=== PATIENT | female | born 1955 | race Caucasian/White ===

== ENCOUNTER 2017-07-03 14:06 | Emergency (ER) | payer OTHER, MEDICARE, SELFPAY | END 2017-07-03 16:39 | disposition home or self-care (01) | PROVIDERS: Emergency Provider Emergency Medicine; Family Provider Family Medicine; Visit Provider Emergency Medicine | DX: S32.020A Wedge compression fracture of second lumbar vertebra, initial encounter for closed fracture (principal); W01.0XXA Fall on same level from slipping, tripping and stumbling without subsequent striking against object, initial encounter; Y92.010 Kitchen of single-family (private) house as the place of occurrence of the external cause; I10 Essential (primary) hypertension; J44.9 Chronic obstructive pulmonary disease, unspecified; Z72.0 Tobacco use | CPT/HCPCS: 72131; 96372; 99283; J2405 ==

== ENCOUNTER → 2017-07-16 12:49 | Outpatient (CLI) | payer OTHER, MEDICARE, SELFPAY ==
--- NOTE | 2017-07-16 13:08 | XR_ITS ---
XR DEXA axial skeleton HISTORY: ITS.REASON: OSTEODPOROSIS ORDERING PHYSICIAN: Fito Leo MD PATIENT AGE: 62 years COMPARISON: None FINDINGS: The BMD measured at the left femoral neck is 0.778 g/cm squared with a T score of -1.9. This is considered Osteopenic according to the World Health Organization criteria. Fracture risk is Moderate. Treatment is advised. IMPRESSION: Osteopenia. Recommend follow-up exam July 2019
--- NOTE | 2017-07-16 13:23 | MR_ITS ---
MR lumbar spine wo con ORDERING PHYSICIAN: Fito Leo MD PATIENT AGE: 62 years INDICATION: Low back pain following injury, lumbar fracture evaluation, abnormal CT scan COMPARISON: CT scan of 07/03/2017 TECHNIQUE: Multiplanar multiecho sequences without contrast. FINDINGS: Spinal cord ends at the L1-L2 level. Degenerative disc disease T11-T12 with mild bulging disc with canal stenosis of 9 mm with minimal contour deformity along the internal aspect of the cord. T12-L1: Degenerative disc disease. L1-L2: Acute wedge compression changes involve the L2 vertebral body with loss of height anteriorly of approximately 30% with kyphosis at L1-L2 and mild retropulsion of the posterior superior aspect of L2 x 3 mm. Facet hypertrophic changes are present at this level as well with associated bulging disc with resultant moderate right lateral recess narrowing. The bulging disc is slightly eccentric toward the right abutting the cauda equina anteriorly and on the right. L2-L3: Mild bulging disc L3-L4: Mild origin disc along with facet and ligamentum hypertrophy with bilateral lateral recess narrowing L4-5: Minimal bulging disc with facet and ligamentum hypertrophy with mild bilateral lateral recess narrowing. L5-S1: Minimal bulging disc along facet ligamentum flavum hypertrophy. IMPRESSION: 1. Multilevel lower thoracic and lumbar spondylosis with bulging disc, degenerative disc disease, and facet and ligamentum hypertrophy. Please see above for detailed description at each level 2. Acute wedge compression changes involve the L2 vertebral body with loss of height anteriorly of approximately 30% with kyphosis at L1-L2 and mild retropulsion of the posterior superior aspect of L2 x 3 mm. Facet hypertrophic changes are present at this level as well with associated bulging disc with resultant moderate right lateral recess narrowing. The bulging disc is slightly eccentric toward the right abutting the cauda equina anteriorly and on the right.
== END ==
PROVIDERS: Family Provider Family Medicine; PCP Family Medicine; Visit Provider Family Medicine
DX: M80.80XD Other osteoporosis with current pathological fracture, unspecified site, subsequent encounter for fracture with routine healing (principal)
CPT/HCPCS: 72148; 77080

== ENCOUNTER → 2017-07-16 14:48 | Outpatient (POV) | payer OTHER, MEDICARE, SELFPAY ==
[2017-07-16 15:10] VITALS: BP 188/98; PULSE 88; RESP 20; O2SAT 89
--- NOTE | 2017-07-16 15:24 | HMH.PMCON ---
Assessment and Plan (1) Low back pain Current visit: Yes Status: Acute Qualifiers: Chronicity: acute Back pain laterality: bilateral Category: Medical Code(s): M54.5 - Low back pain (2) Compression fracture of L2 lumbar vertebra Current visit: Yes Status: Acute Qualifiers: Encounter type: initial encounter Fracture type: closed Qualified Code(s): S32.020A - Wedge compression fracture of second lumbar vertebra, initial encounter for closed fracture Category: Medical Code(s): S32.020A - Wedge compression fracture of second lumbar vertebra, initial encounter for closed fracture We will follow-up on her MRI and DEXA scan. We will follow up with her on Saturday and depending on results of these 2 studies well possibly planned for kyphoplasty of the L2 vertebral body. HPI - Data of Consult Patient: new to practice Consult date: 07/16/17 Requesting Physician: Sheng Mas MD Primary Care Provider: Fito Leo MD Family Provider: Fito Leo MD - Consult Narrative Reason for consult: Low back pain with compression fracture of L2 History of present illness: Ms. Balbuena is a 62 year old female who has some acute low back pain after a fall approximately [address] scan does show a compression fracture of L2 however given the lack of edema seen on the CT scan it was age indeterminate. Result of the CT scan are as follows. L2 vertebral. Superior endplate compression concavity. 40-50% loss of height centrally.. Age-indeterminate but I suspect recent given the abrupt angle of cortex at its anterior superior margin.. Clinical correlation required.. Would tend expect to see more edema and swelling for acute fracture. Patient has increasing pain over her low back. She also has a history of severe COPD with pulse ox of 89% on room air. She had her DEXA scan done this week and MRI done today. We do not have results of both of these. Pain score is an 8 out of 10. Most of her pain is concentrated to the low back. CC: Sheng Mas MD [facility] History I have reviewed the patient's past medical history: Yes Medical History: Reports:: Chronic Obstructive Pulmonary Disease (COPD) Denies:: Cancer, Diabetes Mellitus Type 1, Diabetes Mellitus Type 2, MRSA Other Surgeries: Yes: No Previous Surgery Amputation: No Fractures: No - *Social History Smoking Status: Current every day smoker Tobacco Type: cigarettes # Packs/Day (cigarettes): 2 Alcohol Intake: never Occupational Status: unemployed - Psychiatric History Expresses thoughts of harming self/others: None Suicide Plan Description: No Plan *Family Hx:: No significant family history Review of Systems - *Respiratory Reports shortness of breath, Reports shortness of breath with activity - *Musculoskeletal Reports back pain, Reports stiffness Meds Allergies Allergy/AdvReac Type Severity Reaction Status Date / Time No Known Allergies Allergy Unverified 07/03/17 14:17 Objective Vital signs: Pulse Resp BP Pulse Ox 88 20 188/98 89 L 07/16/17 15:10 07/16/17 15:10 07/16/17 15:10 07/16/17 15:10 - Routine Back/Spine/Pelvis Exam Back/Spine: Present: vertebral tenderness, pain with flexion - *Routine Neurological Exam Present: alert, oriented X3, normal reflexes, moving all extremities, normal tone Opioid Risk Tool - Opioid Risk Tool-Female Family hx alcohol abuse: N Family hx illegal drugs: N Family hx rx drug abuse: N Personal hx alcohol abuse: N Personal hx illegal drugs: N Personal hx rx drug abuse: N Hx of sexual abuse: N Mental health issues-ADD,OCD,Bipolar, etc: N Hx of depression: N
--- NOTE | 2017-07-16 15:27 | P.CONS_ITS ---
Assessment and Plan (1) Low back pain Current visit: Yes Status: Acute Qualifiers: Chronicity: acute Back pain laterality: bilateral Category: Medical Code(s): M54.5 - Low back pain (2) Compression fracture of L2 lumbar vertebra Current visit: Yes Status: Acute Qualifiers: Encounter type: initial encounter Fracture type: closed Qualified Code(s) : S32.020A - Wedge compression fracture of second lumbar vertebra, initial encounter for closed fracture Category: Medical Code(s): S32.020A - Wedge compression fracture of second lumbar vertebra, initial encounter for closed fracture We will follow-up on her MRI and DEXA scan. We will follow up with her on Saturday and depending on results of these 2 studies well possibly planned for kyphoplasty of the L2 vertebral body. HPI - Data of Consult Patient: new to practice Consult date: 07/16/17 Requesting Physician: Sheng Mas MD Primary Care Provider: Fito Leo MD Family Provider: Fito Leo MD - Consult Narrative Reason for consult: Low back pain with compression fracture of L2 History of present illness: Ms. Balbuena is a 62 year old female who has some acute low back pain after a fall approximately [address] scan does show a compression fracture of L2 however given the lack of edema seen on the CT scan it was age indeterminate. Result of the CT scan are as follows. L2 vertebral. Superior endplate compression concavity. 40-50% loss of height centrally.. Age-indeterminate but I suspect recent given the abrupt angle of cortex at its anterior superior margin.. Clinical correlation required.. Would tend expect to see more edema and swelling for acute fracture. Patient has increasing pain over her low back. She also has a history of severe COPD with pulse ox of 89% on room air. She had her DEXA scan done this week and MRI done today. We do not have results of both of these. Pain score is an 8 out of 10. Most of her pain is concentrated to the low back. CC: Sheng Mas MD [facility] History I have reviewed the patient's past medical history: Yes Medical History: Reports:: Chronic Obstructive Pulmonary Disease (COPD) Denies:: Cancer, Diabetes Mellitus Type 1, Diabetes Mellitus Type 2, MRSA Other Surgeries: Yes: No Previous Surgery Amputation: No Fractures: No - *Social History Smoking Status: Current every day smoker Tobacco Type: cigarettes # Packs/Day (cigarettes): 2 Alcohol Intake: never Occupational Status: unemployed - Psychiatric History Expresses thoughts of harming self/others: None Suicide Plan Description: No Plan *Family Hx:: No significant family history Review of Systems - *Respiratory Reports shortness of breath, Reports shortness of breath with activity - *Musculoskeletal Reports back pain, Reports stiffness Meds Allergies Allergy/AdvReac Type Severity Reaction Status Date / Time No Known Allergies Allergy Unverified 07/03/17 14:17 Objective Vital signs: Pulse Resp BP Pulse Ox 88 20 188/98 89 L 07/16/17 15:10 07/16/17 15:10 07/16/17 15:10 07/16/17 15:10 - Routine Back/Spine/Pelvis Exam Back/Spine: Present: vertebral tenderness, pain with flexion - *Routine Neurological Exam Present: alert, oriented X3, normal reflexes, moving all extremities, normal tone Opioid Risk Tool - Opioid Risk Tool-Female Family hx alcohol abuse: N Family hx illegal drugs: N Family hx rx drug
== END ==
PROVIDERS: Family Provider Family Medicine; PCP Family Medicine; Visit Provider Anesthesiology
DX: M54.5 Low back pain (principal); M48.56XA Collapsed vertebra, not elsewhere classified, lumbar region, initial encounter for fracture
CPT/HCPCS: 99202

== ENCOUNTER → 2017-07-19 13:01 | Outpatient (POV) | payer OTHER, MEDICARE, SELFPAY ==
[2017-07-19 13:29] VITALS: BP 144/101; PULSE 84; RESP 20; TEMP 36; O2SAT 93; BMI 29.2
--- NOTE | 2017-07-19 13:49 | HMH.PAINSOAP ---
[facility] Pain Management SOAP Note Subjective:: This patient is a pleasant 62-year-old white female who is following up on her compression fracture of the L2 vertebral body. This patient has now had her MRI and DEXA scan. The MRI does show acute wedge compression changes involving the L2 vertebral body with loss of height anteriorly of approximately 30% with kyphosis at L1-L2 and mild retropulsion of the posterior superior aspect of L2 ?3 mm. The DEXA scan also does show osteopenia. We will seek approval for kyphoplasty of the L2 vertebral body. I have explained the risk and benefits and answered all questions. The patient says that she still has acute pain of her low back and can hardly sleep. She is currently on pain medication prescribed by the ER physician however, given her severe COPD I am cautious prescribing more pain medication. I believe her only option is to complete kyphoplasty to help with her pain symptoms. Objective:: Alert and oriented ?3 no acute distress. Patient does have an antalgic gait. Motor strength of the lower extremities is 5/5. There is no gross sensory deficit. The patient does have tenderness over the lower lumbar spine. Assessment:: Degenerative disc disease of lumbar spine with acute L2 compression fracture Plan:: We will seek approval and plan on kyphoplasty of the L2 vertebral body. We will plan on this procedure on July 31.
--- NOTE | 2017-07-19 13:52 | P.CONS_ITS ---
[facility] Pain Management SOAP Note Subjective:: This patient is a pleasant 62-year-old white female who is following up on her compression fracture of the L2 vertebral body. This patient has now had her MRI and DEXA scan. The MRI does show acute wedge compression changes involving the L2 vertebral body with loss of height anteriorly of approximately 30% with kyphosis at L1-L2 and mild retropulsion of the posterior superior aspect of L2 ? 3 mm. The DEXA scan also does show osteopenia. We will seek approval for kyphoplasty of the L2 vertebral body. I have explained the risk and benefits and answered all questions. The patient says that she still has acute pain of her low back and can hardly sleep. She is currently on pain medication prescribed by the ER physician however, given her severe COPD I am cautious prescribing more pain medication. I believe her only option is to complete kyphoplasty to help with her pain symptoms. Objective:: Alert and oriented ?3 no acute distress. Patient does have an antalgic gait. Motor strength of the lower extremities is 5/5. There is no gross sensory deficit. The patient does have tenderness over the lower lumbar spine. Assessment:: Degenerative disc disease of lumbar spine with acute L2 compression fracture Plan:: We will seek approval and plan on kyphoplasty of the L2 vertebral body. We will plan on this procedure on July 31.
== END ==
PROVIDERS: Family Provider Family Medicine; PCP Family Medicine; Visit Provider Anesthesiology
DX: M51.36 Other intervertebral disc degeneration, lumbar region (principal)
CPT/HCPCS: 99212

== ENCOUNTER 2017-07-31 10:33 | Day surgery (SDC) | payer OTHER, MEDICARE, SELFPAY ==
[2017-07-30 12:38] VITALS: BMI 29.2
[2017-07-31 11:03] VITALS: BP 210/104; PULSE 81; RESP 18; TEMP 36.8; O2SAT 93
--- NOTE | 2017-07-31 11:35 | HMH.ANESCL ---
[facility] Anesthesia Checklist - Patient Identification Patient Identification: Arm Band, Verbal (Name & ) - Structural Data Admitted From: Home Planned Operative Procedure/s: kyphoplasty Consent for Planned Operative Procedure(s) Verified: Yes Verified Documents: Surgical Consent, History and Physical - Chart Verification Results Verified: None - Additional verifications Patient : No Anesthesia Reactions: No Hx Blood Transfusions: No Blood Transfusion Reaction: No Cephalosporin Allergy: No Previous Colonoscopy: No - Cardiovascular Assessment Heart Sounds: S1 & S2 Pulse Strength: Strong Pulse Rhythm: Regular Peripheral Edema: No - Airway Assessment C-Spine Mobility Assessed: Yes TMJ Mobility Assessed: Yes Dentition: Partials - Neurological Assessment Level of Consciousness: Awake, Alert, Appropriate Hx Seizures: No Numbness or tingling in extremities: No - Anesthesia Plan Anesthesia Risk discussed: Yes Anesthesia Plan: Verified ASA Class: III Anesthesia Type: MAC [facility] Anesthesia HX I have reviewed the patient's past medical history: Yes Medical History: Reports:: Chronic Obstructive Pulmonary Disease (COPD), Hypertension Denies:: Cancer, Diabetes Mellitus Type 1, Diabetes Mellitus Type 2, MRSA, Seizures Other Medical History: Reports: Sinus Problems. Denies: Blood Transfusion Reaction Other Surgeries: Yes: Cancer Surgery (cervical cancer), Dilation and Curettage, Other Amputation: No Fractures: No Comment: cervical cancer *Family Hx:: Diabetes
--- NOTE | 2017-07-31 11:38 | P.PN_ITS ---
[facility] Anesthesia Checklist - Patient Identification Patient Identification: Arm Band, Verbal (Name & ) - Structural Data Admitted From: Home Planned Operative Procedure/s: kyphoplasty Consent for Planned Operative Procedure(s) Verified: Yes Verified Documents: Surgical Consent, History and Physical - Chart Verification Results Verified: None - Additional verifications Patient : No Anesthesia Reactions: No Hx Blood Transfusions: No Blood Transfusion Reaction: No Cephalosporin Allergy: No Previous Colonoscopy: No - Cardiovascular Assessment Heart Sounds: S1 & S2 Pulse Strength: Strong Pulse Rhythm: Regular Peripheral Edema: No - Airway Assessment C-Spine Mobility Assessed: Yes TMJ Mobility Assessed: Yes Dentition: Partials - Neurological Assessment Level of Consciousness: Awake, Alert, Appropriate Hx Seizures: No Numbness or tingling in extremities: No - Anesthesia Plan Anesthesia Risk discussed: Yes Anesthesia Plan: Verified ASA Class: III Anesthesia Type: MAC [facility] Anesthesia HX I have reviewed the patient's past medical history: Yes Medical History: Reports:: Chronic Obstructive Pulmonary Disease (COPD), Hypertension Denies:: Cancer, Diabetes Mellitus Type 1, Diabetes Mellitus Type 2, MRSA, Seizures Other Medical History: Reports: Sinus Problems. Denies: Blood Transfusion Reaction Other Surgeries: Yes: Cancer Surgery (cervical cancer), Dilation and Curettage, Other Amputation: No Fractures: No Comment: cervical cancer *Family Hx:: Diabetes
--- NOTE | 2017-07-31 12:02 | SUR.PREOP ---
BP RECHECK IS 185/92, ADDITION HYDRAZINE 10MG GIVEN PER ORDER
[2017-07-31 13:04] VITALS: BP 192/93
[2017-07-31 15:32] VITALS: BP 115/75; PULSE 91; RESP 18; TEMP 36.1; O2SAT 93
[2017-07-31 15:45] VITALS: BP 159/93; PULSE 92; RESP 18; TEMP 36.4; O2SAT 95
[2017-07-31 16:32] VITALS: BP 143/99; PULSE 88; RESP 18; TEMP 36.4; O2SAT 95
--- NOTE | 2017-07-31 16:57 | P.OP_ITS ---
Date of procedure: 07/31/17 Pre-op Diagnosis:: L2 compression fracture Post-op diagnosis:: same Procedure performed:: L2 kyphoplasty Surgeon:: Sheng Mas MD CELL ATTENDANT HELPER:: Canelo Power Anesthesia: MAC Estimated blood loss (mL): 5 Clinical Note:: This patient is a pleasant 62-year-old white female who has an acute L2 compression fracture following injury. She has acute wedge compression changes on MRI involving the L2 vertebral body with loss of height anteriorly of approximately 30%. The DEXA scan also does show osteopenia. She presents for L2 kyphoplasty today. Operative findings:: None Operative note:: Informed consent was obtained and risks and benefits of the procedure was explained to the patient. Patient was taken to the OR and was placed prone on the procedure table. The patient was prepped and draped in sterile fashion. I used 2 C arms for AP and lateral view of the L2 vertebral body. The skin and subcutaneous tissues were anesthetized using lidocaine. Bone access trochars were placed through the LEFT and RIGHT pedicle and advanced into the vertebral body. After accessing the vertebral body a balloon was inserted first on the LEFT side followed by the RIGHT side with approximately 3 mL of contrast placed in each balloon with good insufflation. After adequate spread of contrast through the balloon, the balloons were deflated and cement was introduced first on the LEFT side with placement of approximately 3-1/2 mL of cement with good spread throughout the vertebral body and then on the RIGHT side was approximately 3 1/2 mL cement with good spread throughout the vertebral body. There was no extrusion of cement through the lateral torrez, anterior or posterior torrez. Also no extrusion through superior or inferior torrez. The bone access trochars were removed and dressing was placed. The patient was taken back to recovery in stable condition. She had good resolution of her back pain 5 minutes after the procedure. She tolerated the procedure well with no complications and was discharged home neurologically intact. Pathology: none sent Condition: stable Disposition: PACU (Follow-up this patient in 2 weeks in the pain clinic) Complications:: None
== END 2017-07-31 16:24 | disposition home or self-care (01) ==
LOC: OR 10:37
PROVIDERS: Family Provider Family Medicine; PCP Family Medicine; Visit Provider Anesthesiology
PROC: (CPT 22514; principal; 2017-07-31 12:15)
DX: S32.020A Wedge compression fracture of second lumbar vertebra, initial encounter for closed fracture (principal); M85.80 Other specified disorders of bone density and structure, unspecified site
CPT/HCPCS: 22514; 96374

== ENCOUNTER → 2017-09-09 09:00 | Outpatient (POV) | payer OTHER, MEDICARE, SELFPAY ==
[2017-09-09 09:16] VITALS: BP 214/119; PULSE 107; RESP 24; O2SAT 91; BMI 29.2
--- NOTE | 2017-09-09 09:40 | HMH.PAINSOAP ---
[facility] Pain Management SOAP Note Subjective:: Patient is a pleasant 62-year-old white female who presents today after having kyphoplasty. Patient had an acute L2 compression fracture. Patient had kyphoplasty procedure on July 31. Patient is doing extremely well at this time she stated that her pain prior to procedure was 10 out of 10 however today at 3 out of 10. Patient states that she has not seen her primary care physician yet for the discussion on how to treat her osteoporosis. ROS General: no recent weight change, no fever, no sleep disturbances Respiratory: Cough, COPD Cardiovascular/Peripheral Vascular: No chest pain, No palpitations, no edema Gastrointestinal: no incontinence, normal bowel movements reported Genitourinary: no incontinence Musculoskeletal: Lumbar back pain Psychiatric: normal mood/ affect, Neurological: [denies weakness in extremities], [denies balance issues] Objective:: Physical Exam General: Alert and oriented x3, no acute distress, pleasant and cooperative, [on room air] Lungs: Resps E/U, Symmetrical chest expansion, Eyes: PERRL Musculoskeletal: Flexion and extension of lumbar spine somewhat guarded secondary to pain, deep tendon reflexes normal, strength in upper and lower extremities [5/5], slightly antalgic gait noted Neurological: speech clear, oracle drm consultant equal, no gross sensory deficits Assessment:: Compression fracture of L2 Plan:: The patient and I had a discussion about her returning to her primary care physician for both her blood pressure and her osteoporosis. We will see her back on an as-needed basis she has been doing very well at this time with no current pain complaints or issues. This note was dictated using voice-recognition software may contain errors or omissions
--- NOTE | 2017-09-09 09:43 | P.CONS_ITS ---
[facility] Pain Management SOAP Note Subjective:: Patient is a pleasant 62-year-old white female who presents today after having kyphoplasty. Patient had an acute L2 compression fracture. Patient had kyphoplasty procedure on July 31. Patient is doing extremely well at this time she stated that her pain prior to procedure was 10 out of 10 however today at 3 out of 10. Patient states that she has not seen her primary care physician yet for the discussion on how to treat her osteoporosis. ROS General: no recent weight change, no fever, no sleep disturbances Respiratory: Cough, COPD Cardiovascular/Peripheral Vascular: No chest pain, No palpitations, no edema Gastrointestinal: no incontinence, normal bowel movements reported Genitourinary: no incontinence Musculoskeletal: Lumbar back pain Psychiatric: normal mood/ affect, Neurological: [denies weakness in extremities], [denies balance issues] Objective:: Physical Exam General: Alert and oriented x3, no acute distress, pleasant and cooperative, [ on room air] Lungs: Resps E/U, Symmetrical chest expansion, Eyes: PERRL Musculoskeletal: Flexion and extension of lumbar spine somewhat guarded secondary to pain, deep tendon reflexes normal, strength in upper and lower extremities [5/5], slightly antalgic gait noted Neurological: speech clear, agricultural chemicals inspector equal, no gross sensory deficits Assessment:: Compression fracture of L2 Plan:: The patient and I had a discussion about her returning to her primary care physician for both her blood pressure and her osteoporosis. We will see her back on an as-needed basis she has been doing very well at this time with no current pain complaints or issues. This note was dictated using voice-recognition software may contain errors or omissions
== END ==
PROVIDERS: Family Provider Family Medicine; PCP Family Medicine; Visit Provider Clinical Nurse Specialist Family Health
DX: M48.56XD Collapsed vertebra, not elsewhere classified, lumbar region, subsequent encounter for fracture with routine healing (principal)
CPT/HCPCS: 99212

== ENCOUNTER → 2018-01-16 13:02 | Outpatient (CLI) | payer OTHER, MEDICARE, SELFPAY ==
--- NOTE | 2018-01-16 13:05 | CT_ITS ---
CT lung screening EXAM: CT LUNG LOW DOSE WO CONTRAST HISTORY: 62-year-old female with 40 pack-year history asymptomatic ITS.REASON: CURRENT TOBACCO USE ORDERING PHYSICIAN: Fito Leo MD PATIENT AGE: 62 years COMPARISON: None TECHNIQUE: The exam was performed on a GE Light Speed [address] scanner using 2.90 mGy CTDI. A low dose helical CT CHEST was performed on a multi-detector scanner. All CT scans at the facility use one or more dose reduction, viz: automated exposure control; ma/kV adjustment per patient size (including targeted exams where dose is matched to indication; i.e. head); or iterative reconstruction technique. The LDCT was performed in a facility that meets the criteria for the screening program. Data regarding this exam was submitted to ACR which is an approved registry. The order for this exam indicates that it came as a result of a lung cancer screening counseling shard decision-making visit that included all the elements required of such a visit including smoking cessation. The radiologist interpreting this exam meets the CMS criteria for the LDCT lung cancer screening program. The exam is reported using the Lung-RADS classification scale and reported to the ACR registry. NOTE: This study was performed for the specific purposes of lung cancer screening and is not an alternative to diagnostic chest CT. RADIATION DOSE: CTDI vol(CT dose Index-volume) = 2.90mG DLP (Dose Length Product) = 96.79 mGcm FINDINGS: Centrilobular emphysematous changes are present with scattered areas of fibrosis/scarring. 2 mm noncalcified nodule right upper lobe laterally and inferiorly. Calcified granuloma base inferiorly. 3 mm subsolid nodule left upper lobe anteriorly. Incidental coronary artery calcifications. IMPRESSION: 1. Lung RADS Category: 2, benign 2. Other findings: Centrilobular emphysema. Coronary artery RECOMMENDATIONS: 12 month LDCT follow-up
== END ==
PROVIDERS: Family Provider Family Medicine; PCP Family Medicine; Visit Provider Family Medicine
DX: Z12.2 Encounter for screening for malignant neoplasm of respiratory organs (principal); Z87.891 Personal history of nicotine dependence

== ENCOUNTER → 2019-02-03 14:15 | Outpatient (CLI) | payer BC, MEDICARE, SELFPAY ==
--- NOTE | 2019-02-03 14:20 | CT_ITS ---
CT lung screening EXAM: CT LUNG LOW DOSE WO CONTRAST HISTORY: ITS.REASON: H/O NICOTINE DEPENDENCE ORDERING PHYSICIAN: Fito Leo MD PATIENT AGE: 63 years COMPARISON: 01/16/2018. TECHNIQUE: The exam was performed on a GE Light Speed [address] scanner using 3.0 mGy CTDI. A low dose helical CT CHEST was performed on a multi-detector scanner. All CT scans at the facility use one or more dose reduction, viz: automated exposure control, ma/kV adjustment per patient size (including targeted exams where dose is matched to indication, i.e. head), or iterative reconstruction technique. The LDCT was performed in a facility that meets the criteria for the screening program. Data regarding this exam was submitted to ACR which is an approved registry. The order for this exam indicates that it came as a result of a lung cancer screening counseling shard decision-making visit that included all the elements required of such a visit including smoking cessation. The radiologist interpreting this exam meets the CMS criteria for the LDCT lung cancer screening program. The exam is reported using the Lung-RADS classification scale and reported to the ACR registry. NOTE: This study was performed for the specific purposes of lung cancer screening and is not an alternative to diagnostic chest CT. RADIATION DOSE: CTDI vol(CT dose Index-volume) = 2.9mG DLP (Dose Length Product) = 110.2 mGcm FINDINGS: Indeterminate or Suspicious Lung Nodules(Category3-4B): None Indeterminate/Non-actionable Nodules(Category2): None Benign nodules(Category1)1 LUNG PARENCHYMA Emphysema: There are stable moderate emphysematous changes with small stable pneumatocele in the posterior segment right upper lobe. Airways disease: Not apparent Airway structures are patent. There are some stable small noncalcified benign-appearing pretracheal lymph nodes. The small 3 mm left upper lobe anterior nodule described on the prior exam is not visualized on this exam. The small subpleural lateral right upper lobe 2 mm nodule is stable. There is no pleural effusion or pneumothorax. OTHER ANATOMIC REGIONS Lymph Nodes: No enlarged lymph nodes evident. Scattered small nodes are present in the mediastinum and gloria Pleura: Unremarkable Cardiac: Unremarkable OTHER FINDINGS: No other pertinent findings evident IMPRESSION: 1. Lung RADS Category: 1 2. Other findings: COPD. RECOMMENDATIONS: Consider history of and size of the nodules which are stable and very small suggest follow-up in 1 year. Should be noted that the 3 mm left upper lobe nodule is not even seen on today's study.
== END ==
PROVIDERS: PCP Family Medicine; Visit Provider Family Medicine
DX: Z12.2 Encounter for screening for malignant neoplasm of respiratory organs (principal); Z87.891 Personal history of nicotine dependence

== ENCOUNTER → 2020-08-10 10:21 | Outpatient (CLI) | payer BC, MEDICARE, SELFPAY ==
[2020-08-11 08:11] LABS: Covid-19 Nasal PCR Sendout P&C Negative
== END ==
PROVIDERS: PCP Family Medicine; Visit Provider Family Medicine
DX: Z20.822 Contact with and (suspected) exposure to COVID-19 (principal)
CPT/HCPCS: U0004

== ENCOUNTER → 2021-05-12 07:46 | Outpatient (CLI) | payer MEDICARE, SELFPAY ==
--- NOTE | 2021-05-12 07:54 | CT_ITS ---
PROCEDURE: CT LUNG SCREENING CLINICAL INDICATION: H/O NICOTINE DEPENDENCE 1.5 pack per day times 30 years smoker COMPARISON: CT LUNGSCREEN CT lung screening from 02/03/2019 TECHNIQUE: The exam was performed on a GE Light Speed [address] scanner using 2.90 mGy CTDI. A low dose helical CT CHEST was performed on a multi-detector scanner. All CT scans at the facility use one or more dose reduction, viz: automated exposure control, ma/kV adjustment per patient size (including targeted exams where dose is matched to indication, i.e. head), or iterative reconstruction technique. The LDCT was performed in a facility that meets the criteria for the screening program. Data regarding this exam was submitted to ACR which is an approved registry. The order for this exam indicates that it came as a result of a lung cancer screening counseling shard decision-making visit that included all the elements required of such a visit including smoking cessation. The radiologist interpreting this exam meets the CMS criteria for the LDCT lung cancer screening program. The exam is reported using the Lung-RADS classification scale and reported to the ACR registry. NOTE: This study was performed for the specific purposes of lung cancer screening and is not an alternative to diagnostic chest CT. RADIATION DOSE: CTDI vol(CT dose Index-volume) = 2.90mG DLP (Dose Length Product) = mGcm FINDINGS: There is a new 1.4 cm subsolid nodule in the posterior segment right upper lobe with an 8 millimeter solid component (best seen on coronal reconstructions). There has also been mild interval increase in ground-glass opacity surrounding the pneumatocele in the posterior segment right upper lobe. No other nodules are identified. There is no pleural fluid or pneumothorax. Airways are clear. OTHER FINDINGS: Hepatic and splenic granulomas. There is a large hiatal hernia. Severe coronary atherosclerosis. Severe aortic atherosclerosis. Thoracolumbar spondylosis. IMPRESSION: Lung-RADS Category 4B Very Suspicious Follow-up: For new large nodules that develop on an annual repeat screening CT, a 1 month low dose lung screening CT may be obtained to address potentially infectious or inflammatory conditions. Otherwise, Lung-RADS recommendations are chest CT without contrast, PET-CT and/or tissue sampling. Additionally, there is severe coronary atherosclerosis, and referral to cardiology is recommended if not already obtained. Dictated by: Lorie Maddox MD 05/12/2021 09:50 Lorie Maddox MD in [facility] 05/12/2021 09:50
--- NOTE | 2021-05-12 07:54 | XR_ITS ---
PROCEDURE: XR DEXA AXIAL SKELETON CLINICAL HISTORY: POST MENOPAUSAL COMPARISON: [facility] DEXAAX XR DEXA axial skeleton from 07/16/2017 FINDINGS: The right hip BMD is 0.646 with a T-score of -1.8. The left hip BMD is 0.600 with a T-score of -2.2. The lumbar spine BMD is 1.199 with a T-score of 1.4. Previously the lowest density was in the left femoral neck with a T-score of -1.9 IMPRESSION: This patient is considered osteopenic according to the World Health Organization criteria. Bone density is between 10 and 25 percent below young normal. Fracture risk is moderate. Treatment is advised. Based on these results a follow-up exam is recommended in 2 year. Dictated by: Mikey Khan MD 05/15/2021 07:19 Mikey Khan MD in [facility] 05/15/2021 07:19
--- NOTE | 2021-05-12 07:55 | MM_ITS ---
PROCEDURE INFORMATION: Exam: MG Bilateral Screening 3D Mammography Exam date and time: 05/12/2021 7:55 AM Age: 66 years old Clinical indication: Encounter for screening mammogram for malignant neoplasm of breast TECHNIQUE: Imaging protocol: Bilateral screening tomosynthesis and 2D mammography including computer-aided detection (CAD) when performed. COMPARISON: No relevant prior studies available. FINDINGS: MAMMOGRAPHY: Breast composition: The breast tissue is heterogeneously dense, which may obscure small masses. Mass: None. Architectural distortion: None. Calcifications: No suspicious calcifications. Asymmetric density: None. Skin thickening: None. Axillary adenopathy: None. IMPRESSION: No mammographic evidence of malignancy. Annual screening is recommended unless otherwise clinically indicated. ASSESSMENT: BI-RADS Category 1: Negative
== END ==
PROVIDERS: PCP Family Medicine; Visit Provider Family Medicine
DX: Z12.31 Encounter for screening mammogram for malignant neoplasm of breast (principal); Z78.0 Asymptomatic menopausal state; Z87.891 Personal history of nicotine dependence; Z12.2 Encounter for screening for malignant neoplasm of respiratory organs; J44.9 Chronic obstructive pulmonary disease, unspecified; R60.0 Localized edema; I10 Essential (primary) hypertension
CPT/HCPCS: 71271; 77063; 77067; 77080; 93306

== ENCOUNTER → 2021-06-06 06:16 | Outpatient (CLI) | payer MEDICARE, SELFPAY ==
--- NOTE | 2021-06-06 | CA_ITS ---
APPROVED REPORT Exam: Pharmacologic Technologist: Kristin Chavez, Ht: 5 ft 1 in Wt: 157 lbs BSA: 1.70 m2 HR: 74 bpm BP: 136/66 mmHg Rhythm: NSR, slow R wave progression, low voltage QRS Indications: CP Medical History Medical History: HTN, Hyperlipidemia, Smoking Medications: Lisinopril,,,,, Gabapentin,,,,, Calcium,,,,, VitD,,,,, Cardiac Risk Factors: HTN, Hyperlipidemia, FHX of CAD, Smoking Stress Test Details Test: LEXISCAN HR Resting HR: 77 bpm Max Heart Rate (APMHR): 154.814446 bpm Max HR Achieved: 90 bpm Target HR (85% APMHR): 130.302949 bpm % of APMHR: 58.44 Recovery HR: 83 bpm BP Resting BP: 136/66 mmHg Max BP: 153/69 mmHg Recovery BP: 142.0/67.0 mmHg ECG Resting ECG: NSR, slow R wave progression, low voltage QRS Clinical Exercise duration: 04:05 min Highest Stage Achieved: Exercise capacity: 1.0 METs Stress ECG Conclusion During lexiscan pt experinced SOA, lightheadedness. No CP noted. No arrhythmias noted. No ST significant changes. Unremarkable lexiscan stress. Myoview images reported separately. Electronically signed by : Omar Moralez MD 06/06/2021 13:31:55
--- NOTE | 2021-06-06 06:22 | NM_ITS ---
APPROVED REPORT Exam: Nuclear Stress Test Indication: chest pain..short of breath Patient Location: Outpatient Stress Tech: Kristin MCCULLOUGH Tech:Maribel Sinha NICOLEArya RT(R)(N) Ht: 5 ft 1 in Wt: 156 lbs Bra Size: 38c HR: 74 bpm BP: 136/66 mmHg BSA: 1.70 m2 BMI: 29.4 History: chest pain..short of breath Procedure: Patient received a 0.4 mg of intravenous Lexiscan, resting heart rate 74 bpm, resting blood pressure 136/66 mmHg, with Lexiscan maximum heart rate achived was 83 bpm which is Less than 85 % of the maximum predicted heart rate and blood pressure was 153/69 mmHg. With Lexiscan, patient denied any complaint of chest pain. pt was unable to lay on her belly Electrocardiogram Resting electrocardiogram shows sinus rhythm, with Lexiscan there is less than 1.[address] segment depression noted from the baseline EKG. The EKG portion of the Lexiscan is nondiagnostic. Cardiac Stress and Resting SPECT Images: Cardiac Stress and Resting SPECT images were obtained using technetium 99m Myoview 30.5 mCi stress and 10.94 mCi at rest. Gated SPECT for analysis of segmental wall motion and calculation of the ejection fraction also done. Cardiac stress and resting SPECT images show uniform myocardial activity without segmental perfusion abnormality, computer derived ejection fraction is over 65% with no regional wall motion abnormality, right ventricle is normal size and contractility. Conclusion: 1. The EKG portion of the Lexiscan is nondiagnostic. 2. No scintigraphic evidence of reversible ischemia seen, compared right ejection fraction is over 65% with no regional wall motion abnormality, right ventricle is normal size and contractility. 3. Normal Lexiscan Myoview study. Electronically signed by : Omar Moralez MD 06/06/2021 21:28:33
== END ==
PROVIDERS: PCP Family Medicine; Visit Provider Family Medicine
DX: I20.8 Other forms of angina pectoris (principal); I10 Essential (primary) hypertension; F17.210 Nicotine dependence, cigarettes, uncomplicated
CPT/HCPCS: 78452; 93017; A9502; J2785

== ENCOUNTER → 2021-07-11 09:38 | Outpatient (CLI) | payer MEDICARE, SELFPAY ==
[2021-07-11 10:35] VITALS: PULSE 103; PULSE 99
== END ==
PROVIDERS: PCP Family Medicine; Visit Provider Internal Medicine Pulmonary Disease
DX: R06.00 Dyspnea, unspecified (principal)
CPT/HCPCS: 94060; 94618; 94640; 94727; 94729

== ENCOUNTER → 2021-07-13 12:01 | Outpatient (CLI) | payer MEDICARE, SELFPAY | PROVIDERS: PCP Family Medicine; Visit Provider Internal Medicine Pulmonary Disease | DX: R06.09 Other forms of dyspnea (principal); R91.1 Solitary pulmonary nodule; F17.210 Nicotine dependence, cigarettes, uncomplicated | CPT/HCPCS: 94762 ==

== ENCOUNTER → 2021-08-29 06:41 | Outpatient (CLI) | payer MEDICARE, SELFPAY ==
--- NOTE | 2021-08-29 06:44 | CT_ITS ---
FINAL REPORT TECHNIQUE: Axial CT images were performed from the lung apices through the upper abdomen. Coronal reformats were submitted. This study was performed with techniques to keep radiation doses as low as reasonably achievable (ALARA). Individualized dose reduction techniques using automated exposure control or adjustment of mA and/or kV according to the patient's size were employed. CLINICAL HISTORY: 3-month follow-up, Sep 03, 2021 prior lung screening 05-12-21 COMPARISON: 05/12/2021 FINDINGS: Beginning there is moderate coronary artery calcification. There is no axillary adenopathy. There is no hilar or mediastinal mass or adenopathy. Heart size is normal. There is no pericardial or pleural effusion. There is moderate emphysema and mild scarring. There is a stable, 8 mm posterior right upper lobe nodule. There has been interval increase in the surrounding groundglass opacity. No new mass or nodule is identified. There is a moderate hiatal hernia. There is a questionable small mass in the lateral segment of the left hepatic lobe. IMPRESSION: Stable, solid component posterior right upper lobe nodule but with increased groundglass opacity of uncertain etiology, neoplasm is not excluded. This could be further evaluated with PET CT if not already performed or additional follow-up CT in 3 months. Questionable small left hepatic lobe mass. If indicated, consider liver mass protocol CT or liver MRI. Reviewed, Interpreted and Dictated by Jose Sher III, MD Transcribed by Em Rodríguez Authenticated by Jose Sher III, MD on 08/29/2021 08:47:30 AM [facility]
== END ==
PROVIDERS: PCP Family Medicine; Visit Provider Internal Medicine Pulmonary Disease
DX: R91.8 Other nonspecific abnormal finding of lung field (principal)
CPT/HCPCS: 71250

== ENCOUNTER → 2021-10-17 10:17 | Outpatient (CLI) | payer MEDICARE, SELFPAY ==
--- NOTE | 2021-10-17 | US_ITS ---
FINAL REPORT CLINICAL HISTORY: LEG PAIN BILATERAL, SMOKER, HTN FINDINGS: ANKLE-BRACHIAL PRESSURE INDICES Pressure indices are as follows: RIGHT LOWER EXTREMITY: Ankle-brachial pressure index: 1.04 Comments: Normal LEFT LOWER EXTREMITY: Ankle-brachial pressure index: 1.15 Comments: Normal CONCLUSION: No evidence of significant obstructive peripheral vascular disease of the lower extremities Reviewed, Interpreted and Dictated by Jose Sher III, MD Transcribed by Deanna Vila Authenticated by Jose Sher III, MD on 10/17/2021 01:21:36 PM [facility]
== END ==
PROVIDERS: PCP Nurse Practitioner Family; Visit Provider Nurse Practitioner Family
DX: M79.604 Pain in right leg (principal); M79.605 Pain in left leg; R09.89 Other specified symptoms and signs involving the circulatory and respiratory systems
CPT/HCPCS: 93923

== ENCOUNTER → 2022-04-20 08:22 | Outpatient (CLI) | payer MEDICARE, SELFPAY ==
--- NOTE | 2022-04-20 08:22 | CT_ITS ---
FINAL REPORT TECHNIQUE: Axial CT images were performed from the lung apices through the upper abdomen. Coronal reformats were submitted. This study was performed with techniques to keep radiation doses as low as reasonably achievable (ALARA). Individualized dose reduction techniques using automated exposure control or adjustment of mA and/or kV according to the patient's size were employed. CLINICAL HISTORY: Nodule follow up COMPARISON: August 29, 2021 FINDINGS: There is no axillary adenopathy. There is no hilar mass or adenopathy. There are small mediastinal lymph nodes. There is wall thickening in the distal thoracic esophagus which is nonspecific but favor inflammatory. Heart size is normal. There is no pericardial or pleural effusion. Limited images of the upper abdomen are unremarkable. There is a persistent posteromedial right upper lobe nodule measuring 8 mm with surrounding ground-glass opacity. The surrounding ground-glass opacity has increased further since the prior exam. There is a new 6 mm lateral left lung base nodule well seen on image 56. There is a calcified granuloma in the right lower lobe. There is moderate to severe vascular calcification. IMPRESSION: Persistent posteromedial right upper lobe nodule with further increasing ground-glass opacity worrisome for neoplasm, may also be inflammatory. Recommend PET-CT if not already performed or an additional 3-6 month follow-up chest CT. New 6 mm left lower lobe nodule can be followed up at the time of follow-up CT. Nonspecific distal thoracic esophagus wall thickening, favor inflammatory. If indicated, could be further evaluated with upper endoscopy. Reviewed, Interpreted and Dictated by Jose Sher III, MD Transcribed by Deanna Vila Authenticated and [facility]
== END ==
LOC: RAD 08:22
PROVIDERS: PCP Nurse Practitioner Family; Visit Provider Internal Medicine Pulmonary Disease
DX: R91.8 Other nonspecific abnormal finding of lung field (principal)
CPT/HCPCS: 71250

== ENCOUNTER → 2022-04-21 09:35 | Outpatient (CLI) | payer MEDICARE, SELFPAY | PROVIDERS: PCP Nurse Practitioner Family; Visit Provider Ophthalmology | DX: Z01.812 Encounter for preprocedural laboratory examination (principal); Z20.822 Contact with and (suspected) exposure to COVID-19 | CPT/HCPCS: C9803; U0003; U0005 ==

== ENCOUNTER 2022-04-24 10:03 | Day surgery (SDC) | payer MEDICARE, SELFPAY ==
[2022-04-19 11:11] VITALS: BMI 30.2
[2022-04-24] VITALS (7 sets, daily range): BP systolic 158–199; BP diastolic 78–98; PULSE 93–105; RESP 18; TEMP 36.2–36.4; O2SAT 94–96
--- NOTE | 2022-04-24 12:30 | SUR.OPER ---
MD aware of pt's BP during procedure. Pt does state this to be her baseline and that her BP is poorly controlled.
== END 2022-04-24 13:00 | disposition home or self-care (01) ==
PROVIDERS: PCP Nurse Practitioner Family; Visit Provider Ophthalmology
DX: H25.812 Combined forms of age-related cataract, left eye (principal)
CPT/HCPCS: 66984; V2632

== ENCOUNTER 2022-05-08 09:41 | Day surgery (SDC) | payer MEDICARE, SELFPAY ==
[2022-05-03 16:32] VITALS: BMI 29.8
[2022-05-08] VITALS (8 sets, daily range): BP systolic 144–231; BP diastolic 77–105; PULSE 83–92; RESP 16–18; TEMP 36.1–36.6; O2SAT 95–100
== END 2022-05-08 13:03 | disposition home or self-care (01) ==
LOC: OR 09:42
PROVIDERS: PCP Nurse Practitioner Family; Visit Provider Ophthalmology
DX: H25.813 Combined forms of age-related cataract, bilateral (principal); Z79.899 Other long term (current) drug therapy
CPT/HCPCS: 66984; V2632

== ENCOUNTER 2022-10-25 12:14 | Observation (INO) | payer MEDICARE, SELFPAY ==
[2022-10-25] VITALS (19 sets, daily range): BP systolic 139–189; BP diastolic 81–164; PULSE 76–97; RESP 15–21; TEMP 36.6–36.8; O2SAT 91–100; BMI 27.6; BMI 27.4; BMI 23.8
--- NOTE | 2022-10-25 12:14 | ECG_ITS ---
APPROVED REPORT Exam: Resting ECG HR:94 bpm ECG Measurements Heart Rate 94 AXES ME 154 P 79 QRSd 86 QRS -70 QT 265 T 0 QTc 316 Conclusion SINUS RHYTHM WITH SINUS ARRHYTHMIA LEFT AXIS DEVIATION [QRS AXIS < -30] PATTERN CONSISTENT WITH PULMONARY DISEASE MODERATE ST DEPRESSION [0.05+ mV ST DEPRESSION] ABNORMAL ECG UNCONFIRMED REPORT Electronically signed by : Fito Connelly MD 10/26/2022 09:33:15
--- NOTE | 2022-10-25 12:32 | CT_ITS ---
FINAL REPORT CLINICAL HISTORY: confusion FINDINGS: Axial images of the head were obtained without contrast. Coronal reformatted images were also obtained. This study was performed with techniques to keep radiation doses as low as reasonably achievable (ALARA). Individualized dose reduction techniques using automated exposure control or adjustment of mA and/or kV according to the patient''s size were employed. There is generalized age-appropriate atrophy. Periventricular low-attenuation areas are seen consistent with moderate chronic ischemic changes. There are bilateral chronic lacunar infarcts. There is no evidence of intracranial hemorrhage or mass. There is no evidence of acute infarct. There is no evidence of shift of the midline structures. No skull abnormality is seen on the bone window images. IMPRESSION: Atrophy and moderate periventricular chronic ischemic changes. No acute intracranial abnormality identified. Reviewed, Interpreted and Dictated by Jose Sher III, MD Transcribed by mE Rodríguez Authenticated and [facility]
--- NOTE | 2022-10-25 12:32 | XR_ITS ---
FINAL REPORT CLINICAL HISTORY: confused, hypoxia, wheezing FINDINGS: SINGLE-VIEW CHEST The heart size is normal. The mediastinum is normal. There are mild bibasilar opacities, may represent atelectasis or pneumonia. There is no pneumothorax. IMPRESSION: Mild bibasilar atelectasis or pneumonia. Reviewed, Interpreted and Dictated by Jose Sher III, MD Transcribed by Em Rodríguez Authenticated and [facility]
[2022-10-25 12:44] LABS: Microscopic, Urine URINE MICROSCOPIC (MICROSCOPIC)
--- NOTE | 2022-10-25 12:44 | HMH.EDGENADL ---
Discharge Plan Disposition Patient Disposition: Admitted As Inpatient Condition: Good Chief Complaint: Altered Mental Status Prescriptions Prescriptions: No Action ipratropium-albuterol 0.5 mg-3 mg(2.5 mg base)/3 mL solution for nebulization 3 ml INHALATION QID PRN (Reason: COPD) gabapentin 600 MG tablet 600 mg PO TID lisinopril-hydrochlorothiazide 1 EACH tablet 1 tab PO DAILY montelukast 10 MG tablet 10 mg PO DAILY furosemide 20 MG tablet 20 mg PO DAILY bisoprolol fumarate 10 mg tablet 10 mg PO DAILY fluticasone propion-salmeterol [Advair Diskus] 250-50 mcg/dose blister with device 1 inh INHALATION BID Spiriva Respimat 2.5 mcg/actuation mist 2 inh inhalation DAILY Referrals Follow up/Referrals: Lacie Valderrama APRN [Primary Care Provider] - See instructions Clinical Impressions Clinical Impression: COPD exacerbation, Acute exacerbation of CHF (congestive heart failure) Instructions Patient Instructions: DI for Altered Mental Status Discharge ED Provider: Joe oRdriguez General Adult HPI General Chief complaint: Altered Mental Status Stated complaint: AMS Time Seen by Provider: 10/25/22 12:17 History of Present Illness HPI narrative: This is a 67-year-old female with history of COPD (supposed be on 1.5 L nasal cannula, does not use home oxygen), CAD, CHF, current tobacco use disorder, hypertension, hyperlipidemia presenting with altered mental status. Patient's states that she usually is able to ambulate at home, using a cane. For the past 2 days, patient has been laid up in bed, not taking any of her medications, progressively weak, short of breath, confused. Patient states that she has a headache and intermittent blurry vision, as well as shortness of breath that is her baseline but denies chest pain, nausea, vomiting, fevers, chills, lower extremity swelling, neck or back pain, falls, dysuria, hematuria, abnormal vaginal discharge or bleeding, diarrhea, sick contacts, or any other concerns. Headache is currently 7 out of 10, photophobic, posterior. Does not radiate. Related Data Home Medications Medication Instructions Recorded Confirmed furosemide 20 mg tablet 20 mg PO DAILY Edema 07/16/17 10/25/22 gabapentin 600 mg tablet 600 mg PO TID Pain 07/16/17 10/25/22 lisinopril 20 1 tab PO DAILY Hypertension 07/16/17 10/25/22 mg-hydrochlorothiazide 25 mg tablet montelukast 10 mg tablet 10 mg PO DAILY Hypertension 07/16/17 10/25/22 ipratropium 0.5 mg-albuterol 3 mg 3 ml inhalation QID PRN COPD 07/03/21 10/25/22 (2.5 mg base)/3 mL nebulization soln fluticasone 250 mcg-salmeterol 50 1 inh inhalation BID COPD 04/19/22 10/25/22 mcg/dose blistr powdr for inhalation (Advair Diskus) tiotropium bromide 2.5 2 inh inhalation DAILY COPD 05/03/22 10/25/22 mcg/actuation mist for inhalation (Spiriva Respimat) bisoprolol fumarate 10 mg tablet 10 mg PO DAILY Heart rate 10/25/22 10/25/22 Allergies Allergy/AdvReac Type Severity Reaction Status Date / Time No Known Allergies Allergy Verified 05/02/22 11:14 [facility] Disclaimer: The information contained in this section may have been updated after the patient was seen, as this information can be updated by other users. Medical History (Updated 10/25/22 @ 15:34 by Joe Rodriguez MD) Cervical cancer COPD (chronic obstructive pulmonary disease) COPD (chronic obstructive pulmonary disease) Dyspnea on exertion Incidental pulmonary nodule, greater than or equal to 8mm Nocturnal hypoxemia Pulmonary emphysema Smoking greater than 30 pack years Tobacco abuse counseling Tobacco abuse disorder Surgical History History of back surgery History of dilation and curettage Family History Other Diabetes Social History Smoking S
[2022-10-25 12:53] LABS: Appearance,Urine CLEAR (Clear); Blood, Urine TRACE-L (Negative); Color,Urine YELLOW (Yellow); Glucose,Urine (UA) Negative (Negative); Ketones,Urine TRACE (Negative); Leukocyte Esterase,Urine Negative (Negative); Nitrate,Urine Negative (Negative); Protein,Urine 1+ (Negative); Urobilinogen,Urine 0.2 EU/dl (0.2)
[2022-10-25 12:55] LABS: Chloride 80 mmol/L (98-107)
[2022-10-25 12:56] LABS: Basophils # 0.1 K/mm3 (0-0.2); Basophils % 0.7 % (0.1-2.0); Eosinophils % 0.5 % (0.1-12.0); Hematocrit 44.5 % (37.0-47.0); Hemoglobin 15.5 g/dL (12.2-16.2); Lymphocytes # 1.3 K/mm3 (0.7-4.5); Lymphocytes % 13.9 % (10-50); Mean Corpuscular HGB Conc 34.8 g/dL (31.8-35.4); Mean Corpuscular Hemoglobin 34.5 pg (27.0-31.2); Mean Corpuscular Volume 99.2 fl (81-99); Mean Platelet Volume 7.8 fl (7.4-10.4); Monocytes # 0.3 K/mm3 (0.1-1.0); Monocytes % 3.5 % (1.7-9.3); Neutrophils # 7.7 K/mm3 (1.8-7.8); Neutrophils % 81.5 % (37.0-80.0); Platelet Count 229 K/mm3 (142-424); Red Blood Count 4.48 M/mm3 (4.20-5.40); Red Cell Distribution Width 13.7 % (11.5-17.5); Sodium 132 mmol/L (136-145); White Blood Count 9.5 K/mm3 (4.8-10.8)
[2022-10-25 12:58] LABS: Alanine Aminotransferase 17 U/L (12-78); Aspartate Amino Transferase 35 U/L (14-36); Blood Urea Nitrogen 19 mg/dl (7-17); Creatinine Clearance Estimated 59 mL/min (50-200); Estimated Glomerular Filt Rate 62 ml/min (>60); GFR (African American) 76 ML/MIN (>60); Potassium 2.7 mmoL/L (3.5-5.1)
[2022-10-25 12:59] LABS: Albumin Level 4.3 g/dl (3.5-5.0); Albumin/Globulin Ratio 1.3 (1.1-1.8); Alkaline Phosphatase 77 U/L (38-126); Bilirubin,Total 0.6 mg/dl (0.2-1.3); Calcium 9.5 mg/dl (8.4-10.2); Globulin 3.3 g/dL (1.3-3.2); Glucose 138 mg/dl (74-100); Magnesium 1.1 mg/dl (1.6-2.3); Total Protein,Serum 7.6 g/dl (6.3-8.2)
--- NOTE | 2022-10-25 13:02 | PC.NURSE ---
pt gone to ct
[2022-10-25 13:06] LABS: Anion Gap 17.7 mEq/L (5-15); Carbon Dioxide 37 mmol/L (22.0-30.0)
[2022-10-25 13:08] LABS: NT Pro Brain Natriuretic Pep. 6370 pg/mL (0-125)
[2022-10-25 13:11] LABS: Troponin I 0.04 ng/ml (0.00-0.034)
[2022-10-25 13:12] LABS: Coronavirus 19, PCR Not Detected (NotDetected); Influenza A, PCR Not Detected (NotDetected); Influenza B, PCR Not Detected (NotDetected)
[2022-10-25 13:13] LABS: Lipase 588 U/L (23-300)
[2022-10-25 13:15] LABS: Lactic Acid 2.2 mmol/L (0.7-2.1)
[2022-10-25 13:23] LABS: ABG Base Excess 13.6 mmol/L (-2.4-2.3); ABG HCO3 36.3 mmhg (22.0-26.0); ABG Oxygen Saturation 88 % (90-100); ABG PCO2 44.8 mmhg (35.0-45.0); ABG PH 7.53 mmol/L (7.35-7.45); ABG PO2 51.5 mmhg (80-100); ABG TCO2 37.7 mmhg (23-27)
[2022-10-25 13:24] LABS: Allen's Test ACCEPTABLE; Oxygen ROOM AIR %; Source Right Radial
[2022-10-25 13:39] LABS: Bacteria,Urine Trace /lpf; Procalcitonin 0.069 ng/mL (0.0-2.0); RBC,Urine Occasional #/hpf (0-3); Squamous Epithelial Cell,Urine Occasional #/hpf (0-5)
[2022-10-25 13:40] LABS: Bilirubin,Urine Negative (Negative)
[2022-10-25 13:45] LABS: Amphetamine/Metha Screen,Urine Negative ng/ml (<1000)
[2022-10-25 13:46] LABS: Barbiturates Screen,Urine Negative ng/ml (<200); Benzodiazepines Screen,Urine Negative ng/ml (<200)
[2022-10-25 13:47] LABS: Cannabinoid Screen,Urine Positive ng/ml (<50)
[2022-10-25 13:48] LABS: Cocaine Screen,Urine Negative ng/ml (<300); Methadone Screen,Urine Negative ng/ml (<300)
[2022-10-25 13:49] LABS: Opiate Screen,Urine Negative ng/ml (<300)
[2022-10-25 13:50] LABS: Phencyclidine Screen,Urine Negative ng/ml (<25)
--- NOTE | 2022-10-25 14:36 | PC.NURSE ---
assisted pt with bed tracey and re positioned in bed call light @ bs
--- NOTE | 2022-10-25 14:43 | PC.NURSE ---
rounded on pt, family at bs, updated on poc via MD
--- NOTE | 2022-10-25 15:48 | PC.NURSE ---
Booth cath placed, urine culture placed for this cathed specimen
[2022-10-25 16:31] LABS: Troponin I 0.04 ng/ml (0.00-0.034)
--- NOTE | 2022-10-25 16:37 | EXP.HP ---
History of Present Illness *Admission Date: 10/25/22 *Reason for visit:: sob *History of present illness: This is a 67-year-old female with history of COPD (supposed be on 1.5 L nasal cannula, does not use home oxygen), CAD, CHF, current tobacco use disorder, hypertension, hyperlipidemia presenting with altered mental status.? Patient's states that she usually is able to ambulate at home, using a cane.? For the past 2 days, patient has been laid up in bed, not taking any of her medications, progressively weak, short of breath, confused.? Patient states that she has a headache and intermittent blurry vision, as well as shortness of breath that is her baseline but denies chest pain, nausea, vomiting, fevers, chills, lower extremity swelling, neck or back pain, falls, dysuria, hematuria, abnormal vaginal discharge or bleeding, diarrhea, sick contacts, or any other concerns.? Headache is currently 7 out of 10, photophobic, posterior.? Does not radiate. Hypertension fall patient currently has no concerns or complaints at this time. Answered all questions. She is breathing much better. She feels like she is urinating a lot of water. She is thirsty and requesting food. [facility] Disclaimer: The information contained in this section may have been updated after the patient was seen, as this information can be updated by other users. Medical History (Updated 10/25/22 @ 16:40 by Jackie Pitt MD) Cervical cancer COPD (chronic obstructive pulmonary disease) COPD (chronic obstructive pulmonary disease) Dyspnea on exertion Incidental pulmonary nodule, greater than or equal to 8mm Nocturnal hypoxemia Pulmonary emphysema Smoking greater than 30 pack years Tobacco abuse counseling Tobacco abuse disorder Surgical History History of back surgery History of dilation and curettage Family History Other Diabetes Social History Smoking Status: Current every day smoker tobacco type: cigarettes packs per day: 2 second hand exposure: Yes alcohol intake: current current occupational status: unemployed Travel in the last 8 weeks: None household members: spouse housing: house current occupational exposures/hazards: No Review of Systems Review of Systems Review of systems:: pertinent systems reviewed and negative unless documented below Meds Home Medications and Allergies Home Medications Medication Instructions Recorded Confirmed Type furosemide 20 mg tablet 20 mg PO DAILY Edema 07/16/17 10/25/22 History gabapentin 600 mg tablet 600 mg PO TID Pain 07/16/17 10/25/22 History lisinopril 20 1 tab PO DAILY Hypertension 07/16/17 10/25/22 History mg-hydrochlorothiazide 25 mg tablet montelukast 10 mg tablet 10 mg PO DAILY Hypertension 07/16/17 10/25/22 History ipratropium 0.5 mg-albuterol 3 mg 3 ml inhalation QID PRN COPD 07/03/21 10/25/22 History (2.5 mg base)/3 mL nebulization soln fluticasone 250 mcg-salmeterol 50 1 inh inhalation BID COPD 04/19/22 10/25/22 History mcg/dose blistr powdr for inhalation (Advair Diskus) tiotropium bromide 2.5 2 inh inhalation DAILY COPD 05/03/22 10/25/22 History mcg/actuation mist for inhalation (Spiriva Respimat) bisoprolol fumarate 10 mg tablet 10 mg PO DAILY Heart rate 10/25/22 10/25/22 History New Prescriptions to Start Prescriptions: Allergies Allergy/AdvReac Type Severity Reaction Status Date / Time No Known Allergies Allergy Verified 05/02/22 11:14 Exam Data for Last 24 hours Vital signs and Labs for Last 24 Hours: Temp Pulse Resp BP Pulse Ox 98.3 F 84 21 174/95 H 94 L 10/25/22 12:15 10/25/22 15:30 10/25/22 12:47 10/25/22 15:30 10/25/22 15:30 Laboratory Results - last 24 hr 10/25/22 12:25: Urine Color Yellow, Urine Appearance Clear, Urine pH 8.0, Ur Speci
[2022-10-25 16:41] LABS: Reflex Lactic Add Lactic Reflex
--- NOTE | 2022-10-25 16:43 | PC.NURSE ---
called house for admission on pt awaiting bed assignment
--- NOTE | 2022-10-25 17:07 | PC.NURSE ---
Attempted to call report; nurse in another room. WIll call back'
--- NOTE | 2022-10-25 17:28 | PC.NURSE ---
updated pt that report was being called to the nurse on medsurg and it shouldn't be much longer before they are moved to her room on second floor
[2022-10-25 17:29] LABS: Lactic Acid Follow Up (RFLX 1) 0.8 mmol/L (0.7-2.1)
[2022-10-25 19:22] LABS: Troponin I 0.04 ng/ml (0.00-0.034)
--- NOTE | 2022-10-25 20:10 | PC.NURSE ---
Med rec not completed, pt confused and not able to remember what medications she takes. Patient's not able to state what medications she takes as he stated he does not handle her medications
[2022-10-25 21:18] LABS: POC Glucose,Bedside 160 (70-110)
[2022-10-26] VITALS (14 sets, daily range): BP systolic 83–187; BP diastolic 46–104; PULSE 74–100; RESP 16–24; TEMP 36.3–36.8; O2SAT 90–96; BMI 23.9
--- NOTE | 2022-10-26 03:57 | PC.NURSE ---
PATIENT REMAINS ON 02 AT 1.5 LNC. 02 SATS 92%. CONFUSED. COULD NOT TELL ME HER NAME ETC... BUT DID KNOW GARCIA HER DAUGHTER. F/C TO [facility], LARGE AMTS UOP, CLEAR YELLOW.. SR ON TELEMETRY. OCCASSIONAL DRY COUGH NOTED. SON HAS STAYED AT THE BEDSIDE ALL NIGHT.
[2022-10-26 05:15] LABS: POC Glucose,Bedside 150 (70-110)
[2022-10-26 06:42] LABS: Chloride 83 mmol/L (98-107); Sodium 130 mmol/L (136-145)
[2022-10-26 06:45] LABS: Alanine Aminotransferase 14 U/L (12-78); Albumin Level 4.1 g/dl (3.5-5.0); Albumin/Globulin Ratio 1.4 (1.1-1.8); Alkaline Phosphatase 68 U/L (38-126); Anion Gap 12.8 mEq/L (5-15); Aspartate Amino Transferase 24 U/L (14-36); Basophils % 0.3 % (0.1-2.0); Bilirubin,Total 0.6 mg/dl (0.2-1.3); Blood Urea Nitrogen 23 mg/dl (7-17); Carbon Dioxide 37 mmol/L (22.0-30.0); Cholesterol 115 mg/dl (140-200); Creatinine Clearance Estimated 55 mL/min (50-200); Eosinophils % 0.2 % (0.1-12.0); Estimated Glomerular Filt Rate 55 ml/min (>60); GFR (African American) 67 ML/MIN (>60); Glucose 135 mg/dl (74-100); Lymphocytes # 1.1 K/mm3 (0.7-4.5); Lymphocytes % 11.8 % (10-50); Mean Corpuscular HGB Conc 33.3 g/dL (31.8-35.4); Mean Corpuscular Volume 99.2 fl (81-99); Mean Platelet Volume 7.1 fl (7.4-10.4); Monocytes # 0.4 K/mm3 (0.1-1.0); Monocytes % 3.8 % (1.7-9.3); Neutrophils % 83.8 % (37.0-80.0); Phosphorous 3.6 mg/dl (2.5-4.5); Platelet Count 231 K/mm3 (142-424); Red Blood Count 4.13 M/mm3 (4.20-5.40); Red Cell Distribution Width 13.7 % (11.5-17.5); Total Protein,Serum 7.1 g/dl (6.3-8.2); Triglycerides 69 mg/dl (30-150); VLDL Cholesterol 14 mg/dL (0-40); White Blood Count 9.5 K/mm3 (4.8-10.8)
[2022-10-26 06:46] LABS: Chol/HDL Ratio 2.1 (1-3.5); HDL Cholesterol 56 mg/dl (40-60); Magnesium 1.6 mg/dl (1.6-2.3)
[2022-10-26 06:49] LABS: Hemoglobin 13.7 g/dL (12.2-16.2)
[2022-10-26 06:56] LABS: Potassium 2.8 mmoL/L (3.5-5.1)
[2022-10-26 06:57] LABS: Direct LDL Cholesterol 42.03 mg/dL (100-129)
--- NOTE | 2022-10-26 06:57 | PC.NURSE ---
0655 LAB CALLED CRITICAL POTASSIUM OF 2.8. HOSPITALIST KENYON HARLEY NOTIFIED.
--- NOTE | 2022-10-26 09:58 | EXP.CARD.CON ---
History of Present Illness History of Present Illness Consult date: 10/26/22 Requesting physician: Jackie Pitt Chief complaint: SOA History of present illness: This is a 67-year-old white female with a known history of COPD, CHF, tobacco use, hypertension and hyperlipidemia presenting to the emergency department with altered mental status. The patient's reports that for the last several days she has not been herself. The patient's reports that she is usually able to ambulate in their home using a cane but for the last 2 days prior to admission the patient would not get out of the bed and she was not taking any of her medications. reports that she has been progressively more weak over the last several days and seemed to be a little bit short of breath at times. He states that she is very confused and losing her memory. I am really not able to get any review of systems or history from the patient. Any question I asked her she just says yes. She appears to be in no distress this morning and when asked if she feels better or has any complaints she just says yes with no explanation. Her reports that she has really only been answering yes to all questions for the last several days. He reports that she has not indicated that she has had any chest pain or pressure. He states that time she seems like she is a little short of breath but this is baseline for her. He states that she has a baseline cough as well. He denies her having any fevers or chills. He denies any lower extremity edema. He states that she has been on Lasix for about a year and her edema has resolved without medication. [facility] Disclaimer: The information contained in this section may have been updated after the patient was seen, as this information can be updated by other users. Medical History (Updated 10/26/22 @ 10:05 by Juliette Lazo APRN) Cervical cancer COPD (chronic obstructive pulmonary disease) COPD (chronic obstructive pulmonary disease) Dyspnea on exertion Elevated troponin Hypokalemia Incidental pulmonary nodule, greater than or equal to 8mm Nocturnal hypoxemia Pulmonary emphysema Smoking greater than 30 pack years Tobacco abuse counseling Tobacco abuse disorder Surgical History History of back surgery History of dilation and curettage Family History Other Diabetes Social History (Updated 10/25/22 @ 20:07 by Alice Mallory RN) Smoking Status: Current every day smoker tobacco type: cigarettes packs per day: 2 second hand exposure: Yes alcohol intake: current current occupational status: unemployed Travel in the last 8 weeks: None household members: spouse housing: house current occupational exposures/hazards: No Review of Systems Review of Systems Review of systems:: unable to obtain Exam Data for Last 24 hours Vital signs and Labs for Last 24 Hours: Temp Pulse Resp BP Pulse Ox 97.8 F 87 22 187/104 H 91 L 10/26/22 08:00 10/26/22 08:00 10/26/22 08:00 10/26/22 08:00 10/26/22 08:00 Laboratory Results - last 24 hr 10/25/22 12:25: Urine Color Yellow, Urine Appearance Clear, Urine pH 8.0, Ur Specific [place] 1.010, Urine Protein 1+, Urine Glucose (UA) Negative, Urine Ketones Trace, Urine Blood Trace-l, Urine Nitrate Negative, Urine Bilirubin Negative, Urine Urobilinogen 0.2, Ur Leukocyte Esterase Negative, Urine RBC Occasional, Urine WBC None, Ur Squamous Epith Cells Occasional, Urine Bacteria Trace 10/25/22 12:25: WBC 9.5, RBC 4.48, Hgb 15.5, Hct 44.5, MCV 99.2 H, MCH 34.5 H, MCHC 34.8, RDW 13.7, Plt Count 229, MPV 7.8, Neut % (Auto) 81.5 H, Lymph % (Auto) 13.9, [place] % (Auto) 3.5, Eos % (Auto) 0.5, Baso % (Auto) 0.7, Neut # (Auto) 7.7, Lymph # (Auto) 1.3, [place] # (Auto) 0.3, Eos # (Auto) 0.0, Baso # (Auto) 0.1 10/25/22 12:25: Sodium 132 L, Potassium 2.7 L*, Chloride 80 L, Ca
--- NOTE | 2022-10-26 10:59 | HMH.PHAINT1 ---
Pharmacy Intervention Comments: MEDICATION RECONCILIATION COMPLETED ON PATIENT USING EXTERNAL FILL HISTORY FROM PHARMACY AND LIST FROM PULMONOLOGY OFFICE. -DESTINY BERUMEND
--- NOTE | 2022-10-26 11:37 | PC.NURSE ---
courtesy tech note; rounded on pt, pt denied need to use the bathroom, need for a drink, and need to reposition. call light within reach, no further requests at this time. Torie Ortiz, SRNA
--- NOTE | 2022-10-26 13:49 | EXP.ACUTE.PN ---
Subjective *Date: 10/26/22 *Time: 13:49 Interval history: Feels better. Tremulous, with discussion with patient is drinking half bottle of whiskey every day has not had any in 3 tdays. Withdrawing Medical Exam Vital signs and Labs for Last 24 Hours: Vital Signs Temp Pulse Pulse Resp BP BP Pulse Ox 10/26/22 12:00 87 10/26/22 11:32 98.2 F 84 18 161/93 H 92 L 10/26/22 11:27 77 10/26/22 11:27 85 10/26/22 08:00 97.8 F 87 22 187/104 H 91 L 10/26/22 06:10 91 L 10/26/22 06:10 85 10/26/22 06:10 86 10/26/22 04:00 97.9 F 87 16 144/88 H 90 L 10/26/22 04:18 84 10/26/22 00:00 92 L 10/26/22 00:00 97.9 F 74 16 150/72 H 92 L 10/26/22 00:00 90 10/25/22 20:25 86 10/25/22 20:00 92 L 10/25/22 23:02 83 10/25/22 23:02 83 10/25/22 20:00 97.9 F 76 16 154/81 H 92 L 10/25/22 18:46 83 10/25/22 18:46 83 10/25/22 18:46 91 L 10/25/22 17:51 98.3 F 80 18 181/93 H 94 L 10/25/22 17:28 98.3 F 84 15 179/99 H 10/25/22 16:30 85 185/102 H 95 10/25/22 16:00 83 166/97 H 94 L 10/25/22 15:30 84 174/95 H 94 L 10/25/22 15:00 82 180/95 H 93 L 10/25/22 14:30 83 164/95 H 97 10/25/22 14:00 83 161/89 H 94 L Intake and Output 10/25/22 10/26/22 10/26/22 23:59 07:59 15:59 Intake Total 1000 / 1100 100 / 340 240 / 340 Output Total 1750 / 1750 200 / 200 Balance -750 / -650 -100 / 140 240 / 140 Intake: Intake, Oral Amount 240 / 240 Intake, Total IV Amount 1000 / 1100 100 / 100 KCl 10mEq/100ml 100 ml @ 100 100 / 100 mls/hr IV ONCE ONE Rx#:[id number] Output: Output, Urine Amount 1750 / 1750 200 / 200 Other: Number of Unmeasured Voids 1 1 Weight 62.823 kg 63.594 kg Patient Weight 10/26/22 23:59 Weight 63.594 kg Laboratory Results - last 24 hr 10/25/22 12:25: Urine Opiates Screen Negative, Urine Methadone Screen Negative, Ur Barbituates Screen Negative, Ur Phencyclidine Scrn Negative, Ur Amphetamines Screen Negative, U Benzodiazepines Scrn Negative, Urine Cocaine Screen Negative, U Marijuana (THC) Screen Positive H 10/25/22 12:57: SARS-CoV-2 (PCR) Not detected, Influenza A Untype (PCR) Not detected, Influenza Type B (PCR) Not detected 10/25/22 15:44: Troponin I 0.04 H 10/25/22 17:00: Lactate 0.8 10/25/22 18:40: Troponin I 0.04 H 10/25/22 21:11: POC Glucose 160 H 10/26/22 05:07: POC Glucose 150 H 10/26/22 06:15: WBC 9.5, RBC 4.13 L, Hgb 13.7 D, Hct 41.0, MCV 99.2 H, MCH 33.0 H, MCHC 33.3, RDW 13.7, Plt Count 231, MPV 7.1 L, Neut % (Auto) 83.8 H, Lymph % (Auto) 11.8, [place] % (Auto) 3.8, Eos % (Auto) 0.2, Baso % (Auto) 0.3, Neut # (Auto) 8.0 H, Lymph # (Auto) 1.1, [place] # (Auto) 0.4, Eos # (Auto) 0.0, Baso # (Auto) 0.0 10/26/22 06:15: Sodium 130 L, Potassium 2.8 L*, Chloride 83 L, Carbon Dioxide 37 H, Anion Gap 12.8, BUN 23 H, Creatinine 1.00, Estimated Creat Clear 55, Estimated GFR 55 L, Est GFR ( Amer) 67, Glucose 135 H, Calcium 9.0, Phosphorus 3.6, Magnesium 1.6 D, Total Bilirubin 0.6, AST 24 D, ALT 14, Alkaline Phosphatase 68, Total Protein 7.1, Albumin 4.1, Globulin 3.0, Albumin/Globulin Ratio 1.4, Triglycerides 69, Cholesterol 115 L, LDL Cholesterol Direct 42.03 L, VLDL Cholesterol 14, HDL Cholesterol 56, Cholesterol/HDL Ratio 2.1 I & O for Labs for Last 24 Hours: Intake & Output 10/23/22 10/24/22 10/25/22 10/26/22 23:59 23:59 23:59 23:59 Intake Total 1000 / 1100 340 / 340 Output Total 1750 / 1750 200 / 200 Balance -750 / -650 140 / 140 Weight 62.823 kg 63.594 kg Constitutional: Present no acute distress, disheveled and agitated; Absent combative Comment:: Oriented x1 tremulous Respiratory: Present normal respiratory effort Cardiac: Present Reg Rate and Rhythm GI: Present normal bowel sounds; Absent tenderness Extremities: Present normal inspection and full ROM Skin:
--- NOTE | 2022-10-26 15:38 | PC.NURSE ---
manual b/p [id number]. notified bhavesh daniel. admin 500ml NS @ 999ml/hr
--- NOTE | 2022-10-26 15:54 | PC.NURSE ---
courtesy tech note; [id number] rounded on pt, pt denied the need to void, need for a drink and need to reposition in bed. call light within reach, no further requests at this time. SHAILESH Renteria
[2022-10-26 16:59] LABS: POC Glucose,Bedside 137 (70-110)
--- NOTE | 2022-10-26 18:27 | PC.NURSE ---
pt has became more alert t/o shift. pt now alert to name, place, year. sat up in bed, ate supper, talking on the phone and able to carry on conversation. pt had one episode of hypotension, notified md. 500ml bolus admin with improved vs. last CIWA score 12. cb within reach, seizure pads on bed rails and bed alarm in place for pt safety. home meds in omni other meds given to to take home.
[2022-10-26 20:49] LABS: POC Glucose,Bedside 144 (70-110)
[2022-10-27] VITALS (9 sets, daily range): BP systolic 112–145; BP diastolic 57–77; PULSE 77–100; RESP 19–22; TEMP 36.8–36.9; O2SAT 90–95; BMI 24.3
--- NOTE | 2022-10-27 03:56 | PC.NURSE ---
PATIENT HAS RESTED WELL. MENTAL STATUS MUCH IMPROVED. A/O X 3. SPEECH SLOW SOME WORDS SLURRED. EXPIRATORY WHEEZES NOTED BILAT LUNG BRUSH. DRY COUGH PRESENT. NO EDEMA NOTED. DENIES PAIN/DISCOMFORT. CIWA SCORES 4.
[2022-10-27 05:24] LABS: POC Glucose,Bedside 143 (70-110)
[2022-10-27 06:43] LABS: Chloride 89 mmol/L (98-107); Potassium 3.8 mmoL/L (3.5-5.1); Sodium 132 mmol/L (136-145)
[2022-10-27 06:46] LABS: Alanine Aminotransferase 16 U/L (12-78); Albumin Level 3.4 g/dl (3.5-5.0); Albumin/Globulin Ratio 1.3 (1.1-1.8); Alkaline Phosphatase 52 U/L (38-126); Anion Gap 11.8 mEq/L (5-15); Aspartate Amino Transferase 21 U/L (14-36); Bilirubin,Total 0.4 mg/dl (0.2-1.3); Blood Urea Nitrogen 31 mg/dl (7-17); Carbon Dioxide 35 mmol/L (22.0-30.0); Creatinine Clearance Estimated 35 mL/min (50-200); Eosinophils # 0.1 K/mm3 (0.0-0.4); Estimated Glomerular Filt Rate 32 ml/min (>60); GFR (African American) 39 ML/MIN (>60); Globulin 2.6 g/dL (1.3-3.2); Lymphocytes # 1.8 K/mm3 (0.7-4.5); Mean Platelet Volume 7.5 fl (7.4-10.4)
[2022-10-27 06:47] LABS: Calcium 8.4 mg/dl (8.4-10.2); Glucose 120 mg/dl (74-100)
[2022-10-27 06:58] LABS: Basophils % 0.4 % (0.1-2.0); Eosinophils % 0.4 % (0.1-12.0); Hematocrit 37.2 % (37.0-47.0); Lymphocytes % 14.5 % (10-50); Mean Corpuscular HGB Conc 32.2 g/dL (31.8-35.4); Mean Corpuscular Hemoglobin 32.7 pg (27.0-31.2); Mean Corpuscular Volume 101.8 fl (81-99); Monocytes # 0.4 K/mm3 (0.1-1.0); Monocytes % 3.4 % (1.7-9.3); Neutrophils # 9.8 K/mm3 (1.8-7.8); Neutrophils % 81.3 % (37.0-80.0); Platelet Count 232 K/mm3 (142-424); Red Blood Count 3.65 M/mm3 (4.20-5.40)
--- NOTE | 2022-10-27 08:56 | EXP.DC.SUM ---
General Admission date:: 10/25/22 HPI HPI HPI: This is a 67-year-old female with history of COPD (supposed be on 1.5 L nasal cannula, does not use home oxygen), CAD, CHF, current tobacco use disorder, hypertension, hyperlipidemia presenting with altered mental status.? Patient's states that she usually is able to ambulate at home, using a cane.? For the past 2 days, patient has been laid up in bed, not taking any of her medications, progressively weak, short of breath, confused.? Patient states that she has a headache and intermittent blurry vision, as well as shortness of breath that is her baseline but denies chest pain, nausea, vomiting, fevers, chills, lower extremity swelling, neck or back pain, falls, dysuria, hematuria, abnormal vaginal discharge or bleeding, diarrhea, sick contacts, or any other concerns.? Headache is currently 7 out of 10, photophobic, posterior.? Does not radiate. Hypertension fall patient currently has no concerns or complaints at this time. Answered all questions. She is breathing much better. She feels like she is urinating a lot of water. She is thirsty and requesting food. Hospital Course Hospital Course Hospital Course: 67-year-old female presenting to the emergency department respiratory failure likely secondary to COPD versus CHF exacerbation that resulted from medication noncompliance.? The presentation seems most consistent with CHF exacerbation.? Patient was started on IV diuretics with improvement of her symptoms. During admission she developed encephalopathy and tremor secondary to alcohol withdrawal, reportedly she drinks half a bottle of whiskey per day for the last 20 years. She was started on CIWA protocol and given Ativan with improvement of her encephalopathy. She is requesting a home and continue drinking. Following diuresis she developed a mild JOSÉ MIGUEL, however her breathing is markedly improved and she feels back to her baseline. She has no concerning infectious symptoms at this time and her leukocytosis is likely reactive due to underlying stress from current illness and delirium tremens. It was discussed that she should hold her ROHIT inhibitor and diuretics for today. I encouraged p.o. intake and for her to resume her diuretics and medications tomorrow. She is understanding and agreeable plan. I discussed findings found on her CT chest regarding a pulmonary nodule that was concerning for neoplasm. I will be referring her to oncology for further evaluation. I recommend follow-up with her primary care physician and repeat BmP after discharge follow-up with cardiology as well Pulm nodule concerning for neoplasm Persistent posteromedial right upper lobe nodule with further increasing ground-glass opacity worrisome for neoplasm, may also be inflammatory.? Recommend PET-CT if not already performed or an additional 3-6 month follow-up chest CT.? ? New 6 mm left lower lobe nodule can be followed up at the time of follow-up CT.? ?? Exam Data for Last 24 hours Vital signs and Labs for Last 24 Hours: Temp Pulse Resp BP Pulse Ox 98.3 F 99 H 19 145/77 H 93 L 10/27/22 07:25 10/27/22 07:25 10/27/22 07:25 10/27/22 07:25 10/27/22 07:25 Laboratory Results - last 24 hr 10/26/22 16:50: POC Glucose 137 H 10/26/22 20:42: POC Glucose 144 H 10/27/22 05:02: POC Glucose 143 H 10/27/22 05:55: WBC 12.0 H D, RBC 3.65 L, Hgb 12.0 L D, Hct 37.2, MCV 101.8 H, MCH 32.7 H, MCHC 32.2, RDW 14.0, Plt Count 232, MPV 7.5, Neut % (Auto) 81.3 H, Lymph % (Auto) 14.5, [place] % (Auto) 3.4, Eos % (Auto) 0.4, Baso % (Auto) 0.4, Neut # (Auto) 9.8 H, Lymph # (Auto) 1.8, [place] # (Auto) 0.4, Eos # (Auto) 0.1, Baso # (Auto) 0.0 10/27/22 05:55: Sodium 132 L, Potassium 3.8 D, Chloride 89 L, Carbon Dioxide 35 H, Anion Gap 11.8, BUN 31 H D, Creatinine 1.60 H D, Estimated Creat Clear 35, Estimated GFR 32 L, Est GFR ( Amer) 39 L D, Glucose 120 H, Calcium 8.4, Total Bilirubin 0.4, AST 21, ALT 16, Alkaline Phospha
--- NOTE | 2022-10-27 10:02 | HMH.PHAINT1 ---
Pharmacy Intervention Comments: DISCHARGE MEDICATION COUNSELING PROVIDED. DISCUSSED HOLDING GABAPENTIN, LISINOPRIL/HCTZ, AND FUROSEMIDE UNTIL TOMORROW, START FOLIC ACID (SUPPLEMENT, DAILY, TAKE WITH OR WITHOUT FOOD, MAY CAUSE FLUSHING/SKIN REDNESS) AND THIAMINE (SUPPLEMENT, DAILY, TAKE WITH OR WITHOUT FOOD, MAY CAUSE FLUSHING/SKIN REDNESS). PATIENT AND VERBALIZED NO QUESTIONS AT THIS TIME.
--- NOTE | 2022-10-29 15:30 | CARE MANAGER ---
Contacted patient related to hospital discharge. She states she feels much better. She does have the new meds prescribed. She made a follow up with Lacie Valderrama for next week. I also provided her with Dr. Miner's name and phone number to make follow up appointment. Denies questions or concerns. FIGUEROA Metcalf
== END 2022-10-27 11:05 | disposition home or self-care (01) ==
LOC: ER 15:34 → 2ND 18:28
PROVIDERS: Admitting Provider Student in an Organized Health Care Education/Training Program; Emergency Provider Emergency Medicine; PCP Nurse Practitioner Family; Visit Provider Student in an Organized Health Care Education/Training Program
DX: J44.1 Chronic obstructive pulmonary disease with (acute) exacerbation (principal); F17.210 Nicotine dependence, cigarettes, uncomplicated; R09.02 Hypoxemia; I11.0 Hypertensive heart disease with heart failure; I50.9 Heart failure, unspecified; E87.6 Hypokalemia; F10.10 Alcohol abuse, uncomplicated; Z79.899 Other long term (current) drug therapy; Z20.822 Contact with and (suspected) exposure to COVID-19
CPT/HCPCS: G0378; 36415; 51702; 70450; 71045; 80053; 80061; 80305; 81001; 82803; 82962; 83605; 83690; 83735; 83880; 84100; 84145; 84484; 85025; 87040; 87086; 93005; 93306; 94640; 94760; 99285; C9803; J3475; U0003; U0005

== ENCOUNTER → 2022-10-31 06:39 | Outpatient (CLI) | payer MEDICARE, SELFPAY ==
--- NOTE | 2022-10-31 06:40 | CT_ITS ---
FINAL REPORT TECHNIQUE: Axial images were obtained from the lung apex to the mid abdomen by computed tomography. Coronal reformatted images were obtained. This study was performed with techniques to keep radiation doses as low as reasonably achievable, (ALARA). Individualized dose reduction techniques using automated exposure control or adjustment of mA and/or kV according to the patient''s size were employed. CLINICAL HISTORY: 6 mth F/U lung nodule COMPARISON: 04/20/2022 FINDINGS: There is no axillary mass or adenopathy. There are multiple borderline mediastinal nodes. Heart size is normal. There is no pericardial or pleural effusion. There is moderate emphysema. Again noted is an 8 mm posterior medial right upper lobe nodule with surrounding gland glass opacity. The ground-glass opacity has further increased in size, now measures 29 mm and was 19 mm. There are worsening bibasilar pulmonary opacities including right base nodular opacities. Infectious/inflammatory is favored over neoplasm. Lateral left lung base nodule seen on prior exam has improved. Limited images of the upper abdomen demonstrate a small hiatal hernia. There are diffuse vascular calcifications. IMPRESSION: Worsening ground-glass surrounding posterior medial right upper lobe nodule worrisome for neoplasm but could be infectious/inflammatory. Improved lateral left lung base nodule. Worsening bibasilar opacities, favor inflammatory. Small but worsening hiatal hernia. Reviewed, Interpreted and Dictated by Jose Sher III, MD Transcribed by Josee Smith Authenticated and . [facility]
== END ==
LOC: RAD 06:40
PROVIDERS: PCP Nurse Practitioner Family; Visit Provider Internal Medicine Pulmonary Disease
DX: R91.8 Other nonspecific abnormal finding of lung field (principal)
CPT/HCPCS: 71250

== ENCOUNTER → 2023-01-01 09:59 | Outpatient (CLI) | payer MEDICARE, SELFPAY ==
--- NOTE | 2023-01-01 10:04 | XR_ITS ---
FINAL REPORT TECHNIQUE: 3 views CLINICAL HISTORY: DORSALGIA, thoracic pain x 1 wk, NKT COMPARISON: None FINDINGS: There is minimal loss of height of the T11 vertebral body at the superior endplate. There is no malalignment. There are no significant degenerative changes. No paraspinous masses are noted. IMPRESSION: No acute process. Minimal loss of height of the T11 vertebral body superiorly. Reviewed, Interpreted and Dictated by Eliel Moreno MD Transcribed by Lissa Renee Authenticated and [facility]
--- NOTE | 2023-01-01 10:04 | XR_ITS ---
FINAL REPORT TECHNIQUE: 5 views CLINICAL HISTORY: LBP x 1 wk, NKT FINDINGS: There is approximately 40% compression of the superior endplate of L2. There is high density present in the L2 vertebral body indicating a prior kyphoplasty. Anterior osteophytes are present at multiple levels. There is no malalignment. Diffuse vascular calcifications are present. IMPRESSION: 40% compression of the superior endplate of L2 with a prior kyphoplasty. Reviewed, Interpreted and Dictated by Eliel Moreno MD Transcribed by Lissa Renee Authenticated and [facility]
== END ==
PROVIDERS: PCP Nurse Practitioner Family; Visit Provider Nurse Practitioner Family
DX: M54.6 Pain in thoracic spine (principal); M54.50 Low back pain, unspecified
CPT/HCPCS: 72072; 72110

== ENCOUNTER → 2023-01-22 12:43 | Outpatient (CLI) | payer MEDICARE, SELFPAY ==
--- NOTE | 2023-01-22 12:48 | MR_ITS ---
FINAL REPORT CLINICAL HISTORY: .MID AND LOW BACK PAIN FINDINGS: Multiplanar MR imaging of the thoracic spine was performed without contrast. On the sagittal T2-weighted images, disc degeneration is seen throughout. There is a moderate, acute T11 compression fracture. There are endplate changes at multiple levels. The vertebral alignment is normal. The thoracic spinal cord has an unremarkable appearance without evidence of mass, edema or syrinx. On the axial images, mild disc bulges and small osteophytes are seen at multiple levels. There is a small central T11-12 disc protrusion with mild central canal stenosis measuring 9 mm. No paraspinous soft tissue abnormality is identified. IMPRESSION: Acute T11 compression fracture. Small central T11-12 disc protrusion with mild central canal stenosis. Reviewed, Interpreted and Dictated by Jose Sher III, MD Transcribed by Em Rodríguez Authenticated and [facility]
--- NOTE | 2023-01-22 12:48 | MR_ITS ---
FINAL REPORT CLINICAL HISTORY: .MID AND LOW BACK PAIN FINDINGS: Multiplanar MR imaging of the lumbar spine was performed without contrast. On the sagittal T2-weighted images, disc degeneration is seen at multiple levels. The vertebral alignment is normal. There is a moderate chronic L2 compression fracture with changes of kyphoplasty. The conus has an unremarkable appearance. T12-L1: An annular bulge is present. L1-2: There is an annular bulge, facet arthropathy and vertebral osteophytes. There is mild right neural foraminal narrowing. L2-3: There is an annular bulge and facet arthropathy. There is mild bilateral neural foraminal narrowing. L3-4: There is an annular bulge and facet arthropathy. There is mild bilateral neural foraminal narrowing. L4-5: There is an annular bulge and facet arthropathy. There is a small left foraminal disc protrusion. There is mild right and moderate left neural foraminal narrowing. L5-S1: There is an annular bulge with facet arthropathy. There is mild left neural foraminal narrowing. IMPRESSION: Small left foraminal disc protrusion at L4-L5 without significant central canal stenosis. Multilevel areas of neural foraminal narrowing and degenerative disc disease. Moderate chronic L2 compression fracture with changes of kyphoplasty. Reviewed, Interpreted and Dictated by Jose Sher III, MD Transcribed by Jax Ocampo Authenticated and . [facility]
== END ==
LOC: RAD 12:44
PROVIDERS: PCP Nurse Practitioner Family; Visit Provider Nurse Practitioner Family
DX: M54.50 Low back pain, unspecified (principal); M54.6 Pain in thoracic spine; M40.00 Postural kyphosis, site unspecified
CPT/HCPCS: 72146; 72148; 76376

== ENCOUNTER → 2023-02-14 10:12 | Outpatient (CLI) | payer MEDICARE, SELFPAY ==
--- NOTE | 2023-02-14 11:01 | ECG_ITS ---
APPROVED REPORT Exam: Resting ECG HR:62 bpm ECG Measurements Heart Rate 62 AXES MD 151 P 22 QRSd 91 QRS -66 QT 428 T 0 QTc 434 Conclusion SINUS RHYTHM LOW QRS VOLTAGE [QRS DEFLECTION < 0.5/1.0 mV IN LIMB/CHEST LEADS] PATTERN CONSISTENT WITH PULMONARY DISEASE INFERIOR MYOCARDIAL INFARCTION , PROBABLY OLD [40+ ms Q WAVE AND/OR ST/T ABNORMALITY IN II/aVF] ABNORMAL ECG UNCONFIRMED REPORT Electronically signed by : Fito Connelly MD 02/15/2023 17:45:24
[2023-02-14 11:02] LABS: Basophils % 0.5 % (0.1-2.0); Eosinophils # 0.1 K/mm3 (0.0-0.4); Eosinophils % 1.1 % (0.1-12.0); Hemoglobin 15.5 g/dL (12.2-16.2); Lymphocytes # 1.9 K/mm3 (0.7-4.5); Mean Corpuscular HGB Conc 31.7 g/dL (31.8-35.4); Mean Corpuscular Hemoglobin 32.8 pg (27.0-31.2); Mean Corpuscular Volume 103.5 fl (81-99); Mean Platelet Volume 7.5 fl (7.4-10.4); Monocytes # 0.4 K/mm3 (0.1-1.0); Monocytes % 4.5 % (1.7-9.3); Neutrophils # 5.9 K/mm3 (1.8-7.8); Neutrophils % 70.9 % (37.0-80.0); Platelet Count 245 K/mm3 (142-424); Red Blood Count 4.73 M/mm3 (4.20-5.40); Red Cell Distribution Width 14.1 % (11.5-17.5); White Blood Count 8.3 K/mm3 (4.8-10.8)
[2023-02-14 11:44] LABS: Blood Urea Nitrogen 14 mg/dl (7-17); Calcium 9.4 mg/dl (8.4-10.2); Carbon Dioxide 33 mmol/L (22.0-30.0); Chloride 83 mmol/L (98-107); Estimated Glomerular Filt Rate 62 ml/min (>60); GFR (African American) 76 ML/MIN (>60); Glucose 99 mg/dl (74-100); Sodium 124 mmol/L (136-145)
== END ==
LOC: LAB 10:21
PROVIDERS: PCP Nurse Practitioner Family; Visit Provider Orthopaedic Surgery
DX: Z01.818 Encounter for other preprocedural examination (principal)
CPT/HCPCS: 36415; 80048; 85025; 93005

== ENCOUNTER 2023-07-22 08:44 | Outpatient (CLI) | payer MEDICARE, SELFPAY ==
--- NOTE | 2023-07-22 09:07 | XR_ITS ---
FINAL REPORT CLINICAL HISTORY: Osteoporosis screening COMPARISON: 05/12/2021 FINDINGS: Using L1-4, the bone mineral density of the spine is 1.482 g/cm2, corresponding to T-score of 4.0, within normal limits but likely falsely elevated secondary to hypertrophic changes. Previously 1.199 g/cm? with T-score of 1.4. Using the left hip, the bone mineral density of the femoral neck is 0.657 g/cm2, corresponding to a T-score of -1.7, consistent with low bone density. Previously 0.600 g/cm? with T-score of -2.2. Using the right hip, the bone mineral density of the femoral neck is 0.697 g/cm2, corresponding to a T-score of -1.4, consistent with low bone density. Previously 0.646 g/cm? with T-score of -1.8. FRAX 10 year fracture risk is 3.8% for a hip fracture and 13% for a major osteoporotic fracture. NOTE: T-score: Standard deviation compared with peak bone mass of young adult mean. *Following the recommendations of the International Society of Bone densitometry, classification of hip BMD is based on the lower of two T-scores; total hip or femoral neck. IMPRESSION: Diminished bone mineral density consistent with low bone density. Reviewed, Interpreted and Dictated by Jose Sher III, MD Transcribed by Josee Smith Authenticated and [facility]
== END 2023-07-22 23:59 ==
LOC: RAD 08:45
PROVIDERS: PCP Nurse Practitioner Family; Visit Provider Nurse Practitioner Family
DX: M85.89 Other specified disorders of bone density and structure, multiple sites (principal)
CPT/HCPCS: 77080

== ENCOUNTER 2023-08-29 16:07 | Emergency (ER) | payer MEDICARE, SELFPAY ==
[2023-08-29] VITALS (9 sets, daily range): BP systolic 148–167; BP diastolic 74–88; PULSE 64–86; RESP 18–20; TEMP 36.5; O2SAT 89–95; BMI 21.2
--- NOTE | 2023-08-29 16:36 | ED_ITS ---
Discharge Plan Disposition Patient Disposition: Home, Self-Care Chief Complaint: Weakness Prescriptions Prescriptions: No Action ipratropium-albuterol 0.5 mg-3 mg(2.5 mg base)/3 mL solution for nebulization 3 ml INHALATION QIDP PRN (Reason: Shortness Of Breath) bisoprolol fumarate 10 mg tablet 10 mg PO DAILY 30 Days Qty: 30 2RF gabapentin 600 MG tablet 600 mg PO TID Hold Instructions: Resume on 10/28/22. montelukast 10 MG tablet 10 mg PO PM furosemide 20 MG tablet 20 mg PO DAILY Hold Instructions: Resume on 10/28/22. lisinopril-hydrochlorothiazide 20-25 mg tablet 1 tab PO BID Hold Instructions: Resume on 10/28/22. folic acid 1 mg Tablet 1 mg PO DAILY Qty: 30 3RF thiamine mononitrate (vit B1) 100 mg Tablet 100 mg PO DAILY 30 Days Qty: 30 3RF fluticasone propion-salmeterol [Advair Diskus] 250-50 mcg/dose blister with device 1 inh INHALATION BID Spiriva Respimat 2.5 mcg/actuation mist 2 inh inhalation DAILY Referrals Follow up/Referrals: Provider,Yasir, [Referring] - See instructions Ghulam Renteria MD [Staff Physician] - See instructions Srini Gan MD [Physician] - See instructions Activity Restrictions/Add. Instructions Additional Instructions/Restrictions: Follow-up with pulmonology and oncology, their information has been listed here. Call your family doctor to establish care for this visit to the emergency department and schedule follow-up within 48 hours to ensure improvement. If you have any worsening of your condition or any other concerning signs or symptoms, return to the emergency department or your primary care doctor for further evaluation. Clinical Impressions Clinical Impression: Acute exacerbation of chronic obstructive pulmonary disease, Generalized weakness, Chronic hyponatremia, Acute hypokalemia, Hypomagnesemia Discharge ED Provider: Joe Rodriguez General Adult HPI General Chief complaint: Weakness Stated complaint: soa Time Seen by Provider: 08/29/23 16:13 Mode of Arrival: Ambulatory Source of Information: Spouse Limitations: No Limitations Description of Symptoms (Recalled from ER Triage Doc. by RN): c/o legs shaky, weak and soa since this morning. History of Present Illness HPI narrative: 68-year-old female history of hypertension, hyperlipidemia, PAD, CAD, CHF, tobacco use disorder, COPD on 2 L nasal cannula at night presenting with generalized weakness. States that she has been feeling generalized weakness and bilateral leg shaking with exertion since this morning. No recent injuries. No chest pain, nausea vomiting, diaphoresis, fevers or chills. No urinary symptoms, cough, unilateral deficits, upper extremity deficits, or any other concerns. Called EMS to bring her to the emergency department for further evalu ation. Related Data Home Medications Medication Instructions Recorded Confirmed furosemide 20 mg tablet 20 mg PO DAILY Fluid 07/16/17 10/25/22 gabapentin 600 mg tablet 600 mg PO TID Pain 07/16/17 10/25/22 montelukast 10 mg tablet 10 mg PO PM Allergy symptoms 07/16/17 10/26/22 ipratropium 0.5 mg-albuterol 3 mg 3 ml inhalation QIDP PRN Shortness 07/03/21 10/26/22 (2.5 mg base)/3 mL nebulization Of Breath soln fluticasone 250 mcg-salmeterol 50 1 inh inhalation BID COPD 04/19/22 10/25/22 mcg/dose blistr powdr for inhalation (Advair Diskus) tiotropium bromide 2.5 2 inh inhalation DAILY COPD 05/03/22 10/25/22 mcg/actuation mist for inhalation (Spiriva Respimat) lisinopril 20 1 tab PO BID Hypertension 10/26/22 10/26/22 mg-hydrochlorothiazide 25 mg tablet Previous Rx's Medication Instructions Recorded folic acid 1 mg tablet 1 mg PO DAILY #30 tabs 10/27/22 thiamine mononitrate (vit B1) 100 100 mg PO DAILY 30 days #30 tabs 10/27/22 mg tablet bisoprolol fumarate 10 mg tablet 10 mg PO DAILY Heart rate 30 days 04/30/23 #30 tabs Allergies Allergy/AdvReac Type Severity Reaction Status Date / Time No Known Allergies Allergy Verified 05/02/22 11:14 [facility] Disclaimer: The information contained in this section may have been updated after the patient was seen, as this information can be updated by other users. Medical History (Updated 08/29/23 @ 20:08 by Joe Rodriguez MD) Cervical cancer COPD (chronic obstructive pulmonary disease) COPD (chronic obstructive pulmonary disease) Dyspnea on exertion Elevated troponin Hypokalemia Incidental pulmonary nodule, greater than or equal to 8mm Nocturnal hypoxemia Pulmonary emphysema Smoking greater than 30 pack years Tobacco abuse counseling Tobacco abuse disorder Surgical History History of back surgery History of dilation and curettage Family History Other Diabetes Social History (Updated 10/25/22 @ 20:07 by Alice Mallory RN) Smoking Status: Current every day smoker tobacco type: cigarettes packs per day: 2 second hand exposure: Yes alcohol intake: current current occupational status: unemployed Travel in the last 8 weeks: None household members: spouse housing: house current occupational exposures/hazards: No ROS Obtained: Yes All systems reviewed & no additional complaints except as documented Physical Exam General General appearance: alert and in no apparent distress Head Head exam: atraumatic and normocephalic Eye Eye exam: Present normal appearance, PERRL and EOMI ENT ENT exam: Present mucous membranes moist Neck Neck exam: Present normal inspection, full ROM and trachea midline Respiratory Respiratory exam: Present wheezes; Absent respiratory distress, stridor, accessory muscle use or prolonged expiratory phase Cardiovascular Cardiovascular exam: Present regular rate and normal rhythm Abdominal Exam Abdominal exam: Present soft; Absent distention, tenderness, guarding, rebound or rigidity Extremities Exam Extremities exam: Absent edema Neurological Exam Neurological exam: Present alert, oriented X3, CN II-XII intact and normal gait; Absent motor sensory deficit Skin Skin exam: Present warm and dry; Absent diaphoresis or erythema Medical Decision Making Medical Records Medical records reviewed: Yes I reviewed the patient's medical records. Azael Inquiry Pt receiving controlled substance: No Azael was queried for this patient: No Vital Signs: 08/29/23 16:07 08/29/23 16:30 08/29/23 17:13 Temperature 97.7 F Temperature Source Oral Pulse Rate 67 66 Pulse Rate [Left Radial] 76 Respiratory Rate 18 Blood Pressure 155/75 H Blood Pressure [Left Arm] 164/87 H Blood Pressure Mean 116 Blood Pressure Mean [Left Arm] 112 Blood Pressure Source [Left Arm] Automatic Cuff Blood Pressure Position [Left Arm] Sitting 02 Sat by Pulse Oximetry 95 95 Oxygen Delivery Method Room Air 08/29/23 17:13 08/29/23 17:00 08/29/23 17:30 Temperature Temperature Source Pulse Rate 70 64 77 Pulse Rate [Left Radial] Respiratory Rate 20 20 Blood Pressure 148/79 H 148/76 H Blood Pressure [Left Arm] Blood Pressure Mean 126 112 Blood Pressure Mean [Left Arm] Blood Pressure Source [Left Arm] Blood Pressure Position [Left Arm] 02 Sat by Pulse Oximetry 91 L 94 L Oxygen Delivery Method 08/29/23 18:30 08/29/23 19:15 Temperature Temperature Source Pulse Rate 86 86 Pulse Rate [Left Radial] Respiratory Rate Blood Pressure 155/74 H 160/82 H Blood Pressure [Left Arm] Blood Pressure Mean Blood Pressure Mean [Left Arm] Blood Pressure Source [Left Arm] Blood Pressure Position [Left Arm] 02 Sat by Pulse Oximetry 91 L 92 L Oxygen Delivery Method Room Air Lab Data Lab Results 08/29/23 16:37: WBC 6.6, RBC 4.33, Hgb 14.9, Hct 43.6, MCV 100.9 H, MCH 34.5 H, MCHC 34.2, RDW 14.4, Plt Count 220, MPV 7.6, Neut % (Auto) 54.4, Lymph % (Auto) 38.4, [place] % (Auto) 5.2, Eos % (Auto) 1.4, Baso % (Auto) 0.5, Neut # (Auto) 3.6, Lymph # (Auto) 2.5, [place] # (Auto) 0.4, Eos # (Auto) 0.1, Baso # (Auto) 0.0, Sodium 126 L, Potassium 3.1 L, Chloride 85 L, Carbon Dioxide 35 H, Anion Gap 9.1, BUN 20 H, Creatinine 0.80, Estimated Creat Clear 46, Estimated GFR 71, Est GFR ( Amer) 86, Glucose 70 L, Calcium 10.4 H, Phosphorus 4.2, Magnesium 1.2 L, Total Bilirubin 0.5, AST 28, ALT 14, Alkaline Phosphatase 51, Troponin I < 0.01, NT-Pro-B Natriuret Pep 483 H, Total Protein 6.2 L, Albumin 3.8, Globulin 2.4, Albumin/Globulin Ratio 1.6, TSH 2.15, Thyroxine (T4) 6.9 08/29/23 16:45: VBG pH 7.41, VBG pCO2 45.1, VBG pO2 44.9 H, VBG HCO3 28.1, VBG Total CO2 29.5 H, VBG O2 Saturation 80.7 H, VBG Base Excess 3.6 H 08/29/23 17:40: Urine Color Yellow, Urine Appearance Clear, Urine pH 6.0, Ur Specific [place] 1.010, Urine Protein Negative, Urine Glucose (UA) Negative, Urine Ketones Negative, Urine Blood Negative, Urine Nitrate Negative, Urine Bilirubin Negative, Urine Urobilinogen 0.2, Ur Leukocyte Esterase Negative, Urine RBC None, Urine WBC None, Ur Squamous Epith Cells 3-5, Urine Bacteria None 08/29/23 16:37 08/29/23 16:37 Orders (Tests/Meds): ED MEDICATIONS Discontinued Medications Generic Name Dose Route Start Last Admin Trade Name Freq PRN Reason Stop Dose Admin Albuterol/Ipratropium 6 ml 08/29/23 16:36 08/29/23 17:07 Ipratropium/Albuterol 3 Ml Neb IH 08/29/23 16:37 6 ml ONCE ONE Administration Dexamethasone Sodium Phosphate 10 mg 08/29/23 16:36 08/29/23 16:59 Dexamethasone 4mg/Ml 1ml Vial IV 08/29/23 16:37 10 mg ONCE ONE Administration Sodium Chloride 1,000 mls @ 999 mls/hr 08/29/23 16:36 08/29/23 17:00 Sod Chlor 0.9% 1000ml Bag IV 08/29/23 17:36 999 mls/hr .Q1H1M ONE Administration Magnesium Sulfate 2 gm in 50 mls @ 50 mls/hr 08/29/23 17:27 08/29/23 17:32 Magnesium Sulfate 2gm/50ml Premix IV 08/29/23 18:26 50 mls/hr ONCE ONE Administration Iopamidol 75 ml 08/29/23 18:43 08/29/23 18:44 Iopamidol-370 (76%);100ml Bottle IV 08/29/23 18:44 75 ml ONCE ONE Administration Ketorolac Tromethamine 15 mg 08/29/23 17:47 08/29/23 18:32 Ketorolac 30mg/Ml Vial IV 08/29/23 17:48 15 mg ONCE ONE Administration Potassium Chloride 60 meq 08/29/23 17:41 08/29/23 17:44 Potassium Chloride 20meq Tab PO 08/29/23 17:42 60 meq ONCE ONE Administration Sodium Chloride 10 ml 08/29/23 18:43 08/29/23 18:44 Sodium Chloride 0.9% 10ml Syr (Rad Only) IV 08/29/23 18:44 10 ml ONCE ONE Administration ORDERS Category Date Time Status CT chest w con Stat Cat Scan 08/29/23 18:19 Taken XR chest portable Stat Exams 08/29/23 16:37 Completed Brain Natriuretic Peptide Stat Lab 08/29/23 16:37 Completed Complete Blood Count Auto Diff Stat Lab 08/29/23 16:37 Completed Comprehensive Metabolic Panel Stat Lab 08/29/23 16:37 Completed Magnesium Stat Lab 08/29/23 16:37 Completed Phosphorous Stat Lab 08/29/23 16:37 Completed T4 (Thyroxine) Stat Lab 08/29/23 16:37 Completed TSH [Thyroid Stimulating Hormone] Stat Lab 08/29/23 16:37 Completed Troponin I Q3H Lab 08/29/23 19:33 Received Troponin I Q3H Lab 08/29/23 22:45 Ordered Troponin I Stat Lab 08/29/23 16:37 Completed Urinalysis and Microscopic Stat Lab 08/29/23 17:40 Completed Venous Blood Gas Stat RT 08/29/23 16:45 Completed ECG initial [place] Routine Y 08/29/23 16:44 Completed HEART Score History (anamnesis): Slightly suspicious ECG: Normal Age: 45-65 years Risk factors: 3 or more risk factors Troponin: </= normal limit HEART Score: 3 Medical Decision Narrative: 68-year-old female history of hypertension, hyperlipidemia, PAD, CAD, CHF, tobacco use disorder, COPD on 2 L nasal cannula at night presenting with generalized weakness. States that she has been feeling generalized weakness and bilateral leg shaking with exertion since this morning. No recent injuries. No chest pain, nausea vomiting, diaphoresis, fevers or chills. No urinary symptoms, cough, unilateral deficits, upper extremity deficits, or any other concerns. Called EMS to bring her to the emergency department for further evaluation. History was obtained via conversation with patient. On arrival, patient hemodynamically stable, alert, oriented x4, appropriate, GCS 15, moving all extremities spontaneously, pupils equal and reactive to light. Full physical exam performed and significant for NIHSS 0. Patient's lung exam concerning for diffuse, bilateral wheezes with no focal breath sounds. Cardiac exam without murmur, pulse deficits, or any other concerns. Abdomen is soft, nontender, nondistended. Patient saturating 94% on room air, nontachycardic, afebrile. Differential includes COPD exacerbation, hypoxemia, metabolic abnormality, ACS, PA, UTI, pneumonia, among others. Patient was given DuoNeb, fluid bolus, Decadron for symptomatic management and correction of underlying abnormalities. Workup independently interpreted and significant for nonactionable CBC. Chemistry with concern for hypokalemia, hyponatremia, hypomagnesemia. Patient given fluid bolus for this. Initial troponin negative. BNP only mildly elevated 483. TSH and T4 nonactionable. Urinalysis without concern for UTI. Chest x-ray with right lower lobe mass versus developing pneumonia. See radiology read for full review of final results. Independent interpretation of EKG shows sinus rhythm 69 beats a minute with no ST or T wave changes concerning for acute ischemia. IA, QRS, QT intervals within normal limits. [place] normal. Nondiagnostic overall. Given concern for lung mass on x-ray, chest CT with co ntrast was ordered. This demonstrated concern for right upper lobe cancer. No associated lymphadenopathy. Heart score 3. Patient was placed in observation beginning at 445 in order to rule out evolving PA with delta troponins and determine need for admission versus home-going. The patient was provided cardiac monitoring, serial exams, delta troponins, fluids, magnesium, potassium while awaiting results. Independent interpretation of results demonstrated negative delta troponin, CT scan with right upper lobe malignancy. On reevaluation, patient resting comfortably bed. At this time, I feel patient is appropriate for discharge. Total observation time 3 hours. Because patient at baseline without signs or symptoms of clinical decompensation, deemed appropriate for discharge. Results were relayed to patient who voiced understanding and were agreeable to outpatient management and follow up. At the time of discharge the patient was hemodynamically stable, tolerating PO, and mobilizing appropriately. Critical Care Critical Care Time Critical Care Time: No
--- NOTE | 2023-08-29 16:37 | XR_ITS ---
PROCEDURE INFORMATION: Exam: XR Chest Exam date and time: 08/29/2023 4:41 PM Age: 68 years old Clinical indication: Cough and shortness of breath; Additional info: Weakness, copd TECHNIQUE: Imaging protocol: Radiologic exam of the chest. Views: 1 view. COMPARISON: CT CHEST WO CON 10/31/2022 6:43 AM FINDINGS: Lungs: Focal opacity in the right lung base measuring approximately 3-3.5 cm. Pleural spaces: No pleural effusion. No pneumothorax. Heart/Mediastinum: Cardiomediastinal silhouette is normal. Vasculature: Aortic calcifications. Bones/joints: No acute abnormality. Vertebroplasty changes again noted. IMPRESSION: Focal opacity in the right lung base concerning for pneumonia versus mass. Recommend CT chest with contrast. If patient has history which is consistent with pneumonia, CT chest could be obtained following treatment to assess for complete resolution.
--- NOTE | 2023-08-29 16:44 | ECG_ITS ---
APPROVED REPORT Exam: Resting ECG HR:69 bpm ECG Measurements Heart Rate 69 AXES TN 160 P 76 QRSd 95 QRS -73 QT 411 T 57 QTc 430 Conclusion SINUS RHYTHM LEFT AXIS DEVIATION [QRS AXIS < -30] Late R Wave progression ABNORMAL ECG UNCONFIRMED REPORT Electronically signed by : Fito Connelly MD 08/29/2023 19:55:49
--- NOTE | 2023-08-29 16:45 | PC.NURSE ---
RAD at for CXR
[2023-08-29 16:50] LABS: VBG Base Excess 3.6 mmol/L (-2.4-2.3); VBG HCO3 28.1 mmol/L (23-30); VBG Oxygen Saturation 80.7 % (50-70); VBG PCO2 45.1 mmol/L (35-51); VBG PH 7.41 mmol/L (7.31-7.41); VBG PO2 44.9 mmol/L (28-40); VBG Total CO2 29.5 mmol/L (23-27)
[2023-08-29 16:58] LABS: Basophils % 0.5 % (0.1-2.0); Eosinophils # 0.1 K/mm3 (0.0-0.4); Eosinophils % 1.4 % (0.1-12.0); Hematocrit 43.6 % (37.0-47.0); Hemoglobin 14.9 g/dL (12.2-16.2); Lymphocytes # 2.5 K/mm3 (0.7-4.5); Lymphocytes % 38.4 % (10-50); Mean Corpuscular HGB Conc 34.2 g/dL (31.8-35.4); Mean Corpuscular Hemoglobin 34.5 pg (27.0-31.2); Mean Corpuscular Volume 100.9 fl (81-99); Mean Platelet Volume 7.6 fl (7.4-10.4); Monocytes # 0.4 K/mm3 (0.1-1.0); Monocytes % 5.2 % (1.7-9.3); Neutrophils # 3.6 K/mm3 (1.8-7.8); Neutrophils % 54.4 % (37.0-80.0); Platelet Count 220 K/mm3 (142-424); Red Blood Count 4.33 M/mm3 (4.20-5.40); Red Cell Distribution Width 14.4 % (11.5-17.5); White Blood Count 6.6 K/mm3 (4.8-10.8)
[2023-08-29] MEDS: DEXAMETHASONE 4MG/ML 1ML VIAL 10 MG IV (16:59)
[2023-08-29] MEDS: 0.9 % SODIUM CHLORIDE 1000ML 1,000 ML 999 ML IV (17:00)
[2023-08-29] MEDS: IPRATROPIUM/ALBUTEROL 3 ML NEB 6 ML IH (17:07)
[2023-08-29 17:11] LABS: Alanine Aminotransferase 14 U/L (12-78); Albumin Level 3.8 g/dl (3.5-5.0); Albumin/Globulin Ratio 1.6 (1.1-1.8); Alkaline Phosphatase 51 U/L (38-126); Anion Gap 9.1 mEq/L (5-15); Aspartate Amino Transferase 28 U/L (14-36); Bilirubin,Total 0.5 mg/dl (0.2-1.3); Blood Urea Nitrogen 20 mg/dl (7-17); Calcium 10.4 mg/dl (8.4-10.2); Carbon Dioxide 35 mmol/L (22.0-30.0); Chloride 85 mmol/L (98-107); Creatinine Clearance Estimated 46 mL/min (50-200); Estimated Glomerular Filt Rate 71 ml/min (>60); GFR (African American) 86 ML/MIN (>60); Globulin 2.4 g/dL (1.3-3.2); Glucose 70 mg/dl (74-100); Potassium 3.1 mmoL/L (3.5-5.1); Sodium 126 mmol/L (136-145); Total Protein,Serum 6.2 g/dl (6.3-8.2)
[2023-08-29 17:12] LABS: Magnesium 1.2 mg/dl (1.6-2.3); Phosphorous 4.2 mg/dl (2.5-4.5)
[2023-08-29 17:23] LABS: NT Pro Brain Natriuretic Pep. 483 pg/mL (0-125)
[2023-08-29 17:25] LABS: Troponin I < 0.01 ng/ml (0.00-0.034)
[2023-08-29 17:28] LABS: T4 (Thyroxine) 6.9 ug/dl (5.53-11.0)
[2023-08-29] MEDS: MAGNESIUM SULFATE IN WATER 2 GM/50 ML PIGGYBACK IV (17:32)
[2023-08-29 17:41] LABS: Thyroid Stimulating Hormone 2.15 uIU/mL (0.465-4.68)
[2023-08-29 17:43] LABS: Microscopic, Urine URINE MICROSCOPIC (MICROSCOPIC)
[2023-08-29] MEDS: POTASSIUM CHLORIDE 20MEQ TAB 60 MEQ PO (17:44)
[2023-08-29 17:51] LABS: Appearance,Urine CLEAR (Clear); Bilirubin,Urine Negative (Negative); Blood, Urine Negative (Negative); Color,Urine YELLOW (Yellow); Glucose,Urine (UA) Negative (Negative); Ketones,Urine Negative (Negative); Leukocyte Esterase,Urine Negative (Negative); Nitrate,Urine Negative (Negative); Protein,Urine Negative (Negative); Urobilinogen,Urine 0.2 EU/dl (0.2)
--- NOTE | 2023-08-29 18:19 | CT_ITS ---
PROCEDURE INFORMATION: Exam: CT Chest With Contrast; Diagnostic Exam date and time: 08/29/2023 6:39 PM Age: 68 years old Clinical indication: Dyspnea; Additional info: Rul opacity, further eval TECHNIQUE: Imaging protocol: Diagnostic computed tomography of the chest with contrast. Radiation optimization: All CT scans at this facility use at least one of these dose optimization techniques: automated exposure control; mA and/or kV adjustment per patient size (includes targeted exams where dose is matched to clinical indication); or iterative reconstruction. Contrast material: ISOVUE; Contrast volume: 75 ml; Contrast route: IV; COMPARISON: CT CHEST WO CON 10/31/2022 6:43 AM FINDINGS: Lungs: Focal eventration in the posterior right hemidiaphragm, likely accounting for opacity seen in the right lung base on prior chest radiograph. Previously demonstrated mixed solid and ground-glass pulmonary lesion with spiculated margins in the posterior segment of the right upper lobe on 10/31/2022 CT has increased in size from prior exam, particularly the solid component. The overall size including ground-glass halo in spiculated margins measures 2.5 x 2.3 x 2.1 cm compared with 2.4 x 2.2 x 1.7 cm on prior exam when measured in similar dimensions. The solid component has more than doubled in size, now measuring 1.4 x 1.2 x 1.4 cm compared with 0.7 x 0.6 x 0.5 cm on prior exam. Of note, this pulmonary lesion is extremely inconspicuous on the prior plain chest radiograph. An ill-defined satellite nodular opacity measuring 7-8 mm is also increased in size from 4-5 mm on prior exam. Moderate paraseptal and centrilobular emphysematous changes. Few calcified pulmonary granulomata consistent with chronic sequelae of prior granulomatous disease, unchanged. Pleural spaces: No pleural effusion. No pneumothorax. Heart: No significant pericardial effusion. Chronic cardiac findings are unchanged from prior exam, including biatrial enlargement, mitral valve calcifications and calcific coronary artery disease. Lymph nodes: No pathologically enlarged lymph nodes by imaging criteria. Vasculature: Dilated central pulmonary arteries suggestive of longstanding pulmonary arterial hypertension, not significantly changed from prior exam. Extensive atherosclerotic plaque throughout the thoracic aorta, not significantly changed from prior exam. Diaphragm: Small hiatal hernia, unchanged. Intraperitoneal space: No emergent findings or suspicious mass lesions in the partially visualized upper abdomen. Probable benign hemangioma in the spleen, unchanged in size from 10/31/2022 CT. Bones/joints: Compression fracture deformities status post cement kyphoplasty in the thoracolumbar spine, new since prior exam. No evidence of acute osseous abnormality or destructive bone lesions. Soft tissues: Unremarkable. IMPRESSION: 1. No evidence of acute cardiopulmonary disease. 2. Mixed solid and ground-glass pulmonary lesion with spiculated margins in the posterior segment of the right upper lobe with significant interval increase in size of solid component when compared with 10/31/[address] Findings are highly suspicious for adenocarcinoma. Recommend referral for biopsy. 3. An ill-defined satellite nodular opacity measuring 7-8 mm is also increased in size from 4-5 mm on prior exam. Attention on follow-up imaging is recommended. 4. Dilated central pulmonary arteries suggestive of longstanding pulmonary arterial hypertension, not significantly changed from prior exam. 5. Emphysema. 6. Additional chronic ancillary findings detailed above are unchanged from prior exam. COMMENTS: The presence of pulmonary emphysema on CT is an independent risk factor for lung cancer. In the absence of a history or active diagnosis of lung cancer, it is recommended that this patient with emphysema be evaluated for enrollment in a low dose CT lung cancer screening program.
[2023-08-29] MEDS: KETOROLAC 30MG/ML VIAL 15 MG IV (18:32)
--- NOTE | 2023-08-29 18:36 | PC.NURSE ---
Pt gone to RAD via stretcher
--- NOTE | 2023-08-29 18:39 | PC.NURSE ---
Dr. Rodriguez at BS to update pt visitor on results and POC
[2023-08-29] MEDS: IOPAMIDOL-370 (76%);100ML BOTTLE 75 ML IV (18:44)
[2023-08-29] MEDS: SODIUM CHLORIDE 0.9% 10ML SYR (RAD ONLY) 10 ML IV (18:44)
--- NOTE | 2023-08-29 18:45 | PC.NURSE ---
Pt returned from RAD
--- NOTE | 2023-08-29 19:00 | PC.NURSE ---
Pt ambulatory to bathroom x1 person assist
--- NOTE | 2023-08-29 19:27 | PC.NURSE ---
pt. assisted to bathroom
--- NOTE | 2023-08-29 19:34 | PC.NURSE ---
2nd trop sent to lab
[2023-08-29 20:19] LABS: Troponin I < 0.01 ng/ml (0.00-0.034)
== END 2023-08-29 20:34 | disposition home or self-care (01) ==
PROVIDERS: Emergency Provider Emergency Medicine; PCP Nurse Practitioner
DX: J44.1 Chronic obstructive pulmonary disease with (acute) exacerbation (principal); E87.1 Hypo-osmolality and hyponatremia; E87.6 Hypokalemia; E83.42 Hypomagnesemia; R53.1 Weakness; F17.210 Nicotine dependence, cigarettes, uncomplicated
CPT/HCPCS: 71045; 71260; 80053; 81001; 82803; 83735; 83880; 84100; 84436; 84443; 84484; 85025; 93005; 96361; 96365; 96375; 99285; J3475; Q9967

== ENCOUNTER 2023-10-31 07:49 | Outpatient (CLI) | payer MEDICARE, SELFPAY ==
--- NOTE | 2023-10-31 08:04 | MR_ITS ---
FINAL REPORT CLINICAL HISTORY: LOW BACK PAIN COMPARISON: 01/22/2023 FINDINGS: Multiplanar MR imaging of the lumbar spine was performed without contrast. On the sagittal T2-weighted images, there is abnormal decreased signal throughout the lumbar discs. Compression deformities of the T11, T12, and L2 vertebral bodies are once again noted, with evidence of kyphoplasties. The degree of compression of each of these vertebral bodies is similar to the previous scan of January 2023. There is mild retropulsion of the L2 superior endplate. The vertebral alignment is otherwise normal. T12-L1: There is no significant canal stenosis or neural foraminal narrowing. L1-2: A small annular bulge is present with mild bilateral neural foraminal narrowing. L2-3: A small annular bulge is present with mild bilateral neural foraminal narrowing. L3-4: A small annular bulge is present with mild to moderate facet osteoarthropathy and mild to moderate right neural foraminal narrowing. L4-5: A moderate annular bulge is noted, with mild to moderate bilateral neural foraminal narrowing. L5-S1: Mild bilateral neural foraminal narrowing is present. IMPRESSION: Multilevel lumbar degenerative change as described, most severe at the L3-4 and L4-5 levels. Multiple compression deformities of the lower thoracic and upper lumbar spine with prior kyphoplasties. The degree of compression is stable when compared to the prior films of January 2023. Reviewed, Interpreted and Dictated by Eliel Moreno MD Transcribed by Lissa Renee Authenticated and [facility]
== END 2023-10-31 23:59 | disposition home or self-care (01) ==
LOC: RAD 07:50
PROVIDERS: PCP Nurse Practitioner; Visit Provider Nurse Practitioner
DX: M51.26 Other intervertebral disc displacement, lumbar region (principal)
CPT/HCPCS: 72148; 76376

== ENCOUNTER 2023-11-03 11:48 | Emergency (ER) | payer MEDICARE, SELFPAY ==
[2023-11-03 11:49] VITALS: BP 168/105; PULSE 107; RESP 16; TEMP 36.6; O2SAT 93; BMI 21.4
--- OUTSIDE RECORDS SUMMARY | 2023-11-03 11:54 | XMS_ITS | Clinical Summary ---
Author Name Unknown Address [address] [place] [address] [place] [address] Phone Organization [facility] , [facility] Address [address] [place] [address] Phone Care Team Providers Care Apple Thinner Name Role Phone Rafi PRESCOTT, Maribel Unavailable Unavailable ESTHER MIRANDA Unavailable [phone] Federico Cabello MD Unavailable [phone] Reason for Visit and Chief Complaint [Patient Encounter] Problems Includes: Problems addressed during this encounter and other active Problems All Visits Onset Date Resolved Date Provider Condition S tatus Lower Back Pain 01/30/2023 Ghulam Lewis ctive Last Documented On 3 1:01PM ; [facility], [facility] Midback Pain 01/30/2023 Ghulam Vila PA-C Acti ve Last Documented On 3 1:01PM ; [facility], [facility] Plan of Treatment No Plan of Treatment Recorded Assessments Includes: Assessments from this encounter No Assessments Recorded Medical Equipment - Implanted Devices Includes: Current Devices No Medical Equipment Recorded Medications Includes: Medications discussed during this encounter and other current Medications New / Renewed during this visit Federico Cabello MD on 04/18/2023 HYDROcodone-Acetaminophen 5- 325 MG Oral Tablet Provider: Federico Cabello MD 13 day supply: 40 tablet, 0 refills Diagnosis: Take 1 tablet every 8 hrs prn pain Pharmacy: [facility] - [facility] .[facility] [address], [address] - Last Documented On 3 3:26PM By Federico Cabello ; [facility], [facility] Current Medications (continue as prescribed) HYDROcodone-Acetaminophen 7.5-325 MG Oral Tablet 01/25 Provider: ESTHER MIRANDA Diagnosis: Last Documented On 3 1:01PM By Yesi Marion ; [facility], [facility] amLODIPine Besylate 10 MG Oral Tablet 01/25/2023 Pro vider: ESTHER MIRANDA Diagnosis: Last Documented On 3 1:01PM By Yesi Marion ; [facility], [facility] Albuterol Sulfate HFA 108 (9 0 Base) MCG/ACT Inhalation Aerosol Solution 01/24/2023 Provider: ESTHER PEARCE ER Diagnosis: Last Documented On 3 1:01PM By Yesi Marion ; [facility], [facility] traMADol HCl 50 MG Oral Tablet 01/21/2023 Provider: ESTHER MIRANDA Diagnosis: Last Documented On 3 1:01PM By Yesi Marion ; [facility], [facility] Montelukast Sodium 10 MG Oral Tablet 01/15/2023 Prov ider: ESTHER MIRANDA Diagnosis: Last Documented On 3 1:01PM By Yesi Marion ; [facility], [facility] Bisoprolol Fumarate 10 MG Oral Tablet 01/15/2023 Pro vider: ESTHER MIRANDA Diagnosis: Last Documented On 3 1:01PM By Yesi Marion ; [facility], [facility] Gabapentin 600 MG Oral Tablet 01/13/2023 Provider: ESTHER MIRANDA Diagnosis: Last Documented On 3 1:01PM By Yesi Marion ; [facility], [facility] Folic Acid 1 MG Oral Tablet 01/02/2023 Provider: Diagnosis: Last Documented On 3 1:01PM By Yesi Marion ; [facility], [facility] Cyclobenzaprine HCl 5 MG Oral Tablet 01/01/2023 Prov ider: ESTHER MIRANDA Diagnosis: Last Documented On 3 1:01PM By Yesi Marion ; [facility], [facility] Medications Administered Includes: Administered Medications from this encounter No Administered Medications Recorded Results Includes: Results discussed during this encounter No Results Recorded For Specified Dates History of Present Illness Includes: History of Present Illness from this encounter No History of Present Illness Recorded Social History No Social History Recorded - Smoking Status Unknown Medical History Includes: Medical History addressed during this encounter No Medical History Recorded Family History Includes: Family History addressed during this encounter No Family History Recorded Review of Systems Includes: Review of Systems from this encounter No Review of Systems Recorded Mental Status Includes: Mental Status from this encounter No Mental Status Recorded Functional Status Includes: Functional Status from this encounter No Functional Status Recorded Physical Exam Includes: Physical Exam from this encounter No Physical Exam Recorded Allergies Includes: Active Allergies No Known Allergies Encounters Encounter Provider Location Date Check-In Time Check-Out Time Diagnosis [Patient Encounter] Federico Cabello MD 04/18/2023 3:13PM 11:59PM Insurance Includes: Active Insurance Policies Plan Name Member ID Group # Subscriber Relationship Effect kelsey Dates 1 - [employer] [id number] Iqra Balbuena Self Clinical Notes Includes: Clinical Notes from this encounter No Clinical Notes Recorded
--- OUTSIDE RECORDS SUMMARY | 2023-11-03 11:54 | XMS_ITS | Clinical Summary ---
Author Name Unknown Address [address] [place] [address] [place] [address] Phone Organization [facility] , [facility] Address [address] [place] [address] Phone Care Team Providers Care Engraver Jewelry Name Role Phone Rafi PRESCOTT, Maribel Unavailable Unavailable ESTHER MIRANDA Unavailable [phone] Federico Cabello MD Unavailable [phone] Reason for Visit and Chief Complaint [Patient Encounter] Problems Includes: Problems addressed during this encounter and other active Problems All Visits Onset Date Resolved Date Provider Condition S tatus Lower Back Pain 01/30/2023 Ghulam Lewis ctive Last Documented On 3 1:01PM ; [facility] Midback Pain 01/30/2023 Ghulam Vila PA-C Acti ve Last Documented On 3 1:01PM ; [facility] Plan of Treatment No Plan of Treatment Recorded Assessments Includes: Assessments from this encounter No Assessments Recorded Medical Equipment - Implanted Devices Includes: Current Devices No Medical Equipment Recorded Medications Includes: Medications discussed during this encounter and other current Medications Current Medications (continue as prescribed) HYDROcodone-Acetaminophen 7.5-325 MG Oral Tablet 01/25 Provider: ESTHER MIRANDA Diagnosis: Last Documented On 3 1:01PM By Yesi Marion ; [facility], [facility] amLODIPine Besylate 10 MG Oral Tablet 01/25/2023 Pro vider: ESTHER MIRANDA Diagnosis: Last Documented On 3 1:01PM By Yesi Marion ; [facility], [facility] Albuterol Sulfate HFA 108 (9 0 Base) MCG/ACT Inhalation Aerosol Solution 01/24/2023 Provider: ESTHER PEARCE ER Diagnosis: Last Documented On 3 1:01PM By Yesi Marion ; [facility] traMADol HCl 50 MG Oral Tablet 01/21/2023 Provider: ESTHER MIRANDA Diagnosis: Last Documented On 3 1:01PM By Yesi Marion ; [facility] Montelukast Sodium 10 MG Oral Tablet 01/15/2023 Prov ider: ESTHER MIRANDA Diagnosis: Last Documented On 3 1:01PM By Yesi Marion ; [facility] Bisoprolol Fumarate 10 MG Oral Tablet 01/15/2023 Pro vider: ESTHER MCNALLYNER Diagnosis: Last Documented On 3 1:01PM By Yesi Marion ; [facility] Gabapentin 600 MG Oral Tablet 01/13/2023 Provider: ESTHER MIRANDA Diagnosis: Last Documented On 3 1:01PM By Yesi Marion ; [facility] Folic Acid 1 MG Oral Tablet 01/02/2023 Provider: Diagnosis: Last Documented On 3 1:01PM By Yesi Marion ; [facility] Cyclobenzaprine HCl 5 MG Oral Tablet 01/01/2023 Prov ider: ESTHER MIRANDA Diagnosis: Last Documented On 3 1:01PM By Yesi Marion ; [facility] Medications Administered Includes: Administered Medications from this [...] Time Diagnosis [Patient Encounter] Federico Cabello MD 04/25/2023 12:15PM 11:59PM Insurance Includes: Active Insurance Policies Plan Name Member ID Group # Subscriber Relationship Effect kelsey Dates 1 - [employer] [id number] Iqra Balbuena Self Clinical Notes Includes: Clinical Notes from this encounter No Clinical Notes Recorded
--- OUTSIDE RECORDS SUMMARY | 2023-11-03 11:54 | XMS_ITS ---
Care Plan - [facility], [facility] Created on: November 03, 2023 Sree Iqra : 1955 Sex: Female Author Name Unknown Address [address] [place] [address] [place] [address] Phone Organization [facility] Address [address] [place] [address] Phone Care Team Providers Care Hospitality Specialist Name Role Phone Rafi PRESCOTT, Maribel Unavailable Unavailable ESTHER MIRANDA Unavailable [phone] Irineo ESPINOZA, Federico Lewis Unavailable [phone]
--- OUTSIDE RECORDS SUMMARY | 2023-11-03 11:54 | XMS_ITS | Clinical Summary ---
Author Name Unknown Address [address] [place] [address] [place] [address] Phone Organization [facility] , [facility] Address [address] [place] [address] Phone Care Team Providers Care Swabber Name Role Phone Rafi PRESCOTT, Maribel Unavailable Unavailable ESTHER MIRANDA Unavailable [phone] Federico Cabello MD Unavailable [phone] Reason for Visit and Chief Complaint The Chief Complaint is: Mid-Low back pain Problems Includes: Problems addressed during this encounter and other active Problems All Visits Onset Date Resolved Date Provider Condition S tatus Lower Back Pain 01/30/2023 Ghulam Vila PA-C A ctive Last Documented On 3 1:01PM ; [facility] Midback Pain 01/30/2023 Ghulam Vila PA-C Acti ve Last Documented On 3 1:01PM ; [facility] Plan of Treatment Fall Risk Assessment: This patient has been identified as a fall risk. Balance/gait along with postural blood pressure, vision and home fall hazards have been assessed. Medications have been reviewed, and recommendations made with regard to contributing factors for future falls. Plan of care: Consideration of vitamin D supplementation along with balance and strength training with consideration for formal physical therapy has been discussed with the patient. - Last Documented On 05/15/2023 9:01AM ; [facility] Patient was seen by myself Ghulam Vila PA-C. Patient will follow up with us as needed she has an order to get a bone density test and labs for calcium and vitamin D. Once she gets those done she is to let us know and then I have advised her to make sure she gets treatment with somebody for osteoporosis will start may be with her family physician with this. - Last Documented On 05/15/2023 9:01AM ; [facility], [facility] Instructions to patient Intervention and counseling on cessation of tobacco use Last Documented On 3 8:48AM ; [facility] Lose weight Last Documented On 3 8:48AM ; [facility] Assessments Includes: Assessments from this encounter Findings - Overweight - Last Documented On 05/15/2023 9:01AM ; [facility] T12 kyphoplasty 05/06/2023 - Last Documented On 05/15/2023 9:01AM ; [facility] Instructions Includes: Instructions from this encounter Instructions to patient Intervention and counseling on cessation of tobacco use Last Documented On 3 8:48AM ; [facility] Lose weight Last Documented On 3 8:48AM ; [facility], [facility] Medical Equipment - Implanted Devices Includes: Current Devices No Medical Equipment Recorded Medications Includes: Medications discussed during this encounter and other current Medications Current Medications (continue as prescribed) HYDROcodone-Acetaminophen 7.5-325 MG Oral Tablet 01/25 Provider: ESTHER MIRANDA Diagnosis: Last Documented On 3 1:01PM By Yesi Marion ; [facility], [facility] amLODIPine Besylate 10 MG Oral Tablet 01/25/2023 Pro vider: ESTHER MIRANDA Diagnosis: Last Documented On 3 1:01PM By Yesi Marion ; [facility], [facility] Albuterol Sulfate HFA 108 (9 0 Base) MCG/ACT Inhalation Aerosol Solution 01/24/2023 Provider: ESTHER PEARCE ER Diagnosis: Last Documented On 3 1:01PM By Yesi Marion ; [facility], [facility] traMADol HCl 50 MG Oral Tablet 01/21/2023 Provider: ESTHER MIRANDA Diagnosis: Last Documented On 3 1:01PM By Yesi Marion ; [facility], [facility] Montelukast Sodium 10 MG Oral Tablet 01/15/2023 Prov ider: ESTHER MIRANDA Diagnosis: Last Documented On 3 1:01PM By Yesi Marion ; [facility] Bisoprolol Fumarate 10 MG Oral Tablet 01/15/2023 Pro vider: ESTHER MIRANDA Diagnosis: Last Documented On 3 1:01PM By Yesi Marion ; [facility] Gabapentin 600 MG Oral Tablet 01/13/2023 Provider: ESTHER MIRANDA Diagnosis: Last Documented On 3 1:01PM By Yesi Marion ; [facility] Folic Acid 1 MG Oral Tablet 01/02/2023 Provider: Diagnosis: Last Documented On 3 1:01PM By Yesi Marion ; [facility] Cyclobenzaprine HCl 5 MG Oral Tablet 01/01/2023 Prov ider: ESTHER MCNALLYNER Diagnosis: Last Documented On 3 1:01PM By Yesi Marion ; [facility] Past Medications on file HYDROcodone-Acetaminophen 5- 325 MG Oral Tablet 05/06/2023 - 05/21/2023 Provider: Federico Cabello MD Diagnosis: 1 po q 4h prn pain Last Documented On 3 4:19PM By Federico Cabello ; [facility] HYDROcodone-Acetaminophen 5- 325 MG Oral Tablet 04/18/2023 - 05/01/2023 Provider: Federico Cabello MD Diagnosis: Take 1 tablet every 8 hrs prn pain Last Documented On 3 3:26PM By Federico Cabello ; [facility] HYDROcodone-Acetaminophen 5- 325 MG Oral Tablet 04/10/2023 - 04/23/2023 Provider: Federico Cabello MD Diagnosis: Take 1 tablet every 8 hrs prn pain Last Documented On 3 12:16PM By Federico Cabello ; [facility] HYDROcodone-Acetaminophen 5- 325 MG Oral Tablet 02/28/2023 - 03/13/2023 Provider: Federico Cabello MD Diagnosis: Take 1 tablet every 8 hrs prn pain Last Documented On 3 3:41PM By Federico Cabello ; [facility] HYDROcodone-Acetaminophen 5- 325 MG Oral Tablet 02/19/2023 - 03/04/2023 Provider: Federico Cabello MD Diagnosis: Take 1 tablet every 8 hrs prn pain Last Documented On 3 2:11PM By Federico Cabello ; [facility] HYDROcodone-Acetaminophen 5- 325 MG Oral Tablet 02/06/2023 - 02/19/2023 Provider: Federico Cabello MD Diagnosis: Take 1 tablet every 8 hrs prn pain Last Documented On 3 2:54PM By Federico Cabello ; [facility] Medications Administered Includes: Administered Medications from this encounter No Administered Medications Recorded Vital Signs Includes: Vital Signs from this encounter Vital Name 05/15/2023 08:49A Height (in) 62 Weight (lb) 136 Body Mass Index 24.9 Body Surface Area 1.6 Note: lc Last Documented: On 05/15/2023 8:49AM ; [facility] Results Includes: Results discussed during this encounter No Results Recorded For Specified Dates History of Present Illness Includes: History of Present Illness from this encounter JOSE ARMANDO Balbuena is a 68 year old female. - Allergy list reviewed - Problem list reviewed - Medication list reviewed - Pain is constant (100% of the time) - No previous treatment. Patient is here today for follow-up of her T12 kyphoplasty procedure date 05/06/2023 she says this has helped with her pain. Social History Description Last Updated Tobacco use 01/30/2023 Last Documented On 3 8:48AM ; [facility] Smoking Status Unknown Procedures and Surgical History Includes: Procedures from this encounter Procedures Code Diagnosis Performing Provider Service L ocation Service Date intervention and counseling on cessation of tobacco use 4000F Last Documented On 3 8:48AM ; [facility] patient screened for future fall risk: documentation of any fall with injury in past year 1100F Last Documented On 3 8:48AM ; [facility] review of medications documented 1160F Last Documented On 3 8:48AM ; [facility] Medical History Includes: Medical History addressed during [...] Exam Includes: Physical Exam from this encounter Allergies Includes: Active Allergies No Known Allergies Encounters Encounter Provider Location Date Check-In Time Check-Out Time Diagnosis Post Op Ghulam Vila PA-C [facility] 3 8:46AM 8:59AM Overweight Insurance Includes: Active Insurance Policies Plan Name Member ID Group # Subscriber Relationship Effect kelsey Dates 1 - [employer] [id number] Iqra Balbuena Self Clinical Notes Includes: Clinical Notes from this encounter * Progress note Date Encounter Last Documented by 05/15/2023 Post Op Last documented on 05/15/2023; 9:01 AM, Ghulam Vila PA-C; [facility] Active Problems & Conditions - Lower Back Pain - Midback Pain Chief Complaint The Chief Complaint is: Mid-Low back pain. Referred Here Referred by PCP. History of Present Illness Iqra Balbuena is a 68 year old female. - Allergy list reviewed - Problem list reviewed - Medication list reviewed - Pain is constant (100% of the time) - No previous treatment. Patient is here today for follow-up of her T12 kyphoplasty procedure date 05/06/2023 she says this has helped with her pain. Current Medication - Albuterol Sulfate HFA 108 (90 Base) MCG/ACT Inhalation Aerosol Solution 25 days, 0 refills - amLODIPine Besylate 10 MG Oral Tablet 90 days, 0 refills - Bisoprolol Fumarate 10 MG Oral Tablet 30 days, 0 refills - Cyclobenzaprine HCl 5 MG Oral Tablet 10 days, 0 refills - Folic Acid 1 MG Oral Tablet 30 days, 0 refills - Gabapentin 600 MG Oral Tablet 30 days, 0 refills - HYDROcodone-Acetaminophen 5-325 MG Oral Tablet 1 po q 4h prn pain, 15 days, 0 refills - HYDROcodone-Acetaminophen 7.5-325 MG Oral Tablet 8 days, 0 refills - Montelukast Sodium 10 MG Oral Tablet 30 days, 0 refills - traMADol HCl 50 MG Oral Tablet 10 days, 0 refills Social History Tobacco use: Tobacco use. Allergies - No Known Allergies Physical Findings - Vitals taken 05/15/2023 08:49 am lc Height 62 in Weight 136 lbs Body Mass Index 24.9 kg/m2 Body Surface Area 1.6 m2 Incision site looks clean dry intact Steri-Strip was taken off today. Assessment - Overweight T12 kyphoplasty 05/06/2023 Previous Tests Available previous imaging studies were reviewed Available previous history reviewed Therapy - Intervention and counseling on cessation of tobacco use. Counseling/Education - Lose weight Plan Fall Risk Assessment: This patient has been identified as a fall risk. Balance/gait along with postural blood pressure, vision and home fall hazards have been assessed. Medications have been reviewed, and recommendations made with regard to contributing factors for future falls. Plan of care: Consideration of vitamin D supplementation along with balance and strength training with consideration for formal physical therapy has been discussed with the patient. Patient was seen by myself Ghulam Vila PA-C. Patient will follow up with us as needed she has an order to get a bone density test and labs for calcium and vitamin D. Once she gets those done she is to let us know and then I have advised her to make sure she gets treatment with somebody for osteoporosis will start may be with her family physician with this. Notes This dictation was done with voice recognition software and may contain errors and omissions. Practice Management Patient screened for future fall risk: documentation of any fall with injury in past year Review of medications documented. Care Team - ESTHER MIRANDA - - Maribel Mckee NP
--- OUTSIDE RECORDS SUMMARY | 2023-11-03 11:54 | XMS_ITS | Clinical Summary ---
Author Name Unknown Address [address] [place] [address] [place] [address] Phone Organization [facility] Address [address] [place] [address] Phone Care Team Providers Care Irrigation Specialist Name Role Phone Rafi PRESCOTT, Maribel Unavailable Unavailable ESTHER MIRANDA Unavailable [phone] Irineo ESPINOZA, Federico Lewis Unavailable [phone] Reason for Visit and Chief Complaint Kyphoplasty Problems Includes: Problems addressed during this encounter and other active Problems All Visits Onset Date Resolved Date Provider Condition S tatus Lower Back Pain 01/30/2023 Ghulam Lewis ctive Last Documented On 3 1:01PM ; [facility] Midback Pain 01/30/2023 Ghulam Vila PA-C Acti ve Last Documented On 3 1:01PM ; [facility] Plan of Treatment No Plan of Treatment Recorded Assessments Includes: Assessments from this encounter No Assessments Recorded Medical Equipment - Implanted Devices Includes: Current Devices No Medical Equipment Recorded Medications Includes: Medications discussed during this encounter and other current Medications New / Renewed during this visit Federico Cabello MD on 05/06/2023 HYDROcodone-Acetaminophen 5- 325 MG Oral Tablet Provider: Federico Cabello MD 15 day supply: 20 tablet, 0 refills Diagnosis: 1 po q 4h prn pain Pharmacy: [facility] - [id number] [address], [address] - Last Documented On 3 4:19PM By Federico Cabello ; [facility] Current Medications (continue as prescribed) HYDROcodone-Acetaminophen 7.5-325 MG Oral Tablet 01/25 Provider: ESTHER MIRANDA Diagnosis: Last Documented On 3 1:01PM By Yesi Marion ; [facility], [facility] amLODIPine Besylate 10 MG Oral Tablet 01/25/2023 Pro vider: ESTHER MIRANDA Diagnosis: Last Documented On 3 1:01PM By Yesi Marion ; [facility], [facility] Albuterol Sulfate HFA 108 (9 0 Base) MCG/ACT Inhalation Aerosol Solution 01/24/2023 Provider: ESTHER PEARCE ER Diagnosis: Last Documented On 3 1:01PM By Yesi Marion ; [facility], [facility] traMADol HCl 50 MG Oral Tablet 01/21/2023 Provider: ESTHER MIRANDA Diagnosis: Last Documented On 3 1:01PM By Yesi Marion ; [facility], [facility] Montelukast Sodium 10 MG Oral Tablet 01/15/2023 Prov ider: ESTHER MIRANDA Diagnosis: Last Documented On 3 1:01PM By Yesi Marion ; [facility], [facility] Bisoprolol Fumarate 10 MG Oral Tablet 01/15/2023 Pro vider: ESTHER MIRANDA Diagnosis: Last Documented On 3 1:01PM By Yesi Marion ; [facility] Gabapentin 600 MG Oral Tablet 01/13/2023 Provider: ESTHER MIRANDA Diagnosis: Last Documented On 3 1:01PM By Yesi Marion ; [facility], [facility] Folic Acid 1 MG Oral Tablet 01/02/2023 Provider: Diagnosis: Last Documented On 3 1:01PM By Yesi Marion ; [facility], [facility] Cyclobenzaprine HCl 5 MG Oral Tablet 01/01/2023 Prov ider: ESTHER MIRANDA Diagnosis: Last Documented On 3 1:01PM By Yesi Marion ; [facility], [facility] Medications Administered Includes: Administered Medications from this encounter No Administered Medications Recorded Results Includes: Results discussed during this encounter No Results Recorded For Specified Dates History of Present Illness Includes: History of Present Illness from this encounter No History of Present Illness Recorded Social History No Social History Recorded - Smoking Status Unknown Procedures and Surgical History Includes: Procedures from this encounter Procedures Code Diagnosis Performing Provider Service Location Service Date percutaneous vertebral augmentation incl cavity creation 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
--- OUTSIDE RECORDS SUMMARY | 2023-11-03 11:54 | XMS_ITS ---
Author Name Unknown Address [address] [place] [address] [place] [address] Phone Organization [facility] Address [address] [place] [address] Phone Care Team Providers Care Scan Coordinator Name Role Phone Rafi PRESCOTT, Maribel Unavailable Unavailable ESTHER MIRANDA Unavailable [phone] Federico Cabello MD Unavailable [phone] Problems Includes: Active, inactive, and resolved Problems All Visits Onset Date Resolved Date Provider Condition S tatus Lower Back Pain 01/30/2023 Ghulam Vila PA-C A ctive Last Documented On 3 1:01PM ; [facility] Midback Pain 01/30/2023 Ghulam Vila PA-C Acti ve Last Documented On 3 1:01PM ; [facility] Plan of Treatment Referrals To Diagnosis Consult with Event Host Overw eight Last Documented On 3 1:53PM ; [facility] Consult with Event Host Overw eight Note: STAT to see pulmonolog y Dr. Herrmann if [place] to see if patient can have surgery. She is on O2 and has a T11 compression fracture plan would be for a T11 kypho if cleared. Have clearance sent to Isi Ramesh Last Documented On 3 4:46PM ; [facility] Instructions to patient Intervention and counseling on cessation of tobacco use Last Documented On 3 8:48AM ; [facility] Lose weight Last Documented On 3 8:48AM ; [facility] Intervention and counseling on cessation of tobacco use Last Documented On 3 9:03AM ; [facility] Lose weight Last Documented On 3 9:03AM ; [facility] Intervention and counseling on cessation of tobacco use Last Documented On 3 10:56AM ; [facility] Lose weight Last Documented On 3 10:56AM ; [facility] Intervention and counseling on cessation of tobacco use Last Documented On 3 1:11PM ; [facility] Lose weight Last Documented On 3 1:11PM ; [facility] Assessments Includes: Assessments for all patient encounters Findings Encounter Date Overweight Post Op with Ghulam Vila PA-C 05/15/2023 Last Documented On 3 9:01AM ; [facility] Overweight NEW PROBLEM/EST PT with Ghulam Vila PA-C 04/10/2023 Last Documented On 3 12:29PM ; [facility] Overweight Post Op with Ghulam Vila PA-C 03/04/2023 Last Documented On 3 11:15AM ; [facility] Overweight Physician Specified with Ghulam Vila PA-C 01/30/2023 Last Documented On 3 8:46AM ; [facility] Instructions Includes: Instructions for all patient encounters Instructions to patient Intervention and counseling on cessation of tobacco use Last Documented On 3 8:48AM ; [facility] Lose weight Last Documented On 3 8:48AM ; [facility] Intervention and counseling on cessation of tobacco use Last Documented On 3 9:03AM ; [facility] Lose weight Last Documented On 3 9:03AM ; [facility] Intervention and counseling on cessation of tobacco use Last Documented On 3 10:56AM ; [facility] Lose weight Last Documented On 3 10:56AM ; [facility] Intervention and counseling on cessation of tobacco use Last Documented On 3 1:11PM ; [facility] Lose weight Last Documented On 3 1:11PM ; [facility] Medical Equipment - Implanted Devices Includes: Current and historical Devices No Medical Equipment Recorded Medications Includes: Current and historical Medications Current Medications (continue as prescribed) HYDROcodone-Acetaminophen 7.5-325 MG Oral Tablet 01/25 Provider: ESTHER MIRANDA Diagnosis: Last Documented On 3 1:01PM By Yesi Marion ; [facility] amLODIPine Besylate 10 MG Oral Tablet 01/25/2023 Pro vider: ESTHER MIRANDA Diagnosis: Last Documented On 3 1:01PM By Yesi Marion ; [facility] Albuterol Sulfate HFA 108 (9 0 Base) MCG/ACT Inhalation Aerosol Solution 01/24/2023 Provider: ESTHER PEARCE ER Diagnosis: Last Documented On 3 1:01PM By Yesi Marino ; [facility] traMADol HCl 50 MG Oral Tablet 01/21/2023 Provider: ESTHER MIRANDA Diagnosis: Last Documented On 3 1:01PM By Yesi Marion ; [facility] Montelukast Sodium 10 MG Oral Tablet 01/15/2023 Prov ider: ESTHER MIRANDA Diagnosis: Last Documented On 3 1:01PM By Yesi Marion ; [facility] Bisoprolol Fumarate 10 MG Oral Tablet 01/15/2023 Pro vider: ESTHER MIRANDA Diagnosis: Last Documented On 3 1:01PM By Yesi Marion ; [facility] Gabapentin 600 MG Oral Tablet 01/13/2023 Provider: ESTHER MIRANDA Diagnosis: Last Documented On 3 1:01PM By Yesi Marion ; [facility] Folic Acid 1 MG Oral Tablet 01/02/2023 Provider: Diagnosis: Last Documented On 3 1:01PM By Yesi Marion ; [facility] Cyclobenzaprine HCl 5 MG Oral Tablet 01/01/2023 Prov ider: ESTHER MIRANDA Diagnosis: Last Documented On 3 1:01PM By Yesi Marion ; [facility] Past Medications on file HYDROcodone-Acetaminophen 5- 325 [...] On 3 2:11PM By Federico Cabello ; [facility] HYDROcodone-Acetaminophen 5- 325 MG Oral Tablet 02/06/2023 - 02/19/2023 Provider: Federico Cabello MD Diagnosis: Take 1 tablet every 8 hrs prn pain Last Documented On 3 2:54PM By Federico Cabello ; [facility] Medications Administered Includes: Administered Medications in patient's chart No Administered Medications Recorded Vital Signs Includes: Vital Signs from 11/02/2022 through 11/03/2023 Vital Name 05/15/2023 08:49A 04/10/2023 09:02A 03/04/2023 11:01A 01/30/2023 01:01P Height (in) 62 62 62 62 Weight (lb) 136 136 136 138 Body Mass Index 24.9 24.9 24.9 25.2 Body Surface Area 1.6 1.6 1.6 1.6 Note: lc AM mg Last Documented: On 05/15/2023 8:49AM ; [facility] On 04/10/2023 9:02AM ; [facility] On 03/04/2023 11:01AM ; [facility] On 01/30/2023 1:11PM ; [facility] Results Includes: Results from 11/02/2022 through 11/03/2023 No Results Recorded For Specified Dates History of Present Illness History of Present Illness not supported for this document type No History of Present Illness Recorded Social History Description Last Updated Tobacco use 01/30/2023 Last Documented On 3 8:46AM ; [facility] Smoking Status Unknown Procedures and Surgical History Includes: Procedures from 11/02/2022 through 11/03/2023 Procedures Code Diagnosis Performing Provider Service Location Service Date percutaneous vertebral augmentation incl cavity creation 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, vertebra(e), henry Cabello MD [facility] 05/06/2023 Last Documented On 3 9:19AM ; [facility] X-RAY EXAM OF THORACIC SPINE 2 VIEWS 59512 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, vertebra(e), henry Vila PA-C [facility] 04/10/2023 Last Documented On 3 6:31AM ; [facility] X-RAY EXAM OF LOWER SPINE 2-3 VIEWS LIMITED [address] 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, vertebra(e), henry Vila PA-C [facility] 04/10/2023 Last Documented On 3 6:31AM ; [facility] percutaneous vertebral augmentation incl cavity creation 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, vertebra(e), henry Cabello MD [facility] 02/25/2023 Last Documented On 3 9:26AM ; [facility] Medical History Includes: Medical History in patient's chart No Medical History Recorded Family History Includes: Family History in patient's chart No Family History Recorded Review of Systems Review of Systems not supported for this document type No Review of Systems Recorded Mental Status No Mental Status Recorded Functional Status No Functional Status Recorded Physical Exam Physical Exam not supported for this document type No Physical Exam Recorded Allergies Includes: Active, inactive, and resolved Allergies No Known Allergies Encounters Includes: Encounters from 11/02/2022 through 11/03/2023 Encounter Provider Location Date Check-In Time Check-Out Time Diagnosis Post Op Ghulam Vila PA-C [facility] 05/15/20 8:46AM 8:59AM Overweight Kyphoplasty Federico Cabello MD [facility] 05/06/20 7:06AM 9:05AM [Patient Encounter] Federico Cabello MD 04/25/2004/10/2023 12:15PM 04/10/2023 11:59PM [Patient Encounter] Federico Cabello MD 04/18/2004/10/2023 3:13PM 04/10/2023 11:59PM NEW PROBLEM/EST PT Ghulam Vila PA-C [facility] 04/10/20 8:11AM 9:10AM Overweight Post Op Ghulam Vila PA-C [facility] 03/04/20 10:54AM 11:13AM Overweight [Patient Encounter] Federico Cabello MD 02/29/20 23 02/25/2023 3:20PM 02/25/2023 11:59PM Kyphoplasty Federico Cabello MD [facility] 02/26/20 7:09AM 8:42AM [Patient Encounter] Federico Cabello MD 02/20/20 23 01/30/2023 1:53PM 01/30/2023 11:59PM [Patient Encounter] Federico Cabello MD 02/14/20 23 01/30/2023 12:05PM 01/30/2023 11:59PM Physician Specified Ghulam Vila PA-C [facility] 01/31/20 12:46PM 1:44PM Overweight Insurance Includes: Active Insurance Policies Plan Name Member ID Group # Subscriber Relationship Effect kelsey Dates 1 - [employer] [id number] Iqra Nuñez Clinical Notes Includes: Signed Clinical Notes starting from 06/28/2022 * Progress note Date Encounter Last Documented by 05/15/2023 Post Op Last documented on 05/15/2023; 9:01 AM, Ghulam Vila PA-C; [facility] Active Problems & Conditions - Lower [...] ESTHER MIRANDA - - Maribel Mckee NP * Progress note Date Encounter Last Documented by 04/10/2023 NEW PROBLEM/EST PT Last document ed on 05/03/2023; 12:29 PM, Ghulam Vila PA-C; [facility] Active Problems & Conditions - Lower [...] No previous treatment. Patient is here today complaints of some mid to lower back pain ongoing for about a month history in the past of having 2 previous compression fracture it is worse standing up and being active better laying down no radicular symptoms with this. No bowel or bladder issues with this. Addendum dated 04/30/2023. Patient has history of osteoporosis. Patient states pain is 10/10, pain is constant and worsening with severe impact on daily functioning. Current Medication - Albuterol Sulfate HFA 108 [...] Tablet 30 days, 0 refills - HYDROcodone-Acetaminophen 7.5-325 MG Oral Tablet 8 days, 0 refills - Montelukast Sodium 10 MG Oral Tablet 30 days, 0 refills - traMADol HCl 50 MG Oral Tablet 10 days, 0 refills Social History Tobacco use: Tobacco use. Allergies - No Known Allergies Physical Findings - Vitals taken 04/10/2023 09:02 am Height 62 in Weight 136 lbs Body Mass Index 24.9 kg/m2 Body Surface Area 1.6 m2 Patient is tender to palpation in the mid to lower thoracic lumbar spine. She has 4+ out of 5 EHL gastroc quadricep tibialis anterior strength bilaterally Tests 2 views of the thoracic and lumbar spine show previous compression fractures with kyphoplasty at L2 and T11 there is a new compression fracture at T12 04/10/23 Addendum 04/12/23 The MRI from January 2023 was reviewed in comparison to the new x- ray and this new compression fracture T12 was not present Jimbo Vila PA-C Assessment - Overweight T12 compression fracture Previous Tests Imaging: X-Ray: An X-ray was performed. Available previous imaging studies were reviewed Available previous history reviewed Therapy - Intervention and counseling on cessation of tobacco use. Counseling/Education - Lose weight Plan StartCited - Other HYDROcodone-Acetaminophen 5-325 MG tablet Take 1 tablet every 8 hrs prn pain, 13 days, 0 refills EndCited Fall Risk Assessment: This patient has been [...] Ghulam Vila PA-C. Patient will follow up right now as needed she wants to consider a kyphoplasty with Dr. Cabello again we will give her some pain medicine I will review studies with him tomorrow and if he agrees we can set her up for a T12 kyphoplasty. Addendum dated 04/11/2023. X-rays reviewed with Dr. Cabello states he has a T12 compression fracture we will set her up for a T12 kyphoplasty. Once approved she will have the procedure done and we will see her back in the office postsurgery Jimbo Vila PA-C Addendum dated 04/29/2023. We did a peer to peer for this patient last week and tried to get a kyphoplasty approved for her but her insurance required an MRI. MRI of the lumbar spine does show that she has a T12 compression fracture . We will see if we can now get this approved for T12 kyphoplasty. Jimbo Vila PA-C Notes This dictation was done with voice recognition software and may contain errors and omissions. Practice Management Patient screened for future fall risk: documentation of any fall with injury in past year Review of medications documented. Care Team - ESTHER MIRANDA - - Maribel Mckee NP * Progress note Date Encounter Last Documented by 03/04/2023 Post Op Last documented on 03/04/2023; 11:15 AM, Ghulam Vila PA-C; [facility] Active Problems & Conditions - Lower Back Pain - Midback Pain Chief Complaint The Chief Complaint is: Mid-Low back pain. Referred Here Referred by. History of Present Illness Iqra Balbuena is a 67 year old female. - Allergy list reviewed - Problem list reviewed - Medication list reviewed Follow-up on her T11 kyphoplasty from February 25, 2023 she is doing good she not having any pain with her back she is happy with the procedure. Current Medication - Albuterol Sulfate HFA 108 [...] refills - HYDROcodone-Acetaminophen 5-325 MG Oral Tablet Take 1 tablet every 8 hrs prn pain, 13 days, 0 refills - HYDROcodone-Acetaminophen 7.5-325 MG Oral Tablet 8 days, 0 refills - Montelukast Sodium 10 MG Oral Tablet 30 days, 0 refills - traMADol HCl 50 MG Oral Tablet 10 days, 0 refills Social History Tobacco use: Tobacco use. Allergies - No Known Allergies Physical Findings - Vitals taken 03/04/2023 11:01 am AM Height 62 in Weight 136 lbs Body Mass Index 24.9 kg/m2 Body Surface Area 1.6 m2 Her incision was healed. She does walk with a cane. Assessment - Overweight T11 kyphoplasty February 25, 2023 Previous Tests Available previous imaging studies were [...] Ghulam Vila PA-C. Patient will follow up as needed did recommend she get an appointment with her family physician to talk about treatment for osteoporosis she has had a bone density in the past Notes This dictation was done with voice recognition software and may contain errors and omissions. Practice Management Patient screened for future fall risk: documentation of any fall with injury in past year Review of medications documented. Care Team - ESTHRE MIRANDA * Progress note Date Encounter Last Documented by 01/30/2023 Physician Specified Last brian drake on 01/31/2023; 8:46 AM, Ghulam Vila PA-C; [facility] Active Problems & Conditions - Lower Back Pain - Midback Pain Chief Complaint The Chief Complaint is: Mid-Low back pain. Referred Here Referred by. History of Present Illness Iqra Balbuena is a 67 year old female. - Allergy list reviewed - Problem list reviewed - Medication list reviewed Patient is here today with complaints of lower back pain has been going on for few months no injury she has been taking [place] 7.5 to help with pain she takes about half of those a couple times a day. She denies any radicular symptoms. She had a previous kyphoplasty at L2 years ago. She states she smokes about a pack and a half of cigarettes a day and does have oxygen that she uses sometimes at night Current Medication - Albuterol Sulfate HFA 108 [...] Tablet 30 days, 0 refills - HYDROcodone-Acetaminophen 7.5-325 MG Oral Tablet 8 days, 0 refills - Montelukast Sodium 10 MG Oral Tablet 30 days, 0 refills - traMADol HCl 50 MG Oral Tablet 10 days, 0 refills Social History Tobacco use: Tobacco use. Allergies - No Known Allergies Physical Findings - Vitals taken 01/30/2023 01:01 pm mg Height 62 in Weight 138 lbs Body Mass Index 25.2 kg/m2 Body Surface Area 1.6 m2 Patient is tender in the thoracolumbar junction he has 5 out of 5 EHL gastroc quadricep tibialis anterior. 1+ Achilles and patellar reflexes bilaterally negative straight leg raise bilaterally Tests MRI lumbar spine showed previous kyphoplasty at L2 as well as a T11 compression fracture that is acute and the thoracic spine MRI showed T11 compression fracture that is acute Assessment - Overweight T11 compression fracture Previous Tests Available previous imaging studies were [...] Ghulam Vila PA-C. Patient will follow up right now as needed I will speak to Dr. Cabello when he is back in town next week to see if he is in agreement to do a kyphoplasty with her possibly we may need to get pulmonology clearance for her as she does use oxygen but patient would like to proceed with a kyphoplasty. Notes This dictation was done with voice recognition software and may contain errors and omissions. Practice Management Use of tobacco assessment performed and patient screened for future fall risk documentation of any fall with injury in past year. Care Team - ESTHER MIRANDA
--- OUTSIDE RECORDS SUMMARY | 2023-11-03 11:55 | XMS_ITS | Clinical Summary ---
Author Name Unknown Address [address] [place] [address] [place] [address] Phone Organization [facility] Address [address] [place] [address] Phone Care Team Providers Care Dining Room Host Name Role Phone Rafi PRESCOTT, Maribel Unavailable Unavailable ESTHER MIRANDA Unavailable [phone] Federico Cabello MD Unavailable [phone] Reason for Visit and Chief Complaint The Chief Complaint is: Mid-Low back pain Problems Includes: Problems addressed during this encounter and other active Problems All Visits Onset Date Resolved Date Provider Condition S tatus Lower Back Pain 01/30/2023 Ghulam Vila PA-C A ctive Last Documented On 3 1:01PM ; [facility] Midback Pain 01/30/2023 Ghulam Vila PA-C Acti ve Last Documented On 3 1:01PM ; [facility] Plan of Treatment Fall Risk Assessment: This [...] with the patient. - Last Documented On 05/03/2023 12:29PM ; [facility] Patient was seen by myself Ghulam iVla PA-C. Patient will follow up right now [...] approved for T12 kyphoplasty. Jimbo Vila PA-C - Last Documented On 05/03/2023 12:29PM ; [facility], [facility] Instructions to patient Intervention and counseling on cessation of tobacco use Last Documented On 3 9:03AM ; [facility], [facility] Lose weight Last Documented On 3 9:03AM ; [facility], [facility] Assessments Includes: Assessments from this encounter Findings - Overweight - Last Documented On 05/03/2023 12:29PM ; [facility], [facility] T12 compression fracture - Last Documented On 05/03/2023 12:29PM ; [facility], [facility] Instructions Includes: Instructions from this encounter Instructions to patient Intervention and counseling on cessation of tobacco use Last Documented On 3 9:03AM ; [facility], [facility] Lose weight Last Documented On 3 9:03AM ; [facility], [facility] Medical Equipment - Implanted Devices Includes: Current Devices No Medical Equipment Recorded Medications Includes: Medications discussed during this encounter and other current Medications New / Renewed during this visit Federico Cabello MD on 04/10/2023 HYDROcodone-Acetaminophen 5- 325 MG Oral Tablet Provider: Federico Cabello MD 13 day supply: 40 tablet, 0 refills Diagnosis: Take 1 tablet every 8 hrs prn pain Pharmacy: [facility] - [address] [place] [address] [address] [place], [address] - Last Documented On 3 12:16PM By Federico Cabello ; [facility], [facility] Current Medications (continue as prescribed) HYDROcodone-Acetaminophen 7.5-325 MG Oral Tablet 01/25 Provider: ESTHER MIRANDA Diagnosis: Last Documented On 3 1:01PM By Yesi Marion ; [facility], [facility] amLODIPine Besylate 10 MG Oral Tablet 01/25/2023 Pro vider: ESTHER MCNALLYNER Diagnosis: Last Documented On 3 1:01PM By Yesi Marion ; [facility], [facility] Albuterol Sulfate HFA 108 (9 0 Base) MCG/ACT Inhalation Aerosol Solution 01/24/2023 Provider: ESTHER PEARCE ER Diagnosis: Last Documented On 3 1:01PM By Yesi Marion ; [facility], [facility] traMADol HCl 50 MG Oral Tablet 01/21/2023 Provider: ESTHER MIRANDA Diagnosis: Last Documented On 3 1:01PM By Yesi Marion ; [facility], [facility] Montelukast Sodium 10 MG Oral Tablet 01/15/2023 Prov ider: ESTHER RUTH Diagnosis: Last Documented On 3 1:01PM By Yesi Marion ; [facility], [facility] Bisoprolol Fumarate 10 MG Oral Tablet 01/15/2023 Pro vider: ESTHER RUTH Diagnosis: Last Documented On 3 1:01PM By Yesi Marion ; [facility], [facility] Gabapentin 600 MG Oral Tablet 01/13/2023 Provider: ESTHER MIRANDA Diagnosis: Last Documented On 3 1:01PM By Yesi Marion ; [facility] Folic Acid 1 MG Oral Tablet 01/02/2023 Provider: Diagnosis: Last Documented On 3 1:01PM By Yesi Marion ; [facility], [facility] Cyclobenzaprine HCl 5 MG Oral Tablet 01/01/2023 Prov ider: ESTHER RUTH Diagnosis: Last Documented On 3 1:01PM By Yesi Marion ; [facility] Past Medications on file HYDROcodone-Acetaminophen 5- 325 MG Oral Tablet 05/06/2023 - 05/21/2023 Provider: Federico Cabello MD Diagnosis: 1 po q 4h prn pain Last Documented On 3 4:19PM By Federico Cabello ; [facility] HYDROcodone-Acetaminophen 5- 325 MG Oral Tablet 04/18/2023 - 05/01/2023 Provider: Federico Cabello MD Diagnosis: Take 1 tablet every 8 hrs prn pain Last Documented On 3 3:26PM By Federico Cabello ; [facility] HYDROcodone-Acetaminophen 5- 325 MG Oral Tablet 02/28/2023 - 03/13/2023 Provider: Federico Cabello MD Diagnosis: Take 1 tablet every 8 hrs prn pain Last Documented On 3 3:41PM By Federico Cabello ; [facility] HYDROcodone-Acetaminophen 5- 325 MG Oral Tablet 02/19/2023 - 03/04/2023 Provider: Federico Cabello MD Diagnosis: Take 1 tablet every 8 hrs prn pain Last Documented On 3 2:11PM By Federico Cabello ; [facility] HYDROcodone-Acetaminophen 5- 325 MG Oral Tablet 02/06/2023 - 02/19/2023 Provider: Federico Cabello MD Diagnosis: Take 1 tablet every 8 hrs prn pain Last Documented On 3 2:54PM By Federico Cabello ; [facility], [facility] Medications Administered Includes: Administered Medications from this encounter No Administered Medications Recorded Vital Signs Includes: Vital Signs from this encounter Vital Name 04/10/2023 09:02A Height (in) 62 Weight (lb) 136 Body Mass Index 24.9 Body Surface Area 1.6 Last Documented: On 04/10/2023 9:02AM ; [facility], [facility] Results Includes: Results discussed during this [...] worsening with severe impact on daily functioning. Social History Description Last Updated Tobacco use 01/30/2023 Last Documented On 3 9:03AM ; [facility] Smoking Status Unknown Procedures and Surgical History Includes: Procedures from this encounter Procedures Code Diagnosis Performing Provider Service Location Service Date X-RAY EXAM OF THORACIC SPINE 2 VIEWS 30562 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, vertebra(e), init Ghulam Vila PA-C [facility] 04/10/2023 Last Documented On 3 6:31AM ; [facility] X-RAY EXAM OF LOWER SPINE 2-3 VIEWS LIMITED 39713 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, vertebra(e), indarnell Vila PA-C [facility] 04/10/2023 Last Documented On 3 6:31AM ; [facility] 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 Last Documented On 3 9:03AM ; [facility] patient screened for future fall risk: documentation of any fall with injury in past year 1100F Last Documented On 3 9:03AM ; [facility] review of medications documented 1160F Last Documented On 3 9:03AM ; [facility] an X-ray was performed 86601 Last Documented On 3 9:38AM ; [facility] Medical History Includes: Medical History addressed [...] Location Date Check-In Time Check-Out Time Diagnosis NEW PROBLEM/EST PT Ghulam Vila PA-C [facility] 04/10/20 23 8:11AM 9:10AM Overweight Insurance Includes: Active Insurance Policies Plan Name Member ID Group # Subscriber Relationship Effect kelsey Dates [facility] [id number] Iqra Balbuena Self Clinical Notes Includes: Clinical Notes from this encounter * Progress note Date Encounter Last Documented by 04/10/2023 NEW PROBLEM/EST PT Last document ed on 05/03/2023; 12:29 PM, Ghulam Vila PA-C; [facility], [facility] Active Problems & Conditions - Lower [...]
--- OUTSIDE RECORDS SUMMARY | 2023-11-03 11:55 | XMS_ITS ---
Author Name Carlos Tatum Address [address] [place] [address] Organization Unknown Address [address] [place] [id number] ALLERGIES AND ADVERSE REACTIONS No information ASSESSMENT No information CHIEF COMPLAINT No information MEDICATIONS No information OBJECTIVE DATA No information PHYSICAL EXAMINATION No information TREATMENT PLAN Planned Care Start Date Provider Encounter for Check-up [id number] [facility] [place] PROBLEMS No information RESULTS No information REVIEW OF SYSTEMS No information SUBJECTIVE DATA No information VITAL SIGNS No information
[2023-11-03 12:39] LABS: Microscopic, Urine URINE MICROSCOPIC (MICROSCOPIC)
[2023-11-03 12:40] LABS: Appearance,Urine SL CLOUDY (Clear); Blood, Urine 1+ (Negative); Color,Urine YELLOW (Yellow); Glucose,Urine (UA) Negative (Negative); Ketones,Urine 1+ (Negative); Leukocyte Esterase,Urine 1+ (Negative); Nitrate,Urine Negative (Negative); PH,Urine 6.5 (5.0-8.5); Protein,Urine 2+ (Negative); Urobilinogen,Urine 0.2 EU/dl (0.2)
[2023-11-03 12:43] LABS: Bilirubin,Urine 2+ (Negative)
[2023-11-03 12:52] LABS: Bacteria,Urine 3+ /lpf; RBC,Urine Occasional #/hpf (0-3)
[2023-11-03 13:01] VITALS: BP 167/111; PULSE 127; RESP 17; O2SAT 94
--- NOTE | 2023-11-03 13:58 | ED_ITS ---
Discharge Plan Disposition Patient Disposition: Home, Self-Care Condition: Good Prescriptions Prescriptions: No Action ipratropium-albuterol 0.5 mg-3 mg(2.5 mg base)/3 mL solution for nebulization 3 ml INHALATION QIDP PRN (Reason: Shortness Of Breath) bisoprolol fumarate 10 mg tablet 10 mg PO DAILY 30 Days Qty: 30 2RF gabapentin 600 MG tablet 600 mg PO TID Hold Instructions: Resume on 10/28/22. montelukast 10 MG tablet 10 mg PO PM furosemide 20 MG tablet 20 mg PO DAILY Hold Instructions: Resume on 10/28/22. lisinopril-hydrochlorothiazide 20-25 mg tablet 1 tab PO BID Hold Instructions: Resume on 10/28/22. folic acid 1 mg Tablet 1 mg PO DAILY Qty: 30 3RF thiamine mononitrate (vit B1) 100 mg Tablet 100 mg PO DAILY 30 Days Qty: 30 3RF fluticasone propion-salmeterol [Advair Diskus] 250-50 mcg/dose blister with device 1 inh INHALATION BID Spiriva Respimat 2.5 mcg/actuation mist 2 inh inhalation DAILY Referrals Follow up/Referrals: Provider,Referral, MD [Primary Care Provider] - See instructions Activity Restrictions/Add. Instructions Additional Instructions/Restrictions: Please follow-up with your industry segment specialist for further management of your back issue. I strongly encourage you to resume your blood pressure medication. Please return with any new or worsening symptoms Clinical Impressions Clinical Impression: Low back pain, Hypertension Instructions Patient Instructions: DI for Low Back Pain Discharge ED Provider: Baldev Tinajero Adult HPI General Chief complaint: Back Pain/Injury Stated complaint: BACK PAIN Time Seen by Provider: 11/03/23 13:58 Mode of Arrival: EMS Source of Information: Patient Limitations: No Limitations Description of Symptoms (Recalled from ER Triage Doc. by RN): Patient complaint of ongoing lower back pain that is progressively getting worse since last . Also states she has been unable to remember to take her home medications because of the pain pill that she has been taking. States she does know that she has not taken her medications today and she has not had a pain pill today. History of Present Illness HPI narrative: This patient presents for evaluation of back pain, hypertension Onset: Gradual, back pain has been ongoing issue for several months Location: Lumbar spine Duration: Multiple weeks, no acute changes today Characteristic: Dull Alleviating/Aggrivating Factors: Positional, ambulation Radiation: Denies Timing: Constant Severity: Moderate Associated symptoms: Patient has been noncompliant with antihypertensives, does not disclose to me any particular reason why this is the case, but symptoms have been alleviated with home oxycodone ROS: Denies incontinence saddle anesthesia, recent trauma, does note recent MRI with no acute changes since that MRI which reveals no emergent cord compression, followed by orthopedic surgery for her symptoms. Denies headache, chest pain, dysuria, shortness of breath, syncope, presyncope, palpitations Please note that above description of symptoms, in this electronic medical record under categorization of recalled from ER triage doctor by RN are reflective of an initial nursing assessment, however, is not reflective of my full history and physical exam that was personally taken and clarified. Consequentially, this preceding description of symptoms, which may include the patient's categorized chief complaint in the EMR, do not reflect my personal clinical impression, and the ultimate description of history of present illness and patient stated complaints should be deferred to this section of the note. Unless stated otherwise or congruent with this section of the note, additional signs, symptoms, or incongruence should be interpreted as inaccurate with my clinical impression. Related Data Home Medications Medication Instructions Recorded Confirmed furosemide 20 mg tablet 20 mg PO DAILY Fluid 07/16/17 10/25/22 gabapentin 600 mg tablet 600 mg PO TID Pain 07/16/17 10/25/22 montelukast 10 mg tablet 10 mg PO PM Allergy symptoms 07/16/17 10/26/22 ipratropium 0.5 mg-albuterol 3 mg 3 ml inhalation QIDP PRN Shortness 07/03/21 10/26/22 (2.5 mg base)/3 mL nebulization Of Breath soln fluticasone 250 mcg-salmeterol 50 1 inh inhalation BID COPD 04/19/22 10/25/22 mcg/dose blistr powdr for inhalation (Advair Diskus) tiotropium bromide 2.5 2 inh inhalation DAILY COPD 05/03/22 10/25/22 mcg/actuation mist for inhalation (Spiriva Respimat) lisinopril 20 1 tab PO BID Hypertension 10/26/22 10/26/22 mg-hydrochlorothiazide 25 mg tablet Previous Rx's Medication Instructions Recorded folic acid 1 mg tablet 1 mg PO DAILY #30 tabs 10/27/22 thiamine mononitrate (vit B1) 100 100 mg PO DAILY 30 days #30 tabs 10/27/22 mg tablet bisoprolol fumarate 10 mg tablet 10 mg PO DAILY Heart rate 30 days 04/30/23 #30 tabs Allergies Allergy/AdvReac Type Severity Reaction Status Date / Time No Known Allergies Allergy Verified 05/02/22 11:14 [facility] Disclaimer: The information contained in this section may have been updated after the patient was seen, as this information can be updated by other users. Medical History (Updated 11/03/23 @ 15:36 by Baldev Tinajero MD) Hypokalemia Elevated troponin COPD (chronic obstructive pulmonary disease) Nocturnal hypoxemia Pulmonary emphysema Incidental pulmonary nodule, greater than or equal to 8mm Smoking greater than 30 pack years Dyspnea on exertion Tobacco abuse disorder Tobacco abuse counseling COPD (chronic obstructive pulmonary disease) Cervical cancer Surgical History History of dilation and curettage History of back surgery Family History Other Diabetes Social History (Updated 10/25/22 @ 20:07 by Alice Mallory RN) Smoking Status: Unknown if ever smoked second hand exposure: Yes alcohol intake: current current occupational status: unemployed Travel in the last 8 weeks: None household members: spouse housing: house current occupational exposures/hazards: No ROS Obtained: Yes other As per HPI Physical Exam General General appearance: alert and in no apparent distress Head Head exam: atraumatic and normocephalic Eye Eye exam: Present normal appearance Neck Neck exam: Present normal inspection Chest Chest inspection: Present normal inspection and symmetric chest wall rise Respiratory Respiratory exam: Present normal lung sounds bilaterally; Absent respiratory distress Cardiovascular Cardiovascular exam: Present regular rate and normal rhythm Abdominal Exam Abdominal exam: Present soft Back Exam Comment: Midline lumbar spinal tenderness to palpation, ambulatory, gait within normal limits Neurological Exam Neurological exam: Present alert and oriented X3 Psychiatric Psychiatric exam: Present normal affect and normal mood Skin Skin exam: Present warm and dry Medical Decision Making Medical Records Medical records reviewed: Yes I reviewed the patient's medical records. Azael Inquiry Pt receiving controlled substance: No Vital Signs: 11/03/23 11:49 11/03/23 13:01 11/03/23 14:03 Temperature 97.9 F Temperature Source Oral Pulse Rate 127 H 104 H Pulse Rate [Radial] 107 H Respiratory Rate 16 17 20 Blood Pressure 167/111 H 199/105 H Blood Pressure [Right Arm] 168/105 H Blood Pressure Mean 136 Blood Pressure Mean [Right Arm] 126 Blood Pressure Source Blood Pressure Source [Right Arm] Automatic Cuff Blood Pressure Position Blood Pressure Position [Right Arm] Sitting 02 Sat by Pulse Oximetry 93 L 94 L 95 Oxygen Delivery Method Room Air Room Air 11/03/23 15:46 Temperature 98.1 F Temperature Source Oral Pulse Rate 104 H Pulse Rate [Radial] Respiratory Rate 20 Blood Pressure 199/105 H Blood Pressure [Right Arm] Blood Pressure Mean Blood Pressure Mean [Right Arm] Blood Pressure Source Automatic Cuff Blood Pressure Source [Right Arm] Blood Pressure Position Sitting Blood Pressure Position [Right Arm] 02 Sat by Pulse Oximetry Oxygen Delivery Method Room Air Lab Data Lab Results 11/03/23 12:30: Urine Color Yellow, Urine Appearance Sl cloudy, Urine pH 6.5, Ur Specific [place] 1.020, Urine Protein 2+, Urine Glucose (UA) Negative, Urine Ke tones 1+, Urine Blood 1+, Urine Nitrate Negative, Urine Bilirubin 2+ A, Urine Urobilinogen 0.2, Ur Leukocyte Esterase 1+ A, Urine RBC Occasional, Urine WBC 10-20, Ur Squamous Epith Cells 3-5, Urine Bacteria 3+ Orders (Tests/Meds): ED MEDICATIONS Discontinued Medications Generic Name Dose Route Start Last Admin Trade Name Freq PRN Reason Stop Dose Admin Bisoprolol Fumarate 10 mg 11/03/23 14:13 11/03/23 14:25 Bisoprolol 5mg Tablet PO 11/03/23 14:14 10 mg ONCE STA Administration Lisinopril/HCTZ 1 each 11/03/23 14:15 11/03/23 14:25 Lisinopril/Hctz 10-12.5mg Tablet PO 11/03/23 14:16 1 each ONCE STA Administration Oxycodone/Acetaminophen 1 each 11/03/23 14:15 11/03/23 14:19 Oxycodone 10mg W/Apap 325mg Tablet PO 11/03/23 14:16 1 each ONCE ONE Administration ORDERS Category Date Time Status Urinalysis-Acute [Urinalysis and Microscopic] Stat Lab 11/03/23 12:30 Completed Urine Culture Stat Micro 11/03/23 12:30 Received Medical Decision Narrative: Patient with history and exam per above presenting for evaluation of hypertension, in the setting of noncompliance, and chronic back pain Diagnoses considered include hypertensive urgency, hypertensive emergency, patient clinically describes no symptoms of endorgan dysfunction nor any acute changes in her back pain to warrant head imaging, reimaging of her known lumbar spinal pathology, or goal of precipitous drop of blood pressure ED workup and treatment included: Home antihypertensive and home oxycodone My clinical impression at this time is most consistent with hypertension in the setting of noncompliance, chronic back pain without any acute worrisome features I discussed my clinical impression with patient and answered all questions. At this time, the evidence for any other entities in the differential is insufficient to warrant any further testing or ED observation. This was explained to the patient. The patient was advised that persistent or worsening symptoms require further evaluation. I confirmed the patient's understanding of this discussion. Critical Care Critical Care Time Critical Care Time: No
[2023-11-03 14:03] VITALS: BP 199/105; PULSE 104; RESP 20; O2SAT 95
[2023-11-03] MEDS: OXYCODONE 10MG W/APAP 325MG TABLET 1 EACH PO (14:19)
[2023-11-03] MEDS: LISINOPRIL/HCTZ 10-12.5MG TABLET 1 EACH PO (14:25)
[2023-11-03] MEDS: BISOPROLOL 5MG TABLET 10 MG PO (14:25)
[2023-11-03 15:46] VITALS: BP 199/105; PULSE 104; RESP 20; TEMP 36.7; O2SAT 95
== END 2023-11-03 15:47 | disposition home or self-care (01) ==
PROVIDERS: Emergency Provider Emergency Medicine
DX: M54.50 Low back pain, unspecified (principal); B96.89 Other specified bacterial agents as the cause of diseases classified elsewhere; I10 Essential (primary) hypertension; J44.9 Chronic obstructive pulmonary disease, unspecified; Z87.891 Personal history of nicotine dependence
CPT/HCPCS: 81001; 87086; 99283

== ENCOUNTER 2024-01-27 10:45 | Outpatient (CLI) | payer MEDICARE, SELFPAY ==
--- OUTSIDE RECORDS SUMMARY | 2024-01-27 10:48 | XMS_ITS | Clinical Summary ---
Author Name Unknown Address [address] [place] [address] [place] [address] Phone Organization [facility] Address [address] [place] [address] Phone Care Team Providers Care Steeple Jack Name Role Phone Rafi PRESCOTT, Maribel Unavailable Unavailable ESTHER MIRANDA Unavailable [phone] Federico Cabello MD Unavailable [phone] Reason for Visit and Chief Complaint The Chief Complaint is: Mid-Low back pain Problems Includes: Problems addressed during this encounter and other active Problems Current Visit Onset Date Resolved Date Provider Conditio n Status Lower Back Pain 01/30/2023 Ghulam Vila PA-C A ctive Last Documented On 3 1:01PM ; [facility] Past Visits Onset Date Resolved Date Provider Condition Status Midback Pain 01/30/2023 Ghulam Vila PA-C Acti ve Last Documented On 3 1:01PM ; [facility] Plan of Treatment - Patient screened for future fall risk: documentation of any fall with injury in past year - Last Documented On 12/19/2023 3:28PM ; [facility] Fall Risk Assessment: This patient has been [...] with the patient. - Last Documented On 12/19/2023 3:28PM ; [facility] Referrals To Diagnosis Consult for Pain Management Toba gl accountant abuse counseling Note: Wait for note to send // cc*Have order ready on paper Last Documented On 4 2:10PM ; [facility] Instructions to patient Intervention and counseling on cessation of tobacco use Last Documented On 4 9:11AM ; [facility] Intervention and counseling on cessation of tobacco use Last Documented On 4 9:26AM ; [facility] Lose weight Last Documented On 4 9:50AM ; [facility] Assessments Includes: Assessments from this encounter Findings - Overweight - Last Documented On 12/19/2023 3:28PM ; [facility] Instructions Includes: Instructions from this encounter Instructions to patient Intervention and counseling on cessation of tobacco use Last Documented On 4 9:11AM ; [facility] Intervention and counseling on cessation of tobacco use Last Documented On 4 9:26AM ; [facility] Lose weight Last Documented On 4 9:50AM ; [facility] Medical Equipment - Implanted Devices Includes: Current Devices No Medical Equipment Recorded Medications Includes: Medications discussed during this encounter and other current Medications Discontinued / Stopped on this date Stephanie Espinoza APRN on 11/12/2023 Magnesium Gluconate 500 MG Oral Tablet Pr ovider: Stephanie Espinoza APRN Diagnosis: Last Documented On 4 9:12AM By Isadora Cm ; [facility] Potassium Chloride Isela ER 2 0 MEQ Oral Tablet Extended Release Provider: Stephanie Espinoza APRN Diagnosis: Last Documented On 4 9:12AM By Isadora Cm ; [facility] Lisinopril-hydroCHLOROthiazi de 20-25 MG Oral Tablet Provider: ESTHER MIRANDA Diagnosis: Last Documented On 4 9:12AM By Isadora Cm ; [facility] Albuterol Sulfate HFA 108 (9 0 Base) MCG/ACT Inhalation Aerosol Solution Provider: ESTHER PEARCE ER Diagnosis: Last Documented On 4 9:12AM By Isadora Cm ; [facility] Bisoprolol Fumarate 10 MG Oral Tablet Pro vider: ESTHER MIRANDA Diagnosis: Last Documented On 4 9:12AM By Isadora Cm ; [facility] Montelukast Sodium 10 MG Oral Tablet Prov ider: ESTHER MIRANDA Diagnosis: Last Documented On 4 9:12AM By Isadora Cm ; [facility] Gabapentin 600 MG Oral Tablet Provider: ESTHER RUTH Diagnosis: Last Documented On 4 9:12AM By Isadora Cm ; [facility] Current Medications (continue as prescribed) Calcium Carb-Cholecalciferol 600-5 MG-MCG Oral Tablet 11/26/2023 Provider: Stephanie Espinoza APRN Diagnosis: Last Documented On 4 9:11AM By Isadora Cm ; [facility] Albuterol Sulfate HFA 108 (9 0 Base) MCG/ACT Inhalation Aerosol Solution 11/26/2023 Provider: Stephanie gibbons APRN Diagnosis: Last Documented On 4 9:11AM By Isadora Cm ; [facility] Furosemide 40 MG Oral Tablet 11/26/2023 Provider: Diagnosis: Last Documented On 4 9:11AM By Isadora Cm ; [facility] Lisinopril-hydroCHLOROthiazi de 20-25 MG Oral Tablet 11/26/2023 Provider: ESTHER MIRANDA Diagnosis: Last Documented On 4 9:11AM By Isadora Cm ; [facility] Magnesium Gluconate 500 MG Oral Tablet 11/26/2023 Pr ovider: Stephanie Espinoza APRN Diagnosis: Last Documented On 4 9:11AM By Isadora Cm ; [facility] Vitamin D3 1.25 MG (60053 UT) Oral Capsule 11/26/2023 Provider: Stephanie Espinoza APRN Diagnosis: Last Documented On 4 9:11AM By Isadora Cm ; [facility] Potassium Chloride Isela ER 2 0 MEQ Oral Tablet Extended Release 11/26/2023 Provider: Stephanie Espinoza APRN Diagnosis: Last Documented On 4 9:11AM By Isadora Cm ; [facility] Montelukast Sodium 10 MG Oral Tablet 11/26/2023 Prov ider: Diagnosis: Last Documented On 4 9:11AM By Isadora Cm ; [facility] Bisoprolol Fumarate 10 MG Oral Tablet 11/26/2023 Pro vider: Diagnosis: Last Documented On 4 9:11AM By Isadora Cm ; [facility] Folinic-Plus 4-50-2 MG Oral Tablet 11/12/2023 Provid er: Stephanie Espinoza APRN Diagnosis: Last Documented On 4 9:11AM By Isadora Cm ; [facility] Gabapentin 800 MG Oral Tablet 11/12/2023 Provider: Stephanie Espinoza APRN Diagnosis: Last Documented On 4 9:11AM By Isadora Cm ; [facility] HYDROcodone-Acetaminophen 7.5-325 MG Oral Tablet 01/25 Provider: ESTHER MIRANDA Diagnosis: Last Documented On 3 1:01PM By Yesi Marion ; [facility] amLODIPine Besylate 10 MG Oral Tablet 01/25/2023 Pro vider: ESTHER MIRANDA Diagnosis: Last Documented On 3 1:01PM By Yesi Marion ; [facility] traMADol HCl 50 MG Oral Tablet 01/21/2023 Provider: ESTHER MIRANDA Diagnosis: Last Documented On 3 1:01PM By Yesi Marion ; [facility] Folic Acid 1 MG Oral [...] On 3 3:41PM By Federico Cabello ; [facility] HYDROcodone-Acetaminophen 5- 325 MG Oral Tablet 02/19/2023 - 03/04/2023 Provider: Federico Cabello MD Diagnosis: Take 1 tablet every 8 hrs prn pain Last Documented On 3 2:11PM By Federico Cabello ; [facility] HYDROcodone-Acetaminophen 5- 325 MG Oral Tablet 02/06/2023 - 02/19/2023 Provider: Federico Cabello MD Diagnosis: Take 1 tablet every 8 hrs prn pain Last Documented On 3 2:54PM By Federico Cabello ; [facility] Medications Administered Includes: Administered Medications from this encounter No Administered Medications Recorded Vital Signs Includes: Vital Signs from this encounter Vital Name 12/19/2023 09:25A Height (in) 62 Weight (lb) 120 Body Mass Index 21.9 Body Surface Area 1.5 Pain Level 10 Note: lc Last Documented: On 12/19/2023 9:25AM ; [facility] Results Includes: Results discussed during this encounter No Results Recorded For Specified Dates History of Present Illness Includes: History of Present Illness from this encounter JOSE ARMANDO Balbuena is a 68 year old female. - Allergy list reviewed - Problem list reviewed - Medication list reviewed - Previous history of chronic pain - Pain is constant (100% of the time) - Patient pain level from 1-10: 10 - - Review of medications documented Social History Description Last Updated Alcohol use 12/19/2023 Last Documented On 4 9:52AM ; [facility] Caffeine use 12/19/2023 Last Documented On 4 9:52AM ; [facility] No recent change in diet 12/19/2023 Last Documented On 4 9:52AM ; [facility] Not exercising regularly 12/19/2023 Last Documented On 4 9:52AM ; [facility] Not using drugs 12/19/2023 Last Documented On 4 9:52AM ; [facility] Yes, current smoker. 12/19/2023 Last Documented On 4 9:52AM ; [facility] Tobacco use 01/30/2023 Last Documented On 4 9:11AM ; [facility] Smoking Status Unknown Procedures and Surgical History Includes: Procedures from this encounter Procedures Code Diagnosis Performing Provider Service Location Service Date X-RAY EXAM OF LOWER SPINE 4-5 VIEWS 33283 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 w crmichel path fx, verteb, 7thD Federico Cabello MD [facility] 12/19/2023 Last Documented On 4 12:53PM ; [facility] intervention and counseling on cessation of toba gl accountant use 4000F Last Documented On 4 9:11AM ; [facility] patient screened for future fall risk: documentation of any fall with injury in past year 1100F Last Documented On 4 9:11AM ; [facility] review of medications documented 1160F Last Documented On 4 9:11AM ; [facility] an X-ray was performed 37243 Last Documented On 4 9:50AM ; [facility] an MRI was performed [facility] [id number] Last Documented On 4 9:27AM ; [facility] Surgical History Last Updated History of back surgery T11 Kypho 3 ~T12 Kypho 05/06/23 12/19/2023 Last Documented On 4 9:55AM ; [facility] Medical History Includes: Medical History addressed during this encounter Description Last Updated History of Heartburn / Acid Reflux 12/18 Last Documented On 4 9:51AM ; [facility] History of History of Emphysema 12/19/19 Last Documented On 4 9:51AM ; [facility] Family History Includes: Family History addressed during this encounter Description Last Updated No significant family history 12/19/2023 Last Documented On 4 9:55AM ; [facility] Review of Systems Includes: Review of Systems from this encounter Systemic: No symptoms, not feeling tired, no recent weight loss, and no recent weight gain. Head: No headache and no sinus pain. Eyes: No vision problems. Cataracts. No Glasses/Contacts and no Glaucoma. Otolaryngeal: No hearing loss and no tinnitus. Cardiovascular: No chest pain or discomfort, no palpitations, no Hypertension, and no High Cholesterol. Pulmonary: Pulmonary symptoms Copd. No daytime asthma symptoms and no chronic cough. No wheezing. Gastrointestinal: No heartburn and no abdominal pain. No Indigestion, no Peptic Ulcer, no GI Stomach Bleed, no Ulcers, and no Acid Reflux. Endocrine: No hot flashes, no muscle weakness, no Diabetes, no Hypothyroid, and no Hyperthyroid. Hematologic: No easy bleeding, no tendency for easy bruising, and no Anemia. Musculoskeletal: No Arthritis and no lower back pain. No soft tissue swelling and no localized joint pain. Neurological: No dizziness, no convulsions, and no numbness. Psychological: No anxiety, no emotional lability, no depression, and no insomnia. Not crying for no reason. Skin: No dry skin. No Ulcers, no Scars, and no rash. Allergic and Immunologic: No complaint of seasonal allergic reaction. Mental Status Includes: Mental Status from this encounter Description No anxiety Functional Status Includes: Functional Status from this encounter No Functional Status Recorded Physical Exam Includes: Physical Exam from this encounter Allergies Includes: Active Allergies No Known Allergies Encounters Encounter Provider Location Date Check-In Time Check-Out Time Diagnosis NEW PROBLEM/EST PT [facility] 9:01AM 9:43AM Overweight Insurance Includes: Active Insurance Policies Plan Name Member ID Group # Subscriber Relationship Effect kelsey Dates 1 - [employer] [id number] Iqra Balbuena Self Clinical Notes Includes: Clinical Notes from this encounter No Clinical Notes Recorded
--- OUTSIDE RECORDS SUMMARY | 2024-01-27 10:48 | XMS_ITS | Clinical Summary ---
Author Name Unknown Address [address] [place] [address] [place] [address] Phone Organization [facility] Address [address] [place] [address] Phone Care Team Providers Care Operator Supply Name Role Phone Rafi PRESCOTT, Maribel Unavailable Unavailable ESTHER MIRANDA Unavailable [phone] Federico Cabello MD Unavailable [phone] Reason for Visit and Chief Complaint The Chief Complaint is: Mid-Low back pain Problems Includes: Problems addressed during this encounter and other active Problems All Visits Onset Date Resolved Date Provider Condition S tatus Lower Back Pain 01/30/2023 Ghulam Vila PA-C A ctive Last Documented On 3 1:01PM ; [facility] Midback Pain 01/30/2023 Ghulam Vila PA-C Acti ve Last Documented On 3 1:01PM ; [facility] Plan of Treatment Fall Risk Assessment: [...] - Last Documented On 05/15/2023 9:01AM ; [facility] Patient was seen by myself Ghulam Vila [...] - Last Documented On 05/15/2023 9:01AM ; [facility] Instructions to patient Intervention and counseling on cessation of tobacco use Last Documented On 3 8:48AM ; [facility] Lose weight Last Documented On 3 8:48AM ; [facility] Assessments Includes: Assessments from this encounter Findings - Overweight - Last Documented On 05/15/2023 9:01AM ; [facility] T12 kyphoplasty 05/06/2023 - Last Documented On 05/15/2023 9:01AM ; [facility] Instructions Includes: Instructions from this encounter Instructions to patient Intervention and counseling on cessation of tobacco use Last Documented On 3 8:48AM ; [facility] Lose weight Last Documented On 3 8:48AM ; [facility] Medical Equipment - Implanted Devices Includes: Current Devices No Medical Equipment Recorded Medications Includes: Medications discussed during this encounter and other current Medications Current Medications (continue as prescribed) Calcium Carb-Cholecalciferol 600-5 MG-MCG Oral Tablet 11/26/2023 Provider: Stephanie Espinoza APRN Diagnosis: Last Documented On 4 9:11AM By Isadora Cm ; [facility] Albuterol Sulfate HFA 108 (9 0 Base) MCG/ACT Inhalation Aerosol Solution 11/26/2023 Provider: Stephanie gibbons APRN Diagnosis: Last Documented On 4 9:11AM By Isadora Cm ; [facility] Furosemide 40 MG Oral Tablet 11/26/2023 Provider: Diagnosis: Last Documented On 4 9:11AM By Isadora Cm ; [facility] Lisinopril-hydroCHLOROthiazi de 20-25 MG Oral Tablet 11/26/2023 Provider: ESTHER MIRANDA Diagnosis: Last Documented On 4 9:11AM By Isadora Cm ; [facility] Magnesium Gluconate 500 MG Oral Tablet 11/26/2023 Pr ovider: Stephanie Espinoza APRN Diagnosis: Last Documented On 4 9:11AM By Isadora Cm ; [facility] Vitamin D3 1.25 MG (77036 UT) Oral Capsule 11/26/2023 Provider: Stephanie Espinoza APRN Diagnosis: Last Documented On 4 9:11AM By Isadora Cm ; [facility] Potassium Chloride Isela ER 2 0 MEQ Oral Tablet Extended Release 11/26/2023 Provider: Stephanie Espinoza APRN Diagnosis: Last Documented On 4 9:11AM By Isadora Cm ; [facility] Montelukast Sodium 10 MG Oral Tablet 11/26/2023 Prov ider: Diagnosis: Last Documented On 4 9:11AM By Isadora Cm ; [facility] Bisoprolol Fumarate 10 MG Oral Tablet 11/26/2023 Pro vider: Diagnosis: Last Documented On 4 9:11AM By Isadora Cm ; [facility] Folinic-Plus 4-50-2 MG Oral Tablet 11/12/2023 Provid er: Stephanie Espinoza APRN Diagnosis: Last Documented On 4 9:11AM By Isadora Cm ; [facility] Gabapentin 800 MG Oral Tablet 11/12/2023 Provider: Stephanie Espinoza APRN Diagnosis: Last Documented On 4 9:11AM By Isadora Cm ; [facility] HYDROcodone-Acetaminophen 7.5-325 MG Oral Tablet 01/25 Provider: ESTHER MIRANDA Diagnosis: Last Documented On 3 1:01PM By Yesi Marion ; [facility] amLODIPine Besylate 10 MG Oral [...] On 3 2:54PM By Federico Cabello ; [facility] Medications Administered Includes: Administered Medications from this encounter No Administered Medications Recorded Vital Signs Includes: Vital Signs from this encounter Vital Name 05/15/2023 08:49A Height (in) 62 Weight (lb) 136 Body Mass Index 24.9 Body Surface Area 1.6 Note: Last Documented: On 05/15/2023 8:49AM ; [facility] Results Includes: Results discussed during this encounter No Results Recorded For Specified Dates History of Present Illness Includes: History of Present Illness from this encounter HPI Iqra Balbuena is a 68 year old [...] 01/30/2023 Last Documented On 3 8:48AM ; [facility] Smoking Status Unknown Procedures and Surgical History Includes: Procedures from this encounter Procedures Code Diagnosis Performing Provider Service L ocation Service Date intervention and counseling on cessation of tobacco use 4000F Last Documented On 3 8:48AM ; [facility] patient screened for future fall risk: documentation of any fall with injury in past year 1100F Last Documented On 3 8:48AM ; [facility] review of medications documented 1160F Last Documented On 3 8:48AM ; [facility] Medical History Includes: Medical History [...] Time Diagnosis Post Op [facility]:59[facility] Overweight Insurance Includes: Active Insurance Policies Plan Name Member ID Group # Subscriber Relationship Effect kelsey Dates 1 - [employer] [id number] Iqra Balbuena Self Clinical Notes Includes: Clinical Notes from this encounter * Progress note Date Encounter Last Documented by 05/15/2023 Post Op Last documented on 05/15/2023; 9:01 AM, Ghulam Vila PA-C; [facility] Active Problems & Conditions - Lower [...]
--- OUTSIDE RECORDS SUMMARY | 2024-01-27 10:48 | XMS_ITS | Clinical Summary ---
Author Name Unknown Address [address] [place] [address] [place] [address] Phone Organization [facility] Address [address] [place] [address] Phone Care Team Providers Care Tool Carrier Name Role Phone Rafi PRESCOTT, Maribel Unavailable Unavailable ESTHER MIRANDA Unavailable [phone] Irineo ESPINOZA, Federico Lewis Unavailable [phone] Reason for Visit and Chief Complaint Kyphoplasty Problems Includes: Problems addressed during this encounter and other active Problems All Visits Onset Date Resolved Date Provider Condition S tatus Lower Back Pain 01/30/2023 Ghulam Lewis ctive Last Documented On 3 1:01PM ; [facility] Midback Pain 01/30/2023 Ghulam iVla PA-C Acti ve Last Documented On 3 1:01PM ; [facility] Plan of Treatment No Plan of Treatment [...] prn pain Pharmacy: [facility] .[facility] [address], [address] - Last Documented On 3 4:19PM By Federico Cabello ; [facility] Current Medications (continue as prescribed) Calcium Carb-Cholecalciferol 600-5 MG-MCG Oral Tablet 11/26/2023 Provider: Stephanie Espinoza APRN Diagnosis: Last Documented On 4 9:11AM By Isadora Cm ; [facility] Albuterol Sulfate HFA 108 (9 0 Base) MCG/ACT Inhalation Aerosol Solution 11/26/2023 Provider: Stephanie gibbons APRN Diagnosis: Last Documented On 4 9:11AM By Isadora Cm ; [facility] Furosemide 40 MG Oral Tablet 11/26/2023 Provider: Diagnosis: Last Documented On 4 9:11AM By Isadora Cm ; [facility] Lisinopril-hydroCHLOROthiazi de 20-25 MG Oral Tablet 11/26/2023 Provider: ESTHER MIRANDA Diagnosis: Last Documented On 4 9:11AM By Isadora Cm ; [facility] Magnesium Gluconate 500 MG Oral Tablet 11/26/2023 Pr ovider: Stephanie Espinoza APRN Diagnosis: Last Documented On 4 9:11AM By Isadora Cm ; [facility] Vitamin D3 1.25 MG (82288 UT) Oral Capsule 11/26/2023 Provider: Stephanie Espinoza APRN Diagnosis: Last Documented On 4 9:11AM By Isadora Cm ; [facility] Potassium Chloride Isela ER 2 0 MEQ Oral Tablet Extended Release 11/26/2023 Provider: Stephanie Espinoza APRN Diagnosis: Last Documented On 4 9:11AM By Isadora Cm ; [facility] Montelukast Sodium 10 MG Oral Tablet 11/26/2023 Prov ider: Diagnosis: Last Documented On 4 9:11AM By Isadora Cm ; [facility] Bisoprolol Fumarate 10 MG Oral Tablet 11/26/2023 Pro vider: Diagnosis: Last Documented On 4 9:11AM By Isadora Cm ; [facility] Folinic-Plus 4-50-2 MG Oral Tablet 11/12/2023 Provid er: Stephanie Espinoza APRN Diagnosis: Last Documented On 4 9:11AM By Isadora Cm ; [facility] Gabapentin 800 MG Oral Tablet 11/12/2023 Provider: Stephanie Espinoza APRN Diagnosis: Last Documented On 4 9:11AM By Isadora Cm ; [facility] HYDROcodone-Acetaminophen 7.5-325 MG Oral Tablet 01/25 Provider: ESTHER MIRANDA Diagnosis: Last Documented On 3 1:01PM By Yesi Marion ; [facility] amLODIPine Besylate 10 MG Oral Tablet 01/25/2023 Pro vider: ESTHER RUTH Diagnosis: Last Documented On 3 1:01PM By Yesi Marion ; [facility] traMADol HCl 50 MG Oral Tablet 01/21/2023 Provider: ESTHER MIRANDA Diagnosis: Last Documented On 3 1:01PM By Yesi Marion ; [facility] Folic Acid 1 MG Oral Tablet 01/02/2023 Provider: Diagnosis: Last Documented On 3 1:01PM By Yesi Marion ; [facility] Cyclobenzaprine HCl 5 MG Oral Tablet 01/01/2023 Prov ider: ESTHER RUTH Diagnosis: Last Documented On 3 1:01PM By Yesi Marion ; [facility] Medications Administered Includes: Administered Medications from this [...] Date percutaneous vertebral augmentation incl cavity creation 27745 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, vertebra(e), init Federico Cabello MD [facility] 05/06/2023 Last Documented On 3 9:19AM ; [facility] Medical History Includes: Medical History [...] Check-Out Time Diagnosis Kyphoplasty Federico Cabello MD [facility] 05/06/20 7:06AM 9:05AM Insurance Includes: Active Insurance Policies Plan Name Member ID Group # Subscriber Relationship Effect kelsey Dates 1 - [employer] [id number] Iqra Balbuena Self Clinical Notes Includes: Clinical Notes from this encounter No Clinical Notes Recorded
--- OUTSIDE RECORDS SUMMARY | 2024-01-27 10:48 | XMS_ITS ---
Care Plan - [facility], [facility] Created on: January 27, 2024 Melissa Balbuenayn : 1955 Sex: Female Author Name Unknown Address [address] [place] [address] [place] [address] Phone Organization [facility] Address [address] [place] [address] Phone Care Team Providers Care Bottom Man Name Role Phone Rafi PRESCOTT, Maribel Unavailable Unavailable ESTHER MIRANDA Unavailable [phone] Irineo ESPINOZA, Federico Lewis Unavailable [phone]
--- OUTSIDE RECORDS SUMMARY | 2024-01-27 10:48 | XMS_ITS ---
Author Name Unknown Address [address] [place] [address] [place] [address] Phone Organization [facility] Address [address] [place] [address] Phone Care Team Providers Care Precast Worker Name Role Phone Rafi PRESCOTT, Maribel Unavailable Unavailable ESTHER MIRANDA Unavailable [phone] Irineo ESPINOZA, Federico Lewis Unavailable [phone] Problems Includes: Active, inactive, and resolved Problems All Visits Onset Date Resolved Date Provider Condition S tatus Lower Back Pain 01/30/2023 Ghulam Lewis ctive Last Documented On 3 1:01PM ; [facility] Midback Pain 01/30/2023 Ghulam Vila PA-C Acti ve Last Documented On 3 1:01PM ; [facility] Plan of Treatment Findings Encounter Date Patient screened for future fall risk: documentation of any fall with injury in past year NEW PROBLEM/EST PT with Federico Cabello MD 12/19/2023 Last Documented On 4 3:28PM ; [facility] Referrals To Diagnosis Consult with Dishroom Attendant Overw eight Last Documented On 3 1:53PM ; [facility] Consult with Dishroom Attendant Overw eight Note: STAT to see pulmonolog y Dr. Herrmann if Ash to see if patient can have surgery. She is on O2 and has a T11 compression fracture plan would be for a T11 kypho if cleared. 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 Note: Wait for note to send // cc*Have order ready on paper Last Documented On 4 2:10PM ; [facility] Instructions to patient Intervention and counseling on cessation of tobacco use Last Documented On 4 9:11AM ; [facility] Intervention and counseling on cessation of tobacco use Last Documented On 4 9:26AM ; [facility] Lose weight Last Documented On 4 9:50AM ; [facility] Intervention and counseling [...] all patient encounters Findings Encounter Date Overweight NEW PROBLEM/EST PT with Federico Cabello MD 12/19/2023 Last Documented On 4 3:28PM ; [facility] Overweight Post Op [...] 01/30/2023 Last Documented On 3 8:46AM ; [facility] Instructions Includes: Instructions for all patient encounters Instructions to patient Intervention and counseling on cessation of tobacco use Last Documented On 4 9:11AM ; [facility] Intervention and counseling on cessation of tobacco use Last Documented On 4 9:26AM ; [facility] Lose weight Last Documented On 4 9:50AM ; [facility] Intervention and counseling [...] weight Last Documented On 3 1:11PM ; [facility] Medical Equipment - Implanted Devices Includes: Current and historical Devices No Medical Equipment Recorded Medications Includes: Current and historical Medications Current Medications (continue as prescribed) Calcium Carb-Cholecalciferol 600-5 MG-MCG Oral Tablet 11/26/2023 Provider: Stephanie Espinoza APRN Diagnosis: Last Documented On 4 9:11AM By Isadora mC ; [facility] Albuterol Sulfate HFA 108 (9 0 Base) MCG/ACT Inhalation Aerosol Solution 11/26/2023 Provider: Stephanie gibbons APRN Diagnosis: Last Documented On 4 9:11AM By Isadora Cm ; [facility] Furosemide 40 MG Oral Tablet 11/26/2023 Provider: Diagnosis: Last Documented On 4 9:11AM By Isadora Cm ; [facility] Lisinopril-hydroCHLOROthiazi de 20-25 MG Oral Tablet 11/26/2023 Provider: ESTHER MIRANDA Diagnosis: Last Documented On 4 9:11AM By Isadora Cm ; [facility] Magnesium Gluconate 500 MG Oral Tablet 11/26/2023 Pr ovider: Stephanie Espinoza APRN Diagnosis: Last Documented On 4 9:11AM By Isadora Cm ; [facility] Vitamin D3 1.25 MG (91335 UT) Oral Capsule 11/26/2023 Provider: Stephanie Espinoza APRN Diagnosis: Last Documented On 4 9:11AM By Isadora Cm ; [facility] Potassium Chloride Isela ER 2 0 MEQ Oral Tablet Extended Release 11/26/2023 Provider: Stephanie Espinoza APRN Diagnosis: Last Documented On 4 9:11AM By Isadora Cm ; [facility] Montelukast Sodium 10 MG Oral Tablet 11/26/2023 Prov ider: Diagnosis: Last Documented On 4 9:11AM By Isadora Cm ; [facility] Bisoprolol Fumarate 10 MG Oral Tablet 11/26/2023 Pro vider: Diagnosis: Last Documented On 4 9:11AM By Isadora Cm ; [facility] Folinic-Plus 4-50-2 MG Oral Tablet 11/12/2023 Provid er: Stephanie Espinoza APRN Diagnosis: Last Documented On 4 9:11AM By Isadora Cm ; [facility] Gabapentin 800 MG Oral Tablet 11/12/2023 Provider: Stephanie Espinoza APRN Diagnosis: Last Documented On 4 9:11AM By Isadora Cm ; [facility] HYDROcodone-Acetaminophen 7.5-325 MG Oral Tablet 01/25 Provider: ESTHER MIRANDA Diagnosis: Last Documented On 3 1:01PM By Yesi Marion ; [facility] amLODIPine Besylate 10 MG Oral Tablet 01/25/2023 Pro vider: ESTHER MIRANDA Diagnosis: Last Documented On 3 1:01PM By Yesi Marion ; [facility] traMADol HCl 50 MG Oral Tablet 01/21/2023 Provider: ESTHER RUTH Diagnosis: Last Documented On 3 1:01PM By Yesi Marion ; [facility] Folic Acid 1 MG Oral Tablet 01/02/2023 Provider: Diagnosis: Last Documented On 3 1:01PM By Yesi Marion ; [facility] Cyclobenzaprine HCl 5 MG Oral Tablet 01/01/2023 Prov ider: ESTHER MIRANDA Diagnosis: Last Documented On 3 1:01PM By Yesi Marion ; [facility] Past Medications on file Magnesium Gluconate 500 MG Oral Tablet 11/12/2023 - 12/19/2023 Provider: Stephanie Espinoza APRN Diagnosis: Last Documented On 4 9:12AM By Isadora Cm ; [facility] Potassium Chloride Isela ER 2 0 MEQ Oral Tablet Extended Release 10/28/2023 - 12/19/2023 Provider: Stephanie Espinoza APRN Diagnosis: Last Documented On 4 9:12AM By Isadora Cm ; [facility] Lisinopril-hydroCHLOROthiazi de 20-25 MG Oral Tablet 10/24/2023 - 12/19/2023 Provider: ESTHER MIRANDA Diagnosis: Last Documented On 4 9:12AM By Isadora Cm ; [facility] HYDROcodone-Acetaminophen 5- 325 MG Oral Tablet 05/06/2023 - 05/21/2023 Provider: Federico Cabello MD Diagnosis: 1 po q 4h prn pain Last Documented On 3 4:19PM By Federico Cabello ; [facility] HYDROcodone-Acetaminophen 5- 325 MG Oral Tablet 04/18/2023 - 05/01/2023 Provider: Federico Cabello MD Diagnosis: Take 1 tablet every 8 hrs prn pain Last Documented On 3 3:26PM By Federico Cabello ; [facility] HYDROcodone-Acetaminophen 5- 325 MG Oral Tablet 04/10/2023 - 04/23/2023 Provider: Federico Cabello MD Diagnosis: Take 1 tablet every 8 hrs prn pain Last Documented On 3 12:16PM By Federico Cabello ; [facility] HYDROcodone-Acetaminophen 5- 325 MG Oral Tablet 02/28/2023 - 03/13/2023 Provider: Federico Cabello MD Diagnosis: Take 1 tablet every 8 hrs prn pain Last Documented On 3 3:41PM By Federico Cabello ; [facility] HYDROcodone-Acetaminophen 5- 325 MG Oral Tablet 02/19/2023 - 03/04/2023 Provider: Federico Cabello MD Diagnosis: Take 1 tablet every 8 hrs prn pain Last Documented On 3 2:11PM By Federico Cabello ; [facility] HYDROcodone-Acetaminophen 5- 325 MG Oral Tablet 02/06/2023 - 02/19/2023 Provider: Federico Cabello MD Diagnosis: Take 1 tablet every 8 hrs prn pain Last Documented On 3 2:54PM By Federico Cabello ; [facility] Albuterol Sulfate HFA 108 (9 0 Base) MCG/ACT Inhalation Aerosol Solution 01/24/2023 - 12/19/2023 Provider: ESTHER MIRANDA Diagnosis: Last Documented On 4 9:12AM By Isadora Cm ; [facility] Bisoprolol Fumarate 10 MG Or al Tablet 01/15/2023 - 12/19/2023 Provider: ESTHER MIRANDA Diagnosis: Last Documented On 4 9:12AM By Isadora Cm ; [facility] Montelukast Sodium 10 MG Oral Tablet 01/15/2023 - 12/2023 Provider: ESTHER MIRANDA Diagnosis: Last Documented On 4 9:12AM By Isadora Cm ; [facility] Gabapentin 600 MG Oral Tablet 01/13/2023 - 12/19/2023 Provider: ESTHER MIRANDA Diagnosis: Last Documented On 4 9:12AM By Isadora Cm ; [facility] Medications Administered Includes: Administered Medications in patient's chart No Administered Medications Recorded Vital Signs Includes: Vital Signs from 01/26/2023 through 01/27/2024 Vital Name 12/19/2023 09:25A 05/15/2023 08:49A 04/10/2023 09:02A 03/04/2023 11:01A 01/30/2023 01:01P Height (in) 62 62 62 62 62 Weight (lb) 120 136 136 136 138 Body Mass Index 21.9 24.9 24.9 24.9 25.2 Body Surface Area 1.5 1.6 1.6 1.6 1.6 Pain Level 10 Note: lc lc AM mg Last Documented: On 12/19/2023 9:25AM ; [facility] On 05/15/2023 8:49AM ; [facility] On 04/10/2023 9:02AM ; [facility] On 03/04/2023 11:01AM ; [facility] On 01/30/2023 1:11PM ; [facility] Results Includes: Results from 01/26/2023 through 01/27/2024 No Results Recorded For Specified Dates History of Present Illness History of Present Illness not supported for this document type No History of Present Illness Recorded Social History Description Last Updated Tobacco use 01/30/2023 Last Documented On 3 8:46AM ; [facility] Smoking Status Unknown Procedures and Surgical History Includes: Procedures from 01/26/2023 through 01/27/2024 Procedures Code Diagnosis Performing Provider Service Location Service Date X-RAY EXAM OF LOWER SPINE 4-5 VIEWS 58430 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 w crnt path fx, verteb, 7thD Federico Cabello MD [facility] 12/19/2023 Last Documented On 4 12:53PM ; [facility] percutaneous vertebral augmentation incl cavity creation 24149 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, vertebra(e), init Federico Cabello MD [facility] 05/06/2023 Last Documented On 3 9:19AM ; [facility] X-RAY EXAM OF THORACIC SPINE 2 VIEWS 93578 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, vertebra(e), init Ghulam Vila PA-C [facility] 04/10/2023 Last Documented On 3 6:31AM ; [facility] X-RAY EXAM OF LOWER SPINE 2-3 VIEWS LIMITED 50582 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, vertebra(e), init Ghulam Vila PA-C [facility] 04/10/2023 Last Documented On 3 6:31AM ; [facility] percutaneous vertebral augmentation incl cavity creation 81449 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, vertebra(e), init Federico Cabello MD [facility] 02/25/2023 Last Documented On 3 9:26AM ; [facility] Medical History Includes: Medical History in patient's chart No Medical History Recorded Family History Includes: Family History in patient's chart No Family History Recorded Review of Systems Review of Systems not supported for this document type No Review of Systems Recorded Mental Status Description No anxiety Functional Status No Functional Status Recorded Physical Exam Physical Exam not supported for this document type No Physical Exam Recorded Allergies Includes: Active, inactive, and resolved Allergies No Known Allergies Encounters Includes: Encounters from 01/26/2023 through 01/27/2024 Encounter Provider Location Date Check-In Time Check-Out Time Diagnosis NEW PROBLEM/EST PT Federico Cabello MD [facility] 12/19/19 24 9:01AM 9:43AM Overweight Post Op Ghulam Vila PA-C [facility] 05/15/20 8:46AM 8:59AM Overweight Kyphoplasty Federico Cabello MD [facility] 05/06/20 23 7:06AM 9:05AM [Patient Encounter] Federico Cabello MD 04/25/2004/10/2023 12:15PM 04/10/2023 11:59PM [Patient Encounter] Federico Cabello MD 04/18/2004/10/2023 3:13PM 04/10/2023 11:59PM NEW PROBLEM/EST PT Ghulam Vila PA-C [facility] 04/10/20 23 8:11AM 9:10AM Overweight Post Op Ghulam Vila PA-C [facility] 03/04/20 10:54AM 11:13AM Overweight [Patient Encounter] Federico Cabello MD 02/29/2002/25/2023 3:20PM 02/25/2023 11:59PM Kyphoplasty Federico Cabello MD [facility] 02/26/20 7:09AM 8:42AM [Patient Encounter] Federico Cabello MD 02/20/2001/30/2023 1:53PM 01/30/2023 11:59PM [Patient Encounter] Federico Cabello MD 02/14/2001/30/2023 12:05PM 01/30/2023 11:59PM Physician Specified Ghulam Vila PA-C [facility] 01/31/20 12:46PM 1:44PM Overweight Insurance Includes: Active Insurance Policies Plan Name Member ID Group # Subscriber Relationship Effect kelsey Dates 1 - [employer] [id number] Iqra Balbuena Self Clinical Notes Includes: Signed Clinical Notes starting from 06/28/2022 * Progress note Date Encounter Last Documented by 05/15/2023 Post Op Last documented on 05/15/2023; 9:01 AM, Ghulam Vila PA-C; [facility] Active Problems & Conditions - Lower Back [...] on 05/03/2023; 12:29 PM, Ghulam Vila PA-C; [facility] Active Problems & Conditions - Lower Back [...] on 03/04/2023; 11:15 AM, Ghulam Vila PA-C; [facility] Active Problems & Conditions - Lower Back [...] medications documented. Care Team - ESTHER MIRANDA * Progress note Date Encounter Last Documented by 01/30/2023 Physician Specified Last arabellaumeadam vidal on 01/31/2023; 8:46 AM, Ghulam Vila PA-C; [facility] Active Problems & Conditions - Lower Back [...] months no injury she has been taking [place] 7.5 to help with pain she takes [...]
--- OUTSIDE RECORDS SUMMARY | 2024-01-27 10:49 | XMS_ITS | Clinical Summary ---
Author Name Unknown Address [address] [place] [address] [place] [address] Phone Organization [facility] Address [address] [address] Phone Care Team Providers Care Career Coach Name Role Phone Rafi PRESCOTT, Maribel Unavailable Unavailable ESTHER MIRANDA Unavailable [phone] Federico Cabello MD Unavailable [phone] Reason for Visit and Chief Complaint [Patient Encounter] Problems Includes: Problems addressed during this encounter and other active Problems All Visits Onset Date Resolved Date Provider Condition S tatus Lower Back Pain 01/30/2023 Ghulam Lewis ctive Last Documented On 3 1:01PM ; [facility] Midback Pain 01/30/2023 Ghulam Vila PA-C Acti ve Last Documented On 3 1:01PM ; [facility], [facility] Plan of Treatment No Plan of [...] On 4 9:11AM By Isadora Cm ; [facility], [facility] Albuterol Sulfate HFA 108 (9 0 Base) MCG/ACT Inhalation Aerosol Solution 11/26/2023 Provider: Stephanie gibbons APRN Diagnosis: Last Documented On 4 9:11AM By Isadora Cm ; [facility] Furosemide 40 MG Oral Tablet 11/26/2023 Provider: Diagnosis: Last Documented On 4 9:11AM By Isadora Cm ; [facility] Lisinopril-hydroCHLOROthiazi de 20-25 MG Oral Tablet 11/26/2023 Provider: ESTHER MIRANDA Diagnosis: Last Documented On 4 9:11AM By Isadora Cm ; [facility] Magnesium Gluconate 500 MG Oral Tablet 11/26/2023 Pr ovider: Stephanie Espinoza APRN Diagnosis: Last Documented On 4 9:11AM By Isadora Cm ; [facility] Vitamin D3 1.25 MG (25400 UT) Oral Capsule 11/26/2023 Provider: Stephanie Espinoza APRN Diagnosis: Last Documented On 4 9:11AM By Isadora Cm ; [facility] Potassium Chloride Isela ER 2 0 MEQ Oral Tablet Extended Release 11/26/2023 Provider: Stephanie Espinoza APRN Diagnosis: Last Documented On 4 9:11AM By Isadora Cm ; [facility] Montelukast Sodium 10 MG Oral Tablet 11/26/2023 Prov ider: Diagnosis: Last Documented On 4 9:11AM By Isadora Cm ; [facility] Bisoprolol Fumarate 10 MG Oral Tablet 11/26/2023 Pro vider: Diagnosis: Last Documented On 4 9:11AM By Isadora Cm ; [facility] Folinic-Plus 4-50-2 MG Oral Tablet 11/12/2023 Provid er: Stephanie Espinoza APRN Diagnosis: Last Documented On 4 9:11AM By Isadora Cm ; [facility] Gabapentin 800 MG Oral Tablet 11/12/2023 Provider: Stephanie Espinoza APRN Diagnosis: Last Documented On 4 9:11AM By Isadora Cm ; [facility] HYDROcodone-Acetaminophen 7.5-325 MG Oral Tablet 01/25 Provider: ESTHER MIRANDA Diagnosis: Last Documented On 3 1:01PM By Yesi Marion ; [facility] amLODIPine Besylate 10 MG Oral [...] By Yesi Marion ; [facility] Medications Administered Includes: [...] Relationship Effect kelsey Dates 1 - [employer] [id number] Iqra Nuñez Clinical Notes Includes: Clinical Notes from this encounter No Clinical Notes Recorded
--- OUTSIDE RECORDS SUMMARY | 2024-01-27 10:49 | XMS_ITS | Clinical Summary ---
Author Name Unknown Address [address] [place] [address] [place] [address] Phone Organization [facility] Address [address] [place] [address] Phone Care Team Providers Care Pharmaceutical Analyst Name Role Phone Rafi PRESCOTT, Maribel Unavailable Unavailable ESTHER MIRANDA Unavailable [phone] Federico Cabello MD Unavailable [phone] Reason for Visit and Chief Complaint [Patient Encounter] Problems Includes: Problems addressed during this encounter and other active Problems All Visits Onset Date Resolved Date Provider Condition S tatus Lower Back Pain 01/30/2023 Ghulam Lewis ctive Last Documented On 3 1:01PM ; [facility], [facility] Midback Pain 01/30/2023 Ghulam Vila PA-C Acti ve Last Documented On 3 1:01PM ; [facility], [facility] Plan of Treatment No Plan [...] tablet every 8 hrs prn pain Pharmacy: [facility] [address], [id number] - Last Documented On 3 3:26PM By Federico Cabello ; [facility], [facility] Current Medications (continue as prescribed) Calcium Carb-Cholecalciferol 600-5 MG-MCG Oral Tablet 11/26/2023 Provider: Stephanie Espinoza APRN Diagnosis: Last Documented On 4 9:11AM By Isadora Cm ; [facility] Albuterol Sulfate HFA 108 (9 0 Base) MCG/ACT Inhalation Aerosol Solution 11/26/2023 Provider: Stephanie gibbons APRN Diagnosis: Last Documented On 4 9:11AM By Isadora Cm ; [facility] Furosemide 40 MG Oral Tablet 11/26/2023 Provider: Diagnosis: Last Documented On 4 9:11AM By Isadora Cm ; [facility] Lisinopril-hydroCHLOROthiazi de 20-25 MG Oral Tablet 11/26/2023 Provider: ESTHER MIRANDA Diagnosis: Last Documented On 4 9:11AM By Isadora Cm ; [facility] Magnesium Gluconate 500 MG Oral Tablet 11/26/2023 Pr ovider: Stephanie Espinoza APRN Diagnosis: Last Documented On 4 9:11AM By Isadora Cm ; [facility], [facility] Vitamin D3 1.25 MG (84797 UT) Oral Capsule 11/26/2023 Provider: Stephanie Espinoza APRN Diagnosis: Last Documented On 4 9:11AM By Isadora Cm ; [facility] Potassium Chloride Isela ER 2 0 MEQ Oral Tablet Extended Release 11/26/2023 Provider: Stephanie Espinoza APRN Diagnosis: Last Documented On 4 9:11AM By Isadora Cm ; [facility] Montelukast Sodium 10 MG Oral Tablet 11/26/2023 Prov ider: Diagnosis: Last Documented On 4 9:11AM By Isadora Cm ; [facility] Bisoprolol Fumarate 10 MG Oral Tablet 11/26/2023 Pro vider: Diagnosis: Last Documented On 4 9:11AM By Isadora Cm ; [facility] Folinic-Plus 4-50-2 MG Oral Tablet 11/12/2023 Provid er: Stephanie Espinoza APRN Diagnosis: Last Documented On 4 9:11AM By Isadora Cm ; [facility] Gabapentin 800 MG Oral Tablet 11/12/2023 Provider: Stephanie Espinoza APRN Diagnosis: Last Documented On 4 9:11AM By Isadora Cm ; [facility] HYDROcodone-Acetaminophen 7.5-325 MG Oral Tablet [...] # Subscriber Relationship Effect kelsey Dates - [facility] [id number] Iqra Balbuena Self Clinical Notes Includes: Clinical Notes from this encounter No Clinical Notes Recorded
[2024-01-27 11:00] VITALS: BP 127/81; PULSE 76; RESP 18; TEMP 36.6; O2SAT 90
[2024-01-27] MEDS: DENOSUMAB 60 MG/ML SYRINGE SQ (11:00)
== END 2024-01-27 11:15 | disposition home or self-care (01) ==
LOC: INF 10:46
PROVIDERS: PCP Nurse Practitioner; Visit Provider Nurse Practitioner
DX: M81.0 Age-related osteoporosis without current pathological fracture (principal)
CPT/HCPCS: 96372; J0897

== ENCOUNTER 2024-02-05 08:46 | Outpatient (POV) | payer MEDICARE, SELFPAY ==
--- NOTE | 2024-02-05 08:53 | A.OFFVIS_ITS ---
HPI Data of Consult Patient: new to practice Consult date: 02/05/24 Requesting Physician: Felicia Cabello APRN Primary Care Provider: Lula Espinoza Consult Narrative Reason for consult: Low back pain History of present illness: Ms. Balbuena is a 68 year old female who presents today as a new patient. She is a referral from [facility]. Today she rates her pain a 10 out of 10. Patient states her pain is all throughout her low back and denies any radiating symptoms into her legs. Patient states this pain has been going on for at least 3 years and describes it as a constant burning sensation that limits her ability to perform activities of daily living such as cooking and cleaning. Patient states that nothing seems to give any relief and everything overall aggravates her pain. Patient has tried [id number] Tylenol and ibuprofen along with heat and ice and topicals with minimal relief. Patient does have osteoporosis and has a history of compression fractures with kyphoplasty. Patient does take Prolia injections. Patient denies any other surgeries or injection history. Patient does try and do at home stretching exercise for longer than 12 weeks with no additional relief. Patient did present today with high blood pressure however she states that this is normal when she has not yet taken her blood pressure medication. Patient states that her family doctor is aware. Patient is interested in any help we may be able to provide. Patient was a prior patient of ours back several years ago.Patient is currently managed with [place] 7.53 times a day and gabapentin 800 mg 3 times a day from her PCP. Her Azael has been reviewed and is appropriate. CC: Felicia Cabello APRN [facility] Disclaimer: The information contained in this section may have been updated after the patient was seen, as this information can be updated by other users. Medical History (Updated 02/05/24 @ 09:29 by Felicia Cabello APRN) Hypokalemia Elevated troponin COPD (chronic obstructive pulmonary disease) Nocturnal hypoxemia Pulmonary emphysema Incidental pulmonary nodule, greater than or equal to 8mm Smoking greater than 30 pack years Dyspnea on exertion Tobacco abuse disorder Tobacco abuse counseling COPD (chronic obstructive pulmonary disease) Cervical cancer Surgical History History of dilation and curettage History of back surgery Family History Other Diabetes Social History (Updated 02/05/24 @ 09:19 by Kristen Covarrubias RN) Smoking Status: Unknown if ever smoked second hand exposure: Yes alcohol intake: current alcohol intake frequency: 0-2 drinks per day current occupational status: unemployed Travel in the last 8 weeks: None household members: spouse housing: house current occupational exposures/hazards: No Review of Systems Review of Systems Review of systems:: pertinent systems reviewed and negative unless documented below Review of systems (narrative): Review of Systems: General: No recent weight changes, no fever, no sleep disturbances Respiratory: No cough, no shortness of air, no recurring pulmonary infections Cardiovascular/peripheral vascular: No chest pain, no palpitations, no edema, no shortness of breath Gastrointestinal: No new onset incontinence, normal bowel movements reported Genitourinary: No new onset incontinence Musculoskeletal: Low back pain Psychiatric: [Normal mood/affect] Neurological: [Denies weakness in extremities], [denies balance issues] Meds Home Medications and Allergies Home Medications ?Medication ?Instructions ?Recorded ?Confirmed ?Type furosemide 20 mg tablet 20 mg PO DAILY Fluid 07/16/17 01/27/24 History gabapentin 600 mg tablet 600 mg PO TID Pain 07/16/17 01/27/24 History montelukast 10 mg tablet 10 mg PO PM Allergy symptoms 07/16/17 01/27/24 History ipratropium 0.5 mg-albuterol 3 mg 3 ml inhalation QIDP PRN Shortness 07/03/21 01/27/24 History (2.5 mg base)/3 mL nebulization Of Breath soln fluticasone 250 mcg-salmeterol 50 1 inh inhalation BID COPD 04/19/22 01/27/24 History mcg/dose blistr powdr for inhalation (Advair Diskus) tiotropium bromide 2.5 2 inh inhalation DAILY COPD 05/03/22 01/27/24 History mcg/actuation mist for inhalation (Spiriva Respimat) lisinopril 20 1 tab PO BID Hypertension 10/26/22 01/27/24 History mg-hydrochlorothiazide 25 mg tablet folic acid 1 mg tablet 1 mg PO DAILY #30 tabs 10/27/22 01/27/24 Rx thiamine mononitrate (vit B1) 100 100 mg PO DAILY 30 days #30 tabs 10/27/22 01/27/24 Rx mg tablet bisoprolol fumarate 10 mg tablet 10 mg PO DAILY Heart rate 30 days 04/30/23 01/27/24 Rx #30 tabs denosumab 60 mg/mL subcutaneous 60 mg SQ DIRECTED 01/27/24 01/27/24 History syringe (Prolia) New Prescriptions to Start Prescriptions: Allergies Allergy/AdvReac Type Severity Reaction Status Date / Time No Known Allergies Allergy Verified 05/02/22 11:14 Objective Narrative: Physical Exam: General: Alert and oriented x3, no acute distress, pleasant and cooperative Lungs: Respirations even and unlabored, symmetrical chest expansion Eyes: PERRL Musculoskeletal: Flexion and extension of lumbar [spine] somewhat guarded secondary to pain, [antalgic gait noted] positive Kemps test Neurological: Speech clear, no gross sensory deficit Additional findings Additional findings: FINDINGS: Multiplanar MR imaging of the lumbar spine was performed without contrast. On the sagittal T2-weighted images, there is abnormal decreased signal throughout the lumbar discs. Compression deformities of the T11, T12, and L2 vertebral bodies are once again noted, with evidence of kyphoplasties. The degree of compression of each of these vertebral bodies is similar to the previous scan of January 2023. There is mild retropulsion of the L2 superior endplate. The vertebral alignment is otherwise normal. T12-L1: There is no significant canal stenosis or neural foraminal narrowing. L1-2: A small annular bulge is present with mild bilateral neural foraminal narrowing. L2-3: A small annular bulge is present with mild bilateral neural foraminal narrowing. L3-4: A small annular bulge is present with mild to moderate facet osteoarthropathy and mild to moderate right neural foraminal narrowing. L4-5: A moderate annular bulge is noted, with mild to moderate bilateral neural foraminal narrowing. L5-S1: Mild bilateral neural foraminal narrowing is present. IMPRESSION: Multilevel lumbar degenerative change as described, most severe at the L3-4 and L4-5 levels. Multiple compression deformities of the lower thoracic and upper lumbar spine with prior kyphoplasties. The degree of compression is stable when compared to the prior films of January 2023. Reviewed, Interpreted and Dictated by Eliel Moreno MD Transcribed by Lissa Renee Authenticated and [facility] Assessment and Plan *Assessment and plan (1) Degenerative disc disease, lumbar: Status: Acute Category: Medical Code(s): M51.36 - Other intervertebral disc degeneration, lumbar region (2) Compression fracture: Status: Acute Category: Medical (3) Chronic pain syndrome: Status: Acute Category: Medical Code(s): G89.4 - Chronic pain syndrome (4) Lumbar facet arthropathy: Status: Acute Category: Medical Code(s): M47.816 - Spondylosis without myelopathy or radiculopathy, lumbar region Plan Patient is experiencing worsening pain throughout her low back with limited range of motion and a positive Kemps test. I did discuss with patient that she may benefit from a lumbar medial branch block bilaterally. Risk and benefits were discussed with patient and she would like to proceed forward with this plan of care. Patient has tried and failed conservative therapy including continued at home stretching exercise for longer than 12 weeks. Patient is not on any blood thinners. Patient was counseled to follow-up with her PCP regarding her blood pressure. Patient will be submitted for a lumbar medial branch block bilaterally L3-L4 and L4-L5 under fluoroscopy. Patient was also discussed in future due to the curvature of her spine and chronic compression fractures that she may be a beneficial candidate of a pain pump trial. We will follow-up with this at a later date. Patient has been instructed to contact the clinic with any concerns before the next appointment. Dr. Mas has reviewed this note and agrees with this plan of care. This note was dictated using voice recognition software and make contain errors or omissions.
[2024-02-05 09:18] VITALS: BP 210/106; PULSE 82; RESP 18; O2SAT 95; BMI 21.9
== END 2024-02-05 23:59 | disposition home or self-care (01) ==
PROVIDERS: PCP Nurse Practitioner; Visit Provider Nurse Practitioner Family
DX: M51.36 Other intervertebral disc degeneration, lumbar region (principal); G89.4 Chronic pain syndrome; M47.816 Spondylosis without myelopathy or radiculopathy, lumbar region
CPT/HCPCS: 99202; G0463

== ENCOUNTER 2024-02-12 15:07 | Emergency (ER) | payer MEDICARE, SELFPAY ==
--- OUTSIDE RECORDS SUMMARY | 2024-02-12 15:33 | XMS_ITS ---
Care Plan - [facility], [facility] Created on: February 12, 2024 SreeIqra : 1955 Sex: Female Author Organization [facility] Address [address] [place] [address] Phone Care Team Providers Care Manager Management Name Role Phone Rafi PRESCOTT, Maribel Unavailable Unavailable ESTHER MIRANDA Unavailable [phone] Irineo ESPINOZA, Federico Lewis Unavailable [phone]
--- OUTSIDE RECORDS SUMMARY | 2024-02-12 15:33 | XMS_ITS ---
Author Organization [facility] No information ASSESSMENT No information CHIEF COMPLAINT No information Immunizations Date Vaccine Dateadministered Timeadministered Vaccinecode Dose Duedate Cptcode Cvxcode Administeredby 05/30 00:00 :00 FLUZONE HD QUAD 05/30/2023 09:55:00 09:55:00 [id number] .7 01/12/20 24 00:00:00 [id number] CLAIRE MILLAN OBJECTIVE DATA No information PHYSICAL EXAMINATION No information TREATMENT PLAN No information PROBLEMS No information RESULTS No information REVIEW OF SYSTEMS No information SUBJECTIVE DATA No information VITAL SIGNS No information MEDICATIONS No information
--- OUTSIDE RECORDS SUMMARY | 2024-02-12 15:33 | XMS_ITS ---
Author Organization [facility] , [facility] Address [address] [place] [address] Phone Care Team Providers Care Transport Conductor Name Role Phone Rafi PRESCOTT, Maribel Unavailable Unavailable ESTHER MIRANDA Unavailable [phone] Irineo ESPINOZA, Federico Lewis Unavailable [phone] Problems Includes: Active, inactive, and resolved Problems All Visits Onset Date Resolved Date Provider Condition S tatus Lower Back Pain 01/30/2023 Ghulam Vila PA-C A ctive Last Documented On 3 1:01PM ; [facility], [facility] Midback Pain 01/30/2023 Ghulam Vila PA-C Acti ve Last Documented On 3 1:01PM ; [facility], [facility] Plan of Treatment Findings Encounter Date Patient screened for future fall risk: documentation of any fall with injury in past year NEW PROBLEM/EST PT with Federico Cabello MD 12/19/2023 Last Documented On 4 3:28PM ; [facility] Referrals To Diagnosis Consult with Personal Counselor Overw eight Last Documented On 3 1:53PM ; [facility] Consult with Personal Counselor Overw eight Note: STAT to see pulmonolog y Dr. Herrmann if [place] to see if patient can have surgery. She is on O2 and has a T11 compression fracture plan would be for a T11 kypho if cleared. Have clearance sent to Isi Ramesh Last Documented On 3 4:46PM ; [facility] Consult for Pain Management Toba account services specialist abuse counseling Note: Wait for note to [...] 12/19/2023 Last Documented On 4 3:28PM ; [facility] Overweight Post Op with Ghulam [...] weight Last Documented On 3 1:11PM ; [facility] Medical Equipment - Implanted Devices Includes: Current and historical Devices No Medical Equipment Recorded Medications Includes: Current and historical Medications Current Medications (continue as prescribed) Calcium Carb-Cholecalciferol 600-5 MG-MCG Oral Tablet 11/26/2023 Provider: Stephanie Espinoza APRN Diagnosis: Last Documented On 4 9:11AM By Isadora Cm ; [facility], [facility] Albuterol Sulfate HFA 108 (9 0 Base) MCG/ACT Inhalation Aerosol Solution 11/26/2023 Provider: Stephanie gibbons APRN Diagnosis: Last Documented On 4 9:11AM By Isadora Cm ; [facility], [facility] Furosemide 40 MG Oral Tablet 11/26/2023 Provider: Diagnosis: Last Documented On 4 9:11AM By Isadora Cm ; [facility], [facility] Lisinopril-hydroCHLOROthiazi de 20-25 MG Oral Tablet 11/26/2023 Provider: ESTHER MIRANDA Diagnosis: Last Documented On 4 9:11AM By Isadora Cm ; [facility] Magnesium Gluconate 500 MG Oral Tablet 11/26/2023 Pr ovider: Stephanie Espinoza APRN Diagnosis: Last Documented On 4 9:11AM By Isadora Cm ; [facility] Vitamin D3 1.25 MG (82976 UT) Oral Capsule 11/26/2023 Provider: Stephanie Espinoza APRN Diagnosis: Last Documented On 4 9:11AM By Isadora Cm ; [facility] Potassium Chloride Isela ER 2 0 MEQ Oral Tablet Extended Release 11/26/2023 Provider: Stephanie Espinoza APRN Diagnosis: Last Documented On 4 9:11AM By Isadora Cm ; [facility] Montelukast Sodium 10 MG Oral Tablet 11/26/2023 Prov ider: Diagnosis: Last Documented On 4 9:11AM By Isadora Cm ; [facility] Bisoprolol Fumarate 10 MG Oral Tablet 11/26/2023 Pro vider: Diagnosis: Last Documented On 4 9:11AM By Isadora Cm ; [facility] Folinic-Plus 4-50-2 MG Oral Tablet 11/12/2023 Provid er: Stephanie Espinoza APRN Diagnosis: Last Documented On 4 9:11AM By Isadora Cm ; [facility] Gabapentin 800 MG Oral Tablet 11/12/2023 Provider: Stephanie Espinoza APRN Diagnosis: Last Documented On 4 9:11AM By Isadora Cm ; [facility] HYDROcodone-Acetaminophen 7.5-325 MG Oral Tablet 01/25 Provider: ESTHER MIRANDA Diagnosis: Last Documented On 3 1:01PM By Yesi Marion ; [facility] amLODIPine Besylate 10 MG [...] [facility] Past Medications on file Magnesium Gluconate 500 MG Oral Tablet 11/12/2023 - 12/19/2023 Provider: Stephanie Espinoza APRN Diagnosis: Last Documented On 4 9:12AM By Isadora Cm ; [facility] Potassium Chloride Isela ER 2 0 MEQ Oral Tablet Extended Release 10/28/2023 - 12/19/2023 Provider: Stephanie Espinoza APRN Diagnosis: Last Documented On 4 9:12AM By Isadora Cm ; [facility] Lisinopril-hydroCHLOROthiazi de 20-25 MG Oral Tablet 10/24/2023 - 12/19/2023 Provider: ESTHER MIRANDA Diagnosis: Last Documented On 4 9:12AM By Isadora Cm ; [facility] HYDROcodone-Acetaminophen 5- 325 MG [...] On 3 12:16PM By Federico Cabello ; [facility] HYDROcodone-Acetaminophen 5- 325 MG Oral Tablet 02/28/2023 - 03/13/2023 Provider: Federico Cabello MD Diagnosis: Take 1 tablet every 8 hrs prn pain Last Documented On 3 3:41PM By Federico Cabello ; [facility] HYDROcodone-Acetaminophen 5- 325 MG Oral Tablet 02/19/2023 - 03/04/2023 Provider: Federico Cabello MD Diagnosis: Take 1 tablet every 8 hrs prn pain Last Documented On 3 2:11PM By Federico Cabello ; [facility] HYDROcodone-Acetaminophen 5- 325 MG Oral Tablet 02/06/2023 - 02/19/2023 Provider: Federico Cabello MD Diagnosis: Take 1 tablet every 8 hrs prn pain Last Documented On 3 2:54PM By Federico Cabello ; [facility] Albuterol Sulfate HFA 108 (9 0 Base) MCG/ACT Inhalation Aerosol Solution 01/24/2023 - 12/19/2023 Provider: ESTHER MIRANDA Diagnosis: Last Documented On 4 9:12AM By Isadora Cm ; [facility] Bisoprolol Fumarate 10 MG Or al Tablet 01/15/2023 - 12/19/2023 Provider: ESTHER MIRANDA Diagnosis: Last Documented On 4 9:12AM By Isadora Cm ; [facility] Montelukast Sodium 10 MG Oral Tablet 01/15/2023 - 12/2023 Provider: ESTHER MIRANDA Diagnosis: Last Documented On 4 9:12AM By Isadora Cm ; [facility] Gabapentin 600 MG Oral Tablet 01/13/2023 - 12/19/2023 Provider: ESTHER MIRANDA Diagnosis: Last Documented On 4 9:12AM By Isadora Cm ; [facility] Medications Administered Includes: Administered Medications in patient's chart No Administered Medications Recorded Vital Signs Includes: Vital Signs from 02/11/2023 through 02/12/2024 Vital Name 12/19/2023 09:25A 05/15/2023 08:49A 04/10/2023 09:02A 03/04/2023 11:01A Height (in) 62 62 62 62 Weight (lb) 120 136 136 136 Body Mass Index 21.9 24.9 24.9 24.9 Body Surface Area 1.5 1.6 1.6 1.6 Pain Level 10 Note: [facility] AM Last Documented: On 12/19/2023 9:25AM ; [facility] On 05/15/2023 8:49AM ; [facility] On 04/10/2023 9:02AM ; [facility] On 03/04/2023 11:01AM ; [facility] Results Includes: Results from 02/11/2023 through 02/12/2024 No Results Recorded For Specified Dates History of Present Illness History of Present Illness not supported for this document type No History of Present Illness Recorded Social History Description Last Updated Tobacco use 01/30/2023 Last Documented On 3 8:46AM ; [facility] Smoking Status Unknown Procedures and Surgical History Includes: Procedures from 02/11/2023 through 02/12/2024 Procedures Code Diagnosis Performing Provider Service Location Service Date X-RAY EXAM OF LOWER SPINE 4-5 VIEWS 44606 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 w crnt path fx, verteb, 7thD Federico Cabello MD [facility] 12/19/2023 Last Documented On 4 12:53PM ; [facility] percutaneous vertebral augmentation incl cavity creation 51847 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, vertebra(e), init Federico Cabelol MD [facility] 05/06/2023 Last Documented On 3 9:19AM ; [facility] X-RAY EXAM OF THORACIC SPINE 2 VIEWS 27121 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, vertebra(e), init Ghulam Vila PA-C [facility] 04/10/2023 Last Documented On 3 6:31AM ; [facility] X-RAY EXAM OF LOWER SPINE 2-3 VIEWS LIMITED 86884 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, vertebra(e), init Ghulam Vila PA-C [facility] 04/10/2023 Last Documented On 3 6:31AM ; [facility] percutaneous vertebral augmentation incl cavity creation 69909 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, vertebra(e), init Federico Cabello MD [facility] 02/25/2023 Last Documented On 3 9:26AM ; [facility] Medical History Includes: Medical History in [...] No Known Allergies Encounters Includes: Encounters from 02/11/2023 through 02/12/2024 Encounter Provider Location Date Check-In Time Check-Out Time Diagnosis NEW PROBLEM/EST PT Federico Cabello MD [facility] 12/19/19 24 9:01AM 9:43AM Overweight Post Op Ghulam Vila PA-C [facility] 05/15/20 8:46AM 8:59AM Overweight Kyphoplasty Federico Cabello MD [facility] 05/06/20 7:06AM 9:05AM [Patient Encounter] Federico Cabello MD 04/25/20 23 04/10/2023 12:15PM 04/10/2023 11:59PM [Patient Encounter] Federico Cabello MD 04/18/20 23 04/10/2023 3:13PM 04/10/2023 11:59PM NEW PROBLEM/EST PT Ghulam Vila PA-C [facility] 04/10/20 8:11AM 9:10AM Overweight Post Op Ghulam Vila PA-C [facility] 03/04/20 10:54AM 11:13AM Overweight [Patient Encounter] Federico Cabello MD 02/29/20 23 02/25/2023 3:20PM 02/25/2023 11:59PM Kyphoplasty Federico Cabello MD [facility] 02/26/20 7:09AM 8:42AM [Patient Encounter] Federico Cabello MD 02/20/2001/30/2023 1:53PM 01/30/2023 11:59PM [Patient Encounter] Federico Cabello MD 02/14/2001/30/2023 12:05PM 01/30/2023 11:59PM Insurance Includes: Active Insurance Policies Plan Name Member ID Group # Subscriber Relationship Effect kelsey Dates 1 - [employer] [id number] Iqra Balbuena Self Clinical Notes Includes: Signed Clinical Notes starting from 06/28/2022 * Progress note Date Encounter Last Documented by 05/15/2023 Post Op Last documented on 05/15/2023; 9:01 AM, Ghulam Vila PA-C; [facility] Active Problems & Conditions - Lower [...] on 05/03/2023; 12:29 PM, Ghulam Vila PA-C; [facility] Active Problems & Conditions - Lower [...] on 03/04/2023; 11:15 AM, Ghulam Vila PA-C; [facility] Active Problems & Conditions - Lower [...]
--- OUTSIDE RECORDS SUMMARY | 2024-02-12 15:33 | XMS_ITS | Clinical Summary ---
Author Organization [facility] , [facility] Address [address] [place] [address] Phone Care Team Providers Care Culinary Instructor Name Role Phone Rafi PRESCOTT, Maribel Unavailable Unavailable ESTHER MIRANDA Unavailable [phone] Federico Cabello MD Unavailable [phone] Reason for Visit and Chief Complaint The Chief Complaint is: Mid-Low back pain Problems Includes: Problems addressed during this encounter and other active Problems Current Visit Onset Date Resolved Date Provider Conditio n Status Lower Back Pain 01/30/2023 Ghulam Vila PA-C A ctive Last Documented On 3 1:01PM ; [facility] Past Visits Onset Date Resolved Date Provider Condition Status Midback Pain 01/30/2023 Ghulam Vila PA-C Acti ve Last Documented On 3 1:01PM ; [facility], [facility] Plan of Treatment - Patient screened for future fall risk: documentation of any fall with injury in past year - Last Documented On 12/19/2023 3:28PM ; [facility], [facility] Fall Risk Assessment: This patient has been [...] - Last Documented On 12/19/2023 3:28PM ; [facility], [facility] Referrals To Diagnosis Consult for Pain Management Toba strategic account manager abuse counseling Note: Wait for note to send // cc*Have order ready on paper Last Documented On 4 2:10PM ; [facility], [facility] Instructions to patient Intervention and counseling on cessation of tobacco use Last Documented On 4 9:11AM ; [facility], [facility] Intervention and counseling on cessation of tobacco use Last Documented On 4 9:26AM ; [facility], [facility] Lose weight Last Documented On 4 9:50AM ; [facility], [facility] Assessments Includes: Assessments from this encounter Findings - Overweight - Last Documented On 12/19/2023 3:28PM ; [facility], [facility] Instructions Includes: Instructions from this encounter Instructions to patient Intervention and counseling on cessation of tobacco use Last Documented On 4 9:11AM ; [facility], [facility] Intervention and counseling on cessation of tobacco use Last Documented On 4 9:26AM ; [facility], [facility] Lose weight Last Documented On 4 9:50AM ; [facility], [facility] Medical Equipment - Implanted Devices Includes: Current Devices No Medical Equipment Recorded Medications Includes: Medications discussed during this encounter and other current Medications Discontinued / Stopped on this date Stephanie Espinoza APRN on 11/12/2023 Magnesium Gluconate 500 MG Oral Tablet Pr ovider: Stephanie Espinoza APRN Diagnosis: Last Documented On 4 9:12AM By Isadora Cm ; [facility], [facility] Potassium Chloride Isela ER 2 0 MEQ Oral Tablet Extended Release Provider: Stephanie Espinoza APRN Diagnosis: Last Documented On 4 9:12AM By Isadora Cm ; [facility], [facility] Lisinopril-hydroCHLOROthiazi de 20-25 MG Oral Tablet Provider: ESTHER MIRANDA Diagnosis: Last Documented On 4 9:12AM By Isadora Cm ; [facility], [facility] Albuterol Sulfate HFA 108 (9 0 Base) MCG/ACT Inhalation Aerosol Solution Provider: ESTHER PEARCE ER Diagnosis: Last Documented On 4 9:12AM By Isadora Cm ; [facility], [facility] Bisoprolol Fumarate 10 MG Oral Tablet Pro vider: ESTHER MIRANDA Diagnosis: Last Documented On 4 9:12AM By Isadora Cm ; [facility], [facility] Montelukast Sodium 10 MG Oral Tablet Prov ider: ESTHER MIRANDA Diagnosis: Last Documented On 4 9:12AM By Isadora Cm ; [facility], [facility] Gabapentin 600 MG Oral Tablet Provider: ESTHER MIRANDA Diagnosis: Last Documented On 4 9:12AM By Isadora Cm ; [facility], [facility] Current Medications (continue as prescribed) Calcium Carb-Cholecalciferol 600-5 MG-MCG Oral Tablet 11/26/2023 Provider: Stephanie Espinoza APRN Diagnosis: Last Documented On 4 9:11AM By Isadora Cm ; [facility], [facility] Albuterol Sulfate HFA 108 (9 0 Base) MCG/ACT Inhalation Aerosol Solution 11/26/2023 Provider: Stephanie gibbons APRN Diagnosis: Last Documented On 4 9:11AM By Isadora Cm ; [facility], [facility] Furosemide 40 MG Oral Tablet 11/26/2023 Provider: Diagnosis: Last Documented On 4 9:11AM By Isadora Cm ; [facility], [facility] Lisinopril-hydroCHLOROthiazi de 20-25 MG Oral Tablet 11/26/2023 Provider: ESTHER MIRANDA Diagnosis: Last Documented On 4 9:11AM By Isadora Cm ; [facility], [facility] Magnesium Gluconate 500 MG Oral Tablet 11/26/2023 Pr ovider: Stephanie Espinoza APRN Diagnosis: Last Documented On 4 9:11AM By Isadora Cm ; [facility], [facility] Vitamin D3 1.25 MG (35429 UT) Oral Capsule 11/26/2023 Provider: Stephanie Espinoza APRN Diagnosis: Last Documented On 4 9:11AM By Isadora Cm ; [facility], [facility] Potassium Chloride Isela ER 2 0 MEQ Oral Tablet Extended Release 11/26/2023 Provider: Stephanie Espinoza APRN Diagnosis: Last Documented On 4 9:11AM By Isadora Cm ; [facility], [facility] Montelukast Sodium 10 MG Oral Tablet 11/26/2023 Prov ider: Diagnosis: Last Documented On 4 9:11AM By Isadora Cm ; [facility] Bisoprolol Fumarate 10 MG Oral Tablet 11/26/2023 Pro vider: Diagnosis: Last Documented On 4 9:11AM By Isadora Cm ; [facility] Folinic-Plus 4-50-2 MG Oral Tablet 11/12/2023 Provid er: Stephanie Espinoza APRN Diagnosis: Last Documented On 4 9:11AM By Isadora Cm ; [facility] Gabapentin 800 MG Oral Tablet 11/12/2023 Provider: Stephanie Espinoza APRN Diagnosis: Last Documented On 4 9:11AM By Isadora Cm ; [facility] HYDROcodone-Acetaminophen 7.5-325 MG Oral Tablet 01/25 Provider: ESTHER MIRANDA Diagnosis: Last Documented On 3 1:01PM By Yesi Marion ; [facility] amLODIPine Besylate 10 MG Oral Tablet 01/25/2023 Pro vider: ESTHER MIRANDA Diagnosis: Last Documented On 3 1:01PM By Yesi Marion ; [facility] traMADol HCl 50 MG Oral Tablet 01/21/2023 Provider: ESTHER MIRANDA Diagnosis: Last Documented On 3 1:01PM By Yesi Marion ; [facility] Folic Acid 1 MG Oral Tablet 01/02/2023 Provider: Diagnosis: Last Documented On 3 1:01PM By Yesi Marion ; [facility] Cyclobenzaprine HCl 5 MG Oral [...] On 3 2:11PM By Federico Cabello ; [facility] HYDROcodone-Acetaminophen 5- 325 MG Oral Tablet 02/06/2023 - 02/19/2023 Provider: Federico Cabello MD Diagnosis: Take 1 tablet every 8 hrs prn pain Last Documented On 3 2:54PM By Federico Cabello ; [facility] Medications Administered Includes: Administered Medications from [...] 12/19/2023 Last Documented On 4 9:52AM ; [facility], [facility] Caffeine use 12/19/2023 Last Documented On 4 9:52AM ; [facility] No recent change in diet 12/19/2023 Last Documented On 4 9:52AM ; [facility] Not exercising regularly 12/19/2023 Last Documented On 4 9:52AM ; [facility] Not using drugs 12/19/2023 Last Documented On 4 9:52AM ; [facility], [facility] Yes, current smoker. 12/19/2023 Last Documented On 4 9:52AM ; [facility], [facility] Tobacco use 01/30/2023 Last Documented On 4 9:11AM ; [facility], [facility] Smoking Status Unknown Procedures and Surgical History Includes: Procedures from this encounter Procedures Code Diagnosis Performing Provider Service Location Service Date X-RAY EXAM OF LOWER SPINE 4-5 VIEWS 52113 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 w crnt path fx, verteb, 7thD Federico Cabello MD [facility] 12/19/2023 Last Documented On 4 12:53PM ; [facility], [facility] intervention and counseling on cessation of toba strategic account manager use 4000F Last Documented On 4 9:11AM ; [facility], [facility] patient screened for future fall risk: documentation of any fall with injury in past year 1100F Last Documented On 4 9:11AM ; [facility], [facility] review of medications documented 1160F Last Documented On 4 9:11AM ; [facility], [facility] an X-ray was performed 20504 Last Documented On 4 9:50AM ; [facility] an MRI was performed [facility] [address] Last Documented On 4 9:27AM ; [facility], [facility] Surgical History Last Updated History of back surgery T11 Kypho 02/25/ 3 ~T12 Kypho 10/23/23 12/19/2023 Last Documented On 4 9:55AM ; [facility] Medical History Includes: Medical History addressed during this encounter Description Last Updated History of Heartburn / Acid Reflux 12/18 Last Documented On 4 9:51AM ; [facility] History of History of Emphysema 12/19/19 24 Last Documented On 4 9:51AM ; [facility] Family History Includes: Family History addressed during this encounter Description Last Updated No significant family history 12/19/2023 Last Documented On 4 9:55AM ; [facility] Review of Systems Includes: Review of [...] Diagnosis NEW PROBLEM/EST PT Federico Cabello MD [facility] 12/19/19 24 9:01AM 9:43AM Overweight Insurance Includes: Active Insurance Policies Plan Name Member ID Group # Subscriber Relationship Effect kelsey Dates 1 - [employer] [id number] Iqra Balbuena Self Clinical Notes Includes: Clinical Notes from this encounter No Clinical Notes Recorded
--- OUTSIDE RECORDS SUMMARY | 2024-02-12 15:34 | XMS_ITS | Clinical Summary ---
Author Organization [facility] , [facility] Address [address] [place] [address] Phone Care Team Providers Care Shovel Loader Operator Name Role Phone Rafi PRESCOTT, Maribel Unavailable Unavailable ESTHER MIRANDA Unavailable [phone] Federico Cabello MD Unavailable [phone] Reason for Visit and Chief Complaint [Patient Encounter] Problems Includes: Problems addressed during this encounter and other active Problems All Visits Onset Date Resolved Date Provider Condition S tatus Lower Back Pain 01/30/2023 Ghualm eLwis ctive Last Documented On 3 1:01PM ; [facility] Midback Pain 01/30/2023 Ghulam Vila PA-C Acti ve Last Documented On 3 1:01PM ; [facility], [facility] Plan of Treatment No Plan [...] On 4 9:11AM By Isadora Cm ; [facility], [facility] Albuterol Sulfate HFA 108 (9 0 Base) MCG/ACT Inhalation Aerosol Solution 11/26/2023 Provider: Stephanie gibbons APRN Diagnosis: Last Documented On 4 9:11AM By Isadora Cm ; [facility], [facility] Furosemide 40 MG Oral Tablet 11/26/2023 Provider: Diagnosis: Last Documented On 4 9:11AM By Isadora Cm ; [facility] Lisinopril-hydroCHLOROthiazi de 20-25 MG Oral Tablet 11/26/2023 Provider: ESTHER MIRANDA Diagnosis: Last Documented On 4 9:11AM By Isadora Cm ; [facility] Magnesium Gluconate 500 MG Oral Tablet 11/26/2023 Pr ovider: Stephanie Espinoza APRN Diagnosis: Last Documented On 4 9:11AM By Isadora Cm ; [facility] Vitamin D3 1.25 MG (98329 UT) Oral Capsule 11/26/2023 Provider: Stephanie Espinoza APRN Diagnosis: Last Documented On 4 9:11AM By Isadora Cm ; [facility] Potassium Chloride Isela ER 2 0 MEQ Oral Tablet Extended Release 11/26/2023 Provider: Stephanie Espinoza APRN Diagnosis: Last Documented On 4 9:11AM By Isadora Cm ; [facility] Montelukast Sodium 10 MG Oral Tablet 11/26/2023 Prov ider: Diagnosis: Last Documented On 4 9:11AM By Isadora Cm ; [facility] Bisoprolol Fumarate 10 MG Oral Tablet 11/26/2023 Pro vider: Diagnosis: Last Documented On 4 9:11AM By Isadora Cm ; [facility] Folinic-Plus 4-50-2 MG Oral Tablet 11/12/2023 Provid er: Stephanie Espinoza APRN Diagnosis: Last Documented On 4 9:11AM By Isadora Cm ; [facility] Gabapentin 800 MG Oral Tablet 11/12/2023 Provider: Stephanie Espinoza APRN Diagnosis: Last Documented On 4 9:11AM By Isadora Cm ; [facility] HYDROcodone-Acetaminophen 7.5-325 MG Oral [...] Relationship Effect kelsey Dates 1 - [employer] [id number] Iqra Nuñez Clinical Notes Includes: Clinical Notes from this encounter No Clinical Notes Recorded
--- OUTSIDE RECORDS SUMMARY | 2024-02-12 15:34 | XMS_ITS | Clinical Summary ---
Author Organization [facility] , [facility] Address [address] [place] [address] Phone Care Team Providers Care Communication Equipment Repairer Name Role Phone Rafi PRESCOTT, Maribel Unavailable Unavailable ESTHER MIRANDA Unavailable [phone] Federico Cabello MD Unavailable [phone] Reason for Visit and Chief Complaint The Chief Complaint is: Mid-Low back pain Problems Includes: Problems addressed during this encounter and other active Problems All Visits Onset Date Resolved Date Provider Condition S tatus Lower Back Pain 01/30/2023 Ghulam Vila PA-C A ctive Last Documented On 3 1:01PM ; [facility] Midback Pain 01/30/2023 Ghulam Vila PA-C Acti ve Last Documented On 3 1:01PM ; [facility] Plan of Treatment Fall Risk Assessment: [...] - Last Documented On 05/15/2023 9:01AM ; [facility] Patient was seen by myself Ghulam [...] - Last Documented On 05/15/2023 9:01AM ; [facility], [facility] Instructions to patient Intervention and counseling on cessation of tobacco use Last Documented On 3 8:48AM ; [facility], [facility] Lose weight Last Documented On 3 8:48AM ; [facility], [facility] Assessments Includes: Assessments from this encounter Findings - Overweight - Last Documented On 05/15/2023 9:01AM ; [facility], [facility] T12 kyphoplasty 05/06/2023 - Last Documented On 05/15/2023 9:01AM ; [facility], [facility] Instructions Includes: Instructions from this encounter Instructions to patient Intervention and counseling on cessation of tobacco use Last Documented On 3 8:48AM ; [facility], [facility] Lose weight Last Documented On 3 8:48AM ; [facility], [facility] Medical Equipment - Implanted Devices Includes: Current Devices No Medical Equipment Recorded Medications Includes: Medications discussed during this encounter and other current Medications Current Medications (continue as prescribed) Calcium Carb-Cholecalciferol 600-5 MG-MCG Oral Tablet 11/26/2023 Provider: Stephanie Espinoza APRN Diagnosis: Last Documented On 4 9:11AM By Isadora Cm ; [facility], [facility] Albuterol Sulfate HFA 108 (9 0 Base) MCG/ACT Inhalation Aerosol Solution 11/26/2023 Provider: Stephanie gibbons APRN Diagnosis: Last Documented On 4 9:11AM By Isadora Cm ; [facility], [facility] Furosemide 40 MG Oral Tablet 11/26/2023 Provider: Diagnosis: Last Documented On 4 9:11AM By Isadora Cm ; [facility], [facility] Lisinopril-hydroCHLOROthiazi de 20-25 MG Oral Tablet 11/26/2023 Provider: ESTHER MIRANDA Diagnosis: Last Documented On 4 9:11AM By Isadora Cm ; [facility], [facility] Magnesium Gluconate 500 MG Oral Tablet 11/26/2023 Pr ovider: Stephanie Espinoza APRN Diagnosis: Last Documented On 4 9:11AM By Isadora Cm ; [facility], [facility] Vitamin D3 1.25 MG (05275 UT) Oral Capsule 11/26/2023 Provider: Stephanie Espinoza APRN Diagnosis: Last Documented On 4 9:11AM By Isadora Cm ; [facility] Potassium Chloride Isela ER 2 0 MEQ Oral Tablet Extended Release 11/26/2023 Provider: Stephanie Espinoza APRN Diagnosis: Last Documented On 4 9:11AM By Isadora Cm ; [facility] Montelukast Sodium 10 [...] lc Last Documented: On 05/15/2023 8:49AM ; [facility], [facility] Results Includes: Results discussed during this encounter [...] 01/30/2023 Last Documented On 3 8:48AM ; [facility], [facility] Smoking Status Unknown Procedures and Surgical History Includes: Procedures from this encounter Procedures Code Diagnosis Performing Provider Service L ocation Service Date intervention and counseling on cessation of tobacco use 4000F Last Documented On 3 8:48AM ; [facility] patient screened for future fall risk: documentation of any fall with injury in past year 1100F Last Documented On 3 8:48AM ; [facility] review of medications documented 1160F Last Documented On 3 8:48AM ; [facility], [facility] Medical History Includes: Medical History addressed during [...] Time Diagnosis Post Op Ghulam Vila PA-C [facility] 3 8:46AM 8:59AM Overweight Insurance Includes: Active Insurance Policies Plan Name Member ID Group # Subscriber Relationship Effect kelsey Dates 1 - [employer] [id number] Iqra Balbuena Self Clinical Notes Includes: Clinical Notes from this encounter * Progress note Date Encounter Last Documented by 05/15/2023 Post Op Last documented on 05/15/2023; 9:01 AM, Ghulam Vila PA-C; [facility] Active Problems & Conditions - [...]
--- OUTSIDE RECORDS SUMMARY | 2024-02-12 15:34 | XMS_ITS | Clinical Summary ---
Author Organization [facility] , [facility] Address [address] [place] [address] Phone Care Team Providers Care Sales Representative Adding Machines Name Role Phone Rafi PRESCOTT, Maribel Unavailable Unavailable ESTHER MIRANDA Unavailable [phone] Irineo ESPINOZA, Federico Lewis Unavailable [phone] Reason for Visit and Chief Complaint [Patient Encounter] Problems Includes: Problems addressed during this encounter and other active Problems All Visits Onset Date Resolved Date Provider Condition S tatus Lower Back Pain 01/30/2023 Ghulam Lewis ctive Last Documented On 3 1:01PM ; [facility], [facility] Midback Pain 01/30/2023 Ghulam Vila PA-C Acti ve Last Documented On 3 1:01PM ; [facility], [facility] Plan of Treatment No Plan [...] tablet every 8 hrs prn pain Pharmacy: [facility] - [address] [place] [address] [address], [id number] - Last Documented On 3 3:26PM By Federico Cabello ; [facility], [facility] Current Medications (continue as prescribed) Calcium Carb-Cholecalciferol 600-5 MG-MCG Oral Tablet 11/26/2023 Provider: Stephanie Espinoza APRN Diagnosis: Last Documented On 4 9:11AM By Isadora Cm ; [facility] Albuterol Sulfate HFA 108 (9 0 Base) MCG/ACT Inhalation Aerosol Solution 11/26/2023 Provider: Stephanie gibbons APRN Diagnosis: Last Documented On 4 9:11AM By Isadora Cm ; [facility] Furosemide 40 MG Oral Tablet 11/26/2023 Provider: Diagnosis: Last Documented On 4 9:11AM By Isadora Cm ; [facility] Lisinopril-hydroCHLOROthiazi de 20-25 MG Oral Tablet 11/26/2023 Provider: ESTHER MIRANDA Diagnosis: Last Documented On 4 9:11AM By Isadora Cm ; [facility] Magnesium Gluconate 500 MG Oral Tablet 11/26/2023 Pr ovider: Stephanie Espinoza APRN Diagnosis: Last Documented On 4 9:11AM By Isadora Cm ; [facility], [facility] Vitamin D3 1.25 MG (42531 UT) Oral Capsule 11/26/2023 Provider: Stephanie Espinoza APRN Diagnosis: Last Documented On 4 9:11AM By Isadora Cm ; [facility], [facility] Potassium Chloride Isela ER 2 0 MEQ Oral Tablet Extended Release 11/26/2023 Provider: Stephanie Espinoza APRN Diagnosis: Last Documented On 4 9:11AM By Isadora Cm ; [facility] Montelukast Sodium 10 MG Oral Tablet 11/26/2023 Prov ider: Diagnosis: Last Documented On 4 9:11AM By Isadora Cm ; [facility] Bisoprolol Fumarate 10 MG Oral Tablet 11/26/2023 Pro vider: Diagnosis: Last Documented On 4 9:11AM By Isadora Cm ; [facility] Folinic-Plus 4-50-2 MG Oral [...] Relationship Effect kelsey Dates 1 - [employer] [id number] Iqra Balbuena Self Clinical Notes Includes: Clinical Notes from this encounter No Clinical Notes Recorded
--- OUTSIDE RECORDS SUMMARY | 2024-02-12 15:34 | XMS_ITS | Clinical Summary ---
Author Organization [facility] , [facility] Address [address] [place] [address] Phone Care Team Providers Care Drone Operator Name Role Phone Rafi PRESCOTT, Maribel Unavailable Unavailable ESTHER MIRANDA Unavailable [phone] Irineo ESPINOZA, Federico Lewis Unavailable [phone] Reason for Visit and Chief Complaint Kyphoplasty Problems Includes: Problems addressed during this encounter and other active Problems All Visits Onset Date Resolved Date Provider Condition S tatus Lower Back Pain 01/30/2023 Ghulam Vila PA-C A ctive Last Documented On 3 1:01PM ; [facility], [facility] Midback Pain 01/30/2023 Ghulam Vila PA-C Acti ve Last Documented On 3 1:01PM ; [facility] Plan of Treatment No Plan of [...] prn pain Pharmacy: [facility] - [address] [place] [address] [address], [id number] - Last Documented On 3 4:19PM By Federico Cabello ; [facility], [facility] Current Medications (continue as prescribed) Calcium Carb-Cholecalciferol 600-5 MG-MCG Oral Tablet 11/26/2023 Provider: Stephanie Espinoza APRN Diagnosis: Last Documented On 4 9:11AM By Isadora Cm ; [facility] Albuterol Sulfate HFA 108 (9 0 Base) MCG/ACT Inhalation Aerosol Solution 11/26/2023 Provider: Stephanie gibbons APRN Diagnosis: Last Documented On 4 9:11AM By Isadora Cm ; [facility] Furosemide 40 MG Oral Tablet 11/26/2023 Provider: Diagnosis: Last Documented On 4 9:11AM By Isadora Cm ; [facility] Lisinopril-hydroCHLOROthiazi de 20-25 MG Oral Tablet 11/26/2023 Provider: ESTHER MIRANDA Diagnosis: Last Documented On 4 9:11AM By Isadora Cm ; [facility] Magnesium Gluconate 500 MG Oral Tablet 11/26/2023 Pr ovider: Stephanie Espinoza APRN Diagnosis: Last Documented On 4 9:11AM By Isadora Cm ; [facility] Vitamin D3 1.25 MG (69323 UT) Oral Capsule 11/26/2023 Provider: Stephanie Espinoza APRN Diagnosis: Last Documented On 4 9:11AM By Isadora Cm ; [facility] Potassium Chloride Isela ER 2 0 MEQ Oral Tablet Extended Release 11/26/2023 Provider: Stephanie Espinoza APRN Diagnosis: Last Documented On 4 9:11AM By Isadora Cm ; [facility] Montelukast Sodium 10 MG Oral Tablet 11/26/2023 Prov ider: Diagnosis: Last Documented On 4 9:11AM By Isadora Cm ; [facility] Bisoprolol Fumarate 10 MG Oral Tablet 11/26/2023 Pro vider: Diagnosis: Last Documented On 4 9:11AM By Isadora Cm ; [facility] Folinic-Plus 4-50-2 MG Oral Tablet 11/12/2023 Provid er: Stephanie Espinoza APRN Diagnosis: Last Documented On 4 9:11AM By Isadora Cm ; [facility], [facility] Gabapentin 800 MG Oral Tablet 11/12/2023 Provider: Stephanie Espinoza APRN Diagnosis: Last Documented On 4 9:11AM By Isadora Cm ; [facility], [facility] HYDROcodone-Acetaminophen 7.5-325 MG Oral Tablet 01/25 Provider: ESTHER MIRNADA Diagnosis: Last Documented On 3 1:01PM By Yesi Marion ; [facility], [facility] amLODIPine Besylate 10 MG Oral Tablet 01/25/2023 Pro vider: ESTHERMUNA MIRANDA Diagnosis: Last Documented On 3 1:01PM By Yesi Marion ; [facility], [facility] traMADol HCl 50 MG Oral Tablet 01/21/2023 Provider: ESTHER MIRANDA Diagnosis: Last Documented On 3 1:01PM By Yesi Marion ; [facility], [facility] Folic Acid 1 MG Oral Tablet 01/02/2023 Provider: Diagnosis: Last Documented On 3 1:01PM By Yesi Marion ; [facility], [facility] Cyclobenzaprine HCl 5 MG Oral Tablet 01/01/2023 Prov ider: ESTHER MIRANDA Diagnosis: Last Documented On 3 1:01PM By Yesi Marion ; 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, vertebra(e), init Federico Cabello MD [facility] 05/06/2023 Last Documented On 3 9:19AM ; [facility] Medical History Includes: Medical [...] Check-In Time Check-Out Time Diagnosis Kyphoplasty [facility] 05/06/20 7:06AM 9:05AM Insurance Includes: Active Insurance Policies Plan Name Member ID Group # Subscriber Relationship Effect kelsey Dates - [employer] [id number] Iqra Balbuena Self Clinical Notes Includes: Clinical Notes from this encounter No Clinical Notes Recorded
[2024-02-12 15:39] VITALS: BP 205/97; PULSE 89; RESP 16; TEMP 37.1; O2SAT 95; BMI 22.6
--- NOTE | 2024-02-12 15:44 | ED_ITS ---
Discharge Plan Disposition Patient Disposition: Home, Self-Care Condition: Good Prescriptions Prescriptions: New ondansetron 4 mg tablet,disintegrating 4 mg PO Q8H PRN (Reason: nausea and vomiting) 4 Days Qty: 12 0RF No Action ipratropium-albuterol 0.5 mg-3 mg(2.5 mg base)/3 mL solution for nebulization 3 ml INHALATION QIDP PRN (Reason: Shortness Of Breath) bisoprolol fumarate 10 mg tablet 10 mg PO DAILY 30 Days Qty: 30 2RF gabapentin 600 MG tablet 600 mg PO TID montelukast 10 MG tablet 10 mg PO PM furosemide 20 MG tablet 20 mg PO DAILY lisinopril-hydrochlorothiazide 20-25 mg tablet 1 tab PO BID folic acid 1 mg Tablet 1 mg PO DAILY Qty: 30 3RF thiamine mononitrate (vit B1) 100 mg Tablet 100 mg PO DAILY 30 Days Qty: 30 3RF fluticasone propion-salmeterol [Advair Diskus] 250-50 mcg/dose blister with device 1 inh INHALATION BID Spiriva Respimat 2.5 mcg/actuation mist 2 inh inhalation DAILY Prolia 60 mg/mL Syringe 60 mg SQ DIRECTED Rx Instructions: every 6 months Referrals Follow up/Referrals: Lula Espinoza APRN [Primary Care Provider] - See instructions Activity Restrictions/Add. Instructions Additional Instructions/Restrictions: You were evaluated in the emergency department today. Please pickle solution maker your prescription for Zofran to take as needed for nausea and vomiting. Follow-up very closely with your primary care provider over the next few days. Make sure that you take all of your medications at home, including your blood pressure medications. Return to the emergency department for new or worsening symptoms. Clinical Impressions Clinical Impression: Abdominal pain, Nausea, HTN (hypertension) Instructions Patient Instructions: DI for Chronic Pain -- Adult, DI for Nausea -- Adult Print Language Print Language: Bahamian Discharge ED Provider: Felicia Owen General Adult HPI General Chief complaint: Weakness Stated complaint: back pain, nausea, weak Time Seen by Provider: 02/12/24 15:38 History of Present Illness HPI narrative: This patient is a 68-year-old female with a history of chronic back pain, hypertension, COPD, and tobacco dependence with multiple previous ED evaluations for chronic back pain presenting with concern for nausea and general weakness. She states that she is felt sick all day and has not been able to sleep today. She is requesting something to sleep at this time. She states that her back pain is unchanged from prior back pain and she is awaiting an outpatient injection. No recent falls or traumatic injuries. No new numbness, tingling, saddle anesthesia, or other concerns. She does state that she has some abdominal pain and the periumbilical region and it feels like she needs to be sick, but she has not been able to throw up. No changes in bowel movements, urinary symptoms, or other concerns noted. Related Data Home Medications ?Medication ?Instructions ?Recorded ?Confirmed furosemide 20 mg tablet 20 mg PO DAILY Fluid 07/16/17 02/05/24 gabapentin 600 mg tablet 600 mg PO TID Pain 07/16/17 02/05/24 montelukast 10 mg tablet 10 mg PO PM Allergy symptoms 07/16/17 02/05/24 ipratropium 0.5 mg-albuterol 3 mg 3 ml inhalation QIDP PRN Shortness 07/03/21 02/05/24 (2.5 mg base)/3 mL nebulization Of Breath soln fluticasone 250 mcg-salmeterol 50 1 inh inhalation BID COPD 04/19/22 02/05/24 mcg/dose blistr powdr for inhalation (Advair Diskus) tiotropium bromide 2.5 2 inh inhalation DAILY COPD 05/03/22 02/05/24 mcg/actuation mist for inhalation (Spiriva Respimat) lisinopril 20 1 tab PO BID Hypertension 10/26/22 02/05/24 mg-hydrochlorothiazide 25 mg tablet denosumab 60 mg/mL subcutaneous 60 mg SQ DIRECTED 01/27/24 02/05/24 syringe (Prolia) Previous Rx's ?Medication ?Instructions ?Recorded folic acid 1 mg tablet 1 mg PO DAILY #30 tabs 10/27/22 thiamine mononitrate (vit B1) 100 100 mg PO DAILY 30 days #30 tabs 10/27/22 mg tablet bisoprolol fumarate 10 mg tablet 10 mg PO DAILY Heart rate 30 days 04/30/23 #30 tabs ondansetron 4 mg disintegrating 4 mg PO Q8H PRN nausea and 02/12/24 tablet vomiting 4 days #12 tabs Allergies Allergy/AdvReac Type Severity Reaction Status Date / Time No Known Allergies Allergy Verified 02/12/24 15:46 [facility] Disclaimer: The information contained in this section may have been updated after the patient was seen, as this information can be updated by other users. Medical History Hypokalemia Elevated troponin COPD (chronic obstructive pulmonary disease) Nocturnal hypoxemia Pulmonary emphysema Incidental pulmonary nodule, greater than or equal to 8mm Smoking greater than 30 pack years Dyspnea on exertion Tobacco abuse disorder Tobacco abuse counseling COPD (chronic obstructive pulmonary disease) Cervical cancer Surgical History History of dilation and curettage History of back surgery Family History Other Diabetes Social History Smoking Status: Current every day smoker tobacco type: cigarettes packs per day: 2 second hand exposure: Yes alcohol intake: current alcohol intake frequency: 0-2 drinks per day current occupational status: unemployed Travel in the last 8 weeks: None household members: spouse housing: house current occupational exposures/hazards: No ROS Obtained: Yes All systems reviewed & no additional complaints except as documented Physical Exam General General appearance: alert and in no apparent distress Head Head exam: atraumatic and normocephalic Eye Eye exam: Present normal appearance, PERRL and EOMI ENT ENT exam: Present normal exam, normal oropharynx, mucous membranes moist and normal external ear exam Neck Neck exam: Present normal inspection, full ROM and trachea midline; Absent tenderness Chest Chest inspection: Present normal inspection and symmetric chest wall rise; Absent tenderness Respiratory Respiratory exam: Present normal lung sounds bilaterally; Absent respiratory distress, wheezes, stridor or accessory muscle use Cardiovascular Cardiovascular exam: Present regular rate and normal rhythm Abdominal Exam Abdominal exam: Present soft; Absent distention, tenderness or guarding Extremities Exam Extremities exam: Present normal inspection, full ROM and normal capillary refill; Absent tenderness or edema Back Exam Back exam: Present normal inspection and full ROM; Absent tenderness Neurological Exam Neurological exam: Present alert, oriented X3, CN II-XII intact and normal gait; Absent motor sensory deficit Psychiatric Psychiatric exam: Present normal affect and normal mood Skin Skin exam: Present warm and dry Medical Decision Making Medical Records Medical records reviewed: Yes I reviewed the patient's medical records. Azael Inquiry Pt receiving controlled substance: No Vital Signs: 02/12/24 15:39 Temperature 98.7 F Temperature Source Oral Pulse Rate [Left] 89 Respiratory Rate 16 Blood Pressure [Right Arm] 205/97 H Blood Pressure Mean [Right Arm] 133 Blood Pressure Source [Right Arm] Automatic Cuff Blood Pressure Position [Right Arm] Sitting 02 Sat by Pulse Oximetry 95 Oxygen Delivery Method Room Air Lab Data Lab results reviewed: Yes I reviewed the patient's lab results. Lab Results 02/12/24 15:40: WBC 7.1, RBC 4.71, Hgb 16.1, Hct 47.3 H, MCV 100.4 H, MCH 34.3 H , MCHC 34.1, RDW 13.5, Plt Count 202, MPV 6.8 L, Neut % (Auto) 74.5, Lymph % (Auto) 18.9, [place] % (Auto) 4.2, Eos % (Auto) 1.4, Baso % (Auto) 1.0, Neut # (Auto) 5.3, Lymph # (Auto) 1.3, [place] # (Auto) 0.3, Eos # (Auto) 0.1, Baso # (Auto) 0.1, Sodium 132 L, Potassium 3.2 L, Chloride 94 L, Carbon Dioxide 33 H, Anion Gap 8.2, BUN 11, Creatinine 0.70, Estimated Creat Clear 46, Estimated GFR 83, Est GFR ( Amer) 101, Glucose 124 H, Calcium 10.2, Total Bilirubin 0.9, AST 29, ALT 17, Alkaline Phosphatase 57, Total Protein 7.4, Albumin 4.5, Globulin 2.9, Albumin/Globulin Ratio 1.6, Lipase 46 02/12/24 16:31: Urine Color Yellow, Urine Appearance Clear, Urine pH 7.0, Ur Specific Dixon 1.015, Urine Protein 1+, Urine Glucose (UA) Negative, Urine Ketones Negative, Urine Blood Negative, Urine Nitrate Negative, Urine Bilirubin Negative, Urine Urobilinogen 0.2, Ur Leukocyte Esterase Negative 02/12/24 15:40 02/12/24 15:40 Orders (Tests/Meds): ED MEDICATIONS Generic Name Dose Route Start Last Admin Trade Name Freq PRN Reason Stop Dose Admin Sodium Chloride 8 ml 02/12/24 15:43 Sodium Chloride 0.9% 10ml Vial IV 03/13/24 15:42 NEEDED PRN dilute pepcid Discontinued Medications Generic Name Dose Route Start Last Admin Trade Name Anatoly PRN Reason Stop Dose Admin Acetaminophen 1,000 mg 02/12/24 16:00 02/12/24 16:12 Acetaminophen 500mg Tab PO 02/12/24 16:01 1,000 mg ONCE ONE Administration Famotidine 20 mg 02/12/24 15:43 02/12/24 15:51 Famotidine 20mg/2ml Vial IV 02/12/24 15:44 20 mg ONCE ONE Administration Lactated Ringer's 1,000 mls @ 999 mls/hr 02/12/24 15:43 02/12/24 15:51 Lactated Ringer's 1000 Ml Bag IV 02/12/24 16:43 999 mls/hr .Q1H1M ONE Administration Ondansetron HCl 4 mg 02/12/24 15:43 02/12/24 15:52 Ondansetron 4mg/2ml Vial IM 02/12/24 15:44 Not Given ONCE ONE Ondansetron HCl 4 mg 02/12/24 15:50 02/12/24 15:51 Ondansetron 4mg/2ml Vial IV 02/12/24 15:51 4 mg ONCE ONE Administration Potassium Chloride 40 meq 02/12/24 15:59 02/12/24 16:12 Potassium Chloride 20meq Tab PO 02/12/24 16:00 40 meq ONCE ONE Administration ORDERS Category Date Time Status Complete Blood Count Auto Diff Stat Lab 02/12/24 15:40 Completed Comprehensive Metabolic Panel Stat Lab 02/12/24 15:40 Completed Lipase Stat Lab 02/12/24 15:40 Completed Rapid PCR Covid and Flu A/B Stat Lab 02/12/24 16:00 Received UA [Urinalysis and Microscopic] Stat Lab 02/12/24 16:31 Results ECG Data Tracing #1: I reviewed this ECG and interpreted as documented below: Normal sinus rhythm with a ventricular rate of [address] changes concerning for ischemia. Left axis deviation. Normal intervals. No changes from prior EKG ECG initial impression date: 02/12/24 ECG initial impression time: 16:04 Medical Decision Narrative: In summary, this patient is a 68-year-old female presenting to the Emergency Department for evaluation of nausea, general weakness, and mild periumbilical abdominal pain. She also has chronic back pain which is unchanged. Differential diagnoses considered include but are not limited to gastritis, pancreatitis, cholecystitis, colitis, gastroenteritis, cystitis, pyelonephritis. Ruling out the most morbid conditions drove assessment. It should be noted patient's history includes chronic back pain, COPD, tobacco dependence, and hypertension which are not at goal therapy - her BP is uncontrolled here today. This complicates all aspects of care by increasing patient's risk for morbidity. I reviewed patient's past medical records and noted previous evaluations for back pain in the past. On exam, the patient is resting comfortably no acute distress. She is neurologically intact and able to ambulate. No recent falls or traumatic injuries to suggest an acute injury to her back, and her symptoms of chronic back pain are unchanged. The only symptoms that are new are nausea and general weakness. She has a nonfocal abdominal exam with no localizable tenderness. Abdomen is soft. Workup included CBC, CMP, lipase, urinalysis, EKG, viral swab. Patient was given a bolus of IV fluids as well as IV Zofran and Pepcid for symptomatic improvement. Her peripheral vascular exam, including LE is reassuring, and she has no pulsatile abdominal mass or significant abdominal pain that would point me toward aortic pathology as a cause. Labs were obtained that demonstrated chronic hyponatremia and hypokalemia, but patient states that she supposed be on sodium and potassium pills at home but she has not been taking them. She also notes that she has not taken her blood pressure medications, which explains why her blood pressure is still out of control today. She does have plenty of medications at home and states that she will take them as soon as she gets home. Labs are otherwise reassuring and on reassessment after fluids, Zofran, and Tylenol, she is feeling a lot better and is tolerating oral intake without difficulty. EKG obtained is reassuring. Patient is ambulatory in the ED without issue. Given that she is feeling much better and workup and exam are reassuring, I feel that she is appropriate for discharge home. She is given prescription for Zofran as well as instructions for close follow-up with her primary care provider and instructions to continue taking her medications at home. Strict return precautions were given and she was discharged after all questions were answered. Critical Care Critical Care Time Critical Care Time: No
[2024-02-12 15:50] LABS: Basophils # 0.1 K/mm3 (0-0.2); Eosinophils # 0.1 K/mm3 (0.0-0.4); Eosinophils % 1.4 % (0.1-12.0); Hematocrit 47.3 % (37.0-47.0); Hemoglobin 16.1 g/dL (12.2-16.2); Lymphocytes # 1.3 K/mm3 (0.7-4.5); Lymphocytes % 18.9 % (10-50); Mean Corpuscular HGB Conc 34.1 g/dL (31.8-35.4); Mean Corpuscular Hemoglobin 34.3 pg (27.0-31.2); Mean Corpuscular Volume 100.4 fl (81-99); Mean Platelet Volume 6.8 fl (7.4-10.4); Monocytes # 0.3 K/mm3 (0.1-1.0); Monocytes % 4.2 % (1.7-9.3); Neutrophils # 5.3 K/mm3 (1.8-7.8); Neutrophils % 74.5 % (37.0-80.0); Platelet Count 202 K/mm3 (142-424); Red Blood Count 4.71 M/mm3 (4.20-5.40); Red Cell Distribution Width 13.5 % (11.5-17.5); White Blood Count 7.1 K/mm3 (4.8-10.8)
[2024-02-12] MEDS: FAMOTIDINE 20MG/2ML VIAL 20 MG IV (15:51)
[2024-02-12] MEDS: ONDANSETRON 4MG/2ML VIAL 4 MG IV (15:51)
[2024-02-12] MEDS: LACTATED RINGERS 1000ML 1,000 ML 999 ML IV (15:51)
[2024-02-12 15:54] LABS: Albumin Level 4.5 g/dl (3.5-5.0); Chloride 94 mmol/L (98-107); Potassium 3.2 mmoL/L (3.5-5.1); Sodium 132 mmol/L (136-145)
[2024-02-12 15:57] LABS: Alanine Aminotransferase 17 U/L (12-78); Albumin/Globulin Ratio 1.6 (1.1-1.8); Alkaline Phosphatase 57 U/L (38-126); Anion Gap 8.2 mEq/L (5-15); Aspartate Amino Transferase 29 U/L (14-36); Bilirubin,Total 0.9 mg/dl (0.2-1.3); Blood Urea Nitrogen 11 mg/dl (7-17); Calcium 10.2 mg/dl (8.4-10.2); Carbon Dioxide 33 mmol/L (22.0-30.0); Creatinine Clearance Estimated 46 mL/min (50-200); Estimated Glomerular Filt Rate 83 ml/min (>60); GFR (African American) 101 ML/MIN (>60); Globulin 2.9 g/dL (1.3-3.2); Glucose 124 mg/dl (74-100); Lipase 46 U/L (23-300); Total Protein,Serum 7.4 g/dl (6.3-8.2)
--- NOTE | 2024-02-12 15:58 | ECG_ITS ---
APPROVED REPORT Exam: Resting ECG HR:91 bpm ECG Measurements Heart Rate 91 AXES AR 162 P 69 QRSd 87 QRS -81 QT 384 T 36 QTc 433 Conclusion SINUS RHYTHM LEFT AXIS DEVIATION [QRS AXIS < -30] ABNORMAL ECG Electronically signed by : ADRIAN HENDRIX, 02/13/2024 00:49:41
[2024-02-12 16:04] LABS: Microscopic, Urine URINE MICROSCOPIC (MICROSCOPIC)
[2024-02-12 16:09] VITALS: BP 202/104
[2024-02-12] MEDS: ACETAMINOPHEN 500MG TAB 1000 MG PO (16:12)
[2024-02-12] MEDS: POTASSIUM CHLORIDE 20MEQ TAB 40 MEQ PO (16:12)
[2024-02-12 16:37] LABS: Coronavirus 19, PCR Not Detected (NotDetected); Influenza A, PCR Not Detected (NotDetected); Influenza B, PCR Not Detected (NotDetected)
[2024-02-12 16:43] LABS: Appearance,Urine CLEAR (Clear); Bilirubin,Urine Negative (Negative); Blood, Urine Negative (Negative); Color,Urine YELLOW (Yellow); Glucose,Urine (UA) Negative (Negative); Ketones,Urine Negative (Negative); Leukocyte Esterase,Urine Negative (Negative); Nitrate,Urine Negative (Negative); Protein,Urine 1+ (Negative); Specific Gravity, Urine 1.015 (1.005-1.030); Urobilinogen,Urine 0.2 EU/dl (0.2)
[2024-02-12 17:00] VITALS: BP 200/97; PULSE 100; O2SAT 92
[2024-02-12 17:15] VITALS: BP 209/98; PULSE 107; RESP 16; TEMP 36.7; O2SAT 91
[2024-02-12 17:31] LABS: Bacteria,Urine Trace /lpf; RBC,Urine Occasional #/hpf (0-3)
== END 2024-02-12 17:30 | disposition home or self-care (01) ==
PROVIDERS: Emergency Provider Emergency Medicine; PCP Nurse Practitioner
DX: R10.9 Unspecified abdominal pain (principal); E87.1 Hypo-osmolality and hyponatremia; E87.6 Hypokalemia; R11.0 Nausea; I10 Essential (primary) hypertension; F17.210 Nicotine dependence, cigarettes, uncomplicated; J44.9 Chronic obstructive pulmonary disease, unspecified
CPT/HCPCS: 80053; 81001; 83690; 85025; 87636; 93005; 96361; 96372; 96374; 96375; 99284; J2405; J7120; S0028

== ENCOUNTER 2024-02-25 10:01 | Day surgery (SDC) | payer MEDICARE, SELFPAY ==
--- OUTSIDE RECORDS SUMMARY | 2024-02-25 10:04 | XMS_ITS | Clinical Summary ---
Author Organization [facility] , [facility] Address [address] [place] [address] Phone Care Team Providers Care Hot Metal Charger Name Role Phone Rafi PRESCOTT, Maribel Unavailable Unavailable ESTHER MIRANDA Unavailable [phone] Federico Cabello MD Unavailable [phone] Reason for Visit and Chief Complaint The Chief Complaint is: Mid-Low back pain Problems Includes: Problems addressed during this encounter and other active Problems All Visits Onset Date Resolved Date Provider Condition S tatus Lower Back Pain 01/30/2023 Ghulam Vila PA-C A ctive Last Documented On 3 1:01PM ; [facility] Midback Pain 01/30/2023 Ghulam Vila PA-C Acti ve Last Documented On 3 1:01PM ; [facility] Plan of Treatment Fall Risk Assessment: [...] - Last Documented On 05/15/2023 9:01AM ; [facility] Patient was seen by myself Ghulam [...] - Last Documented On 05/15/2023 9:01AM ; [facility], [facility] Instructions to patient Intervention and counseling on cessation of tobacco use Last Documented On 3 8:48AM ; [facility], [facility] Lose weight Last Documented On 3 8:48AM ; [facility], [facility] Assessments Includes: Assessments from this encounter Findings - Overweight - Last Documented On 05/15/2023 9:01AM ; [facility], [facility] T12 kyphoplasty 05/06/2023 - Last Documented On 05/15/2023 9:01AM ; [facility], [facility] Instructions Includes: Instructions from this encounter Instructions to patient Intervention and counseling on cessation of tobacco use Last Documented On 3 8:48AM ; [facility], [facility] Lose weight Last Documented On 3 8:48AM ; [facility], [facility] Medical Equipment - Implanted Devices Includes: Current Devices No Medical Equipment Recorded Medications Includes: Medications discussed during this encounter and other current Medications Current Medications (continue as prescribed) Calcium Carb-Cholecalciferol 600-5 MG-MCG Oral Tablet 11/26/2023 Provider: Stephanie Espinoza APRN Diagnosis: Last Documented On 4 9:11AM By Isadora Cm ; [facility], [facility] Albuterol Sulfate HFA 108 (9 0 Base) MCG/ACT Inhalation Aerosol Solution 11/26/2023 Provider: Stephanie gibbons APRN Diagnosis: Last Documented On 4 9:11AM By Isadora Cm ; [facility], [facility] Furosemide 40 MG Oral Tablet 11/26/2023 Provider: Diagnosis: Last Documented On 4 9:11AM By Isadora Cm ; [facility], [facility] Lisinopril-hydroCHLOROthiazi de 20-25 MG Oral Tablet 11/26/2023 Provider: ESTHER MIRANDA Diagnosis: Last Documented On 4 9:11AM By Isadora Cm ; [facility], [facility] Magnesium Gluconate 500 MG Oral Tablet 11/26/2023 Pr ovider: Stephanie Espinoza APRN Diagnosis: Last Documented On 4 9:11AM By Isadora Cm ; [facility], [facility] Vitamin D3 1.25 MG ([id number] UT) Oral Capsule 11/26/2023 Provider: Stephanie Espinoza [...] pain Last Documented On 3 12:16PM By Feedrico Cabello ; [facility] HYDROcodone-Acetaminophen 5- [...] lc Last Documented: On 05/15/2023 8:49AM ; [facility], [facility] Results Includes: Results discussed during this [...] 01/30/2023 Last Documented On 3 8:48AM ; [facility], [facility] Smoking Status Unknown Procedures and Surgical History Includes: Procedures from this encounter Procedures Code Diagnosis Performing Provider Service L ocation Service Date intervention and counseling on cessation of tobacco use 4000F Last Documented On 3 8:48AM ; [facility] patient screened for future fall risk: documentation of any fall with injury in past year 1100F Last Documented On 3 8:48AM ; [facility] review of medications documented 1160F Last Documented On 3 8:48AM ; [facility], [facility] Medical History Includes: Medical History addressed [...] Time Diagnosis Post Op Ghulam Vila PA-C [facility] 3 8:46AM 8:59AM Overweight Insurance Includes: Active Insurance Policies Plan Name Member ID Group # Subscriber Relationship Effect kelsey Dates 1 - [employer] [id number] Iqra Balbuena Self Clinical Notes Includes: Clinical Notes from this encounter * Progress note Date Encounter Last Documented by 05/15/2023 Post Op Last documented on 05/15/2023; 9:01 AM, Ghulam Vila PA-C; [facility] Active Problems & Conditions - Lower [...]
--- OUTSIDE RECORDS SUMMARY | 2024-02-25 10:04 | XMS_ITS | Clinical Summary ---
Author Organization [facility] , [facility] Address [address] [place] [address] Phone Care Team Providers Care Mechanical Engineering [employer] Name Role Phone Rafi PRESCOTT, Maribel Unavailable Unavailable ESTHER MIRANDA Unavailable [phone] Federico Cabello MD Unavailable [phone] Reason for Visit and Chief Complaint The Chief Complaint is: Mid-Low back pain Problems Includes: Problems addressed during this encounter and other active Problems Current Visit Onset Date Resolved Date Provider Conditio n Status Lower Back Pain 01/30/2023 Ghulam Vila PA-C A ctive Last Documented On 3 1:01PM ; [facility] Past Visits Onset Date Resolved Date Provider Condition Status Midback Pain 01/30/2023 Ghulam Vila PA-C Acti ve Last Documented On 3 1:01PM ; [facility], [facility] Plan of Treatment - Patient screened for future fall risk: documentation of any fall with injury in past year - Last Documented On 12/19/2023 3:28PM ; [facility], [facility] Fall Risk Assessment: This patient has been [...] - Last Documented On 12/19/2023 3:28PM ; [facility], [facility] Referrals To Diagnosis Consult for Pain Management Toba strategic account executive abuse counseling Note: Wait for note to send // cc*Have order ready on paper Last Documented On 4 2:10PM ; [facility], [facility] Instructions to patient Intervention and counseling on cessation of tobacco use Last Documented On 4 9:11AM ; [facility], [facility] Intervention and counseling on cessation of tobacco use Last Documented On 4 9:26AM ; [facility], [facility] Lose weight Last Documented On 4 9:50AM ; [facility], [facility] Assessments Includes: Assessments from this encounter Findings - Overweight - Last Documented On 12/19/2023 3:28PM ; [facility], [facility] Instructions Includes: Instructions from this encounter Instructions to patient Intervention and counseling on cessation of tobacco use Last Documented On 4 9:11AM ; [facility], [facility] Intervention and counseling on cessation of tobacco use Last Documented On 4 9:26AM ; [facility], [facility] Lose weight Last Documented On 4 9:50AM ; [facility], [facility] Medical Equipment - Implanted Devices Includes: Current Devices No Medical Equipment Recorded Medications Includes: Medications discussed during this encounter and other current Medications Discontinued / Stopped on this date Stephanie Espinoza APRN on 11/12/2023 Magnesium Gluconate 500 MG Oral Tablet Pr ovider: Stephanie Espinoza APRN Diagnosis: Last Documented On 4 9:12AM By Isadora Cm ; [facility], [facility] Potassium Chloride Isela ER 2 0 MEQ Oral Tablet Extended Release Provider: Stephanie Espinoza APRN Diagnosis: Last Documented On 4 9:12AM By Isadora Cm ; [facility], [facility] Lisinopril-hydroCHLOROthiazi de 20-25 MG Oral Tablet Provider: ESTHER MIRANDA Diagnosis: Last Documented On 4 9:12AM By Isadora Cm ; [facility], [facility] Albuterol Sulfate HFA 108 (9 0 Base) MCG/ACT Inhalation Aerosol Solution Provider: ESTHER PEARCE ER Diagnosis: Last Documented On 4 9:12AM By Isadora Cm ; [facility], [facility] Bisoprolol Fumarate 10 MG Oral Tablet Pro vider: ESTHER MIRANDA Diagnosis: Last Documented On 4 9:12AM By Isadora Cm ; [facility], [facility] Montelukast Sodium 10 MG Oral Tablet Prov ider: ESTHER MIRANDA Diagnosis: Last Documented On 4 9:12AM By Isadora Cm ; [facility], [facility] Gabapentin 600 MG Oral Tablet Provider: ESTHER MIRANDA Diagnosis: Last Documented On 4 9:12AM By Isadora Cm ; [facility], [facility] Current Medications (continue as prescribed) Calcium Carb-Cholecalciferol 600-5 MG-MCG Oral Tablet 11/26/2023 Provider: Stephanie Espinoza APRN Diagnosis: Last Documented On 4 9:11AM By Isadora Cm ; [facility], [facility] Albuterol Sulfate HFA 108 (9 0 Base) MCG/ACT Inhalation Aerosol Solution 11/26/2023 Provider: Stephanie gibbons APRN Diagnosis: Last Documented On 4 9:11AM By Isadora Cm ; [facility], [facility] Furosemide 40 MG Oral Tablet 11/26/2023 Provider: Diagnosis: Last Documented On 4 9:11AM By Isadora Cm ; [facility], [facility] Lisinopril-hydroCHLOROthiazi de 20-25 MG Oral Tablet 11/26/2023 Provider: ESTHER MIRANDA Diagnosis: Last Documented On 4 9:11AM By Isadora Cm ; [facility], [facility] Magnesium Gluconate 500 MG Oral Tablet 11/26/2023 Pr ovider: Stephanie Espinoza APRN Diagnosis: Last Documented On 4 9:11AM By Isadora Cm ; [facility], [facility] Vitamin D3 1.25 MG (30253 UT) Oral Capsule 11/26/2023 Provider: Stephanie Espinoza APRN Diagnosis: Last Documented On 4 9:11AM By Isadora Cm ; [facility], [facility] Potassium Chloride Isela ER 2 0 MEQ Oral Tablet Extended Release 11/26/2023 Provider: Stephanie Espinoza APRN Diagnosis: Last Documented On 4 9:11AM By Isadora Cm ; [facility], [facility] Montelukast Sodium 10 MG Oral Tablet 11/26/2023 Prov ider: Diagnosis: Last Documented On 4 9:11AM By Isadora Cm ; [facility] Bisoprolol Fumarate 10 MG Oral Tablet 11/26/2023 Pro vider: Diagnosis: Last Documented On 4 9:11AM By Isadora Cm ; [facility] Folinic-Plus 4-50-2 MG Oral Tablet 11/12/2023 Provid er: Stephanie Espinoza APRN Diagnosis: Last Documented On 4 9:11AM By Isadora Cm ; [facility] Gabapentin 800 MG Oral Tablet 11/12/2023 Provider: Stephanie Espinoza APRN Diagnosis: Last Documented On 4 9:11AM By Isadora Cm ; [facility] HYDROcodone-Acetaminophen 7.5-325 MG Oral Tablet 01/25 Provider: ESTHER MIRANDA Diagnosis: Last Documented On 3 1:01PM By Yesi Marion ; [facility] amLODIPine Besylate 10 MG Oral Tablet 01/25/2023 Pro vider: ESTHER MIRANDA Diagnosis: Last Documented On 3 1:01PM By Yesi Marion ; [facility] traMADol HCl 50 MG Oral Tablet 01/21/2023 Provider: ESTHER MIRANDA Diagnosis: Last Documented On 3 1:01PM By Yesi Marion ; [facility] Folic Acid 1 MG Oral Tablet 01/02/2023 Provider: Diagnosis: Last Documented On 3 1:01PM By Yesi Marion ; [facility] Cyclobenzaprine HCl 5 MG Oral [...] On 3 2:11PM By Federico Cabello ; [facility] HYDROcodone-Acetaminophen 5- 325 MG Oral [...] 12/19/2023 Last Documented On 4 9:52AM ; [facility], [facility] Caffeine use 12/19/2023 Last Documented On 4 9:52AM ; [facility] No recent change in diet 12/19/2023 Last Documented On 4 9:52AM ; [facility] Not exercising regularly 12/19/2023 Last Documented On 4 9:52AM ; [facility] Not using drugs 12/19/2023 Last Documented On 4 9:52AM ; [facility], [facility] Yes, current smoker. 12/19/2023 Last Documented On 4 9:52AM ; [facility], [facility] Tobacco use 01/30/2023 Last Documented On 4 9:11AM ; [facility], [facility] Smoking Status Unknown Procedures and Surgical History Includes: Procedures from this encounter Procedures Code Diagnosis Performing Provider Service Location Service Date X-RAY EXAM OF LOWER SPINE 4-5 VIEWS 41137 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 w crnt path fx, verteb, 7thD Federico Cabello MD [facility] 12/19/2023 Last Documented On 4 12:53PM ; [facility], [facility] intervention and counseling on cessation of toba strategic account executive use 4000F Last Documented On 4 9:11AM ; [facility], [facility] patient screened for future fall risk: documentation of any fall with injury in past year 1100F Last Documented On 4 9:11AM ; [facility], [facility] review of medications documented 1160F Last Documented On 4 9:11AM ; [facility], [facility] an X-ray was performed 45189 Last Documented On 4 9:50AM ; [facility] an MRI was performed [facility] [id number] Last Documented On 4 9:27AM ; [facility], [facility] Surgical History Last Updated History of back surgery T11 Kypho 02/25/ 3 ~T12 Kypho 10/23/23 12/19/2023 Last Documented On 4 9:55AM ; [facility] Medical History Includes: Medical History addressed during this encounter Description Last Updated History of Heartburn / Acid Reflux 12/18 Last Documented On 4 9:51AM ; [facility] History of History of Emphysema 12/19/19 24 Last Documented On 4 9:51AM ; [facility] Family History Includes: Family History addressed during this encounter Description Last Updated No significant family history 12/19/2023 Last Documented On 4 9:55AM ; [facility] Review of Systems Includes: Review of [...] Diagnosis NEW PROBLEM/EST PT Federico Cabello MD [facility] 12/19/19 24 9:01AM 9:43AM Overweight Insurance Includes: Active Insurance Policies Plan Name Member ID Group # Subscriber Relationship Effect kelsey Dates 1 - [employer] [id number] Iqra Balbuena Self Clinical Notes Includes: Clinical Notes from this encounter No Clinical Notes Recorded
--- OUTSIDE RECORDS SUMMARY | 2024-02-25 10:04 | XMS_ITS ---
Author Organization [facility] , [facility] Address [address] [place] [address] Phone Care Team Providers Care Document Review Attorney Name Role Phone Rafi PRESCOTT, Maribel Unavailable Unavailable ESTHER MIRANDA Unavailable [phone] Irineo ESPINOZA, Federico Lewis Unavailable [phone] Problems Includes: Active, inactive, and resolved Problems All Visits Onset Date Resolved Date Provider Condition S tatus Lower Back Pain 01/30/2023 Ghulam Vila PA-C A ctive Last Documented On 3 1:01PM ; [facility], [facility] Midback Pain 01/30/2023 Ghulam Vila PA-C Acti ve Last Documented On 3 1:01PM ; [facility], [facility] Plan of Treatment Findings Encounter Date Patient screened for future fall risk: documentation of any fall with injury in past year NEW PROBLEM/EST PT with Federico Cabello MD 12/19/2023 Last Documented On 4 3:28PM ; [facility], [facility] Referrals To Diagnosis Consult with Java Enterprise Architect Overw eight Last Documented On 3 1:53PM ; [facility], [facility] Consult with Java Enterprise Architect Overw eight Note: STAT to see pulmonolog y Dr. Herrmann if Tillar to see if patient can have surgery. She is on O2 and has a T11 compression fracture plan would be for a T11 kypho if cleared. Have clearance sent to Isi Ramesh Last Documented On 3 4:46PM ; [facility], [facility] Consult for Pain Management Toba account associate abuse counseling Note: Wait for note to [...] 12/19/2023 Last Documented On 4 3:28PM ; [facility] Overweight Post Op with [...] weight Last Documented On 3 1:11PM ; [facility] Medical Equipment - Implanted Devices Includes: Current and historical Devices No Medical Equipment Recorded Medications Includes: Current and historical Medications Current Medications (continue as prescribed) Calcium Carb-Cholecalciferol 600-5 MG-MCG Oral Tablet 11/26/2023 Provider: Stephanie Espinoza APRN Diagnosis: Last Documented On 4 9:11AM By Isadora Cm ; [facility], [facility] Albuterol Sulfate HFA 108 (9 0 Base) MCG/ACT Inhalation Aerosol Solution 11/26/2023 Provider: Stephanie gibbons APRN Diagnosis: Last Documented On 4 9:11AM By Isadora Cm ; [facility], [facility] Furosemide 40 MG Oral Tablet 11/26/2023 Provider: Diagnosis: Last Documented On 4 9:11AM By Isadora Cm ; [facility], [facility] Lisinopril-hydroCHLOROthiazi de 20-25 MG Oral Tablet 11/26/2023 Provider: ESTHER MIRANDA Diagnosis: Last Documented On 4 9:11AM By Isadora Cm ; [facility] Magnesium Gluconate 500 MG Oral Tablet 11/26/2023 Pr ovider: Stephanie Espinoza APRN Diagnosis: Last Documented On 4 9:11AM By Isadora Cm ; [facility] Vitamin D3 1.25 MG (52305 UT) Oral Capsule 11/26/2023 Provider: Stephanie Espinoza APRN Diagnosis: Last Documented On 4 9:11AM By Isadora Cm ; [facility] Potassium Chloride Isela ER 2 0 MEQ Oral Tablet Extended Release 11/26/2023 Provider: Stephanie Espinoza APRN Diagnosis: Last Documented On 4 9:11AM By Isadora Cm ; [facility] Montelukast Sodium 10 MG Oral Tablet 11/26/2023 Prov ider: Diagnosis: Last Documented On 4 9:11AM By Isadora Cm ; [facility] Bisoprolol Fumarate 10 MG Oral Tablet 11/26/2023 Pro vider: Diagnosis: Last Documented On 4 9:11AM By Isadora Cm ; [facility] Folinic-Plus 4-50-2 MG Oral Tablet 11/12/2023 Provid er: Stephanie Espinoza APRN Diagnosis: Last Documented On 4 9:11AM By Isadora Cm ; [facility] Gabapentin 800 MG Oral Tablet 11/12/2023 Provider: Stephanie Espinoza APRN Diagnosis: Last Documented On 4 9:11AM By Isadora Cm ; [facility] HYDROcodone-Acetaminophen 7.5-325 MG Oral Tablet 01/25 Provider: ESTHER MIRANDA Diagnosis: Last Documented On 3 1:01PM By Yesi Marion ; [facility] amLODIPine Besylate 10 MG [...] On 4 9:12AM By Isadora Cm ; [facility] HYDROcodone-Acetaminophen 5- 325 MG [...] On 3 12:16PM By Federico Cabello ; [facility] HYDROcodone-Acetaminophen 5- 325 MG Oral Tablet 02/28/2023 - 03/13/2023 Provider: Federico Cabello MD Diagnosis: Take 1 tablet every 8 hrs prn pain Last Documented On 3 3:41PM By Federico Cabello ; [facility] HYDROcodone-Acetaminophen 5- 325 MG Oral Tablet 02/19/2023 - 03/04/2023 Provider: Federico Cabello MD Diagnosis: Take 1 tablet every 8 hrs prn pain Last Documented On 3 2:11PM By Federico Cabello ; [facility] HYDROcodone-Acetaminophen 5- 325 MG Oral Tablet 02/06/2023 - 02/19/2023 Provider: Federico Cabello MD Diagnosis: Take 1 tablet every 8 hrs prn pain Last Documented On 3 2:54PM By Federico Cabello ; [facility], [facility] Albuterol Sulfate HFA 108 (9 0 Base) MCG/ACT Inhalation Aerosol Solution 01/24/2023 - 12/19/2023 Provider: ESTHER MIRANDA Diagnosis: Last Documented On 4 9:12AM By Isadora Cm ; [facility], [facility] Bisoprolol Fumarate 10 MG Or al Tablet 01/15/2023 - 12/19/2023 Provider: ESTHER MIRANDA Diagnosis: Last Documented On 4 9:12AM By Isadora Cm ; [facility], [facility] Montelukast Sodium 10 MG Oral Tablet 01/15/2023 - 12/2023 Provider: ESTHER MIRANDA Diagnosis: Last Documented On 4 9:12AM By Isadora Cm ; [facility], [facility] Gabapentin 600 MG Oral Tablet 01/13/2023 - 12/19/2023 Provider: ESTHER MIRANDA Diagnosis: Last Documented On 4 9:12AM By Isadora Cm ; [facility], [facility] Medications Administered Includes: Administered Medications in patient's chart No Administered Medications Recorded Vital Signs Includes: Vital Signs from 02/24/2023 through 02/25/2024 Vital Name 12/19/2023 09:25A 05/15/2023 08:49A 04/10/2023 09:02A 03/04/2023 11:01A Height (in) 62 62 62 62 Weight (lb) 120 136 136 136 Body Mass Index 21.9 24.9 24.9 24.9 Body Surface Area 1.5 1.6 1.6 1.6 Pain Level 10 Note: [facility] Last Documented: On 12/19/2023 9:25AM ; [facility], [facility] On 05/15/2023 8:49AM ; [facility], [facility] On 04/10/2023 9:02AM ; [facility] On 03/04/2023 11:01AM ; [facility] Results Includes: Results from 02/24/2023 through 02/25/2024 No Results Recorded For Specified Dates History of Present Illness History of Present Illness not supported for this document type No History of Present Illness Recorded Social History Description Last Updated Tobacco use 01/30/2023 Last Documented On 3 8:46AM ; [facility] Smoking Status Unknown Procedures and Surgical History Includes: Procedures from 02/24/2023 through 02/25/2024 Procedures Code Diagnosis Performing Provider Service Location Service Date X-RAY EXAM OF LOWER SPINE 4-5 VIEWS 39854 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 w crnt path fx, verteb, 7thD Federico Cabello MD [facility] 12/19/2023 Last Documented On 4 12:53PM ; [facility] percutaneous vertebral augmentation incl cavity creation 10584 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, vertebra(e), init Federico Cabello MD [facility] 05/06/2023 Last Documented On 3 9:19AM ; [facility] X-RAY EXAM OF THORACIC SPINE 2 VIEWS 07915 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, vertebra(e), init Ghulam Vila PA-C [facility] 04/10/2023 Last Documented On 3 6:31AM ; [facility] X-RAY EXAM OF LOWER SPINE 2-3 VIEWS LIMITED 20613 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, vertebra(e), init Ghulam Vila PA-C [facility] 04/10/2023 Last Documented On 3 6:31AM ; [facility] percutaneous vertebral augmentation incl cavity creation 77889 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, vertebra(e), init Federico Cabello MD [facility] 02/25/2023 Last Documented On 3 9:26AM ; [facility] Medical History Includes: Medical History in patient's [...] No Known Allergies Encounters Includes: Encounters from 02/24/2023 through 02/25/2024 Encounter Provider Location Date Check-In Time Check-Out Time Diagnosis NEW PROBLEM/EST PT Federico Cabello MD [facility] 12/19/19 24 9:01AM 9:43AM Overweight Post Op Ghulam Vila PA-C [facility] 05/15/20 8:46AM 8:59AM Overweight Kyphoplasty Federico Cabello MD [facility] 05/06/20 7:06AM 9:05AM [Patient Encounter] Federico Cabello MD 04/25/20 23 04/10/2023 12:15PM 04/10/2023 11:59PM [Patient Encounter] Federico Cabello MD 04/18/20 23 04/10/2023 3:13PM 04/10/2023 11:59PM NEW PROBLEM/EST PT Ghulam Vila PA-C [facility] 04/10/20 8:11AM 9:10AM Overweight Post Op Ghulam Vila PA-C [facility] 03/04/20 10:54AM 11:13AM Overweight [Patient Encounter] Federico Cabello MD 02/29/20 23 02/25/2023 3:20PM 02/25/2023 11:59PM Kyphoplasty Federico Cabello MD [facility] 02/26/20 7:09AM 8:42AM Insurance Includes: Active Insurance Policies Plan Name Member ID Group # Subscriber Relationship Effect kelsey Dates 1 - [employer] [id number] Iqra Balbuena Self Clinical Notes Includes: Signed Clinical Notes starting from 06/28/2022 * Progress note Date Encounter Last Documented by 05/15/2023 Post Op Last documented on 05/15/2023; 9:01 AM, Ghulam Vila PA-C; [facility] Active Problems & Conditions - Lower [...] on 05/03/2023; 12:29 PM, Ghulam Vila PA-C; [facility] Active Problems & Conditions - Lower [...] on 03/04/2023; 11:15 AM, Ghulam Vila PA-C; [facility] Active Problems & Conditions - Lower [...]
--- OUTSIDE RECORDS SUMMARY | 2024-02-25 10:04 | XMS_ITS ---
Care Plan - [facility], [facility] Created on: February 25, 2024 SreeIqra : 1955 Sex: Female Author Organization [facility] , [facility] Address [address] [place] [address] Phone Care Team Providers Care Seam Finisher Name Role Phone Rafi PRESCOTT, Maribel Unavailable Unavailable ESTHER MIRANDA Unavailable [phone] Irineo ESPINOZA, Federico Lewis Unavailable [phone]
[2024-02-25 10:26] VITALS: BP 171/108; PULSE 122; RESP 16; TEMP 36.4; O2SAT 92; BMI 22.1
--- NOTE | 2024-02-25 10:31 | PC.NURSE ---
PROVIDER AWARE OF PT BP
--- NOTE | 2024-02-25 10:42 | PC.NURSE ---
provider Yesenia notified of pt BP 165/110, HR 118-120 pt reports started on new bp medication last week by PCP. Provider states he will go and speak with pt.
--- NOTE | 2024-02-25 11:00 | PC.NURSE ---
provider spoke with pt
--- NOTE | 2024-02-25 11:09 | EXP.PAIN.PRO ---
Procedure Date: 02/25/24 Time: 11:00 Anesthesiologist:: Delvin Woods CRNA Complications:: None Pre-procedure Diagnosis:: Degenerative disc lumbar spine multilevels. Lumbar radiculopathy. Lumbar spondylosis. Multilevel lumbar facet arthropathy Post-procedure Diagnosis:: Same. Indications for Procedure:: Patient is a very pleasant 68-year-old female comes our clinic today for bilateral lumbar medial branch block L3-4, L4-5. Patient was scheduled last week and due to hypertension we canceled her injection. Patient was sent to primary care for evaluation regarding hypertension. She returns today on a new hypertensive medication. However, she still maintains a diastolic of 110. Discussed in detail with the patient regarding treatment options regarding her low back pain. Will move forward with bilateral medial branch block L3-4, L4-5 with local injection only. Procedure Details:: Informed consent was obtained and the risk and benefits of the procedure was explained to the patient. Patient was taken to the procedure room where noninvasive monitors were placed, including noninvasive blood pressure cuff as well as pulse oximeter. The area over the lumbar spine was cleansed using chlorhexidine as a cleansing solution. I anesthetized the skin and subcutaneous tissues with 1% Lidocaine. I placed 22-gauge spinal needles into the facet joint/ medial branches of [L3-L4, L4-L5, bilaterally. Needle placement was confirmed with fluoroscopy. After confirmation of needle placement, each site was injected with 1 mL of 1% lidocaine and 0.25 % Marcaine. A total of 80 mg of depo medrol was used for bilateral medial branch blocks of [L3-L4, L4-L5, bilaterally. Patient tolerated the procedure without difficulty. There were no complications. Plan and Disposition:: Patient was encouraged to follow-up with her PCP regarding continued hypertension. She was discharged without incident.
[2024-02-25 11:10] VITALS: BP 190/116; PULSE 122; RESP 18; O2SAT 93
--- NOTE | 2024-02-25 11:10 | PC.NURSE ---
Addendum entered by Ifrah Segura RN 02/25/24 11:28: PROVIDER AWARE OF BP Original Note: 1
[2024-02-25] MEDS: LIDOCAINE 1% 5ML PF VIAL 5 ML (11:48)
[2024-02-25] MEDS: methylPREDNISolone ACETATE 80MG/ML VIAL 80 MG (12:01)
[2024-02-25] MEDS: BUPIVACAINE 0.25% 10ML INJ 25 MG IJ (12:01)
== END 2024-02-25 11:10 | disposition home or self-care (01) ==
PROVIDERS: PCP Nurse Practitioner; Visit Provider Nurse Anesthetist, Certified Registered
DX: M47.816 Spondylosis without myelopathy or radiculopathy, lumbar region (principal); M51.36 Other intervertebral disc degeneration, lumbar region
CPT/HCPCS: 64493; 64494; J1010

== ENCOUNTER 2024-04-09 11:36 | Outpatient (POV) | payer MEDICARE, SELFPAY ==
--- NOTE | 2024-04-09 12:01 | EXP.PAIN.SOA ---
[facility] Disclaimer: The information contained in this section may have been updated after the patient was seen, as this information can be updated by other users. Medical History Hypokalemia Elevated troponin COPD (chronic obstructive pulmonary disease) Nocturnal hypoxemia Pulmonary emphysema Incidental pulmonary nodule, greater than or equal to 8mm Smoking greater than 30 pack years Dyspnea on exertion Tobacco abuse disorder Tobacco abuse counseling COPD (chronic obstructive pulmonary disease) Cervical cancer Surgical History History of dilation and curettage History of back surgery Family History Other Diabetes Social History Smoking Status: Current every day smoker tobacco type: cigarettes packs per day: 2 second hand exposure: Yes alcohol intake: current alcohol intake frequency: 0-2 drinks per day current occupational status: unemployed Travel in the last 8 weeks: None household members: spouse housing: house current occupational exposures/hazards: No PM Subjective & Objective Subjective Subjective:: Patient is a pleasant 69-year-old female who presents today for follow-up of lumbar L3-L4 and L4-L5 on 02/25/2024. Today she rates her pain a 9 out of 10. Patient denies any new trauma or injury. She does state that the injection actually did no improvement and caused more pain. Patient states that she feels like he hit a nerve and states there is more pain in her mid back. She states her pain is constant and does interfere with her ability perform activities of daily living. Patient states she has difficulty walking due to the pain and even has complaints of trouble lifting her legs up. Patient does rely on assistive devices to help with ambulation. Patient does have osteoporosis and history of compression fractures with kyphoplasty. Patient patient has tried and failed conservative therapy. Her Azael has been reviewed and is appropriate. Review of Systems: General: No recent weight changes, no fever, no sleep disturbances Respiratory: No cough, no shortness of air, no recurring pulmonary infections Cardiovascular/peripheral vascular: No chest pain, no palpitations, no edema, no shortness of breath Gastrointestinal: No new onset incontinence, normal bowel movements reported Genitourinary: No new onset incontinence Musculoskeletal: Low back pain, mid back pain Psychiatric: [Normal mood/affect] Neurological: [Denies weakness in extremities], [denies balance issues] Pain at rest (0-10 scale): 9 Objective Objective:: Physical Exam: General: Alert and oriented x3, no acute distress, pleasant and cooperative Lungs: Respirations even and unlabored, symmetrical chest expansion Eyes: PERRL Musculoskeletal: Flexion and extension of lumbar [spine] somewhat guarded secondary to pain, [antalgic gait noted] Neurological: Speech clear, no gross sensory deficit Has patient had previous pain injection?: Yes Percent improvement in pain since last injection: 0 Conservative treatment options previously tried: Home exercise plan Length of treatment: Longer than 6 weeks Meds Home Medications and Allergies Home Medications ?Medication ?Instructions ?Recorded ?Confirmed ?Type furosemide 20 mg tablet 20 mg PO DAILY Fluid 07/16/17 02/25/24 History gabapentin 600 mg tablet 600 mg PO TID Pain 07/16/17 02/25/24 History montelukast 10 mg tablet 10 mg PO PM Allergy symptoms 07/16/17 02/25/24 History ipratropium 0.5 mg-albuterol 3 mg 3 ml inhalation QIDP PRN Shortness 07/03/21 02/25/24 History (2.5 mg base)/3 mL nebulization Of Breath soln fluticasone 250 mcg-salmeterol 50 1 inh inhalation BID COPD 04/19/22 02/25/24 History mcg/dose blistr powdr for inhalation (Advair Diskus) tiotropium bromide 2.5 2 inh inhalation DAILY COPD 05/03/22 02/25/24 History mcg/actuation mist for inhalation (Spiriva Respimat) lisinopril 20 1 tab PO BID Hypertension 10/26/22 02/25/24 History mg-hydrochlorothiazide 25 mg tablet folic acid 1 mg tablet 1 mg PO DAILY #30 tabs 10/27/22 02/25/24 Rx thiamine mononitrate (vit B1) 100 100 mg PO DAILY 30 days #30 tabs 10/27/22 02/25/24 Rx mg tablet bisoprolol fumarate 10 mg tablet 10 mg PO DAILY Heart rate 30 days 04/30/23 02/25/24 Rx #30 tabs denosumab 60 mg/mL subcutaneous 60 mg SQ DIRECTED 01/27/24 02/25/24 History syringe (Prolia) ondansetron 4 mg disintegrating 4 mg PO Q8H PRN nausea and 02/12/24 02/25/24 Rx tablet vomiting 4 days #12 tabs New Prescriptions to Start Prescriptions: Allergies Allergy/AdvReac Type Severity Reaction Status Date / Time No Known Allergies Allergy Verified 02/12/24 15:46 Assessment and Plan *Assessment and plan (1) Lumbar facet arthropathy: Status: Acute Category: Medical Code(s): M47.816 - Spondylosis without myelopathy or radiculopathy, lumbar region (2) Chronic pain syndrome: Status: Acute Category: Medical Code(s): G89.4 - Chronic pain syndrome (3) Compression fracture: Status: Acute Category: Medical (4) Degenerative disc disease, lumbar: Status: Acute Category: Medical Code(s): M51.36 - Other intervertebral disc degeneration, lumbar region Plan Patient has chronic pain throughout her back with limited range of motion. I did discuss with the patient that due to the worsening pain and history of compression fractures she may be a beneficial candidate of a intrathecal pain pump trial. Risk and benefits were discussed with the patient and she would like to proceed forward with this plan of care. Patient has tried and failed conservative therapy including continued at home stretching exercise for longer than 6 weeks. I did give the patient a pump booklet during today's visit to review over and write down any questions or concerns patient agrees with this plan of care. I did also discuss regarding ordering physical therapy however patient declines this option currently. Patient does have significant heart and pulmonary issues that limit her mobility and activity levels. Patient will be sent for psychological evaluation and if deemed an appropriate candidate we will proceed forward with the pump trial at a later date. Patient will return to clinic in 1 month for reevaluation of symptoms and plan of care. Patient has been instructed to contact the clinic with any concerns before the next appointment. Dr. Mas has reviewed this note and agrees with this plan of care. This note was dictated using voice recognition software and make contain errors or omissions. All injections are used with Lidocaine or Bupivacaine and Depo Medrol.
[2024-04-09 12:38] VITALS: BP 123/70; PULSE 111; RESP 18; O2SAT 93; BMI 22.6
== END 2024-04-09 23:59 | disposition home or self-care (01) ==
LOC: SC.PAIN 11:39
PROVIDERS: PCP Nurse Practitioner; Visit Provider Nurse Practitioner Family
DX: M47.816 Spondylosis without myelopathy or radiculopathy, lumbar region (principal); G89.4 Chronic pain syndrome; M51.36 Other intervertebral disc degeneration, lumbar region; F17.210 Nicotine dependence, cigarettes, uncomplicated; Z73.89 Other problems related to life management difficulty; Z79.899 Other long term (current) drug therapy; Z87.310 Personal history of (healed) osteoporosis fracture
CPT/HCPCS: 99212; G0463

== ENCOUNTER 2024-04-15 13:30 | Observation (INO) | payer MEDICARE, SELFPAY ==
[2024-04-15] VITALS (16 sets, daily range): BP systolic 165–203; BP diastolic 88–115; PULSE 87–130; RESP 16–23; TEMP 36.6–37; O2SAT 88–99; BMI 21.9
--- NOTE | 2024-04-15 | ECG_ITS ---
APPROVED REPORT Exam: Resting ECG HR:129 bpm ECG Measurements Heart Rate 129 AXES WY 142 P 84 QRSd 93 QRS -87 QT 305 T 72 QTc 381 Conclusion SINUS TACHYCARDIA LEFT AXIS DEVIATION [QRS AXIS < -30] SEPTAL MYOCARDIAL INFARCTION , OF INDETERMINATE AGE [40+ ms Q WAVE IN V1/V2] ABNORMAL ECG Electronically signed by : VIPUL ORTIZ, 04/15/2024 14:38:09
--- NOTE | 2024-04-15 13:34 | CT_ITS ---
FINAL REPORT TECHNIQUE: The patient was injected with IV contrast. Axial images were obtained through the chest in a PE protocol. 3-D reconstruction images were also performed. Individualized dose reduction techniques using automated exposure control or adjustment of the MA and/or KV according to patient's size were employed. CLINICAL HISTORY: CP tachy COMPARISON: 08/29/2023 FINDINGS: Mediastinal vasculature is adequately opacified. No pulmonary artery filling defects are identified to suggest PE. There is no aortic dissection. There is dense calcification of the aortic arch and thoracic aorta. There is bulky plaque within the proximal descending thoracic aorta best seen on image 36 of series 9. There is no axillary adenopathy. There is no hilar or mediastinal adenopathy. The heart size is normal. There is no pericardial or pleural effusion. Again identified is a spiculated mass in the posterior aspect of the right upper lobe measuring 1.7 x 1.3 cm, similar to prior. Finding is best seen on image 35 of series 9. The previously noted satellite lesion more inferiorly measures 7 mm. This is well seen on image 38 of series 9. Both are stable in size. There is a small to moderate hiatal hernia. Extensive perinephric stranding is identified. IMPRESSION: No pulmonary embolus or dissection. Two masses in the posterior right upper lobe which are stable but remain concerning for underlying neoplasia. Small to moderate hiatal hernia. Extensive perinephric stranding. Reviewed, Interpreted and Dictated by Eliel Moreno MD Transcribed by Em Rodríguez Authenticated and [facility]
[2024-04-15] MEDS: ASPIRIN 81MG CHEWABLE TABLET 324 MG PO (13:42)
[2024-04-15 13:43] LABS: Lactate Venous 1.5 mmol/L (0.4-2.0); VBG Base Excess 4.5 mmol/L (-2.4-2.3); VBG PH 7.36 mmol/L (7.31-7.41); VBG PO2 30.2 mmol/L (28-40); VBG Total CO2 31.7 mmol/L (23-27)
[2024-04-15 13:44] LABS: Basophils # 0.1 K/mm3 (0-0.2); Basophils % 0.7 % (0.1-2.0); Eosinophils # 0.2 K/mm3 (0.0-0.4); Hematocrit 46.7 % (37.0-47.0); Hemoglobin 15.2 g/dL (12.2-16.2); Lymphocytes # 1.7 K/mm3 (0.7-4.5); Lymphocytes % 15.1 % (10-50); Mean Corpuscular HGB Conc 32.6 g/dL (31.8-35.4); Mean Corpuscular Hemoglobin 33.2 pg (27.0-31.2); Mean Corpuscular Volume 101.7 fl (81-99); Mean Platelet Volume 6.8 fl (7.4-10.4); Monocytes # 0.3 K/mm3 (0.1-1.0); Monocytes % 2.4 % (1.7-9.3); Neutrophils % 79.9 % (37.0-80.0); Platelet Count 251 K/mm3 (142-424); Red Blood Count 4.59 M/mm3 (4.20-5.40); Red Cell Distribution Width 12.8 % (11.5-17.5); White Blood Count 11.3 K/mm3 (4.8-10.8)
[2024-04-15 13:47] LABS: Albumin Level 4.2 g/dl (3.5-5.0); Chloride 92 mmol/L (98-107); Sodium 131 mmol/L (136-145); VBG PCO2 54.7 mmol/L (35-51)
[2024-04-15 13:48] LABS: Potassium 3.3 mmoL/L (3.5-5.1)
[2024-04-15 13:50] LABS: Anion Gap 10.3 mEq/L (5-15); Blood Urea Nitrogen 13 mg/dl (7-17); Carbon Dioxide 32 mmol/L (22.0-30.0); Creatinine Clearance Estimated 46 mL/min (50-200); Estimated Glomerular Filt Rate 71 ml/min (>60); GFR (African American) 86 ML/MIN (>60)
[2024-04-15 13:51] LABS: Alanine Aminotransferase 18 U/L (12-78); Albumin/Globulin Ratio 1.4 (1.1-1.8); Alkaline Phosphatase 50 U/L (38-126); Aspartate Amino Transferase 27 U/L (14-36); Bilirubin,Total 1.1 mg/dl (0.2-1.3); Calcium 10.9 mg/dl (8.4-10.2); Globulin 2.9 g/dL (1.3-3.2); Glucose 95 mg/dl (74-100); Total Protein,Serum 7.1 g/dl (6.3-8.2)
--- NOTE | 2024-04-15 13:52 | [facility].EDCP ---
Discharge Plan Disposition Patient Disposition: Admitted Chief Complaint: Chest Pain Prescriptions Prescriptions: No Action ipratropium-albuterol 0.5 mg-3 mg(2.5 mg base)/3 mL solution for nebulization 3 ml INHALATION QIDP PRN (Reason: Shortness Of Breath) bisoprolol fumarate 10 mg tablet 10 mg PO DAILY 30 Days Qty: 30 2RF gabapentin 600 MG tablet 600 mg PO TID montelukast 10 MG tablet 10 mg PO PM furosemide 20 MG tablet 20 mg PO DAILY lisinopril-hydrochlorothiazide 20-25 mg tablet 1 tab PO BID folic acid 1 mg Tablet 1 mg PO DAILY Qty: 30 3RF thiamine mononitrate (vit B1) 100 mg Tablet 100 mg PO DAILY 30 Days Qty: 30 3RF fluticasone propion-salmeterol [Advair Diskus] 250-50 mcg/dose blister with device 1 inh INHALATION BID Spiriva Respimat 2.5 mcg/actuation mist 2 inh inhalation DAILY Prolia 60 mg/mL Syringe 60 mg SQ DIRECTED Rx Instructions: every 6 months ondansetron 4 mg tablet,disintegrating 4 mg PO Q8H PRN (Reason: nausea and vomiting) 4 Days Qty: 12 0RF Clinical Impressions Clinical Impression: Acute exacerbation of chronic obstructive pulmonary disease, Hypoxic respiratory failure Print Language Print Language: Mosotho Discharge ED Provider: Rey Mccabe [facility] General Chief Complaint: Chest Pain Stated Complaint: cp Time Seen by Provider: 04/15/24 13:30 Mode of Arrival: Ambulatory Source of Information: Patient and Relative Limitations: No Limitations Description of Symptoms (Recalled from ER Triage Doc. by RN): pt presents to ED with c/o weakness, dizziness, back pain, intermittent chest pain. pt reports symptoms intermittent for the past 2 weeks. History of Present Illness HPI narrative: Patient is a 69-year-old female with multiple comorbidities who presents emergency department for evaluation of multiple complaints. Patient has had shortness of breath, chest pain, global weakness, cough that has been worsening over the last 2 weeks. She becomes dizzy when rising from seated position, does not have any dizziness reported currently. Chest pain is intermittent,, substernal. She has become progressively weak limiting her ability to complete her activities of daily living at home. No trauma. No other acute complaints at this time. She has COPD for which she reports she has been compliant with her home inhalers and is not on home oxygen. Related Data Home Medications ?Medication ?Instructions ?Recorded ?Confirmed furosemide 20 mg tablet 20 mg PO DAILY Fluid 07/16/17 04/09/24 gabapentin 600 mg tablet 600 mg PO TID Pain 07/16/17 04/09/24 montelukast 10 mg tablet 10 mg PO PM Allergy symptoms 07/16/17 04/09/24 ipratropium 0.5 mg-albuterol 3 mg 3 ml inhalation QIDP PRN Shortness 07/03/21 04/09/24 (2.5 mg base)/3 mL nebulization Of Breath soln fluticasone 250 mcg-salmeterol 50 1 inh inhalation BID COPD 04/19/22 04/09/24 mcg/dose blistr powdr for inhalation (Advair Diskus) tiotropium bromide 2.5 2 inh inhalation DAILY COPD 05/03/22 04/09/24 mcg/actuation mist for inhalation (Spiriva Respimat) lisinopril 20 1 tab PO BID Hypertension 10/26/22 04/09/24 mg-hydrochlorothiazide 25 mg tablet denosumab 60 mg/mL subcutaneous 60 mg SQ DIRECTED 01/27/24 04/09/24 syringe (Prolia) Previous Rx's ?Medication ?Instructions ?Recorded folic acid 1 mg tablet 1 mg PO DAILY #30 tabs 10/27/22 thiamine mononitrate (vit B1) 100 100 mg PO DAILY 30 days #30 tabs 10/27/22 mg tablet bisoprolol fumarate 10 mg tablet 10 mg PO DAILY Heart rate 30 days 04/30/23 #30 tabs ondansetron 4 mg disintegrating 4 mg PO Q8H PRN nausea and 02/12/24 tablet vomiting 4 days #12 tabs Allergies Allergy/AdvReac Type Severity Reaction Status Date / Time No Known Allergies Allergy Verified 02/12/24 15:46 [facility] Disclaimer: The information contained in this section may have been updated after the patient was seen, as this information can be updated by other users. Medical History Hypokalemia Elevated troponin COPD (chronic obstructive pulmonary disease) Nocturnal hypoxemia Pulmonary emphysema Incidental pulmonary nodule, greater than or equal to 8mm Smoking greater than 30 pack years Dyspnea on exertion Tobacco abuse disorder Tobacco abuse counseling COPD (chronic obstructive pulmonary disease) Cervical cancer Surgical History History of dilation and curettage History of back surgery Family History Other Diabetes Social History Smoking Status: Current every day smoker tobacco type: cigarettes packs per day: 2 second hand exposure: Yes alcohol intake: current alcohol intake frequency: 0-2 drinks per day current occupational status: unemployed Travel in the last 8 weeks: None household members: spouse housing: house current occupational exposures/hazards: No Other Medical History Have you received the Flu Vaccine for this season: Yes Have you received the Pneumonia Vaccine: Yes ROS Obtained: Yes Systems reviewed as appropriate & no additional complaints except as documented Physical Exam General General appearance: alert and in no apparent distress Head Head exam: atraumatic and normocephalic Eye Eye exam: Present PERRL and EOMI ENT ENT exam: Present mucous membranes moist Neck Neck exam: Present normal inspection Chest Chest inspection: Present normal inspection and symmetric chest wall rise Respiratory Respiratory exam: Present wheezes, prolonged expiratory phase and other (Severely restricted air movement all lung newman.); Absent respiratory distress Cardiovascular Cardiovascular exam: Present regular rate and normal rhythm Abdominal Exam Abdominal exam: Present soft; Absent tenderness Extremities Exam Extremities exam: Present normal inspection and other (5 out of 5 strength bilateral lower extremities. Palpable dorsal pedal pulses bilaterally. No pitting edema.) Neurological Exam Neurological exam: Present alert and CN II-XII intact; Absent motor sensory deficit Psychiatric Psychiatric exam: Present normal affect Skin Skin exam: Present warm and dry HEART Score HEART Score HEART Score assessment performed?: Yes History (anamnesis): Moderately suspicious ECG: Non-specific disturbance Age: >65 years Risk factors: 3 or more risk factors Troponin: </= normal limit HEART Score: 6 Critical Care Critical Care Time Critical Care Time: Yes Attestation: On 04/15/24, the high probability of a clinically significant, sudden or life threatening deterioration of the following system(s) required my full and direct attention, intervention and personal management. The time I documented below is in addition to time spent performing reported procedures but includes the following listed in this critical care notation. Total Time Total Critical Care Time: 40 Medical Decision Making Azael Inquiry Pt receiving controlled substance: No Vital Signs Vital Signs: 04/15/24 13:32 04/15/24 13:36 04/15/24 14:00 Temperature 97.9 F Temperature Source Oral Pulse Rate 124 H 118 H Pulse Rate [Left Radial] 128 H Respiratory Rate 20 22 18 Blood Pressure 165/115 H 182/113 H Blood Pressure [Right Arm] 165/115 H Blood Pressure Mean [Right Arm] 131 02 Sat by Pulse Oximetry 95 96 94 L Oxygen Delivery Method Room Air Room Air Room Air 04/15/24 14:30 04/15/24 15:00 Temperature Temperature Source Pulse Rate 123 H 125 H Pulse Rate [Left Radial] Respiratory Rate 18 16 Blood Pressure 169/99 H 177/88 H Blood Pressure [Right Arm] Blood Pressure Mean [Right Arm] 02 Sat by Pulse Oximetry 99 99 Oxygen Delivery Method Room Air Room Air Lab Data Labs: Lab Results 04/15/24 13:34: WBC 11.3 H, RBC 4.59, Hgb 15.2, Hct 46.7, MCV 101.7 H, MCH 33.2 H, MCHC 32.6, RDW 12.8, Plt Count 251, MPV 6.8 L, Neut % (Auto) 79.9, Lymph % (Auto) 15.1, Valley % (Auto) 2.4, Eos % (Auto) 2.0, Baso % (Auto) 0.7, Neut # (Auto) 9.0 H, Lymph # (Auto) 1.7, Valley # (Auto) 0.3, Eos # (Auto) 0.2, Baso # (Auto) 0.1, VBG pH 7.36, VBG pCO2 54.7 H, VBG pO2 30.2, VBG HCO3 30.0, VBG Total CO2 31.7 H, VBG O2 Saturation 60.0, VBG Base Excess 4.5 H, VBG Lactic Acid 1.5, Sodium 131 L, Potassium 3.3 L, Chloride 92 L, Carbon Dioxide 32 H, Anion Gap 10.3, BUN 13, Creatinine 0.80, Estimated Creat Clear 46, Estimated GFR 71, Est GFR ( Amer) 86, Glucose 95, Calcium 10.9 H, Total Bilirubin 1.1, AST 27, ALT 18, Alkaline Phosphatase 50, Troponin I 0.02, Total Protein 7.1, Albumin 4.2, Globulin 2.9, Albumin/Globulin Ratio 1.4, HIV 1&2 Antibody Rapid Nonreactive 04/15/24 13:34 04/15/24 13:34 Response Orders (Tests/Meds): ED MEDICATIONS Generic Name Dose Route Start Last Admin Trade Name Anatoly PRN Reason Stop Dose Admin Acetaminophen 650 mg 04/15/24 15:40 Acetaminophen 325mg Tab PO 05/15/24 15:39 Q4HP PRN Fever or Mild Pain (1-3) Albuterol/Ipratropium 3 ml 04/15/24 18:00 Ipratropium/Albuterol 3 Ml [facility] 05/15/24 17:59 Q6RT VICENTE Budesonide 0.5 mg 04/15/24 18:00 Budesonide 0.5mg/2ml [facility] 05/15/24 17:59 BIDRT VICENTE Enoxaparin Sodium 40 mg 04/16/24 09:00 Enoxaparin 40mg/0.4ml Syringe SQ 05/16/24 08:59 DAILY VICENTE Lactated Ringer's 1,000 mls @ 999 mls/hr 04/15/24 15:29 Lactated Ringer's 1000 Ml Bag IV 04/15/24 16:29 .Q1H1M ONE Discontinued Medications Generic Name Dose Route Start Last Admin Trade Name Anatoly PRN Reason Stop Dose Admin Albuterol/Ipratropium 9 ml 04/15/24 13:47 04/15/24 14:02 Ipratropium/Albuterol 3 Ml [facility] 04/15/24 13:48 9 ml ONCE ONE Administration Aspirin 324 mg 04/15/24 13:34 04/15/24 13:42 Aspirin 81mg Chewable Tablet PO 04/15/24 13:35 324 mg ONCE ONE Administration Ceftriaxone Sodium 1 gm/ 50 mls @ 100 mls/hr 04/15/24 13:46 04/15/24 14:02 Sodium Chloride IV 04/15/24 14:15 100 mls/hr ONCE ONE Administration Azithromycin 500 mg/ Sodium 250 mls @ 250 mls/hr 04/15/24 13:47 04/15/24 14:37 Chloride IV 04/15/24 13:48 250 mls/hr ONCE ONE Administration Lactated Ringer's 1,000 mls @ 999 mls/hr 04/15/24 13:45 04/15/24 14:37 Lactated Ringer's 1000 Ml Bag IV 04/15/24 14:45 999 mls/hr .Q1H1M ONE Administration Iopamidol 70 ml 04/15/24 14:54 04/15/24 14:55 Iopamidol-370 (76%);100ml Bottle IV 04/15/24 14:55 70 ml ONCE ONE Administration Methylprednisolone Sodium Succinate 125 mg 04/15/24 13:47 04/15/24 14:02 Methylprednisolone Sod Succ 125mg Vial IV 04/15/24 13:48 125 mg ONCE ONE Administration Sodium Chloride 50 ml 04/15/24 14:54 04/15/24 14:55 0.9 % Sodium Chloride 50 Ml Vial IV 04/15/24 14:55 50 ml ONCE ONE Administration Sodium Chloride 10 ml 04/15/24 14:54 04/15/24 14:55 Sodium Chloride 0.9% 10ml Syr (Rad Only) IV 04/15/24 14:55 10 ml ONCE ONE Administration ORDERS Category Date Time Status CT angio chest - dissection Stat Cat Scan 04/15/24 13:34 Taken POCUS Point of Care (ER Only) Stat Exams 04/15/24 13:34 Taken Basic Metabolic Panel [facility] Lab 04/16/24 06:00 Ordered Basic Metabolic Panel [facility] Lab 04/17/24 06:00 Ordered Basic Metabolic Panel [facility] Lab 04/18/24 06:00 Ordered Basic Metabolic Panel [facility] Lab 04/19/24 06:00 Ordered Basic Metabolic Panel [facility] Lab 04/20/24 06:00 Ordered CBC w/Auto Diff [Complete Blood Count Auto Diff] Stat Lab 04/15/24 13:34 Completed CMP [Comprehensive Metabolic Panel] Stat Lab 04/15/24 13:34 Completed Complete Blood Count Auto Diff AMLAB Lab 04/16/24 06:00 Ordered Complete Blood Count Auto Diff AMLAB Lab 04/17/24 06:00 Ordered Complete Blood Count Auto Diff AMLAB Lab 04/18/24 06:00 Ordered Complete Blood Count Auto Diff AMLAB Lab 04/19/24 06:00 Ordered Complete Blood Count Auto Diff AMLAB Lab 04/20/24 06:00 Ordered Full Resp Panel w/COVID ([facility]) Routine Lab 04/15/24 14:00 Received HIV (1&2) Antibody Rapid Stat Lab 10/02/24 13:34 Completed Hep C Ab with Reflex to RNA Stat Lab 04/15/24 13:34 Received Trop I [Troponin I] Stat Lab 04/15/24 13:34 Completed Troponin I Q3H Lab 04/15/24 16:45 Ordered Troponin I Q3H Lab 04/15/24 19:45 Ordered UA [Urinalysis and Microscopic] Stat Lab 04/15/24 13:47 Ordered Blood Culture Stat Micro 04/15/24 13:58 Received VBG [Venous Blood Gas] Stat RT 04/15/24 13:34 Completed ECG Data Tracing #1: ECG Narrative: Independently inter by me rate is 129, rhythm is regular, axis is leftward deviated, no ST elevation in anatomical contiguous leads, QTc 381. Persistent Q waves in the septal leads compared to EKG from January. [facility] Narrative Medical Decision Narrative: In summary patient is a 69-year-old female past medical history described above who presents emergency department for evaluation of subacute weakness, cough, shortness of breath, paroxysmal chest pain. Patient is hemodynamically stable nontoxic-appearing upon arrival, afebrile, tachycardic with restricted air movement in all lung newman. DuoNebs will be initiated as well as methylprednisolone. Patient will be given 1 L crystalloid resuscitation and started on ceftriaxone and azithromycin given that she could be septic. Aggressive full sepsis dose fluids will be deferred given that she reportedly has a history of taking diuretics and patient will be reassessed. Differential includes COPD exacerbation, pneumonia, aortic dissection, among others. Workup will be conducted with hematologic labs, CT chest with IV contrast, troponins. Initial workup reviewed by me, leukocytosis of 11.3, no actionable anemia, compensated acid-base status, mild hypokalemia and hyponatremia which is stable, initial troponin 0.02. CT imaging informally interpreted by me, no large saddle PE, there appears to be opacities in the right lung. Upon repeat evaluation patient still had very restricted air movement will be placed on continuous albuterol be given to grams of magnesium sulfate. Upon repeat evaluation patient patient was partially volume responsive and had slight resolving tachycardia despite DuoNeb ministration therefore additional crystalloid bolus will be administered. Crystalloid resuscitation will be stopped at 1500 cc. Patient has borderline hypoxemia and is on 1 to 2 L nasal cannula for oxygen saturations greater than 90%. Formal CT read is pending as well as urinalysis and the case was discussed with hospital medicine regarding management they will admit the patient their service for continued evaluation at this time.
[2024-04-15] MEDS: CEFTRIAXONE 1 GM 1 GM in 0.9 % SODIUM CHLORIDE 50 ML IV (14:02)
[2024-04-15] MEDS: METHYLPREDNISOLONE SOD SUCC 125MG VIAL 125 MG IV (14:02)
[2024-04-15] MEDS: IPRATROPIUM/ALBUTEROL 3 ML NEB 9 ML IH (14:02)
[2024-04-15 14:03] LABS: Troponin I 0.02 ng/ml (0.00-0.034)
[2024-04-15 14:06] LABS: Adenovirus,PCR Not Detected (NotDetected); Bordetella Pertussis Not Detected (NotDetected); Chlamydophila Pneumoniae, PCR Not Detected (NotDetected); Coronavirus 19, PCR Not Detected (NotDetected); Coronavirus 229E Not Detected (NotDetected); Coronavirus NL63 Not Detected (NotDetected); Coronavirus OC43 Not Detected (NotDetected); Coronovirus HKU1,PCR Not Detected (NotDetected); Human Metapneumovirus Not Detected (NotDetected); Influenza A, PCR Not Detected (NotDetected); Influenza AH1, 2009 Not Detected (NotDetected); Influenza AH1, PCR Not Detected (NotDetected); Influenza AH3,PCR Not Detected (NotDetected); Influenza B, PCR Not Detected (NotDetected); Mycoplasma Pneumoniae, PCR Not Detected (NotDetected); Parainfluenza 1, PCR Not Detected (NotDetected); Parainfluenza 2, PCR Not Detected (NotDetected); Parainfluenza 3, PCR Not Detected (NotDetected); Parainfluenza 4, PCR Not Detected (NotDetected); Respiratory Syncytial Virus Not Detected (NotDetected); Rhinovirus/Enterovirus Not Detected (NotDetected)
--- NOTE | 2024-04-15 14:07 | PC.NURSE ---
pt resting in bed no needs at this time,call light in reach
[2024-04-15] MEDS: AZITHROMYCIN 500 MG in 0.9 % SODIUM CHLORIDE 250 ML 250 MG IV (14:37)
[2024-04-15] MEDS: LACTATED RINGERS 1000ML 1,000 ML 999 ML IV (14:37)
--- NOTE | 2024-04-15 14:38 | PC.NURSE ---
Pt out of room with Rad for CT
[2024-04-15 14:45] LABS: HIV (1&2) Antibody Rapid NONREACTIVE (NONREACTIVE)
[2024-04-15] MEDS: SODIUM CHLORIDE 0.9% 10ML SYR (RAD ONLY) 10 ML IV (14:55)
[2024-04-15] MEDS: IOPAMIDOL-370 (76%);100ML BOTTLE 70 ML IV (14:55)
[2024-04-15] MEDS: 0.9 % SODIUM CHLORIDE 50 ML VIAL IV (14:55)
--- NOTE | 2024-04-15 15:47 | PC.NURSE ---
call placed to boarding house manager for bed placement
[2024-04-15] MEDS: MAGNESIUM SULFATE IN WATER 2 GM/50 ML PIGGYBACK IV (16:02)
--- NOTE | 2024-04-15 16:10 | PC.NURSE ---
arrived by stretcher from ED
[2024-04-15] MEDS: ALBUTEROL 0.083% 2.5 MG/3 ML NEB 20 MG IH (16:15)
[2024-04-15 17:22] LABS: Troponin I 0.02 ng/ml (0.00-0.034)
--- NOTE | 2024-04-15 17:29 | PC.NURSE ---
A&OX4. TOLERATING 1.5LNC AT THIS TIME, O2 SAT IN LOW 90S. WILL TRY TO WEAN PATIENT TOLERATES. UPON ARRIVAL TO FLOOR, PATIENT HAD TO USE THE BATHROOM, HAD SOME INCONTINENCE ON THE WAY TO THE BATHROOM. NEW PAD PROVIDED, BOTTOM CLEANED. PATIENT IS A X2 ASSIST TO AND FROM THE BATHROOM WITH USE OF CANE WELL. PT IS VERY UNSTEADY AND WEAK AT THIS TIME. ATTEMPTED TO DO MED REC UPON ADMISSION. HOWEVER, PATIENT IS UNABLE TO RECALL MEDICATIONS SHE TAKES. ATTEMPTED TO CALL SON, WHO HELPS PT WITH HER MEDICATIONS. NO ANSWER, LEFT A VOICEMAIL. PATIENT HAS HAD NO NEEDS OR C/O SINCE ARRIVAL TO FLOOR. PATIENT'S BLOOD PRESSURE HAS BEEN ELEVATED SINCE ARRIVAL TO THE HOSPITAL. NOTIFIED MD BUTLER OF V/S. NNO AT THIS TIME. PATIENT IS ASYMPTOMATIC. OTHERWISE, VSS.
--- NOTE | 2024-04-15 18:59 | CT_ITS ---
PROCEDURE INFORMATION: Exam: CT Abdomen And Pelvis Without Contrast Exam date and time: 04/15/2024 7:30 PM Age: 69 years old Clinical indication: Abdominal pain; Additional info: Lower abdominal pain TECHNIQUE: Imaging protocol: Computed tomography of the abdomen and pelvis without contrast. Radiation optimization: All CT scans at this facility use at least one of these dose optimization techniques: automated exposure control; mA and/or kV adjustment per patient size (includes targeted exams where dose is matched to clinical indication); or iterative reconstruction. COMPARISON: PT PET CT Skull Base to Midthigh 06/02/2021 12:44 PM FINDINGS: Lungs: Moderate emphysema. Mild bilateral lower lobe atelectasis. Right lower lobe calcified granuloma. Heart: No cardiomegaly. Small anterior pericardial effusion. Coronary arteries: Moderate coronary artery calcification. Stent in the right coronary artery. Diaphragm: Small hiatal hernia. Liver: Punctate calcified granulomas in the liver. No hepatomegaly. Subcentimeter low-density lesions in the right and left hepatic lobes are too small to characterize. Gallbladder and biliary ducts: Punctate gallstone in the gallbladder. No biliary ductal dilatation. Pancreas: Normal. No ductal dilation. Spleen: Calcified granulomas in the spleen. No splenomegaly. Adrenal glands: Normal. No mass. Kidneys and ureters: Bilateral simple renal cysts measuring up to 2.3 cm in the lateral right kidney. No hydronephrosis. Extensive bilateral perinephric fat stranding. Stomach and bowel: Large amount of fecal material is distending the rectum and is associated with perirectal fat stranding. Mild sigmoid colon diverticulosis. Moderate fecal material throughout the remainder of the colon. No dilated small bowel loops. Appendix: No evidence of appendicitis. Intraperitoneal space: Unremarkable. No free air. No significant fluid collection. Vasculature: Extensive atherosclerotic disease without aneurysm. Lymph nodes: Calcified right hilar lymph node. No adenopathy. Urinary bladder: Unremarkable as visualized. Reproductive: Unremarkable as visualized. Bones/joints: Osteopenia. Previous T11, T12, and L2 vertebroplasties. Mild lumbar spine levoscoliosis. Mild degenerative change of the bilateral hips and sacroiliac joints. Soft tissues: Unremarkable. IMPRESSION: 1. Large amount of fecal material is distending the rectum and is associated with perirectal fat stranding. Findings are suspicious for stercoral colitis. 2. Extensive bilateral perinephric fat stranding could be secondary to medical renal disease. 3. Prior granulomatous disease. COMMENTS: Consistent with the [employer]'s Incidental Findings Committee white paper (J Am Janice Radiol 2018): Any incidental renal lesion less than 1 cm or classified as too small to characterize, or any incidental cystic renal lesion characterized as simple-appearing, is likely benign. No follow-up imaging is recommended for these lesions per consensus recommendations based on imaging criteria.
--- NOTE | 2024-04-15 19:01 | P.HP_ITS ---
History of Present Illness *Admission Date: 04/15/24 *Reason for visit:: AECOPD, acute on chornic hypoxic resp failure *History of present illness: Ms Iqra Balbuena is a 69 year old female with a medical history significant for COPD (on O2 but doesn't know how much) presented with worsening generalized weakness, SOB, and cough. She states it's been going on for 1 week, and that she's been wheezing more and has had to use her rescue inhaler more. Denies chest pain. Workup in the ED significant for WBC 11.3 and a relatively compensated VBG. She was given breathing treatments and steroids but patient continued to be dyspneic on 2L. Case was discussed with ED provider and decision was made to admit patient for acute on chronic hypoxic respiratory failure from AECOPD. [facility] Disclaimer: The information contained in this section may have been updated after the patient was seen, as this information can be updated by other users. Medical History Hypokalemia Elevated troponin COPD (chronic obstructive pulmonary disease) Nocturnal hypoxemia Pulmonary emphysema Incidental pulmonary nodule, greater than or equal to 8mm Smoking greater than 30 pack years Dyspnea on exertion Tobacco abuse disorder Tobacco abuse counseling COPD (chronic obstructive pulmonary disease) Cervical cancer Surgical History History of dilation and curettage History of back surgery Family History Other Diabetes Social History Smoking Status: Current every day smoker tobacco type: cigarettes packs per day: 2 second hand exposure: Yes alcohol intake: current alcohol intake frequency: 0-2 drinks per day current occupational status: unemployed Travel in the last 8 weeks: None household members: spouse housing: house current occupational exposures/hazards: No Other Medical History Have you received the Flu Vaccine for this season: No Have you received the Pneumonia Vaccine: Yes Meds Home Medications and Allergies Home Medications ?Medication ?Instructions ?Recorded ?Confirmed ?Type ipratropium 0.5 mg-albuterol 3 mg 3 ml inhalation QIDP PRN Shortness 07/03/21 04/15/24 History (2.5 mg base)/3 mL nebulization Of Breath soln fluticasone 250 mcg-salmeterol 50 1 inh inhalation BID COPD 04/19/22 04/09/24 History mcg/dose blistr powdr for inhalation (Advair Diskus) tiotropium bromide 2.5 2 inh inhalation DAILY COPD 05/03/22 04/09/24 History mcg/actuation mist for inhalation (Spiriva Respimat) lisinopril 20 1 tab PO DAILY Hypertension 10/26/22 04/15/24 History mg-hydrochlorothiazide 25 mg tablet alprazolam 1 mg tablet 1 mg PO BID 04/15/24 04/15/24 History New Prescriptions to Start Prescriptions: Allergies Allergy/AdvReac Type Severity Reaction Status Date / Time No Known Allergies Allergy Verified 02/12/24 15:46 Exam Data for Last 24 hours Vital signs and Labs for Last 24 Hours: Temp Pulse Resp BP Pulse Ox O2 Del Method O2 Flow Rate 98.0 F 130 H 19 197/106 H 98 Nasal Cannula 1.5 04/15/24 16:09 04/15/24 18:21 04/15/24 16:09 04/15/24 16:09 04/15/24 18:12 04/15/24 18:36 04/15/24 18:36 Laboratory Results - last 24 hr 04/15/24 13:34: WBC 11.3 H, RBC 4.59, Hgb 15.2, Hct 46.7, MCV 101.7 H, MCH 33.2 H, MCHC 32.6, RDW 12.8, Plt Count 251, MPV 6.8 L, Neut % (Auto) 79.9, Lymph % (Auto) 15.1, [place] % (Auto) 2.4, Eos % (Auto) 2.0, Baso % (Auto) 0.7, Neut # (Auto) 9.0 H, Lymph # (Auto) 1.7, [place] # (Auto) 0.3, Eos # (Auto) 0.2, Baso # (Auto) 0.1, VBG pH 7.36, VBG pCO2 54.7 H, VBG pO2 30.2, VBG HCO3 30.0, VBG Total CO2 31.7 H, VBG O2 Saturation 60.0, VBG Base Excess 4.5 H, VBG Lactic Acid 1.5, Sodium 131 L, Potassium 3.3 L, Chloride 92 L, Carbon Dioxide 32 H, Anion Gap 10.3, BUN 13, Creatinine 0.80, Estimated Creat Clear 46, Estimated GFR 71, Est GFR ( Amer) 86, Glucose 95, Calcium 10.9 H, Total Bilirubin 1.1, AST 27, ALT 18, Alkaline Phosphatase 50, Troponin I 0.02, Total Protein 7.1, Albumin 4.2, Globulin 2.9, Albumin/Globulin Ratio 1.4, HIV 1&2 Antibody Rapid Nonreactive 04/15/24 16:52: Troponin I 0.02 I & O for Last 24 hours: Intake & Output 04/12/24 04/13/24 04/14/24 04/15/24 23:59 23:59 23:59 23:59 Intake Total 0 / 0 Output Total 0 / 0 Balance 0 / 0 Weight 54.431 kg Constitutional Constitutional: no acute distress *Routine HEENT Exam Head: Present normocephalic Eye: Present EOMI and PERRL ENT: Present mucous membranes moist *Routine Neck Exam Neck: Present supple; Absent lymphadenopathy *Routine Respiratory Exam Respiratory: Absent CTA bilaterally Comments: Mild wheezing bilateral lung newman. *Routine Cardiovascular Exam Cardiovascular: Present RRR *Routine Abdominal Exam Abdominal: Present soft and normoactive bowel sounds; Absent tenderness *Routine Rectal Exam Rectal:: deferred *Routine Genitalia Exam Genitalia:: deferred *Routine Extremities Exam Extremities: Absent cyanosis, clubbing or edema *Routine Skin Exam Skin: Present warm; Absent rash *Routine Neurological Exam Neurological: Present alert and oriented X3 Assessment and Plan *Assessment and plan (1) Hypoxic respiratory failure: Status: Acute Category: Medical Code(s): J96.91 - Respiratory failure, unspecified with hypoxia (2) Acute exacerbation of chronic obstructive pulmonary disease: Status: Acute Category: Medical Code(s): J44.1 - Chronic obstructive pulmonary disease with (acute) exacerbation Plan Ms Iqra Balbuena is a 69 year old female with a medical history significant for COPD (on O2 but doesn't know how much), hypertension, lumbar radiculopathy presented with worsening generalized weakness, SOB, and cough. She states it's been going on for 1 week, and that she's been wheezing more and has had to use her rescue inhaler more. Denies chest pain. Workup in the ED significant for WBC 11.3 and a relatively compensated VBG. She was given breathing treatments and steroids but patient continued to be dyspneic on 2L. Case was discussed with ED provider and decision was made to admit patient for acute on chronic hypoxic respiratory failure from AECOPD. #Acute on chronic hypoxic respiratory failure #AECOPD #RUL pulmonary masses - Patient less dyspneic and comfortable on 2L after receiving continuous al buterol in the ED. - CT chest revealed two masses in the posterior right upper lobe which are stable but remain concerning for underlying neoplasia - Duonebs scheduled and PRN. - Pulmicort BID. - Steroids and azithromycin for 5 days. - Pulmonology consulted for help further characterize pulmonary masses. #Fecal impaction #Stecoral colitis - Miralax daily. - Enema tomorrow. #Hypertension - Resume home medications once reconciled. Lovenox Full code
--- NOTE | 2024-04-15 19:24 | PC.NURSE ---
Patient left floor with Radiology at 19:21.
--- NOTE | 2024-04-15 19:36 | PC.NURSE ---
Patient back from Radiology at 19:36.
--- NOTE | 2024-04-15 19:41 | PC.NURSE ---
Spoke with Dr Santa re elevated BPs and tachycardia. To come see patient.
[2024-04-15] MEDS: LABETALOL 5MG/ML 20ML MDV 20 MG IV ×2 (19:58→23:40)
--- NOTE | 2024-04-15 20:35 | PC.NURSE ---
BP improved . HR down to 88. Son contacted and to bring his mothers home meds in for verification.
[2024-04-15 20:46] LABS: Troponin I 0.02 ng/ml (0.00-0.034)
[2024-04-15] MEDS: ALPRAZolam 1MG TABLET 1 MG PO (22:21)
[2024-04-16] VITALS (13 sets, daily range): BP systolic 113–197; BP diastolic 53–99; PULSE 75–96; RESP 16–20; TEMP 36.2–37.1; O2SAT 91–99; BMI 21.7
[2024-04-16] MEDS: IPRATROPIUM/ALBUTEROL 3 ML NEB IH ×2 (00:04→06:16)
[2024-04-16] MEDS: LABETALOL 5MG/ML 20ML MDV 20 MG IV (03:55)
[2024-04-16] MEDS: POTASSIUM CHLORIDE 20MEQ TAB 40 MEQ PO ×4 (04:37→18:28)
--- NOTE | 2024-04-16 05:05 | PC.NURSE ---
Has received a total of 60 mg Labetalol for high BPs. BPs go down to 160s/80s but then go back up. HR was tachycardic but has come down to the 80s. resps unlabored 20/min. afebrile. Discussed with Dr Vigil, Nifedipine added for 9AM this morning. 02 sats stable on 1.5 lnc, sats 96-99%. u/a collected and sent to lab. Son resting at bedside.
[2024-04-16 05:16] LABS: Microscopic, Urine URINE MICROSCOPIC (MICROSCOPIC)
[2024-04-16 05:17] LABS: Appearance,Urine CLEAR (Clear); Bilirubin,Urine Negative (Negative); Blood, Urine Negative (Negative); Color,Urine YELLOW (Yellow); Glucose,Urine (UA) Negative (Negative); Ketones,Urine Negative (Negative); Leukocyte Esterase,Urine Negative (Negative); Nitrate,Urine Negative (Negative); Protein,Urine Negative (Negative); Specific Gravity, Urine 1.015 (1.005-1.030)
[2024-04-16] MEDS: NIFEdipine XL 30MG TABLET 30 MG PO (05:25)
[2024-04-16 05:28] LABS: WBC,Urine Occasional #/hpf (0-3)
[2024-04-16 05:29] LABS: Bacteria,Urine Trace /lpf
[2024-04-16] MEDS: BUDESONIDE 0.5MG/2ML NEB 0.5 MG IH (06:16)
[2024-04-16 06:58] LABS: Chloride 93 mmol/L (98-107); Sodium 129 mmol/L (136-145)
[2024-04-16 07:01] LABS: Blood Urea Nitrogen 14 mg/dl (7-17); Carbon Dioxide 32 mmol/L (22.0-30.0); Creatinine Clearance Estimated 45 mL/min (50-200); Estimated Glomerular Filt Rate 83 ml/min (>60); GFR (African American) 100 ML/MIN (>60)
[2024-04-16 07:02] LABS: Calcium 9.9 mg/dl (8.4-10.2); Glucose 128 mg/dl (74-100)
[2024-04-16 07:04] LABS: Anion Gap 7.1 mEq/L (5-15); Potassium 3.1 mmoL/L (3.5-5.1)
[2024-04-16 07:29] LABS: Eosinophils % 0.5 % (0.1-12.0); Hematocrit 37.5 % (37.0-47.0); Lymphocytes # 0.8 K/mm3 (0.7-4.5); Lymphocytes % 11.2 % (10-50); Mean Corpuscular HGB Conc 33.6 g/dL (31.8-35.4); Mean Corpuscular Hemoglobin 33.7 pg (27.0-31.2); Mean Corpuscular Volume 100.5 fl (81-99); Mean Platelet Volume 7.1 fl (7.4-10.4); Monocytes # 0.2 K/mm3 (0.1-1.0); Monocytes % 2.6 % (1.7-9.3); Neutrophils # 5.8 K/mm3 (1.8-7.8); Neutrophils % 85.6 % (37.0-80.0); Platelet Count 217 K/mm3 (142-424); Red Blood Count 3.73 M/mm3 (4.20-5.40); Red Cell Distribution Width 12.7 % (11.5-17.5); White Blood Count 6.8 K/mm3 (4.8-10.8)
[2024-04-16 07:32] LABS: MANUAL DIFFERENTIAL MANUAL DIFFERENTIAL (MANUAL DIFF)
[2024-04-16 07:47] LABS: Hemoglobin 12.8 g/dL (12.2-16.2)
[2024-04-16 08:17] LABS: Lymphocytes % 11 % (10-50); Macrocytosis 1+; Neutrophils % 89 % (42-76); Platelet Estimate Normal; Total Cells Counted 100
--- NOTE | 2024-04-16 08:33 | HMH.PHAINT1 ---
Pharmacy Intervention Comments: Home medication list verified using list from pharmacy and patient interview.
[2024-04-16 08:46] LABS: Magnesium 1.4 mg/dl (1.6-2.3)
[2024-04-16] MEDS: TIOTROPIUM 18MCG/PUFF INHALER 1 CAP IH (08:58)
[2024-04-16] MEDS: FLUTICASONE/SALMETEROL 250/50MCG DISKUS 1 PUFF IH ×2 (08:58→18:07)
[2024-04-16] MEDS: CALCIUM CARB + VIT D 500MG TAB 500 MG PO (09:04)
[2024-04-16] MEDS: AZITHROMYCIN 250MG TABLET 250 MG PO (09:04)
[2024-04-16] MEDS: ALPRAZolam 1MG TABLET 1 MG PO ×2 (09:04→20:10)
[2024-04-16] MEDS: DULOXETINE 30MG CAPSULE.DR 30 MG PO (09:05)
[2024-04-16] MEDS: ENOXAPARIN 40MG/0.4ML SYRINGE 40 MG SQ (09:05)
[2024-04-16] MEDS: predniSONE 20MG TAB 40 MG PO (09:06)
[2024-04-16] MEDS: POLYETHYLENE GLYCOL 3350 17 GM PACKET PO (09:06)
[2024-04-16] MEDS: GABAPENTIN 800MG TABLET 800 MG PO (09:17)
[2024-04-16] MEDS: 0.9 % SODIUM CHLORIDE 1000ML 500 ML IV (09:34)
--- NOTE | 2024-04-16 09:59 | EXP.PULM.CON ---
History of Present Illness History of present illness: Ms. Balbuena is a 69-year-old female greater than [id number] smoking history, severe COPD with FEV1 at 39% predicted, on triple inhaler therapy at baseline along with exertional hypoxia on nocturnal hypoxia last seen in pulmonary clinic April 2022 Presented to the ER with worsening respiratory distress and pulmonary was called for further evaluation and management. Patient admits weakness and fatigue. She denies any worsening respiratory distress, coughing/worsening wheezing. However patient noted to have wheezing and prolonged expiratory phase and ER examination [facility] Disclaimer: The information contained in this section may have been updated after the patient was seen, as this information can be updated by other users. Medical History (Updated 04/16/24 @ 11:00 by Srini Gan MD) COPD mixed type Lung nodule Hypokalemia Elevated troponin COPD (chronic obstructive pulmonary disease) Nocturnal hypoxemia Pulmonary emphysema Incidental pulmonary nodule, greater than or equal to 8mm Smoking greater than 30 pack years Dyspnea on exertion Tobacco abuse disorder Tobacco abuse counseling COPD (chronic obstructive pulmonary disease) Cervical cancer Surgical History History of dilation and curettage History of back surgery Family History Other Diabetes Social History Smoking Status: Current every day smoker tobacco type: cigarettes packs per day: 2 second hand exposure: Yes alcohol intake: current alcohol intake frequency: 0-2 drinks per day current occupational status: unemployed Travel in the last 8 weeks: None household members: spouse housing: house current occupational exposures/hazards: No Review of Systems Constitutional Constitutional: Reports anorexia, Reports body ache(s), Reports fatigue, Reports lethargy and Reports weakness Eyes Eyes: Denies eye discharge, Denies dry eyes, Denies irritation and Denies itchy eyes ENT Ears, Nose, Mouth, and Throat: Denies epistaxis, Denies facial pain, Denies lip swelling and Denies throat swelling *Cardiovascular Cardiovascular: Reports chest pain, Reports dyspnea and Reports dyspnea on exertion *Respiratory Respiratory: Denies change in phlegm color, Reports chest congestion, Reports cough, Reports dyspnea, Reports dyspnea on exertion, Denies excessive phlegm production and Denies wheezing *Gastrointestinal Gastrointestinal: Denies abdominal pain, Denies belching and Denies cramping *Musculoskeletal Musculoskeletal: Reports back pain, Reports myalgias and Reports other (No small joint swelling or Pain) *Neurologic Neurologic: Reports weakness Psychiatric Psychiatric: Denies homicidal ideation and Denies suicidal ideation Endocrine Endocrine: Reports fatigue and Denies heat intolerance Hematologic/Lymphatic Hematologic/Lymphatic: Denies easy bleeding and Denies lymphadenopathy Allergic/Immunologic Allergic/Immunologic: Denies itchy eyes, Denies lip swelling, Denies throat swelling and Denies wheezing Pulmonology Exam Inpatient Vital signs and Labs for Last 24 Hours: Temp Pulse Resp BP Pulse Ox O2 Del Method O2 Flow Rate 98.1 F 75 18 168/77 H 94 L Room Air 2 04/16/24 08:00 04/16/24 08:05 04/16/24 08:00 04/16/24 08:00 04/16/24 08:00 04/16/24 09:00 04/16/24 06:16 FiO2 28 04/16/24 00:10 Laboratory Results - last 24 hr 04/15/24 13:34: WBC 11.3 H, RBC 4.59, Hgb 15.2, Hct 46.7, MCV 101.7 H, MCH 33.2 H, MCHC 32.6, RDW 12.8, Plt Count 251, MPV 6.8 L, Neut % (Auto) 79.9, Lymph % (Auto) 15.1, [place] % (Auto) 2.4, Eos % (Auto) 2.0, Baso % (Auto) 0.7, Neut # (Auto) 9.0 H, Lymph # (Auto) 1.7, [place] # (Auto) 0.3, Eos # (Auto) 0.2, Baso # (Auto) 0.1, VBG pH 7.36, VBG pCO2 54.7 H, VBG pO2 30.2, VBG HCO3 30.0, VBG Total CO2 31.7 H, VBG O2 Saturation 60.0, VBG Base Excess 4.5 H, VBG Lactic Acid 1.5, Sodium 131 L, Potassium 3.3 L, Chloride 92 L, Carbon Dioxide 32 H, Anion Gap 10.3, BUN 13, Creatinine 0.80, Estimated Creat Clear 46, Estimated GFR 71, Est GFR ( Amer) 86, Glucose 95, Calcium 10.9 H, Total Bilirubin 1.1, AST 27, ALT 18, Alkaline Phosphatase 50, Troponin I 0.02, Total Protein 7.1, Albumin 4.2, Globulin 2.9, Albumin/Globulin Ratio 1.4, HIV 1&2 Antibody Rapid Nonreactive 04/15/24 14:00: Chlamy pneumoniae PCR Not detected, Adenovirus (PCR) Not detected, B. pertussis DNA (PCR) Not detected, Coronavirus OC43 (PCR) Not detected, Coronavirus HKU1 (PCR) Not detected, Coronavirus 229E (PCR) Not detected, SARS-CoV-2 (PCR) Not detected, Coronavirus NL63 (PCR) Not detected, Human Metapneumovir PCR Not detected, Influenza A (H1) PCR Not detected, Influ A (H1N1/09) PCR Not detected, Influenza A (H3) PCR Not detected, Influenza Type A (PCR) Not detected, Influenza Type B (PCR) Not detected, M. pneumoniae (PCR) Not detected, Parainfluenza 1 (PCR) Not detected, Parainfluenza 2 (PCR) Not detected, Parainfluenza 3 (PCR) Not detected, Parainfluenza 4 (PCR) Not detected, RSV (PCR) Not detected, Entero/Rhino (PCR) Not detected 04/15/24 16:52: Troponin I 0.02 04/15/24 20:00: Troponin I 0.02 04/16/24 05:08: Urine Color Yellow, Urine Appearance Clear, Urine pH 7.0, Ur Specific [place] 1.015, Urine Protein Negative, Urine Glucose (UA) Negative, Urine Ketones Negative, Urine Blood Negative, Urine Nitrate Negative, Urine Bilirubin Negative, Urine Urobilinogen 1.0, Ur Leukocyte Esterase Negative, Urine RBC None, Urine WBC Occasional, Ur Squamous Epith Cells 5-10, Urine Bacteria Trace 04/16/24 05:52: WBC 6.8 D, RBC 3.73 L, Hgb 12.8 D, Hct 37.5, MCV 100.5 H, MCH 33.7 H, MCHC 33.6, RDW 12.7, Plt Count 217, MPV 7.1 L, Neut % (Auto) 85.6 H, Lymph % (Auto) 11.2, [place] % (Auto) 2.6, Eos % (Auto) 0.5, Baso % (Auto) 0.0 L, Neut # (Auto) 5.8, Lymph # (Auto) 0.8, [place] # (Auto) 0.2, Eos # (Auto) 0.0, Baso # (Auto) 0.0, Total Counted 100, Neutrophils % (Manual) 89 H, Lymphocytes % (Manual) 11, Platelet Estimate Normal, RBC Morphology Not Reportable, Macrocytosis 1+, Sodium 129 L, Potassium 3.1 L, Chloride 93 L, Carbon Dioxide 32 H, Anion Gap 7.1, BUN 14, Creatinine 0.70, Estimated Creat Clear 45, Estimated GFR 83, Est GFR ( Amer) 100, Glucose 128 H D, Calcium 9.9, Magnesium 1.4 L I & O for Labs for Last 24 Hours: Intake & Output 04/13/24 04/14/24 04/15/24 04/16/24 23:59 23:59 23:59 23:59 Intake Total 0 120 320 / 320 Output Total Balance - 119 319 / 319 Weight 120 lb 118 lb 3.2 oz Constitutional: Present moderate distress Head: Present normocephalic and atraumatic ENT: Present normal exam, normal oropharynx and mucous membranes moist Neck: Present normal inspection and full ROM Respiratory: Present normal respiratory effort and able to speak in complete sentences; Absent prolonged expiratory phase, respiratory distress, wheezes or crackles Cardiac: Present S1/S2, Tachycardia and radial pulses present GI: Present soft and distention; Absent tenderness or guarding Rectal (female): Present deferred (female): Present deferred Skin: Present intact; Absent cyanosis or jaundice Neuro: Present alert, awake and oriented x 3 Extremities: Present normal inspection; Absent clubbing or cyanosis Psychiatric: Present normal affect and cooperative Meds Home Medications and Allergies Home Medications ?Medication ?Instructions ?Recorded ?Confirmed ?Type ipratropium 0.5 mg-albuterol 3 mg 3 ml inhalation QIDP PRN Shortness 07/03/21 04/15/24 History (2.5 mg base)/3 mL nebulization Of Breath soln fluticasone 250 mcg-salmeterol 50 1 inh inhalation BID COPD 04/19/22 04/15/24 History mcg/dose blistr powdr for inhalation (Advair Diskus) lisinopril 20 1 tab PO DAILY Hypertension 10/26/22 04/15/24 History mg-hydrochlorothiazide 25 mg tablet albuterol sulfate 90 mcg/actuation 2 inh inhalation NEEDED PRN SOA 04/15/24 04/15/24 History aerosol inhaler alprazolam 1 mg tablet 1 mg PO BID 04/15/24 04/15/24 History calcium carbonate 600 mg-vitamin 1 tab PO BID 04/15/24 04/15/24 History D3 5 mcg (200 unit) tablet celecoxib 50 mg capsule 50 mg PO DAILY 04/15/24 04/15/24 History cholecalciferol (vitamin D3) 1,250 1,250 mcg PO WEEKLY 04/15/24 04/15/24 History mcg (50,000 unit) capsule duloxetine 30 mg capsule,delayed 30 mg PO DAILY 04/15/24 04/15/24 History release gabapentin 800 mg tablet 800 mg PO DAILY 04/15/24 04/16/24 History hydrocodone 10 mg-acetaminophen 1 tab PO DAILY 04/15/24 04/16/24 History 325 mg tablet losartan 100 mg tablet 100 mg PO DAILY 04/15/24 04/16/24 History magnesium gluconate 27 mg 500 mg PO DAILY 04/15/24 04/15/24 History magnesium (500 mg) tablet montelukast 10 mg tablet 10 mg PO DAILY 04/15/24 04/15/24 History potassium chloride 20 mEq 40 meq PO BID 04/15/24 04/15/24 History tablet,extended release(part/cryst) prednisone 20 mg tablet 40 mg PO DAILY 04/15/24 04/15/24 History New Prescriptions to Start Prescriptions: Allergies Allergy/AdvReac Type Severity Reaction Status Date / Time No Known Allergies Allergy Verified 02/12/24 15:46 Results Laboratory Findings 04/16/24 05:52 04/16/24 05:52 Abnormal lab findings: Abnormal Labs 04/15/24 04/16/24 13:34 05:52 WBC 11.3 H RBC 3.73 L MCV 101.7 H 100.5 H MCH 33.2 H 33.7 H MPV 6.8 L 7.1 L Neut % (Auto) 85.6 H Baso % (Auto) 0.0 L Neut # (Auto) 9.0 H Neutrophils % (Manual) 89 H VBG pCO2 54.7 H VBG Total CO2 31.7 H VBG Base Excess 4.5 H Sodium 131 L 129 L Potassium 3.3 L 3.1 L Chloride 92 L 93 L Carbon Dioxide 32 H 32 H Glucose 128 H D Calcium 10.9 H Magnesium 1.4 L Assessment and Plan *Assessment and plan (1) Lung nodule: Status: Acute Category: Medical Code(s): R91.1 - Solitary pulmonary nodule (2) COPD mixed type: Status: Acute Category: Medical Code(s): J44.9 - Chronic obstructive pulmonary disease, unspecified (3) Tobacco abuse disorder: Status: Chronic Category: Medical Code(s): Z72.0 - Tobacco use (4) Acute exacerbation of chronic obstructive pulmonary disease: Status: Acute Category: Medical Code(s): J44.1 - Chronic obstructive pulmonary disease with (acute) exacerbation Plan Ms. Balbuena is a 69-year-old female greater than [id number] smoking history, severe COPD with FEV1 at 39% predicted, on triple inhaler therapy at baseline along with exertional hypoxia on nocturnal hypoxia last seen in pulmonary clinic April 2022 Presented to the ER with worsening respiratory distress and pulmonary was called for further evaluation and management. Patient admits weakness and fatigue. She denies any worsening respiratory distress, coughing/worsening wheezing. However patient noted to have wheezing and prolonged expiratory phase and ER examination CTA upon admission, no evidence of pulmonary embolism. Right upper lobe spiculated nodule stable from her CT from August 2021 however appeared stable in size at 17 mm but worsening from a groundglass to much more solid nodule from 2020. This nodule was previously known FGD avid on her PET scan from May 2021. No other dense consolidative/airspace changes noted. Neutrophilic predominant leukocytosis improving. No significant gas upon admission, mild hypercarbia with a pH of 7.36 and pCO2 54.7. Comprehensive respiratory viral PCR panel negative. Patient on admission was initiated on treatment for community-acquired pneumonia with ceftriaxone azithromycin DuoNebs steroids and inhaler therapies for presumed COPD exacerbation No significant wheezing noted on auscultation. On room air saturating 95%. Plan: Continue home inhalers including Advair and Spiriva No need for steroids at this point of time Doxycycline to complete a total of 3-day course Prednisone 40 mg daily to complete a total of 5-day course Continue oxygen supplementation at 2L NC with exertion and at night. No need for oxygen supplementation at rest. # Thank you for involving pulmonary in this patient care. Will continue to follow.
[2024-04-16] MEDS: GLYCERIN ADULT 3GM SUPP 3 GM RC (10:05)
[2024-04-16] MEDS: BELLADONNA ALKALOIDS 60 ML ML PO (11:32)
[2024-04-16] MEDS: AMLODIPINE 10MG TABLET 10 MG PO (12:02)
[2024-04-16] MEDS: GABAPENTIN 800 MG PO ×2 (13:58→20:10)
[2024-04-16] MEDS: MINERAL OIL ENEMA 133ML 133 ML RC (14:00)
--- NOTE | 2024-04-16 15:28 | PC.NURSE ---
1510: Pt. was given an enema. Pt. up to bathroom 45 min after enema with some stool results.
--- NOTE | 2024-04-16 15:31 | P.DS_ITS ---
General Admission date:: 04/15/24 HPI HPI HPI: Ms Iqra Balbuena is a 69 year old female with a medical history significant for COPD (on O2 but doesn't know how much) presented with worsening generalized weakness, SOB, and cough. She states it's been going on for 1 week, and that she's been wheezing more and has had to use her rescue inhaler more. Denies chest pain. Workup in the ED significant for WBC 11.3 and a relatively compensat ed VBG. She was given breathing treatments and steroids but patient continued to be dyspneic on 2L. Case was discussed with ED provider and decision was made to admit patient for acute on chronic hypoxic respiratory failure from AECOPD. Exam Data for Last 24 hours Vital signs and Labs for Last 24 Hours: Temp Pulse Resp BP Pulse Ox O2 Del Method O2 Flow Rate 98.7 F 96 H 19 149/81 H 91 L Nasal Cannula 1.5 04/16/24 12:00 04/16/24 12:00 04/16/24 12:00 04/16/24 12:00 04/16/24 12:00 04/16/24 15:00 04/16/24 15:00 FiO2 28 04/16/24 00:10 Laboratory Results - last 24 hr 04/15/24 14:00: Chlamy pneumoniae PCR Not detected, Adenovirus (PCR) Not detected, B. pertussis DNA (PCR) Not detected, Coronavirus OC43 (PCR) Not detected, Coronavirus HKU1 (PCR) Not detected, Coronavirus 229E (PCR) Not detected, SARS-CoV-2 (PCR) Not detected, Coronavirus NL63 (PCR) Not detected, Human Metapneumovir PCR Not detected, Influenza A (H1) PCR Not detected, Influ A (H1N1/09) PCR Not detected, Influenza A (H3) PCR Not detected, Influenza Type A (PCR) Not detected, Influenza Type B (PCR) Not detected, M. pneumoniae (PCR) Not detected, Parainfluenza 1 (PCR) Not detected, Parainfluenza 2 (PCR) Not detected, Parainfluenza 3 (PCR) Not detected, Parainfluenza 4 (PCR) Not detected, RSV (PCR) Not detected, Entero/Rhino (PCR) Not detected 04/15/24 16:52: Troponin I 0.02 04/15/24 20:00: Troponin I 0.02 04/16/24 05:08: Urine Color Yellow, Urine Appearance Clear, Urine pH 7.0, Ur Specific [place] 1.015, Urine Protein Negative, Urine Glucose (UA) Negative, Urine Ketones Negative, Urine Blood Negative, Urine Nitrate Negative, Urine Bilirubin Negative, Urine Urobilinogen 1.0, Ur Leukocyte Esterase Negative, Urine RBC None, Urine WBC Occasional, Ur Squamous Epith Cells 5-10, Urine Bacteria Trace 04/16/24 05:52: WBC 6.8 D, RBC 3.73 L, Hgb 12.8 D, Hct 37.5, MCV 100.5 H, MCH 33.7 H, MCHC 33.6, RDW 12.7, Plt Count 217, MPV 7.1 L, Neut % (Auto) 85.6 H, Lymph % (Auto) 11.2, [place] % (Auto) 2.6, Eos % (Auto) 0.5, Baso % (Auto) 0.0 L, Neut # (Auto) 5.8, Lymph # (Auto) 0.8, [place] # (Auto) 0.2, Eos # (Auto) 0.0, Baso # (Auto) 0.0, Total Counted 100, Neutrophils % (Manual) 89 H, Lymphocytes % (Manual) 11, Platelet Estimate Normal, RBC Morphology Not Reportable, Macrocytosis 1+, Sodium 129 L, Potassium 3.1 L, Chloride 93 L, Carbon Dioxide 32 H, Anion Gap 7.1, BUN 14, Creatinine 0.70, Estimated Creat Clear 45, Estimated GFR 83, Est GFR ( Amer) 100, Glucose 128 H D, Calcium 9.9, Magnesium 1.4 L I & O for Last 24 hours: Intake & Output 04/13/24 04/14/24 04/15/24 04/16/24 23:59 23:59 23:59 23:59 Intake Total 860 / 860 Output Total Balance - 859 / 859 Weight 54.431 kg 53.615 kg Microbiology Reports for the Last 24 Hours: Microbiology 04/15/24 13:58 Blood Blood Culture - Preliminary NO GROWTH AFTER 24 HOURS 04/15/24 13:58 Blood Blood Culture - Preliminary NO GROWTH AFTER 24 HOURS Results Data Completed and Pending Labs on day of discharge: Labs from last 24 hours 04/16/24 04/16/24 04/15/24 05:52 05:08 20:00 WBC 6.8 D RBC 3.73 L Hgb 12.8 D Hct 37.5 MCV 100.5 H MCH 33.7 H MCHC 33.6 RDW 12.7 Plt Count 217 MPV 7.1 L Neut % (Auto) 85.6 H Lymph % (Auto) 11.2 [place] % (Auto) 2.6 Eos % (Auto) 0.5 Baso % (Auto) 0.0 L Neut # (Auto) 5.8 Lymph # (Auto) 0.8 [place] # (Auto) 0.2 Eos # (Auto) 0.0 Baso # (Auto) 0.0 Total Counted 100 Neutrophils % (Manual) 89 H Lymphocytes % (Manual) 11 Platelet Estimate Normal RBC Morphology Not Reportable Macrocytosis 1+ Sodium 129 L Potassium 3.1 L Chloride 93 L Carbon Dioxide 32 H Anion Gap 7.1 BUN 14 Creatinine 0.70 Estimated Creat Clear 45 Estimated GFR 83 Est GFR ( Amer) 100 Glucose 128 H D Calcium 9.9 Magnesium 1.4 L Troponin I 0.02 Urine Color Yellow Urine Appearance Clear Urine pH 7.0 Ur Specific [place] 1.015 Urine Protein Negative Urine Glucose (UA) Negative Urine Ketones Negative Urine Blood Negative Urine Nitrate Negative Urine Bilirubin Negative Urine Urobilinogen 1.0 Ur Leukocyte Esterase Negative Urine RBC None Urine WBC Occasional Ur Squamous Epith Cells 5-10 Urine Bacteria Trace Chlamy pneumoniae PCR Adenovirus (PCR) B. pertussis DNA (PCR) Coronavirus OC43 (PCR) Coronavirus HKU1 (PCR) Coronavirus 229E (PCR) SARS-CoV-2 (PCR) Coronavirus NL63 (PCR) Human Metapneumovir PCR Influenza A (H1) PCR Influ A (H1N1/09) PCR Influenza A (H3) PCR Influenza Type A (PCR) Influenza Type B (PCR) M. pneumoniae (PCR) Parainfluenza 1 (PCR) Parainfluenza 2 (PCR) Parainfluenza 3 (PCR) Parainfluenza 4 (PCR) RSV (PCR) Entero/Rhino (PCR) 04/15/24 04/15/24 16:52 14:00 WBC RBC Hgb Hct MCV MCH MCHC RDW Plt Count MPV Neut % (Auto) Lymph % (Auto) [place] % (Auto) Eos % (Auto) Baso % (Auto) Neut # (Auto) Lymph # (Auto) [place] # (Auto) Eos # (Auto) Baso # (Auto) Total Counted Neutrophils % (Manual) Lymphocytes % (Manual) Platelet Estimate RBC Morphology Macrocytosis Sodium Potassium Chloride Carbon Dioxide Anion Gap BUN Creatinine Estimated Creat Clear Estimated GFR Est GFR ( Amer) Glucose Calcium Magnesium Troponin I 0.02 Urine Color Urine Appearance Urine pH Ur Specific [place] Urine Protein Urine Glucose (UA) Urine Ketones Urine Blood Urine Nitrate Urine Bilirubin Urine Urobilinogen Ur Leukocyte Esterase Urine RBC Urine WBC Ur Squamous Epith Cells Urine Bacteria Chlamy pneumoniae PCR Not detected Adenovirus (PCR) Not detected B. pertussis DNA (PCR) Not detected Coronavirus OC43 (PCR) Not detected Coronavirus HKU1 (PCR) Not detected Coronavirus 229E (PCR) Not detected SARS-CoV-2 (PCR) Not detected Coronavirus NL63 (PCR) Not detected Human Metapneumovir PCR Not detected Influenza A (H1) PCR Not detected Influ A (H1N1/09) PCR Not detected Influenza A (H3) PCR Not detected Influenza Type A (PCR) Not detected Influenza Type B (PCR) Not detected M. pneumoniae (PCR) Not detected Parainfluenza 1 (PCR) Not detected Parainfluenza 2 (PCR) Not detected Parainfluenza 3 (PCR) Not detected Parainfluenza 4 (PCR) Not detected RSV (PCR) Not detected Entero/Rhino (PCR) Not detected Preliminary micro results at discharge 04/15/24 13:58 Blood Culture - Preliminary Blood NO GROWTH AFTER 24 HOURS 04/15/24 13:58 Blood Culture - Preliminary Blood NO GROWTH AFTER 24 HOURS DS: Diagnosis Discharge Diagnosis (1) Lung nodule: Status: Acute Code(s): R91.1 - Solitary pulmonary nodule (2) COPD mixed type: Status: Acute Code(s): J44.9 - Chronic obstructive pulmonary disease, unspecified (3) Tobacco abuse disorder: Status: Chronic Code(s): Z72.0 - Tobacco use (4) Acute exacerbation of chronic obstructive pulmonary disease: Status: Acute Code(s): J44.1 - Chronic obstructive pulmonary disease with (acute) exacerbation Meds Home Medications and Allergies Home Medications ?Medication ?Instructions ?Recorded ?Confirmed ?Type ipratropium 0.5 mg-albuterol 3 mg 3 ml inhalation QIDP PRN Shortness 07/03/21 04/15/24 History (2.5 mg base)/3 mL nebulization Of Breath soln fluticasone 250 mcg-salmeterol 50 1 inh inhalation BID COPD 04/19/22 04/15/24 History mcg/dose blistr powdr for inhalation (Advair Diskus) lisinopril 20 1 tab PO DAILY Hypertension 10/26/22 04/15/24 History mg-hydrochlorothiazide 25 mg tablet albuterol sulfate 90 mcg/actuation 2 inh inhalation NEEDED PRN SOA 04/15/24 04/15/24 History aerosol inhaler alprazolam 1 mg tablet 1 mg PO BID 04/15/24 04/15/24 History calcium carbonate 600 mg-vitamin 1 tab PO BID 04/15/24 04/15/24 History D3 5 mcg (200 unit) tablet celecoxib 50 mg capsule 50 mg PO DAILY 04/15/24 04/15/24 History cholecalciferol (vitamin D3) 1,250 1,250 mcg PO WEEKLY 04/15/24 04/15/24 History mcg (50,000 unit) capsule duloxetine 30 mg capsule,delayed 30 mg PO DAILY 04/15/24 04/15/24 History release gabapentin 800 mg tablet 800 mg PO DAILY 04/15/24 04/16/24 History hydrocodone 10 mg-acetaminophen 1 tab PO DAILY 04/15/24 04/16/24 History 325 mg tablet losartan 100 mg tablet 100 mg PO DAILY 04/15/24 04/16/24 History magnesium gluconate 27 mg 500 mg PO DAILY 04/15/24 04/15/24 History magnesium (500 mg) tablet montelukast 10 mg tablet 10 mg PO DAILY 04/15/24 04/15/24 History potassium chloride 20 mEq 40 meq PO BID 04/15/24 04/15/24 History tablet,extended release(part/cryst) prednisone 20 mg tablet 40 mg PO DAILY 04/15/24 04/15/24 History New Prescriptions to Start Prescriptions: Allergies Allergy/AdvReac Type Severity Reaction Status Date / Time No Known Allergies Allergy Verified 02/12/24 15:46 Discharge Plan Disposition Condition: Fair Follow up Plan Prescriptions/Medication Reconciliation: No Action ipratropium-albuterol 0.5 mg-3 mg(2.5 mg base)/3 mL solution for nebulization 3 ml INHALATION QIDP PRN (Reason: Shortness Of Breath) lisinopril-hydrochlorothiazide 20-25 mg tablet 1 tab PO DAILY fluticasone propion-salmeterol [Advair Diskus] 250-50 mcg/dose blister with device 1 inh INHALATION BID alprazolam 1 mg tablet 1 mg PO BID prednisone 20 mg tablet 40 mg PO DAILY montelukast 10 mg tablet 10 mg PO DAILY losartan 100 mg tablet 100 mg PO DAILY celecoxib 50 mg capsule 50 mg PO DAILY duloxetine 30 mg capsule,delayed release(DR/EC) 30 mg PO DAILY calcium carbonate-vitamin D3 600 mg-5 mcg (200 unit) tablet 1 tab PO BID Rx Instructions: with meals hydrocodone-acetaminophen 10-325 mg tablet 1 tab PO DAILY gabapentin 800 mg tablet 800 mg PO DAILY magnesium gluconate 27 mg magnesium (500 mg) tablet 500 mg PO DAILY cholecalciferol (vitamin D3) 1,250 mcg (50,000 unit) capsule 1,250 mcg PO WEEKLY Rx Instructions: 1 capsule po weekly albuterol sulfate 90 mcg/actuation HFA aerosol inhaler 2 inh INHALATION NEEDED PRN (Reason: SOA) potassium chloride 20 mEq tablet,ER particles/crystals 40 meq PO BID Rx Instructions: with food Patient Discharge Instructions Patient Instructions: DI for Chronic Obstructive Pulmonary Disease Print Language: Wolof Providers Primary Care Provider: Stephanie Espinoza Provider: Tim Santa Attending Provider: Tim Santa
[2024-04-16] MEDS: PAT OWN MED ***MONTELUKAST SODIUM 10MG 10 MG PO (18:28)
--- NOTE | 2024-04-16 18:38 | PC.NURSE ---
183: Pt. alert and orientated x3. Pt.had a low potassium level today. Pt. given 3 doses PO potassium to replace potassium. Pt. also had Miralax, glycerine suppistiry, fleet enema to help with BM. Pt. had moderate results. Pt. was going to discharge homeafter BM but family hesitant about taking her home. Dr. Butt spoke at length with family. offered possible rehab but patient refuses. Family is open to home health /PT/OT if it could be arranged. Pt. staying one more night in hospital. vital signs stable. Pt. on home oxygen using off and on today. O2 1.5 liters. Family and patient are satisified with this arrangements.
[2024-04-16] MEDS: DOXYCYCLINE HYCL 100 MG TABLET PO (20:10)
[2024-04-16] MEDS: LOSARTAN 100 MG 100 EACH PO (20:10)
[2024-04-16] MEDS: CALCIUM PO (20:10)
[2024-04-16] MEDS: CHOLECALCIFEROL PO (20:10)
--- NOTE | 2024-04-16 21:31 | EXP.PN ---
Subjective *Date: 04/17/24 *Time: 07:23 Interval history: Patient states she feels well today, breathing has improved. However, family (sister, son) are concerned that patient continues to be very weak ongoing for more than a month now. We had a very lengthy and productive conversation about patient's overall health, progressive chronic conditions especially near end-stage COPD, and how these are contributing to patient's progressive decline over the past few months. They were understanding of this, but wanted the patient to stay 1 more night in the hospital. Patient declines any placement ideas. Exam Data for Last 24 hours Vital signs and Labs for Last 24 Hours: Temp Pulse Resp BP Pulse Ox O2 Del Method O2 Flow Rate 97.7 F 92 H 16 113/53 L 95 Nasal Cannula 1.5 04/16/24 20:00 04/16/24 20:00 04/16/24 20:00 04/16/24 20:00 04/16/24 20:00 04/16/24 20:00 04/16/24 15:00 FiO2 28 04/16/24 00:10 Laboratory Results - last 24 hr 04/16/24 05:08: Urine Color Yellow, Urine Appearance Clear, Urine pH 7.0, Ur Specific [place] 1.015, Urine Protein Negative, Urine Glucose (UA) Negative, Urine Ketones Negative, Urine Blood Negative, Urine Nitrate Negative, Urine Bilirubin Negative, Urine Urobilinogen 1.0, Ur Leukocyte Esterase Negative, Urine RBC None, Urine WBC Occasional, Ur Squamous Epith Cells 5-10, Urine Bacteria Trace 04/16/24 05:52: WBC 6.8 D, RBC 3.73 L, Hgb 12.8 D, Hct 37.5, MCV 100.5 H, MCH 33.7 H, MCHC 33.6, RDW 12.7, Plt Count 217, MPV 7.1 L, Neut % (Auto) 85.6 H, Lymph % (Auto) 11.2, [place] % (Auto) 2.6, Eos % (Auto) 0.5, Baso % (Auto) 0.0 L, Neut # (Auto) 5.8, Lymph # (Auto) 0.8, [place] # (Auto) 0.2, Eos # (Auto) 0.0, Baso # (Auto) 0.0, Total Counted 100, Neutrophils % (Manual) 89 H, Lymphocytes % (Manual) 11, Platelet Estimate Normal, RBC Morphology Not Reportable, Macrocytosis 1+, Sodium 129 L, Potassium 3.1 L, Chloride 93 L, Carbon Dioxide 32 H, Anion Gap 7.1, BUN 14, Creatinine 0.70, Estimated Creat Clear 45, Estimated GFR 83, Est GFR ( Amer) 100, Glucose 128 H D, Calcium 9.9, Magnesium 1.4 L I & O for Last 24 hours: Intake & Output 04/13/24 04/14/24 04/15/24 04/16/24 23:59 23:59 23:59 23:59 Intake Total 0 120 1085 / 1085 Output Total Balance - 1084 / 1084 Weight 54.431 kg 53.615 kg Microbiology Reports for the Last 24 Hours: Microbiology 04/15/24 13:58 Blood Blood Culture - Preliminary NO GROWTH AFTER 24 HOURS 04/15/24 13:58 Blood Blood Culture - Preliminary NO GROWTH AFTER 24 HOURS Constitutional Constitutional: no acute distress *Routine HEENT Exam Head: Present normocephalic Eye: Present EOMI and PERRL ENT: Present mucous membranes moist *Routine Neck Exam Neck: Present supple; Absent lymphadenopathy *Routine Respiratory Exam Respiratory: Present CTA bilaterally *Routine Cardiovascular Exam Cardiovascular: Present RRR *Routine Abdominal Exam Abdominal: Present soft and normoactive bowel sounds; Absent tenderness *Routine Extremities Exam Extremities: Absent cyanosis, clubbing or edema *Routine Skin Exam Skin: Present warm; Absent rash *Routine Neurological Exam Neurological: Present alert and oriented X3 Assessment and Plan *Assessment and plan (1) Hypoxic respiratory failure: Status: Acute Category: Medical Code(s): J96.91 - Respiratory failure, unspecified with hypoxia (2) Acute exacerbation of chronic obstructive pulmonary disease: Status: Acute Category: Medical Code(s): J44.1 - Chronic obstructive pulmonary disease with (acute) exacerbation Plan Ms Iqra Balbuena is a 69 year old female with a medical history significant for COPD (on O2 but doesn't know how much), hypertension, lumbar radiculopathy presented with worsening generalized weakness, SOB, and cough. She states it's been going on for 1 week, and that she's been wheezing more and has had to use her rescue inhaler more. Denies chest pain. Workup in the ED significant for WBC 11.3 and a relatively compensated VBG. She was given breathing treatments and steroids but patient continued to be dyspneic on 2L. Case was discussed with ED provider and decision was made to admit patient for acute on chronic hypoxic respiratory failure from AECOPD. #Physical deconditioning - Patient states she feels well today, breathing has improved. However, family (sister, son) are concerned that patient continues to be very weak ongoing for more than a month now and concerned about going home today. We had a very lengthy and productive conversation about patient's overall health, progressive chronic conditions especially near end-stage COPD, and how these are contributing to patient's progressive decline over the past few months. They were understanding of this, but wanted the patient to stay 1 more night in the hospital to be evaluated by physical therapy. Patient declines any placement ideas, but open to home health. ? PT OT consulted, pending recommendations. #Acute on chronic hypoxic respiratory failure #AECOPD #RUL pulmonary masses - Patient feels well today, no desaturations. - CT chest revealed two masses in the posterior right upper lobe which are stable but remain concerning for underlying neoplasia - Duonebs scheduled and PRN. - Pulmicort BID. - Steroids and azithromycin for 5 days. - Pulmonology reassured that these pulmonary masses are stable, and have been previously evaluated in the outpatient pulmonology clinic. #Fecal impaction #Stecoral colitis - Miralax daily. -Suppository and enema given yesterday. #Hypertension -Patient takes both losartan and lisinopril at home. Discontinue lisinopril. ? Continue losartan. - Started amlodipine 10 mg. Lovenox Full code
[2024-04-16] MEDS: MAGNESIUM SULFATE IN WATER 2 GM/50 ML PIGGYBACK IV (23:04)
--- NOTE | 2024-04-16 23:21 | PC.NURSE ---
2304 noted magnesium level this AM was 1.4 and in need of replacement per protocol. To receive Magnesium 2 gm/50 ml IV x 3 doses. First run initiated.
[2024-04-17] VITALS: BP 123/54; PULSE 93; RESP 16; TEMP 36.7; O2SAT 95
[2024-04-17] MEDS: MAGNESIUM SULFATE IN WATER 2 GM/50 ML PIGGYBACK IV ×2 (00:17→01:16)
[2024-04-17 00:45] VITALS: BMI 22.2
--- NOTE | 2024-04-17 03:52 | PC.NURSE ---
Patient assisted out of bed to BSC 2 assist. Very weak. Very unsteady. Unable to stand alone independently. Sister at bedside. Passed mod amt of soft formed brown stool in BSC but incontinent of urine per brief. Received 3 runs of magnesium per electrolyte protocol. Patient is A/O x 4. Pleasant and cooperative. 02 at 1lnc. Vital signs stable. Denies SOA, pain, or discomfort. Breath sounds diminished. No wheezes, Rhonchi, or crackles noted. HR regular. No Edema.
[2024-04-17 04:00] VITALS: BP 123/54; PULSE 86; PULSE 88; RESP 16; TEMP 36.7; O2SAT 95
[2024-04-17 06:25] LABS: HCV Ab Non Reactive (Non Reactive)
[2024-04-17] MEDS: FLUTICASONE/SALMETEROL 250/50MCG DISKUS 1 PUFF IH (06:29)
[2024-04-17] MEDS: TIOTROPIUM 18MCG/PUFF INHALER 1 CAP IH (06:29)
[2024-04-17 07:02] LABS: Basophils % 0.1 % (0.1-2.0); Eosinophils # 0.1 K/mm3 (0.0-0.4); Eosinophils % 0.5 % (0.1-12.0); Hematocrit 37.9 % (37.0-47.0); Hemoglobin 12.6 g/dL (12.2-16.2); Lymphocytes # 1.3 K/mm3 (0.7-4.5); Lymphocytes % 11.6 % (10-50); Mean Corpuscular HGB Conc 33.3 g/dL (31.8-35.4); Mean Corpuscular Hemoglobin 34.1 pg (27.0-31.2); Mean Corpuscular Volume 102.3 fl (81-99); Mean Platelet Volume 7.2 fl (7.4-10.4); Monocytes # 0.4 K/mm3 (0.1-1.0); Monocytes % 3.3 % (1.7-9.3); Neutrophils # 9.3 K/mm3 (1.8-7.8); Neutrophils % 84.5 % (37.0-80.0); Platelet Count 208 K/mm3 (142-424); Red Cell Distribution Width 12.8 % (11.5-17.5)
[2024-04-17 08:00] VITALS: BP 144/79; PULSE 90; PULSE 94; RESP 17; TEMP 36.4; O2SAT 94
[2024-04-17 08:12] LABS: Alanine Aminotransferase 25 U/L (12-78); Albumin Level 3.7 g/dl (3.5-5.0); Albumin/Globulin Ratio 1.5 (1.1-1.8); Alkaline Phosphatase 57 U/L (38-126); Aspartate Amino Transferase 34 U/L (14-36); Bilirubin,Total 0.4 mg/dl (0.2-1.3); Blood Urea Nitrogen 13 mg/dl (7-17); Calcium 10.1 mg/dl (8.4-10.2); Carbon Dioxide 30 mmol/L (22.0-30.0); Chloride 97 mmol/L (98-107); Creatinine Clearance Estimated 46 mL/min (50-200); Estimated Glomerular Filt Rate 83 ml/min (>60); GFR (African American) 100 ML/MIN (>60); Globulin 2.4 g/dL (1.3-3.2); Glucose 146 mg/dl (74-100); Sodium 129 mmol/L (136-145); Total Protein,Serum 6.1 g/dl (6.3-8.2)
[2024-04-17] MEDS: ENOXAPARIN 40MG/0.4ML SYRINGE 40 MG SQ (08:19)
[2024-04-17] MEDS: POLYETHYLENE GLYCOL 3350 17 GM PACKET PO (08:19)
[2024-04-17] MEDS: AMLODIPINE 10MG TABLET 10 MG PO (08:20)
[2024-04-17] MEDS: DOXYCYCLINE HYCL 100 MG TABLET PO (08:20)
[2024-04-17] MEDS: NIFEdipine XL 30MG TABLET 30 MG PO (08:20)
[2024-04-17] MEDS: DULOXETINE 30 MG PO (08:21)
[2024-04-17] MEDS: PREDNISONE 20 MG 40 MG PO (08:21)
[2024-04-17] MEDS: GABAPENTIN 800 MG PO ×2 (08:22→12:43)
[2024-04-17] MEDS: CALCIUM PO (08:22)
[2024-04-17] MEDS: CHOLECALCIFEROL PO (08:22)
[2024-04-17 08:28] LABS: Magnesium 2.9 mg/dl (1.6-2.3)
[2024-04-17] MEDS: ALPRAZolam 1MG TABLET 1 MG PO (08:30)
--- NOTE | 2024-04-17 08:57 | HMH.PTEV ---
Physical Therapy Evaluation Rehab PT IP Evaluation Start: 04/17/24 07:20 Freq: ONCE Status: Active Protocol: Document 04/17/24 08:46 CROW (Rec: 04/17/24 08:56 CROW [id number]) Subjective/History History History Per H&P: Ms Iqra Balbuena is a 69 year old female with a medical history significant for COPD (on O2 but doesn't know how much) presented with worsening generalized weakness , SOB, and cough. She states it's been going on for 1 week, and that she's been wheezing more and has had to use her rescue inhaler more. Denies chest pain. Workup in the ED significant for WBC 11.3 and a relatively compensated VBG. She was given breathing treatments and steroids but patient continued to be dyspneic on 2L. Case was discussed with ED provider and decision was made to admit patient for acute on chronic hypoxic respiratory failure from AECOPD. Subjective Subjective Pt reports she lives in a single-story/mobile home with 4-5 ELIGIO with HRs. Pt usually lives by herself but her son frequently stays with her ( unable to provide /). Pt was IND with mobility using a SPC. Pt was using supplemental O2 at night. Pt denies any falls in the past month. Pt has a sister who lived nearby. New diagnosis of cancer in past 12 No months? Rehab PT IP Eval Objective Appearance Patient Behavior Appropriate,Cooperative Patient Orientation Person,Situation Difficulty following instructions none Speech Pattern Clear Ambulation Patient Able to Ambulate Yes Ambulation Observation IP General Gait Pattern Observation Narrow Based Gait Ambulation Distance (feet) 20 Ambulation Assistive Device Rolling Walker Ambulation Ability Minimal x 1 (25% assist) Balance Ability to Arise Able, uses arms to help Sitting Balance Steady, safe Standing Balance Unsteady Transfers Bed Transfer Ability Supervision/Stand by Sit to Stand Bed Transfer Ability Minimal x 1 (25% assist) Rehab PT IP prob,goals,plan Problems Date of Evaluation: 04/17/24 PT IP Problems Transfers,Gait,Balance,Safety Rehab Potential Rehab Potential Good Equipment Needs Assistive Devices Rolling / Wheeled Walker Plan PT Intervention Plan Transfers,Gait,Balance,Safety, Therapeutic Exercise Other Intervention Plan 1-2 times PT Plan Frequency Daily Duration LOS Discharge Goals Bed Transfer Ability Independent Sit to Stand Chair Transfer Ability Supervision/Stand by Ambulation Assistive Device Rolling Walker Ambulation Distance (feet) 40 Discharge Plan PT Discharge Plan Initial physical therapy evaluation performed. Patient presents below baseline at this time in functional mobility, transfers, and strength. Pt not safe to return home at this time d/t current level of functional mobility and lack of 24/7 assistance. Pt was unsteady upon standing all 3 trials. Pt 's dynamic standing balance without UE support is poor and she would be a high fall risk . Pt required Min A when ambulating with RW to correct mild balance sway. PT recommending short-term rehabilitation stay upon d/c from [facility]. If pt unable to get rehab placement, pt may return home with RW for all mobility , 24/7 assistance when ambulating, and PT services . Pt would benefit from skilled PT while at [facility] to prevent further functional decline and maximize safety with mobility. Eval Complexity Eval Charge Codes 16311 - Moderate Complexity PHYSICIAN CERTIFICATION: I certify the specified therapy services for Iqra Balbuena are required, authorized, and reviewed every 30 days.
--- NOTE | 2024-04-17 09:26 | SW/DCPLANNER ---
Addendum entered by Tiana Sandhu 04/20/24 09:21: Patient is not interested in returning to [facility] for outpatient services. Patient stated that she is feeling much better at this time. Addendum entered by Tiana Sandhu 04/20/24 09:18: [facility] not able to accept this patient. I will call and update patient that I am not able to find accepting home health agency at this time. Addendum entered by Tiana Sandhu 04/17/24 14:43: [facility] is not able to accept patient. Addendum entered by [facility] 04/17/24 14:42: Due to insurance [facility] and [facility] are not able to accept referral. Patient information/order has been faxed to [facility]. Addendum entered by Tiana [place] 04/17/24 13:33: Patient information/order has been faxed to [facility]. Original Note: I spoke w/ this patient regarding plans once medically stable for discharge. PT/OT evaluated patient and recommended SNF level of care. Patient voiced that she is not interested in placement and will be returning home w/ her son. Patient's sister was present in the room at the time of our conversation. Patient is agreeable to home health services (no preference) at time of discharge. Patient stated that she will have transportation home once ready. I will set up home health services at time of discharge. Per MD patient will discharge home this afternoon.
--- NOTE | 2024-04-17 09:53 | EXP.PULM.PN ---
Subjective *Date: 04/17/24 *Time: 11:32 Interval history: Patient denies any new respiratory complaints. Pulmonology Exam Inpatient Vital signs and Labs for Last 24 Hours: Temp Pulse Resp BP Pulse Ox O2 Del Method O2 Flow Rate 97.6 F 94 H 17 144/79 H 94 L Nasal Cannula 1 04/17/24 08:00 04/17/24 08:00 04/17/24 08:00 04/17/24 08:00 04/17/24 08:00 04/17/24 09:00 04/17/24 09:00 FiO2 28 04/16/24 00:10 Laboratory Results - last 24 hr 04/15/24 13:34: Hepatitis C Antibody Non reactive 04/17/24 06:08: WBC 11.0 H D, RBC 3.70 L, Hgb 12.6, Hct 37.9, MCV 102.3 H, MCH 34.1 H, MCHC 33.3, RDW 12.8, Plt Count 208, MPV 7.2 L, Neut % (Auto) 84.5 H, Lymph % (Auto) 11.6, [place] % (Auto) 3.3, Eos % (Auto) 0.5, Baso % (Auto) 0.1, Neut # (Auto) 9.3 H, Lymph # (Auto) 1.3, [place] # (Auto) 0.4, Eos # (Auto) 0.1, Baso # (Auto) 0.0 04/17/24 07:40: Sodium 129 L, Potassium 4.0 D, Chloride 97 L, Carbon Dioxide 30, Anion Gap 6.0, BUN 13, Creatinine 0.70, Estimated Creat Clear 46, Estimated GFR 83, Est GFR ( Amer) 100, Glucose 146 H, Calcium 10.1, Magnesium 2.9 H D, Total Bilirubin 0.4, AST 34 D, ALT 25 D, Alkaline Phosphatase 57, Total Protein 6.1 L, Albumin 3.7, Globulin 2.4, Albumin/Globulin Ratio 1.5 Temp Pulse Resp BP Pulse Ox O2 Del Method O2 Flow Rate 98.1 F 75 18 168/77 H 94 L Room Air 2 04/16/24 08:00 04/16/24 08:05 04/16/24 08:00 04/16/24 08:00 04/16/24 08:00 04/16/24 09:00 04/16/24 06:16 FiO2 28 04/16/24 00:10 Laboratory Results - last 24 hr 04/15/24 13:34: WBC 11.3 H, RBC 4.59, Hgb 15.2, Hct 46.7, MCV 101.7 H, MCH 33.2 H, MCHC 32.6, RDW 12.8, Plt Count 251, MPV 6.8 L, Neut % (Auto) 79.9, Lymph % (Auto) 15.1, [place] % (Auto) 2.4, Eos % (Auto) 2.0, Baso % (Auto) 0.7, Neut # (Auto) 9.0 H, Lymph # (Auto) 1.7, [place] # (Auto) 0.3, Eos # (Auto) 0.2, Baso # (Auto) 0.1, VBG pH 7.36, VBG pCO2 54.7 H, VBG pO2 30.2, VBG HCO3 30.0, VBG Total CO2 31.7 H, VBG O2 Saturation 60.0, VBG Base Excess 4.5 H, VBG Lactic Acid 1.5, Sodium 131 L, Potassium 3.3 L, Chloride 92 L, Carbon Dioxide 32 H, Anion Gap 10.3, BUN 13, Creatinine 0.80, Estimated Creat Clear 46, Estimated GFR 71, Est GFR ( Amer) 86, Glucose 95, Calcium 10.9 H, Total Bilirubin 1.1, AST 27, ALT 18, Alkaline Phosphatase 50, Troponin I 0.02, Total Protein 7.1, Albumin 4.2, Globulin 2.9, Albumin/Globulin Ratio 1.4, HIV 1&2 Antibody Rapid Nonreactive 04/15/24 14:00: Chlamy pneumoniae PCR Not detected, Adenovirus (PCR) Not detected, B. pertussis DNA (PCR) Not detected, Coronavirus OC43 (PCR) Not detected, Coronavirus HKU1 (PCR) Not detected, Coronavirus 229E (PCR) Not detected, SARS-CoV-2 (PCR) Not detected, Coronavirus NL63 (PCR) Not detected, Human Metapneumovir PCR Not detected, Influenza A (H1) PCR Not detected, Influ A (H1N1/09) PCR Not detected, Influenza A (H3) PCR Not detected, Influenza Type A (PCR) Not detected, Influenza Type B (PCR) Not detected, M. pneumoniae (PCR) Not detected, Parainfluenza 1 (PCR) Not detected, Parainfluenza 2 (PCR) Not detected, Parainfluenza 3 (PCR) Not detected, Parainfluenza 4 (PCR) Not detected, RSV (PCR) Not detected, Entero/Rhino (PCR) Not detected 04/15/24 16:52: Troponin I 0.02 04/15/24 20:00: Troponin I 0.02 04/16/24 05:08: Urine Color Yellow, Urine Appearance Clear, Urine pH 7.0, Ur Specific [place] 1.015, Urine Protein Negative, Urine Glucose (UA) Negative, Urine Ketones Negative, Urine Blood Negative, Urine Nitrate Negative, Urine Bilirubin Negative, Urine Urobilinogen 1.0, Ur Leukocyte Esterase Negative, Urine RBC None, Urine WBC Occasional, Ur Squamous Epith Cells 5-10, Urine Bacteria Trace 04/16/24 05:52: WBC 6.8 D, RBC 3.73 L, Hgb 12.8 D, Hct 37.5, MCV 100.5 H, MCH 33.7 H, MCHC 33.6, RDW 12.7, Plt Count 217, MPV 7.1 L, Neut % (Auto) 85.6 H, Lymph % (Auto) 11.2, [place] % (Auto) 2.6, Eos % (Auto) 0.5, Baso % (Auto) 0.0 L, Neut # (Auto) 5.8, Lymph # (Auto) 0.8, [place] # (Auto) 0.2, Eos # (Auto) 0.0, Baso # (Auto) 0.0, Total Counted 100, Neutrophils % (Manual) 89 H, Lymphocytes % (Manual) 11, Platelet Estimate Normal, RBC Morphology Not Reportable, Macrocytosis 1+, Sodium 129 L, Potassium 3.1 L, Chloride 93 L, Carbon Dioxide 32 H, Anion Gap 7.1, BUN 14, Creatinine 0.70, Estimated Creat Clear 45, Estimated GFR 83, Est GFR ( Amer) 100, Glucose 128 H D, Calcium 9.9, Magnesium 1.4 L I & O for Labs for Last 24 Hours: Intake & Output 04/14/24 04/15/24 04/16/24 04/17/24 23:59 23:59 23:59 23:59 Intake Total 0 / 120 1085 / 1565 1270 / 1270 Output Total Balance - 1084 / 1564 1269 / 1269 Weight 120 lb 118 lb 3.2 oz 120 lb 12.8 oz Intake & Output 04/13/24 04/14/24 04/15/24 04/16/24 23:59 23:59 23:59 23:59 Intake Total 0 / 120 320 / 320 Output Total Balance - 319 / 319 Weight 120 lb 118 lb 3.2 oz Microbiology Reports for the Last 24 Hours: Microbiology 04/15/24 13:58 Blood Blood Culture - Preliminary NO GROWTH AFTER 24 HOURS 04/15/24 13:58 Blood Blood Culture - Preliminary NO GROWTH AFTER 24 HOURS Constitutional: Present moderate distress Head: Present normocephalic and atraumatic ENT: Present normal exam, normal oropharynx and mucous membranes moist Neck: Present normal inspection and full ROM Respiratory: Present normal respiratory effort and able to speak in complete sentences; Absent prolonged expiratory phase, respiratory distress, wheezes or crackles Cardiac: Present S1/S2, Tachycardia and radial pulses present GI: Present soft and distention; Absent tenderness or guarding Rectal (female): Present deferred (female): Present deferred Skin: Present intact; Absent cyanosis or jaundice Neuro: Present alert, awake and oriented x 3 Extremities: Present normal inspection; Absent clubbing or cyanosis Psychiatric: Present normal affect and cooperative Assessment and Plan *Assessment and plan (1) Lung nodule: Status: Acute Category: Medical Code(s): R91.1 - Solitary pulmonary nodule (2) COPD mixed type: Status: Acute Category: Medical Code(s): J44.9 - Chronic obstructive pulmonary disease, unspecified (3) Tobacco abuse disorder: Status: Chronic Category: Medical Code(s): Z72.0 - Tobacco use (4) Acute exacerbation of chronic obstructive pulmonary disease: Status: Acute Category: Medical Code(s): J44.1 - Chronic obstructive pulmonary disease with (acute) exacerbation Plan Ms. Balbuena is a 69-year-old female greater than [id number] smoking history, severe COPD with FEV1 at 39% predicted, on triple inhaler therapy at baseline along with exertional hypoxia on nocturnal hypoxia last seen in pulmonary clinic April 2022 Presented to the ER with worsening respiratory distress and pulmonary was called for further evaluation and management. Patient admits weakness and fatigue. She denies any worsening respiratory distress, coughing/worsening wheezing. However patient noted to have wheezing and prolonged expiratory phase and ER examination CTA upon admission, no evidence of pulmonary embolism. Right upper lobe spiculated nodule stable from her CT from August 2021 however appeared stable in size at 17 mm but worsening from a groundglass to much more solid nodule from 2020. This nodule was previously known FGD avid on her PET scan from May 2021. No other dense consolidative/airspace changes noted. Neutrophilic predominant leukocytosis improving. No significant gas upon admission, mild hypercarbia with a pH of 7.36 and pCO2 54.7. Comprehensive respiratory viral PCR panel negative. Patient on admission was initiated on treatment for community-acquired pneumonia with ceftriaxone azithromycin DuoNebs steroids and inhaler therapies for presumed COPD exacerbation On initial examination no significant wheezing noted on auscultation. On room air saturating 95%. Interval update: No acute respiratory vents overnight. Stable oxygen requirements. Weaned to room air again this morning with saturations maintained at 90% and above Venous blood gas did not show any evidence of hypoxic hypercarbic respiratory failure, performed on room air. Plan: Continue home inhalers including Advair and Spiriva No need for steroids at this point of time Doxycycline to complete a total of 3-day course Prednisone 40 mg daily to complete a total of 5-day course Continue oxygen supplementation at 2L NC with exertion and at night. No need for oxygen supplementation at rest. # Thank you for involving pulmonary in this patient care. Patient can be discharged from pulmonary standpoint. Will follow the patient in pulmonary clinic 2 to 4 weeks post discharge.
[2024-04-17 11:19] LABS: VBG Base Excess 1.7 mmol/L (-2.4-2.3); VBG HCO3 25.9 mmol/L (23-30); VBG Oxygen Saturation 97.3 % (50-70); VBG PCO2 39.4 mmol/L (35-51); VBG PH 7.44 mmol/L (7.31-7.41); VBG PO2 90.7 mmol/L (28-40); VBG Total CO2 27.1 mmol/L (23-27)
[2024-04-17 11:22] LABS: Lactate Venous 2.4 mmol/L (0.4-2.0)
[2024-04-17 12:00] VITALS: BP 137/71; PULSE 90; PULSE 92; RESP 18; TEMP 36.8; O2SAT 92
--- NOTE | 2024-04-17 12:30 | EXP.DC.SUM ---
General Admission date:: 04/15/24 Hospital Course Hospital Course Hospital Course: Ms Iqra Balbuena is a 69 year old female with a medical history significant for COPD (on O2 but doesn't know how much), hypertension, lumbar radiculopathy presented with worsening generalized weakness, SOB, and cough. She states it's been going on for 1 week, and that she's been wheezing more and has had to use her rescue inhaler more. Denies chest pain. Workup in the ED significant for WBC 11.3 and a relatively compensated VBG. She was given breathing treatments and steroids but patient continued to be dyspneic on 2L. Case was discussed with ED provider and decision was made to admit patient for acute on chronic hypoxic respiratory failure from AECOPD. #Physical deconditioning - Patient states she feels well today, breathing has improved. However, family (sister, son) are concerned that patient continues to be very weak ongoing for more than a month now and were initially concerned about going home today. We had a very lengthy and productive conversation about patient's overall health, progressive chronic conditions especially near end-stage COPD, and how these are contributing to patient's progressive decline over the past few months. They were understanding of this, and patient was set up with home health after PT/OT recommendations. #Acute on chronic hypoxic respiratory failure #AECOPD #RUL pulmonary masses - Patient feels well today, no desaturations. - CT chest revealed two masses in the posterior right upper lobe which are stable but remain concerning for underlying neoplasia . Stable, following pulmonology. - AECOPD improved with Duoneb, Pulmicort breathing treatments. Also given prednisone and azithromycin for 2 days. - Pulmonology consulted, did not recommend continuing prednisone as patient is at baseline. Recommended doxycyline for 3 more days. - Medically stable for discharge. Discharged with 3 more days of doxycycline. 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 -Enema given with several bowel movements. - Discharged with Miralax and glycerin suppositories as needed. #Hypertension -Patient takes both losartan and lisinopril at home. Discontinue lisinopril. ? Continue losartan. - Started amlodipine 10 mg given uncontrolled BP after discontinuine lisinopril. Exam Data for Last 24 hours Vital signs and Labs for Last 24 Hours: Temp Pulse Resp BP Pulse Ox O2 Del Method O2 Flow Rate 97.6 F 94 H 17 144/79 H 94 L Room Air 1 04/17/24 08:00 04/17/24 08:00 04/17/24 08:00 04/17/24 08:00 04/17/24 08:00 04/17/24 10:51 04/17/24 09:00 FiO2 28 04/16/24 00:10 Laboratory Results - last 24 hr 04/15/24 13:34: Hepatitis C Antibody Non reactive 04/17/24 06:08: WBC 11.0 H D, RBC 3.70 L, Hgb 12.6, Hct 37.9, MCV 102.3 H, MCH 34.1 H, MCHC 33.3, RDW 12.8, Plt Count 208, MPV 7.2 L, Neut % (Auto) 84.5 H, Lymph % (Auto) 11.6, [place] % (Auto) 3.3, Eos % (Auto) 0.5, Baso % (Auto) 0.1, Neut # (Auto) 9.3 H, Lymph # (Auto) 1.3, [place] # (Auto) 0.4, Eos # (Auto) 0.1, Baso # (Auto) 0.0 04/17/24 07:40: Sodium 129 L, Potassium 4.0 D, Chloride 97 L, Carbon Dioxide 30, Anion Gap 6.0, BUN 13, Creatinine 0.70, Estimated Creat Clear 46, Estimated GFR 83, Est GFR ( Amer) 100, Glucose 146 H, Calcium 10.1, Magnesium 2.9 H D, Total Bilirubin 0.4, AST 34 D, ALT 25 D, Alkaline Phosphatase 57, Total Protein 6.1 L, Albumin 3.7, Globulin 2.4, Albumin/Globulin Ratio 1.5 04/17/24 11:00: VBG pH 7.44 H, VBG pCO2 39.4, VBG pO2 90.7 H, VBG HCO3 25.9, VBG Total CO2 27.1 H, VBG O2 Saturation 97.3 H, VBG Base Excess 1.7, VBG Lactic Acid 2.4 H I & O for Last 24 hours: Intake & Output 04/14/24 04/15/24 04/16/24 04/17/24 23:59 23:59 23:59 23:59 Intake Total 0 / 120 1085 / 1565 1270 / 1270 Output Total Balance -1 1084 / 1564 1269 / 1269 Weight 54.431 kg 53.615 kg 54.794 kg Microbiology Reports for the Last 24 Hours: Microbiology 04/15/24 13:58 Blood Blood Culture - Preliminary NO GROWTH AFTER 24 HOURS 04/15/24 13:58 Blood Blood Culture - Preliminary NO GROWTH AFTER 24 HOURS Constitutional Constitutional: no acute distress *Routine HEENT Exam Head: Present normocephalic Eye: Present EOMI and PERRL ENT: Present mucous membranes moist *Routine Neck Exam Neck: Present supple; Absent lymphadenopathy *Routine Respiratory Exam Respiratory: Present CTA bilaterally *Routine Cardiovascular Exam Cardiovascular: Present RRR *Routine Abdominal Exam Abdominal: Present soft and normoactive bowel sounds; Absent tenderness *Routine Extremities Exam Extremities: Absent cyanosis, clubbing or edema *Routine Skin Exam Skin: Present warm; Absent rash *Routine Neurological Exam Neurological: Present alert and oriented X3 Results Data Completed and Pending Labs on day of discharge: Labs from last 24 hours 04/17/24 04/17/24 04/17/24 11:00 07:40 06:08 WBC 11.0 H D RBC 3.70 L Hgb 12.6 Hct 37.9 MCV 102.3 H MCH 34.1 H MCHC 33.3 RDW 12.8 Plt Count 208 MPV 7.2 L Neut % (Auto) 84.5 H Lymph % (Auto) 11.6 [place] % (Auto) 3.3 Eos % (Auto) 0.5 Baso % (Auto) 0.1 Neut # (Auto) 9.3 H Lymph # (Auto) 1.3 [place] # (Auto) 0.4 Eos # (Auto) 0.1 Baso # (Auto) 0.0 VBG pH 7.44 H VBG pCO2 39.4 VBG pO2 90.7 H VBG HCO3 25.9 VBG Total CO2 27.1 H VBG O2 Saturation 97.3 H VBG Base Excess 1.7 VBG Lactic Acid 2.4 H Sodium 129 L Potassium 4.0 D Chloride 97 L Carbon Dioxide 30 Anion Gap 6.0 BUN 13 Creatinine 0.70 Estimated Creat Clear 46 Estimated GFR 83 Est GFR ( Amer) 100 Glucose 146 H Calcium 10.1 Magnesium 2.9 H D Total Bilirubin 0.4 AST 34 D ALT 25 D Alkaline Phosphatase 57 Total Protein 6.1 L Albumin 3.7 Globulin 2.4 Albumin/Globulin Ratio 1.5 Hepatitis C Antibody 04/15/24 13:34 WBC RBC Hgb Hct MCV MCH MCHC RDW Plt Count MPV Neut % (Auto) Lymph % (Auto) [place] % (Auto) Eos % (Auto) Baso % (Auto) Neut # (Auto) Lymph # (Auto) [place] # (Auto) Eos # (Auto) Baso # (Auto) VBG pH VBG pCO2 VBG pO2 VBG HCO3 VBG Total CO2 VBG O2 Saturation VBG Base Excess VBG Lactic Acid Sodium Potassium Chloride Carbon Dioxide Anion Gap BUN Creatinine Estimated Creat Clear Estimated GFR Est GFR ( Amer) Glucose Calcium Magnesium Total Bilirubin AST ALT Alkaline Phosphatase Total Protein Albumin Globulin Albumin/Globulin Ratio Hepatitis C Antibody Non reactive Preliminary micro results at discharge 04/15/24 13:58 Blood Culture - Preliminary Blood NO GROWTH AFTER 24 HOURS 04/15/24 13:58 Blood Culture - Preliminary Blood NO GROWTH AFTER 24 HOURS DS: Diagnosis Discharge Diagnosis (1) Lung nodule: Status: Acute Code(s): R91.1 - Solitary pulmonary nodule (2) COPD mixed type: Status: Acute Code(s): J44.9 - Chronic obstructive pulmonary disease, unspecified (3) Tobacco abuse disorder: Status: Chronic Code(s): Z72.0 - Tobacco use (4) Acute exacerbation of chronic obstructive pulmonary disease: Status: Resolved Code(s): J44.1 - Chronic obstructive pulmonary disease with (acute) exacerbation Meds Home Medications and Allergies Home Medications ?Medication ?Instructions ?Recorded ?Confirmed ?Type ipratropium 0.5 mg-albuterol 3 mg 3 ml inhalation QIDP PRN Shortness 07/03/21 04/15/24 History (2.5 mg base)/3 mL nebulization Of Breath soln fluticasone 250 mcg-salmeterol 50 1 inh inhalation BID COPD 04/19/22 04/15/24 History mcg/dose blistr powdr for inhalation (Advair Diskus) albuterol sulfate 90 mcg/actuation 2 inh inhalation NEEDED PRN SOA 04/15/24 04/15/24 History aerosol inhaler alprazolam 1 mg tablet 1 mg PO BID 04/15/24 04/15/24 History calcium 600 mg (as 1 tab PO BID 04/15/24 04/15/24 History carbonate)-vitamin D3 5 mcg (200 unit) tablet celecoxib 50 mg capsule 50 mg PO DAILY 04/15/24 04/15/24 History cholecalciferol (vitamin D3) 1,250 1,250 mcg PO WEEKLY 04/15/24 04/15/24 History mcg (50,000 unit) capsule duloxetine 30 mg capsule,delayed 30 mg PO DAILY 04/15/24 04/15/24 History release gabapentin 800 mg tablet 800 mg PO DAILY 04/15/24 04/16/24 History hydrocodone 10 mg-acetaminophen 1 tab PO DAILY 04/15/24 04/16/24 History 325 mg tablet losartan 100 mg tablet 100 mg PO DAILY 04/15/24 04/16/24 History magnesium gluconate 27 mg 500 mg PO DAILY 04/15/24 04/15/24 History magnesium (500 mg) tablet montelukast 10 mg tablet 10 mg PO DAILY 04/15/24 04/15/24 History potassium chloride 20 mEq 40 meq PO BID 04/15/24 04/15/24 History tablet,extended release(part/cryst) amlodipine 10 mg tablet 10 mg PO DAILY #30 tabs 04/16/24 Rx doxycycline hyclate 100 mg tablet 100 mg PO BID 3 days #6 tabs 04/16/24 Rx glycerin (adult) (Fleet Glycerin 1 supp ME DAILY PRN constipation 04/16/24 Rx (Adult) rectal suppository) #12 ea polyethylene glycol 3350 17 gram 17 g PO DAILY #30 ea 04/16/24 Rx oral powder packet (HealthyLax) New Prescriptions to Start Prescriptions: amlodipine Sulaiman Butt doxycycline hyclate Sulaiman Butt glycerin (adult) [Fleet Glycerin (Adult)] Sulaiman Butt polyethylene glycol 3350 [HealthyLax] Sulaiman Butt Allergies Allergy/AdvReac Type Severity Reaction Status Date / Time No Known Allergies Allergy Verified 02/12/24 15:46 Discharge Plan Disposition Patient Disposition: Home, Self-Care Condition: Fair Follow up Plan Follow up with: Stephanie Espinoza APRN [Primary Care Provider] - 04/23/24 10:00 am Prescriptions/Medication Reconciliation: New amlodipine 10 mg Tablet 10 mg PO DAILY Qty: 30 0RF doxycycline hyclate 100 mg Tablet 100 mg PO BID 3 Days Qty: 6 0RF glycerin (adult) [Fleet Glycerin (Adult)] Suppository 1 supp ME DAILY PRN (Reason: constipation) Qty: 12 0RF polyethylene glycol 3350 [HealthyLax] 17 gram Powder In Packet 17 g PO DAILY Qty: 30 0RF Continued ipratropium-albuterol 0.5 mg-3 mg(2.5 mg base)/3 mL solution for nebulization 3 ml INHALATION QIDP PRN (Reason: Shortness Of Breath) fluticasone propion-salmeterol [Advair Diskus] 250-50 mcg/dose blister with device 1 inh INHALATION BID alprazolam 1 mg tablet 1 mg PO BID montelukast 10 mg tablet 10 mg PO DAILY losartan 100 mg tablet 100 mg PO DAILY celecoxib 50 mg capsule 50 mg PO DAILY duloxetine 30 mg capsule,delayed release(DR/EC) 30 mg PO DAILY calcium carbonate-vitamin D3 600 mg-5 mcg (200 unit) tablet 1 tab PO BID Rx Instructions: with meals hydrocodone-acetaminophen 10-325 mg tablet 1 tab PO DAILY gabapentin 800 mg tablet 800 mg PO DAILY magnesium gluconate 27 mg magnesium (500 mg) tablet 500 mg PO DAILY cholecalciferol (vitamin D3) 1,250 mcg (50,000 unit) capsule 1,250 mcg PO WEEKLY Rx Instructions: 1 capsule po weekly albuterol sulfate 90 mcg/actuation HFA aerosol inhaler 2 inh INHALATION NEEDED PRN (Reason: SOA) potassium chloride 20 mEq tablet,ER particles/crystals 40 meq PO BID Rx Instructions: with food Discontinued lisinopril-hydrochlorothiazide 20-25 mg tablet 1 tab PO DAILY prednisone 20 mg tablet 40 mg PO DAILY Other Ambulatory Orders: Home Medical Equipment (Routine) Location: None Selected Ordered By: Sulaiman Butt Problem Reconciliation Problems Reviewed?: Yes Patient Discharge Instructions ACTIVITY: Continue current activity DIET: continue same diet Additional Instructions: CAT scan of your abdomen showed severe constipation. Please take MiraLAX twice daily and glycerin suppository daily until you have a significant bowel movement. Patient Instructions: DI for Chronic Obstructive Pulmonary Disease Print Language: Palestinian Providers Primary Care Provider: Stephanie Espinoza Provider: Tim Santa Attending Provider: Tim Santa
[2024-04-17 15:23] LABS: Reflex Lactic Add Lactic Reflex
== END 2024-04-17 14:13 | disposition home or self-care (01) ==
LOC: ER 15:05 → 2ND 15:51
PROVIDERS: Internal Medicine Pulmonary Disease; Student in an Organized Health Care Education/Training Program; Admitting Provider Internal Medicine; Emergency Provider Emergency Medicine; PCP Nurse Practitioner; Visit Provider Internal Medicine
DX: J96.21 Acute and chronic respiratory failure with hypoxia (principal); J44.1 Chronic obstructive pulmonary disease with (acute) exacerbation; R91.1 Solitary pulmonary nodule; F17.210 Nicotine dependence, cigarettes, uncomplicated; M47.816 Spondylosis without myelopathy or radiculopathy, lumbar region; S32.020A Wedge compression fracture of second lumbar vertebra, initial encounter for closed fracture; Z99.81 Dependence on supplemental oxygen; I10 Essential (primary) hypertension; Z79.899 Other long term (current) drug therapy; K56.41 Fecal impaction; K52.89 Other specified noninfective gastroenteritis and colitis
CPT/HCPCS: 36415; 71275; 74176; 80048; 80053; 81001; 82803; 83735; 84484; 85007; 85025; 85027; 86803; 87040; 87265; 87389; 87486; 87581; 87632; 87635; 93005; 94640; 94760; 94761; 97162; 99291; G0378; J0456; J0696; J1650; J2919; J3475; J7030; J7050; J7120; J7613; J7620; Q9967

== ENCOUNTER 2024-05-01 11:36 | Emergency (ER) | payer MEDICARE, SELFPAY ==
[2024-05-01] VITALS (27 sets, daily range): BP systolic 116–143; BP diastolic 60–83; PULSE 67–114; RESP 18; TEMP 36.5–37.1; O2SAT 90–100; BMI 22.4
--- NOTE | 2024-05-01 12:02 | ECG_ITS ---
APPROVED REPORT Exam: Resting ECG HR:109 bpm ECG Measurements Heart Rate 109 AXES QRSd 93 QRS 257 QT 325 T 78 QTc 389 Conclusion ATRIAL FIBRILLATION WITH RAPID VENTRICULAR RESPONSE RIGHT AXIS DEVIATION [QRS AXIS > 100] SEPTAL MYOCARDIAL INFARCTION , PROBABLY OLD [40+ ms Q WAVE IN V1/V2] ABNORMAL ECG UNCONFIRMED REPORT Electronically signed by : JANICE BURROUGHS, 05/03/2024 06:09:49
--- NOTE | 2024-05-01 12:02 | [facility].EDGENADL ---
Discharge Plan Disposition Patient Disposition: Home, Self-Care Condition: Good Prescriptions Prescriptions: No Action ipratropium-albuterol 0.5 mg-3 mg(2.5 mg base)/3 mL solution for nebulization 3 ml INHALATION QIDP PRN (Reason: Shortness Of Breath) fluticasone propion-salmeterol [Advair Diskus] 250-50 mcg/dose blister with device 1 inh INHALATION BID alprazolam 1 mg tablet 1 mg PO BID montelukast 10 mg tablet 10 mg PO DAILY losartan 100 mg tablet 100 mg PO DAILY celecoxib 50 mg capsule 50 mg PO DAILY duloxetine 30 mg capsule,delayed release(DR/EC) 30 mg PO DAILY calcium carbonate-vitamin D3 600 mg-5 mcg (200 unit) tablet 1 tab PO BID Rx Instructions: with meals hydrocodone-acetaminophen 10-325 mg tablet 1 tab PO DAILY gabapentin 800 mg tablet 800 mg PO DAILY magnesium gluconate 27 mg magnesium (500 mg) tablet 500 mg PO DAILY cholecalciferol (vitamin D3) 1,250 mcg (50,000 unit) capsule 1,250 mcg PO WEEKLY Rx Instructions: 1 capsule po weekly albuterol sulfate 90 mcg/actuation HFA aerosol inhaler 2 inh INHALATION NEEDED PRN (Reason: SOA) potassium chloride 20 mEq tablet,ER particles/crystals 40 meq PO BID Rx Instructions: with food amlodipine 10 mg Tablet 10 mg PO DAILY Qty: 30 0RF doxycycline hyclate 100 mg Tablet 100 mg PO BID 3 Days Qty: 6 0RF glycerin (adult) [Fleet Glycerin (Adult)] Suppository 1 supp IN DAILY PRN (Reason: constipation) Qty: 12 0RF polyethylene glycol 3350 [HealthyLax] 17 gram Powder In Packet 17 g PO DAILY Qty: 30 0RF Referrals Follow up/Referrals: Stephanie Espinoza APRN [Primary Care Provider] - See instructions Activity Restrictions/Add. Instructions Additional Instructions/Restrictions: You were evaluated in the emergency department today. Please follow-up outpatient with pulmonology for assessment of your lung mass. Please also follow-up with oncology. The hospitalist is helping to set up home health PT/OT for you. Please proceed with physical therapy. Return to the emergency department for new or worsening symptoms. Clinical Impressions Clinical Impression: Lung mass, General weakness Instructions Patient Instructions: DI for Muscle Weakness Print Language Print Language: Burkinan Discharge ED Provider: Felicia Owen General Adult HPI <Baldev Tinajero MD - Last Filed: 05/01/24 18:39> General Chief complaint: Weakness Stated complaint: sent by Cecile Espinoza weakness, dizzy Time Seen by Provider: 05/01/24 12:01 Mode of Arrival: Wheelchair Source of Information: Patient Limitations: No Limitations Description of Symptoms (Recalled from ER Triage Doc. by RN): PT SENT BY PCP FOR GENERALIZED WEAKNESS. PT HAD RECENT HOSPITAL ADMISSION, DISCHARGED AND DOING WELL. REPORTS DECLINE IN STRENGTH X 3 DAYS. DENIES PAIN History of Present Illness HPI narrative: The patient presents with a chief complaint of generalized weakness and fatigue, particularly affecting her ability to walk. This has been ongoing for approximately 2 days. She reports a recent hospitalization about a month ago, during which she was found to have low potassium, calcium, and magnesium levels. She denies experiencing any pain, shortness of breath, or coughing up any secretions. She reports using oxygen at home but did not specify the amount. She also denies any recent falls, although she has a history of falls in the past. She describes the weakness as affecting both legs and denies feeling like she might pass out while walking. She attributes her difficulty walking to a lack of strength in her legs. She mentions living in a hotel room and states she can only walk so far before needing to rest. She reports being able to walk at home but with limitations. Please note that above description of symptoms, in this electronic medical record under categorization of recalled from ER triage doctor by RN are reflective of an initial nursing assessment, however, is not reflective of my full history and physical exam that was personally taken and clarified. Consequentially, this preceding description of symptoms, which may include the patient's categorized chief complaint in the EMR, do not reflect my personal clinical impression, and the ultimate description of history of present illness and patient stated complaints should be deferred to this section of the note. Unless stated otherwise or congruent with this section of the note, additional signs, symptoms, or incongruence should be interpreted as inaccurate with my clinical impression. Related Data Home Medications ?Medication ?Instructions ?Recorded ?Confirmed ipratropium 0.5 mg-albuterol 3 mg 3 ml inhalation QIDP PRN Shortness 07/03/21 04/15/24 (2.5 mg base)/3 mL nebulization Of Breath soln fluticasone 250 mcg-salmeterol 50 1 inh inhalation BID COPD 04/19/22 04/15/24 mcg/dose blistr powdr for inhalation (Advair Diskus) albuterol sulfate 90 mcg/actuation 2 inh inhalation NEEDED PRN SOA 04/15/24 04/15/24 aerosol inhaler alprazolam 1 mg tablet 1 mg PO BID 04/15/24 04/15/24 calcium 600 mg (as 1 tab PO BID 04/15/24 04/15/24 carbonate)-vitamin D3 5 mcg (200 unit) tablet celecoxib 50 mg capsule 50 mg PO DAILY 04/15/24 04/15/24 cholecalciferol (vitamin D3) 1,250 1,250 mcg PO WEEKLY 04/15/24 04/15/24 mcg (50,000 unit) capsule duloxetine 30 mg capsule,delayed 30 mg PO DAILY 04/15/24 04/15/24 release gabapentin 800 mg tablet 800 mg PO DAILY 04/15/24 04/16/24 hydrocodone 10 mg-acetaminophen 1 tab PO DAILY 04/15/24 04/16/24 325 mg tablet losartan 100 mg tablet 100 mg PO DAILY 04/15/24 04/16/24 magnesium gluconate 27 mg 500 mg PO DAILY 04/15/24 04/15/24 magnesium (500 mg) tablet montelukast 10 mg tablet 10 mg PO DAILY 04/15/24 04/15/24 potassium chloride 20 mEq 40 meq PO BID 04/15/24 04/15/24 tablet,extended release(part/cryst) Previous Rx's ?Medication ?Instructions ?Recorded amlodipine 10 mg tablet 10 mg PO DAILY #30 tabs 04/16/24 doxycycline hyclate 100 mg tablet 100 mg PO BID 3 days #6 tabs 04/16/24 glycerin (adult) (Fleet Glycerin 1 supp IN DAILY PRN constipation 04/16/24 (Adult) rectal suppository) #12 ea polyethylene glycol 3350 17 gram 17 g PO DAILY #30 ea 04/16/24 oral powder packet (HealthyLax) Allergies Allergy/AdvReac Type Severity Reaction Status Date / Time No Known Allergies Allergy Verified 02/12/24 15:46 [facility] <Baldev Tinajero MD - Last Filed: 05/01/24 18:39> [facility] Disclaimer: The information contained in this section may have been updated after the patient was seen, as this information can be updated by other users. Medical History (Updated 05/01/24 @ 18:29 by Felicia Owen DO) COPD mixed type Lung nodule Hypokalemia Elevated troponin COPD (chronic obstructive pulmonary disease) Nocturnal hypoxemia Pulmonary emphysema Incidental pulmonary nodule, greater than or equal to 8mm Smoking greater than 30 pack years Dyspnea on exertion Tobacco abuse disorder Tobacco abuse counseling COPD (chronic obstructive pulmonary disease) Cervical cancer Surgical History History of dilation and curettage History of back surgery Family History Other Diabetes Social History Smoking Status: Current every day smoker tobacco type: cigarettes packs per day: 2 second hand exposure: Yes alcohol intake: current alcohol intake frequency: 0-2 drinks per day current occupational status: unemployed Travel in the last 8 weeks: None household members: spouse housing: house current occupational exposures/hazards: No Other Medical History Have you received the Flu Vaccine for this season: No Have you received the Pneumonia Vaccine: No <Baldev Tinajero MD - Last Filed: 05/01/24 18:39> ROS Obtained: Yes other As per HPI Physical Exam <Baldev Tinajero MD - Last Filed: 05/01/24 18:39> General General appearance: alert Comment: Chronically ill-appearing Head Head exam: atraumatic and normocephalic Eye Eye exam: Present normal appearance Neck Neck exam: Present normal inspection Chest Chest inspection: Present normal inspection and symmetric chest wall rise Respiratory Respiratory exam: Present wheezes; Absent respiratory distress Cardiovascular Cardiovascular exam: Present regular rate and normal rhythm Abdominal Exam Abdominal exam: Present soft Neurological Exam Neurological exam: Present alert and oriented X3 Psychiatric Psychiatric exam: Present normal affect and normal mood Skin Skin exam: Present warm and dry Other Other exam information: Trace bilateral lower extremity edema Medical Decision Making <Baldev Tinajero MD - Last Filed: 05/01/24 18:39> Medical Records Medical records reviewed: Yes I reviewed the patient's medical records. Screening: Per USPSTF and CDC recommendations, given the prevalence of disease in our region, it is our hospital?s policy to screen for HIV and viral Hepatitis for all patients aged 18 and over and those with ongoing risk factors. Azael Inquiry Pt receiving controlled substance: No Vital Signs: 05/01/24 11:39 05/01/24 11:51 05/01/24 12:04 Temperature 97.7 F Temperature Source Oral Pulse Rate 114 H 80 Pulse Rate [Radial] 114 H Respiratory Rate 18 Blood Pressure 126/71 127/79 Blood Pressure [Right Arm] 126/71 Blood Pressure Mean [Right Arm] 89 Blood Pressure Source [Right Arm] Automatic Cuff Blood Pressure Position [Right Arm] Sitting 02 Sat by Pulse Oximetry 95 94 L 94 L Oxygen Delivery Method Room Air Oxygen Flow Rate (LPM) 05/01/24 12:15 05/01/24 12:30 05/01/24 12:45 Temperature Temperature Source Pulse Rate 104 H 106 H 102 H Pulse Rate [Radial] Respiratory Rate Blood Pressure 120/69 124/66 135/77 Blood Pressure [Right Arm] Blood Pressure Mean [Right Arm] Blood Pressure Source [Right Arm] Blood Pressure Position [Right Arm] 02 Sat by Pulse Oximetry 93 L 93 L 92 L Oxygen Delivery Method Room Air Oxygen Flow Rate (LPM) 05/01/24 13:00 05/01/24 13:15 05/01/24 13:30 Temperature Temperature Source Pulse Rate 100 H 105 H 107 H Pulse Rate [Radial] Respiratory Rate Blood Pressure 128/72 132/69 131/70 Blood Pressure [Right Arm] Blood Pressure Mean [Right Arm] Blood Pressure Source [Right Arm] Blood Pressure Position [Right Arm] 02 Sat by Pulse Oximetry 93 L 93 L 92 L Oxygen Delivery Method Room Air Room Air Oxygen Flow Rate (LPM) 05/01/24 14:00 05/01/24 14:15 05/01/24 14:30 Temperature Temperature Source Pulse Rate 67 97 H 101 H Pulse Rate [Radial] Respiratory Rate Blood Pressure 142/68 H 134/69 143/83 H Blood Pressure [Right Arm] Blood Pressure Mean [Right Arm] Blood Pressure Source [Right Arm] Blood Pressure Position [Right Arm] 02 Sat by Pulse Oximetry 92 L 91 L 90 L Oxygen Delivery Method Oxygen Flow Rate (LPM) 05/01/24 15:00 05/01/24 15:30 05/01/24 15:45 Temperature Temperature Source Pulse Rate 102 H 103 H 103 H Pulse Rate [Radial] Respiratory Rate Blood Pressure 133/69 128/74 128/71 Blood Pressure [Right Arm] Blood Pressure Mean [Right Arm] Blood Pressure Source [Right Arm] Blood Pressure Position [Right Arm] 02 Sat by Pulse Oximetry 92 L 93 L 92 L Oxygen Delivery Method Nasal Cannula Nasal Cannula Nasal Cannula Oxygen Flow Rate (LPM) 1 1 1 05/01/24 16:00 05/01/24 16:15 05/01/24 16:30 Temperature Temperature Source Pulse Rate 102 H 100 H 101 H Pulse Rate [Radial] Respiratory Rate Blood Pressure 129/75 128/72 126/71 Blood Pressure [Right Arm] Blood Pressure Mean [Right Arm] Blood Pressure Source [Right Arm] Blood Pressure Position [Right Arm] 02 Sat by Pulse Oximetry 93 L 95 94 L Oxygen Delivery Method Nasal Cannula Nasal Cannula Oxygen Flow Rate (LPM) 1 1 05/01/24 16:44 05/01/24 17:00 05/01/24 17:15 Temperature Temperature Source Pulse Rate 103 H 104 H 103 H Pulse Rate [Radial] Respiratory Rate Blood Pressure 140/78 127/60 121/63 Blood Pressure [Right Arm] Blood Pressure Mean [Right Arm] Blood Pressure Source [Right Arm] Blood Pressure Position [Right Arm] 02 Sat by Pulse Oximetry 93 L 94 L 96 Oxygen Delivery Method Nasal Cannula Room Air Room Air Oxygen Flow Rate (LPM) 1 05/01/24 17:30 05/01/24 17:55 05/01/24 18:00 Temperature Temperature Source Pulse Rate 103 H 109 H 104 H Pulse Rate [Radial] Respiratory Rate Blood Pressure 116/65 139/79 134/71 Blood Pressure [Right Arm] Blood Pressure Mean [Right Arm] Blood Pressure Source [Right Arm] Blood Pressure Position [Right Arm] 02 Sat by Pulse Oximetry 95 100 100 Oxygen Delivery Method Room Air Room Air Room Air Oxygen Flow Rate (LPM) 05/01/24 18:15 Temperature Temperature Source Pulse Rate 112 H Pulse Rate [Radial] Respiratory Rate Blood Pressure 133/78 Blood Pressure [Right Arm] Blood Pressure Mean [Right Arm] Blood Pressure Source [Right Arm] Blood Pressure Position [Right Arm] 02 Sat by Pulse Oximetry 96 Oxygen Delivery Method Room Air Oxygen Flow Rate (LPM) Lab Data Lab Results 05/01/24 11:58: WBC 9.8, RBC 3.65 L, Hgb 11.9 L, Hct 35.5 L, MCV 97.4, MCH 32.6 H, MCHC 33.5, RDW 12.7, Plt Count 254, MPV 8.0, Neut % (Auto) 71.1, Lymph % (Auto) 23.7, Archer % (Auto) 3.2, Eos % (Auto) 1.3, Baso % (Auto) 0.6, Neut # (Auto) 6.9, Lymph # (Auto) 2.3, Archer # (Auto) 0.3, Eos # (Auto) 0.1, Baso # (Auto) 0.1, Sodium 136, Potassium 3.7, Chloride 103, Carbon Dioxide 32 H, Anion Gap 4.7 L, BUN 11, Creatinine 0.80, Estimated Creat Clear 47, Estimated GFR 71, Est GFR ( Amer) 86, Glucose 98, Calcium 10.5 H, Magnesium 1.4 L, Total Bilirubin 0.5, AST 21, ALT 15, Alkaline Phosphatase 50, Troponin I < 0.01, Total Protein 6.0 L, Albumin 3.6, Globulin 2.4, Albumin/Globulin Ratio 1.5 05/01/24 14:10: VBG pH 7.33, VBG pCO2 58.0 H, VBG pO2 42.7 H, VBG HCO3 30.1 H, VBG Total CO2 31.9 H, VBG O2 Saturation 79.3 H, VBG Base Excess 4.2 H, VBG Lactic Acid 1.2 05/01/24 14:44: Lactate 1.0 05/01/24 15:58: Troponin I < 0.01 05/01/24 11:58 05/01/24 11:58 Orders (Tests/Meds): ED MEDICATIONS Generic Name Dose Route Start Last Admin Trade Name Freq PRN Reason Stop Dose Admin Sodium Chloride 3 ml 05/01/24 17:23 Sodium Chloride 3% 15ml Neb 05/31/24 17:22 ONCE PRN INDUCE SPUTUM COLLECTION Discontinued Medications Generic Name Dose Route Start Last Admin Trade Name Freq PRN Reason Stop Dose Admin Albuterol/Ipratropium 3 ml 05/01/24 14:11 05/01/24 14:26 Ipratropium/Albuterol 3 Ml Neb 05/01/24 14:12 3 ml ONCE ONE Administration Albuterol/Ipratropium 3 ml 05/01/24 17:26 05/01/24 17:47 Ipratropium/Albuterol 3 Ml Neb IH 05/01/24 17:27 3 ml ONCE ONE Administration Magnesium Sulfate 2 gm in 50 mls @ 50 mls/hr 05/01/24 14:09 05/01/24 14:26 Magnesium Sulfate 2gm/50ml Premix IV 05/01/24 15:08 50 mls/hr ONCE ONE Administration Levofloxacin/Dextrose 500 mg in 100 mls @ 100 mls/hr 05/01/24 17:25 05/01/24 17:47 Levaquin 500mg/100ml Premix IV 05/01/24 18:24 100 mls/hr ONCE ONE Administration Iopamidol 70 ml 05/01/24 14:48 05/01/24 14:49 Iopamidol-370 (76%);100ml Bottle IV 05/01/24 14:49 70 ml ONCE ONE Administration Methylprednisolone Sodium Succinate 60 mg 05/01/24 14:11 05/01/24 14:26 Methylprednisolone Sod Succ 125mg Vial IV 05/01/24 14:12 60 mg ONCE ONE Administration Sodium Chloride 10 ml 05/01/24 14:48 05/01/24 14:49 Sodium Chloride 0.9% 10ml Syr (Rad Only) IV 05/01/24 14:49 10 ml ONCE ONE Administration Sodium Chloride 50 ml 05/01/24 14:48 05/01/24 14:49 0.9 % Sodium Chloride 50 Ml Vial IV 05/01/24 14:49 50 ml ONCE ONE Administration ORDERS Category Date Time Status CTA Chest [CT angio chest PE protocol] Stat Cat Scan 05/01/24 14:11 Completed XR chest 2V Stat Exams 05/01/24 13:22 Completed Complete Blood Count Auto Diff Stat Lab 05/01/24 11:58 Completed Comprehensive Metabolic Panel Stat Lab 05/01/24 11:58 Completed Lactate Venous Stat Lab 05/01/24 15:03 Ordered Lactic Acid Stat Lab 05/01/24 14:44 Completed MAG [Magnesium] Stat Lab 05/01/24 11:58 Completed Trop I [Troponin I] Stat Lab 05/01/24 11:58 Completed Troponin I Q3H Lab 05/01/24 15:58 Completed Troponin I Q3H Lab 05/01/24 18:45 Ordered Sputum Culture & Gram Stain Stat Micro 05/01/24 17:23 Ordered VBG [Venous Blood Gas] Stat RT 05/01/24 14:10 Completed Medical Decision Narrative: Patient with history and exam per above presenting for evaluation of shortness of breath, generalized weakness Diagnoses considered include electrolyte abnormality, COPD exacerbation, deconditioning, CHF, among others ED workup and treatment included: ED MEDICATIONS Generic Name Dose Route Start Last Admin Trade Name Freq PRN Reason Stop Dose Admin Levofloxacin/Dextrose 500 mg in 100 mls @ 100 mls/hr 05/01/24 17:25 05/01/24 17:47 Levaquin 500mg/100ml Premix IV 05/01/24 18:24 100 mls/hr ONCE ONE Administration Sodium Chloride 3 ml 05/01/24 17:23 Sodium Chloride 3% 15ml [facility] 05/31/24 17:22 ONCE PRN INDUCE SPUTUM COLLECTION Discontinued Medications Generic Name Dose Route Start Last Admin Trade Name Freq PRN Reason Stop Dose Admin Albuterol/Ipratropium 3 ml 05/01/24 14:11 05/01/24 14:26 Ipratropium/Albuterol 3 Ml [facility] 05/01/24 14:12 3 ml ONCE ONE Administration Albuterol/Ipratropium 3 ml 05/01/24 17:26 05/01/24 17:47 Ipratropium/Albuterol 3 Ml [facility] 05/01/24 17:27 3 ml ONCE ONE Administration Magnesium Sulfate 2 gm in 50 mls @ 50 mls/hr 05/01/24 14:09 05/01/24 14:26 Magnesium Sulfate 2gm/50ml Premix IV 05/01/24 15:08 50 mls/hr ONCE ONE Administration Iopamidol 70 ml 05/01/24 14:48 05/01/24 14:49 Iopamidol-370 (76%);100ml Bottle IV 05/01/24 14:49 70 ml ONCE ONE Administration Methylprednisolone Sodium Succinate 60 mg 05/01/24 14:11 05/01/24 14:26 Methylprednisolone Sod Succ 125mg Vial IV 05/01/24 14:12 60 mg ONCE ONE Administration Sodium Chloride 10 ml 05/01/24 14:48 05/01/24 14:49 Sodium Chloride 0.9% 10ml Syr (Rad Only) IV 05/01/24 14:49 10 ml ONCE ONE Administration Sodium Chloride 50 ml 05/01/24 14:48 05/01/24 14:49 0.9 % Sodium Chloride 50 Ml Vial IV 05/01/24 14:49 50 ml ONCE ONE Administration ORDERS Category Date Time Status CTA Chest [CT angio chest PE protocol] Stat Cat Scan 05/01/24 14:11 Completed XR chest 2V Stat Exams 05/01/24 13:22 Completed Complete Blood Count Auto Diff Stat Lab 05/01/24 11:58 Completed Comprehensive Metabolic Panel Stat Lab 05/01/24 11:58 Completed Lactate Venous Stat Lab 05/01/24 15:03 Ordered Lactic Acid Stat Lab 05/01/24 14:44 Completed MAG [Magnesium] Stat Lab 05/01/24 11:58 Completed Trop I [Troponin I] Stat Lab 05/01/24 11:58 Completed Troponin I Q3H Lab 05/01/24 15:58 Completed Troponin I Q3H Lab 05/01/24 18:45 Ordered Sputum Culture & Gram Stain Stat Micro 05/01/24 17:23 Ordered VBG [Venous Blood Gas] Stat RT 05/01/24 14:10 Completed Labs were independently interpreted by me, significant for no leukocytosis, chronic compensated respiratory acidosis, magnesium 1.4 Imaging was independently visualized and interpreted by me, significant for no acute consolidative process. Please refer to radiology report for full details. My clinical impression at this time is most consistent with deconditioning in the setting of multiple comorbidities including COPD. I discussed the case with hospitalist for evaluation for admission. Patient will be evaluated for admission. Care was transferred to incoming physician <Felicia Owen, DO - Last Filed: 05/01/24 18:46> Vital Signs: 05/01/24 11:39 05/01/24 11:51 05/01/24 12:04 Temperature 97.7 F Temperature Source Oral Pulse Rate 114 H 80 Pulse Rate [Radial] 114 H Respiratory Rate 18 Blood Pressure 126/71 127/79 Blood Pressure [Right Arm] 126/71 Blood Pressure Mean [Right Arm] 89 Blood Pressure Source [Right Arm] Automatic Cuff Blood Pressure Position [Right Arm] Sitting 02 Sat by Pulse Oximetry 95 94 L 94 L Oxygen Delivery Method Room Air Oxygen Flow Rate (LPM) 05/01/24 12:15 05/01/24 12:30 05/01/24 12:45 Temperature Temperature Source Pulse Rate 104 H 106 H 102 H Pulse Rate [Radial] Respiratory Rate Blood Pressure 120/69 124/66 135/77 Blood Pressure [Right Arm] Blood Pressure Mean [Right Arm] Blood Pressure Source [Right Arm] Blood Pressure Position [Right Arm] 02 Sat by Pulse Oximetry 93 L 93 L 92 L Oxygen Delivery Method Room Air Oxygen Flow Rate (LPM) 05/01/24 13:00 05/01/24 13:15 05/01/24 13:30 Temperature Temperature Source Pulse Rate 100 H 105 H 107 H Pulse Rate [Radial] Respiratory Rate Blood Pressure 128/72 132/69 131/70 Blood Pressure [Right Arm] Blood Pressure Mean [Right Arm] Blood Pressure Source [Right Arm] Blood Pressure Position [Right Arm] 02 Sat by Pulse Oximetry 93 L 93 L 92 L Oxygen Delivery Method Room Air Room Air Oxygen Flow Rate (LPM) 05/01/24 14:00 05/01/24 14:15 05/01/24 14:30 Temperature Temperature Source Pulse Rate 67 97 H 101 H Pulse Rate [Radial] Respiratory Rate Blood Pressure 142/68 H 134/69 143/83 H Blood Pressure [Right Arm] Blood Pressure Mean [Right Arm] Blood Pressure Source [Right Arm] Blood Pressure Position [Right Arm] 02 Sat by Pulse Oximetry 92 L 91 L 90 L Oxygen Delivery Method Oxygen Flow Rate (LPM) 05/01/24 15:00 05/01/24 15:30 05/01/24 15:45 Temperature Temperature Source Pulse Rate 102 H 103 H 103 H Pulse Rate [Radial] Respiratory Rate Blood Pressure 133/69 128/74 128/71 Blood Pressure [Right Arm] Blood Pressure Mean [Right Arm] Blood Pressure Source [Right Arm] Blood Pressure Position [Right Arm] 02 Sat by Pulse Oximetry 92 L 93 L 92 L Oxygen Delivery Method Nasal Cannula Nasal Cannula Nasal Cannula Oxygen Flow Rate (LPM) 1 1 1 05/01/24 16:00 05/01/24 16:15 05/01/24 16:30 Temperature Temperature Source Pulse Rate 102 H 100 H 101 H Pulse Rate [Radial] Respiratory Rate Blood Pressure 129/75 128/72 126/71 Blood Pressure [Right Arm] Blood Pressure Mean [Right Arm] Blood Pressure Source [Right Arm] Blood Pressure Position [Right Arm] 02 Sat by Pulse Oximetry 93 L 95 94 L Oxygen Delivery Method Nasal Cannula Nasal Cannula Oxygen Flow Rate (LPM) 1 1 05/01/24 16:44 05/01/24 17:00 05/01/24 17:15 Temperature Temperature Source Pulse Rate 103 H 104 H 103 H Pulse Rate [Radial] Respiratory Rate Blood Pressure 140/78 127/60 121/63 Blood Pressure [Right Arm] Blood Pressure Mean [Right Arm] Blood Pressure Source [Right Arm] Blood Pressure Position [Right Arm] 02 Sat by Pulse Oximetry 93 L 94 L 96 Oxygen Delivery Method Nasal Cannula Room Air Room Air Oxygen Flow Rate (LPM) 1 05/01/24 17:30 05/01/24 17:55 05/01/24 18:00 Temperature Temperature Source Pulse Rate 103 H 109 H 104 H Pulse Rate [Radial] Respiratory Rate Blood Pressure 116/65 139/79 134/71 Blood Pressure [Right Arm] Blood Pressure Mean [Right Arm] Blood Pressure Source [Right Arm] Blood Pressure Position [Right Arm] 02 Sat by Pulse Oximetry 95 100 100 Oxygen Delivery Method Room Air Room Air Room Air Oxygen Flow Rate (LPM) 05/01/24 18:15 Temperature Temperature Source Pulse Rate 112 H Pulse Rate [Radial] Respiratory Rate Blood Pressure 133/78 Blood Pressure [Right Arm] Blood Pressure Mean [Right Arm] Blood Pressure Source [Right Arm] Blood Pressure Position [Right Arm] 02 Sat by Pulse Oximetry 96 Oxygen Delivery Method Room Air Oxygen Flow Rate (LPM) Lab Data Lab Results 05/01/24 11:58: WBC 9.8, RBC 3.65 L, Hgb 11.9 L, Hct 35.5 L, MCV 97.4, MCH 32.6 H, MCHC 33.5, RDW 12.7, Plt Count 254, MPV 8.0, Neut % (Auto) 71.1, Lymph % (Auto) 23.7, Archer % (Auto) 3.2, Eos % (Auto) 1.3, Baso % (Auto) 0.6, Neut # (Auto) 6.9, Lymph # (Auto) 2.3, Archer # (Auto) 0.3, Eos # (Auto) 0.1, Baso # (Auto) 0.1, Sodium 136, Potassium 3.7, Chloride 103, Carbon Dioxide 32 H, Anion Gap 4.7 L, BUN 11, Creatinine 0.80, Estimated Creat Clear 47, Estimated GFR 71, Est GFR ( Amer) 86, Glucose 98, Calcium 10.5 H, Magnesium 1.4 L, Total Bilirubin 0.5, AST 21, ALT 15, Alkaline Phosphatase 50, Troponin I < 0.01, Total Protein 6.0 L, Albumin 3.6, Globulin 2.4, Albumin/Globulin Ratio 1.5 05/01/24 14:10: VBG pH 7.33, VBG pCO2 58.0 H, VBG pO2 42.7 H, VBG HCO3 30.1 H, VBG Total CO2 31.9 H, VBG O2 Saturation 79.3 H, VBG Base Excess 4.2 H, VBG Lactic Acid 1.2 05/01/24 14:44: Lactate 1.0 05/01/24 15:58: Troponin I < 0.01 Orders (Tests/Meds): ED MEDICATIONS Generic Name Dose Route Start Last Admin Trade Name Freq PRN Reason Stop Dose Admin Sodium Chloride 3 ml 05/01/24 17:23 Sodium Chloride 3% 15ml Neb IH 05/31/24 17:22 ONCE PRN INDUCE SPUTUM COLLECTION Discontinued Medications Generic Name Dose Route Start Last Admin Trade Name Freq PRN Reason Stop Dose Admin Albuterol/Ipratropium 3 ml 05/01/24 14:11 05/01/24 14:26 Ipratropium/Albuterol 3 Ml Neb IH 05/01/24 14:12 3 ml ONCE ONE Administration Albuterol/Ipratropium 3 ml 05/01/24 17:26 05/01/24 17:47 Ipratropium/Albuterol 3 Ml Neb IH 05/01/24 17:27 3 ml ONCE ONE Administration Magnesium Sulfate 2 gm in 50 mls @ 50 mls/hr 05/01/24 14:09 05/01/24 14:26 Magnesium Sulfate 2gm/50ml Premix IV 05/01/24 15:08 50 mls/hr ONCE ONE Administration Levofloxacin/Dextrose 500 mg in 100 mls @ 100 mls/hr 05/01/24 17:25 05/01/24 17:47 Levaquin 500mg/100ml Premix IV 05/01/24 18:24 100 mls/hr ONCE ONE Administration Iopamidol 70 ml 05/01/24 14:48 05/01/24 14:49 Iopamidol-370 (76%);100ml Bottle IV 05/01/24 14:49 70 ml ONCE ONE Administration Methylprednisolone Sodium Succinate 60 mg 10/18/24 14:11 05/01/24 14:26 Methylprednisolone Sod Succ 125mg Vial IV 05/01/24 14:12 60 mg ONCE ONE Administration Sodium Chloride 10 ml 05/01/24 14:48 05/01/24 14:49 Sodium Chloride 0.9% 10ml Syr (Rad Only) IV 05/01/24 14:49 10 ml ONCE ONE Administration Sodium Chloride 50 ml 05/01/24 14:48 05/01/24 14:49 0.9 % Sodium Chloride 50 Ml Vial IV 05/01/24 14:49 50 ml ONCE ONE Administration ORDERS Category Date Time Status CTA Chest [CT angio chest PE protocol] Stat Cat Scan 05/01/24 14:11 Completed XR chest 2V Stat Exams 05/01/24 13:22 Completed Complete Blood Count Auto Diff Stat Lab 05/01/24 11:58 Completed Comprehensive Metabolic Panel Stat Lab 05/01/24 11:58 Completed Lactate Venous Stat Lab 05/01/24 15:03 Ordered Lactic Acid Stat Lab 05/01/24 14:44 Completed MAG [Magnesium] Stat Lab 05/01/24 11:58 Completed Trop I [Troponin I] Stat Lab 05/01/24 11:58 Completed Troponin I Q3H Lab 05/01/24 15:58 Completed Troponin I Q3H Lab 05/01/24 18:45 Ordered Sputum Culture & Gram Stain Stat Micro 05/01/24 17:23 Ordered VBG [Venous Blood Gas] Stat RT 05/01/24 14:10 Completed Medical Decision Narrative: Patient with history and exam per above presenting for evaluation of shortness of breath, generalized weakness Diagnoses considered include electrolyte abnormality, COPD exacerbation, deconditioning, CHF, among others ED workup and treatment included: ED MEDICATIONS Generic Name Dose Route Start Last Admin Trade Name Freq PRN Reason Stop Dose Admin Levofloxacin/Dextrose 500 mg in 100 mls @ 100 mls/hr 05/01/24 17:25 05/01/24 17:47 Levaquin 500mg/100ml Premix IV 05/01/24 18:24 100 mls/hr ONCE ONE Administration Sodium Chloride 3 ml 05/01/24 17:23 Sodium Chloride 3% 15ml Neb IH 05/31/24 17:22 ONCE PRN INDUCE SPUTUM COLLECTION Discontinued Medications Generic Name Dose Route Start Last Admin Trade Name Freq PRN Reason Stop Dose Admin Albuterol/Ipratropium 3 ml 05/01/24 14:11 05/01/24 14:26 Ipratropium/Albuterol 3 Ml Neb IH 05/01/24 14:12 3 ml ONCE ONE Administration Albuterol/Ipratropium 3 ml 05/01/24 17:26 05/01/24 17:47 Ipratropium/Albuterol 3 Ml Neb IH 05/01/24 17:27 3 ml ONCE ONE Administration Magnesium Sulfate 2 gm in 50 mls @ 50 mls/hr 05/01/24 14:09 05/01/24 14:26 Magnesium Sulfate 2gm/50ml Premix IV 05/01/24 15:08 50 mls/hr ONCE ONE Administration Iopamidol 70 ml 05/01/24 14:48 05/01/24 14:49 Iopamidol-370 (76%);100ml Bottle IV 05/01/24 14:49 70 ml ONCE ONE Administration Methylprednisolone Sodium Succinate 60 mg 05/01/24 14:11 05/01/24 14:26 Methylprednisolone Sod Succ 125mg Vial IV 05/01/24 14:12 60 mg ONCE ONE Administration Sodium Chloride 10 ml 05/01/24 14:48 05/01/24 14:49 Sodium Chloride 0.9% 10ml Syr (Rad Only) IV 05/01/24 14:49 10 ml ONCE ONE Administration Sodium Chloride 50 ml 05/01/24 14:48 05/01/24 14:49 0.9 % Sodium Chloride 50 Ml Vial IV 05/01/24 14:49 50 ml ONCE ONE Administration ORDERS Category Date Time Status CTA Chest [CT angio chest PE protocol] Stat Cat Scan 05/01/24 14:11 Completed XR chest 2V Stat Exams 05/01/24 13:22 Completed Complete Blood Count Auto Diff Stat Lab 05/01/24 11:58 Completed Comprehensive Metabolic Panel Stat Lab 05/01/24 11:58 Completed Lactate Venous Stat Lab 05/01/24 15:03 Ordered Lactic Acid Stat Lab 05/01/24 14:44 Completed MAG [Magnesium] Stat Lab 05/01/24 11:58 Completed Trop I [Troponin I] Stat Lab 05/01/24 11:58 Completed Troponin I Q3H Lab 05/01/24 15:58 Completed Troponin I Q3H Lab 05/01/24 18:45 Ordered Sputum Culture & Gram Stain Stat Micro 05/01/24 17:23 Ordered VBG [Venous Blood Gas] Stat RT 05/01/24 14:10 Completed Labs were independently interpreted by me, significant for no leukocytosis, chronic compensated respiratory acidosis, magnesium 1.4 Imaging was independently visualized and interpreted by me, significant for no acute consolidative process. Please refer to radiology report for full details. My clinical impression at this time is most consistent with deconditioning in the setting of multiple comorbidities including COPD. I discussed the case with hospitalist for evaluation for admission. Patient will be evaluated for admission. Care was transferred to incoming physician DO Brayden: I had an interactive discussion with the hospitalist who evaluated the patient for possible admission. He advised that the last time she was admitted, he offered placement, but the patient declines correction placement. She is not significantly changed from her baseline and they are helping to arrange outpatient PT/OT for her. They do not feel that she requires admission given that she declines placement and is at her new baseline. She has outpatient follow-up arranged with oncology/pulmonology for workup of lung mass. Hospitalist advised that he would help facilitate these things. Patient was given strict return precautions and was discharged in stable condition with plan for outpatient follow-up and management Critical Care <Baldev Tinajero MD - Last Filed: 05/01/24 18:39> Critical Care Time Critical Care Time: No
--- OUTSIDE RECORDS SUMMARY | 2024-05-01 12:25 | XMS_ITS | Clinical Summary ---
Author Organization [facility] , [facility] Address [address] [place] [address] Phone Care Team Providers Care Correctional Case Records Supervisor Name Role Phone Rafi PRESCOTT, Maribel Unavailable Unavailable ESTHER MIRANDA Unavailable [phone] Irineo ESPINOZA, Federico Lewis Unavailable [phone] Reason for Visit and Chief Complaint Kyphoplasty Problems Includes: Problems addressed during this encounter and other active Problems All Visits Onset Date Resolved Date Provider Condition S tatus Lower Back Pain 01/30/2023 Ghulam Vila PA-C A ctive Last Documented On 3 1:01PM ; [facility], [facility] Midback Pain 01/30/2023 Ghulam Vila PA-C Acti ve Last Documented On 3 1:01PM ; [facility] Plan of Treatment No [...] prn pain Pharmacy: [facility] - [address] [place] [address] [address], [id number] - Last Documented On 3 4:19PM By Federico Cabello ; [facility], [facility] Current Medications (continue as prescribed) Calcium Carb-Cholecalciferol 600-5 MG-MCG Oral Tablet 11/26/2023 Provider: Stephanie Espinoza APRN Diagnosis: Last Documented On 4 9:11AM By Isadora Cm ; [facility] Albuterol Sulfate HFA 108 (9 0 Base) MCG/ACT Inhalation Aerosol Solution 11/26/2023 Provider: Stephanie gibbons APRN Diagnosis: Last Documented On 4 9:11AM By Isadora Cm ; [facility] Furosemide 40 MG Oral Tablet 11/26/2023 Provider: Diagnosis: Last Documented On 4 9:11AM By Isadora Cm ; [facility] Lisinopril-hydroCHLOROthiazi de 20-25 MG Oral Tablet 11/26/2023 Provider: ESTHER MIRANDA Diagnosis: Last Documented On 4 9:11AM By Isadora Cm ; [facility] Magnesium Gluconate 500 MG Oral Tablet 11/26/2023 Pr ovider: Stephanie Espinoza APRN Diagnosis: Last Documented On 4 9:11AM By Isadora Cm ; [facility] Vitamin D3 1.25 MG (62658 UT) Oral Capsule 11/26/2023 Provider: Stephanie Espinoza APRN Diagnosis: Last Documented On 4 9:11AM By Isadora Cm ; [facility] Potassium Chloride Isela ER 2 0 MEQ Oral Tablet Extended Release 11/26/2023 Provider: Stephanie Espinoza APRN Diagnosis: Last Documented On 4 9:11AM By Isadora Cm ; [facility] Montelukast Sodium 10 MG Oral Tablet 11/26/2023 Prov ider: Diagnosis: Last Documented On 4 9:11AM By Isadora Cm ; [facility] Bisoprolol Fumarate 10 MG Oral Tablet 11/26/2023 Pro vider: Diagnosis: Last Documented On 4 9:11AM By Isadora Cm ; [facility] Folinic-Plus 4-50-2 MG Oral Tablet 11/12/2023 Provid er: Stephanie Espinoza APRN Diagnosis: Last Documented On 4 9:11AM By Isadora Cm ; [facility] Gabapentin 800 MG Oral Tablet 11/12/2023 Provider: Stephanie Espinoza APRN Diagnosis: Last Documented On 4 9:11AM By Isadora Cm ; [facility] HYDROcodone-Acetaminophen 7.5-325 MG Oral Tablet 01/25 Provider: ESTHER MIRANDA Diagnosis: Last Documented On 3 1:01PM By Yesi Marion ; [facility] amLODIPine Besylate 10 MG Oral Tablet 01/25/2023 Pro vider: ESTHERMUNA MIRANDA Diagnosis: Last Documented On 3 1:01PM By Yesi Marion ; [facility] traMADol HCl 50 MG Oral Tablet 01/21/2023 Provider: ESTHER MIRANDA Diagnosis: Last Documented On 3 1:01PM By Yesi Marion ; [facility] Folic Acid 1 MG Oral Tablet 01/02/2023 Provider: Diagnosis: Last Documented On 3 1:01PM By Yesi Marion ; [facility], [facility] Cyclobenzaprine HCl 5 MG Oral Tablet 01/01/2023 Prov ider: ESTHER MIRANDA Diagnosis: Last Documented On 3 1:01PM By Yesi Marion ; [facility], [facility] Medications Administered Includes: Administered Medications from this [...] Date percutaneous vertebral augmentation incl cavity creation 55[address] 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, vertebra(e), init Federico Cabello MD [facility] 05/06/2023 Last Documented On 3 9:19AM ; [facility] Medical History Includes: Medical History [...] Check-In Time Check-Out Time Diagnosis Kyphoplasty [facility] 05/06/20 7:06AM 9:05AM Insurance Includes: Active Insurance Policies Plan Name Member ID Group # Subscriber Relationship Effect kelsey Dates - [employer] [id number] Iqra Balbuena Self Clinical Notes Includes: Clinical Notes from this encounter No Clinical Notes Recorded
--- OUTSIDE RECORDS SUMMARY | 2024-05-01 12:25 | XMS_ITS | Clinical Summary ---
Author Organization [facility] , [facility] Address [address] [place] [address] Phone Care Team Providers Care Surveyor Helper Name Role Phone Rafi PRESCOTT, Maribel Unavailable Unavailable ESTHER MIRANDA Unavailable [phone] Federico Cabello MD Unavailable [phone] Reason for Visit and Chief Complaint [Patient Encounter] Problems Includes: Problems addressed during this encounter and other active Problems All Visits Onset Date Resolved Date Provider Condition S tatus Lower Back Pain 01/30/2023 Ghulam Lewis ctive Last Documented On 3 1:01PM ; [facility] Midback Pain 01/30/2023 Ghulam Vila PA-C Acti ve Last Documented On 3 1:01PM ; [facility], [facility] Plan of Treatment No Plan of Treatment [...] On 4 9:11AM By Isadora Cm ; [facility], [facility] Albuterol Sulfate HFA 108 (9 0 Base) MCG/ACT Inhalation Aerosol Solution 11/26/2023 Provider: Stephanie gibbons APRN Diagnosis: Last Documented On 4 9:11AM By Isadora Cm ; [facility], [facility] Furosemide 40 MG Oral Tablet 11/26/2023 Provider: Diagnosis: Last Documented On 4 9:11AM By Isadora Cm ; [facility] Lisinopril-hydroCHLOROthiazi de 20-25 MG Oral Tablet 11/26/2023 Provider: ESTHER MIRANDA Diagnosis: Last Documented On 4 9:11AM By Isadora Cm ; [facility] Magnesium Gluconate 500 MG Oral Tablet 11/26/2023 Pr ovider: Stephanie Espinoza APRN Diagnosis: Last Documented On 4 9:11AM By Isadora Cm ; [facility] Vitamin D3 1.25 MG (60376 UT) Oral Capsule 11/26/2023 Provider: Stephanie Espinoza APRN Diagnosis: Last Documented On 4 9:11AM By Isadora Cm ; [facility] Potassium Chloride Isela ER 2 0 MEQ Oral Tablet Extended Release 11/26/2023 Provider: Stephanie Espinoza APRN Diagnosis: Last Documented On 4 9:11AM By Isadora Cm ; [facility] Montelukast Sodium 10 MG Oral Tablet 11/26/2023 Prov ider: Diagnosis: Last Documented On 4 9:11AM By Isadora Cm ; [facility] Bisoprolol Fumarate 10 MG Oral Tablet 11/26/2023 Pro vider: Diagnosis: Last Documented On 4 9:11AM By Isadora Cm ; [facility] Folinic-Plus 4-50-2 MG [...] Relationship Effect kelsey Dates 1 - [employer] [id number] Iqra Nuñez Clinical Notes Includes: Clinical Notes from this encounter No Clinical Notes Recorded
--- OUTSIDE RECORDS SUMMARY | 2024-05-01 12:25 | XMS_ITS | Clinical Summary ---
Author Organization [facility] , [facility] Address [address] [place] [address] Phone Care Team Providers Care Microwave Radio Technician Name Role Phone Rafi PRESCOTT, Maribel Unavailable Unavailable ESTHER MIRANDA Unavailable [phone] Federico Cabello MD Unavailable [phone] Reason for Visit and Chief Complaint The Chief Complaint is: Mid-Low back pain Problems Includes: Problems addressed during this encounter and other active Problems All Visits Onset Date Resolved Date Provider Condition S tatus Lower Back Pain 01/30/2023 Ghulam Vila PA-C A ctive Last Documented On 3 1:01PM ; [facility] Midback Pain 01/30/2023 Ghulam Vila PA-C Acti ve Last Documented On 3 1:01PM ; [facility] Plan of Treatment Fall Risk [...] Documented On 05/15/2023 9:01AM ; [facility] Patient was seen by myself [...] 05/15/2023 9:01AM ; [facility] Instructions to patient Intervention and counseling on cessation of tobacco use Last Documented On 3 8:48AM ; [facility] Lose weight Last Documented On 3 8:48AM ; [facility] Assessments Includes: Assessments from this encounter Findings - Overweight - Last Documented On 05/15/2023 9:01AM ; [facility] T12 kyphoplasty 05/06/2023 - Last Documented On 05/15/2023 9:01AM ; [facility] Instructions Includes: Instructions from this encounter Instructions to patient Intervention and counseling on cessation of tobacco use Last Documented On 3 8:48AM ; [facility] Lose weight Last Documented On 3 8:48AM ; [facility] Medical Equipment - Implanted Devices Includes: Current Devices No Medical Equipment Recorded Medications Includes: Medications discussed during this encounter and other current Medications Current Medications (continue as prescribed) Calcium Carb-Cholecalciferol 600-5 MG-MCG Oral Tablet 11/26/2023 Provider: Stephanie Espinoza APRN Diagnosis: Last Documented On 4 9:11AM By Isadora Cm ; [facility] Albuterol Sulfate HFA 108 (9 0 Base) MCG/ACT Inhalation Aerosol Solution 11/26/2023 Provider: Stephanie gibbons APRN Diagnosis: Last Documented On 4 9:11AM By Isadora Cm ; [facility] Furosemide 40 MG Oral Tablet 11/26/2023 Provider: Diagnosis: Last Documented On 4 9:11AM By Isadora Cm ; [facility] Lisinopril-hydroCHLOROthiazi de 20-25 MG Oral Tablet 11/26/2023 Provider: ESTHER MIRANDA Diagnosis: Last Documented On 4 9:11AM By Isadora Cm ; [facility] Magnesium Gluconate 500 MG Oral Tablet 11/26/2023 Pr ovider: Stephanie Espinoza APRN Diagnosis: Last Documented On 4 9:11AM By Isadora Cm ; [facility] Vitamin D3 1.25 MG (29051 UT) Oral Capsule 11/26/2023 Provider: Stephanie Espinoza [...] lc Last Documented: On 05/15/2023 8:49AM ; [facility] Results Includes: Results discussed during this encounter [...] 01/30/2023 Last Documented On 3 8:48AM ; [facility] Smoking Status Unknown Procedures and Surgical History Includes: Procedures from this encounter Procedures Code Diagnosis Performing Provider Service L ocation Service Date intervention and counseling on cessation of tobacco use 4000F Last Documented On 3 8:48AM ; [facility] patient screened for future fall risk: documentation of any fall with injury in past year 1100F Last Documented On 3 8:48AM ; [facility] review of medications documented 1160F Last Documented On 3 8:48AM ; [facility] Medical History Includes: Medical History addressed during [...] Time Diagnosis Post Op Ghulam Vila PA-C [facility] 3 8:46AM 8:59AM Overweight Insurance Includes: Active Insurance Policies Plan Name Member ID Group # Subscriber Relationship Effect kelsey Dates 1 - [employer] [id number] Iqra Balbuena Self Clinical Notes Includes: Clinical Notes from this encounter * Progress note Date Encounter Last Documented by 05/15/2023 Post Op Last documented on 05/15/2023; 9:01 AM, Ghulam Vila PA-C; [facility] Active Problems & Conditions - Lower Back [...]
--- OUTSIDE RECORDS SUMMARY | 2024-05-01 12:25 | XMS_ITS ---
Author Organization [facility] Address [address] [address] Phone Care Team Providers Care Board Mixer Tender Name Role Phone Rafi PRESCOTT, Maribel Unavailable Unavailable ESTHER MIRANDA Unavailable [phone] Irineo ESIPNOZA, Federico Lewis Unavailable [phone] Problems Includes: Active, inactive, and resolved Problems All Visits Onset Date Resolved Date Provider Condition S tatus Lower Back Pain 01/30/2023 Ghulam Vila PA-C A ctive Last Documented On 3 1:01PM ; [facility], [facility] Midback Pain 01/30/2023 Ghulam Vila PA-C Acti ve Last Documented On 3 1:01PM ; [facility], [facility] Plan of Treatment Findings Encounter Date Patient screened for future fall risk: documentation of any fall with injury in past year NEW PROBLEM/EST PT with Federico Cabello MD 12/19/2023 Last Documented On 4 3:28PM ; [facility], [facility] Referrals To Diagnosis Consult with Digital Communications Manager Overw eight Last Documented On 3 1:53PM ; [facility] Consult with Digital Communications Manager Overw eight Note: STAT to see pulmonolog y Dr. Herrmann if [place] to see if patient can have surgery. She is on O2 and has a T11 compression fracture plan would be for a T11 kypho if cleared. Have clearance sent to Isi Ramesh Last Documented On 3 4:46PM ; [facility], [facility] Consult for Pain Management Toba account [...] 12/19/2023 Last Documented On 4 3:28PM ; [facility] Overweight Post Op with [...] weight Last Documented On 3 1:11PM ; [facility] Medical Equipment - Implanted Devices Includes: Current and historical Devices No Medical Equipment Recorded Medications Includes: Current and historical Medications Current Medications (continue as prescribed) Calcium Carb-Cholecalciferol 600-5 MG-MCG Oral Tablet 11/26/2023 Provider: Stephanie Espinoza APRN Diagnosis: Last Documented On 4 9:11AM By Isadora Cm ; [facility], [facility] Albuterol Sulfate HFA 108 (9 0 Base) MCG/ACT Inhalation Aerosol Solution 11/26/2023 Provider: Stephanie gibbons APRN Diagnosis: Last Documented On 4 9:11AM By Isadora Cm ; [facility], [facility] Furosemide 40 MG Oral Tablet 11/26/2023 Provider: Diagnosis: Last Documented On 4 9:11AM By Isadora Cm ; [facility], [facility] Lisinopril-hydroCHLOROthiazi de 20-25 MG Oral Tablet 11/26/2023 Provider: ESTHER MIRANDA Diagnosis: Last Documented On 4 9:11AM By Isadora Cm ; [facility] Magnesium Gluconate 500 MG Oral Tablet 11/26/2023 Pr ovider: Stephanie Espinoza APRN Diagnosis: Last Documented On 4 9:11AM By Isadora Cm ; [facility] Vitamin D3 1.25 MG (12193 UT) Oral Capsule 11/26/2023 Provider: Stephanie Espinoza APRN Diagnosis: Last Documented On 4 9:11AM By Isadora Cm ; [facility] Potassium Chloride Isela ER 2 0 MEQ Oral Tablet Extended Release 11/26/2023 Provider: Stephanie Espinoza APRN Diagnosis: Last Documented On 4 9:11AM By Isadora Cm ; [facility] Montelukast Sodium 10 MG Oral Tablet 11/26/2023 Prov ider: Diagnosis: Last Documented On 4 9:11AM By Isadora Cm ; [facility] Bisoprolol Fumarate 10 MG Oral Tablet 11/26/2023 Pro vider: Diagnosis: Last Documented On 4 9:11AM By Isadora Cm ; [facility] Folinic-Plus 4-50-2 MG Oral Tablet 11/12/2023 Provid er: Stephanie Espinoza APRN Diagnosis: Last Documented On 4 9:11AM By Isadora Cm ; [facility] Gabapentin 800 MG Oral Tablet 11/12/2023 Provider: Stephanie Espinoza APRN Diagnosis: Last Documented On 4 9:11AM By Isadora Cm ; [facility] HYDROcodone-Acetaminophen 7.5-325 MG Oral Tablet 01/25 Provider: ESTHER MIRANDA Diagnosis: Last Documented On 3 1:01PM By Yesi Marion ; [facility] amLODIPine Besylate 10 MG Oral Tablet 01/25/2023 Pro vider: ESTHER MIRANDA Diagnosis: Last Documented On 3 1:01PM By Yesi Marion ; [facility] traMADol HCl 50 MG Oral Tablet 01/21/2023 Provider: ESTHER MIRANDA Diagnosis: Last Documented On 3 1:01PM By eYsi Marion ; [facility] Folic Acid [...] On 4 9:12AM By Isadora Cm ; [facility] HYDROcodone-Acetaminophen 5- 325 MG [...] 3 12:16PM By Federico Cabello ; [facility] HYDROcodone-Acetaminophen 5- 325 MG Oral Tablet 02/28/2023 - 03/13/2023 Provider: Federico Cabello MD Diagnosis: Take 1 tablet every 8 hrs prn pain Last Documented On 3 3:41PM By Federico Cabello ; [facility] HYDROcodone-Acetaminophen 5- 325 MG Oral Tablet 02/19/2023 - 03/04/2023 Provider: Federico Cabello MD Diagnosis: Take 1 tablet every 8 hrs prn pain Last Documented On 3 2:11PM By Federico Cabello ; [facility] HYDROcodone-Acetaminophen 5- 325 MG Oral Tablet 02/06/2023 - 02/19/2023 Provider: Federico Cabello MD Diagnosis: Take 1 tablet every 8 hrs prn pain Last Documented On 3 2:54PM By Federico Cabello ; [facility], [facility] Albuterol Sulfate HFA 108 (9 0 Base) MCG/ACT Inhalation Aerosol Solution 01/24/2023 - 12/19/2023 Provider: ESTHER MIRANDA Diagnosis: Last Documented On 4 9:12AM By Isadora Cm ; [facility], [facility] Bisoprolol Fumarate 10 MG Or al Tablet 01/15/2023 - 12/19/2023 Provider: ESTHER MIRANDA Diagnosis: Last Documented On 4 9:12AM By Isadora Cm ; [facility], [facility] Montelukast Sodium 10 MG Oral Tablet 01/15/2023 - 12/2023 Provider: ESTHER MIRANDA Diagnosis: Last Documented On 4 9:12AM By Isadora Cm ; [facility] Gabapentin 600 MG Oral Tablet 01/13/2023 - 12/19/2023 Provider: ESTHER MIRANDA Diagnosis: Last Documented On 4 9:12AM By Isadora Cm ; [facility], [facility] Medications Administered Includes: Administered Medications in patient's chart No Administered Medications Recorded Vital Signs Includes: Vital Signs from 05/01/2023 through 05/01/2024 Vital Name 12/19/2023 09:25A 05/15/2023 08: 49A Height (in) 62 62 Weight (lb) 120 136 Body Mass Index 21.9 24.9 Body Surface Area 1.5 1.6 Pain Level 10 Note: lc lc Last Documented: On 12/19/2023 9:25AM ; [facility] On 05/15/2023 8:49AM ; [facility] Results Includes: Results from 05/01/2023 through 05/01/2024 No Results Recorded For Specified Dates History of Present Illness History of Present Illness not supported for this document type No History of Present Illness Recorded Social History Description Last Updated Tobacco use 01/30/2023 Last Documented On 3 8:46AM ; [facility] Smoking Status Unknown Procedures and Surgical History Includes: Procedures from 05/01/2023 through 05/01/2024 Procedures Code Diagnosis Performing Provider Service Location Service Date X-RAY EXAM OF LOWER SPINE 4-5 VIEWS 83856 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 w crnt path fx, verteb, 7thD Federico Cabello MD [facility] 12/19/2023 Last Documented On 4 12:53PM ; [facility] percutaneous vertebral augmentation incl cavity creation 65368 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, vertebra(e), init Federico Cabello MD [facility] 05/06/2023 Last Documented On 3 9:19AM ; [facility] Medical History Includes: Medical History in [...] No Known Allergies Encounters Includes: Encounters from 05/01/2023 through 05/01/2024 Encounter Provider Location Date Check-In Time Check-Out Time Diagnosis NEW PROBLEM/EST PT Federico Cabello MD [facility] 12/19/19 24 9:01AM 9:43AM Overweight Post Op Ghulam Vila PA-C [facility] 05/15/20 8:46AM 8:59AM Overweight Kyphoplasty Federico Cabello MD [facility] 05/06/20 7:06AM 9:05AM Insurance Includes: Active Insurance Policies Plan Name Member ID Group # Subscriber Relationship Effect kelsey Dates 1 - [employer] [id number] Iqra Balbuena Self Clinical Notes Includes: Signed Clinical Notes starting from 06/28/2022 * Progress note Date Encounter Last Documented by 05/15/2023 Post Op Last documented on 05/15/2023; 9:01 AM, Ghulam Vila PA-C; [facility], [facility] Active Problems & Conditions - [...]
--- OUTSIDE RECORDS SUMMARY | 2024-05-01 12:25 | XMS_ITS ---
Care Plan - [facility], [facility] Created on: May 01, 2024 Iqra Balbuena : 1955 Sex: Female Author Organization [facility] Address [address] [place] [address] Phone Care Team Providers Care Farm Tractor Mechanic Name Role Phone Rafi PRESCOTT, Maribel Unavailable Unavailable ESTHER MIRANDA Unavailable [phone] Irineo ESPINOZA, Federico Lewis Unavailable [phone]
--- OUTSIDE RECORDS SUMMARY | 2024-05-01 12:25 | XMS_ITS | Clinical Summary ---
Author Organization [facility] Address [address] [place] [address] Phone Care Team Providers Care Family Health Nurse Practitioner Name Role Phone Rafi PRESCOTT, Maribel Unavailable Unavailable ESTHER MIRANDA Unavailable [phone] Federico Cabello MD Unavailable [phone] Reason for Visit and Chief Complaint The Chief Complaint is: Mid-Low back pain Problems Includes: Problems addressed during this encounter and other active Problems Current Visit Onset Date Resolved Date Provider Conditio n Status Lower Back Pain 01/30/2023 Ghulam Vila PA-C A ctive Last Documented On 3 1:01PM ; [facility], [facility] Past Visits Onset Date Resolved Date Provider Condition Status Midback Pain 01/30/2023 Ghulam Vila PA-C Acti ve Last Documented On 3 1:01PM ; [facility], [facility] Plan of Treatment - Patient screened for future fall risk: documentation of any fall with injury in past year - Last Documented On 12/19/2023 3:28PM ; [facility], [facility] Fall Risk Assessment: This patient has [...] - Last Documented On 12/19/2023 3:28PM ; [facility], [facility] Referrals To Diagnosis Consult for Pain Management Toba clinical account executive abuse counseling Note: Wait for note to send // cc*Have order ready on paper Last Documented On 4 2:10PM ; [facility], [facility] Instructions to patient Intervention and counseling on cessation of tobacco use Last Documented On 4 9:11AM ; [facility], [facility] Intervention and counseling on cessation of tobacco use Last Documented On 4 9:26AM ; [facility], [facility] Lose weight Last Documented On 4 9:50AM ; [facility], [facility] Assessments Includes: Assessments from this encounter Findings - Overweight - Last Documented On 12/19/2023 3:28PM ; [facility], [facility] Instructions Includes: Instructions from this encounter Instructions to patient Intervention and counseling on cessation of tobacco use Last Documented On 4 9:11AM ; [facility], [facility] Intervention and counseling on cessation of tobacco use Last Documented On 4 9:26AM ; [facility], [facility] Lose weight Last Documented On 4 9:50AM ; [facility], [facility] Medical Equipment - Implanted Devices Includes: Current Devices No Medical Equipment Recorded Medications Includes: Medications discussed during this encounter and other current Medications Discontinued / Stopped on this date Stephanie Espinoza APRN on 11/12/2023 Magnesium Gluconate 500 MG Oral Tablet Pr ovider: Stephanie Espinoza APRN Diagnosis: Last Documented On 4 9:12AM By Isadora Cm ; [facility], [facility] Potassium Chloride Isela ER 2 0 MEQ Oral Tablet Extended Release Provider: Stephanie Espinoza APRN Diagnosis: Last Documented On 4 9:12AM By Isadora Cm ; [facility], [facility] Lisinopril-hydroCHLOROthiazi de 20-25 MG Oral Tablet Provider: ESTHER MIRANDA Diagnosis: Last Documented On 4 9:12AM By Isadora Cm ; [facility], [facility] Albuterol Sulfate HFA 108 (9 0 Base) MCG/ACT Inhalation Aerosol Solution Provider: ESTHER PEARCE ER Diagnosis: Last Documented On 4 9:12AM By Isadora Cm ; [facility], [facility] Bisoprolol Fumarate 10 MG Oral Tablet Pro vider: ESTHER MIRANDA Diagnosis: Last Documented On 4 9:12AM By Isadora Cm ; [facility], [facility] Montelukast Sodium 10 MG Oral Tablet Prov ider: ESTHER MIRANDA Diagnosis: Last Documented On 4 9:12AM By Isadora Cm ; [facility], [facility] Gabapentin 600 MG Oral Tablet Provider: ESTHER MIRANDA Diagnosis: Last Documented On 4 9:12AM By Isadora Cm ; [facility], [facility] Current Medications (continue as prescribed) Calcium Carb-Cholecalciferol 600-5 MG-MCG Oral Tablet 11/26/2023 Provider: Stephanie Espinoza APRN Diagnosis: Last Documented On 4 9:11AM By Isadora Cm ; [facility], [facility] Albuterol Sulfate HFA 108 (9 0 Base) MCG/ACT Inhalation Aerosol Solution 11/26/2023 Provider: Stephanie gibbons APRN Diagnosis: Last Documented On 4 9:11AM By Isadora Cm ; [facility], [facility] Furosemide 40 MG Oral Tablet 11/26/2023 Provider: Diagnosis: Last Documented On 4 9:11AM By Isadora Cm ; [facility], [facility] Lisinopril-hydroCHLOROthiazi de 20-25 MG Oral Tablet 11/26/2023 Provider: ESTHER MIRANDA Diagnosis: Last Documented On 4 9:11AM By Isadora Cm ; [facility] Magnesium Gluconate 500 MG Oral Tablet 11/26/2023 Pr ovider: Stephanie Espinoza APRN Diagnosis: Last Documented On 4 9:11AM By Isadora Cm ; [facility], [facility] Vitamin D3 1.25 MG (40335 UT) Oral Capsule 11/26/2023 Provider: Stephanie Espinoza APRN Diagnosis: Last Documented On 4 9:11AM By Isadora Cm ; [facility], [facility] Potassium Chloride Isela ER 2 0 MEQ Oral Tablet Extended Release 11/26/2023 Provider: Stephanie Espinoza APRN Diagnosis: Last Documented On 4 9:11AM By Isadora Cm ; [facility], [facility] Montelukast Sodium 10 MG Oral Tablet 11/26/2023 Prov ider: Diagnosis: Last Documented On 4 9:11AM By Isadora Cm ; [facility] Bisoprolol Fumarate 10 MG Oral Tablet 11/26/2023 Pro vider: Diagnosis: Last Documented On 4 9:11AM By Isadora Cm ; [facility] Folinic-Plus 4-50-2 MG Oral Tablet 11/12/2023 Provid er: Stephanie Espinoza APRN Diagnosis: Last Documented On 4 9:11AM By Isadora Cm ; [facility] Gabapentin 800 MG Oral Tablet 11/12/2023 Provider: Stephanie Espinoza APRN Diagnosis: Last Documented On 4 9:11AM By Isadora Cm ; [facility] HYDROcodone-Acetaminophen 7.5-325 MG Oral Tablet 01/25 Provider: ESTHER MIRANDA Diagnosis: Last Documented On 3 1:01PM By Yesi Marion ; [facility] amLODIPine Besylate 10 MG Oral Tablet 01/25/2023 Pro vider: ESTHER MIRANDA Diagnosis: Last Documented On 3 1:01PM By Yesi Marion ; [facility] traMADol HCl 50 MG Oral Tablet 01/21/2023 Provider: ESTHER MIRANDA Diagnosis: Last Documented On 3 1:01PM By Yesi Marion ; [facility] Folic Acid 1 MG Oral Tablet 01/02/2023 Provider: Diagnosis: Last Documented On 3 1:01PM By Yesi Marion ; [facility] Cyclobenzaprine HCl 5 MG [...] On 3 2:11PM By Federico Cabello ; [facility] HYDROcodone-Acetaminophen 5- 325 MG [...] 12/19/2023 Last Documented On 4 9:52AM ; [facility] Caffeine use 12/19/2023 Last Documented On 4 9:52AM ; [facility] No recent change in diet 12/19/2023 Last Documented On 4 9:52AM ; [facility] Not exercising regularly 12/19/2023 Last Documented On 4 9:52AM ; [facility] Not using drugs 12/19/2023 Last Documented On 4 9:52AM ; [facility], [facility] Yes, current smoker. 12/19/2023 Last Documented On 4 9:52AM ; [facility] Tobacco use 01/30/2023 Last Documented On 4 9:11AM ; [facility], [facility] Smoking Status Unknown Procedures and Surgical History Includes: Procedures from this encounter Procedures Code Diagnosis Performing Provider Service Location Service Date X-RAY EXAM OF LOWER SPINE 4-5 VIEWS 66062 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 w crnt path fx, verteb, 7thD Federico Cabello MD [facility] 12/19/2023 Last Documented On 4 12:53PM ; [facility], [facility] intervention and counseling on cessation of toba clinical account executive use 4000F Last Documented On 4 9:11AM ; [facility], [facility] patient screened for future fall risk: documentation of any fall with injury in past year 1100F Last Documented On 4 9:11AM ; [facility], [facility] review of medications documented 1160F Last Documented On 4 9:11AM ; [facility], [facility] an X-ray was performed 29815 Last Documented On 4 9:50AM ; [facility] an MRI was performed [facility] [id number] Last Documented On 4 9:27AM ; [facility], [facility] Surgical History Last Updated History of back surgery T11 Kypho 02/25/ 3 ~T12 Kypho 10/23/23 12/19/2023 Last Documented On 4 9:55AM ; [facility] Medical History Includes: Medical History addressed during this encounter Description Last Updated History of Heartburn / Acid Reflux 12/18 Last Documented On 4 9:51AM ; [facility] History of History of Emphysema 12/19/19 24 Last Documented On 4 9:51AM ; [facility] Family History Includes: Family History addressed during this encounter Description Last Updated No significant family history 12/19/2023 Last Documented On 4 9:55AM ; [facility] Review of Systems Includes: Review [...] Diagnosis NEW PROBLEM/EST PT Federico Cabello MD [facility] 12/19/19 24 9:01AM 9:43AM Overweight Insurance Includes: Active Insurance Policies Plan Name Member ID Group # Subscriber Relationship Effect kelsey Dates 1 - [employer] [id number] Iqra Balbuena Self Clinical Notes Includes: Clinical Notes from this encounter No Clinical Notes Recorded
--- OUTSIDE RECORDS SUMMARY | 2024-05-01 12:26 | XMS_ITS | Clinical Summary ---
Author Organization [facility] , [facility] Address [address] [place] [address] Phone Care Team Providers Care Associate Agent Insurance Sales Name Role Phone Rafi PRESCOTT, Maribel Unavailable Unavailable ESTHER MIRANDA Unavailable [phone] Irineo ESPINOZA, Federico Lewis Unavailable [phone] Reason for Visit and Chief Complaint [Patient Encounter] Problems Includes: Problems addressed during this encounter and other active Problems All Visits Onset Date Resolved Date Provider Condition S tatus Lower Back Pain 01/30/2023 Ghulam Lewis ctive Last Documented On 3 1:01PM ; [facility], [facility] Midback Pain 01/30/2023 Ghulam Vila PA-C Acti ve Last Documented On 3 1:01PM ; [facility], [facility] Plan of Treatment No Plan of Treatment [...] tablet every 8 hrs prn pain Pharmacy: [facility] - [address] [place] [address] [address], [id number] - Last Documented On 3 3:26PM By Federico Cabello ; [facility], [facility] Current Medications (continue as prescribed) Calcium Carb-Cholecalciferol 600-5 MG-MCG Oral Tablet 11/26/2023 Provider: Stephanie Espinoza APRN Diagnosis: Last Documented On 4 9:11AM By Isadora Cm ; [facility] Albuterol Sulfate HFA 108 (9 0 Base) MCG/ACT Inhalation Aerosol Solution 11/26/2023 Provider: Stephanie gibbons APRN Diagnosis: Last Documented On 4 9:11AM By Isadora Cm ; [facility] Furosemide 40 MG Oral Tablet 11/26/2023 Provider: Diagnosis: Last Documented On 4 9:11AM By Isadora Cm ; [facility] Lisinopril-hydroCHLOROthiazi de 20-25 MG Oral Tablet 11/26/2023 Provider: ESTHER MIRANDA Diagnosis: Last Documented On 4 9:11AM By Isadora Cm ; [facility] Magnesium Gluconate 500 MG Oral Tablet 11/26/2023 Pr ovider: Stephanie Espinoza APRN Diagnosis: Last Documented On 4 9:11AM By Isadora Cm ; [facility], [facility] Vitamin D3 1.25 MG (61796 UT) Oral Capsule 11/26/2023 Provider: Stephanie Espinoza APRN Diagnosis: Last Documented On 4 9:11AM By Isadora Cm ; [facility], [facility] Potassium Chloride Isela ER 2 0 MEQ Oral Tablet Extended Release 11/26/2023 Provider: Stephanie Espinoza APRN Diagnosis: Last Documented On 4 9:11AM By Isadora Cm ; [facility] Montelukast Sodium 10 MG Oral Tablet 11/26/2023 Prov ider: Diagnosis: Last Documented On 4 9:11AM By Isadora Cm ; [facility] Bisoprolol Fumarate 10 MG Oral Tablet 11/26/2023 Pro vider: Diagnosis: Last Documented On 4 9:11AM By Isadora Cm ; [facility] Folinic-Plus 4-50-2 MG Oral [...] Relationship Effect kelsey Dates 1 - [employer] [id number] Iqra Balbuena Self Clinical Notes Includes: Clinical Notes from this encounter No Clinical Notes Recorded
[2024-05-01 12:51] LABS: Alanine Aminotransferase 15 U/L (12-78); Albumin Level 3.6 g/dl (3.5-5.0); Albumin/Globulin Ratio 1.5 (1.1-1.8); Alkaline Phosphatase 50 U/L (38-126); Anion Gap 4.7 mEq/L (5-15); Aspartate Amino Transferase 21 U/L (14-36); Bilirubin,Total 0.5 mg/dl (0.2-1.3); Blood Urea Nitrogen 11 mg/dl (7-17); Calcium 10.5 mg/dl (8.4-10.2); Carbon Dioxide 32 mmol/L (22.0-30.0); Chloride 103 mmol/L (98-107); Creatinine Clearance Estimated 47 mL/min (50-200); Estimated Glomerular Filt Rate 71 ml/min (>60); GFR (African American) 86 ML/MIN (>60); Globulin 2.4 g/dL (1.3-3.2); Glucose 98 mg/dl (74-100); Magnesium 1.4 mg/dl (1.6-2.3); Potassium 3.7 mmoL/L (3.5-5.1); Sodium 136 mmol/L (136-145)
[2024-05-01 13:02] LABS: Basophils # 0.1 K/mm3 (0-0.2); Basophils % 0.6 % (0.1-2.0); Eosinophils # 0.1 K/mm3 (0.0-0.4); Eosinophils % 1.3 % (0.1-12.0); Hematocrit 35.5 % (37.0-47.0); Hemoglobin 11.9 g/dL (12.2-16.2); Lymphocytes # 2.3 K/mm3 (0.7-4.5); Lymphocytes % 23.7 % (10-50); Mean Corpuscular HGB Conc 33.5 g/dL (31.8-35.4); Mean Corpuscular Hemoglobin 32.6 pg (27.0-31.2); Mean Corpuscular Volume 97.4 fl (81-99); Monocytes # 0.3 K/mm3 (0.1-1.0); Monocytes % 3.2 % (1.7-9.3); Neutrophils # 6.9 K/mm3 (1.8-7.8); Neutrophils % 71.1 % (37.0-80.0); Platelet Count 254 K/mm3 (142-424); Red Blood Count 3.65 M/mm3 (4.20-5.40); Red Cell Distribution Width 12.7 % (11.5-17.5); White Blood Count 9.8 K/mm3 (4.8-10.8)
[2024-05-01 13:06] LABS: Troponin I < 0.01 ng/ml (0.00-0.034)
--- NOTE | 2024-05-01 13:22 | XR_ITS ---
PROCEDURE INFORMATION: Exam: XR Chest Exam date and time: 05/01/2024 1:31 PM Age: 69 years old Clinical indication: Shortness of breath; Additional info: SOA, weakness TECHNIQUE: Imaging protocol: Radiologic exam of the chest. Views: 2 views. COMPARISON: CT ANGIO CHEST 04/15/2024 2:44 PM FINDINGS: Lungs: The lungs are hyperinflated with COPD changes. No definite acute infiltrates. Pleural spaces: No visible pleural effusions. Heart/Mediastinum: Unremarkable. No cardiomegaly. Bones/joints: Old multilevel compression fracture deformities treated with kyphoplasty/vertebroplasty. No new osseous lesions identified. IMPRESSION: COPD, otherwise clear chest.
--- NOTE | 2024-05-01 14:11 | CT_ITS ---
PROCEDURE INFORMATION: Exam: CTA Chest With Contrast Exam date and time: 05/01/2024 2:50 PM Age: 69 years old Clinical indication: Dyspnea; Additional info: HX copd, tachycardia, worsening dyspnea TECHNIQUE: Imaging protocol: Computed tomographic angiography of the chest with contrast. Exam focused on the arteries. 3D rendering (Not supervised by radiologist): MIP and/or 3D reconstructed images were created by the technologist. Radiation optimization: All CT scans at this facility use at least one of these dose optimization techniques: automated exposure control; mA and/or kV adjustment per patient size (includes targeted exams where dose is matched to clinical indication); or iterative reconstruction. Contrast material: ISOVUE 370; Contrast volume: 70 ml; Contrast route: INTRAVENOUS (IV); COMPARISON: CT ANGIO CHEST 04/15/2024 2:44 PM FINDINGS: Pulmonary arteries: Normal. No pulmonary emboli. Aorta: Unremarkable. No aortic aneurysm. No aortic dissection. Lungs: Extensive emphysematous changes throughout both lungs. The patient's previously noted spiculated nodule in the inferior aspect of the right upper lobe abutting the right major fissure is again noted and slightly larger on the current exam. Previously this spiculated nodule had measured about 1.7 x 1.3 cm and currently measures about 1.9 x 1.9 cm. There is an adjacent satellite spiculated nodule which is also subtly increased in size previously measuring about 7 mm and currently measuring about 10 mm. No new nodules or infiltrates identified. Pleural spaces: No pleural effusions. Heart: There is calcified coronary artery disease. No cardiomegaly. No pericardial effusion. Lymph nodes: Unremarkable. No enlarged lymph nodes. Liver: Stable small calcified granulomas in the liver. Spleen: Stable calcified splenic granulomas and stable hyperdense splenic lesions. Kidneys: Stable small bilateral renal cortical cysts. Bones/joints: No acute osseous lesions. There are stable compression fracture deformities status post kyphoplasty/vertebroplasty at T11, T12 and L2. Soft tissues: Unremarkable. IMPRESSION: 1. Severe/extensive emphysematous changes throughout both lungs. 2. Enlarging spiculated nodules in the inferior right upper lobe concerning for neoplasm. Consider biopsy to establish histology. 3. Calcified coronary artery disease. COMMENTS: The presence of pulmonary emphysema on CT is an independent risk factor for lung cancer. In the absence of a history or active diagnosis of lung cancer, it is recommended that this patient with emphysema be evaluated for enrollment in a low dose CT lung cancer screening program.
[2024-05-01] MEDS: IPRATROPIUM/ALBUTEROL 3 ML NEB IH ×2 (14:26→17:47)
[2024-05-01] MEDS: METHYLPREDNISOLONE SOD SUCC 125MG VIAL 60 MG IV (14:26)
[2024-05-01] MEDS: MAGNESIUM SULFATE IN WATER 2 GM/50 ML PIGGYBACK IV (14:26)
[2024-05-01] MEDS: SODIUM CHLORIDE 0.9% 10ML SYR (RAD ONLY) 10 ML IV (14:49)
[2024-05-01] MEDS: IOPAMIDOL-370 (76%);100ML BOTTLE 70 ML IV (14:49)
[2024-05-01] MEDS: 0.9 % SODIUM CHLORIDE 50 ML VIAL IV (14:49)
[2024-05-01 14:52] LABS: Lactate Venous 1.2 mmol/L (0.4-2.0); VBG Base Excess 4.2 mmol/L (-2.4-2.3); VBG HCO3 30.1 mmol/L (23-30); VBG Oxygen Saturation 79.3 % (50-70); VBG PH 7.33 mmol/L (7.31-7.41); VBG PO2 42.7 mmol/L (28-40); VBG Total CO2 31.9 mmol/L (23-27)
--- NOTE | 2024-05-01 15:26 | PC.NURSE ---
AllieRN rounded on patient, voiced no needs at this time. call light within reach, family at bedside.
--- NOTE | 2024-05-01 15:52 | PC.NURSE ---
ATTEMPTED TO AMBULATE PT, USES CANE AT HOME. REQUIRES ASSIST X 2. PT WEARS HOME O2 AT 1L/NC AT NIGHT. APPLIED AT THIS TIME WHILE PT SLEEPING. O2 SAT 83% ON ROOM AIR
[2024-05-01 16:34] LABS: Troponin I < 0.01 ng/ml (0.00-0.034)
[2024-05-01] MEDS: LEVOFLOXACIN/D5W 500 MG/100 ML PIGGYBACK 100 MG IV (17:47)
--- NOTE | 2024-05-01 18:18 | PC.NURSE ---
HOSPITALIST AT BEDSIDE
--- NOTE | 2024-05-01 18:29 | PC.NURSE ---
PUREWICK PLACED ON PT AT THIS TIME
--- NOTE | 2024-05-01 18:30 | PC.NURSE ---
HOSPITALIST AT BS UPDATING PT FAMILY
--- NOTE | 2024-05-01 19:16 | EXP.MED.CON ---
[facility] Disclaimer: The information contained in this section may have been updated after the patient was seen, as this information can be updated by other users. Medical History (Updated 05/01/24 @ 18:29 by Felicia Owen DO) COPD mixed type Lung nodule Hypokalemia Elevated troponin COPD (chronic obstructive pulmonary disease) Nocturnal hypoxemia Pulmonary emphysema Incidental pulmonary nodule, greater than or equal to 8mm Smoking greater than 30 pack years Dyspnea on exertion Tobacco abuse disorder Tobacco abuse counseling COPD (chronic obstructive pulmonary disease) Cervical cancer Surgical History History of dilation and curettage History of back surgery Family History Other Diabetes Social History Smoking Status: Current every day smoker tobacco type: cigarettes packs per day: 2 second hand exposure: Yes alcohol intake: current alcohol intake frequency: 0-2 drinks per day current occupational status: unemployed Travel in the last 8 weeks: None household members: spouse housing: house current occupational exposures/hazards: No Exam Data for Last 24 hours Vital signs and Labs for Last 24 Hours: Temp Pulse Resp BP Pulse Ox O2 Del Method O2 Flow Rate 98.7 F 114 H 18 123/69 99 Room Air 1 05/01/24 19:00 05/01/24 19:03 05/01/24 19:00 05/01/24 19:03 05/01/24 19:03 05/01/24 19:03 05/01/24 16:44 Laboratory Results - last 24 hr 05/01/24 11:58: WBC 9.8, RBC 3.65 L, Hgb 11.9 L, Hct 35.5 L, MCV 97.4, MCH 32.6 H, MCHC 33.5, RDW 12.7, Plt Count 254, MPV 8.0, Neut % (Auto) 71.1, Lymph % (Auto) 23.7, Ulster % (Auto) 3.2, Eos % (Auto) 1.3, Baso % (Auto) 0.6, Neut # (Auto) 6.9, Lymph # (Auto) 2.3, Ulster # (Auto) 0.3, Eos # (Auto) 0.1, Baso # (Auto) 0.1, Sodium 136, Potassium 3.7, Chloride 103, Carbon Dioxide 32 H, Anion Gap 4.7 L, BUN 11, Creatinine 0.80, Estimated Creat Clear 47, Estimated GFR 71, Est GFR ( Amer) 86, Glucose 98, Calcium 10.5 H, Magnesium 1.4 L, Total Bilirubin 0.5, AST 21, ALT 15, Alkaline Phosphatase 50, Troponin I < 0.01, Total Protein 6.0 L, Albumin 3.6, Globulin 2.4, Albumin/Globulin Ratio 1.5 05/01/24 14:10: VBG pH 7.33, VBG pCO2 58.0 H, VBG pO2 42.7 H, VBG HCO3 30.1 H, VBG Total CO2 31.9 H, VBG O2 Saturation 79.3 H, VBG Base Excess 4.2 H, VBG Lactic Acid 1.2 05/01/24 14:44: Lactate 1.0 05/01/24 15:58: Troponin I < 0.01 I & O for Last 24 hours: Intake & Output 04/28/24 04/29/24 04/30/24 05/01/24 23:59 23:59 23:59 23:59 Weight 55.792 kg Meds Home Medications and Allergies Home Medications ?Medication ?Instructions ?Recorded ?Confirmed ?Type ipratropium 0.5 mg-albuterol 3 mg 3 ml inhalation QIDP PRN Shortness 07/03/21 04/15/24 History (2.5 mg base)/3 mL nebulization Of Breath soln fluticasone 250 mcg-salmeterol 50 1 inh inhalation BID COPD 04/19/22 04/15/24 History mcg/dose blistr powdr for inhalation (Advair Diskus) albuterol sulfate 90 mcg/actuation 2 inh inhalation NEEDED PRN SOA 04/15/24 04/15/24 History aerosol inhaler alprazolam 1 mg tablet 1 mg PO BID 04/15/24 04/15/24 History calcium 600 mg (as 1 tab PO BID 04/15/24 04/15/24 History carbonate)-vitamin D3 5 mcg (200 unit) tablet celecoxib 50 mg capsule 50 mg PO DAILY 04/15/24 04/15/24 History cholecalciferol (vitamin D3) 1,250 1,250 mcg PO WEEKLY 04/15/24 04/15/24 History mcg (50,000 unit) capsule duloxetine 30 mg capsule,delayed 30 mg PO DAILY 04/15/24 04/15/24 History release gabapentin 800 mg tablet 800 mg PO DAILY 04/15/24 04/16/24 History hydrocodone 10 mg-acetaminophen 1 tab PO DAILY 04/15/24 04/16/24 History 325 mg tablet losartan 100 mg tablet 100 mg PO DAILY 04/15/24 04/16/24 History magnesium gluconate 27 mg 500 mg PO DAILY 04/15/24 04/15/24 History magnesium (500 mg) tablet montelukast 10 mg tablet 10 mg PO DAILY 04/15/24 04/15/24 History potassium chloride 20 mEq 40 meq PO BID 04/15/24 04/15/24 History tablet,extended release(part/cryst) amlodipine 10 mg tablet 10 mg PO DAILY #30 tabs 04/16/24 Rx doxycycline hyclate 100 mg tablet 100 mg PO BID 3 days #6 tabs 04/16/24 Rx glycerin (adult) (Fleet Glycerin 1 supp [place] DAILY PRN constipation 04/16/24 Rx (Adult) rectal suppository) #12 ea polyethylene glycol 3350 17 gram 17 g PO DAILY #30 ea 04/16/24 Rx oral powder packet (HealthyLax) prednisone 20 mg tablet 40 mg (2 x 20 mg) PO DAILY 2 days 05/01/24 Rx #4 tabs New Prescriptions to Start Prescriptions: prednisone Felicia Owen Allergies Allergy/AdvReac Type Severity Reaction Status Date / Time No Known Allergies Allergy Verified 02/12/24 15:46 Results Labs 05/01/24 11:58 05/01/24 11:58 Labs: Abnormal lab results 05/01/24 05/01/24 Range/Units 11:58 14:10 RBC 3.65 L (4.20-5.40) M/mm3 Hgb 11.9 L (12.2-16.2) g/dL Hct 35.5 L (37.0-47.0) % MCH 32.6 H (27.0-31.2) pg VBG pCO2 58.0 H (35-51) mmol/L VBG pO2 42.7 H (28-40) mmol/L VBG HCO3 30.1 H (23-30) mmol/L VBG Total CO2 31.9 H (23-27) mmol/L VBG O2 Saturation 79.3 H (50-70) % VBG Base Excess 4.2 H (-2.4-2.3) mmol/L Carbon Dioxide 32 H (22.0-30.0) mmol/L Anion Gap 4.7 L (5-15) mEq/L Calcium 10.5 H (8.4-10.2) mg/dl Magnesium 1.4 L (1.6-2.3) mg/dl Total Protein 6.0 L (6.3-8.2) g/dl H & H 05/01/24 Range/Units 11:58 Hgb 11.9 L (12.2-16.2) g/dL Hct 35.5 L (37.0-47.0) % All other labs normal.
== END 2024-05-01 19:20 | disposition home or self-care (01) ==
PROVIDERS: Emergency Medicine; Emergency Provider Emergency Medicine; PCP Nurse Practitioner
DX: R91.8 Other nonspecific abnormal finding of lung field (principal); R53.1 Weakness; R42 Dizziness and giddiness; R53.83 Other fatigue; R26.2 Difficulty in walking, not elsewhere classified
CPT/HCPCS: 71046; 71275; 80053; 82803; 83605; 83735; 84484; 85025; 93005; 96365; 96366; 96374; 99285; J1956; J2919; J3475; J7620; Q9967

== ENCOUNTER 2024-05-15 13:52 | Emergency (ER) | payer MEDICARE, SELFPAY ==
[2024-05-15 13:54] VITALS: BP 130/77; PULSE 104; RESP 13; TEMP 36.4; O2SAT 94; BMI 21.9
--- OUTSIDE RECORDS SUMMARY | 2024-05-15 14:15 | XMS_ITS ---
Care Plan - [facility], [facility] Created on: May 15, 2024 Iqra Balbuena : 1955 Sex: Female Author Organization [facility] Address [address] [place] [address] Phone Care Team Providers Care Tar Boiler Name Role Phone Rafi PRESCOTT, Maribel Unavailable Unavailable ESTHER MIRANDA Unavailable [phone] Irineo ESPINOZA, Federico Lewis Unavailable [phone]
--- OUTSIDE RECORDS SUMMARY | 2024-05-15 14:15 | XMS_ITS | Clinical Summary ---
Author Organization [facility] Address [address] [place] [address] Phone Care Team Providers Care Medical Supervisor Name Role Phone Rafi PRESCOTT, Maribel Unavailable Unavailable ESTHER MIRANDA Unavailable [phone] Federico Cabello MD Unavailable [phone] Reason for Visit and Chief Complaint The Chief Complaint is: Mid-Low back pain Problems Includes: Problems addressed during this encounter and other active Problems Current Visit Onset Date Resolved Date Provider Conditio n Status Lower Back Pain 01/30/2023 Ghulam Vila PA-C A ctive Last Documented [facility] 3 1:01PM ; [facility] Past Visits Onset Date Resolved Date Provider Condition Status Midback Pain 01/30/2023 Ghulam Vila PA-C Acti ve Last Documented On 3 1:01PM ; [facility], [facility] Plan of Treatment - Patient screened for future fall risk: documentation of any fall with injury in past year - Last Documented On 12/19/2023 3:28PM ; [facility], [facility] Fall Risk Assessment: This patient [...] On 12/19/2023 3:28PM ; [facility], [facility] Referrals To Diagnosis Consult for Pain Management Toba senior revenue 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 abuse counseling Note: Wait for note to send // cc*Have order ready on paper Last Documented On 4 2:10PM ; [facility], [facility] Instructions to patient Intervention and counseling on cessation of tobacco use Last Documented On 4 9:11AM ; [facility], [facility] Intervention and counseling on cessation of tobacco use Last Documented On 4 9:26AM ; [facility], [facility] Lose weight Last Documented On 4 9:50AM ; [facility], [facility] Assessments Includes: Assessments from this encounter Findings - Overweight - Last Documented On 12/19/2023 3:28PM ; [facility], [facility] Instructions Includes: Instructions from this encounter Instructions to patient Intervention and counseling on cessation of tobacco use Last Documented On 4 9:11AM ; [facility], [facility] Intervention and counseling on cessation of tobacco use Last Documented On 4 9:26AM ; [facility], [facility] Lose weight Last Documented On 4 9:50AM ; [facility], [facility] Medical Equipment - Implanted Devices Includes: Current Devices No Medical Equipment Recorded Medications Includes: Medications discussed during this encounter and other current Medications Discontinued / Stopped on this date Stephanie Espinoza APRN on 11/12/2023 Magnesium Gluconate 500 MG Oral Tablet Pr ovider: Stephanie Espinoza APRN Diagnosis: Last Documented On 4 9:12AM By Isadora Cm ; [facility], [facility] Potassium Chloride Isela ER 2 0 MEQ Oral Tablet Extended Release Provider: Stephanie Espinoza APRN Diagnosis: Last Documented On 4 9:12AM By Isadora Cm ; [facility], [facility] Lisinopril-hydroCHLOROthiazi de 20-25 MG Oral Tablet Provider: ESTHER MIRANDA Diagnosis: Last Documented On 4 9:12AM By Isadora Cm ; [facility], [facility] Albuterol Sulfate HFA 108 (9 0 Base) MCG/ACT Inhalation Aerosol Solution Provider: ESTHER PEARCE ER Diagnosis: Last Documented On 4 9:12AM By Isadora Cm ; [facility], [facility] Bisoprolol Fumarate 10 MG Oral Tablet Pro vider: ESTHER MIRANDA Diagnosis: Last Documented On 4 9:12AM By Isadora Cm ; [facility], [facility] Montelukast Sodium 10 MG Oral Tablet Prov ider: ESTHER MIRANDA Diagnosis: Last Documented On 4 9:12AM By Isadora Cm ; [facility], [facility] Gabapentin 600 MG Oral Tablet Provider: ESTHER MIRANDA Diagnosis: Last Documented On 4 9:12AM By Isadora Cm ; [facility], [facility] Current Medications (continue as prescribed) Calcium Carb-Cholecalciferol 600-5 MG-MCG Oral Tablet 11/26/2023 Provider: Stephanie Espinoza APRN Diagnosis: Last Documented On 4 9:11AM By Isadora Cm ; [facility], [facility] Albuterol Sulfate HFA 108 (9 0 Base) MCG/ACT Inhalation Aerosol Solution 11/26/2023 Provider: Stephanie gibbons APRN Diagnosis: Last Documented On 4 9:11AM By Isadora Cm ; [facility], [facility] Furosemide 40 MG Oral Tablet 11/26/2023 Provider: Diagnosis: Last Documented On 4 9:11AM By Isadora Cm ; [facility], [facility] Lisinopril-hydroCHLOROthiazi de 20-25 MG Oral Tablet 11/26/2023 Provider: ESTHER MIRANDA Diagnosis: Last Documented On 4 9:11AM By Isadora Cm ; [facility], [facility] Magnesium Gluconate 500 MG Oral Tablet 11/26/2023 Pr ovider: Stephanie Espinoza APRN Diagnosis: Last Documented On 4 9:11AM By Isadora Cm ; [facility], [facility] Vitamin D3 1.25 MG (70771 UT) Oral Capsule 11/26/2023 Provider: Stephanie Espinoza APRN Diagnosis: Last Documented On 4 9:11AM By Isadora Cm ; [facility], [facility] Potassium Chloride Isela ER 2 0 MEQ Oral Tablet Extended Release 11/26/2023 Provider: Stephanie Espinoza APRN Diagnosis: Last Documented On 4 9:11AM By Isadora Cm ; [facility], [facility] Montelukast Sodium 10 MG Oral Tablet 11/26/2023 Prov ider: Diagnosis: Last Documented On 4 9:11AM By Isadora Cm ; [facility] Bisoprolol Fumarate 10 MG Oral Tablet 11/26/2023 Pro vider: Diagnosis: Last Documented On 4 9:11AM By Isadora Cm ; [facility] Folinic-Plus 4-50-2 MG Oral Tablet 11/12/2023 Provid er: Stephanie Espinoza APRN Diagnosis: Last Documented On 4 9:11AM By Isadora Cm ; [facility] Gabapentin 800 MG Oral Tablet 11/12/2023 Provider: Stephanie Espinoza APRN Diagnosis: Last Documented On 4 9:11AM By Isadora Cm ; [facility] HYDROcodone-Acetaminophen 7.5-325 MG Oral Tablet 01/25 Provider: ESTHER MIRANDA Diagnosis: Last Documented On 3 1:01PM By Yesi Marion ; [facility] amLODIPine Besylate 10 MG Oral Tablet 01/25/2023 Pro vider: ESTHER MIRANDA Diagnosis: Last Documented On 3 1:01PM By Yesi Marion ; [facility] traMADol HCl 50 MG Oral Tablet 01/21/2023 Provider: ESTHER MIRANDA Diagnosis: Last Documented On 3 1:01PM By Yesi Marion ; [facility] Folic Acid 1 MG Oral Tablet 01/02/2023 Provider: Diagnosis: Last Documented On 3 1:01PM By Yesi Marion ; [facility] Cyclobenzaprine HCl 5 MG [...] On 3 2:11PM By Federico Cabello ; [facility] HYDROcodone-Acetaminophen 5- 325 MG [...] On 4 9:52AM ; [facility], [facility] Caffeine use 12/19/2023 Last Documented On 4 9:52AM ; [facility] No recent change in diet 12/19/2023 Last Documented On 4 9:52AM ; [facility] Not exercising regularly 12/19/2023 Last Documented On 4 9:52AM ; [facility] Not using drugs 12/19/2023 Last Documented On 4 9:52AM ; [facility], [facility] Yes, current smoker. 12/19/2023 Last Documented On 4 9:52AM ; [facility], [facility] Tobacco use 01/30/2023 Last Documented On 4 9:11AM ; [facility], [facility] Smoking Status Unknown Procedures and Surgical History Includes: Procedures from this encounter Procedures Code Diagnosis Performing Provider Service Location Service Date X-RAY EXAM OF LOWER SPINE 4-5 VIEWS 77662 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 w crnt path fx, verteb, 7thD Federico Cabello MD [facility] 12/19/2023 Last Documented On 4 12:53PM ; [facility], [facility] intervention and counseling on cessation of toba senior revenue accountant use 4000F Last Documented On 4 9:11AM ; [facility], [facility] patient screened for future fall risk: documentation of any fall with injury in past year 1100F Last Documented On 4 9:11AM ; [facility], [facility] review of medications documented 1160F Last Documented On 4 9:11AM ; [facility], [facility] an X-ray was performed 91120 Last Documented On 4 9:50AM ; [facility] an MRI was performed [facility] [id number] Last Documented On 4 9:27AM ; [facility], [facility] Surgical History Last Updated History [...] 24 Last Documented On 4 9:51AM ; [facility] [...] Diagnosis NEW PROBLEM/EST PT Federico Cabello MD [facility] 12/19/19 24 9:01AM 9:43AM Overweight Insurance Includes: Active Insurance Policies Plan Name Member ID Group # Subscriber Relationship Effect kelsey Dates 1 - [employer] [id number] Iqra Balbuena Self Clinical Notes Includes: Clinical Notes from this encounter No Clinical Notes Recorded
--- OUTSIDE RECORDS SUMMARY | 2024-05-15 14:15 | XMS_ITS ---
Author Organization [facility] , [facility] Address [address] [place] [address] Phone Care Team Providers Care Double End Tenoner Operator Name Role Phone Rafi PRESCOTT, Maribel Unavailable Unavailable ESTHER MIRANDA Unavailable [phone] Irineo ESPINOZA, Federico Lewis Unavailable [phone] Problems Includes: Active, inactive, and resolved Problems All Visits Onset Date Resolved Date Provider Condition S tatus Lower Back Pain 01/30/2023 Ghulam Vila PA-C A ctive Last Documented On 3 1:01PM ; [facility], [facility] Midback Pain 01/30/2023 Ghulam Vila PA-C Acti ve Last Documented On 3 1:01PM ; [facility], [facility] Plan of Treatment Findings Encounter Date Patient screened for future fall risk: documentation of any fall with injury in past year NEW PROBLEM/EST PT with Federico Cabello MD 12/19/2023 Last Documented On 4 3:28PM ; [facility], [facility] Referrals To Diagnosis Consult with Import Specialist Overw eight Last Documented On 3 1:53PM ; [facility], [facility] Consult with Import Specialist Overw eight Note: STAT to see pulmonolog y Dr. Herrmann if [place] to see if patient can have surgery. She is on O2 and has a T11 compression fracture plan would be for a T11 kypho if cleared. Have clearance sent to Isi Ramesh Last Documented On 3 4:46PM ; [facility], [facility] Consult for Pain Management Toba accounting assistant abuse counseling Note: Wait for note to [...] 12/19/2023 Last Documented On 4 3:28PM ; [facility] Overweight Post Op with Ghulam [...] weight Last Documented On 3 1:11PM ; [facility] Medical Equipment - Implanted Devices Includes: Current and historical Devices No Medical Equipment Recorded Medications Includes: Current and historical Medications Current Medications (continue as prescribed) Calcium Carb-Cholecalciferol 600-5 MG-MCG Oral Tablet 11/26/2023 Provider: Stephanie Espinoza APRN Diagnosis: Last Documented On 4 9:11AM By Isadora Cm ; [facility], [facility] Albuterol Sulfate HFA 108 (9 0 Base) MCG/ACT Inhalation Aerosol Solution 11/26/2023 Provider: Stephanie gibbons APRN Diagnosis: Last Documented On 4 9:11AM By Isadora Cm ; [facility], [facility] Furosemide 40 MG Oral Tablet 11/26/2023 Provider: Diagnosis: Last Documented On 4 9:11AM By Isadora Cm ; [facility], [facility] Lisinopril-hydroCHLOROthiazi de 20-25 MG Oral Tablet 11/26/2023 Provider: ESTHER MIRANDA Diagnosis: Last Documented On 4 9:11AM By Isadora Cm ; [facility] Magnesium Gluconate 500 MG Oral Tablet 11/26/2023 Pr ovider: Stephanie Espinoza APRN Diagnosis: Last Documented On 4 9:11AM By Isadora Cm ; [facility] Vitamin D3 1.25 MG (60518 UT) Oral Capsule 11/26/2023 Provider: Stephanie Espinoza APRN Diagnosis: Last Documented On 4 9:11AM By Isadora Cm ; [facility] Potassium Chloride Isela ER 2 0 MEQ Oral Tablet Extended Release 11/26/2023 Provider: Stephanie Espinoza APRN Diagnosis: Last Documented On 4 9:11AM By Isadora Cm ; [facility] Montelukast Sodium 10 MG Oral Tablet 11/26/2023 Prov ider: Diagnosis: Last Documented On 4 9:11AM By Isadora Cm ; [facility] Bisoprolol Fumarate 10 MG Oral Tablet 11/26/2023 Pro vider: Diagnosis: Last Documented On 4 9:11AM By Isadora Cm ; [facility] Folinic-Plus 4-50-2 MG Oral Tablet 11/12/2023 Provid er: Stephanie Espinoza APRN Diagnosis: Last Documented On 4 9:11AM By Isadora Cm ; [facility] Gabapentin 800 MG Oral Tablet 11/12/2023 Provider: Stephanie Espinoza APRN Diagnosis: Last Documented On 4 9:11AM By Isadora Cm ; [facility] HYDROcodone-Acetaminophen 7.5-325 MG Oral Tablet 01/25 Provider: ESTHER MIRANDA Diagnosis: Last Documented On 3 1:01PM By Yesi Marion ; [facility] amLODIPine Besylate 10 MG [...] On 4 9:12AM By Isadora Cm ; [facility] HYDROcodone-Acetaminophen 5- 325 [...] On 3 12:16PM By Federico Cabello ; [facility] HYDROcodone-Acetaminophen 5- 325 MG Oral Tablet 02/28/2023 - 03/13/2023 Provider: Federico Cabello MD Diagnosis: Take 1 tablet every 8 hrs prn pain Last Documented On 3 3:41PM By Federico Cabello ; [facility] HYDROcodone-Acetaminophen 5- 325 MG Oral Tablet 02/19/2023 - 03/04/2023 Provider: Federico Cabello MD Diagnosis: Take 1 tablet every 8 hrs prn pain Last Documented On 3 2:11PM By Federico Cabello ; [facility] HYDROcodone-Acetaminophen 5- 325 MG Oral Tablet 02/06/2023 - 02/19/2023 Provider: Federico Cabello MD Diagnosis: Take 1 tablet every 8 hrs prn pain Last Documented On 3 2:54PM By Federico Cabello ; [facility], [facility] Albuterol Sulfate HFA 108 (9 0 Base) MCG/ACT Inhalation Aerosol Solution 01/24/2023 - 12/19/2023 Provider: ESTHER MIRANDA Diagnosis: Last Documented On 4 9:12AM By Isadora Cm ; [facility], [facility] Bisoprolol Fumarate 10 MG Or al Tablet 01/15/2023 - 12/19/2023 Provider: ESTHER MIRANDA Diagnosis: Last Documented On 4 9:12AM By Isadora Cm ; [facility], [facility] Montelukast Sodium 10 MG Oral Tablet 01/15/2023 - 12/2023 Provider: ESTHER MIRANDA Diagnosis: Last Documented On 4 9:12AM By Isadora Cm ; [facility], [facility] Gabapentin 600 MG Oral Tablet 01/13/2023 - 12/19/2023 Provider: ESTHER MIRANDA Diagnosis: Last Documented On 4 9:12AM By Isadora Cm ; [facility], [facility] Medications Administered Includes: Administered Medications in patient's chart No Administered Medications Recorded Vital Signs Includes: Vital Signs from 05/15/2023 through 05/15/2024 Vital Name 12/19/2023 09:25A 05/15/2023 08: 49A Height (in) 62 62 Weight (lb) 120 136 Body Mass Index 21.9 24.9 Body Surface Area 1.5 1.6 Pain Level 10 Note: lc Last Documented: On 12/19/2023 9:25AM ; [facility] On 05/15/2023 8:49AM ; [facility] Results Includes: Results from 05/15/2023 through 05/15/2024 No Results Recorded For Specified Dates History of Present Illness History of Present Illness not supported for this document type No History of Present Illness Recorded Social History Description Last Updated Tobacco use 01/30/2023 Last Documented On 3 8:46AM ; [facility] Smoking Status Unknown Procedures and Surgical History Includes: Procedures from 05/15/2023 through 05/15/2024 Procedures Code Diagnosis Performing Provider Service Location Service Date X-RAY EXAM OF LOWER SPINE 4-5 VIEWS 76246 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 w crnt path fx, verteb, 7thD Federico Cabello MD [facility] 12/19/2023 Last Documented On 12:53PM ; [facility] Medical History Includes: Medical History in [...] No Known Allergies Encounters Includes: Encounters from 05/15/2023 through 05/15/2024 Encounter Provider Location Date Check-In Time Check-Out Time Diagnosis NEW PROBLEM/EST PT Federico Cabello MD [facility] 12/19/19 24 9:01AM 9:43AM Overweight Post Op Ghulam Vila PA-C [facility] 05/15/20 23 8:46AM 8:59AM Overweight Insurance Includes: Active Insurance Policies Plan Name Member ID Group # Subscriber Relationship Effect kelsey Dates 1 - [employer] [id number] Iqra Balbuena Self Clinical Notes Includes: Signed Clinical Notes starting from 06/28/2022 * Progress note Date Encounter Last Documented by 05/15/2023 Post Op Last documented on 05/15/2023; 9:01 AM, Ghulam Vila PA-C; [facility], [facility] Active Problems & Conditions - Lower [...]
--- OUTSIDE RECORDS SUMMARY | 2024-05-15 14:16 | XMS_ITS | Clinical Summary ---
Author Organization [facility] , [facility] Address [address] [place] [address] Phone Care Team Providers Care Invasive Physician Name Role Phone Rafi PRESCOTT, Maribel Unavailable Unavailable ESTHER MIRANDA Unavailable [phone] Irineo ESPINOZA, Federico Lewis Unavailable [phone] Reason for Visit and Chief Complaint [Patient Encounter] Problems Includes: Problems addressed during this encounter and other active Problems All Visits Onset Date Resolved Date Provider Condition S tatus Lower Back Pain 01/30/2023 Ghulam Lewis ctive Last Documented On 3 1:01PM ; [facility], [facility] Midback Pain 01/30/2023 Ghulam Vila PA-C Acti ve Last Documented On 3 1:01PM ; [facility], [facility] Plan of Treatment No Plan of [...] tablet every 8 hrs prn pain Pharmacy: [facility] - [address] [place] [address] [address], [id number] - Last Documented On 3 3:26PM By Federico Cabello ; [facility], [facility] Current Medications (continue as prescribed) Calcium Carb-Cholecalciferol 600-5 MG-MCG Oral Tablet 11/26/2023 Provider: Stephanie Espinoza APRN Diagnosis: Last Documented On 4 9:11AM By Isadora Cm ; [facility] Albuterol Sulfate HFA 108 (9 0 Base) MCG/ACT Inhalation Aerosol Solution 11/26/2023 Provider: Stephanie gibbons APRN Diagnosis: Last Documented On 4 9:11AM By Isadora Cm ; [facility] Furosemide 40 MG Oral Tablet 11/26/2023 Provider: Diagnosis: Last Documented On 4 9:11AM By Isadora Cm ; [facility] Lisinopril-hydroCHLOROthiazi de 20-25 MG Oral Tablet 11/26/2023 Provider: ESTEHR MIRANDA Diagnosis: Last Documented On 4 9:11AM By Isadora Cm ; [facility] Magnesium Gluconate 500 MG Oral Tablet 11/26/2023 Pr ovider: Stephanie Espinoza APRN Diagnosis: Last Documented On 4 9:11AM By Isadora Cm ; [facility], [facility] Vitamin D3 1.25 MG (31994 UT) Oral Capsule 11/26/2023 Provider: Stephanie Espinoza APRN Diagnosis: Last Documented On 4 9:11AM By Isadora Cm ; [facility], [facility] Potassium Chloride Isela ER 2 0 MEQ Oral Tablet Extended Release 11/26/2023 Provider: Stephanie Espinoza APRN Diagnosis: Last Documented On 4 9:11AM By Isadora Cm ; [facility] Montelukast Sodium 10 MG Oral Tablet 11/26/2023 Prov ider: Diagnosis: Last Documented On 4 9:11AM By Isadora Cm ; [facility] Bisoprolol Fumarate 10 MG Oral Tablet 11/26/2023 Pro vider: Diagnosis: Last Documented On 4 9:11AM By Isadora Cm ; [facility] Folinic-Plus 4-50-2 MG Oral [...] Relationship Effect kelsey Dates 1 - [employer] [id number] Iqra Balbuena Self Clinical Notes Includes: Clinical Notes from this encounter No Clinical Notes Recorded
--- OUTSIDE RECORDS SUMMARY | 2024-05-15 14:16 | XMS_ITS | Clinical Summary ---
Author Organization [facility] , [facility] Address [address] [place] [address] Phone Care Team Providers Care Marketing Project Coordinator Name Role Phone Rafi PRESCOTT, Maribel Unavailable Unavailable ESTHER MIRANDA Unavailable [phone] Irineo ESPINOZA, Federico Lewis Unavailable [phone] Reason for Visit and Chief Complaint Kyphoplasty Problems Includes: Problems addressed during this encounter and other active Problems All Visits Onset Date Resolved Date Provider Condition S tatus Lower Back Pain 01/30/2023 Ghulam Vila PA-C A ctive Last Documented On 3 1:01PM ; [facility], [facility] Midback Pain 01/30/2023 Ghulam Vila PA-C Acti ve Last Documented On 3 1:01PM ; [facility] Plan of Treatment No Plan [...] prn pain Pharmacy: [facility] - [address] [place] [address] [address], [id number] - Last Documented On 3 4:19PM By Federico Cabello ; [facility], [facility] Current Medications (continue as prescribed) Calcium Carb-Cholecalciferol 600-5 MG-MCG Oral Tablet 11/26/2023 Provider: Stephanie Espinoza APRN Diagnosis: Last Documented On 4 9:11AM By Isadora Cm ; [facility] Albuterol Sulfate HFA 108 (9 0 Base) MCG/ACT Inhalation Aerosol Solution 11/26/2023 Provider: Stephanie gibbons APRN Diagnosis: Last Documented On 4 9:11AM By Isadora Cm ; [facility] Furosemide 40 MG Oral Tablet 11/26/2023 Provider: Diagnosis: Last Documented On 4 9:11AM By Isadora Cm ; [facility] Lisinopril-hydroCHLOROthiazi de 20-25 MG Oral Tablet 11/26/2023 Provider: ESTHER MIRANDA Diagnosis: Last Documented On 4 9:11AM By Isadora Cm ; [facility] Magnesium Gluconate 500 MG Oral Tablet 11/26/2023 Pr ovider: Stephanie Espinoza APRN Diagnosis: Last Documented On 4 9:11AM By Isadora Cm ; [facility] Vitamin D3 1.25 MG (40884 UT) Oral Capsule 11/26/2023 Provider: Stephanie Espinoza APRN Diagnosis: Last Documented On 4 9:11AM By Isadora Cm ; [facility] Potassium Chloride Isela ER 2 0 MEQ Oral Tablet Extended Release 11/26/2023 Provider: Stephanie Espinoza APRN Diagnosis: Last Documented On 4 9:11AM By Isadora Cm ; [facility] Montelukast Sodium 10 MG Oral Tablet 11/26/2023 Prov ider: Diagnosis: Last Documented On 4 9:11AM By Isadora Cm ; [facility] Bisoprolol Fumarate 10 MG Oral Tablet 11/26/2023 Pro vider: Diagnosis: Last Documented On 4 9:11AM By Isadora Cm ; [facility] Folinic-Plus 4-50-2 MG Oral Tablet 11/12/2023 Provid er: Stephanie Espinoza APRN Diagnosis: Last Documented On 4 9:11AM By Isadora Cm ; [facility], [facility] Gabapentin 800 MG Oral Tablet 11/12/2023 Provider: Stephanie Espinoza APRN Diagnosis: Last Documented On 4 9:11AM By Isadora Cm ; [facility] HYDROcodone-Acetaminophen 7.5-325 MG Oral Tablet 01/25 Provider: ESTHER MIRANDA Diagnosis: Last Documented On 3 1:01PM By Yesi Marion ; [facility], [facility] amLODIPine Besylate 10 MG Oral Tablet 01/25/2023 Pro vider: ESTHER RUTH Diagnosis: Last Documented On 3 1:01PM By Yesi Marion ; [facility], [facility] traMADol HCl 50 MG Oral Tablet 01/21/2023 Provider: ESTHER MIRANDA Diagnosis: Last Documented On 3 1:01PM By Yesi Marion ; [facility], [facility] Folic Acid 1 MG Oral Tablet 01/02/2023 Provider: Diagnosis: Last Documented On 3 1:01PM By Yesi Marion ; [facility], [facility] Cyclobenzaprine HCl 5 MG Oral Tablet 01/01/2023 Prov ider: ESTHERNestor MIRANDA Diagnosis: Last Documented On 3 1:01PM By Yesi Marion ; [facility], [facility] Medications Administered Includes: Administered Medications [...] Check-Out Time Diagnosis Kyphoplasty Federico Cabello MD [facility] 05/06/20 7:06AM 9:05AM Insurance Includes: Active Insurance Policies Plan Name Member ID Group # Subscriber Relationship Effect kelsey Dates 1 - [employer] [id number] Iqra Balbuena Self Clinical Notes Includes: Clinical Notes from this encounter No Clinical Notes Recorded
--- OUTSIDE RECORDS SUMMARY | 2024-05-15 14:16 | XMS_ITS | Clinical Summary ---
Author Organization [facility] , [facility] Address [address] [place] [address] Phone Care Team Providers Care Performing Arts Technicians Name Role Phone Rafi PRESCOTT, Maribel Unavailable Unavailable ESTHER MIRANDA Unavailable [phone] Federico Cabello MD Unavailable [phone] Reason for Visit and Chief Complaint The Chief Complaint is: Mid-Low back pain Problems Includes: Problems addressed during this encounter and other active Problems All Visits Onset Date Resolved Date Provider Condition S tatus Lower Back Pain 01/30/2023 Ghulam Vila PA-C A ctive Last Documented On 3 1:01PM ; [facility] Midback Pain 01/30/2023 Ghulam Vila PA-C Acti ve Last Documented On 3 1:01PM ; [facility] Plan of Treatment Fall Risk [...] - Last Documented On 05/15/2023 9:01AM ; [facility] Patient was seen by myself [...] - Last Documented On 05/15/2023 9:01AM ; [facility], [facility] Instructions to patient Intervention and counseling on cessation of tobacco use Last Documented On 3 8:48AM ; [facility], [facility] Lose weight Last Documented On 3 8:48AM ; [facility], [facility] Assessments Includes: Assessments from this encounter Findings - Overweight - Last Documented On 05/15/2023 9:01AM ; [facility], [facility] T12 kyphoplasty 05/06/2023 - Last Documented On 05/15/2023 9:01AM ; [facility], [facility] Instructions Includes: Instructions from this encounter Instructions to patient Intervention and counseling on cessation of tobacco use Last Documented On 3 8:48AM ; [facility], [facility] Lose weight Last Documented On 3 8:48AM ; [facility], [facility] Medical Equipment - Implanted Devices Includes: Current Devices No Medical Equipment Recorded Medications Includes: Medications discussed during this encounter and other current Medications Current Medications (continue as prescribed) Calcium Carb-Cholecalciferol 600-5 MG-MCG Oral Tablet 11/26/2023 Provider: Stephanie Espinoza APRN Diagnosis: Last Documented On 4 9:11AM By Isadora Cm ; [facility], [facility] Albuterol Sulfate HFA 108 (9 0 Base) MCG/ACT Inhalation Aerosol Solution 11/26/2023 Provider: Stephanie gibbons APRN Diagnosis: Last Documented On 4 9:11AM By Isadora Cm ; [facility], [facility] Furosemide 40 MG Oral Tablet 11/26/2023 Provider: Diagnosis: Last Documented On 4 9:11AM By Isadora Cm ; [facility], [facility] Lisinopril-hydroCHLOROthiazi de 20-25 MG Oral Tablet 11/26/2023 Provider: ESTHER MIRANDA Diagnosis: Last Documented On 4 9:11AM By Isadora Cm ; [facility], [facility] Magnesium Gluconate 500 MG Oral Tablet 11/26/2023 Pr ovider: Stephanie Espinoza APRN Diagnosis: Last Documented On 4 9:11AM By Isadora Cm ; [facility] Vitamin D3 1.25 MG (50330 UT) Oral Capsule 11/26/2023 Provider: Stephanie Espinoza [...] lc Last Documented: On 05/15/2023 8:49AM ; [facility] Results Includes: Results discussed during this [...] 01/30/2023 Last Documented On 3 8:48AM ; [facility] Smoking Status Unknown Procedures and Surgical History Includes: Procedures from this encounter Procedures Code Diagnosis Performing Provider Service L ocation Service Date intervention and counseling on cessation of tobacco use 4000F Last Documented On 3 8:48AM ; [facility] patient screened for future fall risk: documentation of any fall with injury in past year 1100F Last Documented On 3 8:48AM ; [facility] review of medications documented 1160F Last Documented On 3 8:48AM ; [facility], [facility] Medical History Includes: Medical History addressed [...] Time Diagnosis Post Op Ghulam Vila PA-C [facility] 3 8:46AM 8:59AM Overweight Insurance Includes: Active Insurance Policies Plan Name Member ID Group # Subscriber Relationship Effect kelsey Dates 1 - [employer] [id number] Iqra Balbuena Self Clinical Notes Includes: Clinical Notes from this encounter * Progress note Date Encounter Last Documented by 05/15/2023 Post Op Last documented on 05/15/2023; 9:01 AM, Ghulam Vila PA-C; [facility] Active Problems & Conditions - [...]
--- OUTSIDE RECORDS SUMMARY | 2024-05-15 14:16 | XMS_ITS | Clinical Summary ---
Author Organization [facility] , [facility] Address [address] [place] [address] Phone Care Team Providers Care Lithographers Printer Name Role Phone Rafi PRESCOTT, Maribel Unavailable Unavailable ESTHER MIRANDA Unavailable [phone] Federico Cabello MD Unavailable [phone] Reason for Visit and Chief Complaint [Patient Encounter] Problems Includes: Problems addressed during this encounter and other active Problems All Visits Onset Date Resolved Date Provider Condition S tatus Lower Back Pain 01/30/2023 Ghulam Lewis ctive Last Documented On 3 1:01PM ; [facility] Midback Pain 01/30/2023 Ghulam Vila PA-C Acti ve Last Documented On 3 1:01PM ; [facility], [facility] Plan of Treatment No Plan of [...] On 4 9:11AM By Isadora Cm ; [facility], [facility] Albuterol Sulfate HFA 108 (9 0 Base) MCG/ACT Inhalation Aerosol Solution 11/26/2023 Provider: Stephanie gibbons APRN Diagnosis: Last Documented On 4 9:11AM By Isadora Cm ; [facility], [facility] Furosemide 40 MG Oral Tablet 11/26/2023 Provider: Diagnosis: Last Documented On 4 9:11AM By Isadora Cm ; [facility] Lisinopril-hydroCHLOROthiazi de 20-25 MG Oral Tablet 11/26/2023 Provider: ESTHER MIRANDA Diagnosis: Last Documented On 4 9:11AM By Isadora Cm ; [facility] Magnesium Gluconate 500 MG Oral Tablet 11/26/2023 Pr ovider: Stephanie Espinoza APRN Diagnosis: Last Documented On 4 9:11AM By Isadora Cm ; [facility] Vitamin D3 1.25 MG (15225 UT) Oral Capsule 11/26/2023 Provider: Stephanie Espinoza APRN Diagnosis: Last Documented On 4 9:11AM By Isadora Cm ; [facility] Potassium Chloride Isela ER 2 0 MEQ Oral Tablet Extended Release 11/26/2023 Provider: Stephanie Espinoza APRN Diagnosis: Last Documented On 4 9:11AM By Isadora Cm ; [facility] Montelukast Sodium 10 MG Oral Tablet 11/26/2023 Prov ider: Diagnosis: Last Documented On 4 9:11AM By Isadora Cm ; [facility] Bisoprolol Fumarate 10 MG Oral Tablet 11/26/2023 Pro vider: Diagnosis: Last Documented On 4 9:11AM By Isadora Cm ; [facility] Folinic-Plus 4-50-2 MG Oral Tablet 11/12/2023 Provid er: Stephanie Espinoza APRN Diagnosis: Last Documented On 4 9:11AM By Isadora Cm ; [facility] Gabapentin 800 MG Oral Tablet 11/12/2023 Provider: Stephanie Espinoza APRN Diagnosis: Last Documented On 4 9:11AM By Isadora Cm ; [facility] HYDROcodone-Acetaminophen 7.5-325 MG [...] Relationship Effect kelsey Dates 1 - [employer] [id number] Iqra Nuñez Clinical Notes Includes: Clinical Notes from this encounter No Clinical Notes Recorded
--- NOTE | 2024-05-15 14:22 | ED_ITS ---
<Statement entered by Rita Cárdenas MD - 05/15/24 16:22> I was consulted by the ASHOK, and we discussed the complexity of problems being addressed. I approved the treatment and management plan for this patient's care in the emergency department, thus performing a substantial portion of the medical decision making. ECG personally turbid to demonstrate sinus rhythm, right axis deviation, rate 99, normal OR and QTc, no STEMI, stable from previous ECG which I reviewed On my evaluation of the patient, she is significant pitting edema of the bilateral lower extremities which she state has been worse in the last few days. She is nontender to palpation. She does have venous stasis changes. BNP elevated but improved from prior. She is also hypomagnesemic so I ordered magnesium. Patient admits to being poorly compliant with her diuretic. She received IV furosemide in the ER. No findings of cellulitis on exam clinically, no WBC count, no fever. Patient given instructions for continued use of her furosemide, encouraged to take this daily as prescribed and not skip doses, she was also encouraged to wear compression stockings and other home conservative management. She was discharged in stable condition. Rita Cárdenas MD Discharge Plan Disposition Patient Disposition: Home, Self-Care Condition: Good Prescriptions Prescriptions: No Action ipratropium-albuterol 0.5 mg-3 mg(2.5 mg base)/3 mL solution for nebulization 3 ml INHALATION QIDP PRN (Reason: Shortness Of Breath) prednisone 20 mg tablet 40 mg PO DAILY 2 Days Qty: 4 0RF fluticasone propion-salmeterol [Advair Diskus] 250-50 mcg/dose blister with device 1 inh INHALATION BID alprazolam 1 mg tablet 1 mg PO BID montelukast 10 mg tablet 10 mg PO DAILY losartan 100 mg tablet 100 mg PO DAILY celecoxib 50 mg capsule 50 mg PO DAILY duloxetine 30 mg capsule,delayed release(DR/EC) 30 mg PO DAILY calcium carbonate-vitamin D3 600 mg-5 mcg (200 unit) tablet 1 tab PO BID Rx Instructions: with meals hydrocodone-acetaminophen 10-325 mg tablet 1 tab PO DAILY gabapentin 800 mg tablet 800 mg PO DAILY magnesium gluconate 27 mg magnesium (500 mg) tablet 500 mg PO DAILY cholecalciferol (vitamin D3) 1,250 mcg (50,000 unit) capsule 1,250 mcg PO WEEKLY Rx Instructions: 1 capsule po weekly albuterol sulfate 90 mcg/actuation HFA aerosol inhaler 2 inh INHALATION NEEDED PRN (Reason: SOA) potassium chloride 20 mEq tablet,ER particles/crystals 40 meq PO BID Rx Instructions: with food amlodipine 10 mg Tablet 10 mg PO DAILY Qty: 30 0RF doxycycline hyclate 100 mg Tablet 100 mg PO BID 3 Days Qty: 6 0RF glycerin (adult) [Fleet Glycerin (Adult)] Suppository 1 supp OR DAILY PRN (Reason: constipation) Qty: 12 0RF polyethylene glycol 3350 [HealthyLax] 17 gram Powder In Packet 17 g PO DAILY Qty: 30 0RF Referrals Follow up/Referrals: Stephanie Espinoza APRN [Primary Care Provider] - See instructions Activity Restrictions/Add. Instructions Additional Instructions/Restrictions: Scription for LasixPlease get and wear compression stockings and keep your legs elevated above the level of your heart to help reduce the edema. And take it as directed. Follow-up with your PCP for no improvement or worsening signs or symptoms as needed or return to the ER Clinical Impressions Clinical Impression: Lymphedema Instructions Patient Instructions: DI for Lymphedema Print Language Print Language: Thai Discharge ED Provider: Rita Cárdenas General Adult HPI <AKHIL Wright - Last Filed: 05/15/24 16:24> General Chief complaint: PAIN Stated complaint: feet swollen Time Seen by Provider: 05/15/24 14:04 Mode of Arrival: Wheelchair Source of Information: Patient Limitations: No Limitations Description of Symptoms (Recalled from ER Triage Doc. by RN): pt presents to ED with c/o bilateral feet swelling. pt reports symptoms ongoing for the past 3-4 days. pt does take a fluid pill daily, pt states that she did not take it today. History of Present Illness HPI narrative: Patient presents for bilateral foot pain. Patient called her PCP to tell her that her feet were hurting and her PCP sent her to the ER for evaluation. Patient states that she never has feet swelling this bad . She denies any fever chills hemoptysis hematochezia melena nausea vomit diarrhea. Patient is supposed to be taking Lasix every day but she did not take it today. She has a history of a lung mass COPD chronic hypoxemic respiratory failure on chronic oxygen, hypertension 30-year pack history of smoking peripheral neuropathy but denies a history of heart failure. Related Data Home Medications ?Medication ?Instructions ?Recorded ?Confirmed ipratropium 0.5 mg-albuterol 3 mg 3 ml inhalation QIDP PRN Shortness 07/03/21 04/15/24 (2.5 mg base)/3 mL nebulization Of Breath soln fluticasone 250 mcg-salmeterol 50 1 inh inhalation BID COPD 04/19/22 04/15/24 mcg/dose blistr powdr for inhalation (Advair Diskus) albuterol sulfate 90 mcg/actuation 2 inh inhalation NEEDED PRN SOA 04/15/24 04/15/24 aerosol inhaler alprazolam 1 mg tablet 1 mg PO BID 04/15/24 04/15/24 calcium 600 mg (as 1 tab PO BID 04/15/24 04/15/24 carbonate)-vitamin D3 5 mcg (200 unit) tablet celecoxib 50 mg capsule 50 mg PO DAILY 04/15/24 04/15/24 cholecalciferol (vitamin D3) 1,250 1,250 mcg PO WEEKLY 04/15/24 04/15/24 mcg (50,000 unit) capsule duloxetine 30 mg capsule,delayed 30 mg PO DAILY 04/15/24 04/15/24 release gabapentin 800 mg tablet 800 mg PO DAILY 04/15/24 04/16/24 hydrocodone 10 mg-acetaminophen 1 tab PO DAILY 04/15/24 04/16/24 325 mg tablet losartan 100 mg tablet 100 mg PO DAILY 04/15/24 04/16/24 magnesium gluconate 27 mg 500 mg PO DAILY 04/15/24 04/15/24 magnesium (500 mg) tablet montelukast 10 mg tablet 10 mg PO DAILY 04/15/24 04/15/24 potassium chloride 20 mEq 40 meq PO BID 04/15/24 04/15/24 tablet,extended release(part/cryst) Previous Rx's ?Medication ?Instructions ?Recorded amlodipine 10 mg tablet 10 mg PO DAILY #30 tabs 04/16/24 doxycycline hyclate 100 mg tablet 100 mg PO BID 3 days #6 tabs 04/16/24 glycerin (adult) (Fleet Glycerin 1 supp OR DAILY PRN constipation 04/16/24 (Adult) rectal suppository) #12 ea polyethylene glycol 3350 17 gram 17 g PO DAILY #30 ea 04/16/24 oral powder packet (HealthyLax) prednisone 20 mg tablet 40 mg (2 x 20 mg) PO DAILY 2 days 05/01/24 #4 tabs Allergies Allergy/AdvReac Type Severity Reaction Status Date / Time No Known Allergies Allergy Verified 02/12/24 15:46 PFSH <AKHIL Wright - Last Filed: 05/15/24 16:24> [facility] Disclaimer: The information contained in this section may have been updated after the patient was seen, as this information can be updated by other users. Medical History (Updated 05/15/24 @ 16:13 by AKHIL Wright) COPD mixed type Lung nodule Hypokalemia Elevated troponin COPD (chronic obstructive pulmonary disease) Nocturnal hypoxemia Pulmonary emphysema Incidental pulmonary nodule, greater than or equal to 8mm Smoking greater than 30 pack years Dyspnea on exertion Tobacco abuse disorder Tobacco abuse counseling COPD (chronic obstructive pulmonary disease) Cervical cancer Surgical History History of dilation and curettage History of back surgery Family History Other Diabetes Social History Smoking Status: Current every day smoker tobacco type: cigarettes packs per day: 2 second hand exposure: Yes alcohol intake: current alcohol intake frequency: 0-2 drinks per day current occupational status: unemployed Travel in the last 8 weeks: None household members: spouse housing: house current occupational exposures/hazards: No Other Medical History Have you received the Flu Vaccine for this season: No Have you received the Pneumonia Vaccine: No <AKHIL Wright - Last Filed: 05/15/24 16:24> ROS Obtained: Yes Systems reviewed as appropriate & no additional complaints except as documented Physical Exam <AKHIL Wright - Last Filed: 05/15/24 16:24> General General appearance: alert and in no apparent distress Respiratory Respiratory exam: Present normal lung sounds bilaterally Cardiovascular Cardiovascular exam: Present regular rate Neurological Exam Neurological exam: Present alert and oriented X3 Medical Decision Making <AKHIL Wright - Last Filed: 05/15/24 16:24> Medical Records Medical records reviewed: Yes I reviewed the patient's medical records. Screening: Per USPSTF and CDC recommendations, given the prevalence of disease in our region, it is our hospital?s policy to screen for HIV and viral Hepatitis for all patients aged 18 and over and those with ongoing risk factors. Azael Inquiry Pt receiving controlled substance: No Vital Signs: 05/15/24 13:54 Temperature 97.5 F L Temperature Source Oral Pulse Rate [Left Radial] 104 H Respiratory Rate 13 Blood Pressure [Right Arm] 130/77 Blood Pressure Mean [Right Arm] 94 02 Sat by Pulse Oximetry 94 L Oxygen Delivery Method Room Air Lab Data Lab results reviewed: Yes I reviewed the patient's lab results. Lab Results 05/15/24 14:20: WBC 9.4, RBC 4.09 L, Hgb 13.3, Hct 40.6, MCV 99.4 H, MCH 32.5 H, MCHC 32.7, RDW 12.8, Plt Count 280, MPV 6.9 L, Neut % (Auto) 60.6, Lymph % (Auto) 29.5, [place] % (Auto) 4.6, Eos % (Auto) 2.2, Baso % (Auto) 3.1 H, Neut # (Auto) 5.7, Lymph # (Auto) 2.8, [place] # (Auto) 0.4, Eos # (Auto) 0.2, Baso # (Auto) 0.3 H, PT 9.8 L, INR 0.86 L, Sodium 136, Potassium 4.1, Chloride 98, C arbon Dioxide 35 H, Anion Gap 7.1, BUN 10, Creatinine 0.80, Estimated Creat Clear 46, Estimated GFR 71, Est GFR ( Amer) 86, Glucose 105 H, Calcium 10.7 H, Magnesium 1.4 L, Total Bilirubin 0.4, AST 26, ALT 12, Alkaline Phosphatase 57, NT-Pro-B Natriuret Pep 189 H, Total Protein 6.7, Albumin 3.9, Globulin 2.8, Albumin/Globulin Ratio 1.4, TSH 2.01, Free T4 Index 2.5 L, Thyroxine (T4) 7.4, T3 Uptake 34 05/15/24 14:20 05/15/24 14:20 Orders (Tests/Meds): ED MEDICATIONS Discontinued Medications Generic Name Dose Route Start Last Admin Trade Name Freq PRN Reason Stop Dose Admin Acetaminophen 1,000 mg 05/15/24 14:26 05/15/24 14:30 Acetaminophen 500mg Tab PO 05/15/24 14:27 1,000 mg ONCE ONE Administration Furosemide 40 mg 05/15/24 16:10 Furosemide 40mg/4ml Vial IV 05/15/24 16:11 ONCE ONE Magnesium Sulfate 2 gm in 50 mls @ 50 mls/hr 05/15/24 15:01 05/15/24 15:12 Magnesium Sulfate 2gm/50ml Premix IV 05/15/24 16:00 50 mls/hr ONCE ONE Administration ORDERS Category Date Time Status BNP [NT Pro Brain Natriuretic Pep.] Stat Lab 05/15/24 14:20 Completed CBC w/Auto Diff [Complete Blood Count Auto Diff] Stat Lab 05/15/24 14:20 Completed CMP [Comprehensive Metabolic Panel] Stat Lab 05/15/24 14:20 Completed INR [Prothrombin Time INR] Stat Lab 05/15/24 14:20 Completed Magnesium Stat Lab 05/15/24 14:20 Completed Thyroid Panel Stat Lab 05/15/24 14:20 Completed UA [Urinalysis and Microscopic] Stat Lab 05/15/24 14:27 Ordered ECG Request Stat Y 05/15/24 16:15 Ordered Medical Decision Narrative: In summary patient is a 69-year-old female who presents to the emergency department for evaluation of bilateral feet pain. Patient is normotensive with a blood pressure 130/77 pulse 104 respiratory rate is 13 O2 sats 94% on room air upon arrival, afebrile. Physical exam is remarkable for 3++ dependent pitting edema to the level of the knee with significant dorsal pedal bulla right greater than left and they appeared dusky red and there is no lymphangitis and they are exquisitely tender to palpation. Patient has normal breath sounds normal heart sounds no posterior calf tenderness or palpable cords. Differential diagnosis includes lymphedema versus heart failure versus cellulitis etc. Initial workup will be conducted with hematologic labs EKG plain, chest x-ray. Initial interventions include Tylenol for now as patient is on chronic opiates. Initial workup reviewed by me are reassuring patient has low magnesium which has been repleted and the remainder of her hematologic labs are nonactionable including only minimally elevated NT proBNP of 189. Upon repeat evaluation patient was sleeping in the chair and when I woke her she said that her pain had been better. She also admitted that she had not been taking her Lasix as she is prescribed as she does not like to pee so much . Had an interactive discussion with the patient regarding the benefits and risk of not doing so and she verbalized that she understood.. Given this patient is appropriate for discharge with recommendations for compression stockings, elevation of her legs above the level of the heart and compliance with her Lasix regimen with follow- up with her PCP in 48 hours. <Rita Cárdenas MD - Last Filed: 05/15/24 15:16> Vital Signs: 05/15/24 13:54 Temperature 97.5 F L Temperature Source Oral Pulse Rate [Left Radial] 104 H Respiratory Rate 13 Blood Pressure [Right Arm] 130/77 Blood Pressure Mean [Right Arm] 94 02 Sat by Pulse Oximetry 94 L Oxygen Delivery Method Room Air Lab Data Lab Results 05/15/24 14:20: WBC 9.4, RBC 4.09 L, Hgb 13.3, Hct 40.6, MCV 99.4 H, MCH 32.5 H, MCHC 32.7, RDW 12.8, Plt Count 280, MPV 6.9 L, Neut % (Auto) 60.6, Lymph % (Auto) 29.5, [place] % (Auto) 4.6, Eos % (Auto) 2.2, Baso % (Auto) 3.1 H, Neut # (Auto) 5.7, Lymph # (Auto) 2.8, [place] # (Auto) 0.4, Eos # (Auto) 0.2, Baso # (Auto) 0.3 H, PT 9.8 L, INR 0.86 L, Sodium 136, Potassium 4.1, Chloride 98, C arbon Dioxide 35 H, Anion Gap 7.1, BUN 10, Creatinine 0.80, Estimated Creat Clear 46, Estimated GFR 71, Est GFR ( Amer) 86, Glucose 105 H, Calcium 10.7 H, Magnesium 1.4 L, Total Bilirubin 0.4, AST 26, ALT 12, Alkaline Phosphatase 57, NT-Pro-B Natriuret Pep 189 H, Total Protein 6.7, Albumin 3.9, Globulin 2.8, Albumin/Globulin Ratio 1.4, TSH 2.01, Free T4 Index 2.5 L, Thyroxine (T4) 7.4, T3 Uptake 34 Orders (Tests/Meds): ED MEDICATIONS Discontinued Medications Generic Name Dose Route Start Last Admin Trade Name Anatoly PRN Reason Stop Dose Admin Acetaminophen 1,000 mg 05/15/24 14:26 05/15/24 14:30 Acetaminophen 500mg Tab PO 05/15/24 14:27 1,000 mg ONCE ONE Administration Furosemide 40 mg 05/15/24 16:10 Furosemide 40mg/4ml Vial IV 05/15/24 16:11 ONCE ONE Magnesium Sulfate 2 gm in 50 mls @ 50 mls/hr 05/15/24 15:01 05/15/24 15:12 Magnesium Sulfate 2gm/50ml Premix IV 05/15/24 16:00 50 mls/hr ONCE ONE Administration ORDERS Category Date Time Status BNP [NT Pro Brain Natriuretic Pep.] Stat Lab 05/15/24 14:20 Completed CBC w/Auto Diff [Complete Blood Count Auto Diff] Stat Lab 05/15/24 14:20 Completed CMP [Comprehensive Metabolic Panel] Stat Lab 05/15/24 14:20 Completed INR [Prothrombin Time INR] Stat Lab 05/15/24 14:20 Completed Magnesium Stat Lab 05/15/24 14:20 Completed Thyroid Panel Stat Lab 05/15/24 14:20 Completed UA [Urinalysis and Microscopic] Stat Lab 05/15/24 14:27 Ordered ECG Request Stat Y 05/15/24 16:15 Ordered Medical Decision Narrative: In summary patient is a 69-year-old female who presents to the emergency department for evaluation of bilateral feet pain. Patient is normotensive with a blood pressure 130/77 pulse 104 respiratory rate is 13 O2 sats 94% on nasal cannula upon arrival, [febrile/afebrile]. [Unremarkable physical exam, nonfocal exam versus focal remarkable exam]. Differential diagnosis includes [DDx]. Initial workup will be conducted with [hematologic labs, imaging, respiratory swab, describe workup]. Initial interventions include [crystalloid bolus, medications, p.o. challenge, etc.] initial workup reviewed by me [hematologic labs are remarkable for... Imaging remarkable for... Urinalysis remarkable for]. Upon repeat evaluation [patient had acceptable resolution of symptoms, had persistent pain for which additional interventions were conducted (describe interventions), tolerated p.o., was ambulatory, etc.]. Given this [patient is appropriate for discharge at this time and will be discharged with a prescription for... The case was discussed with hospital medicine regarding management and they will admit the patient their service for continued evaluation at this time... Etc.] Places where you can increase complexity: I informally interpreted the patient's chest x-ray or CT read and is remarkable for... Documenting what the substation designer shows with rate and rhythm Consideration of test but deferring. Ex: I considered chest x-ray on this patient however given that they have no oxygen requirement and are clear to auscultation all lung newman will be deferred. Social determinants of health: Given that patient is undomiciled increases complexity. Given that patient has polysubstance abuse compounds all aspects of care Critical Care <AKHIL Wright - Last Filed: 05/15/24 16:24> Critical Care Time Critical Care Time: No
[2024-05-15] MEDS: ACETAMINOPHEN 500MG TAB 1000 MG PO (14:30)
[2024-05-15 14:34] LABS: Basophils # 0.3 K/mm3 (0-0.2); Basophils % 3.1 % (0.1-2.0); Eosinophils # 0.2 K/mm3 (0.0-0.4); Eosinophils % 2.2 % (0.1-12.0); Hematocrit 40.6 % (37.0-47.0); Hemoglobin 13.3 g/dL (12.2-16.2); Lymphocytes # 2.8 K/mm3 (0.7-4.5); Lymphocytes % 29.5 % (10-50); Mean Corpuscular HGB Conc 32.7 g/dL (31.8-35.4); Mean Corpuscular Hemoglobin 32.5 pg (27.0-31.2); Mean Corpuscular Volume 99.4 fl (81-99); Mean Platelet Volume 6.9 fl (7.4-10.4); Monocytes # 0.4 K/mm3 (0.1-1.0); Monocytes % 4.6 % (1.7-9.3); Neutrophils # 5.7 K/mm3 (1.8-7.8); Neutrophils % 60.6 % (37.0-80.0); Platelet Count 280 K/mm3 (142-424); Red Blood Count 4.09 M/mm3 (4.20-5.40); Red Cell Distribution Width 12.8 % (11.5-17.5); White Blood Count 9.4 K/mm3 (4.8-10.8)
[2024-05-15 14:36] LABS: Albumin Level 3.9 g/dl (3.5-5.0); Chloride 98 mmol/L (98-107); Potassium 4.1 mmoL/L (3.5-5.1); Sodium 136 mmol/L (136-145)
[2024-05-15 14:39] LABS: Alanine Aminotransferase 12 U/L (12-78); Albumin/Globulin Ratio 1.4 (1.1-1.8); Alkaline Phosphatase 57 U/L (38-126); Anion Gap 7.1 mEq/L (5-15); Aspartate Amino Transferase 26 U/L (14-36); Bilirubin,Total 0.4 mg/dl (0.2-1.3); Blood Urea Nitrogen 10 mg/dl (7-17); Calcium 10.7 mg/dl (8.4-10.2); Carbon Dioxide 35 mmol/L (22.0-30.0); Creatinine Clearance Estimated 46 mL/min (50-200); Estimated Glomerular Filt Rate 71 ml/min (>60); GFR (African American) 86 ML/MIN (>60); Globulin 2.8 g/dL (1.3-3.2); Glucose 105 mg/dl (74-100); Magnesium 1.4 mg/dl (1.6-2.3); Total Protein,Serum 6.7 g/dl (6.3-8.2)
[2024-05-15 14:40] LABS: INR 0.86 (0.9-1.1); Prothrombin Time 9.8 seconds (10.1-12.5)
[2024-05-15 14:48] LABS: NT Pro Brain Natriuretic Pep. 189 pg/mL (0-125)
[2024-05-15 15:04] LABS: Triiodothryronine (T3) Uptake 34 % (23.5-40.5)
[2024-05-15 15:05] LABS: Free Thyroxine Index 2.5 ug/dL (5.93-13.13); T4 (Thyroxine) 7.4 ug/dl (5.53-11.0)
[2024-05-15] MEDS: MAGNESIUM SULFATE IN WATER 2 GM/50 ML PIGGYBACK IV (15:12)
[2024-05-15 15:18] LABS: Thyroid Stimulating Hormone 2.01 uIU/mL (0.465-4.68)
--- NOTE | 2024-05-15 16:19 | ECG_ITS ---
APPROVED REPORT Exam: Resting ECG HR:99 bpm ECG Measurements Heart Rate 99 AXES HI 150 P 74 QRSd 89 QRS 269 QT 342 T 56 QTc 399 Conclusion SINUS RHYTHM RIGHT AXIS DEVIATION [QRS AXIS > 100] LOW QRS VOLTAGE IN PRECORDIAL LEADS [QRS DEFLECTION < 1.0 mV IN CHEST LEADS] POSSIBLE ANTERIOR MYOCARDIAL INFARCTION , OF INDETERMINATE AGE [30 ms Q WAVE IN V3/V4, OR R < 0.2 mV IN V4] ABNORMAL ECG UNCONFIRMED REPORT Electronically signed by : JANICE BURROUGHS, 05/16/2024 00:45:53
[2024-05-15] MEDS: FUROSEMIDE 40MG/4ML VIAL 40 MG IV (16:22)
[2024-05-15 16:27] VITALS: BP 129/71; PULSE 91; RESP 18; TEMP 36.8; O2SAT 98
== END 2024-05-15 16:34 | disposition home or self-care (01) ==
PROVIDERS: Physician Assistant; Emergency Provider Emergency Medicine; PCP Nurse Practitioner
DX: M79.671 Pain in right foot (principal); M79.672 Pain in left foot; I89.0 Lymphedema, not elsewhere classified
CPT/HCPCS: 80053; 83735; 83880; 84436; 84443; 84479; 85025; 85610; 93005; 96365; 96374; 99283; J1940; J3475

== ENCOUNTER 2024-07-28 15:59 | Inpatient (IN) | payer MEDICARE, SELFPAY ==
[2024-07-28] VITALS (10 sets, daily range): BP systolic 112–157; BP diastolic 50–99; PULSE 68–124; RESP 16–27; TEMP 36.4–36.8; O2SAT 86–99; BMI 21.0
--- NOTE | 2024-07-28 16:03 | ED_ITS ---
<Statement entered by Felicia Owen DO - 07/29/24 00:00> I was consulted by the ASHOK, and we discussed the complexity of the problems being addressed. I approved the treatment and management plan for this patient's care in the emergency department, thus performing a substantive portion of the medical decision making. Felicia Owen DO Discharge Plan Disposition Patient Disposition: Admitted Condition: Serious Clinical Impressions Clinical Impression: Stercoral colitis, Sepsis without septic shock, Fecal occult blood test positive Discharge ED Provider: Felicia Owen General Adult HPI <AKHIL Wright - Last Filed: 07/28/24 20:37> General Chief complaint: Weakness Stated complaint: sore throat, abd pain, diarrhea Time Seen by Provider: 07/28/24 16:02 History of Present Illness HPI narrative: Patient presents for evaluation of abdominal pain and liquid stool. Patient reports that she has had increasing abdominal pain and liquid stool for approximately a week. She denies fever chills hemoptysis hematochezia hematemesis hematuria but reports that her stool is turning dark . Patient cannot tell me the last time she had a solid bowel movement. She does have chronic pain and is on chronic opiates but is on no OIC medication. Related Data Home Medications ?Medication ?Instructions ?Recorded ?Confirmed ipratropium 0.5 mg-albuterol 3 mg 3 ml inhalation QIDP PRN Shortness 07/03/21 04/15/24 (2.5 mg base)/3 mL nebulization Of Breath soln fluticasone 250 mcg-salmeterol 50 1 inh inhalation BID COPD 04/19/22 04/15/24 mcg/dose blistr powdr for inhalation (Advair Diskus) albuterol sulfate 90 mcg/actuation 2 inh inhalation NEEDED PRN SOA 04/15/24 04/15/24 aerosol inhaler alprazolam 1 mg tablet 1 mg PO BID 04/15/24 04/15/24 calcium 600 mg (as 1 tab PO BID 04/15/24 04/15/24 carbonate)-vitamin D3 5 mcg (200 unit) tablet celecoxib 50 mg capsule 50 mg PO DAILY 04/15/24 04/15/24 cholecalciferol (vitamin D3) 1,250 1,250 mcg PO WEEKLY 04/15/24 04/15/24 mcg (50,000 unit) capsule duloxetine 30 mg capsule,delayed 30 mg PO DAILY 04/15/24 04/15/24 release gabapentin 800 mg tablet 800 mg PO DAILY 04/15/24 04/16/24 hydrocodone 10 mg-acetaminophen 1 tab PO DAILY 04/15/24 04/16/24 325 mg tablet losartan 100 mg tablet 100 mg PO DAILY 04/15/24 04/16/24 magnesium gluconate 27 mg 500 mg PO DAILY 04/15/24 04/15/24 magnesium (500 mg) tablet montelukast 10 mg tablet 10 mg PO DAILY 04/15/24 04/15/24 potassium chloride 20 mEq 40 meq PO BID 04/15/24 04/15/24 tablet,extended release(part/cryst) Previous Rx's ?Medication ?Instructions ?Recorded amlodipine 10 mg tablet 10 mg PO DAILY #30 tabs 04/16/24 doxycycline hyclate 100 mg tablet 100 mg PO BID 3 days #6 tabs 04/16/24 glycerin (adult) (Fleet Glycerin 1 supp [place] DAILY PRN constipation 04/16/24 (Adult) rectal suppository) #12 ea polyethylene glycol 3350 17 gram 17 g PO DAILY #30 ea 04/16/24 oral powder packet (HealthyLax) prednisone 20 mg tablet 40 mg (2 x 20 mg) PO DAILY 2 days 05/01/24 #4 tabs Allergies Allergy/AdvReac Type Severity Reaction Status Date / Time No Known Allergies Allergy Verified 02/12/24 15:46 [facility] <AKHIL Wright - Last Filed: 07/28/24 20:37> [facility] Disclaimer: The information contained in this section may have been updated after the patient was seen, as this information can be updated by other users. Medical History (Updated 07/28/24 @ 19:39 by AKHIL Wright) COPD mixed type Lung nodule Hypokalemia Elevated troponin COPD (chronic obstructive pulmonary disease) Nocturnal hypoxemia Pulmonary emphysema Incidental pulmonary nodule, greater than or equal to 8mm Smoking greater than 30 pack years Dyspnea on exertion Tobacco abuse disorder Tobacco abuse counseling COPD (chronic obstructive pulmonary disease) Cervical cancer Surgical History History of dilation and curettage History of back surgery Family History Other Diabetes Social History Smoking Status: Current every day smoker tobacco type: cigarettes packs per day: 2 second hand exposure: Yes alcohol intake: current alcohol intake frequency: 0-2 drinks per day current occupational status: unemployed Travel in the last 8 weeks: None household members: spouse housing: house current occupational exposures/hazards: No Have you lived/traveled outside [place] in past 30 days?: No Contact w/someone who lives/traveled outside US past 30 days?: No Exposure to someone with infectious disease in past 14 days?: No Do you have a fever (greater than 100.4 F or 38 C)?: Yes Have you tested positive for COVID-19: No Exposed to someone with COVID-19 in past 14 days?: No Do you have a sore throat?: Yes Do you have a cough?: Yes Do you have any weakness?: Yes Do you have any diarrhea?: Yes Are you experiencing any unusual bleeding?: No Do you have any muscle aches/pain?: Yes Do you have any abdominal pain?: Yes Are you experiencing loss of taste or smell?: No Other Medical History Have you received the Flu Vaccine for this season: No Have you received the Pneumonia Vaccine: No <AKHIL Wright - Last Filed: 07/28/24 20:37> ROS Obtained: Yes Systems reviewed as appropriate & no additional complaints except as documented Physical Exam <AKHIL Wright - Last Filed: 07/28/24 20:37> General General appearance: alert and in no apparent distress Respiratory Respiratory exam: Present normal lung sounds bilaterally Cardiovascular Cardiovascular exam: Present regular rate Neurological Exam Neurological exam: Present alert and oriented X3 Medical Decision Making <AKHIL Wright - Last Filed: 07/28/24 20:37> Medical Records Medical records reviewed: Yes I reviewed the patient's medical records. Screening: Per USPSTF and CDC recommendations, given the prevalence of disease in our region, it is our hospital?s policy to screen for HIV and viral Hepatitis for all patients aged 18 and over and those with ongoing risk factors. Azael Inquiry Pt receiving controlled substance: No Vital Signs: 07/28/24 16:00 07/28/24 16:18 07/28/24 16:30 Temperature 98.3 F Temperature Source Oral Pulse Rate 124 H 78 Pulse Rate [Left Radial] 68 Respiratory Rate 26 H 26 H 23 Blood Pressure 118/76 117/63 Blood Pressure [Right Arm] 112/50 L Blood Pressure Mean [Right Arm] 70 02 Sat by Pulse Oximetry 93 L 88 L 89 L Oxygen Delivery Method Room Air Room Air 07/28/24 17:00 07/28/24 17:31 07/28/24 18:00 Temperature Temperature Source Pulse Rate 117 H 123 H 117 H Pulse Rate [Left Radial] Respiratory Rate 24 24 17 Blood Pressure 124/62 138/99 H 157/84 H Blood Pressure [Right Arm] Blood Pressure Mean [Right Arm] 02 Sat by Pulse Oximetry 90 L 90 L 92 L Oxygen Delivery Method Room Air Room Air Room Air 07/28/24 18:30 Temperature Temperature Source Pulse Rate 94 H Pulse Rate [Left Radial] Respiratory Rate 27 H Blood Pressure 157/81 H Blood Pressure [Right Arm] Blood Pressure Mean [Right Arm] 02 Sat by Pulse Oximetry 86 L Oxygen Delivery Method Room Air Lab Data Lab results reviewed: Yes I reviewed the patient's lab results. Lab Results 07/28/24 16:24: WBC 17.0 H, RBC 3.48 L, Hgb 10.8 L, Hct 33.7 L, MCV 96.8, MCH 31.0, MCHC 32.0, RDW 13.2, Plt Count 435 H, MPV 8.7, Neut % (Auto) 78.2, Lymph % (Auto) 18.0, [place] % (Auto) 2.3, Eos % (Auto) 0.2, Baso % (Auto) 0.4, Neut # (Auto) 13.3 H, Lymph # (Auto) 3.1, [place] # (Auto) 0.4, Eos # (Auto) 0.0, Baso # (Auto) 0.1, Total Counted 100, Neutrophils % (Manual) 80 H, Lymphocytes % (Manual) 17, Atypical Lymphs % 2.0, Monocytes % (Manual) 1 L, Platelet Estimate Normal, Anisocytosis 1+, Microcytosis 1+, Macrocytosis 2+, PT 10.0 L, INR 0.88 L , Sodium 130 L, Potassium 3.9, Chloride 92 L, Carbon Dioxide 34 H, Anion Gap 7.9, BUN 26 H, Creatinine 0.80, Estimated Creat Clear 44, Estimated GFR 71, Est GFR ( Amer) 86, Glucose 98, Calcium 10.9 H, Magnesium 1.6, Total Bilirubin 0.2, AST 29, ALT 18, Alkaline Phosphatase 68, Total Protein 7.0, Albumin 3.9, Globulin 3.1, Albumin/Globulin Ratio 1.3, Lipase 61, Procalcitonin 0.076, HCV Ab JAIRON w/Rflx PCR Qn Negative, HIV Ag/Ab Combo Qual Negative 07/28/24 16:30: VBG pH 7.33, VBG pCO2 65.4 H, VBG pO2 26.6 L, VBG HCO3 33.6 H, V BG Total CO2 35.6 H, VBG O2 Saturation 49.5 L, VBG Base Excess 7.6 H, VBG Lactic Acid 2.9 H 07/28/24 18:45: Stool Occult Blood Positive A 07/28/24 16:24 07/28/24 16:24 Orders (Tests/Meds): ED MEDICATIONS Generic Name Dose Route Start Last Admin Trade Name Freq PRN Reason Stop Dose Admin Piperacillin Sod/Tazobactam 50 mls @ 100 mls/hr 07/28/24 19:45 Sod 3.375 gm/ Sodium Chloride IV 08/07/24 19:44 Q6H VICENTE Discontinued Medications Generic Name Dose Route Start Last Admin Trade Name Freq PRN Reason Stop Dose Admin Acetaminophen 1,000 mg 07/28/24 16:23 07/28/24 16:33 Acetaminophen 1,000mg/100ml Vial IV 07/28/24 16:24 1,000 mg ONCE ONE Administration Hydromorphone HCl 0.5 mg 07/28/24 18:20 07/28/24 18:50 Hydromorphone 2mg/Ml Syringe IV 07/28/24 18:21 0.5 mg ONCE ONE Administration Iopamidol 75 ml 07/28/24 17:25 07/28/24 17:27 Iopamidol-370 (76%);100ml Bottle IV 07/28/24 17:26 75 ml ONCE ONE Administration Mineral Oil 133 ml 07/28/24 17:51 07/28/24 18:56 Mineral Oil Enema 133ml RC 07/28/24 17:52 Not Given ONCE ONE Ondansetron HCl 4 mg 07/28/24 16:23 07/28/24 16:34 Ondansetron 4mg/2ml Vial IV 07/28/24 16:24 4 mg ONCE ONE Administration Sodium Chloride 10 ml 07/28/24 17:25 07/28/24 17:27 Sodium Chloride 0.9% 10ml Syr (Rad Only) IV 07/28/24 17:26 10 ml ONCE ONE Administration ORDERS Category Date Time Status CT abdomen pelvis w con Stat Cat Scan 07/28/24 16:23 Completed CBC w/Auto Diff [Complete Blood Count Auto Diff] Stat Lab 07/28/24 16:24 Completed CMP [Comprehensive Metabolic Panel] Stat Lab 07/28/24 16:24 Completed Diarrhea 23 Panel, PCR Stat Lab 07/28/24 16:24 Ordered HIV Combo Stat Lab 07/28/24 16:24 Completed Hepatitis C Ab Qual. W/ RFX Stat Lab 07/28/24 16:24 Completed INR [Prothrombin Time INR] Stat Lab 07/28/24 16:24 Completed Lipase Stat Lab 07/28/24 16:24 Completed Magnesium Stat Lab 07/28/24 16:24 Completed Occult Blood,Stool Stat Lab 07/28/24 18:45 Completed Procalcitonin Stat Lab 07/28/24 16:24 Completed UA [Urinalysis and Microscopic] Stat Lab 07/28/24 16:24 Ordered Blood Culture Stat Micro 07/28/24 16:32 Received VBG [Venous Blood Gas] Stat RT 07/28/24 16:30 Completed Medical Decision Narrative: In summary patient is a 69-year-old female who presents to the emergency department for evaluation of abdominal pain and loose stool. Patient is hemodynamically stable upon arrival, afebrile. Physical exam shows a slightly distended abdomen however it is soft and is diffusely mildly tender to palpation with normal bowel sounds there is no rebound or guarding or rigidity.. Differential diagnosis includes constipation versus gastroenteritis versus infection etc. Initial workup will be conducted with blood cultures hematologic labs urinalysis CT scan abdomen pelvis. Initial interventions include crystalloid bolus supplemental O2 as patient doctor sat down to 86% on room air and she is supposed to be on oxygen continuously due to her COPD. She also continues to be a 2 pack-a-day smoker. Initial workup reviewed by me shows patient has a white count of 17,000 with a hemoglobin hematocrit 10.8 and 33.7 respectively platelets 435 absolute neutrophil count is 13.3 INR 0.88 VBG shows a pH of 7.33 pCO2 of 65.4 VBG lactic acid 2.9, CMP shows a sodium of 130 chloride of 92 CO2 of 34 gap of 7.9 BUN of 26 creatinine 0.8 with a GFR of 71 calcium 10.9 magnesium 1.6 lipase is 61 procalcitonin 0.076 and my informal interpretation of her CT scan abdomen pelvis shows a rectal stool ball with colonic wall thickening suggestive of sterile coral colitis. Patient has a large dense stool burden throughout the colon.. Upon repeat evaluation I attempted to manually disimpact the stool ball however patient could not tolerate my attempts even after pain medicine. We then attempted a soapsuds enema without success. I did collect a stool sample for occult blood which was positive.. Given this I had an interactive discussion with hospital medicine regarding results and patient management and she will be admitted for further evaluation and care and surgery and GI consultations in the a.m. I have started the patient on Zosyn after blood cultures were collected. <Felicia Owen, DO - Last Filed: 07/28/24 19:02> Vital Signs: 07/28/24 16:00 07/28/24 16:18 07/28/24 16:30 Temperature 98.3 F Temperature Source Oral Pulse Rate 124 H 78 Pulse Rate [Left Radial] 68 Respiratory Rate 26 H 26 H 23 Blood Pressure 118/76 117/63 Blood Pressure [Right Arm] 112/50 L Blood Pressure Mean [Right Arm] 70 02 Sat by Pulse Oximetry 93 L 88 L 89 L Oxygen Delivery Method Room Air Room Air 07/28/24 17:00 07/28/24 17:31 07/28/24 18:00 Temperature Temperature Source Pulse Rate 117 H 123 H 117 H Pulse Rate [Left Radial] Respiratory Rate 24 24 17 Blood Pressure 124/62 138/99 H 157/84 H Blood Pressure [Right Arm] Blood Pressure Mean [Right Arm] 02 Sat by Pulse Oximetry 90 L 90 L 92 L Oxygen Delivery Method Room Air Room Air Room Air 07/28/24 18:30 Temperature Temperature Source Pulse Rate 94 H Pulse Rate [Left Radial] Respiratory Rate 27 H Blood Pressure 157/81 H Blood Pressure [Right Arm] Blood Pressure Mean [Right Arm] 02 Sat by Pulse Oximetry 86 L Oxygen Delivery Method Room Air Lab Data Lab Results 07/28/24 16:24: WBC 17.0 H, RBC 3.48 L, Hgb 10.8 L, Hct 33.7 L, MCV 96.8, MCH 31.0, MCHC 32.0, RDW 13.2, Plt Count 435 H, MPV 8.7, Neut % (Auto) 78.2, Lymph % (Auto) 18.0, [place] % (Auto) 2.3, Eos % (Auto) 0.2, Baso % (Auto) 0.4, Neut # (Auto) 13.3 H, Lymph # (Auto) 3.1, [place] # (Auto) 0.4, Eos # (Auto) 0.0, Baso # (Auto) 0.1, Total Counted 100, Neutrophils % (Manual) 80 H, Lymphocytes % (Manual) 17, Atypical Lymphs % 2.0, Monocytes % (Manual) 1 L, Platelet Estimate Normal, Anisocytosis 1+, Microcytosis 1+, Macrocytosis 2+, PT 10.0 L, INR 0.88 L , Sodium 130 L, Potassium 3.9, Chloride 92 L, Carbon Dioxide 34 H, Anion Gap 7.9, BUN 26 H, Creatinine 0.80, Estimated Creat Clear 44, Estimated GFR 71, Est GFR ( Amer) 86, Glucose 98, Calcium 10.9 H, Magnesium 1.6, Total Bilirubin 0.2, AST 29, ALT 18, Alkaline Phosphatase 68, Total Protein 7.0, Albumin 3.9, Globulin 3.1, Albumin/Globulin Ratio 1.3, Lipase 61, Procalcitonin 0.076, HCV Ab JAIRON w/Rflx PCR Qn Negative, HIV Ag/Ab Combo Qual Negative 07/28/24 16:30: VBG pH 7.33, VBG pCO2 65.4 H, VBG pO2 26.6 L, VBG HCO3 33.6 H, V BG Total CO2 35.6 H, VBG O2 Saturation 49.5 L, VBG Base Excess 7.6 H, VBG Lactic Acid 2.9 H 07/28/24 18:45: Stool Occult Blood Positive A Orders (Tests/Meds): ED MEDICATIONS Generic Name Dose Route Start Last Admin Trade Name Freq PRN Reason Stop Dose Admin Piperacillin Sod/Tazobactam 50 mls @ 100 mls/hr 07/28/24 19:45 Sod 3.375 gm/ Sodium Chloride IV 08/07/24 19:44 Q6H VICENTE Discontinued Medications Generic Name Dose Route Start Last Admin Trade Name Anatoly PRN Reason Stop Dose Admin Acetaminophen 1,000 mg 07/28/24 16:23 07/28/24 16:33 Acetaminophen 1,000mg/100ml Vial IV 07/28/24 16:24 1,000 mg ONCE ONE Administration Hydromorphone HCl 0.5 mg 07/28/24 18:20 07/28/24 18:50 Hydromorphone 2mg/Ml Syringe IV 07/28/24 18:21 0.5 mg ONCE ONE Administration Iopamidol 75 ml 07/28/24 17:25 07/28/24 17:27 Iopamidol-370 (76%);100ml Bottle IV 07/28/24 17:26 75 ml ONCE ONE Administration Mineral Oil 133 ml 07/28/24 17:51 07/28/24 18:56 Mineral Oil Enema 133ml RC 07/28/24 17:52 Not Given ONCE ONE Ondansetron HCl 4 mg 07/28/24 16:23 07/28/24 16:34 Ondansetron 4mg/2ml Vial IV 07/28/24 16:24 4 mg ONCE ONE Administration Sodium Chloride 10 ml 07/28/24 17:25 07/28/24 17:27 Sodium Chloride 0.9% 10ml Syr (Rad Only) IV 07/28/24 17:26 10 ml ONCE ONE Administration ORDERS Category Date Time Status CT abdomen pelvis w con Stat Cat Scan 07/28/24 16:23 Completed CBC w/Auto Diff [Complete Blood Count Auto Diff] Stat Lab 07/28/24 16:24 Completed CMP [Comprehensive Metabolic Panel] Stat Lab 07/28/24 16:24 Completed Diarrhea 23 Panel, PCR Stat Lab 07/28/24 16:24 Ordered HIV Combo Stat Lab 07/28/24 16:24 Completed Hepatitis C Ab Qual. W/ RFX Stat Lab 07/28/24 16:24 Completed INR [Prothrombin Time INR] Stat Lab 07/28/24 16:24 Completed Lipase Stat Lab 07/28/24 16:24 Completed Magnesium Stat Lab 07/28/24 16:24 Completed Occult Blood,Stool Stat Lab 07/28/24 18:45 Completed Procalcitonin Stat Lab 07/28/24 16:24 Completed UA [Urinalysis and Microscopic] Stat Lab 07/28/24 16:24 Ordered Blood Culture Stat Micro 07/28/24 16:32 Received VBG [Venous Blood Gas] Stat RT 07/28/24 16:30 Completed ECG Data Tracing #1: I reviewed this ECG and interpreted as documented below: Sinus tachycardia with PACs versus multifocal atrial tachycardia with a ventricular to 123 bpm. Similar notified to grade study. No acute ST changes concerning for ischemia. Left axis deviation. ECG initial impression date: 07/28/24 ECG initial impression time: 18:05 Critical Care <AKHIL Wright - Last Filed: 07/28/24 20:37> Critical Care Time Critical Care Time: Yes Attestation: On 07/28/24, the high probability of a clinically significant, sudden or life threatening deterioration of the following system: Cardiovascular, pulmonary, gastrointestinal; required my full and direct attention, intervention and personal management. The time I documented below is in addition to time spent performing reported procedures but includes the following listed in this critical care notation. Total Time Total Critical Care Time: 30
--- NOTE | 2024-07-28 16:23 | CT_ITS ---
PROCEDURE INFORMATION: Exam: CT Abdomen And Pelvis With Contrast Exam date and time: 07/28/2024 5:26 PM Age: 69 years old Clinical indication: Abdominal pain TECHNIQUE: Imaging protocol: Computed tomography of the abdomen and pelvis with contrast. Radiation optimization: All CT scans at this facility use at least one of these dose optimization techniques: automated exposure control; mA and/or kV adjustment per patient size (includes targeted exams where dose is matched to clinical indication); or iterative reconstruction. Contrast material: ISOVUE; Contrast volume: 75 ml; Contrast route: IV; COMPARISON: 1. CT ABDOMEN PELVIS WO CON 04/15/2024 7:30 PM 2[address] PT PET CT Skull Base to Midthigh 06/02/2021 12:44 PM FINDINGS: Lungs: Subsegmental atelectasis in the left lung base. Pleural spaces: Trace left pleural effusion. Heart: Trace pericardial fluid noted, similar to prior exam. Diaphragm: Moderate-sized hiatal hernia with circumferential wall thickening in the distal esophagus compatible with gastroesophageal reflux esophagitis. Liver: No suspicious liver lesions. Gallbladder and biliary ducts: Unremarkable. Pancreas: No evidence of acute pancreatitis. No pancreatic ductal dilation. Spleen: Punctate calcifications in the spleen compatible with chronic sequelae of prior granulomatous disease, unchanged. Round 1.7 cm homogeneous soft tissue lesion at the tip of the pancreatic tail, unchanged since at least 06/02/2021 and most likely a benign splenoma or intrapancreatic accessory spleen. Adrenal glands: Unremarkable. Kidneys and ureters: Stable simple renal cysts. Non-specific bilateral symmetric perinephric fat stranding, not significantly changed from prior exam. No hydronephrosis. Stomach and bowel: Large stool ball in the rectum with diffuse rectal wall thickening and mucosal hyperenhancement concerning for acute stercoral proctitis. Moderate amount of hyperdense stool throughout the colon. No evidence of small bowel obstruction. Prominent mucosal hyperenhancement in the stomach. Appendix: No evidence of appendicitis. Intraperitoneal space: No free fluid. No pneumoperitoneum. Vasculature: Extensive atherosclerotic plaque throughout the abdominal aorta, unchanged from prior exams. No abdominal aortic aneurysm. Lymph nodes: Unremarkable. Urinary bladder: Unremarkable. Reproductive: Unremarkable. Bones/joints: Stable appearance of multiple chronic compression fracture deformities status post cement kyphoplasty. No evidence of acute osseous abnormality. Soft tissues: Unremarkable. IMPRESSION: 1. Large stool ball in the rectum with diffuse rectal wall thickening and mucosal hyperenhancement concerning for acute stercoral proctitis. 2. Moderate amount of hyperdense stool throughout the colon. Findings pose increased risk for developing stercoral colitis. 3. Prominent mucosal hyperenhancement in the stomach. Suspect stress gastritis. 4. Trace left pleural effusion. 5. Moderate-sized hiatal hernia with circumferential wall thickening in the distal esophagus compatible with gastroesophageal reflux esophagitis. 6. Additional non-acute ancillary findings are detailed above.
[2024-07-28] MEDS: ACETAMINOPHEN 1,000MG/100ML VIAL 1000 MG IV (16:33)
[2024-07-28] MEDS: ONDANSETRON 4MG/2ML VIAL 4 MG IV (16:34)
[2024-07-28 16:39] LABS: Basophils # 0.1 K/mm3 (0-0.2); Basophils % 0.4 % (0.1-2.0); Eosinophils % 0.2 % (0.1-12.0); Hematocrit 33.7 % (37.0-47.0); Hemoglobin 10.8 g/dL (12.2-16.2); Lymphocytes # 3.1 K/mm3 (0.7-4.5); Mean Corpuscular Volume 96.8 fl (81-99); Mean Platelet Volume 8.7 fl (7.4-10.4); Monocytes # 0.4 K/mm3 (0.1-1.0); Monocytes % 2.3 % (1.7-9.3); Neutrophils # 13.3 K/mm3 (1.8-7.8); Neutrophils % 78.2 % (37.0-80.0); Platelet Count 435 K/mm3 (142-424); Red Blood Count 3.48 M/mm3 (4.20-5.40); Red Cell Distribution Width 13.2 % (11.5-17.5)
[2024-07-28 16:42] LABS: VBG Base Excess 7.6 mmol/L (-2.4-2.3); VBG HCO3 33.6 mmol/L (23-30); VBG Oxygen Saturation 49.5 % (50-70); VBG PH 7.33 mmol/L (7.31-7.41); VBG PO2 26.6 mmol/L (28-40); VBG Total CO2 35.6 mmol/L (23-27)
[2024-07-28 16:45] LABS: Lactate Venous 2.9 mmol/L (0.4-2.0); VBG PCO2 65.4 mmol/L (35-51)
[2024-07-28 16:45] LABS: Albumin Level 3.9 g/dl (3.5-5.0); Chloride 92 mmol/L (98-107); Potassium 3.9 mmoL/L (3.5-5.1); Sodium 130 mmol/L (136-145)
[2024-07-28 16:47] LABS: Blood Urea Nitrogen 26 mg/dl (7-17); Creatinine Clearance Estimated 44 mL/min (50-200); Estimated Glomerular Filt Rate 71 ml/min (>60); GFR (African American) 86 ML/MIN (>60)
[2024-07-28 16:48] LABS: Alanine Aminotransferase 18 U/L (12-78); Albumin/Globulin Ratio 1.3 (1.1-1.8); Alkaline Phosphatase 68 U/L (38-126); Anion Gap 7.9 mEq/L (5-15); Aspartate Amino Transferase 29 U/L (14-36); Bilirubin,Total 0.2 mg/dl (0.2-1.3); Calcium 10.9 mg/dl (8.4-10.2); Carbon Dioxide 34 mmol/L (22.0-30.0); Globulin 3.1 g/dL (1.3-3.2); Glucose 98 mg/dl (74-100); Lipase 61 U/L (23-300); Magnesium 1.6 mg/dl (1.6-2.3)
[2024-07-28 16:52] LABS: INR 0.88 (0.9-1.1); MANUAL DIFFERENTIAL MANUAL DIFFERENTIAL (MANUAL DIFF)
[2024-07-28] MEDS: SODIUM CHLORIDE 0.9% 10ML SYR (RAD ONLY) 10 ML IV (17:27)
[2024-07-28] MEDS: IOPAMIDOL-370 (76%);100ML BOTTLE 75 ML IV (17:27)
--- NOTE | 2024-07-28 18:03 | ECG_ITS ---
APPROVED REPORT Exam: Resting ECG HR:123 bpm ECG Measurements Heart Rate 123 AXES NE 135 P 80 QRSd 84 QRS -73 QT 324 T 61 QTc 397 Conclusion SINUS TACHYCARDIA WITH OCCASIONAL VENTRICULAR PREMATURE COMPLEXES WITH OCCASIONAL SUPRAVENTRICULAR PREMATURE COMPLEXES LEFT AXIS DEVIATION [QRS AXIS < -30] SEPTAL MYOCARDIAL INFARCTION , PROBABLY OLD [40+ ms Q WAVE IN V1/V2] No STEMI Electronically signed by : YUVAL VARGAS, 07/29/2024 03:13:22
[2024-07-28 18:06] LABS: Procalcitonin 0.076 ng/mL (0.0-2.0)
[2024-07-28 18:17] LABS: Anisocytosis 1+; Lymphocytes % 17 % (10-50); Macrocytosis 2+; Microcytosis 1+; Monocytes % 1 % (2-9); Neutrophils % 80 % (42-76); Platelet Estimate Normal; Total Cells Counted 100
--- NOTE | 2024-07-28 18:25 | PC.NURSE ---
NURSE STREET AND NELLIE AT BS FOR [facility]EMA
[2024-07-28 18:36] LABS: HIV Combo NEGATIVE (Negative)
[2024-07-28 18:44] LABS: Hepatitis C Ab Qual. W/ RFX NEGATIVE (Negative)
[2024-07-28] MEDS: HYDROMORPHONE 2MG/ML SYRINGE 0.5 MG IV (18:50)
--- NOTE | 2024-07-28 18:52 | PC.NURSE ---
Soap Suds enema administered at bedside with FIGUEROA [place]. pt tolerated well. pt placed on bedside commode and was able to expel a minimal about of stool but not her full stool burden.
[2024-07-28 18:57] LABS: Occult Blood,Stool Positive (Negative)
--- NOTE | 2024-07-28 19:44 | PC.NURSE ---
electrician supervisor substation notified of plans for admission to hospitalist
--- NOTE | 2024-07-28 20:14 | PC.NURSE ---
report called to Belinda Sagastume RN
--- NOTE | 2024-07-28 20:35 | PC.NURSE ---
Patient arrived to floor via stretcher from ED at 20:30.
[2024-07-28 20:44] LABS: Reflex Lactic Add Lactic Reflex
[2024-07-28 21:18] LABS: Lactic Acid Follow Up (RFLX 1) 1.3 mmol/L (0.7-2.1)
--- NOTE | 2024-07-28 21:23 | PC.NURSE ---
Pt does not know her home medications. She states her son could bring them tomorrow but she thinks she will likely go home.
[2024-07-28] MEDS: PIPERCILLIN/TAZO 3.375 GM in 0.9 % SODIUM CHLORIDE 50 ML IV (21:28)
[2024-07-28] MEDS: LACTATED RINGERS 1000ML 1,000 ML 75 ML IV (21:29)
[2024-07-28] MEDS: IPRATROPIUM/ALBUTEROL 3 ML NEB IH (22:10)
[2024-07-28] MEDS: ALPRAZolam 0.5MG TABLET 0.5 MG PO (22:44)
--- NOTE | 2024-07-28 23:36 | P.HP_ITS ---
<Statement entered by Sulaiman Butt MD - 08/05/24 10:29> Personally examined patient and agree with the plan of care as outlined by the FILM CRITIC. History of Present Illness *Admission Date: 07/28/24 *Reason for visit:: Abdominal pain *History of present illness: This is a 69-year-old female with a past medical history of COPD, known pulmonary mass, hypertension, lumbar radiculopathy on chronic pain medicine presents emergency department today with complaints of abdominal pain and vomiting. States that she has had increasing abdominal pain. Does have history of stercoral colitis on prior hospitalization in April. Presents in similar fashion. Also reports acute on chronic wheezing. Is on her home 2 L nasal cannula. Does endorse a history of COPD. Denies fever. Also endorses bowel movements but states they have been loose. Emergency department workup notable for continued sterile coral colitis on CT imaging. Chest CT notable for severe/extensive emphysematous changes throughout the lungs with large spiculated nodules in the inferior right upper lobe concerning for neoplasm. White blood cell count of 17. Diffuse wheezing noted on exam. Mildly elevated CO2 of 65 but compensated with a pH of 7.33 occult positive stool. Multiple attempts for manual disimpaction attempted in the emergency department without success. Patient had significant pain. Significantly hard stool noted in the rectal vault. Given this she will be admitted to hospital service. [facility] Disclaimer: The information contained in this section may have been updated after the patient was seen, as this information can be updated by other users. Medical History (Updated 07/28/24 @ 23:41 by SHANTA Cuenca) COPD mixed type Lung nodule Hypokalemia Elevated troponin COPD (chronic obstructive pulmonary disease) Nocturnal hypoxemia Pulmonary emphysema Incidental pulmonary nodule, greater than or equal to 8mm Smoking greater than 30 pack years Dyspnea on exertion Tobacco abuse disorder Tobacco abuse counseling COPD (chronic obstructive pulmonary disease) Cervical cancer Surgical History History of dilation and curettage History of back surgery Family History Other Diabetes Social History Smoking Status: Current every day smoker tobacco type: cigarettes packs per day: 2 second hand exposure: Yes alcohol intake: current alcohol intake frequency: 0-2 drinks per day current occupational status: unemployed Travel in the last 8 weeks: None household members: spouse housing: house current occupational exposures/hazards: No Have you lived/traveled outside [place] in past 30 days?: No Contact w/someone who lives/traveled outside US past 30 days?: No Exposure to someone with infectious disease in past 14 days?: No Do you have a fever (greater than 100.4 F or 38 C)?: Yes Have you tested positive for COVID-19: No Exposed to someone with COVID-19 in past 14 days?: No Do you have a sore throat?: Yes Do you have a cough?: Yes Do you have any weakness?: Yes Do you have any diarrhea?: Yes Are you experiencing any unusual bleeding?: No Do you have any muscle aches/pain?: Yes Do you have any abdominal pain?: Yes Are you experiencing loss of taste or smell?: No Other Medical History Have you received the Flu Vaccine for this season: Yes Have you received the Pneumonia Vaccine: Yes Review of Systems Review of Systems Review of systems:: pertinent systems reviewed and negative unless documented below Review of systems (narrative): Negative except for HPI Meds Home Medications and Allergies Home Medications ?Medication ?Instructions ?Recorded ?Confirmed ?Type ipratropium 0.5 mg-albuterol 3 mg 3 ml inhalation QIDP PRN Shortness 07/03/21 04/15/24 History (2.5 mg base)/3 mL nebulization Of Breath soln fluticasone 250 mcg-salmeterol 50 1 inh inhalation BID COPD 04/19/22 04/15/24 History mcg/dose blistr powdr for inhalation (Advair Diskus) albuterol sulfate 90 mcg/actuation 2 inh inhalation NEEDED PRN SOA 04/15/24 04/15/24 History aerosol inhaler alprazolam 1 mg tablet 1 mg PO BID 04/15/24 04/15/24 History calcium 600 mg (as 1 tab PO BID 04/15/24 04/15/24 History carbonate)-vitamin D3 5 mcg (200 unit) tablet celecoxib 50 mg capsule 50 mg PO DAILY 04/15/24 04/15/24 History cholecalciferol (vitamin D3) 1,250 1,250 mcg PO WEEKLY 04/15/24 04/15/24 History mcg (50,000 unit) capsule duloxetine 30 mg capsule,delayed 30 mg PO DAILY 04/15/24 04/15/24 History release gabapentin 800 mg tablet 800 mg PO DAILY 04/15/24 04/16/24 History hydrocodone 10 mg-acetaminophen 1 tab PO DAILY 04/15/24 04/16/24 History 325 mg tablet losartan 100 mg tablet 100 mg PO DAILY 04/15/24 04/16/24 History magnesium gluconate 27 mg 500 mg PO DAILY 04/15/24 04/15/24 History magnesium (500 mg) tablet montelukast 10 mg tablet 10 mg PO DAILY 04/15/24 04/15/24 History potassium chloride 20 mEq 40 meq PO BID 04/15/24 04/15/24 History tablet,extended release(part/cryst) amlodipine 10 mg tablet 10 mg PO DAILY #30 tabs 04/16/24 Rx doxycycline hyclate 100 mg tablet 100 mg PO BID 3 days #6 tabs 04/16/24 Rx glycerin (adult) (Fleet Glycerin 1 supp [place] DAILY PRN constipation 04/16/24 Rx (Adult) rectal suppository) #12 ea polyethylene glycol 3350 17 gram 17 g PO DAILY #30 ea 04/16/24 Rx oral powder packet (HealthyLax) prednisone 20 mg tablet 40 mg (2 x 20 mg) PO DAILY 2 days 05/01/24 Rx #4 tabs New Prescriptions to Start Prescriptions: Allergies Allergy/AdvReac Type Severity Reaction Status Date / Time No Known Allergies Allergy Verified 07/28/24 21:23 Exam Data for Last 24 hours Vital signs and Labs for Last 24 Hours: Temp Pulse Resp BP Pulse Ox O2 Del Method O2 Flow Rate 98.3 F 102 H 18 153/72 H 97 Nasal Cannula 1 07/28/24 21:16 07/28/24 22:11 07/28/24 21:16 07/28/24 21:16 07/28/24 22:11 07/28/24 22:11 07/28/24 22:11 Laboratory Results - last 24 hr 07/28/24 16:24: WBC 17.0 H, RBC 3.48 L, Hgb 10.8 L, Hct 33.7 L, MCV 96.8, MCH 31.0, MCHC 32.0, RDW 13.2, Plt Count 435 H, MPV 8.7, Neut % (Auto) 78.2, Lymph % (Auto) 18.0, [place] % (Auto) 2.3, Eos % (Auto) 0.2, Baso % (Auto) 0.4, Neut # (Auto) 13.3 H, Lymph # (Auto) 3.1, [place] # (Auto) 0.4, Eos # (Auto) 0.0, Baso # (Auto) 0.1, Total Counted 100, Neutrophils % (Manual) 80 H, Lymphocytes % (Manual) 17, Atypical Lymphs % 2.0, Monocytes % (Manual) 1 L, Platelet Estimate Normal, Anisocytosis 1+, Microcytosis 1+, Macrocytosis 2+, PT 10.0 L, INR 0.88 L , Sodium 130 L, Potassium 3.9, Chloride 92 L, Carbon Dioxide 34 H, Anion Gap 7.9, BUN 26 H, Creatinine 0.80, Estimated Creat Clear 44, Estimated GFR 71, Est GFR ( Amer) 86, Glucose 98, Calcium 10.9 H, Magnesium 1.6, Total Bilirubin 0.2, AST 29, ALT 18, Alkaline Phosphatase 68, Total Protein 7.0, Albumin 3.9, Globulin 3.1, Albumin/Globulin Ratio 1.3, Lipase 61, Procalcitonin 0.076, HCV Ab JAIRON w/Rflx PCR Qn Negative, HIV Ag/Ab Combo Qual Negative 07/28/24 16:30: VBG pH 7.33, VBG pCO2 65.4 H, VBG pO2 26.6 L, VBG HCO3 33.6 H, VBG Total CO2 35.6 H, VBG O2 Saturation 49.5 L, VBG Base Excess 7.6 H, VBG Lactic Acid 2.9 H 07/28/24 18:45: Stool Occult Blood Positive A 07/28/24 21:03: Lactate 1.3 I & O for Last 24 hours: Intake & Output 07/25/24 07/26/24 07/27/24 07/28/24 23:59 23:59 23:59 23:59 Output Total 0 / 0 Balance 0 / 0 Weight 52.163 kg Constitutional Constitutional: no acute distress *Routine HEENT Exam Head: Present normocephalic Eye: Present EOMI and PERRL ENT: Present mucous membranes moist *Routine Neck Exam Neck: Present supple; Absent lymphadenopathy *Routine Respiratory Exam Respiratory: Present accessory muscle use and wheezes *Routine Cardiovascular Exam Cardiovascular: Present RRR *Routine Abdominal Exam Abdominal: Present soft and tenderness *Routine Rectal Exam Rectal:: deferred *Routine Genitalia Exam Genitalia:: deferred *Routine Extremities Exam Extremities: Absent cyanosis, clubbing or edema *Routine Skin Exam Skin: Present warm; Absent rash *Routine Neurological Exam Neurological: Present alert and oriented X3 Assessment and Plan *Assessment and plan (1) Acute on chronic respiratory failure with hypoxia and hypercapnia: Status: Acute Category: Medical Code(s): J96.21 - Acute and chronic respiratory failure with hypoxia; J96.22 - Acute and chronic respiratory failure with hypercapnia (2) Stercoral colitis: Status: Acute Category: Medical Code(s): K52.89 - Other specified noninfective gastroenteritis and colitis (3) Lung mass: Status: Acute Category: Medical Code(s): R91.8 - Other nonspecific abnormal finding of lung field (4) Chronic pain syndrome: Status: Acute Category: Medical Code(s): G89.4 - Chronic pain syndrome Plan #Acute on chronic hypoxic respiratory failure #AECOPD #RUL pulmonary masses - CT chest revealed two masses in the posterior right upper lobe which are stable but remain concerning for underlying neoplasia -known from previous admission - Duonegraciela scheduled and PRN. - Pulmicort BID. - Steroids and azithromycin -Pulmonology has seen patient in the past and noted masses, follows in the outpatient clinic #Fecal impaction #Stecoral colitis - Miralax daily. -Daily enemas #Hypertension Continue home medications once reconciled
[2024-07-29] VITALS (14 sets, daily range): BP systolic 112–148; BP diastolic 61–75; PULSE 70–114; RESP 17–20; TEMP 35.9–37; O2SAT 88–97; BMI 20.8
[2024-07-29] MEDS: PANTOPRAZOLE 40MG VIAL 40 MG IV ×3 (00:10→20:20)
[2024-07-29] MEDS: METHYLPREDNISOLONE SOD SUCC 40MG VIAL 40 MG IV ×3 (00:11→23:37)
[2024-07-29] MEDS: IPRATROPIUM/ALBUTEROL 3 ML NEB IH ×6 (01:47→22:45)
[2024-07-29] MEDS: BUDESONIDE 0.5MG/2ML NEB 0.5 MG IH ×2 (05:56→18:37)
[2024-07-29 06:17] LABS: Microscopic, Urine URINE MICROSCOPIC (MICROSCOPIC)
[2024-07-29 06:19] LABS: Appearance,Urine CLEAR (Clear); Bilirubin,Urine Negative (Negative); Blood, Urine Negative (Negative); Color,Urine YELLOW (Yellow); Glucose,Urine (UA) Negative (Negative); Ketones,Urine Negative (Negative); Leukocyte Esterase,Urine Negative (Negative); Nitrate,Urine Negative (Negative); Protein,Urine Negative (Negative); Urobilinogen,Urine 0.2 EU/dl (0.2)
[2024-07-29 06:27] LABS: Bacteria,Urine Trace /lpf
[2024-07-29 07:07] LABS: Basophils % 0.3 % (0.1-2.0); Eosinophils % 0.1 % (0.1-12.0); Hematocrit 28.4 % (37.0-47.0); Lymphocytes # 0.8 K/mm3 (0.7-4.5); Mean Corpuscular HGB Conc 32.4 g/dL (31.8-35.4); Mean Corpuscular Hemoglobin 31.2 pg (27.0-31.2); Mean Corpuscular Volume 96.3 fl (81-99); Mean Platelet Volume 8.7 fl (7.4-10.4); Monocytes # 0.1 K/mm3 (0.1-1.0); Monocytes % 0.9 % (1.7-9.3); Neutrophils # 9.4 K/mm3 (1.8-7.8); Neutrophils % 89.6 % (37.0-80.0); Platelet Count 360 K/mm3 (142-424); Red Blood Count 2.95 M/mm3 (4.20-5.40); Red Cell Distribution Width 13.2 % (11.5-17.5); White Blood Count 10.4 K/mm3 (4.8-10.8)
--- NOTE | 2024-07-29 07:09 | PC.NURSE ---
Pt does not know her home medications. She states her son could bring them tomorrow but she thinks she will likely go home.
[2024-07-29 07:17] LABS: Anion Gap 7.2 mEq/L (5-15); Blood Urea Nitrogen 21 mg/dl (7-17); Calcium 9.8 mg/dl (8.4-10.2); Carbon Dioxide 35 mmol/L (22.0-30.0); Chloride 94 mmol/L (98-107); Creatinine Clearance Estimated 43 mL/min (50-200); Estimated Glomerular Filt Rate 71 ml/min (>60); GFR (African American) 86 ML/MIN (>60); Glucose 112 mg/dl (74-100); Potassium 4.2 mmoL/L (3.5-5.1); Sodium 132 mmol/L (136-145)
[2024-07-29 07:28] LABS: Hemoglobin 9.2 g/dL (12.2-16.2)
--- NOTE | 2024-07-29 08:50 | HMH.PHAINT1 ---
Pharmacy Intervention Comments: VERIFIED MEDICATIONS WITH OUTPATIENT PHARMACY. CONFIRMED WITH PATIENT.
[2024-07-29] MEDS: MINERAL OIL ENEMA 133ML 133 ML RC (09:03)
[2024-07-29] MEDS: POLYETHYLENE GLYCOL 3350 17 GM PACKET PO (09:04)
[2024-07-29] MEDS: SODIUM CHLORIDE 0.9% 10ML VIAL 10 ML IV ×2 (09:04→20:21)
[2024-07-29] MEDS: AZITHROMYCIN 250MG TABLET 250 MG PO (09:05)
[2024-07-29] MEDS: LACTATED RINGERS 1000ML 1,000 ML 75 ML IV ×2 (11:42→23:37)
--- NOTE | 2024-07-29 13:59 | HMH.PTEV ---
Physical Therapy Evaluation Rehab PT IP Evaluation Start: 07/29/24 11:01 Freq: ONCE Status: Active Protocol: Document 07/29/24 13:51 CROW (Rec: 07/29/24 13:58 CROW [id number]) Subjective/History History History Per H&P: This is a 69-year- old female with a past medical history of COPD, known pulmonary mass, hypertension, lumbar radiculopathy on chronic pain medicine presents emergency department today with complaints of abdominal pain and vomiting. States that she has had increasing abdominal pain. Does have history of stercoral colitis on prior hospitalization in April. Presents in similar fashion. Also reports acute on chronic wheezing. Is on her home 2 L nasal cannula. Does endorse a history of COPD . Denies fever. Also endorses bowel movements but states they have been loose. Subjective Subjective Pt reports she lives with her son who is able to stay with her 04/02 if needed. Pt usually IND with mobility using a SPC for ambulation. Pt lives in a single-story home with [address] Pt [address] Son does the driving. I can't walk right now New diagnosis of cancer in past 12 No months? Rehab PT IP Eval Objective Appearance Patient Behavior Appropriate,Cooperative Patient Orientation Person,Place,Birthday, Situation Difficulty following instructions none Speech Pattern Clear Ambulation Patient Able to Ambulate No Balance Ability to Arise Able, uses arms to help Sitting Balance Steady, safe Standing Balance Unsteady Dynamic Sitting Balance Ability Good Transfers Bed Transfer Ability Minimal x 1 (25% assist) Sit to Stand Bed Transfer Ability Minimal x 1 (25% assist) Rehab PT IP prob,goals,plan Problems Date of Evaluation: 07/29/24 PT IP Problems Bed Mobility,Transfers,Gait, Balance,Self care,Safety Rehab Potential Rehab Potential Good Equipment Needs Assistive Devices Rolling / Wheeled Walker Plan PT Intervention Plan Bed Mobility,Transfers,Gait, Balance,Self care,Safety, Therapeutic Exercise Other Intervention Plan 1-2 times PT Plan Frequency Daily Duration LOS Discharge Goals Bed Transfer Ability Supervision/Stand by Sit to Stand Chair Transfer Ability Contact Guard/Hand Hold Ambulation Assistive Device Rolling Walker Ambulation Distance (feet) 10 Discharge Plan PT Discharge Plan Initial physical therapy evaluation performed. Patient presents below baseline at this time in functional mobility, transfers, and strength. Pt not safe to return home at this time d/t current level of functional mobility. PT recommending short-term rehabilitation stay upon d/c from [facility]. Pt would benefit from skilled PT while at [facility] to prevent further functional decline and maximize safety with mobility. PHYSICIAN CERTIFICATION: I certify the specified therapy services for Iqra Balbuena are required, authorized, and reviewed every 30 days.
--- NOTE | 2024-07-29 14:06 | SW/DCPLANNER ---
I spoke w/ this patient regarding plans once medically stable for discharge. PT/OT evaluated patient and recommended SNF level of care. Patient stated that she currently lives w/ her son and plans to return back home. I discussed home health vs outpatient PT and patient has refused both services. I will continue to follow up w/ this patient until medically stable for discharge. Per MD patient may discharge home tomorrow pending no setbacks.
--- NOTE | 2024-07-29 14:59 | HMH.OTEV ---
OT Inpatient Evaluation Rehab OT IP Evaluation Start: 07/29/24 11:01 Freq: ONCE Status: Active Protocol: [facility]24 [facility]53 [facility] (Rec: 07/29/24 14:58 [facility] [id number]) Rehab OT IP Assessment Subjective History Pt oriented x 3 on arrival. Pt agreeable to engage in therapy evaluation. Pt admitted on 07/28/24 due to abdominal pain and constipation. Per H&P: This is a 69-year- old female with a past medical history of COPD, known pulmonary mass, hypertension, lumbar radiculopathy on chronic pain medicine presents emergency department today with complaints of abdominal pain and vomiting. States that she has had increasing abdominal pain. Does have history of stercoral colitis on prior hospitalization in April. Presents in similar fashion. Also reports acute on chronic wheezing. Is on her home 2 L nasal cannula. Does endorse a history of COPD . Denies fever. Also endorses bowel movements but states they have been loose. Subjective Pt reports she lives with her son who is able to stay with her 04/02 if needed. Pt usually IND with functional transfers using a SPC for ambulation. Pt lives in a single-story home with [address] Pt [address] not drive. Son does the driving. Pt claims normally she is independent with all ADLs. Pt is able to complete simple IADLs, but son does most of heavier IADLs. I can't walk right now Objective Patient Orientation Person,Place,Birthday Right Upper Extremity Gross ROM Min Limitation <25% Left Upper Extremity Gross ROM Min Limitation <25% Shoulder ROM Limitations Muscle Weakness Elbow ROM Limitations Muscle Weakness Wrist Limitations of Range of Motion Muscle Weakness Bed Mobility bed mobility-scooting Assist Level Minimal x 1 (25% assist) Transfer Training Sit/Stand Transfer Assist Level Minimal x 1 (25% assist) Rehab OT IP prob,goals,plan Problems Date of Evaluation: 07/29/24 OT IP Problems Bed Mobility,Transfers,Balance ,Self care,Safety Rehab Potential Rehab Potential Good Equipment Needs Assistive Devices Rolling / Wheeled Walker Plan OT intervention Plan Bed Mobility,Transfers,Balance ,Self care,Safety,Therapeutic Exercise OT Plan Frequency Daily Duration LOS Discharge Goals Bed Mobility Ability Standby Assistance Sit to Stand Chair Transfer Ability Contact Guard/Hand Hold Chair Transfer Ability Contact Guard/Hand Hold Chair Transfer Technique Sit to/from Ambulatory Chair Transfer Assistive Devices Rolling Walker Feeding Ability Assist with Tray Set Up Lower Body Dressing Ability Moderate Assistance Upper Body Dressing Ability Minimal Assistance Bathing Ability Moderate Assistance Performing Toilet Hygiene Ability Minimal Assistance Overall Commode/Toilet Transfer Ability Contact Guard,Minimal Assistance Commode/Toilet Transfer Technique Sit to/from Ambulatory Commode/Toilet Transfer Assistive Grab Bars Devices Oral Care Assist Standby Assistance Decrease in Endurance Yes Discharge Plan OT Discharge Plan Pt will continue to be seen for OT services while at [facility]. At this time, pt would benefit most from short term rehab at [facility]. However, if patient is reluctant, pt could return home with 24/7 assist from son. If she does return home, therapist recommends OT evaluation for continued skilled therapy. Continued skilled therapy is important in order for patient to improve strength, safety, endurance, ADL independence, and functional transfers to reach PLOF. Eval Complexity Eval Charge Codes 71914 - Moderate Complexity PHYSICIAN CERTIFICATION: I certify the specified therapy services for Iqra Balbuena are required, authorized, and reviewed every 30 days.
--- NOTE | 2024-07-29 19:00 | EXP.PN ---
Subjective *Date: 07/29/24 *Time: 19:00 Interval history: Patient doing well today, has had a few small to moderate bowel movements. Anticipate discharge in the morning as patient continues to have bowel movements for bowel cleanout. Exam Data for Last 24 hours Vital signs and Labs for Last 24 Hours: Temp Pulse Resp BP Pulse Ox O2 Del Method O2 Flow Rate 98.3 F 104 H 17 140/68 92 L Room Air 2 07/29/24 16:00 07/29/24 18:39 07/29/24 16:00 07/29/24 16:00 07/29/24 18:39 07/29/24 18:39 07/29/24 16:00 Laboratory Results - last 24 hr 07/28/24 21:03: Lactate 1.3 07/29/24 06:13: Urine Color Yellow, Urine Appearance Clear, Urine pH 6.0, Ur Specific [place] 1.010, Urine Protein Negative, Urine Glucose (UA) Negative, Urine Ketones Negative, Urine Blood Negative, Urine Nitrate Negative, Urine Bilirubin Negative, Urine Urobilinogen 0.2, Ur Leukocyte Esterase Negative, Urine RBC None, Urine WBC None, Ur Squamous Epith Cells 5-10, Urine Bacteria Trace 07/29/24 06:24: WBC 10.4 D, RBC 2.95 L, Hgb 9.2 L D, Hct 28.4 L, MCV 96.3, MCH 31.2, MCHC 32.4, RDW 13.2, Plt Count 360, MPV 8.7, Neut % (Auto) 89.6 H, Lymph % (Auto) 8.0 L, [place] % (Auto) 0.9 L, Eos % (Auto) 0.1, Baso % (Auto) 0.3, Neut # (Auto) 9.4 H, Lymph # (Auto) 0.8, [place] # (Auto) 0.1, Eos # (Auto) 0.0, Baso # (Auto) 0.0, Sodium 132 L, Potassium 4.2, Chloride 94 L, Carbon Dioxide 35 H, Anion Gap 7.2, BUN 21 H, Creatinine 0.80, Estimated Creat Clear 43, Estimated GFR 71, Est GFR ( Amer) 86, Glucose 112 H, Calcium 9.8 I & O for Last 24 hours: Intake & Output 07/26/24 07/27/24 07/28/2415/25 23:59 23:59 23:59 23:59 Intake Total 980 / 980 Output Total 0 / 0 250 / 250 Balance 0 / 150 730 / 730 Weight 52.163 kg 51.313 kg Microbiology Reports for the Last 24 Hours: Microbiology 07/28/24 16:30 Blood Blood Culture - Preliminary NO GROWTH AFTER 24 HOURS 07/28/24 16:32 Blood Blood Culture - Preliminary NO GROWTH AFTER 24 HOURS Constitutional Constitutional: no acute distress *Routine HEENT Exam Head: Present normocephalic Eye: Present EOMI and PERRL ENT: Present mucous membranes moist *Routine Neck Exam Neck: Present supple; Absent lymphadenopathy *Routine Respiratory Exam Respiratory: Present CTA bilaterally *Routine Cardiovascular Exam Cardiovascular: Present RRR *Routine Abdominal Exam Abdominal: Present soft and normoactive bowel sounds; Absent tenderness *Routine Extremities Exam Extremities: Absent cyanosis, clubbing or edema *Routine Skin Exam Skin: Present warm; Absent rash *Routine Neurological Exam Neurological: Present alert and oriented X3 Assessment and Plan *Assessment and plan (1) Acute on chronic respiratory failure with hypoxia and hypercapnia: Status: Acute Category: Medical Code(s): J96.21 - Acute and chronic respiratory failure with hypoxia; J96.22 - Acute and chronic respiratory failure with hypercapnia (2) Stercoral colitis: Status: Acute Category: Medical Code(s): K52.89 - Other specified noninfective gastroenteritis and colitis (3) Lung mass: Status: Acute Category: Medical Code(s): R91.8 - Other nonspecific abnormal finding of lung field (4) Chronic pain syndrome: Status: Acute Category: Medical Code(s): G89.4 - Chronic pain syndrome Plan #Acute on chronic hypoxic respiratory failure #AECOPD #RUL pulmonary masses - CT chest revealed two masses in the posterior right upper lobe which are stable but remain concerning for underlying neoplasia -known from previous admission - Duonebs scheduled and PRN. - Pulmicort BID. - Steroids and azithromycin - Pulmonology has seen patient in the past and noted masses, follows in the outpatient clinic #Fecal impaction #Stecoral colitis - Given mineral oil, soapsuds enema today with small to moderate bowel movements. ? Anticipate discharge in the morning if patient continues to have bowel movements. ? Will consider GoLytely in the morning #Hypertension Continue home medications once reconciled
[2024-07-29] MEDS: ALPRAZolam 0.5MG TABLET 0.5 MG PO (20:21)
[2024-07-30] VITALS (12 sets, daily range): BP systolic 130–145; BP diastolic 66–84; PULSE 98–124; RESP 16–18; TEMP 36.4–36.6; O2SAT 83–99; BMI 20.7
[2024-07-30] MEDS: IPRATROPIUM/ALBUTEROL 3 ML NEB IH ×6 (02:53→22:37)
--- NOTE | 2024-07-30 03:54 | PC.NURSE ---
Pt is A/O X 4. Early in the shift she complained of small amount of abdominal discomfort and SOB. Pt did not have 02 on . Since then she has rested seemingly comfortably throughout shift. 02 on at 2 liters/nc. She has not had BM this shift. She is tolerating clear liquid diet.
[2024-07-30] MEDS: BUDESONIDE 0.5MG/2ML NEB 0.5 MG IH ×2 (06:20→18:10)
[2024-07-30 07:10] LABS: Basophils % 0.1 % (0.1-2.0); Hematocrit 24.6 % (37.0-47.0); Lymphocytes # 0.9 K/mm3 (0.7-4.5); Lymphocytes % 10.2 % (10-50); Mean Corpuscular HGB Conc 32.5 g/dL (31.8-35.4); Mean Corpuscular Hemoglobin 30.8 pg (27.0-31.2); Mean Corpuscular Volume 94.6 fl (81-99); Monocytes # 0.2 K/mm3 (0.1-1.0); Monocytes % 1.7 % (1.7-9.3); Neutrophils # 7.4 K/mm3 (1.8-7.8); Neutrophils % 86.6 % (37.0-80.0); Platelet Count 350 K/mm3 (142-424); Red Cell Distribution Width 12.8 % (11.5-17.5); White Blood Count 8.6 K/mm3 (4.8-10.8)
[2024-07-30 07:24] LABS: Alanine Aminotransferase 10 U/L (12-78); Albumin Level 2.9 g/dl (3.5-5.0); Albumin/Globulin Ratio 1.2 (1.1-1.8); Alkaline Phosphatase 47 U/L (38-126); Aspartate Amino Transferase 20 U/L (14-36); Blood Urea Nitrogen 18 mg/dl (7-17); Calcium 9.3 mg/dl (8.4-10.2); Carbon Dioxide 33 mmol/L (22.0-30.0); Chloride 96 mmol/L (98-107); Creatinine Clearance Estimated 43 mL/min (50-200); Estimated Glomerular Filt Rate 83 ml/min (>60); GFR (African American) 100 ML/MIN (>60); Globulin 2.4 g/dL (1.3-3.2); Glucose 121 mg/dl (74-100); Magnesium 1.7 mg/dl (1.6-2.3); Sodium 131 mmol/L (136-145); Total Protein,Serum 5.3 g/dl (6.3-8.2)
[2024-07-30 07:26] LABS: Bilirubin,Total < 0.1 mg/dl (0.2-1.3)
[2024-07-30 07:28] LABS: Anion Gap 6.3 mEq/L (5-15); Potassium 4.3 mmoL/L (3.5-5.1)
[2024-07-30] MEDS: POLYETHYLENE GLYCOL 3350 17 GM PACKET PO (08:37)
[2024-07-30] MEDS: AZITHROMYCIN 250MG TABLET 250 MG PO (08:37)
[2024-07-30] MEDS: SODIUM CHLORIDE 0.9% 10ML VIAL 10 ML IV ×2 (08:37→20:35)
[2024-07-30] MEDS: PANTOPRAZOLE 40MG VIAL 40 MG IV ×2 (08:37→20:35)
[2024-07-30] MEDS: MINERAL OIL ENEMA 133ML 133 ML RC (08:37)
[2024-07-30] MEDS: METHYLPREDNISOLONE SOD SUCC 40MG VIAL 40 MG IV (11:57)
[2024-07-30 12:28] LABS: Hematocrit 24.3 % (37.0-47.0); Hemoglobin 7.9 g/dL (12.2-16.2)
[2024-07-30] MEDS: LACTATED RINGERS 1000ML 1,000 ML 75 ML IV (16:01)
--- NOTE | 2024-07-30 18:18 | P.PN_ITS ---
Subjective *Date: 07/30/24 *Time: 18:18 Interval history: Continues to have bowel movements today. However, hemoglobin down trended. Will monitor overnight for anticipated discharge tomorrow. Exam Data for Last 24 hours Vital signs and Labs for Last 24 Hours: Temp Pulse Resp BP Pulse Ox O2 Del Method O2 Flow Rate 97.9 F 101 H 18 130/84 94 L Nasal Cannula 3 07/30/24 15:37 07/30/24 18:10 07/30/24 15:37 07/30/24 15:37 07/30/24 16:00 07/30/24 17:00 07/30/24 15:00 Laboratory Results - last 24 hr 07/30/24 06:15: WBC 8.6, RBC 2.60 L, Hgb 8.0 L D, Hct 24.6 L, MCV 94.6, MCH 30.8, MCHC 32.5, RDW 12.8, Plt Count 350, MPV 9.0, Neut % (Auto) 86.6 H, Lymph % (Auto) 10.2, [place] % (Auto) 1.7, Eos % (Auto) 0.0 L, Baso % (Auto) 0.1, Neut # (Auto) 7.4, Lymph # (Auto) 0.9, [place] # (Auto) 0.2, Eos # (Auto) 0.0, Baso # (Auto) 0.0, Sodium 131 L, Potassium 4.3, Chloride 96 L, Carbon Dioxide 33 H, Anion Gap 6.3, BUN 18 H, Creatinine 0.70, Estimated Creat Clear 43, Estimated GFR 83, Est GFR ( Amer) 100, Glucose 121 H, Calcium 9.3, Magnesium 1.7, Total Bilirubin < 0.1 L, AST 20 D, ALT 10 L D, Alkaline Phosphatase 47, Total Protein 5.3 L, Albumin 2.9 L, Globulin 2.4, Albumin/Globulin Ratio 1.2 07/30/24 12:20: Hgb 7.9 L, Hct 24.3 L I & O for Last 24 hours: Intake & Output 07/27/24 07/28/24 07/29/24 07/30/24 23:59 23:59 23:59 23:59 Intake Total 1355 / 1355 620 / 620 Output Total 0 / 0 250 / 250 0 / 0 Balance 0 / 150 1105 / 1105 620 / 620 Weight 52.163 kg 51.313 kg 51 kg Microbiology Reports for the Last 24 Hours: Microbiology 07/28/24 16:32 Blood Blood Culture - Preliminary NO GROWTH AFTER 48 HOURS 07/28/24 16:30 Blood Blood Culture - Preliminary NO GROWTH AFTER 48 HOURS Constitutional Constitutional: no acute distress *Routine HEENT Exam Head: Present normocephalic Eye: Present EOMI and PERRL ENT: Present mucous membranes moist *Routine Neck Exam Neck: Present supple; Absent lymphadenopathy *Routine Respiratory Exam Respiratory: Present CTA bilaterally *Routine Cardiovascular Exam Cardiovascular: Present RRR *Routine Abdominal Exam Abdominal: Present soft and normoactive bowel sounds; Absent tenderness *Routine Extremities Exam Extremities: Absent cyanosis, clubbing or edema *Routine Skin Exam Skin: Present warm; Absent rash *Routine Neurological Exam Neurological: Present alert and oriented X3 Assessment and Plan *Assessment and plan (1) Acute on chronic respiratory failure with hypoxia and hypercapnia: Status: Acute Category: Medical Code(s): J96.21 - Acute and chronic respiratory failure with hypoxia; J96.22 - Acute and chronic respiratory failure with hypercapnia (2) Stercoral colitis: Status: Acute Category: Medical Code(s): K52.89 - Other specified noninfective gastroenteritis and colitis (3) Lung mass: Status: Acute Category: Medical Code(s): R91.8 - Other nonspecific abnormal finding of lung field (4) Chronic pain syndrome: Status: Acute Category: Medical Code(s): G89.4 - Chronic pain syndrome Plan Iqra Balbuena is a 69-year-old female who was admitted for severe fecal impaction. #Fecal impaction #Stecoral colitis -Continue mineral oil, soapsuds enema with small to moderate bowel movements. ? Will consider GoLytely in the morning. #Acute anemia ? Initial hemoglobin 10.8, hemoglobin today 7.9. ? FOBT positive, however on the setting of severe fecal impaction and stercoral colitis. ? Will continue to monitor. If hemoglobin continues to trend down, will consult GI. ? Follow-up iron studies in the morning #Acute on chronic hypoxic respiratory failure #AECOPD #RUL pulmonary masses - CT chest revealed two masses in the posterior right upper lobe which are stable but remain concerning for underlying neoplasia -known from previous ad mission - Duonebs scheduled and PRN. - Pulmicort BID. - Steroids and azithromycin - Pulmonology has seen patient in the past and noted masses, follows in the outpatient clinic #Hypertension - Continue home medications once reconciled.
[2024-07-30] MEDS: ALPRAZolam 0.5MG TABLET 0.5 MG PO (20:35)
[2024-07-31] VITALS: BP 139/76; PULSE 54; RESP 16; TEMP 36.6; O2SAT 96
[2024-07-31] MEDS: METHYLPREDNISOLONE SOD SUCC 40MG VIAL 40 MG IV (00:43)
[2024-07-31] MEDS: IPRATROPIUM/ALBUTEROL 3 ML NEB IH ×3 (02:04→09:56)
[2024-07-31 04:00] VITALS: BP 153/78; PULSE 102; RESP 18; TEMP 36.6; O2SAT 99; BMI 20.9
--- NOTE | 2024-07-31 04:57 | PC.NURSE ---
Pt is A/O X 4. She is able to transfer to [facility] with assist of 1. She remains weak, shaky and unsteady. She has denied pain or increased SOA this shift. 02 on at 2 liters/nc. She is tolerating regular diet and denies BM this shift.
[2024-07-31] MEDS: BUDESONIDE 0.5MG/2ML NEB 0.5 MG IH (06:35)
[2024-07-31 06:56] LABS: Hematocrit 25.1 % (37.0-47.0); Lymphocytes # 0.7 K/mm3 (0.7-4.5); Lymphocytes % 8.3 % (10-50); Mean Corpuscular HGB Conc 31.9 g/dL (31.8-35.4); Mean Corpuscular Hemoglobin 30.5 pg (27.0-31.2); Mean Corpuscular Volume 95.8 fl (81-99); Mean Platelet Volume 9.2 fl (7.4-10.4); Monocytes # 0.2 K/mm3 (0.1-1.0); Monocytes % 1.9 % (1.7-9.3); Neutrophils # 7.9 K/mm3 (1.8-7.8); Neutrophils % 88.7 % (37.0-80.0); Platelet Count 359 K/mm3 (142-424); Red Blood Count 2.62 M/mm3 (4.20-5.40); Red Cell Distribution Width 13.7 % (11.5-17.5); White Blood Count 8.9 K/mm3 (4.8-10.8)
[2024-07-31 07:38] LABS: Alanine Aminotransferase 14 U/L (12-78); Albumin/Globulin Ratio 1.3 (1.1-1.8); Alkaline Phosphatase 47 U/L (38-126); Aspartate Amino Transferase 27 U/L (14-36); Blood Urea Nitrogen 16 mg/dl (7-17); Calcium 8.8 mg/dl (8.4-10.2); Carbon Dioxide 30 mmol/L (22.0-30.0); Chloride 96 mmol/L (98-107); Creatinine Clearance Estimated 43 mL/min (50-200); Estimated Glomerular Filt Rate 71 ml/min (>60); GFR (African American) 86 ML/MIN (>60); Globulin 2.4 g/dL (1.3-3.2); Glucose 110 mg/dl (74-100); Magnesium 1.9 mg/dl (1.6-2.3); Sodium 131 mmol/L (136-145); Total Protein,Serum 5.4 g/dl (6.3-8.2)
--- NOTE | 2024-07-31 07:40 | P.DS_ITS ---
General Admission date:: 07/28/24 HPI HPI HPI: This is a 69-year-old female with a past medical history of COPD, known pulmonary mass, hypertension, lumbar radiculopathy on chronic pain medicine presents emergency department today with complaints of abdominal pain and vomiting. States that she has had increasing abdominal pain. Does have history of stercoral colitis on prior hospitalization in April. Presents in similar fashion. Also reports acute on chronic wheezing. Is on her home 2 L nasal cannula. Does endorse a history of COPD. Denies fever. Also endorses bowel movements but states they have been loose. Emergency department workup notable for continued sterile coral colitis on CT imaging. Chest CT notable for severe/extensive emphysematous changes throughout the lungs with large spiculated nodules in the inferior right upper lobe concerning for neoplasm. White blood cell count of 17. Diffuse wheezing noted on exam. Mildly elevated CO2 of 65 but compensated with a pH of 7.33 occult positive stool. Multiple attempts for manual disimpaction attempted in the emergency department without success. Patient had significant pain. Significantly hard stool noted in the rectal vault. Given this she will be admitted to hospital service. Hospital Course Hospital Course Hospital Course: Iqra Balbuena is a 69-year-old female who was admitted for severe fecal impaction. #Fecal impaction #Stecoral colitis - Continue mineral oil, soapsuds enema. Has had multiple small to moderate bowel movements. - Discharged with Miralax daily. Advised to stay hydrated with water, eat fiber. #Acute anemia ? Initial hemoglobin 10.8, dipped to 7.9 during admission. Monitored for 24 hours, remained stable at 8.0. ? FOBT positive, however on the setting of severe fecal impaction and stercoral colitis. ? Patient adamantly declined referral to GI for colonscopy. #Acute on chronic hypoxic respiratory failure #RUL pulmonary masses #Chronic tobacco smoker - CT chest revealed two masses in the posterior right upper lobe which are stable but remain concerning for underlying neoplasia -known from previous admission. - Pulmonology has seen patient in the past and noted masses, follows in the outpatient clinic. Patient refuses further workup. Continues to smoke, no plans for cessation. #Hypertension - Continue home medications. Total time spent on discharge: 32 minutes on chart review, counseling, documentation, and direct care with patient. Exam Data for Last 24 hours Vital signs and Labs for Last 24 Hours: Temp Pulse Resp BP Pulse Ox O2 Del Method O2 Flow Rate 97.8 F 102 H 18 153/78 H 99 Nasal Cannula 2 07/31/24 04:00 07/31/24 04:00 07/31/24 04:00 07/31/24 04:00 07/31/24 04:00 07/31/24 06:59 07/31/24 06:59 Laboratory Results - last 24 hr 07/30/24 06:15: Hgb 8.0 L D 07/30/24 12:20: Hgb 7.9 L, Hct 24.3 L 07/31/24 06:06: WBC 8.9, RBC 2.62 L, Hgb 8.0 L, Hct 25.1 L, MCV 95.8, MCH 30.5, MCHC 31.9, RDW 13.7, Plt Count 359, MPV 9.2, Neut % (Auto) 88.7 H, Lymph % (Auto) 8.3 L, [place] % (Auto) 1.9, Eos % (Auto) 0.0 L, Baso % (Auto) 0.0 L, Neut # (Auto) 7.9 H, Lymph # (Auto) 0.7, [place] # (Auto) 0.2, Eos # (Auto) 0.0, Baso # (Auto) 0.0 I & O for Last 24 hours: Intake & Output 07/28/24 07/29/24 07/30/24 07/31/24 23:59 23:59 23:59 23:59 Intake Total 1355 / 1355 1000 / 1500 500 / 500 Output Total 0 / 0 250 / 250 0 / 0 0 / 0 Balance 0 / 150 1105 / 1105 1000 / 1500 500 / 500 Weight 52.163 kg 51.313 kg 51 kg 51.755 kg Microbiology Reports for the Last 24 Hours: Microbiology 07/28/24 16:32 Blood Blood Culture - Preliminary NO GROWTH AFTER 48 HOURS 07/28/24 16:30 Blood Blood Culture - Preliminary NO GROWTH AFTER 48 HOURS Constitutional Constitutional: no acute distress *Routine HEENT Exam Head: Present normocephalic Eye: Present EOMI and PERRL ENT: Present mucous membranes moist *Routine Neck Exam Neck: Present supple; Absent lymphadenopathy *Routine Respiratory Exam Respiratory: Present CTA bilaterally *Routine Cardiovascular Exam Cardiovascular: Present RRR *Routine Abdominal Exam Abdominal: Present soft and normoactive bowel sounds; Absent tenderness *Routine Extremities Exam Extremities: Absent cyanosis, clubbing or edema *Routine Skin Exam Skin: Present warm; Absent rash *Routine Neurological Exam Neurological: Present alert and oriented X3 Results Data Completed and Pending Labs on day of discharge: Labs from last 24 hours 07/31/24 07/30/24 07/30/24 06:06 12:20 06:15 WBC 8.9 RBC 2.62 L Hgb 8.0 L 7.9 L 8.0 L D Hct 25.1 L 24.3 L MCV 95.8 MCH 30.5 MCHC 31.9 RDW 13.7 Plt Count 359 MPV 9.2 Neut % (Auto) 88.7 H Lymph % (Auto) 8.3 L [place] % (Auto) 1.9 Eos % (Auto) 0.0 L Baso % (Auto) 0.0 L Neut # (Auto) 7.9 H Lymph # (Auto) 0.7 [place] # (Auto) 0.2 Eos # (Auto) 0.0 Baso # (Auto) 0.0 Preliminary micro results at discharge 07/28/24 16:32 Blood Culture - Preliminary Blood NO GROWTH AFTER 48 HOURS 07/28/24 16:30 Blood Culture - Preliminary Blood NO GROWTH AFTER 48 HOURS DS: Diagnosis Discharge Diagnosis (1) Acute on chronic respiratory failure with hypoxia and hypercapnia: Status: Acute Code(s): J96.21 - Acute and chronic respiratory failure with hypoxia; J96.22 - Acute and chronic respiratory failure with hypercapnia (2) Stercoral colitis: Status: Acute Code(s): K52.89 - Other specified noninfective gastroenteritis and colitis (3) Lung mass: Status: Acute Code(s): R91.8 - Other nonspecific abnormal finding of lung field (4) Chronic pain syndrome: Status: Acute Code(s): G89.4 - Chronic pain syndrome Meds Home Medications and Allergies Home Medications ?Medication ?Instructions ?Recorded ?Confirmed ?Type ipratropium 0.5 mg-albuterol 3 mg 3 ml inhalation QIDP PRN Shortness 07/03/21 07/29/24 History (2.5 mg base)/3 mL nebulization Of Breath soln fluticasone 250 mcg-salmeterol 50 1 inh inhalation BID 04/19/22 07/29/24 History mcg/dose blistr powdr for inhalation (Advair Diskus) albuterol sulfate 90 mcg/actuation 2 inh inhalation NEEDED PRN 04/15/24 07/29/24 History aerosol inhaler shortness of air alprazolam 1 mg tablet 1 mg PO BID 04/15/24 07/29/24 History calcium 600 mg (as 1 tab PO BID 04/15/24 07/29/24 History carbonate)-vitamin D3 5 mcg (200 unit) tablet celecoxib 50 mg capsule 50 mg PO DAILY 04/15/24 07/29/24 History cholecalciferol (vitamin D3) 1,250 1,250 mcg PO WEEKLY 04/15/24 07/29/24 History mcg (50,000 unit) capsule duloxetine 30 mg capsule,delayed 30 mg PO DAILY 04/15/24 07/29/24 History release gabapentin 800 mg tablet 800 mg PO DAILY 04/15/24 07/29/24 History hydrocodone 10 mg-acetaminophen 1 tab PO DAILY 04/15/24 07/29/24 History 325 mg tablet losartan 100 mg tablet 100 mg PO DAILY 04/15/24 07/29/24 History montelukast 10 mg tablet 10 mg PO DAILY 04/15/24 07/29/24 History potassium chloride 20 mEq 40 meq PO BID 04/15/24 07/29/24 History tablet,extended release(part/cryst) amlodipine 10 mg tablet 10 mg PO DAILY #30 tabs 04/16/24 07/29/24 Rx magnesium oxide 250 mg PO BID 07/29/24 07/29/24 History polyethylene glycol 3350 17 17 g PO DAILY #510 grams 07/31/24 Rx gram/dose oral powder (Miralax) New Prescriptions to Start Prescriptions: polyethylene glycol 3350 [Miralax] Sulaiman Butt Allergies Allergy/AdvReac Type Severity Reaction Status Date / Time No Known Allergies Allergy Verified 07/28/24 21:23 Discharge Plan Disposition Patient Disposition: Home, Self-Care Condition: Fair Discharge Order Discharge Orders: Discharge Order (Routine); Ordered 07/31/24 Ordered By: Sulaiman Butt Follow up Plan Follow up with: Stephanie Espinoza APRN [Primary Care Provider] - 08/03/24 10:00 am Srini Gan MD [Physician] - 08/14/24 10:00 am Prescriptions/Medication Reconciliation: New polyethylene glycol 3350 [Miralax] 17 gram/dose powder 17 g PO DAILY Qty: 510 0RF Continued ipratropium-albuterol 0.5 mg-3 mg(2.5 mg base)/3 mL solution for nebulization 3 ml INHALATION QIDP PRN (Reason: Shortness Of Breath) magnesium oxide 250 mg magnesium tablet 250 mg PO BID fluticasone propion-salmeterol [Advair Diskus] 250-50 mcg/dose blister with device 1 inh INHALATION BID alprazolam 1 mg tablet 1 mg PO BID montelukast 10 mg tablet 10 mg PO DAILY losartan 100 mg tablet 100 mg PO DAILY celecoxib 50 mg capsule 50 mg PO DAILY duloxetine 30 mg capsule,delayed release(DR/EC) 30 mg PO DAILY calcium carbonate-vitamin D3 600 mg-5 mcg (200 unit) tablet 1 tab PO BID Rx Instructions: with meals hydrocodone-acetaminophen 10-325 mg tablet 1 tab PO DAILY gabapentin 800 mg tablet 800 mg PO DAILY cholecalciferol (vitamin D3) 1,250 mcg (50,000 unit) capsule 1,250 mcg PO WEEKLY albuterol sulfate 90 mcg/actuation HFA aerosol inhaler 2 inh INHALATION NEEDED PRN (Reason: shortness of air) potassium chloride 20 mEq tablet,ER particles/crystals 40 meq PO BID Rx Instructions: with food amlodipine 10 mg Tablet 10 mg PO DAILY Qty: 30 0RF Problem Reconciliation Problems Reviewed?: Yes Patient Discharge Instructions Patient Instructions: DI for Constipation Print Language: British Providers Primary Care Provider: Stephanie Espinoza Admit Provider: Teja Blair Attending Provider: Teja Blair
[2024-07-31 07:41] LABS: Bilirubin,Total < 0.1 mg/dl (0.2-1.3)
--- NOTE | 2024-07-31 07:59 | HMH.PHAINT1 ---
Pharmacy Intervention Comments: COUNSELED PATIENT ON NEW MEDICATION PRIOR TO DISCHARGE. PATIENT VERBALIZED UNDERSTANDING.
[2024-07-31 08:00] VITALS: BP 117/52; PULSE 104; RESP 22; TEMP 36.8; O2SAT 96
[2024-07-31 08:14] LABS: Iron 59 ug/dL (37-170)
[2024-07-31 08:23] LABS: Total Iron Binding Capacity 224 ug/dL (265-497)
[2024-07-31] MEDS: PANTOPRAZOLE 40MG VIAL 40 MG IV (08:31)
[2024-07-31] MEDS: POLYETHYLENE GLYCOL 3350 17 GM PACKET PO (08:31)
[2024-07-31] MEDS: SODIUM CHLORIDE 0.9% 10ML VIAL 10 ML IV (08:31)
[2024-07-31] MEDS: AZITHROMYCIN 250MG TABLET 250 MG PO (08:32)
[2024-07-31 09:33] LABS: Ferritin 125 ng/ml (11.1-264)
[2024-07-31 09:57] VITALS: PULSE 78; PULSE 80
--- NOTE | 2024-08-03 11:51 | SW/DCPLANNER ---
Spoke with patient on the phone. Patient stated that she is doing alot better. Patient stated that she is aware of her upcoming appointments. Patient stated that her medicine was brought [facility]. Patient stated that she has no concern or questions at this time. Leonel Thomas
== END 2024-07-31 10:40 | disposition home or self-care (01) | DRG 388 ==
LOC: ER 19:39 → 2ND 21:15
PROVIDERS: Nurse Practitioner Acute Care; Physician Assistant; Student in an Organized Health Care Education/Training Program; Admitting Provider Internal Medicine Adolescent Medicine; Emergency Provider Emergency Medicine; PCP Nurse Practitioner; Visit Provider Internal Medicine Adolescent Medicine
DX: K56.41 Fecal impaction (principal); J96.21 Acute and chronic respiratory failure with hypoxia; J44.1 Chronic obstructive pulmonary disease with (acute) exacerbation; K52.89 Other specified noninfective gastroenteritis and colitis; R91.8 Other nonspecific abnormal finding of lung field; D64.9 Anemia, unspecified; F17.210 Nicotine dependence, cigarettes, uncomplicated; J43.9 Emphysema, unspecified; M54.16 Radiculopathy, lumbar region; E87.6 Hypokalemia; I10 Essential (primary) hypertension; Z79.899 Other long term (current) drug therapy; Z85.41 Personal history of malignant neoplasm of cervix uteri; Z99.81 Dependence on supplemental oxygen; Z79.51 Long term (current) use of inhaled steroids
CPT/HCPCS: 36415; 74177; 80048; 80053; 81001; 82272; 82728; 82803; 83540; 83550; 83605; 83690; 83735; 84145; 85007; 85014; 85018; 85025; 85610; 86803; 87040; 87389; 93005; 94640; 94761; 97166; 97535; 99291; G0328; J0131; J1171; J2405; J2543; J2919; J7120; J7620; Q9967

== ENCOUNTER 2024-08-15 16:53 | Observation (INO) | payer MEDICARE, SELFPAY ==
[2024-08-15] VITALS (18 sets, daily range): BP systolic 151–196; BP diastolic 78–143; PULSE 58–121; RESP 16–26; TEMP 36.5–36.6; O2SAT 93–100; BMI 21.9; BMI 19.3
--- NOTE | 2024-08-15 17:02 | XR_ITS ---
PROCEDURE INFORMATION: Exam: XR Chest Exam date and time: 08/15/2024 5:14 PM Age: 69 years old Clinical indication: Shortness of breath; Additional info: SOA TECHNIQUE: Imaging protocol: Radiologic exam of the chest. Views: 1 view. COMPARISON: 1. CT ANGIO CHEST PE PROTOCOL 05/01/2024 2:50 PM 2. CR XR CHEST 2V 05/01/2024 1:31 PM FINDINGS: Lungs: Interval development of a bandlike increased density overlying the left lung base and 10th posterior rib. Lungs are otherwise clear. Pleural spaces: Unremarkable. No pleural effusion. No pneumothorax. Heart/Mediastinum: Unremarkable. No cardiomegaly. Bones/joints: Unremarkable. IMPRESSION: Interval development of bandlike increased density over the left lung base and retrocardiac region. This may be technical related to portable technique with rotation to the left. Developing atelectasis or airspace opacity can not be entirely excluded. Advise short-term follow-up PA and lateral view of the chest in 3-4 weeks to see if this finding persists or worsens.
--- NOTE | 2024-08-15 17:04 | XR_ITS ---
PROCEDURE INFORMATION: Exam: XR Left Foot Exam date and time: 08/15/2024 5:14 PM Age: 69 years old Clinical indication: Other: Stepped on L foot TECHNIQUE: Imaging protocol: Radiologic exam of the left foot. Views: 3 or more views. COMPARISON: US ARTERIAL LOWER EXT REST 10/17/2021 10:34 AM FINDINGS: Bones/joints: No acute fracture identified. Soft tissues: Severe soft tissue swelling over the dorsal mid to distal foot noted. IMPRESSION: Soft tissue swelling.
--- NOTE | 2024-08-15 17:08 | ED_ITS ---
Discharge Plan Disposition Patient Disposition: Admitted Condition: Fair Clinical Impressions Clinical Impression: COPD (chronic obstructive pulmonary disease) Qualifiers: COPD type: emphysema Emphysema type: panlobular Qualified Code(s): J43.1 - Panlobular emphysema Discharge ED Provider: Rey Mccabe General Adult HPI <Nicole Marin APRN - Last Filed: 08/15/24 20:34> General Chief complaint: Shortness of Breath/Dyspnea Stated complaint: Feet, legs swelling Time Seen by Provider: 08/15/24 16:55 Mode of Arrival: Wheelchair Source of Information: Patient Limitations: No Limitations Description of Symptoms (Recalled from ER Triage Doc. by RN): swelling to ble. increased shortness of breath. History of Present Illness HPI narrative: 69-year-old female presents to the ED with complaints of bilateral lower extremity edema over the past 2 days, also notes that she had a left foot injury several days ago when her son accidentally stepped on the lateral aspect of her left foot. Related Data Home Medications ?Medication ?Instructions ?Recorded ?Confirmed ipratropium 0.5 mg-albuterol 3 mg 3 ml inhalation QIDP PRN Shortness 07/03/21 08/15/24 (2.5 mg base)/3 mL nebulization Of Breath soln fluticasone 250 mcg-salmeterol 50 1 inh inhalation BID 04/19/22 08/15/24 mcg/dose blistr powdr for inhalation (Advair Diskus) albuterol sulfate 90 mcg/actuation 2 inh inhalation NEEDED PRN 04/15/24 08/15/24 aerosol inhaler shortness of air alprazolam 1 mg tablet 1 mg PO BID 04/15/24 08/15/24 calcium 600 mg (as 1 tab PO BID 04/15/24 08/15/24 carbonate)-vitamin D3 5 mcg (200 unit) tablet celecoxib 50 mg capsule 50 mg PO DAILY 04/15/24 08/15/24 cholecalciferol (vitamin D3) 1,250 1,250 mcg PO WEEKLY 04/15/24 08/15/24 mcg (50,000 unit) capsule duloxetine 30 mg capsule,delayed 30 mg PO DAILY 04/15/24 08/15/24 release gabapentin 800 mg tablet 800 mg PO DAILY 04/15/24 08/15/24 hydrocodone 10 mg-acetaminophen 1 tab PO DAILY 04/15/24 08/15/24 325 mg tablet losartan 100 mg tablet 100 mg PO DAILY 04/15/24 08/15/24 montelukast 10 mg tablet 10 mg PO DAILY 04/15/24 08/15/24 potassium chloride 20 mEq 40 meq PO BID 04/15/24 08/15/24 tablet,extended release(part/cryst) magnesium oxide 250 mg PO BID 07/29/24 08/15/24 Previous Rx's ?Medication ?Instructions ?Recorded amlodipine 10 mg tablet 10 mg PO DAILY #30 tabs 04/16/24 polyethylene glycol 3350 17 17 g PO DAILY #510 grams 07/31/24 gram/dose oral powder (Miralax) Allergies Allergy/AdvReac Type Severity Reaction Status Date / Time No Known Allergies Allergy Verified 07/28/24 21:23 [facility] <Nicole Marin APRN - Last Filed: 08/15/24 20:34> [facility] Disclaimer: The information contained in this section may have been updated after the patient was seen, as this information can be updated by other users. Medical History COPD mixed type Lung nodule Hypokalemia Elevated troponin COPD (chronic obstructive pulmonary disease) Nocturnal hypoxemia Pulmonary emphysema Incidental pulmonary nodule, greater than or equal to 8mm Smoking greater than 30 pack years Dyspnea on exertion Tobacco abuse disorder Tobacco abuse counseling COPD (chronic obstructive pulmonary disease) Cervical cancer Surgical History History of dilation and curettage History of back surgery Family History Other Diabetes Social History Smoking Status: Current every day smoker tobacco type: cigarettes packs per day: 2 second hand exposure: Yes alcohol intake: current alcohol intake frequency: 0-2 drinks per day current occupational status: unemployed Travel in the last 8 weeks: None household members: spouse housing: house current occupational exposures/hazards: No Have you lived/traveled outside [place] in past 30 days?: No Contact w/someone who lives/traveled outside [place] past 30 days?: No Exposure to someone with infectious disease in past 14 days?: No Do you have a fever (greater than 100.4 F or 38 C)?: No Have you tested positive for COVID-19: No Exposed to someone with COVID-19 in past 14 days?: No Do you have a sore throat?: No Do you have a cough?: No Do you have any weakness?: No Do you have any diarrhea?: No Are you experiencing any unusual bleeding?: No Do you have any muscle aches/pain?: No Do you have any abdominal pain?: No Are you experiencing loss of taste or smell?: No Other Medical History Have you received the Flu Vaccine for this season: No Have you received the Pneumonia Vaccine: No <Nicole Marin APRN - Last Filed: 08/15/24 20:34> ROS Obtained: Yes Systems reviewed as appropriate & no additional complaints except as documented Physical Exam <Nicole Marin APRN - Last Filed: 08/15/24 20:34> General General appearance: alert Head Head exam: atraumatic and normocephalic Eye Eye exam: Present normal appearance and PERRL; Absent nystagmus ENT ENT exam: Present normal exam Neck Neck exam: Present normal inspection Chest Chest inspection: Present normal inspection and symmetric chest wall rise; Absent tenderness Respiratory Respiratory exam: Present respiratory distress, wheezes and other (bilateral decreased) Cardiovascular Cardiovascular exam: Present regular rate Abdominal Exam Abdominal exam: Present soft and normal bowel sounds; Absent tenderness Extremities Exam Extremities exam: Present normal inspection and full ROM Back Exam Back exam: Present normal inspection and full ROM; Absent tenderness Neurological Exam Neurological exam: Present alert and oriented X3 Psychiatric Psychiatric exam: Present normal affect and normal mood Skin Skin exam: Present warm and dry Medical Decision Making <Nicole Marin APRN - Last Filed: 08/15/24 20:34> Medical Records Screening: Per USPSTF and CDC recommendations, given the prevalence of disease in our region, it is our hospital?s policy to screen for HIV and viral Hepatitis for all patients aged 18 and over and those with ongoing risk factors. Azael Inquiry Pt receiving controlled substance: No Vital Signs: 08/15/24 16:54 08/15/24 17:00 08/15/24 17:15 Temperature 97.8 F Temperature Source Oral Pulse Rate 58 L 96 H Pulse Rate [Right] 82 Respiratory Rate 26 H Blood Pressure 196/122 H 166/94 H Blood Pressure [Right Arm] 192/122 H Blood Pressure Mean Blood Pressure Mean [Right Arm] 145 Blood Pressure Source Blood Pressure Position 02 Sat by Pulse Oximetry 93 L 93 L 99 Oxygen Delivery Method Nasal Cannula Nasal Cannula Nasal Cannula Oxygen Flow Rate (LPM) 2 2 2 08/15/24 17:30 08/15/24 17:44 08/15/24 18:00 Temperature Temperature Source Pulse Rate 79 100 H Pulse Rate [Right] Respiratory Rate Blood Pressure 176/91 H 158/97 H 194/95 H Blood Pressure [Right Arm] Blood Pressure Mean 105 Blood Pressure Mean [Right Arm] Blood Pressure Source Blood Pressure Position 02 Sat by Pulse Oximetry 100 99 Oxygen Delivery Method Nasal Cannula Nasal Cannula Oxygen Flow Rate (LPM) 2 2 08/15/24 18:15 08/15/24 18:30 08/15/24 18:45 Temperature Temperature Source Pulse Rate Pulse Rate [Right] Respiratory Rate Blood Pressure 154/92 H 158/97 H 166/92 H Blood Pressure [Right Arm] Blood Pressure Mean 112 117 116 Blood Pressure Mean [Right Arm] Blood Pressure Source Blood Pressure Position 02 Sat by Pulse Oximetry 98 Oxygen Delivery Method Oxygen Flow Rate (LPM) 08/15/24 19:00 08/15/24 19:30 08/15/24 19:45 Temperature Temperature Source Pulse Rate 69 121 H 112 H Pulse Rate [Right] Respiratory Rate Blood Pressure 153/87 H 151/92 H 165/99 H Blood Pressure [Right Arm] Blood Pressure Mean 109 Blood Pressure Mean [Right Arm] Blood Pressure Source Blood Pressure Position 02 Sat by Pulse Oximetry 99 100 100 Oxygen Delivery Method Oxygen Flow Rate (LPM) 08/15/24 20:00 08/15/24 20:00 08/15/24 20:15 Temperature Temperature Source Pulse Rate 110 H Pulse Rate [Right] Respiratory Rate Blood Pressure 170/87 H 156/88 H 177/95 H Blood Pressure [Right Arm] Blood Pressure Mean 124 127 Blood Pressure Mean [Right Arm] Blood Pressure Source Blood Pressure Position 02 Sat by Pulse Oximetry 100 98 98 Oxygen Delivery Method Oxygen Flow Rate (LPM) 08/15/24 20:19 08/15/24 20:29 08/15/24 20:31 Temperature 97.9 F Temperature Source Oral Pulse Rate 105 H 107 H Pulse Rate [Right] Respiratory Rate 16 Blood Pressure 177/95 H 175/143 H Blood Pressure [Right Arm] Blood Pressure Mean Blood Pressure Mean [Right Arm] Blood Pressure Source Automatic Cuff Blood Pressure Position Supine 02 Sat by Pulse Oximetry 98 Oxygen Delivery Method Nasal Cannula Nasal Cannula Oxygen Flow Rate (LPM) 1 1.5 Lab Data Lab Results 08/15/24 17:02: VBG pH 7.41, VBG pCO2 55.6 H, VBG pO2 44.4 H, VBG HCO3 34.5 H, V BG Total CO2 36.2 H, VBG O2 Saturation 79.8 H, VBG Base Excess 9.8 H, VBG Lactic Acid 1.9 08/15/24 17:10: WBC 8.9, RBC 3.48 L, Hgb 10.9 L, Hct 33.4 L, MCV 96.0, MCH 31.3 H, MCHC 32.6, RDW 13.7, Plt Count 232, MPV 8.7, Neut % (Auto) 69.4, Lymph % (Auto) 23.1, Branch % (Auto) 5.8, Eos % (Auto) 1.0, Baso % (Auto) 0.4, Neut # (Auto) 6.2, Lymph # (Auto) 2.1, Branch # (Auto) 0.5, Eos # (Auto) 0.1, Baso # (Auto) 0.0, Sodium 134 L, Potassium 2.5 L*, Chloride 89 L, Carbon Dioxide 39 H, Anion Gap 8.5, BUN 9, Creatinine 0.80, Estimated Creat Clear 46, Estimated GFR 71, Est GFR ( Amer) 86, Glucose 110 H, Calcium 9.3, Total Bilirubin 0.7, AST 21, ALT 14, Alkaline Phosphatase 68, Troponin I < 0.01, NT-Pro-B Natriuret Pep 488 H, Total Protein 6.6, Albumin 4.3, Globulin 2.3, Albumin/Globulin Ratio 1.9 H 08/15/24 18:40: SARS-CoV-2 (PCR) Not detected, Influenza A Untype (PCR) Not detected, Influenza Type B (PCR) Not detected 08/15/24 20:40: Chlamy pneumoniae PCR Not detected, Adenovirus (PCR) Not detected, B. pertussis DNA (PCR) Not detected, Coronavirus OC43 (PCR) Not detected, Coronavirus HKU1 (PCR) Not detected, Coronavirus 229E (PCR) Not detected, SARS-CoV-2 (PCR) Not detected, Coronavirus NL63 (PCR) Not detected, Human Metapneumovir PCR Not detected, Influenza A (H1) PCR Not detected, Influ A (H1N1/09) PCR Not detected, Influenza A (H3) PCR Not detected, Influenza Type A (PCR) Not detected, Influenza Type B (PCR) Not detected, M. pneumoniae (PCR) Not detected, Parainfluenza 1 (PCR) Not detected, Parainfluenza 2 (PCR) Not detected, Parainfluenza 3 (PCR) Not detected, Parainfluenza 4 (PCR) Not detected, RSV (PCR) Not detected, Entero/Rhino (PCR) Not detected 08/15/24 17:10 08/15/24 17:10 Orders (Tests/Meds): ED MEDICATIONS Generic Name Dose Route Start Last Admin Trade Name Freq PRN Reason Stop Dose Admin Acetaminophen 650 mg 08/15/24 20:29 Acetaminophen 325mg Tab PO 09/14/24 20:28 Q4HP PRN Fever or Mild Pain (1-3) Hydrocodone Bitart/Acetaminophen 1 tab 08/15/24 20:29 Hydrocodone/Apap 5/325 Mg Tablet PO 09/14/24 20:28 Q4HP PRN Mild to Moderate Pain (1-6) Albuterol/Ipratropium 3 ml 08/16/24 00:00 Ipratropium/Albuterol 3 Ml Neb IH 09/15/24 00:00 Q6RT VICENTE Doxycycline Hyclate 100 mg 08/16/24 09:00 Doxycycline Hycl 100 Mg Tablet PO 08/26/24 08:59 BID VICENTE Enoxaparin Sodium 40 mg 08/16/24 09:00 Enoxaparin 40mg/0.4ml Syringe SUBCUT 09/15/24 08:59 DAILY VICENTE Furosemide 40 mg 08/16/24 09:00 Furosemide 40mg/4ml Vial IV 09/15/24 08:59 DAILY VICENTE Azithromycin 500 mg/ Sodium 250 mls @ 250 mls/hr 08/15/24 17:15 08/15/24 18:00 Chloride IV 08/25/24 17:14 250 mls/hr Q24H VICENTE Administration Montelukast Sodium 10 mg 08/16/24 18:00 Montelukast Sodium 10mg Tab PO 09/15/24 17:59 PM [facility] Ondansetron HCl 4 mg 08/15/24 20:29 Ondansetron 4mg/2ml Vial IV 09/14/24 20:28 Q8HP PRN Nausea Prednisone 40 mg 08/16/24 09:00 Prednisone 20mg Tab PO 09/15/24 08:59 DAILY VICENTE Discontinued Medications Generic Name Dose Route Start Last Admin Trade Name Freq PRN Reason Stop Dose Admin Albuterol/Ipratropium 3 ml 08/15/24 17:15 08/15/24 22:06 Ipratropium/Albuterol 3 Ml [facility] 09/14/24 17:14 Not Given Q1H VICENTE Albuterol/Ipratropium 3 ml 08/15/24 18:49 08/15/24 21:44 Ipratropium/Albuterol 3 Ml [facility] 08/15/24 18:50 Not Given ONCE ONE Albuterol/Ipratropium 3 ml 08/15/24 18:50 08/15/24 21:45 Ipratropium/Albuterol 3 Ml [facility] 08/15/24 18:51 Not Given ONCE ONE Potassium Chloride/Water 100 mls @ 100 mls/hr 08/15/24 18:12 08/15/24 20:03 Potassium Chloride 10meq/100ml Ivpb IV 08/15/24 19:11 100 mls/hr ONCE ONE Administration Magnesium Sulfate 2 gm in 50 mls @ 50 mls/hr 08/15/24 18:49 08/15/24 20:08 Magnesium Sulfate 2gm/50ml Premix IV 08/15/24 19:48 50 mls/hr ONCE ONE Administration Potassium Chloride/Water 100 mls @ 50 mls/hr 08/15/24 18:55 08/15/24 21:45 Potassium Chloride 20meq/100ml Ivpb IV 08/15/24 20:54 Not Given ONCE ONE Methylprednisolone Sodium Succinate 125 mg 08/15/24 18:49 08/15/24 20:11 Methylprednisolone Sod Succ 125mg Vial IV 08/15/24 18:50 125 mg ONCE ONE Administration Potassium Chloride 40 meq 08/15/24 18:55 08/15/24 20:09 Potassium Chloride 20meq Tab PO 08/15/24 18:56 40 meq ONCE ONE Administration Potassium Chloride 40 meq 08/15/24 20:29 08/15/24 21:51 Potassium Chloride 20meq Tab PO 08/15/24 20:30 40 meq ONCE ONE Administration ORDERS Category Date Time Status CXR --portable [XR chest portable] Stat Exams 08/15/24 17:02 Completed Foot XR left minimum 3 views [XR foot LT min 3V] Stat Exams 08/15/24 17:04 Completed BNP [NT Pro Brain Natriuretic Pep.] Stat Lab 08/15/24 17:10 Completed Basic Metabolic Panel AMLAB Lab 08/16/24 06:00 Ordered CBC w/Auto Diff [Complete Blood Count Auto Diff] Stat Lab 08/15/24 17:10 Completed CMP [Comprehensive Metabolic Panel] Stat Lab 08/15/24 17:10 Completed Complete Blood Count Auto Diff AMLAB Lab 08/16/24 06:00 Ordered Full Resp Panel w/COVID ([facility]) Routine Lab 08/15/24 20:40 Completed Rapid PCR Covid and Flu A/B Stat Lab 08/15/24 18:40 Completed Trop I [Troponin I] Stat Lab 08/15/24 17:10 Completed Blood Culture Stat Micro 08/15/24 17:55 Received VBG [Venous Blood Gas] Stat RT 08/15/24 17:02 Completed HEART Score History (anamnesis): Moderately suspicious ECG: Non-specific disturbance Age: >65 years Risk factors: 1-2 risk factors Troponin: </= normal limit HEART Score: 5 Medical Decision Narrative: In summary, patient is a 69-year-old female PHMx acute on chronic respiratory failure, history of sepsis, stercoral colitis, lung mass, COPD, history of hypokalemia, history of hyponatremia, hypertension, pulmonary emphysema, tobacco use disorder who presents to the emergency department for evaluation of bilateral lower extremity edema and dyspnea. Patient states her bilateral lower extremity has been present for approximately 2 days, reports that her son stepped on the left lateral aspect of her foot 2 days ago. She normally wears 1L NC at home however has increased to 2 L due to shortness of breath. Patient states she has smoked approximately 2 packs of cigarettes per day x 40 years. Upon arrival, patient is hypertensive and tachypneic, visibly short of breath. Physical exam remarkable for tachypnea, bilateral decreased lung sounds, bilateral wheezing. Abdomen is soft and nontender. Bilateral lower extremity 1+ pitting edema, left foot lateral aspect edema, tenderness. Sensation and neurovascular status intact. Denies fever, chills, body aches, headache, posterior neck pain, chest pain, abdominal pain, nausea, vomiting. Differential diagnosis includes ACS, dissection, COPD exacerbation, acute on chronic respiratory failure, pulmonary embolism, pneumonia, pneumothorax, among others. Initial workup will be conducted with CXR, left foot x-ray, labs including blood cultures, VBG, EKG. Initial inventions include DuoNeb and IV azithromycin. Will consider IV Solu-Medrol pending serum lab results. Initial workup reviewed by me. CBC unremarkable for any leukocytosis, stable H&H (improved from prior). CMP remarkable for sodium 134, potassium 2.5 (patient admits she is not compliant with potassium PO at home therefore administered IV and PO), BNP 488, albumin 1.9. VBG pCO2 55.6, pO2 44.4, HCO3 34.5, total CO2 36.2, O2 saturation 79.8, lactic acid 1.9. Troponin < 0.01. Left foot x-ray remarkable for soft tissue swelling, no fracture. Chest x-ray formal read remarkable for interval development of a bandlike increased density overlying the left lung base at the 10th posterior rib, lungs clear otherwise. Upon repeat evaluation after DuoNeb, patient's lung sounds remain the same. Will proceed with IV Solu-Medrol and additional DuoNebs. Upon reassessment after additional interventions, patient states she feels like she has mild improvement however still feels short of breath. Shared decision making used, discussed admission with patient she is agreeable to be admitted to hospital medicine at this time for COPD exacerbation, chronic hypercapnea, hypokalemia and hyponatremia. <Rey Mccabe MD - Last Filed: 08/15/24 23:26> Vital Signs: 08/15/24 16:54 08/15/24 17:00 08/15/24 17:15 Temperature 97.8 F Temperature Source Oral Pulse Rate 58 L 96 H Pulse Rate [Right] 82 Respiratory Rate 26 H Blood Pressure 196/122 H 166/94 H Blood Pressure [Right Arm] 192/122 H Blood Pressure Mean Blood Pressure Mean [Right Arm] 145 Blood Pressure Source Blood Pressure Position 02 Sat by Pulse Oximetry 93 L 93 L 99 Oxygen Delivery Method Nasal Cannula Nasal Cannula Nasal Cannula Oxygen Flow Rate (LPM) 2 2 2 08/15/24 17:30 08/15/24 17:44 08/15/24 18:00 Temperature Temperature Source Pulse Rate 79 100 H Pulse Rate [Right] Respiratory Rate Blood Pressure 176/91 H 158/97 H 194/95 H Blood Pressure [Right Arm] Blood Pressure Mean 105 Blood Pressure Mean [Right Arm] Blood Pressure Source Blood Pressure Position 02 Sat by Pulse Oximetry 100 99 Oxygen Delivery Method Nasal Cannula Nasal Cannula Oxygen Flow Rate (LPM) 2 2 08/15/24 18:15 08/15/24 18:30 08/15/24 18:45 Temperature Temperature Source Pulse Rate Pulse Rate [Right] Respiratory Rate Blood Pressure 154/92 H 158/97 H 166/92 H Blood Pressure [Right Arm] Blood Pressure Mean 112 117 116 Blood Pressure Mean [Right Arm] Blood Pressure Source Blood Pressure Position 02 Sat by Pulse Oximetry 98 Oxygen Delivery Method Oxygen Flow Rate (LPM) 08/15/24 19:00 08/15/24 19:30 08/15/24 19:45 Temperature Temperature Source Pulse Rate 69 121 H 112 H Pulse Rate [Right] Respiratory Rate Blood Pressure 153/87 H 151/92 H 165/99 H Blood Pressure [Right Arm] Blood Pressure Mean 109 Blood Pressure Mean [Right Arm] Blood Pressure Source Blood Pressure Position 02 Sat by Pulse Oximetry 99 100 100 Oxygen Delivery Method Oxygen Flow Rate (LPM) 08/15/24 20:00 08/15/24 20:00 08/15/24 20:15 Temperature Temperature Source Pulse Rate 110 H Pulse Rate [Right] Respiratory Rate Blood Pressure 170/87 H 156/88 H 177/95 H Blood Pressure [Right Arm] Blood Pressure Mean 124 127 Blood Pressure Mean [Right Arm] Blood Pressure Source Blood Pressure Position 02 Sat by Pulse Oximetry 100 98 98 Oxygen Delivery Method Oxygen Flow Rate (LPM) 08/15/24 20:19 08/15/24 20:29 08/15/24 20:31 Temperature 97.9 F Temperature Source Oral Pulse Rate 105 H 107 H Pulse Rate [Right] Respiratory Rate 16 Blood Pressure 177/95 H 175/143 H Blood Pressure [Right Arm] Blood Pressure Mean Blood Pressure Mean [Right Arm] Blood Pressure Source Automatic Cuff Blood Pressure Position Supine 02 Sat by Pulse Oximetry 98 Oxygen Delivery Method Nasal Cannula Nasal Cannula Oxygen Flow Rate (LPM) 1 1.5 Lab Data Lab Results 08/15/24 17:02: VBG pH 7.41, VBG pCO2 55.6 H, VBG pO2 44.4 H, VBG HCO3 34.5 H, V BG Total CO2 36.2 H, VBG O2 Saturation 79.8 H, VBG Base Excess 9.8 H, VBG Lactic Acid 1.9 08/15/24 17:10: WBC 8.9, RBC 3.48 L, Hgb 10.9 L, Hct 33.4 L, MCV 96.0, MCH 31.3 H, MCHC 32.6, RDW 13.7, Plt Count 232, MPV 8.7, Neut % (Auto) 69.4, Lymph % (Auto) 23.1, Branch % (Auto) 5.8, Eos % (Auto) 1.0, Baso % (Auto) 0.4, Neut # (Auto) 6.2, Lymph # (Auto) 2.1, Branch # (Auto) 0.5, Eos # (Auto) 0.1, Baso # (Auto) 0.0, Sodium 134 L, Potassium 2.5 L*, Chloride 89 L, Carbon Dioxide 39 H, Anion Gap 8.5, BUN 9, Creatinine 0.80, Estimated Creat Clear 46, Estimated GFR 71, Est GFR ( Amer) 86, Glucose 110 H, Calcium 9.3, Total Bilirubin 0.7, AST 21, ALT 14, Alkaline Phosphatase 68, Troponin I < 0.01, NT-Pro-B Natriuret Pep 488 H, Total Protein 6.6, Albumin 4.3, Globulin 2.3, Albumin/Globulin Ratio 1.9 H 08/15/24 18:40: SARS-CoV-2 (PCR) Not detected, Influenza A Untype (PCR) Not detected, Influenza Type B (PCR) Not detected 08/15/24 20:40: Chlamy pneumoniae PCR Not detected, Adenovirus (PCR) Not detected, B. pertussis DNA (PCR) Not detected, Coronavirus OC43 (PCR) Not detected, Coronavirus HKU1 (PCR) Not detected, Coronavirus 229E (PCR) Not detected, SARS-CoV-2 (PCR) Not detected, Coronavirus NL63 (PCR) Not detected, Human Metapneumovir PCR Not detected, Influenza A (H1) PCR Not detected, Influ A (H1N1/09) PCR Not detected, Influenza A (H3) PCR Not detected, Influenza Type A (PCR) Not detected, Influenza Type B (PCR) Not detected, M. pneumoniae (PCR) Not detected, Parainfluenza 1 (PCR) Not detected, Parainfluenza 2 (PCR) Not detected, Parainfluenza 3 (PCR) Not detected, Parainfluenza 4 (PCR) Not detected, RSV (PCR) Not detected, Entero/Rhino (PCR) Not detected Orders (Tests/Meds): ED MEDICATIONS Generic Name Dose Route Start Last Admin Trade Name Freq PRN Reason Stop Dose Admin Acetaminophen 650 mg 08/15/24 20:29 Acetaminophen 325mg Tab PO 09/14/24 20:28 Q4HP PRN Fever or Mild Pain (1-3) Hydrocodone Bitart/Acetaminophen 1 tab 08/15/24 20:29 Hydrocodone/Apap 5/325 Mg Tablet PO 09/14/24 20:28 Q4HP PRN Mild to Moderate Pain (1-6) Albuterol/Ipratropium 3 ml 08/16/24 00:00 Ipratropium/Albuterol 3 Ml Neb IH 09/15/24 00:00 Q6RT VICENTE Doxycycline Hyclate 100 mg 08/16/24 09:00 Doxycycline Hycl 100 Mg Tablet PO 08/26/24 08:59 BID VICENTE Enoxaparin Sodium 40 mg 08/16/24 09:00 Enoxaparin 40mg/0.4ml Syringe SUBCUT 09/15/24 08:59 DAILY VICENTE Furosemide 40 mg 08/16/24 09:00 Furosemide 40mg/4ml Vial IV 09/15/24 08:59 DAILY VICENTE Azithromycin 500 mg/ Sodium 250 mls @ 250 mls/hr 08/15/24 17:15 08/15/24 18:00 Chloride IV 08/25/24 17:14 250 mls/hr Q24H VICENTE Administration Montelukast Sodium 10 mg 08/16/24 18:00 Montelukast Sodium 10mg Tab PO 09/15/24 17:59 PM VIC[facility]E Ondansetron HCl 4 mg 08/15/24 20:29 Ondansetron 4mg/2ml Vial IV 09/14/24 20:28 Q8HP PRN Nausea Prednisone 40 mg 08/16/24 09:00 Prednisone 20mg Tab PO 09/15/24 08:59 DAILY VICENTE Discontinued Medications Generic Name Dose Route Start Last Admin Trade Name Anatoly PRN Reason Stop Dose Admin Albuterol/Ipratropium 3 ml 08/15/24 17:15 08/15/24 22:06 Ipratropium/Albuterol 3 Ml [facility] 09/14/24 17:14 Not Given Q1H VICENTE Albuterol/Ipratropium 3 ml 08/15/24 18:49 08/15/24 21:44 Ipratropium/Albuterol 3 Ml [facility] 08/15/24 18:50 Not Given ONCE ONE Albuterol/Ipratropium 3 ml 08/15/24 18:50 08/15/24 21:45 Ipratropium/Albuterol 3 Ml [facility] 08/15/24 18:51 Not Given ONCE ONE Potassium Chloride/Water 100 mls @ 100 mls/hr 08/15/24 18:12 08/15/24 20:03 Potassium Chloride 10meq/100ml Ivpb IV 08/15/24 19:11 100 mls/hr ONCE ONE Administration Magnesium Sulfate 2 gm in 50 mls @ 50 mls/hr 08/15/24 18:49 08/15/24 20:08 Magnesium Sulfate 2gm/50ml Premix IV 08/15/24 19:48 50 mls/hr ONCE ONE Administration Potassium Chloride/Water 100 mls @ 50 mls/hr 08/15/24 18:55 08/15/24 21:45 Potassium Chloride 20meq/100ml Ivpb IV 08/15/24 20:54 Not Given ONCE ONE Methylprednisolone Sodium Succinate 125 mg 08/15/24 18:49 08/15/24 20:11 Methylprednisolone Sod Succ 125mg Vial IV 08/15/24 18:50 125 mg ONCE ONE Administration Potassium Chloride 40 meq 08/15/24 18:55 08/15/24 20:09 Potassium Chloride 20meq Tab PO 08/15/24 18:56 40 meq ONCE ONE Administration Potassium Chloride 40 meq 08/15/24 20:29 08/15/24 21:51 Potassium Chloride 20meq Tab PO 08/15/24 20:30 40 meq ONCE ONE Administration ORDERS Category Date Time Status CXR --portable [XR chest portable] Stat Exams 08/15/24 17:02 Completed Foot XR left minimum 3 views [XR foot LT min 3V] Stat Exams 08/15/24 17:04 Completed BNP [NT Pro Brain Natriuretic Pep.] Stat Lab 08/15/24 17:10 Completed Basic Metabolic Panel AMLAB Lab 08/16/24 06:00 Ordered CBC w/Auto Diff [Complete Blood Count Auto Diff] Stat Lab 08/15/24 17:10 Completed CMP [Comprehensive Metabolic Panel] Stat Lab 08/15/24 17:10 Completed Complete Blood Count Auto Diff AMLAB Lab 08/16/24 06:00 Ordered Full Resp Panel w/COVID ([facility] [facility] Routine Lab 08/15/24 20:40 Completed Rapid PCR Covid and Flu A/B Stat Lab 08/15/24 18:40 Completed Trop I [Troponin I] Stat Lab 08/15/24 17:10 Completed Blood Culture Stat Micro 08/15/24 17:55 Received VBG [Venous Blood Gas] Stat RT 08/15/24 17:02 Completed ECG Data Tracing #1: Independently inter by me rate is under 32, rhythm is regular, axis is leftward deviated, no ST elevation in anatomical contiguous leads, sinus tachycardia, QTc 424 HEART Score HEART Score: 5 Medical Decision Narrative: In summary, patient is a 69-year-old female PHMx acute on chronic respiratory failure, history of sepsis, stercoral colitis, lung mass, COPD, history of hypokalemia, history of hyponatremia, hypertension, pulmonary emphysema, tobacco use disorder who presents to the emergency department for evaluation of bilateral lower extremity edema and dyspnea. Patient states her bilateral lower extremity has been present for approximately 2 days, reports that her son stepped on the left lateral aspect of her foot 2 days ago. She normally wears 1L NC at home however has increased to 2 L due to shortness of breath. Patient states she has smoked approximately 2 packs of cigarettes per day x 40 years. Upon arrival, patient is hypertensive and tachypneic, visibly short of breath. Physical exam remarkable for tachypnea, bilateral decreased lung sounds, bilateral wheezing. Abdomen is soft and nontender. Bilateral lower extremity 1+ pitting edema, left foot lateral aspect edema, tenderness. Sensation and neurovascular status intact. Denies fever, chills, body aches, headache, posterior neck pain, chest pain, abdominal pain, nausea, vomiting. Differential diagnosis includes ACS, dissection, COPD exacerbation, acute on chronic respiratory failure, pulmonary embolism, pneumonia, pneumothorax, among others. Initial workup will be conducted with CXR, left foot x-ray, labs including blood cultures, VBG, EKG. Initial inventions include DuoNeb and IV azithromycin. Will consider IV Solu-Medrol pending serum lab results. Initial workup reviewed by me. CBC unremarkable for any leukocytosis, stable H&H (improved from prior). CMP remarkable for sodium 134, potassium 2.5 (patient admits she is not compliant with potassium PO at home therefore administered IV and PO), BNP 488, albumin 1.9. VBG pCO2 55.6, pO2 44.4, HCO3 34.5, total CO2 36.2, O2 saturation 79.8, lactic acid 1.9. Troponin < 0.01. Left foot x-ray remarkable for soft tissue swelling, no fracture. Chest x-ray formal read remarkable for interval development of a bandlike increased density overlying the left lung base at the 10th posterior rib, lungs clear otherwise. Upon repeat evaluation after DuoNeb, patient's lung sounds remain the same. Will proceed with IV Solu-Medrol and additional DuoNebs. Upon reassessment after additional interventions, patient states she feels like she has mild improvement however still feels short of breath. Shared decision making used, discussed admission with patient she is agreeable to be admitted to hospital medicine at this time for COPD exacerbation, chronic hypercapnea, hypokalemia and hyponatremia. I was consulted by the [facility], and we discussed the complexity of the problems being addressed. I approved the treatment and management plan for this patient's care in the emergency department, thus performing a substantive portion of the medical decision making. Rey Mccabe MD Critical Care <Nicole Marin APRN - Last Filed: 08/15/24 20:34> Critical Care Time Critical Care Time: No
[2024-08-15 17:22] LABS: Basophils % 0.4 % (0.1-2.0); Eosinophils # 0.1 K/mm3 (0.0-0.4); Hematocrit 33.4 % (37.0-47.0); Hemoglobin 10.9 g/dL (12.2-16.2); Lymphocytes # 2.1 K/mm3 (0.7-4.5); Lymphocytes % 23.1 % (10-50); Mean Corpuscular HGB Conc 32.6 g/dL (31.8-35.4); Mean Corpuscular Hemoglobin 31.3 pg (27.0-31.2); Mean Platelet Volume 8.7 fl (7.4-10.4); Monocytes # 0.5 K/mm3 (0.1-1.0); Monocytes % 5.8 % (1.7-9.3); Neutrophils # 6.2 K/mm3 (1.8-7.8); Neutrophils % 69.4 % (37.0-80.0); Platelet Count 232 K/mm3 (142-424); Red Blood Count 3.48 M/mm3 (4.20-5.40); Red Cell Distribution Width 13.7 % (11.5-17.5); White Blood Count 8.9 K/mm3 (4.8-10.8)
[2024-08-15] MEDS: IPRATROPIUM/ALBUTEROL 3 ML NEB IH ×2 (17:49→23:36)
[2024-08-15 17:59] LABS: Albumin Level 4.3 g/dl (3.5-5.0); Chloride 89 mmol/L (98-107); Sodium 134 mmol/L (136-145)
[2024-08-15] MEDS: AZITHROMYCIN 500 MG in 0.9 % SODIUM CHLORIDE 250 ML 250 MG IV (18:00)
[2024-08-15 18:02] LABS: Alanine Aminotransferase 14 U/L (12-78); Albumin/Globulin Ratio 1.9 (1.1-1.8); Alkaline Phosphatase 68 U/L (38-126); Anion Gap 8.5 mEq/L (5-15); Aspartate Amino Transferase 21 U/L (14-36); Bilirubin,Total 0.7 mg/dl (0.2-1.3); Blood Urea Nitrogen 9 mg/dl (7-17); Carbon Dioxide 39 mmol/L (22.0-30.0); Creatinine Clearance Estimated 46 mL/min (50-200); Estimated Glomerular Filt Rate 71 ml/min (>60); GFR (African American) 86 ML/MIN (>60); Globulin 2.3 g/dL (1.3-3.2); Glucose 110 mg/dl (74-100); Total Protein,Serum 6.6 g/dl (6.3-8.2)
[2024-08-15 18:03] LABS: Calcium 9.3 mg/dl (8.4-10.2)
[2024-08-15 18:06] LABS: Potassium 2.5 mmoL/L (3.5-5.1)
[2024-08-15 18:12] LABS: NT Pro Brain Natriuretic Pep. 488 pg/mL (0-125)
[2024-08-15 18:16] LABS: Troponin I < 0.01 ng/ml (0.00-0.034)
--- NOTE | 2024-08-15 18:26 | ECG_ITS ---
APPROVED REPORT Exam: Resting ECG HR:132 bpm ECG Measurements Heart Rate 132 AXES IN 154 P 72 QRSd 85 QRS -73 QT 346 T 67 QTc 424 Conclusion SINUS TACHYCARDIA WITH OCCASIONAL SUPRAVENTRICULAR PREMATURE COMPLEXES LEFT AXIS DEVIATION [QRS AXIS < -30] POSSIBLE ANTERIOR MYOCARDIAL INFARCTION , PROBABLY OLD [30 ms Q WAVE IN V3/V4, OR R < 0.2 mV IN V4] ABNORMAL ECG Electronically signed by : VIPUL ORTIZ, 08/15/2024 23:37:07
[2024-08-15 18:44] LABS: Coronavirus 19, PCR Not Detected (NotDetected); Influenza A, PCR Not Detected (NotDetected); Influenza B, PCR Not Detected (NotDetected)
[2024-08-15 18:46] LABS: Lactate Venous 1.9 mmol/L (0.4-2.0); VBG Base Excess 9.8 mmol/L (-2.4-2.3); VBG HCO3 34.5 mmol/L (23-30); VBG Oxygen Saturation 79.8 % (50-70); VBG PH 7.41 mmol/L (7.31-7.41); VBG PO2 44.4 mmol/L (28-40); VBG Total CO2 36.2 mmol/L (23-27)
[2024-08-15 18:48] LABS: VBG PCO2 55.6 mmol/L (35-51)
--- NOTE | 2024-08-15 18:49 | PC.NURSE ---
SUJATA RN NOTIFIED PROVIDED OF CO2 55.6
[2024-08-15] MEDS: KCl 10mEq/100ml 100 ML 100 MEQ IV (20:03)
[2024-08-15] MEDS: MAGNESIUM SULFATE IN WATER 2 GM/50 ML PIGGYBACK IV (20:08)
[2024-08-15] MEDS: POTASSIUM CHLORIDE 20MEQ TAB 40 MEQ PO ×2 (20:09→21:51)
[2024-08-15] MEDS: METHYLPREDNISOLONE SOD SUCC 125MG VIAL 125 MG IV (20:11)
--- NOTE | 2024-08-15 20:35 | P.HP_ITS ---
<Statement entered by Sulaiman Gavin MD - 08/18/24 12:46> I personally evaluated patient and agree with plan of care outlined by the SENIOR [employer]IV[employer] SALES COUNSELOR. History of Present Illness *Admission Date: 08/15/24 *Reason for visit:: Difficulty breathing *History of present illness: This is a 69-year-old female who has a past medical history significant COPD, lung nodule, hypokalemia, COPD, pulmonary emphysema, and cervical cancer who presents with a 2-day history of shortness of breath and lower extremity swelling. Due to patient's symptoms, she presented to the emergency room for evaluation. While in the emergency room, patient was requiring additional oxygen from her baseline home O2 regiment of 1 L by nasal cannula. Her chest x-ray revealed interval development of bandlike increased density over the left lung base and retrocardiac region. Patient was still somewhat tachypneic, so she has been admitted for further management. During my evaluation of the patient, patient states she has been having expiratory wheezing and swelling in her lower extremities. She is currently prescribed Lasix. She did have a low potassium level and is prescribed potassium as outpatient. Patient states she has been compliant with her potassium. She did mention her son accidentally stepped on her left foot. Plain films of the left foot were without any acute fractures or dislocation. She is currently denying any chest pain,, lightheadedness, dizziness, PND, ort hopnea, nausea, vomiting, fever, chills, rigors, or diarrhea. [facility] Disclaimer: The information contained in this section may have been updated after the patient was seen, as this information can be updated by other users. Medical History (Updated 08/15/24 @ 20:41 by Eddi Negron APRN) COPD mixed type Lung nodule Hypokalemia Elevated troponin COPD (chronic obstructive pulmonary disease) Nocturnal hypoxemia Pulmonary emphysema Incidental pulmonary nodule, greater than or equal to 8mm Smoking greater than 30 pack years Dyspnea on exertion Tobacco abuse disorder Tobacco abuse counseling COPD (chronic obstructive pulmonary disease) Cervical cancer Surgical History History of dilation and curettage History of back surgery Family History Other Diabetes Social History Smoking Status: Current every day smoker tobacco type: cigarettes packs per day: 2 second hand exposure: Yes alcohol intake: current alcohol intake frequency: 0-2 drinks per day current occupational status: unemployed Travel in the last 8 weeks: None household members: spouse housing: house current occupational exposures/hazards: No Have you lived/traveled outside [place] in past 30 days?: No Contact w/someone who lives/traveled outside [place] past 30 days?: No Exposure to someone with infectious disease in past 14 days?: No Do you have a fever (greater than 100.4 F or 38 C)?: No Have you tested positive for COVID-19: No Exposed to someone with COVID-19 in past 14 days?: No Do you have a sore throat?: No Do you have a cough?: No Do you have any weakness?: No Do you have any diarrhea?: No Are you experiencing any unusual bleeding?: No Do you have any muscle aches/pain?: No Do you have any abdominal pain?: No Are you experiencing loss of taste or smell?: No Other Medical History Have you received the Flu Vaccine for this season: No Have you received the Pneumonia Vaccine: No Review of Systems Review of Systems Review of systems:: pertinent systems reviewed and negative unless documented below Constitutional Constitutional: Reports system reviewed and no additional complaints, except as documented Eyes Eyes: Reports system reviewed and no additional complaints, except as documented ENT Ears, Nose, Mouth, and Throat: Reports system reviewed and no additional comp laints, except as documented *Cardiovascular Cardiovascular: Reports dyspnea and Reports leg edema *Respiratory Respiratory: Reports dyspnea *Gastrointestinal Gastrointestinal: Reports system reviewed and no additional complaints, except as documented *Genitourinary Genitourinary: Reports system reviewed and no additional complaints, except as documented *Musculoskeletal Musculoskeletal: Reports system reviewed and no additional complaints, except as documented Integumentary/Breasts Skin/Breast: Reports skin swelling *Neurologic Neurologic: Reports system reviewed and no additional complaints, except as documented Psychiatric Psychiatric: Reports system reviewed and no additional complaints, except as documented Endocrine Endocrine: Reports system reviewed and no additional complaints, except as documented Hematologic/Lymphatic Hematologic/Lymphatic: Reports system reviewed and no additional complaints, except as documented Allergic/Immunologic Allergic/Immunologic: Reports system reviewed and no additional complaints, except as documented Meds Home Medications and Allergies Home Medications ?Medication ?Instructions ?Recorded ?Confirmed ?Type ipratropium 0.5 mg-albuterol 3 mg 3 ml inhalation QIDP PRN Shortness 07/03/21 08/15/24 History (2.5 mg base)/3 mL nebulization Of Breath soln fluticasone 250 mcg-salmeterol 50 1 inh inhalation BID 04/19/22 08/15/24 History mcg/dose blistr powdr for inhalation (Advair Diskus) albuterol sulfate 90 mcg/actuation 2 inh inhalation NEEDED PRN 04/15/24 08/15/24 History aerosol inhaler shortness of air alprazolam 1 mg tablet 1 mg PO BID 04/15/24 08/15/24 History calcium 600 mg (as 1 tab PO BID 04/15/24 08/15/24 History carbonate)-vitamin D3 5 mcg (200 unit) tablet celecoxib 50 mg capsule 50 mg PO DAILY 04/15/24 08/15/24 History cholecalciferol (vitamin D3) 1,250 1,250 mcg PO WEEKLY 04/15/24 08/15/24 History mcg (50,000 unit) capsule duloxetine 30 mg capsule,delayed 30 mg PO DAILY 04/15/24 08/15/24 History release gabapentin 800 mg tablet 800 mg PO DAILY 04/15/24 08/15/24 History hydrocodone 10 mg-acetaminophen 1 tab PO DAILY 04/15/24 08/15/24 History 325 mg tablet losartan 100 mg tablet 100 mg PO DAILY 04/15/24 08/15/24 History montelukast 10 mg tablet 10 mg PO DAILY 04/15/24 08/15/24 History potassium chloride 20 mEq 40 meq PO BID 04/15/24 08/15/24 History tablet,extended release(part/cryst) amlodipine 10 mg tablet 10 mg PO DAILY #30 tabs 04/16/24 08/15/24 Rx magnesium oxide 250 mg PO BID 07/29/24 08/15/24 History polyethylene glycol 3350 17 17 g PO DAILY #510 grams 07/31/24 08/15/24 Rx gram/dose oral powder (Miralax) New Prescriptions to Start Prescriptions: Allergies Allergy/AdvReac Type Severity Reaction Status Date / Time No Known Allergies Allergy Verified 07/28/24 21:23 Exam Data for Last 24 hours Vital signs and Labs for Last 24 Hours: Temp Pulse Resp BP Pulse Ox O2 Del Method O2 Flow Rate 97.9 F 105 H 16 177/95 H 99 Nasal Cannula 1 08/15/24 20:19 08/15/24 20:19 08/15/24 20:19 08/15/24 20:19 08/15/24 17:44 08/15/24 20:19 08/15/24 20:19 Laboratory Results - last 24 hr 08/15/24 17:02: VBG pH 7.41, VBG pCO2 55.6 H, VBG pO2 44.4 H, VBG HCO3 34.5 H, VBG Total CO2 36.2 H, VBG O2 Saturation 79.8 H, VBG Base Excess 9.8 H, VBG Lactic Acid 1.9 08/15/24 17:10: WBC 8.9, RBC 3.48 L, Hgb 10.9 L, Hct 33.4 L, MCV 96.0, MCH 31.3 H, MCHC 32.6, RDW 13.7, Plt Count 232, MPV 8.7, Neut % (Auto) 69.4, Lymph % (Auto) 23.1, [place] % (Auto) 5.8, Eos % (Auto) 1.0, Baso % (Auto) 0.4, Neut # (Auto) 6.2, Lymph # (Auto) 2.1, [place] # (Auto) 0.5, Eos # (Auto) 0.1, Baso # (Auto) 0.0, Sodium 134 L, Potassium 2.5 L*, Chloride 89 L, Carbon Dioxide 39 H, Anion Gap 8.5, BUN 9, Creatinine 0.80, Estimated Creat Clear 46, Estimated GFR 71, Est GFR ( Amer) 86, Glucose 110 H, Calcium 9.3, Total Bilirubin 0.7, AST 21, ALT 14, Alkaline Phosphatase 68, Troponin I < 0.01, NT-Pro-B Natriuret Pep 488 H, Total Protein 6.6, Albumin 4.3, Globulin 2.3, Albumin/Globulin Ratio 1.9 H 08/15/24 18:40: SARS-CoV-2 (PCR) Not detected, Influenza A Untype (PCR) Not detected, Influenza Type B (PCR) Not detected I & O for Last 24 hours: Intake & Output 01/2908/13/24 08/14/24 08/15/24 23:59 23:59 23:59 23:59 Weight 54.431 kg Constitutional Constitutional: no acute distress and cooperative *Routine HEENT Exam Head: Present normocephalic Eye: Present EOMI ENT: Present mucous membranes moist *Routine Neck Exam Neck: Present supple and full ROM *Routine Respiratory Exam Respiratory: Present decreased breath sounds and wheezes *Routine Cardiovascular Exam Cardiovascular: Present RRR, Normal S1 and Normal S2 *Routine Abdominal Exam Abdominal: Present soft and normoactive bowel sounds *Routine Rectal Exam Rectal:: deferred *Routine Genitalia Exam Genitalia:: deferred *Routine Extremities Exam Extremities: Present edema, pulses intact and normal capillary refill Routine Back/Spine/Pelvis Exam Back/Spine: Present full ROM *Routine Skin Exam Skin: Present erythema and warm *Routine Neurological Exam Neurological: Present alert, oriented X3, CN II-XII intact and moving all extremities Routine Psychiatric Exam Psychiatric: Present normal affect, normal thought process, cooperative, good insight and good judgment H&P: Result Impressions This is a 69-year-old female who has known COPD with CO2 retention who presents with a 2-day history of swelling to the lower extremities and difficulty breathing. Patient is without any significant respiratory distress. She does have some 3+ pitting edema to the bilateral lower extremities. Assessment and Plan *Assessment and plan (1) Acute on chronic respiratory failure with hypoxia and hypercapnia: Status: Acute Category: Medical Code(s): J96.21 - Acute and chronic respiratory failure with hypoxia; J96.22 - Acute and chronic respiratory failure with hypercapnia (2) COPD exacerbation: Status: Acute Category: Medical Code(s): J44.1 - Chronic obstructive pulmonary disease with (acute) exacerbation (3) Bilateral lower extremity edema: Status: Acute Category: Medical Code(s): R60.0 - Localized edema Plan Assessment Acute on chronic respiratory failure with hypoxemia and hypercapnia -Will continue home O2 regiment -Will consider nocturnal BiPAP -Maintain oxygen saturation between 90 and 92% COPD exacerbation -DuoNebs every 6 hours -40 mg of prednisone p.o. daily -100 mg of doxycycline p.o. twice daily -10 mg of Singulair p.o. daily Hypokalemia -Patient received some potassium while in emergency room -Will give additional 40 mg of potassium p.o. now -Monitor potassium daily Bilateral lower extremity edema -Will change patient's Lasix from p.o. to IV 40 mg daily -SCDs to bilateral lower extremities -Will consider MAY abraham Plan: Admit patient to the MedSurg unit Activity as tolerated Supplemental oxygen to maintain oxygen saturation greater 90-92% Regular diet CBC/BMP daily 4 mg Zofran IV push to 8 hours. Nausea vomit Blood cultures x 2 Full code I will discuss this case with attending physician Dr. gavin and I look forward to more input
--- NOTE | 2024-08-15 20:37 | PC.NURSE ---
Report called to [facility]
[2024-08-15 20:44] LABS: Adenovirus,PCR Not Detected (NotDetected); Bordetella Pertussis Not Detected (NotDetected); Chlamydophila Pneumoniae, PCR Not Detected (NotDetected); Coronavirus 19, PCR Not Detected (NotDetected); Coronavirus 229E Not Detected (NotDetected); Coronavirus NL63 Not Detected (NotDetected); Coronavirus OC43 Not Detected (NotDetected); Coronovirus HKU1,PCR Not Detected (NotDetected); Human Metapneumovirus Not Detected (NotDetected); Influenza A, PCR Not Detected (NotDetected); Influenza AH1, 2009 Not Detected (NotDetected); Influenza AH1, PCR Not Detected (NotDetected); Influenza AH3,PCR Not Detected (NotDetected); Influenza B, PCR Not Detected (NotDetected); Mycoplasma Pneumoniae, PCR Not Detected (NotDetected); Parainfluenza 1, PCR Not Detected (NotDetected); Parainfluenza 2, PCR Not Detected (NotDetected); Parainfluenza 3, PCR Not Detected (NotDetected); Parainfluenza 4, PCR Not Detected (NotDetected); Respiratory Syncytial Virus Not Detected (NotDetected); Rhinovirus/Enterovirus Not Detected (NotDetected)
--- NOTE | 2024-08-15 21:02 | PC.NURSE ---
pt arrived to floor from ed via stretcher at 2100.
[2024-08-16] VITALS (8 sets, daily range): BP systolic 154–165; BP diastolic 71–95; PULSE 80–108; RESP 18–20; TEMP 36.4–37.1; O2SAT 92–99; BMI 19.3
--- NOTE | 2024-08-16 05:34 | PC.NURSE ---
Pt A&OX4 and has tolerated 1.5L nasal cannula. Lung sounds diminished and bowel sounds active. She has received duonebs q6 hr. Purewick has remained in place and draining well. Edema noted to bilateral lower extremities. No complaints at this time, call light within reach
[2024-08-16 06:52] LABS: Basophils % 0.2 % (0.1-2.0); Hematocrit 32.2 % (37.0-47.0); Hemoglobin 10.5 g/dL (12.2-16.2); Lymphocytes # 0.5 K/mm3 (0.7-4.5); Mean Corpuscular HGB Conc 32.6 g/dL (31.8-35.4); Mean Corpuscular Hemoglobin 30.7 pg (27.0-31.2); Mean Corpuscular Volume 94.2 fl (81-99); Mean Platelet Volume 9.1 fl (7.4-10.4); Monocytes # 0.1 K/mm3 (0.1-1.0); Monocytes % 1.4 % (1.7-9.3); Neutrophils # 4.5 K/mm3 (1.8-7.8); Neutrophils % 89.2 % (37.0-80.0); Platelet Count 217 K/mm3 (142-424); Red Blood Count 3.42 M/mm3 (4.20-5.40); Red Cell Distribution Width 13.4 % (11.5-17.5)
[2024-08-16 07:13] LABS: Anion Gap 9.1 mEq/L (5-15); Blood Urea Nitrogen 11 mg/dl (7-17); Calcium 9.2 mg/dl (8.4-10.2); Carbon Dioxide 36 mmol/L (22.0-30.0); Chloride 95 mmol/L (98-107); Creatinine Clearance Estimated 40 mL/min (50-200); Estimated Glomerular Filt Rate 83 ml/min (>60); GFR (African American) 100 ML/MIN (>60); Glucose 149 mg/dl (74-100); Potassium 4.1 mmoL/L (3.5-5.1); Sodium 136 mmol/L (136-145)
[2024-08-16] MEDS: IPRATROPIUM/ALBUTEROL 3 ML NEB IH ×2 (07:15→11:20)
--- NOTE | 2024-08-16 08:09 | PC.NURSE ---
Pt weaned to 1L NC (which is baseline for her) from 1.5L NC.
[2024-08-16] MEDS: DOXYCYCLINE HYCL 100 MG TABLET PO (08:39)
[2024-08-16] MEDS: predniSONE 20MG TAB 40 MG PO (08:39)
[2024-08-16] MEDS: ENOXAPARIN 40MG/0.4ML SYRINGE 40 MG SUBCUT (08:39)
[2024-08-16] MEDS: FUROSEMIDE 40MG/4ML VIAL 40 MG IV (08:39)
--- NOTE | 2024-08-16 10:35 | EXP.DC.SUM ---
General Admission date:: 08/15/24 HPI HPI HPI: This is a 69-year-old female who has a past medical history significant COPD, lung nodule, hypokalemia, COPD, pulmonary emphysema, and cervical cancer who presents with a 2-day history of shortness of breath and lower extremity swelling. Due to patient's symptoms, she presented to the emergency room for evaluation. While in the emergency room, patient was requiring additional oxygen from her baseline home O2 regiment of 1 L by nasal cannula. Her chest x-ray revealed interval development of bandlike increased density over the left lung base and retrocardiac region. Patient was still somewhat tachypneic, so she has been admitted for further management. During my evaluation of the patient, patient states she has been having expiratory wheezing and swelling in her lower extremities. She is currently prescribed Lasix. She did have a low potassium level and is prescribed potassium as outpatient. Patient states she has been compliant with her potassium. She did mention her son accidentally stepped on her left foot. Plain films of the left foot were without any acute fractures or dislocation. She is currently denying any chest pain,, lightheadedness, dizziness, PND, orthopnea, nausea, vomiting, fever, chills, rigors, or diarrhea. Hospital Course Hospital Course Hospital Course: Iqra Balbuena is a 69-year-old female who was admitted for severe hypokalemia, COPD exacerbation, lower extremity edema. #Chronic hypoxic respiratory failure #COPD exacerbation #RUL pulmonary masses #Chronic tobacco smoker ? Patient has not been Trelegy inhaler at home. Respiratory panel negative. - CT chest previously revealed two masses in the posterior right upper lobe which are stable but remain concerning for underlying neoplasia -known from previous admission. - Pulmonology has seen patient in the past and noted masses, follows in the outpatient clinic. Patient refuses further workup. Continues to smoke, but interested in nicotine patches. ? Clinically improved with breathing treatments, steroids, doxycycline. ? Remained stable on 2 L nasal cannula. ? Discharged with Trelegy 100, prednisone, doxycycline, nicotine patches. ? Patient continues to refuse both home health, SNF. #Hypokalemia ? Initial potassium 2.5, improved to 4.1 with IV and oral repletion. #Bilateral lower extremity pitting edema ? BNP only marginally elevated, 488. Improved with IV Lasix diuresis. ? Encourage patient to resume her Lasix 40 mg daily regimen. #Hypertension - Continue home medications. Total time spent on discharge: 31 minutes on chart review, counseling, documentation, and direct care with patient. Exam Data for Last 24 hours Vital signs and Labs for Last 24 Hours: Temp Pulse Resp BP Pulse Ox O2 Del Method O2 Flow Rate 97.5 F L 92 H 18 164/71 H 99 Nasal Cannula 1 08/16/24 07:30 08/16/24 07:30 08/16/24 07:30 08/16/24 07:30 08/16/24 07:30 08/16/24 08:00 08/16/24 08:00 Laboratory Results - last 24 hr 08/15/24 17:02: VBG pH 7.41, VBG pCO2 55.6 H, VBG pO2 44.4 H, VBG HCO3 34.5 H, VBG Total CO2 36.2 H, VBG O2 Saturation 79.8 H, VBG Base Excess 9.8 H, VBG Lactic Acid 1.9 08/15/24 17:10: WBC 8.9, RBC 3.48 L, Hgb 10.9 L, Hct 33.4 L, MCV 96.0, MCH 31.3 H, MCHC 32.6, RDW 13.7, Plt Count 232, MPV 8.7, Neut % (Auto) 69.4, Lymph % (Auto) 23.1, [place] % (Auto) 5.8, Eos % (Auto) 1.0, Baso % (Auto) 0.4, Neut # (Auto) 6.2, Lymph # (Auto) 2.1, [place] # (Auto) 0.5, Eos # (Auto) 0.1, Baso # (Auto) 0.0, Sodium 134 L, Potassium 2.5 L*, Chloride 89 L, Carbon Dioxide 39 H, Anion Gap 8.5, BUN 9, Creatinine 0.80, Estimated Creat Clear 46, Estimated GFR 71, Est GFR ( Amer) 86, Glucose 110 H, Calcium 9.3, Total Bilirubin 0.7, AST 21, ALT 14, Alkaline Phosphatase 68, Troponin I < 0.01, NT-Pro-B Natriuret Pep 488 H, Total Protein 6.6, Albumin 4.3, Globulin 2.3, Albumin/Globulin Ratio 1.9 H 08/15/24 18:40: SARS-CoV-2 (PCR) Not detected, Influenza A Untype (PCR) Not detected, Influenza Type B (PCR) Not detected 08/15/24 20:40: Chlamy pneumoniae PCR Not detected, Adenovirus (PCR) Not detected, B. pertussis DNA (PCR) Not detected, Coronavirus OC43 (PCR) Not detected, Coronavirus HKU1 (PCR) Not detected, Coronavirus 229E (PCR) Not detected, SARS-CoV-2 (PCR) Not detected, Coronavirus NL63 (PCR) Not detected, Human Metapneumovir PCR Not detected, Influenza A (H1) PCR Not detected, Influ A (H1N1/09) PCR Not detected, Influenza A (H3) PCR Not detected, Influenza Type A (PCR) Not detected, Influenza Type B (PCR) Not detected, M. pneumoniae (PCR) Not detected, Parainfluenza 1 (PCR) Not detected, Parainfluenza 2 (PCR) Not detected, Parainfluenza 3 (PCR) Not detected, Parainfluenza 4 (PCR) Not detected, RSV (PCR) Not detected, Entero/Rhino (PCR) Not detected 08/16/24 06:23: WBC 5.0 D, RBC 3.42 L, Hgb 10.5 L, Hct 32.2 L, MCV 94.2, MCH 30.7, MCHC 32.6, RDW 13.4, Plt Count 217, MPV 9.1, Neut % (Auto) 89.2 H, Lymph % (Auto) 9.0 L, [place] % (Auto) 1.4 L, Eos % (Auto) 0.0 L, Baso % (Auto) 0.2, Neut # (Auto) 4.5, Lymph # (Auto) 0.5 L, [place] # (Auto) 0.1, Eos # (Auto) 0.0, Baso # (Auto) 0.0, Sodium 136, Potassium 4.1 D, Chloride 95 L, Carbon Dioxide 36 H, Anion Gap 9.1, BUN 11, Creatinine 0.70, Estimated Creat Clear 40, Estimated GFR 83, Est GFR ( Amer) 100, Glucose 149 H D, Calcium 9.2 I & O for Last 24 hours: Intake & Output 08/13/24 08/14/24 08/15/24 08/16/24 23:59 23:59 23:59 23:59 Intake Total 480 / 480 Output Total 400 / 400 Balance 80 / 80 Weight 47.536 kg 47.536 kg Constitutional Constitutional: no acute distress *Routine HEENT Exam Head: Present normocephalic Eye: Present EOMI and PERRL ENT: Present mucous membranes moist *Routine Neck Exam Neck: Present supple; Absent lymphadenopathy *Routine Respiratory Exam Respiratory: Present CTA bilaterally *Routine Cardiovascular Exam Cardiovascular: Present RRR *Routine Abdominal Exam Abdominal: Present soft and normoactive bowel sounds; Absent tenderness *Routine Extremities Exam Extremities: Absent cyanosis, clubbing or edema *Routine Skin Exam Skin: Present warm; Absent rash *Routine Neurological Exam Neurological: Present alert and oriented X3 Results Data Completed and Pending Labs on day of discharge: Labs from last 24 hours 08/16/24 08/15/24 08/15/24 06:23 20:40 18:40 WBC 5.0 D RBC 3.42 L Hgb 10.5 L Hct 32.2 L MCV 94.2 MCH 30.7 MCHC 32.6 RDW 13.4 Plt Count 217 MPV 9.1 Neut % (Auto) 89.2 H Lymph % (Auto) 9.0 L [place] % (Auto) 1.4 L Eos % (Auto) 0.0 L Baso % (Auto) 0.2 Neut # (Auto) 4.5 Lymph # (Auto) 0.5 L [place] # (Auto) 0.1 Eos # (Auto) 0.0 Baso # (Auto) 0.0 VBG pH VBG pCO2 VBG pO2 VBG HCO3 VBG Total CO2 VBG O2 Saturation VBG Base Excess VBG Lactic Acid Sodium 136 Potassium 4.1 D Chloride 95 L Carbon Dioxide 36 H Anion Gap 9.1 BUN 11 Creatinine 0.70 Estimated Creat Clear 40 Estimated GFR 83 Est GFR ( Amer) 100 Glucose 149 H D Calcium 9.2 Total Bilirubin AST ALT Alkaline Phosphatase Troponin I NT-Pro-B Natriuret Pep Total Protein Albumin Globulin Albumin/Globulin Ratio Chlamy pneumoniae PCR Not detected Adenovirus (PCR) Not detected B. pertussis DNA (PCR) Not detected Coronavirus OC43 (PCR) Not detected Coronavirus HKU1 (PCR) Not detected Coronavirus 229E (PCR) Not detected SARS-CoV-2 (PCR) Not detected Not detected Coronavirus NL63 (PCR) Not detected Human Metapneumovir PCR Not detected Influenza A (H1) PCR Not detected Influ A (H1N1/09) PCR Not detected Influenza A (H3) PCR Not detected Influenza Type A (PCR) Not detected Influenza A Untype (PCR) Not detected Influenza Type B (PCR) Not detected Not detected M. pneumoniae (PCR) Not detected Parainfluenza 1 (PCR) Not detected Parainfluenza 2 (PCR) Not detected Parainfluenza 3 (PCR) Not detected Parainfluenza 4 (PCR) Not detected RSV (PCR) Not detected Entero/Rhino (PCR) Not detected 08/15/24 08/15/24 17:10 17:02 WBC 8.9 RBC 3.48 L Hgb 10.9 L Hct 33.4 L MCV 96.0 MCH 31.3 H MCHC 32.6 RDW 13.7 Plt Count 232 MPV 8.7 Neut % (Auto) 69.4 Lymph % (Auto) 23.1 [place] % (Auto) 5.8 Eos % (Auto) 1.0 Baso % (Auto) 0.4 Neut # (Auto) 6.2 Lymph # (Auto) 2.1 [place] # (Auto) 0.5 Eos # (Auto) 0.1 Baso # (Auto) 0.0 VBG pH 7.41 VBG pCO2 55.6 H VBG pO2 44.4 H VBG HCO3 34.5 H VBG Total CO2 36.2 H VBG O2 Saturation 79.8 H VBG Base Excess 9.8 H VBG Lactic Acid 1.9 Sodium 134 L Potassium 2.5 L* Chloride 89 L Carbon Dioxide 39 H Anion Gap 8.5 BUN 9 Creatinine 0.80 Estimated Creat Clear 46 Estimated GFR 71 Est GFR ( Amer) 86 Glucose 110 H Calcium 9.3 Total Bilirubin 0.7 AST 21 ALT 14 Alkaline Phosphatase 68 Troponin I < 0.01 NT-Pro-B Natriuret Pep 488 H Total Protein 6.6 Albumin 4.3 Globulin 2.3 Albumin/Globulin Ratio 1.9 H Chlamy pneumoniae PCR Adenovirus (PCR) B. pertussis DNA (PCR) Coronavirus OC43 (PCR) Coronavirus HKU1 (PCR) Coronavirus 229E (PCR) SARS-CoV-2 (PCR) Coronavirus NL63 (PCR) Human Metapneumovir PCR Influenza A (H1) PCR Influ A (H1N1/09) PCR Influenza A (H3) PCR Influenza Type A (PCR) Influenza A Untype (PCR) Influenza Type B (PCR) M. pneumoniae (PCR) Parainfluenza 1 (PCR) Parainfluenza 2 (PCR) Parainfluenza 3 (PCR) Parainfluenza 4 (PCR) RSV (PCR) Entero/Rhino (PCR) DS: Diagnosis Discharge Diagnosis (1) Acute on chronic respiratory failure with hypoxia and hypercapnia: Status: Resolved Code(s): J96.21 - Acute and chronic respiratory failure with hypoxia; J96.22 - Acute and chronic respiratory failure with hypercapnia (2) COPD exacerbation: Status: Acute Code(s): J44.1 - Chronic obstructive pulmonary disease with (acute) exacerbation (3) Bilateral lower extremity edema: Status: Acute Code(s): R60.0 - Localized edema Meds Home Medications and Allergies Home Medications ?Medication ?Instructions ?Recorded ?Confirmed ?Type ipratropium 0.5 mg-albuterol 3 mg 3 ml inhalation QIDP PRN Shortness 07/03/21 08/16/24 History (2.5 mg base)/3 mL nebulization Of Breath soln albuterol sulfate 90 mcg/actuation 2 inh inhalation NEEDED PRN 04/15/24 08/16/24 History aerosol inhaler shortness of air alprazolam 1 mg tablet 1 mg PO BID 04/15/24 08/16/24 History calcium 600 mg (as 1 tab PO BIDWMEAL 04/15/24 08/16/24 History carbonate)-vitamin D3 5 mcg (200 unit) tablet celecoxib 50 mg capsule 50 mg PO DAILY 04/15/24 08/16/24 History cholecalciferol (vitamin D3) 1,250 1,250 mcg PO WEEKLY 04/15/24 08/16/24 History mcg (50,000 unit) capsule duloxetine 30 mg capsule,delayed 30 mg PO DAILY 04/15/24 08/16/24 History release gabapentin 800 mg tablet 800 mg PO TID 04/15/24 08/16/24 History hydrocodone 10 mg-acetaminophen 1 tab PO DAILY 04/15/24 08/16/24 History 325 mg tablet losartan 100 mg tablet 100 mg PO DAILY 04/15/24 08/16/24 History montelukast 10 mg tablet 10 mg PO PM 04/15/24 08/16/24 History potassium chloride 20 mEq 40 meq PO BID 04/15/24 08/16/24 History tablet,extended release(part/cryst) amlodipine 10 mg tablet 10 mg PO DAILY #30 tabs 04/16/24 08/16/24 Rx magnesium oxide 250 mg PO BID 07/29/24 08/16/24 History polyethylene glycol 3350 17 17 g PO DAILY #510 grams 07/31/24 08/16/24 Rx gram/dose oral powder (Miralax) doxycycline hyclate 100 mg tablet 100 mg PO BID 4 days #8 tabs 08/16/24 Rx fluticasone fur. 100 mcg-umeclid 1 inh inhalation DAILY #60 ea 08/16/24 Rx 62.5 mcg-vilant 25 mcg inhalat.powder (Trelegy Ellipta) furosemide 40 mg tablet 40 mg PO DAILY 30 days #30 tabs 08/16/24 Rx linaclotide 145 mcg capsule 145 mcg PO DAILY 08/16/24 08/16/24 History (Linzess) nicotine 21 mg/24 hr daily 1 patch transdermal DAILY #28 ea 08/16/24 Rx transdermal patch prednisone 20 mg tablet 40 mg (2 x 20 mg) PO DAILY 3 days 08/16/24 Rx #6 tabs New Prescriptions to Start Prescriptions: doxycycline hyclate Filomena,Sulaiman [id number] [Trelegy Ellipta] Filomena,Sulaiman furosemide Filomena,Sulaiman nicotine Filomena,Sulaiman prednisone Filomena,Sulaiman Allergies Allergy/AdvReac Type Severity Reaction Status Date / Time No Known Allergies Allergy Verified 07/28/24 21:23 Discharge Plan Disposition Patient Disposition: Home Health Service Condition: Fair Discharge Order Discharge Orders: Discharge Order (Routine); Ordered 08/16/24 Ordered By: Sulaiman Butt Follow up Plan Follow up with: Srini Gan MD [Physician] - 08/19/24 (please call for appointment) Prescriptions/Medication Reconciliation: New prednisone 20 mg Tablet 40 mg PO DAILY 3 Days Qty: 6 0RF doxycycline hyclate 100 mg Tablet 100 mg PO BID 4 Days Qty: 8 0RF nicotine 21 mg/24 hr patch 24 hour 1 patch transdermal DAILY Qty: 28 0RF Trelegy Ellipta 100-62.5-25 mcg blister with device 1 inh inhalation DAILY Qty: 60 0RF Continued ipratropium-albuterol 0.5 mg-3 mg(2.5 mg base)/3 mL solution for nebulization 3 ml INHALATION QIDP PRN (Reason: Shortness Of Breath) magnesium oxide 250 mg magnesium tablet 250 mg PO BID polyethylene glycol 3350 [Miralax] 17 gram/dose powder 17 g PO DAILY Qty: 510 0RF Linzess 145 mcg capsule 145 mcg PO DAILY furosemide 40 mg tablet 40 mg PO DAILY 30 Days Qty: 30 0RF alprazolam 1 mg tablet 1 mg PO BID montelukast 10 mg tablet 10 mg PO PM losartan 100 mg tablet 100 mg PO DAILY celecoxib 50 mg capsule 50 mg PO DAILY duloxetine 30 mg capsule,delayed release(DR/EC) 30 mg PO DAILY calcium carbonate-vitamin D3 600 mg-5 mcg (200 unit) tablet 1 tab PO BIDWMEAL hydrocodone-acetaminophen 10-325 mg tablet 1 tab PO DAILY gabapentin 800 mg tablet 800 mg PO TID cholecalciferol (vitamin D3) 1,250 mcg (50,000 unit) capsule 1,250 mcg PO WEEKLY albuterol sulfate 90 mcg/actuation HFA aerosol inhaler 2 inh INHALATION NEEDED PRN (Reason: shortness of air) potassium chloride 20 mEq tablet,ER particles/crystals 40 meq PO BID Rx Instructions: with food amlodipine 10 mg Tablet 10 mg PO DAILY Qty: 30 0RF Discontinued fluticasone propion-salmeterol [Advair Diskus] 250-50 mcg/dose blister with device 1 inh INHALATION BIDRT Problem Reconciliation Problems Reviewed?: Yes Patient Discharge Instructions Patient Instructions: DI for Chronic Obstructive Pulmonary Disease Print Language: Vietnamese Providers Primary Care Provider: Stephanie Espinoza Admit Provider: Sulaiman Butt Attending Provider: Sulaiman Butt
--- NOTE | 2024-08-16 10:49 | HMH.PHAINT1 ---
Pharmacy Intervention Comments: MEDICATION RECONCILIATION COMPLETE USING EXTERNAL PHARMACY FILL HISTORY AND RECENT HOSPITAL DISCHARGE NOTE.
[2024-08-16] MEDS: BUDESONIDE 0.5MG/2ML NEB 0.5 MG IH (11:20)
--- NOTE | 2024-08-18 10:40 | SW/DCPLANNER ---
Spoke with patient on the phone. Patient stated that she is doing better. Patient stated that she is aware of her upcoming appointment and that she was not going. Patient stated that she has not picked up her new medicine and that she was going today to her primary care provider and taking the list of new medicine for he can see them. Patient stated that she does not want home health services at this time. Patient stated that she has no concerns or questions at this time. Leonel Thomas
== END 2024-08-16 12:42 | disposition home health service (06) ==
LOC: ER 20:12 → 2ND 21:51
PROVIDERS: Nurse Practitioner; Nurse Practitioner Family; Admitting Provider Student in an Organized Health Care Education/Training Program; Emergency Provider Emergency Medicine; PCP Nurse Practitioner; Visit Provider Student in an Organized Health Care Education/Training Program
DX: J44.1 Chronic obstructive pulmonary disease with (acute) exacerbation (principal); J96.11 Chronic respiratory failure with hypoxia; I10 Essential (primary) hypertension; F17.210 Nicotine dependence, cigarettes, uncomplicated; R91.8 Other nonspecific abnormal finding of lung field; R60.0 Localized edema; E87.6 Hypokalemia; Z79.51 Long term (current) use of inhaled steroids; Z79.899 Other long term (current) drug therapy; Z99.81 Dependence on supplemental oxygen; Z85.41 Personal history of malignant neoplasm of cervix uteri
CPT/HCPCS: 36415; 71045; 73630; 80048; 80053; 82803; 83880; 84484; 85025; 87040; 87633; 87636; 93005; 94640; 94760; 99285; G0378; J0456; J1650; J1940; J2919; J3475; J3480; J7050; J7620

== ENCOUNTER 2024-09-24 14:13 | Outpatient (CLI) | payer MEDICARE, SELFPAY ==
--- NOTE | 2024-09-24 14:17 | XR_ITS ---
FINAL REPORT CLINICAL HISTORY: foot pain COMPARISON: None FINDINGS: LEFT FOOT Three views of the left foot demonstrate no acute fracture or dislocation. The visualized joint spaces are normally aligned. There is soft tissue edema involving the dorsum of the foot measuring 1.7 cm in thickness. IMPRESSION: Dorsal soft tissue swelling, with no acute bony abnormality. Reviewed, Interpreted and Dictated by Eliel Moreno MD Transcribed by Lissa Renee Authenticated and [facility]
[2024-09-24 17:20] LABS: Basophils # 0.1 K/mm3 (0-0.2); Basophils % 0.6 % (0.1-2.0); Eosinophils # 0.2 K/mm3 (0.0-0.4); Eosinophils % 1.8 % (0.1-12.0); Hematocrit 37.4 % (37.0-47.0); Hemoglobin 12.2 g/dL (12.2-16.2); Lymphocytes # 2.4 K/mm3 (0.7-4.5); Lymphocytes % 27.7 % (10-50); Mean Corpuscular HGB Conc 32.6 g/dL (31.8-35.4); Mean Corpuscular Hemoglobin 30.2 pg (27.0-31.2); Mean Corpuscular Volume 92.6 fl (81-99); Mean Platelet Volume 9.2 fl (7.4-10.4); Monocytes # 0.4 K/mm3 (0.1-1.0); Monocytes % 4.7 % (1.7-9.3); Neutrophils # 5.5 K/mm3 (1.8-7.8); Platelet Count 280 K/mm3 (142-424); Red Blood Count 4.04 M/mm3 (4.20-5.40); Red Cell Distribution Width 12.8 % (11.5-17.5); White Blood Count 8.5 K/mm3 (4.8-10.8)
[2024-09-24 17:36] LABS: Albumin Level 4.1 g/dl (3.5-5.0); Chloride 97 mmol/L (98-107); Sodium 133 mmol/L (136-145)
[2024-09-24 17:37] LABS: Potassium 4.1 mmoL/L (3.5-5.1)
[2024-09-24 17:39] LABS: Alanine Aminotransferase 12 U/L (12-78); Anion Gap 7.1 mEq/L (5-15); Aspartate Amino Transferase 27 U/L (14-36); Blood Urea Nitrogen 15 mg/dl (7-17); Carbon Dioxide 33 mmol/L (22.0-30.0); Estimated Glomerular Filt Rate 71 ml/min (>60); GFR (African American) 86 ML/MIN (>60)
[2024-09-24 17:40] LABS: Albumin/Globulin Ratio 1.8 (1.1-1.8); Alkaline Phosphatase 73 U/L (38-126); Calcium 10.4 mg/dl (8.4-10.2); Globulin 2.3 g/dL (1.3-3.2); Glucose 95 mg/dl (74-100); Total Protein,Serum 6.4 g/dl (6.3-8.2)
[2024-09-24 17:42] LABS: Bilirubin,Total < 0.1 mg/dl (0.2-1.3)
[2024-09-24 17:45] LABS: C-Reactive Protein 2.9 mg/L (0-4)
[2024-09-24 18:10] LABS: Erythrocyte Sedimentation Rate 18 mm/hr (0-30)
== END 2024-09-24 23:59 | disposition home or self-care (01) ==
LOC: RAD 14:14
PROVIDERS: PCP Nurse Practitioner; Visit Provider Nurse Practitioner
DX: M79.672 Pain in left foot (principal); Z51.89 Encounter for other specified aftercare
CPT/HCPCS: 73630; 80053; 83036; 85025; 85651; 86140

== ENCOUNTER 2024-11-09 14:11 | Emergency (ER) | payer MEDICARE, SELFPAY ==
[2024-11-09] VITALS (12 sets, daily range): BP systolic 145–197; BP diastolic 83–104; PULSE 100–112; RESP 14–29; TEMP 36.6–37.1; O2SAT 83–100; BMI 22.3
--- NOTE | 2024-11-09 14:19 | ECG_ITS ---
APPROVED REPORT Exam: Resting ECG HR:125 bpm ECG Measurements Heart Rate 125 AXES OH 132 P 76 QRSd 81 QRS -84 QT 333 T 87 QTc 407 Conclusion SINUS TACHYCARDIA WITH FREQUENT SUPRAVENTRICULAR PREMATURE COMPLEXES LEFT AXIS DEVIATION [QRS AXIS < -30] PATTERN CONSISTENT WITH PULMONARY DISEASE Nonspecific ST changes Electronically signed by : ADRIAN HENDRIX, 11/10/2024 14:41:19
--- NOTE | 2024-11-09 14:36 | CT_ITS ---
FINAL REPORT TECHNIQUE: The patient was injected with IV contrast. Axial images were obtained through the chest in a PE protocol. 3-D reconstruction images were also performed. Individualized dose reduction techniques using automated exposure control or adjustment of the MA and/or KV according to patient's size were employed. CLINICAL HISTORY: soa cp COMPARISON: 04/15/2024 FINDINGS: Mediastinal vasculature is adequately opacified. No pulmonary artery filling defects are identified to suggest PE. There is no aortic dissection. There is no axillary adenopathy. There is no hilar or mediastinal adenopathy. A small to moderate hiatal hernia is noted. The heart size is normal. There is no pericardial or pleural effusion. There is a dominant focus in the posterior right upper lobe which is somewhat ill-defined. This focus measures 19 mm in diameter and is well-seen on image 44 of series 5. This has increased in size compared to the prior exam. There is a separate, smaller, more inferior focus measuring 10 mm in greatest dimension. This is has also increased in size and is well-seen on image 50 of series 5. There are moderate changes of centrilobular emphysema. Limited images of the upper abdomen demonstrate multiple bilateral renal cysts. IMPRESSION: No pulmonary embolus or dissection. Interval increase in size of right upper lobe masses concerning for neoplasm. PET/CT and/or tissue sampling is recommended. Reviewed, Interpreted and Dictated by Eliel Moreno MD Transcribed by Saira Moreno Authenticated and [facility]
--- NOTE | 2024-11-09 14:36 | XR_ITS ---
FINAL REPORT CLINICAL HISTORY: Cough, shortness of breath, chest pain COMPARISON: 08/15/2024 FINDINGS: The heart size is normal. The mediastinum is normal. Coarse linear densities in the lung bases are consistent with scarring or fibrosis. Findings are not significantly changed from the previous study. There are no pleural effusions. There is no pneumothorax. There is no osseous abnormality. IMPRESSION: No significant change. Reviewed, Interpreted and Dictated by Eliel Moreno MD Transcribed by Josee Smith Authenticated and [facility]
--- NOTE | 2024-11-09 14:39 | ED_ITS ---
Discharge Plan Disposition Patient Disposition: Home, Self-Care Condition: Good Prescriptions Prescriptions: No Action ipratropium-albuterol 0.5 mg-3 mg(2.5 mg base)/3 mL solution for nebulization 3 ml INHALATION QIDP PRN (Reason: Shortness Of Breath) doxycycline hyclate 100 mg capsule 100 mg PO BID 14 Days Qty: 28 0RF mupirocin 2 % ointment 1 applic topical BID 14 Days Qty: 22 2RF magnesium oxide 250 mg magnesium tablet 250 mg PO BID Linzess 145 mcg capsule 145 mcg PO DAILY furosemide 40 mg tablet 40 mg PO DAILY 30 Days Qty: 30 0RF Trelegy Ellipta 100-62.5-25 mcg blister with device 1 inh inhalation DAILY Qty: 60 0RF alprazolam 1 mg tablet 1 mg PO BID montelukast 10 mg tablet 10 mg PO PM losartan 100 mg tablet 100 mg PO DAILY celecoxib 50 mg capsule 50 mg PO DAILY duloxetine 30 mg capsule,delayed release(DR/EC) 30 mg PO DAILY calcium carbonate-vitamin D3 600 mg-5 mcg (200 unit) tablet 1 tab PO BIDWMEAL hydrocodone-acetaminophen 10-325 mg tablet 1 tab PO DAILY gabapentin 800 mg tablet 800 mg PO TID cholecalciferol (vitamin D3) 1,250 mcg (50,000 unit) capsule 1,250 mcg PO WEEKLY albuterol sulfate 90 mcg/actuation HFA aerosol inhaler 2 inh INHALATION NEEDED PRN (Reason: shortness of air) potassium chloride 20 mEq tablet,ER particles/crystals 40 meq PO BID Rx Instructions: with food amlodipine 10 mg Tablet 10 mg PO DAILY Qty: 30 0RF Referrals Follow up/Referrals: Stephanie Espinoza APRN [Primary Care Provider] - See instructions Activity Restrictions/Add. Instructions Additional Instructions/Restrictions: Today you were evaluated in the emergency department and diagnosed with a COPD exacerbation. Please wear your oxygen at home. Use your inhaler as directed. Please follow-up with your PCP within 24 to 72 hours. You were offered admission today, if you change your mind please return to the ED immediately. Please return to the ED immediately if your condition worsens at all. It is imperative that you follow-up with cardiology and pulmonology. Clinical Impressions Clinical Impression: COPD exacerbation, Lung nodule Instructions Patient Instructions: Chronic Obstructive Pulmonary Disease Print Language Print Language: Kazakh Discharge ED Provider: Augustus Lovelace General Adult HPI <Nicole Marin APRN - Last Filed: 11/09/24 18:35> General Chief complaint: Weakness Stated complaint: weakness soa Time Seen by Provider: 11/09/24 14:15 Mode of Arrival: Wheelchair Source of Information: Patient and Relative Description of Symptoms (Recalled from ER Triage Doc. by RN): pt is here for weakness and shortness of breath, recently d/c from [facility] with pneumonia, pt still smokes daily and does not have a long doctor History of Present Illness HPI narrative: Patient is a 69-year-old female PMHx COPD (2L prn), Hx of lung nodule, HTN, current tobacco use (2 pks x 50 years), history of alcoholism who presents to the ED for complaints of chest pain, shortness of breath, generalized weakness x 3 to 4 days. Related Data Home Medications ?Medication ?Instructions ?Recorded ?Confirmed ipratropium 0.5 mg-albuterol 3 mg 3 ml inhalation QIDP PRN Shortness 07/03/21 09/24/24 (2.5 mg base)/3 mL nebulization Of Breath soln albuterol sulfate 90 mcg/actuation 2 inh inhalation NEEDED PRN 04/15/24 09/24/24 aerosol inhaler shortness of air alprazolam 1 mg tablet 1 mg PO BID 04/15/24 09/24/24 calcium 600 mg (as 1 tab PO BIDWMEAL 04/15/24 09/24/24 carbonate)-vitamin D3 5 mcg (200 unit) tablet celecoxib 50 mg capsule 50 mg PO DAILY 04/15/24 09/24/24 cholecalciferol (vitamin D3) 1,250 1,250 mcg PO WEEKLY 04/15/24 09/24/24 mcg (50,000 unit) capsule duloxetine 30 mg capsule,delayed 30 mg PO DAILY 04/15/24 09/24/24 release gabapentin 800 mg tablet 800 mg PO TID 04/15/24 09/24/24 hydrocodone 10 mg-acetaminophen 1 tab PO DAILY 04/15/24 09/24/24 325 mg tablet losartan 100 mg tablet 100 mg PO DAILY 04/15/24 09/24/24 montelukast 10 mg tablet 10 mg PO PM 04/15/24 09/24/24 potassium chloride 20 mEq 40 meq PO BID 04/15/24 09/24/24 tablet,extended release(part/cryst) magnesium oxide 250 mg PO BID 07/29/24 09/24/24 linaclotide 145 mcg capsule 145 mcg PO DAILY 08/16/24 09/24/24 (Linzess) Previous Rx's ?Medication ?Instructions ?Recorded amlodipine 10 mg tablet 10 mg PO DAILY #30 tabs 04/16/24 fluticasone fur. 100 mcg-umeclid 1 inh inhalation DAILY #60 ea 08/16/24 62.5 mcg-vilant 25 mcg inhalat.powder (Trelegy Ellipta) furosemide 40 mg tablet 40 mg PO DAILY 30 days #30 tabs 08/16/24 doxycycline hyclate 100 mg capsule 100 mg PO BID infection 14 days 09/24/24 #28 caps mupirocin 2 % topical ointment 1 applic topical BID infection 14 09/24/24 days #22 grams Allergies Allergy/AdvReac Type Severity Reaction Status Date / Time No Known Allergies Allergy Verified 09/24/24 15:16 COUNT INCLUDES THE [facility] <Nicole Marin APRN - Last Filed: 11/09/24 18:35> COUNT INCLUDES THE [facility] Disclaimer: The information contained in this section may have been updated after the patient was seen, as this information can be updated by other users. Medical History Sepsis without septic shock Lymphedema Physical deconditioning General weakness Lung mass Hypomagnesemia Acute hypokalemia Chronic hyponatremia Generalized weakness COPD mixed type Lung nodule Hypokalemia Elevated troponin COPD (chronic obstructive pulmonary disease) Nocturnal hypoxemia Pulmonary emphysema Incidental pulmonary nodule, greater than or equal to 8mm Smoking greater than 30 pack years Dyspnea on exertion Tobacco abuse disorder Tobacco abuse counseling COPD (chronic obstructive pulmonary disease) Cervical cancer Surgical History History of dilation and curettage History of back surgery Family History Other Diabetes Social History Smoking Status: Never smoker second hand exposure: Yes alcohol intake: current alcohol intake frequency: 0-2 drinks per day current occupational status: unemployed Travel in the last 8 weeks?: None household members: spouse housing: house current occupational exposures/hazards: No Have you lived/traveled outside [place] in past 30 days?: No Contact w/someone who lives/traveled outside [place] past 30 days?: No Exposure to someone with infectious disease in past 14 days?: No Do you have a fever (greater than 100.4 F or 38 C)?: No Have you tested positive for COVID-19?: No Exposed to someone with COVID-19 in past 14 days?: No Do you have a sore throat?: No Do you have a cough?: No Do you have any weakness?: No Do you have any diarrhea?: No Are you experiencing any unusual bleeding?: No Do you have any muscle aches/pain?: No Do you have any abdominal pain?: No Are you experiencing loss of taste or smell?: No Other Medical History Have you received the Flu Vaccine for this season: No Have you received the Pneumonia Vaccine: Yes <Nicole Marin APRN - Last Filed: 11/09/24 18:35> ROS Obtained: Yes Systems reviewed as appropriate & no additional complaints except as documented Physical Exam <Nicole Marin APRN - Last Filed: 11/09/24 18:35> General General appearance: alert Head Head exam: atraumatic and normocephalic Eye Eye exam: Present normal appearance and PERRL; Absent nystagmus ENT ENT exam: Present normal exam Neck Neck exam: Present normal inspection Chest Chest inspection: Present normal inspection and symmetric chest wall rise; Absent tenderness Respiratory Respiratory exam: Present respiratory distress, wheezes and accessory muscle use Cardiovascular Cardiovascular exam: Present tachycardia Abdominal Exam Abdominal exam: Present soft and normal bowel sounds; Absent tenderness Extremities Exam Extremities exam: Present full ROM and edema (2+ bilateral ) Back Exam Back exam: Present normal inspection and full ROM; Absent tenderness Neurological Exam Neurological exam: Present alert and oriented X3 Psychiatric Psychiatric exam: Present normal affect and normal mood Skin Skin exam: Present warm and dry Medical Decision Making <Nicole Marin APRN - Last Filed: 11/09/24 18:35> Medical Records Screening: Per USPSTF and CDC recommendations, given the prevalence of disease in our region, it is our hospital?s policy to screen for HIV and viral Hepatitis for all patients aged 18 and over and those with ongoing risk factors. Azael Inquiry Pt receiving controlled substance: No Vital Signs: 11/09/24 14:26 11/09/24 14:31 11/09/24 14:45 Temperature 97.9 F Temperature Source Oral Pulse Rate 106 H 110 H Pulse Rate [Left Radial] 110 H Respiratory Rate 20 17 21 Blood Pressure 145/87 H Blood Pressure [Right Arm] 178/83 H Blood Pressure Mean Blood Pressure Mean [Right Arm] 114 02 Sat by Pulse Oximetry 83 L 97 99 Oxygen Delivery Method Room Air Oxygen Flow Rate (LPM) 11/09/24 15:00 11/09/24 15:30 11/09/24 16:00 Temperature Temperature Source Pulse Rate 109 H Pulse Rate [Left Radial] Respiratory Rate 20 14 24 Blood Pressure 168/91 H 166/94 H 165/94 H Blood Pressure [Right Arm] Blood Pressure Mean Blood Pressure Mean [Right Arm] 02 Sat by Pulse Oximetry 100 Oxygen Delivery Method Oxygen Flow Rate (LPM) 11/09/24 16:15 11/09/24 16:30 11/09/24 17:00 Temperature Temperature Source Pulse Rate 112 H 106 H 111 H Pulse Rate [Left Radial] Respiratory Rate 22 23 29 H Blood Pressure 175/93 H 173/104 H Blood Pressure [Right Arm] Blood Pressure Mean 127 Blood Pressure Mean [Right Arm] 02 Sat by Pulse Oximetry 98 98 97 Oxygen Delivery Method Oxygen Flow Rate (LPM) 11/09/24 17:31 11/09/24 18:00 11/09/24 18:20 Temperature 98.7 F Temperature Source Oral Pulse Rate 112 H 100 H Pulse Rate [Left Radial] Respiratory Rate 26 H 20 Blood Pressure 197/104 H 167/98 H 160/98 H Blood Pressure [Right Arm] Blood Pressure Mean 135 121 Blood Pressure Mean [Right Arm] 02 Sat by Pulse Oximetry 94 L Oxygen Delivery Method Nasal Cannula Oxygen Flow Rate (LPM) 2 Lab Data Lab Results 11/09/24 14:20: WBC 11.0 H, RBC 4.17 L, Hgb 12.4, Hct 40.1, MCV 96.2, MCH 29.7, MCHC 30.9 L, RDW 14.6, Plt Count 285, MPV 8.8, Neut % (Auto) 66.3, Lymph % (Auto) 25.2, [place] % (Auto) 6.7, Eos % (Auto) 0.8, Baso % (Auto) 0.5, Neut # (Auto) 7.3, Lymph # (Auto) 2.8, [place] # (Auto) 0.7, Eos # (Auto) 0.1, Baso # (Auto) 0.1, PT 9.9 L, INR 0.87 L, APTT 26.4, D-Dimer 0.92 H, Sodium 138, Potassium 3.6, Chloride 98, Carbon Dioxide 38 H, Anion Gap 5.6, BUN 12, Creatinine 0.90, Estimated Creat Clear 45, Estimated GFR 62, Est GFR ( Amer) 75, Glucose 111 H, Calcium 9.8, Magnesium 1.5 L, Total Bilirubin 0.2, AST 22, ALT 13, Alkaline Phosphatase 59, Troponin I 0.04 H, NT-Pro-B Natriuret Pep 2290 H, Total Protein 6.6, Albumin 3.9, Globulin 2.7, Albumin/Globulin Ratio 1.4, Triglycerides 118, Cholesterol 156, LDL Cholesterol Direct 41.55 L, VLDL Cholesterol 24, HDL Cholesterol 84 H, Cholesterol/HDL Ratio 1.9 11/09/24 14:33: VBG pH 7.33, VBG pCO2 66.7 H, VBG pO2 38.5, VBG HCO3 34.2 H, VBG Total CO2 36.3 H, VBG O2 Saturation 74.9 H, VBG Base Excess 8.3 H, VBG Lactic Acid 1.5 11/09/24 16:11: Urine Color Yellow, Urine Appearance Clear, Urine pH 7.0, Ur Specific [place] 1.010, Urine Protein Negative, Urine Glucose (UA) Negative, Urine Ketones Negative, Urine Blood Negative, Urine Nitrate Negative, Urine Bilirubin Negative, Urine Urobilinogen 0.2, Ur Leukocyte Esterase Negative, Urine RBC Occasional, Urine WBC None, Ur Squamous Epith Cells None, Urine Bacteria None, Urine Opiates Screen Positive H, Urine Methadone Screen Negative, Ur Barbituates Screen Negative, Ur Phencyclidine Scrn Negative, Ur Amphetamines Screen Negative, U Benzodiazepines Scrn Positive H, Urine Cocaine Screen Negative, U Marijuana (THC) Screen Negative 11/09/24 16:17: Troponin I 0.04 H 11/09/24 14:20 11/09/24 14:20 Orders (Tests/Meds): ED MEDICATIONS Discontinued Medications Generic Name Dose Route Start Last Admin Trade Name Freq PRN Reason Stop Dose Admin Albuterol/Ipratropium 3 ml 11/09/24 14:38 11/09/24 14:42 Ipratropium/Albuterol 3 Ml Neb IH 11/09/24 14:39 3 ml ONCE ONE Administration Aspirin 324 mg 11/09/24 14:36 11/09/24 14:42 Aspirin 81mg Chewable Tablet PO 11/09/24 14:37 324 mg ONCE ONE Administration Fluticasone/Umeclidinium/Vilanterol 1 puff 11/09/24 18:15 11/09/24 18:15 Fluticasone/Umeclidin/Vilanter 100/62.5/25mcg Inhaler IH 12/09/24 18:14 1 puff DAILY VICENTE Administration Furosemide 40 mg 11/09/24 16:51 11/09/24 16:57 Furosemide 40mg/4ml Vial IV 11/09/24 16:52 40 mg ONCE ONE Administration Iopamidol 70 ml 11/09/24 15:07 11/09/24 15:09 Iopamidol-370 (76%);100ml Bottle IV 11/09/24 15:08 70 ml ONCE ONE Administration Methylprednisolone Sodium Succinate 125 mg 11/09/24 14:38 11/09/24 14:42 Methylprednisolone Sod Succ 125mg Vial IV 11/09/24 14:39 125 mg ONCE ONE Administration Nitroglycerin 0.4 mg 11/09/24 14:36 Nitroglycerin 0.4mg Sl Tablet SL 11/10/24 14:36 Q5MINP PRN Chest Pain Sodium Chloride 10 ml 11/09/24 15:07 11/09/24 15:09 Sodium Chloride 0.9% 10ml Syr (Rad Only) IV 11/09/24 15:08 10 ml ONCE ONE Administration Sodium Chloride 50 ml 11/09/24 15:07 11/09/24 15:09 0.9 % Sodium Chloride 50 Ml Vial IV 11/09/24 15:08 50 ml ONCE ONE Administration ORDERS Category Date Time Status CT angio chest PE protocol Stat Cat Scan 11/09/24 14:36 Completed POCUS Point of Care (ER Only) Stat Exams 11/09/24 15:05 Completed XR chest portable Stat Exams 11/09/24 14:36 Completed Activated Partial Thrombo Time Stat Lab 11/09/24 14:20 Completed Complete Blood Count Auto Diff Stat Lab 11/09/24 14:20 Completed Comprehensive Metabolic Panel Stat Lab 11/09/24 14:20 Completed D-Dimer Stat Lab 11/09/24 14:20 Completed Lipid Panel Stat Lab 11/09/24 14:20 Completed Magnesium Stat Lab 11/09/24 14:20 Completed NT Pro Brain Natriuretic Pep. Stat Lab 11/09/24 14:20 Completed Prothrombin Time INR Stat Lab 11/09/24 14:20 Completed Troponin I Q3H Lab 11/09/24 16:17 Completed Troponin I Q3H Lab 11/09/24 20:45 Ordered Troponin I Stat Lab 11/09/24 14:20 Completed UDS [Drug Screen,Urine] Stat Lab 11/09/24 16:11 Completed Urinalysis and Microscopic Stat Lab 11/09/24 16:11 Completed VBG [Venous Blood Gas] Stat RT 11/09/24 14:33 Completed Medical Decision Narrative: In summary, patient is a 69-year-old female PMHx COPD (2L prn), Hx of lung nodule, HTN, current tobacco use (2 pks x 50 years), history of alcoholism who presents to the ED for complaints of chest pain, shortness of breath, generalized weakness x 3 to 4 days. Patient states she has had constant left- sided chest pain that feels like a stabbing pain that does not radiate x 3 days. Patient states she has had chest pain in the past (without history of HI) that typically resolves on its own. Patient states she does not follow with pulmonology or cardiology as recommended. She states at home she is ambulatory with a cane. Denies fever, chills, headache, visual disturbances, posterior neck pain, abdominal pain, nausea, vomiting, dysuria. Upon initial evaluation patient is alert, oriented and cooperative. Respiratory distress noted, O2 sat RA 83% (placed on 2L & O2 sat 94%), lung sounds decreased, expiratory wheezing noted. Tachycardia. Patient has bilateral 2+ edema of the lower extremities. Differential diagnosis include pulmonary embolism, ACS, pneumonia, pneumothorax, COPD exacerbation, electrolyte abnormality, among others. Discussed with patient that we will proceed with CT scan, chest x-ray, EKG, lab work. Patient symptomatically managed with DuoNeb and Solu-Medrol for shortness of breath most likely due to COPD exacerbation. Hematologic labs reviewed, CBC remarkable for leukocytosis, WBC 11, stable H&H. PT 9.9, INR 0.87, APTT 26.4. CMP remarkable for CO2 38. First troponin 0.04. D-dimer 0.92. BNP 2290. Chest CTA remarkable for no pulmonary emboli or dissection. Interval increase in the size of the right upper lobe mass concerning for neoplasm, PET and CT or tissue sampling recommended. Patient is already aware of this nodule and states she does not want to have it evaluated further. Upon reassessment, patient is no longer in respiratory distress, she is no longer hypoxic or tachycardic. She states her condition has improved. I discussed with her possible admission for COPD exacerbation, elevated troponins, low magnesium and elevated BNP she was agreeable to speak to hospitalist. After patient spoke to the hospitalist, she is agreeable to be discharged home at this time with follow-up. Patient was discharged with a Trelegy inhaler and DuoNebs. We discussed very strict return precautions to the ED and patient verbalized understanding. Her son was present at discharge. She was hemodynamically stable. DO Brayden: I was consulted by the ASHOK, and we discussed the complexity of the problems being addressed. I approved the treatment and management plan for this patient's care in the emergency department, thus performing a substantive portion of the medical decision making. Workup pending at time of signout to oncoming provider, Dr. Lovelace. Felicia Owen DO <Felicia Owen DO - Last Filed: 11/09/24 14:59> Vital Signs: 11/09/24 14:26 11/09/24 14:31 11/09/24 14:45 Temperature 97.9 F Temperature Source Oral Pulse Rate 106 H 110 H Pulse Rate [Left Radial] 110 H Respiratory Rate 20 17 21 Blood Pressure 145/87 H Blood Pressure [Right Arm] 178/83 H Blood Pressure Mean Blood Pressure Mean [Right Arm] 114 02 Sat by Pulse Oximetry 83 L 97 99 Oxygen Delivery Method Room Air Oxygen Flow Rate (LPM) 11/09/24 15:00 11/09/24 15:30 11/09/24 16:00 Temperature Temperature Source Pulse Rate 109 H Pulse Rate [Left Radial] Respiratory Rate 20 14 24 Blood Pressure 168/91 H 166/94 H 165/94 H Blood Pressure [Right Arm] Blood Pressure Mean Blood Pressure Mean [Right Arm] 02 Sat by Pulse Oximetry 100 Oxygen Delivery Method Oxygen Flow Rate (LPM) 11/09/24 16:15 11/09/24 16:30 11/09/24 17:00 Temperature Temperature Source Pulse Rate 112 H 106 H 111 H Pulse Rate [Left Radial] Respiratory Rate 22 23 29 H Blood Pressure 175/93 H 173/104 H Blood Pressure [Right Arm] Blood Pressure Mean 127 Blood Pressure Mean [Right Arm] 02 Sat by Pulse Oximetry 98 98 97 Oxygen Delivery Method Oxygen Flow Rate (LPM) 11/09/24 17:31 11/09/24 18:00 11/09/24 18:20 Temperature 98.7 F Temperature Source Oral Pulse Rate 112 H 100 H Pulse Rate [Left Radial] Respiratory Rate 26 H 20 Blood Pressure 197/104 H 167/98 H 160/98 H Blood Pressure [Right Arm] Blood Pressure Mean 135 121 Blood Pressure Mean [Right Arm] 02 Sat by Pulse Oximetry 94 L Oxygen Delivery Method Nasal Cannula Oxygen Flow Rate (LPM) 2 Lab Data Lab Results 11/09/24 14:20: WBC 11.0 H, RBC 4.17 L, Hgb 12.4, Hct 40.1, MCV 96.2, MCH 29.7, MCHC 30.9 L, RDW 14.6, Plt Count 285, MPV 8.8, Neut % (Auto) 66.3, Lymph % (Auto) 25.2, [place] % (Auto) 6.7, Eos % (Auto) 0.8, Baso % (Auto) 0.5, Neut # (Auto) 7.3, Lymph # (Auto) 2.8, [place] # (Auto) 0.7, Eos # (Auto) 0.1, Baso # (Auto) 0.1, PT 9.9 L, INR 0.87 L, APTT 26.4, D-Dimer 0.92 H, Sodium 138, Potassium 3.6, Chloride 98, Carbon Dioxide 38 H, Anion Gap 5.6, BUN 12, Creatinine 0.90, Estimated Creat Clear 45, Estimated GFR 62, Est GFR ( Amer) 75, Glucose 111 H, Calcium 9.8, Magnesium 1.5 L, Total Bilirubin 0.2, AST 22, ALT 13, Alkaline Phosphatase 59, Troponin I 0.04 H, NT-Pro-B Natriuret Pep 2290 H, Total Protein 6.6, Albumin 3.9, Globulin 2.7, Albumin/Globulin Ratio 1.4, Triglycerides 118, Cholesterol 156, LDL Cholesterol Direct 41.55 L, VLDL Cholesterol 24, HDL Cholesterol 84 H, Cholesterol/HDL Ratio 1.9 11/09/24 14:33: VBG pH 7.33, VBG pCO2 66.7 H, VBG pO2 38.5, VBG HCO3 34.2 H, VBG Total CO2 36.3 H, VBG O2 Saturation 74.9 H, VBG Base Excess 8.3 H, VBG Lactic Acid 1.5 11/09/24 16:11: Urine Color Yellow, Urine Appearance Clear, Urine pH 7.0, Ur Specific [place] 1.010, Urine Protein Negative, Urine Glucose (UA) Negative, Urine Ketones Negative, Urine Blood Negative, Urine Nitrate Negative, Urine Bilirubin Negative, Urine Urobilinogen 0.2, Ur Leukocyte Esterase Negative, Urine RBC Occasional, Urine WBC None, Ur Squamous Epith Cells None, Urine Bacteria None, Urine Opiates Screen Positive H, Urine Methadone Screen Negative, Ur Barbituates Screen Negative, Ur Phencyclidine Scrn Negative, Ur Amphetamines Screen Negative, U Benzodiazepines Scrn Positive H, Urine Cocaine Screen Negative, U Marijuana (THC) Screen Negative 11/09/24 16:17: Troponin I 0.04 H Orders (Tests/Meds): ED MEDICATIONS Discontinued Medications Generic Name Dose Route Start Last Admin Trade Name Freq PRN Reason Stop Dose Admin Albuterol/Ipratropium 3 ml 11/09/24 14:38 11/09/24 14:42 Ipratropium/Albuterol 3 Ml Neb 11/09/24 14:39 3 ml ONCE ONE Administration Aspirin 324 mg 11/09/24 14:36 11/09/24 14:42 Aspirin 81mg Chewable Tablet PO 11/09/24 14:37 324 mg ONCE ONE Administration Fluticasone/Umeclidinium/Vilanterol 1 puff 11/09/24 18:15 11/09/24 18:15 Fluticasone/Umeclidin/Vilanter 100/62.5/25mcg Inhaler 12/09/24 18:14 1 puff DAILY VICENTE Administration Furosemide 40 mg 11/09/24 16:51 11/09/24 16:57 Furosemide 40mg/4ml Vial IV 11/09/24 16:52 40 mg ONCE ONE Administration Iopamidol 70 ml 11/09/24 15:07 11/09/24 15:09 Iopamidol-370 (76%);100ml Bottle IV 11/09/24 15:08 70 ml ONCE ONE Administration Methylprednisolone Sodium Succinate 125 mg 11/09/24 14:38 11/09/24 14:42 Methylprednisolone Sod Succ 125mg Vial IV 11/09/24 14:39 125 mg ONCE ONE Administration Nitroglycerin 0.4 mg 11/09/24 14:36 Nitroglycerin 0.4mg Sl Tablet SL 11/10/24 14:36 Q5MINP PRN Chest Pain Sodium Chloride 10 ml 11/09/24 15:07 11/09/24 15:09 Sodium Chloride 0.9% 10ml Syr (Rad Only) IV 11/09/24 15:08 10 ml ONCE ONE Administration Sodium Chloride 50 ml 11/09/24 15:07 11/09/24 15:09 0.9 % Sodium Chloride 50 Ml Vial IV 11/09/24 15:08 50 ml ONCE ONE Administration ORDERS Category Date Time Status CT angio chest PE protocol Stat Cat Scan 11/09/24 14:36 Completed POCUS Point of Care (ER Only) Stat Exams 11/09/24 15:05 Completed XR chest portable Stat Exams 11/09/24 14:36 Completed Activated Partial Thrombo Time Stat Lab 11/09/24 14:20 Completed Complete Blood Count Auto Diff Stat Lab 11/09/24 14:20 Completed Comprehensive Metabolic Panel Stat Lab 11/09/24 14:20 Completed D-Dimer Stat Lab 11/09/24 14:20 Completed Lipid Panel Stat Lab 11/09/24 14:20 Completed Magnesium Stat Lab 11/09/24 14:20 Completed NT Pro Brain Natriuretic Pep. Stat Lab 11/09/24 14:20 Completed Prothrombin Time INR Stat Lab 11/09/24 14:20 Completed Troponin I Q3H Lab 11/09/24 16:17 Completed Troponin I Q3H Lab 11/09/24 20:45 Ordered Troponin I Stat Lab 11/09/24 14:20 Completed UDS [Drug Screen,Urine] Stat Lab 11/09/24 16:11 Completed Urinalysis and Microscopic Stat Lab 11/09/24 16:11 Completed VBG [Venous Blood Gas] Stat RT 11/09/24 14:33 Completed ECG Data Tracing #1: I reviewed this ECG and interpreted as documented below: Sinus tachycardia with a ventricular to 125 bpm with frequent PACs. No STEMI ECG initial impression date: 11/09/24 ECG initial impression time: 14:21 Medical Decision Narrative: In summary, patient is a 69-year-old female PMHx COPD (2L prn), Hx of lung nodule, HTN, current tobacco use (2 pks x 50 years), history of alcoholism who presents to the ED for complaints of chest pain, shortness of breath, generalized weakness x 3 to 4 days. Patient states she has had constant left- sided chest pain that feels like a stabbing pain that does not radiate x 3 days. Patient states she has had chest pain in the past (without history of HI) that typically resolves on its own. Patient states she does not follow with pulmonology or cardiology as recommended. She states at home she is ambulatory with a cane. Denies fever, chills, headache, visual disturbances, posterior neck pain, abdominal pain, nausea, vomiting, dysuria. Upon initial evaluation patient is alert, oriented and cooperative. Respiratory distress noted, O2 sat RA 83% (placed on 2L & O2 sat 94%), lung sounds decreased, expiratory wheezing noted. Tachycardia. Patient has bilateral 2+ edema of the lower extremities. Differential diagnosis include pulmonary embolism, ACS, pneumonia, pneumothorax, COPD exacerbation, electrolyte abnormality, among others. Discussed with patient that we will proceed with CT scan, chest x-ray, EKG, lab work. Patient symptomatically managed with DuoNeb and Solu-Medrol for shortness of breath most likely due to COPD exacerbation. DO Brayden: I was consulted by the ASH[facility], and we discussed the complexity of the problems being addressed. I approved the treatment and management plan for this patient's care in the emergency department, thus performing a substantive portion of the medical decision making. Workup pending at time of signout to oncoming provider, Dr. Lovelace. Felicia Owen DO <Augustus Lovelace MD - Last Filed: 11/09/24 19:43> Vital Signs: 11/09/24 14:26 11/09/24 14:31 11/09/24 14:45 Temperature 97.9 F Temperature Source Oral Pulse Rate 106 H 110 H Pulse Rate [Left Radial] 110 H Respiratory Rate 20 17 21 Blood Pressure 145/87 H Blood Pressure [Right Arm] 178/83 H Blood Pressure Mean Blood Pressure Mean [Right Arm] 114 02 Sat by Pulse Oximetry 83 L 97 99 Oxygen Delivery Method Room Air Oxygen Flow Rate (LPM) 11/09/24 15:00 11/09/24 15:30 11/09/24 16:00 Temperature Temperature Source Pulse Rate 109 H Pulse Rate [Left Radial] Respiratory Rate 20 14 24 Blood Pressure 168/91 H 166/94 H 165/94 H Blood Pressure [Right Arm] Blood Pressure Mean Blood Pressure Mean [Right Arm] 02 Sat by Pulse Oximetry 100 Oxygen Delivery Method Oxygen Flow Rate (LPM) 11/09/24 16:15 11/09/24 16:30 11/09/24 17:00 Temperature Temperature Source Pulse Rate 112 H 106 H 111 H Pulse Rate [Left Radial] Respiratory Rate 22 23 29 H Blood Pressure 175/93 H 173/104 H Blood Pressure [Right Arm] Blood Pressure Mean 127 Blood Pressure Mean [Right Arm] 02 Sat by Pulse Oximetry 98 98 97 Oxygen Delivery Method Oxygen Flow Rate (LPM) 11/09/24 17:31 11/09/24 18:00 11/09/24 18:20 Temperature 98.7 F Temperature Source Oral Pulse Rate 112 H 100 H Pulse Rate [Left Radial] Respiratory Rate 26 H 20 Blood Pressure 197/104 H 167/98 H 160/98 H Blood Pressure [Right Arm] Blood Pressure Mean 135 121 Blood Pressure Mean [Right Arm] 02 Sat by Pulse Oximetry 94 L Oxygen Delivery Method Nasal Cannula Oxygen Flow Rate (LPM) 2 Lab Data Lab Results 11/09/24 14:20: WBC 11.0 H, RBC 4.17 L, Hgb 12.4, Hct 40.1, MCV 96.2, MCH 29.7, MCHC 30.9 L, RDW 14.6, Plt Count 285, MPV 8.8, Neut % (Auto) 66.3, Lymph % (Auto) 25.2, [place] % (Auto) 6.7, Eos % (Auto) 0.8, Baso % (Auto) 0.5, Neut # (Auto) 7.3, Lymph # (Auto) 2.8, [place] # (Auto) 0.7, Eos # (Auto) 0.1, Baso # (Auto) 0.1, PT 9.9 L, INR 0.87 L, APTT 26.4, D-Dimer 0.92 H, Sodium 138, Potassium 3.6, Chloride 98, Carbon Dioxide 38 H, Anion Gap 5.6, BUN 12, Creatinine 0.90, Estimated Creat Clear 45, Estimated GFR 62, Est GFR ( Amer) 75, Glucose 111 H, Calcium 9.8, Magnesium 1.5 L, Total Bilirubin 0.2, AST 22, ALT 13, Alkaline Phosphatase 59, Troponin I 0.04 H, NT-Pro-B Natriuret Pep 2290 H, Total Protein 6.6, Albumin 3.9, Globulin 2.7, Albumin/Globulin Ratio 1.4, Triglycerides 118, Cholesterol 156, LDL Cholesterol Direct 41.55 L, VLDL Cholesterol 24, HDL Cholesterol 84 H, Cholesterol/HDL Ratio 1.9 11/09/24 14:33: VBG pH 7.33, VBG pCO2 66.7 H, VBG pO2 38.5, VBG HCO3 34.2 H, VBG Total CO2 36.3 H, VBG O2 Saturation 74.9 H, VBG Base Excess 8.3 H, VBG Lactic Acid 1.5 11/09/24 16:11: Urine Color Yellow, Urine Appearance Clear, Urine pH 7.0, Ur Specific [place] 1.010, Urine Protein Negative, Urine Glucose (UA) Negative, Urine Ketones Negative, Urine Blood Negative, Urine Nitrate Negative, Urine Bilirubin Negative, Urine Urobilinogen 0.2, Ur Leukocyte Esterase Negative, Urine RBC Occasional, Urine WBC None, Ur Squamous Epith Cells None, Urine Bacteria None, Urine Opiates Screen Positive H, Urine Methadone Screen Negative, Ur Barbituates Screen Negative, Ur Phencyclidine Scrn Negative, Ur Amphetamines Screen Negative, U Benzodiazepines Scrn Positive H, Urine Cocaine Screen Negative, U Marijuana (THC) Screen Negative 11/09/24 16:17: Troponin I 0.04 H Orders (Tests/Meds): ED MEDICATIONS Discontinued Medications Generic Name Dose Route Start Last Admin Trade Name Freq PRN Reason Stop Dose Admin Albuterol/Ipratropium 3 ml 11/09/24 14:38 11/09/24 14:42 Ipratropium/Albuterol 3 Ml Neb IH 11/09/24 14:39 3 ml ONCE ONE Administration Aspirin 324 mg 11/09/24 14:36 11/09/24 14:42 Aspirin 81mg Chewable Tablet PO 11/09/24 14:37 324 mg ONCE ONE Administration Fluticasone/Umeclidinium/Vilanterol 1 puff 11/09/24 18:15 11/09/24 18:15 Fluticasone/Umeclidin/Vilanter 100/62.5/25mcg Inhaler IH 12/09/24 18:14 1 puff DAILY VICENTE Administration Furosemide 40 mg 11/09/24 16:51 11/09/24 16:57 Furosemide 40mg/4ml Vial IV 11/09/24 16:52 40 mg ONCE ONE Administration Iopamidol 70 ml 11/09/24 15:07 11/09/24 15:09 Iopamidol-370 (76%);100ml Bottle IV 11/09/24 15:08 70 ml ONCE ONE Administration Methylprednisolone Sodium Succinate 125 mg 11/09/24 14:38 11/09/24 14:42 Methylprednisolone Sod Succ 125mg Vial IV 11/09/24 14:39 125 mg ONCE ONE Administration Nitroglycerin 0.4 mg 11/09/24 14:36 Nitroglycerin 0.4mg Sl Tablet SL 11/10/24 14:36 Q5MINP PRN Chest Pain Sodium Chloride 10 ml 11/09/24 15:07 11/09/24 15:09 Sodium Chloride 0.9% 10ml Syr (Rad Only) IV 11/09/24 15:08 10 ml ONCE ONE Administration Sodium Chloride 50 ml 11/09/24 15:07 11/09/24 15:09 0.9 % Sodium Chloride 50 Ml Vial IV 11/09/24 15:08 50 ml ONCE ONE Administration ORDERS Category Date Time Status CT angio chest PE protocol Stat Cat Scan 11/09/24 14:36 Completed POCUS Point of Care (ER Only) Stat Exams 11/09/24 15:05 Completed XR chest portable Stat Exams 11/09/24 14:36 Completed Activated Partial Thrombo Time Stat Lab 11/09/24 14:20 Completed Complete Blood Count Auto Diff Stat Lab 11/09/24 14:20 Completed Comprehensive Metabolic Panel Stat Lab 11/09/24 14:20 Completed D-Dimer Stat Lab 11/09/24 14:20 Completed Lipid Panel Stat Lab 11/09/24 14:20 Completed Magnesium Stat Lab 11/09/24 14:20 Completed NT Pro Brain Natriuretic Pep. Stat Lab 11/09/24 14:20 Completed Prothrombin Time INR Stat Lab 11/09/24 14:20 Completed Troponin I Q3H Lab 11/09/24 16:17 Completed Troponin I Q3H Lab 11/09/24 20:45 Ordered Troponin I Stat Lab 11/09/24 14:20 Completed UDS [Drug Screen,Urine] Stat Lab 11/09/24 16:11 Completed Urinalysis and Microscopic Stat Lab 11/09/24 16:11 Completed VBG [Venous Blood Gas] Stat RT 11/09/24 14:33 Completed Medical Decision Narrative: In summary, patient is a 69-year-old female PMHx COPD (2L prn), Hx of lung nodule, HTN, current tobacco use (2 pks x 50 years), history of alcoholism who presents to the ED for complaints of chest pain, shortness of breath, generalized weakness x 3 to 4 days. Patient states she has had constant left- sided chest pain that feels like a stabbing pain that does not radiate x 3 days. Patient states she has had chest pain in the past (without history of HI) that typically resolves on its own. Patient states she does not follow with pulmonology or cardiology as recommended. She states at home she is ambulatory with a cane. Denies fever, chills, headache, visual disturbances, posterior neck pain, abdominal pain, nausea, vomiting, dysuria. Upon initial evaluation patient is alert, oriented and cooperative. Respiratory distress noted, O2 sat RA 83% (placed on 2L & O2 sat 94%), lung sounds decreased, expiratory wheezing noted. Tachycardia. Patient has bilateral 2+ edema of the lower extremities. Differential diagnosis include pulmonary embolism, ACS, pneumonia, pneumothorax, COPD exacerbation, electrolyte abnormality, among others. Discussed with patient that we will proceed with CT scan, chest x-ray, EKG, lab work. Patient symptomatically managed with DuoNeb and Solu-Medrol for shortness of breath most likely due to COPD exacerbation. Hematologic labs reviewed, CBC remarkable for leukocytosis, WBC 11, stable H&H. PT 9.9, INR 0.87, APTT 26.4. CMP remarkable for CO2 38. First troponin 0.04. D-dimer 0.92. BNP 2290. Chest CTA remarkable for no pulmonary emboli or dissection. Interval increase in the size of the right upper lobe mass concerning for neoplasm, PET and CT or tissue sampling recommended. Patient is already aware of this nodule and states she does not want to have it evaluated further. Upon reassessment, patient is no longer in respiratory distress, she is no longer hypoxic or tachycardic. She states her condition has improved. I discussed with her possible admission for COPD exacerbation, elevated troponins, low magnesium and elevated BNP she was agreeable to speak to hospitalist. After patient spoke to the hospitalist, she is agreeable to be discharged home at this time with follow-up. Patient was discharged with a Trelegy inhaler and DuoNebs. We discussed very strict return precautions to the ED and patient verbalized understanding. Her son was present at discharge. She was hemodynamically stable. DO Brayden: I was consulted by the ASHOK, and we discussed the complexity of the problems being addressed. I approved the treatment and management plan for this patient's care in the emergency department, thus performing a substantive portion of the medical decision making. Workup pending at time of signout to oncoming provider, Dr. Lovelace. DO Radu Frausto: ASHOK attestation I was consulted by the ASHOK, and we discussed the complexity of problems being addressed. I approved the treatment and management plan for this patient's care in the emergency department, thus performing a substantial portion of the medical decision making. I assumed care as described above by Dr. Owen. I also evaluated this patient at bedside. Patient was also evaluated by hospitalist who was consulted on the patient's case at bedside. Ultimately discharged as described above. Augustus Lovelace MD Procedures <Augustus Lovelace MD - Last Filed: 11/09/24 19:43> Miscellaneous Procedure Procedure Performed: Cardiac US Limited Cardiac Ultrasound Indication: Chest pain/shortness of breath Identified cardiac views: -Cardiac parasternal long axis -Cardiac parasternal short axis -Cardiac apical four-chamber -Cardiac subxiphoid Findings: Diminished left ventricular and right ventricular function, grossly. No precordial effusion. Impression: - From above Images were saved to permanent archive The study was technically adequate CPT: 22559 This study was performed by me, and I personally interpreted all images/videos. Based on my clinical judgement, these images were adequate and did not necessitate further imaging. Critical Care <Felicia Owen DO - Last Filed: 11/09/24 14:59> Critical Care Time Critical Care Time: No
[2024-11-09] MEDS: IPRATROPIUM/ALBUTEROL 3 ML NEB IH (14:42)
[2024-11-09] MEDS: METHYLPREDNISOLONE SOD SUCC 125MG VIAL 125 MG IV (14:42)
[2024-11-09] MEDS: ASPIRIN 81MG CHEWABLE TABLET 324 MG PO (14:42)
[2024-11-09 14:44] LABS: Basophils # 0.1 K/mm3 (0-0.2); Basophils % 0.5 % (0.1-2.0); Eosinophils # 0.1 Kmm3 (0.0-0.4); Eosinophils % 0.8 % (0.1-12.0); Hematocrit 40.1 % (37.0-47.0); Hemoglobin 12.4 g/dL (12.2-16.2); Lymphocytes # 2.8 K/mm3 (0.7-4.5); Lymphocytes % 25.2 % (10-50); Mean Corpuscular HGB Conc 30.9 g/dL (31.8-35.4); Mean Corpuscular Hemoglobin 29.7 pg (27.0-31.2); Mean Corpuscular Volume 96.2 fl (81-99); Mean Platelet Volume 8.8 fl (7.4-10.4); Monocytes # 0.7 K/mm3 (0.1-1.0); Monocytes % 6.7 % (1.7-9.3); Neutrophils # 7.3 K/mm3 (1.8-7.8); Neutrophils % 66.3 % (37.0-80.0); Nucleated Red Blood Cells # 0 10^3/uL; Nucleated Red Blood Cells % 0 %; Platelet Count 285 K/mm3 (142-424); Red Blood Count 4.17 M/mm3 (4.20-5.40); Red Cell Distribution Width 14.6 % (11.5-17.5)
[2024-11-09 14:45] LABS: Lactate Venous 1.5 mmol/L (0.4-2.0); VBG Base Excess 8.3 mmol/L (-2.4-2.3); VBG HCO3 34.2 mmol/L (23-30); VBG Oxygen Saturation 74.9 % (50-70); VBG PH 7.33 mmol/L (7.31-7.41); VBG PO2 38.5 mmol/L (28-40); VBG Total CO2 36.3 mmol/L (23-27)
[2024-11-09 14:46] LABS: Albumin Level 3.9 g/dl (3.5-5.0); Chloride 98 mmol/L (98-107); Sodium 138 mmol/L (136-145)
[2024-11-09 14:47] LABS: Potassium 3.6 mmoL/L (3.5-5.1)
[2024-11-09 14:48] LABS: VBG PCO2 66.7 mmol/L (35-51)
[2024-11-09 14:49] LABS: Alanine Aminotransferase 13 U/L (12-78); Albumin/Globulin Ratio 1.4 (1.1-1.8); Alkaline Phosphatase 59 U/L (38-126); Anion Gap 5.6 mEq/L (5-15); Aspartate Amino Transferase 22 U/L (14-36); Bilirubin,Total 0.2 mg/dl (0.2-1.3); Blood Urea Nitrogen 12 mg/dl (7-17); Calcium 9.8 mg/dl (8.4-10.2); Carbon Dioxide 38 mmol/L (22.0-30.0); Cholesterol 156 mg/dl (140-200); Creatinine Clearance Estimated 45 mL/min (50-200); Estimated Glomerular Filt Rate 62 ml/min (>60); GFR (African American) 75 ML/MIN (>60); Globulin 2.7 g/dL (1.3-3.2); Glucose 111 mg/dl (74-100); Total Protein,Serum 6.6 g/dl (6.3-8.2); Triglycerides 118 mg/dl (30-150); VLDL Cholesterol 24 mg/dL (0-40)
[2024-11-09 14:50] LABS: Chol/HDL Ratio 1.9 (1-3.5); HDL Cholesterol 84 mg/dl (40-60)
[2024-11-09 14:51] LABS: Activated Partial Thrombo Time 26.4 seconds (22.8-30.6); INR 0.87 (0.9-1.1); Prothrombin Time 9.9 seconds (10.1-12.5)
[2024-11-09 14:59] LABS: Magnesium 1.5 mg/dl (1.6-2.3)
[2024-11-09 15:00] LABS: Direct LDL Cholesterol 41.55 mg/dL (100-129)
[2024-11-09 15:01] LABS: NT Pro Brain Natriuretic Pep. 2290 pg/mL (0-125)
[2024-11-09 15:03] LABS: Troponin I 0.04 ng/ml (0.00-0.034)
[2024-11-09] MEDS: IOPAMIDOL-370 (76%);100ML BOTTLE 70 ML IV (15:09)
[2024-11-09] MEDS: 0.9 % SODIUM CHLORIDE 50 ML VIAL IV (15:09)
[2024-11-09] MEDS: SODIUM CHLORIDE 0.9% 10ML SYR (RAD ONLY) 10 ML IV (15:09)
[2024-11-09 15:14] LABS: D-Dimer 0.92 ug/mL (0.0-0.5)
[2024-11-09 16:16] LABS: Microscopic, Urine URINE MICROSCOPIC (MICROSCOPIC)
[2024-11-09 16:23] LABS: Appearance,Urine CLEAR (Clear); Bilirubin,Urine Negative (Negative); Blood, Urine Negative (Negative); Color,Urine YELLOW (Yellow); Glucose,Urine (UA) Negative (Negative); Ketones,Urine Negative (Negative); Leukocyte Esterase,Urine Negative (Negative); Nitrate,Urine Negative (Negative); Protein,Urine Negative (Negative); Urobilinogen,Urine 0.2 EU/dl (0.2)
[2024-11-09 16:33] LABS: Barbiturates Screen,Urine Negative ng/ml (<200)
[2024-11-09 16:34] LABS: Benzodiazepines Screen,Urine Positive ng/ml (<200)
[2024-11-09 16:35] LABS: Amphetamine/Metha Screen,Urine Negative ng/ml (<1000); Cocaine Screen,Urine Negative ng/ml (<300)
[2024-11-09 16:36] LABS: Methadone Screen,Urine Negative ng/ml (<300)
[2024-11-09 16:37] LABS: Cannabinoid Screen,Urine Negative ng/ml (<50); Opiate Screen,Urine Positive ng/ml (<300)
[2024-11-09 16:38] LABS: Phencyclidine Screen,Urine Negative ng/ml (<25)
[2024-11-09 16:41] LABS: RBC,Urine Occasional #/hpf (0-3)
[2024-11-09 16:46] LABS: Troponin I 0.04 ng/ml (0.00-0.034)
[2024-11-09] MEDS: FUROSEMIDE 40MG/4ML VIAL 40 MG IV (16:57)
[2024-11-09] MEDS: FLUTICASONE/UMECLIDIN/VILANTER 100/62.5/25MCG INHALER 1 PUFF IH (18:15)
--- NOTE | 2024-11-09 18:34 | P.CONS_ITS ---
[facility] Disclaimer: The information contained in this section may have been updated after the patient was seen, as this information can be updated by other users. Medical History Sepsis without septic shock Lymphedema Physical deconditioning General weakness Lung mass Hypomagnesemia Acute hypokalemia Chronic hyponatremia Generalized weakness COPD mixed type Lung nodule Hypokalemia Elevated troponin COPD (chronic obstructive pulmonary disease) Nocturnal hypoxemia Pulmonary emphysema Incidental pulmonary nodule, greater than or equal to 8mm Smoking greater than 30 pack years Dyspnea on exertion Tobacco abuse disorder Tobacco abuse counseling COPD (chronic obstructive pulmonary disease) Cervical cancer Surgical History History of dilation and curettage History of back surgery Family History Other Diabetes Social History Smoking Status: Never smoker second hand exposure: Yes alcohol intake: current alcohol intake frequency: 0-2 drinks per day current occupational status: unemployed Travel in the last 8 weeks?: None household members: spouse housing: house current occupational exposures/hazards: No Have you lived/traveled outside [place] in past 30 days?: No Contact w/someone who lives/traveled outside [place] past 30 days?: No Exposure to someone with infectious disease in past 14 days?: No Do you have a fever (greater than 100.4 F or 38 C)?: No Have you tested positive for COVID-19?: No Exposed to someone with COVID-19 in past 14 days?: No Do you have a sore throat?: No Do you have a cough?: No Do you have any weakness?: No Do you have any diarrhea?: No Are you experiencing any unusual bleeding?: No Do you have any muscle aches/pain?: No Do you have any abdominal pain?: No Are you experiencing loss of taste or smell?: No Exam Data for Last 24 hours Vital signs and Labs for Last 24 Hours: Temp Pulse Resp BP Pulse Ox O2 Del Method O2 Flow Rate 98.7 F 100 H 20 160/98 H 94 L Nasal Cannula 2 11/09/24 18:20 11/09/24 18:20 11/09/24 18:20 11/09/24 18:20 11/09/24 17:31 11/09/24 18:20 11/09/24 18:20 Laboratory Results - last 24 hr 11/09/24 14:20: WBC 11.0 H, RBC 4.17 L, Hgb 12.4, Hct 40.1, MCV 96.2, MCH 29.7, MCHC 30.9 L, RDW 14.6, Plt Count 285, MPV 8.8, Neut % (Auto) 66.3, Lymph % (Auto) 25.2, [place] % (Auto) 6.7, Eos % (Auto) 0.8, Baso % (Auto) 0.5, Neut # (Auto) 7.3, Lymph # (Auto) 2.8, [place] # (Auto) 0.7, Eos # (Auto) 0.1, Baso # (Auto) 0.1, PT 9.9 L, INR 0.87 L, APTT 26.4, D-Dimer 0.92 H, Sodium 138, Potassium 3.6, Chloride 98, Carbon Dioxide 38 H, Anion Gap 5.6, BUN 12, Creatinine 0.90, Estimated Creat Clear 45, Estimated GFR 62, Est GFR ( Amer) 75, Glucose 111 H, Calcium 9.8, Magnesium 1.5 L, Total Bilirubin 0.2, AST 22, ALT 13, Alkaline Phosphatase 59, Troponin I 0.04 H, NT-Pro-B Natriuret Pep 2290 H, Total Protein 6.6, Albumin 3.9, Globulin 2.7, Albumin/Globulin Ratio 1.4, Triglycerides 118, Cholesterol 156, LDL Cholesterol Direct 41.55 L, VLDL Cholesterol 24, HDL Cholesterol 84 H, Cholesterol/HDL Ratio 1.9 11/09/24 14:33: VBG pH 7.33, VBG pCO2 66.7 H, VBG pO2 38.5, VBG HCO3 34.2 H, VBG Total CO2 36.3 H, VBG O2 Saturation 74.9 H, VBG Base Excess 8.3 H, VBG Lactic Acid 1.5 11/09/24 16:11: Urine Color Yellow, Urine Appearance Clear, Urine pH 7.0, Ur Specific [place] 1.010, Urine Protein Negative, Urine Glucose (UA) Negative, Urine Ketones Negative, Urine Blood Negative, Urine Nitrate Negative, Urine Bilirubin Negative, Urine Urobilinogen 0.2, Ur Leukocyte Esterase Negative, Urine RBC Occasional, Urine WBC None, Ur Squamous Epith Cells None, Urine Bacteria None, Urine Opiates Screen Positive H, Urine Methadone Screen Negative, Ur Barbituates Screen Negative, Ur Phencyclidine Scrn Negative, Ur Amphetamines Screen Negative, U Benzodiazepines Scrn Positive H, Urine Cocaine Screen Negative, U Marijuana (THC) Screen Negative 11/09/24 16:17: Troponin I 0.04 H I & O for Last 24 hours: Intake & Output 11/06/24 11/07/24 11/08/24 11/09/24 23:59 23:59 23:59 23:59 Weight 53.524 kg Meds Home Medications and Allergies Home Medications ?Medication ?Instructions ?Recorded ?Confirmed ?Type ipratropium 0.5 mg-albuterol 3 mg 3 ml inhalation QIDP PRN Shortness 07/03/21 09/24/24 History (2.5 mg base)/3 mL nebulization Of Breath soln albuterol sulfate 90 mcg/actuation 2 inh inhalation NEEDED PRN 04/15/24 09/24/24 History aerosol inhaler shortness of air alprazolam 1 mg tablet 1 mg PO BID 04/15/24 09/24/24 History calcium 600 mg (as 1 tab PO BIDWMEAL 04/15/24 09/24/24 History carbonate)-vitamin D3 5 mcg (200 unit) tablet celecoxib 50 mg capsule 50 mg PO DAILY 04/15/24 09/24/24 History cholecalciferol (vitamin D3) 1,250 1,250 mcg PO WEEKLY 04/15/24 09/24/24 History mcg (50,000 unit) capsule duloxetine 30 mg capsule,delayed 30 mg PO DAILY 04/15/24 09/24/24 History release gabapentin 800 mg tablet 800 mg PO TID 04/15/24 09/24/24 History hydrocodone 10 mg-acetaminophen 1 tab PO DAILY 04/15/24 09/24/24 History 325 mg tablet losartan 100 mg tablet 100 mg PO DAILY 04/15/24 09/24/24 History montelukast 10 mg tablet 10 mg PO PM 04/15/24 09/24/24 History potassium chloride 20 mEq 40 meq PO BID 04/15/24 09/24/24 History tablet,extended release(part/cryst) amlodipine 10 mg tablet 10 mg PO DAILY #30 tabs 04/16/24 09/24/24 Rx magnesium oxide 250 mg PO BID 07/29/24 09/24/24 History fluticasone fur. 100 mcg-umeclid 1 inh inhalation DAILY #60 ea 08/16/24 09/24/24 Rx 62.5 mcg-vilant 25 mcg inhalat.powder (Trelegy Ellipta) furosemide 40 mg tablet 40 mg PO DAILY 30 days #30 tabs 08/16/24 09/24/24 Rx linaclotide 145 mcg capsule 145 mcg PO DAILY 08/16/24 09/24/24 History (Linzess) doxycycline hyclate 100 mg capsule 100 mg PO BID infection 14 days 09/24/24 09/24/24 Rx #28 caps mupirocin 2 % topical ointment 1 applic topical BID infection 14 09/24/24 09/24/24 Rx days #22 grams New Prescriptions to Start Prescriptions: Allergies Allergy/AdvReac Type Severity Reaction Status Date / Time No Known Allergies Allergy Verified 09/24/24 15:16 Results Labs 11/09/24 14:20 11/09/24 14:20 Labs: Abnormal lab results 11/09/24 11/09/24 11/09/24 Range/Units 14:20 14:33 16:11 WBC 11.0 H (4.8-10.8) K/mm3 RBC 4.17 L (4.20-5.40) M/mm3 MCHC 30.9 L (31.8-35.4) g/dL PT 9.9 L (10.1-12.5) seconds INR 0.87 L (0.9-1.1) D-Dimer 0.92 H (0.0-0.5) ug/mL VBG pCO2 66.7 H (35-51) mmol/L VBG HCO3 34.2 H (23-30) mmol/L VBG Total CO2 36.3 H (23-27) mmol/L VBG O2 Saturation 74.9 H (50-70) % VBG Base Excess 8.3 H (-2.4-2.3) mmol/L Carbon Dioxide 38 H (22.0-30.0) mmol/L Glucose 111 H (74-100) mg/dl Magnesium 1.5 L (1.6-2.3) mg/dl Troponin I 0.04 H (0.00-0.034) ng/ml NT-Pro-B Natriuret Pep 2290 H (0-125) pg/mL LDL Cholesterol Direct 41.55 L (100-129) mg/dL HDL Cholesterol 84 H (40-60) mg/dl Urine Opiates Screen Positive H (<300) ng/ml U Benzodiazepines Scrn Positive H (<200) ng/ml 11/09/24 Range/Units 16:17 WBC (4.8-10.8) K/mm3 RBC (4.20-5.40) M/mm3 MCHC (31.8-35.4) g/dL PT (10.1-12.5) seconds INR (0.9-1.1) D-Dimer (0.0-0.5) ug/mL VBG pCO2 (35-51) mmol/L VBG HCO3 (23-30) mmol/L VBG Total CO2 (23-27) mmol/L VBG O2 Saturation (50-70) % VBG Base Excess (-2.4-2.3) mmol/L Carbon Dioxide (22.0-30.0) mmol/L Glucose (74-100) mg/dl Magnesium (1.6-2.3) mg/dl Troponin I 0.04 H (0.00-0.034) ng/ml NT-Pro-B Natriuret Pep (0-125) pg/mL LDL Cholesterol Direct (100-129) mg/dL HDL Cholesterol (40-60) mg/dl Urine Opiates Screen (<300) ng/ml U Benzodiazepines Scrn (<200) ng/ml H & H 11/09/24 Range/Units 14:20 Hgb 12.4 (12.2-16.2) g/dL Hct 40.1 (37.0-47.0) % Coagulation 11/09/24 Range/Units 14:20 INR 0.87 L (0.9-1.1) All other labs normal.
== END 2024-11-09 18:32 | disposition home or self-care (01) ==
PROVIDERS: Nurse Practitioner; Emergency Provider Student in an Organized Health Care Education/Training Program; PCP Nurse Practitioner
DX: R07.89 Other chest pain (principal); J44.1 Chronic obstructive pulmonary disease with (acute) exacerbation; R00.0 Tachycardia, unspecified; R53.1 Weakness; R91.8 Other nonspecific abnormal finding of lung field; F17.210 Nicotine dependence, cigarettes, uncomplicated
CPT/HCPCS: 71045; 71275; 80053; 80061; 80307; 81001; 82803; 83735; 83880; 84484; 85025; 85378; 85610; 85730; 93005; 96374; 96375; 99285; J1938; J2919; Q9967

== ENCOUNTER 2024-11-28 17:43 | Inpatient (IN) | payer MEDICARE, SELFPAY ==
[2024-11-28] VITALS (15 sets, daily range): BP systolic 106–152; BP diastolic 68–94; PULSE 56–112; RESP 15–26; TEMP 35.9–37; O2SAT 91–100; BMI 23.1; BMI 20.7
--- NOTE | 2024-11-28 17:48 | ECG_ITS ---
APPROVED REPORT Exam: Resting ECG HR:118 bpm ECG Measurements Heart Rate 118 AXES TX 128 P 78 QRSd 83 QRS -73 QT 307 T 74 QTc 377 Conclusion SINUS TACHYCARDIA WITH FREQUENT SUPRAVENTRICULAR PREMATURE COMPLEXES LEFT AXIS DEVIATION [QRS AXIS < -30] ANTEROSEPTAL MYOCARDIAL INFARCTION , OF INDETERMINATE AGE [40+ ms Q WAVE IN V1-V4] No STEMI Electronically signed by : YUVAL VARGAS, 11/29/2024 06:17:13
--- NOTE | 2024-11-28 17:54 | ED_ITS ---
Discharge Plan Disposition Chief Complaint: Weakness Discharge ED Provider: Rey Mccabe HPI General Chief Complaint: Weakness Stated Complaint: SOB Time Seen by Provider: 11/28/24 17:45 History of Present Illness HPI narrative: Patient is 69-year-old female past medical history of COPD on 1.5 L nasal cannula at night and intermittently through the day presents emergency department for evaluation of shortness of breath and weakness in the lower extremities. She gets around with a cane at baseline and is intermittently weak in her lower extremities but since she has had shortness of breath and cough it has become worse than normal over the last 48 hours. No chest pain. No trauma. No other acute complaints at this time. En route EMS gave methylprednisolone 125 and DuoNeb. Related Data Home Medications ?Medication ?Instructions ?Recorded ?Confirmed ipratropium 0.5 mg-albuterol 3 mg 3 ml inhalation QIDP PRN Shortness 07/03/21 11/17/24 (2.5 mg base)/3 mL nebulization Of Breath soln albuterol sulfate 90 mcg/actuation 2 inh inhalation NEEDED PRN 04/15/24 11/17/24 aerosol inhaler shortness of air alprazolam 1 mg tablet 1 mg PO BID 04/15/24 11/17/24 calcium 600 mg (as 1 tab PO BIDWMEAL 04/15/24 11/17/24 carbonate)-vitamin D3 5 mcg (200 unit) tablet celecoxib 50 mg capsule 50 mg PO DAILY 04/15/24 11/17/24 cholecalciferol (vitamin D3) 1,250 1,250 mcg PO WEEKLY 04/15/24 11/17/24 mcg (50,000 unit) capsule duloxetine 30 mg capsule,delayed 30 mg PO DAILY 04/15/24 11/17/24 release gabapentin 800 mg tablet 800 mg PO TID 04/15/24 11/17/24 hydrocodone 10 mg-acetaminophen 1 tab PO DAILY 04/15/24 11/17/24 325 mg tablet losartan 100 mg tablet 100 mg PO DAILY 04/15/24 11/17/24 montelukast 10 mg tablet 10 mg PO PM 04/15/24 11/17/24 potassium chloride 20 mEq 40 meq PO BID 04/15/24 11/17/24 tablet,extended release(part/cryst) magnesium oxide 250 mg PO BID 07/29/24 11/17/24 linaclotide 145 mcg capsule 145 mcg PO DAILY 08/16/24 11/17/24 (Linzess) Previous Rx's ?Medication ?Instructions ?Recorded amlodipine 10 mg tablet 10 mg PO DAILY #30 tabs 04/16/24 fluticasone fur. 100 mcg-umeclid 1 inh inhalation DAILY #60 ea 08/16/24 62.5 mcg-vilant 25 mcg inhalat.powder (Trelegy Ellipta) furosemide 40 mg tablet 40 mg PO DAILY 30 days #30 tabs 08/16/24 doxycycline hyclate 100 mg capsule 100 mg PO BID infection 14 days 09/24/24 #28 caps mupirocin 2 % topical ointment 1 applic topical BID infection 14 09/24/24 days #22 grams Allergies Allergy/AdvReac Type Severity Reaction Status Date / Time No Known Allergies Allergy Verified 11/17/24 15:18 [facility] Disclaimer: The information contained in this section may have been updated after the patient was seen, as this information can be updated by other users. Medical History Fecal occult blood test positive Sepsis without septic shock Lymphedema Physical deconditioning General weakness Lung mass Hypomagnesemia Acute hypokalemia Chronic hyponatremia Generalized weakness COPD mixed type Lung nodule Hypokalemia Elevated troponin COPD (chronic obstructive pulmonary disease) Nocturnal hypoxemia Pulmonary emphysema Incidental pulmonary nodule, greater than or equal to 8mm Smoking greater than 30 pack years Dyspnea on exertion Tobacco abuse disorder Tobacco abuse counseling COPD (chronic obstructive pulmonary disease) Cervical cancer Surgical History History of dilation and curettage History of back surgery Family History Other Diabetes Social History Smoking Status: Current every day smoker tobacco type: cigarettes packs per day: 2 second hand exposure: Yes alcohol intake: current alcohol intake frequency: 0-2 drinks per day current occupational status: unemployed Travel in the last 8 weeks?: None household members: spouse housing: house current occupational exposures/hazards: No Have you lived/traveled outside US in past 30 days?: No Contact w/someone who lives/traveled outside US past 30 days?: No Exposure to someone with infectious disease in past 14 days?: No Do you have a fever (greater than 100.4 F or 38 C)?: No Have you tested positive for COVID-19?: No Exposed to someone with COVID-19 in past 14 days?: No Do you have a sore throat?: No Do you have a cough?: No Do you have any weakness?: No Do you have any diarrhea?: No Are you experiencing any unusual bleeding?: No Do you have any muscle aches/pain?: No Do you have any abdominal pain?: No Are you experiencing loss of taste or smell?: No Other Medical History Have you received the Flu Vaccine for this season: No Have you received the Pneumonia Vaccine: Yes ROS Obtained: Yes Systems reviewed as appropriate & no additional complaints except as documented Physical Exam General General appearance: alert and in no apparent distress Head Head exam: atraumatic and normocephalic Eye Eye exam: Present PERRL and EOMI ENT ENT exam: Present mucous membranes moist Neck Neck exam: Present normal inspection Chest Chest inspection: Present normal inspection and symmetric chest wall rise Respiratory Respiratory exam: Present respiratory distress, wheezes, prolonged expiratory phase and other (Severely diminished breath sounds all lung newman); Absent normal lung sounds bilaterally Cardiovascular Cardiovascular exam: Present normal rhythm and tachycardia Abdominal Exam Abdominal exam: Present soft; Absent tenderness Extremities Exam Extremities exam: Present normal inspection Neurological Exam Neurological exam: Present alert and oriented X3 Psychiatric Psychiatric exam: Present normal affect Skin Skin exam: Present warm and dry HEART Score HEART Score HEART Score assessment performed?: Yes History (anamnesis): Slightly suspicious ECG: Non-specific disturbance Age: >65 years Risk factors: 3 or more risk factors Troponin: </= normal limit HEART Score: 5 Critical Care Critical Care Time Critical Care Time: Yes Attestation: On 11/28/24, the high probability of a clinically significant, sudden or life threatening deterioration of the following system(s) required my full and direct attention, intervention and personal management. The time I documented below is in addition to time spent performing reported procedures but includes the following listed in this critical care notation. Total Time Total Critical Care Time: 45 Medical Decision Making Azael Inquiry Pt receiving controlled substance: No Vital Signs Vital Signs: 11/28/24 17:56 11/28/24 18:45 11/28/24 18:50 Temperature 98.6 F Temperature Source Oral Pulse Rate 98 H 109 H Pulse Rate [Right] 112 H Respiratory Rate 18 Blood Pressure Blood Pressure [Right Arm] 141/84 H Blood Pressure Mean [Right Arm] 103 Blood Pressure Source [Right Arm] Automatic Cuff Blood Pressure Position [Right Arm] Sitting 02 Sat by Pulse Oximetry 100 Oxygen Delivery Method Room Air 11/28/24 19:01 11/28/24 19:30 11/28/24 20:01 Temperature Temperature Source Pulse Rate 103 H 105 H 103 H Pulse Rate [Right] Respiratory Rate 20 20 16 Blood Pressure 144/94 H 135/76 119/68 Blood Pressure [Right Arm] Blood Pressure Mean [Right Arm] Blood Pressure Source [Right Arm] Blood Pressure Position [Right Arm] 02 Sat by Pulse Oximetry 99 100 96 Oxygen Delivery Method 11/28/24 20:30 11/28/24 21:00 11/28/24 21:30 Temperature Temperature Source Pulse Rate 99 H 95 H 56 L Pulse Rate [Right] Respiratory Rate 19 20 15 Blood Pressure 112/71 117/71 141/73 H Blood Pressure [Right Arm] Blood Pressure Mean [Right Arm] Blood Pressure Source [Right Arm] Blood Pressure Position [Right Arm] 02 Sat by Pulse Oximetry 96 98 97 Oxygen Delivery Method Lab Data Labs: Lab Results 11/28/24 17:30: SARS-CoV-2 (PCR) Not detected, Influenza A Untype (PCR) Not detected, Influenza Type B (PCR) Not detected 11/28/24 17:50: WBC 11.4 H, RBC 4.61, Hgb 13.8, Hct 44.9, MCV 97.4, MCH 29.9, M CHC 30.7 L, RDW 14.3, Plt Count 288, MPV 9.4, Neut % (Auto) 67.0, Lymph % (Auto) 25.1, [place] % (Auto) 5.2, Eos % (Auto) 1.8, Baso % (Auto) 0.6, Neut # (Auto) 7.6, Lymph # (Auto) 2.9, [place] # (Auto) 0.6, Eos # (Auto) 0.2, Baso # (Auto) 0.1, Sodium 137, Potassium 4.8, Chloride 100, Carbon Dioxide 34 H, Anion Gap 7.8, BUN 19 H, Creatinine 1.20 H, Estimated Creat Clear 43, Estimated GFR 45 L, Est GFR ( Amer) 54 L, Glucose 163 H, Calcium 11.7 H, Total Bilirubin 0.2, AST 29, ALT 15, Alkaline Phosphatase 63, Troponin I 0.03, Total Protein 6.7, Albumin 3.9, Globulin 2.8, Albumin/Globulin Ratio 1.4 11/28/24 17:55: VBG pH 7.28 L, VBG pCO2 66.2 H, VBG pO2 43.4 H, VBG HCO3 30.3 H, VBG Total CO2 32.3 H, VBG O2 Saturation 75.3 H, VBG Base Excess 3.5 H, VBG Lactic Acid 2.4 H 11/28/24 17:50 11/28/24 17:50 Response Orders (Tests/Meds): ED MEDICATIONS Generic Name Dose Route Start Last Admin Trade Name Freq PRN Reason Stop Dose Admin Acetaminophen 650 mg 11/28/24 20:32 Acetaminophen 325mg Tab PO 12/28/24 20:31 Q4HP PRN Fever or Mild Pain (1-3) Albuterol/Ipratropium 3 ml 11/28/24 22:00 Ipratropium/Albuterol 3 Ml Neb IH 12/28/24 21:59 Q4RT VICENTE Azithromycin 500 mg/ Sodium 250 mls @ 250 mls/hr 11/29/24 22:00 Chloride IV 12/09/24 21:59 Q24H VICENTE Methylprednisolone Sodium Succinate 60 mg 11/28/24 19:00 11/28/24 19:27 Methylprednisolone Sod Succ 125mg Vial IV 12/28/24 18:59 60 mg Q12H VICENTE Administration Discontinued Medications Generic Name Dose Route Start Last Admin Trade Name Freq PRN Reason Stop Dose Admin Albuterol/Ipratropium 9 ml 11/28/24 18:03 11/28/24 18:15 Ipratropium/Albuterol 3 Ml Neb IH 11/28/24 18:04 9 ml ONCE ONE Administration Magnesium Sulfate 2 gm in 50 mls @ 50 mls/hr 11/28/24 18:03 11/28/24 18:15 Magnesium Sulfate 2gm/50ml Premix IV 11/28/24 19:02 50 mls/hr ONCE ONE Administration Azithromycin 500 mg/ Sodium 250 mls @ 250 mls/hr 11/28/24 18:47 11/28/24 19:01 Chloride IV 11/28/24 18:48 250 mls/hr ONCE ONE Administration ORDERS Category Date Time Status Pulmonology Consult [Consult to Pulmonology] [CONS] Cons 11/28/24 18:50 Active Routine CXR --portable [XR chest portable] Stat Exams 11/28/24 18:02 Completed CBC w/Auto Diff [Complete Blood Count Auto Diff] Stat Lab 11/28/24 17:50 Completed CMP [Comprehensive Metabolic Panel] Stat Lab 11/28/24 17:50 Completed Complete Blood Count Auto Diff AMLAB Lab 11/29/24 06:00 Ordered Comprehensive Metabolic Panel AMLAB Lab 11/29/24 06:00 Ordered Magnesium AMLAB Lab 11/29/24 06:00 Ordered Procalcitonin Routine Lab 11/28/24 22:00 Ordered Rapid PCR Covid and Flu A/B Stat Lab 11/28/24 17:30 Completed Trop I [Troponin I] Stat Lab 11/28/24 17:50 Completed Troponin I Q3H Lab 11/28/24 21:15 Ordered Troponin I Q3H Lab 11/29/24 00:15 Ordered VBG [Venous Blood Gas] Stat RT 11/28/24 22:00 Ordered Venous Blood Gas Routine RT 11/28/24 17:55 Completed ECG Data Tracing #1: ECG Narrative: Independently interpreted by me rate is 118, rhythm is irregular, sinus arrhythmia, no ST elevation in anatomical contiguous leads, QTc 377. MDM Narrative Medical Decision Narrative: In summary patient is 69-year-old female with past medical history described above presents emergency department for evaluation of shortness of breath bilateral lower extremity weakness. Patient is hemodynamically stable nontoxic- appearing upon arrival severe bronchoconstriction and difficulty moving air upon arrival but protecting her airway. Patient has been given methylprednisolone and 1 DuoNeb prior to arrival. 3 DuoNebs will be given as well as IV magnesium sulfate. Workup will be conducted with hematologic labs chest x-ray VBG is differential includes pneumonia versus viral COPD exacerbation. She has symmetric 5 out of 5 strength in her lower extremities and appears perfused no concern for dissection or acute limb ischemia at this time I suspect patient just has weakness in the setting of her upper respiratory infection and possible CO2 narcosis. Initial workup reviewed by me leukocytosis 11.4 no anemia hypercarbic acidosis for which patient will be placed on BiPAP. No JOSÉ MIGUEL per rifle criteria although her creatinine is elevated at 1.2 no critical electrolyte abnormality. Calcium is mildly elevated at 11.7 initial troponin 0.03 within normal limits. Patient appears well-perfused therefore sepsis bolus fluids was considered will be deferred at this time. Upon repeat evaluation patient had persistent wheezing for which patient will be given continuous albuterol through her BiPAP circuit. The case was discussed with hospital medicine regarding care and they will meet the patient to their service for continued evaluation at this time.
[2024-11-28 17:57] LABS: VBG Base Excess 3.5 mmol/L (-2.4-2.3); VBG HCO3 30.3 mmol/L (23-30); VBG Oxygen Saturation 75.3 % (50-70); VBG PH 7.28 mmol/L (7.31-7.41); VBG PO2 43.4 mmol/L (28-40); VBG Total CO2 32.3 mmol/L (23-27)
[2024-11-28 17:58] LABS: Lactate Venous 2.4 mmol/L (0.4-2.0); VBG PCO2 66.2 mmol/L (35-51)
--- NOTE | 2024-11-28 18:02 | XR_ITS ---
PROCEDURE INFORMATION: Exam: XR Chest Exam date and time: 11/28/2024 6:12 PM Age: 69 years old Clinical indication: Shortness of breath; Additional info: SOB cough TECHNIQUE: Imaging protocol: Radiologic exam of the chest. Views: 1 view. COMPARISON: CR XR CHEST PORTABLE 11/09/2024 3:13 PM FINDINGS: Lungs: Unremarkable. No consolidation. Pleural spaces: Unremarkable. No pleural effusion. No pneumothorax. Heart/Mediastinum: Unremarkable. No cardiomegaly. Bones/joints: Unremarkable. IMPRESSION: No acute findings. No infiltration identified.
[2024-11-28 18:07] LABS: Basophils # 0.1 K/mm3 (0-0.2); Basophils % 0.6 % (0.1-2.0); Eosinophils # 0.2 Kmm3 (0.0-0.4); Eosinophils % 1.8 % (0.1-12.0); Hematocrit 44.9 % (37.0-47.0); Hemoglobin 13.8 g/dL (12.2-16.2); Immature Granulocytes # 0.03 10^3uL; Immature Granulocytes % 0.3 %; Lymphocytes # 2.9 K/mm3 (0.7-4.5); Lymphocytes % 25.1 % (10-50); Mean Corpuscular HGB Conc 30.7 g/dL (31.8-35.4); Mean Corpuscular Hemoglobin 29.9 pg (27.0-31.2); Mean Corpuscular Volume 97.4 fl (81-99); Mean Platelet Volume 9.4 fl (7.4-10.4); Monocytes # 0.6 K/mm3 (0.1-1.0); Monocytes % 5.2 % (1.7-9.3); Neutrophils # 7.6 K/mm3 (1.8-7.8); Nucleated Red Blood Cells # 0 10^3/uL; Nucleated Red Blood Cells % 0 %; Platelet Count 288 K/mm3 (142-424); Red Blood Count 4.61 M/mm3 (4.20-5.40); Red Cell Distribution Width 14.3 % (11.5-17.5); Red Cell Distribution Width-SD 51.7 fL; White Blood Count 11.4 K/mm3 (4.8-10.8)
[2024-11-28 18:09] LABS: Coronavirus 19, PCR Not Detected (NotDetected); Influenza A, PCR Not Detected (NotDetected); Influenza B, PCR Not Detected (NotDetected)
[2024-11-28 18:14] LABS: Albumin Level 3.9 g/dl (3.5-5.0); Chloride 100 mmol/L (98-107)
[2024-11-28 18:15] LABS: Potassium 4.8 mmoL/L (3.5-5.1); Sodium 137 mmol/L (136-145)
[2024-11-28] MEDS: IPRATROPIUM/ALBUTEROL 3 ML NEB 9 ML IH (18:15)
[2024-11-28] MEDS: MAGNESIUM SULFATE IN WATER 2 GM/50 ML PIGGYBACK IV (18:15)
[2024-11-28 18:17] LABS: Blood Urea Nitrogen 19 mg/dl (7-17); Creatinine Clearance Estimated 43 mL/min (50-200); Estimated Glomerular Filt Rate 45 ml/min (>60); GFR (African American) 54 ML/MIN (>60)
[2024-11-28 18:18] LABS: Alanine Aminotransferase 15 U/L (12-78); Albumin/Globulin Ratio 1.4 (1.1-1.8); Alkaline Phosphatase 63 U/L (38-126); Anion Gap 7.8 mEq/L (5-15); Aspartate Amino Transferase 29 U/L (14-36); Bilirubin,Total 0.2 mg/dl (0.2-1.3); Calcium 11.7 mg/dl (8.4-10.2); Carbon Dioxide 34 mmol/L (22.0-30.0); Globulin 2.8 g/dL (1.3-3.2); Glucose 163 mg/dl (74-100); Total Protein,Serum 6.7 g/dl (6.3-8.2)
[2024-11-28 18:29] LABS: Troponin I 0.03 ng/ml (0.00-0.034)
[2024-11-28] MEDS: AZITHROMYCIN 500 MG in 0.9 % SODIUM CHLORIDE 250 ML 250 MG IV (19:01)
[2024-11-28] MEDS: METHYLPREDNISOLONE SOD SUCC 125MG VIAL 60 MG IV (19:27)
--- NOTE | 2024-11-28 20:39 | PC.NURSE ---
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
--- NOTE | 2024-11-28 20:51 | PC.NURSE ---
This RN attempts report, RN unavailable at this time. Pending return call [phone] Estelle ESPINOZA to bedside to talk with family
--- NOTE | 2024-11-28 21:18 | PC.NURSE ---
report called to elan MARTI, pending transport
--- NOTE | 2024-11-28 21:28 | PC.NURSE ---
Rea RN receives phone call and is notified that room assignment will change
[2024-11-28 21:55] LABS: Reflex Lactic Add Lactic Reflex
[2024-11-28 22:00] LABS: VBG Base Excess 1.2 mmol/L (-2.4-2.3); VBG HCO3 27.9 mmol/L (23-30); VBG Oxygen Saturation 64.2 % (50-70); VBG PH 7.28 mmol/L (7.31-7.41); VBG PO2 35.8 mmol/L (28-40); VBG Total CO2 29.8 mmol/L (23-27)
[2024-11-28 22:03] LABS: Lactate Venous 2.2 mmol/L (0.4-2.0); VBG PCO2 60.4 mmol/L (35-51)
[2024-11-28] MEDS: IPRATROPIUM/ALBUTEROL 3 ML NEB IH (22:10)
[2024-11-28 22:26] LABS: Troponin I 0.02 ng/ml (0.00-0.034)
[2024-11-28 22:32] LABS: Lactic Acid Follow Up (RFLX 1) 1.8 mmol/L (0.7-2.1)
--- NOTE | 2024-11-28 22:34 | P.HP_ITS ---
<Statement entered by Teja Blair MD - 11/29/24 10:59> Rounded on patient after nurse practitioner. Personally examined and interviewed patient. Agree with exam findings and care plan as documented. History of Present Illness *Admission Date: 11/28/24 *Reason for visit:: Shortness of breath *History of present illness: This is a 69-year-old female with past medical history of COPD, chronic respiratory failure on 2 L nasal cannula at night and as needed who presents emergency department today with complaints of shortness of breath and lower extremity weakness. She reports symptoms have been progressing over the last 48 hours. She denies any chest pain. Denies any fever. Denies any cough or congestion. Of note, she did see podiatry 2 weeks ago for foot pain. Was found to have small fracture of her left foot with poor peripheral blood flow. On arrival to the emergency department she was noted to have significant respiratory distress with bronchoconstriction and significant wheezing. She received multiple DuoNebs magnesium and Solu-Medrol with mild improvement in symptoms. Labs obtained and notable for hypercapnic respiratory failure requiring BiPAP placement. Given the above-mentioned symptoms she is admitted to hospital service [facility] Disclaimer: The information contained in this section may have been updated after the patient was seen, as this information can be updated by other users. Medical History Fecal occult blood test positive Sepsis without septic shock Lymphedema Physical deconditioning General weakness Lung mass Hypomagnesemia Acute hypokalemia Chronic hyponatremia Generalized weakness COPD mixed type Lung nodule Hypokalemia Elevated troponin COPD (chronic obstructive pulmonary disease) Nocturnal hypoxemia Pulmonary emphysema Incidental pulmonary nodule, greater than or equal to 8mm Smoking greater than 30 pack years Dyspnea on exertion Tobacco abuse disorder Tobacco abuse counseling COPD (chronic obstructive pulmonary disease) Cervical cancer Surgical History History of dilation and curettage History of back surgery Family History Other Diabetes Social History (Updated 11/28/24 @ 22:31 by Denise Sagastume RN) Smoking Status: Current every day smoker tobacco type: cigarettes packs per day: 2 second hand exposure: Yes alcohol intake: current alcohol intake frequency: 0-2 drinks per day current occupational status: unemployed Travel in the last 8 weeks?: None household members: spouse housing: house current occupational exposures/hazards: No Have you lived/traveled outside US in past 30 days?: No Contact w/someone who lives/traveled outside US past 30 days?: No Exposure to someone with infectious disease in past 14 days?: No Do you have a fever (greater than 100.4 F or 38 C)?: No Have you tested positive for COVID-19?: No Exposed to someone with COVID-19 in past 14 days?: No Do you have a sore throat?: No Do you have a cough?: No Do you have any weakness?: No Are you experiencing any nausea/vomitting?: No Do you have any diarrhea?: No Are you experiencing any unusual bleeding?: No Do you have any muscle aches/pain?: No Do you have any abdominal pain?: No Are you experiencing loss of taste or smell?: No Other Medical History Have you received the Flu Vaccine for this season: No Have you received the Pneumonia Vaccine: Yes Review of Systems Review of Systems Review of systems:: pertinent systems reviewed and negative unless documented below Review of systems (narrative): Negative except for HPI Meds Home Medications and Allergies Home Medications ?Medication ?Instructions ?Recorded ?Confirmed ?Type ipratropium 0.5 mg-albuterol 3 mg 3 ml inhalation QIDP PRN Shortness 07/03/21 11/17/24 History (2.5 mg base)/3 mL nebulization Of Breath soln albuterol sulfate 90 mcg/actuation 2 inh inhalation NEEDED PRN 04/15/24 11/17/24 History aerosol inhaler shortness of air alprazolam 1 mg tablet 1 mg PO BID 04/15/24 11/17/24 History calcium 600 mg (as 1 tab PO BIDWMEAL 04/15/24 11/17/24 History carbonate)-vitamin D3 5 mcg (200 unit) tablet celecoxib 50 mg capsule 50 mg PO DAILY 04/15/24 11/17/24 History cholecalciferol (vitamin D3) 1,250 1,250 mcg PO WEEKLY 04/15/24 11/17/24 History mcg (50,000 unit) capsule duloxetine 30 mg capsule,delayed 30 mg PO DAILY 04/15/24 11/17/24 History release gabapentin 800 mg tablet 800 mg PO TID 04/15/24 11/17/24 History hydrocodone 10 mg-acetaminophen 1 tab PO DAILY 04/15/24 11/17/24 History 325 mg tablet losartan 100 mg tablet 100 mg PO DAILY 04/15/24 11/17/24 History montelukast 10 mg tablet 10 mg PO PM 04/15/24 11/17/24 History potassium chloride 20 mEq 40 meq PO BID 04/15/24 11/17/24 History tablet,extended release(part/cryst) amlodipine 10 mg tablet 10 mg PO DAILY #30 tabs 04/16/24 11/17/24 Rx magnesium oxide 250 mg PO BID 07/29/24 11/17/24 History fluticasone fur. 100 mcg-umeclid 1 inh inhalation DAILY #60 ea 08/16/24 11/17/24 Rx 62.5 mcg-vilant 25 mcg inhalat.powder (Trelegy Ellipta) furosemide 40 mg tablet 40 mg PO DAILY 30 days #30 tabs 08/16/24 11/17/24 Rx linaclotide 145 mcg capsule 145 mcg PO DAILY 08/16/24 11/17/24 History (Linzess) doxycycline hyclate 100 mg capsule 100 mg PO BID infection 14 days 09/24/24 11/17/24 Rx #28 caps mupirocin 2 % topical ointment 1 applic topical BID infection 14 09/24/24 11/17/24 Rx days #22 grams New Prescriptions to Start Prescriptions: Allergies Allergy/AdvReac Type Severity Reaction Status Date / Time No Known Allergies Allergy Verified 11/17/24 15:18 Exam Data for Last 24 hours Vital signs and Labs for Last 24 Hours: Temp Pulse Resp BP Pulse Ox O2 Del Method FiO2 98.5 F 102 H 20 152/74 H 97 BiPAP 35 11/28/24 21:57 11/28/24 22:11 11/28/24 21:57 11/28/24 21:57 11/28/24 21:30 11/28/24 22:11 11/28/24 22:11 Laboratory Results - last 24 hr 11/28/24 17:30: SARS-CoV-2 (PCR) Not detected, Influenza A Untype (PCR) Not detected, Influenza Type B (PCR) Not detected 11/28/24 17:50: WBC 11.4 H, RBC 4.61, Hgb 13.8, Hct 44.9, MCV 97.4, MCH 29.9, MCHC 30.7 L, RDW 14.3, Plt Count 288, MPV 9.4, Neut % (Auto) 67.0, Lymph % (Auto) 25.1, [place] % (Auto) 5.2, Eos % (Auto) 1.8, Baso % (Auto) 0.6, Neut # (Auto) 7.6, Lymph # (Auto) 2.9, [place] # (Auto) 0.6, Eos # (Auto) 0.2, Baso # (Auto) 0.1, Sodium 137, Potassium 4.8, Chloride 100, Carbon Dioxide 34 H, Anion Gap 7.8, BUN 19 H, Creatinine 1.20 H, Estimated Creat Clear 43, Estimated GFR 45 L, Est GFR ( Amer) 54 L, Glucose 163 H, Calcium 11.7 H, Total Bilirubin 0.2, AST 29, ALT 15, Alkaline Phosphatase 63, Troponin I 0.03, Total Protein 6.7, Albumin 3.9, Globulin 2.8, Albumin/Globulin Ratio 1.4 11/28/24 17:55: VBG pH 7.28 L, VBG pCO2 66.2 H, VBG pO2 43.4 H, VBG HCO3 30.3 H, VBG Total CO2 32.3 H, VBG O2 Saturation 75.3 H, VBG Base Excess 3.5 H, VBG Lactic Acid 2.4 H 11/28/24 21:54: Troponin I 0.02 11/28/24 22:00: VBG pH 7.28 L, VBG pCO2 60.4 H, VBG pO2 35.8, VBG HCO3 27.9, VBG Total CO2 29.8 H, VBG O2 Saturation 64.2, VBG Base Excess 1.2, VBG Lactic Acid 2.2 H 11/28/24 22:15: Lactate 1.8 I & O for Last 24 hours: Intake & Output 11/25/24 11/26/24 11/27/24 11/28/24 23:59 23:59 23:59 23:59 Weight 61.235 kg Constitutional Constitutional: no acute distress *Routine HEENT Exam Head: Present normocephalic Eye: Present EOMI and PERRL ENT: Present mucous membranes moist *Routine Neck Exam Neck: Present supple; Absent lymphadenopathy *Routine Respiratory Exam Respiratory: Present wheezes, diminished air movement and able to speak in complete sentences *Routine Cardiovascular Exam Cardiovascular: Present RRR *Routine Abdominal Exam Abdominal: Present soft and normoactive bowel sounds; Absent tenderness *Routine Rectal Exam Rectal:: deferred *Routine Genitalia Exam Genitalia:: deferred *Routine Extremities Exam Extremities: Absent cyanosis, clubbing or edema *Routine Skin Exam Skin: Present warm; Absent rash *Routine Neurological Exam Neurological: Present alert and oriented X3 Assessment and Plan *Assessment and plan (1) Acute exacerbation of chronic obstructive pulmonary disease: Status: Acute Category: Medical Code(s): J44.1 - Chronic obstructive pulmonary disease with (acute) exacerbation (2) Acute respiratory failure with hypoxia and hypercarbia: Status: Acute Category: Medical Code(s): J96.01 - Acute respiratory failure with hypoxia; J96.02 - Acute respiratory failure with hypercapnia (3) Peripheral vascular disease: Status: Acute Category: Medical Code(s): I73.9 - Peripheral vascular disease, unspecified Plan Admit to medicine #Acute exacerbation of chronic obstructive pulmonary disease #Acute on chronic respiratory failure with hypoxia and hypercarbia VBG with pH of 7.28 with a CO2 of 66. Repeat VBG with little improvement. Will have RT adjust settings Pulmonology consult in a.m. Bronchodilators and corticosteroids Wean oxygen as tolerated Continue azithromycin for COPD coverage #Peripheral vascular disease Sees podiatry. Had recent fracture of her left foot. Podiatry is following. Small wound to dorsum of left foot. Nickel sized with granulation tissue. Does not appear infected.
[2024-11-28 22:36] LABS: Procalcitonin 0.071 ng/mL (0.0-2.0)
[2024-11-29] VITALS (21 sets, daily range): BP systolic 118–170; BP diastolic 77–105; PULSE 97–126; RESP 16–25; TEMP 36.6–37; O2SAT 94–100; BMI 20.7
[2024-11-29 00:59] LABS: Troponin I 0.01 ng/ml (0.00-0.034)
[2024-11-29] MEDS: IPRATROPIUM/ALBUTEROL 3 ML NEB IH ×6 (01:54→21:49)
[2024-11-29] MEDS: AMLODIPINE 5MG TABLET 5 MG PO (04:55)
--- NOTE | 2024-11-29 05:32 | PC.NURSE ---
med rec partially completed using external medication record, patient and family member unsure of home medications
[2024-11-29 06:00] LABS: VBG Base Excess 0.6 mmol/L (-2.4-2.3); VBG HCO3 24.6 mmol/L (23-30); VBG Oxygen Saturation 89.9 % (50-70); VBG PCO2 36.1 mmol/L (35-51); VBG PH 7.45 mmol/L (7.31-7.41); VBG PO2 54.2 mmol/L (28-40); VBG Total CO2 25.7 mmol/L (23-27)
[2024-11-29 06:01] LABS: Lactate Venous 3.4 mmol/L (0.4-2.0)
[2024-11-29] MEDS: METHYLPREDNISOLONE SOD SUCC 125MG VIAL 60 MG IV ×2 (06:46→20:44)
[2024-11-29 07:35] LABS: Basophils % 0.3 % (0.1-2.0); Hematocrit 40.7 % (37.0-47.0); Hemoglobin 12.9 g/dL (12.2-16.2); Immature Granulocytes # 0.02 10^3uL; Immature Granulocytes % 0.3 %; Lymphocytes # 0.6 K/mm3 (0.7-4.5); Lymphocytes % 8.6 % (10-50); Mean Corpuscular HGB Conc 31.7 g/dL (31.8-35.4); Mean Corpuscular Hemoglobin 29.7 pg (27.0-31.2); Mean Corpuscular Volume 93.6 fl (81-99); Mean Platelet Volume 9.6 fl (7.4-10.4); Monocytes # 0.1 K/mm3 (0.1-1.0); Monocytes % 0.8 % (1.7-9.3); Neutrophils # 6.6 K/mm3 (1.8-7.8); Nucleated Red Blood Cells # 0 10^3/uL; Nucleated Red Blood Cells % 0 %; Platelet Count 236 K/mm3 (142-424); Red Blood Count 4.35 M/mm3 (4.20-5.40); Red Cell Distribution Width 13.9 % (11.5-17.5); Red Cell Distribution Width-SD 47.8 fL; White Blood Count 7.4 K/mm3 (4.8-10.8)
[2024-11-29 07:58] LABS: Chloride 103 mmol/L (98-107)
[2024-11-29 07:59] LABS: Albumin Level 3.9 g/dl (3.5-5.0); Potassium 5.2 mmoL/L (3.5-5.1); Sodium 133 mmol/L (136-145)
[2024-11-29 08:01] LABS: Alanine Aminotransferase 20 U/L (12-78); Albumin/Globulin Ratio 1.6 (1.1-1.8); Anion Gap 12.2 mEq/L (5-15); Aspartate Amino Transferase 76 U/L (14-36); Blood Urea Nitrogen 22 mg/dl (7-17); Carbon Dioxide 23 mmol/L (22.0-30.0); Creatinine Clearance Estimated 46 mL/min (50-200); Estimated Glomerular Filt Rate 71 ml/min (>60); GFR (African American) 86 ML/MIN (>60); Globulin 2.5 g/dL (1.3-3.2); Total Protein,Serum 6.4 g/dl (6.3-8.2)
[2024-11-29 08:02] LABS: Alkaline Phosphatase 102 U/L (38-126); Bilirubin,Total 1.2 mg/dl (0.2-1.3); Calcium 10.8 mg/dl (8.4-10.2); Glucose 148 mg/dl (74-100); Magnesium 1.8 mg/dl (1.6-2.3)
--- NOTE | 2024-11-29 09:38 | PC.NURSE ---
Pt. adjusted in bed and given some sip of ice water. Pt. has no complaints at this time. She is tolerating bi-pap well and resting comfortably.
[2024-11-29 10:02] LABS: Reflex Lactic Add Lactic Reflex
[2024-11-29 10:28] LABS: Lactic Acid Follow Up (RFLX 1) 2.1 mmol/L (0.7-2.1)
--- NOTE | 2024-11-29 10:52 | HMH.PHAINT1 ---
Pharmacy Intervention Comments: MEDICATION RECONCILIATION COMPLETE USING EXTERNAL PHARMACY FILL HISTORY, RECENT MD OFFICE VISIT NOTE AND MOST RECENT HOSPITAL DISCHARGE NOTE.
--- NOTE | 2024-11-29 11:47 | PC.NURSE ---
Called pts son to bring in home medication for pt.
--- NOTE | 2024-11-29 11:47 | PC.NURSE ---
Pt. transferred from [place] to [place] per MD.
[2024-11-29 12:18] LABS: Reflex Lactic (2 hrs) Add Lactic Reflex
[2024-11-29 12:43] LABS: Lactic Acid Follow up (RFLX 2) 1.2 mmol/L (0.7-2.1)
[2024-11-29] MEDS: GABAPENTIN 800MG TABLET 800 MG PO ×2 (13:53→20:44)
--- NOTE | 2024-11-29 15:55 | P.PN_ITS ---
Subjective *Date: 11/29/24 *Time: 17:15 Interval history: Responded well to BiPAP. Blood gas this morning improved to pH of 7.45. Transitioned to nasal cannula, current on 2 L. Doing well. Alert and oriented this morning. Denies chest pain. Continues to be somewhat wheezy. No nausea or vomiting. Medical Exam Vital signs and Labs for Last 24 Hours: Vital Signs Temp Pulse Pulse Resp BP BP Pulse Ox 11/29/24 13:22 94 L 11/29/24 13:22 109 H 11/29/24 13:22 110 H 11/29/24 12:00 98 F 107 H 16 168/89 H 95 11/29/24 11:00 11/29/24 10:27 108 H 11/29/24 10:27 112 H 11/29/24 10:00 99 H 22 159/89 H 96 11/29/24 09:00 11/29/24 08:00 100 H 11/29/24 08:00 97 H 24 170/105 H 95 11/29/24 08:00 11/29/24 07:00 11/29/24 06:00 97 H 16 162/95 H 100 11/29/24 05:52 101 H 11/29/24 05:52 104 H 11/29/24 05:52 96 11/29/24 05:50 11/29/24 05:00 11/29/24 04:00 100 H 11/29/24 04:00 100 H 16 161/91 H 95 11/29/24 03:00 11/29/24 02:10 11/29/24 02:09 99 H 11/29/24 02:09 98 H 11/29/24 02:00 11/29/24 02:00 106 H 18 121/86 94 L 11/29/24 01:00 11/29/24 00:00 100 H 11/29/24 00:00 110 H 18 154/78 H 95 11/29/24 00:00 98.5 F 110 H 153/93 H 95 11/28/24 23:00 11/28/24 22:30 107 H 18 106/71 L 91 L 11/28/24 22:20 100 H 11/28/24 22:18 107 H 91 L 11/28/24 22:11 102 H 11/28/24 22:11 106 H 11/28/24 22:11 11/28/24 22:11 11/28/24 22:00 96.6 F L 106 H 17 106/71 L 91 L 11/28/24 21:57 98.5 F 99 H 20 152/74 H 11/28/24 21:30 56 L 15 141/73 H 97 11/28/24 21:00 95 H 20 117/71 98 11/28/24 20:30 99 H 19 112/71 96 11/28/24 20:01 103 H 16 119/68 96 11/28/24 19:30 105 H 20 135/76 100 11/28/24 19:01 103 H 20 144/94 H 99 11/28/24 18:50 109 H 11/28/24 18:45 98 H 11/28/24 17:56 98.6 F 112 H 18 141/84 H 100 O2 Del Method O2 Flow Rate FiO2 11/29/24 13:22 Nasal Cannula 2 11/29/24 13:22 11/29/24 13:22 11/29/24 12:00 Nasal Cannula 11/29/24 11:00 Nasal Cannula 2 11/29/24 10:27 11/29/24 10:27 11/29/24 10:00 BiPAP 11/29/24 09:00 BiPAP 11/29/24 08:00 11/29/24 08:00 BiPAP 11/29/24 08:00 BiPAP 11/29/24 07:00 BiPAP 11/29/24 06:00 BiPAP 11/29/24 05:52 11/29/24 05:52 11/29/24 05:52 BiPAP 25 11/29/24 05:50 25 11/29/24 05:00 BiPAP 11/29/24 04:00 11/29/24 04:00 BiPAP 11/29/24 03:00 BiPAP 11/29/24 02:10 35 11/29/24 02:09 11/29/24 02:09 11/29/24 02:00 BiPAP 11/29/24 02:00 BiPAP 11/29/24 01:00 BiPAP 11/29/24 00:00 11/29/24 00:00 BiPAP 11/29/24 00:00 CPAP 11/28/24 23:00 BiPAP 11/28/24 22:30 BiPAP 11/28/24 22:20 11/28/24 22:18 BiPAP 11/28/24 22:11 11/28/24 22:11 11/28/24 22:11 35 11/28/24 22:11 BiPAP 35 11/28/24 22:00 CPAP 11/28/24 21:57 11/28/24 21:30 11/28/24 21:00 11/28/24 20:30 11/28/24 20:01 11/28/24 19:30 11/28/24 19:01 11/28/24 18:50 11/28/24 18:45 11/28/24 17:56 Room Air Intake and Output 11/28/24 11/29/24 11/29/24 23:59 07:59 15:59 Intake Total 120 / 170 50 / 170 Output Total 0 / 0 Balance 120 / 170 50 / 170 Intake: Intake, Oral Amount 120 / 170 50 / 170 Output: Output, Urine Amount 0 / 0 Other: Number of Unmeasured Voids 0 Weight 55.157 kg Laboratory Results - last 24 hr 11/28/24 17:30: SARS-CoV-2 (PCR) Not detected, Influenza A Untype (PCR) Not detected, Influenza Type B (PCR) Not detected 11/28/24 17:50: WBC 11.4 H, RBC 4.61, Hgb 13.8, Hct 44.9, MCV 97.4, MCH 29.9, MCHC 30.7 L, RDW 14.3, Plt Count 288, MPV 9.4, Neut % (Auto) 67.0, Lymph % (Auto) 25.1, Donley % (Auto) 5.2, Eos % (Auto) 1.8, Baso % (Auto) 0.6, Neut # (Auto) 7.6, Lymph # (Auto) 2.9, Donley # (Auto) 0.6, Eos # (Auto) 0.2, Baso # (Auto) 0.1, Sodium 137, Potassium 4.8, Chloride 100, Carbon Dioxide 34 H, Anion Gap 7.8, BUN 19 H, Creatinine 1.20 H, Estimated Creat Clear 43, Estimated GFR 45 L, Est GFR ( Amer) 54 L, Glucose 163 H, Calcium 11.7 H, Total Bilirubin 0.2, AST 29, ALT 15, Alkaline Phosphatase 63, Troponin I 0.03, Total Protein 6.7, Albumin 3.9, Globulin 2.8, Albumin/Globulin Ratio 1.4 11/28/24 17:55: VBG pH 7.28 L, VBG pCO2 66.2 H, VBG pO2 43.4 H, VBG HCO3 30.3 H, VBG Total CO2 32.3 H, VBG O2 Saturation 75.3 H, VBG Base Excess 3.5 H, VBG Lactic Acid 2.4 H 11/28/24 21:54: Troponin I 0.02, Procalcitonin 0.071 11/28/24 22:00: VBG pH 7.28 L, VBG pCO2 60.4 H, VBG pO2 35.8, VBG HCO3 27.9, VBG Total CO2 29.8 H, VBG O2 Saturation 64.2, VBG Base Excess 1.2, VBG Lactic Acid 2.2 H 11/28/24 22:15: Lactate 1.8 11/29/24 00:29: Troponin I 0.01 11/29/24 05:58: VBG pH 7.45 H, VBG pCO2 36.1, VBG pO2 54.2 H, VBG HCO3 24.6, VBG Total CO2 25.7, VBG O2 Saturation 89.9 H, VBG Base Excess 0.6, VBG Lactic Acid 3.4 H 11/29/24 06:40: WBC 7.4 D, RBC 4.35, Hgb 12.9, Hct 40.7, MCV 93.6, MCH 29.7, MCHC 31.7 L, RDW 13.9, Plt Count 236, MPV 9.6, Neut % (Auto) 90.0 H, Lymph % (Auto) 8.6 L, Donley % (Auto) 0.8 L, Eos % (Auto) 0.0 L, Baso % (Auto) 0.3, Neut # (Auto) 6.6, Lymph # (Auto) 0.6 L, Donley # (Auto) 0.1, Eos # (Auto) 0.0, Baso # (Auto) 0.0, Sodium 133 L, Potassium 5.2 H, Chloride 103, Carbon Dioxide 23, Anion Gap 12.2, BUN 22 H, Creatinine 0.80 D, Estimated Creat Clear 46, Estimated GFR 71, Est GFR ( Amer) 86 D, Glucose 148 H, Calcium 10.8 H, Magnesium 1.8, Total Bilirubin 1.2, AST 76 H D, ALT 20 D, Alkaline Phosphatase 102, Total Protein 6.4, Albumin 3.9, Globulin 2.5, Albumin/Globulin Ratio 1.6 11/29/24 10:15: Lactate 2.1 11/29/24 12:25: Lactate 1.2 Vital Signs Temp Pulse Pulse Resp BP BP Pulse Ox 10/26/22 12:00 87 10/26/22 11:32 98.2 F 84 18 161/93 H 92 L 10/26/22 11:27 77 10/26/22 11:27 85 10/26/22 08:00 97.8 F 87 22 187/104 H 91 L 10/26/22 06:10 91 L 10/26/22 06:10 85 10/26/22 06:10 86 10/26/22 04:00 97.9 F 87 16 144/88 H 90 L 10/26/22 04:18 84 10/26/22 00:00 92 L 10/26/22 00:00 97.9 F 74 16 150/72 H 92 L 10/26/22 00:00 90 10/25/22 20:25 86 10/25/22 20:00 92 L 10/25/22 23:02 83 10/25/22 23:02 83 10/25/22 20:00 97.9 F 76 16 154/81 H 92 L 10/25/22 18:46 83 10/25/22 18:46 83 10/25/22 18:46 91 L 10/25/22 17:51 98.3 F 80 18 181/93 H 94 L 10/25/22 17:28 98.3 F 84 15 179/99 H 10/25/22 16:30 85 185/102 H 95 10/25/22 16:00 83 166/97 H 94 L 10/25/22 15:30 84 174/95 H 94 L 10/25/22 15:00 82 180/95 H 93 L 10/25/22 14:30 83 164/95 H 97 10/25/22 14:00 83 161/89 H 94 L Intake and Output 0410/26/22 10/26/22 23:59 07:59 15:59 Intake Total 1000 / 1100 100 / 340 240 / 340 Output Total 1750 / 1750 200 / 200 Balance -750 / -650 -100 / 140 240 / 140 Intake: Intake, Oral Amount 240 / 240 Intake, Total IV Amount 1000 / 1100 100 / 100 KCl 10mEq/100ml 100 ml @ 100 100 / 100 mls/hr IV ONCE ONE Rx#:[id number] Output: Output, Urine Amount 1750 / 1750 200 / 200 Other: Number of Unmeasured Voids 1 1 Weight 62.823 kg 63.594 kg Patient Weight 10/26/22 23:59 Weight 63.594 kg Laboratory Results - last 24 hr 10/25/22 12:25: Urine Opiates Screen Negative, Urine Methadone Screen Negative, Ur Barbituates Screen Negative, Ur Phencyclidine Scrn Negative, Ur Amphetamines Screen Negative, U Benzodiazepines Scrn Negative, Urine Cocaine Screen Negative, U Marijuana (THC) Screen Positive H 10/25/22 12:57: SARS-CoV-2 (PCR) Not detected, Influenza A Untype (PCR) Not detected, Influenza Type B (PCR) Not detected 10/25/22 15:44: Troponin I 0.04 H 10/25/22 17:00: Lactate 0.8 10/25/22 18:40: Troponin I 0.04 H 10/25/22 21:11: POC Glucose 160 H 10/26/22 05:07: POC Glucose 150 H 10/26/22 06:15: WBC 9.5, RBC 4.13 L, Hgb 13.7 D, Hct 41.0, MCV 99.2 H, MCH 33.0 H, MCHC 33.3, RDW 13.7, Plt Count 231, MPV 7.1 L, Neut % (Auto) 83.8 H, Lymph % (Auto) 11.8, Donley % (Auto) 3.8, Eos % (Auto) 0.2, Baso % (Auto) 0.3, Neut # (Auto) 8.0 H, Lymph # (Auto) 1.1, Donley # (Auto) 0.4, Eos # (Auto) 0.0, Baso # (Auto) 0.0 10/26/22 06:15: Sodium 130 L, Potassium 2.8 L*, Chloride 83 L, Carbon Dioxide 37 H, Anion Gap 12.8, BUN 23 H, Creatinine 1.00, Estimated Creat Clear 55, Estimated GFR 55 L, Est GFR ( Amer) 67, Glucose 135 H, Calcium 9.0, Phosphorus 3.6, Magnesium 1.6 D, Total Bilirubin 0.6, AST 24 D, ALT 14, Alkaline Phosphatase 68, Total Protein 7.1, Albumin 4.1, Globulin 3.0, Albumin/Globulin Ratio 1.4, Triglycerides 69, Cholesterol 115 L, LDL Cholesterol Direct 42.03 L, VLDL Cholesterol 14, HDL Cholesterol 56, Cholesterol/HDL Ratio 2.1 I & O for Labs for Last 24 Hours: Intake & Output 11/26/24 11/27/24 11/28/24 11/29/24 23:59 23:59 23:59 23:59 Intake Total 170 / 170 Output Total 0 / 0 Balance 170 / 170 Weight 55.157 kg Constitutional: Present mild distress, average body habitus, chronically ill appearing, disheveled and cooperative Comment:: Oriented x1 tremulous Head: Present atraumatic and normocephalic ENT: Present normal exam Respiratory: Present prolonged expiratory phase, rhonchi and wheezes; Absent crackles Cardiac: Present Reg Rate and Rhythm GI: Present soft and normal bowel sounds; Absent distention or tenderness Extremities: Present normal inspection and full ROM Skin: Present intact; Absent erythema Neuro: Present Cranial Nerve 2-12 Intact, Grossly Intact, alert, awake, oriented x 3 and moves all extremities Assessment and Plan *Assessment and plan (1) Acute exacerbation of chronic obstructive pulmonary disease: Status: Acute Category: Medical Code(s): J44.1 - Chronic obstructive pulmonary disease with (acute) exacerbation (2) Acute respiratory failure with hypoxia and hypercarbia: Status: Acute Category: Medical Code(s): J96.01 - Acute respiratory failure with hypoxia; J96.02 - Acute respiratory failure with hypercapnia (3) Peripheral vascular disease: Status: Acute Category: Medical Code(s): I73.9 - Peripheral vascular disease, unspecified (4) Hypertension: Status: Acute Category: Medical Code(s): I10 - Essential (primary) hypertension (5) Smoking greater than 30 pack years: Status: Chronic Category: Social Hx Code(s): F17.210 - Nicotine dependence, cigarettes, uncomplicated Plan 69-year-old female with COPD on chronic oxygen therapy, presented with COPD exacerbation and hypercapnic respiratory failure. Responded well to BiPAP overnight. Weaning this morning. Continues to require inpatient management. Pulmonology to evaluate in the morning. Problems addressed as follows: #Acute exacerbation of chronic obstructive pulmonary disease #Acute on chronic respiratory failure with hypoxia and hypercarbia VBG with pH of 7.28 with a CO2 of 66. Repeat VBG this morning with pH of 7.45, pCO2 of 36. Discontinue BiPAP. RT assisting with setting adjustments - Pulmonology consulted to evaluate the morning - Continue DuoNebs every 6 hours, Pulmicort twice - Continue azithromycin 500 mg daily - Continue Singulair 10 mg nightly - Continue methylprednisolone 60 mg twice - Wean oxygen as tolerated, goal sats greater 90%, currently on 2 L -Resume Trelegy inhaler - White count 7.4, hemoglobin 12.9. Kidney function normal BUN 22, creatinine 0.8. Magnesium 1.8. Repeat CBC, CMP, magnesium ordered for the more #Peripheral vascular disease Sees podiatry. Had recent fracture of her left foot. Podiatry is following. Small wound to dorsum of left foot. Nickel sized with granulation tissue. Does not appear infected. Depression: Continue Cymbalta 30 mg daily, alprazolam 1 mg daily did Hypertension: Continue amlodipine 10 mg daily, Lasix 40 mg daily, losartan 100 mg daily Neuropathy: Continue gabapentin 800 mg 3 times a day Full code Regular diet PT and OT to evaluate the morning Heparin subcu 3 times daily
--- NOTE | 2024-11-29 18:00 | PC.NURSE ---
NO ACUTE CHANGES SINCE I ASSUMED CARE EARLIER TODAY. HAS RESTED IN BED PREDOMINANTLY. TOLERATING 2LNC WELL.
[2024-11-29] MEDS: BUDESONIDE 0.5MG/2ML NEB 0.5 MG IH (18:28)
[2024-11-29] MEDS: ALPRAZolam 1MG TABLET 1 MG PO (20:44)
[2024-11-29] MEDS: MONTELUKAST SODIUM 10MG TAB 10 MG PO (20:44)
[2024-11-29] MEDS: HEPARIN SODIUM 5,000 UNIT/ML VIAL 5000 UNIT SUBCUT (20:44)
[2024-11-29] MEDS: ACETAMINOPHEN 325MG TAB 650 MG PO (20:48)
[2024-11-29] MEDS: AZITHROMYCIN 500 MG in 0.9 % SODIUM CHLORIDE 250 ML 250 MG IV (21:00)
--- NOTE | 2024-11-29 22:24 | PC.NURSE ---
Addendum entered by Shirley Soler RN 11/29/24 22:35: neb changed to xopenex and sputum sample sent to lab for culturing. Original Note: patient has been tachycardic, afebrile since coming onto shift at 1900.
[2024-11-30] VITALS (10 sets, daily range): BP systolic 111–133; BP diastolic 62–86; PULSE 67–136; RESP 14–22; TEMP 36.4–36.9; O2SAT 92–98; BMI 20.7
--- NOTE | 2024-11-30 00:45 | CT_ITS ---
PROCEDURE INFORMATION: Exam: CTA Chest With Contrast Exam date and time: 11/30/2024 1:24 AM Age: 69 years old Clinical indication: Shortness of breath; Additional info: R/O pe TECHNIQUE: Imaging protocol: Computed tomographic angiography of the chest with contrast. Exam focused on the arteries. 3D rendering (Not supervised by radiologist): MIP and/or 3D reconstructed images were created by the technologist. Radiation optimization: All CT scans at this facility use at least one of these dose optimization techniques: automated exposure control; mA and/or kV adjustment per patient size (includes targeted exams where dose is matched to clinical indication); or iterative reconstruction. Contrast material: ISOUVE 370; Contrast volume: 70 ml; Contrast route: INTRAVENOUS (IV); COMPARISON: CT ANGIO CHEST PE PROTOCOL 11/09/2024 3:08 PM, CT of the chest dated 05/01/2024, 08/29/2023 and 11/01/2019. FINDINGS: Pulmonary arteries: There is a small filling defect within a right upper lobe subsegmental pulmonary arterial branch best seen on series 103, images 72-78 and series 5, images 52-47 consistent with minor thrombus. Otherwise, no evidence of pulmonary emboli. Aorta: There is no evidence of aortic dissection, leak, rupture, or other acute vascular pathology. There is no evidence of an aortic aneurysm. There is no evidence of aortic dissection, leak, rupture, or other acute vascular pathology. Celiac trunk and mesenteric arteries: Findings suggest moderate stenosis involving the origin of both celiac and SMA arteries due to prominent vascular calcifications. Thyroid: The thyroid gland is normal. Lungs: Flattening of the hemidiaphragms and increase in the AP diameter of the chest suggest COPD. Two somewhat spiculated adjacent nodular opacities in the medial right upper lobe; the larger is located medially measuring approximately 21 x 14 mm, previously measuring approximately 22 x 15 mm. The smaller adjacent opacity which is located inferolaterally measures approximately 8.7 x 9.2 mm, previously measuring proximally 8.9 x 8.9 mm, not dramatically changed. There is an additional small nodular density slightly more laterally measuring approximately 5.5 mm, unchanged, previously measuring approximately 5.4 mm. When compared with more remote examination of 10/31/2022, these have significantly increased. Malignancy should be excluded. Nonspecific mild bibasilar opacities, [id number], are consistent with atelectasis, edema, or pneumonia. These are new since prior exam. Mild centrilobular emphysematous changes are present. There is a granuloma in the left upper lobe. There is mild peribronchial thickening and partial opacification involving a few posteroinferior left lower lobe bronchi seen on series 5, image 64. Pleural spaces: There is no evidence of pneumothorax. There are trace bilateral pleural effusions. Heart: The heart is borderline enlarged. There is a trace amount of pericardial fluid. The RV/LV ratio measures 1.39 suggesting right heart strain.There is calcification of the mitral valve annulus. Coronary arteries: There is mild atherosclerotic calcification of the coronary arteries. Lymph nodes: There is no evidence of pathologic adenopathy. Calcified right hilar lymph nodes indicate prior granulomatous disease. Diaphragm: A moderate hiatal hernia is present. Liver: The visualized liver demonstrates punctate calcifications consistent with remote granulomatous organism exposure. Spleen: The spleen demonstrates punctate calcifications, consistent with remote granulomatous organism exposure. Kidneys: There is moderate nonspecific bilateral inflammatory perinephric stranding. There is a 2.5 cm right renal cyst. There is a 10 mm anterior left renal cyst.The thoracic spine demonstrates moderate degenerative changes at multiple levels. Bones/joints: The thoracic spine demonstrates moderate degenerative changes at multiple levels. Cerebral compression fractures with vertebroplasties are stable involving T11, T12 and L2 vertebral bodies.There is mild to moderate diffuse osteopenia. There is no evidence of acute fracture. Soft tissues: Unremarkable. Other findings: Motion artifact does moderately limit the sensitivity of this examination. Motion artifact does moderately limit the sensitivity of this examination. IMPRESSION: 1. Small filling defect within a right upper lobe subsegmental pulmonary arterial branch consistent with minor thrombus. Otherwise, no additional pulmonary emboli. RV/LV ratio measures 1.39 suggesting right heart strain. 2. Two somewhat spiculated adjacent nodular opacities in the medial right upper lobe; the larger located medially measuring approximately 21 x 14 mm, previously measuring approximately 22 x 15 mm workup when compared with 11/09/2024. The smaller adjacent opacity located inferolaterally measures approximately 8.7 x 9.2 mm, previously measuring approximately 8.9 x 8.9 mm when compared with 11/09/2024. Additional small nodular density slightly more laterally measuring approximately 5.5 mm, is unchanged, previously measuring approximately 5.4 mm. When compared with chest CT dated 10/31/2022, these appear significantly more prominent. Malignancy should be excluded. 3. Moderate stable hiatal hernia. 4. Moderate hiatal hernia. 5. Nonspecific mild bibasilar opacities, left greater than right, are most consistent with atelectasis, edema, or pneumonia. 6. Mild emphysematous changes 7. Stable compression fractures/vertebroplasties involving T11, T12 and L2. COMMENTS: Consistent with the [employer]'s Incidental Findings Committee white paper (J Am Janice Radiol 2018): Any incidental renal lesion less than 1 cm or classified as too small to characterize, or any incidental cystic renal lesion characterized as simple-appearing, is likely benign. No follow-up imaging is recommended for these lesions per consensus recommendations based on imaging criteria. THIS REPORT CONTAINS FINDINGS THAT MAY BE CRITICAL TO PATIENT CARE. The findings were verbally communicated via telephone conference with Veena Caballero at 2:46 AM EDT on 11/30/2024. The findings were acknowledged and understood.
[2024-11-30] MEDS: 0.9 % SODIUM CHLORIDE 50 ML VIAL 40 ML IV (01:54)
[2024-11-30] MEDS: IOPAMIDOL-370 (76%);100ML BOTTLE 70 ML IV (01:55)
[2024-11-30] MEDS: SODIUM CHLORIDE 0.9% 10ML SYR (RAD ONLY) 10 ML IV (01:55)
[2024-11-30] MEDS: METOPROLOL TARTRATE 25MG TABLET 12.5 MG PO (02:51)
--- NOTE | 2024-11-30 03:00 | ECG_ITS ---
APPROVED REPORT Exam: Resting ECG HR:134 bpm ECG Measurements Heart Rate 134 AXES QRSd 94 QRS -52 QT 260 T 0 QTc 339 Conclusion ATRIAL FIBRILLATION WITH RAPID VENTRICULAR RESPONSE LEFT AXIS DEVIATION [QRS AXIS < -30] SEPTAL MYOCARDIAL INFARCTION , OF INDETERMINATE AGE [40+ ms Q WAVE IN V1/V2] ABNORMAL ECG UNCONFIRMED REPORT Electronically signed by : Fito Connelly MD 11/30/2024 07:33:48
[2024-11-30] MEDS: METOPROLOL TARTRATE 5MG/5ML VIAL 5 MG IV ×2 (03:49→11:18)
[2024-11-30] MEDS: METHYLPREDNISOLONE SOD SUCC 125MG VIAL 60 MG IV ×2 (06:00→18:00)
[2024-11-30 06:37] LABS: Basophils % 0.1 % (0.1-2.0); Hematocrit 35.5 % (37.0-47.0); Immature Granulocytes % 0.6 %; Lymphocytes # 0.8 K/mm3 (0.7-4.5); Lymphocytes % 4.7 % (10-50); Mean Corpuscular HGB Conc 32.1 g/dL (31.8-35.4); Mean Corpuscular Hemoglobin 29.5 pg (27.0-31.2); Mean Platelet Volume 9.9 fl (7.4-10.4); Monocytes # 0.2 K/mm3 (0.1-1.0); Monocytes % 1.1 % (1.7-9.3); Neutrophils # 16.1 K/mm3 (1.8-7.8); Neutrophils % 93.5 % (37.0-80.0); Nucleated Red Blood Cells # 0 10^3/uL; Nucleated Red Blood Cells % 0 %; Platelet Count 267 K/mm3 (142-424); Red Blood Count 3.86 M/mm3 (4.20-5.40); Red Cell Distribution Width 14.5 % (11.5-17.5); Red Cell Distribution Width-SD 48.8 fL; White Blood Count 17.2 K/mm3 (4.8-10.8)
[2024-11-30] MEDS: LEVALBUTEROL 1.25MG/3ML NEB 1.25 MG IH (06:52)
[2024-11-30] MEDS: BUDESONIDE 0.5MG/2ML NEB 0.5 MG IH (06:52)
[2024-11-30] MEDS: FLUTICASONE/UMECLIDIN/VILANTER 100/62.5/25MCG INHALER 1 PUFF IH (06:53)
[2024-11-30 06:57] LABS: Albumin Level 3.5 g/dl (3.5-5.0); Chloride 100 mmol/L (98-107); Potassium 4.1 mmoL/L (3.5-5.1); Sodium 133 mmol/L (136-145)
[2024-11-30 07:00] LABS: Alanine Aminotransferase 14 U/L (12-78); Albumin/Globulin Ratio 1.4 (1.1-1.8); Alkaline Phosphatase 54 U/L (38-126); Anion Gap 10.1 mEq/L (5-15); Aspartate Amino Transferase 22 U/L (14-36); Blood Urea Nitrogen 28 mg/dl (7-17); Calcium 9.8 mg/dl (8.4-10.2); Carbon Dioxide 27 mmol/L (22.0-30.0); Creatinine Clearance Estimated 42 mL/min (50-200); Estimated Glomerular Filt Rate 49 ml/min (>60); GFR (African American) 60 ML/MIN (>60); Globulin 2.5 g/dL (1.3-3.2); Glucose 133 mg/dl (74-100); Magnesium 1.9 mg/dl (1.6-2.3)
[2024-11-30 07:06] LABS: Bilirubin,Total 0.1 mg/dl (0.2-1.3)
[2024-11-30 07:07] LABS: Hemoglobin 11.5 g/dL (12.2-16.2)
[2024-11-30] MEDS: GABAPENTIN 800MG TABLET 800 MG PO ×3 (08:05→20:09)
[2024-11-30] MEDS: ALPRAZolam 1MG TABLET 1 MG PO ×2 (08:05→20:09)
[2024-11-30] MEDS: AMLODIPINE 10MG TABLET 10 MG PO (08:05)
[2024-11-30] MEDS: IRBESARTAN 150MG TAB 150 MG PO (08:05)
[2024-11-30] MEDS: DULOXETINE 30 MG 1 EACH PO (08:06)
[2024-11-30] MEDS: FUROSEMIDE 40 MG 1 EACH PO (08:06)
[2024-11-30] MEDS: ENOXAPARIN 100MG/ML SYRINGE 55 MG SUBCUT (08:06)
[2024-11-30] MEDS: CELECOXIB 50 MG 1 EACH PO (08:06)
--- NOTE | 2024-11-30 09:34 | P.CONS_ITS ---
History of Present Illness History of present illness: Ms. Balbuena is a 69-year-old female greater than [id number] smoking history severe COPD presented today with worsening respiratory distress and weakness and pulmonary was called for further evaluation and management. [facility] Disclaimer: The information contained in this section may have been updated after the patient was seen, as this information can be updated by other users. Medical History (Updated 11/30/24 @ 12:24 by Srini Gan MD) Pneumonia Fecal occult blood test positive Sepsis without septic shock Lymphedema Physical deconditioning General weakness Lung mass Hypomagnesemia Acute hypokalemia Chronic hyponatremia Generalized weakness COPD mixed type Lung nodule Hypokalemia Elevated troponin COPD (chronic obstructive pulmonary disease) Nocturnal hypoxemia Pulmonary emphysema Incidental pulmonary nodule, greater than or equal to 8mm Smoking greater than 30 pack years Dyspnea on exertion Tobacco abuse disorder Tobacco abuse counseling COPD (chronic obstructive pulmonary disease) Cervical cancer Surgical History History of dilation and curettage History of back surgery Family History Other Diabetes Social History (Updated 11/28/24 @ 22:31 by Denise Sagastume RN) Smoking Status: Current every day smoker tobacco type: cigarettes packs per day: 2 second hand exposure: Yes alcohol intake: current alcohol intake frequency: 0-2 drinks per day current occupational status: unemployed Travel in the last 8 weeks?: None household members: spouse housing: house current occupational exposures/hazards: No Have you lived/traveled outside [place] in past 30 days?: No Contact w/someone who lives/traveled outside US past 30 days?: No Exposure to someone with infectious disease in past 14 days?: No Do you have a fever (greater than 100.4 F or 38 C)?: No Have you tested positive for COVID-19?: No Exposed to someone with COVID-19 in past 14 days?: No Do you have a sore throat?: No Do you have a cough?: No Do you have any weakness?: No Are you experiencing any nausea/vomitting?: No Do you have any diarrhea?: No Are you experiencing any unusual bleeding?: No Do you have any muscle aches/pain?: No Do you have any abdominal pain?: No Are you experiencing loss of taste or smell?: No Review of Systems Constitutional Constitutional: Reports anorexia, Reports body ache(s) and Reports fatigue Eyes Eyes: Denies eye discharge, Denies dry eyes, Denies irritation and Denies itchy eyes ENT Ears, Nose, Mouth, and Throat: Denies epistaxis, Denies facial pain, Denies lip swelling and Denies throat swelling *Cardiovascular Cardiovascular: Reports dyspnea and Reports dyspnea on exertion *Respiratory Respiratory: Reports chest congestion, Reports cough, Reports dyspnea, Reports dyspnea on exertion, Reports excessive phlegm production, Denies hemoptysis, Denies pain on inspiration, Denies pain with cough and Reports wheezing *Gastrointestinal Gastrointestinal: Denies abdominal pain, Denies belching and Denies cramping *Musculoskeletal Musculoskeletal: Reports back pain, Reports myalgias and Reports other (No small joint swelling or Pain) Psychiatric Psychiatric: Denies homicidal ideation and Denies suicidal ideation Endocrine Endocrine: Reports fatigue and Denies heat intolerance Hematologic/Lymphatic Hematologic/Lymphatic: Denies easy bleeding and Denies lymphadenopathy Allergic/Immunologic Allergic/Immunologic: Denies itchy eyes, Denies lip swelling, Denies throat swelling and Reports wheezing Pulmonology Exam Inpatient Vital signs and Labs for Last 24 Hours: Temp Pulse Resp BP Pulse Ox O2 Del Method O2 Flow Rate 97.6 F 110 H 18 124/78 94 L Nasal Cannula 1 11/30/24 08:00 11/30/24 08:00 11/30/24 08:00 11/30/24 08:00 11/30/24 08:00 11/30/24 09:00 11/30/24 09:00 FiO2 28 11/29/24 18:46 Laboratory Results - last 24 hr 11/29/24 10:15: Lactate 2.1 11/29/24 12:25: Lactate 1.2 11/29/24 23:57: D-Dimer 0.80 H 11/30/24 05:48: WBC 17.2 H D, RBC 3.86 L, Hgb 11.5 L D, Hct 35.5 L, MCV 92.0, MCH 29.5, MCHC 32.1, RDW 14.5, Plt Count 267, MPV 9.9, Neut % (Auto) 93.5 H, L ymph % (Auto) 4.7 L, Coll[place] % (Auto) 1.1 L, Eos % (Auto) 0.0 L, Baso % (Auto) 0.1, Neut # (Auto) 16.1 H, Lymph # (Auto) 0.8, Coll[place]worth # (Auto) 0.2, Eos # (Auto) 0.0, Baso # (Auto) 0.0, Sodium 133 L, Potassium 4.1 D, Chloride 100, Carbon Dioxide 27, Anion Gap 10.1, BUN 28 H D, Creatinine 1.10 H D, Estimated Creat Clear 42, E stimated GFR 49 L, Est GFR ( Amer) 60 D, Glucose 133 H, Calcium 9.8, Magnesium 1.9, Total Bilirubin 0.1 L, AST 22 D, ALT 14 D, Alkaline Phosphatase 54, Total Protein 6.0 L, Albumin 3.5 D, Globulin 2.5, Albumin/Globulin Ratio 1.4 I & O for Labs for Last 24 Hours: Intake & Output 11/27/24 11/28/24 11/29/24 11/30/24 23:59 23:59 23:59 23:59 Intake Total 780 / 900 480 / 480 Output Total 2 / 2 0 / 0 Balance 778 / 898 480 / 480 Weight 121 lb 9.6 oz 121 lb 9.606 oz 121 lb 6.4 oz Microbiology Reports for the Last 24 Hours: Microbiology 11/29/24 22:15 Sputum - Expectorated Sputum Gram Stain - Final Constitutional: Present moderate distress Head: Present normocephalic and atraumatic ENT: Present normal exam, normal oropharynx and mucous membranes moist Neck: Present normal inspection and full ROM Respiratory: Present respiratory distress, rhonchi, wheezes and able to speak in complete sentences Cardiac: Present S1/S2, Tachycardia and radial pulses present GI: Present soft and distention; Absent tenderness or guarding Rectal (female): Present deferred (female): Present deferred Skin: Present intact; Absent cyanosis or jaundice Neuro: Present alert, awake and oriented x 3 Extremities: Present normal inspection; Absent clubbing or cyanosis Psychiatric: Present normal affect and cooperative Meds Home Medications and Allergies Home Medications ?Medication ?Instructions ?Recorded ?Confirmed ?Type ipratropium 0.5 mg-albuterol 3 mg 3 ml inhalation QIDP PRN Shortness 07/03/21 11/29/24 History (2.5 mg base)/3 mL nebulization Of Breath soln albuterol sulfate 90 mcg/actuation 2 inh inhalation Q6H 04/15/24 11/29/24 History aerosol inhaler alprazolam 1 mg tablet 1 mg PO BID 04/15/24 11/29/24 History calcium 600 mg (as 1 tab PO BIDWMEAL 04/15/24 11/29/24 History carbonate)-vitamin D3 5 mcg (200 unit) tablet celecoxib 50 mg capsule 50 mg PO DAILY 04/15/24 11/29/24 History cholecalciferol (vitamin D3) 1,250 1,250 mcg PO WEEKLY 04/15/24 11/29/24 History mcg (50,000 unit) capsule duloxetine 30 mg capsule,delayed 30 mg PO DAILY 04/15/24 11/29/24 History release gabapentin 800 mg tablet 800 mg PO TID 04/15/24 11/29/24 History losartan 100 mg tablet 100 mg PO DAILY 04/15/24 11/29/24 History montelukast 10 mg tablet 10 mg PO PM 04/15/24 11/29/24 History potassium chloride 20 mEq 20 meq PO BID 04/15/24 11/29/24 History tablet,extended release(part/cryst) amlodipine 10 mg tablet 10 mg PO DAILY #30 tabs 04/16/24 11/29/24 Rx fluticasone fur. 100 mcg-umeclid 1 inh inhalation DAILY #60 ea 08/16/24 11/29/24 Rx 62.5 mcg-vilant 25 mcg inhalat.powder (Trelegy Ellipta) furosemide 40 mg tablet 40 mg PO DAILY 30 days #30 tabs 08/16/24 11/29/24 Rx magnesium gluconate 27 mg 27 mg PO DAILY 11/29/24 11/29/24 History magnesium (500 mg) tablet plecanatide 3 mg tablet (Trulance) 3 mg PO DAILY 11/29/24 11/29/24 History New Prescriptions to Start Prescriptions: Allergies Allergy/AdvReac Type Severity Reaction Status Date / Time No Known Allergies Allergy Verified 11/17/24 15:18 Results Laboratory Findings 11/30/24 05:48 11/30/24 05:48 PT/INR, D-dimer D-Dimer 0.80 ug/mL (0.0-0.5) H 11/29/24 23:57 Abnormal lab findings: Abnormal Labs 11/28/24 11/28/24 11/28/24 17:50 17:55 22:00 WBC 11.4 H RBC Hgb Hct MCHC 30.7 L Neut % (Auto) Lymph % (Auto) Collingsworth % (Auto) Eos % (Auto) Neut # (Auto) Lymph # (Auto) D-Dimer VBG pH 7.28 L 7.28 L VBG pCO2 66.2 H 60.4 H VBG pO2 43.4 H VBG HCO3 30.3 H VBG Total CO2 32.3 H 29.8 H VBG O2 Saturation 75.3 H VBG Base Excess 3.5 H VBG Lactic Acid 2.4 H 2.2 H Sodium Potassium Carbon Dioxide 34 H BUN 19 H Creatinine 1.20 H Estimated GFR 45 L Est GFR ( Amer) 54 L Glucose 163 H Calcium 11.7 H Total Bilirubin AST Total Protein 11/29/24 11/29/24 11/29/24 05:58 06:40 23:57 WBC RBC Hgb Hct MCHC 31.7 L Neut % (Auto) 90.0 H Lymph % (Auto) 8.6 L [place] % (Auto) 0.8 L Eos % (Auto) 0.0 L Neut # (Auto) Lymph # (Auto) 0.6 L D-Dimer 0.80 H VBG pH 7.45 H VBG pCO2 VBG pO2 54.2 H VBG HCO3 VBG Total CO2 VBG O2 Saturation 89.9 H VBG Base Excess VBG Lactic Acid 3.4 H Sodium 133 L Potassium 5.2 H Carbon Dioxide BUN 22 H Creatinine Estimated GFR Est GFR ( Amer) Glucose 148 H Calcium 10.8 H Total Bilirubin AST 76 H D Total Protein 11/30/24 05:48 WBC 17.2 H D RBC 3.86 L Hgb 11.5 L D Hct 35.5 L MCHC Neut % (Auto) 93.5 H Lymph % (Auto) 4.7 L [place] % (Auto) 1.1 L Eos % (Auto) 0.0 L Neut # (Auto) 16.1 H Lymph # (Auto) D-Dimer VBG pH VBG pCO2 VBG pO2 VBG HCO3 VBG Total CO2 VBG O2 Saturation VBG Base Excess VBG Lactic Acid Sodium 133 L Potassium Carbon Dioxide BUN 28 H D Creatinine 1.10 H D Estimated GFR 49 L Est GFR ( Amer) Glucose 133 H Calcium Total Bilirubin 0.1 L AST Total Protein 6.0 L Assessment and Plan *Assessment and plan (1) Acute exacerbation of chronic obstructive pulmonary disease: Status: Acute Category: Medical Code(s): J44.1 - Chronic obstructive pulmonary disease with (acute) exacerbation (2) Acute respiratory failure with hypoxia and hypercarbia: Status: Acute Category: Medical Code(s): J96.01 - Acute respiratory failure with hypoxia; J96.02 - Acute respiratory failure with hypercapnia (3) Pneumonia: Status: Acute Category: Medical Code(s): J18.9 - Pneumonia, unspecified organism (4) Lung nodule: Status: Acute Category: Medical Code(s): R91.1 - Solitary pulmonary nodule Plan Ms. Balbuena is a 69-year-old female greater than [id number] smoking history severe COPD presented today with worsening respiratory distress and weakness and pulmonary was called for further evaluation and management. CTA upon admission, spiculated nodular opacities in the right upper lobe along the minor fissure can well be airspace disease/malignant etiology. These nodules are present from her CT from April 2022 (GGO), October 2022 and Aug 2023, increasing in size and more solid. PET from May 2021 SUV 2.2. Left lower lobe consolidative changes noted. Right upper lobe subsegmental PE noted. The noted subsegmental PE was not appreciated on her CT from October 2023 Afebrile. Hemodynamically stable. COVID-19 and flu PCR negative. Worsening leukocytosis. Currently in A-fib RVR, hemodynamically stable. Initial ABG showed hypercarbic respiratory failure with a pH of 7.28 and a PCO2 of 66.2 needing noninvasive ventilatory therapy, subsequent blood gases showed improvement Plan: Advair 500 inhaler along with Spiriva along with DuoNebs every 4 as needed Continue ceftriaxone and Azithromycin pending sputum culture results, can be weaned to cefdinir to complete a total of 5-day course upon discharge Continue steroids with prednisone 40 mg daily x 5 days Continue full dose anticoagulation for the noted pulmonary embolism.. Likely need indefinite anticoagulation. # For the concerning worsening right upper lobe lung nodule I extensively discussed with the patient and will likely pursue lung biopsy at this point of time given worsening size on density despite previously being PET negative
--- NOTE | 2024-11-30 09:45 | SW/DCPLANNER ---
I spoke w/ patient regarding plans once medically stable for discharge. PT evaluated patient and recommended SNF level of care at time of discharge. Patient is not interested in placement at this time and stated that she lives at home w/ her son whom is home w/ her 04/02. I called and spoke w/ son whom is agreeable for patient to return home. Patient is agreeable w/ home health services at time of discharge. CM will continue to follow up. Discharge date is unknown at this time.
--- NOTE | 2024-11-30 11:06 | ECG_ITS ---
APPROVED REPORT Exam: Resting ECG HR:124 bpm ECG Measurements Heart Rate 124 AXES QRSd 101 QRS -36 QT 294 T 0 QTc 367 Conclusion ATRIAL FIBRILLATION WITH RAPID VENTRICULAR RESPONSE LEFT AXIS DEVIATION [QRS AXIS < -30] NONSPECIFIC ST & T-WAVE ABNORMALITY ABNORMAL ECG UNCONFIRMED REPORT Electronically signed by : Fito Connelly MD 12/01/2024 08:08:33
[2024-11-30] MEDS: METOPROLOL TARTRATE 50MG TABLET 50 MG PO ×3 (11:11→16:53)
[2024-11-30] MEDS: CEFTRIAXONE SODIUM 2 GM in 0.9 % SODIUM CHLORIDE 100 ML IV (11:11)
--- NOTE | 2024-11-30 11:21 | HMH.PTEV ---
Physical Therapy Evaluation Rehab PT IP Evaluation Start: 11/28/24 22:36 Freq: ONCE Status: Active Protocol: Document 11/30/24 11:18 CROW (Rec: 11/30/24 11:21 CROW [id number]) Subjective/History History History Per H&P This is a 69-year-old female with past medical history of COPD, chronic respiratory failure on 2 L nasal cannula at night and as needed who presents emergency department today with complaints of shortness of breath and lower extremity weakness. She reports symptoms have been progressing over the last 48 hours. She denies any chest pain. Denies any fever. Subjective Subjective Pt reports she lives in a trailer with her son and daughter who are available to assist if needed. Pt reports she is usually IND with mobility using a RW. Pt has 4 [place]IG[address] home with HRs. Pt still intermittently driving. New diagnosis of cancer in past 12 No months? [facility] How much help from another person do you currently need... Turning from your back to your side None while in a flat bed without using bedrails? Moving from lying on back to sitting on A little the side of a flat bed without using bedrails? Moving to and from a bed to a chair ( A little including a wheelchair)? Standing up from a chair using your arms A little ? (e.g., wheelchair, bedside chair) Walking in hospital room? A little Climbing 3-5 steps with a railing? A little Mobility Score 19 Mobility Level [facility] Mobility Calculator Mobility 6 Walk 10 steps or more Rehab PT IP Eval Objective Appearance Patient Behavior Appropriate,Cooperative Patient Orientation Person Difficulty following instructions none Speech Pattern Clear Ambulation Patient Able to Ambulate Yes Ambulation Observation IP General Gait Pattern Observation Wide Based Gait Ambulation Distance (feet) 15 Ambulation Assistive Device Rolling Walker Ambulation Ability Minimal x 1 (25% assist) Balance Ability to Arise Able, uses arms to help Sitting Balance Steady, safe Standing Balance Unsteady Dynamic Sitting Balance Ability Good Transfers Bed Transfer Ability Minimal x 1 (25% assist) Sit to Stand Bed Transfer Ability Minimal x 1 (25% assist) Rehab PT IP prob,goals,plan Problems Date of Evaluation: 11/30/24 PT IP Problems Bed Mobility,Transfers,Gait, Balance,Self care,Safety Rehab Potential Rehab Potential Good Equipment Needs Assistive Devices Rolling / Wheeled Walker Plan PT Intervention Plan Bed Mobility,Transfers,Gait, Balance,Self care,Safety, Therapeutic Exercise Other Intervention Plan 1-2 times PT Plan Frequency Daily Duration LOS Discharge Goals Bed Transfer Ability Supervision/Stand by Sit to Stand Chair Transfer Ability Supervision/Stand by Ambulation Assistive Device Rolling Walker Ambulation Distance (feet) 30 Discharge Plan PT Discharge Plan Initial physical therapy evaluation performed. Patient presents below baseline at this time in functional mobility, transfers, gait, and strength. PT most appropriate for short-term rehabilitation stay upon d/c from [facility] to maximize safety, return to [facility], and decrease caregiver burden. If pt refuses rehab, pt may be appropriate to return home with home health if he has 24/ assistance and supervision. Pt would benefit from skilled PT while at [facility] to prevent further functional decline and maximize safety with mobility. Eval Complexity Eval Charge Codes 20020 - Moderate Complexity PHYSICIAN CERTIFICATION: I certify the specified therapy services for Iqra Balbuena are required, authorized, and reviewed every 30 days.
--- NOTE | 2024-11-30 12:48 | HMH.OTEV ---
OT Inpatient Evaluation Rehab OT IP Evaluation Start: 11/28/24 22:36 Freq: ONCE Status: Active Protocol: Document 11/30/24 12:40 BRANDON (Rec: 11/30/24 12:47 BRANDON [id number]) Rehab OT IP Assessment Subjective History Per H&P This is a 69-year-old female with past medical history of COPD, chronic respiratory failure on 2 L nasal cannula at night and as needed who presents emergency department today with complaints of shortness of breath and lower extremity weakness. She reports symptoms have been progressing over the last 48 hours. She denies any chest pain. Denies any fever. Subjective Pt was supine in bed when therapy arrived. Pt was orient x3. Pt reports she lives in a trailer with 4 steps w/ hand rails, and lives with her son and daughter who are available to assist if needed. Pt reports she is usually IND with mobility using a RW. Pt still intermittently driving. Pt reports they have a shower chair at home, and is Ind in ADLs and needs assist with IADLs. Pt agreed to sit on EOB . Pt was SBA for supine to sit on EOB and demo good static sitting balance for approx one minute while at EOB. Pt then agreed to doff/don sock with SBA. Pt demo good dynamic sitting balance for task. Pt then went from EOB to supine with SBA. pt left with call light and all other needs within reach. Objective Patient Orientation Person,Place,Birthday Right Upper Extremity Gross ROM WFL Left Upper Extremity Gross ROM WFL Bed Mobility bed mobility-scooting,bed mobility - supine/sit Assist Level Supervision/Stand by Decrease in Endurance Yes Rehab OT IP prob,goals,plan Problems Date of Evaluation: 11/30/24 OT IP Problems Bed Mobility,Transfers,Balance ,Self care,Safety Rehab Potential Rehab Potential Good Equipment Needs Assistive Devices Standard Walker Plan OT intervention Plan Bed Mobility,Transfers,Balance ,Self care,Safety,Therapeutic Exercise OT Plan Frequency Daily Duration LOS Discharge Goals Bed Mobility Ability Independent Sit to Stand Chair Transfer Ability Contact Guard/Hand Hold Chair Transfer Ability Contact Guard/Hand Hold Chair Transfer Technique Stand Step Pivot Chair Transfer Assistive Devices Standard Walker Self care skills dressing/undressing independently Feeding Ability Assist with Tray Set Up Lower Body Dressing Ability Independent Upper Body Dressing Ability Independent Bathing Ability Standby Assistance Performing Toilet Hygiene Ability Standby Assistance Overall Commode/Toilet Transfer Ability Standby Assistance Commode/Toilet Transfer Technique Sit to/from Ambulatory Commode/Toilet Transfer Assistive Raised Toilet Seat,Grab Bars Devices Oral Care Assist Independent Decrease in Endurance No Discharge Plan OT Discharge Plan At this time, pt will be seen for skilled OT services and interventions while at [facility] to improve occupational performance. It is also recommended pt receive skilled OT services and interventions once DC from [facility] to improve occupational performance. Eval Complexity Eval Charge Codes 91255 - Moderate Complexity PHYSICIAN CERTIFICATION: I certify the specified therapy services for Iqra Balbuena are required, authorized, and reviewed every 30 days.
[2024-11-30] MEDS: AZITHROMYCIN 250MG TABLET 500 MG PO (12:52)
--- NOTE | 2024-11-30 13:05 | SW/DCPLANNER ---
Addendum entered by Sultana Garvin 11/30/24 15:20: [facility] is able to accept patient. Leonel Thomas Original Note: Spoke with patient once medically stable for discharge if she would be interested in home health services. Patient stated that she is interested and that she had no preference of what agency to send her information to. I faxed patient's info to [facility]. Will update once i hear back if [facility] can accept patient or not. Leonel Thomas
--- NOTE | 2024-11-30 15:57 | PC.NURSE ---
a&ox4. pt resting supine in bed with daughter at bedside. requiring 1L NC to maintain o2 >90%. ambulates with rolling walker and standby assistance to the BR. HR remains tachycardic. pt started on metoprolol tartrate 50mg q8. one time dose of IV metoprolol tartrate 5mg given, with HR remaining tachy. lovenox given for VTE. pulmonology consulted. PT reccomended SNF, however pt refused. Son provides 04/02 care at home. pt agreeable to home health. no complaints of pain or shortness of breath. no needs at this time. call light within reach.
--- NOTE | 2024-11-30 16:43 | EXP.ACUTE.PN ---
Subjective *Date: 11/30/24 *Time: 16:43 Interval history: Tolerating wean of oxygen, on 2 L. Heart rate has been elevated however. Appears to be in A-fib on EKG this morning. Patient's white count is jumped, suspect secondary to pneumonia versus steroids. Pulmonology evaluating today. Appears more comfortable on exam. Medical Exam Vital signs and Labs for Last 24 Hours: Vital Signs Temp Pulse Pulse Resp BP Pulse Ox O2 Del Method 11/30/24 15:00 Nasal Cannula 11/30/24 13:00 Nasal Cannula 11/30/24 12:00 120 H 11/30/24 12:00 98.0 F 122 H 16 126/79 95 Nasal Cannula 11/30/24 11:00 Nasal Cannula 11/30/24 09:00 Nasal Cannula 11/30/24 08:00 120 H 11/30/24 08:00 Nasal Cannula 11/30/24 08:00 97.6 F 110 H 18 124/78 94 L Nasal Cannula 11/30/24 07:10 98 Nasal Cannula 11/30/24 06:55 106 H 11/30/24 06:55 128 H 11/30/24 06:55 98 Nasal Cannula 11/30/24 06:06 Nasal Cannula 11/30/24 04:50 Nasal Cannula 11/30/24 04:00 120 H 11/30/24 04:00 98.0 F 136 H 14 119/86 95 Room Air 11/30/24 03:00 Nasal Cannula 11/30/24 01:00 Nasal Cannula 11/30/24 00:00 93 L Nasal Cannula 11/30/24 00:00 100 H 11/30/24 00:00 98.0 F 104 H 21 120/82 92 L Room Air 11/29/24 23:00 Nasal Cannula 11/29/24 22:34 98.2 F 121 H 16 11/29/24 22:25 120 H 20 11/29/24 22:23 122 H 11/29/24 22:22 120 H 11/29/24 21:15 98.6 F 126 H 11/29/24 21:00 Nasal Cannula 11/29/24 20:00 110 H 11/29/24 20:00 Nasal Cannula 11/29/24 20:00 98.2 F 115 H 20 126/82 99 Room Air 11/29/24 19:00 Nasal Cannula 11/29/24 18:46 Nasal Cannula 11/29/24 18:45 103 H 11/29/24 18:45 101 H 11/29/24 17:00 Nasal Cannula O2 Flow Rate FiO2 11/30/24 15:00 1 11/30/24 13:00 1 11/30/24 12:00 11/30/24 12:00 1 11/30/24 11:00 1 11/30/24 09:00 1 11/30/24 08:00 11/30/24 08:00 1 11/30/24 08:00 1 11/30/24 07:10 1 11/30/24 06:55 11/30/24 06:55 11/30/24 06:55 2 11/30/24 06:06 2 11/30/24 04:50 2 11/30/24 04:00 11/30/24 04:00 11/30/24 03:00 2 11/30/24 01:00 2 11/30/24 00:00 2 11/30/24 00:00 11/30/24 00:00 11/29/24 23:00 2 11/29/24 22:34 11/29/24 22:25 11/29/24 22:23 11/29/24 22:22 11/29/24 21:15 11/29/24 21:00 2 11/29/24 20:00 11/29/24 20:00 2 11/29/24 20:00 11/29/24 19:00 2 11/29/24 18:46 2 28 11/29/24 18:45 11/29/24 18:45 11/29/24 17:00 2 Intake and Output 11/30/24 11/30/24 11/30/24 07:59 15:59 23:59 Intake Total 240 / 840 600 / 840 Output Total 0 / 0 Balance 240 / 840 600 / 840 Intake: Intake, Oral Amount 240 / 840 600 / 840 Output: Output, Urine Amount 0 / 0 Other: Number of Unmeasured Voids 1 Weight 55.066 kg Patient Weight 11/30/24 23:59 Weight 55.066 kg Laboratory Results - last 24 hr 11/29/24 23:57: D-Dimer 0.80 H 11/30/24 05:48: WBC 17.2 H D, RBC 3.86 L, Hgb 11.5 L D, Hct 35.5 L, MCV 92.0, MCH 29.5, MCHC 32.1, RDW 14.5, Plt Count 267, MPV 9.9, Neut % (Auto) 93.5 H, Lymph % (Auto) 4.7 L, [place] % (Auto) 1.1 L, Eos % (Auto) 0.0 L, Baso % (Auto) 0.1, Neut # (Auto) 16.1 H, Lymph # (Auto) 0.8, [place] # (Auto) 0.2, Eos # (Auto) 0.0, Baso # (Auto) 0.0, Sodium 133 L, Potassium 4.1 D, Chloride 100, Carbon Dioxide 27, Anion Gap 10.1, BUN 28 H D, Creatinine 1.10 H D, Estimated Creat Clear 42, Estimated GFR 49 L, Est GFR ( Amer) 60 D, Glucose 133 H, Calcium 9.8, Magnesium 1.9, Total Bilirubin 0.1 L, AST 22 D, ALT 14 D, Alkaline Phosphatase 54, Total Protein 6.0 L, Albumin 3.5 D, Globulin 2.5, Albumin/Globulin Ratio 1.4 I & O for Labs for Last 24 Hours: Intake & Output 11/27/24 11/28/24 11/29/24 11/30/24 23:59 23:59 23:59 23:59 Intake Total 780 / 900 840 / 840 Output Total 2 / 2 0 / 0 Balance 778 / 898 840 / 840 Weight 55.157 kg 55.157 kg 55.066 kg Microbiology Reports for the Last 24 Hours: Microbiology 11/29/24 22:15 Sputum - Expectorated Sputum Gram Stain - Final 11/29/24 22:15 Sputum - Expectorated Sputum Sputum Culture - Preliminary Gram Negative Rods Constitutional: Present mild distress, average body habitus, chronically ill appearing, disheveled and cooperative Comment:: Oriented x1 tremulous Head: Present atraumatic and normocephalic ENT: Present normal exam Respiratory: Present prolonged expiratory phase, rhonchi, wheezes, diminished air movement and normal respiratory effort; Absent crackles Cardiac: Present Tachycardia Comment:: Irregularly irregular GI: Present soft and normal bowel sounds; Absent distention or tenderness Extremities: Present normal inspection and full ROM Skin: Present intact; Absent erythema Neuro: Present Cranial Nerve 2-12 Intact, Grossly Intact, alert, awake, oriented x 3 and moves all extremities Assessment and Plan *Assessment and plan (1) Acute exacerbation of chronic obstructive pulmonary disease: Status: Acute Category: Medical Code(s): J44.1 - Chronic obstructive pulmonary disease with (acute) exacerbation (2) Acute respiratory failure with hypoxia and hypercarbia: Status: Acute Category: Medical Code(s): J96.01 - Acute respiratory failure with hypoxia; J96.02 - Acute respiratory failure with hypercapnia (3) Pneumonia: Status: Acute Category: Medical Code(s): J18.9 - Pneumonia, unspecified organism (4) Atrial fibrillation: Status: Acute Category: Medical Code(s): I48.91 - Unspecified atrial fibrillation (5) Lung nodule: Status: Acute Category: Medical Code(s): R91.1 - Solitary pulmonary nodule (6) Peripheral vascular disease: Status: Acute Category: Medical Code(s): I73.9 - Peripheral vascular disease, unspecified (7) Hypertension: Status: Acute Category: Medical Code(s): I10 - Essential (primary) hypertension (8) Smoking greater than 30 pack years: Status: Chronic Category: Social Hx Code(s): F17.210 - Nicotine dependence, cigarettes, uncomplicated Plan 69-year-old female with COPD on chronic oxygen therapy, presented with COPD exacerbation and hypercapnic respiratory failure. Responded well to BiPAP overnight. Weaning this morning. Continues to require inpatient management. Pulmonology evaluated today. Patient appears to be in A-fib. Continues to require inpatient management to adjust rate controlling regimen. COPD exacerbation improving. Sputum growing gram-negative rods. Problems addressed as follows: #Acute exacerbation of chronic obstructive pulmonary disease #Acute on chronic respiratory failure with hypoxia and hypercarbia Pulmonary emboli - VBG with pH of 7.28 with a CO2 of 66. Repeat VBG this morning with pH of 7.45, pCO2 of 36. Discontinue BiPAP. RT assisting with setting adjustments - Pulmonology consulted, discussed case this morning, continue anticoagulation for PE. Broaden antibiotics with azithromycin and ceftriaxone for gram-negative coverage. Wean oxygen as tolerated for goal sats greater 90%. Currently on 2 L. -Consider weaning to cefdinir to complete 5-day course at discharge pending sputum culture. - Continue Pulmicort twice - Continue Singulair 10 mg nightly - Discontinue methylprednisolone, transition to prednisone 40 mg daily -Trend Advair 500 inhaler along with Spiriva along with DuoNebs every 4 as needed. - White count elevated to 17.2, hemoglobin 11.5, kidney function normal with BUN 28, creatinine 1.1. Magnesium 1.9. Repeat CBC, CMP, magnesium ordered for the more - Consider lung biopsy as an outpatient due to her pulmonary nodules. - Eliquis 10 mg twice daily for 7 days, transition to 5 mg twice daily thereafter A-fib with RVR: New onset, per my review of EKG, is in A-fib with RVR with rate of about 112. Initiate anticoagulation with Eliquis as above for PEs, initiate metoprolol. Received multiple doses of metoprolol tartrate today, will increase to metoprolol succinate 100 mg this evening. Monitor for improvement with rate less than 90 #Peripheral vascular disease Sees podiatry. Had recent fracture of her left foot. Podiatry is following. Small wound to dorsum of left foot. Nickel sized with granulation tissue. Does not appear infected. Depression: Continue Cymbalta 30 mg daily, alprazolam 1 mg daily did Hypertension: Continue amlodipine 10 mg daily, Lasix 40 mg daily, losartan 100 mg daily Neuropathy: Continue gabapentin 800 mg 3 times a day Full code Regular diet PT and OT to evaluate the morning Eliquis therapeutic dose
[2024-11-30] MEDS: dilTIAZem 25MG/5ML VIAL 15 MG IV (16:53)
--- NOTE | 2024-11-30 17:12 | PC.NURSE ---
pt given 50 mg metoprolol tartrate PO and cardizem 15mg IV @ 1653 with HR 110s-120s. pt HR now 63-70 @ 1714
[2024-11-30] MEDS: MONTELUKAST SODIUM 10MG TAB 10 MG PO (17:52)
[2024-11-30] MEDS: FLUTICASONE/SALMETEROL 500/50MCG DISKUS 1 PUFF IH (17:53)
[2024-11-30] MEDS: APIXABAN 5MG TABLET 10 MG PO (20:09)
[2024-11-30] MEDS: METOPROLOL SUCCINATE XL 100MG TABLET 100 MG PO (20:09)
[2024-12-01] VITALS: BP 114/63; PULSE 90; PULSE 92; RESP 25; TEMP 36.4; O2SAT 97
[2024-12-01 04:00] VITALS: BP 144/50; PULSE 104; PULSE 110; RESP 18; TEMP 36.5; O2SAT 96; BMI 20.4
[2024-12-01] MEDS: FLUTICASONE/SALMETEROL 500/50MCG DISKUS 1 PUFF IH (06:08)
[2024-12-01] MEDS: TIOTROPIUM 18MCG/PUFF INHALER 1 CAP IH (06:09)
[2024-12-01 06:10] VITALS: O2SAT 98
[2024-12-01] MEDS: METHYLPREDNISOLONE SOD SUCC 125MG VIAL 60 MG IV (06:46)
[2024-12-01 06:59] LABS: Basophils % 0.1 % (0.1-2.0); Hemoglobin 11.8 g/dL (12.2-16.2); Immature Granulocytes # 0.08 10^3uL; Immature Granulocytes % 0.6 %; Lymphocytes # 1.2 K/mm3 (0.7-4.5); Lymphocytes % 8.8 % (10-50); Mean Corpuscular HGB Conc 31.1 g/dL (31.8-35.4); Mean Corpuscular Hemoglobin 30.1 pg (27.0-31.2); Mean Corpuscular Volume 96.9 fl (81-99); Mean Platelet Volume 10.1 fl (7.4-10.4); Monocytes # 0.2 K/mm3 (0.1-1.0); Monocytes % 1.4 % (1.7-9.3); Neutrophils # 11.9 K/mm3 (1.8-7.8); Neutrophils % 89.1 % (37.0-80.0); Nucleated Red Blood Cells # 0 10^3/uL; Nucleated Red Blood Cells % 0 %; Platelet Count 223 K/mm3 (142-424); Red Blood Count 3.92 M/mm3 (4.20-5.40); Red Cell Distribution Width 14.8 % (11.5-17.5); Red Cell Distribution Width-SD 51.8 fL; White Blood Count 13.4 K/mm3 (4.8-10.8)
[2024-12-01 07:01] LABS: Alanine Aminotransferase 17 U/L (12-78); Albumin Level 3.8 g/dl (3.5-5.0); Albumin/Globulin Ratio 1.5 (1.1-1.8); Alkaline Phosphatase 81 U/L (38-126); Aspartate Amino Transferase 68 U/L (14-36); Bilirubin,Total 0.4 mg/dl (0.2-1.3); Blood Urea Nitrogen 32 mg/dl (7-17); Calcium 8.8 mg/dl (8.4-10.2); Carbon Dioxide 27 mmol/L (22.0-30.0); Chloride 97 mmol/L (98-107); Creatinine Clearance Estimated 45 mL/min (50-200); Estimated Glomerular Filt Rate 62 ml/min (>60); GFR (African American) 75 ML/MIN (>60); Globulin 2.5 g/dL (1.3-3.2); Glucose 148 mg/dl (74-100); Sodium 131 mmol/L (136-145); Total Protein,Serum 6.3 g/dl (6.3-8.2)
[2024-12-01 07:54] LABS: Magnesium 1.8 mg/dl (1.6-2.3)
[2024-12-01 08:00] VITALS: BP 114/87; PULSE 105; PULSE 120; RESP 20; O2SAT 93
--- NOTE | 2024-12-01 08:38 | PC.NURSE ---
TECH NOTE; NURSE NOTIFIED OF HEART RATE FOR 0800 VITAL SIGNS. WAS NOT ABLE TO OBTAIN PATIENT TEMPERATURE ORALLY OR AXILLARY, NURSE NOTIFIED Torie SOLIS, SRNA
[2024-12-01] MEDS: CEFTRIAXONE SODIUM 2 GM in 0.9 % SODIUM CHLORIDE 100 ML IV (09:24)
[2024-12-01] MEDS: ALPRAZolam 1MG TABLET 1 MG PO (09:24)
[2024-12-01] MEDS: IRBESARTAN 150MG TAB 150 MG PO (09:24)
[2024-12-01] MEDS: GABAPENTIN 800MG TABLET 800 MG PO ×2 (09:24→13:11)
[2024-12-01] MEDS: AMLODIPINE 10MG TABLET 10 MG PO (09:25)
[2024-12-01] MEDS: APIXABAN 5MG TABLET 10 MG PO (09:25)
[2024-12-01] MEDS: CELECOXIB 50 MG 1 EACH PO (09:26)
[2024-12-01] MEDS: FUROSEMIDE 40 MG 1 EACH PO (09:26)
[2024-12-01] MEDS: DULOXETINE 30 MG 1 EACH PO (09:26)
--- NOTE | 2024-12-01 09:47 | P.PN_ITS ---
Subjective *Date: 12/01/24 *Time: 12:57 Interval history: No acute respiratory events overnight. Patient admits improving respiratory symptoms. Pulmonology Exam Inpatient Vital signs and Labs for Last 24 Hours: Temp Pulse Resp BP Pulse Ox O2 Del Method O2 Flow Rate 97.7 F 105 H 20 114/87 93 L Nasal Cannula 2 12/01/24 04:00 12/01/24 08:00 12/01/24 08:00 12/01/24 08:00 12/01/24 08:00 12/01/24 08:00 12/01/24 08:00 FiO2 28 11/29/24 18:46 Laboratory Results - last 24 hr 12/01/24 05:29: WBC 13.4 H, RBC 3.92 L, Hgb 11.8 L, Hct 38.0, MCV 96.9, MCH 30.1, MCHC 31.1 L, RDW 14.8, Plt Count 223, MPV 10.1, Neut % (Auto) 89.1 H, Lymph % (Auto) 8.8 L, [place] % (Auto) 1.4 L, Eos % (Auto) 0.0 L, Baso % (Auto) 0.1, Neut # (Auto) 11.9 H, Lymph # (Auto) 1.2, [place] # (Auto) 0.2, Eos # (Auto) 0.0, Baso # (Auto) 0.0, Sodium 131 L, Potassium 4.0, Chloride 97 L, Carbon Dioxide 27, Anion Gap 11.0, BUN 32 H, Creatinine 0.90, Estimated Creat Clear 45, Estimated GFR 62, Est GFR ( Amer) 75 D, Glucose 148 H, Calcium 8.8, Magnesium 1.8, Total Bilirubin 0.4, AST 68 H D, ALT 17, Alkaline Phosphatase 81, Total Protein 6.3, Albumin 3.8, Globulin 2.5, Albumin/Globulin Ratio 1.5 Temp Pulse Resp BP Pulse Ox O2 Del Method O2 Flow Rate 97.6 F 110 H 18 124/78 94 L Nasal Cannula 1 11/30/24 08:00 11/30/24 08:00 11/30/24 08:00 11/30/24 08:00 11/30/24 08:00 11/30/24 09:00 11/30/24 09:00 FiO2 28 11/29/24 18:46 Laboratory Results - last 24 hr 11/29/24 10:15: Lactate 2.1 11/29/24 12:25: Lactate 1.2 11/29/24 23:57: D-Dimer 0.80 H 11/30/24 05:48: WBC 17.2 H D, RBC 3.86 L, Hgb 11.5 L D, Hct 35.5 L, MCV 92.0, MCH 29.5, MCHC 32.1, RDW 14.5, Plt Count 267, MPV 9.9, Neut % (Auto) 93.5 H, Lymph % (Auto) 4.7 L, [place] % (Auto) 1.1 L, Eos % (Auto) 0.0 L, Baso % (Auto) 0.1, Neut # (Auto) 16.1 H, Lymph # (Auto) 0.8, [place] # (Auto) 0.2, Eos # (Auto) 0.0, Baso # (Auto) 0.0, Sodium 133 L, Potassium 4.1 D, Chloride 100, Carbon Dioxide 27, Anion Gap 10.1, BUN 28 H D, Creatinine 1.10 H D, Estimated Creat Clear 42, Estimated GFR 49 L, Est GFR ( Amer) 60 D, Glucose 133 H, Calcium 9.8, Magnesium 1.9, Total Bilirubin 0.1 L, AST 22 D, ALT 14 D, Alkaline Phosphatase 54, Total Protein 6.0 L, Albumin 3.5 D, Globulin 2.5, Albumin/Globulin Ratio 1.4 I & O for Labs for Last 24 Hours: Intake & Output 11/28/24 11/29/24 11/30/24 12/01/24 23:59 23:59 23:59 23:59 Intake Total 780 / 900 960 / 1182 582 / 582 Output Total 2 / 2 0 / 0 0 / 0 Balance 778 / 898 960 / 1182 582 / 582 Weight 121 lb 9.6 oz 121 lb 9.606 oz 121 lb 6.4 oz 119 lb 8 oz Intake & Output 11/27/24 11/28/24 11/29/24 11/30/24 23:59 23:59 23:59 23:59 Intake Total 780 / 900 480 / 480 Output Total 2 / 2 0 / 0 Balance 778 / 898 480 / 480 Weight 121 lb 9.6 oz 121 lb 9.606 oz 121 lb 6.4 oz Microbiology Reports for the Last 24 Hours: Microbiology 11/29/24 22:15 Sputum - Expectorated Sputum Gram Stain - Final 11/29/24 22:15 Sputum - Expectorated Sputum Sputum Culture - Preliminary Gram Negative Rods Microbiology 11/29/24 22:15 Sputum - Expectorated Sputum Gram Stain - Final Constitutional: Present moderate distress Head: Present normocephalic and atraumatic ENT: Present normal exam, normal oropharynx and mucous membranes moist Neck: Present normal inspection and full ROM Respiratory: Present respiratory distress, rhonchi, wheezes and able to speak in complete sentences Cardiac: Present S1/S2, Tachycardia and radial pulses present GI: Present soft and distention; Absent tenderness or guarding Rectal (female): Present deferred (female): Present deferred Skin: Present intact; Absent cyanosis or jaundice Neuro: Present alert, awake and oriented x 3 Extremities: Present normal inspection; Absent clubbing or cyanosis Psychiatric: Present normal affect and cooperative Assessment and Plan *Assessment and plan (1) Acute exacerbation of chronic obstructive pulmonary disease: Status: Acute Category: Medical Code(s): J44.1 - Chronic obstructive pulmonary disease with (acute) exacerbation (2) Acute respiratory failure with hypoxia and hypercarbia: Status: Acute Category: Medical Code(s): J96.01 - Acute respiratory failure with hypoxia; J96.02 - Acute respiratory failure with hypercapnia (3) Pneumonia: Status: Acute Category: Medical Code(s): J18.9 - Pneumonia, unspecified organism (4) Lung nodule: Status: Acute Category: Medical Code(s): R91.1 - Solitary pulmonary nodule Plan Ms. Balbuena is a 69-year-old female greater than [id number] smoking history severe COPD presented today with worsening respiratory distress and weakness and pulmonary was called for further evaluation and management. CTA upon admission, spiculated nodular opacities in the right upper lobe along the minor fissure can well be airspace disease/malignant etiology. These nodules are present from her CT from April 2022 ([facility]), October 2022 and Aug 2023, increasing in size and more solid. PET from May 2021 SUV 2.2. Left lower lobe consolidative changes noted. Right upper lobe subsegmental PE noted. The noted subsegmental PE was not appreciated on her CT from October 2023 Afebrile. Hemodynamically stable. COVID-19 and flu PCR negative. Worsening leukocytosis. Currently in A-fib RVR, hemodynamically stable. Initial ABG showed hypercarbic respiratory failure with a pH of 7.28 and a PCO2 of 66.2 needing noninvasive ventilatory therapy, subsequent blood gases showed improvement Interval update: No acute respiratory events overnight. Tolerating nasal cannula and inhalers well. Sputum showing gram-negative rods. Improving leukocytosis. Plan: Advair 500 inhaler along with Spiriva along with DuoNebs every 4 as needed Continue ceftriaxone and Azithromycin pending sputum culture results, can be weaned to cefdinir to complete a total of 5-day course upon discharge Continue steroids with prednisone 40 mg daily x 5 days Continue full dose anticoagulation for the noted pulmonary embolism. Likely need indefinite anticoagulation. # For the concerning worsening right upper lobe lung nodule I extensively discussed with the patient and will likely pursue lung biopsy at this point of time given worsening size on density despite previously being PET negative. Will follow the patient in pulmonary clinic 2 to 3 weeks postdischarge
--- NOTE | 2024-12-01 10:12 | [facility].PTWOUND ---
Rehab Inpt Wound Evaluation Rehab IP Wound Evaluation Start: 11/28/24 22:36 Freq: ONCE Status: Active Protocol: Document 12/01/24 10:09 HIRO (Rec: 12/01/24 10:12 HIRO [id number]) Rehab PT Wound Assessment Subjective Subjective Per H&P This is a 69-year-old female with past medical history of COPD, chronic respiratory failure on 2 L nasal cannula at night and as needed who presents emergency department today with complaints of shortness of breath and lower extremity weakness. She reports symptoms have been progressing over the last 48 hours. She denies any chest pain. Denies any fever. Pt presented upon admission with a chronic L anterior foot wound that is being treated by podiatry on an outpatient basis. Wound Right Anterior Foot Wound Type unknown etiology. Is This a Chronic Wound Yes Wound Length (cm) 1.0 Wound Width (cm) 0.8 Wound Depth (cm) 0.2 Wound Bed Appearance Beefy Red Wound Margins Description Well Defined Surrounding Tissue Appearance [place] Rolled Wound Drainage Description Serous Drainage Amount Scant Primary Dressing Non-Adherent Gauze Pad Dressing Change Patient Tolerance Tolerated Well Plan/Recommendation Comment No current need for inpatient acute wound debridement. Recommend continue covering wound as previous per nsg and pt to follow up with podiatry after d/c from hospital. Eval Complexity Eval Charge Codes 36083 - Moderate Complexity PHYSICIAN CERTIFICATION: I certify the specified therapy services for Iqra Balbuena are required, authorized, and reviewed every 30 days.
[2024-12-01 11:09] LABS: VBG Base Excess 4.2 mmol/L (-2.4-2.3); VBG HCO3 28.7 mmol/L (23-30); VBG Oxygen Saturation 97.5 % (50-70); VBG PCO2 45.3 mmol/L (35-51); VBG PH 7.42 mmol/L (7.31-7.41); VBG PO2 96.2 mmol/L (28-40)
[2024-12-01 11:14] LABS: Lactate Venous 2.3 mmol/L (0.4-2.0)
[2024-12-01 12:00] VITALS: BP 131/70; PULSE 106; PULSE 110; RESP 18; TEMP 37.1; O2SAT 97
[2024-12-01 13:09] VITALS: PULSE 124
[2024-12-01] MEDS: 0.9 % SODIUM CHLORIDE 1000ML 500 ML IV (13:09)
[2024-12-01] MEDS: DIGOXIN 0.25MG/ML 2ML AMPUL 500 MCG IV (13:09)
[2024-12-01] MEDS: AZITHROMYCIN 250MG TABLET 500 MG PO (13:11)
--- NOTE | 2024-12-01 14:47 | EXP.DC.SUM ---
General Admission date:: 11/28/24 HPI HPI HPI: This is a 69-year-old female with past medical history of COPD, chronic respiratory failure on 2 L nasal cannula at night and as needed who presents emergency department today with complaints of shortness of breath and lower extremity weakness. She reports symptoms have been progressing over the last 48 hours. She denies any chest pain. Denies any fever. Denies any cough or congestion. Of note, she did see podiatry 2 weeks ago for foot pain. Was found to have small fracture of her left foot with poor peripheral blood flow. On arrival to the emergency department she was noted to have significant respiratory distress with bronchoconstriction and significant wheezing. She received multiple DuoNebs magnesium and Solu-Medrol with mild improvement in symptoms. Labs obtained and notable for hypercapnic respiratory failure requiring BiPAP placement. Given the above-mentioned symptoms she is admitted to hospital service Hospital Course Hospital Course Hospital Course: Iqra Balbuena is a 69-year-old female with COPD on chronic oxygen therapy, presented with COPD exacerbation and hypercapnic respiratory failure. #Acute exacerbation of chronic obstructive pulmonary disease #Acute on chronic respiratory failure with hypoxia and hypercarbia #Pulmonary emboli #Pulmonary nodules, suspected malignancy ? VBG initially showing acute hypercapnia, required BiPAP but eventually transition back to baseline 1 L nasal cannula. ? Clinically improved with ceftriaxone, azithromycin, DuoNebs, Pulmicort, Singulair, steroids. Pulmonology consulted and assisted with care. ? CTA chest showing pulmonary emboli, does have underlying suspected growing pulmonary nodule which patient has previously refused further evaluation. She is now amenable to further evaluation. Will refer to pulmonology on discharge. ? Discharged with levofloxacin, Advair, Spiriva. Will follow-up pulmonology within 2 weeks for further evaluation management of pulmonary nodules. #A-fib with RVR: ? Initially refractory to metoprolol tartrate, so started on digoxin 125 mcg with significant improvement in rate control. Currently heart rate in the 80s to 90s. ? Discharged with digoxin 125 mcg daily, Eliquis 5 mg twice daily. #Peripheral vascular disease - Sees podiatry. Had recent fracture of her left foot. Podiatry is following. Small wound to dorsum of left foot. Nickel sized with granulation tissue. Does not appear infected. Depression: Continue Cymbalta 30 mg daily, alprazolam 1 mg daily did Hypertension: Continue amlodipine 10 mg daily, Lasix 40 mg daily, losartan 100 mg daily Neuropathy: Continue gabapentin 800 mg 3 times a day Total time spent on discharge: 40 minutes on chart review, counseling, documentation, and direct care with patient. Exam Data for Last 24 hours Vital signs and Labs for Last 24 Hours: Temp Pulse Resp BP Pulse Ox O2 Del Method O2 Flow Rate 98.7 F 124 H 18 131/70 97 Nasal Cannula 2 12/01/24 12:00 12/01/24 13:09 12/01/24 12:00 12/01/24 12:00 12/01/24 12:00 12/01/24 12:00 12/01/24 12:00 FiO2 28 11/29/24 18:46 Laboratory Results - last 24 hr 12/01/24 05:29: WBC 13.4 H, RBC 3.92 L, Hgb 11.8 L, Hct 38.0, MCV 96.9, MCH 30.1, MCHC 31.1 L, RDW 14.8, Plt Count 223, MPV 10.1, Neut % (Auto) 89.1 H, Lymph % (Auto) 8.8 L, Garrett % (Auto) 1.4 L, Eos % (Auto) 0.0 L, Baso % (Auto) 0.1, Neut # (Auto) 11.9 H, Lymph # (Auto) 1.2, Garrett # (Auto) 0.2, Eos # (Auto) 0.0, Baso # (Auto) 0.0, Sodium 131 L, Potassium 4.0, Chloride 97 L, Carbon Dioxide 27, Anion Gap 11.0, BUN 32 H, Creatinine 0.90, Estimated Creat Clear 45, Estimated GFR 62, Est GFR ( Amer) 75 D, Glucose 148 H, Calcium 8.8, Magnesium 1.8, Total Bilirubin 0.4, AST 68 H D, ALT 17, Alkaline Phosphatase 81, Total Protein 6.3, Albumin 3.8, Globulin 2.5, Albumin/Globulin Ratio 1.5 12/01/24 11:01: VBG pH 7.42 H, VBG pCO2 45.3, VBG pO2 96.2 H, VBG HCO3 28.7, VBG Total CO2 30.0 H, VBG O2 Saturation 97.5 H, VBG Base Excess 4.2 H, VBG Lactic Acid 2.3 H I & O for Last 24 hours: Intake & Output 11/28/24 11/29/24 11/30/24 12/01/24 23:59 23:59 23:59 23:59 Intake Total 780 / 900 960 / 1182 942 / 942 Output Total 2 / 2 0 / 0 0 / 0 Balance 778 / 898 960 / 1182 942 / 942 Weight 55.157 kg 55.157 kg 55.066 kg 54.204 kg Microbiology Reports for the Last 24 Hours: Microbiology 11/29/24 22:15 Sputum - Expectorated Sputum Gram Stain - Final 11/29/24 22:15 Sputum - Expectorated Sputum Sputum Culture - Preliminary Gram Negative Rods Constitutional Constitutional: no acute distress and chronically ill appearing *Routine HEENT Exam Head: Present normocephalic Eye: Present EOMI and PERRL ENT: Present mucous membranes moist *Routine Neck Exam Neck: Present supple; Absent lymphadenopathy *Routine Respiratory Exam Respiratory: Present CTA bilaterally *Routine Cardiovascular Exam Cardiovascular: Present RRR *Routine Abdominal Exam Abdominal: Present soft and normoactive bowel sounds; Absent tenderness *Routine Extremities Exam Extremities: Absent cyanosis, clubbing or edema *Routine Skin Exam Skin: Present warm; Absent rash *Routine Neurological Exam Neurological: Present alert and oriented X3 Results Data Completed and Pending Labs on day of discharge: Labs from last 24 hours 12/01/24 12/01/24 11:01 05:29 WBC 13.4 H RBC 3.92 L Hgb 11.8 L Hct 38.0 MCV 96.9 MCH 30.1 MCHC 31.1 L RDW 14.8 Plt Count 223 MPV 10.1 Neut % (Auto) 89.1 H Lymph % (Auto) 8.8 L Garrett % (Auto) 1.4 L Eos % (Auto) 0.0 L Baso % (Auto) 0.1 Neut # (Auto) 11.9 H Lymph # (Auto) 1.2 Garrett # (Auto) 0.2 Eos # (Auto) 0.0 Baso # (Auto) 0.0 VBG pH 7.42 H VBG pCO2 45.3 VBG pO2 96.2 H VBG HCO3 28.7 VBG Total CO2 30.0 H VBG O2 Saturation 97.5 H VBG Base Excess 4.2 H VBG Lactic Acid 2.3 H Sodium 131 L Potassium 4.0 Chloride 97 L Carbon Dioxide 27 Anion Gap 11.0 BUN 32 H Creatinine 0.90 Estimated Creat Clear 45 Estimated GFR 62 Est GFR ( Amer) 75 D Glucose 148 H Calcium 8.8 Magnesium 1.8 Total Bilirubin 0.4 AST 68 H D ALT 17 Alkaline Phosphatase 81 Total Protein 6.3 Albumin 3.8 Globulin 2.5 Albumin/Globulin Ratio 1.5 Preliminary micro results at discharge 11/29/24 22:15 Sputum Culture - Preliminary Sputum - Expectorated Sputum Gram Negative Rods DS: Diagnosis Discharge Diagnosis (1) Acute exacerbation of chronic obstructive pulmonary disease: Status: Acute Code(s): J44.1 - Chronic obstructive pulmonary disease with (acute) exacerbation (2) Acute respiratory failure with hypoxia and hypercarbia: Status: Acute Code(s): J96.01 - Acute respiratory failure with hypoxia; J96.02 - Acute respiratory failure with hypercapnia (3) Pneumonia: Status: Acute Code(s): J18.9 - Pneumonia, unspecified organism (4) Lung nodule: Status: Acute Code(s): R91.1 - Solitary pulmonary nodule Meds Home Medications and Allergies Home Medications ?Medication ?Instructions ?Recorded ?Confirmed ?Type albuterol sulfate 90 mcg/actuation 2 inh inhalation Q6H 04/15/24 12/12/24 History aerosol inhaler alprazolam 1 mg tablet 1 mg PO BID 04/15/24 12/12/24 History calcium 600 mg (as 1 tab PO BIDWMEAL 04/15/24 12/12/24 History carbonate)-vitamin D3 5 mcg (200 unit) tablet celecoxib 50 mg capsule 50 mg PO DAILY 04/15/24 12/12/24 History cholecalciferol (vitamin D3) 1,250 1,250 mcg PO WEEKLY 04/15/24 12/12/24 History mcg (50,000 unit) capsule duloxetine 30 mg capsule,delayed 30 mg PO DAILY 04/15/24 12/12/24 History release gabapentin 800 mg tablet 800 mg PO TID 04/15/24 12/12/24 History losartan 100 mg tablet 100 mg PO DAILY 04/15/24 12/12/24 History montelukast 10 mg tablet 10 mg PO PM 04/15/24 12/12/24 History potassium chloride 20 mEq 20 meq PO BID 04/15/24 12/12/24 History tablet,extended release(part/cryst) amlodipine 10 mg tablet 10 mg PO DAILY #30 tabs 04/16/24 12/12/24 Rx furosemide 40 mg tablet 40 mg PO DAILY 30 days #30 tabs 08/16/24 12/12/24 Rx magnesium gluconate 27 mg 27 mg PO DAILY 11/29/24 12/12/24 History magnesium (500 mg) tablet plecanatide 3 mg tablet (Trulance) 3 mg PO DAILY 11/29/24 12/12/24 History apixaban 5 mg (74 tabs) tablets in 5 mg PO BID #74 tabs 12/01/24 12/12/24 Rx a dose pack (Eliquis DVT-PE Treat 30D Start) digoxin 125 mcg (0.125 mg) tablet 125 mcg PO DAILY #30 tabs 12/01/24 12/12/24 Rx fluticasone 500 mcg-salmeterol 50 1 inh inhalation BIDRT 30 days #60 12/01/24 12/12/24 Rx mcg/dose blistr powdr for ea inhalation (Advair Diskus) ipratropium 0.5 mg-albuterol 3 mg 3 ml inhalation Q4HP PRN Shortness 12/01/24 12/12/24 Rx (2.5 mg base)/3 mL nebulization Of Breath Or Wheezing 30 days #90 soln mL metoprolol succinate 100 mg 100 mg PO HS 30 days #30 tabs 12/01/24 12/12/24 Rx tablet,extended release 24 hr levofloxacin 750 mg tablet 750 mg PO DAILY 3 days #2 tabs 12/14/24 Rx New Prescriptions to Start Prescriptions: Earlis DVT-PE Treat 30D Start Sulaiman Butt digoxin Sulaiman Butt fluticasone propion-salmeterol [Advair Diskus] Sulaiman Butt ipratropium-albuterol Sulaiman Butt metoprolol succinate Sulaiman Butt Allergies Allergy/AdvReac Type Severity Reaction Status Date / Time No Known Allergies Allergy Verified 11/17/24 15:18 Discharge Plan Disposition Patient Disposition: Home Health Service Condition: Fair Discharge Order Discharge Orders: Discharge Order (Routine); Ordered 12/01/24 Ordered By: Sulaiman Butt Follow up Plan Follow up with: Juliette Lazo APRN [Nurse Practitioner, Cardiology] - 12/15/24 9:45 am Olga (ED)Stephanie APRN [Nurse Practitioner, Emergency Medicine] - 12/08/24 10:00 am Ghulam Renteria MD [Staff Physician, Oncology] - Enter time for follow up Referral Note: PLEASE CALL OFFICE FOR FOLLOW UP Srini Gan MD [Physician, Pulmonology] - 12/22/24 1:00 pm Prescriptions/Medication Reconciliation: New metoprolol succinate 100 mg Tablet Extended Release 24 Hr 100 mg PO HS 30 Days Qty: 30 0RF fluticasone propion-salmeterol [Advair Diskus] 500-50 mcg/dose Blister With Device 1 inh inhalation BIDRT 30 Days Qty: 60 0RF ipratropium-albuterol 0.5 mg-3 mg(2.5 mg base)/3 mL Solution For Nebulization 3 ml inhalation Q4HP PRN (Reason: Shortness Of Breath Or Wheezing) 30 Days Qty: 90 0RF Eliquis DVT-PE Treat 30D Start 5 mg (74 tabs) tablets,dose pack 5 mg PO BID Qty: 74 0RF digoxin 125 mcg (0.125 mg) tablet 125 mcg PO DAILY Qty: 30 0RF Continued furosemide 40 mg tablet 40 mg PO DAILY 30 Days Qty: 30 0RF alprazolam 1 mg tablet 1 mg PO BID montelukast 10 mg tablet 10 mg PO PM losartan 100 mg tablet 100 mg PO DAILY celecoxib 50 mg capsule 50 mg PO DAILY duloxetine 30 mg capsule,delayed release(DR/EC) 30 mg PO DAILY calcium carbonate-vitamin D3 600 mg-5 mcg (200 unit) tablet 1 tab PO BIDWMEAL gabapentin 800 mg tablet 800 mg PO TID cholecalciferol (vitamin D3) 1,250 mcg (50,000 unit) capsule 1,250 mcg PO WEEKLY albuterol sulfate 90 mcg/actuation HFA aerosol inhaler 2 inh INHALATION Q6H potassium chloride 20 mEq tablet,ER particles/crystals 20 meq PO BID Rx Instructions: with food amlodipine 10 mg Tablet 10 mg PO DAILY Qty: 30 0RF magnesium gluconate 27 mg magnesium (500 mg) tablet 27 mg PO DAILY Patient Comments: TAKE ONE TABLET BY MOUTH ONCE A DAY Trulance 3 mg tablet 3 mg PO DAILY Discontinued Trelegy Ellipta 100-62.5-25 mcg blister with device 1 inh inhalation DAILY Qty: 60 0RF No Action levofloxacin 750 mg tablet 750 mg PO DAILY 3 Days Qty: 2 0RF Rx Instructions: first dose 12/15/24 Problem Reconciliation Problems Reviewed?: Yes Patient Discharge Instructions Patient Instructions: DI for Chronic Obstructive Pulmonary Disease, DI for Respiratory Failure, Stop Light COPD Print Language: Armenian Providers Primary Care Provider: Provider,Referral Admit Provider: Teja Blair Attending Provider: Teja Blair
[2024-12-01 15:14] LABS: Reflex Lactic Add Lactic Reflex
--- NOTE | 2024-12-02 10:23 | SW/DCPLANNER ---
Spoke with patient on the phone. Patient stated that she is doing good. 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 Patient stated that she is aware of her upcoming appointments and that she wrote them down when we were going over them. Patient stated she has no concerns or questions at this time. Leonel Thomas
== END 2024-12-01 16:02 | disposition home or self-care (01) | DRG 190 ==
LOC: ER 18:00 → ICU 20:55 → 2ND 22:09 → ICU 11-29 14:26
PROVIDERS: Internal Medicine Pulmonary Disease; Nurse Practitioner Acute Care; Admitting Provider Internal Medicine Adolescent Medicine; Emergency Provider Emergency Medicine; Visit Provider Internal Medicine Adolescent Medicine
DX: J44.1 Chronic obstructive pulmonary disease with (acute) exacerbation (principal); I26.99 Other pulmonary embolism without acute cor pulmonale; J96.22 Acute and chronic respiratory failure with hypercapnia; J96.21 Acute and chronic respiratory failure with hypoxia; J18.9 Pneumonia, unspecified organism; R91.1 Solitary pulmonary nodule; I48.91 Unspecified atrial fibrillation; I73.9 Peripheral vascular disease, unspecified; F32.A Depression, unspecified; I10 Essential (primary) hypertension; G62.9 Polyneuropathy, unspecified; F17.210 Nicotine dependence, cigarettes, uncomplicated; J44.0 Chronic obstructive pulmonary disease with (acute) lower respiratory infection; S91.302A Unspecified open wound, left foot, initial encounter; Y92.239 Unspecified place in hospital as the place of occurrence of the external cause; T38.0X5A Adverse effect of glucocorticoids and synthetic analogues, initial encounter; Z99.81 Dependence on supplemental oxygen; Z79.899 Other long term (current) drug therapy; X58.XXXA Exposure to other specified factors, initial encounter
CPT/HCPCS: 36415; 71045; 71275; 80053; 82803; 83605; 83735; 84145; 84484; 85025; 85378; 87070; 87077; 87186; 87205; 87636; 93005; 94640; 94761; 97110; 97116; 97162; 97166; 99291; J0456; J0696; J1160; J1644; J1650; J2919; J3475; J7030; J7050; J7614; Q9967

== ENCOUNTER 2024-12-11 15:37 | Inpatient (IN) | payer MEDICARE, SELFPAY ==
[2024-12-11] VITALS (19 sets, daily range): BP systolic 94–139; BP diastolic 49–71; PULSE 82–113; RESP 15–40; TEMP 36.6–37.6; O2SAT 85–98; BMI 22.8; BMI 24.2
--- NOTE | 2024-12-11 15:45 | ECG_ITS ---
APPROVED REPORT Exam: Resting ECG HR:111 bpm ECG Measurements Heart Rate 111 AXES IA 128 P 74 QRSd 88 QRS -71 QT 271 T 104 QTc 337 Conclusion SINUS TACHYCARDIA LEFT AXIS DEVIATION [QRS AXIS < -30] No STEMI Electronically signed by : ADRIAN HENDRIX, 12/12/2024 00:26:45
--- NOTE | 2024-12-11 15:47 | XR_ITS ---
FINAL REPORT CLINICAL HISTORY: soa COMPARISON: 11/28/2024 FINDINGS: SINGLE VIEW CHEST The heart is normal in size. The mediastinum is unremarkable. The patient is rotated to the left. There is abnormal airspace opacity throughout the left perihilar region and left base, probably due to acute pneumonia. Finding is new since previous. There is no pneumothorax. IMPRESSION: Acute pneumonia. Reviewed, Interpreted and Dictated by Eliel Moreno MD Transcribed by Em Rodríguez Authenticated and . [facility]
--- NOTE | 2024-12-11 15:49 | HMH.EDGENADL ---
Discharge Plan Disposition Patient Disposition: Admitted Condition: Fair Prescriptions Prescriptions: No Action ipratropium-albuterol 0.5 mg-3 mg(2.5 mg base)/3 mL solution for nebulization 3 ml INHALATION QIDP PRN (Reason: Shortness Of Breath) furosemide 40 mg tablet 40 mg PO DAILY 30 Days Qty: 30 0RF alprazolam 1 mg tablet 1 mg PO BID montelukast 10 mg tablet 10 mg PO PM losartan 100 mg tablet 100 mg PO DAILY celecoxib 50 mg capsule 50 mg PO DAILY duloxetine 30 mg capsule,delayed release(DR/EC) 30 mg PO DAILY calcium carbonate-vitamin D3 600 mg-5 mcg (200 unit) tablet 1 tab PO BIDWMEAL gabapentin 800 mg tablet 800 mg PO TID cholecalciferol (vitamin D3) 1,250 mcg (50,000 unit) capsule 1,250 mcg PO WEEKLY albuterol sulfate 90 mcg/actuation HFA aerosol inhaler 2 inh INHALATION Q6H potassium chloride 20 mEq tablet,ER particles/crystals 20 meq PO BID Rx Instructions: with food amlodipine 10 mg Tablet 10 mg PO DAILY Qty: 30 0RF magnesium gluconate 27 mg magnesium (500 mg) tablet 27 mg PO DAILY Patient Comments: TAKE ONE TABLET BY MOUTH ONCE A DAY Trulance 3 mg tablet 3 mg PO DAILY metoprolol succinate 100 mg Tablet Extended Release 24 Hr 100 mg PO HS 30 Days Qty: 30 0RF fluticasone propion-salmeterol [Advair Diskus] 500-50 mcg/dose Blister With Device 1 inh inhalation BIDRT 30 Days Qty: 60 0RF tiotropium bromide [Spiriva with HandiHaler] 18 mcg Capsule, W/Inhalation Device 1 cap inhalation DAILY Qty: 1 0RF ipratropium-albuterol 0.5 mg-3 mg(2.5 mg base)/3 mL Solution For Nebulization 3 ml inhalation Q4HP PRN (Reason: Shortness Of Breath Or Wheezing) 30 Days Qty: 90 0RF prednisone 20 mg tablet 20 mg PO DAILY 1 Days Qty: 1 0RF Eliquis DVT-PE Treat 30D Start 5 mg (74 tabs) tablets,dose pack 5 mg PO BID Qty: 74 0RF digoxin 125 mcg (0.125 mg) tablet 125 mcg PO DAILY Qty: 30 0RF levofloxacin 750 mg tablet 750 mg PO DAILY 5 Days Qty: 5 0RF Referrals Follow up/Referrals: Stephanie Espinoza APRN [Primary Care Provider, Medical] - See instructions Clinical Impressions Clinical Impression: Sepsis due to pneumonia, Acute and chronic respiratory failure with hypoxia, Acute exacerbation of chronic obstructive pulmonary disease Print Language Print Language: Arabic Discharge ED Provider: Felicia Owen General Adult HPI General Chief complaint: Shortness of Breath/Dyspnea Stated complaint: Can't catch breath, shaky, weak Time Seen by Provider: 12/11/24 15:42 History of Present Illness HPI narrative: This patient is a 69-year-old female with a history of COPD on supplemental oxygen at night and PRN during the daytime, recent diagnosis of PE now on Eliquis, tobacco abuse, lung lesions, chronic spine fractures, spiculated pulmonary nodules noted on CT scan 11/30/2024 presenting to the emergency department for evaluation concern for shortness of breath. According to family, she was doing fine yesterday and had even gone to her primary care provider's office and was able to walk in without any issue. Today, however, she slept until around 11am and woke up short of breath. She states she is having some back pain that is chronic but no other complaints of pain. She arrives in respiratory distress on 4 L nasal cannula satting in the low 80s. Family states that they noted she was satting in the 70s on 3 L that they had placed her on when they noted she was short of breath. No other concerns or complaints noted at this time, but history is limited given acuity of condition. Related Data Home Medications ?Medication ?Instructions ?Recorded ?Confirmed ipratropium 0.5 mg-albuterol 3 mg 3 ml inhalation QIDP PRN Shortness 07/03/21 11/29/24 (2.5 mg base)/3 mL nebulization Of Breath soln albuterol sulfate 90 mcg/actuation 2 inh inhalation Q6H 04/15/24 11/29/24 aerosol inhaler alprazolam 1 mg tablet 1 mg PO BID 04/15/24 11/29/24 calcium 600 mg (as 1 tab PO BIDWMEAL 04/15/24 11/29/24 carbonate)-vitamin D3 5 mcg (200 unit) tablet celecoxib 50 mg capsule 50 mg PO DAILY 04/15/24 11/29/24 cholecalciferol (vitamin D3) 1,250 1,250 mcg PO WEEKLY 04/15/24 11/29/24 mcg (50,000 unit) capsule duloxetine 30 mg capsule,delayed 30 mg PO DAILY 04/15/24 11/29/24 release gabapentin 800 mg tablet 800 mg PO TID 04/15/24 11/29/24 losartan 100 mg tablet 100 mg PO DAILY 04/15/24 11/29/24 montelukast 10 mg tablet 10 mg PO PM 04/15/24 11/29/24 potassium chloride 20 mEq 20 meq PO BID 04/15/24 11/29/24 tablet,extended release(part/cryst) magnesium gluconate 27 mg 27 mg PO DAILY 11/29/24 11/29/24 magnesium (500 mg) tablet plecanatide 3 mg tablet (Trulance) 3 mg PO DAILY 11/29/24 11/29/24 Previous Rx's ?Medication ?Instructions ?Recorded amlodipine 10 mg tablet 10 mg PO DAILY #30 tabs 04/16/24 furosemide 40 mg tablet 40 mg PO DAILY 30 days #30 tabs 08/16/24 apixaban 5 mg (74 tabs) tablets in 5 mg PO BID #74 tabs 12/01/24 a dose pack (Genoom DVT-PE Treat 30D Start) digoxin 125 mcg (0.125 mg) tablet 125 mcg PO DAILY #30 tabs 12/01/24 fluticasone 500 mcg-salmeterol 50 1 inh inhalation BIDRT 30 days #60 12/01/24 mcg/dose blistr powdr for ea inhalation (Advair Diskus) ipratropium 0.5 mg-albuterol 3 mg 3 ml inhalation Q4HP PRN Shortness 12/01/24 (2.5 mg base)/3 mL nebulization Of Breath Or Wheezing 30 days #90 soln mL metoprolol succinate 100 mg 100 mg PO HS 30 days #30 tabs 12/01/24 tablet,extended release 24 hr prednisone 20 mg tablet 20 mg PO DAILY 1 day #1 tab 12/01/24 tiotropium bromide 18 mcg capsule 1 cap inhalation DAILY #1 puff 12/01/24 with inhalation device (Spiriva with HandiHaler) levofloxacin 750 mg tablet 750 mg PO DAILY 5 days #5 tabs 12/03/24 Allergies Allergy/AdvReac Type Severity Reaction Status Date / Time No Known Allergies Allergy Verified 11/17/24 15:18 [facility] Disclaimer: The information contained in this section may have been updated after the patient was seen, as this information can be updated by other users. Medical History Pneumonia Fecal occult blood test positive Sepsis without septic shock Lymphedema Physical deconditioning General weakness Lung mass Hypomagnesemia Acute hypokalemia Chronic hyponatremia Generalized weakness COPD mixed type Lung nodule Hypokalemia Elevated troponin COPD (chronic obstructive pulmonary disease) Nocturnal hypoxemia Pulmonary emphysema Incidental pulmonary nodule, greater than or equal to 8mm Smoking greater than 30 pack years Dyspnea on exertion Tobacco abuse disorder Tobacco abuse counseling COPD (chronic obstructive pulmonary disease) Cervical cancer Surgical History History of dilation and curettage History of back surgery Family History Diabetes Social History Smoking Status: Current every day smoker tobacco type: cigarettes packs per day: 2 second hand exposure: Yes alcohol intake: current alcohol intake frequency: 0-2 drinks per day current occupational status: unemployed Travel in the last 8 weeks?: None household members: spouse housing: house current occupational exposures/hazards: No Have you lived/traveled outside [place] in past 30 days?: No Contact w/someone who lives/traveled outside [place] past 30 days?: No Exposure to someone with infectious disease in past 14 days?: No Do you have a fever (greater than 100.4 F or 38 C)?: No Have you tested positive for COVID-19?: No Exposed to someone with COVID-19 in past 14 days?: No Do you have a sore throat?: No Do you have a cough?: No Do you have any weakness?: Yes Do you have any diarrhea?: No Are you experiencing any unusual bleeding?: No Do you have any muscle aches/pain?: No Do you have any abdominal pain?: No Are you experiencing loss of taste or smell?: No Other Medical History Have you received the Flu Vaccine for this season: No Have you received the Pneumonia Vaccine: No ROS Obtained: Yes All systems reviewed & no additional complaints except as documented Physical Exam General General appearance: alert and in distress Comment: In respiratory distress Head Head exam: atraumatic and normocephalic Eye Eye exam: Present normal appearance, PERRL and EOMI ENT ENT exam: Present mucous membranes dry and normal external ear exam Neck Neck exam: Present normal inspection, full ROM and trachea midline; Absent tenderness Chest Chest inspection: Present normal inspection and symmetric chest wall rise; Absent tenderness Respiratory Respiratory exam: Present respiratory distress, wheezes, accessory muscle use, prolonged expiratory phase and other (Significantly diminished breath sounds bilaterally with faint wheezing noted); Absent stridor Cardiovascular Cardiovascular exam: Present normal rhythm and tachycardia Abdominal Exam Abdominal exam: Present soft; Absent distention, tenderness or guarding Extremities Exam Extremities exam: Present normal inspection, full ROM and normal capillary refill; Absent tenderness or edema Back Exam Back exam: Present normal inspection and full ROM; Absent tenderness Neurological Exam Neurological exam: Present alert, oriented X3, CN II-XII intact and other (Generally weak without any focal deficit); Absent motor sensory deficit Psychiatric Psychiatric exam: Present anxious Skin Skin exam: Present warm and dry Medical Decision Making Medical Records Medical records reviewed: Yes I reviewed the patient's medical records. Screening: Per USPSTF and CDC recommendations, given the prevalence of disease in our region, it is our hospital?s policy to screen for HIV and viral Hepatitis for all patients aged 18 and over and those with ongoing risk factors. Azael Inquiry Pt receiving controlled substance: No Vital Signs: 12/11/24 15:48 12/11/24 15:51 12/11/24 15:55 Temperature 99.7 F H Temperature Source Oral Pulse Rate 108 H Pulse Rate [Right] 113 H Respiratory Rate 24 40 H Blood Pressure 121/66 Blood Pressure [Right Arm] 121/66 Blood Pressure Mean [Right Arm] 84 Blood Pressure Source [Right Arm] Automatic Cuff Blood Pressure Position [Right Arm] Supine 02 Sat by Pulse Oximetry 96 85 L Oxygen Delivery Method BiPAP Nasal Cannula Oxygen Flow Rate (LPM) 3 Fraction of Inspired Oxygen 40 12/11/24 15:55 12/11/24 15:55 12/11/24 15:55 Temperature Temperature Source Pulse Rate 106 H 102 H Pulse Rate [Right] Respiratory Rate Blood Pressure Blood Pressure [Right Arm] Blood Pressure Mean [Right Arm] Blood Pressure Source [Right Arm] Blood Pressure Position [Right Arm] 02 Sat by Pulse Oximetry 94 L Oxygen Delivery Method BiPAP Oxygen Flow Rate (LPM) Fraction of Inspired Oxygen 40 12/11/24 16:00 Temperature Temperature Source Pulse Rate 106 H Pulse Rate [Right] Respiratory Rate 27 H Blood Pressure 97/58 L Blood Pressure [Right Arm] Blood Pressure Mean [Right Arm] Blood Pressure Source [Right Arm] Blood Pressure Position [Right Arm] 02 Sat by Pulse Oximetry 98 Oxygen Delivery Method BiPAP Oxygen Flow Rate (LPM) Fraction of Inspired Oxygen Lab Data Lab results reviewed: Yes I reviewed the patient's lab results. Lab Results 12/11/24 15:47: WBC 29.8 H*, RBC 4.63, Hgb 13.5, Hct 43.7, MCV 94.4, MCH 29.2, MCHC 30.9 L, RDW 14.9, Plt Count 240, MPV 9.1, Neut % (Auto) 91.6 H, Lymph % (Auto) 4.6 L, [place] % (Auto) 2.7, Eos % (Auto) 0.0 L, Baso % (Auto) 0.4, Neut # (Auto) 27.3 H, Lymph # (Auto) 1.4, [place] # (Auto) 0.8, Eos # (Auto) 0.0, Baso # (Auto) 0.1, PT 11.4, INR 1.03, APTT 28.8, Sodium 133 L, Potassium 4.3, Chloride 93 L, Carbon Dioxide 35 H, Anion Gap 9.3, BUN 16, Creatinine 1.10 H, Estimated Creat Clear 43, Estimated GFR 49 L, Est GFR ( Amer) 60, Glucose 101 H, Calcium 9.2, Total Bilirubin 0.6, AST 28, ALT 18, Alkaline Phosphatase 58, Troponin I 0.05 H, C-Reactive Protein 50.1 H, NT-Pro-B Natriuret Pep 1620 H, Total Protein 6.5, Albumin 4.0, Globulin 2.5, Albumin/Globulin Ratio 1.6, TSH 1.90, Thyroxine (T4) 7.8 12/11/24 15:53: SARS-CoV-2 (PCR) Not detected, Influenza A Untype (PCR) Not detected, Influenza Type B (PCR) Not detected 12/11/24 15:54: VBG pH 7.36, VBG pCO2 50.8, VBG pO2 49.0 H, VBG HCO3 27.7, VBG Total CO2 29.3 H, VBG O2 Saturation 84.5 H, VBG Base Excess 2.2, VBG Lactic Acid 2.6 H 12/11/24 15:47 12/11/24 15:47 Orders (Tests/Meds): ED MEDICATIONS Generic Name Dose Route Start Last Admin Trade Name Anatoly PRN Reason Stop Dose Admin Acetaminophen 650 mg 12/11/24 16:42 Acetaminophen 325mg Tab PO 01/10/25 16:41 Q4HP PRN Fever or Mild Pain (1-3) Vancomycin HCl 1,000 mg/ 250 mls @ 125 mls/hr 12/11/24 16:15 Sodium Chloride IV 12/11/24 18:14 ONCE ONE Lactated Ringer's 1,000 mls @ 999 mls/hr 12/11/24 16:27 Lactated Ringer's 1000 Ml Bag IV 12/11/24 17:27 .Q1H1M ONE Azithromycin 500 mg/ Sodium 250 mls @ 250 mls/hr 12/12/24 09:00 Chloride IV 12/22/24 08:59 DAILY VICENTE Cefepime HCl 2 gm/ Sodium 100 mls @ 200 mls/hr 12/11/24 23:45 Chloride IV 12/21/24 23:44 Q8H VICENTE Miscellaneous 1 each 12/11/24 16:15 12/11/24 16:45 Vancomycin Consult Request NOTAPPLIC 01/10/25 16:14 1 each CONSULT PHARMACY VICENTE Administration Sodium Chloride 3 ml 12/11/24 16:03 Sodium Chloride 3% 15ml Neb 01/10/25 16:02 ONCE PRN INDUCE SPUTUM COLLECTION Discontinued Medications Generic Name Dose Route Start Last Admin Trade Name Anatoly PRN Reason Stop Dose Admin Albuterol/Ipratropium 9 ml 12/11/24 15:45 12/11/24 15:51 Ipratropium/Albuterol 3 Ml Neb IH 12/11/24 15:46 9 ml ONCE ONE Administration Magnesium Sulfate 2 gm in 50 mls @ 50 mls/hr 12/11/24 15:45 12/11/24 16:03 Magnesium Sulfate 2gm/50ml Premix IV 12/11/24 16:44 50 mls/hr ONCE ONE Administration Lactated Ringer's 500 mls @ 999 mls/hr 12/11/24 16:02 Lactated Ringer's 500ml IV 12/11/24 16:32 .Q31M ONE Cefepime HCl 2 gm/ Sodium 100 mls @ 200 mls/hr 12/11/24 16:02 Chloride IV 12/11/24 16:31 ONCE ONE Azithromycin 500 mg/ Sodium 250 mls @ 250 mls/hr 12/11/24 16:02 Chloride IV 12/11/24 16:03 ONCE ONE Iopamidol 70 ml 12/11/24 16:25 12/11/24 16:26 Iopamidol-370 (76%);100ml Bottle IV 12/11/24 16:26 70 ml ONCE ONE Administration Methylprednisolone Sodium Succinate 125 mg 12/11/24 15:45 12/11/24 16:03 Methylprednisolone Sod Succ 125mg Vial IV 12/11/24 15:46 125 mg ONCE ONE Administration Sodium Chloride 10 ml 12/11/24 16:25 12/11/24 16:26 Sodium Chloride 0.9% 10ml Syr (Rad Only) IV 12/11/24 16:26 10 ml ONCE ONE Administration Sodium Chloride 50 ml 12/11/24 16:25 12/11/24 16:26 0.9 % Sodium Chloride 50 Ml Vial IV 12/11/24 16:26 50 ml ONCE ONE Administration ORDERS Category Date Time Status CTA Chest [CT angio chest PE protocol] Stat Cat Scan 12/11/24 16:03 Taken CXR --portable [XR chest portable] Stat Exams 12/11/24 15:47 Completed BNP [NT Pro Brain Natriuretic Pep.] Stat Lab 12/11/24 15:47 Completed CRP [C-Reactive Protein] Stat Lab 12/11/24 15:47 Completed Complete Blood Count Auto Diff AMLAB Lab 12/12/24 06:00 Ordered Complete Blood Count Auto Diff Stat Lab 12/11/24 15:47 Results Comprehensive Metabolic Panel AMLAB Lab 12/12/24 06:00 Ordered Comprehensive Metabolic Panel Stat Lab 12/11/24 15:47 Completed Magnesium AMLAB Lab 12/12/24 06:00 Ordered PT INR [Prothrombin Time INR] Stat Lab 12/11/24 15:47 Completed PTT [Activated Partial Thrombo Time] Stat Lab 12/11/24 15:47 Completed Rapid PCR Covid and Flu A/B Stat Lab 12/11/24 15:53 Completed T4 (Thyroxine) Stat Lab 12/11/24 15:47 Completed TSH [Thyroid Stimulating Hormone] Stat Lab 12/11/24 15:47 Completed Trop I [Troponin I] Stat Lab 12/11/24 15:47 Completed Troponin I Q3H Lab 12/11/24 18:45 Ordered Troponin I Q3H Lab 12/11/24 21:45 Ordered Blood Culture Stat Micro 12/11/24 15:47 Received Sputum Culture & Gram Stain Stat Micro 12/11/24 16:03 Ordered VBG [Venous Blood Gas] Stat RT 12/11/24 15:54 Completed ECG Data Tracing #1: I reviewed this ECG and interpreted as documented below: Sinus tachycardia with a ventricular to 111 bpm. Left axis deviation. Nonspecific ST/T wave change without acute STEMI ECG initial impression date: 12/11/24 ECG initial impression time: 15:47 Medical Decision Narrative: In summary, this patient is a 69-year-old female presenting to the Emergency Department for evaluation of shortness of breath. Differential diagnoses considered include but are not limited to COPD exacerbation, respiratory failure, hypercarbia, pneumonia, PE, CHF. Ruling out the most morbid conditions drove assessment. It should be noted patient's history includes COPD, tobacco dependence, PE, lung lesions which are not at goal therapy. This complicates all aspects of care by increasing patient's risk for morbidity. I reviewed patient's past medical records and noted recent admission as detailed in HPI. She was admitted for acute on chronic respiratory failure in the setting of COPD, was found to have small PE for which she was treated with Eliquis, and also was found to have spiculated lung lesions. She did have positive sputum cultures and was treated with Rocephin and azithromycin. She was discharged on antibiotics and a short course of prednisone. On exam, the patient is in acute distress with significant increased work of breathing and significantly diminished breath sounds bilaterally. She is hypoxic, even on 4 L nasal cannula with an O2 saturation of 80% with a good pleth. For stabilization, patient was given DuoNebs x 3 as well as IV methylprednisolone, IV magnesium, and she was placed on BiPAP given her severe respiratory failure and known history of CO2 retention. Workup included lab evaluation to evaluate for infectious, metabolic, cardiac derangements that could have precipitated her current presentation as well as stat portable chest x-ray. EKG obtained is reassuring without acute STEMI.. I independently interpreted chest x-ray prior to the radiologist read and noted significant left consolidation concerning for acute pneumonia, worse from prior x-ray. Please see their read for final interpretation. To further assess given recent PE, I ordered a CTA PE protocol. I independently interpreted CTA PE protocol and noted no PE, but she does have significant left-sided consolidation concerning for pneumonia. Labs were obtained that demonstrated significant leukocytosis and elevation in inflammatory markers consistent with infection. BNP is mildly elevated but not as high as previous. Troponin is mildly elevated without STEMI on EKG. I suspect this is likely related to her respiratory failure. Kidney function is slightly worse than her baseline but not significantly. She has chronic hyponatremia. Patient was given 1.5 L for sepsis bolus as opposed to a full sepsis bolus per body weight, as I feel that volume overload would be detrimental to her in the setting of respiratory failure. She did well on BiPAP with normal O2 saturation and improvement in her work of breathing. Given recent antibiotic/inpatient evaluation, I started the patient on IV vancomycin, cefepime, and azithromycin. Cultures were sent and are pending. Given sepsis in the setting of pneumonia and respiratory failure, I feel the patient would benefit from admission. I had an interactive discussion with the hospitalist who admitted the patient in improved condition Critical Care Critical Care Time Critical Care Time: Yes Attestation: On 12/11/24, the high probability of a clinically significant, sudden or life threatening deterioration of the following system(s) required my full and direct attention, intervention and personal management. The time I documented below is in addition to time spent performing reported procedures but includes the following listed in this critical care notation. Total Time Total Critical Care Time: 45
[2024-12-11] MEDS: IPRATROPIUM/ALBUTEROL 3 ML NEB 9 ML IH (15:51)
--- NOTE | 2024-12-11 15:53 | PC.NURSE ---
RESPIRATORY AT [facility] PLACING PT ON BIPAP
--- NOTE | 2024-12-11 15:54 | PC.NURSE ---
BLUE BAND PLACED ON PT AFTER OBTAINED BOTH SETS OF CULTURES
--- NOTE | 2024-12-11 15:55 | PC.NURSE ---
XRAY AT [facility]
[2024-12-11 15:58] LABS: VBG Base Excess 2.2 mmol/L (-2.4-2.3); VBG HCO3 27.7 mmol/L (23-30); VBG Oxygen Saturation 84.5 % (50-70); VBG PH 7.36 mmol/L (7.31-7.41); VBG Total CO2 29.3 mmol/L (23-27)
[2024-12-11 16:00] LABS: Lactate Venous 2.6 mmol/L (0.4-2.0); VBG PCO2 50.8 mmol/L (35-51)
[2024-12-11 16:01] LABS: Coronavirus 19, PCR Not Detected (NotDetected); Influenza A, PCR Not Detected (NotDetected); Influenza B, PCR Not Detected (NotDetected)
[2024-12-11] MEDS: MAGNESIUM SULFATE IN WATER 2 GM/50 ML PIGGYBACK IV (16:03)
[2024-12-11] MEDS: METHYLPREDNISOLONE SOD SUCC 125MG VIAL 125 MG IV (16:03)
--- NOTE | 2024-12-11 16:03 | CT_ITS ---
PROCEDURE INFORMATION: Exam: CTA Chest With Contrast Exam date and time: 12/11/2024 4:26 PM Age: 69 years old Clinical indication: Other: Resp failure, recent pe TECHNIQUE: Imaging protocol: Computed tomographic angiography of the chest with contrast. Exam focused on the arteries. 3D rendering (Not supervised by radiologist): MIP and/or 3D reconstructed images were created by the technologist. Radiation optimization: All CT scans at this facility use at least one of these dose optimization techniques: automated exposure control; mA and/or kV adjustment per patient size (includes targeted exams where dose is matched to clinical indication); or iterative reconstruction. Contrast material: ISO 370; Contrast volume: 70 ml; Contrast route: INTRAVENOUS (IV); COMPARISON: CT ANGIO CHEST PE PROTOCOL 11/30/2024 1:24 AM FINDINGS: Limitations: Study is technically limited due to motion artifact. Pulmonary arteries: Pulmonary vasculature is adequately opacified without filling defects or other evidence of acute pulmonary embolism. Aorta: Unremarkable. No aortic aneurysm. No aortic dissection. Lungs: COPD with upper lobe emphysematous changes. There is 2 cm spiculated nodule right upper lobe with 2 adjacent smaller satellite nodules redemonstrated unchanged possibly malignant in nature. Interval development of diffuse scattered peribronchial infiltrates within the left perihilar and lower lobe region consistent with pneumonia. Pleural spaces: Unremarkable. No pneumothorax. No pleural effusion. Heart: Heart is mildly enlarged. Mild calcification of coronary arteries. Small pericardial effusion. Lymph nodes: Unremarkable. No enlarged lymph nodes. Bones/joints: Multiple chronic compression fractures lower thoracic and upper lumbar spine treated with vertebroplasty redemonstrated. No acute bony abnormalities. Soft tissues: Unremarkable. IMPRESSION: 1. Negative CT angiogram of the chest. No evidence of acute pulmonary embolism. 2. Interval development of diffuse scattered peribronchial infiltrates left lung consistent with pneumonia. 3. COPD with stable stellate shaped 2 cm lung lesion right upper lobe with adjacent smaller circumscribed nodules concerning for malignancy.
[2024-12-11 16:05] LABS: Basophils # 0.1 K/mm3 (0-0.2); Basophils % 0.4 % (0.1-2.0); Hematocrit 43.7 % (37.0-47.0); Hemoglobin 13.5 g/dL (12.2-16.2); Immature Granulocytes # 0.22 10^3uL; Immature Granulocytes % 0.7 %; Lymphocytes # 1.4 K/mm3 (0.7-4.5); Lymphocytes % 4.6 % (10-50); Mean Corpuscular HGB Conc 30.9 g/dL (31.8-35.4); Mean Corpuscular Hemoglobin 29.2 pg (27.0-31.2); Mean Corpuscular Volume 94.4 fl (81-99); Mean Platelet Volume 9.1 fl (7.4-10.4); Monocytes # 0.8 K/mm3 (0.1-1.0); Monocytes % 2.7 % (1.7-9.3); Neutrophils # 27.3 K/mm3 (1.8-7.8); Neutrophils % 91.6 % (37.0-80.0); Nucleated Red Blood Cells # 0 10^3/uL; Nucleated Red Blood Cells % 0 %; Platelet Count 240 K/mm3 (142-424); Red Blood Count 4.63 M/mm3 (4.20-5.40); Red Cell Distribution Width 14.9 % (11.5-17.5); Red Cell Distribution Width-SD 51.1 fL; White Blood Count 29.8 K/mm3 (4.8-10.8)
[2024-12-11 16:08] LABS: Chloride 93 mmol/L (98-107); Potassium 4.3 mmoL/L (3.5-5.1); Sodium 133 mmol/L (136-145)
[2024-12-11 16:09] LABS: MANUAL DIFFERENTIAL MANUAL DIFFERENTIAL (MANUAL DIFF)
[2024-12-11 16:10] LABS: Blood Urea Nitrogen 16 mg/dl (7-17); Creatinine Clearance Estimated 43 mL/min (50-200); Estimated Glomerular Filt Rate 49 ml/min (>60); GFR (African American) 60 ML/MIN (>60)
[2024-12-11 16:11] LABS: Alanine Aminotransferase 18 U/L (12-78); Albumin/Globulin Ratio 1.6 (1.1-1.8); Alkaline Phosphatase 58 U/L (38-126); Anion Gap 9.3 mEq/L (5-15); Aspartate Amino Transferase 28 U/L (14-36); Bilirubin,Total 0.6 mg/dl (0.2-1.3); Calcium 9.2 mg/dl (8.4-10.2); Carbon Dioxide 35 mmol/L (22.0-30.0); Globulin 2.5 g/dL (1.3-3.2); Glucose 101 mg/dl (74-100); Total Protein,Serum 6.5 g/dl (6.3-8.2)
[2024-12-11 16:13] LABS: Activated Partial Thrombo Time 28.8 seconds (22.8-30.6); INR 1.03 (0.9-1.1); Prothrombin Time 11.4 seconds (10.1-12.5)
[2024-12-11 16:17] LABS: C-Reactive Protein 50.1 mg/L (0-4)
[2024-12-11 16:24] LABS: NT Pro Brain Natriuretic Pep. 1620 pg/mL (0-125)
[2024-12-11 16:26] LABS: Troponin I 0.05 ng/ml (0.00-0.034)
[2024-12-11] MEDS: 0.9 % SODIUM CHLORIDE 50 ML VIAL IV (16:26)
[2024-12-11] MEDS: IOPAMIDOL-370 (76%);100ML BOTTLE 70 ML IV (16:26)
[2024-12-11] MEDS: SODIUM CHLORIDE 0.9% 10ML SYR (RAD ONLY) 10 ML IV (16:26)
[2024-12-11 16:31] LABS: T4 (Thyroxine) 7.8 ug/dl (5.53-11.0)
--- NOTE | 2024-12-11 16:43 | EXP.HP ---
History of Present Illness *Admission Date: 12/11/24 *Reason for visit:: dyspnea, weakness *History of present illness: This is a 69-year-old female with past medical history of COPD, chronic respiratory failure on 2 L nasal cannula at night and as needed who presents emergency department for worsening shortness of breath. Was just admitted 2 weeks ago for similar presentation. Diagnosed with pneumonia and PE. Completed antibiotics as an outpatient. On workup in the ER, white count elevated 29, CT of chest shows worsening pneumonia on left side. Increased oxygen requirement to 4 L. Placed on BiPAP. Medicine consulted for admission and further management. Received cefepime in the ED. Blood cultures obtained. Continues to smoke at least a pack a day. Oriented to self and place on arrival to the floor. [facility] Disclaimer: The information contained in this section may have been updated after the patient was seen, as this information can be updated by other users. Medical History Pneumonia Fecal occult blood test positive Sepsis without septic shock Lymphedema Physical deconditioning General weakness Lung mass Hypomagnesemia Acute hypokalemia Chronic hyponatremia Generalized weakness COPD mixed type Lung nodule Hypokalemia Elevated troponin COPD (chronic obstructive pulmonary disease) Nocturnal hypoxemia Pulmonary emphysema Incidental pulmonary nodule, greater than or equal to 8mm Smoking greater than 30 pack years Dyspnea on exertion Tobacco abuse disorder Tobacco abuse counseling COPD (chronic obstructive pulmonary disease) Cervical cancer Surgical History History of dilation and curettage History of back surgery Family History Diabetes Social History (Updated 12/11/24 @ 18:08 by Jessika Dawson RN) Smoking Status: Current every day smoker tobacco type: cigarettes packs per day: 2 second hand exposure: Yes alcohol intake: current alcohol intake frequency: 0-2 drinks per day current occupational status: unemployed Travel in the last 8 weeks?: None household members: spouse housing: house current occupational exposures/hazards: No Have you lived/traveled outside [place] in past 30 days?: No Contact w/someone who lives/traveled outside [place] past 30 days?: No Exposure to someone with infectious disease in past 14 days?: No Do you have a fever (greater than 100.4 F or 38 C)?: No Have you tested positive for COVID-19?: No Exposed to someone with COVID-19 in past 14 days?: No Do you have a sore throat?: No Do you have a cough?: No Do you have any weakness?: Yes Do you have any diarrhea?: No Are you experiencing any unusual bleeding?: No Do you have any muscle aches/pain?: No Do you have any abdominal pain?: No Are you experiencing loss of taste or smell?: No Other Medical History Have you received the Flu Vaccine for this season: No Have you received the Pneumonia Vaccine: No Review of Systems Review of Systems Review of systems (narrative): 14 point review of systems performed, pertinent positives and negatives as per HPI Meds Home Medications and Allergies Home Medications ?Medication ?Instructions ?Recorded ?Confirmed ?Type ipratropium 0.5 mg-albuterol 3 mg 3 ml inhalation QIDP PRN Shortness 07/03/21 11/29/24 History (2.5 mg base)/3 mL nebulization Of Breath soln albuterol sulfate 90 mcg/actuation 2 inh inhalation Q6H 04/15/24 11/29/24 History aerosol inhaler alprazolam 1 mg tablet 1 mg PO BID 04/15/24 11/29/24 History calcium 600 mg (as 1 tab PO BIDWMEAL 04/15/24 11/29/24 History carbonate)-vitamin D3 5 mcg (200 unit) tablet celecoxib 50 mg capsule 50 mg PO DAILY 04/15/24 11/29/24 History cholecalciferol (vitamin D3) 1,250 1,250 mcg PO WEEKLY 04/15/24 11/29/24 History mcg (50,000 unit) capsule duloxetine 30 mg capsule,delayed 30 mg PO DAILY 04/15/24 11/29/24 History release gabapentin 800 mg tablet 800 mg PO TID 04/15/24 11/29/24 History losartan 100 mg tablet 100 mg PO DAILY 04/15/24 11/29/24 History montelukast 10 mg tablet 10 mg PO PM 04/15/24 11/29/24 History potassium chloride 20 mEq 20 meq PO BID 04/15/24 11/29/24 History tablet,extended release(part/cryst) amlodipine 10 mg tablet 10 mg PO DAILY #30 tabs 04/16/24 11/29/24 Rx furosemide 40 mg tablet 40 mg PO DAILY 30 days #30 tabs 08/16/24 11/29/24 Rx magnesium gluconate 27 mg 27 mg PO DAILY 11/29/24 11/29/24 History magnesium (500 mg) tablet plecanatide 3 mg tablet (Trulance) 3 mg PO DAILY 11/29/24 11/29/24 History apixaban 5 mg (74 tabs) tablets in 5 mg PO BID #74 tabs 12/01/24 Rx a dose pack (Eliquis DVT-PE Treat 30D Start) digoxin 125 mcg (0.125 mg) tablet 125 mcg PO DAILY #30 tabs 12/01/24 Rx fluticasone 500 mcg-salmeterol 50 1 inh inhalation BIDRT 30 days #60 12/01/24 Rx mcg/dose blistr powdr for ea inhalation (Advair Diskus) ipratropium 0.5 mg-albuterol 3 mg 3 ml inhalation Q4HP PRN Shortness 12/01/24 Rx (2.5 mg base)/3 mL nebulization Of Breath Or Wheezing 30 days #90 soln mL metoprolol succinate 100 mg 100 mg PO HS 30 days #30 tabs 12/01/24 Rx tablet,extended release 24 hr prednisone 20 mg tablet 20 mg PO DAILY 1 day #1 tab 12/01/24 Rx tiotropium bromide 18 mcg capsule 1 cap inhalation DAILY #1 puff 12/01/24 Rx with inhalation device (Spiriva with HandiHaler) New Prescriptions to Start Prescriptions: Allergies Allergy/AdvReac Type Severity Reaction Status Date / Time No Known Allergies Allergy Verified 11/17/24 15:18 Exam Data for Last 24 hours Vital signs and Labs for Last 24 Hours: Temp Pulse Resp BP Pulse Ox O2 Del Method O2 Flow Rate 99.7 F H 106 H 27 H 97/58 L 98 BiPAP 3 12/11/24 15:51 12/11/24 16:00 12/11/24 16:00 12/11/24 16:00 12/11/24 16:00 12/11/24 16:00 12/11/24 15:51 FiO2 40 12/11/24 15:55 Laboratory Results - last 24 hr 12/11/24 15:47: WBC 29.8 H*, RBC 4.63, Hgb 13.5, Hct 43.7, MCV 94.4, MCH 29.2, MCHC 30.9 L, RDW 14.9, Plt Count 240, MPV 9.1, Neut % (Auto) 91.6 H, Lymph % (Auto) 4.6 L, Da[place]hin % (Auto) 2.7, Eos % (Auto) 0.0 L, Baso % (Auto) 0.4, Neut # (Auto) 27.3 H, Lymph # (Auto) 1.4, Da[place]hin # (Auto) 0.8, Eos # (Auto) 0.0, Baso # (Auto) 0.1, PT 11.4, INR 1.03, APTT 28.8, Sodium 133 L, Potassium 4.3, Chloride 93 L, Carbon Dioxide 35 H, Anion Gap 9.3, BUN 16, Creatinine 1.10 H, Estimated Creat Clear 43, Estimated GFR 49 L, Est GFR ( Amer) 60, Glucose 101 H, Calcium 9.2, Total Bilirubin 0.6, AST 28, ALT 18, Alkaline Phosphatase 58, Troponin I 0.05 H, C-Reactive Protein 50.1 H, NT-Pro-B Natriuret Pep 1620 H, Total Protein 6.5, Albumin 4.0, Globulin 2.5, Albumin/Globulin Ratio 1.6, Thyroxine (T4) 7.8 12/11/24 15:53: SARS-CoV-2 (PCR) Not detected, Influenza A Untype (PCR) Not detected, Influenza Type B (PCR) Not detected 12/11/24 15:54: VBG pH 7.36, VBG pCO2 50.8, VBG pO2 49.0 H, VBG HCO3 27.7, VBG Total CO2 29.3 H, VBG O2 Saturation 84.5 H, VBG Base Excess 2.2, VBG Lactic Acid 2.6 H I & O for Last 24 hours: Intake & Output 12/08/24 12/09/24 12/10/24 12/11/24 23:59 23:59 23:59 23:59 Weight 56.699 kg Constitutional Constitutional: moderate distress, thin, chronically ill appearing and cooperative *Routine HEENT Exam Head: Present normocephalic Eye: Present EOMI and PERRL ENT: Present mucous membranes moist *Routine Neck Exam Neck: Present supple; Absent lymphadenopathy *Routine Respiratory Exam Respiratory: Present wheezes, crackles (left lung field), diminished air movement and able to speak in complete sentences *Routine Cardiovascular Exam Cardiovascular: Present tachycardia *Routine Abdominal Exam Abdominal: Present soft and normoactive bowel sounds; Absent tenderness *Routine Rectal Exam Rectal:: deferred *Routine Genitalia Exam Genitalia:: deferred *Routine Extremities Exam Extremities: Absent cyanosis, clubbing or edema *Routine Skin Exam Skin: Present warm; Absent rash *Routine Neurological Exam Neurological: Present alert, oriented X3 and moving all extremities; Absent altered mental status Assessment and Plan *Assessment and plan (1) Acute respiratory failure with hypoxia and hypercarbia: Status: Acute Category: Medical Code(s): J96.01 - Acute respiratory failure with hypoxia; J96.02 - Acute respiratory failure with hypercapnia (2) Pneumonia: Status: Acute Qualifiers: Laterality: left Lung location: lower lobe of lung Pneumonia type: due to Pseudomonas Qualified Code(s): J15.1 - Pneumonia due to Pseudomonas Category: Medical Code(s): J18.9 - Pneumonia, unspecified organism (3) Acute exacerbation of chronic obstructive pulmonary disease: Status: Acute Category: Medical Code(s): J44.1 - Chronic obstructive pulmonary disease with (acute) exacerbation (4) Atrial fibrillation: Status: Acute Category: Medical Code(s): I48.91 - Unspecified atrial fibrillation (5) Lung nodule: Status: Acute Category: Medical Code(s): R91.1 - Solitary pulmonary nodule (6) Peripheral vascular disease: Status: Acute Category: Medical Code(s): I73.9 - Peripheral vascular disease, unspecified (7) Hypertension: Status: Acute Category: Medical Code(s): I10 - Essential (primary) hypertension (8) Smoking greater than 30 pack years: Status: Chronic Category: Social Hx Code(s): F17.210 - Nicotine dependence, cigarettes, uncomplicated Plan 69-year-old female with COPD on chronic oxygen therapy, presented Meeting sepsis criteria with tachycardia, tachypnea, white count of 29,000 and worsening left lower lobe pneumonia. Discussed case with ER physician, request admission for further management of acute on chronic hypoxemic respiratory failure. Placed on BiPAP in the ED. I agreed to admit for further care. Showing some improvement, weaned to nasal cannula oxygen by the time she arrived to the stepdown unit. Appears to be a recurrent pneumonia, consistent with healthcare acquired. Previous cultures positive for Pseudomonas. Problems addressed as follows: Left lower lobe pneumonia due to Pseudomonas Acute on chronic respiratory failure with hypoxia and hypercarbia Pulmonary emboli, previously diagnosed - VBG with pH of 7.36, pCO2 of 50. pO2 of 49. Placed on BiPAP due to respiratory distress. Received [id number] nebs in the ED. - Previous sputum cultures positive for Pseudomonas. Continue broad-spectrum antibiotics with azithromycin 500 mg daily and cefepime 2 g every 8 hours. - Blood and sputum cultures pending. Continue vancomycin for at least 48 hours for empiric staph coverage - CRP elevated at 50, white count 29.8 - Repeat CBC, CMP, magnesium ordered for the morning - Patient confused, tachypneic to 40 on arrival, temperature 99.7. Heart rate in the 110s - PSI port score of 99, class IV risk. Necessitating inpatient care - Plan to reach out to pulmonology Saturday if patient still admitted. -Continue DuoNebs every 4 hours scheduled, Pulmicort twice daily -Received steroids in the ED, will hold on further steroids given worsening pneumonia, hold on Advair pending improvement in respiratory status and de-escalation of DuoNebs - Consider lung biopsy as an outpatient due to her pulmonary nodules. -Due to previous PE, continue Eliquis 5 mg twice daily A-fib with RVR: - Continue digoxin 125 mcg daily, continue metoprolol succinate 100 mg nightly. Continue Eliquis 5 mg twice daily. - Monitor on telemetry #Peripheral vascular disease Sees podiatry. Had recent fracture of her left foot. Podiatry is following. Small wound to dorsum of left foot. Nickel sized with granulation tissue. Does not appear infected. Depression: Continue Cymbalta 30 mg daily, alprazolam 0.5 mg twice daily as needed given concern for polypharmacy Hypertension: Normotensive at this time. Hold amlodipine and losartan. Resume Lasix 40 mg daily starting tomorrow due to elevated BNP of approximately 1500 Neuropathy: Continue gabapentin at reduced dose of 400 mg 3 times a day due to polypharmacy and confusion on presentation Full code Regular diet PT and OT to evaluate Eliquis 5 mg twice daily
[2024-12-11] MEDS: VANCOMYCIN CONSULT REQUEST 1 EACH NOTAPPLIC (16:45)
[2024-12-11 16:57] LABS: Lymphocytes % 7 % (10-50); Monocytes % 2 % (2-9); Neutrophils % 91 % (42-76); Platelet Estimate Normal; RBC Morphology Normal; Total Cells Counted 100
[2024-12-11] MEDS: CEFEPIME HCL 2 GM in 0.9 % SODIUM CHLORIDE 100 ML IV (17:11)
[2024-12-11] MEDS: LACTATED RINGERS 1000ML 1,000 ML 999 ML IV (17:12)
--- NOTE | 2024-12-11 17:22 | PC.NURSE ---
Called report to FIGUEROA Rosen.
[2024-12-11] MEDS: RINGERS SOLUTION,LACTATED 500 ML 999 ML IV (17:40)
[2024-12-11] MEDS: AZITHROMYCIN 500 MG in 0.9 % SODIUM CHLORIDE 250 ML 250 MG IV (17:41)
--- NOTE | 2024-12-11 17:53 | PC.NURSE ---
pt arrived to unit at this time.
--- NOTE | 2024-12-11 18:00 | PC.NURSE ---
pt arrived to ICU via stretcher with ER staff @1800
--- NOTE | 2024-12-11 18:21 | PC.NURSE ---
pt unable to state which medicines she currently takes on a daily basis. no family present at this time.
--- NOTE | 2024-12-11 18:32 | PC.WOUNDNOTE ---
LEFT FOOT ULCERATION
--- NOTE | 2024-12-11 18:43 | PC.NURSE ---
called and spoke with pt's son, Kevin, regarding patients home medications. Kevin states he will be to see patient this evening and will bring the list of medications with him.
[2024-12-11] MEDS: VANCOMYCIN HCL 1,000 MG in 0.9 % SODIUM CHLORIDE 250 ML 125 MG IV (19:43)
--- NOTE | 2024-12-11 19:55 | PC.NURSE ---
pt able to give sputum sample. collected and sent to lab. pt sitting up in bed, eating snack. IVF completed. Vanc infusing per MAR
[2024-12-11 20:00] LABS: Reflex Lactic Add Lactic Reflex
--- NOTE | 2024-12-11 20:01 | PC.NURSE ---
O2 weaned to 3L at this time
[2024-12-11 20:09] LABS: Troponin I 0.04 ng/ml (0.00-0.034)
[2024-12-11] MEDS: APIXABAN 5 EACH PO (20:55)
[2024-12-11] MEDS: NICOTINE 21MG/24HR PATCH 21 MG TD (20:56)
--- NOTE | 2024-12-11 21:22 | PC.NURSE ---
pt O2 sat 99%. weaned to 2L NC
--- NOTE | 2024-12-11 21:46 | PC.NURSE ---
wound to left foot cleaned and dressed. pt remains very drowsy but is able to wake up and have a conversation. pt is oriented X4.
[2024-12-11 21:55] LABS: Lactic Acid Follow Up (RFLX 1) 3.1 mmol/L (0.7-2.1)
[2024-12-11] MEDS: IPRATROPIUM/ALBUTEROL 3 ML NEB IH (22:04)
[2024-12-11] MEDS: METOPROLOL SUCCINATE XL 100MG TABLET 100 MG PO (22:06)
[2024-12-11 22:07] LABS: Troponin I 0.04 ng/ml (0.00-0.034)
--- NOTE | 2024-12-11 22:07 | PC.NURSE ---
Pts BP 90s-low 100's. Per Torie Syed APRN, ok to give scheduled Metoprolol 100mg PO
--- NOTE | 2024-12-11 22:10 | EXP.EVENT.NO ---
Problem: Nurse called that the patient's blood pressure was below 100 systolic while she was deeply asleep, and wanted to know about whether or not the metoprolol 100 mg sustained-release should be given., I came up to see the patient in the ICU several minutes later. Blood pressure and heart rate had increased to an acceptable level. Her son and grandson also were coming into the unit also standing by bedside. Son confirmed that she still smokes 2 packs a day. That she was doing pretty good until approximately 24 hours ago and began to have more trouble. That the patient has been told several times she needs long-term care but the patient does not want to be in a long-term care facility. But per the patient and the family member she takes her medicines on a regular basis EXAM: The patient is lying in the bed she did not attempt to sit up but she is alert now eyes are open. This appears her to semisedated at times like she drifts off but then wakes up answers questions well. She is able to move all extremities. Respiratory rate is increased. Vital signs show that the heart rate is 88 blood pressure 119 systolic. Patient is able to converse with her son and answer his questions also. Plan: Having talked with the patient to let her know that I was going to go ahead and continue her medications not causing them. That the medication she needed to get rid of was her cigarettes but it is known that she does not want to quit smoking, and she does not want to go to long-term care. The son also backed this up while talking to his mom and mom talking directly to him letting her wishes be known. At this time the patient is kind of fragile., Still having increased difficulty breathing then from last discharge., The patient does understand that she is a full code and if she was not able to breathe that all life support hazards would be taken to keep her from passing away. The son knows that if she ever gets to a point in time that she is not able to make decisions for herself and with her knowledge of this also that he would be the person that would make decisions for her. Her grandson is in the room to also acknowledging that he has heard her talk to her son about this. Presently we will continue all medications and patient will be a full code.
[2024-12-11 23:31] LABS: Reflex Lactic (2 hrs) Add Lactic Reflex
[2024-12-12] VITALS (37 sets, daily range): BP systolic 107–157; BP diastolic 55–79; PULSE 72–97; RESP 14–29; TEMP 36.6–37; O2SAT 87–100; BMI 24.5
[2024-12-12 00:34] LABS: Lactic Acid Follow up (RFLX 2) 1.9 mmol/L (0.7-2.1)
[2024-12-12] MEDS: CEFEPIME HCL 2 GM in 0.9 % SODIUM CHLORIDE 100 ML IV ×4 (01:09→23:05)
[2024-12-12] MEDS: IPRATROPIUM/ALBUTEROL 3 ML NEB IH ×5 (01:28→23:03)
[2024-12-12 01:42] LABS: POC Glucose,Bedside 146 (70-110)
--- NOTE | 2024-12-12 05:40 | PC.NURSE ---
pt given bath at this time. hair washed and sheets changed. new purewick applied. pt became SOA during bath. pursed lip breathing noted. 0600 scheduled duoneb given now per SEP
[2024-12-12] MEDS: BUDESONIDE 0.5MG/2ML NEB 0.5 MG IH ×2 (05:57→18:21)
[2024-12-12 06:23] LABS: Basophils # 0.1 K/mm3 (0-0.2); Basophils % 0.2 % (0.1-2.0); Hematocrit 37.1 % (37.0-47.0); Immature Granulocytes # 0.31 10^3uL; Immature Granulocytes % 1.1 %; Lymphocytes # 0.9 K/mm3 (0.7-4.5); Lymphocytes % 3.3 % (10-50); Mean Corpuscular HGB Conc 31.8 g/dL (31.8-35.4); Mean Corpuscular Volume 94.4 fl (81-99); Mean Platelet Volume 9.4 fl (7.4-10.4); Monocytes # 0.6 K/mm3 (0.1-1.0); Monocytes % 2.1 % (1.7-9.3); Neutrophils # 26.8 K/mm3 (1.8-7.8); Neutrophils % 93.3 % (37.0-80.0); Nucleated Red Blood Cells # 0 10^3/uL; Nucleated Red Blood Cells % 0 %; Platelet Count 175 K/mm3 (142-424); Red Blood Count 3.93 M/mm3 (4.20-5.40); Red Cell Distribution Width 14.7 % (11.5-17.5); Red Cell Distribution Width-SD 51.1 fL; White Blood Count 28.7 K/mm3 (4.8-10.8)
[2024-12-12 06:34] LABS: Alanine Aminotransferase 20 U/L (12-78); Albumin Level 3.4 g/dl (3.5-5.0); Albumin/Globulin Ratio 1.5 (1.1-1.8); Alkaline Phosphatase 50 U/L (38-126); Anion Gap 8.4 mEq/L (5-15); Aspartate Amino Transferase 31 U/L (14-36); Bilirubin,Total 0.6 mg/dl (0.2-1.3); Blood Urea Nitrogen 19 mg/dl (7-17); Calcium 8.8 mg/dl (8.4-10.2); Carbon Dioxide 31 mmol/L (22.0-30.0); Chloride 97 mmol/L (98-107); Creatinine Clearance Estimated 48 mL/min (50-200); Estimated Glomerular Filt Rate 71 ml/min (>60); GFR (African American) 86 ML/MIN (>60); Globulin 2.3 g/dL (1.3-3.2); Glucose 145 mg/dl (74-100); MANUAL DIFFERENTIAL MANUAL DIFFERENTIAL (MANUAL DIFF); Magnesium 1.9 mg/dl (1.6-2.3); Potassium 4.4 mmoL/L (3.5-5.1); Sodium 132 mmol/L (136-145); Total Protein,Serum 5.7 g/dl (6.3-8.2)
[2024-12-12 07:38] LABS: Hemoglobin 11.8 g/dL (12.2-16.2)
--- NOTE | 2024-12-12 08:22 | P.PN_ITS ---
Subjective *Date: 12/12/24 *Time: 12:04 Interval history: Denies any chest pain. Improved respiratory distress. On 2 L oxygen this morning. No nausea or vomiting. Kidney function seeing improvement. Medical Exam Vital signs and Labs for Last 24 Hours: Vital Signs Temp Pulse Pulse Resp BP BP Pulse Ox 12/12/24 08:00 80 12/12/24 08:00 98.0 F 81 22 123/58 L 91 L 12/12/24 08:00 123/58 L 12/12/24 07:49 83 20 157/79 H 92 L 12/12/24 07:45 85 28 H 94 L 12/12/24 07:39 95 12/12/24 07:30 86 29 H 87 L 12/12/24 07:30 157/79 H 12/12/24 07:15 81 15 93 L 12/12/24 07:00 123/61 12/12/24 07:00 78 18 91 L 12/12/24 06:59 12/12/24 06:45 72 25 H 91 L 12/12/24 06:30 119/55 L 12/12/24 06:30 76 23 91 L 12/12/24 06:15 75 26 H 92 L 12/12/24 06:00 82 24 135/64 92 L 12/12/24 05:00 12/12/24 04:00 78 12/12/24 04:00 98.6 F 75 22 117/60 94 L 12/12/24 03:00 12/12/24 02:00 12/12/24 02:00 73 22 119/63 92 L 12/12/24 01:28 75 12/12/24 01:28 79 12/12/24 01:00 12/12/24 00:00 98.6 F 73 22 107/60 L 94 L 12/12/24 00:00 72 12/11/24 23:00 12/11/24 22:05 82 12/11/24 22:05 86 12/11/24 22:00 82 24 111/56 L 92 L 12/11/24 21:17 99/49 L 12/11/24 21:00 94/50 L 12/11/24 21:00 12/11/24 20:01 89 15 139/71 96 12/11/24 20:00 90 12/11/24 20:00 97.9 F 12/11/24 20:00 95 12/11/24 19:54 89 20 12/11/24 19:01 93 H 24 106/65 L 93 L 12/11/24 18:37 12/11/24 18:30 93 H 17 95 12/11/24 18:00 97.8 F 94 H 21 122/61 91 L 12/11/24 18:00 94 H 12/11/24 17:45 98.2 F 87 20 129/63 12/11/24 17:30 84 20 129/63 97 12/11/24 17:11 92 L 12/11/24 17:00 88 24 104/51 L 94 L 12/11/24 16:31 100 H 17 115/60 92 L 12/11/24 16:00 106 H 27 H 97/58 L 98 12/11/24 15:55 102 H 12/11/24 15:55 106 H 12/11/24 15:55 94 L 12/11/24 15:55 12/11/24 15:51 99.7 F H 113 H 40 H 121/66 85 L 12/11/24 15:48 108 H 24 121/66 96 O2 Del Method O2 Flow Rate FiO2 12/12/24 08:00 12/12/24 08:00 Nasal Cannula 2 12/12/24 08:00 12/12/24 07:49 Nasal Cannula 2 12/12/24 07:45 12/12/24 07:39 Nasal Cannula 2 12/12/24 07:30 12/12/24 07:30 12/12/24 07:15 12/12/24 07:00 12/12/24 07:00 12/12/24 06:59 Nasal Cannula 2 12/12/24 06:45 12/12/24 06:30 12/12/24 06:30 12/12/24 06:15 12/12/24 06:00 Nasal Cannula 2 12/12/24 05:00 Nasal Cannula 2 12/12/24 04:00 12/12/24 04:00 Nasal Cannula 2 12/12/24 03:00 Nasal Cannula 2 12/12/24 02:00 Nasal Cannula 2 12/12/24 02:00 Nasal Cannula 2 12/12/24 01:28 12/12/24 01:28 12/12/24 01:00 Nasal Cannula 2 12/12/24 00:00 Nasal Cannula 2 12/12/24 00:00 12/11/24 23:00 Nasal Cannula 2 12/11/24 22:05 12/11/24 22:05 12/11/24 22:00 Nasal Cannula 2 12/11/24 21:17 12/11/24 21:00 12/11/24 21:00 Nasal Cannula 3 12/11/24 20:01 Nasal Cannula 3 12/11/24 20:00 12/11/24 20:00 12/11/24 20:00 Nasal Cannula 3 12/11/24 19:54 12/11/24 19:01 Nasal Cannula 4 12/11/24 18:37 Nasal Cannula 4 12/11/24 18:30 Nasal Cannula 4 12/11/24 18:00 Nasal Cannula 4 12/11/24 18:00 12/11/24 17:45 BiPAP 12/11/24 17:30 BiPAP 12/11/24 17:11 Nasal Cannula 4 12/11/24 17:00 BiPAP 12/11/24 16:31 BiPAP 12/11/24 16:00 BiPAP 12/11/24 15:55 12/11/24 15:55 12/11/24 15:55 BiPAP 40 12/11/24 15:55 40 12/11/24 15:51 Nasal Cannula 3 12/11/24 15:48 BiPAP Intake and Output 12/11/24 12/12/24 12/12/24 23:59 07:59 15:59 Intake Total 2360 / 2360 460 / 700 240 / 700 Output Total 575 / 575 350 / 350 Balance 1785 / 1785 110 / 350 240 / 350 Intake: Intake, Oral Amount 210 / 210 360 / 600 240 / 600 Intake, Total IV Amount 2150 / 2150 100 / 100 Azithromycin 500 mg In 0.9 % 250 / 250 Sodium Chloride 250 ml @ 250 mls/hr IV DAILY [facility] Rx#: [id number] Cefepime HCl 2 gm In 0.9 % 100 / 100 100 / 100 Sodium Chloride 100 ml @ 200 mls/hr IV ONCE ONE Rx#:[id number] Lactated Ringers 1000ML 1,000 1000 / 1000 ml @ 999 mls/hr IV .Q1H1M ONE Rx#:[id number] Magnesium Sulfate in Water 2 gm 50 / 50 In 50 ml @ 50 mls/hr IV ONCE ONE Rx#:[id number] Ringers Solution,Lactated 500 500 / 500 ml @ 999 mls/hr IV .Q31M ONE Rx #:[id number] Vancomycin HCl 1,000 mg In 0.9 250 / 250 % Sodium Chloride 250 ml @ 125 mls/hr IV ONCE ONE Rx#:[id number] Output: Output, Urine Amount 575 / 575 350 / 350 Other: Number of Unmeasured Voids 0 1 Weight 56.331 kg 56.79 kg Patient Weight 12/12/24 23:59 Weight 56.79 kg Laboratory Results - last 24 hr 12/11/24 15:47: WBC 29.8 H*, RBC 4.63, Hgb 13.5, Hct 43.7, MCV 94.4, MCH 29.2, MCHC 30.9 L, RDW 14.9, Plt Count 240, MPV 9.1, Neut % (Auto) 91.6 H, Lymph % (Auto) 4.6 L, [place] % (Auto) 2.7, Eos % (Auto) 0.0 L, Baso % (Auto) 0.4, Neut # (Auto) 27.3 H, Lymph # (Auto) 1.4, [place] # (Auto) 0.8, Eos # (Auto) 0.0, Baso # (Auto) 0.1, Total Counted 100, Neutrophils % (Manual) 91 H, Lymphocytes % (Manual) 7 L, Monocytes % (Manual) 2, Platelet Estimate Normal, RBC Morphology Normal, PT 11.4, INR 1.03, APTT 28.8, Sodium 133 L, Potassium 4.3, Chloride 93 L , Carbon Dioxide 35 H, Anion Gap 9.3, BUN 16, Creatinine 1.10 H, Estimated Creat Clear 43, Estimated GFR 49 L, Est GFR ( Amer) 60, Glucose 101 H, Calcium 9.2, Total Bilirubin 0.6, AST 28, ALT 18, Alkaline Phosphatase 58, Troponin I 0.05 H, C-Reactive Protein 50.1 H, NT-Pro-B Natriuret Pep 1620 H, Total Protein 6.5, Albumin 4.0, Globulin 2.5, Albumin/Globulin Ratio 1.6, TSH 1.90, Thyroxine (T4) 7.8 12/11/24 15:53: SARS-CoV-2 (PCR) Not detected, Influenza A Untype (PCR) Not detected, Influenza Type B (PCR) Not detected 12/11/24 15:54: VBG pH 7.36, VBG pCO2 50.8, VBG pO2 49.0 H, VBG HCO3 27.7, VBG Total CO2 29.3 H, VBG O2 Saturation 84.5 H, VBG Base Excess 2.2, VBG Lactic Acid 2.6 H 12/11/24 19:00: Troponin I 0.04 H 12/11/24 21:25: Lactate 3.1 H, Troponin I 0.04 H 12/11/24 23:48: Lactate 1.9 12/12/24 01:35: POC Glucose 146 H 12/12/24 05:39: WBC 28.7 H*, RBC 3.93 L, Hgb 11.8 L D, Hct 37.1, MCV 94.4, MCH 30.0, MCHC 31.8, RDW 14.7, Plt Count 175 D, MPV 9.4, Neut % (Auto) 93.3 H, Lymph % (Auto) 3.3 L, [place] % (Auto) 2.1, Eos % (Auto) 0.0 L, Baso % (Auto) 0.2, Neut # (Auto) 26.8 H, Lymph # (Auto) 0.9, [place] # (Auto) 0.6, Eos # (Auto) 0.0, Baso # (Auto) 0.1, Sodium 132 L, Potassium 4.4, Chloride 97 L, Carbon Dioxide 31 H, Anion Gap 8.4, BUN 19 H, Creatinine 0.80 D, Estimated Creat Clear 48, Est imated GFR 71, Est GFR ( Amer) 86 D, Glucose 145 H D, Calcium 8.8, Magnesium 1.9, Total Bilirubin 0.6, AST 31, ALT 20, Alkaline Phosphatase 50, Total Protein 5.7 L, Albumin 3.4 L D, Globulin 2.3, Albumin/Globulin Ratio 1.5 I & O for Labs for Last 24 Hours: Intake & Output 12/09/24 12/10/24 12/11/24 12/12/24 23:59 23:59 23:59 23:59 Intake Total 2360 / 2360 700 / 700 Output Total 575 / 575 350 / 350 Balance 1785 / 1785 350 / 350 Weight 56.331 kg 56.79 kg Microbiology Reports for the Last 24 Hours: Microbiology 12/11/24 19:48 Sputum - Expectorated Sputum Gram Stain - Final Constitutional: Present mild distress, average body habitus, chronically ill appearing, disheveled and cooperative Head: Present atraumatic and normocephalic ENT: Present normal exam Respiratory: Present prolonged expiratory phase, rhonchi, wheezes, diminished air movement and normal respiratory effort; Absent crackles Cardiac: Present Tachycardia Comment:: Irregularly irregular GI: Present soft and normal bowel sounds; Absent distention or tenderness Extremities: Present normal inspection and full ROM Skin: Present intact; Absent erythema Neuro: Present Cranial Nerve 2-12 Intact, Grossly Intact, alert, awake, oriented x 3 and moves all extremities Assessment and Plan *Assessment and plan (1) Acute respiratory failure with hypoxia and hypercarbia: Status: Acute Category: Medical Code(s): J96.01 - Acute respiratory failure with hypoxia; J96.02 - Acute respiratory failure with hypercapnia (2) Pneumonia: Status: Acute Qualifiers: Laterality: left Lung location: lower lobe of lung Pneumonia type: due to Pseudomonas Qualified Code(s): J15.1 - Pneumonia due to Pseudomonas Category: Medical Code(s): J18.9 - Pneumonia, unspecified organism (3) Acute exacerbation of chronic obstructive pulmonary disease: Status: Acute Category: Medical Code(s): J44.1 - Chronic obstructive pulmonary disease with (acute) exacerbation (4) Atrial fibrillation: Status: Acute Category: Medical Code(s): I48.91 - Unspecified atrial fibrillation (5) Lung nodule: Status: Acute Category: Medical Code(s): R91.1 - Solitary pulmonary nodule (6) Peripheral vascular disease: Status: Acute Category: Medical Code(s): I73.9 - Peripheral vascular disease, unspecified (7) Hypertension: Status: Acute Category: Medical Code(s): I10 - Essential (primary) hypertension (8) Smoking greater than 30 pack years: Status: Chronic Category: Social Hx Code(s): F17.210 - Nicotine dependence, cigarettes, uncomplicated Plan 69-year-old female with COPD on chronic oxygen therapy, presented Meeting sepsis criteria with tachycardia, tachypnea, white count of 29,000 and worsening left lower lobe pneumonia. Discussed case with ER physician, request admission for further management of acute on chronic hypoxemic respiratory failure. Placed on BiPAP in the ED. I agreed to admit for further care. Showing some improvement, weaned to nasal cannula oxygen by the time she arrived to the stepdown unit. Appears to be a recurrent pneumonia, consistent with healthcare acquired. Previous cultures positive for Pseudomonas. Continues to require inpatient management. Responding to therapy. Problems addressed as follows: Left lower lobe pneumonia due to Pseudomonas Acute on chronic respiratory failure with hypoxia and hypercarbia Pulmonary emboli, previously diagnosed - Previous sputum cultures positive for Pseudomonas. Continue broad-spectrum antibiotics with azithromycin 500 mg daily and cefepime 2 g every 8 hours. - Blood and sputum cultures pending. Continue vancomycin for at least 48 hours for empiric staph coverage -White count remains elevated at 28.7. Repeat CBC, CMP, magnesium ordered for the morning -Patient more oriented and alert this morning. Doing better. Weaning oxygen. - PSI port score of 99, class IV risk. Necessitating inpatient care - Plan to consult pulmonology Saturday if patient still admitted. -Continue DuoNebs de-escalate every 6 hours scheduled. Continue Pulmicort twice daily. - hold on Advair pending improvement in respiratory status and de-escalation of DuoNebs - Consider lung biopsy as an outpatient due to her pulmonary nodules. -Due to previous PE, continue Eliquis 5 mg twice daily - Goal sats greater 90%, currently on 2 L. This is her baseline. Kidney function normal with BUN 19, creatinine 0.8. Magnesium 1.9, potassium 4.4. A-fib with RVR: - Continue digoxin 125 mcg daily, continue metoprolol succinate 100 mg nightly. Continue Eliquis 5 mg twice daily. - Monitor on telemetry #Peripheral vascular disease Sees podiatry. Had recent fracture of her left foot. Podiatry is following. Small wound to dorsum of left foot. Nickel sized with granulation tissue. Does not appear infected. Depression: Continue Cymbalta 30 mg daily, alprazolam 0.5 mg twice daily as needed given concern for polypharmacy Hypertension: Normotensive at this time. Hold amlodipine and losartan. Resume Lasix 40 mg daily starting tomorrow due to elevated BNP of approximately 1500 Neuropathy: Continue gabapentin at reduced dose of 400 mg 3 times a day due to polypharmacy and confusion on presentation Full code Regular diet PT and OT to evaluate Eliquis 5 mg twice daily
[2024-12-12 08:49] LABS: Lymphocytes % 5 % (10-50); Monocytes % 1 % (2-9); Neutrophils % 94 % (42-76); Platelet Estimate Normal; RBC Morphology Normal; Total Cells Counted 100
[2024-12-12] MEDS: APIXABAN 5MG TABLET 5 MG PO ×2 (09:03→20:08)
[2024-12-12] MEDS: DIGOXIN 0.125MG TABLET 125 MCG PO (09:03)
[2024-12-12] MEDS: FUROSEMIDE 40 MG TABLET PO (09:03)
[2024-12-12] MEDS: DULOXETINE 30MG CAPSULE.DR 30 MG PO (09:03)
[2024-12-12] MEDS: GABAPENTIN 800MG TABLET 400 MG PO ×3 (09:05→20:08)
[2024-12-12] MEDS: AZITHROMYCIN 500 MG in 0.9 % SODIUM CHLORIDE 250 ML 250 MG IV (09:30)
--- NOTE | 2024-12-12 11:40 | PC.NURSE ---
pt up to chair. standby assistance. call light w/i reach.
--- NOTE | 2024-12-12 11:47 | HMH.PTEV ---
Physical Therapy Evaluation Rehab PT IP Evaluation Start: 12/11/24 18:13 Freq: .once Status: Active Protocol: Document 12/12/24 11:41 CROW (Rec: 12/12/24 11:47 CROW [id number]) Subjective/History History History Per H&P: This is a 69-year-old female with past medical history of COPD, chronic respiratory failure on 2 L nasal cannula at night and as needed who presents emergency department for worsening shortness of breath. Was just admitted 2 weeks ago for similar presentation. Diagnosed with pneumonia and PE. Completed antibiotics as an outpatient. On workup in the ER, white count elevated 29, CT of chest shows worsening pneumonia on left side. Increased oxygen requirement to 4 L. Placed on BiPAP. Medicine consulted for admission and further management. Received cefepime in the ED. Blood cultures obtained. Subjective Subjective Pt lives with her son in a single-story house with 4 [address]. Pt reports her son is home and takes care of her as needed. Pt usually IND with mobility with use of cane or RW. [facility] How much help from another person do you currently need... Turning from your None back to your side while in a flat bed without using bedrails? Moving from lying on None back to sitting on the side of a flat bed without using bedrails? Moving to and from a None bed to a chair ( including a wheelchair)? Standing up from a A little chair using your arms? (e.g., wheelchair, bedside chair) Walking in hospital A little room? Climbing 3-5 steps A little with a railing? Mobility Score 21 Mobility Level [facility] 6 Walk 10 steps or more Mobility Calculator Rehab PT IP Eval Objective Appearance Patient Behavior Appropriate,Cooperative Patient Orientation Person Difficulty following none instructions Speech Pattern Clear Ambulation Patient Able to Yes Ambulate Ambulation Observation IP General Gait Shuffling Step Pattern Observation Ambulation Distance 5 (feet) Ambulation Assistive None Device Ambulation Ability Contact Guard/Hand Hold Balance Ability to Arise Able, uses arms to help Sitting Balance Steady, safe Standing Balance Steady, wide stance Dynamic Sitting Good Balance Ability Dynamic Standing Fair Balance Ability Transfers Bed Transfer Ability Supervision/Stand by Sit to Stand Bed Contact Guard/Hand Hold Transfer Ability Rehab PT IP prob,goals,plan Problems Date of Evaluation: 12/12/24 PT IP Problems Bed Mobility,Transfers,Gait,Balance,Self care,Safety Rehab Potential Rehab Potential Good Plan PT Intervention Plan Bed Mobility,Transfers,Gait,Balance,Self care,Safety, Therapeutic Exercise Other Intervention 1-2 times Plan PT Plan Frequency Daily Duration LOS Discharge Goals Bed Transfer Ability Independent Sit to Stand Chair Independent Transfer Ability Ambulation Assistive Rolling Walker Device Ambulation Distance 20 (feet) Discharge Plan PT Discharge Plan Initial PT evaluation performed. Pt presents below baseline in ambulation and strength. Pt would benefit from skilled acute care PT while at [facility] to prevent further functional decline. Pt most appropriate to d/c home with 24/7 assistance and home health. *If pt unable to secure 24/7 assistance/supervision, pt would benefit from rehabilitation placement. Eval Complexity Eval Charge Codes 71169 - Moderate Complexity PHYSICIAN CERTIFICATION: I certify the specified therapy services for Iqra Balbuena are required, authorized, and reviewed every 30 days.
--- NOTE | 2024-12-12 12:02 | PC.NURSE ---
report given to FIGUEROA Montiel.
--- NOTE | 2024-12-12 18:56 | PC.NURSE ---
Assumed care of patient at 1240. Pt is alert and oriented x4. She remains on 2L NC and tolerating well. She has slept intermittently. NSR on telemetry. She has denied any complaints since arriving to the floor.
[2024-12-12] MEDS: MONTELUKAST SODIUM 10MG TAB 10 MG PO (18:58)
[2024-12-12] MEDS: METOPROLOL SUCCINATE XL 100MG TABLET 100 MG PO (20:07)
[2024-12-12] MEDS: ALPRAZolam 0.5MG TABLET 0.5 MG PO (20:08)
[2024-12-12] MEDS: PHENOL THROAT SPRAY 177 ML BOTTLE PO (20:08)
[2024-12-13] VITALS (15 sets, daily range): BP systolic 96–139; BP diastolic 46–82; PULSE 53–120; RESP 14–22; TEMP 36.7–37.9; O2SAT 87–98; BMI 23.6
[2024-12-13] MEDS: ACETAMINOPHEN 325MG TAB 650 MG PO ×2 (05:16→16:52)
--- NOTE | 2024-12-13 05:25 | PC.NURSE ---
Pt A&OX4. Pt has remained on 2L nasal cannula most of the night. She did get short of breath after getting up to bedside commode, but currently states she is breathing much better. She has complained of a headache and was medicated per MAR. No other complaints at this time, call light within reach.
[2024-12-13] MEDS: IPRATROPIUM/ALBUTEROL 3 ML NEB IH ×4 (06:30→23:07)
[2024-12-13] MEDS: BUDESONIDE 0.5MG/2ML NEB 0.5 MG IH ×2 (06:30→18:21)
[2024-12-13 07:09] LABS: Basophils % 0.2 % (0.1-2.0); Eosinophils % 0.1 % (0.1-12.0); Hematocrit 31.3 % (37.0-47.0); Hemoglobin 9.8 g/dL (12.2-16.2); Lymphocytes # 0.9 K/mm3 (0.7-4.5); Lymphocytes % 4.5 % (10-50); Mean Corpuscular HGB Conc 31.3 g/dL (31.8-35.4); Mean Corpuscular Volume 92.6 fl (81-99); Mean Platelet Volume 9.9 fl (7.4-10.4); Monocytes # 0.7 K/mm3 (0.1-1.0); Monocytes % 3.3 % (1.7-9.3); Neutrophils # 17.9 K/mm3 (1.8-7.8); Neutrophils % 89.9 % (37.0-80.0); Nucleated Red Blood Cells # 0 10^3/uL; Nucleated Red Blood Cells % 0 %; Platelet Count 165 K/mm3 (142-424); Red Blood Count 3.38 M/mm3 (4.20-5.40); Red Cell Distribution Width 14.4 % (11.5-17.5); Red Cell Distribution Width-SD 49.1 fL; White Blood Count 19.9 K/mm3 (4.8-10.8)
[2024-12-13 07:12] LABS: Albumin Level 2.8 g/dl (3.5-5.0); Chloride 92 mmol/L (98-107); Sodium 129 mmol/L (136-145)
[2024-12-13 07:15] LABS: Alanine Aminotransferase 17 U/L (12-78); Albumin/Globulin Ratio 1.2 (1.1-1.8); Alkaline Phosphatase 61 U/L (38-126); Aspartate Amino Transferase 21 U/L (14-36); Bilirubin,Total 0.2 mg/dl (0.2-1.3); Blood Urea Nitrogen 17 mg/dl (7-17); Carbon Dioxide 36 mmol/L (22.0-30.0); Creatinine Clearance Estimated 46 mL/min (50-200); Estimated Glomerular Filt Rate 99 ml/min (>60); GFR (African American) 120 ML/MIN (>60); Globulin 2.4 g/dL (1.3-3.2); Total Protein,Serum 5.2 g/dl (6.3-8.2)
[2024-12-13 07:16] LABS: Calcium 8.6 mg/dl (8.4-10.2); Glucose 118 mg/dl (74-100); Magnesium 1.1 mg/dl (1.6-2.3)
[2024-12-13] MEDS: CEFEPIME HCL 2 GM in 0.9 % SODIUM CHLORIDE 100 ML IV ×2 (08:12→20:21)
[2024-12-13] MEDS: DIGOXIN 0.125MG TABLET 125 MCG PO (08:13)
[2024-12-13] MEDS: DULOXETINE 30MG CAPSULE.DR 30 MG PO (08:13)
[2024-12-13] MEDS: FUROSEMIDE 40 MG TABLET PO (08:13)
[2024-12-13] MEDS: APIXABAN 5MG TABLET 5 MG PO ×2 (08:13→20:21)
[2024-12-13] MEDS: ALPRAZolam 0.5MG TABLET 0.5 MG PO ×2 (08:19→18:13)
[2024-12-13] MEDS: GABAPENTIN 800MG TABLET 400 MG PO ×2 (08:19→13:04)
[2024-12-13] MEDS: AZITHROMYCIN 500 MG in 0.9 % SODIUM CHLORIDE 250 ML 250 MG IV (09:43)
[2024-12-13] MEDS: POTASSIUM CHLORIDE 20MEQ TAB 40 MEQ PO ×3 (10:44→18:05)
[2024-12-13] MEDS: MAGNESIUM SULFATE IN WATER 2 GM/50 ML PIGGYBACK IV ×3 (10:55→18:03)
--- NOTE | 2024-12-13 13:22 | EXP.ACUTE.PN ---
Subjective *Date: 12/13/24 *Time: 13:22 Interval history: Patient remained stable on baseline 2 L oxygen at does not vomiting. Electrolyte disturbances noted today. Afebrile overnight. Tolerating p.o. intake. Still quite weak. Medical Exam Vital signs and Labs for Last 24 Hours: Vital Signs Temp Pulse Pulse Resp BP Pulse Ox O2 Del Method 12/13/24 13:00 Nasal Cannula 12/13/24 12:29 105 H 12/13/24 12:29 105 H 12/13/24 11:00 Nasal Cannula 12/13/24 09:00 Nasal Cannula 12/13/24 08:13 83 12/13/24 08:00 Nasal Cannula 12/13/24 08:00 90 12/13/24 08:00 98.0 F 85 18 136/61 90 L Nasal Cannula 12/13/24 06:34 Nasal Cannula 12/13/24 06:31 87 12/13/24 06:31 84 12/13/24 05:00 Nasal Cannula 12/13/24 04:00 100 H 12/13/24 04:00 98.8 F 53 L 14 125/82 91 L Nasal Cannula 12/13/24 03:00 Nasal Cannula 12/13/24 01:00 Nasal Cannula 12/13/24 00:00 98.0 F 94 H 15 137/65 98 12/13/24 00:00 90 12/12/24 23:28 81 12/12/24 23:27 80 12/12/24 23:00 Nasal Cannula 12/12/24 21:00 Nasal Cannula 12/12/24 20:00 90 12/12/24 20:00 97.9 F 97 H 14 139/65 97 Nasal Cannula 12/12/24 20:00 Nasal Cannula 12/12/24 18:57 Nasal Cannula 12/12/24 18:56 85 12/12/24 18:56 81 12/12/24 18:43 Nasal Cannula 12/12/24 17:00 Nasal Cannula 12/12/24 16:00 Nasal Cannula 12/12/24 16:00 90 12/12/24 16:00 98.0 F 86 18 144/62 H 94 L Nasal Cannula 12/12/24 14:51 Nasal Cannula O2 Flow Rate FiO2 12/13/24 13:00 2 12/13/24 12:29 12/13/24 12:29 12/13/24 11:00 2 12/13/24 09:00 2 12/13/24 08:13 12/13/24 08:00 2 12/13/24 08:00 12/13/24 08:00 2 12/13/24 06:34 2 12/13/24 06:31 12/13/24 06:31 12/13/24 05:00 2 12/13/24 04:00 12/13/24 04:00 2 12/13/24 03:00 2 12/13/24 01:00 2 12/13/24 00:00 12/13/24 00:00 12/12/24 23:28 12/12/24 23:27 12/12/24 23:00 2 12/12/24 21:00 2 12/12/24 20:00 12/12/24 20:00 2 12/12/24 20:00 2 12/12/24 18:57 2 28 12/12/24 18:56 12/12/24 18:56 12/12/24 18:43 2 12/12/24 17:00 2 12/12/24 16:00 2 12/12/24 16:00 12/12/24 16:00 2 12/12/24 14:51 Intake and Output 12/12/24 12/13/24 12/13/24 23:59 07:59 15:59 Intake Total 440 / 1480 100 / 460 360 / 460 Output Total 550 / 1150 Balance -110 / 330 100 / 460 360 / 460 Intake: Intake, Oral Amount 240 / 1080 360 / 360 Intake, Total IV Amount 200 / 400 100 / 100 Cefepime HCl 2 gm In 0.9 % 200 / 300 100 / 100 Sodium Chloride 100 ml @ 200 mls/hr IV Q8H [facility] Rx#:[id number] Output: Output, Urine Amount 550 / 1150 Other: Number of Unmeasured Voids 0 2 Weight 54.431 kg Patient Weight 12/13/24 23:59 Weight 54.431 kg Laboratory Results - last 24 hr 12/13/24 06:36: WBC 19.9 H D, RBC 3.38 L, Hgb 9.8 L, Hct 31.3 L, MCV 92.6, MCH 29.0, MCHC 31.3 L, RDW 14.4, Plt Count 165, MPV 9.9, Neut % (Auto) 89.9 H, Lymph % (Auto) 4.5 L, [place] % (Auto) 3.3, Eos % (Auto) 0.1, Baso % (Auto) 0.2, Neut # (Auto) 17.9 H, Lymph # (Auto) 0.9, [place] # (Auto) 0.7, Eos # (Auto) 0.0, Baso # (Auto) 0.0, Sodium 129 L, Potassium 3.0 L D, Chloride 92 L, Carbon Dioxide 36 H, Anion Gap 4.0 L, BUN 17, Creatinine 0.60 D, Estimated Creat Clear 46, Estimated GFR 99, Est GFR ( Amer) 120 D, Glucose 118 H, Calcium 8.6, Magnesium 1.1 L D, Total Bilirubin 0.2, AST 21 D, ALT 17, Alkaline Phosphatase 61, Total Protein 5.2 L, Albumin 2.8 L D, Globulin 2.4, Albumin/Globulin Ratio 1.2 I & O for Labs for Last 24 Hours: Intake & Output 12/10/24 12/11/24 12/12/24 12/13/24 23:59 23:59 23:59 23:59 Intake Total 2360 / 2360 1380 / 1480 460 / 460 Output Total 575 / 575 1150 / 1150 Balance 1785 / 1785 230 / 330 460 / 460 Weight 56.331 kg 56.79 kg 54.431 kg Microbiology Reports for the Last 24 Hours: Microbiology 12/11/24 19:48 Sputum - Expectorated Sputum Gram Stain - Final 12/11/24 19:48 Sputum - Expectorated Sputum Sputum Culture - Preliminary 12/11/24 15:53 Blood Blood Culture - Preliminary NO GROWTH AFTER 24 HOURS 12/11/24 15:47 Blood Blood Culture - Preliminary NO GROWTH AFTER 24 HOURS Constitutional: Present no acute distress, average body habitus, chronically ill appearing, disheveled and cooperative Head: Present atraumatic and normocephalic ENT: Present normal exam Respiratory: Present prolonged expiratory phase, rhonchi, wheezes, diminished air movement and normal respiratory effort; Absent crackles Cardiac: Present Tachycardia Comment:: Irregularly irregular GI: Present soft and normal bowel sounds; Absent distention or tenderness Extremities: Present normal inspection and full ROM Skin: Present intact; Absent erythema Neuro: Present Cranial Nerve 2-12 Intact, Grossly Intact, alert, awake, oriented x 3 and moves all extremities Assessment and Plan *Assessment and plan (1) Acute respiratory failure with hypoxia and hypercarbia: Status: Acute Category: Medical Code(s): J96.01 - Acute respiratory failure with hypoxia; J96.02 - Acute respiratory failure with hypercapnia (2) Pneumonia: Status: Acute Qualifiers: Pneumonia type: due to Pseudomonas Laterality: left Lung location: lower lobe of lung Qualified Code(s): J15.1 - Pneumonia due to Pseudomonas Category: Medical Code(s): J18.9 - Pneumonia, unspecified organism (3) Acute exacerbation of chronic obstructive pulmonary disease: Status: Acute Category: Medical Code(s): J44.1 - Chronic obstructive pulmonary disease with (acute) exacerbation (4) Atrial fibrillation: Status: Acute Category: Medical Code(s): I48.91 - Unspecified atrial fibrillation (5) Lung nodule: Status: Acute Category: Medical Code(s): R91.1 - Solitary pulmonary nodule (6) Peripheral vascular disease: Status: Acute Category: Medical Code(s): I73.9 - Peripheral vascular disease, unspecified (7) Hypertension: Status: Acute Category: Medical Code(s): I10 - Essential (primary) hypertension (8) Smoking greater than 30 pack years: Status: Chronic Category: Social Hx Code(s): F17.210 - Nicotine dependence, cigarettes, uncomplicated Plan 69-year-old female with COPD on chronic oxygen therapy, presented Meeting sepsis criteria with tachycardia, tachypnea, white count of 29,000 and worsening left lower lobe pneumonia. Discussed case with ER physician, request admission for further management of acute on chronic hypoxemic respiratory failure. Placed on BiPAP in the ED. I agreed to admit for further care. Showing some improvement, weaned to nasal cannula oxygen by the time she arrived to the stepdown unit. Appears to be a recurrent pneumonia, consistent with healthcare acquired. Previous cultures positive for Pseudomonas. Continues to require inpatient management. Responding to therapy. Problems addressed as follows: Left lower lobe pneumonia due to Pseudomonas Acute on chronic respiratory failure with hypoxia and hypercarbia Pulmonary emboli, previously diagnosed - Previous sputum cultures positive for Pseudomonas. Continue broad-spectrum antibiotics with azithromycin 500 mg daily and cefepime 2 g every 8 hours. - Blood and sputum cultures pending. - Continue Vanco his sputum has gram-positive cocci. Awaiting cultures and sensitivity -White count improved to 19.9, down from 28. Repeat CBC, CMP, magnesium ordered for the morning - PSI port score of 99, class IV risk. Necessitating inpatient care - Pulmonology consulted to evaluate in the morning. - Continue DuoNebs every 6 hours scheduled. Continue Pulmicort twice daily. - hold on Advair pending improvement in respiratory status and de-escalation of DuoNebs - Consider lung biopsy as an outpatient due to her pulmonary nodules. - Due to previous PE, continue Eliquis 5 mg twice daily - Goal sats greater 90%, currently on 2 L. This is her baseline. Kidney function normal with BUN 17, creatinine 0.6, magnesium 1.1 and potassium 3.0. Aggressive replacement with electrolyte protocol today. Personally ordered 3 doses of 2 g each magnesium IV. A-fib with RVR: - Continue digoxin 125 mcg daily, continue metoprolol succinate 100 mg nightly. Continue Eliquis 5 mg twice daily - Rate control stable, discontinue telemetry #Peripheral vascular disease Sees podiatry. Had recent fracture of her left foot. Podiatry is following. Small wound to dorsum of left foot. Nickel sized with granulation tissue. Does not appear infected. Depression: Continue Cymbalta 30 mg daily, alprazolam 0.5 mg twice daily as needed given concern for polypharmacy Hypertension: Normotensive at this time. Hold amlodipine and losartan. Resume Lasix 40 mg daily starting tomorrow due to elevated BNP of approximately 1500 Neuropathy: Continue gabapentin at reduced dose of 400 mg 3 times a day due to polypharmacy and confusion on presentation Full code Regular diet PT and OT evaluating Eliquis 5 mg twice daily
--- NOTE | 2024-12-13 17:01 | PC.NURSE ---
Addendum entered by Fran Rivera RN 12/13/24 18:53: Update: Pt was sleeping and oxygen dropped to 88%. Pt was titrated to 3 L nc and O2 is currently 91%. Original Note: Pt A&O x4. Pt has remained on 2L nasal cannula, which is her baseline. Pt has not reported any shortness of air or difficulty breathing. Pt has had a large amount of urinary output this shift. Pt is on the electrolyte replacement protocol, and her magnesium and potassium are being replaced per MAR. Pt did have a temperature of 100.3, and medicated per MAR. Pt reported having a better day today. POC ongoing.
[2024-12-13] MEDS: MONTELUKAST SODIUM 10MG TAB 10 MG PO (18:03)
[2024-12-13] MEDS: METOPROLOL SUCCINATE XL 100MG TABLET 100 MG PO (20:20)
[2024-12-13] MEDS: GABAPENTIN 400MG CAPSULE 400 MG PO (20:21)
[2024-12-14] VITALS (11 sets, daily range): BP systolic 131–148; BP diastolic 57–78; PULSE 70–110; RESP 16–22; TEMP 36.6–37.9; O2SAT 74–94; BMI 23.6
[2024-12-14] MEDS: BUDESONIDE 0.5MG/2ML NEB 0.5 MG IH (05:58)
[2024-12-14] MEDS: IPRATROPIUM/ALBUTEROL 3 ML NEB IH ×2 (05:58→11:12)
--- NOTE | 2024-12-14 06:46 | PC.NURSE ---
Pt A&OX4. She is still requiring 3L nasal cannula. She has received duonebs and abx throughout the shift. She still remains lethargic. Purewick in place. No complaints at this time, call light within reach.
[2024-12-14 06:48] LABS: Eosinophils # 0.1 Kmm3 (0.0-0.4); Eosinophils % 0.5 % (0.1-12.0); Lymphocytes # 0.9 K/mm3 (0.7-4.5); Neutrophils % 88.1 % (37.0-80.0); Nucleated Red Blood Cells # 0 10^3/uL; Nucleated Red Blood Cells % 0 %; Red Cell Distribution Width 14.6 % (11.5-17.5)
[2024-12-14 07:09] LABS: Albumin Level 3.1 g/dl (3.5-5.0); Chloride 88 mmol/L (98-107); Sodium 130 mmol/L (136-145)
[2024-12-14 07:12] LABS: Alanine Aminotransferase 16 U/L (12-78); Albumin/Globulin Ratio 1.1 (1.1-1.8); Alkaline Phosphatase 81 U/L (38-126); Aspartate Amino Transferase 27 U/L (14-36); Bilirubin,Total 0.4 mg/dl (0.2-1.3); Blood Urea Nitrogen 18 mg/dl (7-17); Creatinine Clearance Estimated 46 mL/min (50-200); Estimated Glomerular Filt Rate 122 ml/min (>60); GFR (African American) 148 ML/MIN (>60); Globulin 2.7 g/dL (1.3-3.2); Total Protein,Serum 5.8 g/dl (6.3-8.2)
[2024-12-14 07:13] LABS: Calcium 9.2 mg/dl (8.4-10.2); Glucose 101 mg/dl (74-100)
[2024-12-14 07:21] LABS: Carbon Dioxide 38 mmol/L (22.0-30.0)
[2024-12-14 07:42] LABS: Magnesium 1.6 mg/dl (1.6-2.3); Phosphorous 2.2 mg/dl (2.5-4.5)
[2024-12-14 07:44] LABS: Basophils # 0.1 K/mm3 (0-0.2); Basophils % 0.3 % (0.1-2.0); Hematocrit 34.5 % (37.0-47.0); Immature Granulocytes % 1.2 %; Lymphocytes % 5.3 % (10-50); Mean Corpuscular HGB Conc 31.3 g/dL (31.8-35.4); Mean Corpuscular Hemoglobin 29.2 pg (27.0-31.2); Mean Corpuscular Volume 93.2 fl (81-99); Mean Platelet Volume 10.2 fl (7.4-10.4); Monocytes # 0.8 K/mm3 (0.1-1.0); Monocytes % 4.6 % (1.7-9.3); Neutrophils # 14.9 K/mm3 (1.8-7.8); Platelet Count 207 K/mm3 (142-424); Red Cell Distribution Width-SD 50.4 fL; White Blood Count 16.9 K/mm3 (4.8-10.8)
--- NOTE | 2024-12-14 07:49 | EXP.DC.SUM ---
General Admission date:: 12/11/24 Discharge date: 12/14/24 HPI HPI HPI: This is a 69-year-old female with past medical history of COPD, chronic respiratory failure on 2 L nasal cannula at night and as needed who presents emergency department for worsening shortness of breath. Was just admitted 2 weeks ago for similar presentation. Diagnosed with pneumonia and PE. Completed antibiotics as an outpatient. On workup in the ER, white count elevated 29, CT of chest shows worsening pneumonia on left side. Increased oxygen requirement to 4 L. Placed on BiPAP. Medicine consulted for admission and further management. Received cefepime in the ED. Blood cultures obtained. Continues to smoke at least a pack a day. Oriented to self and place on arrival to the floor. Hospital Course Hospital Course Hospital Course: 69-year-old female with COPD on chronic oxygen therapy, presented Meeting sepsis criteria with tachycardia, tachypnea, white count of 29,000 and worsening left lower lobe pneumonia. Discussed case with ER physician, request admission for further management of acute on chronic hypoxemic respiratory failure. Placed on BiPAP in the ED. I agreed to admit for further care. Showing some improvement, weaned to nasal cannula oxygen by the time she arrived to the stepdown unit. Appears to be a recurrent pneumonia, consistent with healthcare acquired. Previous cultures positive for Pseudomonas. Responded to inpatient management. Doing better. Improved to baseline oxygen. Pulmonology consulted during admission. Stable to discharge home. Problems addressed as follows Left lower lobe pneumonia due to Pseudomonas Acute on chronic respiratory failure with hypoxia and hypercarbia Pulmonary emboli, previously diagnosed - Previous sputum cultures positive for Pseudomonas. Initiated on broad-spectrum antibiotics with azithromycin and cefepime during admission. Given tracey sensitivity of Pseudomonas, will transition to Levaquin to complete 7 days of therapy. Renally dosed 750 mg every other day. Pulmonology evaluated prior to discharge. Patient improved to baseline oxygen. Follow-up in 1 to 2 weeks with pulmonology as an outpatient. - White count elevated at 28 on admission. Improved to 17 by day of discharge. Afebrile for over 24 hours. PSI port score of 99, class IV risk. Necessitated inpatient care - Continue nebs per home regimen. Resume Advair 500 inhaler. Will have follow-up with pulmonology to discuss evaluation of pulmonary nodules and possible biopsy. Continue Eliquis 5 mg twice daily for her PE. Stable on home oxygen of 2 to 3 L with sats greater 90%. A-fib with RVR: - Continue digoxin 125 mcg daily, continue metoprolol succinate 100 mg nightly. Continue Eliquis 5 mg twice daily. Rate control stable. #Peripheral vascular disease: Sees podiatry. Had recent fracture of her left foot. Podiatry is following. Small wound to dorsum of left foot. Nickel sized with granulation tissue. Does not appear infected. Depression: Continue Cymbalta 30 mg daily, alprazolam 0.5 mg twice daily as needed given concern for polypharmacy during admission. Recommend reevaluation as an outpatient with PCP/prescriber of her Xanax Hypertension: Normotensive at this time. Held blood pressure med during admission. Resume at discharge due to improvement in blood pressure. Neuropathy: Continue gabapentin at reduced dose of 400 mg 3 times a day due to polypharmacy and confusion on presentation. Recommend continuing to consider dose reduction after discharge Total time spent on discharge 32 minutes in counseling, documentation, chart review, and direct care with patient. Exam Data for Last 24 hours Vital signs and Labs for Last 24 Hours: Temp Pulse Resp BP Pulse Ox O2 Del Method O2 Flow Rate 98.3 F 87 19 146/61 H 89 L Nasal Cannula 3 12/14/24 04:00 12/14/24 05:58 12/14/24 04:00 12/14/24 04:00 12/14/24 05:58 12/14/24 06:40 12/14/24 06:40 FiO2 28 12/13/24 19:08 I & O for Last 24 hours: Intake & Output 12/11/24 12/12/24 12/13/24 12/14/24 23:59 23:59 23:59 23:59 Intake Total 2360 / 2360 1380 / 1480 700 / 800 100 / 100 Output Total 575 / 575 1150 / 1150 2049 / 2049 325 / 325 Balance 1785 / 1785 230 / 330 -1350 / -1250 -225 / -225 Weight 56.331 kg 56.79 kg 54.431 kg 54.431 kg Microbiology Reports for the Last 24 Hours: Microbiology 12/11/24 15:53 Blood Blood Culture - Preliminary NO GROWTH AFTER 48 HOURS 12/11/24 15:47 Blood Blood Culture - Preliminary NO GROWTH AFTER 48 HOURS 12/11/24 19:48 Sputum - Expectorated Sputum Gram Stain - Final 12/11/24 19:48 Sputum - Expectorated Sputum Sputum Culture - Preliminary Results Data Completed and Pending Labs on day of discharge: Preliminary micro results at discharge 12/11/24 15:53 Blood Culture - Preliminary Blood NO GROWTH AFTER 48 HOURS 12/11/24 15:47 Blood Culture - Preliminary Blood NO GROWTH AFTER 48 HOURS 12/11/24 19:48 Sputum Culture - Preliminary Sputum - Expectorated Sputum DS: Diagnosis Discharge Diagnosis (1) Acute respiratory failure with hypoxia and hypercarbia: Status: Acute Code(s): J96.01 - Acute respiratory failure with hypoxia; J96.02 - Acute respiratory failure with hypercapnia (2) Pneumonia: Status: Acute Code(s): J18.9 - Pneumonia, unspecified organism Qualifiers: Laterality: left Lung location: lower lobe of lung Pneumonia type: due to Pseudomonas Qualified Code(s): J15.1 - Pneumonia due to Pseudomonas (3) Acute exacerbation of chronic obstructive pulmonary disease: Status: Acute Code(s): J44.1 - Chronic obstructive pulmonary disease with (acute) exacerbation (4) Atrial fibrillation: Status: Acute Code(s): I48.91 - Unspecified atrial fibrillation (5) Lung nodule: Status: Acute Code(s): R91.1 - Solitary pulmonary nodule (6) Peripheral vascular disease: Status: Acute Code(s): I73.9 - Peripheral vascular disease, unspecified (7) Hypertension: Status: Acute Code(s): I10 - Essential (primary) hypertension (8) Smoking greater than 30 pack years: Status: Chronic Code(s): F17.210 - Nicotine dependence, cigarettes, uncomplicated Meds Home Medications and Allergies Home Medications ?Medication ?Instructions ?Recorded ?Confirmed ?Type albuterol sulfate 90 mcg/actuation 2 inh inhalation Q6H 04/15/24 12/12/24 History aerosol inhaler alprazolam 1 mg tablet 1 mg PO BID 04/15/24 12/12/24 History calcium 600 mg (as 1 tab PO BIDWMEAL 04/15/24 12/12/24 History carbonate)-vitamin D3 5 mcg (200 unit) tablet celecoxib 50 mg capsule 50 mg PO DAILY 04/15/24 12/12/24 History cholecalciferol (vitamin D3) 1,250 1,250 mcg PO WEEKLY 04/15/24 12/12/24 History mcg (50,000 unit) capsule duloxetine 30 mg capsule,delayed 30 mg PO DAILY 04/15/24 12/12/24 History release gabapentin 800 mg tablet 800 mg PO TID 04/15/24 12/12/24 History losartan 100 mg tablet 100 mg PO DAILY 04/15/24 12/12/24 History montelukast 10 mg tablet 10 mg PO PM 04/15/24 12/12/24 History potassium chloride 20 mEq 20 meq PO BID 04/15/24 12/12/24 History tablet,extended release(part/cryst) amlodipine 10 mg tablet 10 mg PO DAILY #30 tabs 04/16/24 12/12/24 Rx furosemide 40 mg tablet 40 mg PO DAILY 30 days #30 tabs 08/16/24 12/12/24 Rx magnesium gluconate 27 mg 27 mg PO DAILY 11/29/24 12/12/24 History magnesium (500 mg) tablet plecanatide 3 mg tablet (Trulance) 3 mg PO DAILY 11/29/24 12/12/24 History apixaban 5 mg (74 tabs) tablets in 5 mg PO BID #74 tabs 12/01/24 12/12/24 Rx a dose pack ([employer] DVT-PE Treat 30D Start) digoxin 125 mcg (0.125 mg) tablet 125 mcg PO DAILY #30 tabs 12/01/24 12/12/24 Rx fluticasone 500 mcg-salmeterol 50 1 inh inhalation BIDRT 30 days #60 12/01/24 12/12/24 Rx mcg/dose blistr powdr for ea inhalation (Advair Diskus) ipratropium 0.5 mg-albuterol 3 mg 3 ml inhalation Q4HP PRN Shortness 12/01/24 12/12/24 Rx (2.5 mg base)/3 mL nebulization Of Breath Or Wheezing 30 days #90 soln mL metoprolol succinate 100 mg 100 mg PO HS 30 days #30 tabs 12/01/24 12/12/24 Rx tablet,extended release 24 hr levofloxacin 750 mg tablet 750 mg PO DAILY 3 days #2 tabs 12/14/24 Rx New Prescriptions to Start Prescriptions: levofloxacin Teja Blair Allergies Allergy/AdvReac Type Severity Reaction Status Date / Time No Known Allergies Allergy Verified 11/17/24 15:18 Discharge Plan Disposition Patient Disposition: Home, Self-Care Condition: Fair Discharge Order Discharge Orders: Discharge Order (Routine); Ordered 12/14/24 Ordered By: Teja Blair Follow up Plan Follow up with: Stephanie Espinoza APRN [Primary Care Provider, Medical] - Enter time for follow up Srini Gan MD [Physician, Pulmonology] - Enter time for follow up Prescriptions/Medication Reconciliation: New levofloxacin 750 mg tablet 750 mg PO DAILY 3 Days Qty: 2 0RF Rx Instructions: first dose 12/15/24 Continued furosemide 40 mg tablet 40 mg PO DAILY 30 Days Qty: 30 0RF alprazolam 1 mg tablet 1 mg PO BID montelukast 10 mg tablet 10 mg PO PM losartan 100 mg tablet 100 mg PO DAILY celecoxib 50 mg capsule 50 mg PO DAILY duloxetine 30 mg capsule,delayed release(DR/EC) 30 mg PO DAILY calcium carbonate-vitamin D3 600 mg-5 mcg (200 unit) tablet 1 tab PO BIDWMEAL gabapentin 800 mg tablet 800 mg PO TID cholecalciferol (vitamin D3) 1,250 mcg (50,000 unit) capsule 1,250 mcg PO WEEKLY albuterol sulfate 90 mcg/actuation HFA aerosol inhaler 2 inh INHALATION Q6H potassium chloride 20 mEq tablet,ER particles/crystals 20 meq PO BID Rx Instructions: with food amlodipine 10 mg Tablet 10 mg PO DAILY Qty: 30 0RF magnesium gluconate 27 mg magnesium (500 mg) tablet 27 mg PO DAILY Patient Comments: TAKE ONE TABLET BY MOUTH ONCE A DAY Trulance 3 mg tablet 3 mg PO DAILY metoprolol succinate 100 mg Tablet Extended Release 24 Hr 100 mg PO HS 30 Days Qty: 30 0RF fluticasone propion-salmeterol [Advair Diskus] 500-50 mcg/dose Blister With Device 1 inh inhalation BIDRT 30 Days Qty: 60 0RF ipratropium-albuterol 0.5 mg-3 mg(2.5 mg base)/3 mL Solution For Nebulization 3 ml inhalation Q4HP PRN (Reason: Shortness Of Breath Or Wheezing) 30 Days Qty: 90 0RF Eliquis DVT-PE Treat 30D Start 5 mg (74 tabs) tablets,dose pack 5 mg PO BID Qty: 74 0RF digoxin 125 mcg (0.125 mg) tablet 125 mcg PO DAILY Qty: 30 0RF Problem Reconciliation Problems Reviewed?: Yes Patient Discharge Instructions ACTIVITY: Continue current activity DIET: continue same diet Patient Instructions: DI for Chronic Obstructive Pulmonary Disease, DI for Pneumonia -- Adult, DI for Respiratory Failure Print Language: Macedonian Providers Primary Care Provider: Stephanie Espinoza Admit Provider: Teja Blair Attending Provider: Teja Blair
--- NOTE | 2024-12-14 08:35 | SW/DCPLANNER ---
Addendum entered by Kim Mcdonald RN 12/18/24 15:37: Patient discharging to [facility] today. Son is scheduled to transport. Addendum entered by [facility] 12/17/24 08:09: I have called and updated patient's daughter. I am unable to get in contact w/ patient's son. Daughter stated that she will update son. Addendum entered by [facility] 12/17/24 08:06: Per Olman patient has been approved SNF level of care. Patient will discharge to [facility] SNF level of care today. Addendum entered by [facility] 12/16/24 12:00: Per Olman w/ [facility] a peer to peer has been requested. I will relay the information to [facility]. Addendum entered by [facility] 12/16/24 09:14: Per Olman / [facility] auth is still pending at this time. Addendum entered by [facility] 12/15/24 11:12: Per Olman precert will be started today. Addendum entered by [facility] 12/15/24 10:46: Patient agrees w/ [facility] in [facility] to start precert. I will continue to follow up w/ michael, and attempt to get ahold of son. Addendum entered by [facility] 12/15/24 09:38: [facility], [facility], [facility]. I am waiting on return phone call from son. I have contacted patient's daughter to also reach out to son. Addendum entered by [facility] 12/15/24 07:55: [facility] willing to accept patient and start a precert. I discuss this w/ patient this AM and she asked that I contact her son prior to agreeing. I attempted to contact son: no answer/VM left. Addendum entered by [facility] 12/14/24 15:07: Per patient after speaking w/ and son she is now agreeable to placement. Patient prefers [place] facility but is agreeable to explore further if needed. Currently [facility], [facility], [facility] and [facility] do not accept patient's insurance. I am waiting to hear back from [place]. I have faxed patient information to [facility], [facility] and [facility]. I will continue to follow up w/ patient and facilities. Per MD patient is medically stable for discharge. Addendum entered by Tiana Sandhu 12/14/24 10:00: Patient is also not interested in placement at this time. Original Note: I spoke w/ patient regarding plans once medically stable for discharge. PT evaluated patient and recommended home health services plus 24/ care. Patient stated that she resides at home w/ her son. Patient also expressed that she is not interested in home health services at this time. I explained the importance of home health and insurance coverage patient continues to deny services. I did offer outpatient PT services: patient also denies services. I will continue to follow up w/ patient during hospital admission. Discharge date is unknown at this time.
[2024-12-14 08:47] LABS: Hemoglobin 10.8 g/dL (12.2-16.2)
--- NOTE | 2024-12-14 09:15 | PC.NURSE ---
TECH NOTE; ROOM AIR SATURATION OF 74, HOSPITALIST NOTIFIED Torie SOLIS, SRNA
[2024-12-14] MEDS: DIGOXIN 0.125MG TABLET 125 MCG PO (09:42)
[2024-12-14] MEDS: DULOXETINE 30MG CAPSULE.DR 30 MG PO (09:42)
[2024-12-14] MEDS: APIXABAN 5MG TABLET 5 MG PO (09:42)
[2024-12-14] MEDS: FUROSEMIDE 40 MG TABLET PO (09:42)
[2024-12-14] MEDS: CEFEPIME HCL 2 GM in 0.9 % SODIUM CHLORIDE 100 ML IV (09:43)
[2024-12-14] MEDS: K-PHOS NEUTRAL 250MG TABLET 250 MG PO (09:43)
[2024-12-14] MEDS: GABAPENTIN 400MG CAPSULE 400 MG PO ×2 (09:45→12:32)
[2024-12-14] MEDS: ALPRAZolam 0.5MG TABLET 0.5 MG PO (09:49)
--- NOTE | 2024-12-14 09:53 | HMH.OTEV ---
OT Inpatient Evaluation Rehab OT IP Evaluation Start: 12/11/24 18:13 Freq: ONCE Status: Active Protocol: Document 12/14/24 09:47 BRANDON (Rec: 12/14/24 09:53 BRANDON [id number]) Rehab OT IP Assessment Subjective History Per H&P: This is a 69-year-old female with past medical history of COPD, chronic respiratory failure on 2 L nasal cannula at night and as needed who presents emergency department for worsening shortness of breath. Was just admitted 2 weeks ago for similar presentation. Diagnosed with pneumonia and PE. Completed antibiotics as an outpatient. On workup in the ER, white count elevated 29, CT of chest shows worsening pneumonia on left side. Increased oxygen requirement to 4 L. Placed on BiPAP. Medicine consulted for admission and further management. Received cefepime in the ED. Blood cultures obtained. Subjective I feel fine. Pt was supine in bed when therapy arrived. Pt was orient x3. Pt reported they live with son in single story home with 4 steps w/ hand rails. pt reported they drive occasionally w/ son driving most time. pt reported they have grab bars in the shower and have a shower chair. pt reported they are ind in dressing and bathing. pt reported they can cook, but son does assist with cooking and cleaning. pt reported they are on O2 at home on 1 1/2 L, presently on 3 L . Pt reported they use a cane for functional mobility. Pt agreed to sit on side of bed. Pt went from supine to EOB with SBA. pt able to tolerate sitting upright and hold static sitting balance well. pt then went from EOB to supine with SBA. pt left with call light and all other needs within reach. Objective Patient Orientation Person,Place,Birthday Right Upper WFL Extremity Gross ROM Left Upper Extremity WFL Gross ROM Bed Mobility bed mobility-scooting,bed mobility - supine/sit Assist Level Supervision/Stand by Decrease in Yes Endurance Rehab OT IP prob,goals,plan Problems Date of Evaluation: 12/14/24 OT IP Problems Bed Mobility,Transfers,Balance,Self care,Safety Rehab Potential Rehab Potential Good Equipment Needs Assistive Devices Straight Cane,Standard Walker Plan OT intervention Plan Bed Mobility,Transfers,Balance,Self care,Safety, Therapeutic Exercise OT Plan Frequency Daily Duration LOS Discharge Goals Bed Mobility Ability Independent Sit to Stand Chair Supervision/Stand by Transfer Ability Chair Transfer Supervision/Stand by Ability Chair Transfer Sit to/from Ambulatory Technique Chair Transfer Standard Walker Assistive Devices Feeding Ability Assist with Tray Set Up Commode/Toilet Raised Toilet Seat,Grab Bars Transfer Assistive Devices Decrease in No Endurance Discharge Plan OT Discharge Plan At this time, pt is below baseline and would benefit from skilled OT services and interventions while admitted at [facility]. if pt has 24/7 care, pt could go home with Home health services to address functional limitations in occupational performance. Pt pt has no 24/7 care, pt would benefit from rehab placement to address functional limitations in occupational performance. Eval Complexity Eval Charge Codes 26016 - Moderate Complexity PHYSICIAN CERTIFICATION: I certify the specified therapy services for Iqra Balbuena are required, authorized, and reviewed every 30 days.
--- NOTE | 2024-12-14 09:54 | EXP.PULM.CON ---
History of Present Illness History of present illness: Ms. Balbuena is a 69-year-old female greater than 32-lwkm-qmqa smoking history severe COPD recently admitted to the hospital discharge, managed for COPD exacerbation and pulmonary embolism presented today with worsening respiratory distress and pulmonary was called for further evaluation management. [facility] Disclaimer: The information contained in this section may have been updated after the patient was seen, as this information can be updated by other users. Medical History Pneumonia Fecal occult blood test positive Sepsis without septic shock Lymphedema Physical deconditioning General weakness Lung mass Hypomagnesemia Acute hypokalemia Chronic hyponatremia Generalized weakness COPD mixed type Lung nodule Hypokalemia Elevated troponin COPD (chronic obstructive pulmonary disease) Nocturnal hypoxemia Pulmonary emphysema Incidental pulmonary nodule, greater than or equal to 8mm Smoking greater than 30 pack years Dyspnea on exertion Tobacco abuse disorder Tobacco abuse counseling COPD (chronic obstructive pulmonary disease) Cervical cancer Surgical History History of dilation and curettage History of back surgery Family History Diabetes Social History (Updated 12/11/24 @ 18:08 by Jessika Dawson RN) Smoking Status: Current every day smoker tobacco type: cigarettes packs per day: 2 second hand exposure: Yes alcohol intake: current alcohol intake frequency: 0-2 drinks per day current occupational status: unemployed Travel in the last 8 weeks?: None household members: spouse housing: house current occupational exposures/hazards: No Have you lived/traveled outside [place] in past 30 days?: No Contact w/someone who lives/traveled outside [place] past 30 days?: No Exposure to someone with infectious disease in past 14 days?: No Do you have a fever (greater than 100.4 F or 38 C)?: No Have you tested positive for COVID-19?: No Exposed to someone with COVID-19 in past 14 days?: No Do you have a sore throat?: No Do you have a cough?: No Do you have any weakness?: Yes Do you have any diarrhea?: No Are you experiencing any unusual bleeding?: No Do you have any muscle aches/pain?: No Do you have any abdominal pain?: No Are you experiencing loss of taste or smell?: No Review of Systems Constitutional Constitutional: Reports anorexia, Reports body ache(s) and Reports fatigue Eyes Eyes: Denies eye discharge, Denies dry eyes, Denies irritation and Denies itchy eyes ENT Ears, Nose, Mouth, and Throat: Denies epistaxis, Denies facial pain, Denies lip swelling and Denies throat swelling *Cardiovascular Cardiovascular: Reports dyspnea and Reports dyspnea on exertion *Respiratory Respiratory: Reports change in phlegm color, Reports chest congestion, Reports cough, Reports dyspnea, Reports dyspnea on exertion, Reports excessive phlegm production, Denies hemoptysis, Denies pain on inspiration, Denies pain with cough and Reports wheezing *Gastrointestinal Gastrointestinal: Denies abdominal pain, Denies belching and Denies cramping *Musculoskeletal Musculoskeletal: Reports back pain, Reports myalgias and Reports other (No small joint swelling or Pain) Psychiatric Psychiatric: Denies homicidal ideation and Denies suicidal ideation Endocrine Endocrine: Reports fatigue and Denies heat intolerance Hematologic/Lymphatic Hematologic/Lymphatic: Denies easy bleeding and Denies lymphadenopathy Allergic/Immunologic Allergic/Immunologic: Denies itchy eyes, Denies lip swelling, Denies throat swelling and Reports wheezing Pulmonology Exam Inpatient Vital signs and Labs for Last 24 Hours: Temp Pulse Resp BP Pulse Ox O2 Del Method O2 Flow Rate 97.9 F 95 H 22 131/78 74 L Room Air 3 12/14/24 08:00 12/14/24 08:00 12/14/24 08:00 12/14/24 08:00 12/14/24 09:15 12/14/24 09:15 12/14/24 09:00 FiO2 28 12/13/24 19:08 Laboratory Results - last 24 hr 12/14/24 05:49: WBC 16.9 H, RBC 3.70 L, Hgb 10.8 L D, Hct 34.5 L, MCV 93.2, MCH 29.2, MCHC 31.3 L, RDW 14.6, Plt Count 207 D, MPV 10.2, Neut % (Auto) 88.1 H, Lymph % (Auto) 5.3 L, [place] % (Auto) 4.6, Eos % (Auto) 0.5, Baso % (Auto) 0.3, Neut # (Auto) 14.9 H, Lymph # (Auto) 0.9, [place] # (Auto) 0.8, Eos # (Auto) 0.1, Baso # (Auto) 0.1, Sodium 130 L, Potassium 4.0 D, Chloride 88 L, Carbon Dioxide 38 H, Anion Gap 8.0, BUN 18 H, Creatinine 0.50 L, Estimated Creat Clear 46, Estimated GFR 122, Est GFR ( Amer) 148 D, Glucose 101 H, Calcium 9.2, Phosphorus 2.2 L, Magnesium 1.6 D, Total Bilirubin 0.4, AST 27 D, ALT 16, Alkaline Phosphatase 81, Total Protein 5.8 L, Albumin 3.1 L D, Globulin 2.7, Albumin/Globulin Ratio 1.1 I & O for Labs for Last 24 Hours: Intake & Output 12/11/24 12/12/24 12/13/24 12/14/24 23:59 23:59 23:59 23:59 Intake Total 2360 / 2360 1380 / 1480 700 / 800 580 / 580 Output Total 575 / 575 1150 / 1150 0 / 205 325 / 325 Balance 1785 / 1785 230 / 330 -1350 / -1250 255 / 255 Weight 124 lb 3 oz 125 lb 3.208 oz 120 lb 120 lb Microbiology Reports for the Last 24 Hours: Microbiology 12/11/24 15:53 Blood Blood Culture - Preliminary NO GROWTH AFTER 48 HOURS 12/11/24 15:47 Blood Blood Culture - Preliminary NO GROWTH AFTER 48 HOURS 12/11/24 19:48 Sputum - Expectorated Sputum Gram Stain - Final 12/11/24 19:48 Sputum - Expectorated Sputum Sputum Culture - Preliminary Constitutional: Present moderate distress Head: Present normocephalic and atraumatic ENT: Present normal exam, normal oropharynx and mucous membranes moist Neck: Present normal inspection and full ROM Respiratory: Present respiratory distress, rhonchi, diminished air movement and able to speak in complete sentences; Absent wheezes or crackles Cardiac: Present S1/S2, Tachycardia and radial pulses present GI: Present soft and distention; Absent tenderness or guarding Rectal (female): Present deferred (female): Present deferred Skin: Present intact; Absent cyanosis or jaundice Neuro: Present alert, awake and oriented x 3 Extremities: Present normal inspection; Absent clubbing or cyanosis Psychiatric: Present normal affect and cooperative Meds Home Medications and Allergies Home Medications ?Medication ?Instructions ?Recorded ?Confirmed ?Type albuterol sulfate 90 mcg/actuation 2 inh inhalation Q6H 04/15/24 12/12/24 History aerosol inhaler alprazolam 1 mg tablet 1 mg PO BID 04/15/24 12/12/24 History calcium 600 mg (as 1 tab PO BIDWMEAL 04/15/24 12/12/24 History carbonate)-vitamin D3 5 mcg (200 unit) tablet celecoxib 50 mg capsule 50 mg PO DAILY 04/15/24 12/12/24 History cholecalciferol (vitamin D3) 1,250 1,250 mcg PO WEEKLY 04/15/24 12/12/24 History mcg (50,000 unit) capsule duloxetine 30 mg capsule,delayed 30 mg PO DAILY 04/15/24 12/12/24 History release gabapentin 800 mg tablet 800 mg PO TID 04/15/24 12/12/24 History losartan 100 mg tablet 100 mg PO DAILY 04/15/24 12/12/24 History montelukast 10 mg tablet 10 mg PO PM 04/15/24 12/12/24 History potassium chloride 20 mEq 20 meq PO BID 04/15/24 12/12/24 History tablet,extended release(part/cryst) amlodipine 10 mg tablet 10 mg PO DAILY #30 tabs 04/16/24 12/12/24 Rx furosemide 40 mg tablet 40 mg PO DAILY 30 days #30 tabs 08/16/24 12/12/24 Rx magnesium gluconate 27 mg 27 mg PO DAILY 11/29/24 12/12/24 History magnesium (500 mg) tablet plecanatide 3 mg tablet (Trulance) 3 mg PO DAILY 11/29/24 12/12/24 History apixaban 5 mg (74 tabs) tablets in 5 mg PO BID #74 tabs 12/01/24 12/12/24 Rx a dose pack (Eliquis DVT-PE Treat 30D Start) digoxin 125 mcg (0.125 mg) tablet 125 mcg PO DAILY #30 tabs 12/01/24 12/12/24 Rx fluticasone 500 mcg-salmeterol 50 1 inh inhalation BIDRT 30 days #60 12/01/24 12/12/24 Rx mcg/dose blistr powdr for ea inhalation (Advair Diskus) ipratropium 0.5 mg-albuterol 3 mg 3 ml inhalation Q4HP PRN Shortness 12/01/24 12/12/24 Rx (2.5 mg base)/3 mL nebulization Of Breath Or Wheezing 30 days #90 soln mL metoprolol succinate 100 mg 100 mg PO HS 30 days #30 tabs 12/01/24 12/12/24 Rx tablet,extended release 24 hr New Prescriptions to Start Prescriptions: Allergies Allergy/AdvReac Type Severity Reaction Status Date / Time No Known Allergies Allergy Verified 11/17/24 15:18 Results Laboratory Findings 12/14/24 05:49 12/14/24 05:49 PT/INR, D-dimer PT 11.4 seconds (10.1-12.5) 12/11/24 15:47 INR 1.03 (0.9-1.1) 12/11/24 15:47 Abnormal lab findings: Abnormal Labs 12/11/24 12/11/24 12/11/24 15:47 15:54 19:00 WBC 29.8 H* RBC Hgb Hct MCHC 30.9 L Neut % (Auto) 91.6 H Lymph % (Auto) 4.6 L Eos % (Auto) 0.0 L Neut # (Auto) 27.3 H Neutrophils % (Manual) 91 H Lymphocytes % (Manual) 7 L Monocytes % (Manual) VBG pO2 49.0 H VBG Total CO2 29.3 H VBG O2 Saturation 84.5 H VBG Lactic Acid 2.6 H Sodium 133 L Potassium Chloride 93 L Carbon Dioxide 35 H Anion Gap BUN Creatinine 1.10 H Estimated GFR 49 L Glucose 101 H POC Glucose Lactate Phosphorus Magnesium Troponin I 0.05 H 0.04 H C-Reactive Protein 50.1 H NT-Pro-B Natriuret Pep 1620 H Total Protein Albumin 12/11/24 12/12/24 12/12/24 21:25 01:35 05:39 WBC 28.7 H* RBC 3.93 L Hgb 11.8 L D Hct MCHC Neut % (Auto) 93.3 H Lymph % (Auto) 3.3 L Eos % (Auto) 0.0 L Neut # (Auto) 26.8 H Neutrophils % (Manual) 94 H Lymphocytes % (Manual) 5 L Monocytes % (Manual) 1 L VBG pO2 VBG Total CO2 VBG O2 Saturation VBG Lactic Acid Sodium 132 L Potassium Chloride 97 L Carbon Dioxide 31 H Anion Gap BUN 19 H Creatinine Estimated GFR Glucose 145 H D POC Glucose 146 H Lactate 3.1 H Phosphorus Magnesium Troponin I 0.04 H C-Reactive Protein NT-Pro-B Natriuret Pep Total Protein 5.7 L Albumin 3.4 L D 12/13/24 12/14/24 06:36 05:49 WBC 19.9 H D 16.9 H RBC 3.38 L 3.70 L Hgb 9.8 L 10.8 L D Hct 31.3 L 34.5 L MCHC 31.3 L 31.3 L Neut % (Auto) 89.9 H 88.1 H Lymph % (Auto) 4.5 L 5.3 L Eos % (Auto) Neut # (Auto) 17.9 H 14.9 H Neutrophils % (Manual) Lymphocytes % (Manual) Monocytes % (Manual) VBG pO2 VBG Total CO2 VBG O2 Saturation VBG Lactic Acid Sodium 129 L 130 L Potassium 3.0 L D Chloride 92 L 88 L Carbon Dioxide 36 H 38 H Anion Gap 4.0 L BUN 18 H Creatinine 0.50 L Estimated GFR Glucose 118 H 101 H POC Glucose Lactate Phosphorus 2.2 L Magnesium 1.1 L D Troponin I C-Reactive Protein NT-Pro-B Natriuret Pep Total Protein 5.2 L 5.8 L Albumin 2.8 L D 3.1 L D Assessment and Plan *Assessment and plan (1) Sepsis due to pneumonia: Status: Acute Category: Medical Code(s): J18.9 - Pneumonia, unspecified organism; A41.9 - Sepsis, unspecified organism (2) Acute and chronic respiratory failure with hypoxia: Status: Acute Category: Medical Code(s): J96.21 - Acute and chronic respiratory failure with hypoxia (3) Lung nodule: Status: Acute Category: Medical Code(s): R91.1 - Solitary pulmonary nodule Plan Ms. Balbuena is a 69-year-old female greater than 87-ospg-tsgi smoking history severe COPD recently admitted to the hospital discharge, managed for COPD exacerbation and pulmonary embolism presented today with worsening respiratory distress and pulmonary was called for further evaluation management. Labs upon admission severe neutrophilic prominent leukocytosis with a white count of 29.8, improving. Blood gas upon admission did not show any evidence of hypercarbic respiratory failure, pH is 7.36 and pCO2 50.8. COVID-19 and flu PCR panel negative. CTA upon admission, multilobar consolidative changes predominantly left-sided, left upper lingula and lower lobes. Continue to show right upper lobe nodular opacity. The left-sided pneumonia is new from her most recent hospital admission CT from 11/30/2024. CTA on this admission did not show any obvious evidence of pulmonary embolism. Sputum cultures from most recent admission grew Pseudomonas. Currently receiving cefepime. On examination moderate respiratory distress. No significant wheezing. Blood cultures no growth 48 hours. Plan: Antibiotics can be weaned to levofloxacin to complete a total of 7-day course. Follow-up with repeat sputum culture results. Advair 500 along with Spiriva HandiHaler. DuoNebs every 6 as needed No need for steroids at this point of time Continue oxygen supplementation to maintain O2 saturation goal of 90% and above. # For the concerning worsening right upper lobe lung nodule I previously had extensively discussed with the patient and will likely pursue lung biopsy at this point of time given worsening size on density despite previously being PET negative. Will follow the patient in pulmonary clinic 2 to 3 weeks postdischarge
[2024-12-14] MEDS: AZITHROMYCIN 500 MG in 0.9 % SODIUM CHLORIDE 250 ML 250 MG IV (10:32)
[2024-12-14] MEDS: LEVOFLOXACIN/D5W 750 MG/150 ML 750 MG/150 ML PIGGYBACK 100 MG IV (12:30)
[2024-12-14] MEDS: MAGNESIUM SULFATE IN WATER 2 GM/50 ML PIGGYBACK IV ×2 (12:30→16:27)
--- NOTE | 2024-12-14 14:45 | P.PN_ITS ---
Subjective *Date: 12/14/24 *Time: 21:29 Interval history: Patient remained stable on baseline 2-3 L oxygen at does not vomiting. Electrolyte disturbances noted today. Afebrile overnight. Tolerating p.o. intake. Still quite weak. Extensive discussion with patient about discharging home versus rehab. Patient initially was resistant to rehab. After we tried to discharge her home with son and she realized she could not do it on her own and he was very clear to her that she needed more help, she was amenable to considering rehab. Case management assisting with placement recommendations Medical Exam Vital signs and Labs for Last 24 Hours: Vital Signs Temp Pulse Pulse Resp BP Pulse Ox O2 Del Method 12/14/24 12:55 Nasal Cannula 12/14/24 12:00 98.6 F 94 H 20 142/64 H 92 L Nasal Cannula 12/14/24 11:13 99 H 12/14/24 11:13 95 H 12/14/24 11:13 88 L Nasal Cannula 12/14/24 11:00 Nasal Cannula 12/14/24 09:15 74 L Room Air 12/14/24 09:00 Nasal Cannula 12/14/24 08:00 Nasal Cannula 12/14/24 08:00 97.9 F 95 H 22 131/78 93 L Nasal Cannula 12/14/24 08:00 80 12/14/24 06:40 Nasal Cannula 12/14/24 05:58 87 12/14/24 05:58 86 12/14/24 05:58 89 L Nasal Cannula 12/14/24 05:00 Nasal Cannula 12/14/24 04:00 98.3 F 90 19 146/61 H 87 L Nasal Cannula 12/14/24 04:00 90 12/14/24 03:00 Nasal Cannula 12/14/24 01:00 Nasal Cannula 12/14/24 00:00 80 12/14/24 00:00 98.2 F 81 17 134/59 L 93 L Nasal Cannula 12/13/24 23:30 101 H 12/13/24 23:29 101 H 12/13/24 23:00 Nasal Cannula 12/13/24 21:00 Nasal Cannula 12/13/24 20:00 Nasal Cannula 12/13/24 20:00 120 H 12/13/24 19:56 98.1 F 106 H 19 139/74 91 L Nasal Cannula 12/13/24 19:08 Nasal Cannula 12/13/24 19:08 100 H 12/13/24 19:07 101 H 12/13/24 18:42 Nasal Cannula 12/13/24 17:33 98.6 F 12/13/24 17:00 Nasal Cannula 12/13/24 16:00 100 H 12/13/24 16:00 100.3 F H 99 H 22 136/62 87 L Nasal Cannula 12/13/24 15:00 Nasal Cannula O2 Flow Rate FiO2 12/14/24 12:55 3 12/14/24 12:00 3 12/14/24 11:13 12/14/24 11:13 12/14/24 11:13 3 12/14/24 11:00 3 12/14/24 09:15 12/14/24 09:00 3 12/14/24 08:00 2 12/14/24 08:00 2 12/14/24 08:00 12/14/24 06:40 3 12/14/24 05:58 12/14/24 05:58 12/14/24 05:58 2 12/14/24 05:00 3 12/14/24 04:00 2 12/14/24 04:00 12/14/24 03:00 3 12/14/24 01:00 3 12/14/24 00:00 12/14/24 00:00 3 12/13/24 23:30 12/13/24 23:29 12/13/24 23:00 3 12/13/24 21:00 3 12/13/24 20:00 3 12/13/24 20:00 12/13/24 19:56 3 12/13/24 19:08 2 28 12/13/24 19:08 12/13/24 19:07 12/13/24 18:42 2 12/13/24 17:33 12/13/24 17:00 2 12/13/24 16:00 12/13/24 16:00 2 12/13/24 15:00 2 Intake and Output 12/13/24 12/14/24 12/14/24 23:59 07:59 15:59 Intake Total 100 / 580 480 / 580 Output Total / 2049 325 / 1925 1600 / 1925 Balance -800 / -1250 -225 / -1345 -1120 / -1345 Intake: Intake, Oral Amount 480 / 480 Intake, Total IV Amount 100 / 100 Cefepime HCl 2 gm In 0.9 % 100 / 100 Sodium Chloride 100 ml @ 200 mls/hr IV Q12H [facility] Rx#:[id number] Output: Output, Urine Amount / 2049 325 / 1925 1600 / 1925 Other: Number of Unmeasured Voids 0 0 Weight 54.431 kg Patient Weight 12/14/24 23:59 Weight 54.431 kg Laboratory Results - last 24 hr 12/14/24 05:49: WBC 16.9 H, RBC 3.70 L, Hgb 10.8 L D, Hct 34.5 L, MCV 93.2, MCH 29.2, MCHC 31.3 L, RDW 14.6, Plt Count 207 D, MPV 10.2, Neut % (Auto) 88.1 H, Lymph % (Auto) 5.3 L, [place] % (Auto) 4.6, Eos % (Auto) 0.5, Baso % (Auto) 0.3, Neut # (Auto) 14.9 H, Lymph # (Auto) 0.9, [place] # (Auto) 0.8, Eos # (Auto) 0.1, Baso # (Auto) 0.1, Sodium 130 L, Potassium 4.0 D, Chloride 88 L, Carbon Dioxide 38 H, Anion Gap 8.0, BUN 18 H, Creatinine 0.50 L, Estimated Creat Clear 46, Estimated GFR 122, Est GFR ( Amer) 148 D, Glucose 101 H, Calcium 9.2, Phosphorus 2.2 L, Magnesium 1.6 D, Total Bilirubin 0.4, AST 27 D, ALT 16, Alkaline Phosphatase 81, Total Protein 5.8 L, Albumin 3.1 L D, Globulin 2.7, Albumin/Globulin Ratio 1.1 I & O for Labs for Last 24 Hours: Intake & Output 12/11/24 12/12/24 12/13/24 12/14/24 23:59 23:59 23:59 23:59 Intake Total 2360 / 2360 1380 / 1480 700 / 800 580 / 580 Output Total 575 / 575 1150 / 1150 2049 / 2049 192 / 1924 Balance 1785 / 1785 230 / 330 -1350 / -1250 -1345 / -1345 Weight 56.331 kg 56.79 kg 54.431 kg 54.431 kg Microbiology Reports for the Last 24 Hours: Microbiology 12/11/24 19:48 Sputum - Expectorated Sputum Gram Stain - Final 12/11/24 19:48 Sputum - Expectorated Sputum Sputum Culture - Final 12/11/24 15:53 Blood Blood Culture - Preliminary NO GROWTH AFTER 48 HOURS 12/11/24 15:47 Blood Blood Culture - Preliminary NO GROWTH AFTER 48 HOURS Constitutional: Present no acute distress, average body habitus, chronically ill appearing, disheveled and cooperative Head: Present atraumatic and normocephalic ENT: Present normal exam Respiratory: Present prolonged expiratory phase, rhonchi, wheezes, diminished air movement and normal respiratory effort; Absent crackles Cardiac: Present Tachycardia Comment:: Irregularly irregular GI: Present soft and normal bowel sounds; Absent distention or tenderness Extremities: Present normal inspection and full ROM Skin: Present intact; Absent erythema Neuro: Present Cranial Nerve 2-12 Intact, Grossly Intact, alert, awake, oriented x 3 and moves all extremities Assessment and Plan *Assessment and plan (1) Acute respiratory failure with hypoxia and hypercarbia: Status: Acute Category: Medical Code(s): J96.01 - Acute respiratory failure with hypoxia; J96.02 - Acute respiratory failure with hypercapnia (2) Pneumonia: Status: Acute Qualifiers: Laterality: left Lung location: lower lobe of lung Pneumonia type: due to Pseudomonas Qualified Code(s): J15.1 - Pneumonia due to Pseudomonas Category: Medical Code(s): J18.9 - Pneumonia, unspecified organism (3) Acute exacerbation of chronic obstructive pulmonary disease: Status: Acute Category: Medical Code(s): J44.1 - Chronic obstructive pulmonary disease with (acute) exacerbation (4) Atrial fibrillation: Status: Acute Category: Medical Code(s): I48.91 - Unspecified atrial fibrillation (5) Lung nodule: Status: Acute Category: Medical Code(s): R91.1 - Solitary pulmonary nodule (6) Peripheral vascular disease: Status: Acute Category: Medical Code(s): I73.9 - Peripheral vascular disease, unspecified (7) Hypertension: Status: Acute Category: Medical Code(s): I10 - Essential (primary) hypertension (8) Smoking greater than 30 pack years: Status: Chronic Category: Social Hx Code(s): F17.210 - Nicotine dependence, cigarettes, uncomplicated Plan 69-year-old female with COPD on chronic oxygen therapy, presented Meeting sepsis criteria with tachycardia, tachypnea, white count of 29,000 and worsening left lower lobe pneumonia. Discussed case with ER physician, request admission for further management of acute on chronic hypoxemic respiratory failure. Placed on BiPAP in the ED. I agreed to admit for further care. Showing some improvement, weaned to nasal cannula oxygen by the time she arrived to the stepdown unit. Appears to be a recurrent pneumonia, consistent with healthcare acquired. Previous cultures positive for Pseudomonas. Continues to require inpatient management. Awaiting placement for rehab. Therapy working with patient daily. Problems addressed as follows: Left lower lobe pneumonia due to Pseudomonas Acute on chronic respiratory failure with hypoxia and hypercarbia Pulmonary emboli, previously diagnosed - Previous sputum cultures positive for Pseudomonas. Discontinue azithromycin and cefepime, transition to Levaquin 750 mg renally dosed every 48 hours - Pulmonology evaluated today, recommend 7 days of Levaquin. - Initiate Advair 500 inhaler along with Spiriva HandiHaler, continue DuoNebs every 6 hours as needed - White count improved to 16.9. Hemoglobin 10.8.; Repeat CBC, CMP, magnesium ordered for the morning. - Consider lung biopsy as an outpatient due to her pulmonary nodules. - Due to previous PE, continue Eliquis 5 mg twice daily - Goal sats greater 90%, currently on 2-3 L. This is her baseline. A-fib with RVR: - Continue digoxin 125 mcg daily, continue metoprolol succinate 100 mg nightly. Continue Eliquis 5 mg twice daily - Rate control stable, discontinue telemetry #Peripheral vascular disease Sees podiatry. Had recent fracture of her left foot. Podiatry is following. Small wound to dorsum of left foot. Nickel sized with granulation tissue. Does not appear infected. Depression: Continue Cymbalta 30 mg daily, alprazolam 0.5 mg twice daily as needed given concern for polypharmacy Hypertension: Normotensive at this time. Hold amlodipine and losartan. Resume Lasix 40 mg daily starting tomorrow due to elevated BNP of approximately 1500 Neuropathy: Continue gabapentin at reduced dose of 400 mg 3 times a day due to polypharmacy and confusion on presentation Full code Regular diet PT and OT evaluating Eliquis 5 mg twice daily
[2024-12-14] MEDS: ACETAMINOPHEN 325MG TAB 650 MG PO (16:26)
[2024-12-14] MEDS: MONTELUKAST SODIUM 10MG TAB 10 MG PO (18:09)
--- NOTE | 2024-12-14 18:15 | PC.NURSE ---
CONFUSED AT TIMES THIS SHIFT. INCREASED O2 SUPPORT TO 4LNC FOR O2 SATS DROPPING INTO 80'S WHILE AT REST. PT AGREEABLE TO D/C TO SNF.
[2024-12-14] MEDS: FLUTICASONE/SALMETEROL 500/50MCG DISKUS 1 PUFF IH (18:16)
--- NOTE | 2024-12-14 19:29 | PC.NURSE ---
TECH NOTE; NOTIFIED NURSE OF TEMPERATURE FOR 1600 VITAL SIGNS Torie SOLIS, SRNA
--- NOTE | 2024-12-14 20:38 | ECG_ITS ---
APPROVED REPORT Exam: Resting ECG HR:90 bpm ECG Measurements Heart Rate 90 AXES NC 132 P 64 QRSd 95 QRS -62 QT 337 T 55 QTc 384 Conclusion SINUS RHYTHM WITH FREQUENT SUPRAVENTRICULAR PREMATURE COMPLEXES LEFT ANTERIOR FASCICULAR BLOCK [QRS AXIS <= -45, QR IN I, RS IN II] MODERATE T-WAVE ABNORMALITY, CONSIDER ANTEROLATERAL ISCHEMIA [-0.1+ mV T-WAVE IN V3-V6] ABNORMAL ECG UNCONFIRMED REPORT Electronically signed by : Fito Connelly MD 12/15/2024 09:20:15
[2024-12-14 20:47] LABS: Lactate Venous 1.4 mmol/L (0.4-2.0); VBG Base Excess 20.8 mmol/L (-2.4-2.3); VBG Oxygen Saturation 56.4 % (50-70); VBG PH 7.43 mmol/L (7.31-7.41); VBG PO2 30.6 mmol/L (28-40); VBG Total CO2 47.2 mmol/L (23-27)
[2024-12-14 20:52] LABS: VBG PCO2 69.1 mmol/L (35-51)
--- NOTE | 2024-12-14 21:10 | PC.NURSE ---
Went into room and noticed pt was more confused and harder to arouse. Blood sugar checked and which revealed 171. Provider notified and was ordered VBG and 12 lead. VGB and 12 lead results given to provider. pt placed on pulse ox and tele. Provider states to let her rest for a little bit and see if she becomes for alert. Ordered to hold any sedative meds at this time.
[2024-12-15] VITALS (9 sets, daily range): BP systolic 125–150; BP diastolic 57–81; PULSE 64–100; RESP 16–21; TEMP 36.4–36.8; O2SAT 93–96
[2024-12-15 00:34] LABS: POC Glucose,Bedside 172 (70-110)
--- NOTE | 2024-12-15 05:56 | PC.NURSE ---
weight not obtained bed will not weigh and gets short of breath when stands
[2024-12-15] MEDS: TIOTROPIUM 18MCG/PUFF INHALER 1 CAP IH (06:07)
[2024-12-15] MEDS: FLUTICASONE/SALMETEROL 500/50MCG DISKUS 1 PUFF IH ×2 (06:07→18:02)
--- NOTE | 2024-12-15 06:08 | PC.NURSE ---
Pt has remained fatigued throughout the shift. She has been more alert and easier to arouse then earlier in the shift. She has still required 4L nasal cannula. Purewick has remained in place. No complaints at this time, call light within reach.
[2024-12-15 06:37] LABS: Basophils # 0.1 K/mm3 (0-0.2); Basophils % 0.4 % (0.1-2.0); Eosinophils # 0.1 Kmm3 (0.0-0.4); Eosinophils % 0.9 % (0.1-12.0); Hematocrit 34.9 % (37.0-47.0); Hemoglobin 11.4 g/dL (12.2-16.2); Immature Granulocytes # 0.06 10^3uL; Immature Granulocytes % 0.5 %; Lymphocytes # 1.1 K/mm3 (0.7-4.5); Mean Corpuscular HGB Conc 32.7 g/dL (31.8-35.4); Mean Corpuscular Hemoglobin 29.7 pg (27.0-31.2); Mean Corpuscular Volume 90.9 fl (81-99); Mean Platelet Volume 9.5 fl (7.4-10.4); Monocytes # 0.8 K/mm3 (0.1-1.0); Monocytes % 6.7 % (1.7-9.3); Neutrophils # 9.7 K/mm3 (1.8-7.8); Neutrophils % 82.5 % (37.0-80.0); Nucleated Red Blood Cells # 0 10^3/uL; Nucleated Red Blood Cells % 0 %; Platelet Count 229 K/mm3 (142-424); Red Blood Count 3.84 M/mm3 (4.20-5.40); Red Cell Distribution Width 14.3 % (11.5-17.5); Red Cell Distribution Width-SD 47.9 fL; White Blood Count 11.8 K/mm3 (4.8-10.8)
[2024-12-15 07:16] LABS: Chloride 82 mmol/L (98-107); Potassium 3.5 mmoL/L (3.5-5.1); Sodium 127 mmol/L (136-145)
[2024-12-15 07:18] LABS: Blood Urea Nitrogen 20 mg/dl (7-17); Creatinine Clearance Estimated 46 mL/min (50-200); Estimated Glomerular Filt Rate 99 ml/min (>60); GFR (African American) 120 ML/MIN (>60); Magnesium 1.7 mg/dl (1.6-2.3)
[2024-12-15 07:19] LABS: Alanine Aminotransferase 17 U/L (12-78); Albumin/Globulin Ratio 1.1 (1.1-1.8); Alkaline Phosphatase 87 U/L (38-126); Aspartate Amino Transferase 23 U/L (14-36); Bilirubin,Total 0.4 mg/dl (0.2-1.3); Calcium 9.3 mg/dl (8.4-10.2); Globulin 2.8 g/dL (1.3-3.2); Glucose 101 mg/dl (74-100); Total Protein,Serum 5.8 g/dl (6.3-8.2)
[2024-12-15 07:36] LABS: Anion Gap 5.5 mEq/L (5-15); Carbon Dioxide 43 mmol/L (22.0-30.0)
[2024-12-15] MEDS: APIXABAN 5MG TABLET 5 MG PO ×2 (09:00→20:41)
[2024-12-15] MEDS: DULOXETINE 30MG CAPSULE.DR 30 MG PO (09:02)
[2024-12-15] MEDS: DIGOXIN 0.125MG TABLET 125 MCG PO (09:02)
[2024-12-15] MEDS: FUROSEMIDE 40 MG TABLET PO (09:03)
[2024-12-15] MEDS: GABAPENTIN 400MG CAPSULE 400 MG PO ×3 (09:03→20:41)
[2024-12-15] MEDS: ACETAMINOPHEN 325MG TAB 650 MG PO (09:03)
[2024-12-15] MEDS: ALPRAZolam 0.5MG TABLET 0.5 MG PO ×2 (09:06→20:42)
--- NOTE | 2024-12-15 09:23 | EXP.PULM.PN ---
Subjective *Date: 12/15/24 *Time: 10:45 Interval history: No acute respiratory vents overnight. Patient denies any new respiratory complaint. Admits she feels weak. Pulmonology Exam Inpatient Vital signs and Labs for Last 24 Hours: Temp Pulse Resp BP Pulse Ox O2 Del Method O2 Flow Rate 98.1 F 89 16 150/69 H 93 L Nasal Cannula 4 12/15/24 08:00 12/15/24 09:02 12/15/24 08:00 12/15/24 08:00 12/15/24 08:00 12/15/24 08:00 12/15/24 08:00 FiO2 28 12/13/24 19:08 Laboratory Results - last 24 hr 12/14/24 20:28: POC Glucose 172 H 12/14/24 20:33: VBG pH 7.43 H, VBG pCO2 69.1 H, VBG pO2 30.6, VBG HCO3 45.0 H, VBG Total CO2 47.2 H, VBG O2 Saturation 56.4, VBG Base Excess 20.8 H, VBG Lactic Acid 1.4 12/15/24 05:45: WBC 11.8 H D, RBC 3.84 L, Hgb 11.4 L, Hct 34.9 L, MCV 90.9, MCH 29.7, MCHC 32.7, RDW 14.3, Plt Count 229, MPV 9.5, Neut % (Auto) 82.5 H, Lymph % (Auto) 9.0 L, [place] % (Auto) 6.7, Eos % (Auto) 0.9, Baso % (Auto) 0.4, Neut # (Auto) 9.7 H, Lymph # (Auto) 1.1, [place] # (Auto) 0.8, Eos # (Auto) 0.1, Baso # (Auto) 0.1, Sodium 127 L, Potassium 3.5, Chloride 82 L, Carbon Dioxide 43 H*, Anion Gap 5.5, BUN 20 H, Creatinine 0.60, Estimated Creat Clear 46, Estimated GFR 99, Est GFR ( Amer) 120, Glucose 101 H, Calcium 9.3, Magnesium 1.7, Total Bilirubin 0.4, AST 23, ALT 17, Alkaline Phosphatase 87, Total Protein 5.8 L, Albumin 3.0 L, Globulin 2.8, Albumin/Globulin Ratio 1.1 Temp Pulse Resp BP Pulse Ox O2 Del Method O2 Flow Rate 97.9 F 95 H 22 131/78 74 L Room Air 3 12/14/24 08:00 12/14/24 08:00 12/14/24 08:00 12/14/24 08:00 12/14/24 09:15 12/14/24 09:15 12/14/24 09:00 FiO2 28 12/13/24 19:08 Laboratory Results - last 24 hr 12/14/24 05:49: WBC 16.9 H, RBC 3.70 L, Hgb 10.8 L D, Hct 34.5 L, MCV 93.2, MCH 29.2, MCHC 31.3 L, RDW 14.6, Plt Count 207 D, MPV 10.2, Neut % (Auto) 88.1 H, Lymph % (Auto) 5.3 L, [place] % (Auto) 4.6, Eos % (Auto) 0.5, Baso % (Auto) 0.3, Neut # (Auto) 14.9 H, Lymph # (Auto) 0.9, [place] # (Auto) 0.8, Eos # (Auto) 0.1, Baso # (Auto) 0.1, Sodium 130 L, Potassium 4.0 D, Chloride 88 L, Carbon Dioxide 38 H, Anion Gap 8.0, BUN 18 H, Creatinine 0.50 L, Estimated Creat Clear 46, Estimated GFR 122, Est GFR ( Amer) 148 D, Glucose 101 H, Calcium 9.2, Phosphorus 2.2 L, Magnesium 1.6 D, Total Bilirubin 0.4, AST 27 D, ALT 16, Alkaline Phosphatase 81, Total Protein 5.8 L, Albumin 3.1 L D, Globulin 2.7, Albumin/Globulin Ratio 1.1 I & O for Labs for Last 24 Hours: Intake & Output 12/12/24 12/13/24 12/14/24 12/15/24 23:59 23:59 23:59 23:59 Intake Total 1380 / 1480 700 / 800 820 / 820 Output Total 1150 / 1150 2049 / 2049 1925 / 192 100 / 100 Balance 230 / 330 -1350 / -1250 -1105 / -1105 -100 / -100 Weight 125 lb 3.208 oz 120 lb 120 lb Intake & Output 12/11/24 12/12/24 12/13/24 12/14/24 23:59 23:59 23:59 23:59 Intake Total 2360 / 2360 1380 / 1480 700 / 800 580 / 580 Output Total 575 / 575 1150 / 1150 2049 325 / 325 Balance 1785 / 1785 230 / 330 -1350 / -1250 255 / 255 Weight 124 lb 3 oz 125 lb 3.208 oz 120 lb 120 lb Microbiology Reports for the Last 24 Hours: Microbiology 12/11/24 19:48 Sputum - Expectorated Sputum Gram Stain - Final 12/11/24 19:48 Sputum - Expectorated Sputum Sputum Culture - Final Microbiology 12/11/24 15:53 Blood Blood Culture - Preliminary NO GROWTH AFTER 48 HOURS 12/11/24 15:47 Blood Blood Culture - Preliminary NO GROWTH AFTER 48 HOURS 12/11/24 19:48 Sputum - Expectorated Sputum Gram Stain - Final 12/11/24 19:48 Sputum - Expectorated Sputum Sputum Culture - Preliminary Constitutional: Present moderate distress Head: Present normocephalic and atraumatic ENT: Present normal exam, normal oropharynx and mucous membranes moist Neck: Present normal inspection and full ROM Respiratory: Present respiratory distress, rhonchi, diminished air movement and able to speak in complete sentences; Absent wheezes or crackles Cardiac: Present S1/S2, Tachycardia and radial pulses present GI: Present soft and distention; Absent tenderness or guarding Rectal (female): Present deferred (female): Present deferred Skin: Present intact; Absent cyanosis or jaundice Neuro: Present alert, awake and oriented x 3 Extremities: Present normal inspection; Absent clubbing or cyanosis Psychiatric: Present normal affect and cooperative Assessment and Plan *Assessment and plan (1) Sepsis due to pneumonia: Status: Acute Category: Medical Code(s): J18.9 - Pneumonia, unspecified organism; A41.9 - Sepsis, unspecified organism (2) Acute and chronic respiratory failure with hypoxia: Status: Acute Category: Medical Code(s): J96.21 - Acute and chronic respiratory failure with hypoxia (3) Lung nodule: Status: Acute Category: Medical Code(s): R91.1 - Solitary pulmonary nodule Plan Ms. Balbuena is a 69-year-old female greater than 95-wenz-lwel smoking history severe COPD recently admitted to the hospital discharge, managed for COPD exacerbation and pulmonary embolism presented today with worsening respiratory distress and pulmonary was called for further evaluation management. Labs upon admission severe neutrophilic prominent leukocytosis with a white count of 29.8, improving. Blood gas upon admission did not show any evidence of hypercarbic respiratory failure, pH is 7.36 and pCO2 50.8. COVID-19 and flu PCR panel negative. CTA upon admission, multilobar consolidative changes predominantly left-sided, left upper lingula and lower lobes. Continue to show right upper lobe nodular opacity. The left-sided pneumonia is new from her most recent hospital admission CT from 11/30/2024. CTA on this admission did not show any obvious evidence of pulmonary embolism. Sputum cultures from most recent admission grew Pseudomonas. Currently receiving cefepime. On examination moderate respiratory distress. No significant wheezing. Blood cultures no growth 48 hours. Interval update: No acute respiratory vents overnight. Stable oxygen chemistry antibiotics with levofloxacin from [facility]. Tolerating well. Improving leukocytosis. Afebrile. Hemodynamically stable. Repeat blood cultures from this admission no growth 48 hours. Sputum cultures normal respiratory radha. Currently [facility]. Plan: Incentive spirometry and flutter valve Continue levofloxacin to complete a total of 7-day course. Advair 500 along with Spiriva HandiHaler. DuoNebs every 6 as needed No need for steroids at this point of time Continue oxygen supplementation to maintain O2 saturation goal of 90% and above. Currently on 4 L with saturations maintained at 90-93 # For the concerning worsening right upper lobe lung nodule I previously had extensively discussed with the patient and will likely pursue lung biopsy at this point of time given worsening size on density despite previously being PET negative. Will follow the patient in pulmonary clinic 2 to 3 weeks postdischarge
--- NOTE | 2024-12-15 09:24 | XR_ITS ---
FINAL REPORT CLINICAL HISTORY: PNM COMPARISON: 12/11/2024 FINDINGS: A portable view of the chest was obtained. Cardiac and mediastinal silhouettes are within normal limits. Since the prior exam, there has been interval worsening of the left lung opacity, and an enlarging pleural effusion. No pneumothorax is identified. IMPRESSION: Interval worsening of the left lung opacity and enlarging left pleural effusion when compared to the prior exam of 12/11/2024. Reviewed, Interpreted and Dictated by Elle Mackay MD Transcribed by Lissa Renee Authenticated and [facility]
[2024-12-15] MEDS: MAGNESIUM SULFATE IN WATER 2 GM/50 ML PIGGYBACK IV ×2 (11:36→12:22)
[2024-12-15] MEDS: POTASSIUM CHLORIDE 20MEQ TAB 40 MEQ PO ×2 (13:10→15:12)
[2024-12-15] MEDS: MONTELUKAST SODIUM 10MG TAB 10 MG PO (17:30)
--- NOTE | 2024-12-15 17:49 | PC.NURSE ---
more alert today. up to chair for meals. 4lnc for o2 support. attempted to wean o2 but was unsuccessful. flutter valve and IS at bedside and educated on use.
[2024-12-15] MEDS: METOPROLOL SUCCINATE XL 100MG TABLET 100 MG PO (20:41)
--- NOTE | 2024-12-15 22:00 | P.PN_ITS ---
Subjective *Date: 12/15/24 *Time: 22:00 Interval history: Patient doing well, resting comfortably in bed this morning. No acute concerns. Pending placement. Exam Data for Last 24 hours Vital signs and Labs for Last 24 Hours: Temp Pulse Resp BP Pulse Ox O2 Del Method O2 Flow Rate 97.6 F 64 21 138/67 95 Nasal Cannula 4 12/15/24 20:00 12/15/24 20:00 12/15/24 20:00 12/15/24 20:00 12/15/24 20:00 12/15/24 21:00 12/15/24 21:00 FiO2 28 12/13/24 19:08 Laboratory Results - last 24 hr 12/14/24 20:28: POC Glucose 172 H 12/15/24 05:45: WBC 11.8 H D, RBC 3.84 L, Hgb 11.4 L, Hct 34.9 L, MCV 90.9, MCH 29.7, MCHC 32.7, RDW 14.3, Plt Count 229, MPV 9.5, Neut % (Auto) 82.5 H, Lymph % (Auto) 9.0 L, [place] % (Auto) 6.7, Eos % (Auto) 0.9, Baso % (Auto) 0.4, Neut # (Auto) 9.7 H, Lymph # (Auto) 1.1, [place] # (Auto) 0.8, Eos # (Auto) 0.1, Baso # (Auto) 0.1, Sodium 127 L, Potassium 3.5, Chloride 82 L, Carbon Dioxide 43 H*, Anion Gap 5.5, BUN 20 H, Creatinine 0.60, Estimated Creat Clear 46, Estimated GFR 99, Est GFR ( Amer) 120, Glucose 101 H, Calcium 9.3, Magnesium 1.7, Total Bilirubin 0.4, AST 23, ALT 17, Alkaline Phosphatase 87, Total Protein 5.8 L, Albumin 3.0 L, Globulin 2.8, Albumin/Globulin Ratio 1.1 I & O for Last 24 hours: Intake & Output 12/12/24 12/13/24 12/14/24 12/15/24 23:59 23:59 23:59 23:59 Intake Total 1380 / 1480 700 / 800 820 / 820 840 / 840 Output Total 1150 / 1150 2049 1925 / 1924 500 / 500 Balance 230 / 330 -1350 / -1250 -1105 / -1105 340 / 340 Weight 56.79 kg 54.431 kg 54.431 kg Microbiology Reports for the Last 24 Hours: Microbiology 12/11/24 15:47 Blood Blood Culture - Preliminary NO GROWTH AFTER 4 DAYS 12/11/24 15:53 Blood Blood Culture - Preliminary NO GROWTH AFTER 4 DAYS Constitutional Constitutional: no acute distress and chronically ill appearing *Routine HEENT Exam Head: Present normocephalic Eye: Present EOMI and PERRL ENT: Present mucous membranes moist *Routine Neck Exam Neck: Present supple; Absent lymphadenopathy *Routine Respiratory Exam Respiratory: Present CTA bilaterally *Routine Cardiovascular Exam Cardiovascular: Present RRR *Routine Abdominal Exam Abdominal: Present soft and normoactive bowel sounds; Absent tenderness *Routine Extremities Exam Extremities: Absent cyanosis, clubbing or edema *Routine Skin Exam Skin: Present warm; Absent rash *Routine Neurological Exam Neurological: Present alert and oriented X3 Assessment and Plan *Assessment and plan (1) Acute respiratory failure with hypoxia and hypercarbia: Status: Acute Category: Medical Code(s): J96.01 - Acute respiratory failure with hypoxia; J96.02 - Acute respiratory failure with hypercapnia (2) Pneumonia: Status: Acute Qualifiers: Pneumonia type: due to Pseudomonas Laterality: left Lung location: lower lobe of lung Qualified Code(s): J15.1 - Pneumonia due to Pseudomonas Category: Medical Code(s): J18.9 - Pneumonia, unspecified organism (3) Acute exacerbation of chronic obstructive pulmonary disease: Status: Acute Category: Medical Code(s): J44.1 - Chronic obstructive pulmonary disease with (acute) exacerbation (4) Atrial fibrillation: Status: Acute Category: Medical Code(s): I48.91 - Unspecified atrial fibrillation (5) Lung nodule: Status: Acute Category: Medical Code(s): R91.1 - Solitary pulmonary nodule (6) Peripheral vascular disease: Status: Acute Category: Medical Code(s): I73.9 - Peripheral vascular disease, unspecified (7) Hypertension: Status: Acute Category: Medical Code(s): I10 - Essential (primary) hypertension (8) Smoking greater than 30 pack years: Status: Chronic Category: Social Hx Code(s): F17.210 - Nicotine dependence, cigarettes, uncomplicated Plan 69-year-old female with COPD on chronic oxygen therapy, presented Meeting sepsis criteria with tachycardia, tachypnea, white count of 29,000 and worsening left lower lobe pneumonia. Discussed case with ER physician, request admission for further management of acute on chronic hypoxemic respiratory failure. Placed on BiPAP in the ED. I agreed to admit for further care. Showing some improvement, weaned to nasal cannula oxygen by the time she arrived to the stepdown unit. Appears to be a recurrent pneumonia, consistent with healthcare acquired. Previous cultures positive for Pseudomonas. Left lower lobe pneumonia due to Pseudomonas Acute on chronic respiratory failure with hypoxia and hypercarbia Pulmonary emboli, previously diagnosed - Previous sputum cultures positive for Pseudomonas. Discontinue azithromycin and cefepime, transition to Levaquin 750 mg renally dosed every 48 hours - Pulmonology following, recommend 7 days of Levaquin. - Initiate Advair 500 inhaler along with Spiriva HandiHaler, continue DuoNebs every 6 hours as needed - White count improved to 16.9. Hemoglobin 10.8.; Repeat CBC, CMP, magnesium ordered for the morning. - Consider lung biopsy as an outpatient due to her pulmonary nodules. - Due to previous PE, continue Eliquis 5 mg twice daily - Goal sats greater 90%, currently on 2-3 L. This is her baseline. A-fib with RVR: - Continue digoxin 125 mcg daily, continue metoprolol succinate 100 mg nightly. Continue Eliquis 5 mg twice daily - Rate control stable, discontinue telemetry #Peripheral vascular disease Sees podiatry. Had recent fracture of her left foot. Podiatry is following. Small wound to dorsum of left foot. Nickel sized with granulation tissue. Does not appear infected. Depression: Continue Cymbalta 30 mg daily, alprazolam 0.5 mg twice daily as needed given concern for polypharmacy Hypertension: Normotensive at this time. Hold amlodipine and losartan. Resume Lasix 40 mg daily starting tomorrow due to elevated BNP of approximately 1500 Neuropathy: Continue gabapentin at reduced dose of 400 mg 3 times a day due to polypharmacy and confusion on presentation Full code Regular diet PT and OT evaluating Eliquis 5 mg twice daily
[2024-12-16] VITALS (10 sets, daily range): BP systolic 120–155; BP diastolic 55–69; PULSE 61–110; RESP 12–20; TEMP 36.5–36.9; O2SAT 89–96; BMI 23.6
--- NOTE | 2024-12-16 04:11 | PC.NURSE ---
Pt is alert and oriented with intermittent confusion. She is still requiring 4L nasal cannula. She has gotten up to bedside commode with x1 assist. Purewick in place. No complaints at this time, evelyn light within reach.
[2024-12-16] MEDS: FLUTICASONE/SALMETEROL 500/50MCG DISKUS 1 PUFF IH ×2 (06:12→18:06)
[2024-12-16] MEDS: TIOTROPIUM 18MCG/PUFF INHALER 1 CAP IH (06:12)
[2024-12-16 06:33] LABS: Basophils % 0.4 % (0.1-2.0); Eosinophils # 0.1 Kmm3 (0.0-0.4); Eosinophils % 0.9 % (0.1-12.0); Hematocrit 32.6 % (37.0-47.0); Hemoglobin 10.3 g/dL (12.2-16.2); Immature Granulocytes # 0.07 10^3uL; Immature Granulocytes % 0.7 %; Lymphocytes # 1.1 K/mm3 (0.7-4.5); Lymphocytes % 9.9 % (10-50); Mean Corpuscular HGB Conc 31.6 g/dL (31.8-35.4); Mean Corpuscular Hemoglobin 29.3 pg (27.0-31.2); Mean Corpuscular Volume 92.9 fl (81-99); Mean Platelet Volume 9.3 fl (7.4-10.4); Monocytes # 0.9 K/mm3 (0.1-1.0); Monocytes % 8.4 % (1.7-9.3); Neutrophils # 8.4 K/mm3 (1.8-7.8); Neutrophils % 79.7 % (37.0-80.0); Nucleated Red Blood Cells # 0 10^3/uL; Nucleated Red Blood Cells % 0 %; Platelet Count 238 K/mm3 (142-424); Red Blood Count 3.51 M/mm3 (4.20-5.40); Red Cell Distribution Width 14.6 % (11.5-17.5); Red Cell Distribution Width-SD 49.6 fL; White Blood Count 10.6 K/mm3 (4.8-10.8)
[2024-12-16 06:51] LABS: Chloride 83 mmol/L (98-107)
[2024-12-16 06:52] LABS: Potassium 4.3 mmoL/L (3.5-5.1); Sodium 126 mmol/L (136-145)
[2024-12-16 06:54] LABS: Alanine Aminotransferase 19 U/L (12-78); Blood Urea Nitrogen 19 mg/dl (7-17); Creatinine Clearance Estimated 46 mL/min (50-200); Estimated Glomerular Filt Rate 122 ml/min (>60); GFR (African American) 148 ML/MIN (>60)
[2024-12-16 06:55] LABS: Albumin/Globulin Ratio 1.2 (1.1-1.8); Alkaline Phosphatase 73 U/L (38-126); Aspartate Amino Transferase 25 U/L (14-36); Calcium 9.2 mg/dl (8.4-10.2); Globulin 2.6 g/dL (1.3-3.2); Glucose 112 mg/dl (74-100); Total Protein,Serum 5.6 g/dl (6.3-8.2)
[2024-12-16 07:02] LABS: Anion Gap 9.3 mEq/L (5-15); Carbon Dioxide 38 mmol/L (22.0-30.0)
[2024-12-16 07:08] LABS: Bilirubin,Total 0.1 mg/dl (0.2-1.3)
[2024-12-16] MEDS: FUROSEMIDE 40 MG TABLET PO (08:38)
[2024-12-16] MEDS: DIGOXIN 0.125MG TABLET 125 MCG PO (08:39)
[2024-12-16] MEDS: DULOXETINE 30MG CAPSULE.DR 30 MG PO (08:39)
[2024-12-16] MEDS: GABAPENTIN 400MG CAPSULE 400 MG PO ×2 (08:39→21:21)
[2024-12-16] MEDS: APIXABAN 5MG TABLET 5 MG PO ×2 (08:39→21:20)
--- NOTE | 2024-12-16 09:11 | EXP.PULM.PN ---
Subjective *Date: 12/16/24 *Time: 11:13 Interval history: No acute respiratory events overnight. Denies any new respiratory complaints Pulmonology Exam Inpatient Vital signs and Labs for Last 24 Hours: Temp Pulse Resp BP Pulse Ox O2 Del Method O2 Flow Rate 98.2 F 86 17 120/55 L 92 L Nasal Cannula 4 12/16/24 08:00 12/16/24 08:39 12/16/24 08:00 12/16/24 08:00 12/16/24 08:00 12/16/24 08:54 12/16/24 08:54 FiO2 28 12/13/24 19:08 Laboratory Results - last 24 hr 12/16/24 05:50: WBC 10.6, RBC 3.51 L, Hgb 10.3 L, Hct 32.6 L, MCV 92.9, MCH 29.3, MCHC 31.6 L, RDW 14.6, Plt Count 238, MPV 9.3, Neut % (Auto) 79.7, Lymph % (Auto) 9.9 L, [place] % (Auto) 8.4, Eos % (Auto) 0.9, Baso % (Auto) 0.4, Neut # (Auto) 8.4 H, Lymph # (Auto) 1.1, [place] # (Auto) 0.9, Eos # (Auto) 0.1, Baso # (Auto) 0.0, Sodium 126 L, Potassium 4.3 D, Chloride 83 L, Carbon Dioxide 38 H, Anion Gap 9.3, BUN 19 H, Creatinine 0.50 L, Estimated Creat Clear 46, Estimated GFR 122, Est GFR ( Amer) 148 D, Glucose 112 H, Calcium 9.2, Total Bilirubin 0.1 L, AST 25, ALT 19, Alkaline Phosphatase 73, Total Protein 5.6 L, Albumin 3.0 L, Globulin 2.6, Albumin/Globulin Ratio 1.2 Temp Pulse Resp BP Pulse Ox O2 Del Method O2 Flow Rate 97.9 F 95 H 22 131/78 74 L Room Air 3 12/14/24 08:00 12/14/24 08:00 12/14/24 08:00 12/14/24 08:00 12/14/24 09:15 12/14/24 09:15 12/14/24 09:00 FiO2 28 12/13/24 19:08 Laboratory Results - last 24 hr 12/14/24 05:49: WBC 16.9 H, RBC 3.70 L, Hgb 10.8 L D, Hct 34.5 L, MCV 93.2, MCH 29.2, MCHC 31.3 L, RDW 14.6, Plt Count 207 D, MPV 10.2, Neut % (Auto) 88.1 H, Lymph % (Auto) 5.3 L, [place] % (Auto) 4.6, Eos % (Auto) 0.5, Baso % (Auto) 0.3, Neut # (Auto) 14.9 H, Lymph # (Auto) 0.9, [place] # (Auto) 0.8, Eos # (Auto) 0.1, Baso # (Auto) 0.1, Sodium 130 L, Potassium 4.0 D, Chloride 88 L, Carbon Dioxide 38 H, Anion Gap 8.0, BUN 18 H, Creatinine 0.50 L, Estimated Creat Clear 46, Estimated GFR 122, Est GFR ( Amer) 148 D, Glucose 101 H, Calcium 9.2, Phosphorus 2.2 L, Magnesium 1.6 D, Total Bilirubin 0.4, AST 27 D, ALT 16, Alkaline Phosphatase 81, Total Protein 5.8 L, Albumin 3.1 L D, Globulin 2.7, Albumin/Globulin Ratio 1.1 I & O for Labs for Last 24 Hours: Intake & Output 12/13/24 12/14/24 12/15/24 12/16/24 23:59 23:59 23:59 23:59 Intake Total 700 / 800 820 / 820 840 / 1090 370 / 370 Output Total 2049 1925 / 1925 800 / 800 500 / 500 Balance -1350 / -1250 -1105 / -1105 40 / 290 -130 / -130 Weight 120 lb 120 lb 119 lb 15.997 oz Intake & Output 12/11/24 12/12/24 12/13/24 12/14/24 23:59 23:59 23:59 23:59 Intake Total 2360 / 2360 1380 / 1480 700 / 800 580 / 580 Output Total 575 / 575 1150 / 1150 2049 325 / 325 Balance 1785 / 1785 230 / 330 -1350 / -1250 255 / 255 Weight 124 lb 3 oz 125 lb 3.208 oz 120 lb 120 lb Microbiology Reports for the Last 24 Hours: Microbiology 12/11/24 15:47 Blood Blood Culture - Preliminary NO GROWTH AFTER 4 DAYS 12/11/24 15:53 Blood Blood Culture - Preliminary NO GROWTH AFTER 4 DAYS Microbiology 12/11/24 15:53 Blood Blood Culture - Preliminary NO GROWTH AFTER 48 HOURS 12/11/24 15:47 Blood Blood Culture - Preliminary NO GROWTH AFTER 48 HOURS 12/11/24 19:48 Sputum - Expectorated Sputum Gram Stain - Final 12/11/24 19:48 Sputum - Expectorated Sputum Sputum Culture - Preliminary Constitutional: Present moderate distress Head: Present normocephalic and atraumatic ENT: Present normal exam, normal oropharynx and mucous membranes moist Neck: Present normal inspection and full ROM Respiratory: Present respiratory distress, rhonchi, diminished air movement and able to speak in complete sentences; Absent wheezes or crackles Cardiac: Present S1/S2, Tachycardia and radial pulses present GI: Present soft and distention; Absent tenderness or guarding Rectal (female): Present deferred (female): Present deferred Skin: Present intact; Absent cyanosis or jaundice Neuro: Present alert, awake and oriented x 3 Extremities: Present normal inspection; Absent clubbing or cyanosis Psychiatric: Present normal affect and cooperative Assessment and Plan *Assessment and plan (1) Sepsis due to pneumonia: Status: Acute Category: Medical Code(s): J18.9 - Pneumonia, unspecified organism; A41.9 - Sepsis, unspecified organism (2) Acute and chronic respiratory failure with hypoxia: Status: Acute Category: Medical Code(s): J96.21 - Acute and chronic respiratory failure with hypoxia (3) Lung nodule: Status: Acute Category: Medical Code(s): R91.1 - Solitary pulmonary nodule Plan Ms. Balbuena is a 69-year-old female greater than 07-kyzy-lfal smoking history severe COPD recently admitted to the hospital discharge, managed for COPD exacerbation and pulmonary embolism presented today with worsening respiratory distress and pulmonary was called for further evaluation management. Labs upon admission severe neutrophilic prominent leukocytosis with a white count of 29.8, improving. Blood gas upon admission did not show any evidence of hypercarbic respiratory failure, pH is 7.36 and pCO2 50.8. COVID-19 and flu PCR panel negative. CTA upon admission, multilobar consolidative changes predominantly left-sided, left upper lingula and lower lobes. Continue to show right upper lobe nodular opacity. The left-sided pneumonia is new from her most recent hospital admission CT from 11/30/2024. CTA on this admission did not show any obvious evidence of pulmonary embolism. Sputum cultures from most recent admission grew Pseudomonas. Currently receiving cefepime. On examination moderate respiratory distress. No significant wheezing. Blood cultures no growth 48 hours. Interval update: No acute respiratory vents overnight. On 4 L saturating 95% this morning, weaned to 3 L. No significant wheezing noted on auscultation. Plan: Incentive spirometry and flutter valve. Patient advised to be more compliant Continue levofloxacin to complete a total of 7-day course. Advair 500 along with Spiriva HandiHaler. DuoNebs every 6 as needed No need for steroids at this point of time Continue oxygen supplementation to maintain O2 saturation goal of 90% and above. Currently on 4 L with saturations maintained at 90-93 # For the concerning worsening right upper lobe lung nodule I previously had extensively discussed with the patient and will likely pursue lung biopsy at this point of time given worsening size on density despite previously being PET negative. Will follow the patient in pulmonary clinic 2 to 3 weeks postdischarge
--- NOTE | 2024-12-16 10:25 | XR_ITS ---
FINAL REPORT TECHNIQUE: Single view chest CLINICAL HISTORY: SOB COMPARISON: 12/15/2024 FINDINGS: A single view of the chest was obtained. Heart is stable. There has been interval worsening of left base opacity with new right base opacity. Medial left upper lobe airspace disease is stable. Findings are favored represent pneumonia. There are small pleural effusions. IMPRESSION: Worsening lung opacities, favor pneumonia. Reviewed, Interpreted and Dictated by Elle Mackay MD Transcribed by Elizabeth Cifuentes Authenticated and [facility]
[2024-12-16] MEDS: IPRATROPIUM/ALBUTEROL 3 ML NEB IH ×2 (10:31→18:06)
[2024-12-16 12:01] LABS: Troponin I < 0.01 ng/ml (0.00-0.034)
--- NOTE | 2024-12-16 12:09 | ECG_ITS ---
APPROVED REPORT Exam: Resting ECG HR:94 bpm ECG Measurements Heart Rate 94 AXES MO 139 P 68 QRSd 88 QRS -57 QT 249 T 37 QTc 301 Conclusion SINUS RHYTHM WITH OCCASIONAL SUPRAVENTRICULAR PREMATURE COMPLEXES PATTERN CONSISTENT WITH PULMONARY DISEASE LEFT ANTERIOR FASCICULAR BLOCK [QRS AXIS <= -45, QR IN I, RS IN II] ABNORMAL ECG UNCONFIRMED REPORT Electronically signed by : Fito Connelly MD 12/17/2024 08:35:47
[2024-12-16] MEDS: LEVOFLOXACIN/D5W 750 MG/150 ML 750 MG/150 ML PIGGYBACK 100 MG IV (13:06)
--- NOTE | 2024-12-16 14:00 | [facility].PTWOUND ---
Rehab Inpt Wound Evaluation Rehab IP Wound Evaluation Start: 12/11/24 18:13 Freq: ONCE Status: Active Protocol: Document 12/16/24 13:52 HIRO (Rec: 12/16/24 14:00 HIRO [id number]) Rehab PT Wound Assessment Subjective Subjective Per H&P: This is a 69-year-old female with past medical history of COPD, chronic respiratory failure on 2 L nasal cannula at night and as needed who presents emergency department for worsening shortness of breath. Was just admitted 2 weeks ago for similar presentation. Diagnosed with pneumonia and PE. Completed antibiotics as an outpatient. On workup in the ER, white count elevated 29, CT of chest shows worsening pneumonia on left side. Increased oxygen requirement to 4 L. Placed on BiPAP. Medicine consulted for admission and further management. Received cefepime in the ED. Blood cultures obtained. Pt presented upon admission with anterior L foot wound . Wound Left Anterior Foot Wound Type unknown etiology Is This a Chronic Yes Wound Wound Length (cm) 1.2 Wound Width (cm) 0.7 Wound Depth (cm) 0.2 Wound Bed Appearance Yellow Wound Margins Well Defined Description Surrounding Tissue [place] Appearance Drainage Amount None Dressing Status Open to Air Wound Topical Saline Irrigant Solution/Irrigant Primary Dressing Gauze Pad Comment betadine, 2x2 gauze Wound Secondary Gauze Roll/Wrap,Adhering Gauze Roll Dressing Type Wound Debridement Gauze,Mechanical Method Wound Debridement None Amount of Tissue Removed Dressing Change Tolerated Well Patient Tolerance Plan/Recommendation Comment Wound presented dry this date without drainage and no dressing in place prior to treatment. Appears to be somewhat scabbed over at this time. Re-dressed with betadine and 2x2 gauze. Nsg to continue treatment as necessary. No current need for sharp, excisional debridement. Eval Complexity Eval Charge Codes 28823 - High Complexity PHYSICIAN CERTIFICATION: I certify the specified therapy services for Iqra Balbuena are required, authorized, and reviewed every 30 days.
[2024-12-16 15:43] LABS: Procalcitonin 1.73 ng/mL (0.0-2.0)
--- NOTE | 2024-12-16 15:58 | PC.NURSE ---
ALERT WITH EPISODES OF CONFUSION. ATTEMPTED TO WEAN O2 SUPPORT BUT PT WAS UNABLE TO TOLERATE R/T DROP IN O2 SATS. SAT UP TO CHAIR FOR A FEW MINUTES BUT DEMANDED TO GO BACK TO BED. NO COMPLAINTS THIS SHIFT.
[2024-12-16] MEDS: MONTELUKAST SODIUM 10MG TAB 10 MG PO (17:58)
--- NOTE | 2024-12-16 19:49 | ECG_ITS ---
APPROVED REPORT Exam: Resting ECG HR:96 bpm ECG Measurements Heart Rate 96 AXES UT 129 P 57 QRSd 93 QRS -49 QT 324 T 31 QTc 378 Conclusion SINUS RHYTHM WITH OCCASIONAL ECTOPIC PREMATURE COMPLEXES LEFT ANTERIOR FASCICULAR BLOCK [QRS AXIS <= -45, QR IN I, RS IN II] ABNORMAL ECG UNCONFIRMED REPORT Electronically signed by : Fito Connelly MD 12/17/2024 08:35:28
--- NOTE | 2024-12-16 20:53 | P.PN_ITS ---
Subjective *Date: 12/16/24 *Time: 20:53 Interval history: Increased work of breathing with wheezing this morning, but otherwise no complaints. Scheduled Duonebs every 6 hours. Pending placement. Exam Data for Last 24 hours Vital signs and Labs for Last 24 Hours: Temp Pulse Resp BP Pulse Ox O2 Del Method O2 Flow Rate 97.7 F 102 H 12 149/67 H 91 L Nasal Cannula 3 12/16/24 20:00 12/16/24 20:00 12/16/24 20:00 12/16/24 20:00 12/16/24 20:00 12/16/24 20:00 12/16/24 20:00 FiO2 28 12/13/24 19:08 Laboratory Results - last 24 hr 12/16/24 05:50: WBC 10.6, RBC 3.51 L, Hgb 10.3 L, Hct 32.6 L, MCV 92.9, MCH 29.3, MCHC 31.6 L, RDW 14.6, Plt Count 238, MPV 9.3, Neut % (Auto) 79.7, Lymph % (Auto) 9.9 L, [place] % (Auto) 8.4, Eos % (Auto) 0.9, Baso % (Auto) 0.4, Neut # (A uto) 8.4 H, Lymph # (Auto) 1.1, [place] # (Auto) 0.9, Eos # (Auto) 0.1, Baso # (Auto) 0.0, Sodium 126 L, Potassium 4.3 D, Chloride 83 L, Carbon Dioxide 38 H, Anion Gap 9.3, BUN 19 H, Creatinine 0.50 L, Estimated Creat Clear 46, Estimated GFR 122, Est GFR ( Amer) 148 D, Glucose 112 H, Calcium 9.2, Total Bilirubin 0.1 L, AST 25, ALT 19, Alkaline Phosphatase 73, Total Protein 5.6 L, Albumin 3.0 L, Globulin 2.6, Albumin/Globulin Ratio 1.2 12/16/24 11:12: Troponin I < 0.01, C-Reactive Protein 177.0 H, Procalcitonin 1.73 I & O for Last 24 hours: Intake & Output 12/13/24 12/14/24 12/15/24 12/16/24 23:59 23:59 23:59 23:59 Intake Total 700 / 800 820 / 820 840 / 1090 880 / 880 Output Total 2049 1925 / 1925 800 / 800 775 / 775 Balance -1350 / -1250 -1105 / -1105 40 / 290 105 / 105 Weight 54.431 kg 54.431 kg 54.431 kg Microbiology Reports for the Last 24 Hours: Microbiology 12/11/24 15:47 Blood Blood Culture - Final NO GROWTH AFTER 5 DAYS 12/11/24 15:53 Blood Blood Culture - Final NO GROWTH AFTER 5 DAYS Assessment and Plan *Assessment and plan (1) Acute exacerbation of chronic obstructive pulmonary disease: Status: Acute Category: Medical Code(s): J44.1 - Chronic obstructive pulmonary disease with (acute) exacerbation (2) Sepsis due to pneumonia: Status: Acute Category: Medical Code(s): J18.9 - Pneumonia, unspecified organism; A41.9 - Sepsis, unspecified organism Plan Iqra Balbuena is a 69-year-old female with COPD on chronic oxygen therapy, presented Meeting sepsis criteria with tachycardia, tachypnea, white count of 29,000 and worsening left lower lobe pneumonia. Discussed case with ER physician, request admission for further management of acute on chronic hypoxemic respiratory failure. Placed on BiPAP in the ED. I agreed to admit for further care. Left lower lobe pneumonia due to Pseudomonas Acute on chronic respiratory failure with hypoxia and hypercarbia Pulmonary emboli, previously diagnosed - Previous sputum cultures positive for Pseudomonas. Discontinue azithromycin and cefepime, transition to Levaquin 750 mg renally dosed every 48 hours - Pulmonology following, recommend 7 days of Levaquin. - Continue Advair 500 inhaler along with Spiriva HandiHaler, continue DuoNebs every 6 hours scheduled as patient had increased wheezing this morning. - White count improved to 10.6. - Consider lung biopsy as an outpatient due to her pulmonary nodules. - Due to previous PE, continue Eliquis 5 mg twice daily - Goal sats greater 90%, currently on 2-3 L. This is her baseline. - Pending SNF placement. A-fib with RVR: - Continue digoxin 125 mcg daily, continue metoprolol succinate 100 mg nightly. Continue Eliquis 5 mg twice daily - Rate control stable, discontinue telemetry #Peripheral vascular disease Sees podiatry. Had recent fracture of her left foot. Podiatry is following. Small wound to dorsum of left foot. Nickel sized with granulation tissue. Does not appear infected. Depression: Continue Cymbalta 30 mg daily, alprazolam 0.5 mg twice daily as needed given concern for polypharmacy Hypertension: Normotensive at this time. Hold amlodipine and losartan. Resume Lasix 40 mg daily starting tomorrow due to elevated BNP of approximately 1500 Neuropathy: Continue gabapentin at reduced dose of 400 mg 3 times a day due to polypharmacy and confusion on presentation Full code Regular diet PT and OT evaluating Eliquis 5 mg twice daily
[2024-12-16] MEDS: METOPROLOL SUCCINATE XL 100MG TABLET 100 MG PO (21:20)
[2024-12-16] MEDS: ACETAMINOPHEN 500MG TAB 1000 MG PO (21:20)
[2024-12-16 21:47] LABS: Troponin I < 0.01 ng/ml (0.00-0.034)
[2024-12-17] VITALS (10 sets, daily range): BP systolic 117–149; BP diastolic 64–76; PULSE 70–100; RESP 14–23; TEMP 36.6–37.1; O2SAT 87–98; BMI 24.7
--- NOTE | 2024-12-17 03:52 | PC.NURSE ---
Pt AOx4. 20g R wrist. Pt on 3L nasal cannula. Wheezing scattered throughout lungs upon auscultation. Dressing on L foot c/d/i. Currently resting in bed with eyes closed. Bed is low, locked, and call light is in reach.
[2024-12-17] MEDS: FLUTICASONE/SALMETEROL 500/50MCG DISKUS 1 PUFF IH ×2 (06:08→18:23)
[2024-12-17] MEDS: TIOTROPIUM 18MCG/PUFF INHALER 1 CAP IH (06:11)
[2024-12-17 06:19] LABS: Basophils % 0.5 % (0.1-2.0); Eosinophils # 0.1 Kmm3 (0.0-0.4); Eosinophils % 1.7 % (0.1-12.0); Hematocrit 32.9 % (37.0-47.0); Hemoglobin 10.2 g/dL (12.2-16.2); Immature Granulocytes # 0.16 10^3uL; Immature Granulocytes % 2.1 %; Lymphocytes # 1.4 K/mm3 (0.7-4.5); Lymphocytes % 18.1 % (10-50); Mean Corpuscular Hemoglobin 28.7 pg (27.0-31.2); Mean Corpuscular Volume 92.4 fl (81-99); Mean Platelet Volume 9.4 fl (7.4-10.4); Monocytes # 0.9 K/mm3 (0.1-1.0); Monocytes % 11.9 % (1.7-9.3); Neutrophils % 65.7 % (37.0-80.0); Nucleated Red Blood Cells # 0 10^3/uL; Nucleated Red Blood Cells % 0 %; Platelet Count 247 K/mm3 (142-424); Red Blood Count 3.56 M/mm3 (4.20-5.40); Red Cell Distribution Width 14.4 % (11.5-17.5); Red Cell Distribution Width-SD 48.5 fL; White Blood Count 7.6 K/mm3 (4.8-10.8)
[2024-12-17 06:37] LABS: Albumin Level 2.8 g/dl (3.5-5.0); Chloride 83 mmol/L (98-107); Sodium 128 mmol/L (136-145)
[2024-12-17 06:40] LABS: Alanine Aminotransferase 14 U/L (12-78); Alkaline Phosphatase 61 U/L (38-126); Aspartate Amino Transferase 20 U/L (14-36); Bilirubin,Total 0.3 mg/dl (0.2-1.3); Blood Urea Nitrogen 17 mg/dl (7-17); Calcium 9.2 mg/dl (8.4-10.2); Creatinine Clearance Estimated 48 mL/min (50-200); Estimated Glomerular Filt Rate 83 ml/min (>60); GFR (African American) 100 ML/MIN (>60); Globulin 2.7 g/dL (1.3-3.2); Glucose 98 mg/dl (74-100); Total Protein,Serum 5.5 g/dl (6.3-8.2)
[2024-12-17 07:06] LABS: Carbon Dioxide 42 mmol/L (22.0-30.0)
--- NOTE | 2024-12-17 07:47 | P.PN_ITS ---
Subjective *Date: 12/17/24 *Time: 07:47 Medical Exam Vital signs and Labs for Last 24 Hours: Vital Signs Temp Pulse Pulse Resp BP Pulse Ox O2 Del Method 12/17/24 07:38 Nasal Cannula 12/17/24 07:38 Nasal Cannula 12/17/24 06:29 Nasal Cannula 12/17/24 06:11 90 L Nasal Cannula 12/17/24 05:00 Nasal Cannula 12/17/24 04:00 70 12/17/24 04:00 98.0 F 100 H 15 140/68 95 Nasal Cannula 12/17/24 03:00 Nasal Cannula 12/17/24 01:00 Nasal Cannula 12/17/24 00:00 98.8 F 98 H 14 149/64 H 98 12/17/24 00:00 70 12/16/24 23:00 Nasal Cannula 12/16/24 21:00 Nasal Cannula 12/16/24 20:00 Nasal Cannula 12/16/24 20:00 90 12/16/24 20:00 97.7 F 102 H 12 149/67 H 91 L Nasal Cannula 12/16/24 18:10 Nasal Cannula 12/16/24 18:09 104 H 12/16/24 18:09 107 H 12/16/24 18:09 90 L Nasal Cannula 12/16/24 16:13 Nasal Cannula 12/16/24 16:00 110 H 12/16/24 16:00 97.9 F 109 H 17 132/57 L 89 L Nasal Cannula 12/16/24 15:00 Nasal Cannula 12/16/24 13:00 Nasal Cannula 12/16/24 12:00 100 H 12/16/24 12:00 98.4 F 61 16 155/69 H 93 L Nasal Cannula 12/16/24 11:00 Nasal Cannula 12/16/24 10:30 94 H 12/16/24 10:30 91 H 12/16/24 08:54 Nasal Cannula 12/16/24 08:39 86 12/16/24 08:00 80 12/16/24 08:00 Nasal Cannula 12/16/24 08:00 98.2 F 86 17 120/55 L 92 L Nasal Cannula O2 Flow Rate 12/17/24 07:38 4 12/17/24 07:38 4 12/17/24 06:29 2 12/17/24 06:11 2 12/17/24 05:00 2 12/17/24 04:00 12/17/24 04:00 2 12/17/24 03:00 2 12/17/24 01:00 2 12/17/24 00:00 12/17/24 00:00 12/16/24 23:00 3 12/16/24 21:00 3 12/16/24 20:00 3 12/16/24 20:00 12/16/24 20:00 3 12/16/24 18:10 4 12/16/24 18:09 12/16/24 18:09 12/16/24 18:09 3 12/16/24 16:13 4 12/16/24 16:00 12/16/24 16:00 12/16/24 15:00 4 12/16/24 13:00 4 12/16/24 12:00 12/16/24 12:00 12/16/24 11:00 4 12/16/24 10:30 12/16/24 10:30 12/16/24 08:54 4 12/16/24 08:39 12/16/24 08:00 12/16/24 08:00 4 12/16/24 08:00 4 Intake and Output 12/16/24 12/16/24 12/17/24 15:59 23:59 07:59 Intake Total 360 / 880 270 / 880 Output Total 0 / 775 275 / 775 300 / 300 Balance 360 / 105 -5 / 105 -300 / -300 Intake: Intake, Oral Amount 360 / 880 270 / 880 Output: Output, Urine Amount 0 / 775 275 / 775 300 / 300 Other: Number of Unmeasured Voids 1 0 0 Number of Bowel Movements 1 1 Weight 57.294 kg Patient Weight 12/17/24 23:59 Weight 57.294 kg Laboratory Results - last 24 hr 12/16/24 11:12: Troponin I < 0.01, C-Reactive Protein 177.0 H, Procalcitonin 1.73 12/16/24 21:11: Troponin I < 0.01 12/17/24 05:43: WBC 7.6 D, RBC 3.56 L, Hgb 10.2 L, Hct 32.9 L, MCV 92.4, MCH 28.7, MCHC 31.0 L, RDW 14.4, Plt Count 247, MPV 9.4, Neut % (Auto) 65.7, Lymph % (Auto) 18.1, [place] % (Auto) 11.9 H, Eos % (Auto) 1.7, Baso % (Auto) 0.5, Neut # (Auto) 5.0, Lymph # (Auto) 1.4, [place] # (Auto) 0.9, Eos # (Auto) 0.1, Baso # (Auto) 0.0, Sodium 128 L, Potassium 4.0, Chloride 83 L, Carbon Dioxide 42 H*, Anion Gap 7.0, BUN 17, Creatinine 0.70 D, Estimated Creat Clear 48, Estimated GFR 83, Est GFR ( Amer) 100 D, Glucose 98, Calcium 9.2, Total Bilirubin 0.3, AST 20, ALT 14 D, Alkaline Phosphatase 61, Total Protein 5.5 L, Albumin 2.8 L, Globulin 2.7, Albumin/Globulin Ratio 1.0 L I & O for Labs for Last 24 Hours: Intake & Output 12/14/24 12/15/24 12/16/24 12/17/24 23:59 23:59 23:59 23:59 Intake Total 820 / 820 840 / 1090 880 / 880 Output Total 1925 / 1925 800 / 800 775 / 775 300 / 300 Balance -1105 / -1105 40 / 290 105 / 105 -300 / -300 Weight 54.431 kg 54.431 kg 57.294 kg Microbiology Reports for the Last 24 Hours: Microbiology 12/11/24 15:47 Blood Blood Culture - Final NO GROWTH AFTER 5 DAYS 12/11/24 15:53 Blood Blood Culture - Final NO GROWTH AFTER 5 DAYS The patient's infection will respond to the chosen ABx?: Yes (WHITE COUNT 7.6, AFEBRILE OVER 24 HR, SPUTUM GROWING NORMAL NARESH.) Is the patient receiving the right drug, dose, and route?: Yes Could a more targeted ABx be ordered?: No How long ABx needed (days)?: 7 (PREVIOUS SPUTUM CX GREW PSEUDOMONAS)
[2024-12-17] MEDS: DIGOXIN 0.125MG TABLET 125 MCG PO (08:25)
[2024-12-17] MEDS: FUROSEMIDE 40 MG TABLET PO (08:25)
[2024-12-17] MEDS: GABAPENTIN 400MG CAPSULE 400 MG PO ×3 (08:25→20:31)
[2024-12-17] MEDS: APIXABAN 5MG TABLET 5 MG PO ×2 (08:25→20:30)
[2024-12-17] MEDS: DULOXETINE 30MG CAPSULE.DR 30 MG PO (08:26)
--- NOTE | 2024-12-17 10:56 | P.PN_ITS ---
Subjective *Date: 12/17/24 *Time: 13:43 Interval history: No acute respiratory events overnight. Patient denies any new respiratory complaints. Pulmonology Exam Inpatient Vital signs and Labs for Last 24 Hours: Temp Pulse Resp BP Pulse Ox O2 Del Method O2 Flow Rate 98.4 F 79 23 135/67 90 L Nasal Cannula 2 12/17/24 08:00 12/17/24 08:25 12/17/24 08:00 12/17/24 08:00 12/17/24 08:00 12/17/24 08:00 12/17/24 08:00 FiO2 28 12/13/24 19:08 Laboratory Results - last 24 hr 12/16/24 11:12: Troponin I < 0.01, C-Reactive Protein 177.0 H, Procalcitonin 1.73 12/16/24 21:11: Troponin I < 0.01 12/17/24 05:43: WBC 7.6 D, RBC 3.56 L, Hgb 10.2 L, Hct 32.9 L, MCV 92.4, MCH 28.7, MCHC 31.0 L, RDW 14.4, Plt Count 247, MPV 9.4, Neut % (Auto) 65.7, Lymph % (Auto) 18.1, [place] % (Auto) 11.9 H, Eos % (Auto) 1.7, Baso % (Auto) 0.5, Neut # (Auto) 5.0, Lymph # (Auto) 1.4, [place] # (Auto) 0.9, Eos # (Auto) 0.1, Baso # (Auto) 0.0, Sodium 128 L, Potassium 4.0, Chloride 83 L, Carbon Dioxide 42 H*, Anion Gap 7.0, BUN 17, Creatinine 0.70 D, Estimated Creat Clear 48, Estimated GFR 83, Est GFR ( Amer) 100 D, Glucose 98, Calcium 9.2, Total Bilirubin 0.3, AST 20, ALT 14 D, Alkaline Phosphatase 61, Total Protein 5.5 L, Albumin 2.8 L, Globulin 2.7, Albumin/Globulin Ratio 1.0 L Temp Pulse Resp BP Pulse Ox O2 Del Method O2 Flow Rate 97.9 F 95 H 22 131/78 74 L Room Air 3 12/14/24 08:00 12/14/24 08:00 12/14/24 08:00 12/14/24 08:00 12/14/24 09:15 12/14/24 09:15 12/14/24 09:00 FiO2 28 12/13/24 19:08 Laboratory Results - last 24 hr 12/14/24 05:49: WBC 16.9 H, RBC 3.70 L, Hgb 10.8 L D, Hct 34.5 L, MCV 93.2, MCH 29.2, MCHC 31.3 L, RDW 14.6, Plt Count 207 D, MPV 10.2, Neut % (Auto) 88.1 H, Lymph % (Auto) 5.3 L, [place] % (Auto) 4.6, Eos % (Auto) 0.5, Baso % (Auto) 0.3, Neut # (Auto) 14.9 H, Lymph # (Auto) 0.9, [place] # (Auto) 0.8, Eos # (Auto) 0.1, Baso # (Auto) 0.1, Sodium 130 L, Potassium 4.0 D, Chloride 88 L, Carbon Dioxide 38 H, Anion Gap 8.0, BUN 18 H, Creatinine 0.50 L, Estimated Creat Clear 46, Estimated GFR 122, Est GFR ( Amer) 148 D, Glucose 101 H, Calcium 9.2, Phosphorus 2.2 L, Magnesium 1.6 D, Total Bilirubin 0.4, AST 27 D, ALT 16, Alkaline Phosphatase 81, Total Protein 5.8 L, Albumin 3.1 L D, Globulin 2.7, Albumin/Globulin Ratio 1.1 I & O for Labs for Last 24 Hours: Intake & Output 12/14/24 12/15/24 12/16/24 12/17/24 23:59 23:59 23:59 23:59 Intake Total 820 / 820 840 / 1090 880 / 880 Output Total 1925 / 1925 800 / 800 775 / 775 300 / 300 Balance -1105 / -1105 40 / 290 105 / 105 -300 / -300 Weight 120 lb 119 lb 15.997 oz 126 lb 5 oz Intake & Output 12/11/24 12/12/24 12/13/24 12/14/24 23:59 23:59 23:59 23:59 Intake Total 2360 / 2360 1380 / 1480 700 / 800 580 / 580 Output Total 575 / 575 1150 / 1150 2049 / 2049 325 / 325 Balance 1785 / 1785 230 / 330 -1350 / -1250 255 / 255 Weight 124 lb 3 oz 125 lb 3.208 oz 120 lb 120 lb Microbiology Reports for the Last 24 Hours: Microbiology 12/11/24 15:47 Blood Blood Culture - Final NO GROWTH AFTER 5 DAYS 12/11/24 15:53 Blood Blood Culture - Final NO GROWTH AFTER 5 DAYS Microbiology 12/11/24 15:53 Blood Blood Culture - Preliminary NO GROWTH AFTER 48 HOURS 12/11/24 15:47 Blood Blood Culture - Preliminary NO GROWTH AFTER 48 HOURS 12/11/24 19:48 Sputum - Expectorated Sputum Gram Stain - Final 12/11/24 19:48 Sputum - Expectorated Sputum Sputum Culture - Preliminary Constitutional: Present moderate distress Head: Present normocephalic and atraumatic ENT: Present normal exam, normal oropharynx and mucous membranes moist Neck: Present normal inspection and full ROM Respiratory: Present respiratory distress, rhonchi, diminished air movement and able to speak in complete sentences; Absent wheezes or crackles Cardiac: Present S1/S2, Tachycardia and radial pulses present GI: Present soft and distention; Absent tenderness or guarding Rectal (female): Present deferred (female): Present deferred Skin: Present intact; Absent cyanosis or jaundice Neuro: Present alert, awake and oriented x 3 Extremities: Present normal inspection; Absent clubbing or cyanosis Psychiatric: Present normal affect and cooperative Assessment and Plan *Assessment and plan (1) Sepsis due to pneumonia: Status: Acute Category: Medical Code(s): J18.9 - Pneumonia, unspecified organism; A41.9 - Sepsis, unspecified organism (2) Acute and chronic respiratory failure with hypoxia: Status: Acute Category: Medical Code(s): J96.21 - Acute and chronic respiratory failure with hypoxia (3) Lung nodule: Status: Acute Category: Medical Code(s): R91.1 - Solitary pulmonary nodule Plan Ms. Balbuena is a 69-year-old female greater than [id number] smoking history severe COPD recently admitted to the hospital discharge, managed for COPD exacerbation and pulmonary embolism presented today with worsening respiratory distress and pulmonary was called for further evaluation management. Labs upon admission severe neutrophilic prominent leukocytosis with a white count of 29.8, improving. Blood gas upon admission did not show any evidence of hypercarbic respiratory failure, pH is 7.36 and pCO2 50.8. COVID-19 and flu PCR panel negative. CTA upon admission, multilobar consolidative changes predominantly left-sided, left upper lingula and lower lobes. Continue to show right upper lobe nodular opacity. The left-sided pneumonia is new from her most recent hospital admission CT from 11/30/2024. CTA on this admission did not show any obvious evidence of pulmonary embolism. Sputum cultures from most recent admission grew Pseudomonas. Currently receiving cefepime. On examination moderate respiratory distress. No significant wheezing. Blood cultures no growth 48 hours. Interval update: No acute respiratory vents overnight. Chest x-ray concerning for worsening respiratory infiltrates. Stable oxygen requirements. Afebrile. Hemodynamically stable. No evidence of worsening leukocytosis. Pro-[place] high at 1.73. CRP 177.0. CT chest worsening left lower lobe consolidative changes. Will proceed with bronchoscopy airway examination transbronchial biopsy. Plan: N.p.o. midnight. Schedule bronchoscopy transbronchial Incentive spirometry and flutter valve. Patient advised to be more compliant Continue levofloxacin to complete a total of 7-day course. Advair 500 along with Spiriva HandiHaler. DuoNebs every 6 as needed No need for steroids at this point of time Continue oxygen supplementation to maintain O2 saturation goal of 90% and above. Currently on 4 L with saturations maintained at 90-93 # For the concerning worsening right upper lobe lung nodule I previously had extensively discussed with the patient and will likely pursue lung biopsy at this point of time given worsening size on density despite previously being PET negative. Will follow the patient in pulmonary clinic 2 to 3 weeks postdischarge
--- NOTE | 2024-12-17 11:00 | XR_ITS ---
FINAL REPORT CLINICAL HISTORY: PNM COMPARISON: 12/16/2024 FINDINGS: A portable view of the chest was obtained. The heart is stable in size.. No significant interval change of the left lung opacity or left pleural effusion. Right basilar airspace disease is also stable. There is no pneumothorax. IMPRESSION: No significant interval change. Reviewed, Interpreted and Dictated by Elle Mackay MD Transcribed by Josee Smith Authenticated and [facility]
--- NOTE | 2024-12-17 12:22 | CT_ITS ---
FINAL REPORT TECHNIQUE: Thin section axial images were obtained from the lung apices through the upper abdomen without contrast. This study was performed with techniques to keep radiation doses as low as reasonably achievable (ALARA). Individualized dose reduction techniques using automated exposure control or adjustment of mA and/or kV according to the patient's size were employed. CLINICAL HISTORY: PNM COMPARISON: 12/11/2024 FINDINGS: No axillary adenopathy is identified. Left prevascular adenopathy has increased in size. Lymph node on image 79 measures 20 mm, previously measured 12 mm. AP window lymph nodes are stable to slightly increased in size. There is likely left hilar lymphadenopathy although difficult to measure due to lack of contrast. There are new small, left greater than right pleural effusions. There has been interval worsening in the somewhat masslike airspace disease in the right upper lobe with new irregular nodular opacities. There has been interval worsening in left lower lobe consolidation. There is new right lower lobe atelectasis or pneumonia. Nodular opacities in the inferior right upper lobe are unchanged. Limited images of the upper abdomen show bilateral renal lesions, similar to prior. Bilateral perinephric stranding is also similar to prior. Moderate to large hiatal hernia is identified. There is no acute osseous abnormality. There is a lower thoracic compression fracture has been treated with kyphoplasty. IMPRESSION: Worsening left lung pneumonia. New bilateral effusions. Stable nodular opacities in the inferior right upper lobe. Reviewed, Interpreted and Dictated by Elle Mackay MD Transcribed by Em Rodríguez Authenticated and . [facility]
--- NOTE | 2024-12-17 14:52 | PC.NURSE ---
pt is resting in bed. alert and oriented x4. eating an drinking fair. o2 saturation maintaining 90-95% on 3 l nc. lung sounds diminished with scattered wheezes. abdomen soft/non tender with active bowel sounds. will continue to monitor.
[2024-12-17] MEDS: MONTELUKAST SODIUM 10MG TAB 10 MG PO (17:06)
[2024-12-17] MEDS: ALPRAZolam 0.5MG TABLET 0.5 MG PO (18:29)
--- NOTE | 2024-12-17 18:48 | EXP.PN ---
Subjective *Date: 12/17/24 *Time: 18:48 Interval history: Patient states she feels better than yesterday, however CT chest today reveals worsening left lower lobe opacities suspected for worsening pneumonia versus mucous plugging. Pulmonology planning for EBUS tomorrow. N.p.o. midnight. Hold anticoagulation the morning. Exam Data for Last 24 hours Vital signs and Labs for Last 24 Hours: Temp Pulse Resp BP Pulse Ox O2 Del Method O2 Flow Rate 98.1 F 90 18 117/76 91 L Nasal Cannula 3 12/17/24 16:00 12/17/24 16:00 12/17/24 16:00 12/17/24 16:00 12/17/24 18:24 12/17/24 18:24 12/17/24 18:24 FiO2 28 12/13/24 19:08 Laboratory Results - last 24 hr 12/16/24 21:11: Troponin I < 0.01 12/17/24 05:43: WBC 7.6 D, RBC 3.56 L, Hgb 10.2 L, Hct 32.9 L, MCV 92.4, MCH 28.7, MCHC 31.0 L, RDW 14.4, Plt Count 247, MPV 9.4, Neut % (Auto) 65.7, Lymph % (Auto) 18.1, [place] % (Auto) 11.9 H, Eos % (Auto) 1.7, Baso % (Auto) 0.5, Neut # (Auto) 5.0, Lymph # (Auto) 1.4, [place] # (Auto) 0.9, Eos # (Auto) 0.1, Baso # (Auto) 0.0, Sodium 128 L, Potassium 4.0, Chloride 83 L, Carbon Dioxide 42 H*, Anion Gap 7.0, BUN 17, Creatinine 0.70 D, Estimated Creat Clear 48, Estimated GFR 83, Est GFR ( Amer) 100 D, Glucose 98, Calcium 9.2, Total Bilirubin 0.3, AST 20, ALT 14 D, Alkaline Phosphatase 61, Total Protein 5.5 L, Albumin 2.8 L, Globulin 2.7, Albumin/Globulin Ratio 1.0 L I & O for Last 24 hours: Intake & Output 12/14/24 12/15/24 12/16/24 12/17/24 23:59 23:59 23:59 23:59 Intake Total 820 / 820 840 / 1090 880 / 880 870 / 870 Output Total 1925 / 1925 800 / 800 775 / 775 550 / 550 Balance -1105 / -1105 40 / 290 105 / 105 320 / 320 Weight 54.431 kg 54.431 kg 57.294 kg Microbiology Reports for the Last 24 Hours: Microbiology 12/11/24 15:47 Blood Blood Culture - Final NO GROWTH AFTER 5 DAYS 12/11/24 15:53 Blood Blood Culture - Final NO GROWTH AFTER 5 DAYS Constitutional Constitutional: no acute distress and chronically ill appearing *Routine HEENT Exam Head: Present normocephalic Eye: Present EOMI and PERRL ENT: Present mucous membranes moist *Routine Neck Exam Neck: Present supple; Absent lymphadenopathy *Routine Respiratory Exam Respiratory: Present CTA bilaterally *Routine Cardiovascular Exam Cardiovascular: Present RRR *Routine Abdominal Exam Abdominal: Present soft and normoactive bowel sounds; Absent tenderness *Routine Extremities Exam Extremities: Absent cyanosis, clubbing or edema *Routine Skin Exam Skin: Present warm; Absent rash *Routine Neurological Exam Neurological: Present alert and oriented X3 Assessment and Plan *Assessment and plan (1) Acute exacerbation of chronic obstructive pulmonary disease: Status: Acute Category: Medical Code(s): J44.1 - Chronic obstructive pulmonary disease with (acute) exacerbation (2) Sepsis due to pneumonia: Status: Acute Category: Medical Code(s): J18.9 - Pneumonia, unspecified organism; A41.9 - Sepsis, unspecified organism Plan Iqra Balbuena is a 69-year-old female with COPD on chronic oxygen therapy, presented Meeting sepsis criteria with tachycardia, tachypnea, white count of 29,000 and worsening left lower lobe pneumonia. Discussed case with ER physician, request admission for further management of acute on chronic hypoxemic respiratory failure. Placed on BiPAP in the ED. I agreed to admit for further care. Left lower lobe pneumonia due to Pseudomonas Acute on chronic respiratory failure with hypoxia and hypercarbia Pulmonary emboli, previously diagnosed - Previous sputum cultures positive for Pseudomonas. - Pulmonology following, recommend 7 days of Levaquin. ?Patient had increased work of breathing yesterday, CXR was obtained which showed worsening left lower lobe opacities with interval pleural effusion. CT chest today corroborates this finding. ? Discussed findings with peace officer, plan for EBUS tomorrow. N.p.o. at midnight. Hold anticoagulation. - Continue Advair 500 inhaler along with Spiriva HandiHaler, continue DuoNebs every 6 hours scheduled as patient had increased wheezing this morning. - White count improved to 7.6. - Due to previous PE, continue Eliquis 5 mg twice daily -Currently requiring 4 L nasal cannula, wean as tolerated. -Discussed with case management, graciously accepted to [facility]. Will be discharged when medically stable. A-fib with RVR: - Continue digoxin 125 mcg daily, continue metoprolol succinate 100 mg nightly. Continue Eliquis 5 mg twice daily - Rate control stable, discontinue telemetry #Peripheral vascular disease Sees podiatry. Had recent fracture of her left foot. Podiatry is following. Small wound to dorsum of left foot. Nickel sized with granulation tissue. Does not appear infected. Depression: Continue Cymbalta 30 mg daily, alprazolam 0.5 mg twice daily as needed given concern for polypharmacy Hypertension: Normotensive at this time. Hold amlodipine and losartan. Resume Lasix 40 mg daily starting tomorrow due to elevated BNP of approximately 1500 Neuropathy: Continue gabapentin at reduced dose of 400 mg 3 times a day due to polypharmacy and confusion on presentation Full code Regular diet PT and OT evaluating Eliquis 5 mg twice daily
[2024-12-17] MEDS: METOPROLOL SUCCINATE XL 100MG TABLET 100 MG PO (20:31)
[2024-12-17] MEDS: ACETAMINOPHEN 325MG TAB 650 MG PO (20:32)
[2024-12-18] VITALS (17 sets, daily range): BP systolic 102–140; BP diastolic 49–80; PULSE 70–100; RESP 12–25; TEMP 36.2–36.9; O2SAT 91–95; BMI 25.2
--- NOTE | 2024-12-18 06:07 | PC.NURSE ---
Pt. is a/o x4. Pt. previously on 3 L NC , 02 saturation dropped to 84, placed on 4 L NC overnight. Lt foot dressing c/d/i. Pt. slept most of the night. Bed is low, locked and call light is in reach.
[2024-12-18] MEDS: FLUTICASONE/SALMETEROL 500/50MCG DISKUS 1 PUFF IH (06:13)
[2024-12-18] MEDS: TIOTROPIUM 18MCG/PUFF INHALER 1 CAP IH (06:13)
[2024-12-18] MEDS: IPRATROPIUM/ALBUTEROL 3 ML NEB IH (06:17)
[2024-12-18 06:28] LABS: Basophils % 0.5 % (0.1-2.0); Eosinophils # 0.1 Kmm3 (0.0-0.4); Eosinophils % 1.7 % (0.1-12.0); Hematocrit 30.6 % (37.0-47.0); Immature Granulocytes % 2.6 %; Lymphocytes # 1.4 K/mm3 (0.7-4.5); Lymphocytes % 18.8 % (10-50); Mean Corpuscular HGB Conc 32.7 g/dL (31.8-35.4); Mean Corpuscular Hemoglobin 29.8 pg (27.0-31.2); Mean Corpuscular Volume 91.1 fl (81-99); Mean Platelet Volume 9.3 fl (7.4-10.4); Monocytes # 0.8 K/mm3 (0.1-1.0); Neutrophils % 65.4 % (37.0-80.0); Nucleated Red Blood Cells # 0 10^3/uL; Nucleated Red Blood Cells % 0 %; Platelet Count 314 K/mm3 (142-424); Red Blood Count 3.36 M/mm3 (4.20-5.40); Red Cell Distribution Width 14.2 % (11.5-17.5); Red Cell Distribution Width-SD 47.4 fL; White Blood Count 7.6 K/mm3 (4.8-10.8)
[2024-12-18 06:41] LABS: Albumin Level 2.8 g/dl (3.5-5.0); Chloride 85 mmol/L (98-107); Potassium 3.9 mmoL/L (3.5-5.1); Sodium 125 mmol/L (136-145)
[2024-12-18 06:44] LABS: Alanine Aminotransferase 13 U/L (12-78); Alkaline Phosphatase 60 U/L (38-126); Aspartate Amino Transferase 20 U/L (14-36); Blood Urea Nitrogen 17 mg/dl (7-17); Calcium 9.3 mg/dl (8.4-10.2); Creatinine Clearance Estimated 49 mL/min (50-200); Estimated Glomerular Filt Rate 83 ml/min (>60); GFR (African American) 100 ML/MIN (>60); Globulin 2.8 g/dL (1.3-3.2); Glucose 106 mg/dl (74-100); Total Protein,Serum 5.6 g/dl (6.3-8.2)
[2024-12-18 06:53] LABS: Anion Gap 0.9 mEq/L (5-15); Bilirubin,Total 0.1 mg/dl (0.2-1.3); Carbon Dioxide 43 mmol/L (22.0-30.0)
--- NOTE | 2024-12-18 09:10 | EXP.PULM.PN ---
Subjective *Date: 12/18/24 *Time: 12:30 Interval history: No acute respiratory events overnight. Patient denies any new respiratory complaints. Pulmonology Exam Inpatient Vital signs and Labs for Last 24 Hours: Temp Pulse Resp BP Pulse Ox O2 Del Method O2 Flow Rate 97.4 F L 74 16 123/53 L 92 L Nasal Cannula 4 12/18/24 07:59 12/18/24 07:59 12/18/24 07:59 12/18/24 07:59 12/18/24 07:50 12/18/24 07:59 12/18/24 07:59 FiO2 28 12/13/24 19:08 Laboratory Results - last 24 hr 12/18/24 05:55: WBC 7.6, RBC 3.36 L, Hgb 10.0 L, Hct 30.6 L, MCV 91.1, MCH 29.8, MCHC 32.7, RDW 14.2, Plt Count 314 D, MPV 9.3, Neut % (Auto) 65.4, Lymph % (Auto) 18.8, [place] % (Auto) 11.0 H, Eos % (Auto) 1.7, Baso % (Auto) 0.5, Neut # (Auto) 5.0, Lymph # (Auto) 1.4, [place] # (Auto) 0.8, Eos # (Auto) 0.1, Baso # (Auto) 0.0, Sodium 125 L, Potassium 3.9, Chloride 85 L, Carbon Dioxide 43 H*, Anion Gap 0.9 L, BUN 17, Creatinine 0.70, Estimated Creat Clear 49, Estimated GFR 83, Est GFR ( Amer) 100, Glucose 106 H, Calcium 9.3, Total Bilirubin 0.1 L, AST 20, ALT 13, Alkaline Phosphatase 60, Total Protein 5.6 L, Albumin 2.8 L, Globulin 2.8, Albumin/Globulin Ratio 1.0 L Temp Pulse Resp BP Pulse Ox O2 Del Method O2 Flow Rate 97.9 F 95 H 22 131/78 74 L Room Air 3 12/14/24 08:00 12/14/24 08:00 12/14/24 08:00 12/14/24 08:00 12/14/24 09:15 12/14/24 09:15 12/14/24 09:00 FiO2 28 12/13/24 19:08 Laboratory Results - last 24 hr 12/14/24 05:49: WBC 16.9 H, RBC 3.70 L, Hgb 10.8 L D, Hct 34.5 L, MCV 93.2, MCH 29.2, MCHC 31.3 L, RDW 14.6, Plt Count 207 D, MPV 10.2, Neut % (Auto) 88.1 H, Lymph % (Auto) 5.3 L, [place] % (Auto) 4.6, Eos % (Auto) 0.5, Baso % (Auto) 0.3, Neut # (Auto) 14.9 H, Lymph # (Auto) 0.9, [place] # (Auto) 0.8, Eos # (Auto) 0.1, Baso # (Auto) 0.1, Sodium 130 L, Potassium 4.0 D, Chloride 88 L, Carbon Dioxide 38 H, Anion Gap 8.0, BUN 18 H, Creatinine 0.50 L, Estimated Creat Clear 46, Estimated GFR 122, Est GFR ( Amer) 148 D, Glucose 101 H, Calcium 9.2, Phosphorus 2.2 L, Magnesium 1.6 D, Total Bilirubin 0.4, AST 27 D, ALT 16, Alkaline Phosphatase 81, Total Protein 5.8 L, Albumin 3.1 L D, Globulin 2.7, Albumin/Globulin Ratio 1.1 I & O for Labs for Last 24 Hours: Intake & Output 12/15/24 12/16/24 12/17/24 12/18/24 23:59 23:59 23:59 23:59 Intake Total 840 / 1090 880 / 880 870 / 1110 240 / 240 Output Total 800 / 800 775 / 775 850 / 850 200 / 200 Balance 40 / 290 105 / 105 20 / 260 40 / 40 Weight 119 lb 15.997 oz 126 lb 5 oz 128 lb 4.8 oz Intake & Output 12/11/24 12/12/24 12/13/24 12/14/24 23:59 23:59 23:59 23:59 Intake Total 2360 / 2360 1380 / 1480 700 / 800 580 / 580 Output Total 575 / 575 1150 / 1150 2049 / 2049 325 / 325 Balance 1785 / 1785 230 / 330 -1350 / -1250 255 / 255 Weight 124 lb 3 oz 125 lb 3.208 oz 120 lb 120 lb Microbiology Reports for the Last 24 Hours: Microbiology 12/11/24 15:53 Blood Blood Culture - Preliminary NO GROWTH AFTER 48 HOURS 12/11/24 15:47 Blood Blood Culture - Preliminary NO GROWTH AFTER 48 HOURS 12/11/24 19:48 Sputum - Expectorated Sputum Gram Stain - Final 12/11/24 19:48 Sputum - Expectorated Sputum Sputum Culture - Preliminary Constitutional: Present moderate distress Head: Present normocephalic and atraumatic ENT: Present normal exam, normal oropharynx and mucous membranes moist Neck: Present normal inspection and full ROM Respiratory: Present respiratory distress, rhonchi, diminished air movement and able to speak in complete sentences; Absent wheezes or crackles Cardiac: Present S1/S2, Tachycardia and radial pulses present GI: Present soft and distention; Absent tenderness or guarding Rectal (female): Present deferred (female): Present deferred Skin: Present intact; Absent cyanosis or jaundice Neuro: Present alert, awake and oriented x 3 Extremities: Present normal inspection; Absent clubbing or cyanosis Psychiatric: Present normal affect and cooperative Assessment and Plan *Assessment and plan (1) Sepsis due to pneumonia: Status: Acute Category: Medical Code(s): J18.9 - Pneumonia, unspecified organism; A41.9 - Sepsis, unspecified organism (2) Acute and chronic respiratory failure with hypoxia: Status: Acute Category: Medical Code(s): J96.21 - Acute and chronic respiratory failure with hypoxia (3) Lung nodule: Status: Acute Category: Medical Code(s): R91.1 - Solitary pulmonary nodule Plan Ms. Balbuena is a 69-year-old female greater than [id number] smoking history severe COPD recently admitted to the hospital discharge, managed for COPD exacerbation and pulmonary embolism presented today with worsening respiratory distress and pulmonary was called for further evaluation management. Labs upon admission severe neutrophilic prominent leukocytosis with a white count of 29.8, improving. Blood gas upon admission did not show any evidence of hypercarbic respiratory failure, pH is 7.36 and pCO2 50.8. COVID-19 and flu PCR panel negative. CTA upon admission, multilobar consolidative changes predominantly left-sided, left upper lingula and lower lobes. Continue to show right upper lobe nodular opacity. The left-sided pneumonia is new from her most recent hospital admission CT from 11/30/2024. CTA on this admission did not show any obvious evidence of pulmonary embolism. Sputum cultures from most recent admission grew Pseudomonas. Currently receiving cefepime. On examination moderate respiratory distress. No significant wheezing. Blood cultures no growth 48 hours. Interval update: No acute respiratory vents overnight. Chest x-ray concerning for worsening respiratory infiltrates. Stable oxygen requirements. Afebrile. Hemodynamically stable. No evidence of worsening leukocytosis. Pro-Karson high at 1.73. CRP 177.0. CT chest worsening left lower lobe consolidative changes. Will proceed bronchoscopy airway examination bronchoalveolar lavage. On anticoagulation for her recent pulmonary embolism Plan: Proceed with bronchoscopy airway airway examination and BAL no biopsies. Incentive spirometry and flutter valve. Patient advised to be more compliant Continue levofloxacin to complete a total of 7-day course. Advair 500 along with Spiriva HandiHaler. DuoNebs every 6 as needed No need for steroids at this point of time Continue oxygen supplementation to maintain O2 saturation goal of 90% and above. Currently on 4 L with saturations maintained at 90-93 # For the concerning worsening right upper lobe lung nodule I previously had extensively discussed with the patient and will likely pursue lung biopsy at this point of time given worsening size on density despite previously being PET negative. Will follow the patient in pulmonary clinic 2 to 3 weeks postdischarge
[2024-12-18] MEDS: DIGOXIN 0.125MG TABLET 125 MCG PO (09:27)
[2024-12-18] MEDS: GABAPENTIN 400MG CAPSULE 400 MG PO (09:27)
[2024-12-18] MEDS: DULOXETINE 30MG CAPSULE.DR 30 MG PO (09:27)
[2024-12-18] MEDS: FUROSEMIDE 40 MG TABLET PO (09:27)
--- NOTE | 2024-12-18 11:31 | P.PNANES_ITS ---
[facility] Disclaimer: The information contained in this section may have been updated after the patient was seen, as this information can be updated by other users. Medical History Pneumonia Fecal occult blood test positive Sepsis without septic shock Lymphedema Physical deconditioning General weakness Lung mass Hypomagnesemia Acute hypokalemia Chronic hyponatremia Generalized weakness COPD mixed type Lung nodule Hypokalemia Elevated troponin COPD (chronic obstructive pulmonary disease) Nocturnal hypoxemia Pulmonary emphysema Incidental pulmonary nodule, greater than or equal to 8mm Smoking greater than 30 pack years Dyspnea on exertion Tobacco abuse disorder Tobacco abuse counseling COPD (chronic obstructive pulmonary disease) Cervical cancer Surgical History History of dilation and curettage History of back surgery Family History Diabetes Social History (Updated 12/11/24 @ 18:08 by Jessika Dawson RN) Smoking Status: Current every day smoker tobacco type: cigarettes packs per day: 2 second hand exposure: Yes alcohol intake: current alcohol intake frequency: 0-2 drinks per day substance use type: denies use current occupational status: unemployed Travel in the last 8 weeks?: None household members: spouse housing: house current occupational exposures/hazards: No [facility] Anesthesia Checklist Patient Identification Patient Identification: Arm Band Structural Data Admitted From: Inpatient Planned Operative Procedure/s: Bronchoscopy with Biopsy and EBUS Consent for Planned Operative Procedure(s) Verified: Yes Verified Documents: Surgical Consent and History and Physical NPO Status Verified Time NPO: 00:00 Additional verifications Anesthesia Reactions: No Hx Blood Transfusions: No Blood Transfusion Reaction: No Airway Assessment Mallampati Score:: Class II C-Spine Mobility Assessed: Yes TMJ Mobility Assessed: Yes Dentition: Poor Dentition Neurological Assessment Level of Consciousness: Awake, Alert and Appropriate Anesthesia Plan Anesthesia Risk discussed: Yes Anesthesia Plan: Verified ASA Class: IV Anesthesia Type: General
[2024-12-18 12:41] LABS: Procalcitonin 0.717 ng/mL (0.0-2.0)
--- NOTE | 2024-12-18 13:02 | XR_ITS ---
FINAL REPORT CLINICAL HISTORY: post-bronch COMPARISON: 12/17/2024 FINDINGS: A portable view of the chest was obtained. The heart is stable in size. The mediastinum is unremarkable. There is no change in the patchy left lung opacity or left pleural effusion. Right basilar opacity has slightly improved as compared to prior. There is no pneumothorax after bronchoscopy. IMPRESSION: No pneumothorax after bronchoscopy. Right basilar opacity slightly improved. Reviewed, Interpreted and Dictated by Elle Mackay MD Transcribed by Em Rodríguez Authenticated and [facility]
--- NOTE | 2024-12-18 13:10 | P.PNANES_ITS ---
[facility] Anesthesia Record Part I Anesthesia Record I Intake, IV Amount: 400 Hydration: Adequate Estimated blood loss (mL): 0 Urine output (mL): 0 Blood Products used (#): none Blood Pressure: 131/60 SaO2: 91 Pulse Rate: 93 Airway Patency: Patent Respiratory Rate: 25 Temperature: 97.1 F Patient is:: Drowsy and Stable Stable to PACU at:: 12:58
[2024-12-18] MEDS: levoFLOXacin 750 MG TABLET PO (13:47)
--- NOTE | 2024-12-18 14:11 | EXP.DC.SUM ---
General Admission date:: 12/11/24 Hospital Course Hospital Course Hospital Course: Iqra Balbuena is a 69-year-old female with COPD on chronic oxygen therapy, presented Meeting sepsis criteria with tachycardia, tachypnea, white count of 29,000 and worsening left lower lobe pneumonia. Discussed case with ER physician, request admission for further management of acute on chronic hypoxemic respiratory failure. Placed on BiPAP in the ED. I agreed to admit for further care. #Left lower lobe pneumonia due to Pseudomonas #Acute COPD exacerbation #Pulmonary emboli, previously diagnosed #Worsening pulmonary nodules - Previous sputum cultures positive for Pseudomonas. Pulmonology following, recommended total of 10 days of levofloxacin. Discharged with 2 more days. ? Underwent bronchoscopy due to increased work of breathing, found to have significant mucous plugging and a left lower lobe which were dissolved. Pulmonology recommends flutter valve. - Continue Advair 500 inhaler along with Spiriva HandiHaler, continue DuoNebs every 6 hours as needed. - Due to previous PE, continue Eliquis 5 mg twice daily. ? Will follow-up with pulmonology within 2 weeks to further evaluate and manage worsening pulmonary nodules. #A-fib with RVR: - Continue digoxin 125 mcg daily, continue metoprolol succinate 100 mg nightly. Continue Eliquis 5 mg twice daily #Peripheral vascular disease ? Sees podiatry. Had recent fracture of her left foot. Podiatry is following. Small wound to dorsum of left foot. Nickel sized with granulation tissue. Does not appear infected. Depression: Continue Cymbalta 30 mg daily, alprazolam 0.5 mg twice daily as needed given concern for polypharmacy Hypertension: Normotensive at this time. Hold amlodipine and losartan. Continue Lasix 40 mg daily. Neuropathy: Continue gabapentin at reduced dose of 400 mg 3 times a day due to polypharmacy and confusion on presentation Total time spent on discharge: 35 minutes on chart review, counseling, documentation, and direct care with patient. Exam Data for Last 24 hours Vital signs and Labs for Last 24 Hours: Temp Pulse Resp BP Pulse Ox O2 Del Method O2 Flow Rate 97.6 F 99 H 16 140/73 91 L Room Air 5 12/18/24 13:40 12/18/24 13:40 12/18/24 13:40 12/18/24 13:40 12/18/24 13:40 12/18/24 13:40 12/18/24 13:28 FiO2 28 12/13/24 19:08 Laboratory Results - last 24 hr 12/18/24 05:55: WBC 7.6, RBC 3.36 L, Hgb 10.0 L, Hct 30.6 L, MCV 91.1, MCH 29.8, MCHC 32.7, RDW 14.2, Plt Count 314 D, MPV 9.3, Neut % (Auto) 65.4, Lymph % (Auto) 18.8, [place] % (Auto) 11.0 H, Eos % (Auto) 1.7, Baso % (Auto) 0.5, Neut # (Auto) 5.0, Lymph # (Auto) 1.4, [place] # (Auto) 0.8, Eos # (Auto) 0.1, Baso # (Auto) 0.0, Sodium 125 L, Potassium 3.9, Chloride 85 L, Carbon Dioxide 43 H*, Anion Gap 0.9 L, BUN 17, Creatinine 0.70, Estimated Creat Clear 49, Estimated GFR 83, Est GFR ( Amer) 100, Glucose 106 H, Calcium 9.3, Total Bilirubin 0.1 L, AST 20, ALT 13, Alkaline Phosphatase 60, Total Protein 5.6 L, Albumin 2.8 L, Globulin 2.8, Albumin/Globulin Ratio 1.0 L, Procalcitonin 0.717 I & O for Last 24 hours: Intake & Output 12/15/24 12/16/24 12/17/24 12/18/24 23:59 23:59 23:59 23:59 Intake Total 840 / 1090 880 / 880 870 / 1110 640 / 640 Output Total 800 / 800 775 / 775 850 / 850 200 / 200 Balance 40 / 290 105 / 105 20 / 260 440 / 440 Weight 54.431 kg 57.294 kg 58.196 kg Constitutional Constitutional: no acute distress and chronically ill appearing *Routine HEENT Exam Head: Present normocephalic Eye: Present EOMI and PERRL ENT: Present mucous membranes moist *Routine Neck Exam Neck: Present supple; Absent lymphadenopathy *Routine Respiratory Exam Respiratory: Present CTA bilaterally *Routine Cardiovascular Exam Cardiovascular: Present RRR *Routine Abdominal Exam Abdominal: Present soft and normoactive bowel sounds; Absent tenderness *Routine Extremities Exam Extremities: Absent cyanosis, clubbing or edema *Routine Skin Exam Skin: Present warm; Absent rash *Routine Neurological Exam Neurological: Present alert and oriented X3 Results Data Completed and Pending Labs on day of discharge: Labs from last 24 hours 12/18/24 05:55 WBC 7.6 RBC 3.36 L Hgb 10.0 L Hct 30.6 L MCV 91.1 MCH 29.8 MCHC 32.7 RDW 14.2 Plt Count 314 D MPV 9.3 Neut % (Auto) 65.4 Lymph % (Auto) 18.8 [place] % (Auto) 11.0 H Eos % (Auto) 1.7 Baso % (Auto) 0.5 Neut # (Auto) 5.0 Lymph # (Auto) 1.4 [place] # (Auto) 0.8 Eos # (Auto) 0.1 Baso # (Auto) 0.0 Sodium 125 L Potassium 3.9 Chloride 85 L Carbon Dioxide 43 H* Anion Gap 0.9 L BUN 17 Creatinine 0.70 Estimated Creat Clear 49 Estimated GFR 83 Est GFR ( Amer) 100 Glucose 106 H Calcium 9.3 Total Bilirubin 0.1 L AST 20 ALT 13 Alkaline Phosphatase 60 Total Protein 5.6 L Albumin 2.8 L Globulin 2.8 Albumin/Globulin Ratio 1.0 L Procalcitonin 0.717 DS: Diagnosis Discharge Diagnosis (1) Sepsis due to pneumonia: Status: Acute Code(s): J18.9 - Pneumonia, unspecified organism; A41.9 - Sepsis, unspecified organism (2) Acute and chronic respiratory failure with hypoxia: Status: Acute Code(s): J96.21 - Acute and chronic respiratory failure with hypoxia (3) Lung nodule: Status: Acute Code(s): R91.1 - Solitary pulmonary nodule Meds Home Medications and Allergies Home Medications ?Medication ?Instructions ?Recorded ?Confirmed ?Type albuterol sulfate 90 mcg/actuation 2 inh inhalation Q6H 04/15/24 12/12/24 History aerosol inhaler alprazolam 1 mg tablet 1 mg PO BID 04/15/24 12/12/24 History calcium 600 mg (as 1 tab PO BIDWMEAL 04/15/24 12/12/24 History carbonate)-vitamin D3 5 mcg (200 unit) tablet celecoxib 50 mg capsule 50 mg PO DAILY 04/15/24 12/12/24 History cholecalciferol (vitamin D3) 1,250 1,250 mcg PO WEEKLY 04/15/24 12/12/24 History mcg (50,000 unit) capsule duloxetine 30 mg capsule,delayed 30 mg PO DAILY 04/15/24 12/12/24 History release gabapentin 800 mg tablet 800 mg PO TID 04/15/24 12/12/24 History montelukast 10 mg tablet 10 mg PO PM 04/15/24 12/12/24 History potassium chloride 20 mEq 20 meq PO BID 04/15/24 12/12/24 History tablet,extended release(part/cryst) furosemide 40 mg tablet 40 mg PO DAILY 30 days #30 tabs 08/16/24 12/12/24 Rx magnesium gluconate 27 mg 27 mg PO DAILY 11/29/24 12/12/24 History magnesium (500 mg) tablet plecanatide 3 mg tablet (Trulance) 3 mg PO DAILY 11/29/24 12/12/24 History apixaban 5 mg (74 tabs) tablets in 5 mg PO BID #74 tabs 12/01/24 12/12/24 Rx a dose pack (Evotec DVT-PE Treat 30D Start) digoxin 125 mcg (0.125 mg) tablet 125 mcg PO DAILY #30 tabs 12/01/24 12/12/24 Rx fluticasone 500 mcg-salmeterol 50 1 inh inhalation BIDRT 30 days #60 12/01/24 12/12/24 Rx mcg/dose blistr powdr for ea inhalation (Advair Diskus) ipratropium 0.5 mg-albuterol 3 mg 3 ml inhalation Q4HP PRN Shortness 12/01/24 12/12/24 Rx (2.5 mg base)/3 mL nebulization Of Breath Or Wheezing 30 days #90 soln mL metoprolol succinate 100 mg 100 mg PO HS 30 days #30 tabs 12/01/24 12/12/24 Rx tablet,extended release 24 hr levofloxacin 750 mg tablet 750 mg PO DAILY 3 days #2 tabs 12/14/24 Rx fluticasone 500 mcg-salmeterol 50 1 inh inhalation BIDRT 30 days #60 12/18/24 Rx mcg/dose blistr powdr for ea inhalation (Advair Diskus) tiotropium bromide 18 mcg capsule 1 cap inhalation DAILY #30 blisters 12/18/24 Rx with inhalation device (Spiriva with HandiHaler) New Prescriptions to Start Prescriptions: fluticasone propion-salmeterol [Advair Diskus] Sulaiman Butt levofloxacin Rossy,Teja tiotropium bromide [Spiriva with HandiHaler] Sulaiman Butt Allergies Allergy/AdvReac Type Severity Reaction Status Date / Time No Known Allergies Allergy Verified 11/17/24 15:18 Discharge Plan Disposition Patient Disposition: [facility] Condition: Fair Discharge Order Discharge Orders: Discharge Order (Routine); Ordered 12/18/24 Ordered By: Sulaiman Butt Follow up Plan Follow up with: Stephanie Espinoza APRN [Primary Care Provider, Medical] - Enter time for follow up Srini Gan MD [Physician, Pulmonology] - 01/05/25 10:40 am Prescriptions/Medication Reconciliation: New levofloxacin 750 mg tablet 750 mg PO DAILY 3 Days Qty: 2 0RF Rx Instructions: first dose 12/15/24 tiotropium bromide [Spiriva with HandiHaler] 18 mcg Capsule, W/Inhalation Device 1 cap inhalation DAILY Qty: 30 0RF fluticasone propion-salmeterol [Advair Diskus] 500-50 mcg/dose Blister With Device 1 inh inhalation BIDRT 30 Days Qty: 60 0RF Continued furosemide 40 mg tablet 40 mg PO DAILY 30 Days Qty: 30 0RF alprazolam 1 mg tablet 1 mg PO BID montelukast 10 mg tablet 10 mg PO PM celecoxib 50 mg capsule 50 mg PO DAILY duloxetine 30 mg capsule,delayed release(DR/EC) 30 mg PO DAILY calcium carbonate-vitamin D3 600 mg-5 mcg (200 unit) tablet 1 tab PO BIDWMEAL gabapentin 800 mg tablet 800 mg PO TID cholecalciferol (vitamin D3) 1,250 mcg (50,000 unit) capsule 1,250 mcg PO WEEKLY albuterol sulfate 90 mcg/actuation HFA aerosol inhaler 2 inh INHALATION Q6H potassium chloride 20 mEq tablet,ER particles/crystals 20 meq PO BID Rx Instructions: with food magnesium gluconate 27 mg magnesium (500 mg) tablet 27 mg PO DAILY Patient Comments: TAKE ONE TABLET BY MOUTH ONCE A DAY Trulance 3 mg tablet 3 mg PO DAILY metoprolol succinate 100 mg Tablet Extended Release 24 Hr 100 mg PO HS 30 Days Qty: 30 0RF fluticasone propion-salmeterol [Advair Diskus] 500-50 mcg/dose Blister With Device 1 inh inhalation BIDRT 30 Days Qty: 60 0RF ipratropium-albuterol 0.5 mg-3 mg(2.5 mg base)/3 mL Solution For Nebulization 3 ml inhalation Q4HP PRN (Reason: Shortness Of Breath Or Wheezing) 30 Days Qty: 90 0RF Eliquis DVT-PE Treat 30D Start 5 mg (74 tabs) tablets,dose pack 5 mg PO BID Qty: 74 0RF digoxin 125 mcg (0.125 mg) tablet 125 mcg PO DAILY Qty: 30 0RF Discontinued losartan 100 mg tablet 100 mg PO DAILY amlodipine 10 mg Tablet 10 mg PO DAILY Qty: 30 0RF Problem Reconciliation Problems Reviewed?: Yes Patient Discharge Instructions ACTIVITY: Continue current activity DIET: continue same diet Patient Instructions: DI for Chronic Obstructive Pulmonary Disease, DI for Pneumonia -- Adult, DI for Respiratory Failure, Stop Light Pneumonia, Stop Light COPD, Stop Light Heart Failure Print Language: Icelandic Providers Primary Care Provider: Stephanie Espinoza Admit Provider: Teja Blair Attending Provider: Teja Blair
--- NOTE | 2024-12-18 14:32 | PC.NURSE ---
Pt. refused the rest of her vitals stating she was leaving today.
--- NOTE | 2024-12-18 15:35 | PC.NURSE ---
Spoke with Magdy patient's son and he will come get her to take her to [facility] in about an hour.
--- NOTE | 2024-12-18 16:21 | PC.NURSE ---
Sherry MARTI at [facility].
--- NOTE | 2024-12-22 07:54 | P.PNANES_ITS ---
[facility] Anesthesia Record Part II Anesthesia Record Part II Discharge Time: 13:28 Destination: Surgical Day Care (OP Surgery) PACU nurse assessment reviewed?: Yes Patient Condition:: Good Anesthesia Complications:: None Swallowing reflex intact?: Yes Airway Patency: Patent Cyanosis?: No Blood Pressure: 123/66 SaO2: 94 Respiratory Rate: 16 Pulse Rate: 93 Temperature: 97.1 F Mental Status: Alert & Oriented Pain level:: 0 Nausea and/or vomitting:: None Intake, IV Amount: 0 Hydration: Adequate
[2024-12-22 07:55] VITALS: BP 123/66; PULSE 93; RESP 16; TEMP 36.2; O2SAT 94
--- NOTE | 2025-01-21 09:34 | EXP.BRONCH.N ---
Procedure: Date: 12/18/24 Patient Date of :: 1955 Procedure Performed:: Bronchoscopy airway examination bronchoalveolar lavage Indications:: Pneumonia Acute hypoxic respiratory failure Performing Provider:: Srini Gan MD Referring Provider:: Dr. Blair Sedation:: General anesthesia Procedure:: Bronchoscopy airway examination and bronchoalveolar lavage: A clean [place]peautic bronchoscopy was advanced through the ET tube and airways were examined up to subsegmental bronchi. Significant amounts of thick mucoid secretions occluding the left lower lobe bronchus noted. Easy to suction. Airway clear and open post suction. Rest of the Airways appeared grossly normal, no evidence of mucoid secretions, mucous plugging active bleeding/old blood clots noted. Bronchoalveolar lavage was performed in the LEFT LOWER LOBE with instillation of 60 cc normal saline with return of 25 cc back. BAL fluid was sent for cell count and differential along with bacterial fungal and AFB stain and cultures. No biopsies was performed. Patient tolerated the procedure with no immediate acute complications. We will follow the patient in pulmonary clinic in 7 to 10 days. Findings:: Please see the procedure note Recommendations:: Postoperative bronchoscopy and Complications:: No acute immediate complications Estimated blood obtained (mL): 0
== END 2024-12-18 17:32 | DRG 871 ==
LOC: ER 16:41 → ICU 17:10 → 2ND 12-12 11:56
PROVIDERS: Internal Medicine Pulmonary Disease; Nurse Practitioner Family; Student in an Organized Health Care Education/Training Program; Admitting Provider Internal Medicine Adolescent Medicine; Emergency Provider Emergency Medicine; PCP Nurse Practitioner; Visit Provider Internal Medicine Adolescent Medicine
PROC: 0B9J8ZX Drainage of Left Lower Lung Lobe, Via Natural or Artificial Opening Endoscopic, Diagnostic (ICD-10-PCS; principal; 2024-12-18 11:30)
DX: A41.52 Sepsis due to Pseudomonas (principal); J15.1 Pneumonia due to Pseudomonas; J96.21 Acute and chronic respiratory failure with hypoxia; J44.1 Chronic obstructive pulmonary disease with (acute) exacerbation; J44.0 Chronic obstructive pulmonary disease with (acute) lower respiratory infection; E87.1 Hypo-osmolality and hyponatremia; I48.91 Unspecified atrial fibrillation; I73.9 Peripheral vascular disease, unspecified; F32.A Depression, unspecified; I10 Essential (primary) hypertension; G62.9 Polyneuropathy, unspecified; R91.1 Solitary pulmonary nodule; F17.210 Nicotine dependence, cigarettes, uncomplicated; Z86.711 Personal history of pulmonary embolism; Z79.899 Other long term (current) drug therapy
CPT/HCPCS: 36415; 71045; 71250; 71275; 80053; 82803; 82962; 83605; 83735; 83880; 84100; 84145; 84436; 84443; 84484; 85007; 85025; 85610; 85730; 86140; 87040; 87070; 87102; 87116; 87186; 87205; 87206; 87636; 88112; 88305; 89051; 93005; 94640; 94660; 94667; 94761; 97110; 97162; 97166; 97530; 97535; J0456; J0692; J1100; J1956; J2003; J2250; J2405; J2704; J2919; J3010; J3370; J3475; J7050; J7120; Q9967

== ENCOUNTER 2024-12-22 21:41 | Emergency (ER) | payer MEDICARE, SELFPAY ==
[2024-12-22 21:39] VITALS: BP 144/65; PULSE 95; RESP 16; TEMP 36.9; O2SAT 96; BMI 23.3
--- OUTSIDE RECORDS SUMMARY | 2024-12-22 21:49 | XMS_ITS | Clinical Summary ---
Author Organization [facility] Address [address] [place] [address] Phone Care Team Providers Care Mathematics Professor Name Role Phone Unavailable Unavailable Conditions or Problems No information available. Medications No information available. Medications Administered No information available. Allergies, Adverse Reactions, Alerts No information available. Results No information available. Plan of Care No information available. Procedures No information available. Vital Signs No information available. Immunizations No information available. Advance Directives No information available.
--- OUTSIDE RECORDS SUMMARY | 2024-12-22 21:49 | XMS_ITS | Referral Summary ---
Author Organization [employer] Address [address] [place] [place] [address] Care Team Providers Care Research Group Director Name Role Phone Rajat Navarro MD Primary Care Provider [phone] Encounters Date Type Department Care Team Description 10/06/2024 7:30 PM EDT - 10/09/2024 5:03 PM EDT Hospital Encounter [facility] [address] [facility] [address] [place] [address] Madelaine Lawson MD Zohary, MD Loly Cunningham, MD Sania Altered mental status (Primary Dx); Pneumonia; CO2 retention; Foot ulcer (HCC); Altered mental status, unspecified altered mental status type; Pneumonia due to infectious organism, unspecified laterality, unspecified part of lung; Ulcer of foot, unspecified laterality, unspecified ulcer stage (HCC) Discharge Disposition: Home or Self Care 10/06/2024 Travel from Last 3 Months Allergies No known active allergies Medications albuterol 90 mcg/actuation inhaler Inhale 2 puffs by mouth every 6 (six) hours as needed for wheezing. Active calcium carbonate-vitam in D3 600 mg-5 mcg (200 unit) per tablet Take 1 tablet by mouth 2 (two) times daily. Active cholecalciferol , vitamin D3, 1,250 mcg (50,000 unit) tab Take 1 tablet (50,000 Units total) by mouth once a week. Active ALPRAZolam (XANAX) 1 MG tablet Take 1 tablet (1 mg total) by mouth 2 (two) times daily. Max Daily Amount: 2 mg Active gabapentin (NEURONTIN) 800 MG tablet Take 1 tablet (800 mg total) by mouth 3 (three) times daily. Max Daily Amount: 2,400 mg Active celecoxib (CeleBREX) 50 MG capsule Take 1 capsule (50 mg total) by mouth daily. Active DULoxetine (CYMBALTA) 30 MG capsule Take 1 capsule (30 mg total) by mouth daily. Active furosemide (LASIX) 40 MG tablet Take 1 tablet (40 mg total) by mouth daily. Active HYDROcodone-audrey taminophen (NORCO) 10-325 mg per tablet Take 1 tablet by mouth every 6 (six) hours as needed for pain. Max Daily Amount: 4 tablets Active losartan (COZAAR) 100 MG tablet Take 1 tablet (100 mg total) by mouth daily. Active magnesium oxide (MAG-OX) 250 mg magnesium tab tablet Take 1 tablet (250 mg total) by mouth 2 (two) times daily with breakfast and dinner. Active montelukast (SINGULAIR) 10 mg tablet Take 1 tablet (10 mg total) by mouth nightly. Active potassium chloride (KLOR-CON) 20 MEQ tablet Take 1 tablet (20 mEq total) by mouth 2 (two) times daily. Active linaCLOtide (Linzess) 145 mcg cap 1 capsule (145 mcg total) daily as needed (for Constipation). Active polyethylene glycol (GLYCOLAX) 17 gram packet Take 17 g by mouth daily. Active tiotropium (Spiriva with HandiHaler) 18 mcg inhalation capsule Inhale 1 capsule (18 mcg total) by mouth daily. 30 capsule 5 10/10/19 26 Active Active Problems Problem Noted Date Diagnosed Date Acute on chronic hypoxic respiratory failure Social History Tobacco Use Types Packs/Day Years Used Date Smoking Tobacco: Every Day Cigarettes Tobacco Cessation:Ready to Q uit: Not Asked; Counseling Given: Not Answered Alcohol Use Standard Drinks/Week Comments Never 0 (1 standard drink = 0.6 oz pur e alcohol) Utilities Answer Date Recorded In the past 12 months, has t he [employer], gas, oil, or water company threatened to shut off services in your home? No 10/07/2024 Interpersonal Safety Answer Date Record ed How often does anyone, inclu ding family and friends, physically hurt you? Never 10/07/2024 How often does anyone, inclu ding family and friends, insult or talk down to you? Never 10/07/2024 How often does anyone, conrad bravo family and friends, threaten you with harm? Never 10/07/2024 How often does anyone, conrad bravo family and friends, scream or curse at you? Never 10/07/2024 Housing Stability Answer Date Recorded What is your living situation today? I have a [facility] place to live 10/07/[address] you li ve. Do you have problems with any of the following? None of the above 10/07/2024 Food Insecurity Answer Date Recorded Within the past 12 months, y ou worried that your food would run out before you got money to buy more. Never true 10/07/2024 Within the past 12 months, t he food you bought just didn't last and you didn't have money to get more. Never true 10/07/2024 Transportation Needs Answer Date Record ed In the past 12 months, has l ack of reliable transportation kept you from medical appointments, meetings, work or from getting things needed for daily living? No 10/07/2024 Financial Resource Strain Answer Date R ecorded How hard is it for you to pa y for the very basics like food, housing, medical care, and heating? Would you say it is: Not hard at all 10/07/2024 Employment Answer Date Recorded Do you want help finding or keeping work or a job? I do not need or want help 10/07/2024 Family and Community Support Answer Joni e Recorded If for any reason you need h elp with day-to-day activities such as bathing, preparing meals, shopping, managing finances, etc., do you get the help you need? I get all the help I need 10/07/2024 Feeling Lonely or Isolated 0 10/07 Educational Attainment Answer Date Loc rded Do you speak a language other than [facility] at [facility]? No 10/07/2024 Do you want help with school or training? For example, starting or completing job training or getting a high school diploma, GED or equivalent. No 10/07/2024 Physical Activity Answer Date Recorded Number of minutes of exercise per week 60 10/07/2024 Alcohol Use Answer Date Recorded 5 or More Drinks Per Day Past 12 Months 0 10/07/2024 Depression Answer Date Recorded Calculation of above two rows 0 Stress Answer Date Recorded Stress means a situation in which a person feels tense, restless, nervous, or anxious, or is unable to sleep at night because his or her mind is troubled all the time. Do you feel this kind of stress these days? Not at all 10/07/2024 Disabilities Answer Date Recorded Because of a physical, menta l, or emotional condition, do you have serious difficulty concentrating, remembering, or making decisions? (5 years or older) No 10/07/2024 Because of a physical, menta l, or emotional condition, do you have difficulty doing errands alone such as visiting a doctor's office or shopping? (15 years or older) No 10/07/2024 Substance Use Answer Date Recorded How many times in the past y ear have you used prescription drugs for non-medical reasons? Never 10/07/2024 How many times in the past year have you used [place] legal drugs? Never 10/07/2024 Comments No Sex and Gender Information Value Date Recorded Sex Assigned at Female 01/09/2022 1:15 PM CDT Legal Sex Female 1:15 PM CDT Gender Identity Female 01/09/2022 1:15 PM CDT Sexual Orientation Not on file Last Filed Vital Signs Vital Sign Reading Time Taken Comments Blood Pressure 162/95 10/09/2024 11:34 AM EDT Pulse 89 10/09/2024 11:34 AM EDT Temperature 36.2 C (97.1 F) 10/09/2024 11:34 AM EDT Respiratory Rate 20 10/09/2024 11:34 AM EDT Oxygen Saturation 95% 10/09/2024 11:34 AM EDT Inhaled Oxygen Concentration 40% 10/07/2024 1 0:56 PM EDT Weight 49.9 kg (110 lb) 10/06/2024 7:28 PM EDT Height 170.2 cm (5' 7 ) 10/06/2024 7:28 PM EDT Body Mass Index 17.23 10/06/2024 7:28 PM EDT Plan of Treatment Not on file Procedures Procedure Name Priority Date/Time Associated Diagnosis Comments C-REACTIVE PROTEIN Routine 10/09/2024 10 :02 AM EDT COMPREHENSIVE METABOLIC PANEL STAT 10/09/2024 10:02 AM EDT XR CHEST AP PORTABLE Routine 10/08/2024 3:04 PM EDT US LOWER EXTREMITY ARTERIES COMPLETE Routine 10/08/2024 11:00 AM EDT US BRACHIAL INDICES EXTREMITY WITH DIGITS Routine 10/08/2024 11:00 AM EDT RESPIRATORY PANEL Routine 10/08/2024 9:0 3 AM EDT C-REACTIVE PROTEIN Add-On 10/07/2024 12 :44 PM EDT BASIC METABOLIC PANEL STAT 10/07/2024 12:44 PM EDT LACTIC ACID WITH REFLEX STAT 10/07/2024 12:44 PM EDT VITAMIN D, 25-HYDROXY STAT 10/07/2024 12:44 PM EDT BLOOD GAS, ARTERIAL STAT 10/07/2024 1 2:06 PM EDT PROTEIN, RANDOM URINE Add-On 10/07/2024 4:39 AM EDT URINALYSIS, REFLEX MICROSCOPIC AND CULTURE IF INDICATED STAT 10/07/2024 4:39 AM EDT PROCALCITONIN STAT 10/07/2024 3:30 AM EDT PROBNP STAT 10/07/2024 3:30 AM EDT PREALBUMIN STAT 10/07/2024 3:30 AM EDT CBC W/ AUTO DIFF STAT 10/07/2024 3:30 AM EDT COMPREHENSIVE METABOLIC PANEL STAT 10/07/2024 3:30 AM EDT RESPIRATORY PANEL STAT 10/07/2024 1:0 5 AM EDT PTH, INTACT STAT 10/07/2024 1:03 AM EDT CALCIUM, IONIZED STAT 10/07/2024 1:03 AM EDT AMMONIA STAT 10/07/2024 1:03 AM EDT XR FOOT 3 VIEWS LEFT STAT 10/07/2024 12:49 AM EDT BLOOD GAS, ARTERIAL STAT 10/06/2024 8 :[address] BRAIN WITHOUT IV CONTRAST STAT 10/06/2024 8:09 PM EDT COVID19 SARS-COV/COV-2 INFLUENZA A/B AG STAT 10/06/2024 8:00 PM EDT BASIC METABOLIC PANEL Add-On 10/06/2024 7:59 PM EDT PROBNP STAT 10/06/2024 7:59 PM EDT HIGH SENSITIVITY TROPONIN I STAT 10/06/2024 7:59 PM EDT LACTIC ACID WITH REFLEX STAT 10/06/2024 7:59 PM EDT HEPATIC FUNCTION PANEL STAT 7:59 PM EDT CBC W/ AUTO DIFF STAT 10/06/2024 7:59 PM EDT BLOOD CULTURE STAT 10/06/2024 7:59 PM EDT BLOOD CULTURE STAT 10/06/2024 7:59 PM EDT XR CHEST 1 VIEW PORTABLE / BEDSIDE STAT 10/06/2024 7:50 PM EDT FS_MODEL_IP_ECG 12-LEAD STAT 10/06/2024 7:45 PM EDT EKG-SCANNED 10/06/2024 from Last 3 Months Results * C-Reactive Protein (10/09/2024 10:02 AM EDT) Only the most recent of2 resultswithin the time period is included. Pathologist [facility] CRP 2.4 0.0 - 5.0 mg/L 10/09/2024 11:28 AM EDT [facility] Blood Venipuncture / Unknown 10/09/2024 10:02 AM EDT 10/09/2024 10:56 AM EDT Radha Gunn MD LAB BLOOD ORDERABLES Final R esult Performing Organization Address City/State/[facility] Co de Phone Number [facility] [address] [place] [address] * (ABNORMAL) Comprehensive metabolic panel (10/09/2024 10:02 AM EDT) Only the most recent of2 resultswithin the time period is included. [facility] Glucose 144(H) 82 - 115 mg/dL 10/09/2024 11:33 AM EDT [facility] BUN 30.3(H) 9.8 - 20.1 mg/dL 10/09/2024 11:33 AM EDT [facility] Creatinine 0.85 0.57 - 1.11 mg/dL 10/09/2024 11:33 AM EDT [facility] eGFR (mL/min/1.73m2) 74 >=60 mL/min/1. 73m2 10/09/2024 11:33 AM EDT [facility] BUN/Creatinine 36(H) 8 - 20 10/09/2024 11:33 AM EDT [facility] Sodium 133(L) 136 - 145 meq/L 10/09/2024 11:33 AM EDT [facility] Potassium 3.0(L) 3.4 - 5.1 meq/L 10/09/2024 11:33 AM [facility] Chloride 96(L) 98 - 112 meq/L 10/09/2024 11:33 AM [facility] CO2 26 22 - 29 meq/L 10/09/2024 11:33 AM [facility] Anion Gap 14(H) 4 - 12 10/09/2024 11:33 AM [facility] Calcium 9.7 8.4 - 10.2 mg/dL 10/09/2024 11:33 AM [facility] AST 23 11 - 34 U/L 10/09/2024 11:33 AM [facility] Comment: AST2 reagent used for testing does not contain P5P supplementation and therefore may miss AST elevations in patients with B6 deficiency. This population may be as high as 10% in the [place], with risk factors including malabsorption, drug interactions, and alcoholic hepatitis. Alkaline Phosphatase 52 40 - 150 U/L 10/09/2024 11:33 AM [facility] ALT 12 <=34 U/L 10/09/2024 11:33 AM [facility] Comment: ALT2 reagent used for testing does not contain P5P supplementation and therefore may miss ALT elevations in patients with B6 deficiency. This population may be as high as 10% in the [place], with risk factors including malabsorption, drug interactions, and alcoholic hepatitis. Albumin 3.3(L) 3.5 - 5.0 g/dL 10/09/2024 11:33 AM [facility] Globulin 3.2 2.5 - 4.1 g/dL 10/09/2024 11:33 AM [facility] A/G Ratio 1.0 0.7 - 1.9 10/09/2024 11:33 AM [facility] Protein, Total 6.5 6.4 - 8.3 g/dL 10/09/2024 11:33 AM [facility] Total Bilirubin 0.2 0.2 - 1.2 mg/dL 10/09/2024 11:33 AM [facility] Osmolality Calc 275.2 mOsm/kg 11:33 AM [facility] Blood Venipuncture / Unknown 10/09/2024 10:02 AM EDT 10/09/2024 10:56 AM EDT Gregory Gallo MD LAB BLOOD ORDERABLES Final Re sult [facility] [address] [phone] * XR chest AP portable (10/08/2024 3:04 PM EDT) Anatomical Region Laterality Modality Chest X-Ray 10/08/2024 3:26 PM EDT Impressions 10/08/2024 3:40 PM EDT New bilateral pleural effusions with bibasilar atelectasis. Images reviewed, interpreted, and dictated by Dr. Eliel Moreno. Transcribed by Juliette Kaufman PA-C. Narrative 10/08/2024 3:40 PM EDT PORTABLE CHEST HISTORY: Dyspnea. COMPARISON: October 06, 2024. FINDINGS: The patient is rotated to the left. The heart is mildly enlarged in size. The mediastinum is unremarkable. There are small bilateral pleural effusions with bibasilar atelectasis, new from previous. There is no pneumothorax. Procedure Note Eliel Moreno MD - 10/08/2024 PORTABLE CHEST HISTORY: Dyspnea. COMPARISON: October 06, 2024. FINDINGS: The patient is rotated to the left. The heart is mildly enlarged in size. The mediastinum is unremarkable. There are small bilateral pleural effusions with bibasilar atelectasis, new from previous. There is no pneumothorax. IMPRESSION: New bilateral pleural effusions with bibasilar atelectasis. Images reviewed, interpreted, and dictated by Dr. Eliel Moreno. Transcribed by Juliette Kaufman PA-C. Radha Gunn MD IMG DIAGNOSTIC IMAGING ORDER NEERAJ Final Result * Ultrasound lower extremity arteries complete (10/08/2024 11:00 AM EDT) Anatomical Region Laterality Modality Vascular Vascular Ultraso und 10/08/2024 9:41 AM EDT Narrative 10/08/2024 6:31 PM EDT Vascular Lower Extremities Arterial Duplex and Lower Arterial Plethysmography Procedure Demographics Patient Name JACLYN PICHARDO Age 69 Patient Number [id number] Gender Female Race Unknown Ethnicity Corporate ID [id number] Height Date of 1955 Weight Accession Number [id number] BSA Room Number 413 BMI Referring Physician JEAN CARLOS RANGEL Interpreting Physician EVERETTE STEWART MD Food Analyst Edda Pelaez Procedure Type of Study: Extremities Arteries: Lower Extremities Arterial Duplex, US LOWER EXTREMITY ARTERIES COMPLETE, Lower Arterial Plethysmography. Impressions Summary INDICATION: Peripheral vascular disease I73.9 ############################# RIGHT: Mild atherosclerotic plaque noted with multiphasic waveforms throughout. OPHTHALMOLOGIST & DPA non compressible for MERCEDES. Toe brachial index 0.67 ; within the normal range. LEFT: ##There is a severe (>75%) stenosis of the external illiac artery.## Non significant, non-flow restricting plaque noted at deep femoral artery (profunda). Non significant, non-flow restricting plaque noted at mid superficial femoral artery Multiphasic waveforms of the OPHTHALMOLOGIST & DPA . OPHTHALMOLOGIST & DPA non compressible for MERCEDES. Toe brachial index 0.48 ; within the abnormal range. ############################# Blood Pressure:Right arm 189/83 mmHg.Left arm 179/101 mmHg. Patient Status:Inpatient . Study Location:Portable. Technical Quality:Technically difficult study due to patient's positioning. Stenosis - A stenosis was found in the Left Dist EIA. Measurements:Pre Stenosis PSV: 79.66 cm/s.Stenosis PSV:419.11 cm/s.Post Stenosis PSV: 237 cm/s. Velocities are measured in cm/s ; Diameters are measured in mm LE Duplex Measurements Right Left + + + + + + + + !Location ! !PSV !Wave Desc. ! !PSV !Wave Desc. ! + + + + + + + + !Dist EIA ! !71.04 !Multiphasic ! !419.11 !Multiphasic ! + + + + + + + + !Common Femoral ! !121.72 !Multiphasic ! !237 !Multiphasic ! + + + + + + + + !Deep Femoral ! !101.97 !Multiphasic ! !244.39 !Monophasic ! + + + + + + + + !Prox SFA ! !97.31 !Multiphasic ! !104.82 !Multiphasic ! + + + + + + + + !Mid SFA ! !94.2 !Multiphasic ! !63.77 !Multiphasic ! + + + + + + + + !Dist SFA ! !78.17 !Multiphasic ! !87.13 !Multiphasic ! + + + + + + + + !Prox Popliteal ! !64.78 !Multiphasic ! !89.06 !Multiphasic ! + + + + + + + + !TP Trunk ! !89.42 !Multiphasic ! !71.28 !Multiphasic ! + + + + + + + + !Dist OPHTHALMOLOGIST ! !93.56 !Multiphasic ! !82.79 !Multiphasic ! + + + + + + + + !Dist WAGNER ! !93.56 !Multiphasic ! !69.27 !Multiphasic ! + + + + + + + + !Dist DP ! !65.07 !Multiphasic ! + + + + + Velocities are measured in cm/s ; Diameters are measured in mm Pressures - Brachial Pressure:Right: 189.Left:179. Right Plethysmographic Results - Right Brachial Pressure:189. Left Plethysmographic Results - Left Brachial Pressure:179. Plethysmographic Digit Evaluation Right Left + + +--------+-----+ + +--------+-----+ + !Location ! !Pressure!Ratio!PPG Wave Form ! !Pressure!Ratio!PPG Wave Form ! + + +--------+-----+ + +--------+-----+ + !Great Toe ! !126 !0.67 ! ! !90 !0.48 ! ! + + +--------+-----+ + +--------+-----+ + Findings Right Findings Diffuse heterogenous hyperechoic smooth plaque in all visualized arteries . Multiphasic waveforms noted in the OPHTHALMOLOGIST and DPA. Left Findings Severe heterogenous hyperechoic irregular plaque in the external iliac artery . Diffuse heterogenous hyperechoic smooth plaque throughout the common femoral and superficial femoral artery . Mild heterogenous hyperechoic smooth plaque in the popliteal artery . Multiphasic waveforms in the OPHTHALMOLOGIST and DPA. Signature Procedure Note Everette Stewart MD - 10/08/2024 Vascular Lower Extremities Arterial Duplex and Lower Arterial Plethysmography Procedure Demographics Patient Name JACLYN PICHARDO Age 69 Patient Number [id number] Gender Female Race Unknown Ethnicity Corporate ID [id number] Height Date of 1955 Weight Accession Number [id number] BSA Room Number 413 BMI Referring Physician JEAN CARLOS RANGEL Interpreting Physician EVERETTE STEWART MD Food Analyst Edda Pelaez Procedure Type of Study: Extremities Arteries: Lower Extremities Arterial Duplex, US LOWER EXTREMITY ARTERIES COMPLETE, Lower Arterial Plethysmography. Impressions Summary INDICATION: Peripheral vascular disease I73.9 ############################# RIGHT: Mild atherosclerotic plaque noted with multiphasic waveformsthroughout. OPHTHALMOLOGIST & DPA non compressible for MERCEDES. Toe brachial index 0.67 ; within the normal range. LEFT: ##There is a severe (>75%) stenosis of the external illiac artery.## Non significant, non-flow restricting plaque noted at deep femoralartery (profunda). Non significant, non-flow restricting plaque noted at mid superficial femoral artery Multiphasic waveforms of the OPHTHALMOLOGIST & DPA . OPHTHALMOLOGIST & DPA non compressible for MERCEDES. Toe brachial index 0.48 ; within the abnormal range. ############################# Blood Pressure:Right arm 189/83 mmHg.Left arm 179/101 mmHg. Patient Status:Inpatient . Study Location:Portable. Technical Quality:Technically difficult study due to patient'spositioning. Stenosis - A stenosis was found in the Left Dist EIA. Measurements:Pre Stenosis PSV: 79.66 cm/s.Stenosis PSV:419.11 cm/s.Post Stenosis PSV: 237 cm/s. Velocities are measured in cm/s ; Diameters are measured in mm LE Duplex Measurements RightLeft + ++ ----- --------+ ++ +------- ----- + !Location ! !PSV!Wave Desc. ! !PSV!Wave Desc. ! + ++ ----- --------+ ++ +------- ----- + !Dist EIA ! !71.04!Multiphasic ! !419.11!Multiphasic ! + ++ ----- --------+ ++ +------- ----- + !Common Femoral ! !121.72!Multiphasic ! !237!Multiphasic ! + ++ ----- --------+ ++ +------- ----- + !Deep Femoral ! !101.97!Multiphasic ! !244.39!Monophasic ! + ++ ----- --------+ ++ +------- ----- + !Prox SFA ! !97.31!Multiphasic ! !104.82!Multiphasic ! + ++ ----- --------+ ++ +------- ----- + !Mid SFA ! !94.2!Multiphasic ! !63.77!Multiphasic ! + ++ ----- --------+ ++ +------- ----- + !Dist SFA ! !78.17!Multiphasic ! !87.13!Multiphasic ! + ++ ----- --------+ ++ +------- ----- + !Prox Popliteal ! !64.78!Multiphasic ! !89.06!Multiphasic ! + ++ ----- --------+ ++ +------- ----- + !TP Trunk ! !89.42!Multiphasic ! !71.28!Multiphasic ! + ++ ----- --------+ ++ +------- ----- + !Dist OPHTHALMOLOGIST ! !93.56!Multiphasic ! !82.79!Multiphasic ! + ++ ----- --------+ ++ +------- ----- + !Dist WAGNER ! !93.56!Multiphasic ! !69.27!Multiphasic ! + ++ ----- --------+ ++ +------- ----- + !Dist DP !!65.07!Multiphasic ! + ++ ----- --------+ + Velocities are measured in cm/s ; Diameters are measured in mm Pressures - Brachial Pressure:Right: 189.Left:179. Right Plethysmographic Results - Right Brachial Pressure:189. Left Plethysmographic Results - Left Brachial Pressure:179. Plethysmographic Digit Evaluation RightLeft + ++--------+-----+ ----- ++--------+-----+ ----- + !Location !!Pressure!Ratio!PPG Wave Form !!Pressure!Ratio!PPG Wave Form ! + ++--------+-----+ ----- ++--------+-----+ ----- + !Great Toe ! !126!0.67 ! ! !90 !0.48 !! + ++--------+-----+ ----- ++--------+-----+ ----- + Findings Right Findings Diffuse heterogenous hyperechoic smooth plaque in all visualized arteries. Multiphasic waveforms noted in the OPHTHALMOLOGIST and DPA. Left Findings Severe heterogenous hyperechoic irregular plaque in the external iliac artery . Diffuse heterogenous hyperechoic smooth plaque throughout the commonfemoral and superficial femoral artery . Mild heterogenous hyperechoic smooth plaque in the popliteal artery . Multiphasic waveforms in the OPHTHALMOLOGIST and DPA. Signature us Sara Medina PA-C IMG US ORDERABLES Final Resu lt * US BRACHIAL INDICES EXTREMITY WITH DIGITS (10/08/2024 11:00 AM EDT) Anatomical Region Laterality Modality Lower Extremity, Vascular Vascul ar Ultrasound 10/08/2024 10:4 9 AM EDT Narrative 10/08/2024 6:29 PM EDT Vascular Lower Arterial Plethysmography Procedure Demographics Patient Name JACLYN PICHARDO Age 69 Patient Number [id number] Gender Female Race Unknown Ethnicity Corporate ID [id number] Height Date of 1955 Weight Accession Number [id number] BSA Room Number 413 BMI Referring Physician JEAN CARLOS RANGEL Interpreting Physician EVERETTE STEWART MD Food Analyst Edda Pelaez Procedure Type of Study: Extremities Arteries: Lower Arterial Plethysmography, US ANKLE / BRACHIAL INDICES EXTREMITY COMPLETE. Impressions Summary INDICATION: [I73.9] Peripheral vascular disease, unspecified ############################# RIGHT: Multiphasic waveforms of the OPHTHALMOLOGIST & DPA . Unable to compress OPHTHALMOLOGIST and DPA (>220 mmHg). Toe Brachial index: 0.67 , within normal range. LEFT: Multiphasic waveforms of the OPHTHALMOLOGIST & DPA . Unable to compress OPHTHALMOLOGIST and DPA(>220 mmHg). Toe Brachial index: 0.48 , within abnormal range. ############################# Blood Pressure:Right arm 189/83 mmHg.Left arm 179/101 mmHg. Patient Status:Inpatient . Study Location:Portable. Technical Quality:Good visualization. Velocities are measured in cm/s ; Diameters are measured in mm Pressures - Brachial Pressure:Right: 189.Left:179. Right Plethysmographic Results - Right Brachial Pressure:189. Left Plethysmographic Results - Left Brachial Pressure:179. Plethysmographic Digit Evaluation Right Left + + +--------+-----+ + +--------+-----+ + !Location ! !Pressure!Ratio!PPG Wave Form ! !Pressure!Ratio!PPG Wave Form ! + + +--------+-----+ + +--------+-----+ + !Great Toe ! !126 !0.67 ! ! !90 !0.48 ! ! + + +--------+-----+ + +--------+-----+ + Findings Right Findings Multiphasic waveforms noted in the OPHTHALMOLOGIST and DPA. Left Findings Multiphasic waveforms in the OPHTHALMOLOGIST and DPA. Signature Procedure Note Everette Stewart MD - 10/08/2024 Vascular Lower Arterial Plethysmography Procedure Demographics Patient Name JACLYN PICHARDO Age 69 Patient Number [id number] Gender Female Race Unknown Ethnicity Corporate ID [id number] Height Date of 1955 Weight Accession Number [id number] BSA Room Number 413 BMI Referring Physician JEAN CARLOS RANGEL Interpreting Physician EVERETTE STEWART MD Food Analyst Edda Pelaez Procedure Type of Study: Extremities Arteries: Lower Arterial Plethysmography, US ANKLE /BRACHIAL INDICES EXTREMITY COMPLETE. Impressions Summary INDICATION: [I73.9] Peripheral vascular disease, unspecified ############################# RIGHT: Multiphasic waveforms of the OPHTHALMOLOGIST & DPA . Unable to compress OPHTHALMOLOGIST and DPA (>220 mmHg). Toe Brachial index: 0.67 , within normal range. LEFT: Multiphasic waveforms of the OPHTHALMOLOGIST & DPA . Unable to compress OPHTHALMOLOGIST and DPA(>220 mmHg). Toe Brachial index: 0.48 , within abnormal range. ############################# Blood Pressure:Right arm 189/83 mmHg.Left arm 179/101 mmHg. Patient Status:Inpatient . Study Location:Portable. Technical Quality:Good visualization. Velocities are measured in cm/s ; Diameters are measured in mm Pressures - Brachial Pressure:Right: 189.Left:179. Right Plethysmographic Results - Right Brachial Pressure:189. Left Plethysmographic Results - Left Brachial Pressure:179. Plethysmographic Digit Evaluation RightLeft + ++--------+-----+ ----- ++--------+-----+ ----- + !Location !!Pressure!Ratio!PPG Wave Form !!Pressure!Ratio!PPG Wave Form ! + ++--------+-----+ ----- ++--------+-----+ ----- + !Great Toe ! !126!0.67 ! ! !90 !0.48 !! + ++--------+-----+ ----- ++--------+-----+ ----- + Findings Right Findings Multiphasic waveforms noted in the OPHTHALMOLOGIST and DPA. Left Findings Multiphasic waveforms in the OPHTHALMOLOGIST and DPA. Signature us Sara Medina PA-C CV VASCULAR ORDERABLES Final Result * Respiratory Panel (10/08/2024 9:03 AM EDT) Only the most recent of2 resultswithin the time period is included. ADENOVIRUS Not detected Not detected 10/08/2024 10:12 AM EDT [facility] CORONAVIRUS 229E Not detected Not detected 10/08/2024 10:12 AM EDT [facility] CORONAVIRUS HKU1 Not detected Not detected 10/08/2024 10:12 AM EDT [facility] CORONAVIRUS NL63 Not detected Not detected 10/08/2024 10:12 AM EDT [facility] CORONAVIRUS OC43 Not detected Not detected 10/08/2024 10:12 AM EDT [facility] SARS-COV2/RT-PCR Not Detected Not Detected 10/08/2024 10:12 AM EDT [facility] HUMAN METAPNEUMOVIRUS Not detected Not detected 10/08/2024 10:12 AM EDT [facility] HUMAN RHINOVIRUS/ENTEROV IRUS Not detected Not detected 10/08/2024 10:12 AM EDT [facility] INFLUENZA A Not detected Not detected 10/08/2024 10:12 AM EDT [facility] INFLUENZA B Not detected Not detected 10/08/2024 10:12 AM EDT [facility] PARAINFLUENZA VIRUS 1 Not detected Not detected 10/08/2024 10:12 AM EDT [facility] PARAINFLUENZA VIRUS 2 Not detected Not detected 10/08/2024 10:12 AM EDT [facility] PARAINFLUENZA VIRUS 3 Not detected Not detected 10/08/2024 10:12 AM EDT [facility] PARAINFLUENZA VIRUS 4 Not detected Not detected 10/08/2024 10:12 AM EDT [facility] RESPIRATORY SYNCYTIAL VIRUS Not detected Not detected 10/08/2024 10:12 AM EDT [facility] BORDETELLA PARAPERTUSSIS Not detected Not detected 10/08/2024 10:12 AM EDT [facility] BORDETELLA PERTUSSIS Not detected Not detected 10/08/2024 10:12 AM EDT [facility] CHLAMYDIA PNEUMONIAE Not detected Not detected 10/08/2024 10:12 AM EDT [facility] MYCOPLASMA PNEUMONIAE Not detected Not detected 10/08/2024 10:12 AM EDT [facility] Nasopharyngeal NASOPHARYNGEAL SWAB / Unknown 10/08/2024 9:03 AM EDT 10/08/2024 9:03 AM EDT Narrative [facility] - 10/08/2024 10:12 AM EDT Testing was performed with RT-PCR methodology using the PulseOn Respiratory Panel 2.1 which has FDA [place] approval for SARS-CoV-2 testing. Negative results do not preclude infection with the SARS-CoV-2 virus and should not be used as the sole basis of patient treatment or public health decisions. Negative results must be considered in the context of an individual's recent exposures, history, and presence of clinical signs/symptoms. Follow-up testing should be performed according to the current CDC recommendations. Other viruses and bacteria not targeted by this PCR panel cannot be excluded; therefore clinical correlation and follow up of serology, culture results, and other molecular studies is required. The results are not intended to be used as the sole means for clinical diagnosis or patient management decisions. This sample was tested at the [facility] using the PiniOnArray Respiratory Panel. It is FDA cleared and has been verified and approved by the [facility] for clinical use on nasopharyngeal swab specimens. The performance of the FilmArray RP has not been established in individuals who received influenza vaccine. Recent administration of a nasal influenza vaccine may cause false positive results for Influenza A and/or Influenza B. Radha Gunn MD MICROBIOLOGY - GENERAL ORDER NEERAJ Final Result [facility] [address] [phone] * Lactic Acid with reflex (SJ) (10/07/2024 12:44 PM EDT) Only the most recent of2 resultswithin the time period is included. Lactic Acid Level (mmol/L) 1.3 0.5 - 2.2 mmol/L 10/07/2024 1:38 PM EDT [facility] Blood Venipuncture / Unknown 10/07/2024 12:44 PM EDT 10/07/2024 1:13 PM EDT Tish Leiva APRN LAB BLOOD ORDERABLES Final Re sult Performing Organization Address City/[facility]/ZIP Co de Phone Number [facility] [address] [phone] * (ABNORMAL) Vitamin D, 25-Hydroxy (10/07/2024 12:44 PM EDT) Vitamin D 25-Hydroxy 139.2(H) 30 - 80 ng/mL 10/07/2024 1:58 PM EDT [facility] Blood Venipuncture / Unknown 10/07/2024 12:44 PM EDT 10/07/2024 1:11 PM EDT Gregory Gallo MD LAB BLOOD ORDERABLES Final Re sult Performing Organization Address [facility] Co de Phone Number [facility] [address] [phone] * (ABNORMAL) Basic Metabolic Panel (10/07/2024 12:44 PM EDT) Only the most recent of2 resultswithin the time period is included. Glucose 116(H) 82 - 115 mg/dL 10/07/2024 1:58 PM EDT [facility] BUN 51.3(H) 9.8 - 20.1 mg/dL 10/07/2024 1:58 PM EDT [facility] Creatinine 1.68(H) 0.57 - 1.11 mg/dL 10/07/2024 1:58 PM EDT [facility] BUN/Creatinine 31(H) 8 - 20 10/07/2024 1:58 PM EDT [facility] eGFR (mL/min/1.73m2) 33(L) >=60 mL/min/1.7 3m2 10/07/2024 1:58 PM EDT [facility] Sodium 133(L) 136 - 145 meq/L 10/07/2024 1:58 PM EDT [facility] Potassium 4.2 3.4 - 5.1 meq/L 10/07/2024 1:58 PM EDT [facility] Chloride 97(L) 98 - 112 meq/L 10/07/2024 1:58 PM EDT [facility] CO2 25 22 - 29 meq/L 10/07/2024 1:58 PM EDT [facility] Anion Gap 15(H) 4 - 12 10/07/2024 1:58 PM EDT [facility] Calcium 12.6(H) 8.4 - 10.2 mg/dL 10/07/2024 1:58 PM EDT [facility] Osmolality Calc 281.1 mOsm/kg 1:58 PM EDT [facility] Blood Venipuncture / Unknown 10/07/2024 12:44 PM EDT 10/07/2024 1:11 PM EDT us Tish Leiva WARD ATTENDANT LAB BLOOD ORDERABLES Final Re sult [facility] [address] [phone] * (ABNORMAL) Blood gas, arterial (10/07/2024 12:06 PM EDT) Only the most recent of2 resultswithin the time period is included. pH, Arterial 7.41 7.35 - 7.45 10/07/2024 12:12 PM EDT [facility] pCO2, Arterial 49(H) 35 - 45 mm Hg 10/07/2024 12:12 PM EDT [facility] pO2, Arterial 79(L) 80 - 100 mm Hg 10/07/2024 12:12 PM EDT [facility] HCO3, Arterial 31(H) 20 - 26 mmol/L 10/07/2024 12:12 PM EDT [facility] Base Excess, Arterial 5.4(H) -2.0 - 2.0 mmol/L 10/07/2024 12:12 PM EDT [facility] O2 Sat, Arterial 96.5 95.0 - 100.0 % 10/07/2024 12:12 PM EDT [facility] CTO2 ARTERIAL 15.3 mmol/L 10/07/2024 12:12 PM EDT [facility] THB ARTERIAL 11.5(L) 12.0 - 18.0 g/dL 10/07/2024 12:12 PM EDT [facility] COLLECTION SITE Left Radial 10/07/2024 12:12 PM EDT [facility] Arterial Puncture Yes 10/07/2024 12:12 PM EDT [facility] Blood Gas O2 Delivery Device Cannula 10/07/2024 12:12 PM EDT [facility] Oxygen Flow Rate 3 10/07/2024 12:12 PM EDT [facility] Blood Gas PT Temperature C 37.0 10/07/2024 12:12 PM EDT [facility] Mikey's Test Acceptable 10/07/2024 12:12 PM EDT [facility] ABG Number of Draw Attempts 2 10/07/2024 12:12 PM EDT [facility] FIO2 10/07/2024 12:12 PM EDT [facility] Blood Gas Temperature Corrected Results No No 10/07/2024 12:12 PM EDT [facility] Blood, Arterial 10/07/2024 1 2:06 PM EDT 10/07/2024 12:12 PM EDT us Tish Leiva APRN LAB BLOOD ORDERABLES Final Re sult [facility] [address] [place] [address], [facility] [phone] * (ABNORMAL) Urinalysis, Reflex Microscopic and Culture If Indicated (10/07/2024 4:39 AM EDT) Color, UA Colorless 10/07/2024 4:59 AM EDT [facility] Clarity, UA Clear Clear 10/07/2024 4:59 AM EDT [facility] Specific [place], UA 1.008 1.005 - 1.030 10/07/2024 4:59 AM EDT [facility] pH, UA 5.5(L) 6.0 - 8.0 10/07/2024 4:59 AM EDT [facility] Leukocytes, UA Negative Negative 10/07/2024 4:59 AM EDT [facility] Nitrite, UA Negative Negative 10/07/2024 4:59 AM EDT [facility] Protein, UA Negative Negative 10/07/2024 4:59 AM EDT [facility] Glucose, UA Normal Normal 10/07/2024 4:59 AM EDT [facility] Ketones, UA Negative Negative 10/07/2024 4:59 AM EDT [facility] Bilirubin, UA Negative Negative 10/07/2024 4:59 AM EDT [facility] Blood, UA Negative Negative 10/07/2024 4:59 AM EDT [facility] Urobilinogen, UA Normal Normal 10/07/2024 4:59 AM EDT [facility] Specimen Source Urine, Clean Catch 10/07/2024 4:59 AM EDT [facility] Urine URINE SPECIMEN COLLECTION, CLEAN CATCH / Unknown 10/07/2024 4:39 AM EDT 10/07/2024 4:46 AM EDT us Malini Lux PA-C URINE ORDERABLES Final Resu lt [facility] [address] [place] [address], [facility] [phone] * (ABNORMAL) Protein, random urine (10/07/2024 4:39 AM EDT) Protein, Urine 27(H) 1 - 14 mg/dL 10/07/2024 12:50 PM EDT [facility] Comment:No normal reference range established Urine 10/07/2024 4:39 AM EDT 10/07/2024 12:25 PM EDT Gregory Gallo MD URINE ORDERABLES Final Result [facility] [address] [phone] * (ABNORMAL) CBC with automated diff (10/07/2024 3:30 AM EDT) Only the most recent of2 resultswithin the time period is included. WBC 10.7(H) 4.0 - 10.0 K/ L 10/07/2024 4:34 AM EDT [facility] RBC 3.99 3.93 - 5.22 M/ L 10/07/2024 4:34 AM EDT [facility] Hemoglobin 11.8 11.2 - 15.7 GM/DL 10/07/2024 4:34 AM EDT [facility] Hematocrit 36.7 34.1 - 44.9 % 10/07/2024 4:34 AM EDT [facility] MCV 92 79 - 95 fL 10/07/2024 4:34 AM EDT [facility] MCH 29.6 25.6 - 32.2 pg 10/07/2024 4:34 AM EDT [facility] MCHC 32.2 32.2 - 35.5 GM/DL 10/07/2024 4:34 AM EDT [facility] RDW 13.1 11.7 - 14.4 % 10/07/2024 4:34 AM EDT [facility] Platelets 248 140 - 375 K/CU MM 10/07/2024 4:34 AM EDT [facility] MPV 9.8 9.4 - 12.3 fL 10/07/2024 4:34 AM EDT [facility] % Neutros 91(H) 34 - 71 % 10/07/2024 4:34 AM EDT [facility] % Lymphs 7(L) 19 - 52 % 10/07/2024 4:34 AM EDT [facility] % Monos 1(L) 5 - 13 % 10/07/2024 4:34 AM EDT [facility] % Eos 0(L) 1 - 6 % 10/07/2024 4:34 AM EDT [facility] % Baso 0 0 - 1 % 10/07/2024 4:34 AM EDT [facility] NRBC Absolute <0.01 0 - 0.012 K/ul 10/07/2024 4:34 AM EDT [facility] # Neutros 9.75(H) 1.56 - 6.13 K/ L 10/07/2024 4:34 AM EDT [facility] # Lymphs 0.78(L) 1.18 - 3.74 K/ L 10/07/2024 4:34 AM EDT [facility] # Monos 0.06(L) 0.24 - 0.86 K/ L 10/07/2024 4:34 AM EDT [facility] # Eos <0.03(L) 0.04 - 0.36 K/ L 10/07/2024 4:34 AM EDT [facility] # Baso <0.03 0.01 - 0.08 K/ L 10/07/2024 4:34 AM EDT [facility] Immature Granulocytes-Re lative 0.70(H) 0.01 - 0.43 % 10/07/2024 4:34 AM EDT [facility] # IG 0.07(H) 0.00 - 0.03 K/uL 10/07/2024 4:34 AM EDT [facility] Blood Venipuncture / Unknown 10/07/2024 3:30 AM EDT 10/07/2024 3:42 AM EDT Narrative [facility] - 10/07/2024 4:34 AM EDT When CBC w/ Auto Diff is ordered the lab will add a Manual Differential as a quality check at no additional charge if: Lymphocytes greater than seventy five percent with normal or increased WBC Monocytes greater than Fifteen percent Basophil greater than four percent Bands >10% or several immature myeloids are seen on scan Blast? Flag noted Atypical Lymph flag noted Marisa Salcido MD LAB BLOOD ORDERABLES Final Resu lt Performing Organization Address City/[facility] Co de Phone Number [facility] [address] [phone] * Procalcitonin (10/07/2024 3:30 AM EDT) Procalcitonin 0.09 See Comment ng/mL 10/07/2024 4:27 AM EDT [facility] Comment: Sepsis comment <0.5 Antibiotics Discouraged >0.5 Antibiotics Encouraged *Assessing Sepsis Risk and Severity* >2.0 ng/mL High Risk for Progression to severe sepsis and/or septic shock 0.5-2.0 ng/mL Sepsis should be considered <0.5 ng/mL Low Risk for Progression to Severe and/or septic shock Lower Respiratory Tract Infection (LRT) <0.25 Antibiotics Discouraged >0.25 Antibiotics Encouraged *Procalcitonin results should be interpreted carefully in settings that are known to falsely elevate results such as renal failure, trauma, localized infections and johnson. Blood Venipuncture / Unknown 10/07/2024 3:30 AM EDT 10/07/2024 3:42 AM EDT Maria Luisa Tabares APRN LAB BLOOD ORDERABLES Final R esult Performing Organization Address [facility] Co de Phone Number [facility] [address] [phone] * (ABNORMAL) PROBNP (10/07/2024 3:30 AM EDT) Only the most recent of2 resultswithin the time period is included. ProBNP (pg/mL) 2,073(H) 0 - 125 pg/mL 10/07/2024 4:46 AM EDT [facility] Blood Venipuncture / Unknown 10/07/2024 3:30 AM EDT 10/07/2024 3:42 AM EDT Marisa Salcido MD LAB BLOOD ORDERABLES Final Resu lt Performing Organization Address City/[facility]/ZIP Co de Phone Number [facility] [address] [phone] * Prealbumin (10/07/2024 3:30 AM EDT) Prealbumin 24 14 - 37 mg/dL 10/07/2024 4:27 AM EDT [facility] Blood Venipuncture / Unknown 10/07/2024 3:30 AM EDT 10/07/2024 3:42 AM EDT us Marisa Salcido MD LAB BLOOD ORDERABLES Final Resu lt Performing Organization Address [facility] Co de Phone Number [facility] [address] [phone] * (ABNORMAL) CALCIUM Ionized (10/07/2024 1:03 AM EDT) Calcium Ionized 1.78(H) 1.12 - 1.32 mmol/L 10/07/2024 1:36 AM EDT [facility] Blood Venipuncture / Unknown 10/07/2024 1:03 AM EDT 10/07/2024 1:28 AM EDT us Maria Luisa Tabares APRN LAB BLOOD ORDERABLES Final R esult Performing Organization Address [facility] Co de Phone Number [facility] [address] [phone] * PTH, intact (10/07/2024 1:03 AM EDT) PTH 27.6 8.7 - 77.1 pg/mL 10/07/2024 2:32 AM EDT [facility] Comment:This is an appended report. These results have been appended to a previously final verified report. PTH Type (pg/mL) Non-IntraO p pg/mL 10/07/2024 2:32 AM EDT [facility] Blood Venipuncture / Unknown 10/07/2024 1:03 AM EDT 10/07/2024 1:28 AM EDT Maria Luisa Tabares APRN LAB BLOOD ORDERABLES Edited Result - Final Performing Organization Address [facility] de Phone Number [facility] [address] [phone] * Ammonia (10/07/2024 1:03 AM EDT) Ammonia 33 18 - 72 mol/L 10/07/2024 1:49 AM EDT [facility] Comment:Specimen slightly he molyzed Blood Venipuncture / Unknown 10/07/2024 1:03 AM EDT 10/07/2024 1:27 AM EDT Maria Luisa Tabares WARD ATTENDANT LAB BLOOD ORDERABLES Final R esult Performing Organization Address [facility] Phone Number [facility] [address] [phone] * XR foot 3 views left (10/07/2024 12:49 AM EDT) Anatomical Region Laterality Modality Foot, Ankle X-Ray 10/07/2024 9:20 AM EDT Impressions 10/07/2024 9:37 AM EDT No definite fracture. Mild soft tissue swelling. Images reviewed, interpreted, and dictated by Dr. Eliel Moreno. Transcribed by Trice Madrigal PA-C. Narrative 10/07/2024 9:37 AM EDT LEFT FOOT SERIES. HISTORY: Acute left foot pain, recent fracture. FINDINGS: Three views of the left foot were performed. Images are somewhat degraded by patient motion. There is no definite fracture. By history, a fracture is present, but this is not identified on this examination. The joint spaces appear normal. There is mild soft tissue swelling over the dorsum of the foot. Procedure Note Eleil Moreno MD - 10/07/2024 LEFT FOOT SERIES. HISTORY: Acute left foot pain, recent fracture. FINDINGS: Three views of the left foot were performed. Images are somewhat degraded by patient motion. There is no definite fracture. By history, a fracture is present, but this is not identified on this examination. The joint spaces appear normal. There is mild soft tissue swelling over the dorsum of the foot. IMPRESSION: No definite fracture. Mild soft tissue swelling. Images reviewed, interpreted, and dictated by Dr. Eliel Moreno. Transcribed by Trice Madrigal PA-C. Malini Lux PA-C [facility] Final Result * CT brain without IV contrast (10/06/2024 8:09 PM EDT) Anatomical Region Laterality Modality Brain, Head Computed Tomogra phy (CT) 10/06/2024 8:17 PM EDT Impressions 10/06/2024 8:25 PM EDT Atrophy and chronic microvascular ischemia, without acute intracranial process. Images reviewed, interpreted, and dictated by Vicky Salamanca M.D. Narrative 10/06/2024 8:[address] 10/06/2024 7:53 PM HISTORY: Focal neurologic deficit. COMPARISON: None. TECHNIQUE: Multiple axial CT images were performed from the foramen magnum to the vertex. Individualized dose reduction techniques using automated exposure control or adjustment of mA and/or kV according to the patient size were employed. FINDINGS: Bilateral basal ganglia infarcts. There is mild to moderate generalized cerebral atrophy and proportionate enlargement of the ventricles. There is a moderate degree of hypoattenuation seen in the periventricular and subcortical white matter, which is most consistent with chronic microvascular ischemia. There is no evidence of acute edema or hemorrhage. No masses are identified. No extra-axial fluid is seen. The paranasal sinuses are unremarkable. Procedure Note Reymundo Salamanca MD - 10/06/[address] 10/06/2024 7:53 PM HISTORY: Focal neurologic deficit. COMPARISON: None. TECHNIQUE: Multiple axial CT images were performed from the foramen magnum to the vertex. Individualized dose reduction techniques using automated exposure control or adjustment of mA and/or kV according to the patient size were employed. FINDINGS: Bilateral basal ganglia infarcts. There is mild to moderate generalized cerebral atrophy and proportionate enlargement of the ventricles. There is a moderate degree of hypoattenuation seen in the periventricular and subcortical white matter, which is most consistent with chronic microvascular ischemia. There is no evidence of acute edema or hemorrhage. No masses are identified. No extra-axial fluid is seen. The paranasal sinuses are unremarkable. IMPRESSION: Atrophy and chronic microvascular ischemia, without acute intracranial process. Images reviewed, interpreted, and dictated by Vicky Salamanca M.D. Malini Lux PA-C IMG CT ORDERABLES Final Res ult * COVID19 SARS-COV/COV-2 INFLUENZA A/B AG (10/06/2024 8:00 PM EDT) SARS-COV/COV 2 ANTIGEN Negative Negative, Invalid 10/06/2024 9:10 PM EDT [facility] INFLUENZA AAG Negative Negative, Invalid 10/06/2024 9:10 PM EDT [facility] INFLUENZA BAG Negative Negative, Invalid 10/06/2024 9:10 PM EDT [facility] Nasal Swab (Nasal) 10/06/2024 8:00 PM EDT 10/06/2024 8:14 PM EDT Narrative [facility] - 10/06/2024 9:10 PM EDT The [employer] Veritor System for Rapid Detection of SARS-CoV-2 & Flu A+B is only for in vitro diagnostic use under the Food and Drug Administration's Emergency Use Authorization (EUA). This product has not been FDA cleared or approved. Results should be correlated with the clinical history, epidemiological data, and other data available to the clinician evaluating the patient. SARS-CoV-2, influenza A, and influenza B viral antigens are generally detectable in anterior nasal swab specimens during the acute phase of infection. Positive results indicate the presence of viral antigens, but clinical correlation with patient history and other diagnostic information is necessary to determine infection status. Negative results are presumptive, do not rule out SARS-CoV-2 infection, and should not be used as the sole basis for treatment or patient management decisions, including infection control measures such as isolating from others and wearing masks. Serial testing should be performed in individuals with negative results at least twice over three days (with 48 hours between tests) for symptomatic individuals. Confirmation with a molecular assay may be necessary if there is a high likelihood of SARS-CoV-2 infection. All negative influenza A and B test results are presumptive and it is recommended that these results be confirmed by an FDA-cleared influenza A and B molecular assay. Negative results do not preclude influenza virus infection and should not be used as the sole basis for treatment or other management decisions. Malini Lux PA-C MICROBIOLOGY - GENERAL ORDE RABLES Final Result Performing Organization Address [facility] Co de Phone Number [facility] [address] [phone] * (ABNORMAL) High Sensitivity Troponin I (10/06/2024 7:59 PM EDT) [facility] Troponin I High Sensitivity (pg/mL) 18.4(H) <=14 pg/mL 10/06/2024 8:51 PM EDT [facility] Blood Venipuncture / Unknown 10/06/2024 7:59 PM EDT 10/06/2024 8:14 PM EDT [facility] - 10/06/2024 8:51 PM EDT Applicable to [facility] only. Effective October 06 the lab will begin using a new chemistry analyzer. HsTroponin methodology, reference ranges and critical values have changed. Malini Lux PA-C LAB BLOOD ORDERABLES Final Result Performing Organization Address [facility] de Phone Number [facility] [address] [phone] * Blood Culture (10/06/2024 7:59 PM EDT) Only the most recent of2 resultswithin the time period is included. [facility] Result No growth in 5 days 10/11/2024 10:01 PM EDT [facility] Blood Venipuncture / Unknown 10/06/2024 7:59 PM EDT 10/06/2024 8:14 PM EDT [facility] - 10/11/2024 10:01 PM EDT Blood volume is not within specification. May compromise patient blood culture results. us Malini Lux PA-C MICROBIOLOGY - GENERAL RAFAT [place] Final Result [facility] [address] [place] [id number], [facility] [phone] * Hepatic function panel (10/06/2024 7:59 PM EDT) Protein, Total 7.5 6.4 - 8.3 g/dL 10/06/2024 8:51 PM EDT [facility] Albumin 3.8 3.5 - 5.0 g/dL 10/06/2024 8:51 PM EDT [facility] Total Bilirubin 0.6 0.2 - 1.2 mg/dL 10/06/2024 8:51 PM EDT [facility] Bilirubin, Direct 0.2 0.0 - 0.5 mg/dL 10/06/2024 8:51 PM EDT [facility] Alkaline Phosphatase 59 40 - 150 U/L 10/06/2024 8:51 PM EDT [facility] Globulin 3.7 2.5 - 4.1 g/dL 10/06/2024 8:51 PM EDT [facility] A/G Ratio 1.0 0.7 - 1.9 10/06/2024 8:51 PM EDT [facility] AST 26 11 - 34 U/L 10/06/2024 8:51 PM EDT [facility] Comment: AST2 reagent used for testing does not contain P5P supplementation and therefore may miss AST elevations in patients with B6 deficiency. This population may be as high as 10% in the [place], with risk factors including malabsorption, drug interactions, and alcoholic hepatitis. ALT <7 <=34 U/L 10/06/2024 8:51 PM EDT [facility] Comment: ALT2 reagent used for testing does not contain P5P supplementation and therefore may miss ALT elevations in patients with B6 deficiency. This population may be as high as 10% in the [place], with risk factors including malabsorption, drug interactions, and alcoholic hepatitis. Blood Venipuncture / Unknown 10/06/2024 7:59 PM EDT 10/06/2024 8:14 PM EDT Malini Lux PA-C LAB BLOOD ORDERABLES Final Result [facility] [address] [place] [address], [facility] [phone] * XR chest 1 view portable / bedside (10/06/2024 7:50 PM EDT) Anatomical Region Laterality Modality X-Ray 10/07/2024 8:07 AM EDT Impressions 10/07/2024 8:16 AM EDT No acute cardiopulmonary process. Images reviewed, interpreted, and dictated by Dr. Eliel Moreno. Transcribed by Sarah Naik Narrative 10/07/2024 8:16 AM EDT PORTABLE CHEST 10/06/2024 7:50 PM HISTORY: Hypoxia. COMPARISON: None. FINDINGS: The heart is proper size. The mediastinum is unremarkable. There are mild chronic changes in both lungs. There is no pneumothorax. Procedure Note Eliel Moreno MD - 10/07/2024 PORTABLE CHEST 10/06/2024 7:50 PM HISTORY: Hypoxia. COMPARISON: None. FINDINGS: The heart is proper size. The mediastinum is unremarkable. There are mild chronic changes in both lungs. There is no pneumothorax. IMPRESSION: No acute cardiopulmonary process. Images reviewed, interpreted, and dictated by Dr. Eliel Moreno. Transcribed by Sarah Naik us Malini Lux PA-C IMG DIAGNOSTIC IMAGING ORDE RABLES Final Result * ECG 12 lead (10/06/2024 7:45 PM EDT) VENTRICULAR RATE EKG/MIN 111 BPM GE MUSE ATRIAL RATE (MCT) 111 BPM GE MUSE MN Interval 129 ms GE MUSE QRS-INTERVAL (MSEC) 92 ms GE MUSE QT Interval 321 ms GE MUSE QTC Interval 436 ms GE MUSE P [place]orton 74 degrees GE MUSE R AXIS (MCT) -78 degrees GE MUSE T Wave [place] 82 degrees GE MUSE [place] Diagnosis Sinus tachycardia with occasional premature atrial complexes Left axis deviation Septal infarct , age undetermined ST elevation, consider anterior injury or acute infarct Abnormal ECG When compared with ECG of 09-JUL-2024 15:33, Criteria for Septal infarct is now present ST elevation now present in Anterior leads Nonspecific T wave abnormality, improved in Lateral leads Confirmed by Walter Mckee ([id number]) on 10/06/2024 8:44:41 PM GE MUSE 10/06/2024 7:45 PM EDT 10/06/2024 8:44 PM EDT us Malini Lux PA-C ECG ORDERABLES Final Resul t GE MUSE * EKG-SCANNED (10/06/2024) Narrative 10/06/2024 Ordered by an unspecified provider. us Default Scanning Provider SCAN ORDERS Final Result from Last 3 Months Insurance [employer] MCR ADV Advance Directives For more information, please contact: [phone] * Full Code (Latest Code Status on File) Date Activated Date Inactivated Comments 10/06/2024 8:39 PM 10/09/2024 6:04 PM Care Teams Research Group Director Relationship Specialty Start Date End Date Rajat Navarro MD [address] [place] [id number] PCP - General Family Medicine 07/09/24
--- OUTSIDE RECORDS SUMMARY | 2024-12-22 21:50 | XMS_ITS | Clinical Summary ---
Author Organization Healthcare Address [address] [place] [address] Care Team Providers Care [employer] Maker Name Role Phone Rajat Navarro MD Primary Care Provider [phone] Social History Tobacco Use Types Packs/Day Years Used Date Smoking Tobacco: Never Assessed Comments Unknown Sex and Gender Information Value Date Recorded Sex Assigned at Not on file Legal Sex Female 8:07 PM EDT Gender Identity Not on file Sexual Orientation Not on file Plan of Treatment Health Maintenance Due Date Last Done Comments [facility]-Bone Density Scan 1955 [facility]-Depression Screening 1955 [facility]-Hepatitis C Screening 1955 [facility]-Medicare Annual Wellness (AWV) 1955 [facility]-/Child/Adol SDOH Screenings 1955 [facility]- SDOH Screenings 1973 [facility]-Adult SDOH Screenings 1973 [facility]-DTaP,Tdap,and Td Vaccine s (1 - Tdap) 1974 CT Colonography 2000 Colonoscopy 2000 FIT-DNA 2000 FIT 2000 FOBT 2000 Sigmoidoscopy 2000 [facility]-Colorectal Cancer Screening 2000 [facility]-Breast Cancer Screening 2005 [facility]-Pneumococcal Vaccine: 50 + Years (1 of 1 - PCV) 2005 [facility]-Zoster Vaccines (1 of 2) 2005 [id number] Vaccine ( - 2023- season) 2024 05/24/2021, 04/26/2021 [facility]-Influenza Vaccine (Seas[place] n Ended) 2025 05/10/2010 [facility]-RSV Vaccine: 60+ Years o r (1 - 1-dose 75+ series) 2030 HPV Vaccines Aged Out No longer eligi ble based on patient's age to complete this topic [facility]-HIB Vaccines Aged Out No longer e ligible based on patient's age to complete this topic [facility]-Hepatitis A Vaccines Aged Out No longer eligible based on patient's age to complete this topic [facility]-IPV Vaccines Aged Out No longer e ligible based on patient's age to complete this topic [facility]-Rotavirus Vaccines Aged Out No lo nger eligible based on patient's age to complete this topic Insurance [employer] MEDIC[employer] Care Teams [employer] Maker Relationship Specialty Start Date End Date Rajat Navarro MD [address] [place] [address] [address] [place] [address] PCP - General 07/15/20
--- OUTSIDE RECORDS SUMMARY | 2024-12-22 21:50 | XMS_ITS | Clinical Summary ---
Author Organization [employer] Address [address] [place] [address] Care Team Providers Care Pluck Trimmer Name Role Phone Rajat Navarro MD Primary Care Provider [phone] Allergies No known active allergies Medications albuterol [...] mcg total) by mouth daily. 30 capsule 10/10/19 Active Active Problems Problem Noted Date Diagnosed Date Acute on chronic hypoxic respiratory failure Encounters Date Type Department Care Team Description 10/06/2024 7:30 PM EDT - 10/09/2024 5:03 PM EDT Hospital Encounter [place] [address] Inter[facility] [address] [place] [id number] Madelaine Lawson MD Zohary, Hossam, MD Zohary, MD Sania Altered mental status (Primary Dx); Pneumonia; CO2 retention; Foot ulcer (HCC); Altered mental status, unspecified altered mental status type; Pneumonia due to infectious organism, unspecified laterality, unspecified part of lung; Ulcer of foot, unspecified laterality, unspecified ulcer stage (HCC) Discharge Disposition: Home or Self Care 10/06/2024 Travel from Last 3 Months Social History Tobacco Use Types Packs/Day Years Used Date Smoking Tobacco: Every Day Cigarettes Tobacco Cessation:Ready to Q uit: Not Asked; Counseling Given: Not Answered Alcohol Use Standard Drinks/Week Comments Never 0 (1 standard drink = 0.6 oz pur e alcohol) Utilities Answer Date Recorded In the past 12 months, has t he [employer], gas, oil, or water company threatened to [...] Do you speak a language other than [place] at [facility]? No 10/07/2024 Do you want help with [...] 10/06/2024 7:28 PM EDT Plan of Treatment Health Maintenance Due Date Last Done Comments CT Colonography 1955 Colonoscopy 1955 Colorectal Cancer Screening 1955 DXA SCAN 1955 FOBT/FIT 1955 Fit-DNA (Cologuard) 1955 Sigmoidoscopy 1955 Depression Screening (12+) 1967 Tobacco Cessation Counseling and Screening (12+) 1967 Hepatitis C Screening 1973 DTAP/TDAP/TD VACCINES (1 - Tdap) 1974 Pneumococcal 50+ years (1 of 2 - PCV) 1974 Breast Cancer Screening 1995 Shingles Vaccine (Zoster) (1 of 2) 2005 Respiratory Syncytial Virus (RSV) Adult or (1 - Risk 60-74 years 1-dose series) 2015 COVID-19 VACCINE ( - season) 03/15/202404/2021, 04/26/2021 Falls Risk Screening 07/15/2024 Medicare IPPE (Welcome to Medicare) [id number] 08/15/2024 Influenza Vaccine (Season Ended) 2025 05/30/20 23 Procedures Procedure Name Priority Date/Time Associated Diagnosis [...] of2 resultswithin the time period is included. CRP 2.4 0.0 - 5.0 mg/L 10/09/2024 11:28 AM EDT [facility] Blood Venipuncture / Unknown 10/09/2024 10:02 AM EDT 10/09/2024 10:56 AM EDT Radha Gunn MD LAB BLOOD ORDERABLES Final R esult [facility] [address] [place] [address], [facility] [phone] * (ABNORMAL) Comprehensive metabolic panel (10/09/2024 10:02 AM EDT) Only the most recent of2 resultswithin the time period is included. Glucose 144(H) 82 - 115 mg/dL 10/09/2024 11:33 AM EDT [facility] BUN 30.3(H) 9.8 - 20.1 mg/dL 10/09/2024 11:33 AM EDT [facility] Creatinine 0.85 0.57 - 1.11 mg/dL 10/09/2024 11:33 AM EDT [facility] eGFR (mL/min/1.73m2) 74 >=60 mL/min/1. 73m2 10/09/2024 11:33 AM EDT [facility] BUN/Creatinine 36(H) 8 - 20 10/09/2024 11:33 AM EDT [facility] Sodium 133(L) 136 - 145 meq/L 10/09/2024 11:33 AM EDT [facility] Potassium 3.0(L) 3.4 - 5.1 meq/L 10/09/2024 11:33 AM EDT [facility] Chloride 96(L) 98 - 112 meq/L 10/09/2024 11:33 AM EDT [facility] CO2 26 22 - 29 meq/L 10/09/2024 11:[facility] Anion Gap 14(H) 4 - 12 10/09/2024 11:33 AM EDT [facility] Calcium 9.7 8.4 - 10.2 mg/dL 10/09/2024 11:33 AM EDT [facility] AST 23 11 - 34 U/L 10/09/2024 11:33 AM EDT [facility] Comment: AST2 reagent used for testing does not contain P5P supplementation and therefore may miss AST elevations in patients with B6 deficiency. This population may be as high as 10% in the [place], with risk factors including malabsorption, drug interactions, and alcoholic hepatitis. Alkaline Phosphatase 52 40 - 150 U/L 10/09/2024 11:33 AM EDT [facility] ALT 12 <=34 U/L 10/09/2024 11:33 AM EDT [facility] Comment: ALT2 reagent used for testing does not contain P5P supplementation and therefore may miss ALT elevations in patients with B6 deficiency. This population may be as high as 10% in the [place], with risk factors including malabsorption, drug interactions, and alcoholic hepatitis. Albumin 3.3(L) 3.5 - 5.0 g/dL 10/09/2024 11:33 AM EDT [facility] Globulin 3.2 2.5 - 4.1 g/dL 10/09/2024 11:33 AM EDT [facility] A/G Ratio 1.0 0.7 - 1.9 10/09/2024 11:33 AM EDT [facility] Protein, Total 6.5 6.4 - 8.3 g/dL 10/09/2024 11:33 AM EDT [facility] Total Bilirubin 0.2 0.2 - 1.2 mg/dL 10/09/2024 11:33 AM EDT [facility] Osmolality Calc 275.2 mOsm/kg 11:33 AM EDT [facility] Blood Venipuncture / Unknown 10/09/2024 10:02 AM EDT 10/09/2024 10:56 AM EDT us Gregory Gallo MD LAB BLOOD ORDERABLES Final Re sult [facility] [address] [phone] * XR chest AP portable (10/08/2024 3:04 [...] Lower Arterial Plethysmography Procedure Demographics Patient Name SREE PICHARDO Age 69 Patient Number [id number] Gender Female Race Unknown Ethnicity Corporate ID [id number] Height Date of 1955 Weight Accession Number [id number] BSA Room Number 413 BMI Referring Physician JEAN CARLOS RANGEL Interpreting Physician EVERETTE STEWART MD [employer] Edda Pelaez Procedure Type of Study: Extremities Arteries: Lower Extremities Arterial Duplex, US LOWER EXTREMITY ARTERIES COMPLETE, Lower Arterial Plethysmography. Impressions Summary INDICATION: Peripheral vascular disease I73.9 ############################# RIGHT: Mild atherosclerotic plaque noted with multiphasic waveforms throughout. SURFACE PLATE FINISHER & DPA non compressible for MERCEDES. Toe brachial index 0.67 ; within the normal range. LEFT: ##There is a severe (>75%) stenosis of the external illiac artery.## Non significant, non-flow restricting plaque noted at deep femoral artery (profunda). Non significant, non-flow restricting plaque noted at mid superficial femoral artery Multiphasic waveforms of the SURFACE PLATE FINISHER & DPA . SURFACE PLATE FINISHER & DPA non compressible for MERCEDES. Toe [...] + + + + + + !Dist SURFACE PLATE FINISHER ! !93.56 !Multiphasic ! !82.79 !Multiphasic ! [...] arteries . Multiphasic waveforms noted in the SURFACE PLATE FINISHER and DPA. Left Findings Severe heterogenous hyperechoic irregular plaque in the external iliac artery . Diffuse heterogenous hyperechoic smooth plaque throughout the common femoral and superficial femoral artery . Mild heterogenous hyperechoic smooth plaque in the popliteal artery . Multiphasic waveforms in the SURFACE PLATE FINISHER and DPA. Signature Procedure Note Everette Stewart MD - 10/08/2024 Vascular Lower Extremities Arterial Duplex and Lower Arterial Plethysmography Procedure Demographics Patient Name SREE PICHARDO Age 69 Patient Number [id number] Gender Female Race Unknown Ethnicity Corporate ID [id number] Height Date of 1955 Weight Accession Number [id number] BSA Room Number 413 [facility] Referring Physician JEAN CARLOS RANGEL Interpreting Physician EVERETTE STEWART MD [employer] Pelaez Procedure Type of Study: Extremities Arteries: Lower Extremities Arterial Duplex, US LOWER EXTREMITY ARTERIES COMPLETE, Lower Arterial Plethysmography. Impressions Summary INDICATION: Peripheral vascular disease I73.9 ############################# RIGHT: Mild atherosclerotic plaque noted with multiphasic waveformsthroughout. SURFACE PLATE FINISHER & DPA non compressible for MERCEDES. Toe brachial index 0.67 ; within the normal range. LEFT: ##There is a severe (>75%) stenosis of the external illiac artery.## Non significant, non-flow restricting plaque noted at deep femoralartery (profunda). Non significant, non-flow restricting plaque noted at mid superficial femoral artery Multiphasic waveforms of the SURFACE PLATE FINISHER & DPA . SURFACE PLATE FINISHER & DPA non compressible for MERCEDES. Toe [...] ----- --------+ ++ +------- ----- + !Dist SURFACE PLATE FINISHER ! !93.56!Multiphasic ! !82.79!Multiphasic ! + ++ [...] visualized arteries. Multiphasic waveforms noted in the SURFACE PLATE FINISHER and DPA. Left Findings Severe heterogenous hyperechoic irregular plaque in the external iliac artery . Diffuse heterogenous hyperechoic smooth plaque throughout the commonfemoral and superficial femoral artery . Mild heterogenous hyperechoic smooth plaque in the popliteal artery . Multiphasic waveforms in the SURFACE PLATE FINISHER and DPA. Signature us Sara Medina PA-C IMG US ORDERABLES Final Resu lt * US BRACHIAL INDICES EXTREMITY WITH DIGITS (10/08/2024 11:00 AM EDT) Anatomical Region Laterality Modality Lower Extremity, Vascular Vascul ar Ultrasound 10/08/2024 10:4 9 AM EDT Narrative 10/08/2024 6:29 PM EDT Vascular Lower Arterial Plethysmography Procedure Demographics Patient Name SREE PICHARDO Age 69 Patient Number [id number] Gender Female Race Unknown Ethnicity Corporate ID [id number] Height Date of 1955 Weight Accession Number [id number] BSA Room Number 413 BMI Referring Physician JEAN CARLOS RANGEL Interpreting Physician EVERETTE STEWART MD [employer] Pelae[employer] Procedure Type of Study: Extremities Arteries: Lower Arterial Plethysmography, US ANKLE / BRACHIAL INDICES EXTREMITY COMPLETE. Impressions Summary INDICATION: [I73.9] Peripheral vascular disease, unspecified ############################# RIGHT: Multiphasic waveforms of the SURFACE PLATE FINISHER & DPA . Unable to compress SURFACE PLATE FINISHER and DPA (>220 mmHg). Toe Brachial index: 0.67 , within normal range. LEFT: Multiphasic waveforms of the SURFACE PLATE FINISHER & DPA . Unable to compress SURFACE PLATE FINISHER and DPA(>220 mmHg). Toe Brachial index: 0.48 [...] Right Findings Multiphasic waveforms noted in the SURFACE PLATE FINISHER and DPA. Left Findings Multiphasic waveforms in the SURFACE PLATE FINISHER and DPA. Signature Procedure Note Everette Stewart MD - 10/08/2024 Vascular Lower Arterial Plethysmography Procedure Demographics Patient Name SREE PICHARDO Age 69 Patient Number [id number] Gender Female Race Unknown Ethnicity Corporate ID [id number] Height Date of 1955 Weight Accession Number [id number] BSA Room Number 413 BMI Referring Physician JEAN CARLOS RANGEL Interpreting Physician EVERETTE STEWART MD [employer] Pelaez Procedure Type of Study: Extremities Arteries: Lower Arterial Plethysmography, US ANKLE /BRACHIAL INDICES EXTREMITY COMPLETE. Impressions Summary INDICATION: [I73.9] Peripheral vascular disease, unspecified ############################# RIGHT: Multiphasic waveforms of the SURFACE PLATE FINISHER & DPA . Unable to compress SURFACE PLATE FINISHER and DPA (>220 mmHg). Toe Brachial index: 0.67 , within normal range. LEFT: Multiphasic waveforms of the SURFACE PLATE FINISHER & DPA . Unable to compress SURFACE PLATE FINISHER and DPA(>220 mmHg). Toe Brachial index: 0.48 [...] Right Findings Multiphasic waveforms noted in the SURFACE PLATE FINISHER and DPA. Left Findings Multiphasic waveforms in the SURFACE PLATE FINISHER and DPA. Signature us Sara Medina PA-C CV VASCULAR ORDERABLES Final Result * Respiratory Panel (10/08/2024 9:03 AM EDT) Only the most recent of2 resultswithin the time period is included. ADENOVIRUS Not detected Not detected 10/08/2024 10:12 AM EDT [facility] CORONAVIRUS 229E Not detected Not detected 10/08/2024 10:12 AM EDT [facility] CORONAVIRUS HKU1 Not detected Not detected 10/08/2024 10:12 AM EDT [facility] CORONAVIRUS NL63 Not detected Not detected 10/08/2024 10:12 AM EDT [facility] CORONAVIRUS OC43 Not detected Not detected 10/08/2024 10:12 AM EDT [facility] SARS-COV2/RT-PCR Not Detected Not Detected 10/08/2024 10:12 AM EDT [facility] HUMAN METAPNEUMOVIRUS Not detected Not detected 10/08/2024 10:12 AM EDT [facility] HUMAN RHINOVIRUS/ENTEROV IRUS Not detected Not detected 10/08/2024 10:12 AM EDT [facility] INFLUENZA A Not detected Not detected 10/08/2024 10:12 AM EDT [facility] INFLUENZA B Not detected Not detected 10/08/2024 10:12 AM EDT [facility] PARAINFLUENZA VIRUS 1 Not detected Not detected 10/08/2024 10:12 AM EDT [facility] PARAINFLUENZA VIRUS 2 Not detected Not detected 10/08/2024 10:12 AM EDT [facility] PARAINFLUENZA VIRUS 3 Not detected Not detected 10/08/2024 10:12 AM EDT [facility] PARAINFLUENZA VIRUS 4 Not detected Not detected 10/08/2024 10:12 AM EDT [facility] RESPIRATORY SYNCYTIAL VIRUS Not detected Not detected 10/08/2024 10:12 AM EDT [facility] BORDETELLA PARAPERTUSSIS Not detected Not detected 10/08/2024 10:12 AM EDT [facility] BORDETELLA PERTUSSIS Not detected Not detected 10/08/2024 10:12 AM EDT [facility] CHLAMYDIA PNEUMONIAE Not detected Not detected 10/08/2024 10:12 AM EDT [facility] MYCOPLASMA PNEUMONIAE Not detected Not detected 10/08/2024 10:12 AM EDT [facility] Nasopharyngeal NASOPHARYNGEAL SWAB / Unknown 10/08/2024 9:03 AM EDT 10/08/2024 9:03 AM EDT [facility] - 10/08/2024 10:12 AM EDT Testing was performed with RT-PCR methodology using the [employer] Respiratory Panel 2.1 which has FDA De [...] decisions. This sample was tested at the [facility] using the [employer] FilmArray Respiratory Panel. It is FDA cleared and has been verified and approved by the [facility] for clinical use on nasopharyngeal swab specimens. The performance of the FilmArray RP has not been established in individuals who received influenza vaccine. Recent administration of a nasal influenza vaccine may cause false positive results for Influenza A and/or Influenza B. Radha Gunn MD MICROBIOLOGY - GENERAL ORDER NEERAJ Final Result Performing Organization Address [facility]/ZIP Co de Phone Number [facility] [address] [phone] * Lactic Acid with reflex (SJ) (10/07/2024 12:44 PM EDT) Only the most recent of2 resultswithin the time period is included. Pathologist [facility] Lactic Acid Level (mmol/L) 1.3 0.5 - 2.2 mmol/L 10/07/2024 1:38 PM EDT [facility] Blood Venipuncture / Unknown 10/07/2024 12:44 PM EDT 10/07/2024 1:13 PM EDT Tish Leiva APRN LAB BLOOD ORDERABLES Final Re sult Performing Organization Address [facility]/ZIP Co de Phone Number [facility] [address] [phone] * (ABNORMAL) Vitamin D, 25-Hydroxy (10/07/2024 12:44 PM EDT) Vitamin D 25-Hydroxy 139.2(H) 30 - 80 ng/mL 10/07/2024 1:58 PM EDT [facility] Blood Venipuncture / Unknown 10/07/2024 12:44 PM EDT 10/07/2024 1:11 PM EDT us Gregory Gallo MD LAB BLOOD ORDERABLES Final Re sult [facility] [address] [phone] * (ABNORMAL) Basic Metabolic Panel (10/07/2024 12:44 PM EDT) Only the most recent of2 resultswithin the time period is included. Glucose 116(H) 82 - 115 mg/dL 10/07/2024 1:58 PM EDT [facility] BUN 51.3(H) 9.8 - 20.1 mg/dL 10/07/2024 1:58 PM EDT [facility] Creatinine 1.68(H) 0.57 - 1.11 mg/dL 10/07/2024 1:58 PM EDT [facility] BUN/Creatinine 31(H) 8 - 20 10/07/2024 1:58 PM EDT [facility] eGFR (mL/min/1.73m2) 33(L) >=60 mL/min/1.7 3m2 10/07/2024 1:58 PM EDT [facility] Sodium 133(L) 136 - 145 meq/L 10/07/2024 1:58 PM EDT [facility] Potassium 4.2 3.4 - 5.1 meq/L 10/07/2024 1:58 PM EDT [facility] Chloride 97(L) 98 - 112 meq/L 10/07/2024 1:58 PM EDT [facility] CO2 25 22 - 29 meq/L 10/07/2024 1:58 PM EDT [facility] Anion Gap 15(H) 4 - 12 10/07/2024 1:58 PM EDT [facility] Calcium 12.6(H) 8.4 - 10.2 mg/dL 10/07/2024 1:58 PM EDT [facility] Osmolality Calc 281.1 mOsm/kg 1:58 PM EDT [facility] Blood Venipuncture / Unknown 10/07/2024 12:44 PM EDT 10/07/2024 1:11 PM EDT us Henrietta Cali FILE CLERK LAB BLOOD ORDERABLES Final Re sult [facility] [address] [phone] * (ABNORMAL) Blood gas, arterial (10/07/2024 12:06 PM EDT) Only the most recent of2 resultswithin the time period is included. pH, Arterial 7.41 7.35 - 7.45 10/07/2024 12:12 PM EDT [facility] pCO2, Arterial 49(H) 35 - 45 mm Hg 10/07/2024 12:12 PM EDT [facility] pO2, Arterial 79(L) 80 - 100 mm Hg 10/07/2024 12:12 PM EDT [facility] HCO3, Arterial 31(H) 20 - 26 mmol/L 10/07/2024 12:12 PM EDT [facility] Base Excess, Arterial 5.4(H) -2.0 - 2.0 mmol/L 10/07/2024 12:12 PM EDT [facility] O2 Sat, Arterial 96.5 95.0 - 100.0 % 10/07/2024 12:12 PM EDT [facility] CTO2 ARTERIAL 15.3 mmol/L 10/07/2024 12:12 PM EDT [facility] THB ARTERIAL 11.5(L) 12.0 - 18.0 g/dL 10/07/2024 12:12 PM EDT [facility] COLLECTION SITE Left Radial 10/07/2024 12:12 PM EDT [facility] Arterial Puncture Yes 10/07/2024 12:12 PM EDT [facility] Blood Gas O2 Delivery Device Cannula 10/07/2024 12:12 PM EDT [facility] Oxygen Flow Rate 3 10/07/2024 12:12 PM EDT [facility] Blood Gas PT Temperature C 37.0 10/07/2024 12:12 PM EDT [facility] Mikey's Test Acceptable 10/07/2024 12:12 PM EDT [facility] ABG Number of Draw Attempts 2 10/07/2024 12:12 PM EDT [facility] FIO2 10/07/2024 12:12 PM EDT [facility] Blood Gas Temperature Corrected Results No No 10/07/2024 12:12 PM EDT [facility] Blood, Arterial 10/07/2024 1 2:06 PM EDT 10/07/2024 12:12 PM EDT us Tish Leiva FILE CLERK LAB BLOOD ORDERABLES Final Re sult [facility] [address] [phone] * (ABNORMAL) Urinalysis, Reflex Microscopic and Culture If Indicated (10/07/2024 4:39 AM EDT) Color, UA Colorless 10/07/2024 4:59 AM EDT [facility] Clarity, UA Clear Clear 10/07/2024 4:59 AM EDT [facility] Specific [place], UA 1.008 1.005 - 1.030 10/07/2024 4:59 AM EDT [facility] pH, UA 5.5(L) 6.0 - 8.0 10/07/2024 4:59 AM EDT [facility] Leukocytes, UA Negative Negative 10/07/2024 4:59 AM EDT [facility] Nitrite, UA Negative Negative 10/07/2024 4:59 AM EDT [facility] Protein, UA Negative Negative 10/07/2024 4:59 AM EDT [facility] Glucose, UA Normal Normal 10/07/2024 4:59 AM EDT [facility] Ketones, UA Negative Negative 10/07/2024 4:59 AM EDT [facility] Bilirubin, UA Negative Negative 10/07/2024 4:59 AM EDT [facility] Blood, UA Negative Negative 10/07/2024 4:59 AM EDT [facility] Urobilinogen, UA Normal Normal 10/07/2024 4:59 AM EDT [facility] Specimen Source Urine, Clean Catch 10/07/2024 4:59 AM EDT [facility] Urine URINE SPECIMEN COLLECTION, CLEAN CATCH / Unknown 10/07/2024 4:39 AM EDT 10/07/2024 4:46 AM EDT us Malini Lux PA-C URINE ORDERABLES Final Resu lt [facility] [address] [phone] * (ABNORMAL) Protein, random urine (10/07/2024 4:39 AM EDT) Protein, Urine 27(H) 1 - 14 mg/dL 10/07/2024 12:50 PM EDT [facility] Comment:No normal reference range established Urine 10/07/2024 4:39 AM EDT 10/07/2024 12:25 PM EDT us Gregory Gallo MD URINE ORDERABLES Final Result Performing Organization Address City/[facility]/ZIP Co de Phone Number [facility] [address] [phone] * (ABNORMAL) CBC with automated diff (10/07/2024 3:30 AM EDT) Only the most recent of2 resultswithin the time period is included. WBC 10.7(H) 4.0 - 10.0 K/ L 10/07/2024 4:34 AM EDT [facility] RBC 3.99 3.93 - 5.22 M/ L 10/07/2024 4:34 AM EDT [facility] Hemoglobin 11.8 11.2 - 15.7 GM/DL 10/07/2024 4:34 AM EDT [facility] Hematocrit 36.7 34.1 - 44.9 % 10/07/2024 4:34 AM EDT [facility] MCV 92 79 - 95 fL 10/07/2024 4:34 AM EDT [facility] MCH 29.6 25.6 - 32.2 pg 10/07/2024 4:34 AM EDT [facility] MCHC 32.2 32.2 - 35.5 GM/DL 10/07/2024 4:34 AM EDT [facility] RDW 13.1 11.7 - 14.4 % 10/07/2024 4:34 AM EDT [facility] Platelets 248 140 - 375 K/CU MM 10/07/2024 4:34 AM EDT [facility] MPV 9.8 9.4 - 12.3 fL 10/07/2024 4:34 AM EDT [facility] % Neutros 91(H) 34 - 71 % 10/07/2024 4:34 AM EDT [facility] % Lymphs 7(L) 19 - 52 % 10/07/2024 4:34 AM EDT [facility] % Monos 1(L) 5 - 13 % 10/07/2024 4:34 AM EDT [facility] % Eos 0(L) 1 - 6 % 10/07/2024 4:34 AM EDT [facility] % Baso 0 0 - 1 % 10/07/2024 4:34 AM EDT [facility] NRBC Absolute <0.01 0 - 0.012 K/ul 10/07/2024 4:34 AM EDT [facility] # Neutros 9.75(H) 1.56 - 6.13 K/ L 10/07/2024 4:34 AM EDT [facility] # Lymphs 0.78(L) 1.18 - 3.74 K/ L 10/07/2024 4:34 AM EDT [facility] # Monos 0.06(L) 0.24 - 0.86 K/ L 10/07/2024 4:34 AM EDT [facility] # Eos <0.03(L) 0.04 - 0.36 K/ L 10/07/2024 4:34 AM EDT [facility] # Baso <0.03 0.01 - 0.08 K/ L 10/07/2024 4:34 AM EDT [facility] Immature Granulocytes-Re lative 0.70(H) 0.01 - 0.43 % 10/07/2024 4:34 AM EDT [facility] # IG 0.07(H) 0.00 - 0.03 K/uL 10/07/2024 4:34 AM EDT [facility] Blood Venipuncture / Unknown 10/07/2024 3:30 AM EDT 10/07/2024 3:42 AM EDT Narrative [facility] - 10/07/2024 4:34 AM EDT When [...] Blast? Flag noted Atypical Lymph flag noted us Marisa Salcido MD LAB BLOOD ORDERABLES Final Resu lt [facility] [address] [phone] * Procalcitonin (10/07/2024 3:30 AM EDT) Procalcitonin 0.09 See Comment ng/mL 10/07/2024 4:27 AM EDT [facility] Comment: Sepsis comment <0.5 Antibiotics Discouraged [...] ORDERABLES Final R esult Performing Organization Address City/[facility] Co de Phone Number [facility] [address] [phone] * (ABNORMAL) PROBNP (10/07/2024 3:30 AM EDT) Only the most recent of2 resultswithin the time period is included. ProBNP (pg/mL) 2,073(H) 0 - 125 pg/mL 10/07/2024 4:46 AM EDT [facility] Blood Venipuncture / Unknown 10/07/2024 3:30 AM EDT 10/07/2024 3:42 AM EDT Marisa Salcido MD LAB BLOOD ORDERABLES Final Resu lt Performing Organization Address [facility] Co de Phone Number [facility] [address] [phone] * Prealbumin (10/07/2024 3:30 AM EDT) Prealbumin 24 14 - 37 mg/dL 10/07/2024 4:27 AM EDT [facility] Blood Venipuncture / Unknown 10/07/2024 3:30 AM EDT 10/07/2024 3:42 AM EDT us Marisa Salcido MD LAB BLOOD ORDERABLES Final Resu lt Performing Organization Address [facility] Co de Phone Number [facility] [address] [phone] * (ABNORMAL) CALCIUM Ionized (10/07/2024 1:03 AM EDT) Calcium Ionized 1.78(H) 1.12 - 1.32 mmol/L 10/07/2024 1:36 AM EDT [facility] Blood Venipuncture / Unknown 10/07/2024 1:03 AM EDT 10/07/2024 1:28 AM EDT Maria Luisa Tabares APRN LAB BLOOD ORDERABLES Final R esult Performing Organization Address [facility] Co ut Phone Number [facility] [address] [phone] * PTH, intact (10/07/2024 1:03 AM EDT) PTH 27.6 8.7 - 77.1 pg/mL 10/07/2024 2:32 AM EDT [facility] Comment:This is an appended report. These results have been appended to a previously final verified report. PTH Type (pg/mL) Non-IntraO p pg/mL 10/07/2024 2:32 AM EDT [facility] Blood Venipuncture / Unknown 10/07/2024 1:03 AM EDT 10/07/2024 1:28 AM EDT us Maria Luisa Tabares APRN LAB BLOOD ORDERABLES Edited Result - Final Performing Organization Address [facility] Phone Number [facility] [address] [phone] * Ammonia (10/07/2024 1:03 AM EDT) Ammonia 33 18 - 72 mol/L 10/07/2024 1:49 AM EDT [facility] Comment:Specimen slightly he molyzed Blood Venipuncture / Unknown 10/07/2024 1:03 AM EDT 10/07/2024 1:27 AM EDT us Maria Luisa Tabares APRN LAB BLOOD ORDERABLES Final R esult Performing Organization Address [facility] Co ut Phone Number [facility] 1 [place] [address], [facility] [phone] * XR foot 3 views left (10/07/2024 [...] the dorsum of the foot. Procedure Note Eliel Moreno MD - 10/07/2024 LEFT FOOT SERIES. [...] PA-C. Malini Lux PA-C IMG DIAGNOSTIC IMAGING ORDNestor [place] Final Result * CT brain without [...] by Vicky Salamanca M.D. Malini Lux PA-C [facility] CT ORDERABLES Final Res ult * COVID19 SARS-COV/COV-2 INFLUENZA A/B AG (10/06/2024 8:00 PM EDT) SARS-COV/COV 2 ANTIGEN Negative Negative, Invalid 10/06/2024 9:10 PM EDT [facility] INFLUENZA AAG Negative Negative, Invalid 10/06/2024 9:10 PM EDT [facility] INFLUENZA BAG Negative Negative, Invalid 10/06/2024 9:10 PM EDT [facility] Nasal Swab (Nasal) 10/06/2024 8:00 PM EDT 10/06/2024 8:14 PM EDT Narrative [facility] - 10/06/2024 9:10 PM EDT The [employer] System for Rapid Detection of SARS-CoV-2 & [...] decisions. Malini Lux PA-C MICROBIOLOGY - GENERAL RAFAT [place] Final Result [facility] [address] [phone] * (ABNORMAL) High Sensitivity Troponin I (10/06/2024 7:59 PM EDT) Troponin I High Sensitivity (pg/mL) 18.4(H) <=14 pg/mL 10/06/2024 8:51 PM EDT [facility] Blood Venipuncture / Unknown 10/06/2024 7:59 PM EDT 10/06/2024 8:14 PM EDT Narrative [facility] - 10/06/2024 8:51 PM EDT Applicable to [facility] only. Effective October 06 the lab will begin using a new chemistry analyzer. HsTroponin methodology, reference ranges and critical values have changed. us Malini Lux PA-C LAB BLOOD ORDERABLES Final Result Performing Organization Address [facility] Co de Phone Number [facility] [address] [phone] * Blood Culture (10/06/2024 7:59 PM EDT) Only the most recent of2 resultswithin the time period is included. Result No growth in 5 days 10/11/2024 10:01 PM EDT [facility] Blood Venipuncture / Unknown 10/06/2024 7:59 PM EDT 10/06/2024 8:14 PM EDT Narrative [facility] - 10/11/2024 10:01 PM EDT Blood volume is not within specification. May compromise patient blood culture results. us Malini Lux PA-C MICROBIOLOGY - GENERAL ORDE RABLES Final Result Performing Organization Address [facility] Co de Phone Number [facility] [address] [phone] * Hepatic function panel (10/06/2024 7:59 PM EDT) Protein, Total 7.5 6.4 - 8.3 g/dL 10/06/2024 8:51 PM EDT [facility] Albumin 3.8 3.5 - 5.0 g/dL 10/06/2024 8:51 PM EDT [facility] Total Bilirubin 0.6 0.2 - 1.2 mg/dL 10/06/2024 8:51 PM EDT [facility] Bilirubin, Direct 0.2 0.0 - 0.5 mg/dL 10/06/2024 8:51 PM EDT [facility] Alkaline Phosphatase 59 40 - 150 U/L 10/06/2024 8:51 PM EDT [facility] Globulin 3.7 2.5 - 4.1 g/dL 10/06/2024 8:51 PM EDT [facility] A/G Ratio 1.0 0.7 - 1.9 10/06/2024 8:51 PM EDT [facility] AST 26 11 - 34 U/L 10/06/2024 8:51 PM EDT [facility] Comment: AST2 reagent used for testing does not contain P5P supplementation and therefore may miss AST elevations in patients with B6 deficiency. This population may be as high as 10% in the [place], with risk factors including malabsorption, drug interactions, and alcoholic hepatitis. ALT <7 <=34 U/L 10/06/2024 8:51 PM EDT [facility] Comment: ALT2 reagent used for [...] Lux PA-C LAB BLOOD ORDERABLES Final Result [facility] [address] [place] [address] * XR chest 1 view portable / [...] Malini Lux PA-C IM[facility] DIAGNOSTIC IMAGING [facility] Final Result * ECG 12 lead (10/06/2024 7:45 PM EDT) VENTRICULAR RATE EKG/MIN 111 BPM GE MUSE ATRIAL RATE (MCT) 111 BPM GE MUSE [place] Interval 129 ms GE MUSE QRS-INTERVAL (MSEC) 92 ms GE MUSE QT Interval 321 ms GE MUSE QTC Interval 436 ms GE MUSE P [place] 74 degrees GE MUSE R AXIS (MCT) -78 degrees GE MUSE T Wave [place] 82 degrees GE MUSE [place] Diagnosis Sinus tachycardia with occasional premature atrial complexes Left axis deviation Septal infarct , age undetermined ST elevation, consider anterior injury or acute infarct Abnormal ECG When compared with ECG of 09-JUL-2024 15:33, Criteria for Septal infarct is now present ST elevation now present in Anterior leads Nonspecific T wave abnormality, improved in Lateral leads Confirmed by Walter Mckee ([id number]) on 10/06/2024 8:44:41 PM GE MUSE 10/06/2024 7:45 PM EDT 10/06/2024 8:44 PM EDT Malini Lux PA-C ECG ORDERABLES Final Resul t GE MUSE * EKG-SCANNED (10/06/2024) Narrative 10/06/2024 Ordered by an unspecified provider. us Default Scanning Provider SCAN ORDERS Final Result from Last 3 Months Insurance [employer] MCR ADV Advance Directives For more information, please contact: [phone] * Full Code (Latest Code Status on File) Date Activated Date Inactivated Comments 10/06/2024 8:39 PM 10/09/2024 6:04 PM Care Teams Pluck Trimmer Relationship Specialty Start Date End Date Rajat Navarro MD [address] [place] [id number] PCP - General Family Medicine 07/09/24
[2024-12-22 22:18] LABS: Basophils # 0.1 K/mm3 (0-0.2); Basophils % 0.4 % (0.1-2.0); Eosinophils # 0.2 Kmm3 (0.0-0.4); Eosinophils % 1.5 % (0.1-12.0); Hematocrit 31.3 % (37.0-47.0); Hemoglobin 9.8 g/dL (12.2-16.2); Immature Granulocytes # 0.35 10^3uL; Immature Granulocytes % 2.3 %; Lymphocytes # 2.5 K/mm3 (0.7-4.5); Lymphocytes % 16.2 % (10-50); Mean Corpuscular HGB Conc 31.3 g/dL (31.8-35.4); Mean Corpuscular Hemoglobin 29.4 pg (27.0-31.2); Monocytes # 0.9 K/mm3 (0.1-1.0); Monocytes % 5.7 % (1.7-9.3); Neutrophils # 11.2 K/mm3 (1.8-7.8); Neutrophils % 73.9 % (37.0-80.0); Nucleated Red Blood Cells # 0 10^3/uL; Nucleated Red Blood Cells % 0 %; Platelet Count 525 K/mm3 (142-424); Red Blood Count 3.33 M/mm3 (4.20-5.40); Red Cell Distribution Width 14.3 % (11.5-17.5); Red Cell Distribution Width-SD 48.6 fL; White Blood Count 15.1 K/mm3 (4.8-10.8)
[2024-12-22 22:19] LABS: Alanine Aminotransferase 11 U/L (12-78); Albumin Level 3.1 g/dl (3.5-5.0); Albumin/Globulin Ratio 1.1 (1.1-1.8); Alkaline Phosphatase 72 U/L (38-126); Anion Gap 5.7 mEq/L (5-15); Aspartate Amino Transferase 25 U/L (14-36); Bilirubin,Total 0.3 mg/dl (0.2-1.3); Blood Urea Nitrogen 27 mg/dl (7-17); Calcium 10.7 mg/dl (8.4-10.2); Carbon Dioxide 38 mmol/L (22.0-30.0); Chloride 90 mmol/L (98-107); Creatinine Clearance Estimated 49 mL/min (50-200); Estimated Glomerular Filt Rate 62 ml/min (>60); GFR (African American) 75 ML/MIN (>60); Globulin 2.8 g/dL (1.3-3.2); Glucose 100 mg/dl (74-100); Potassium 4.7 mmoL/L (3.5-5.1); Sodium 129 mmol/L (136-145); Total Protein,Serum 5.9 g/dl (6.3-8.2)
[2024-12-22 22:30] VITALS: BP 105/71; PULSE 98; RESP 16; O2SAT 95
[2024-12-22 22:43] LABS: Adenovirus,PCR Not Detected (NotDetected); Bordetella Pertussis Not Detected (NotDetected); Chlamydophila Pneumoniae, PCR Not Detected (NotDetected); Coronavirus 19, PCR Not Detected (NotDetected); Coronavirus 229E Not Detected (NotDetected); Coronavirus NL63 Not Detected (NotDetected); Coronavirus OC43 Not Detected (NotDetected); Coronovirus HKU1,PCR Not Detected (NotDetected); Human Metapneumovirus Not Detected (NotDetected); Influenza A, PCR Not Detected (NotDetected); Influenza AH1, 2009 Not Detected (NotDetected); Influenza AH1, PCR Not Detected (NotDetected); Influenza AH3,PCR Not Detected (NotDetected); Influenza B, PCR Not Detected (NotDetected); Mycoplasma Pneumoniae, PCR Not Detected (NotDetected); Parainfluenza 1, PCR Not Detected (NotDetected); Parainfluenza 2, PCR Not Detected (NotDetected); Parainfluenza 3, PCR Not Detected (NotDetected); Parainfluenza 4, PCR Not Detected (NotDetected); Respiratory Syncytial Virus Not Detected (NotDetected); Rhinovirus/Enterovirus Not Detected (NotDetected)
[2024-12-22 23:00] VITALS: BP 138/67; PULSE 94; RESP 26; O2SAT 95
[2024-12-22 23:30] VITALS: BP 143/73; PULSE 91; RESP 25; O2SAT 95
--- NOTE | 2024-12-22 23:41 | ED_ITS ---
Discharge Plan Disposition Patient Disposition: Home, Self-Care Prescriptions Prescriptions: New prednisone 50 mg tablet 50 mg PO DAILY 5 Days Qty: 5 0RF levofloxacin 750 mg tablet 750 mg PO DAILY 5 Days Qty: 5 0RF No Action furosemide 40 mg tablet 40 mg PO DAILY 30 Days Qty: 30 0RF alprazolam 1 mg tablet 1 mg PO BID montelukast 10 mg tablet 10 mg PO PM celecoxib 50 mg capsule 50 mg PO DAILY duloxetine 30 mg capsule,delayed release(DR/EC) 30 mg PO DAILY calcium carbonate-vitamin D3 600 mg-5 mcg (200 unit) tablet 1 tab PO BIDWMEAL gabapentin 800 mg tablet 800 mg PO TID cholecalciferol (vitamin D3) 1,250 mcg (50,000 unit) capsule 1,250 mcg PO WEEKLY albuterol sulfate 90 mcg/actuation HFA aerosol inhaler 2 inh INHALATION Q6H potassium chloride 20 mEq tablet,ER particles/crystals 20 meq PO BID Rx Instructions: with food magnesium gluconate 27 mg magnesium (500 mg) tablet 27 mg PO DAILY Patient Comments: TAKE ONE TABLET BY MOUTH ONCE A DAY Trulance 3 mg tablet 3 mg PO DAILY metoprolol succinate 100 mg Tablet Extended Release 24 Hr 100 mg PO HS 30 Days Qty: 30 0RF fluticasone propion-salmeterol [Advair Diskus] 500-50 mcg/dose Blister With Device 1 inh inhalation BIDRT 30 Days Qty: 60 0RF ipratropium-albuterol 0.5 mg-3 mg(2.5 mg base)/3 mL Solution For Nebulization 3 ml inhalation Q4HP PRN (Reason: Shortness Of Breath Or Wheezing) 30 Days Qty: 90 0RF Eliquis DVT-PE Treat 30D Start 5 mg (74 tabs) tablets,dose pack 5 mg PO BID Qty: 74 0RF digoxin 125 mcg (0.125 mg) tablet 125 mcg PO DAILY Qty: 30 0RF levofloxacin 750 mg tablet 750 mg PO DAILY 3 Days Qty: 2 0RF Rx Instructions: first dose 12/15/24 tiotropium bromide [Spiriva with HandiHaler] 18 mcg Capsule, W/Inhalation Device 1 cap inhalation DAILY Qty: 30 0RF fluticasone propion-salmeterol [Advair Diskus] 500-50 mcg/dose Blister With Device 1 inh inhalation BIDRT 30 Days Qty: 60 0RF Referrals Follow up/Referrals: Olga (ED),SEAN Brown [Primary Care Provider, Emergency Medicine] - See instructions Activity Restrictions/Add. Instructions Additional Instructions/Restrictions: Chest x-ray was read as improving from prior. Labs were unremarkable, urine was negative. Patient sleeping comfortably, no respiratory distress. Sent steroids and antibiotics for possible COPD exacerbation/pneumonia. Clinical Impressions Clinical Impression: Acute exacerbation of chronic obstructive pulmonary disease Print Language Print Language: [place] Citizen Discharge ED Provider: Rl Kendall General Adult HPI General Chief complaint: Weakness Stated complaint: shortness of air Time Seen by Provider: 12/22/24 23:30 Mode of Arrival: EMS Source of Information: Patient Description of Symptoms (Recalled from ER Triage Doc. by RN): pt presents to the ED from [facility]. pt states recent discharge from here due to left lower lobe pneumonia. pt is alert and is not compalinign of pain other then general malaise and feeling crummy . pt had recent labs at facility and found elevated WBC's. pt got duoneb, albuterol and 125 solumedrol in route. History of Present Illness HPI narrative: 69-year-old female with extensive past medical history, currently in rehab facility after recent admission for pneumonia, presents for shortness of breath. I was not personally able to speak with EMS but they reportedly gave a DuoNeb, albuterol and Solu-Medrol en route. Patient is a poor historian. She does report that she has been more short of breath and has had some dysuria recently. She says that people where she came from thought she could have pneumonia again. Related Data Home Medications ?Medication ?Instructions ?Recorded ?Confirmed albuterol sulfate 90 mcg/actuation 2 inh inhalation Q6 H 04/15/24 12/12/24 aerosol inhaler alprazolam 1 mg tablet 1 mg PO BID 04/15/24 5 calcium 600 mg (as 1 tab PO BIDWMEAL 04/15/24 0 12/12/24 carbonate)-vitamin D3 5 mcg (200 unit) tablet celecoxib 50 mg capsule 50 mg PO DAILY 04/15/2411/14 cholecalciferol (vitamin D3) 1,250 1,250 mcg PO WEEKLY 04/15/24 12/12/24 mcg (50,000 unit) capsule duloxetine 30 mg capsule,delayed 30 mg PO DAILY 12/12/24 release gabapentin 800 mg tablet 800 mg PO TID 04/15/2412/12 montelukast 10 mg tablet 10 mg PO PM 04/15/24 5 potassium chloride 20 mEq 20 meq PO BID 04/15/2412/12 tablet,extended release(part/cryst) magnesium gluconate 27 mg 27 mg PO DAILY 11/29/2411/14 magnesium (500 mg) tablet plecanatide 3 mg tablet (Trulance) 3 mg PO DAILY 11/2912/12/24 Previous Rx's ?Medication ?Instructions ?Recorded furosemide 40 mg tablet 40 mg PO DAILY 30 days #30 t abs 08/16/24 apixaban 5 mg (74 tabs) tablets in 5 mg PO BID #74 tab s 12/01/24 a dose pack (ClearTax DVT-PE Treat 30D Start) digoxin 125 mcg (0.125 mg) tablet 125 mcg PO DAILY #30 tabs 12/01/24 fluticasone 500 mcg-salmeterol 50 1 inh inhalation BID RT 30 days #60 12/01/24 mcg/dose blistr powdr for ea inhalation (Advair Diskus) ipratropium 0.5 mg-albuterol 3 mg 3 ml inhalation Q4HP PRN Shortness 12/01/24 (2.5 mg base)/3 mL nebulization Of Breath Or Wheezing 30 days #90 soln mL metoprolol succinate 100 mg 100 mg PO HS 30 days #30 t abs 12/01/24 tablet,extended release 24 hr levofloxacin 750 mg tablet 750 mg PO DAILY 3 days #2 t abs 12/14/24 fluticasone 500 mcg-salmeterol 50 1 inh inhalation BID RT 30 days #60 12/18/24 mcg/dose blistr powdr for ea inhalation (Advair Diskus) tiotropium bromide 18 mcg capsule 1 cap inhalation AURELIA LY #30 blisters 12/18/24 with inhalation device (Spiriva with HandiHaler) levofloxacin 750 mg tablet 750 mg PO DAILY 5 days #5 t abs 12/23/24 prednisone 50 mg tablet 50 mg PO DAILY 5 days #5 tab s 06/11/25 Allergies Allergy/AdvReac Type Severity Reaction Status Date / Time No Known Allergies Allergy Verified 11/17/24 15:[address] [facility] Disclaimer: The information contained in this section may have been updated after the patient was seen, as this information can be updated by other users. Medical History Pneumonia Fecal occult blood test positive Sepsis without septic shock Lymphedema Physical deconditioning General weakness Lung mass Hypomagnesemia Acute hypokalemia Chronic hyponatremia Generalized weakness COPD mixed type Lung nodule Hypokalemia Elevated troponin COPD (chronic obstructive pulmonary disease) Nocturnal hypoxemia Pulmonary emphysema Incidental pulmonary nodule, greater than or equal to 8mm Smoking greater than 30 pack years Dyspnea on exertion Tobacco abuse disorder Tobacco abuse counseling COPD (chronic obstructive pulmonary disease) Cervical cancer Surgical History History of dilation and curettage History of back surgery Family History Diabetes Social History (Updated 12/18/24 @ 11:32 by Canelo Power CRNA) Smoking Status: Unknown if ever smoked second hand exposure: Yes alcohol intake: current alcohol intake frequency: 0-2 drinks per day substance use type: denies use current occupational status: unemployed Travel in the last 8 weeks?: None household members: spouse housing: house current occupational exposures/hazards: No Have you lived/traveled outside [place] in past 30 days?: No Contact w/someone who lives/traveled outside US past 30 days?: No Exposure to someone with infectious disease in past 14 days?: No Do you have a fever (greater than 100.4 F or 38 C)?: No Have you tested positive for COVID-19?: No Exposed to someone with COVID-19 in past 14 days?: No Do you have a sore throat?: No Do you have a cough?: No Do you have any weakness?: No Do you have any diarrhea?: No Are you experiencing any unusual bleeding?: No Do you have any muscle aches/pain?: No Do you have any abdominal pain?: No Are you experiencing loss of taste or smell?: No Other Medical History Have you received the Flu Vaccine for this season: No Have you received the Pneumonia Vaccine: No ROS Obtained: Yes All systems reviewed & no additional complaints except as documented Physical Exam General General appearance: alert and in no apparent distress Comment: Sleeping on my initial evaluation Head Head exam: atraumatic and normocephalic Eye Eye exam: Present normal appearance, PERRL and EOMI ENT ENT exam: Present normal oropharynx and normal external ear exam Neck Neck exam: Present normal inspection and full ROM Chest Chest inspection: Present normal inspection and symmetric chest wall rise; Absent tenderness Respiratory Respiratory exam: Present normal lung sounds bilaterally and wheezes (Faint); Absent respiratory distress, accessory muscle use or prolonged expiratory phase Cardiovascular Cardiovascular exam: Present regular rate and normal rhythm Abdominal Exam Abdominal exam: Present soft; Absent distention, tenderness or guarding Extremities Exam Extremities exam: Present normal inspection; Absent edema or joint swelling Back Exam Back exam: Present normal inspection; Absent tenderness Neurological Exam Neurological exam: Present alert and oriented X3; Absent motor sensory deficit Psychiatric Psychiatric exam: Present normal affect and normal mood Skin Skin exam: Present warm, dry and normal color Lymphatic Lymphatic Findings: no adenopathy Medical Decision Making Medical Records Medical records reviewed: Yes I reviewed the patient's medical records. Screening: Per USPSTF and CDC recommendations, given the prevalence of disease in our region, it is our hospital?s policy to screen for HIV and viral Hepatitis for all patients aged 18 and over and those with ongoing risk factors. Azael Inquiry Pt receiving controlled substance: No Azael was queried for this patient: No Vital Signs: 12/22/24 21:39 12/22/24 22:30 12/22/24 23:00 Temperature 98.5 F Temperature Source Oral Pulse Rate 98 H 94 H Pulse Rate [Right Radial] 95 H Respiratory Rate 16 16 26 H Blood Pressure 105/71 L 138/67 Blood Pressure [Right Arm] 144/65 H Blood Pressure Mean [Right Arm] 91 Blood Pressure Position [Right Arm] Supine 02 Sat by Pulse Oximetry 96 95 95 Oxygen Delivery Method Nasal Cannula Oxygen Flow Rate (LPM) 4 12/22/24 23:30 12/23/24 00:00 12/23/24 00:30 Temperature Temperature Source Pulse Rate 91 H 91 H 84 Pulse Rate [Right Radial] Respiratory Rate 25 H 20 22 Blood Pressure 143/73 H 139/66 142/66 H Blood Pressure [Right Arm] Blood Pressure Mean [Right Arm] Blood Pressure Position [Right Arm] 02 Sat by Pulse Oximetry 95 96 94 L Oxygen Delivery Method Oxygen Flow Rate (LPM) 12/23/24 01:00 Temperature Temperature Source Pulse Rate Pulse Rate [Right Radial] Respiratory Rate 23 Blood Pressure 132/63 Blood Pressure [Right Arm] Blood Pressure Mean [Right Arm] Blood Pressure Position [Right Arm] 02 Sat by Pulse Oximetry Oxygen Delivery Method Oxygen Flow Rate (LPM) Lab Data Lab results reviewed: Yes I reviewed the patient's lab results. Lab Results 12/22/24 21:58: WBC 15.1 H, RBC 3.33 L, Hgb 9.8 L, Hct 31.3 L, MCV 94.0, MCH 29.4, MCHC 31.3 L, RDW 14.3, Plt Count 525 H, MPV 9.0, Neut % (Auto) 73.9, Lymph % (Auto) 16.2, Cache % (Auto) 5.7, Eos % (Auto) 1.5, Baso % (Auto) 0.4, Neut # (Auto) 11.2 H, Lymph # (Auto) 2.5, Cache # (Auto) 0.9, Eos # (Auto) 0.2, Baso # (Auto) 0.1, Sodium 129 L, Potassium 4.7, Chloride 90 L, Carbon Dioxide 38 H, Anion Gap 5.7, BUN 27 H, Creatinine 0.90, Estimated Creat Clear 49, Estimated GFR 62, Est GFR ( Amer) 75, Glucose 100, Calcium 10.7 H, Total Bilirubin 0.3, AST 25, ALT 11 L, Alkaline Phosphatase 72, Total Protein 5.9 L, Albumin 3.1 L, Globulin 2.8, Albumin/Globulin Ratio 1.1 12/23/24 00:44: Urine Color Yellow, Urine Appearance Clear, Urine pH 6.0, Ur Specific [place] 1.010, Urine Protein Negative, Urine Glucose (UA) Negative, Urine Ketones Negative, Urine Blood Negative, Urine Nitrate Negative, Urine Bilirubin Negative, Urine Urobilinogen 0.2, Ur Leukocyte Esterase Negative, Urine RBC Occasional, Ur Squamous Epith Cells 5-10, Urine Bacteria Trace 12/22/24 21:58 12/22/24 21:58 Orders (Tests/Meds): ED MEDICATIONS Generic Name Dose Route Start Last Admin Trade Name Freq PRN Reason Stop Dose Admin Levofloxacin 750 mg 12/23/24 01:54 Levofloxacin 750 Mg Tablet PO 12/23/24 01:55 ONCE ONE ORDERS Category Date Time Status CXR --portable [XR chest portable] Stat Exams 12/22/24 23:42 Completed CBC w/Auto Diff [Complete Blood Count Auto Diff] Stat Lab 12/22/24 21:58 Completed CMP [Comprehensive Metabolic Panel] Stat Lab 12/22/24 21:58 Completed Full Resp Panel w/COVID ([facility]) Routine Lab 12/22/24 22:34 Received Urinalysis and Microscopic Stat Lab 12/23/24 00:44 Completed Medical Decision Narrative: 69-year-old female with history of COPD on chronic nasal cannula, unknown how much exactly, lung nodule, tobacco use, recent admission for pneumonia presents for malaise, dysuria, shortness of breath. History was obtained via interactive discussion with patient, chart review. On arrival, patient is afebrile, hemodynamically stable, COPD, generally, satting appropriately on 3 L nasal cannula, GCS 15 upon awakening, moving all extremities spontaneously. Full physical exam performed and significant for faint wheezing anteriorly without respiratory distress, no abdominal tenderness Differential includes but is not limited to recurrent/worsening pneumonia, COPD exacerbation, UTI, electrolyte derangement. Patient was given DuoNeb and Solu-Medrol en route with EMS for symptomatic management and correction of underlying abnormalities. Workup initiated including CBC CMP chest x-ray UA. On re-evaluation, patient [remains afebrile, HD stable.] Laboratory workup independently interpreted by me and significant for white count of 15, mild thrombocytosis. Imaging independently interpreted by me and significant for stable chest x-ray from recent discharge. See radiology read for full review of final results. Given patient history, exam and workup, patient's presentation most likely represents COPD exacerbation. Could be recurrent pneumonia, though chest x-ray is unchanged. Given elevated white count and shortness of breath prior to arrival, we will treat as COPD exacerbation. Patient discharged with prescription for prednisone and Levaquin for empiric coverage.. Procedures Risk/Benefits of Procedure(s) Were Explained: Yes Critical Care Critical Care Time Critical Care Time: No
--- NOTE | 2024-12-22 23:42 | XR_ITS ---
PROCEDURE INFORMATION: Exam: XR Chest Exam date and time: 12/22/2024 11:45 PM Age: 69 years old Clinical indication: Shortness of breath; Additional info: SOA, recent pneumonia TECHNIQUE: Imaging protocol: Radiologic exam of the chest. Views: 1 view. COMPARISON: CR XR CHEST PORTABLE 12/18/2024 12:57 PM FINDINGS: Lungs: Left upper lobe airspace pattern infiltrate is improving. Persistent left lower lobe airspace infiltrate Pleural spaces: Small left pleural effusion Heart/Mediastinum: Cardiomegaly Bones/joints: Unremarkable. IMPRESSION: Improving left lung pneumonia.
[2024-12-23] VITALS: BP 139/66; PULSE 91; RESP 20; O2SAT 96
[2024-12-23 00:30] VITALS: BP 142/66; PULSE 84; RESP 22; O2SAT 94
[2024-12-23 00:47] LABS: Microscopic, Urine URINE MICROSCOPIC (MICROSCOPIC)
[2024-12-23 00:52] LABS: Appearance,Urine CLEAR (Clear); Bilirubin,Urine Negative (Negative); Blood, Urine Negative (Negative); Color,Urine YELLOW (Yellow); Glucose,Urine (UA) Negative (Negative); Ketones,Urine Negative (Negative); Leukocyte Esterase,Urine Negative (Negative); Nitrate,Urine Negative (Negative); Protein,Urine Negative (Negative); Urobilinogen,Urine 0.2 EU/dl (0.2)
[2024-12-23 01:00] VITALS: BP 132/63; RESP 23
[2024-12-23 01:08] LABS: Bacteria,Urine Trace /lpf; RBC,Urine Occasional #/hpf (0-3)
[2024-12-23] MEDS: levoFLOXacin 750 MG TABLET PO (01:56)
[2024-12-23 02:13] VITALS: BP 132/63; PULSE 23; RESP 18; TEMP 36.7; O2SAT 98
== END 2024-12-23 02:17 | disposition home or self-care (01) ==
PROVIDERS: Emergency Medicine; Emergency Provider Emergency Medicine; PCP Nurse Practitioner
DX: J44.1 Chronic obstructive pulmonary disease with (acute) exacerbation (principal); E87.1 Hypo-osmolality and hyponatremia; R30.0 Dysuria
CPT/HCPCS: 0223U; 71045; 80053; 81001; 85025; 87633; 99284

== ENCOUNTER 2025-01-04 17:20 | Emergency (ER) | payer MEDICARE, SELFPAY ==
[2025-01-04] VITALS (9 sets, daily range): BP systolic 103–121; BP diastolic 41–81; PULSE 86–109; RESP 13–22; TEMP 36.7; O2SAT 74–93; BMI 20.3
--- OUTSIDE RECORDS SUMMARY | 2025-01-04 17:42 | XMS_ITS | Clinical Summary ---
Author Organization Healthcare Address [address] [place] [address] Care Team Providers Care Marshmallow Maker Name Role Phone Rajat Navarro MD Primary Care Provider [phone] Social History Tobacco Use Types Packs/Day Years [...] 2005 UKY-Zoster Vaccines (1 of 2) 2005 [id number] Vaccine ( - 2023- season) 2024 05/24/2021, [...] this topic Insurance [employer] Care Teams Marshmallow Maker Relationship Specialty Start Date End Date Rajat Navarro MD [address] [place] [address] [address] [place] [address] PCP - General 07/15/20
--- OUTSIDE RECORDS SUMMARY | 2025-01-04 17:42 | XMS_ITS | Clinical Summary ---
Author Organization [facility] Address [address] [place] [address] Phone Care Team Providers Care Orthodontist Name Role Phone Unavailable Unavailable Conditions or Problems No information available. Medications No information available. Medications Administered No information available. Allergies, Adverse Reactions, Alerts No information available. Results No information available. Plan of Care No information available. Procedures No information available. Vital Signs No information available. Immunizations No information available. Advance Directives No information available.
--- OUTSIDE RECORDS SUMMARY | 2025-01-04 17:43 | XMS_ITS | Clinical Summary ---
Author Organization [employer] Address [address] [place] [address] Care Team Providers Care [employer] Worker Name Role Phone Rajat Navarro MD Primary Care Provider [phone] Allergies No known active allergies Medications albuterol [...] - 10/09/2024 5:03 PM EDT Hospital Encounter [place] [address] Interventional [facility] [address] [place] [id number] Madelaine Lawson MD Zohary, Hossam, MD [...] the past 12 months, has t he [employer], gas, oil, or water company threatened to [...] Do you speak a language other than [facility] [place] [facility]? No 10/07/2024 Do you want help with [...] 03/15/202404/2021, 04/26/2021 Falls Risk Screening 07/15/2024 Medicare Initial AWV [id number] 08/15/2024 Influenza Vaccine (Season Ended) 2025 05/30/20 [...] - 5.0 mg/L 10/09/2024 11:28 AM EDT [facility] Blood Venipuncture / Unknown 10/09/2024 10:02 AM EDT 10/09/2024 10:56 AM EDT us Radha Gunn MD LAB BLOOD ORDERABLES Final R esult [facility] [address] [place] [address] * (ABNORMAL) Comprehensive metabolic panel (10/09/2024 10:02 AM EDT) Only the most recent of2 resultswithin the time period is included. Glucose 144(H) 82 - 115 mg/dL 10/09/2024 11:33 AM [facility] BUN 30.3(H) 9.8 - 20.1 mg/dL 10/09/2024 11:33 AM [facility] Creatinine 0.85 0.57 - 1.11 mg/dL 10/09/2024 11:33 AM [facility] eGFR (mL/min/1.73m2) 74 >=60 mL/min/1. 73m2 10/09/2024 11:33 AM [facility] BUN/Creatinine 36(H) 8 - 20 10/09/2024 11:33 AM [facility] Sodium 133(L) 136 - 145 meq/L 10/09/2024 11:33 AM [facility] Potassium 3.0(L) 3.4 - 5.1 meq/L 10/09/2024 11:33 AM [facility] Chloride 96(L) 98 - 112 meq/L 10/09/2024 11:33 AM [facility] CO2 26 22 - 29 meq/L 10/09/2024 11:33 AM [facility] Anion Gap 14(H) 4 - 12 10/09/2024 11:33 AM [facility] Calcium 9.7 8.4 - 10.2 mg/dL 10/09/2024 11:33 AM [facility] AST 23 11 - 34 U/L 10/09/2024 11:33 AM [facility] Comment: AST2 reagent used for testing does not contain P5P supplementation and therefore may miss AST elevations in patients with B6 deficiency. This population may be as high as 10% in the [place], with risk factors including malabsorption, drug interactions, and alcoholic hepatitis. Alkaline Phosphatase 52 40 - 150 U/L 10/09/2024 11:33 AM [facility] ALT 12 <=34 U/L 10/09/2024 11:33 AM EDT [facility] Comment: ALT2 reagent used for testing does not contain P5P supplementation and therefore may miss ALT elevations in patients with B6 deficiency. This population may be as high as 10% in the [place], with risk factors including malabsorption, drug interactions, and alcoholic hepatitis. Albumin 3.3(L) 3.5 - 5.0 g/dL 10/09/2024 11:33 AM EDT [facility] Globulin 3.2 2.5 - 4.1 g/dL 10/09/2024 11:33 AM EDT [facility] A/G Ratio 1.0 0.7 - 1.9 10/09/2024 11:33 AM EDT [facility] Protein, Total 6.5 6.4 - 8.3 g/dL 10/09/2024 11:33 AM EDT [facility] Total Bilirubin 0.2 0.2 - 1.2 mg/dL 10/09/2024 11:33 AM EDT [facility] Osmolality Calc 275.2 mOsm/kg 11:33 AM EDT [facility] Blood Venipuncture / Unknown 10/09/2024 10:02 AM EDT 10/09/2024 10:56 AM EDT us Gregory Gallo MD LAB BLOOD ORDERABLES Final Re sult [facility] [address] [phone] * XR chest AP portable (10/08/2024 3:04 [...] Name JACLYN PICHARDO Age 69 Patient Number [id number] Gender Female Race Unknown Ethnicity Corporate ID [id number] Height Date of 1955 Weight Accession Number [id number] BSA Room Number 413 BMI Referring Physician JEAN CARLOS RANGEL Interpreting Physician EVERETTE STEWART MD Pizza [employer] Edda Pelaez Procedure Type of Study: Extremities Arteries: Lower Extremities Arterial Duplex, US LOWER EXTREMITY ARTERIES COMPLETE, Lower Arterial Plethysmography. Impressions Summary INDICATION: Peripheral vascular disease I73.9 ############################# RIGHT: Mild atherosclerotic plaque noted with multiphasic waveforms throughout. DECORATIVE CUTTING MACHINE TENDER & DPA non compressible for MERCEDES. Toe brachial index 0.67 ; within the normal range. LEFT: ##There is a severe (>75%) stenosis of the external illiac artery.## Non significant, non-flow restricting plaque noted at deep femoral artery (profunda). Non significant, non-flow restricting plaque noted at mid superficial femoral artery Multiphasic waveforms of the DECORATIVE CUTTING MACHINE TENDER & DPA . DECORATIVE CUTTING MACHINE TENDER & DPA non compressible for MERCEDES. Toe [...] + + + + + + !Dist DECORATIVE CUTTING MACHINE TENDER ! !93.56 !Multiphasic ! !82.79 !Multiphasic ! [...] arteries . Multiphasic waveforms noted in the DECORATIVE CUTTING MACHINE TENDER and DPA. Left Findings Severe heterogenous hyperechoic irregular plaque in the external iliac artery . Diffuse heterogenous hyperechoic smooth plaque throughout the common femoral and superficial femoral artery . Mild heterogenous hyperechoic smooth plaque in the popliteal artery . Multiphasic waveforms in the DECORATIVE CUTTING MACHINE TENDER and DPA. Signature Procedure Note Everette Stewart MD - 10/08/2024 Vascular Lower Extremities Arterial Duplex and Lower Arterial Plethysmography Procedure Demographics Patient Name JACLYN PICHARDO Age 69 Patient Number [id number] Gender Female Race Unknown Ethnicity Corporate ID [id number] Height Date of 1955 Weight Accession Number [id number] BSA Room Number 413 BMI Referring Physician JEAN CARLOS RANGEL Interpreting Physician EVERETTE STEWART MD Pizza [employer] Edda Pelaez Procedure Type of Study: Extremities Arteries: Lower Extremities Arterial Duplex, US LOWER EXTREMITY ARTERIES COMPLETE, Lower Arterial Plethysmography. Impressions Summary INDICATION: Peripheral vascular disease I73.9 ############################# RIGHT: Mild atherosclerotic plaque noted with multiphasic waveformsthroughout. DECORATIVE CUTTING MACHINE TENDER & DPA non compressible for MERCEDES. Toe brachial index 0.67 ; within the normal range. LEFT: ##There is a severe (>75%) stenosis of the external illiac artery.## Non significant, non-flow restricting plaque noted at deep femoralartery (profunda). Non significant, non-flow restricting plaque noted at mid superficial femoral artery Multiphasic waveforms of the DECORATIVE CUTTING MACHINE TENDER & DPA . DECORATIVE CUTTING MACHINE TENDER & DPA non compressible for MERCEDES. Toe [...] ----- --------+ ++ +------- ----- + !Dist DECORATIVE CUTTING MACHINE TENDER ! !93.56!Multiphasic ! !82.79!Multiphasic ! + ++ [...] visualized arteries. Multiphasic waveforms noted in the DECORATIVE CUTTING MACHINE TENDER and DPA. Left Findings Severe heterogenous hyperechoic irregular plaque in the external iliac artery . Diffuse heterogenous hyperechoic smooth plaque throughout the commonfemoral and superficial femoral artery . Mild heterogenous hyperechoic smooth plaque in the popliteal artery . Multiphasic waveforms in the DECORATIVE CUTTING MACHINE TENDER and DPA. Signature us Sara Medina PA-C IMG US ORDERABLES Final Resu lt * US BRACHIAL INDICES EXTREMITY WITH DIGITS (10/08/2024 11:00 AM EDT) Anatomical Region Laterality Modality Lower Extremity, Vascular Vascul ar Ultrasound 10/08/2024 10:4 9 AM EDT Narrative 10/08/2024 6:29 PM EDT [facility] Lower Arterial Plethysmography Procedure Demographics Patient Name JACLYN PICHARDO Age 69 Patient Number [id number] Gender Female Race Unknown Ethnicity Corporate ID [id number] Height Date of 1955 Weight Accession Number [id number] BSA Room Number 413 BMI Referring Physician JEAN CARLOS RANGEL Interpreting Physician EVERETTE STEWART MD Pizza [employer] Edda Pelaez Procedure Type of Study: Extremities Arteries: Lower Arterial Plethysmography, US ANKLE / BRACHIAL INDICES EXTREMITY COMPLETE. Impressions Summary INDICATION: [I73.9] Peripheral vascular disease, unspecified ############################# RIGHT: Multiphasic waveforms of the DECORATIVE CUTTING MACHINE TENDER & DPA . Unable to compress DECORATIVE CUTTING MACHINE TENDER and DPA (>220 mmHg). Toe Brachial index: 0.67 , within normal range. LEFT: Multiphasic waveforms of the DECORATIVE CUTTING MACHINE TENDER & DPA . Unable to compress DECORATIVE CUTTING MACHINE TENDER and DPA(>220 mmHg). Toe Brachial index: 0.48 [...] Right Findings Multiphasic waveforms noted in the DECORATIVE CUTTING MACHINE TENDER and DPA. Left Findings Multiphasic waveforms in the DECORATIVE CUTTING MACHINE TENDER and DPA. Signature Procedure Note Everette Stewart MD - 10/08/2024 Vascular Lower Arterial Plethysmography Procedure Demographics Patient Name JACLYN PICHARDO Age 69 Patient Number [id number] Gender Female Race Unknown Ethnicity Corporate ID [id number] Height Date of 1955 Weight Accession Number [id number] BSA Room Number 413 BMI Referring Physician JEAN CARLOS RANGEL Interpreting Physician EVERETTE STEWART MD Pizza [employer] Edda Pelaez Procedure Type of Study: Extremities Arteries: Lower Arterial Plethysmography, US ANKLE /BRACHIAL INDICES EXTREMITY COMPLETE. Impressions Summary INDICATION: [I73.9] Peripheral vascular disease, unspecified ############################# RIGHT: Multiphasic waveforms of the DECORATIVE CUTTING MACHINE TENDER & DPA . Unable to compress DECORATIVE CUTTING MACHINE TENDER and DPA (>220 mmHg). Toe Brachial index: 0.67 , within normal range. LEFT: Multiphasic waveforms of the DECORATIVE CUTTING MACHINE TENDER & DPA . Unable to compress DECORATIVE CUTTING MACHINE TENDER and DPA(>220 mmHg). Toe Brachial index: 0.48 [...] Right Findings Multiphasic waveforms noted in the DECORATIVE CUTTING MACHINE TENDER and DPA. Left Findings Multiphasic waveforms in the DECORATIVE CUTTING MACHINE TENDER and DPA. Signature us Sara Medina PA-C CV VASCULAR ORDERABLES Final Result * Respiratory Panel (10/08/2024 9:03 AM EDT) Only the most recent of2 resultswithin the time period is included. ADENOVIRUS Not detected Not detected 10/08/2024 10:12 AM EDT [facility] CORONAVIRUS 229E Not detected Not detected 10/08/2024 10:12 AM EDT [facility] CORONAVIRUS HKU1 Not detected Not detected 10/08/2024 10:12 AM EDT [facility] CORONAVIRUS NL63 Not detected Not detected 10/08/2024 10:12 AM EDT [facility] CORONAVIRUS OC43 Not detected Not detected 10/08/2024 10:12 AM EDT [facility] SARS-COV2/RT-PCR Not Detected Not Detected 10/08/2024 10:12 AM EDT [facility] HUMAN METAPNEUMOVIRUS Not detected Not detected 10/08/2024 10:12 AM EDT [facility] HUMAN RHINOVIRUS/ENTEROV IRUS Not detected Not detected 10/08/2024 10:12 AM EDT [facility] INFLUENZA A Not detected Not detected 10/08/2024 10:12 AM EDT [facility] INFLUENZA B Not detected Not detected 10/08/2024 10:12 AM EDT [facility] PARAINFLUENZA VIRUS 1 Not detected Not detected 10/08/2024 10:12 AM EDT [facility] PARAINFLUENZA VIRUS 2 Not detected Not detected 10/08/2024 10:12 AM EDT [facility] PARAINFLUENZA VIRUS 3 Not detected Not detected 10/08/2024 10:12 AM EDT [facility] PARAINFLUENZA VIRUS 4 Not detected Not detected 10/08/2024 10:12 AM EDT [facility] RESPIRATORY SYNCYTIAL VIRUS Not detected Not detected 10/08/2024 10:12 AM EDT [facility] BORDETELLA PARAPERTUSSIS Not detected Not detected 10/08/2024 10:12 AM EDT [facility] BORDETELLA PERTUSSIS Not detected Not detected 10/08/2024 10:12 AM EDT [facility] CHLAMYDIA PNEUMONIAE Not detected Not detected 10/08/2024 10:12 AM EDT [facility] MYCOPLASMA PNEUMONIAE Not detected Not detected 10/08/2024 10:12 AM EDT [facility] Nasopharyngeal NASOPHARYNGEAL SWAB / Unknown 10/08/2024 9:03 AM EDT 10/08/2024 9:03 AM EDT [facility] - 10/08/2024 10:12 AM EDT Testing was performed with RT-PCR methodology using the [employer] Respiratory Panel 2.1 which has FDA De [...] decisions. This sample was tested at the [facility] using the [employer] FilmArray Respiratory Panel. It is FDA cleared and has been verified and approved by the [facility] for clinical use on nasopharyngeal swab specimens. The performance of the FilmArray RP has not been established in individuals who received influenza vaccine. Recent administration of a nasal influenza vaccine may cause false positive results for Influenza A and/or Influenza B. Radha Gunn MD MICROBIOLOGY - GENERAL ORDER NEERAJ Final Result Performing Organization Address City/[facility]/ZIP Co de Phone Number [facility] [address] [phone] * Lactic Acid with reflex (SJ) (10/07/2024 12:44 PM EDT) Only the most recent of2 resultswithin the time period is included. Lactic Acid Level (mmol/L) 1.3 0.5 - 2.2 mmol/L 10/07/2024 1:38 PM EDT [facility] Blood Venipuncture / Unknown 10/07/2024 12:44 PM EDT 10/07/2024 1:13 PM EDT Tish Leiva APRN LAB BLOOD ORDERABLES Final Re sult Performing Organization Address [facility]/ZIP Co de Phone Number [facility] [address] [phone] * (ABNORMAL) Vitamin D, 25-Hydroxy (10/07/2024 12:44 PM EDT) Vitamin D 25-Hydroxy 139.2(H) 30 - 80 ng/mL 10/07/2024 1:58 PM EDT [facility] Blood Venipuncture / Unknown 10/07/2024 12:44 PM EDT 10/07/2024 1:11 PM EDT us Gregory Gallo MD LAB BLOOD ORDERABLES Final Re sult [facility] [address] [phone] * (ABNORMAL) Basic Metabolic Panel (10/07/2024 12:44 PM EDT) Only the most recent of2 resultswithin the time period is included. Glucose 116(H) 82 - 115 mg/dL 10/07/2024 1:58 PM EDT [facility] BUN 51.3(H) 9.8 - 20.1 mg/dL 10/07/2024 1:58 PM EDT [facility] Creatinine 1.68(H) 0.57 - 1.11 mg/dL 10/07/2024 1:58 PM EDT [facility] BUN/Creatinine 31(H) 8 - 20 10/07/2024 1:58 PM EDT [facility] eGFR (mL/min/1.73m2) 33(L) >=60 mL/min/1.7 3m2 10/07/2024 1:58 PM EDT [facility] Sodium 133(L) 136 - 145 meq/L 10/07/2024 1:58 PM EDT [facility] Potassium 4.2 3.4 - 5.1 meq/L 10/07/2024 1:58 PM EDT [facility] Chloride 97(L) 98 - 112 meq/L 10/07/2024 1:58 PM EDT [facility] CO2 25 22 - 29 meq/L 10/07/2024 1:58 PM EDT [facility] Anion Gap 15(H) 4 - 12 10/07/2024 1:58 PM EDT [facility] Calcium 12.6(H) 8.4 - 10.2 mg/dL 10/07/2024 1:58 PM EDT [facility] Osmolality Calc 281.1 mOsm/kg 1:58 PM EDT [facility] Blood Venipuncture / Unknown 10/07/2024 12:44 PM EDT 10/07/2024 1:11 PM EDT us Tish Leiva [employer] LAB BLOOD ORDERABLES Final Re sult [facility] [address] [phone] * (ABNORMAL) Blood gas, arterial (10/07/2024 12:06 PM EDT) Only the most recent of2 resultswithin the time period is included. pH, Arterial 7.41 7.35 - 7.45 10/07/2024 12:12 PM EDT [facility] pCO2, Arterial 49(H) 35 - 45 mm Hg 10/07/2024 12:12 PM EDT [facility] pO2, Arterial 79(L) 80 - 100 mm Hg 10/07/2024 12:12 PM EDT [facility] HCO3, Arterial 31(H) 20 - 26 mmol/L 10/07/2024 12:12 PM EDT [facility] Base Excess, Arterial 5.4(H) -2.0 - 2.0 mmol/L 10/07/2024 12:12 PM EDT [facility] O2 Sat, Arterial 96.5 95.0 - 100.0 % 10/07/2024 12:12 PM EDT [facility] CTO2 ARTERIAL 15.3 mmol/L 10/07/2024 12:12 PM EDT [facility] THB ARTERIAL 11.5(L) 12.0 - 18.0 g/dL 10/07/2024 12:12 PM EDT [facility] COLLECTION SITE Left Radial 10/07/2024 12:12 PM EDT [facility] Arterial Puncture Yes 10/07/2024 12:12 PM EDT [facility] Blood Gas O2 Delivery Device Cannula 10/07/2024 12:12 PM EDT [facility] Oxygen Flow Rate 3 10/07/2024 12:12 PM EDT [facility] Blood Gas PT Temperature C 37.0 10/07/2024 12:12 PM EDT [facility] Mikey's Test Acceptable 10/07/2024 12:12 PM EDT [facility] ABG Number of Draw Attempts 2 10/07/2024 12:12 PM EDT [facility] FIO2 10/07/2024 12:12 PM EDT [facility] Blood Gas Temperature Corrected Results No No 10/07/2024 12:12 PM EDT [facility] Blood, Arterial 10/07/2024 1 2:06 PM EDT 10/07/2024 12:12 PM EDT us Tish Leiva APRN LAB BLOOD ORDERABLES Final Re sult [facility] [address] [phone] * (ABNORMAL) Urinalysis, Reflex Microscopic and Culture If Indicated (10/07/2024 4:39 AM EDT) Color, UA Colorless 10/07/2024 4:59 AM EDT [facility] Clarity, UA Clear Clear 10/07/2024 4:59 AM EDT [facility] Specific [place], UA 1.008 1.005 - 1.030 10/07/2024 4:59 AM EDT [facility] pH, UA 5.5(L) 6.0 - 8.0 10/07/2024 4:59 AM EDT [facility] Leukocytes, UA Negative Negative 10/07/2024 4:59 AM EDT [facility] Nitrite, UA Negative Negative 10/07/2024 4:59 AM EDT [facility] Protein, UA Negative Negative 10/07/2024 4:59 AM EDT [facility] Glucose, UA Normal Normal 10/07/2024 4:59 AM EDT [facility] Ketones, UA Negative Negative 10/07/2024 4:59 AM EDT [facility] Bilirubin, UA Negative Negative 10/07/2024 4:59 AM EDT [facility] Blood, UA Negative Negative 10/07/2024 4:59 AM EDT [facility] Urobilinogen, UA Normal Normal 10/07/2024 4:59 AM EDT [facility] Specimen Source Urine, Clean Catch 10/07/2024 4:59 AM EDT [facility] Urine URINE SPECIMEN COLLECTION, CLEAN CATCH / Unknown 10/07/2024 4:39 AM EDT 10/07/2024 4:46 AM EDT us Malini Lux PA-C URINE ORDERABLES Final Resu lt Performing Organization Address City/[facility]/ZIP Co de Phone Number [facility] [address] [phone] * (ABNORMAL) Protein, random urine (10/07/2024 4:39 AM EDT) Protein, Urine 27(H) 1 - 14 mg/dL 10/07/2024 12:50 PM EDT [facility] Comment:No normal reference range established Urine 10/07/2024 4:39 AM EDT 10/07/2024 12:25 PM EDT us Gregory Gallo MD URINE ORDERABLES Final Result Performing Organization Address [facility]/ZIP Co de Phone Number [facility] [address] [phone] * (ABNORMAL) CBC with automated diff (10/07/2024 3:30 AM EDT) Only the most recent of2 resultswithin the time period is included. WBC 10.7(H) 4.0 - 10.0 K/ L 10/07/2024 4:34 AM EDT [facility] RBC 3.99 3.93 - 5.22 M/ L 10/07/2024 4:34 AM EDT [facility] Hemoglobin 11.8 11.2 - 15.7 GM/DL 10/07/2024 4:34 AM EDT [facility] Hematocrit 36.7 34.1 - 44.9 % 10/07/2024 4:34 AM EDT [facility] MCV 92 79 - 95 fL 10/07/2024 4:34 AM EDT [facility] MCH 29.6 25.6 - 32.2 pg 10/07/2024 4:34 AM EDT [facility] MCHC 32.2 32.2 - 35.5 GM/DL 10/07/2024 4:34 AM EDT [facility] RDW 13.1 11.7 - 14.4 % 10/07/2024 4:34 AM EDT [facility] Platelets 248 140 - 375 K/CU MM 10/07/2024 4:34 AM EDT [facility] MPV 9.8 9.4 - 12.3 fL 10/07/2024 4:34 AM EDT [facility] % Neutros 91(H) 34 - 71 % 10/07/2024 4:34 AM EDT [facility] % Lymphs 7(L) 19 - 52 % 10/07/2024 4:34 AM EDT [facility] % Monos 1(L) 5 - 13 % 10/07/2024 4:34 AM EDT [facility] % Eos 0(L) 1 - 6 % 10/07/2024 4:34 AM EDT [facility] % Baso 0 0 - 1 % 10/07/2024 4:34 AM EDT [facility] NRBC Absolute <0.01 0 - 0.012 K/ul 10/07/2024 4:34 AM EDT [facility] # Neutros 9.75(H) 1.56 - 6.13 K/ L 10/07/2024 4:34 AM EDT [facility] # Lymphs 0.78(L) 1.18 - 3.74 K/ L 10/07/2024 4:34 AM EDT [facility] # Monos 0.06(L) 0.24 - 0.86 K/ L 10/07/2024 4:34 AM EDT [facility] # Eos <0.03(L) 0.04 - 0.36 K/ L 10/07/2024 4:34 AM EDT [facility] # Baso <0.03 0.01 - 0.08 K/ L 10/07/2024 4:34 AM EDT [facility] Immature Granulocytes-Re lative 0.70(H) 0.01 - 0.43 % 10/07/2024 4:34 AM EDT [facility] # IG 0.07(H) 0.00 - 0.03 K/uL 10/07/2024 4:34 AM EDT [facility] Blood Venipuncture / Unknown 10/07/2024 3:30 AM EDT 10/07/2024 3:42 AM EDT Narrative [facility] - 10/07/2024 4:34 AM EDT When [...] MD LAB BLOOD ORDERABLES Final Resu lt [facility] [address] [phone] * Procalcitonin (10/07/2024 3:30 AM EDT) Procalcitonin 0.09 See Comment ng/mL 10/07/2024 4:27 AM EDT [facility] Comment: Sepsis comment <0.5 Antibiotics Discouraged [...] ORDERABLES Final R esult Performing Organization Address [facility] Co de Phone Number [facility] [address] [phone] * (ABNORMAL) PROBNP (10/07/2024 3:30 AM EDT) Only the most recent of2 resultswithin the time period is included. ProBNP (pg/mL) 2,073(H) 0 - 125 pg/mL 10/07/2024 4:46 AM EDT [facility] Blood Venipuncture / Unknown 10/07/2024 3:30 AM EDT 10/07/2024 3:42 AM EDT Marisa Salcido MD LAB BLOOD ORDERABLES Final Resu lt Performing Organization Address [facility] Co de Phone Number [facility] [address] [phone] * Prealbumin (10/07/2024 3:30 AM EDT) Prealbumin 24 14 - 37 mg/dL 10/07/2024 4:27 AM EDT [facility] Blood Venipuncture / Unknown 10/07/2024 3:30 AM EDT 10/07/2024 3:42 AM EDT Marisa Salcido MD LAB BLOOD ORDERABLES Final Resu lt Performing Organization Address [facility] Co de Phone Number [facility] [address] [phone] * (ABNORMAL) CALCIUM Ionized (10/07/2024 1:03 AM EDT) Calcium Ionized 1.78(H) 1.12 - 1.32 mmol/L 10/07/2024 1:36 AM EDT [facility] Blood Venipuncture / Unknown 10/07/2024 1:03 AM EDT 10/07/2024 1:28 AM EDT us Maria Luisa Tabares APRN LAB BLOOD ORDERABLES Final R esult Performing Organization Address [facility] Co ri Phone Number [facility] [address] [phone] * PTH, intact (10/07/2024 1:03 AM EDT) PTH 27.6 8.7 - 77.1 pg/mL 10/07/2024 2:32 AM EDT [facility] Comment:This is an appended report. These results have been appended to a previously final verified report. PTH Type (pg/mL) Non-IntraO p pg/mL 10/07/2024 2:32 AM EDT [facility] Blood Venipuncture / Unknown 10/07/2024 1:03 AM EDT 10/07/2024 1:28 AM EDT us Maria Luisa Tabares APRN LAB BLOOD ORDERABLES Edited Result - Final Performing Organization Address [facility] Phone Number [facility] [address] [phone] * Ammonia (10/07/2024 1:03 AM EDT) Ammonia 33 18 - 72 mol/L 10/07/2024 1:49 AM EDT [facility] Comment:Specimen slightly he molyzed Blood Venipuncture / Unknown 10/07/2024 1:03 AM EDT 10/07/2024 1:27 AM EDT us Maria Luisa Tabares APRN LAB BLOOD ORDERABLES Final R esult Performing Organization Address [facility] Co ri Phone Number [facility] [address] [phone] * XR foot 3 views left (10/07/2024 [...] PA-C. Malini Lux PA-C IMG DIAGNOSTIC IMAGING ORDE [facility] Final Result * CT brain without IV [...] by Vicky Salamanca M.D. Malini Lux PA-C IM CT ORDERABLES Final Res ult * COVID19 SARS-COV/COV-2 INFLUENZA A/B AG (10/06/2024 8:00 PM EDT) SARS-COV/COV 2 ANTIGEN Negative Negative, Invalid 10/06/2024 9:10 PM EDT [facility] INFLUENZA AAG Negative Negative, Invalid 10/06/2024 9:10 PM EDT [facility] INFLUENZA BAG Negative Negative, Invalid 10/06/2024 9:10 PM EDT [facility] Nasal Swab (Nasal) 10/06/2024 8:00 PM EDT 10/06/2024 8:14 PM EDT Narrative [facility] - 10/06/2024 9:10 PM EDT The [employer] Video System for Rapid Detection of SARS-CoV-2 & [...] MICROBIOLOGY - GENERAL RAFAT [place] Final Result [facility] [address] [phone] * (ABNORMAL) High Sensitivity Troponin I (10/06/2024 7:59 PM EDT) Troponin I High Sensitivity (pg/mL) 18.4(H) <=14 pg/mL 10/06/2024 8:51 PM EDT [facility] Blood Venipuncture / Unknown 10/06/2024 7:59 PM EDT 10/06/2024 8:14 PM EDT Narrative [facility] - 10/06/2024 8:51 PM EDT Applicable to [facility] only. Effective October 06 the lab will begin using a new chemistry analyzer. HsTroponin methodology, reference ranges and critical values have changed. us Malini Lux PA-C LAB BLOOD ORDERABLES Final Result Performing Organization Address City/[facility]/ZIP Co de Phone Number [facility] [address] [phone] * Blood Culture (10/06/2024 7:59 PM EDT) Only the most recent of2 resultswithin the time period is included. [facility] Result No growth in 5 days 10/11/2024 10:01 PM EDT [facility] Blood Venipuncture / Unknown 10/06/2024 7:59 PM EDT 10/06/2024 8:14 PM EDT Narrative [facility] - 10/11/2024 10:01 PM EDT Blood volume is not within specification. May compromise patient blood culture results. us Malini Lux PA-C MICROBIOLOGY - GENERAL ORDE RABLES Final Result Performing Organization Address [facility] Co de Phone Number [facility] [address] [phone] * Hepatic function panel (10/06/2024 7:59 PM EDT) Protein, Total 7.5 6.4 - 8.3 g/dL 10/06/2024 8:51 PM EDT [facility] Albumin 3.8 3.5 - 5.0 g/dL 10/06/2024 8:51 PM EDT [facility] Total Bilirubin 0.6 0.2 - 1.2 mg/dL 10/06/2024 8:51 PM EDT [facility] Bilirubin, Direct 0.2 0.0 - 0.5 mg/dL 10/06/2024 8:51 PM EDT [facility] Alkaline Phosphatase 59 40 - 150 U/L 10/06/2024 8:51 PM EDT [facility] Globulin 3.7 2.5 - 4.1 g/dL 10/06/2024 8:51 PM EDT [facility] A/G Ratio 1.0 0.7 - 1.9 10/06/2024 8:51 PM EDT [facility] AST 26 11 - 34 U/L 10/06/2024 8:51 PM EDT [facility] Comment: AST2 reagent used for testing does not contain P5P supplementation and therefore may miss AST elevations in patients with B6 deficiency. This population may be as high as 10% in the [place], with risk factors including malabsorption, drug interactions, and alcoholic hepatitis. ALT <7 <=34 U/L 10/06/2024 8:51 PM EDT [facility] Comment: ALT2 reagent used for testing [...] BLOOD ORDERABLES Final Result Performing Organization Address [facility]/State/[facility] Co de Phone Number [facility] [address] [phone] * XR chest 1 view portable / [...] Malini Lux PA-C IMG DIAGNOSTIC IMAGING [facility] Final Result * ECG 12 lead (10/06/2024 7:45 PM EDT) VENTRICULAR RATE EKG/MIN 111 BPM GE MUSE ATRIAL RATE (MCT) 111 BPM GE MUSE LA Interval 129 ms GE MUSE QRS-INTERVAL (MSEC) 92 ms GE MUSE QT Interval 321 ms GE MUSE QTC Interval 436 ms GE MUSE P [place] 74 degrees GE MUSE R AXIS (MCT) -78 degrees GE MUSE T [place] 82 degrees GE MUSE [place] Diagnosis Sinus tachycardia with occasional premature atrial [...] Advance Directives For more information, please contact: [phone] * Full Code (Latest Code Status on File) Date Activated Date Inactivated Comments 10/06/2024 8:39 PM 10/09/2024 6:04 PM Care Teams [employer] Work[employer] Relationship Specialty Start Date End Date Rajat Navarro MD [address] [place] [id number] PCP - General Family Medicine 07/09/24
--- OUTSIDE RECORDS SUMMARY | 2025-01-04 17:43 | XMS_ITS | Referral Summary ---
Author Organization [facility] Address [address] [place] [address] Care Team Providers Care Multi Operation Machine Operator Name Role Phone Rajat Navarro MD Primary Care Provider [phone] Encounters Date Type Department Care Team Description 10/06/2024 7:30 PM EDT - 10/09/2024 5:03 PM EDT Hospital Encounter [place] [address] [address] [place] [address] Madelaine Lawson MD Zohary, MD [...] the past 12 months, has t he [employer], gas, oil, or water company threatened to [...] Do you speak a language other than [place] at [facility]? No 10/07/2024 Do you want help with [...] time period is included. Pathologist [facility] CRP 2.4 0.0 - 5.0 mg/L 10/09/2024 11:28 AM EDT [facility] Blood Venipuncture / Unknown 10/09/2024 10:02 AM EDT 10/09/2024 10:56 AM EDT Radha Gunn MD LAB BLOOD ORDERABLES Final R esult Performing Organization Address City/State/[facility] Co de Phone Number [facility] [address] [place] [address] * (ABNORMAL) Comprehensive metabolic panel (10/09/2024 10:02 AM EDT) Only the most recent of2 resultswithin the time period is included. [facility] Glucose 144(H) 82 - 115 mg/dL 10/09/2024 11:33 AM EDT [facility] BUN 30.3(H) 9.8 - 20.1 mg/dL 10/09/2024 11:33 AM EDT [facility] Creatinine 0.85 0.57 - 1.11 mg/dL 10/09/2024 11:33 AM EDT [facility] eGFR (mL/min/1.73m2) 74 >=60 mL/min/1. 73m2 10/09/2024 11:33 AM EDT [facility] BUN/Creatinine 36(H) 8 - 20 10/09/2024 11:33 AM EDT [facility] Sodium 133(L) 136 - 145 meq/L 10/09/2024 11:33 AM EDT [facility] Potassium 3.0(L) 3.4 - 5.1 meq/L 10/09/2024 11:33 AM [facility] Chloride 96(L) 98 - 112 meq/L 10/09/2024 11:33 AM [facility] CO2 26 22 - 29 meq/L 10/09/2024 11:33 AM [facility] Anion Gap 14(H) 4 - 12 10/09/2024 11:33 AM [facility] Calcium 9.7 8.4 - 10.2 mg/dL 10/09/2024 11:33 AM [facility] AST 23 11 - 34 U/L 10/09/2024 11:33 AM [facility] Comment: AST2 reagent used for testing does not contain P5P supplementation and therefore may miss AST elevations in patients with B6 deficiency. This population may be as high as 10% in the [place], with risk factors including malabsorption, drug interactions, and alcoholic hepatitis. Alkaline Phosphatase 52 40 - 150 U/L 10/09/2024 11:33 AM [facility] ALT 12 <=34 U/L 10/09/2024 11:33 AM [facility] Comment: ALT2 reagent used for testing does not contain P5P supplementation and therefore may miss ALT elevations in patients with B6 deficiency. This population may be as high as 10% in the [place], with risk factors including malabsorption, drug interactions, and alcoholic hepatitis. Albumin 3.3(L) 3.5 - 5.0 g/dL 10/09/2024 11:33 AM [facility] Globulin 3.2 2.5 - 4.1 g/dL 10/09/2024 11:33 AM [facility] A/G Ratio 1.0 0.7 - 1.9 10/09/2024 11:33 AM [facility] Protein, Total 6.5 6.4 - 8.3 g/dL 10/09/2024 11:33 AM [facility] Total Bilirubin 0.2 0.2 - 1.2 mg/dL 10/09/2024 11:33 AM [facility] Osmolality Calc 275.2 mOsm/kg 11:33 AM [facility] Blood Venipuncture / Unknown 10/09/2024 10:02 AM EDT 10/09/2024 10:56 AM EDT Gregory Gallo MD LAB BLOOD ORDERABLES Final Re sult [facility] [address] [phone] * XR chest AP portable (10/08/2024 3:04 [...] Name JACLYN PICHARDO Age 69 Patient Number [id number] Gender Female Race Unknown Ethnicity Corporate ID [id number] Height Date of 1955 Weight Accession Number [id number] BSA Room Number 413 BMI Referring Physician JEAN CARLOS RANGEL Interpreting Physician EVERETTE STEWART MD Scrap Preparer Edda Pelaez Procedure Type of Study: Extremities Arteries: Lower Extremities Arterial Duplex, US LOWER EXTREMITY ARTERIES COMPLETE, Lower Arterial Plethysmography. Impressions Summary INDICATION: Peripheral vascular disease I73.9 ############################# RIGHT: Mild atherosclerotic plaque noted with multiphasic waveforms throughout. ASSURANCE OFFICER & DPA non compressible for MERCEDES. Toe brachial index 0.67 ; within the normal range. LEFT: ##There is a severe (>75%) stenosis of the external illiac artery.## Non significant, non-flow restricting plaque noted at deep femoral artery (profunda). Non significant, non-flow restricting plaque noted at mid superficial femoral artery Multiphasic waveforms of the ASSURANCE OFFICER & DPA . ASSURANCE OFFICER & DPA non compressible for MERCEDES. Toe [...] + + + + + + !Dist ASSURANCE OFFICER ! !93.56 !Multiphasic ! !82.79 !Multiphasic ! [...] arteries . Multiphasic waveforms noted in the ASSURANCE OFFICER and DPA. Left Findings Severe heterogenous hyperechoic irregular plaque in the external iliac artery . Diffuse heterogenous hyperechoic smooth plaque throughout the common femoral and superficial femoral artery . Mild heterogenous hyperechoic smooth plaque in the popliteal artery . Multiphasic waveforms in the ASSURANCE OFFICER and DPA. Signature Procedure Note Everette Stewart MD - 10/08/2024 Vascular Lower Extremities Arterial Duplex and Lower Arterial Plethysmography Procedure Demographics Patient Name JACLYN PICHARDO Age 69 Patient Number [id number] Gender Female Race Unknown Ethnicity Corporate ID [id number] Height Date of 1955 Weight Accession Number [id number] BSA Room Number 413 BMI Referring Physician JEAN CARLOS RANGEL Interpreting Physician EVERETTE STEWART MD Scrap Preparer Edda Pelaez Procedure Type of Study: Extremities Arteries: Lower Extremities Arterial Duplex, US LOWER EXTREMITY ARTERIES COMPLETE, Lower Arterial Plethysmography. Impressions Summary INDICATION: Peripheral vascular disease I73.9 ############################# RIGHT: Mild atherosclerotic plaque noted with multiphasic waveformsthroughout. ASSURANCE OFFICER & DPA non compressible for MERCEDES. Toe brachial index 0.67 ; within the normal range. LEFT: ##There is a severe (>75%) stenosis of the external illiac artery.## Non significant, non-flow restricting plaque noted at deep femoralartery (profunda). Non significant, non-flow restricting plaque noted at mid superficial femoral artery Multiphasic waveforms of the ASSURANCE OFFICER & DPA . ASSURANCE OFFICER & DPA non compressible for MERCEDES. Toe [...] ----- --------+ ++ +------- ----- + !Dist ASSURANCE OFFICER ! !93.56!Multiphasic ! !82.79!Multiphasic ! + ++ [...] visualized arteries. Multiphasic waveforms noted in the ASSURANCE OFFICER and DPA. Left Findings Severe heterogenous hyperechoic irregular plaque in the external iliac artery . Diffuse heterogenous hyperechoic smooth plaque throughout the commonfemoral and superficial femoral artery . Mild heterogenous hyperechoic smooth plaque in the popliteal artery . Multiphasic waveforms in the ASSURANCE OFFICER and DPA. Signature us Sara Medina PA-C IMG US ORDERABLES Final Resu lt * US BRACHIAL INDICES EXTREMITY WITH DIGITS (10/08/2024 11:00 AM EDT) Anatomical Region Laterality Modality Lower Extremity, Vascular Vascul ar Ultrasound 10/08/2024 10:4 9 AM EDT Narrative 10/08/2024 6:29 PM EDT Vascular Lower Arterial Plethysmography Procedure Demographics Patient Name JACLYN PICHARDO Age 69 Patient Number [id number] Gender Female Race Unknown Ethnicity Corporate ID [id number] Height Date of 1955 Weight Accession Number [id number] BSA Room Number 413 BMI Referring Physician JEAN CARLOS RANGEL Interpreting Physician EVERETTE STEWART MD Scrap Preparer Edda Pelaez Procedure Type of Study: Extremities Arteries: Lower Arterial Plethysmography, US ANKLE / BRACHIAL INDICES EXTREMITY COMPLETE. Impressions Summary INDICATION: [I73.9] Peripheral vascular disease, unspecified ############################# RIGHT: Multiphasic waveforms of the ASSURANCE OFFICER & DPA . Unable to compress ASSURANCE OFFICER and DPA (>220 mmHg). Toe Brachial index: 0.67 , within normal range. LEFT: Multiphasic waveforms of the ASSURANCE OFFICER & DPA . Unable to compress ASSURANCE OFFICER and DPA(>220 mmHg). Toe Brachial index: 0.48 [...] Right Findings Multiphasic waveforms noted in the ASSURANCE OFFICER and DPA. Left Findings Multiphasic waveforms in the ASSURANCE OFFICER and DPA. Signature Procedure Note Everette Stewart MD - 10/08/2024 Vascular Lower Arterial Plethysmography Procedure Demographics Patient Name JACLYN PICHARDO Age 69 Patient Number [id number] Gender Female Race Unknown Ethnicity Corporate ID [id number] Height Date of 1955 Weight Accession Number [id number] BSA Room Number 413 BMI Referring Physician JEAN CARLOS RANGEL Interpreting Physician EVERETTE STEWART MD Scrap Preparer Edda Pelaez Procedure Type of Study: Extremities Arteries: Lower Arterial Plethysmography, US ANKLE /BRACHIAL INDICES EXTREMITY COMPLETE. Impressions Summary INDICATION: [I73.9] Peripheral vascular disease, unspecified ############################# RIGHT: Multiphasic waveforms of the ASSURANCE OFFICER & DPA . Unable to compress ASSURANCE OFFICER and DPA (>220 mmHg). Toe Brachial index: 0.67 , within normal range. LEFT: Multiphasic waveforms of the ASSURANCE OFFICER & DPA . Unable to compress ASSURANCE OFFICER and DPA(>220 mmHg). Toe Brachial index: 0.48 [...] Right Findings Multiphasic waveforms noted in the ASSURANCE OFFICER and DPA. Left Findings Multiphasic waveforms in the ASSURANCE OFFICER and DPA. Signature us Sara Medina PA-C CV VASCULAR ORDERABLES Final Result * Respiratory Panel (10/08/2024 9:03 AM EDT) Only the most recent of2 resultswithin the time period is included. ADENOVIRUS Not detected Not detected 10/08/2024 10:12 AM EDT [facility] CORONAVIRUS 229E Not detected Not detected 10/08/2024 10:12 AM EDT [facility] CORONAVIRUS HKU1 Not detected Not detected 10/08/2024 10:12 AM EDT [facility] CORONAVIRUS NL63 Not detected Not detected 10/08/2024 10:12 AM EDT [facility] CORONAVIRUS OC43 Not detected Not detected 10/08/2024 10:12 AM EDT [facility] SARS-COV2/RT-PCR Not Detected Not Detected 10/08/2024 10:12 AM EDT [facility] HUMAN METAPNEUMOVIRUS Not detected Not detected 10/08/2024 10:12 AM EDT [facility] HUMAN RHINOVIRUS/ENTEROV IRUS Not detected Not detected 10/08/2024 10:12 AM EDT [facility] INFLUENZA A Not detected Not detected 10/08/2024 10:12 AM EDT [facility] INFLUENZA B Not detected Not detected 10/08/2024 10:12 AM EDT [facility] PARAINFLUENZA VIRUS 1 Not detected Not detected 10/08/2024 10:12 AM EDT [facility] PARAINFLUENZA VIRUS 2 Not detected Not detected 10/08/2024 10:12 AM EDT [facility] PARAINFLUENZA VIRUS 3 Not detected Not detected 10/08/2024 10:12 AM EDT [facility] PARAINFLUENZA VIRUS 4 Not detected Not detected 10/08/2024 10:12 AM EDT [facility] RESPIRATORY SYNCYTIAL VIRUS Not detected Not detected 10/08/2024 10:12 AM EDT [facility] BORDETELLA PARAPERTUSSIS Not detected Not detected 10/08/2024 10:12 AM EDT [facility] BORDETELLA PERTUSSIS Not detected Not detected 10/08/2024 10:12 AM EDT [facility] CHLAMYDIA PNEUMONIAE Not detected Not detected 10/08/2024 10:12 AM EDT [facility] MYCOPLASMA PNEUMONIAE Not detected Not detected 10/08/2024 10:12 AM EDT [facility] Nasopharyngeal NASOPHARYNGEAL SWAB / Unknown 10/08/2024 9:03 AM EDT 10/08/2024 9:03 AM EDT Narrative [facility] - 10/08/2024 10:12 AM EDT Testing was performed with RT-PCR methodology using the [employer] Respiratory Panel 2.1 which has FDA De [...] [facility] Molecular Diagnostics Laboratory using the [employer] Respiratory Panel. It is FDA cleared and [...] MICROBIOLOGY - GENERAL ORDER NEERAJ Final Result [facility] [address] [phone] * Lactic Acid with reflex (SJ) (10/07/2024 12:44 PM EDT) Only the most recent of2 resultswithin the time period is included. Lactic Acid Level (mmol/L) 1.3 0.5 - 2.2 mmol/L 10/07/2024 1:38 PM EDT [facility] Blood Venipuncture / Unknown 10/07/2024 12:44 PM EDT 10/07/2024 1:13 PM EDT Tish Leiva APRN LAB BLOOD ORDERABLES Final Re sult Performing Organization Address City/[facility]/ZIP Co de Phone Number [facility] [address] [phone] * (ABNORMAL) Vitamin D, 25-Hydroxy (10/07/2024 12:44 PM EDT) Vitamin D 25-Hydroxy 139.2(H) 30 - 80 ng/mL 10/07/2024 1:58 PM EDT [facility] Blood Venipuncture / Unknown 10/07/2024 12:44 PM EDT 10/07/2024 1:11 PM EDT Gregory Gallo MD LAB BLOOD ORDERABLES Final Re sult Performing Organization Address [facility] Co de Phone Number [facility] [address] [phone] * (ABNORMAL) Basic Metabolic Panel (10/07/2024 12:44 PM EDT) Only the most recent of2 resultswithin the time period is included. Glucose 116(H) 82 - 115 mg/dL 10/07/2024 1:58 PM EDT [facility] BUN 51.3(H) 9.8 - 20.1 mg/dL 10/07/2024 1:58 PM EDT [facility] Creatinine 1.68(H) 0.57 - 1.11 mg/dL 10/07/2024 1:58 PM EDT [facility] BUN/Creatinine 31(H) 8 - 20 10/07/2024 1:58 PM EDT [facility] eGFR (mL/min/1.73m2) 33(L) >=60 mL/min/1.7 3m2 10/07/2024 1:58 PM EDT [facility] Sodium 133(L) 136 - 145 meq/L 10/07/2024 1:58 PM EDT [facility] Potassium 4.2 3.4 - 5.1 meq/L 10/07/2024 1:58 PM EDT [facility] Chloride 97(L) 98 - 112 meq/L 10/07/2024 1:58 PM EDT [facility] CO2 25 22 - 29 meq/L 10/07/2024 1:58 PM EDT [facility] Anion Gap 15(H) 4 - 12 10/07/2024 1:58 PM EDT [facility] Calcium 12.6(H) 8.4 - 10.2 mg/dL 10/07/2024 1:58 PM EDT [facility] Osmolality Calc 281.1 mOsm/kg 1:58 PM EDT [facility] Blood Venipuncture / Unknown 10/07/2024 12:44 PM EDT 10/07/2024 1:11 PM EDT us Tish Leiva DIRECT SUPPORT PROFESSIONAL CAREGIVER LAB BLOOD ORDERABLES Final Re sult [facility] [address] [phone] * (ABNORMAL) Blood gas, arterial (10/07/2024 12:06 PM EDT) Only the most recent of2 resultswithin the time period is included. pH, Arterial 7.41 7.35 - 7.45 10/07/2024 12:12 PM EDT [facility] pCO2, Arterial 49(H) 35 - 45 mm Hg 10/07/2024 12:12 PM EDT [facility] pO2, Arterial 79(L) 80 - 100 mm Hg 10/07/2024 12:12 PM EDT [facility] HCO3, Arterial 31(H) 20 - 26 mmol/L 10/07/2024 12:12 PM EDT [facility] Base Excess, Arterial 5.4(H) -2.0 - 2.0 mmol/L 10/07/2024 12:12 PM EDT [facility] O2 Sat, Arterial 96.5 95.0 - 100.0 % 10/07/2024 12:12 PM EDT [facility] CTO2 ARTERIAL 15.3 mmol/L 10/07/2024 12:12 PM EDT [facility] THB ARTERIAL 11.5(L) 12.0 - 18.0 g/dL 10/07/2024 12:12 PM EDT [facility] COLLECTION SITE Left Radial 10/07/2024 12:12 PM EDT [facility] Arterial Puncture Yes 10/07/2024 12:12 PM EDT [facility] Blood Gas O2 Delivery Device Cannula 10/07/2024 12:12 PM EDT [facility] Oxygen Flow Rate 3 10/07/2024 12:12 PM EDT [facility] Blood Gas PT Temperature C 37.0 10/07/2024 12:12 PM EDT [facility] Mikey's Test Acceptable 10/07/2024 12:12 PM EDT [facility] ABG Number of Draw Attempts 2 10/07/2024 12:12 PM EDT [facility] FIO2 10/07/2024 12:12 PM EDT [facility] Blood Gas Temperature Corrected Results No No 10/07/2024 12:12 PM EDT [facility] Blood, Arterial 10/07/2024 1 2:06 PM EDT 10/07/2024 12:12 PM EDT us Tish Leiva APRN LAB BLOOD ORDERABLES Final Re sult [facility] 1 [place] [address], [facility] [phone] * (ABNORMAL) Urinalysis, Reflex Microscopic and Culture If Indicated (10/07/2024 4:39 AM EDT) Color, UA Colorless 10/07/2024 4:59 AM EDT [facility] Clarity, UA Clear Clear 10/07/2024 4:59 AM EDT [facility] Specific [place], UA 1.008 1.005 - 1.030 10/07/2024 4:59 AM EDT [facility] pH, UA 5.5(L) 6.0 - 8.0 10/07/2024 4:59 AM EDT [facility] Leukocytes, UA Negative Negative 10/07/2024 4:59 AM EDT [facility] Nitrite, UA Negative Negative 10/07/2024 4:59 AM EDT [facility] Protein, UA Negative Negative 10/07/2024 4:59 AM EDT [facility] Glucose, UA Normal Normal 10/07/2024 4:59 AM EDT [facility] Ketones, UA Negative Negative 10/07/2024 4:59 AM EDT [facility] Bilirubin, UA Negative Negative 10/07/2024 4:59 AM EDT [facility] Blood, UA Negative Negative 10/07/2024 4:59 AM EDT [facility] Urobilinogen, UA Normal Normal 10/07/2024 4:59 AM EDT [facility] Specimen Source Urine, Clean Catch 10/07/2024 4:59 AM EDT [facility] Urine URINE SPECIMEN COLLECTION, CLEAN CATCH / Unknown 10/07/2024 4:39 AM EDT 10/07/2024 4:46 AM EDT us Malini Lux PA-C URINE ORDERABLES Final Resu lt [facility] [address] [place] [address], [facility] [phone] * (ABNORMAL) Protein, random urine (10/07/2024 4:39 AM EDT) Protein, Urine 27(H) 1 - 14 mg/dL 10/07/2024 12:50 PM EDT [facility] Comment:No normal reference range established Urine 10/07/2024 4:39 AM EDT 10/07/2024 12:25 PM EDT Gregory Gallo MD URINE ORDERABLES Final Result [facility] [address] [phone] * (ABNORMAL) CBC with automated diff (10/07/2024 3:30 AM EDT) Only the most recent of2 resultswithin the time period is included. WBC 10.7(H) 4.0 - 10.0 K/ L 10/07/2024 4:34 AM EDT [facility] RBC 3.99 3.93 - 5.22 M/ L 10/07/2024 4:34 AM EDT [facility] Hemoglobin 11.8 11.2 - 15.7 GM/DL 10/07/2024 4:34 AM EDT [facility] Hematocrit 36.7 34.1 - 44.9 % 10/07/2024 4:34 AM EDT [facility] MCV 92 79 - 95 fL 10/07/2024 4:34 AM EDT [facility] MCH 29.6 25.6 - 32.2 pg 10/07/2024 4:34 AM EDT [facility] MCHC 32.2 32.2 - 35.5 GM/DL 10/07/2024 4:34 AM EDT [facility] RDW 13.1 11.7 - 14.4 % 10/07/2024 4:34 AM EDT [facility] Platelets 248 140 - 375 K/CU MM 10/07/2024 4:34 AM EDT [facility] MPV 9.8 9.4 - 12.3 fL 10/07/2024 4:34 AM EDT [facility] % Neutros 91(H) 34 - 71 % 10/07/2024 4:34 AM EDT [facility] % Lymphs 7(L) 19 - 52 % 10/07/2024 4:34 AM EDT [facility] % Monos 1(L) 5 - 13 % 10/07/2024 4:34 AM EDT [facility] % Eos 0(L) 1 - 6 % 10/07/2024 4:34 AM EDT [facility] % Baso 0 0 - 1 % 10/07/2024 4:34 AM EDT [facility] NRBC Absolute <0.01 0 - 0.012 K/ul 10/07/2024 4:34 AM EDT [facility] # Neutros 9.75(H) 1.56 - 6.13 K/ L 10/07/2024 4:34 AM EDT [facility] # Lymphs 0.78(L) 1.18 - 3.74 K/ L 10/07/2024 4:34 AM EDT [facility] # Monos 0.06(L) 0.24 - 0.86 K/ L 10/07/2024 4:34 AM EDT [facility] # Eos <0.03(L) 0.04 - 0.36 K/ L 10/07/2024 4:34 AM EDT [facility] # Baso <0.03 0.01 - 0.08 K/ L 10/07/2024 4:34 AM EDT [facility] Immature Granulocytes-Re lative 0.70(H) 0.01 - 0.43 % 10/07/2024 4:34 AM EDT [facility] # IG 0.07(H) 0.00 - 0.03 K/uL 10/07/2024 4:34 AM EDT [facility] Blood Venipuncture / Unknown 10/07/2024 3:30 AM EDT 10/07/2024 3:42 AM EDT Narrative [facility] - 10/07/2024 4:34 AM EDT [...] ORDERABLES Final Resu lt Performing Organization Address City/[facility] Co de Phone Number [facility] [address] [phone] * Procalcitonin (10/07/2024 3:30 AM EDT) Procalcitonin 0.09 See Comment ng/mL 10/07/2024 4:27 AM EDT [facility] Comment: Sepsis comment <0.5 Antibiotics [...] ORDERABLES Final R esult Performing Organization Address [facility] Co de Phone Number [facility] [address] [phone] * (ABNORMAL) PROBNP (10/07/2024 3:30 AM EDT) Only the most recent of2 resultswithin the time period is included. ProBNP (pg/mL) 2,073(H) 0 - 125 pg/mL 10/07/2024 4:46 AM EDT [facility] Blood Venipuncture / Unknown 10/07/2024 3:30 AM EDT 10/07/2024 3:42 AM EDT Marisa Salcido MD LAB BLOOD ORDERABLES Final Resu lt Performing Organization Address City/[facility]/ZIP Co de Phone Number [facility] [address] [phone] * Prealbumin (10/07/2024 3:30 AM EDT) Prealbumin 24 14 - 37 mg/dL 10/07/2024 4:27 AM EDT [facility] Blood Venipuncture / Unknown 10/07/2024 3:30 AM EDT 10/07/2024 3:42 AM EDT us Marisa Salcido MD LAB BLOOD ORDERABLES Final Resu lt Performing Organization Address [facility] Co de Phone Number [facility] [address] [phone] * (ABNORMAL) CALCIUM Ionized (10/07/2024 1:03 AM EDT) Calcium Ionized 1.78(H) 1.12 - 1.32 mmol/L 10/07/2024 1:36 AM EDT [facility] Blood Venipuncture / Unknown 10/07/2024 1:03 AM EDT 10/07/2024 1:28 AM EDT us Maria Luisa Tabares APRN LAB BLOOD ORDERABLES Final R esult Performing Organization Address [facility] Co de Phone Number [facility] [address] [phone] * PTH, intact (10/07/2024 1:03 AM EDT) PTH 27.6 8.7 - 77.1 pg/mL 10/07/2024 2:32 AM EDT [facility] Comment:This is an appended report. These results have been appended to a previously final verified report. PTH Type (pg/mL) Non-IntraO p pg/mL 10/07/2024 2:32 AM EDT [facility] Blood Venipuncture / Unknown 10/07/2024 1:03 AM EDT 10/07/2024 1:28 AM EDT Maria Luisa Tabares APRN LAB BLOOD ORDERABLES Edited Result - Final Performing Organization Address [facility] de Phone Number [facility] [address] [phone] * Ammonia (10/07/2024 1:03 AM EDT) Ammonia 33 18 - 72 mol/L 10/07/2024 1:49 AM EDT [facility] Comment:Specimen slightly he molyzed Blood Venipuncture / Unknown 10/07/2024 1:03 AM EDT 10/07/2024 1:27 AM EDT Maria Luisa Tabares DIRECT SUPPORT PROFESSIONAL CAREGIVER LAB BLOOD ORDERABLES Final R esult Performing Organization Address [facility] Phone Number [facility] [address] [phone] * XR foot 3 views left (10/07/2024 [...] Negative Negative, Invalid 10/06/2024 9:10 PM EDT [facility] INFLUENZA AAG Negative Negative, Invalid 10/06/2024 9:10 PM EDT [facility] INFLUENZA BAG Negative Negative, Invalid 10/06/2024 9:10 PM EDT [facility] Nasal Swab (Nasal) 10/06/2024 8:00 PM EDT 10/06/2024 8:14 PM EDT Narrative [facility] - 10/06/2024 9:10 PM EDT The XZERES Veritor System for Rapid Detection of SARS-CoV-2 [...] ORDE RABLES Final Result Performing Organization Address [facility] Co de Phone Number [facility] [address] [phone] * (ABNORMAL) High Sensitivity Troponin I (10/06/2024 7:59 PM EDT) [facility] Troponin I High Sensitivity (pg/mL) 18.4(H) <=14 pg/mL 10/06/2024 8:51 PM EDT [facility] Blood Venipuncture / Unknown 10/06/2024 7:59 PM EDT 10/06/2024 8:14 PM EDT [facility] - 10/06/2024 8:51 PM EDT Applicable to [facility] only. Effective October 06 the lab will begin using a new chemistry analyzer. HsTroponin methodology, reference ranges and critical values have changed. Malini Lux PA-C LAB BLOOD ORDERABLES Final Result Performing Organization Address [facility] de Phone Number [facility] [address] [phone] * Blood Culture (10/06/2024 7:59 PM EDT) Only the most recent of2 resultswithin the time period is included. [facility] Result No growth in 5 days 10/11/2024 10:01 PM EDT [facility] Blood Venipuncture / Unknown 10/06/2024 7:59 PM EDT 10/06/2024 8:14 PM EDT [facility] - 10/11/2024 10:01 PM EDT Blood volume is not within specification. May compromise patient blood culture results. us Malini Lux PA-C MICROBIOLOGY - GENERAL RAFAT [place] Final Result [facility] [address] [place] [id number], [facility] [phone] * Hepatic function panel (10/06/2024 7:59 PM EDT) Protein, Total 7.5 6.4 - 8.3 g/dL 10/06/2024 8:51 PM EDT [facility] Albumin 3.8 3.5 - 5.0 g/dL 10/06/2024 8:51 PM EDT [facility] Total Bilirubin 0.6 0.2 - 1.2 mg/dL 10/06/2024 8:51 PM EDT [facility] Bilirubin, Direct 0.2 0.0 - 0.5 mg/dL 10/06/2024 8:51 PM EDT [facility] Alkaline Phosphatase 59 40 - 150 U/L 10/06/2024 8:51 PM EDT [facility] Globulin 3.7 2.5 - 4.1 g/dL 10/06/2024 8:51 PM EDT [facility] A/G Ratio 1.0 0.7 - 1.9 10/06/2024 8:51 PM EDT [facility] AST 26 11 - 34 U/L 10/06/2024 8:51 PM EDT [facility] Comment: AST2 reagent used for testing does not contain P5P supplementation and therefore may miss AST elevations in patients with B6 deficiency. This population may be as high as 10% in the [place], with risk factors including malabsorption, drug interactions, and alcoholic hepatitis. ALT <7 <=34 U/L 10/06/2024 8:51 PM EDT [facility] Comment: ALT2 reagent used for [...] Lux PA-C LAB BLOOD ORDERABLES Final Result [facility] [address] [place] [address], [facility] [phone] * XR chest 1 view portable / [...] ATRIAL RATE (MCT) 111 BPM GE MUSE NE Interval 129 ms GE MUSE QRS-INTERVAL (MSEC) 92 ms GE MUSE QT Interval 321 ms GE MUSE QTC Interval 436 ms GE MUSE P [place] 74 degrees GE MUSE R AXIS (MCT) -78 degrees GE MUSE T Wave [place] 82 degrees GE MUSE [place] Diagnosis Sinus tachycardia with occasional premature atrial complexes Left axis deviation Septal infarct , age undetermined ST elevation, consider anterior injury or acute infarct Abnormal ECG When compared with ECG of 09-JUL-2024 15:33, Criteria for Septal infarct is now present ST elevation now present in Anterior leads Nonspecific T wave abnormality, improved in Lateral leads Confirmed by Walter Mckee ([id number]) on 10/06/2024 8:44:41 PM GE MUSE 10/06/2024 7:45 PM EDT 10/06/2024 8:44 PM EDT us Malini Lux PA-C ECG ORDERABLES Final Resul t GE MUSE * EKG-SCANNED (10/06/2024) Narrative 10/06/2024 Ordered by an unspecified provider. 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 [id number] PCP - General Family Medicine 07/09/24
--- NOTE | 2025-01-04 17:51 | CT_ITS ---
PROCEDURE INFORMATION: Exam: CTA Chest With Contrast Exam date and time: 01/04/2025 6:55 PM Age: 69 years old Clinical indication: Shortness of breath TECHNIQUE: Imaging protocol: Computed tomographic angiography of the chest with contrast. Exam focused on the arteries. 3D rendering (Not supervised by radiologist): MIP and/or 3D reconstructed images were created by the technologist. Radiation optimization: All CT scans at this facility use at least one of these dose optimization techniques: automated exposure control; mA and/or kV adjustment per patient size (includes targeted exams where dose is matched to clinical indication); or iterative reconstruction. Contrast material: ISOVUE; Contrast volume: 70 ml; Contrast route: INTRAVENOUS (IV); COMPARISON: CT ANGIO CHEST PE PROTOCOL 12/11/2024 4:26 PM FINDINGS: Pulmonary arteries: No CT angiography evidence of pulmonary embolism. Aorta: There is severe calcific atherosclerotic disease of the thoracic aorta without aneurysmal dilatation. Celiac trunk and mesenteric arteries: Moderate calcific atherosclerotic disease of the results in moderate stenosis of the SMA and renal arteries. Lungs: There are moderate centrilobular emphysematous changes of the lungs with an apical gradient. Enhancing left apical mass measuring 3.9 cm in diameter more suspicious appearance from prior exam. Right upper lobe enhancing mass measures 2.3 cm in diameter. Additional left lower lobe enhancing mass measures 4.2 cm in diameter. Multiple lung masses suspicious for malignancy. Pleural spaces: Unremarkable. No pneumothorax. No pleural effusion. Heart: Unremarkable. No cardiomegaly. No pericardial effusion. Coronary arteries: Severe three-vessel calcific atherosclerotic disease of the coronary arteries. Lymph nodes: Unremarkable. No enlarged lymph nodes. Kidneys: Multiple Bosniak 1 renal cystic lesions defined as homogeneous and fluid density (-9 to 20 HU), no septations or calcifications, having torrez smooth and thin. Largest cyst measures 3.0 cm. No follow-up recommended. Bones/joints: Postsurgical changes compatible with vertebroplasty of T11, T12, and L2. Soft tissues: Unremarkable. IMPRESSION: 1. Enhancing left apical mass measuring 3.9 cm in diameter more suspicious appearance from prior exam. Right upper lobe enhancing mass measures 2.3 cm in diameter. Additional left lower lobe enhancing mass measures 4.2 cm in diameter. Multiple lung masses suspicious for malignancy worse from prior exam. 2. No CT angiography evidence of pulmonary embolism. COMMENTS: Consistent with the [place]'s Incidental Findings Committee white paper (J Am Janice Radiol 2018): Any incidental renal lesion less than 1 cm or classified as too small to characterize, or any incidental cystic renal lesion characterized as simple-appearing, is likely benign. No follow-up imaging is recommended for these lesions per consensus recommendations based on imaging criteria.
--- NOTE | 2025-01-04 17:57 | HMH.EDGENADL ---
Discharge Plan Disposition Patient Disposition: Home, Self-Care Condition: Good Prescriptions Prescriptions: New furosemide [Lasix] 20 mg tablet 20 mg PO DAILY Qty: 7 0RF No Action furosemide 40 mg tablet 40 mg PO DAILY 30 Days Qty: 30 0RF alprazolam 1 mg tablet 1 mg PO BID montelukast 10 mg tablet 10 mg PO PM celecoxib 50 mg capsule 50 mg PO DAILY duloxetine 30 mg capsule,delayed release(DR/EC) 30 mg PO DAILY calcium carbonate-vitamin D3 600 mg-5 mcg (200 unit) tablet 1 tab PO BIDWMEAL gabapentin 800 mg tablet 800 mg PO TID cholecalciferol (vitamin D3) 1,250 mcg (50,000 unit) capsule 1,250 mcg PO WEEKLY albuterol sulfate 90 mcg/actuation HFA aerosol inhaler 2 inh INHALATION Q6H potassium chloride 20 mEq tablet,ER particles/crystals 20 meq PO BID Rx Instructions: with food magnesium gluconate 27 mg magnesium (500 mg) tablet 27 mg PO DAILY Patient Comments: TAKE ONE TABLET BY MOUTH ONCE A DAY Trulance 3 mg tablet 3 mg PO DAILY metoprolol succinate 100 mg Tablet Extended Release 24 Hr 100 mg PO HS 30 Days Qty: 30 0RF fluticasone propion-salmeterol [Advair Diskus] 500-50 mcg/dose Blister With Device 1 inh inhalation BIDRT 30 Days Qty: 60 0RF ipratropium-albuterol 0.5 mg-3 mg(2.5 mg base)/3 mL Solution For Nebulization 3 ml inhalation Q4HP PRN (Reason: Shortness Of Breath Or Wheezing) 30 Days Qty: 90 0RF Eliquis DVT-PE Treat 30D Start 5 mg (74 tabs) tablets,dose pack 5 mg PO BID Qty: 74 0RF digoxin 125 mcg (0.125 mg) tablet 125 mcg PO DAILY Qty: 30 0RF levofloxacin 750 mg tablet 750 mg PO DAILY 3 Days Qty: 2 0RF Rx Instructions: first dose 12/15/24 tiotropium bromide [Spiriva with HandiHaler] 18 mcg Capsule, W/Inhalation Device 1 cap inhalation DAILY Qty: 30 0RF fluticasone propion-salmeterol [Advair Diskus] 500-50 mcg/dose Blister With Device 1 inh inhalation BIDRT 30 Days Qty: 60 0RF prednisone 50 mg tablet 50 mg PO DAILY 5 Days Qty: 5 0RF levofloxacin 750 mg tablet 750 mg PO DAILY 5 Days Qty: 5 0RF Referrals Follow up/Referrals: Stephanie Espinoza APRN [Primary Care Provider, Medical] - See instructions Sathya Nayak MD [Staff Physician, Cardiology] - See instructions Activity Restrictions/Add. Instructions Additional Instructions/Restrictions: You were evaluated in the emergency department today. At this time, your workup appears stable except you have enlarging lung nodules that are concerning for developing cancer. You have an appointment tomorrow with Dr. Gan with pulmonology at 1040 in the morning. It is very important that you go to this appointment. For your leg swelling, I am going to increase your diuretic for 1 week. Please take this increased dose and make sure that you keep your feet up. Prop them up and keep them elevated to help reduce pain and swelling. I am also going to recommend wound care follow-up to help with your wounds from chronic swelling on your lower legs as well as with cardiology. We did fax an order for PT/OT wound care. Return to the emergency department for new or worsening symptoms. Clinical Impressions Clinical Impression: Bilateral lower extremity edema, Lung nodule Instructions Patient Instructions: DI for Dependent Edema, DI for Peripheral Edema -- Bilateral Print Language Print Language: Montenegrin Discharge ED Provider: Felicia Owen General Adult HPI <Stephanie Espinoza (ED)SEAN - Last Filed: 01/04/25 19:07> General Chief complaint: Extremity Problem,Nontraumatic Stated complaint: swelled feet, tingling fingers Time Seen by Provider: 01/04/25 17:41 Mode of Arrival: Wheelchair Source of Information: Patient Description of Symptoms (Recalled from ER Triage Doc. by RN): Patient states that she has been having lower extremity swelling for the last couple of days. Patient states that she was just discharged [place] [facility] [place] for rehab the last couple of weeks. Patient Spo2 on RA 74%. Patient states she has oxygen at home to wear as needed but she only wears it at night. Patient placed on oxygen at 2LNC. Spo2 92%. History of Present Illness HPI narrative: 69-year-old female presents to the ED today for complaint of bilateral lower extremity swelling since Saturday. This has gotten worse. She states that she was discharged from [facility] on Saturday. She has had shortness of breath as well. Her O2 on room air was 74% upon arrival here. She states that she wears oxygen at home and only wears it as needed. Patient complains of pain in bilateral lower extremities and weeping of her extremities. She denies fevers or chills. Patient is chronically ill. She has CHF and COPD. She typically does not wear her oxygen when needed. She has been on steroids while in [facility] and has some swelling in her face as well. She is weak today. Related Data Home Medications ?Medication ?Instructions ?Recorded ?Confirmed albuterol sulfate 90 mcg/actuation 2 inh inhalation Q6H 04/15/24 12/12/24 aerosol inhaler alprazolam 1 mg tablet 1 mg PO BID 04/15/24 12/12/24 calcium 600 mg (as 1 tab PO BIDWMEAL 04/15/24 12/12/24 carbonate)-vitamin D3 5 mcg (200 unit) tablet celecoxib 50 mg capsule 50 mg PO DAILY 04/15/24 12/12/24 cholecalciferol (vitamin D3) 1,250 1,250 mcg PO WEEKLY 04/15/24 12/12/24 mcg (50,000 unit) capsule duloxetine 30 mg capsule,delayed 30 mg PO DAILY 04/15/24 12/12/24 release gabapentin 800 mg tablet 800 mg PO TID 04/15/24 12/12/24 montelukast 10 mg tablet 10 mg PO PM 04/15/24 12/12/24 potassium chloride 20 mEq 20 meq PO BID 04/15/24 12/12/24 tablet,extended release(part/cryst) magnesium gluconate 27 mg 27 mg PO DAILY 11/29/24 12/12/24 magnesium (500 mg) tablet plecanatide 3 mg tablet (Trulance) 3 mg PO DAILY 11/29/24 12/12/24 Previous Rx's ?Medication ?Instructions ?Recorded furosemide 40 mg tablet 40 mg PO DAILY 30 days #30 tabs 08/16/24 apixaban 5 mg (74 tabs) tablets in 5 mg PO BID #74 tabs 12/01/24 a dose pack ([employer] DVT-PE Treat 30D Start) digoxin 125 mcg (0.125 mg) tablet 125 mcg PO DAILY #30 tabs 05/20/25 fluticasone 500 mcg-salmeterol 50 1 inh inhalation BIDRT 30 days #60 12/01/24 mcg/dose blistr powdr for ea inhalation (Advair Diskus) ipratropium 0.5 mg-albuterol 3 mg 3 ml inhalation Q4HP PRN Shortness 12/01/24 (2.5 mg base)/3 mL nebulization Of Breath Or Wheezing 30 days #90 soln mL metoprolol succinate 100 mg 100 mg PO HS 30 days #30 tabs 12/01/24 tablet,extended release 24 hr levofloxacin 750 mg tablet 750 mg PO DAILY 3 days #2 tabs 12/14/24 fluticasone 500 mcg-salmeterol 50 1 inh inhalation BIDRT 30 days #60 12/18/24 mcg/dose blistr powdr for ea inhalation (Advair Diskus) tiotropium bromide 18 mcg capsule 1 cap inhalation DAILY #30 blisters 12/18/24 with inhalation device (Spiriva with HandiHaler) levofloxacin 750 mg tablet 750 mg PO DAILY 5 days #5 tabs 12/23/24 prednisone 50 mg tablet 50 mg PO DAILY 5 days #5 tabs 12/23/24 furosemide 20 mg tablet (Lasix) 20 mg PO DAILY #7 tabs 01/04/25 Allergies Allergy/AdvReac Type Severity Reaction Status Date / Time No Known Allergies Allergy Verified 11/17/24 15:18 [facility] <Stephanie Espinoza (ED), HOME HEALTH CARE COORDINATOR - Last Filed: 01/04/25 19:07> [facility] Disclaimer: The information contained in this section may have been updated after the patient was seen, as this information can be updated by other users. Medical History Pneumonia Fecal occult blood test positive Sepsis without septic shock Lymphedema Physical deconditioning General weakness Lung mass Hypomagnesemia Acute hypokalemia Chronic hyponatremia Generalized weakness COPD mixed type Lung nodule Hypokalemia Elevated troponin COPD (chronic obstructive pulmonary disease) Nocturnal hypoxemia Pulmonary emphysema Incidental pulmonary nodule, greater than or equal to 8mm Smoking greater than 30 pack years Dyspnea on exertion Tobacco abuse disorder Tobacco abuse counseling COPD (chronic obstructive pulmonary disease) Cervical cancer Surgical History History of dilation and curettage History of back surgery Family History Diabetes Social History (Updated 12/18/24 @ 11:32 by Canelo Power CRNA) Smoking Status: Current every day smoker tobacco type: cigarettes packs per day: 2 second hand exposure: Yes alcohol intake: current alcohol intake frequency: 0-2 drinks per day substance use type: denies use current occupational status: unemployed Travel in the last 8 weeks?: None household members: spouse housing: house current occupational exposures/hazards: No Have you lived/traveled outside [place] in past 30 days?: No Contact w/someone who lives/traveled outside US past 30 days?: No Exposure to someone with infectious disease in past 14 days?: No Do you have a fever (greater than 100.4 F or 38 C)?: No Have you tested positive for COVID-19?: No Exposed to someone with COVID-19 in past 14 days?: No Do you have a sore throat?: No Do you have a cough?: No Do you have any weakness?: No Do you have any diarrhea?: No Are you experiencing any unusual bleeding?: No Do you have any muscle aches/pain?: No Do you have any abdominal pain?: No Are you experiencing loss of taste or smell?: No Other Medical History Have you received the Flu Vaccine for this season: No Have you received the Pneumonia Vaccine: No <Stephanie Espinoza (ED), HOME HEALTH CARE COORDINATOR - Last Filed: 01/04/25 19:07> ROS Obtained: Yes Systems reviewed as appropriate & no additional complaints except as documented Constitutional Constitutional: Reports as per HPI Physical Exam <Stephanie Espinoza (ED), HOME HEALTH CARE COORDINATOR - Last Filed: 01/04/25 19:07> General General appearance: alert and in distress (Short of breath) Head Head exam: atraumatic and normocephalic Eye Eye exam: Present PERRL and EOMI ENT ENT exam: Present normal oropharynx and mucous membranes moist Neck Neck exam: Present full ROM and trachea midline Chest Chest inspection: Present normal inspection Respiratory Respiratory exam: Present respiratory distress and wheezes Cardiovascular Cardiovascular exam: Present regular rate, normal rhythm, normal heart sounds, +S1 and +S2 Abdominal Exam Abdominal exam: Present soft and normal bowel sounds Extremities Exam Extremities exam: Present tenderness, normal capillary refill and edema (+3 to 4+ edema in bilateral lower extremities with weeping) Neurological Exam Neurological exam: Present alert and oriented X3 Psychiatric Psychiatric exam: Present normal mood Skin Skin exam: Present warm, intact and erythema Medical Decision Making <Stephanie Espinoza (ED), HOME HEALTH CARE COORDINATOR - Last Filed: 01/04/25 19:07> Medical Records Screening: Per USPSTF and CDC recommendations, given the prevalence of disease in our region, it is our hospital?s policy to screen for HIV and viral Hepatitis for all patients aged 18 and over and those with ongoing risk factors. Azael Inquiry Pt receiving controlled substance: No Azael was queried for this patient: No Vital Signs: 01/04/25 17:45 01/04/25 18:12 01/04/25 18:14 Temperature 98.1 F Temperature Source Oral Pulse Rate 91 H 91 H Pulse Rate [Right Radial] 109 H Respiratory Rate 17 22 19 Blood Pressure 103/55 L 103/55 L Blood Pressure [Right Arm] 115/55 L Blood Pressure Mean [Right Arm] 75 Blood Pressure Source Blood Pressure Source [Right Arm] Automatic Cuff Blood Pressure Position Blood Pressure Position [Right Arm] Supine 02 Sat by Pulse Oximetry 74 L 93 L 92 L Oxygen Delivery Method Room Air Room Air Oxygen Flow Rate (LPM) 01/04/25 18:30 01/04/25 19:01 01/04/25 19:30 Temperature Temperature Source Pulse Rate 93 H 103 H 86 Pulse Rate [Right Radial] Respiratory Rate 13 21 14 Blood Pressure 115/59 L 104/41 L 103/47 L Blood Pressure [Right Arm] Blood Pressure Mean [Right Arm] Blood Pressure Source Blood Pressure Source [Right Arm] Blood Pressure Position Blood Pressure Position [Right Arm] 02 Sat by Pulse Oximetry 93 L 84 L 93 L Oxygen Delivery Method Room Air Oxygen Flow Rate (LPM) 01/04/25 20:00 01/04/25 20:15 01/04/25 21:58 Temperature 98.1 F Temperature Source Oral Pulse Rate 90 86 88 Pulse Rate [Right Radial] Respiratory Rate 16 18 16 Blood Pressure 117/58 L 121/81 Blood Pressure [Right Arm] Blood Pressure Mean [Right Arm] Blood Pressure Source Automatic Cuff Blood Pressure Source [Right Arm] Blood Pressure Position Supine Blood Pressure Position [Right Arm] 02 Sat by Pulse Oximetry 90 L 90 L Oxygen Delivery Method Nasal Cannula Oxygen Flow Rate (LPM) 2 Lab Data Lab Results 01/04/25 17:52: VBG pH 7.39, VBG pCO2 64.1 H, VBG pO2 33.6, VBG HCO3 37.7 H, VBG Total CO2 39.6 H, VBG O2 Saturation 65.3, VBG Base Excess 12.7 H, VBG Lactic Acid 2.5 H 01/04/25 18:07: WBC 16.2 H, RBC 3.63 L, Hgb 10.6 L, Hct 34.3 L, MCV 94.5, MCH 29.2, MCHC 30.9 L, RDW 15.9, Plt Count 239, MPV 9.1, Neut % (Auto) 76.9, Lymph % (Auto) 15.5, Bond % (Auto) 5.1, Eos % (Auto) 0.8, Baso % (Auto) 0.2, Neut # (Auto) 12.4 H, Lymph # (Auto) 2.5, Bond # (Auto) 0.8, Eos # (Auto) 0.1, Baso # (Auto) 0.0, Sodium 132 L, Potassium 3.9, Chloride 83 L, Carbon Dioxide 44 H*, Anion Gap 8.9, BUN 30 H, Creatinine 0.90, Estimated Creat Clear 49, Estimated GFR 62, Est GFR ( Amer) 75, Glucose 111 H, Lactate 2.6 H, Calcium 8.9, Magnesium 2.0, Total Bilirubin 0.3, AST 24, ALT 14, Alkaline Phosphatase 55, Troponin I 0.04 H, NT-Pro-B Natriuret Pep 1440 H, Total Protein 5.9 L, Albumin 3.3 L, Globulin 2.6, Albumin/Globulin Ratio 1.3, Lipase 51 01/04/25 20:53: Troponin I 0.04 H 01/04/25 18:07 01/04/25 18:07 Orders (Tests/Meds): ED MEDICATIONS Generic Name Dose Route Start Last Admin Trade Name Freq PRN Reason Stop Dose Admin Ceftriaxone Sodium 2 gm/ 100 mls @ 200 mls/hr 01/04/25 18:00 01/04/25 19:36 Sodium Chloride IV 01/14/25 17:59 200 mls/hr Q24H VICENTE Administration Discontinued Medications Generic Name Dose Route Start Last Admin Trade Name Freq PRN Reason Stop Dose Admin Albuterol/Ipratropium 3 ml 01/04/25 18:00 01/04/25 18:22 Ipratropium/Albuterol 3 Ml Neb IH 01/04/25 18:01 3 ml ONCE ONE Administration Dexamethasone Sodium Phosphate 10 mg 01/04/25 17:50 01/04/25 18:21 Dexamethasone 4mg/Ml 1ml Vial IV 01/04/25 17:51 10 mg ONCE ONE Administration Furosemide 80 mg 01/04/25 18:04 01/04/25 18:21 Furosemide 100mg/10ml Vial IV 01/04/25 18:05 80 mg ONCE ONE Administration Magnesium Sulfate 2 gm in 50 mls @ 50 mls/hr 01/04/25 17:50 01/04/25 18:22 Magnesium Sulfate 2gm/50ml Premix IV 01/04/25 18:49 50 mls/hr ONCE ONE Administration Iopamidol 70 ml 01/04/25 18:55 01/04/25 18:56 Iopamidol-370 (76%);100ml Bottle IV 01/04/25 18:56 70 ml ONCE ONE Administration Sodium Chloride 10 ml 01/04/25 18:55 01/04/25 18:56 Sodium Chloride 0.9% 10ml Syr (Rad Only) IV 01/04/25 18:56 10 ml ONCE ONE Administration Sodium Chloride 50 ml 01/04/25 18:55 01/04/25 18:56 0.9 % Sodium Chloride 50 Ml Vial IV 01/04/25 18:56 50 ml ONCE ONE Administration ORDERS Category Date Time Status CTA Chest [CT angio chest PE protocol] Stat Cat Scan 01/04/25 17:51 Completed BNP [NT Pro Brain Natriuretic Pep.] Stat Lab 01/04/25 18:07 Completed CBC [Complete Blood Count Auto Diff] Stat Lab 01/04/25 18:07 Completed Comprehensive Metabolic Panel Stat Lab 01/04/25 18:07 Completed Lactic Acid Stat Lab 01/04/25 18:07 Completed Lipase Stat Lab 01/04/25 18:07 Completed Magnesium Stat Lab 01/04/25 18:07 Completed Trop I [Troponin I] Stat Lab 01/04/25 18:07 Completed Troponin I Q3H Lab 01/04/25 20:53 Completed Troponin I Q3H Lab 01/05/25 00:00 Ordered UA [Urinalysis and Microscopic] Stat Lab 01/04/25 19:09 Ordered Blood Culture Stat Micro 01/04/25 19:06 Ordered Venous Blood Gas Stat RT 01/04/25 17:52 Completed HEART Score History (anamnesis): Highly suspicious ECG: Non-specific disturbance Age: >65 years Risk factors: 3 or more risk factors Troponin: </= normal limit HEART Score: 7 Medical Decision Narrative: patient is a 69-year-old female presenting to the emergency department for evaluation of bilateral lower extremity edema and weeping, shortness of breath. Patient has long history of CHF and COPD. She recently got out of [facility] where she was there for 2 weeks for rehab. She was discharged on Saturday. Patient is afebrile however she has 74% on room air but increases to 84% on 3 L. Differential diagnosis includes CHF exacerbation, COPD exacerbation, sepsis, respiratory acidosis, among others. Workup will be conducted with hematologic labs, specific imaging. Initial inventions include no crystalloid bolus as this is a CHF patient and she is already in fluid overload. Her lactic is 2.5 however I will not give her fluids as I am afraid to give her too much. Patient's O2 has increased to 93% on 3 L. Patient's initial pH was 7.3 and CO2 was 64 which were both critical and given to me. White count was 16.2. I have already given 2 g of Rocephin, 10 mg of IV Dex, 80 mg of IV Lasix. I did discuss case with Dr. Owen. <Felicia Owen, DO - Last Filed: 01/04/25 22:11> Vital Signs: 01/04/25 17:45 01/04/25 18:12 01/04/25 18:14 Temperature 98.1 F Temperature Source Oral Pulse Rate 91 H 91 H Pulse Rate [Right Radial] 109 H Respiratory Rate 17 22 19 Blood Pressure 103/55 L 103/55 L Blood Pressure [Right Arm] 115/55 L Blood Pressure Mean [Right Arm] 75 Blood Pressure Source Blood Pressure Source [Right Arm] Automatic Cuff Blood Pressure Position Blood Pressure Position [Right Arm] Supine 02 Sat by Pulse Oximetry 74 L 93 L 92 L Oxygen Delivery Method Room Air Room Air Oxygen Flow Rate (LPM) 01/04/25 18:30 01/04/25 19:01 01/04/25 19:30 Temperature Temperature Source Pulse Rate 93 H 103 H 86 Pulse Rate [Right Radial] Respiratory Rate 13 21 14 Blood Pressure 115/59 L 104/41 L 103/47 L Blood Pressure [Right Arm] Blood Pressure Mean [Right Arm] Blood Pressure Source Blood Pressure Source [Right Arm] Blood Pressure Position Blood Pressure Position [Right Arm] 02 Sat by Pulse Oximetry 93 L 84 L 93 L Oxygen Delivery Method Room Air Oxygen Flow Rate (LPM) 01/04/25 20:00 01/04/25 20:15 01/04/25 21:58 Temperature 98.1 F Temperature Source Oral Pulse Rate 90 86 88 Pulse Rate [Right Radial] Respiratory Rate 16 18 16 Blood Pressure 117/58 L 121/81 Blood Pressure [Right Arm] Blood Pressure Mean [Right Arm] Blood Pressure Source Automatic Cuff Blood Pressure Source [Right Arm] Blood Pressure Position Supine Blood Pressure Position [Right Arm] 02 Sat by Pulse Oximetry 90 L 90 L Oxygen Delivery Method Nasal Cannula Oxygen Flow Rate (LPM) 2 Lab Data Lab Results 01/04/25 17:52: VBG pH 7.39, VBG pCO2 64.1 H, VBG pO2 33.6, VBG HCO3 37.7 H, VBG Total CO2 39.6 H, VBG O2 Saturation 65.3, VBG Base Excess 12.7 H, VBG Lactic Acid 2.5 H 01/04/25 18:07: WBC 16.2 H, RBC 3.63 L, Hgb 10.6 L, Hct 34.3 L, MCV 94.5, MCH 29.2, MCHC 30.9 L, RDW 15.9, Plt Count 239, MPV 9.1, Neut % (Auto) 76.9, Lymph % (Auto) 15.5, Bond % (Auto) 5.1, Eos % (Auto) 0.8, Baso % (Auto) 0.2, Neut # (Auto) 12.4 H, Lymph # (Auto) 2.5, Bond # (Auto) 0.8, Eos # (Auto) 0.1, Baso # (Auto) 0.0, Sodium 132 L, Potassium 3.9, Chloride 83 L, Carbon Dioxide 44 H*, Anion Gap 8.9, BUN 30 H, Creatinine 0.90, Estimated Creat Clear 49, Estimated GFR 62, Est GFR ( Amer) 75, Glucose 111 H, Lactate 2.6 H, Calcium 8.9, Magnesium 2.0, Total Bilirubin 0.3, AST 24, ALT 14, Alkaline Phosphatase 55, Troponin I 0.04 H, NT-Pro-B Natriuret Pep 1440 H, Total Protein 5.9 L, Albumin 3.3 L, Globulin 2.6, Albumin/Globulin Ratio 1.3, Lipase 51 01/04/25 20:53: Troponin I 0.04 H Orders (Tests/Meds): ED MEDICATIONS Generic Name Dose Route Start Last Admin Trade Name Freq PRN Reason Stop Dose Admin Ceftriaxone Sodium 2 gm/ 100 mls @ 200 mls/hr 01/04/25 18:00 01/04/25 19:36 Sodium Chloride IV 01/14/25 17:59 200 mls/hr Q24H VICENTE Administration Discontinued Medications Generic Name Dose Route Start Last Admin Trade Name Freq PRN Reason Stop Dose Admin Albuterol/Ipratropium 3 ml 01/04/25 18:00 01/04/25 18:22 Ipratropium/Albuterol 3 Ml Neb IH 01/04/25 18:01 3 ml ONCE ONE Administration Dexamethasone Sodium Phosphate 10 mg 01/04/25 17:50 01/04/25 18:21 Dexamethasone 4mg/Ml 1ml Vial IV 01/04/25 17:51 10 mg ONCE ONE Administration Furosemide 80 mg 01/04/25 18:04 01/04/25 18:21 Furosemide 100mg/10ml Vial IV 01/04/25 18:05 80 mg ONCE ONE Administration Magnesium Sulfate 2 gm in 50 mls @ 50 mls/hr 01/04/25 17:50 01/04/25 18:22 Magnesium Sulfate 2gm/50ml Premix IV 01/04/25 18:49 50 mls/hr ONCE ONE Administration Iopamidol 70 ml 01/04/25 18:55 01/04/25 18:56 Iopamidol-370 (76%);100ml Bottle IV 01/04/25 18:56 70 ml ONCE ONE Administration Sodium Chloride 10 ml 01/04/25 18:55 01/04/25 18:56 Sodium Chloride 0.9% 10ml Syr (Rad Only) IV 01/04/25 18:56 10 ml ONCE ONE Administration Sodium Chloride 50 ml 01/04/25 18:55 01/04/25 18:56 0.9 % Sodium Chloride 50 Ml Vial IV 01/04/25 18:56 50 ml ONCE ONE Administration ORDERS Category Date Time Status CTA Chest [CT angio chest PE protocol] Stat Cat Scan 01/04/25 17:51 Completed BNP [NT Pro Brain Natriuretic Pep.] Stat Lab 01/04/25 18:07 Completed CBC [Complete Blood Count Auto Diff] Stat Lab 01/04/25 18:07 Completed Comprehensive Metabolic Panel Stat Lab 01/04/25 18:07 Completed Lactic Acid Stat Lab 01/04/25 18:07 Completed Lipase Stat Lab 01/04/25 18:07 Completed Magnesium Stat Lab 01/04/25 18:07 Completed Trop I [Troponin I] Stat Lab 01/04/25 18:07 Completed Troponin I Q3H Lab 01/04/25 20:53 Completed Troponin I Q3H Lab 01/05/25 00:00 Ordered UA [Urinalysis and Microscopic] Stat Lab 01/04/25 19:09 Ordered Blood Culture Stat Micro 01/04/25 19:06 Ordered Venous Blood Gas Stat RT 01/04/25 17:52 Completed ECG Data Tracing #1: I reviewed this ECG and interpreted as documented below: Normal sinus rhythm with a ventricular rate of [address] changes concerning for STEMI. Normal intervals ECG initial impression date: 01/04/25 ECG initial impression time: 18:17 HEART Score HEART Score: 7 Medical Decision Narrative: patient is a 69-year-old female presenting to the emergency department for evaluation of bilateral lower extremity edema and weeping, shortness of breath. Patient has long history of CHF and COPD. She recently got out of [facility] where she was there for 2 weeks for rehab. She was discharged on Saturday. Patient is afebrile however she has 74% on room air but increases to 84% on 3 L. Differential diagnosis includes CHF exacerbation, COPD exacerbation, sepsis, respiratory acidosis, among others. Workup will be conducted with hematologic labs, specific imaging. Initial inventions include no crystalloid bolus as this is a CHF patient and she is already in fluid overload. Her lactic is 2.5 however I will not give her fluids as I am afraid to give her too much. Patient's O2 has increased to 93% on 3 L. Patient's initial pH was 7.3 and CO2 was 64 which were both critical and given to me. White count was 16.2. I have already given 2 g of Rocephin, 10 mg of IV Dex, 80 mg of IV Lasix. I did discuss case with Dr. Owen. DO Brayden: I was consulted by the ASHOK, and we discussed the complexity of the problems being addressed. I approved the treatment and management plan for this patient's care in the emergency department, thus performing a substantive portion of the medical decision making. On my assessment of the patient, she is resting comfortably in bed in no acute distress. She is stable on her home oxygen with normal vitals, no increased work of breathing. Cardiopulmonary exam is reassuring. Labs obtained demonstrate mild leukocytosis, which appears to be chronic on prior lab evaluation. She also has mild anemia, which also appears to be stable. Chemistry is stable with no significant changes from baseline. Troponins x 2 are 0.04 with no significant delta troponin. BNP is actually improved from prior. I did discuss with the patient the fact that her legs are swollen but she does not have evidence of gross volume overload or pulmonary edema, and I advised her that she keep her legs up. She states that she does not do that at home because is not very comfortable. She is developing venous stasis wounds. On her CT PE protocol, she does not have pulmonary edema or pneumonia, but she does have worsening lung nodules. She already has follow-up arranged with Dr. Gan tomorrow for this. I discussed the case with him and he advised she could keep follow-up tomorrow, as there is nothing that would be emergently done about these inpatient. Ultimately, she does have lower extremity swelling, which was her primary reason for presenting today, but she does not have pulmonary edema, respiratory failure, or significant changes in her labs from her baseline. I feel that she is stable and appropriate for discharge home, though I do feel that she is chronically ill and requires very close follow-up. I advise that she follow-up closely with pulmonology tomorrow as well as with cardiology and her primary care provider. I also submitted a PT/OT wound care referral for her venous stasis wounds on her lower extremities they do not appear infected at this time. I will increase her dose of Lasix for 1 week to see if this helps with the volume overload by adding 20 mg additionally to her 40 mg that she already takes at home. Patient expressed understanding and agreement and understands the importance of very close follow-up. She was given very strict return precautions and was discharged after all questions were answered Felicia Owen DO Critical Care <Stephanie Espinoza (ED), HOME HEALTH CARE COORDINATOR - Last Filed: 01/04/25 19:07> Critical Care Time Critical Care Time: No <Felicia Owen DO - Last Filed: 01/04/25 22:11> Critical Care Time Critical Care Time: Yes Attestation: On 01/04/25, the high probability of a clinically significant, sudden or life threatening deterioration of the following system(s) required my full and direct attention, intervention and personal management. The time I documented below is in addition to time spent performing reported procedures but includes the following listed in this critical care notation. Total Time Total Critical Care Time: 35
[2025-01-04 18:15] LABS: Basophils % 0.2 % (0.1-2.0); Eosinophils # 0.1 Kmm3 (0.0-0.4); Eosinophils % 0.8 % (0.1-12.0); Hematocrit 34.3 % (37.0-47.0); Hemoglobin 10.6 g/dL (12.2-16.2); Immature Granulocytes # 0.25 10^3uL; Immature Granulocytes % 1.5 %; Lymphocytes # 2.5 K/mm3 (0.7-4.5); Lymphocytes % 15.5 % (10-50); Mean Corpuscular HGB Conc 30.9 g/dL (31.8-35.4); Mean Corpuscular Hemoglobin 29.2 pg (27.0-31.2); Mean Corpuscular Volume 94.5 fl (81-99); Mean Platelet Volume 9.1 fl (7.4-10.4); Monocytes # 0.8 K/mm3 (0.1-1.0); Monocytes % 5.1 % (1.7-9.3); Neutrophils # 12.4 K/mm3 (1.8-7.8); Neutrophils % 76.9 % (37.0-80.0); Nucleated Red Blood Cells # 0 10^3/uL; Nucleated Red Blood Cells % 0 %; Platelet Count 239 K/mm3 (142-424); Red Blood Count 3.63 M/mm3 (4.20-5.40); Red Cell Distribution Width 15.9 % (11.5-17.5); Red Cell Distribution Width-SD 54.6 fL; White Blood Count 16.2 K/mm3 (4.8-10.8)
--- NOTE | 2025-01-04 18:15 | ECG_ITS ---
APPROVED REPORT Exam: Resting ECG HR:89 bpm ECG Measurements Heart Rate 89 AXES WA 129 P -12 QRSd 92 QRS 122 QT 366 T -18 QTc 413 Conclusion SINUS RHYTHM PATTERN CONSISTENT WITH PULMONARY DISEASE POSSIBLE RIGHT VENTRICULAR HYPERTROPHY [SOME/ALL OF: PROMINENT R IN V1, LATE TRANSITION, RAD, [place], SSS] ABNORMAL QRS-T ANGLE [QRS-T AXIS DIFFERENCE > 60] No STEMI Electronically signed by : ADRIAN HENDRIX, 01/04/2025 21:18:37
[2025-01-04 18:18] LABS: VBG Base Excess 12.7 mmol/L (-2.4-2.3); VBG HCO3 37.7 mmol/L (23-30); VBG Oxygen Saturation 65.3 % (50-70); VBG PH 7.39 mmol/L (7.31-7.41); VBG PO2 33.6 mmol/L (28-40); VBG Total CO2 39.6 mmol/L (23-27)
[2025-01-04 18:21] LABS: Lactate Venous 2.5 mmol/L (0.4-2.0); VBG PCO2 64.1 mmol/L (35-51)
[2025-01-04] MEDS: FUROSEMIDE 100MG/10ML VIAL 80 MG IV (18:21)
[2025-01-04] MEDS: DEXAMETHASONE 4MG/ML 1ML VIAL 10 MG IV (18:21)
[2025-01-04] MEDS: MAGNESIUM SULFATE IN WATER 2 GM/50 ML PIGGYBACK IV (18:22)
[2025-01-04] MEDS: IPRATROPIUM/ALBUTEROL 3 ML NEB IH (18:22)
[2025-01-04 18:27] LABS: Albumin Level 3.3 g/dl (3.5-5.0); Chloride 83 mmol/L (98-107); Potassium 3.9 mmoL/L (3.5-5.1); Sodium 132 mmol/L (136-145)
[2025-01-04 18:28] LABS: Lactic Acid 2.6 mmol/L (0.7-2.1)
[2025-01-04 18:30] LABS: Alanine Aminotransferase 14 U/L (12-78); Albumin/Globulin Ratio 1.3 (1.1-1.8); Alkaline Phosphatase 55 U/L (38-126); Aspartate Amino Transferase 24 U/L (14-36); Bilirubin,Total 0.3 mg/dl (0.2-1.3); Blood Urea Nitrogen 30 mg/dl (7-17); Calcium 8.9 mg/dl (8.4-10.2); Creatinine Clearance Estimated 49 mL/min (50-200); Estimated Glomerular Filt Rate 62 ml/min (>60); GFR (African American) 75 ML/MIN (>60); Globulin 2.6 g/dL (1.3-3.2); Glucose 111 mg/dl (74-100); Lipase 51 U/L (23-300); Total Protein,Serum 5.9 g/dl (6.3-8.2)
[2025-01-04 18:40] LABS: Anion Gap 8.9 mEq/L (5-15); Carbon Dioxide 44 mmol/L (22.0-30.0)
--- NOTE | 2025-01-04 18:43 | PC.NURSE ---
placed purewick on pt
[2025-01-04] MEDS: SODIUM CHLORIDE 0.9% 10ML SYR (RAD ONLY) 10 ML IV (18:56)
[2025-01-04] MEDS: 0.9 % SODIUM CHLORIDE 50 ML VIAL IV (18:56)
[2025-01-04] MEDS: IOPAMIDOL-370 (76%);100ML BOTTLE 70 ML IV (18:56)
[2025-01-04] MEDS: CEFTRIAXONE SODIUM 2 GM in 0.9 % SODIUM CHLORIDE 100 ML IV (19:36)
[2025-01-04 20:20] LABS: NT Pro Brain Natriuretic Pep. 1440 pg/mL (0-125)
[2025-01-04 20:23] LABS: Troponin I 0.04 ng/ml (0.00-0.034)
[2025-01-04 21:19] LABS: Troponin I 0.04 ng/ml (0.00-0.034)
--- NOTE | 2025-01-04 22:07 | PC.NURSE ---
Patient is waiting on ride home
[2025-01-04 22:19] LABS: Reflex Lactic Add Lactic Reflex
== END 2025-01-04 22:30 | disposition home or self-care (01) ==
PROVIDERS: Emergency Provider Emergency Medicine; PCP Nurse Practitioner
DX: R09.02 Hypoxemia (principal); R60.0 Localized edema; I87.2 Venous insufficiency (chronic) (peripheral); R91.1 Solitary pulmonary nodule; E87.1 Hypo-osmolality and hyponatremia; F17.210 Nicotine dependence, cigarettes, uncomplicated; J44.9 Chronic obstructive pulmonary disease, unspecified; Z99.81 Dependence on supplemental oxygen
CPT/HCPCS: 71275; 80053; 82803; 83605; 83690; 83735; 83880; 84484; 85025; 87040; 93005; 96365; 96375; 99291; J0696; J1100; J1938; J3475; Q9967

== ENCOUNTER 2025-01-12 16:54 | Emergency (ER) | payer MEDICARE, SELFPAY ==
--- NOTE | 2025-01-12 16:57 | ECG_ITS ---
APPROVED REPORT Exam: Resting ECG HR:91 bpm ECG Measurements Heart Rate 91 AXES WI 146 P 92 QRSd 94 QRS -75 QT 306 T 69 QTc 354 Conclusion SINUS RHYTHM LEFT ANTERIOR FASCICULAR BLOCK [QRS AXIS <= -45, QR IN I, RS IN II] no STEMI Electronically signed by : ADRIAN HENDRIX, 01/14/2025 20:50:22
[2025-01-12 17:04] VITALS: BP 180/92; PULSE 92; RESP 20; TEMP 36.6; O2SAT 99; BMI 23.8
--- NOTE | 2025-01-12 17:07 | CT_ITS ---
PROCEDURE INFORMATION: Exam: CTA Chest With Contrast Exam date and time: 01/12/2025 5:47 PM Age: 69 years old Clinical indication: Shortness of breath; Additional info: Short of breath TECHNIQUE: Imaging protocol: Computed tomographic angiography of the chest with contrast. Exam focused on the arteries. 3D rendering (Not supervised by radiologist): MIP and/or 3D reconstructed images were created by the technologist. Radiation optimization: All CT scans at this facility use at least one of these dose optimization techniques: automated exposure control; mA and/or kV adjustment per patient size (includes targeted exams where dose is matched to clinical indication); or iterative reconstruction. Contrast material: ISO 370; Contrast volume: 70 ml; Contrast route: INTRAVENOUS (IV); COMPARISON: CT ANGIO CHEST PE PROTOCOL 01/04/2025 6:55 PM FINDINGS: Pulmonary arteries: Normal. No pulmonary emboli. Aorta: Unremarkable. No aortic aneurysm. No aortic dissection. Lungs: Spiculated mass in the left lung apex unchanged from previous exam. Spiculated mass left lower lobe unchanged from prior exam. Previously noted pneumonia in the left lung base has resolved. Spiculated mass right upper lobe unchanged. 5 mm pulmonary nodule left upper lobe unchanged. . Left apical mass measuring 3.9 cm in diameter . Right upper lobe enhancing mass measures 2.3 cm in diameter. Additional left lower lobe enhancing mass measures 4.2 cm in diameter. Central lobular emphysema. Pleural spaces: Unremarkable. No pneumothorax. No pleural effusion. Heart: Unremarkable. No cardiomegaly. No pericardial effusion. Lymph nodes: Unremarkable. No enlarged lymph nodes. Diaphragm: The moderate-sized hiatal hernia Kidneys: Multiple Bosniak 1 renal cystic lesions defined as homogeneous and fluid density (-9 to 20 HU), no septations or calcifications, having torrez smooth and thin. Largest cyst measures 3.0 cm. No follow-up recommended. Bones/joints: Unremarkable. No acute fracture. Soft tissues: Unremarkable. IMPRESSION: 1. No pneumonia. Interval resolution of previously seen left lower lobe pneumonia. 2. No pulmonary embolism 3. No change in multifocal spiculated masses reflecting malignancy COMMENTS: 1. Consistent with the [employer]'s Incidental Findings Committee white paper (J Am Janice Radiol 2018): Any incidental renal lesion less than 1 cm or classified as too small to characterize, or any incidental cystic renal lesion characterized as simple-appearing, is likely benign. No follow-up imaging is recommended for these lesions per consensus recommendations based on imaging criteria. 2. The presence of pulmonary emphysema on CT is an independent risk factor for lung cancer. In the absence of a history or active diagnosis of lung cancer, it is recommended that this patient with emphysema be evaluated for enrollment in a low dose CT lung cancer screening program.
--- OUTSIDE RECORDS SUMMARY | 2025-01-12 17:08 | XMS_ITS | Clinical Summary ---
Author Organization [employer] ([place], [place], [place], [place]) Address [address] [place] [address] Care Team Providers Care Cement Mixer Driver Name Role Phone Rajat Navarro MD Primary Care Provider [phone] Allergies No known active allergies Medications albuterol [...] the past 12 months, has t he [employer], gas, oil, or water company threatened to shut off services in your home? No 10/07/2024 Interpersonal Safety Answer Date Record ed How often does anyone, conrad bravo family and friends, physically hurt you? Never 10/07/2024 How often does anyone, swapnatheresa bravo family and friends, insult or talk down to you? Never 10/07/2024 How often does anyone, swapnatheresa bravo family and friends, threaten you with harm? Never 10/07/2024 How often does anyone, swapnatheresa bravo family and friends, scream or curse [...] Do you speak a language other than [place] at [facility]? No 10/07/2024 Do you want help with school or training? For example, starting or completing job training or getting a high school diploma, GED or equivalent. No 10/07/2024 Physical Activity Answer Date Recorded Number of minutes of exercise per week 60 10/07/2024 Self Management Answer Date Recorded Because of a physical, [...] you used [place] legal drugs? Never 10/07/2024 Mental Health Answer Date Recorded Calculation of above two rows 0 Comments No Sex and Gender Information Value [...] 60-74 years 1-dose series) 2015 COVID-19 VACCINE (3 - season) 03/15/202404/2021, 04/26/2021 Falls Risk Screening 07/15/2024 Medicare Initial AWV [id number] 08/15/2024 Influenza Vaccine (Season Ended) 2025 05/30/20 23 Insurance [employer] MCR ADV Advance Directives For more information, please contact: [phone] * Full Code (Latest Code Status on File) Date Activated Date Inactivated Comments 10/06/2024 8:39 PM 10/09/2024 6:04 PM Care Teams Cement Mixer Driver Relationship Specialty Start Date End Date Rajat Navarro MD [address] [place] [id number] PCP - General Family Medicine 07/09/24
--- OUTSIDE RECORDS SUMMARY | 2025-01-12 17:08 | XMS_ITS | Clinical Summary ---
Author Organization Healthcare Address [address] [place] [address] Care Team Providers Care Hospital Personnel Director Name Role Phone Rajat Navarro MD Primary Care Provider [phone] Social History Tobacco Use Types Packs/Day Years [...] Screening 1955 [facility]-Medicare Annual Wellness (AWV) 1955 [facility]-Infant/Child/Adol SDOH Screenings 1955 [facility]- SDOH Screenings 1973 [facility]-Adult SDOH Screenings 1973 [facility]-DTaP,Tdap,and Td Vaccine s (1 - Tdap) 1974 CT Colonography 2000 Colonoscopy 2000 FIT-DNA 2000 FIT 2000 FOBT 2000 Sigmoidoscopy 2000 [facility]-Colorectal Cancer Screening 2000 [facility]-Breast Cancer Screening 2005 [facility]-Pneumococcal Vaccine: 50 + Years (1 of 1 - PCV) 2005 [facility]-Zoster Vaccines (1 of 2) 2005 [id number] Vaccine ( - 2023- season) 2024 05/24/2021, [...] this topic Insurance [employer] MEDICARE Care Teams Hospital Personnel Director Relationship Specialty Start Date End Date Rajat Navarro MD [address] [place] [address] [address] [place] [id number] PCP - General 07/15/20
--- OUTSIDE RECORDS SUMMARY | 2025-01-12 17:08 | XMS_ITS | Referral Summary ---
Author Organization [employer] ([place], [place], [place], [place]) Address [address] [place] [address] Care Team Providers Care Registrar Museum Name Role Phone Rajat Navarro MD Primary Care Provider [phone] Allergies No known active allergies Medications albuterol [...] the past 12 months, has t he [employer], gas, oil, or water company threatened [...] Do you speak a language other than Scottish at [facility]? No 10/07/2024 Do you want help [...] EDT Plan of Treatment Not on file Insurance [employer] [facility] ADV Advance Directives For more information, please contact: [phone] * Full Code (Latest Code Status on File) Date Activated Date Inactivated Comments 10/06/2024 8:39 PM 10/09/2024 6:04 PM Care Teams Registrar Museum Relationship Specialty Start Date End Date Rajat Navarro MD [address] [place] [id number] PCP - General Family Medicine 07/09/24
--- OUTSIDE RECORDS SUMMARY | 2025-01-12 17:08 | XMS_ITS | Clinical Summary ---
Author Organization [facility] Address [address] [place] [address] Phone Care Team Providers Care Paraffin Plant Operator Name Role Phone Unavailable Unavailable Conditions or Problems No information available. Medications No information available. Medications Administered No information available. Allergies, Adverse Reactions, Alerts No information available. Results No information available. Plan of Care No information available. Procedures No information available. Vital Signs No information available. Immunizations No information available. Advance Directives No information available.
--- NOTE | 2025-01-12 17:09 | ED_ITS ---
Discharge Plan Disposition Patient Disposition: Home, Self-Care Condition: Good Prescriptions Prescriptions: No Action furosemide 40 mg tablet 40 mg PO DAILY 30 Days Qty: 30 0RF furosemide [Lasix] 20 mg tablet 20 mg PO DAILY Qty: 7 0RF alprazolam 1 mg tablet 1 mg PO BID montelukast 10 mg tablet 10 mg PO PM celecoxib 50 mg capsule 50 mg PO DAILY duloxetine 30 mg capsule,delayed release(DR/EC) 30 mg PO DAILY calcium carbonate-vitamin D3 600 mg-5 mcg (200 unit) tablet 1 tab PO BIDWMEAL gabapentin 800 mg tablet 800 mg PO TID cholecalciferol (vitamin D3) 1,250 mcg (50,000 unit) capsule 1,250 mcg PO WEEKLY albuterol sulfate 90 mcg/actuation HFA aerosol inhaler 2 inh INHALATION Q6H potassium chloride 20 mEq tablet,ER particles/crystals 20 meq PO BID Rx Instructions: with food magnesium gluconate 27 mg magnesium (500 mg) tablet 27 mg PO DAILY Patient Comments: TAKE ONE TABLET BY MOUTH ONCE A DAY Trulance 3 mg tablet 3 mg PO DAILY metoprolol succinate 100 mg Tablet Extended Release 24 Hr 100 mg PO HS 30 Days Qty: 30 0RF fluticasone propion-salmeterol [Advair Diskus] 500-50 mcg/dose Blister With Device 1 inh inhalation BIDRT 30 Days Qty: 60 0RF ipratropium-albuterol 0.5 mg-3 mg(2.5 mg base)/3 mL Solution For Nebulization 3 ml inhalation Q4HP PRN (Reason: Shortness Of Breath Or Wheezing) 30 Days Qty: 90 0RF Eliquis DVT-PE Treat 30D Start 5 mg (74 tabs) tablets,dose pack 5 mg PO BID Qty: 74 0RF digoxin 125 mcg (0.125 mg) tablet 125 mcg PO DAILY Qty: 30 0RF levofloxacin 750 mg tablet 750 mg PO DAILY 3 Days Qty: 2 0RF Rx Instructions: first dose 12/15/24 tiotropium bromide [Spiriva with HandiHaler] 18 mcg Capsule, W/Inhalation Device 1 cap inhalation DAILY Qty: 30 0RF fluticasone propion-salmeterol [Advair Diskus] 500-50 mcg/dose Blister With Device 1 inh inhalation BIDRT 30 Days Qty: 60 0RF prednisone 50 mg tablet 50 mg PO DAILY 5 Days Qty: 5 0RF levofloxacin 750 mg tablet 750 mg PO DAILY 5 Days Qty: 5 0RF Referrals Follow up/Referrals: Stephanie Espinoza APRN [Primary Care Provider, Medical] - See instructions Provider,MD Yasir [Referring, Medical] - See instructions Srini Gan MD [Physician, Pulmonology] - See instructions Sathya Nayak MD [Staff Physician, Cardiology] - See instructions Activity Restrictions/Add. Instructions Additional Instructions/Restrictions: You were evaluated in the emergency department today. At this time, your workup appears stable and there does not appear to be anything acutely life-threatening that we need to admit you to the hospital for, however it is very important that you follow-up outpatient with pulmonology, cardiology, and your primary care provider as previously discussed. They can help get down to the bottom of these chronic and recurring issues. The ER is not a substitute for primary care. Return right away for new or worsening symptoms. Clinical Impressions Clinical Impression: Chronic shortness of breath, Chronic chest pain, Hypokalemia Instructions Patient Instructions: DI for Atypical Chest Pain, DI for Shortness of Breath, DI for Chest Pain, How to Manage Shortness of Breath Print Language Print Language: Fijian Discharge ED Provider: Felicia Owen HPI <Stephanie Espinoza (ED), SEAN - Last Filed: 01/12/25 19:00> General Chief Complaint: Chest Pain Stated Complaint: chest pain Time Seen by Provider: 01/12/25 16:56 Mode of Arrival: Wheelchair Source of Information: Patient and Relative Description of Symptoms (Recalled from ER Triage Doc. by RN): c/o cough and weakness x2 days. chest pain and SOA starting ealier today in which her relative made her come to the ED for eval. pt did do a breathing treatment prior to arrival. has O2 at home as needed and was wearing 3 L upon arrival. History of Present Illness HPI narrative: This is a 69-year-old female who presents to the ED today for complaint of cough, weakness for the past 2 days, chest pain and shortness of breath. She always has shortness of breath but it has gotten worse over the past 2 days. Son states that she has not gotten out of bed in the past 2 days. She has been feeling really bad. Care tenders has been coming and helping her but accusing her of not taking her medications. She has been taking her medications she just has extra meds because they have been picking up from the hospital describing and PCP prescribing. She wears 3 L nasal cannula at home. She arrives today and her blood pressure is elevated. She says she is having chest pain saying her heart hurts. Patient has COPD, CHF, history of A-fib, pneumonia, PVD, history of lung nodules, hypertension, hypoxemia. Related Data Home Medications ?Medication ?Instructions ?Recorded ?Confirmed albuterol sulfate 90 mcg/actuation 2 inh inhalation Q6 H 04/15/24 12/12/24 aerosol inhaler alprazolam 1 mg tablet 1 mg PO BID 04/15/24 5 calcium 600 mg (as 1 tab PO BIDWMEAL 04/15/24 0 12/12/24 carbonate)-vitamin D3 5 mcg (200 unit) tablet celecoxib 50 mg capsule 50 mg PO DAILY 04/15/2411/14 cholecalciferol (vitamin D3) 1,250 1,250 mcg PO WEEKLY 04/15/24 12/12/24 mcg (50,000 unit) capsule duloxetine 30 mg capsule,delayed 30 mg PO DAILY 12/12/24 release gabapentin 800 mg tablet 800 mg PO TID 04/15/2412/12 montelukast 10 mg tablet 10 mg PO PM 04/15/24 5 potassium chloride 20 mEq 20 meq PO BID 04/15/2412/12 tablet,extended release(part/cryst) magnesium gluconate 27 mg 27 mg PO DAILY 11/29/2411/14 magnesium (500 mg) tablet plecanatide 3 mg tablet (Trulance) 3 mg PO DAILY 11/2912/12/24 Previous Rx's ?Medication ?Instructions ?Recorded furosemide 40 mg tablet 40 mg PO DAILY 30 days #30 t abs 08/16/24 apixaban 5 mg (74 tabs) tablets in 5 mg PO BID #74 tab s 12/01/24 a dose pack ([employer] DVT-PE Treat 30D Start) digoxin 125 mcg (0.125 mg) tablet 125 mcg PO DAILY #30 tabs 12/01/24 fluticasone 500 mcg-salmeterol 50 1 inh inhalation BID RT 30 days #60 12/01/24 mcg/dose blistr powdr for ea inhalation (Advair Diskus) ipratropium 0.5 mg-albuterol 3 mg 3 ml inhalation Q4HP PRN Shortness 12/01/24 (2.5 mg base)/3 mL nebulization Of Breath Or Wheezing 30 days #90 soln mL metoprolol succinate 100 mg 100 mg PO HS 30 days #30 t abs 12/01/24 tablet,extended release 24 hr levofloxacin 750 mg tablet 750 mg PO DAILY 3 days #2 t abs 12/14/24 fluticasone 500 mcg-salmeterol 50 1 inh inhalation BID RT 30 days #60 12/18/24 mcg/dose blistr powdr for ea inhalation (Advair Diskus) tiotropium bromide 18 mcg capsule 1 cap inhalation AURELIA LY #30 blisters 12/18/24 with inhalation device (Spiriva with HandiHaler) levofloxacin 750 mg tablet 750 mg PO DAILY 5 days #5 t abs 12/23/24 prednisone 50 mg tablet 50 mg PO DAILY 5 days #5 tab s 12/23/24 furosemide 20 mg tablet (Lasix) 20 mg PO DAILY #7 tabs 01/04/25 Allergies Allergy/AdvReac Type Severity Reaction Status Date / Time No Known Allergies Allergy Verified 11/17/24 15:18 [facility] <Stephanie Espinoza (ED), [employer]TEGRATION ENGINEER - Last Filed: 01/12/25 19:00> [facility] Disclaimer: The information contained in this section may have been updated after the patient was seen, as this information can be updated by other users. Medical History Pneumonia Fecal occult blood test positive Sepsis without septic shock Lymphedema Physical deconditioning General weakness Lung mass Hypomagnesemia Acute hypokalemia Chronic hyponatremia Generalized weakness COPD mixed type Lung nodule Hypokalemia Elevated troponin COPD (chronic obstructive pulmonary disease) Nocturnal hypoxemia Pulmonary emphysema Incidental pulmonary nodule, greater than or equal to 8mm Smoking greater than 30 pack years Dyspnea on exertion Tobacco abuse disorder Tobacco abuse counseling COPD (chronic obstructive pulmonary disease) Cervical cancer Surgical History History of dilation and curettage History of back surgery Family History Diabetes Social History (Updated 12/18/24 @ 11:32 by Canelo Power CRNA) Smoking Status: Current every day smoker tobacco type: cigarettes packs per day: 2 second hand exposure: Yes alcohol intake: current alcohol intake frequency: 0-2 drinks per day substance use type: denies use current occupational status: unemployed Travel in the last 8 weeks?: None household members: spouse housing: house current occupational exposures/hazards: No Have you lived/traveled outside [place] in past 30 days?: No Contact w/someone who lives/traveled outside [place] past 30 days?: No Exposure to someone with infectious disease in past 14 days?: No Do you have a fever (greater than 100.4 F or 38 C)?: No Have you tested positive for COVID-19?: No Exposed to someone with COVID-19 in past 14 days?: No Do you have a sore throat?: No Do you have a cough?: No Do you have any weakness?: No Do you have any diarrhea?: No Are you experiencing any unusual bleeding?: No Do you have any muscle aches/pain?: No Do you have any abdominal pain?: No Are you experiencing loss of taste or smell?: No Other Medical History Have you received the Flu Vaccine for this season: No Have you received the Pneumonia Vaccine: No <Stephanie Espinoza (ED), D[employer]ENS[employer] INTEGRATION ENGINEER - Last Filed: 01/12/25 19:00> ROS Obtained: Yes Systems reviewed as appropriate & no additional complaints except as documented Physical Exam <Stephanie Espinoza (ED), D[employer] INTEGRATION ENGINEER - Last Filed: 01/12/25 19:00> General General appearance: alert Respiratory Respiratory exam: Present wheezes Cardiovascular Cardiovascular exam: Present regular rate Neurological Exam Neurological exam: Present alert and oriented X3 HEART Score <Stephanie Espinoza (ED), D[employer] INTEGRATION ENGINEER - Last Filed: 01/12/25 19:00> HEART Score HEART Score assessment performed?: Yes HEART Score: 4 <Felicia Owen DO - Last Filed: 01/12/25 23:38> HEART Score History (anamnesis): Slightly suspicious ECG: Normal Age: >65 years Risk factors: Atherosclerosis history Troponin: </= normal limit HEART Score: 4 Critical Care <Stephanie Espinoza (ED), D[employer]ENSION[employer] INTEGRATION ENGINEER - Last Filed: 01/12/25 19:00> Critical Care Time Critical Care Time: No Medical Decision Making <Stephanie Espinoza (ED), DIMENSION[employer] INTEGRATION ENGINEER - Last Filed: 01/12/25 19:00> Medical Records Medical records reviewed: Yes I reviewed the patient's medical records. Azael Inquiry Pt receiving controlled substance: No Azael was queried for this patient: No Vital Signs Vital Signs: 01/12/25 17:04 01/12/25 17:15 01/12/25 19:00 Temperature 98 F Temperature Source Oral Pulse Rate 90 94 H Pulse Rate [Apical] 92 H Respiratory Rate 20 18 17 Blood Pressure 144/69 H Blood Pressure [Right Arm] 180/92 H Blood Pressure Mean [Right Arm] 121 Blood Pressure Source [Right Arm] Automatic Cuff 02 Sat by Pulse Oximetry 99 99 95 Oxygen Delivery Method Nasal Cannula Nasal Cannula Oxygen Flow Rate (LPM) 3 2 01/12/25 19:30 01/12/25 20:00 01/12/25 20:02 Temperature 97.9 F Temperature Source Pulse Rate 95 H 98 H 93 H Pulse Rate [Apical] Respiratory Rate 21 19 16 Blood Pressure 155/77 H 165/88 H 165/88 H Blood Pressure [Right Arm] Blood Pressure Mean [Right Arm] Blood Pressure Source [Right Arm] 02 Sat by Pulse Oximetry 95 95 Oxygen Delivery Method Room Air Oxygen Flow Rate (LPM) 01/12/25 20:02 Temperature Temperature Source Pulse Rate 93 H Pulse Rate [Apical] Respiratory Rate Blood Pressure Blood Pressure [Right Arm] Blood Pressure Mean [Right Arm] Blood Pressure Source [Right Arm] 02 Sat by Pulse Oximetry Oxygen Delivery Method Oxygen Flow Rate (LPM) Lab Data Labs: Lab Results 01/12/25 17:00: WBC 8.7, RBC 3.85 L, Hgb 11.2 L, Hct 35.9 L, MCV 93.2, MCH 29.1, MCHC 31.2 L, RDW 15.6, Plt Count 258, MPV 8.6, Neut % (Auto) 68.8, Lymph % (Auto) 22.5, Robertson % (Auto) 6.5, Eos % (Auto) 1.3, Baso % (Auto) 0.2, Neut # (Auto) 6.0, Lymph # (Auto) 2.0, Robertson # (Auto) 0.6, Eos # (Auto) 0.1, Baso # (Auto) 0.0, PT 10.8, INR 0.97, APTT 28.5, D-Dimer 0.64 H, Sodium 132 L, P otassium 3.1 L, Chloride 85 L, Carbon Dioxide 40 H, Anion Gap 10.1, BUN 13, Creatinine 0.80, Estimated Creat Clear 49, Estimated GFR 71, Est GFR ( Amer) 86, Glucose 110 H, Calcium 10.1, Magnesium 1.7, Total Bilirubin 0.5, AST 24, ALT 13, Alkaline Phosphatase 60, Troponin I 0.01, NT-Pro-B Natriuret Pep 4310 H, Total Protein 6.8, Albumin 4.0, Globulin 2.8, Albumin/Globulin Ratio 1.4, Lipase 39 01/12/25 17:08: VBG pH 7.34, VBG pCO2 71.5 H, VBG pO2 37.2, VBG HCO3 38.0 H, VBG Total CO2 40.2 H, VBG O2 Saturation 69.9, VBG Base Excess 12.2 H, VBG Lactic Acid 2.6 H 01/12/25 17:00 01/12/25 17:00 Response Orders (Tests/Meds): ED MEDICATIONS Discontinued Medications Generic Name Dose Route Start Last Admin Trade Name Freq PRN Reason Stop Dose Admin Albuterol/Ipratropium 9 ml 01/12/25 17:07 01/12/25 17:18 Ipratropium/Albuterol 3 Ml Neb IH 01/12/25 17:08 9 ml ONCE ONE Administration Famotidine 20 mg 01/12/25 18:19 01/12/25 18:24 Famotidine 20mg/2ml Vial IV 01/12/25 18:20 20 mg ONCE ONE Administration Magnesium Sulfate 2 gm in 50 mls @ 50 mls/hr 01/12/25 17:07 01/12/25 17:18 Magnesium Sulfate 2gm/50ml Premix IV 01/12/25 18:06 50 mls/hr ONCE ONE Administration Iopamidol 70 ml 01/12/25 17:46 01/12/25 17:47 Iopamidol-370 (76%);100ml Bottle IV 01/12/25 17:47 70 ml ONCE ONE Administration Methylprednisolone Sodium Succinate 125 mg 01/12/25 17:07 01/12/25 17:18 Methylprednisolone Sod Succ 125mg Vial IV 01/12/25 17:08 125 mg ONCE ONE Administration Ondansetron HCl 4 mg 01/12/25 17:26 01/12/25 17:32 Ondansetron 4mg/2ml Vial IV 01/12/25 17:27 4 mg ONCE ONE Administration Potassium Chloride 60 meq 01/12/25 17:29 01/12/25 17:32 Potassium Chloride 20meq Tab PO 01/12/25 17:30 60 meq ONCE ONE Administration Sodium Chloride 50 ml 01/12/25 17:46 01/12/25 17:47 0.9 % Sodium Chloride 50 Ml Vial IV 01/12/25 17:47 50 ml ONCE ONE Administration Sodium Chloride 10 ml 01/12/25 17:46 01/12/25 17:47 Sodium Chloride 0.9% 10ml Syr (Rad Only) IV 01/12/25 17:47 10 ml ONCE ONE Administration Sodium Chloride 8 ml 01/12/25 18:19 Sodium Chloride 0.9% 10ml Vial IV 02/11/25 18:18 NEEDED PRN dilute pepcid ORDERS Category Date Time Status CTA Chest [CT angio chest PE protocol] Stat Cat Scan 01/12/25 17:07 Completed BNP [NT Pro Brain Natriuretic Pep.] Stat Lab 01/12/25 17:00 Completed CBC [Complete Blood Count Auto Diff] Stat Lab 01/12/25 17:00 Completed Comprehensive Metabolic Panel Stat Lab 01/12/25 17:00 Completed D-Dimer Stat Lab 01/12/25 17:00 Completed Lactate Venous Stat Lab 01/12/25 17:08 Ordered Lipase Stat Lab 01/12/25 17:00 Completed Magnesium Stat Lab 01/12/25 17:00 Completed PT INR [Prothrombin Time INR] Stat Lab 01/12/25 17:00 Completed PTT [Activated Partial Thrombo Time] Stat Lab 01/12/25 17:00 Completed Trop I [Troponin I] Stat Lab 01/12/25 17:00 Completed Venous Blood Gas Stat RT 01/12/25 17:08 Completed MDM Narrative Medical Decision Narrative: patient is a 69-year-old female presenting to the emergency department for evaluation of shortness of breath, chest pain. Patient is hemodynamically stable, elevated bp initially but now is 156/69 and nontoxic-appearing upon arrival, afebrile. Differential diagnosis includes COPD exacerbation, ACS, CHF, sepsis, among others. Workup will be conducted with hematologic labs, specific imaging. Initial inventions include crystalloid bolus, analgesics. Initial workup reviewed by me hematologic labs are remarkable for elevated D-dimer so we did CTA of chest, elevated BNP at 4310 however patient's bilateral lower extremities are less edematous than usual. Patient does have hypokalemia at 3.1. I did give her 60 mill equivalents of potassium p.o., Awaiting other labs. Still awaiting CTA of chest results. Will give report to Dr. Owen. <Felicia Owen, DO - Last Filed: 01/12/25 23:38> Vital Signs Vital Signs: 01/12/25 17:04 01/12/25 17:15 01/12/25 19:00 Temperature 98 F Temperature Source Oral Pulse Rate 90 94 H Pulse Rate [Apical] 92 H Respiratory Rate 20 18 17 Blood Pressure 144/69 H Blood Pressure [Right Arm] 180/92 H Blood Pressure Mean [Right Arm] 121 Blood Pressure Source [Right Arm] Automatic Cuff 02 Sat by Pulse Oximetry 99 99 95 Oxygen Delivery Method Nasal Cannula Nasal Cannula Oxygen Flow Rate (LPM) 3 2 01/12/25 19:30 01/12/25 20:00 01/12/25 20:02 Temperature 97.9 F Temperature Source Pulse Rate 95 H 98 H 93 H Pulse Rate [Apical] Respiratory Rate 21 19 16 Blood Pressure 155/77 H 165/88 H 165/88 H Blood Pressure [Right Arm] Blood Pressure Mean [Right Arm] Blood Pressure Source [Right Arm] 02 Sat by Pulse Oximetry 95 95 Oxygen Delivery Method Room Air Oxygen Flow Rate (LPM) 01/12/25 20:02 Temperature Temperature Source Pulse Rate 93 H Pulse Rate [Apical] Respiratory Rate Blood Pressure Blood Pressure [Right Arm] Blood Pressure Mean [Right Arm] Blood Pressure Source [Right Arm] 02 Sat by Pulse Oximetry Oxygen Delivery Method Oxygen Flow Rate (LPM) Lab Data Labs: Lab Results 01/12/25 17:00: WBC 8.7, RBC 3.85 L, Hgb 11.2 L, Hct 35.9 L, MCV 93.2, MCH 29.1, MCHC 31.2 L, RDW 15.6, Plt Count 258, MPV 8.6, Neut % (Auto) 68.8, Lymph % (Auto) 22.5, Robertson % (Auto) 6.5, Eos % (Auto) 1.3, Baso % (Auto) 0.2, Neut # (Auto) 6.0, Lymph # (Auto) 2.0, Robertson # (Auto) 0.6, Eos # (Auto) 0.1, Baso # (Auto) 0.0, PT 10.8, INR 0.97, APTT 28.5, D-Dimer 0.64 H, Sodium 132 L, P otassium 3.1 L, Chloride 85 L, Carbon Dioxide 40 H, Anion Gap 10.1, BUN 13, Creatinine 0.80, Estimated Creat Clear 49, Estimated GFR 71, Est GFR ( Amer) 86, Glucose 110 H, Calcium 10.1, Magnesium 1.7, Total Bilirubin 0.5, AST 24, ALT 13, Alkaline Phosphatase 60, Troponin I 0.01, NT-Pro-B Natriuret Pep 4310 H, Total Protein 6.8, Albumin 4.0, Globulin 2.8, Albumin/Globulin Ratio 1.4, Lipase 39 01/12/25 17:08: VBG pH 7.34, VBG pCO2 71.5 H, VBG pO2 37.2, VBG HCO3 38.0 H, VBG Total CO2 40.2 H, VBG O2 Saturation 69.9, VBG Base Excess 12.2 H, VBG Lactic Acid 2.6 H Response Orders (Tests/Meds): ED MEDICATIONS Discontinued Medications Generic Name Dose Route Start Last Admin Trade Name Anatoly PRN Reason Stop Dose Admin Albuterol/Ipratropium 9 ml 01/12/25 17:07 01/12/25 17:18 Ipratropium/Albuterol 3 Ml Neb IH 01/12/25 17:08 9 ml ONCE ONE Administration Famotidine 20 mg 01/12/25 18:19 01/12/25 18:24 Famotidine 20mg/2ml Vial IV 01/12/25 18:20 20 mg ONCE ONE Administration Magnesium Sulfate 2 gm in 50 mls @ 50 mls/hr 01/12/25 17:07 01/12/25 17:18 Magnesium Sulfate 2gm/50ml Premix IV 01/12/25 18:06 50 mls/hr ONCE ONE Administration Iopamidol 70 ml 01/12/25 17:46 01/12/25 17:47 Iopamidol-370 (76%);100ml Bottle IV 01/12/25 17:47 70 ml ONCE ONE Administration Methylprednisolone Sodium Succinate 125 mg 01/12/25 17:07 01/12/25 17:18 Methylprednisolone Sod Succ 125mg Vial IV 01/12/25 17:08 125 mg ONCE ONE Administration Ondansetron HCl 4 mg 01/12/25 17:26 01/12/25 17:32 Ondansetron 4mg/2ml Vial IV 01/12/25 17:27 4 mg ONCE ONE Administration Potassium Chloride 60 meq 01/12/25 17:29 01/12/25 17:32 Potassium Chloride 20meq Tab PO 01/12/25 17:30 60 meq ONCE ONE Administration Sodium Chloride 50 ml 01/12/25 17:46 01/12/25 17:47 0.9 % Sodium Chloride 50 Ml Vial IV 01/12/25 17:47 50 ml ONCE ONE Administration Sodium Chloride 10 ml 01/12/25 17:46 01/12/25 17:47 Sodium Chloride 0.9% 10ml Syr (Rad Only) IV 01/12/25 17:47 10 ml ONCE ONE Administration Sodium Chloride 8 ml 01/12/25 18:19 Sodium Chloride 0.9% 10ml Vial IV 02/11/25 18:18 NEEDED PRN dilute pepcid ORDERS Category Date Time Status CTA Chest [CT angio chest PE protocol] Stat Cat Scan 01/12/25 17:07 Completed BNP [NT Pro Brain Natriuretic Pep.] Stat Lab 01/12/25 17:00 Completed CBC [Complete Blood Count Auto Diff] Stat Lab 01/12/25 17:00 Completed Comprehensive Metabolic Panel Stat Lab 01/12/25 17:00 Completed D-Dimer Stat Lab 01/12/25 17:00 Completed Lactate Venous Stat Lab 01/12/25 17:08 Ordered Lipase Stat Lab 01/12/25 17:00 Completed Magnesium Stat Lab 01/12/25 17:00 Completed PT INR [Prothrombin Time INR] Stat Lab 01/12/25 17:00 Completed PTT [Activated Partial Thrombo Time] Stat Lab 01/12/25 17:00 Completed Trop I [Troponin I] Stat Lab 01/12/25 17:00 Completed Venous Blood Gas Stat RT 01/12/25 17:08 Completed MDM Narrative Medical Decision Narrative: patient is a 69-year-old female presenting to the emergency department for evaluation of shortness of breath, chest pain. Patient is hemodynamically stable, elevated bp initially but now is 156/69 and nontoxic-appearing upon arrival, afebrile. Differential diagnosis includes COPD exacerbation, ACS, CHF, sepsis, among others. Workup will be conducted with hematologic labs, specific imaging. Initial inventions include crystalloid bolus, analgesics. Initial workup reviewed by me hematologic labs are remarkable for elevated D-dimer so we did CTA of chest, elevated BNP at 4310 however patient's bilateral lower extremities are less edematous than usual. Patient does have hypokalemia at 3.1. I did give her 60 mill equivalents of potassium p.o., Awaiting other labs. Still awaiting CTA of chest results. Will give report to Dr. Owen. DO Brayden: I was consulted by the ASHOK, and we discussed the complexity of the problems being addressed. I approved the treatment and management plan for this patient's care in the emergency department, thus performing a substantive portion of the medical decision making. On my assessment of the patient, she is lying in bed comfortably with reassuring cardiopulmonary and abdominal exams. Vitals are normal on her home oxygen on cardiac telemetry. Labs demonstrate reassuring CBC with no significant leukocytosis. Chemistry demonstrates chronic hyponatremia, mild hypokalemia for which oral repletion was ordered. She has an elevated BNP which is higher than prior, but she actually has significantly less swelling in her legs and no pulmonary edema noted on imaging. I independently interpreted CTA prior to radiology read and noted no significant change from prior CT. Please see radiology read for final interpretation. Overall at this time, I feel patient's exam and workup continue to be stable. She did not go see pulmonology after her last visit like she was instructed to, as she states that she was sick. I again stressed the importance of outpatient follow-up to her. She was discharged with instructions to follow-up outpatient with cardiology, pulmonology, and her primary care doctor. Felicia Owen DO
[2025-01-12 17:13] LABS: Hematocrit 35.9 % (37.0-47.0); Hemoglobin 11.2 g/dL (12.2-16.2); Immature Granulocytes % 0.7 %; Mean Corpuscular HGB Conc 31.2 g/dL (31.8-35.4); Mean Corpuscular Hemoglobin 29.1 pg (27.0-31.2); Mean Corpuscular Volume 93.2 fl (81-99); Nucleated Red Blood Cells % 0 %; Platelet Count 258 K/mm3 (142-424); Red Blood Count 3.85 M/mm3 (4.20-5.40); Red Cell Distribution Width-SD 53.1 fL; White Blood Count 8.7 K/mm3 (4.8-10.8)
[2025-01-12 17:15] VITALS: PULSE 90; RESP 18; O2SAT 99
[2025-01-12 17:15] LABS: VBG HCO3 38.0 mmol/L (23-30); VBG PH 7.34 mmol/L (7.31-7.41); VBG PO2 37.2 mmol/L (28-40)
[2025-01-12] MEDS: MAGNESIUM SULFATE IN WATER 2 GM/50 ML PIGGYBACK IV (17:18)
[2025-01-12] MEDS: METHYLPREDNISOLONE SOD SUCC 125MG VIAL 125 MG IV (17:18)
[2025-01-12] MEDS: IPRATROPIUM/ALBUTEROL 3 ML NEB 9 ML IH (17:18)
--- NOTE | 2025-01-12 17:18 | PC.NURSE ---
RT notified Dr. Owen of VBG results
[2025-01-12 17:20] LABS: Alanine Aminotransferase 13 U/L (12-78); Albumin Level 4.0 g/dl (3.5-5.0); Albumin/Globulin Ratio 1.4 (1.1-1.8); Alkaline Phosphatase 60 U/L (38-126); Aspartate Amino Transferase 24 U/L (14-36); Bilirubin,Total 0.5 mg/dl (0.2-1.3); Blood Urea Nitrogen 13 mg/dl (7-17); Calcium 10.1 mg/dl (8.4-10.2); Chloride 85 mmol/L (98-107); Creatinine Clearance Estimated 49 mL/min (50-200); Creatinine,Serum 0.80 mg/dl (0.52-1.04); Estimated Glomerular Filt Rate 71 ml/min (>60); GFR (African American) 86 ML/MIN (>60); Globulin 2.8 g/dL (1.3-3.2); Glucose 110 mg/dl (74-100); Lipase 39 U/L (23-300); Magnesium 1.7 mg/dl (1.6-2.3); Potassium 3.1 mmoL/L (3.5-5.1); Sodium 132 mmol/L (136-145); Total Protein,Serum 6.8 g/dl (6.3-8.2)
[2025-01-12 17:21] LABS: Lactate Venous 2.6 mmol/L (0.4-2.0); VBG PCO2 71.5 mmol/L (35-51)
[2025-01-12 17:22] LABS: Activated Partial Thrombo Time 28.5 seconds (22.8-30.6); INR 0.97 (0.9-1.1); Prothrombin Time 10.8 seconds (10.1-12.5)
[2025-01-12 17:26] LABS: Anion Gap 10.1 mEq/L (5-15)
[2025-01-12 17:32] LABS: Troponin I 0.01 ng/ml (0.00-0.034)
[2025-01-12] MEDS: ONDANSETRON 4MG/2ML VIAL 4 MG IV (17:32)
[2025-01-12] MEDS: POTASSIUM CHLORIDE 20MEQ TAB 60 MEQ PO (17:32)
[2025-01-12 17:33] LABS: D-Dimer 0.64 ug/mL (0.0-0.5)
--- NOTE | 2025-01-12 17:42 | PC.NURSE ---
Pt to CT
[2025-01-12 17:43] LABS: NT Pro Brain Natriuretic Pep. 4310 pg/mL (0-125)
[2025-01-12] MEDS: 0.9 % SODIUM CHLORIDE 50 ML VIAL IV (17:47)
[2025-01-12] MEDS: SODIUM CHLORIDE 0.9% 10ML SYR (RAD ONLY) 10 ML IV (17:47)
[2025-01-12] MEDS: IOPAMIDOL-370 (76%);100ML BOTTLE 70 ML IV (17:47)
[2025-01-12 17:52] LABS: Carbon Dioxide 40 mmol/L (22.0-30.0)
[2025-01-12] MEDS: FAMOTIDINE 20MG/2ML VIAL 20 MG IV (18:24)
[2025-01-12 19:00] VITALS: BP 144/69; PULSE 94; RESP 17; O2SAT 95
[2025-01-12 19:30] VITALS: BP 155/77; PULSE 95; RESP 21; O2SAT 95
[2025-01-12 20:00] VITALS: BP 165/88; PULSE 98; RESP 19; O2SAT 95
--- NOTE | 2025-01-12 20:00 | PC.NURSE ---
called pts son to notify him she is ready for discharge
[2025-01-12 20:02] VITALS: BP 165/88; PULSE 93; RESP 16; TEMP 36.6; O2SAT 94
--- NOTE | 2025-01-12 21:17 | PC.NURSE ---
attempted to call son regarding pts ride home unable to reach
[2025-01-12 21:22] LABS: Reflex Lactic Add Lactic Reflex
== END 2025-01-12 21:48 | disposition home or self-care (01) ==
PROVIDERS: Emergency Provider Emergency Medicine; PCP Nurse Practitioner
DX: R07.9 Chest pain, unspecified (principal); R06.02 Shortness of breath; E87.6 Hypokalemia; F17.210 Nicotine dependence, cigarettes, uncomplicated; J44.9 Chronic obstructive pulmonary disease, unspecified; I11.0 Hypertensive heart disease with heart failure; I50.9 Heart failure, unspecified; I73.9 Peripheral vascular disease, unspecified
CPT/HCPCS: 71275; 80053; 82803; 83690; 83735; 83880; 84484; 85025; 85378; 85610; 85730; 93005; 96365; 96375; 99285; J2405; J2919; J3475; Q9967

== ENCOUNTER 2025-01-19 17:19 | Emergency (ER) | payer MEDICARE, SELFPAY ==
--- NOTE | 2025-01-19 17:22 | ED_ITS ---
Discharge Plan Disposition Patient Disposition: Home, Self-Care Condition: Good Prescriptions Prescriptions: No Action furosemide 40 mg tablet 40 mg PO DAILY 30 Days Qty: 30 0RF furosemide [Lasix] 20 mg tablet 20 mg PO DAILY Qty: 7 0RF alprazolam 1 mg tablet 1 mg PO BID montelukast 10 mg tablet 10 mg PO PM celecoxib 50 mg capsule 50 mg PO DAILY duloxetine 30 mg capsule,delayed release(DR/EC) 30 mg PO DAILY calcium carbonate-vitamin D3 600 mg-5 mcg (200 unit) tablet 1 tab PO BIDWMEAL gabapentin 800 mg tablet 800 mg PO TID cholecalciferol (vitamin D3) 1,250 mcg (50,000 unit) capsule 1,250 mcg PO WEEKLY albuterol sulfate 90 mcg/actuation HFA aerosol inhaler 2 inh INHALATION Q6H potassium chloride 20 mEq tablet,ER particles/crystals 20 meq PO BID Rx Instructions: with food magnesium gluconate 27 mg magnesium (500 mg) tablet 27 mg PO DAILY Patient Comments: TAKE ONE TABLET BY MOUTH ONCE A DAY Trulance 3 mg tablet 3 mg PO DAILY metoprolol succinate 100 mg Tablet Extended Release 24 Hr 100 mg PO HS 30 Days Qty: 30 0RF fluticasone propion-salmeterol [Advair Diskus] 500-50 mcg/dose Blister With Device 1 inh inhalation BIDRT 30 Days Qty: 60 0RF ipratropium-albuterol 0.5 mg-3 mg(2.5 mg base)/3 mL Solution For Nebulization 3 ml inhalation Q4HP PRN (Reason: Shortness Of Breath Or Wheezing) 30 Days Qty: 90 0RF Eliquis DVT-PE Treat 30D Start 5 mg (74 tabs) tablets,dose pack 5 mg PO BID Qty: 74 0RF digoxin 125 mcg (0.125 mg) tablet 125 mcg PO DAILY Qty: 30 0RF levofloxacin 750 mg tablet 750 mg PO DAILY 3 Days Qty: 2 0RF Rx Instructions: first dose 12/15/24 tiotropium bromide [Spiriva with HandiHaler] 18 mcg Capsule, W/Inhalation Device 1 cap inhalation DAILY Qty: 30 0RF fluticasone propion-salmeterol [Advair Diskus] 500-50 mcg/dose Blister With Device 1 inh inhalation BIDRT 30 Days Qty: 60 0RF prednisone 50 mg tablet 50 mg PO DAILY 5 Days Qty: 5 0RF levofloxacin 750 mg tablet 750 mg PO DAILY 5 Days Qty: 5 0RF Referrals Follow up/Referrals: Stephanie Espinoza APRN [Primary Care Provider, Medical] - See instructions Activity Restrictions/Add. Instructions Additional Instructions/Restrictions: You were evaluated in the emergency department today. Your heart rate improved after fluids. Your workup is reassuring. Follow-up closely with your primary care provider, cardiology, and pulmonology. Return to the emergency department for new or worsening symptoms. Clinical Impressions Clinical Impression: Sinus tachycardia Instructions Patient Instructions: DI for Tachycardia Print Language Print Language: Bahraini Discharge ED Provider: Felicia Owen General Adult HPI <AKHIL Wright - Last Filed: 01/19/25 19:20> General Chief complaint: Arrhythmia/Palpitations Stated complaint: Fast heart rate 145 Time Seen by Provider: 01/19/25 17:21 History of Present Illness HPI narrative: Patient presents for evaluation of rapid heart rate. Patient had a caregiver noticed that her heart rate was elevated and recommended that she come to the emergency department for evaluation. Patient herself denies chest pain new or worsening shortness of breath fever chills hemoptysis hematochezia melena nausea vomiting diarrhea. Of note patient is seen regularly in the emergency department for COPD and has had 3 of 4 CTAs of the chest within the last calendar 30 days. Related Data Home Medications ?Medication ?Instructions ?Recorded ?Confirmed albuterol sulfate 90 mcg/actuation 2 inh inhalation Q6 H 04/15/24 12/12/24 aerosol inhaler alprazolam 1 mg tablet 1 mg PO BID 04/15/24 5 calcium 600 mg (as 1 tab PO BIDWMEAL 04/15/24 0 12/12/24 carbonate)-vitamin D3 5 mcg (200 unit) tablet celecoxib 50 mg capsule 50 mg PO DAILY 04/15/2411/14 cholecalciferol (vitamin D3) 1,250 1,250 mcg PO WEEKLY 04/15/24 12/12/24 mcg (50,000 unit) capsule duloxetine 30 mg capsule,delayed 30 mg PO DAILY 12/12/24 release gabapentin 800 mg tablet 800 mg PO TID 04/15/2412/12 montelukast 10 mg tablet 10 mg PO PM 04/15/24 5 potassium chloride 20 mEq 20 meq PO BID 04/15/2412/12 tablet,extended release(part/cryst) magnesium gluconate 27 mg 27 mg PO DAILY 11/29/2411/14 magnesium (500 mg) tablet plecanatide 3 mg tablet (Trulance) 3 mg PO DAILY 11/2912/12/24 Previous Rx's ?Medication ?Instructions ?Recorded furosemide 40 mg tablet 40 mg PO DAILY 30 days #30 t abs 08/16/24 apixaban 5 mg (74 tabs) tablets in 5 mg PO BID #74 tab s 12/01/24 a dose pack ([employer] DVT-PE Treat 30D Start) digoxin 125 mcg (0.125 mg) tablet 125 mcg PO DAILY #30 tabs 12/01/24 fluticasone 500 mcg-salmeterol 50 1 inh inhalation BID RT 30 days #60 12/01/24 mcg/dose blistr powdr for ea inhalation (Advair Diskus) ipratropium 0.5 mg-albuterol 3 mg 3 ml inhalation Q4HP PRN Shortness 12/01/24 (2.5 mg base)/3 mL nebulization Of Breath Or Wheezing 30 days #90 soln mL metoprolol succinate 100 mg 100 mg PO HS 30 days #30 t abs 12/01/24 tablet,extended release 24 hr levofloxacin 750 mg tablet 750 mg PO DAILY 3 days #2 t abs 12/14/24 fluticasone 500 mcg-salmeterol 50 1 inh inhalation BID RT 30 days #60 12/18/24 mcg/dose blistr powdr for ea inhalation (Advair Diskus) tiotropium bromide 18 mcg capsule 1 cap inhalation AURELIA LY #30 blisters 12/18/24 with inhalation device (Spiriva with HandiHaler) levofloxacin 750 mg tablet 750 mg PO DAILY 5 days #5 t abs 12/23/24 prednisone 50 mg tablet 50 mg PO DAILY 5 days #5 tab s 12/23/24 furosemide 20 mg tablet (Lasix) 20 mg PO DAILY #7 tabs 01/04/25 Allergies Allergy/AdvReac Type Severity Reaction Status Date / Time No Known Allergies Allergy Verified 11/17/24 15:18 [facility] <AKHIL Wright - Last Filed: 01/19/25 19:20> [facility] Disclaimer: The information contained in this section may have been updated after the patient was seen, as this information can be updated by other users. Medical History Pneumonia Fecal occult blood test positive Sepsis without septic shock Lymphedema Physical deconditioning General weakness Lung mass Hypomagnesemia Acute hypokalemia Chronic hyponatremia Generalized weakness COPD mixed type Lung nodule Hypokalemia Elevated troponin COPD (chronic obstructive pulmonary disease) Nocturnal hypoxemia Pulmonary emphysema Incidental pulmonary nodule, greater than or equal to 8mm Smoking greater than 30 pack years Dyspnea on exertion Tobacco abuse disorder Tobacco abuse counseling COPD (chronic obstructive pulmonary disease) Cervical cancer Surgical History History of dilation and curettage History of back surgery Family History Diabetes Social History (Updated 12/18/24 @ 11:32 by Canelo Power CRNA) Smoking Status: Current every day smoker tobacco type: cigarettes packs per day: 2 second hand exposure: Yes alcohol intake: current alcohol intake frequency: 0-2 drinks per day substance use type: denies use current occupational status: unemployed Travel in the last 8 weeks?: None household members: spouse housing: house current occupational exposures/hazards: No Have you lived/traveled outside US in past 30 days?: No Contact w/someone who lives/traveled outside US past 30 days?: No Exposure to someone with infectious disease in past 14 days?: No Do you have a fever (greater than 100.4 F or 38 C)?: No Have you tested positive for COVID-19?: No Exposed to someone with COVID-19 in past 14 days?: No Do you have a sore throat?: No Do you have a cough?: No Do you have any weakness?: No Do you have any diarrhea?: No Are you experiencing any unusual bleeding?: No Do you have any muscle aches/pain?: No Do you have any abdominal pain?: No Are you experiencing loss of taste or smell?: No Other Medical History Have you received the Flu Vaccine for this season: No Have you received the Pneumonia Vaccine: No <AKHIL Wright - Last Filed: 01/19/25 19:20> ROS Obtained: Yes Systems reviewed as appropriate & no additional complaints except as documented Physical Exam <AKHIL Wright - Last Filed: 01/19/25 19:20> General General appearance: alert and in no apparent distress Respiratory Respiratory exam: Present normal lung sounds bilaterally Cardiovascular Cardiovascular exam: Present tachycardia Neurological Exam Neurological exam: Present alert and oriented X3 Medical Decision Making <AKHIL Wright - Last Filed: 01/19/25 19:20> Medical Records Medical records reviewed: Yes I reviewed the patient's medical records. Screening: Per USPSTF and CDC recommendations, given the prevalence of disease in our region, it is our hospital?s policy to screen for HIV and viral Hepatitis for all patients aged 18 and over and those with ongoing risk factors. Azael Inquiry Pt receiving controlled substance: No Vital Signs: 01/19/25 17:31 01/19/25 18:31 01/19/25 18:36 Temperature 98.4 F Temperature Source Oral Pulse Rate 111 H 112 H Pulse Rate [Right] 137 H Respiratory Rate 18 18 14 Blood Pressure 206/98 H 167/98 H Blood Pressure [Right Arm] 199/101 H Blood Pressure Mean [Right Arm] 133 02 Sat by Pulse Oximetry 92 L 98 97 Oxygen Delivery Method Nasal Cannula Oxygen Flow Rate (LPM) 2 01/19/25 18:40 01/19/25 19:00 01/19/25 21:35 Temperature 98.5 F 98.7 F Temperature Source Pulse Rate 110 H 105 H 110 H Pulse Rate [Right] Respiratory Rate 14 22 21 Blood Pressure 167/98 H 194/100 H 196/111 H Blood Pressure [Right Arm] Blood Pressure Mean [Right Arm] 02 Sat by Pulse Oximetry 98 99 Oxygen Delivery Method Nasal Cannula Oxygen Flow Rate (LPM) 2 2 Lab Data Lab results reviewed: Yes I reviewed the patient's lab results. Lab Results 01/19/25 17:32: WBC 9.9, RBC 4.00 L, Hgb 11.3 L, Hct 36.9 L, MCV 92.3, MCH 28.3, MCHC 30.6 L, RDW 15.1, Plt Count 353, MPV 8.9, Neut % (Auto) 66.1, Lymph % (Auto) 25.6, [place] % (Auto) 6.9, Eos % (Auto) 0.8, Baso % (Auto) 0.3, Neut # (Auto) 6.6, Lymph # (Auto) 2.5, [place] # (Auto) 0.7, Eos # (Auto) 0.1, Baso # (Auto) 0.0, Sodium 131 L, Potassium 4.0, Chloride 85 L, Carbon Dioxide 32 H, A nion Gap 18.0 H, BUN 11, Creatinine 0.90, Estimated Creat Clear 52, Estimated GFR 62, Est GFR ( Amer) 75, Glucose 131 H, Calcium 11.2 H, Magnesium 1.7, Total Bilirubin 0.4, AST 33, ALT 18, Alkaline Phosphatase 54, Troponin I 0.03, Total Protein 7.3, Albumin 4.5, Globulin 2.8, Albumin/Globulin Ratio 1.6 01/19/25 20:40: Troponin I 0.03 01/19/25 17:32 01/19/25 17:32 Orders (Tests/Meds): ED MEDICATIONS Discontinued Medications Generic Name Dose Route Start Last Admin Trade Name Freq PRN Reason Stop Dose Admin Famotidine 40 mg 01/19/25 18:23 01/19/25 18:40 Famotidine 20mg Tablet PO 01/19/25 18:24 40 mg ONCE ONE Administration Sodium Chloride 1,000 mls @ 999 mls/hr 01/19/25 17:33 01/19/25 17:44 Sod Chlor 0.9% 1000ml Bag IV 01/19/25 18:33 999 mls/hr .Q1H1M ONE Administration ORDERS Category Date Time Status Chest XR -- portable [XR chest portable] Stat Exams 01/19/25 18:46 Completed CBC w/Auto Diff [Complete Blood Count Auto Diff] Stat Lab 01/19/25 17:32 Completed CMP [Comprehensive Metabolic Panel] Stat Lab 01/19/25 17:32 Completed Magnesium Stat Lab 01/19/25 17:32 Completed Trop I [Troponin I] Stat Lab 01/19/25 17:32 Completed Troponin I Q3H Lab 01/19/25 20:40 Completed HEART Score History (anamnesis): Slightly suspicious ECG: Non-specific disturbance Age: >65 years Risk factors: 3 or more risk factors Troponin: </= normal limit HEART Score: 5 Medical Decision Narrative: In summary patient is a 69-year-old female who presents to the emergency department for evaluation of asymptomatic tachycardia. Patient is tachycardic on arrival with a rate of 137 hypertensive with a blood pressure 199/101 breathing 18 times a minute satting at 92% on 2 L by nasal cannula which is her baseline upon arrival, and afebrile at 98.4. Physical exam is remarkable for pursed lip breathing however she has no increased work of breathing, patient has an expiratory wheezes which is normal, heart sounds are S1-S2 rapid regular rate and rhythm without murmurs gallops rubs or thrills.. Differential diagnosis includes tachycardia arrhythmia versus ACS versus electrolyte abnormality etc. Initial workup will be conducted with hematologic labs twelve-lead EKG. Initial interventions were considered however patient is asymptomatic thus for now interventions are only going to be a crystalloid bolus to see if that improves her heart rate. Initial workup reviewed by me the patient's hematologic labs are significant for a initial troponin of 0.03 the patient remains tachycardic at 113 after crystalloid bolus. Additionally patient has a sodium 131 today chloride of 85 CO2 of 32 gap of 18 glucose 131 calcium 11.2 with remainder of her hematologic labs being nonactionable. My informed trepidation of her chest x-ray shows no acute processes.. Given this the patient was placed in observation status at 1900 hrs. Medical necessity for observational status is serial troponins. The patient was provided serial reevaluations continuous cardiac monitoring while awaiting results. [Results of testing during observation remarkable for:]. [Because of these results I feel the patient can be discharged with follow-up with her PCP versus I feel the patient requires admission due to]. Total time in observation was [total time]. Care was transitioned to Dr. Owen at 1900 hrs. while awaiting second troponin. <Felicia Owen, DO - Last Filed: 01/19/25 23:50> Vital Signs: 01/19/25 17:31 01/19/25 18:31 01/19/25 18:36 Temperature 98.4 F Temperature Source Oral Pulse Rate 111 H 112 H Pulse Rate [Right] 137 H Respiratory Rate 18 18 14 Blood Pressure 206/98 H 167/98 H Blood Pressure [Right Arm] 199/101 H Blood Pressure Mean [Right Arm] 133 02 Sat by Pulse Oximetry 92 L 98 97 Oxygen Delivery Method Nasal Cannula Oxygen Flow Rate (LPM) 2 01/19/25 18:40 07/08/25 19:00 01/19/25 21:35 Temperature 98.5 F 98.7 F Temperature Source Pulse Rate 110 H 105 H 110 H Pulse Rate [Right] Respiratory Rate 14 22 21 Blood Pressure 167/98 H 194/100 H 196/111 H Blood Pressure [Right Arm] Blood Pressure Mean [Right Arm] 02 Sat by Pulse Oximetry 98 99 Oxygen Delivery Method Nasal Cannula Oxygen Flow Rate (LPM) 2 2 Lab Data Lab Results 01/19/25 17:32: WBC 9.9, RBC 4.00 L, Hgb 11.3 L, Hct 36.9 L, MCV 92.3, MCH 28.3, MCHC 30.6 L, RDW 15.1, Plt Count 353, MPV 8.9, Neut % (Auto) 66.1, Lymph % (Auto) 25.6, [place] % (Auto) 6.9, Eos % (Auto) 0.8, Baso % (Auto) 0.3, Neut # (Auto) 6.6, Lymph # (Auto) 2.5, [place] # (Auto) 0.7, Eos # (Auto) 0.1, Baso # (Auto) 0.0, Sodium 131 L, Potassium 4.0, Chloride 85 L, Carbon Dioxide 32 H, A nion Gap 18.0 H, BUN 11, Creatinine 0.90, Estimated Creat Clear 52, Estimated GFR 62, Est GFR ( Amer) 75, Glucose 131 H, Calcium 11.2 H, Magnesium 1.7, Total Bilirubin 0.4, AST 33, ALT 18, Alkaline Phosphatase 54, Troponin I 0.03, Total Protein 7.3, Albumin 4.5, Globulin 2.8, Albumin/Globulin Ratio 1.6 01/19/25 20:40: Troponin I 0.03 Orders (Tests/Meds): ED MEDICATIONS Discontinued Medications Generic Name Dose Route Start Last Admin Trade Name Freq PRN Reason Stop Dose Admin Famotidine 40 mg 01/19/25 18:23 01/19/25 18:40 Famotidine 20mg Tablet PO 01/19/25 18:24 40 mg ONCE ONE Administration Sodium Chloride 1,000 mls @ 999 mls/hr 01/19/25 17:33 01/19/25 17:44 Sod Chlor 0.9% 1000ml Bag IV 01/19/25 18:33 999 mls/hr .Q1H1M ONE Administration ORDERS Category Date Time Status Chest XR -- portable [XR chest portable] Stat Exams 01/19/25 18:46 Completed CBC w/Auto Diff [Complete Blood Count Auto Diff] Stat Lab 01/19/25 17:32 Completed CMP [Comprehensive Metabolic Panel] Stat Lab 01/19/25 17:32 Completed Magnesium Stat Lab 01/19/25 17:32 Completed Trop I [Troponin I] Stat Lab 01/19/25 17:32 Completed Troponin I Q3H Lab 01/19/25 20:40 Completed ECG Data Tracing #1: I reviewed this ECG and interpreted as documented below: Sinus tachycardia the ventricular of [address] changes concerning for ischemia. Normal intervals ECG initial impression date: 01/19/25 ECG initial impression time: 17:28 HEART Score HEART Score: 5 Medical Decision Narrative: In summary patient is a 69-year-old female who presents to the emergency department for evaluation of asymptomatic tachycardia. Patient is tachycardic on arrival with a rate of 137 hypertensive with a blood pressure 199/101 breathing 18 times a minute satting at 92% on 2 L by nasal cannula which is her baseline upon arrival, and afebrile at 98.4. Physical exam is remarkable for pursed lip breathing however she has no increased work of breathing, patient has an expiratory wheezes which is normal, heart sounds are S1-S2 rapid regular rate and rhythm without murmurs gallops rubs or thrills.. Differential diagnosis includes tachycardia arrhythmia versus ACS versus electrolyte abnormality etc. Initial workup will be conducted with hematologic labs twelve-lead EKG. Initial interventions were considered however patient is asymptomatic thus for now interventions are only going to be a crystalloid bolus to see if that improves her heart rate. Initial workup reviewed by me the patient's hematologic labs are significant for a initial troponin of 0.03 the patient remains tachycardic at 113 after crystalloid bolus. Additionally patient has a sodium 131 today chloride of 85 CO2 of 32 gap of 18 glucose 131 calcium 11.2 with remainder of her hematologic labs being nonactionable. My informed trepidation of her chest x-ray shows no acute processes.. Given this the patient was placed in observation status at 1900 hrs. Medical necessity for observational status is serial troponins. The patient was provided serial reevaluations continuous cardiac monitoring while awaiting results. DO Brayden: I was consulted by the ASHOK, and we discussed the complexity of the problems being addressed. I approved the treatment and management plan for this patient's care in the emergency department, thus performing a substantive portion of the medical decision making. Second opponent resulted and is also negative. Heart rate significantly improved after fluid bolus. She did have mildly elevated anion gap and mild hyponatremia in the setting of aggressive diuresis has been going on because of heart failure. I feel that she likely has volume depletion as a cause of her tachycardia as she responded well to fluids. She is asymptomatic on my assessment actually is good compared to when of seen her previously. Her blood pressure is elevated but she already has close outpatient follow-up with home health and primary care on a outpatient basis. Given that she is completely asymptomatic and vitals have improved, I feel she is appropriate for discharge with close follow-up. She was given strict return precautions. She was discharged at 21 2:30 hours and 30 minutes in ED observation status Felicia Owen DO Critical Care <AKHIL Wright - Last Filed: 01/19/25 19:20> Critical Care Time Critical Care Time: No
--- OUTSIDE RECORDS SUMMARY | 2025-01-19 17:25 | XMS_ITS | Clinical Summary ---
Author Organization [employer] ([place], [place], [place], [place]) Address [address] [place] [address] Care Team Providers Care Supervisor Metal Placing Name Role Phone Rajat Navarro MD Primary Care Provider [phone] Allergies No known active allergies Medications albuterol [...] the past 12 months, has t he [employer], gas, oil, or water company threatened to [...] Do you speak a language other than [place] at [facility]? No 10/07/2024 Do you want help with [...] Medicare Initial AWV [id number] 08/15/2024 Influenza Vaccine (#1) 2025 05/30/2023 Insurance [employer] MCR ADV Advance Directives For more information, please contact: [phone] * Full Code (Latest Code Status on File) Date Activated Date Inactivated Comments 10/06/2024 8:39 PM 10/09/2024 6:04 PM Care Teams Supervisor Metal Placing Relationship Specialty Start Date End Date Rajat Navarro MD [address] [place] [id number] PCP - General Family Medicine 07/09/24
--- OUTSIDE RECORDS SUMMARY | 2025-01-19 17:25 | XMS_ITS | Clinical Summary ---
Author Organization Healthcare Address [address] [place] [address] Care Team Providers Care Wide Load Escort Name Role Phone Rajat Navarro MD Primary Care Provider [phone] Social History Tobacco Use Types Packs/Day Years [...] 2005 [facility]Y-Zoster Vaccines (1 of 2) 2005 [id number] Vaccine ( - 2023- season) 2024 05/24/2021, 04/26/2021 [facility]Y-Influenza Vaccine (#1) 2025 05/10/2010 UKY-RSV Vaccine: 60+ Years o [...] this topic Insurance [employer] MEDICARE Care Teams Wide Load Escort Relationship Specialty Start Date End Date Rajat Navarro MD [address] [place] [address] #1 [address] [id number] PCP - General 07/15/20
--- OUTSIDE RECORDS SUMMARY | 2025-01-19 17:25 | XMS_ITS | Clinical Summary ---
Author Organization [facility] Address [address] [place] [address] Phone Care Team Providers Care Manager Of Software Name Role Phone Unavailable Unavailable Conditions or Problems No information available. Medications No information available. Medications Administered No information available. Allergies, Adverse Reactions, Alerts No information available. Results No information available. Plan of Care No information available. Procedures No information available. Vital Signs No information available. Immunizations No information available. Advance Directives No information available.
--- OUTSIDE RECORDS SUMMARY | 2025-01-19 17:25 | XMS_ITS | Referral Summary ---
Author Organization [facility] ([place], [place], [place], [place]) Address [address] [place] [address] Care Team Providers Care Dynamometer Tuner Name Role Phone Rajat Navarro MD Primary Care Provider [phone] Allergies No known active allergies Medications albuterol [...] the past 12 months, has t he [employer], gas, oil, or water company threatened to [...] Do you speak a language other than [place]ian at [facility]? No 10/07/2024 Do you want help [...] of Treatment Not on file Insurance [employer] [facility] ADV Advance Directives For more information, please contact: [phone] * Full Code (Latest Code Status on File) Date Activated Date Inactivated Comments 10/06/2024 8:39 PM 10/09/2024 6:04 PM Care Teams Dynamometer Tuner Relationship Specialty Start Date End Date Rajat Navarro MD [address] [id number] PCP - General Family Medicine 07/09/24
--- NOTE | 2025-01-19 17:26 | ECG_ITS ---
APPROVED REPORT Exam: Resting ECG HR:130 bpm ECG Measurements Heart Rate 130 AXES UT 145 P 56 QRSd 88 QRS -65 QT 391 T 78 QTc 468 Conclusion SINUS TACHYCARDIA No acute STEMI Electronically signed by : ADRIAN HENDRIX, 01/20/2025 00:05:56
[2025-01-19 17:31] VITALS: BP 199/101; PULSE 137; RESP 18; TEMP 36.9; O2SAT 92; BMI 25.0
[2025-01-19] MEDS: 0.9 % SODIUM CHLORIDE 1000ML 1,000 ML 999 ML IV (17:44)
[2025-01-19 17:49] LABS: Hematocrit 36.9 % (37.0-47.0); Hemoglobin 11.3 g/dL (12.2-16.2); Immature Granulocytes % 0.3 %; Mean Corpuscular HGB Conc 30.6 g/dL (31.8-35.4); Mean Corpuscular Hemoglobin 28.3 pg (27.0-31.2); Mean Corpuscular Volume 92.3 fl (81-99); Nucleated Red Blood Cells % 0 %; Platelet Count 353 K/mm3 (142-424); Red Blood Count 4.00 M/mm3 (4.20-5.40); Red Cell Distribution Width-SD 50.9 fL; White Blood Count 9.9 K/mm3 (4.8-10.8)
[2025-01-19 17:59] LABS: Alanine Aminotransferase 18 U/L (12-78); Albumin Level 4.5 g/dl (3.5-5.0); Albumin/Globulin Ratio 1.6 (1.1-1.8); Alkaline Phosphatase 54 U/L (38-126); Anion Gap 18.0 mEq/L (5-15); Aspartate Amino Transferase 33 U/L (14-36); Bilirubin,Total 0.4 mg/dl (0.2-1.3); Blood Urea Nitrogen 11 mg/dl (7-17); Calcium 11.2 mg/dl (8.4-10.2); Carbon Dioxide 32 mmol/L (22.0-30.0); Chloride 85 mmol/L (98-107); Creatinine Clearance Estimated 52 mL/min (50-200); Creatinine,Serum 0.90 mg/dl (0.52-1.04); Estimated Glomerular Filt Rate 62 ml/min (>60); GFR (African American) 75 ML/MIN (>60); Globulin 2.8 g/dL (1.3-3.2); Glucose 131 mg/dl (74-100); Magnesium 1.7 mg/dl (1.6-2.3); Potassium 4.0 mmoL/L (3.5-5.1); Sodium 131 mmol/L (136-145); Total Protein,Serum 7.3 g/dl (6.3-8.2)
[2025-01-19 18:10] LABS: Troponin I 0.03 ng/ml (0.00-0.034)
[2025-01-19 18:31] VITALS: BP 206/98; PULSE 111; RESP 18; O2SAT 98
[2025-01-19 18:36] VITALS: BP 167/98; PULSE 112; RESP 14; O2SAT 97
[2025-01-19 18:40] VITALS: BP 167/98; PULSE 110; RESP 14; TEMP 36.9; O2SAT 98
[2025-01-19] MEDS: FAMOTIDINE 20MG TABLET 40 MG PO (18:40)
--- NOTE | 2025-01-19 18:46 | XR_ITS ---
PROCEDURE INFORMATION: Exam: XR Chest Exam date and time: 01/19/2025 6:48 PM Age: 69 years old Clinical indication: Other: Tachycardia TECHNIQUE: Imaging protocol: Radiologic exam of the chest. Views: 1 view. COMPARISON: CT ANGIO CHEST PE PROTOCOL 01/12/2025 5:47 PM FINDINGS: Lungs: Unremarkable. No consolidation. Pleural spaces: Unremarkable. No pleural effusion. No pneumothorax. Heart/Mediastinum: Stable cardiomegaly. Bones/joints: Unremarkable. IMPRESSION: No acute findings.
[2025-01-19 19:00] VITALS: BP 194/100; PULSE 105; RESP 22; O2SAT 99
--- NOTE | 2025-01-19 19:40 | PC.NURSE ---
pt reqested help to the bathroom. she refused to get up, stated she didnt want a bed tracey, refused a purewick, she said she had a pull up on and i told her if that was her preference, i would be happy to change her when she was finished. when pt was finished she was cleaned up and a dry depends was put on her.
[2025-01-19 21:07] LABS: Troponin I 0.03 ng/ml (0.00-0.034)
[2025-01-19 21:35] VITALS: BP 196/111; PULSE 110; RESP 21; TEMP 37.1; O2SAT 94
== END 2025-01-19 21:36 | disposition home or self-care (01) ==
PROVIDERS: Physician Assistant; Emergency Provider Emergency Medicine; PCP Nurse Practitioner
DX: R00.0 Tachycardia, unspecified (principal); E87.1 Hypo-osmolality and hyponatremia; F17.210 Nicotine dependence, cigarettes, uncomplicated; I10 Essential (primary) hypertension; J44.9 Chronic obstructive pulmonary disease, unspecified
CPT/HCPCS: 71045; 80053; 83735; 84484; 85025; 93005; 96360; 99285; J7030

== ENCOUNTER 2025-01-27 13:12 | Inpatient (IN) | payer MEDICARE, SELFPAY ==
[2025-01-27] VITALS (7 sets, daily range): BP systolic 163–182; BP diastolic 85–109; PULSE 109–122; RESP 16–25; TEMP 36.6–36.7; O2SAT 93–97; BMI 23.8
--- NOTE | 2025-01-27 13:18 | ED_ITS ---
<Statement entered by Tammy Neal DO - 01/27/25 17:00> I was consulted by the ASHOK, and we discussed the complexity of problems being addressed. I approve the treatment and management plan for this patient's care in the emergency department, thus performing a substantial portion of the medical decision making. Tammy Neal DO Discharge Plan Disposition Chief Complaint: Shortness of Breath/Dyspnea Prescriptions Prescriptions: No Action furosemide 40 mg tablet 40 mg PO DAILY 30 Days Qty: 30 0RF furosemide [Lasix] 20 mg tablet 20 mg PO DAILY Qty: 7 0RF alprazolam 1 mg tablet 1 mg PO BID montelukast 10 mg tablet 10 mg PO PM celecoxib 50 mg capsule 50 mg PO DAILY duloxetine 30 mg capsule,delayed release(DR/EC) 30 mg PO DAILY calcium carbonate-vitamin D3 600 mg-5 mcg (200 unit) tablet 1 tab PO BIDWMEAL gabapentin 800 mg tablet 800 mg PO TID cholecalciferol (vitamin D3) 1,250 mcg (50,000 unit) capsule 1,250 mcg PO WEEKLY albuterol sulfate 90 mcg/actuation HFA aerosol inhaler 2 inh INHALATION Q6H potassium chloride 20 mEq tablet,ER particles/crystals 20 meq PO BID Rx Instructions: with food magnesium gluconate 27 mg magnesium (500 mg) tablet 27 mg PO DAILY Patient Comments: TAKE ONE TABLET BY MOUTH ONCE A DAY Trulance 3 mg tablet 3 mg PO DAILY metoprolol succinate 100 mg Tablet Extended Release 24 Hr 100 mg PO HS 30 Days Qty: 30 0RF fluticasone propion-salmeterol [Advair Diskus] 500-50 mcg/dose Blister With Device 1 inh inhalation BIDRT 30 Days Qty: 60 0RF ipratropium-albuterol 0.5 mg-3 mg(2.5 mg base)/3 mL Solution For Nebulization 3 ml inhalation Q4HP PRN (Reason: Shortness Of Breath Or Wheezing) 30 Days Qty: 90 0RF Eliquis DVT-PE Treat 30D Start 5 mg (74 tabs) tablets,dose pack 5 mg PO BID Qty: 74 0RF digoxin 125 mcg (0.125 mg) tablet 125 mcg PO DAILY Qty: 30 0RF levofloxacin 750 mg tablet 750 mg PO DAILY 3 Days Qty: 2 0RF Rx Instructions: first dose 12/15/24 tiotropium bromide [Spiriva with HandiHaler] 18 mcg Capsule, W/Inhalation Device 1 cap inhalation DAILY Qty: 30 0RF fluticasone propion-salmeterol [Advair Diskus] 500-50 mcg/dose Blister With Device 1 inh inhalation BIDRT 30 Days Qty: 60 0RF prednisone 50 mg tablet 50 mg PO DAILY 5 Days Qty: 5 0RF levofloxacin 750 mg tablet 750 mg PO DAILY 5 Days Qty: 5 0RF Referrals Follow up/Referrals: Provider,Referral, [Primary Care Provider, Medical] - See instructions Clinical Impressions Clinical Impression: Asthenia, Elevated brain natriuretic peptide (BNP) level, Hypercalcemia, JOSÉ MIGUEL (acute kidney injury), Elevated troponin I level, Mass of lung Leukocytosis Qualifiers: Leukocytosis type: unspecified Qualified Code(s): D72.829 - Elevated white blood cell count, unspecified Print Language Print Language: Romanian Discharge ED Provider: Tammy Neal General Adult HPI General Chief complaint: Shortness of Breath/Dyspnea Stated complaint: Weakness Time Seen by Provider: 01/27/25 13:18 History of Present Illness HPI narrative: Patient presents via EMS initially with a chief complaint of weakness . EMS was dispatched to the home as patient's son stated that she was too weak to get out of bed according to EMS. 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 Patient herself states that she has been peeing on herself because she is too weak to get out of the bed. She denies any focal chest pain dyspnea fever chills hemoptysis hematochezia melena she reports 1 episode of vomiting and is complaining of some diffuse abdominal pain. She denies any hemoptysis hematochezia melena hematemesis hematuria or dysuria. Patient also has a history of multiple lung masses suspicious for neoplasm however review of the record shows that she has been declining offers of further workup. Patient has been admitted several times already this year including for pneumonia and respiratory failure secondary to COPD. Related Data Home Medications ?Medication ?Instructions ?Recorded ?Confirmed albuterol sulfate 90 mcg/actuation 2 inh inhalation Q6 H 04/15/24 12/12/24 aerosol inhaler alprazolam 1 mg tablet 1 mg PO BID 04/15/24 5 calcium 600 mg (as 1 tab PO BIDWMEAL 04/15/24 0 12/12/24 carbonate)-vitamin D3 5 mcg (200 unit) tablet celecoxib 50 mg capsule 50 mg PO DAILY 04/15/2411/14 cholecalciferol (vitamin D3) 1,250 1,250 mcg PO WEEKLY 04/15/24 12/12/24 mcg (50,000 unit) capsule duloxetine 30 mg capsule,delayed 30 mg PO DAILY 12/12/24 release gabapentin 800 mg tablet 800 mg PO TID 04/15/2412/12 montelukast 10 mg tablet 10 mg PO PM 04/15/24 5 potassium chloride 20 mEq 20 meq PO BID 04/15/2412/12 tablet,extended release(part/cryst) magnesium gluconate 27 mg 27 mg PO DAILY 11/29/2411/14 magnesium (500 mg) tablet plecanatide 3 mg tablet (Trulance) 3 mg PO DAILY 11/2912/12/24 Previous Rx's ?Medication ?Instructions ?Recorded furosemide 40 mg tablet 40 mg PO DAILY 30 days #30 t abs 08/16/24 apixaban 5 mg (74 tabs) tablets in 5 mg PO BID #74 tab s 12/01/24 a dose pack ([employer] DVT-PE Treat 30D Start) digoxin 125 mcg (0.125 mg) tablet 125 mcg PO DAILY #30 tabs 12/01/24 fluticasone 500 mcg-salmeterol 50 1 inh inhalation BID RT 30 days #60 12/01/24 mcg/dose blistr powdr for ea inhalation (Advair Diskus) ipratropium 0.5 mg-albuterol 3 mg 3 ml inhalation Q4HP PRN Shortness 12/01/24 (2.5 mg base)/3 mL nebulization Of Breath Or Wheezing 30 days #90 soln mL metoprolol succinate 100 mg 100 mg PO HS 30 days #30 t abs 12/01/24 tablet,extended release 24 hr levofloxacin 750 mg tablet 750 mg PO DAILY 3 days #2 t abs 12/14/24 fluticasone 500 mcg-salmeterol 50 1 inh inhalation BID RT 30 days #60 12/18/24 mcg/dose blistr powdr for ea inhalation (Advair Diskus) tiotropium bromide 18 mcg capsule 1 cap inhalation AURELIA LY #30 blisters 12/18/24 with inhalation device (Spiriva with HandiHaler) levofloxacin 750 mg tablet 750 mg PO DAILY 5 days #5 t abs 12/23/24 prednisone 50 mg tablet 50 mg PO DAILY 5 days #5 tab s 12/23/24 furosemide 20 mg tablet (Lasix) 20 mg PO DAILY #7 tabs 01/04/25 Allergies Allergy/AdvReac Type Severity Reaction Status Date / Time No Known Allergies Allergy Verified 11/17/24 15:18 [facility] Disclaimer: The information contained in this section may have been updated after the patient was seen, as this information can be updated by other users. Medical History Pneumonia Fecal occult blood test positive Sepsis without septic shock Lymphedema Physical deconditioning General weakness Lung mass Hypomagnesemia Acute hypokalemia Chronic hyponatremia Generalized weakness COPD mixed type Lung nodule Hypokalemia Elevated troponin COPD (chronic obstructive pulmonary disease) Nocturnal hypoxemia Pulmonary emphysema Incidental pulmonary nodule, greater than or equal to 8mm Smoking greater than 30 pack years Dyspnea on exertion Tobacco abuse disorder Tobacco abuse counseling COPD (chronic obstructive pulmonary disease) Cervical cancer Surgical History History of dilation and curettage History of back surgery Family History Diabetes Social History (Updated 12/18/24 @ 11:32 by Canelo Power CRNA) Smoking Status: Current every day smoker tobacco type: cigarettes packs per day: 2 second hand exposure: Yes alcohol intake: current alcohol intake frequency: 0-2 drinks per day substance use type: denies use current occupational status: unemployed Travel in the last 8 weeks?: None household members: spouse housing: house current occupational exposures/hazards: No Have you lived/traveled outside US in past 30 days?: No Contact w/someone who lives/traveled outside US past 30 days?: No Exposure to someone with infectious disease in past 14 days?: No Do you have a fever (greater than 100.4 F or 38 C)?: No Have you tested positive for COVID-19?: No Exposed to someone with COVID-19 in past 14 days?: No Do you have a sore throat?: No Do you have a cough?: No Do you have any weakness?: No Do you have any diarrhea?: No Are you experiencing any unusual bleeding?: No Do you have any muscle aches/pain?: No Do you have any abdominal pain?: No Are you experiencing loss of taste or smell?: No Other Medical History Have you received the Flu Vaccine for this season: No Have you received the Pneumonia Vaccine: No ROS Obtained: Yes Systems reviewed as appropriate & no additional complaints except as documented Physical Exam General General appearance: alert Respiratory Respiratory exam: Absent respiratory distress or accessory muscle use Cardiovascular Cardiovascular exam: Present tachycardia Neurological Exam Neurological exam: Present alert and oriented X3 Medical Decision Making Medical Records Medical records reviewed: Yes I reviewed the patient's medical records. Screening: Per USPSTF and CDC recommendations, given the prevalence of disease in our region, it is our hospital?s policy to screen for HIV and viral Hepatitis for all patients aged 18 and over and those with ongoing risk factors. Azael Inquiry Pt receiving controlled substance: No Vital Signs: 01/27/25 13:22 01/27/25 13:30 01/27/25 14:30 Temperature 98.1 F Temperature Source Axillary Pulse Rate 120 H Pulse Rate [Right Radial] 122 H Respiratory Rate 20 21 22 Blood Pressure 182/101 H 163/92 H Blood Pressure [Right Arm] 169/109 H Blood Pressure Mean 128 Blood Pressure Mean [Right Arm] 129 Blood Pressure Source [Right Arm] Automatic Cuff Blood Pressure Position [Right Arm] Supine 02 Sat by Pulse Oximetry 97 95 Oxygen Delivery Method Nasal Cannula Oxygen Flow Rate (LPM) 2 Lab Data Lab results reviewed: Yes I reviewed the patient's lab results. Lab Results 01/27/25 13:35: VBG pH 7.45 H, VBG pCO2 48.4, VBG pO2 172.6 H, VBG HCO3 33.0 H, VBG Total CO2 34.5 H, VBG O2 Saturation 99.6 H, VBG Base Excess 9.1 H, VBG Lactic Acid 2.5 H 01/27/25 13:38: Urine Color Yellow, Urine Appearance Clear, Urine pH 7.5, Ur Specific Virgil 1.010, Urine Protein Negative, Urine Glucose (UA) Negative, Urine Ketones Negative, Urine Blood Negative, Urine Nitrate Negative, Urine Bilirubin Negative, Urine Urobilinogen 0.2, Ur Leukocyte Esterase Negative, Urine RBC Occasional, Urine WBC Occasional, Ur Squamous Epith Cells None, Urine Bacteria None 01/27/25 13:40: Chlamy pneumoniae PCR Not detected, Adenovirus (PCR) Not detected, B. pertussis DNA (PCR) Not detected, Coronavirus OC43 (PCR) Not detected, Coronavirus HKU1 (PCR) Not detected, Coronavirus 229E (PCR) Not detected, SARS-CoV-2 (PCR) Not detected, Coronavirus NL63 (PCR) Not detected, Human Metapneumovir PCR Not detected, Influenza A (H1) PCR Not detected, Influ A (H1N1/09) PCR Not detected, Influenza A (H3) PCR Not detected, Influenza Type A (PCR) Not detected, Influenza Type B (PCR) Not detected, M. pneumoniae (PCR) Not detected, Parainfluenza 1 (PCR) Not detected, Parainfluenza 2 (PCR) Not detected, Parainfluenza 3 (PCR) Not detected, Parainfluenza 4 (PCR) Not detected, RSV (PCR) Not detected, Entero/Rhino (PCR) Not detected 01/27/25 : WBC 13.3 H, RBC 3.95 L, Hgb 11.3 L, Hct 37.8, MCV 95.7, MCH 28.6, M CHC 29.9 L, RDW 14.7, Plt Count 273, MPV 9.4, Neut % (Auto) 74.1, Lymph % (Auto) 18.5, Ector % (Auto) 5.2, Eos % (Auto) 0.8, Baso % (Auto) 0.5, Neut # (Auto) 9.9 H, Lymph # (Auto) 2.5, Ector # (Auto) 0.7, Eos # (Auto) 0.1, Baso # (Auto) 0.1, PT 10.4, INR 0.93, Sodium 136, Potassium 4.9, Chloride 91 L, Carbon Dioxide 38 H , Anion Gap 11.9, BUN 22 H, Creatinine 1.30 H, Estimated Creat Clear 38, E stimated GFR 41 L, Est GFR ( Amer) 49 L, Glucose 114 H, Calcium 13.2 H*, Magnesium 1.9, Total Bilirubin 0.6, AST 31, ALT 11 L, Alkaline Phosphatase 67, T roponin I 0.08 H, NT-Pro-B Natriuret Pep 58813 H, Total Protein 6.8, Albumin 4.0, Globulin 2.8, Albumin/Globulin Ratio 1.4, Procalcitonin 0.260 01/27/25 Unknown 01/27/25 Unknown Orders (Tests/Meds): ED MEDICATIONS Generic Name Dose Route Start Last Admin Trade Name Luisq PRN Reason Stop Dose Admin Ceftriaxone Sodium 2 gm/ 100 mls @ 200 mls/hr 01/27/25 15:30 Sodium Chloride IV 02/06/25 15:29 Q24H VICENTE Sodium Chloride 10 ml 01/27/25 14:01 01/27/25 14:02 Sodium Chloride 0.9% 10ml Syr (Rad Only) IV 02/26/25 14:00 10 ml NEEDED PRN Administration Maintain IV Site Sodium Chloride 3 ml 01/27/25 15:10 Sodium Chloride 3% 15ml Neb IH 02/26/25 15:09 ONCE PRN INDUCE SPUTUM COLLECTION Discontinued Medications Generic Name Dose Route Start Last Admin Trade Name Anatoly PRN Reason Stop Dose Admin Albuterol/Ipratropium 9 ml 01/27/25 15:10 Ipratropium/Albuterol 3 Ml Neb IH 01/27/25 15:11 ONCE ONE Dexamethasone Sodium Phosphate 10 mg 01/27/25 15:10 Dexamethasone 4mg/Ml 5ml Mdv IV 01/27/25 15:11 ONCE ONE Sodium Chloride 1,000 mls @ 999 mls/hr 01/27/25 13:22 01/27/25 14:13 Sod Chlor 0.9% 1000ml Bag IV 01/27/25 14:22 999 mls/hr .Q1H1M ONE Administration Magnesium Sulfate 2 gm in 50 mls @ 50 mls/hr 01/27/25 13:23 01/27/25 14:12 Magnesium Sulfate 2gm/50ml Premix IV 01/27/25 14:22 50 mls/hr ONCE ONE Administration Azithromycin 500 mg/ Sodium 250 mls @ 250 mls/hr 01/27/25 15:17 Chloride IV 01/27/25 15:18 ONCE ONE Iopamidol 70 ml 01/27/25 14:01 01/27/25 14:02 Iopamidol-370 (76%);100ml Bottle IV 01/27/25 14:02 70 ml ONCE ONE Administration Ondansetron HCl 4 mg 01/27/25 13:22 01/27/25 14:12 Ondansetron 4mg/2ml Vial IV 01/27/25 13:23 4 mg ONCE ONE Administration Sodium Chloride 40 ml 01/27/25 14:01 01/27/25 14:02 0.9 % Sodium Chloride 50 Ml Vial IV 01/27/25 14:02 40 ml ONCE ONE Administration ORDERS Category Date Time Status CT abdomen pelvis w con Stat Cat Scan 01/27/25 13:[address] angio chest PE protocol Stat Cat Scan 01/27/25 13:22 Completed BNP [NT Pro Brain Natriuretic Pep.] Stat Lab 01/27/25 Completed CBC w/Auto Diff [Complete Blood Count Auto Diff] Stat Lab 01/27/25 Completed CMP [Comprehensive Metabolic Panel] Stat Lab 01/27/25 Completed Full Resp Panel w/COVID ([facility]) Routine Lab 01/27/25 13:40 Completed INR [Prothrombin Time INR] Stat Lab 01/27/25 Completed Magnesium Stat Lab 01/27/25 Completed Procalcitonin Stat Lab 01/27/25 Completed Trop I [Troponin I] Stat Lab 01/27/25 Completed Troponin I Q3H Lab 01/27/25 16:30 Ordered Troponin I Q3H Lab 01/27/25 19:30 Ordered UA [Urinalysis and Microscopic] Stat Lab 01/27/25 13:38 Completed Blood Culture Stat Micro 01/27/25 15:11 Ordered Sputum Culture & Gram Stain Stat Micro 01/27/25 15:10 Ordered VBG [Venous Blood Gas] Stat RT 01/27/25 13:35 Completed Tissue Perfus/Sepsis Re-Eval Sepsis Re-Evaluation Performed: Yes Date Performed: 01/27/25 Time Performed: 15:39 HEART Score History (anamnesis): Slightly suspicious ECG: Non-specific disturbance Age: >65 years Risk factors: 3 or more risk factors Troponin: 1-3x normal limit HEART Score: 6 Medical Decision Narrative: In summary patient is a 69-year-old female who presents to the emergency department for evaluation of weakness and shortness of breath. Patient is initially normotensive with a blood pressure 169/100 nontachycardic at 122 with sinus tachycardia on the bedside monitor breathing 20 times a minute satting at 97% on 2 L by nasal cannula now upon arrival, afebrile at 98.1.. Physical exam reveals a chronically ill appearing much older than stated age appearing 69-year-old female who is currently in no acute distress. Patient is almost 2- week to have coherent speech although I do not know her normal functional baseline. She does not however have any focal neurologic deficits and her answers are appropriate. Pupils equal round reactive to light, patient moves all 4 extremities independently. Breath sounds reveals diffuse coarse rhonchi and wheezes end expiratory but no accessory muscle use or increased work of breathing. Patient is actually too weak to sit up independently however. I noticed that she has what appears to be dried vomit along the sides of her mouth.. Differential diagnosis includes aspiration pneumonia versus COPD exacerbation versus PE versus gastroenteritis versus electrolyte abnormalities etc. Initial workup will be conducted with hematologic labs twelve-lead EKG CT PE protocol CT abdomen and pelvis VBG blood culture sputum culture.. Initial interventions include crystalloid bolus and DuoNeb. Initial workup reviewed by me and patient has a white count of 13.3 and H&H of 11.3 and 37.8 respectively with an absolute neutrophil count of 9.9, VBG shows a pH of 7.45 pCO2 of 48.4 with a VBG lactic acid of 2.5, BUN is 22 creatinine is 1.3 GFR is 41, calcium is 13.2 which is accurate given a normal albumin of 4, initial troponin is 0.08, her NT proBNP is 13,300, procalcitonin is 0.260, urinalysis is bland, full respiratory panel is negative, and my informal interpretation of her CT imaging shows no evidence of thrombus and shows multi nodular masses in both lungs that are very worrisome for neoplasm but no other acute process identified prior to radiology read. Please see final read for formal interpretation.. Upon repeat evaluation patient remains tachycardic after fluid challenge and is still very weak but her Glascow coma score is 15.. Given this, I started the patient on Rocephin and azithromycin and then had a interactive discussion with hospital medicine regarding patient presentation workup and management and she will be admitted for further evaluation and care. Critical Care Critical Care Time Critical Care Time: Yes Attestation: On 01/27/25, the high probability of a clinically significant, sudden or life threatening deterioration of the following system(s) required my full and direct attention, intervention and personal management. The time I documented below is in addition to time spent performing reported procedures but includes the following listed in this critical care notation. Total Time Total Critical Care Time: 30
--- OUTSIDE RECORDS SUMMARY | 2025-01-27 13:20 | XMS_ITS | Clinical Summary ---
Author Organization [employer] ([place], [place], [place], [place]) Address [address] [place] [address] Care Team Providers Care Cath Lab Name Role Phone Rajat Navarro MD Primary Care Provider [phone] Allergies No known active allergies Medications albuterol [...] the past 12 months, has t he [employer], gas, oil, or water company threatened to [...] Do you speak a language other than [place] Islander at [facility]? No 10/07/2024 Do [...] Advance Directives For more information, please contact: [phone] * Full Code (Latest Code Status on File) Date Activated Date Inactivated Comments 10/06/2024 8:39 PM 10/09/2024 6:04 PM Care Teams Cath Lab Relationship Specialty Start Date End Date Rajat Navarro MD [address] [place] [id number] PCP - General Family Medicine 07/09/24
--- OUTSIDE RECORDS SUMMARY | 2025-01-27 13:20 | XMS_ITS | Referral Summary ---
Author Organization [employer] ([place], [place], [place], [place]) Address [address] [place] [address] Care Team Providers Care Manager Utilization Review Name Role Phone Rajat Navarro MD Primary Care Provider [phone] Allergies No known active allergies Medications albuterol [...] the past 12 months, has t he [employer], gas, oil, or water company threatened to [...] Do you speak a language other than Gu[place]ian at [facility]? No 10/07/2024 Do you want help with [...] of Treatment Not on file Insurance [employer] [facility] ADV Advance Directives For more information, please contact: [phone] * Full Code (Latest Code Status on File) Date Activated Date Inactivated Comments 10/06/2024 8:39 PM 10/09/2024 6:04 PM Care Teams Manager Utilization Review Relationship Specialty Start Date End Date Rajat Navarro MD [address] [place] [id number] PCP - General Family Medicine 07/09/24
--- OUTSIDE RECORDS SUMMARY | 2025-01-27 13:20 | XMS_ITS | Clinical Summary ---
Author Organization [facility] Address [address] [place] [address] Care Team Providers Care Coronary Clinical Specialist Name Role Phone Rajat Navarro MD Primary Care Provider [phone] Social History Tobacco Use Types Packs/Day Years [...] 2005 UKY-Zoster Vaccines (1 of 2) 2005 TNP-KBSNP-22 Vaccine ( - 2023- season) 2024 05/24/2021, [...] this topic Insurance [employer] MEDICARE Care Teams Coronary Clinical Specialist Relationship Specialty Start Date End Date Rajat Navarro MD [address] [place] [address] [address] [id number] PCP - General 07/15/20
--- OUTSIDE RECORDS SUMMARY | 2025-01-27 13:20 | XMS_ITS | Clinical Summary ---
Author Organization [facility] Address [address] [place] [address] Phone Care Team Providers Care Sleeve Tailor Name Role Phone Unavailable Unavailable Conditions or Problems No information available. Medications No information available. Medications Administered No information available. Allergies, Adverse Reactions, Alerts No information available. Results No information available. Plan of Care No information available. Procedures No information available. Vital Signs No information available. Immunizations No information available. Advance Directives No information available.
--- NOTE | 2025-01-27 13:22 | CT_ITS ---
FINAL REPORT TECHNIQUE: IV contrast enhanced exam This study was performed with techniques to keep radiation doses as low as reasonably achievable, (ALARA). Individualized dose reduction techniques using automated exposure control or adjustment of mA and/or kV according to the patient''s size were employed. CLINICAL HISTORY: Nausea vomiting weakness COMPARISON: 07/28/2024 FINDINGS: Abdomen: Moderate hiatal hernia is stable. There are bilateral renal cysts without hydronephrosis. There is extensive perinephric stranding, similar to the prior study. Remaining solid organs are negative. The gallbladder is unremarkable. There is advanced calcified plaque disease involving the mesenteric and renal arteries. Stenoses of these branch vessels is suspected. No evidence of bowel obstruction or bowel wall thickening. There is no free air. No fluid collection is seen. There is no adenopathy. Pelvis: Fecal impaction of the rectal vault is present but improved from the previous exam. There has been resolution of wall thickening of the rectal vault noted on the prior exam. The appendix is not seen. The uterus and ovaries are unremarkable. The urinary bladder is normal. There is no free fluid. No pelvic mass is seen. IMPRESSION: No evidence of bowel obstruction or acute inflammatory change. Moderate fecal impaction of the rectosigmoid colon improved. Reviewed, Interpreted and Dictated by Cecile Chambers MD Transcribed by Josee Smith Authenticated and . [facility]
--- NOTE | 2025-01-27 13:22 | CT_ITS ---
FINAL REPORT TECHNIQUE: Postcontrast axial images of the chest were performed in a CTA protocol. This study was performed with techniques to keep radiation doses as low as reasonably achievable, (ALARA). Individualized dose reduction technique using automated exposure control or adjustment of mA and/or kV according to the patient's size were employed. CLINICAL HISTORY: Tachycardia nausea vomiting weakness COMPARISON: 01/12/2025 FINDINGS: The heart is normal in size. No adenopathy is identified. No pleural or pericardial effusion is identified. The thoracic aorta is normal in caliber with no focal aneurysm or dissection identified. There is no filling defect to suggest pulmonary embolism. Spiculated opacities are again seen in the bilateral upper lungs, similar to prior exam. IMPRESSION: No evidence for PE on this exam. Stable, multifocal opacities which could be neoplastic or inflammatory. Reviewed, Interpreted and Dictated by Cecile Chambers MD Transcribed by Elizabeth Cifuentes Authenticated and [facility]
--- NOTE | 2025-01-27 13:25 | ECG_ITS ---
APPROVED REPORT Exam: Resting ECG HR:122 bpm ECG Measurements Heart Rate 122 AXES NE 129 P 79 QRSd 82 QRS -74 QT 308 T 73 QTc 381 Conclusion Sinus tachycardia at [address] or T wave changes concerning for ischemia Electronically signed by : Tammy Neal, 01/27/2025 17:53:41
[2025-01-27 13:33] LABS: VBG HCO3 33.0 mmol/L (23-30); VBG PCO2 48.4 mmol/L (35-51); VBG PH 7.45 mmol/L (7.31-7.41); VBG PO2 172.6 mmol/L (28-40)
[2025-01-27 13:34] LABS: Hematocrit 37.8 % (37.0-47.0); Hemoglobin 11.3 g/dL (12.2-16.2); Immature Granulocytes % 0.9 %; Mean Corpuscular HGB Conc 29.9 g/dL (31.8-35.4); Mean Corpuscular Hemoglobin 28.6 pg (27.0-31.2); Mean Corpuscular Volume 95.7 fl (81-99); Nucleated Red Blood Cells % 0 %; Platelet Count 273 K/mm3 (142-424); Red Blood Count 3.95 M/mm3 (4.20-5.40); Red Cell Distribution Width-SD 51.7 fL; White Blood Count 13.3 K/mm3 (4.8-10.8)
[2025-01-27 13:36] LABS: Alanine Aminotransferase 11 U/L (12-78); Albumin Level 4.0 g/dl (3.5-5.0); Albumin/Globulin Ratio 1.4 (1.1-1.8); Alkaline Phosphatase 67 U/L (38-126); Anion Gap 11.9 mEq/L (5-15); Aspartate Amino Transferase 31 U/L (14-36); Bilirubin,Total 0.6 mg/dl (0.2-1.3); Blood Urea Nitrogen 22 mg/dl (7-17); Carbon Dioxide 38 mmol/L (22.0-30.0); Chloride 91 mmol/L (98-107); Creatinine Clearance Estimated 38 mL/min (50-200); Creatinine,Serum 1.30 mg/dl (0.52-1.04); Estimated Glomerular Filt Rate 41 ml/min (>60); GFR (African American) 49 ML/MIN (>60); Globulin 2.8 g/dL (1.3-3.2); Glucose 114 mg/dl (74-100); Magnesium 1.9 mg/dl (1.6-2.3); Potassium 4.9 mmoL/L (3.5-5.1); Sodium 136 mmol/L (136-145); Total Protein,Serum 6.8 g/dl (6.3-8.2)
[2025-01-27 13:36] LABS: Lactate Venous 2.5 mmol/L (0.4-2.0)
[2025-01-27 13:40] LABS: Calcium 13.2 mg/dl (8.4-10.2)
[2025-01-27 13:41] LABS: Adenovirus,PCR Not Detected (NotDetected); Chlamydophila Pneumoniae, PCR Not Detected (NotDetected); Coronavirus 19, PCR Not Detected (NotDetected); Coronovirus HKU1,PCR Not Detected (NotDetected); Influenza A, PCR Not Detected (NotDetected); Influenza AH1, 2009 Not Detected (NotDetected); Influenza AH1, PCR Not Detected (NotDetected); Influenza AH3,PCR Not Detected (NotDetected); Influenza B, PCR Not Detected (NotDetected); Mycoplasma Pneumoniae, PCR Not Detected (NotDetected); Parainfluenza 1, PCR Not Detected (NotDetected); Parainfluenza 2, PCR Not Detected (NotDetected); Parainfluenza 3, PCR Not Detected (NotDetected); Parainfluenza 4, PCR Not Detected (NotDetected)
[2025-01-27 13:41] LABS: Microscopic, Urine URINE MICROSCOPIC (MICROSCOPIC)
[2025-01-27 13:48] LABS: Bilirubin,Urine Negative (Negative); Color,Urine YELLOW (Yellow); Glucose,Urine (UA) Negative (Negative); Ketones,Urine Negative (Negative); Leukocyte Esterase,Urine Negative (Negative); PH,Urine 7.5 (5.0-8.5); Protein,Urine Negative (Negative); Specific Gravity, Urine 1.010 (1.005-1.030); Urobilinogen,Urine 0.2 EU/dl (0.2)
[2025-01-27 13:48] LABS: NT Pro Brain Natriuretic Pep. 13300 pg/mL (0-125); Troponin I 0.08 ng/ml (0.00-0.034)
[2025-01-27 13:52] LABS: INR 0.93 (0.9-1.1); Prothrombin Time 10.4 seconds (10.1-12.5)
[2025-01-27 13:53] LABS: Procalcitonin 0.260 ng/mL (0.0-2.0)
[2025-01-27 13:57] LABS: RBC,Urine Occasional #/hpf (0-3); WBC,Urine Occasional #/hpf (0-3)
[2025-01-27] MEDS: 0.9 % SODIUM CHLORIDE 50 ML VIAL 40 ML IV (14:02)
[2025-01-27] MEDS: IOPAMIDOL-370 (76%);100ML BOTTLE 70 ML IV (14:02)
[2025-01-27] MEDS: SODIUM CHLORIDE 0.9% 10ML SYR (RAD ONLY) 10 ML IV (14:02)
[2025-01-27] MEDS: ONDANSETRON 4MG/2ML VIAL 4 MG IV (14:12)
[2025-01-27] MEDS: MAGNESIUM SULFATE IN WATER 2 GM/50 ML PIGGYBACK IV (14:12)
[2025-01-27] MEDS: 0.9 % SODIUM CHLORIDE 1000ML 1,000 ML 999 ML IV (14:13)
--- NOTE | 2025-01-27 15:36 | PC.NURSE ---
live in housekeeper nanny contacted for bed.
[2025-01-27] MEDS: DEXAMETHASONE 4MG/ML 5ML MDV 10 MG IV (15:50)
[2025-01-27] MEDS: IPRATROPIUM/ALBUTEROL 3 ML NEB 9 ML IH (15:51)
--- NOTE | 2025-01-27 16:40 | EXP.HP ---
History of Present Illness *Admission Date: 01/27/25 *Reason for visit:: Weakness *History of present illness: Iqra Balbuena is a 69-year-old female with medical history significant for COPD on 2 L baseline, bilateral pulmonary emboli, pulmonary nodules concerning for malignancy (patient declines workup, treatment), A-fib, PAD, hypertension, anxiety/depression presents with several day onset of weakness, poor oral intake. Patient states she has not had a appetite in the past few days, denies any focal symptoms. Son at bedside corroborates the story. Workup in the ED significant for creatinine 1.3 (Baseline 0.90, WBC 13.2, calcium 13.2, troponin 0.08, BNP 13,300. Patient appears very weak on exam. She was given 1 L LR bolus, ceftriaxone, azithromycin. Case discussed with ED provider and she was made to admit patient for physical deconditioning, hypercalcemia, JOSÉ MIGUEL, NSTEMI. [facility] Disclaimer: The information contained in this section may have been updated after the patient was seen, as this information can be updated by other users. Medical History (Updated 01/27/25 @ 17:11 by Verenice Carroll, FIGUEROA) HTN (hypertension) HLD (hyperlipidemia) Pneumonia Fecal occult blood test positive Sepsis without septic shock Lymphedema Physical deconditioning General weakness Lung mass Hypomagnesemia Acute hypokalemia Chronic hyponatremia Generalized weakness COPD mixed type Lung nodule Hypokalemia Elevated troponin Nocturnal hypoxemia Pulmonary emphysema Incidental pulmonary nodule, greater than or equal to 8mm Smoking greater than 30 pack years Dyspnea on exertion Tobacco abuse disorder Tobacco abuse counseling Cervical cancer Surgical History History of dilation and curettage History of back surgery Family History Diabetes Social History (Updated 01/27/25 @ 16:54 by Verenice Carroll RN) Smoking Status: Current every day smoker tobacco type: cigarettes packs per day: 2 second hand exposure: Yes alcohol intake: never substance use type: denies use current occupational status: unemployed Travel in the last 8 weeks?: None household members: spouse housing: house current occupational exposures/hazards: No Have you lived/traveled outside [place] in past 30 days?: No Contact w/someone who lives/traveled outside US past 30 days?: No Exposure to someone with infectious disease in past 14 days?: No Do you have a fever (greater than 100.4 F or 38 C)?: No Have you tested positive for COVID-19?: No Exposed to someone with COVID-19 in past 14 days?: No Do you have a sore throat?: No Do you have a cough?: Yes Do you have any weakness?: No Are you experiencing any nausea/vomitting?: No Do you have any diarrhea?: No Are you experiencing any unusual bleeding?: No Do you have any muscle aches/pain?: No Do you have any abdominal pain?: No Are you experiencing loss of taste or smell?: No Other Medical History Have you received the Flu Vaccine for this season: No Have you received the Pneumonia Vaccine: No Meds Home Medications and Allergies Home Medications ?Medication ?Instructions ?Recorded ?Confirmed ?Type albuterol sulfate 90 mcg/actuation 2 inh inhalation Q6H 04/15/24 12/12/24 History aerosol inhaler alprazolam 1 mg tablet 1 mg PO BID 04/15/24 12/12/24 History calcium 600 mg (as 1 tab PO BIDWMEAL 04/15/24 12/12/24 History carbonate)-vitamin D3 5 mcg (200 unit) tablet celecoxib 50 mg capsule 50 mg PO DAILY 04/15/24 12/12/24 History cholecalciferol (vitamin D3) 1,250 1,250 mcg PO WEEKLY 04/15/24 12/12/24 History mcg (50,000 unit) capsule duloxetine 30 mg capsule,delayed 30 mg PO DAILY 04/15/24 12/12/24 History release gabapentin 800 mg tablet 800 mg PO TID 04/15/24 12/12/24 History montelukast 10 mg tablet 10 mg PO PM 04/15/24 12/12/24 History potassium chloride 20 mEq 20 meq PO BID 04/15/24 12/12/24 History tablet,extended release(part/cryst) furosemide 40 mg tablet 40 mg PO DAILY 30 days #30 tabs 08/16/24 12/12/24 Rx magnesium gluconate 27 mg 27 mg PO DAILY 11/29/24 12/12/24 History magnesium (500 mg) tablet plecanatide 3 mg tablet (Trulance) 3 mg PO DAILY 11/29/24 12/12/24 History apixaban 5 mg (74 tabs) tablets in 5 mg PO BID #74 tabs 12/01/24 12/12/24 Rx a dose pack (Eliquis DVT-PE Treat 30D Start) digoxin 125 mcg (0.125 mg) tablet 125 mcg PO DAILY #30 tabs 12/01/24 12/12/24 Rx fluticasone 500 mcg-salmeterol 50 1 inh inhalation BIDRT 30 days #60 12/01/24 12/12/24 Rx mcg/dose blistr powdr for ea inhalation (Advair Diskus) ipratropium 0.5 mg-albuterol 3 mg 3 ml inhalation Q4HP PRN Shortness 12/01/24 12/12/24 Rx (2.5 mg base)/3 mL nebulization Of Breath Or Wheezing 30 days #90 soln mL metoprolol succinate 100 mg 100 mg PO HS 30 days #30 tabs 12/01/24 12/12/24 Rx tablet,extended release 24 hr levofloxacin 750 mg tablet 750 mg PO DAILY 3 days #2 tabs 12/14/24 Rx fluticasone 500 mcg-salmeterol 50 1 inh inhalation BIDRT 30 days #60 12/18/24 Rx mcg/dose blistr powdr for ea inhalation (Advair Diskus) tiotropium bromide 18 mcg capsule 1 cap inhalation DAILY #30 blisters 12/18/24 Rx with inhalation device (Spiriva with HandiHaler) levofloxacin 750 mg tablet 750 mg PO DAILY 5 days #5 tabs 12/23/24 Rx prednisone 50 mg tablet 50 mg PO DAILY 5 days #5 tabs 12/23/24 Rx furosemide 20 mg tablet (Lasix) 20 mg PO DAILY #7 tabs 01/04/25 Rx New Prescriptions to Start Prescriptions: Allergies Allergy/AdvReac Type Severity Reaction Status Date / Time No Known Allergies Allergy Verified 11/17/24 15:18 Exam Data for Last 24 hours Vital signs and Labs for Last 24 Hours: Temp Pulse Resp BP Pulse Ox O2 Del Method O2 Flow Rate 97.9 F 109 H 20 163/85 H 95 Nasal Cannula 2 01/27/25 15:57 01/27/25 15:57 01/27/25 15:57 01/27/25 15:57 01/27/25 13:30 01/27/25 15:57 01/27/25 15:57 Laboratory Results - last 24 hr 01/27/25 13:35: VBG pH 7.45 H, VBG pCO2 48.4, VBG pO2 172.6 H, VBG HCO3 33.0 H, VBG Total CO2 34.5 H, VBG O2 Saturation 99.6 H, VBG Base Excess 9.1 H, VBG Lactic Acid 2.5 H 01/27/25 13:38: Urine Color Yellow, Urine Appearance Clear, Urine pH 7.5, Ur Specific Nabb 1.010, Urine Protein Negative, Urine Glucose (UA) Negative, Urine Ketones Negative, Urine Blood Negative, Urine Nitrate Negative, Urine Bilirubin Negative, Urine Urobilinogen 0.2, Ur Leukocyte Esterase Negative, Urine RBC Occasional, Urine WBC Occasional, Ur Squamous Epith Cells None, Urine Bacteria None 01/27/25 13:40: Chlamy pneumoniae PCR Not detected, Adenovirus (PCR) Not detected, B. pertussis DNA (PCR) Not detected, Coronavirus OC43 (PCR) Not detected, Coronavirus HKU1 (PCR) Not detected, Coronavirus 229E (PCR) Not detected, SARS-CoV-2 (PCR) Not detected, Coronavirus NL63 (PCR) Not detected, Human Metapneumovir PCR Not detected, Influenza A (H1) PCR Not detected, Influ A (H1N1/09) PCR Not detected, Influenza A (H3) PCR Not detected, Influenza Type A (PCR) Not detected, Influenza Type B (PCR) Not detected, M. pneumoniae (PCR) Not detected, Parainfluenza 1 (PCR) Not detected, Parainfluenza 2 (PCR) Not detected, Parainfluenza 3 (PCR) Not detected, Parainfluenza 4 (PCR) Not detected, RSV (PCR) Not detected, Entero/Rhino (PCR) Not detected 01/27/25 : WBC 13.3 H, RBC 3.95 L, Hgb 11.3 L, Hct 37.8, MCV 95.7, MCH 28.6, MCHC 29.9 L, RDW 14.7, Plt Count 273, MPV 9.4, Neut % (Auto) 74.1, Lymph % (Auto) 18.5, Shackelford % (Auto) 5.2, Eos % (Auto) 0.8, Baso % (Auto) 0.5, Neut # (Auto) 9.9 H, Lymph # (Auto) 2.5, Shackelford # (Auto) 0.7, Eos # (Auto) 0.1, Baso # (Auto) 0.1, PT 10.4, INR 0.93, Sodium 136, Potassium 4.9, Chloride 91 L, Carbon Dioxide 38 H, Anion Gap 11.9, BUN 22 H, Creatinine 1.30 H, Estimated Creat Clear 38, Estimated GFR 41 L, Est GFR ( Amer) 49 L, Glucose 114 H, Calcium 13.2 H*, Magnesium 1.9, Total Bilirubin 0.6, AST 31, ALT 11 L, Alkaline Phosphatase 67, Troponin I 0.08 H, NT-Pro-B Natriuret Pep 25967 H, Total Protein 6.8, Albumin 4.0, Globulin 2.8, Albumin/Globulin Ratio 1.4, Procalcitonin 0.260 I & O for Last 24 hours: Intake & Output 01/24/25 01/25/25 01/26/25 01/27/25 23:59 23:59 23:59 23:59 Weight 58.967 kg Constitutional Constitutional: no acute distress and chronically ill appearing *Routine HEENT Exam Head: Present normocephalic Eye: Present EOMI and PERRL ENT: Present mucous membranes moist *Routine Neck Exam Neck: Present supple; Absent lymphadenopathy *Routine Respiratory Exam Respiratory: Present CTA bilaterally *Routine Cardiovascular Exam Cardiovascular: Present RRR *Routine Abdominal Exam Abdominal: Present soft and normoactive bowel sounds; Absent tenderness *Routine Rectal Exam Rectal:: deferred *Routine Genitalia Exam Genitalia:: deferred *Routine Extremities Exam Extremities: Absent cyanosis, clubbing or edema *Routine Skin Exam Skin: Present warm; Absent rash *Routine Neurological Exam Neurological: Present alert and oriented X3 Assessment and Plan *Assessment and plan (1) JOSÉ MIGUEL (acute kidney injury): Status: Acute Category: Medical Code(s): N17.9 - Acute kidney failure, unspecified (2) Hypercalcemia: Status: Acute Category: Medical Code(s): E83.52 - Hypercalcemia Plan Iqra Balbuena is a 69-year-old female with medical history significant for COPD on 2 L baseline, bilateral pulmonary emboli, pulmonary nodules concerning for malignancy (patient declines workup, treatment), A-fib, PAD, hypertension, anxiety/depression presents with several day onset of weakness, poor oral intake. Patient states she has not had a appetite in the past few days, denies any focal symptoms. Son at bedside corroborates the story. Workup in the ED significant for creatinine 1.3 (Baseline 0.90, WBC 13.2, calcium 13.2, troponin 0.08, BNP 13,300. Patient appears very weak on exam. She was given 1 L LR bolus, ceftriaxone, azithromycin. Case discussed with ED provider and she was made to admit patient for physical deconditioning, hypercalcemia, JOSÉ MIGUEL, NSTEMI. #Hypercalcemia #JOSÉ MIGUEL #Dehydration ? Progressive weakness over the past few days, poor oral intake. ? Initial calcium 13.2, creatinine 1.3 (baseline 0.90). While hypercalcemic can be from dehydration, also concerning in the setting of lung malignancy. ? Continue LR at 100 mL/h. ? Follow-up morning CMP, PTH, vitamin D, SPEP. ? Continuous cardiac telemetry. #History of pulmonary emboli ? Continue home Eliquis. #COPD ? Stable currently on 2 L. Continue home Trelegy. #Pulmonary nodules #Suspected malignancy ? Multiple pulmonary nodules, stable on CTA chest on admission. Declines workup, treatment. #A-fib ? Currently in sinus tachycardia. Continue home metoprolol succinate 100 mg, digoxin 125 mcg, Eliquis 5 mg twice daily. DNR/DNI DVT prophylaxis: Eliquis
[2025-01-27] MEDS: AZITHROMYCIN 500 MG in 0.9 % SODIUM CHLORIDE 250 ML 250 MG IV (16:53)
--- NOTE | 2025-01-27 17:06 | INFXCTL.NOTE ---
arrived by stretcher from ED
[2025-01-27 17:24] LABS: Troponin I 0.06 ng/ml (0.00-0.034)
[2025-01-27 17:36] LABS: Reflex Lactic Add Lactic Reflex
[2025-01-27] MEDS: LACTATED RINGERS 1000ML 1,000 ML 100 ML IV (17:50)
[2025-01-27 20:15] LABS: Troponin I 0.05 ng/ml (0.00-0.034)
[2025-01-27 20:20] LABS: 25-OH Vitamin D, Total 124 ng/mL (30-100)
[2025-01-27] MEDS: METOPROLOL SUCCINATE XL 100MG TABLET 100 MG PO (21:03)
[2025-01-27] MEDS: APIXABAN 5 EACH PO (21:05)
[2025-01-28] VITALS (17 sets, daily range): BP systolic 152–195; BP diastolic 67–94; PULSE 79–98; RESP 16–22; TEMP 36.3–36.9; O2SAT 93–100; BMI 23.1
[2025-01-28] MEDS: LACTATED RINGERS 1000ML 1,000 ML 100 ML IV (03:36)
--- NOTE | 2025-01-28 04:30 | PC.NURSE ---
Pt A&Ox3, (Person, Place, Time). Pt intermittently confused. Pt is on 2L/NC. Pt's lung sounds are diminished, but audible rhonchi and wheezes noted. Pt did have a productive cough, however unable to obtain sputum. Pt's med rec is not completed, pt is a very poor historian. Pt has had no other acute changes noted. Pt resting w/ call light in reach. Plan of care ongoing.
--- NOTE | 2025-01-28 04:57 | ECG_ITS ---
APPROVED REPORT Exam: Resting ECG HR:82 bpm ECG Measurements Heart Rate 82 AXES RI 146 P 73 QRSd 89 QRS -58 QT 338 T 27 QTc 377 Conclusion SINUS RHYTHM LEFT AXIS DEVIATION [QRS AXIS < -30] SEPTAL MYOCARDIAL INFARCTION , OF INDETERMINATE AGE [40+ ms Q WAVE IN V1/V2] ABNORMAL ECG UNCONFIRMED REPORT Electronically signed by : Fito Connelly MD 02/01/2025 08:01:42
[2025-01-28] MEDS: HYDRALAZINE 20MG/ML VIAL 10 MG IV (04:59)
--- NOTE | 2025-01-28 05:28 | PC.NURSE ---
Around 0450, the tech came out and reported to this nurse that the pt was having pain. I went into assess pt, pt complained of left upper chest pain that was an 8/10 and did not radiate. Pt's BP at this time was 195/93 and HR 84. At 0453 provider was notified, and ordered a stat EKG and 10mg of Hydralazine IVP. Provider came to bedside, assessed Pt's EKG and re assessed Pt's blood pressure following the medication administration. BP upon reassessment was 168/90. Provider was okay with Pt's EKG and BP. Provider ordered pt a breathing treatment rt chest tightness and increased effort to breathe. Pt maintaining oxygen saturation 97% on 2LNC. Pt resting and reports an improvement of symptoms w/ the decrease of BP. Call light is w/in reach. Plan of care ongoing.
[2025-01-28 05:43] LABS: Albumin Level 3.2 g/dl (3.5-5.0); Chloride 95 mmol/L (98-107)
[2025-01-28 05:44] LABS: Potassium 4.8 mmoL/L (3.5-5.1); Sodium 132 mmol/L (136-145)
[2025-01-28 05:46] LABS: Alanine Aminotransferase 9 U/L (12-78); Alkaline Phosphatase 62 U/L (38-126); Aspartate Amino Transferase 20 U/L (14-36); Blood Urea Nitrogen 17 mg/dl (7-17); Carbon Dioxide 35 mmol/L (22.0-30.0); Creatinine Clearance Estimated 43 mL/min (50-200); Creatinine,Serum 1.10 mg/dl (0.52-1.04); Estimated Glomerular Filt Rate 49 ml/min (>60); GFR (African American) 60 ML/MIN (>60); Total Protein,Serum 5.9 g/dl (6.3-8.2)
[2025-01-28 05:47] LABS: Albumin/Globulin Ratio 1.2 (1.1-1.8); Anion Gap 6.8 mEq/L (5-15); Bilirubin,Total < 0.1 mg/dl (0.2-1.3); Calcium 11.0 mg/dl (8.4-10.2); Globulin 2.7 g/dL (1.3-3.2); Glucose 130 mg/dl (74-100); Magnesium 1.9 mg/dl (1.6-2.3)
[2025-01-28 05:55] LABS: Hematocrit 32.0 % (37.0-47.0); Immature Granulocytes % 0.7 %; Mean Corpuscular HGB Conc 30.3 g/dL (31.8-35.4); Mean Corpuscular Hemoglobin 28.6 pg (27.0-31.2); Mean Corpuscular Volume 94.4 fl (81-99); Nucleated Red Blood Cells % 0 %; Platelet Count 255 K/mm3 (142-424); Red Blood Count 3.39 M/mm3 (4.20-5.40); Red Cell Distribution Width-SD 50.8 fL; White Blood Count 6.9 K/mm3 (4.8-10.8)
[2025-01-28 05:59] LABS: Hemoglobin 9.6 g/dL (12.2-16.2)
[2025-01-28] MEDS: IPRATROPIUM/ALBUTEROL 3 ML NEB IH ×5 (06:55→22:41)
--- NOTE | 2025-01-28 07:29 | HMH.PHAINT1 ---
Pharmacy Intervention Comments: MEDICATION RECONCILIATION COMPLETED ON PATIENT USING EXTERNAL FILL HISTORY FROM PHARMACY. -ERICA ALCAZAR, DESTINYD
[2025-01-28] MEDS: APIXABAN 5MG TABLET 5 MG PO ×2 (08:22→21:47)
[2025-01-28] MEDS: DIGOXIN 0.125MG TABLET 125 MCG PO (08:22)
[2025-01-28] MEDS: NICOTINE 21MG/24HR PATCH 21 MG TD (08:23)
[2025-01-28] MEDS: SODIUM CHLORIDE 3% 15ML NEB 3 ML IH (09:52)
--- NOTE | 2025-01-28 09:54 | HMH.OTEV ---
OT Inpatient Evaluation Rehab OT IP Evaluation Start: 01/27/25 16:51 Freq: ONCE Status: Active Protocol: Document 01/28/25 09:48 [facility] (Rec: 01/28/25 09:53 [facility] [id number]) Rehab OT IP Assessment Subjective History Pt oriented x 2 on arrival after max verbal cues. Pt required max verbal cues and re-education on therapy evaluation for participation. Pt demonstrated increased difficulty with sequencing. Pt admitted on due to JOSÉ MIGUEL and weakness. History and physical: Iqra Balbuena is a 69-year-old female with medical history significant for COPD on 2 L baseline, bilateral pulmonary emboli, pulmonary nodules concerning for malignancy (patient declines workup, treatment), A-fib, PAD, hypertension, anxiety/depression presents with several day onset of weakness, poor oral intake. Patient states she has not had a appetite in the past few days, denies any focal symptoms. Son at bedside corroborates the story. Workup in the ED significant for creatinine 1.3 (Baseline 0.90, WBC 13.2, calcium 13 .2, troponin 0.08, BNP 13,300. Patient appears very weak on exam. She was given 1 L LR bolus, ceftriaxone, azithromycin. Case discussed with ED provider and she was made to admit patient for physical deconditioning, hypercalcemia, JOSÉ MIGUEL, NSTEMI Subjective Prior to being in the hospital, pt lived with her son. Pt claims she is normally independent with ADLs. However, she is dependent upon son for completion of IADLs. She does use a cane during functional transfers . Pt is on 2L O2. Pt's son is not at home at all times because he does still work. Evaluation limited because patient refused to stand after multiple verbal cues for encouragement. Objective Patient Orientation Person,Birthday Right Upper WFL Extremity Gross ROM Left Upper Extremity WFL Gross ROM Bed Mobility bed mobility-scooting,bed mobility - supine/sit Assist Level Minimal x 1 (25% assist) Rehab OT IP prob,goals,plan Problems Date of Evaluation: 01/28/25 OT IP Problems Bed Mobility,Transfers,Balance,Self care,Safety Rehab Potential Rehab Potential Good Equipment Needs Assistive Devices Rolling / Wheeled Walker Plan OT intervention Plan Bed Mobility,Transfers,Balance,Self care,Safety, Therapeutic Exercise OT Plan Frequency Daily Duration LOS Discharge Goals Bed Mobility Ability Standby Assistance Sit to Stand Chair Minimal x 1 (25% assist) Transfer Ability Chair Transfer Minimal x 1 (25% assist) Ability Chair Transfer Sit to/from Ambulatory Technique Chair Transfer Rolling Walker Assistive Devices Feeding Ability Assist with Tray Set Up Lower Body Dressing Minimal Assistance Ability Upper Body Dressing Contact Guard Ability Performing Toilet Contact Guard Hygiene Ability Overall Commode/ Minimal Assistance Toilet Transfer Ability Commode/Toilet Sit to/from Ambulatory Transfer Technique Discharge Plan OT Discharge Plan Pt will continue to be seen for OT services while at [facility]. At this time, therapist recommends continued skilled therapy through short term rehab at [facility]. Evaluation was limited due to pt refusing to stand/ transfer. If patient demonstrates improvement during hospital stay, she could possibly return home with family assistance and OT evaluation. Continued skilled therapy is important in order for patient to improve strength, safety, endurance, ADL independence, and functional transfers to reach PLOF. Eval Complexity Eval Charge Codes 03506 - Moderate Complexity PHYSICIAN CERTIFICATION: I certify the specified therapy services for Iqra Balbuena are required, authorized, and reviewed every 30 days.
--- NOTE | 2025-01-28 10:06 | HMH.PTEV ---
Physical Therapy Evaluation Rehab PT IP Evaluation Start: 01/27/25 18:09 Freq: .once Status: Active Protocol: Document 01/28/25 10:01 [facility] (Rec: 01/28/25 10:06 [facility] [id number]) Subjective/History History History Per H&P: Iqra Balbuena is a 69-year-old female with medical history significant for COPD on 2 L baseline, bilateral pulmonary emboli, pulmonary nodules concerning for malignancy (patient declines workup, treatment), A-fib, PAD, hypertension, anxiety/ depression presents with several day onset of weakness, poor oral intake. Patient states she has not had a appetite in the past few days, denies any focal symptoms. Son at bedside corroborates the story. Workup in the ED significant for creatinine 1.3 ( Baseline 0.90, WBC 13.2, calcium 13.2, troponin 0.08, BNP 13,300. Patient appears very weak on exam. She was given 1 L LR bolus, ceftriaxone, azithromycin. Case discussed with ED provider and she was made to admit patient for physical deconditioning, hypercalcemia, JOSÉ MIGUEL, NSTEMI. Subjective Subjective Pt reports she lives with her son who works. Pt reports she is normally IND with all mobility using a cane. Pt reports there are no steps in home but 4 ELIG[address] home. New diagnosis of No cancer in past 12 months? [facility] How much help from another person do you currently need... Turning from your A little back to your side while in a flat bed without using bedrails? Moving from lying on A little back to sitting on the side of a flat bed without using bedrails? Moving to and from a A little bed to a chair ( including a wheelchair)? Standing up from a A little chair using your arms? (e.g., wheelchair, bedside chair) Walking in hospital A little room? Climbing 3-5 steps A little with a railing? Mobility Score 18 Mobility Level [facility] Mobility 6 Walk 10 steps or more Mobility Calculator Rehab PT IP Eval Objective Appearance Patient Behavior Resistive to Care Patient Orientation Person Difficulty following mild instructions Speech Pattern Soft-Spoken,Mumbled Ambulation Patient Able to No Ambulate Balance Ability to Arise Able, uses arms to help Sitting Balance Steady, safe Transfers Bed Transfer Ability Minimal x 1 (25% assist) Rehab PT IP prob,goals,plan Problems Date of Evaluation: 01/28/25 PT IP Problems Bed Mobility,Transfers,Gait,Balance,Self care,Safety Rehab Potential Rehab Potential Good Plan PT Intervention Plan Bed Mobility,Transfers,Gait,Balance,Self care,Safety, Therapeutic Exercise Other Intervention 1-2 times Plan PT Plan Frequency Daily Duration LOS Discharge Goals Bed Transfer Ability Supervision/Stand by Sit to Stand Chair Supervision/Stand by Transfer Ability Discharge Plan PT Discharge Plan Initial physical therapy evaluation performed. Patient presents below baseline at this time in functional mobility, transfers, and strength. Eval limited by limited pt participation. Pt not safe to return home at this time d/t current level of functional mobility. PT recommending short-term rehabilitation stay upon d/c from [facility]. Pt would benefit from skilled PT while at [facility] to prevent further functional decline and maximize safety with mobility. Eval Complexity Eval Charge Codes 31558 - Moderate Complexity PHYSICIAN CERTIFICATION: I certify the specified therapy services for Iqra Balbuena are required, authorized, and reviewed every 30 days.
[2025-01-28] MEDS: IRBESARTAN 150MG TAB 150 MG PO (12:42)
--- NOTE | 2025-01-28 12:47 | CA_ITS ---
APPROVED REPORT EXAM: Comprehensive 2D, Doppler, and color-flow Echocardiogram Nurse'S Assistant: KIMBER Randolph, RVS Ht: 5 ft 2 in Wt: 125lbs BSA: 1.57 BP: 163/85 mmHg Rhythm: Atrial Fibrillation Indications: COPD, Pulmonary edema, PHTN, Smoker, Pulmonary emboli, Elevated troponins, Afib 2D Dimensions Left Atrium 3.76 cm F: 2.7 - 3.8 LA Volume 70.60 mL LA Volume Index [id number] mL/m2 (M/F) 16-34 M-Mode Dimensions RVDd 2.13 cm (0.9-2.6) LA Diam 4.23 cm (1.9-4.0) LVDd 4.54 cm (3.5-5.7) LVDs 3.24 cm (3.5-5.7) IVSd 1.26 cm (0.6-1.1) PWd 1.03 cm (0.6-1.1) EF (Teich) 55.30% EPSs 0.84 cm FS 28.60% EDV (Teich) 94.40 mL TAPSE 1.41 (<1.7) ESV (Teich) 42.20 mL LV Diastology E Decel Time 143 (160-240 msec) E/A Ratio 0.72 MED A' 16.60 cm/s LAT A' 16.00 cm/s Aortic Valve ZACHERY Index 2.07 cm2/m2 AoV Peak Stalin. 129.0 (50-130 cm/s) AO Peak GR. 6.60 mmHg AO Mean GR. 3.30 (<5 mmHg) AO VTI 23.4 (18-25 cm) ZACHERY (VTI) 3.31 (2.5-4.5 cm2) Mitral Valve MV A Velocity 106.0 (40-130 cm/s) E/A Ratio 0.72 Tricuspid Valve TR P. Velocity 293.00 cm/s RAP Estimate 10.00 mmHg RVSP 44.40 mmHg Left Ventricle The left ventricle is normal size. The left ventricular systolic function is normal. The left ventricular ejection fraction is within the normal range. There is increased overall thickness. There is normal LV segmental wall motion. Transmitral Doppler flow pattern suggests impaired LV relaxation. LVEF is 55%. Right Ventricle The right ventricle is mildly dilated. The right ventricular systolic function is normal. Atria Left atrium is mildly dilated. Right atrium is mildly dilated. There is no Doppler evidence of interatrial shunt. Aortic Valve The aortic valve is mildly thickened. There is no aortic valvular stenosis. Trace aortic regurgitation. Mitral Valve The mitral valve is normal in structure. No evidence of mitral valve stenosis. Mild mitral regurgitation. Tricuspid Valve Tricuspid valve is grossly normal in structure and function. Mild tricuspid regurgitation. RVSP 25-30 mmHg. Pulmonic Valve The pulmonary valve is normal in structure. Trace pulmonic regurgitation. Great Vessels The aortic root is normal in size. IVC is normal in size and collapses >50% with inspiration. Pericardium There is no pericardial effusion. Other Information Study Quality: Fair Conclusion Normal biventricular systolic function. Mild RV dilation. Mild biatrial dilation. Mild MR, mild TR. Electronically signed by : Sarah Nayak MD 01/28/2025 23:01:52
[2025-01-28 13:03] LABS: Cholesterol 108 mg/dl (140-200); HDL Cholesterol 41 mg/dl (40-60); Triglycerides 88 mg/dl (30-150)
[2025-01-28] MEDS: TIOTROPIUM 18MCG/PUFF INHALER 1 CAP IH (13:46)
[2025-01-28] MEDS: ASPIRIN EC 81MG TABLET 81 MG PO (14:11)
--- NOTE | 2025-01-28 15:43 | XR_ITS ---
FINAL REPORT CLINICAL HISTORY: Chest pain COMPARISON: 01/19/2025 FINDINGS: CHEST 1 VIEW There is a small right pleural effusion. There are increased markings in the right lower lobe suspicious for pneumonia. There is a new vague opacity in the right perihilar region, also suspicious for pneumonia. A left suprahilar density may represent scar or pneumonia. IMPRESSION: Findings suspicious for right upper and right lower lobe pneumonia with small right pleural effusion. Chronic left suprahilar density which could be neoplastic or inflammatory. Reviewed, Interpreted and Dictated by Cecile Chambers MD Transcribed by Yodit Naik Authenticated and [facility]
--- NOTE | 2025-01-28 15:43 | ECG_ITS ---
APPROVED REPORT Exam: Resting ECG HR:90 bpm ECG Measurements Heart Rate 90 AXES OH 139 P 81 QRSd 86 QRS -81 QT 343 T 36 QTc 391 Conclusion SINUS RHYTHM LEFT ANTERIOR FASCICULAR BLOCK [QRS AXIS <= -45, QR IN I, RS IN II] ABNORMAL ECG UNCONFIRMED REPORT Electronically signed by : Fito Connelly MD 02/01/2025 08:01:27
[2025-01-28] MEDS: FUROSEMIDE 40MG/4ML VIAL 40 MG IV (15:51)
[2025-01-28] MEDS: NITROGLYCERIN 0.4MG SL TABLET 0.4 MG SL (16:08)
[2025-01-28 16:17] LABS: Anion Gap 15.7 mEq/L (5-15); Blood Urea Nitrogen 20 mg/dl (7-17); Calcium 11.2 mg/dl (8.4-10.2); Carbon Dioxide 31 mmol/L (22.0-30.0); Chloride 90 mmol/L (98-107); Creatinine Clearance Estimated 43 mL/min (50-200); Creatinine,Serum 1.10 mg/dl (0.52-1.04); Estimated Glomerular Filt Rate 49 ml/min (>60); GFR (African American) 60 ML/MIN (>60); Glucose 108 mg/dl (74-100); Potassium 4.7 mmoL/L (3.5-5.1); Sodium 132 mmol/L (136-145)
--- NOTE | 2025-01-28 16:21 | PC.NURSE ---
AT 1530 PT WAS COMPLAINING OF CHEST PAIN (RATE 7/10) AND SOA. HOSPITALIST AND NURSING STAFF AT BEDSIDE. HOSPITALIST ORDERED EKG, TROPONIN, BMP, LASIX 40 MG IV ONE TIME, AND NITRO SL. BP 207/90. HR 90. O2 SATURATION 91-94% ON 2 L NC. AFTER TAKING NITRO SL BP 177/86. HR 88. PAIN RATE 6/10. WILL CONTINUE TO MONITOR.
[2025-01-28 16:29] LABS: Troponin I 0.03 ng/ml (0.00-0.034)
[2025-01-28] MEDS: DOXYCYCLINE HYCL 100 MG TABLET PO (16:36)
[2025-01-28 16:45] LABS: Hemoglobin A1C 5.9 % (4.0-6.0)
--- NOTE | 2025-01-28 16:53 | EXP.PN ---
Subjective *Date: 02/09/25 *Time: 05:59 Interval history: Patient is feeling a little better today. Became SOB with IV fluids, improved with Lasix. Had extensive discussion with patient and son about hospice today, son stated he would think about it and talk again about it tomorrow. Exam Data for Last 24 hours Vital signs and Labs for Last 24 Hours: Temp Pulse Resp BP Pulse Ox O2 Del Method O2 Flow Rate 98.1 F 92 H 17 182/91 H 97 Nasal Cannula 2 01/28/25 12:00 01/28/25 13:48 01/28/25 12:00 01/28/25 12:00 01/28/25 16:00 01/28/25 16:00 01/28/25 16:00 Laboratory Results - last 24 hr 01/27/25 16:40: Troponin I 0.06 H 01/27/25 19:34: Troponin I 0.05 H, 25-OH Vitamin D Total 124 H, PTH Intact 9.7 01/28/25 04:23: WBC 6.9 D, RBC 3.39 L, Hgb 9.6 L D, Hct 32.0 L, MCV 94.4, MCH 28.6, MCHC 30.3 L, RDW 14.6, Plt Count 255, MPV 9.8, Neut % (Auto) 86.9 H, Lymph % (Auto) 10.3, Mccormick % (Auto) 2.0, Eos % (Auto) 0.0 L, Baso % (Auto) 0.1, Neut # (Auto) 6.0, Lymph # (Auto) 0.7, Mccormick # (Auto) 0.1, Eos # (Auto) 0.0, Baso # (Auto) 0.0, Sodium 132 L, Potassium 4.8, Chloride 95 L, Carbon Dioxide 35 H, Anion Gap 6.8, BUN 17, Creatinine 1.10 H, Estimated Creat Clear 43, Estimated GFR 49 L, Est GFR ( Amer) 60 D, Glucose 130 H, Hemoglobin A1c 5.9, Calcium 11.0 H, Magnesium 1.9, Total Bilirubin < 0.1 L, AST 20 D, ALT 9 L, Alkaline Phosphatase 62, Total Protein 5.9 L, Albumin 3.2 L D, Globulin 2.7, Albumin/Globulin Ratio 1.2, Triglycerides 88, Cholesterol 108 L, LDL Cholesterol Direct 44.51 L, VLDL Cholesterol 18, HDL Cholesterol 41, Cholesterol/HDL Ratio 2.6 01/28/25 15:53: Sodium 132 L, Potassium 4.7, Chloride 90 L, Carbon Dioxide 31 H, Anion Gap 15.7 H, BUN 20 H, Creatinine 1.10 H, Estimated Creat Clear 43, Estimated GFR 49 L, Est GFR ( Amer) 60, Glucose 108 H, Calcium 11.2 H, Troponin I 0.03 I & O for Last 24 hours: Intake & Output 01/25/25 01/26/25 01/27/25 01/28/25 23:59 23:59 23:59 23:59 Intake Total 3274 / 3274 Output Total 700 / 700 Balance 2574 / 2574 Weight 58.967 kg 56.841 kg Microbiology Reports for the Last 24 Hours: Microbiology 01/27/25 15:40 Blood Blood Culture - Preliminary NO GROWTH AFTER 24 HOURS 01/27/25 15:40 Blood Blood Culture - Preliminary NO GROWTH AFTER 24 HOURS Constitutional Constitutional: no acute distress and chronically ill appearing *Routine HEENT Exam Head: Present normocephalic Eye: Present EOMI and PERRL ENT: Present mucous membranes moist *Routine Neck Exam Neck: Present supple; Absent lymphadenopathy *Routine Respiratory Exam Respiratory: Present CTA bilaterally *Routine Cardiovascular Exam Cardiovascular: Present RRR *Routine Abdominal Exam Abdominal: Present soft and normoactive bowel sounds; Absent tenderness *Routine Extremities Exam Extremities: Absent cyanosis, clubbing or edema *Routine Skin Exam Skin: Present warm; Absent rash *Routine Neurological Exam Neurological: Present alert and oriented X3 Assessment and Plan *Assessment and plan (1) JOSÉ MIGUEL (acute kidney injury): Status: Acute Category: Medical Code(s): N17.9 - Acute kidney failure, unspecified (2) Hypercalcemia: Status: Acute Category: Medical Code(s): E83.52 - Hypercalcemia Plan Iqra Balbuena is a 69-year-old female with medical history significant for COPD on 2 L baseline, bilateral pulmonary emboli, pulmonary nodules concerning for malignancy (patient declines workup, treatment), A-fib, PAD, hypertension, anxiety/depression presents with several day onset of weakness, poor oral intake. Patient states she has not had a appetite in the past few days, denies any focal symptoms. Son at bedside corroborates the story. Workup in the ED significant for creatinine 1.3 (Baseline 0.90, WBC 13.2, calcium 13.2, troponin 0.08, BNP 13,300. Patient appears very weak on exam. She was given 1 L LR bolus, ceftriaxone, azithromycin. Case discussed with ED provider and she was made to admit patient for physical deconditioning, hypercalcemia, JOSÉ MIGUEL, NSTEMI. #Hypervitaminosis D #Hypercalcemia #JOSÉ MIGUEL #Dehydration ? Progressive weakness over the past few days, poor oral intake. ? Initial calcium 13.2, creatinine 1.3 (baseline 0.90). While hypercalcemic can be from dehydration, also concerning in the setting of lung malignancy. ? Elevated 25-vitamin D 124. Likely also contributing to hypercalcemia. Patient takes oral vitamin D at home, advised to discontinue. - Cr improved to 1.1, Ca to 11.2. IV fluids stopped after patient became overloaded today. Given IV Lasix with improvement in symptoms. ? Follow-up CMP, PTH, vitamin D, SPEP. ? Continuous cardiac telemetry. #NSTEMI type II - Troponins peaked at 0.08, since downtrended. Patient does not want intervention. Also poor candidate due to underlying suspected malignancy and pulmonary emboli. - Continue ASA, statin. #History of pulmonary emboli ? Continue home Eliquis. #COPD ? Stable currently on 2 L. Continue home Trelegy. #Pulmonary nodules #Suspected malignancy ? Multiple pulmonary nodules, stable on CTA chest on admission. Declines workup, treatment. #A-fib ? Currently in sinus tachycardia. Continue home metoprolol succinate 100 mg, digoxin 125 mcg, Eliquis 5 mg twice daily. DNR/DNI DVT prophylaxis: Eliquis
[2025-01-28] MEDS: MONTELUKAST SODIUM 10MG TAB 10 MG PO (17:51)
[2025-01-28] MEDS: METOPROLOL SUCCINATE XL 100MG TABLET 100 MG PO (21:47)
[2025-01-28] MEDS: ACETAMINOPHEN 325MG TAB 650 MG PO (21:47)
[2025-01-29] VITALS (13 sets, daily range): BP systolic 132–169; BP diastolic 70–92; PULSE 60–88; RESP 18–26; TEMP 36.6–36.8; O2SAT 94–100; BMI 24.0
[2025-01-29] MEDS: IPRATROPIUM/ALBUTEROL 3 ML NEB IH ×6 (02:29→23:11)
[2025-01-29 05:39] LABS: Hematocrit 29.5 % (37.0-47.0); Hemoglobin 9.2 g/dL (12.2-16.2); Immature Granulocytes % 0.5 %; Mean Corpuscular HGB Conc 31.2 g/dL (31.8-35.4); Mean Corpuscular Hemoglobin 28.6 pg (27.0-31.2); Mean Corpuscular Volume 91.6 fl (81-99); Nucleated Red Blood Cells % 0 %; Platelet Count 236 K/mm3 (142-424); Red Blood Count 3.22 M/mm3 (4.20-5.40); Red Cell Distribution Width-SD 48.9 fL; White Blood Count 10.2 K/mm3 (4.8-10.8)
[2025-01-29 05:53] LABS: Alanine Aminotransferase 7 U/L (12-78); Albumin Level 3.1 g/dl (3.5-5.0); Albumin/Globulin Ratio 1.3 (1.1-1.8); Alkaline Phosphatase 57 U/L (38-126); Anion Gap 10.4 mEq/L (5-15); Aspartate Amino Transferase 19 U/L (14-36); Bilirubin,Total 0.2 mg/dl (0.2-1.3); Blood Urea Nitrogen 20 mg/dl (7-17); Calcium 10.6 mg/dl (8.4-10.2); Carbon Dioxide 37 mmol/L (22.0-30.0); Chloride 84 mmol/L (98-107); Creatinine Clearance Estimated 41 mL/min (50-200); Creatinine,Serum 1.20 mg/dl (0.52-1.04); Estimated Glomerular Filt Rate 45 ml/min (>60); GFR (African American) 54 ML/MIN (>60); Globulin 2.3 g/dL (1.3-3.2); Glucose 91 mg/dl (74-100); Magnesium 1.4 mg/dl (1.6-2.3); Potassium 3.4 mmoL/L (3.5-5.1); Sodium 128 mmol/L (136-145); Total Protein,Serum 5.4 g/dl (6.3-8.2)
--- NOTE | 2025-01-29 05:58 | PC.NURSE ---
pt is alert to self and place disoriented to time and situation at times. v/s, pt on 2LNC satting in 90's. No acute events to report. Plan of care ongoing.
[2025-01-29] MEDS: TIOTROPIUM 18MCG/PUFF INHALER 1 CAP IH (06:06)
[2025-01-29 08:47] LABS: Digoxin 0.70 ng/ml (0.2-2.00)
[2025-01-29] MEDS: APIXABAN 5MG TABLET 5 MG PO ×2 (09:25→20:55)
[2025-01-29] MEDS: IRBESARTAN 150MG TAB 150 MG PO (09:25)
[2025-01-29] MEDS: DIGOXIN 0.125MG TABLET 125 MCG PO (09:26)
[2025-01-29] MEDS: AMLODIPINE 5MG TABLET 5 MG PO (09:26)
[2025-01-29] MEDS: ASPIRIN EC 81MG TABLET 81 MG PO (09:26)
[2025-01-29] MEDS: NICOTINE 21MG/24HR PATCH 21 MG TD (09:26)
[2025-01-29] MEDS: DOXYCYCLINE HYCL 100 MG TABLET PO ×2 (09:26→20:54)
[2025-01-29] MEDS: CEFTRIAXONE 1 GM 1 GM in 0.9 % SODIUM CHLORIDE 50 ML IV (12:55)
[2025-01-29] MEDS: POTASSIUM CHLORIDE 20MEQ TAB 40 MEQ PO ×2 (12:55→17:49)
[2025-01-29] MEDS: MAGNESIUM SULFATE IN WATER 2 GM/50 ML PIGGYBACK IV ×3 (13:34→14:33)
--- NOTE | 2025-01-29 13:35 | SW/DCPLANNER ---
Addendum entered by Tiana Sandhu 02/02/25 08:23: Patient discharged home w/ Hospice services and family. Addendum entered by Tiana Sandhu 01/29/25 15:18: Uzma w/ [facility] is reviewing patient information. Addendum entered by Tiana Sandhu 01/29/25 14:45: After a lengthy conversation w/ MD, patient, son and daughter the plan is to consult Hospice. Patient information has been faxed to [facility] and I will follow up once information is reviewed. Family plans on patient returning home at time of discharge. Original Note: MD spoke w/ patient and son yesterday regarding discharge plans. Son requested additional time to consider Hospice services. I spoke w/ son this AM and he stated he plans to be bedside this afternoon. I will follow up w/ son regarding home vs placement vs Hospice once he arrives. Discharge date is unknown at this time.
[2025-01-29 16:13] LABS: Albumin 2.8 g/dL (2.9-4.4); Alpha-1-Globulin 0.4 g/dL (0.0-0.4); Alpha-2-Globulin 0.8 g/dL (0.4-1.0); Gamma Globulin 0.6 g/dL (0.4-1.8)
--- NOTE | 2025-01-29 16:26 | PC.NURSE ---
Aox 3 with confusion at times, bed alarm active, 02 .05-1L nc, 20G r ac sl, 3 runs of magnesium and PO potassium given today, regular diet, purewick in place, hospice consulted.
--- NOTE | 2025-01-29 17:34 | P.PN_ITS ---
Subjective *Date: 02/09/25 *Time: 06:07 Interval history: Hospice care was consulted, children declined it after consultation. Patient continues to be weak, plan for discharge tomorrow if improvement. Exam Data for Last 24 hours Vital signs and Labs for Last 24 Hours: Temp Pulse Resp BP Pulse Ox O2 Del Method O2 Flow Rate 98.1 F 88 20 169/75 H 100 Nasal Cannula 0.5 01/29/25 12:00 01/29/25 14:11 01/29/25 12:00 01/29/25 12:00 01/29/25 14:11 01/29/25 16:20 01/29/25 16:20 Laboratory Results - last 24 hr 01/28/25 04:23: Total Protein (PEP) 5.4 L, Albumin (PEP) 2.8 L, Globulin (PEP) 2.6, Albumin/Globulin Ratio 1.1, Mrqlz-7-Igywppcux 0.4, Pqlvv-1-Ikkkgufml 0.8, Beta Globulins 0.8, Gamma Globulins 0.6, M-Anderson Not observed, PEP Note Comment 01/29/25 04:20: WBC 10.2 D, RBC 3.22 L, Hgb 9.2 L, Hct 29.5 L, MCV 91.6, MCH 28.6, MCHC 31.2 L, RDW 14.7, Plt Count 236, MPV 9.6, Neut % (Auto) 65.3, Lymph % (Auto) 27.7, Rosebud % (Auto) 5.9, Eos % (Auto) 0.4, Baso % (Auto) 0.2, Neut # (Auto) 6.7, Lymph # (Auto) 2.8, Rosebud # (Auto) 0.6, Eos # (Auto) 0.0, Baso # (Auto) 0.0, Sodium 128 L, Potassium 3.4 L D, Chloride 84 L, Carbon Dioxide 37 H, Anion Gap 10.4, BUN 20 H, Creatinine 1.20 H, Estimated Creat Clear 41, Estimated GFR 45 L, Est GFR ( Amer) 54 L, Glucose 91, Calcium 10.6 H, Magnesium 1.4 L D, Total Bilirubin 0.2, AST 19, ALT 7 L, Alkaline Phosphatase 57, Total Protein 5.4 L, Albumin 3.1 L, Globulin 2.3, Albumin/Globulin Ratio 1.3, Digoxin 0.70 I & O for Last 24 hours: Intake & Output 01/26/25 01/27/25 01/28/25 01/29/25 23:59 23:59 23:59 23:59 Intake Total 3514 / 3634 1160 / 1160 Output Total 2300 / 2300 500 / 500 Balance 1214 / 1334 660 / 660 Weight 58.967 kg 56.841 kg 59.103 kg Microbiology Reports for the Last 24 Hours: Microbiology 01/27/25 15:40 Blood Blood Culture - Preliminary NO GROWTH AFTER 48 HOURS 01/27/25 15:40 Blood Blood Culture - Preliminary NO GROWTH AFTER 48 HOURS 01/27/25 16:13 Sputum - Expectorated Sputum Gram Stain - Final Constitutional Constitutional: no acute distress and chronically ill appearing *Routine HEENT Exam Head: Present normocephalic Eye: Present EOMI and PERRL ENT: Present mucous membranes moist *Routine Neck Exam Neck: Present supple; Absent lymphadenopathy *Routine Respiratory Exam Respiratory: Present CTA bilaterally *Routine Cardiovascular Exam Cardiovascular: Present RRR *Routine Abdominal Exam Abdominal: Present soft and normoactive bowel sounds; Absent tenderness *Routine Extremities Exam Extremities: Absent cyanosis, clubbing or edema *Routine Skin Exam Skin: Present warm; Absent rash *Routine Neurological Exam Neurological: Present alert and oriented X3 Assessment and Plan *Assessment and plan (1) JOSÉ MIGUEL (acute kidney injury): Status: Acute Category: Medical Code(s): N17.9 - Acute kidney failure, unspecified (2) Hypercalcemia: Status: Acute Category: Medical Code(s): E83.52 - Hypercalcemia Plan Iqra Balbuena is a 69-year-old female with medical history significant for COPD on 2 L baseline, bilateral pulmonary emboli, pulmonary nodules concerning for malignancy (patient declines workup, treatment), A-fib, PAD, hypertension, anxiety/depression presents with several day onset of weakness, poor oral intake. Patient states she has not had a appetite in the past few days, denies any focal symptoms. Son at bedside corroborates the story. Workup in the ED significant for creatinine 1.3 (Baseline 0.90, WBC 13.2, calcium 13.2, troponin 0.08, BNP 13,300. Patient appears very weak on exam. She was given 1 L LR bolus, ceftriaxone, azithromycin. Case discussed with ED provider and she was made to admit patient for physical deconditioning, hypercalcemia, JOSÉ MIGUEL, NSTEMI. #Hypervitaminosis D #Hypercalcemia #JOSÉ MIGUEL #Dehydration ? Progressive weakness over the past few days, poor oral intake. ? Initial calcium 13.2, creatinine 1.3 (baseline 0.90). While hypercalcemic can be from dehydration, also concerning in the setting of lung malignancy. ? Elevated 25-vitamin D 124. Likely also contributing to hypercalcemia. Patient takes oral vitamin D at home, advised to discontinue. - Cr improved to 1.1, Ca to 10.6. IV fluids stopped after patient became overloaded. Given IV Lasix with improvement in symptoms. ? PTH, CMP normal. ? Continuous cardiac telemetry. #Pulmonary nodules #Suspected lung malignancy #Physical deconditioning ? Multiple pulmonary nodules, stable on CTA chest on admission. Declines workup, treatment. ? Extensively discussed with patient and son, daughter at bedside regarding patient's clinical and physical decline over the past year in the setting of evolving lung malignancy, end-stage COPD. Patient has had multiple hospitalizations over the past few months with COPD exacerbation, physical deconditioning, and others all likely related to end-stage COPD and underlying lung malignancy which patient does not want further evaluation management. Patient and family therefore interested in hospice, and hospice was consulted. Ultimately, children did not want to start hospice as there goals did not align with hospice care. They would like to continue aggressive management of end- stage COPD, and symptoms related to physical deconditioning/malignancy. Therefore we will defer hospice at this time. ? PT/OT consulted, recommended SNF. But patient declines placement and home health. Has previously had poor experience with home health. #NSTEMI type II - Troponins peaked at 0.08, since downtrended. Patient does not want intervention. Also poor candidate due to underlying suspected malignancy and pulmonary emboli. - Continue ASA, statin. #History of pulmonary emboli ? Continue home Eliquis. #COPD ? Stable currently on 2 L. Continue home Trelegy. #A-fib ? Continue home metoprolol succinate 100 mg, digoxin 125 mcg, Eliquis 5 mg twice daily. DNR/DNI DVT prophylaxis: Eliquis
[2025-01-29] MEDS: MONTELUKAST SODIUM 10MG TAB 10 MG PO (17:50)
[2025-01-29 17:58] LABS: POC Glucose,Bedside 185 (70-110)
--- NOTE | 2025-01-29 19:41 | PC.NURSE ---
Norified lab and RT need for VBG
[2025-01-29 20:05] LABS: VBG HCO3 32.5 mmol/L (23-30); VBG PH 7.39 mmol/L (7.31-7.41); VBG PO2 57.4 mmol/L (28-40)
[2025-01-29 20:08] LABS: Lactate Venous 2.9 mmol/L (0.4-2.0); VBG PCO2 54.6 mmol/L (35-51)
[2025-01-29] MEDS: METOPROLOL SUCCINATE XL 100MG TABLET 100 MG PO (20:55)
[2025-01-30] VITALS (12 sets, daily range): BP systolic 147–181; BP diastolic 78–80; PULSE 70–90; RESP 18–24; TEMP 36.5–36.9; O2SAT 72–100; BMI 23.8
[2025-01-30 00:06] LABS: Reflex Lactic Add Lactic Reflex
[2025-01-30 01:21] LABS: Lactic Acid Follow Up (RFLX 1) 1.2 mmol/L (0.7-2.1)
[2025-01-30] MEDS: IPRATROPIUM/ALBUTEROL 3 ML NEB IH ×3 (02:45→10:05)
[2025-01-30] MEDS: TIOTROPIUM 18MCG/PUFF INHALER 1 CAP IH (06:06)
--- NOTE | 2025-01-30 06:40 | PC.NURSE ---
Pt AOx4 throughout shift. Pt has not voiced any complaints to staff. Pt O2 was titrated up to 3 L nc while asleep to maintain O2 sat >90%. Exp wheezing heard throughout lung [place] this AM. Received breathing treatments throughout night. Call light within reach.
[2025-01-30 07:34] LABS: Hematocrit 30.5 % (37.0-47.0); Hemoglobin 10.0 g/dL (12.2-16.2); Immature Granulocytes % 0.5 %; Mean Corpuscular HGB Conc 32.8 g/dL (31.8-35.4); Mean Corpuscular Hemoglobin 29.7 pg (27.0-31.2); Mean Corpuscular Volume 90.5 fl (81-99); Nucleated Red Blood Cells % 0 %; Platelet Count 231 K/mm3 (142-424); Red Blood Count 3.37 M/mm3 (4.20-5.40); Red Cell Distribution Width-SD 49.2 fL; White Blood Count 7.9 K/mm3 (4.8-10.8)
[2025-01-30 07:53] LABS: Alanine Aminotransferase 9 U/L (12-78); Albumin Level 3.1 g/dl (3.5-5.0); Albumin/Globulin Ratio 1.4 (1.1-1.8); Alkaline Phosphatase 52 U/L (38-126); Anion Gap 6.7 mEq/L (5-15); Aspartate Amino Transferase 22 U/L (14-36); Bilirubin,Total 0.2 mg/dl (0.2-1.3); Blood Urea Nitrogen 19 mg/dl (7-17); Calcium 10.2 mg/dl (8.4-10.2); Carbon Dioxide 32 mmol/L (22.0-30.0); Chloride 92 mmol/L (98-107); Creatinine Clearance Estimated 49 mL/min (50-200); Creatinine,Serum 1.00 mg/dl (0.52-1.04); Estimated Glomerular Filt Rate 55 ml/min (>60); GFR (African American) 67 ML/MIN (>60); Globulin 2.2 g/dL (1.3-3.2); Glucose 94 mg/dl (74-100); Magnesium 2.2 mg/dl (1.6-2.3); Potassium 3.7 mmoL/L (3.5-5.1); Sodium 127 mmol/L (136-145); Total Protein,Serum 5.3 g/dl (6.3-8.2)
[2025-01-30] MEDS: DOXYCYCLINE HYCL 100 MG TABLET PO (08:46)
[2025-01-30] MEDS: DIGOXIN 0.125MG TABLET 125 MCG PO (08:46)
[2025-01-30] MEDS: IRBESARTAN 150MG TAB 150 MG PO (08:46)
[2025-01-30] MEDS: ASPIRIN EC 81MG TABLET 81 MG PO (08:46)
[2025-01-30] MEDS: AMLODIPINE 5MG TABLET 5 MG PO (08:47)
[2025-01-30] MEDS: APIXABAN 5MG TABLET 5 MG PO (08:47)
[2025-01-30 09:34] LABS: C-Reactive Protein 4.5 mg/L (0-4)
--- NOTE | 2025-01-30 11:02 | P.DS_ITS ---
General Admission date:: 01/27/25 HPI HPI HPI: Iqra Balbuena is a 69-year-old female with medical history significant for COPD on 2 L baseline, bilateral pulmonary emboli, pulmonary nodules concerning for malignancy (patient declines workup, treatment), A-fib, PAD, hypertension, anxiety/depression presents with several day onset of weakness, poor oral intake. Patient states she has not had a appetite in the past few days, denies any focal symptoms. Son at bedside corroborates the story. Workup in the ED significant for creatinine 1.3 (Baseline 0.90, WBC 13.2, calcium 13.2, troponin 0.08, BNP 13,300. Patient appears very weak on exam. She was given 1 L LR bolus, ceftriaxone, azithromycin. Case discussed with ED provider and she was made to admit patient for physical deconditioning, hypercalcemia, JOSÉ MIGUEL, NSTEMI. Hospital Course Hospital Course Hospital Course: Iqra Balbuena is a 69-year-old female with medical history significant for COPD on 2 L baseline, bilateral pulmonary emboli, pulmonary nodules concerning for malignancy (patient declines workup, treatment), A-fib, PAD, hypertension, anxiety/depression presents with several day onset of weakness, poor oral intake. Patient states she has not had a appetite in the past few days, denies any focal symptoms. Son at bedside corroborates the story. Workup in the ED significant for creatinine 1.3 (Baseline 0.90, WBC 13.2, calcium 13.2, troponin 0.08, BNP 13,300. Patient appears very weak on exam. She was given 1 L LR bolus, ceftriaxone, azithromycin. Case discussed with ED provider and she was made to admit patient for physical deconditioning, hypercalcemia, JOSÉ MIGUEL, NSTEMI. #Hypervitaminosis D #Hypercalcemia #JOSÉ MIGUEL #Dehydration ? Progressive weakness over the past few days, poor oral intake. ? Initial calcium 13.2, creatinine 1.3 (baseline 0.90). While hypercalcemic can be from dehydration, also concerning in the setting of lung malignancy. ? Elevated 25-vitamin D 124. Likely also contributing to hypercalcemia. Patient takes oral vitamin D at home, advised to discontinue. PTH, SPEP normal. - Cr improved to 1.0, Ca to 10.2. IV fluids stopped after patient became overloaded. Given IV Lasix with improvement in symptoms. #Pulmonary nodules #Suspected lung malignancy #Physical deconditioning ? Multiple pulmonary nodules, stable on CTA chest on admission. Declines workup, treatment. ? Extensively discussed with patient and son, daughter at bedside regarding patient's clinical and physical decline over the past year in the setting of evolving lung malignancy, end-stage COPD. Patient has had multiple hospitalizations over the past few months with COPD exacerbation, physical deconditioning, and others all likely related to end-stage COPD and underlying lung malignancy which patient does not want further evaluation management. Patient and family therefore interested in hospice, and hospice was consulted. Ultimately, children did not want to start hospice as there goals did not align with hospice care. They would like to continue aggressive management of end- stage COPD, and symptoms related to physical deconditioning/malignancy. Therefore we will defer hospice at this time. ? PT/OT consulted, recommended SNF. But patient declines placement and home health. Has previously had poor experience with home health. #Suspected community-acquired pneumonia ? Mild opacification seen on chest x-ray earlier in hospitalization, could also be from volume overload which improved with IV diuresis. However, patient is high risk for recurrent pneumonia. ? Discharged with doxycycline for 5 more days. #NSTEMI type II - Troponins peaked at 0.08, since downtrended. Patient does not want intervention. Also poor candidate due to underlying suspected malignancy and pulmonary emboli. - Continue ASA, statin. #Hypertension ? Continue home losartan 100 mg, started amlodipine 5 mg as pressures persistently in the 160s to 180s. #History of pulmonary emboli ? Continue home Eliquis. #COPD ? Stable currently on 2 L. Continue home Trelegy. #A-fib ? Continue home metoprolol succinate 100 mg, digoxin 125 mcg, Eliquis 5 mg twice daily. Total time spent on discharge: 33 minutes on chart review, counseling, documentation, and direct care with patient. Exam Data for Last 24 hours Vital signs and Labs for Last 24 Hours: Temp Pulse Resp BP Pulse Ox O2 Del Method O2 Flow Rate 97.7 F 79 24 151/80 H 97 Nasal Cannula 0.5 01/30/25 08:00 01/30/25 10:05 01/30/25 08:00 01/30/25 08:00 01/30/25 10:05 01/30/25 10:42 01/30/25 10:42 Laboratory Results - last 24 hr 01/28/25 04:23: Total Protein (PEP) 5.4 L, Albumin (PEP) 2.8 L, Globulin (PEP) 2.6, Albumin/Globulin Ratio 1.1, Fsqgl-7-Yjxzrtdji 0.4, Hezhb-8-Rcnzyjkwo 0.8, Beta Globulins 0.8, Gamma Globulins 0.6, M-Anderson Not observed, PEP Note Comment 01/29/25 17:48: POC Glucose 185 H 01/29/25 19:51: VBG pH 7.39, VBG pCO2 54.6 H, VBG pO2 57.4 H, VBG HCO3 32.5 H, VBG Total CO2 34.1 H, VBG O2 Saturation 87.8 H, VBG Base Excess 7.5 H, VBG Lactic Acid 2.9 H 01/30/25 00:45: Lactate 1.2 01/30/25 06:35: WBC 7.9, RBC 3.37 L, Hgb 10.0 L, Hct 30.5 L, MCV 90.5, MCH 29.7, MCHC 32.8, RDW 15.0, Plt Count 231, MPV 9.7, Neut % (Auto) 59.5, Lymph % (Auto) 30.1, Hill % (Auto) 8.6, Eos % (Auto) 0.9, Baso % (Auto) 0.4, Neut # (Auto) 4.7, Lymph # (Auto) 2.4, Hill # (Auto) 0.7, Eos # (Auto) 0.1, Baso # (Auto) 0.0, Sodium 127 L, Potassium 3.7, Chloride 92 L, Carbon Dioxide 32 H, Anion Gap 6.7, BUN 19 H, Creatinine 1.00, Estimated Creat Clear 49, Estimated GFR 55 L, Est GFR ( Amer) 67 D, Glucose 94, Calcium 10.2, Magnesium 2.2 D, Total Biliru bin 0.2, AST 22, ALT 9 L D, Alkaline Phosphatase 52, C-Reactive Protein 4.5 H, Total Protein 5.3 L, Albumin 3.1 L, Globulin 2.2, Albumin/Globulin Ratio 1.4 I & O for Last 24 hours: Intake & Output 01/27/25 01/28/25 01/29/25 01/30/25 23:59 23:59 23:59 23:59 Intake Total 3514 / 3634 1400 / 1400 240 / 240 Output Total 2300 / 2300 1000 / 1000 850 / 850 Balance 1214 / 1334 400 / 400 -610 / -610 Weight 58.967 kg 56.841 kg 59.103 kg 58.74 kg Microbiology Reports for the Last 24 Hours: Microbiology 01/27/25 15:40 Blood Blood Culture - Preliminary NO GROWTH AFTER 48 HOURS 01/27/25 15:40 Blood Blood Culture - Preliminary NO GROWTH AFTER 48 HOURS Constitutional Constitutional: no acute distress and chronically ill appearing *Routine HEENT Exam Head: Present normocephalic Eye: Present EOMI and PERRL ENT: Present mucous membranes moist *Routine Neck Exam Neck: Present supple; Absent lymphadenopathy *Routine Respiratory Exam Respiratory: Present CTA bilaterally *Routine Cardiovascular Exam Cardiovascular: Present RRR *Routine Abdominal Exam Abdominal: Present soft and normoactive bowel sounds; Absent tenderness *Routine Extremities Exam Extremities: Absent cyanosis, clubbing or edema *Routine Skin Exam Skin: Present warm; Absent rash *Routine Neurological Exam Neurological: Present alert and oriented X3 Results Data Completed and Pending Labs on day of discharge: Labs from last 24 hours 01/30/25 01/30/25 01/29/25 06:35 00:45 19:51 WBC 7.9 RBC 3.37 L Hgb 10.0 L Hct 30.5 L MCV 90.5 MCH 29.7 MCHC 32.8 RDW 15.0 Plt Count 231 MPV 9.7 Neut % (Auto) 59.5 Lymph % (Auto) 30.1 Hill % (Auto) 8.6 Eos % (Auto) 0.9 Baso % (Auto) 0.4 Neut # (Auto) 4.7 Lymph # (Auto) 2.4 Hill # (Auto) 0.7 Eos # (Auto) 0.1 Baso # (Auto) 0.0 VBG pH 7.39 VBG pCO2 54.6 H VBG pO2 57.4 H VBG HCO3 32.5 H VBG Total CO2 34.1 H VBG O2 Saturation 87.8 H VBG Base Excess 7.5 H VBG Lactic Acid 2.9 H Sodium 127 L Potassium 3.7 Chloride 92 L Carbon Dioxide 32 H Anion Gap 6.7 BUN 19 H Creatinine 1.00 Estimated Creat Clear 49 Estimated GFR 55 L Est GFR ( Amer) 67 D Glucose 94 POC Glucose Lactate 1.2 Calcium 10.2 Magnesium 2.2 D Total Bilirubin 0.2 AST 22 ALT 9 L D Alkaline Phosphatase 52 C-Reactive Protein 4.5 H Total Protein 5.3 L Total Protein (PEP) Albumin 3.1 L Albumin (PEP) Globulin 2.2 Globulin (PEP) Albumin/Globulin Ratio 1.4 Dhuzl-3-Bnbdjojuz Ljakg-3-Vlokhcltm Beta Globulins Gamma Globulins M-Anderson PEP Note 01/29/25 01/28/25 17:48 04:23 WBC RBC Hgb Hct MCV MCH MCHC RDW Plt Count MPV Neut % (Auto) Lymph % (Auto) Hill % (Auto) Eos % (Auto) Baso % (Auto) Neut # (Auto) Lymph # (Auto) Hill # (Auto) Eos # (Auto) Baso # (Auto) VBG pH VBG pCO2 VBG pO2 VBG HCO3 VBG Total CO2 VBG O2 Saturation VBG Base Excess VBG Lactic Acid Sodium Potassium Chloride Carbon Dioxide Anion Gap BUN Creatinine Estimated Creat Clear Estimated GFR Est GFR ( Amer) Glucose POC Glucose 185 H Lactate Calcium Magnesium Total Bilirubin AST ALT Alkaline Phosphatase C-Reactive Protein Total Protein Total Protein (PEP) 5.4 L Albumin Albumin (PEP) 2.8 L Globulin Globulin (PEP) 2.6 Albumin/Globulin Ratio 1.1 Peatr-0-Ocbtanzjn 0.4 Nlphk-4-Beihsvspd 0.8 Beta Globulins 0.8 Gamma Globulins 0.6 M-Anderson Not observed PEP Note Comment Preliminary micro results at discharge 01/27/25 15:40 Blood Culture - Preliminary Blood NO GROWTH AFTER 48 HOURS 01/27/25 15:40 Blood Culture - Preliminary Blood NO GROWTH AFTER 48 HOURS DS: Diagnosis Discharge Diagnosis (1) JOSÉ MIGUEL (acute kidney injury): Status: Acute Code(s): N17.9 - Acute kidney failure, unspecified (2) Hypercalcemia: Status: Acute Code(s): E83.52 - Hypercalcemia Meds Home Medications and Allergies Home Medications ?Medication ?Instructions ?Recorded ?Confirmed ?Type albuterol sulfate 90 mcg/actuation 2 inh inhalation Q6 HP PRN 04/15/24 01/28/25 History aerosol inhaler Shortness Of Breath gabapentin 800 mg tablet 800 mg PO TID 04/15/2401/28 History Held on 01/30/25. Instructions: Resume on 02/13/25. You did not need this medication during hospitalization. Please consider discontinuing as it can cause weakness, unless you have neuropathy. If you do have neuropathy, start at 400 mg daily and follow-up with your PCP. montelukast 10 mg tablet 10 mg PO PM 04/15/24 5 History potassium chloride 20 mEq 20 meq PO BID 04/15/2401/28 History tablet,extended release(part/cryst) digoxin 125 mcg (0.125 mg) tablet 125 mcg PO DAILY #30 tabs 12/01/24 01/28/25 Rx metoprolol succinate 100 mg 100 mg PO HS 30 days #30 t abs 12/01/24 01/28/25 Rx tablet,extended release 24 hr tiotropium bromide 18 mcg capsule 1 cap inhalation AURELIA LY #30 blisters 12/18/24 01/28/25 Rx with inhalation device (Spiriva with HandiHaler) apixaban 5 mg tablet (Eliquis) 5 mg PO BID 01/28/25 History fluticasone 500 mcg-salmeterol 50 1 inh inhalation BID 01/28/25 01/28/25 History mcg/dose blistr powdr for inhalation (Advair Diskus) losartan 100 mg tablet 100 mg PO DAILY 01/28/25 History alprazolam 1 mg tablet 1 mg PO BID PRN anxiety 30 d ays #0 01/30/25 01/28/25 Rx tabs amlodipine 5 mg tablet 5 mg PO DAILY 30 days #30 ta bs 01/30/25 Rx aspirin 81 mg tablet,delayed 81 mg PO DAILY 30 days #3 0 tabs 01/30/25 Rx release celecoxib 50 mg capsule 50 mg PO DAILY PRN pain 30 d ays #0 01/30/25 01/28/25 Rx caps doxycycline hyclate 100 mg tablet 100 mg PO BID 5 days #10 tabs 01/30/25 Rx New Prescriptions to Start Prescriptions: amlodipine Sulaiman Butt aspirin Filomena,Sulaiman doxycycline hyclate Sulaiman Butt Allergies Allergy/AdvReac Type Severity Reaction Status Date / Time No Known Allergies Allergy Verified 11/17/24 15:18 Discharge Plan Disposition Patient Disposition: Home, Self-Care Condition: Fair Discharge Order Discharge Orders: Discharge Order (Routine); Ordered 01/30/25 Ordered By: Sulaiman uBtt Follow up Plan Follow up with: Provider,Referral, MD [Primary Care Provider, Medical] - Enter time for follow up Referral Note: Please call your PCP for an appointment. Prescriptions/Medication Reconciliation: New amlodipine 5 mg Tablet 5 mg PO DAILY 30 Days Qty: 30 0RF aspirin 81 mg Tablet,Delayed Release (Dr/Ec) 81 mg PO DAILY 30 Days Qty: 30 0RF doxycycline hyclate 100 mg Tablet 100 mg PO BID 5 Days Qty: 10 0RF Continued montelukast 10 mg tablet 10 mg PO PM albuterol sulfate 90 mcg/actuation HFA aerosol inhaler 2 inh INHALATION Q6HP PRN (Reason: Shortness Of Breath) potassium chloride 20 mEq tablet,ER particles/crystals 20 meq PO BID metoprolol succinate 100 mg Tablet Extended Release 24 Hr 100 mg PO HS 30 Days Qty: 30 0RF digoxin 125 mcg (0.125 mg) tablet 125 mcg PO DAILY Qty: 30 0RF tiotropium bromide [Spiriva with HandiHaler] 18 mcg Capsule, W/Inhalation Device 1 cap inhalation DAILY Qty: 30 0RF losartan 100 mg tablet 100 mg PO DAILY Patient Comments: TAKE 1 TABLET BY MOUTH ONCE A DAY fluticasone propion-salmeterol [Advair Diskus] 500-50 mcg/dose blister with device 1 inh inhalation BID Eliquis 5 mg Tablet 5 mg PO BID Changed alprazolam 1 mg tablet 1 mg PO BID PRN (Reason: anxiety) 30 Days Qty: 0 0RF celecoxib 50 mg capsule 50 mg PO DAILY PRN (Reason: pain) 30 Days Qty: 0 0RF Held gabapentin 800 mg tablet 800 mg PO TID Hold Instructions: Resume on 02/13/25. You did not need this medication during hospitalization. Please consider discontinuing as it can cause weakness, unless you have neuropathy. If you do have neuropathy, start at 400 mg daily and follow-up with your PCP. Discontinued calcium carbonate-vitamin D3 600 mg-5 mcg (200 unit) tablet 1 tab PO BIDWMEAL cholecalciferol (vitamin D3) 1,250 mcg (50,000 unit) capsule 1,250 mcg PO WEEKLY Problem Reconciliation Problems Reviewed?: Yes Patient Discharge Instructions Patient Instructions: Dehydration, DI for Hypercalcemia, DI for Chest Pain, DI for Acute Kidney Injury, Stop Light Pneumonia, Stop Light COPD, Stop Light Heart Failure Print Language: Luxembourgish Providers Primary Care Provider: Provider,Referral Admit Provider: Sulaiman Butt Attending Provider: Sulaiman Butt
--- NOTE | 2025-02-01 11:11 | SW/DCPLANNER ---
Spoke with patients grandson, patient did get new medications. No questions or concerns at this time.
[2025-02-05 15:17] LABS: PDF SCANNED IMAGE
== END 2025-01-30 16:20 | disposition home or self-care (01) | DRG 682 ==
LOC: ER 13:28 → 2ND 15:44
PROVIDERS: Physician Assistant; Admitting Provider Student in an Organized Health Care Education/Training Program; Emergency Provider Student in an Organized Health Care Education/Training Program; Visit Provider Student in an Organized Health Care Education/Training Program
DX: N17.9 Acute kidney failure, unspecified (principal); I21.A1 Myocardial infarction type 2; J18.9 Pneumonia, unspecified organism; J44.0 Chronic obstructive pulmonary disease with (acute) lower respiratory infection; C34.90 Malignant neoplasm of unspecified part of unspecified bronchus or lung; E83.52 Hypercalcemia; I10 Essential (primary) hypertension; I48.91 Unspecified atrial fibrillation; E86.0 Dehydration; F41.9 Anxiety disorder, unspecified; F32.A Depression, unspecified; I73.9 Peripheral vascular disease, unspecified; F17.210 Nicotine dependence, cigarettes, uncomplicated; E67.3 Hypervitaminosis D; Z66 Do not resuscitate; R53.1 Weakness; Z86.711 Personal history of pulmonary embolism; Z79.01 Long term (current) use of anticoagulants; Z79.52 Long term (current) use of systemic steroids; Z79.899 Other long term (current) drug therapy
CPT/HCPCS: 36415; 71045; 71275; 74177; 80048; 80053; 80061; 80162; 81001; 82306; 82803; 82962; 83036; 83605; 83735; 83880; 83970; 84145; 84155; 84165; 84484; 85025; 85610; 86140; 87040; 87070; 87205; 87633; 93005; 93306; 94640; 94761; 97162; 97166; J0360; J0456; J0696; J1100; J1938; J2405; J3475; J7030; J7050; J7120; Q9967

== ENCOUNTER 2025-02-21 15:58 | Emergency (ER) | payer MEDICARE, SELFPAY ==
--- OUTSIDE RECORDS SUMMARY | 2025-02-06 17:35 | XMS_ITS | Encounter Summary ---
Author Organization [employer] ([place], [place], [place], [place]) Address [address] [place] [address] Care Team Providers Care Whale Fisherman Name Role Phone [facility], Provider Not In The System Primary [...] unspecified whether nausea present Anticoagulated on Eliquis [facility] Cardiac Telemetry 1 [place] [address] Phone: tel: fax: [facility] Cardiac Telemetry 1 [place] [address] Phone: tel: fax: Referral ID Status Reason Start Date Expiration Date Visits Re quested Visits Authorized [id number] 1 1 Encounter Details Date Type Department Care Team (Late st Contact Info) Description 02/06/2025 5:35 PM EDT - 02/09/2025 12:35 PM EDT Hospital Encounter [facility] Cardiac Telemetry 1 [place] [address] Laura Gibson DO [address] [place] [address] Ricardo Gordon MD [address] [place] [address], [place] [phone] Von Sloan PA-C [address] [place] [address] Lauren NaraSEAN childs [address] [phone] Zhou Nassar DO [address] [phone] Sania Salcido MD [address] [phone] Hematemesis with nausea (Primary Dx); Hematemesis; Nusrat-Prajapati [...] Do you speak a language other than Guatemalan at [facility]? No 02/07/2025 Do you want help [...] In The System MD Jorje Hospital Course Electric Installer(s): GI, pulmonology Discharge Diagnosis: Nusrat-Prajapati tear Hematemesis [...] Your Medications These medications were sent to [facility] at [address] 1401 [facility] [address] pantoprazole 40 MG tablet sucralfate 100 mg/mL [...] System MD Jorje Relationship: PCP - General [place] [address] Next Steps: Schedule an appointment as soon as possible for a visit in 1 week(s) Instructions: Unable to reach the office of pcp. Please call to schedule. repeat CBC Marisa Garcia MD Specialty: Gastroenterology 1401 [facility] [address] [place] [address] Next Steps: Follow up in 2 month(s) Instructions: Repeat EGD office will be reaching out with appontment. Time Spent on Discharge: I spent 35 minutes in dnjs-ha-ardo time with the patient and nursing staffconcerning [...] be sent through Care Everywhere. 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 pantoprazole (PROTONIX) 40 MG tablet Take 1 tablet (40 mg total) by mouth 2 (two) times daily before meals for 30 days. 60 tablet 02/09/2025 5 polyethylene glycol (GLYCOLAX) 17 gram packet Take 17 g by mouth daily. potassium chloride (KLOR-CON) 20 MEQ tablet Take 1 tablet (20 mEq total) by mouth 2 (two) times daily. tiotropium (Spiriva with HandiHaler) 18 mcg inhalation capsule Inhale 1 capsule (18 mcg total) by mouth daily. 30 capsule 10/09/2024 6 sucralfate (CARAFATE) 100 mg/mL suspension Take 10 [...] ESOPHAGOGASTRODUODENOSCOPY (EGD); Surgeon: Marisa Garcia MD; Location: [facility]; Service: Gastroenterology; Laterality: N/A; Allergies: No Known [...] personally evaluated the patient and performed a zrnz-ek-zzsm diagnostic evaluation on this patient; I have Obtained history, performed physical examination, reviewed laboratory studies. I have independently interpreted chest images. I have actively directed the medical care, formulated diagnosis, and the plan of care. Patient requires a high complexity of decision making for assessment.Voice warehouse stocker technology (Azuro) is used for dictation of this note and sound-alike words might be erroneously placed despite reviewing the note for accuracy. Errors in dictation may reflect use of voice recognition software and not all errors in warehouse stocker may have been detected prior to signing. [...] Procedure Component Value Units Date/Time CTA chest [[id number]] Collected: 02/06/252134 Order Status: Completed Updated: 02/06/252155 [...] by Gareth Meza. CTA abdomen & pelvis [[id number]] Collected: 02/06/252134 Order Status: Completed Updated: 02/06/252155 [...] 02/08/2025 4:21 PM EDT * Nara Aguilar, MEDICAL LABORATORY ASSISTANT - 02/07/2025 3:35 PM EDT [facility] [...] 67 BPM ATRIAL RATE (MCT) 69 BPM OK Interval 152 ms QRS-INTERVAL (MSEC) 80 ms QT Interval 386 ms QTC Interval 407 ms P Eden 57 degrees R AXIS (MCT) -71 degrees T Wave Eden 40 degrees Pedro Diagnosis Age and gender specific ECG analysis [...] Transcribed by Gareth Meza. Assessment & Plan Nusrta-Prajapati tear Hematemesis Previous history of alcohol abuse [...] Balbuena Admit Date: 02/06/2025 LOS: 1 days Location:[address] [place] [address] PCP on file: Provider Not In The [...] 67 BPM ATRIAL RATE (MCT) 69 BPM OK Interval 152 ms QRS-INTERVAL (MSEC) 80 ms QT Interval 386 ms QTC Interval 407 ms P Eden 57 degrees R AXIS (MCT) -71 degrees T Wave Eden 40 degrees Pedro Diagnosis Age and gender specific ECG analysis [...] Procedure Component Value Units Date/Time CTA chest [[id number]] Collected: 02/06/252134 Order Status: Completed Updated: 02/06/252155 [...] by Gareth Meza. CTA abdomen & pelvis [[id number]] Collected: 02/06/252134 Order Status: Completed Updated: 02/06/252155 [...] in this encounter H&P Notes * Von Slaon PA-C - 02/06/2025 10:35 PM EDT ERIC [...] COPD, previous alcohol abuse, and hypertensionpresents to [facility] in [place], [place] for further evaluation and management of coughing up blood. Family at bedside assisted with history of present illness. Family states patient used to have history of alcohol abuse however patient has since stopped drinking approximately 1 year prior. Patient and family state that approximately 2 weeks prior to admission [facility] and states patient underwent what sounds like transesophageal echocardiogram. Patient seemingly tolerated procedure well with no obvious acute complications at that time. On day of admission patient began to begin coughing up blood and family states she had blood coming out of her nose. Patient and family deny recent nausea/vomiting or other precipitous symptoms. Patient sought evaluation at [facility] emergency department where patient began coughing upand [...] file. 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 CTA abdomen & pelvis [[id number]] Collected: 02/06/252134 Order Status: Completed Updated: 02/06/252155 [...] with ER provider Dr. Ricardo Gordon at [facility] emergency department. -Laboratory work and pertinent imaging [...] ESOPHAGOGASTRODUODENOSCOPY (EGD); Surgeon: Marisa Garcia MD; Location: [facility]; Service: Gastroenterology; Laterality: N/A; Allergies: No Known [...] DNR. No vent. Disposition: 303 Tish Leiva, MEDICAL LABORATORY ASSISTANT Time spent [address] chest [...] is agreeable to see us in clinic. Passport Support Associate will see her in the morning. Cosigned [...] 67 BPM ATRIAL RATE (MCT) 69 BPM OK Interval 152 ms QRS-INTERVAL (MSEC) 80 ms QT Interval 386 ms QTC Interval 407 ms P Eden 57 degrees R AXIS (MCT) -71 degrees T Wave Eden 40 degrees Pedro Diagnosis Age and gender specific ECG analysis [...] Value Units Date/Time CTA abdomen & pelvis [[id number]] Resulted: 02/06/251910 Order Status: Sent Updated: 02/06/251918 CTA chest [[id number]] Resulted: 02/06/251910 Order Status: Sent Updated: 02/06/251917 [...] 02/06/25 EGD Impression: 8 cm long Nusrat Prjaapati tear in mid and distal esophagus with [...] bleeding or ulcer was visible. CPT Codes: 14814- EGD with bleeding control Surgeon(s) and Role: [...] HPI. Physical Exam ED Triage Vitals [02/06/25 6235] Encounter Vitals Group BP (!) 153/72 Systolic [...] dictated by Dr. Reymundo Salamanca. Transcribed by aGreth Meza. Medications sucralfate (CARAFATE) 100 mg/mL suspension [...] 67 BPM ATRIAL RATE (MCT) 69 BPM OK Interval 152 ms QRS-INTERVAL (MSEC) 80 ms QT Interval 386 ms QTC Interval 407 ms P Eden 57 degrees R AXIS (MCT) -71 degrees T Wave Eden 40 degrees Pedro Diagnosis Age and gender specific ECG analysis [...] AND HEMATOCRIT STAT 02/06/2025 8:22 PM EDT OK EGD TRANSORAL CONTROL BLEEDING ANY METHOD 02/06/2025 [...] - 15.7 GM/DL 02/08/2025 3:55 PM EDT [facility] Hematocrit 25.3(L) 34.1 - 44.9 % 02/08/2025 3:55 PM EDT [facility] Blood Venipuncture / Unknown 02/08/2025 3:46 PM EDT 02/08/2025 3:50 PM EDT Nara Aguilar MEDICAL LABORATORY ASSISTANT LAB BLOOD ORDERABLES Fi nal Result Performing Organization Address City/State/[facility] Co de Phone Number [facility] [address] [place] [address] * (ABNORMAL) Manual Differential (02/08/2025 4:41 AM EDT) Pathologist [facility] Total Counted 100 02/08/2025 9:00 AM EDT [facility] % Neutros (manual) 70(H) 50 - 65 % 02/08/2025 9:00 AM EDT [facility] % Bands (manual) 2 % 02/08/2025 9:00 AM EDT [facility] % Lymphs (manual) 23(L) 24 - 44 % 02/08/2025 9:00 AM EDT [facility] % Monos (manual) 1(L) 4 - 5 % 02/08/2025 9:00 AM EDT [facility] % Eos (manual) 4(H) 0 - 3 % 02/08/2025 9:00 AM EDT [facility] RBC Morphology abnormal(A) Normal 9:00 AM EDT [facility] Platelet Estimate Adequate Adequate 02/08/2025 9:00 AM EDT [facility] Hypochromia 1+ 02/08/2025 9:00 AM EDT [facility] Ovalocytes 1+ 02/08/2025 9:00 AM EDT [facility] ANC# 5.54 K/ L 02/08/2025 9:00 AM EDT [facility] Blood Venipuncture / Unknown 02/08/2025 4:41 AM EDT 02/08/2025 5:01 AM EDT us Nara Aguilar MEDICAL LABORATORY ASSISTANT LAB BLOOD ORDERABLES Fi nal Result [facility] [address] [phone] * (ABNORMAL) Comprehensive metabolic panel (02/08/2025 4:41 AM EDT) Sodium 135(L) 136 - 145 meq/L 02/08/2025 5:59 AM EDT [facility] Potassium 3.7 3.4 - 5.1 meq/L 02/08/2025 5:59 AM EDT [facility] Chloride 98 98 - 112 meq/L 02/08/2025 5:59 AM EDT [facility] CO2 29 22 - 29 meq/L 02/08/2025 5:59 AM EDT [facility] Calcium 9.1 8.4 - 10.2 mg/dL 02/08/2025 5:59 AM EDT [facility] Glucose 85 82 - 115 mg/dL 02/08/2025 5:59 AM EDT [facility] BUN 8.3(L) 9.8 - 20.1 mg/dL 02/08/2025 5:59 AM EDT [facility] Creatinine 0.77 0.57 - 1.11 mg/dL 02/08/2025 5:59 AM EDT [facility] BUN/Creatinine 11 8 - 20 02/08/2025 5:59 AM EDT [facility] eGFR (mL/min/1.73m2) 84 >=60 mL/min/1. 73m2 02/08/2025 5:59 AM EDT [facility] Albumin 2.3(L) 3.5 - 5.0 g/dL 02/08/2025 5:59 AM EDT [facility] Alkaline Phosphatase 38(L) 40 - 150 U/L 02/08/2025 5:59 AM EDT [facility] ALT <7 <=34 U/L 02/08/2025 5:59 AM EDT [facility] Comment: ALT2 reagent used for testing does not contain P5P supplementation and therefore may miss ALT elevations in patients with B6 deficiency. This population may be as high as 10% in the [place], with risk factors including malabsorption, drug interactions, and alcoholic hepatitis. AST 11 11 - 34 U/L 02/08/2025 5:59 AM EDT [facility] Comment: AST2 reagent used for testing does not contain P5P supplementation and therefore may miss AST elevations in patients with B6 deficiency. This population may be as high as 10% in the [place], with risk factors including malabsorption, drug interactions, and alcoholic hepatitis. Total Bilirubin 0.2 0.2 - 1.2 mg/dL 02/08/2025 5:59 AM EDT [facility] Protein, Total 5.0(L) 6.4 - 8.3 g/dL 02/08/2025 5:59 AM EDT [facility] Globulin 2.7 2.5 - 4.1 g/dL 02/08/2025 5:59 AM EDT [facility] Anion Gap 12 4 - 12 02/08/2025 5:59 AM EDT [facility] A/G Ratio 0.9 0.7 - 1.9 02/08/2025 5:59 AM EDT [facility] Osmolality Calc 267.8 mOsm/kg 5:59 AM EDT [facility] Blood Venipuncture / Unknown 02/08/2025 4:41 AM EDT 02/08/2025 5:05 AM EDT us Nara Aguilar MEDICAL LABORATORY ASSISTANT LAB BLOOD ORDERABLES Fi nal Result [facility] [address] [phone] * Magnesium (02/08/2025 4:41 AM EDT) Magnesium 1.6 1.6 - 2.6 mg/dL 02/08/2025 5:54 AM EDT [facility] Blood Venipuncture / Unknown 02/08/2025 4:41 AM EDT 02/08/2025 5:05 AM EDT Nara Aguilar MEDICAL LABORATORY ASSISTANT LAB BLOOD ORDERABLES Fi nal Result [facility] [address] [phone] * (ABNORMAL) CBC with automated diff (02/08/2025 4:41 AM EDT) [facility] WBC 7.7 4.0 - 10.0 K/ L 02/08/2025 6:12 AM EDT [facility] RBC 2.75(L) 3.93 - 5.22 M/ L 02/08/2025 6:12 AM EDT [facility] Hemoglobin 8.1(L) 11.2 - 15.7 GM/DL 02/08/2025 6:12 AM EDT [facility] Hematocrit 25.8(L) 34.1 - 44.9 % 02/08/2025 6:12 AM EDT [facility] MCV 94 79 - 95 fL 02/08/2025 6:12 AM EDT [facility] MCH 29.5 25.6 - 32.2 pg 02/08/2025 6:12 AM EDT [facility] MCHC 31.4(L) 32.2 - 35.5 GM/DL 02/08/2025 6:12 AM EDT [facility] RDW 14.2 11.7 - 14.4 % 02/08/2025 6:12 AM EDT [facility] Platelets 315 140 - 375 K/CU MM 02/08/2025 6:12 AM EDT [facility] MPV 9.0(L) 9.4 - 12.3 fL 02/08/2025 6:12 AM EDT [facility] NRBC Absolute <0.01 0 - 0.012 K/ul 02/08/2025 6:12 AM EDT [facility] Blood Venipuncture / Unknown 02/08/2025 4:41 AM EDT 02/08/2025 5:01 AM EDT Narrative [facility] - 02/08/2025 6:12 AM EDT When [...] noted Atypical Lymph flag noted Narairis Aguilar [facility] LAB BLOOD ORDERABLES Fi nal Result [facility] [address] [phone] * (ABNORMAL) Hemoglobin and hematocrit (02/07/2025 5:51 PM EDT) Hemoglobin 8.3(L) 11.2 - 15.7 GM/DL 02/07/2025 6:47 PM EDT [facility] Hematocrit 26.9(L) 34.1 - 44.9 % 02/07/2025 6:47 PM EDT [facility] Blood Venipuncture / Unknown 02/07/2025 5:51 PM EDT 02/07/2025 6:45 PM EDT Narairis Aguilar [facility] LAB BLOOD ORDERABLES Fi nal Result [facility] [address] [phone] * (ABNORMAL) Basic Metabolic Panel (02/07/2025 5:18 AM EDT) Sodium 136 136 - 145 meq/L 02/07/2025 6:20 AM EDT [facility] Potassium 4.9 3.4 - 5.1 meq/L 02/07/2025 6:20 AM EDT [facility] CO2 29 22 - 29 meq/L 02/07/2025 6:20 AM EDT [facility] Chloride 99 98 - 112 meq/L 02/07/2025 6:20 AM EDT [facility] Glucose 85 82 - 115 mg/dL 02/07/2025 6:20 AM EDT [facility] BUN 13.0 9.8 - 20.1 mg/dL 02/07/2025 6:20 AM EDT [facility] Creatinine 0.84 0.57 - 1.11 mg/dL 02/07/2025 6:20 AM EDT [facility] BUN/Creatinine 15 8 - 20 02/07/2025 6:20 AM EDT [facility] Calcium 10.0 8.4 - 10.2 mg/dL 02/07/2025 6:20 AM EDT [facility] Anion Gap 13(H) 4 - 12 02/07/2025 6:20 AM EDT [facility] eGFR (mL/min/1.73m2) 75 >=60 mL/min/1.7 3m2 02/07/2025 6:20 AM EDT [facility] Osmolality Calc 271.3 mOsm/kg 6:20 AM EDT [facility] Blood Venipuncture / Unknown 02/07/2025 5:18 AM EDT 02/07/2025 5:59 AM EDT us Von Sloan PA-C LAB BLOOD ORDERABLES Final Res ult Performing Organization Address City/State/[facility] Co de Phone Number [facility] [address] [phone] * (ABNORMAL) CBC - Hemogram (SJ-BKR) (02/07/2025 5:18 AM EDT) WBC 11.6(H) 4.0 - 10.0 K/ L 02/07/2025 6:04 AM EDT [facility] RBC 3.14(L) 3.93 - 5.22 M/ L 02/07/2025 6:04 AM EDT [facility] Hemoglobin 9.1(L) 11.2 - 15.7 GM/DL 02/07/2025 6:04 AM EDT [facility] Hematocrit 30.4(L) 34.1 - 44.9 % 02/07/2025 6:04 AM EDT [facility] MCV 97(H) 79 - 95 fL 02/07/2025 6:04 AM EDT [facility] MCH 29.0 25.6 - 32.2 pg 02/07/2025 6:04 AM EDT [facility] MCHC 29.9(L) 32.2 - 35.5 GM/DL 02/07/2025 6:04 AM EDT [facility] RDW 14.5(H) 11.7 - 14.4 % 02/07/2025 6:04 AM EDT [facility] Platelets 340 140 - 375 K/CU MM 02/07/2025 6:04 AM EDT [facility] MPV 9.1(L) 9.4 - 12.3 fL 02/07/2025 6:04 AM EDT [facility] Blood Venipuncture / Unknown 02/07/2025 5:18 AM EDT 02/07/2025 5:58 AM EDT us Von Sloan PA-C LAB BLOOD ORDERABLES Final Res ult [facility] [address] [place] [address] * (ABNORMAL) Hemoglobin and hematocrit (02/06/2025 8:22 PM EDT) Hemoglobin 9.0(L) 11.2 - 15.7 GM/DL 02/06/2025 8:28 PM EDT [facility] Hematocrit 29.3(L) 34.1 - 44.9 % 02/06/2025 8:28 PM EDT [facility] Blood Venipuncture / Unknown 02/06/2025 8:22 PM EDT 02/06/2025 8:25 PM EDT us Bear Whitney PA-C LAB BLOOD ORDERABLES Final Resul t [facility] [address] [place] [address], [facility] [phone] * CTA abdomen & pelvis (02/06/2025 7:19 [...] Transcribed by Gareth Meza. Laura Gibson [facility] CT ORDERABLES Final Result * CTA chest [...] - 10.0 K/ L 02/06[facility]2025 7[facility]07 [facility] RBC 3.47(L) 3.93 - 5.22 M/ L 02/06/2025 7:07 PM EDT [facility] Hemoglobin 10.2(L) 11.2 - 15.7 GM/DL 02/06/2025 7:07 PM [facility] Hematocrit 32.6(L) 34.1 - 44.9 % 02/06/2025 7:07 [facility] MCV 94 79 - 95 fL 02/06/2025 7:07 PM [facility] MCH 29.4 25.6 - 32.2 pg 02/06/2025 7:07 PM [facility] MCHC 31.3(L) 32.2 - 35.5 GM/DL 02/06/2025 7:07 PM [facility] RDW 14.6(H) 11.7 - 14.4 % 02/06/2025 7:07 PM [facility] Platelets 414(H) 140 - 375 K/CU MM 02/06/2025 7:07 PM EDT [facility] MPV 9.3(L) 9.4 - 12.3 fL 02/06/2025 7:07 PM EDT [facility] % Neutros 68 34 - 71 % 02/06/2025 7:07 PM EDT [facility] % Lymphs 23 19 - 52 % 02/06/2025 7:07 PM EDT [facility] % Monos 7 5 - 13 % 02/06/2025 7:07 PM EDT [facility] % Eos 2 1 - 6 % 02/06/2025 7:07 PM EDT [facility] % Baso 1 0 - 1 % 02/06/2025 7:07 PM EDT [facility] NRBC Absolute <0.01 0 - 0.012 K/ul 02/06/2025 7:07 PM EDT [facility] # Neutros 7.57(H) 1.56 - 6.13 K/ L 02/06/2025 7:07 PM EDT [facility] # Lymphs 2.55 1.18 - 3.74 K/ L 02/06/2025 7:07 PM EDT [facility] # Monos 0.72 0.24 - 0.86 K/ L 02/06/2025 7:07 PM EDT [facility] # Eos 0.18 0.04 - 0.36 K/ L 02/06/2025 7:07 PM EDT [facility] # Baso 0.07 0.01 - 0.08 K/ L 02/06/2025 7:07 PM EDT [facility] Immature Granulocytes-Re lative 0.40 0.01 - 0.43 % 02/06/2025 7:07 PM EDT [facility] # IG 0.04(H) 0.00 - 0.03 K/uL 02/06/2025 7:07 PM EDT [facility] Blood Venipuncture / Unknown 02/06/2025 6:25 PM EDT 02/06/2025 7:04 PM EDT Narrative [facility] - 02/06/2025 7:07 PM EDT When [...] ORDERABLES Final Resu lt Performing Organization Address [facility]/ZIP Co de Phone Number [facility] [address] [phone] * Type and Screen (02/06/2025 6:23 PM EDT) ABO/Rh O Positive 02/06/2025 6:05 PM EDT [facility] ([facility]) Antibody Screen Negative 02/06/2025 6:05 PM EDT [facility]OD [facility] ([facility]) HISTCHK HIST CHECK PERFORMED 02/06/2025 6:05 PM EDT [facility]LOOD [facility] ([facility]) Blood Venipuncture / Unknown 02/06/2025 6:23 PM EDT 02/06/2025 7:04 PM EDT us Laura Gibson DO [facility] TEST ORDERABLES Final Result Performing Organization Address [facility] Co de Phone Number [facility] ([facility]) [address] [place] [address] * (ABNORMAL) aPTT (02/06/2025 6:23 PM EDT) aPTT 32.8(H) 22.0 - 32.0 seconds 02/06/2025 7:21 PM EDT [facility] Blood Venipuncture / Unknown 02/06/2025 6:23 PM EDT 02/06/2025 7:04 PM EDT us Laura Gibson DO LAB BLOOD ORDERABLES Final Resu lt Performing Organization Address [facility]/ZIP Co de Phone Number [facility] [address] [phone] * Prothrombin time/INR (02/06/2025 6:23 PM EDT) [facility] Protime 10.4 9.0 - 12.0 seconds 02/06/2025 7:21 PM EDT [facility] INR 0.93 0.80 - 1.10 02/06/2025 7:21 PM EDT [facility] Comment: Recommended therapeutic ranges using International Normalized Ratio (INR) are: INR RANGE 2.0 - 3.0 Routine oral anticoagulant therapy 2.5 - 3.5 Oral anticoagulant therapy for patients with thromboembolic events on standard doses of Coumadin and those with mechanical heart valves. Blood Venipuncture / Unknown 02/06/2025 6:23 PM EDT 02/06/2025 7:04 PM EDT [employer] LAB BLOOD ORDERABLES Final Resu lt Performing Organization Address [facility] Co de Phone Number [facility] [address] [phone] * High Sensitivity Troponin I (02/06/2025 6:23 PM EDT) [facility] Troponin I High Sensitivity (pg/mL) 12.2 <=14 pg/mL 02/06/2025 7:29 PM EDT [facility] Blood Venipuncture / Unknown 02/06/2025 6:23 PM EDT 02/06/2025 7:04 PM EDT Narrative [facility] - 02/06/2025 7:29 PM EDT Applicable to [facility] only. Effective October 06 the lab will begin using a new chemistry analyzer. HsTroponin methodology, reference ranges and critical values have changed. [employer] [facility] BLOOD ORDERABLES Final Resu lt Performing Organization Address City/[facility]/ZIP Co de Phone Number [facility] [address] [phone] * Magnesium (02/06/2025 6:23 PM EDT) Magnesium 1.9 1.6 - 2.6 mg/dL 02/06/2025 7:26 PM EDT [facility] Blood Venipuncture / Unknown 02/06/2025 6:23 PM EDT 02/06/2025 7:04 PM EDT us Laura Gibson DO LAB BLOOD ORDERABLES Final Resu lt [facility] [address] [phone] * (ABNORMAL) Comprehensive metabolic panel (02/06/2025 6:23 PM EDT) Sodium 137 136 - 145 meq/L 02/06/2025 7:26 PM EDT [facility] Potassium 5.1 3.4 - 5.1 meq/L 02/06/2025 7:26 PM EDT [facility] Chloride 93(L) 98 - 112 meq/L 02/06/2025 7:26 PM EDT [facility] CO2 36(H) 22 - 29 meq/L 02/06/2025 7:26 PM EDT [facility] Calcium 11.6(H) 8.4 - 10.2 mg/dL 02/06/2025 7:26 PM EDT [facility] Glucose 104 82 - 115 mg/dL 02/06/2025 7:26 PM EDT [facility] BUN 13.4 9.8 - 20.1 mg/dL 02/06/2025 7:26 PM EDT [facility] Creatinine 1.00 0.57 - 1.11 mg/dL 02/06/2025 7:26 PM EDT [facility] BUN/Creatinine 13 8 - 20 02/06/2025 7:26 PM EDT [facility] eGFR (mL/min/1.73m2) 61 >=60 mL/min/1. 73m2 02/06/2025 7:26 PM EDT [facility] Albumin 2.9(L) 3.5 - 5.0 g/dL 02/06/2025 7:26 PM EDT [facility] Alkaline Phosphatase 53 40 - 150 U/L 02/06/2025 7:26 PM EDT [facility] ALT 8 <=34 U/L 02/06/2025 7:26 PM EDT [facility] Comment: ALT2 reagent used for testing does not contain P5P supplementation and therefore may miss ALT elevations in patients with B6 deficiency. This population may be as high as 10% in the [place], with risk factors including malabsorption, drug interactions, and alcoholic hepatitis. AST 14 11 - 34 U/L 02/06/2025 7:26 PM EDT [facility] Comment: AST2 reagent used for testing does not contain P5P supplementation and therefore may miss AST elevations in patients with B6 deficiency. This population may be as high as 10% in the [place], with risk factors including malabsorption, drug interactions, and alcoholic hepatitis. Total Bilirubin 0.2 0.2 - 1.2 mg/dL 02/06/2025 7:26 PM EDT [facility] Protein, Total 6.5 6.4 - 8.3 g/dL 02/06/2025 7:26 PM EDT [facility] Globulin 3.6 2.5 - 4.1 g/dL 02/06/2025 7:26 PM EDT [facility] Anion Gap 13(H) 4 - 12 02/06/2025 7:26 PM EDT [facility] A/G Ratio 0.8 0.7 - 1.9 02/06/2025 7:26 PM EDT [facility] Osmolality Calc 274.4 mOsm/kg 7:26 PM EDT [facility] Blood Venipuncture / Unknown 02/06/2025 6:23 PM EDT 02/06/2025 7:04 PM EDT us Laura Gibson DO LAB BLOOD ORDERABLES Final Resu lt [facility] [address] [phone] * ECG 12 lead (02/06/2025 5:41 PM EDT) VENTRICULAR RATE EKG/MIN 67 BPM GE MUSE ATRIAL RATE (MCT) 69 BPM GE MUSE OK Interval 152 ms GE MUSE QRS-INTERVAL (MSEC) 80 ms GE MUSE QT Interval 386 ms GE MUSE QTC Interval 407 ms GE MUSE P [place] 57 degrees GE MUSE R AXIS (MCT) -71 degrees GE MUSE T Wave [place] 40 degrees GE MUSE [place] Diagnosis Age and gender specific ECG analysis [...] HEAVENLY) 0043 (Given - Provider: Jordyn Garcia, PUBLIC HEALTH TECHNOLOGIST)0412 (Not Given - Provider: Jordyn Garcia, PUBLIC HEALTH TECHNOLOGIST - Reason: Patient/family refused)0740 (Given - Provider: Josee Lala, PUBLIC HEALTH TECHNOLOGIST)1025 (Given - Provider: Laura Falcon, ELECTRICAL ENGINEERING DESIGNER)1530 (Given - Provider: Laura Falcon, ELECTRICAL ENGINEERING DESIGNER)1940 (Given - Provider: Pete Mcnulty)2309 (Given - [...] minutes. documented in this encounter Care Teams [facility] Relationship Specialty Start Date End Date [facility], Provider Not In The System, [place] [address] PCP - General 02/06/25 documented as of this encounter
--- OUTSIDE RECORDS SUMMARY | 2025-02-06 19:00 | XMS_ITS | Encounter Summary ---
Author Organization [employer] ([place], [place], [place], [place]) Address [address] [place] [address] Care Team Providers Care Lead Section Supervisor Name Role Phone [facility], Provider Not In The System [...] unspecified whether nausea present Anticoagulated on Eliquis [facility] Cardiac Telemetry [address] [place] [address] Phone: tel: fax: [facility] [address] [place] [address] Phone: tel: fax: Referral ID Status Reason Start Date Expiration Date Visits Re quested Visits Authorized [id number] 1 1 Encounter Details Date Type Department Care Team (Late st Contact Info) Description 02/06/2025 7:00 PM EDT - 02/06/2025 7:39 PM EDT Surgery [facility] Endoscopy [address] [place] [address] Marisa Garcia MD [address] [place] [address] ESOPHAGOGASTRODUODENOSCOPY (EGD) Social History Tobacco Use Types [...] your living situation today? I have a [facility] place to live 02/07/2025 Think about [...] Do you speak a language other than Tajik at [facility]? No 02/07/2025 Do you want help with [...] In The System MD Jorje Hospital Course Director Clinical Data(s): GI, pulmonology Discharge Diagnosis: Nusrat-Prajapati tear Hematemesis [...] Medications These medications were sent to [facility] at [facility] [address] [facility] [address] [address] pantoprazole 40 MG tablet sucralfate 100 mg/mL [...] MD Jorje Relationship: PCP - General [address] [place] [address] Next Steps: Schedule an appointment as soon as possible for a visit in 1 week(s) Instructions: Unable to reach the office of pcp. Please call to schedule. repeat CBC Marisa Garcia MD Specialty: Gastroenterology [address] [facility] [address] [place] [address] Next Steps: Follow up in 2 month(s) Instructions: Repeat EGD office will be reaching out with appontment. Time Spent on Discharge: I spent 35 minutes in [id number] time with the patient and nursing staffconcerning [...] be sent through Care Everywhere. 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 I have independently interpreted chest images. I have actively directed the medical care, formulated diagnosis, and the plan of care. Patient requires a high complexity of decision making for assessment.Voice hostess technology (BoardEvals) is used for dictation of this note and sound-alike words might be erroneously placed despite reviewing the note for accuracy. Errors in dictation may reflect use of voice recognition software and not all errors in hostess may have been detected prior to signing. [...] 3 mL, nebulization, Q6H PRN, Nara Aguilar, BODY CORPORATE MANAGER ipratropium-albuteroL (DUO-NEB) 0.5 mg-3 mg(2.5 mg base)/3 mL nebulizer solution 3 mL, 3 mL, nebulization, Q4H, Nara Aguilar, BODY CORPORATE MANAGER, 3 mL at 02/08/25 1025 magnesium sulfate [...] Admit Date: 02/06/2025 LOS: 2 days Location:[facility]- PCP on file: Provider Not In The System MD Jorje Principal Problem: Nusrat-Prajapait tear ASSESSMENT & PLAN for 02/08/2025 Principal [...] Procedure Component Value Units Date/Time CTA chest [[id number]] Collected: 02/06/252134 Order Status: Completed Updated: 02/06/252155 [...] by Gareth Meza. CTA abdomen & pelvis [[id number]] Collected: 02/06/252134 Order Status: Completed Updated: 02/06/252155 [...] 67 BPM ATRIAL RATE (MCT) 69 BPM [place] Interval 152 ms QRS-INTERVAL (MSEC) 80 ms QT Interval 386 ms QTC Interval 407 ms P [place] 57 degrees R AXIS (MCT) -71 degrees T Wave [place] 40 degrees [place] Diagnosis Age and gender specific ECG analysis [...] Balbuena Admit Date: 02/06/2025 LOS: 1 days Location:[address] [place] [address] PCP on file: Provider Not In The [...] 67 BPM ATRIAL RATE (MCT) 69 BPM [place] Interval 152 ms QRS-INTERVAL (MSEC) 80 ms QT Interval 386 ms QTC Interval 407 ms P [place] 57 degrees R AXIS (MCT) -71 degrees T Wave [place] 40 degrees [place] Diagnosis Age and gender specific ECG analysis [...] Procedure Component Value Units Date/Time CTA chest [[id number]] Collected: 02/06/252134 Order Status: Completed Updated: 02/06/252155 [...] by Gareth Meza. CTA abdomen & pelvis [[id number]] Collected: 02/06/252134 Order Status: Completed Updated: 02/06/252155 [...] Sloan PA-C - 02/06/2025 10:35 PM EDT [facility] Patient Name: Iqra Balbuena : 1955 Date: 02/06/2025 PCP: Provider Not In The System MD Jorje Date of Admission: 02/06/2025 Chief Complaint: Coughing up blood Chief Complaint Patient presents with coughing up blood History of Present Illness Iqra Balbuena is a 69 y.o. female with a history of COPD, previous alcohol abuse, and hypertensionpresents to [facility] in [place], [place] for further evaluation and management of coughing up blood. Family at bedside assisted with history of present illness. Family states patient used to have history of alcohol abuse however patient has since stopped drinking approximately 1 year prior. Patient and family state that approximately 2 weeks prior to admission [facility] and states patient underwent what sounds like transesophageal echocardiogram. Patient seemingly tolerated procedure well with no obvious acute complications at that time. On day of admission patient began to begin coughing up blood and family states she had blood coming out of her nose. Patient and family deny recent nausea/vomiting or other precipitous symptoms. Patient sought evaluation at [facility] emergency department where patient began coughing [...] file. 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 Constitutional: General: She [...] 67 BPM ATRIAL RATE (MCT) 69 BPM [place] Interval 152 ms QRS-INTERVAL (MSEC) 80 ms QT Interval 386 ms QTC Interval 407 ms P [place] 57 degrees R AXIS (MCT) -71 degrees T Wave [place] 40 degrees [place] Diagnosis Age and gender specific ECG analysis [...] Procedure Component Value Units Date/Time CTA chest [[id number]] Collected: 02/06/252134 Order Status: Completed Updated: 02/06/252155 [...] by Gareth Meza. CTA abdomen & pelvis [[id number]] Collected: 02/06/252134 Order Status: Completed Updated: 02/06/252155 [...] suspension 1 g 1 g oral Q6H [facility] Marisa Garcia MD 1 g at [...] with ER provider Dr. Ricardo Gordon at [facility] emergency department. -Laboratory work and pertinent [...] ESOPHAGOGASTRODUODENOSCOPY (EGD); Surgeon: Marisa Garcia MD; Location: [facility]; Service: Gastroenterology; Laterality: N/A; Allergies: No Known [...] is agreeable to see us in clinic. Mopper will see her in the morning. Cosigned [...] 67 BPM ATRIAL RATE (MCT) 69 BPM [place] Interval 152 ms QRS-INTERVAL (MSEC) 80 ms QT Interval 386 ms QTC Interval 407 ms P [place] 57 degrees R AXIS (MCT) -71 degrees T Wave [place] 40 degrees [place] Diagnosis Age and gender specific ECG analysis [...] Value Units Date/Time CTA abdomen & pelvis [[id number]] Resulted: 02/06/251910 Order Status: Sent Updated: 02/06/251918 CTA chest [[id number]] Resulted: 02/06/251910 Order Status: Sent Updated: 02/06/251917 [...] bleeding or ulcer was visible. CPT Codes: 89171- EGD with bleeding control Surgeon(s) and Role: [...] Images reviewed, interpreted, and dictated by Dr. Reyumndo Salamanca. Transcribed by Gareth Meza. Medications sucralfate [...] 67 BPM ATRIAL RATE (MCT) 69 BPM NJ Interval 152 ms QRS-INTERVAL (MSEC) 80 ms QT Interval 386 ms QTC Interval 407 ms P [place] 57 degrees R AXIS (MCT) -71 degrees T Wave [place] 40 degrees [place] Diagnosis Age and gender specific ECG analysis [...] AND HEMATOCRIT STAT 02/06/2025 8:22 PM EDT [place] EGD TRANSORAL CONTROL BLEEDING ANY METHOD 02/06/2025 [...] Hemoglobin and hematocrit (02/08/2025 3:46 PM EDT) [facility] Hemoglobin 8.2(L) 11.2 - 15.7 GM/DL 02/08/2025 3:55 PM EDT [facility] Hematocrit 25.3(L) 34.1 - 44.9 % 02/08/2025 3:55 PM EDT [facility] Blood Venipuncture / Unknown 02/08/2025 3:46 PM EDT 02/08/2025 3:50 PM EDT us Nara Aguilar BODY CORPORATE MANAGER LAB BLOOD ORDERABLES Fi nal Result [facility] [address] [place] [address], [facility] [phone] * (ABNORMAL) Manual Differential (02/08/2025 4:41 AM EDT) [facility] Total Counted 100 02/08/2025 9:00 AM EDT [facility] % Neutros (manual) 70(H) 50 - 65 % 02/08/2025 9:00 AM EDT [facility] % Bands (manual) 2 % 02/08/2025 9:00 AM EDT [facility] % Lymphs (manual) 23(L) 24 - 44 % 02/08/2025 9:00 AM EDT [facility] % Monos (manual) 1(L) 4 - 5 % 02/08/2025 9:00 AM EDT [facility] % Eos (manual) 4(H) 0 - 3 % 02/08/2025 9:00 AM EDT [facility] RBC Morphology abnormal(A) Normal 9:00 AM EDT [facility] Platelet Estimate Adequate Adequate 02/08/2025 9:00 AM EDT [facility] Hypochromia 1+ 02/08/2025 9:00 AM EDT [facility] Ovalocytes 1+ 02/08/2025 9:00 AM EDT [facility] ANC# 5.54 K/ L 02/08/2025 9:00 AM EDT [facility] Blood Venipuncture / Unknown 02/08/2025 4:41 AM EDT 02/08/2025 5:01 AM EDT us Nara Aguilar BODY CORPORATE MANAGER LAB BLOOD ORDERABLES Fi nal Result Performing Organization Address [facility]/State/[facility] Co de Phone Number [facility] [address] [place] [address] * (ABNORMAL) Comprehensive metabolic panel (02/08/2025 4:41 AM EDT) Sodium 135(L) 136 - 145 meq/L 02/08/2025 5:59 AM EDT [facility] Potassium 3.7 3.4 - 5.1 meq/L 02/08/2025 5:59 AM EDT [facility] Chloride 98 98 - 112 meq/L 02/08/2025 5:59 AM EDT [facility] CO2 29 22 - 29 meq/L 02/08/2025 5:59 AM [facility] Calcium 9.1 8.4 - 10.2 mg/dL 02/08/2025 5:59 AM [facility] Glucose 85 82 - 115 mg/dL 02/08/2025 5:59 AM [facility] BUN 8.3(L) 9.8 - 20.1 mg/dL 02/08/2025 5:59 AM [facility] Creatinine 0.77 0.57 - 1.11 mg/dL 02/08/2025 5:59 AM [facility] BUN/Creatinine 11 8 - 20 02/08/2025 5:59 AM [facility] eGFR (mL/min/1.73m2) 84 >=60 mL/min/1. 73m2 02/08/2025 5:59 AM [facility] Albumin 2.3(L) 3.5 - 5.0 g/dL 02/08/2025 5:59 AM [facility] Alkaline Phosphatase 38(L) 40 - 150 U/L 02/08/2025 5:59 AM [facility] ALT <7 <=34 U/L 02/08/2025 5:59 AM [facility] Comment: ALT2 reagent used for testing does not contain P5P supplementation and therefore may miss ALT elevations in patients with B6 deficiency. This population may be as high as 10% in the [place], with risk factors including malabsorption, drug interactions, and alcoholic hepatitis. AST 11 11 - 34 U/L 02/08/2025 5:59 AM [facility] Comment: AST2 reagent used for testing does not contain P5P supplementation and therefore may miss AST elevations in patients with B6 deficiency. This population may be as high as 10% in the [place], with risk factors including malabsorption, drug interactions, and alcoholic hepatitis. Total Bilirubin 0.2 0.2 - 1.2 mg/dL 02/08/2025 5:59 AM [facility] Protein, Total 5.0(L) 6.4 - 8.3 g/dL 02/08/2025 5:59 AM [facility] Globulin 2.7 2.5 - 4.1 g/dL 02/08/2025 5:59 AM EDT [facility] Anion Gap 12 4 - 12 02/08/2025 5:59 AM EDT [facility] A/G Ratio 0.9 0.7 - 1.9 02/08/2025 5:59 AM EDT [facility] Osmolality Calc 267.8 mOsm/kg 5:59 AM EDT [facility] Blood Venipuncture / Unknown 02/08/2025 4:41 AM EDT 02/08/2025 5:05 AM EDT Nara Aguilar BODY CORPORATE MANAGER LAB BLOOD ORDERABLES Fi nal Result Performing Organization Address City/[facility]/ZIP Co de Phone Number [facility] [address] [phone] * Magnesium (02/08/2025 4:41 AM EDT) Magnesium 1.6 1.6 - 2.6 mg/dL 02/08/2025 5:54 AM EDT [facility] Blood Venipuncture / Unknown 02/08/2025 4:41 AM EDT 02/08/2025 5:05 AM EDT Nara Aguilar BODY CORPORATE MANAGER LAB BLOOD ORDERABLES Fi nal Result Performing Organization Address City/[facility]/ZIP Co de Phone Number [facility] [address] [phone] * (ABNORMAL) CBC with automated diff (02/08/2025 4:41 AM EDT) WBC 7.7 4.0 - 10.0 K/ L 02/08/2025 6:12 AM EDT [facility] RBC 2.75(L) 3.93 - 5.22 M/ L 02/08/2025 6:12 AM EDT [facility] Hemoglobin 8.1(L) 11.2 - 15.7 GM/DL 02/08/2025 6:12 AM EDT [facility] Hematocrit 25.8(L) 34.1 - 44.9 % 02/08/2025 6:12 AM EDT [facility] MCV 94 79 - 95 fL 02/08/2025 6:12 AM EDT [facility] MCH 29.5 25.6 - 32.2 pg 02/08/2025 6:12 AM EDT [facility] MCHC 31.4(L) 32.2 - 35.5 GM/DL 02/08/2025 6:12 AM EDT [facility] RDW 14.2 11.7 - 14.4 % 02/08/2025 6:12 AM EDT [facility] Platelets 315 140 - 375 K/CU MM 02/08/2025 6:12 AM EDT [facility] MPV 9.0(L) 9.4 - 12.3 fL 02/08/2025 6:12 AM EDT [facility] NRBC Absolute <0.01 0 - 0.012 K/ul 02/08/2025 6:12 AM EDT [facility] Blood Venipuncture / Unknown 02/08/2025 [...] Atypical Lymph flag noted us Nara Aguilar BODY CORPORATE MANAGER LAB BLOOD ORDERABLES Fi nal Result [facility] [address] [place] [id number] [phone] * (ABNORMAL) Hemoglobin and hematocrit (02/07/2025 5:51 PM EDT) Hemoglobin 8.3(L) 11.2 - 15.7 GM/DL 02/07/2025 6:47 PM EDT [facility] Hematocrit 26.9(L) 34.1 - 44.9 % 02/07/2025 6:47 PM EDT [facility] Blood Venipuncture / Unknown 02/07/2025 5:51 PM EDT 02/07/2025 6:45 PM EDT Nara Blainealbarosaúl BODY CORPORATE MANAGER LAB BLOOD ORDERABLES Fi nal Result [facility] [address] [phone] * (ABNORMAL) Basic Metabolic Panel (02/07/2025 5:18 AM EDT) Sodium 136 136 - 145 meq/L 02/07/2025 6:20 AM EDT [facility] Potassium 4.9 3.4 - 5.1 meq/L 02/07/2025 6:20 AM EDT [facility] CO2 29 22 - 29 meq/L 02/07/2025 6:20 AM EDT [facility] Chloride 99 98 - 112 meq/L 02/07/2025 6:20 AM EDT [facility] Glucose 85 82 - 115 mg/dL 02/07/2025 6:20 AM EDT [facility] BUN 13.0 9.8 - 20.1 mg/dL 02/07/2025 6:20 AM EDT [facility] Creatinine 0.84 0.57 - 1.11 mg/dL 02/07/2025 6:20 AM EDT [facility] BUN/Creatinine 15 8 - 20 02/07/2025 6:20 AM EDT [facility] Calcium 10.0 8.4 - 10.2 mg/dL 02/07/2025 6:20 AM EDT [facility] Anion Gap 13(H) 4 - 12 02/07/2025 6:20 AM EDT [facility] eGFR (mL/min/1.73m2) 75 >=60 mL/min/1.7 3m2 02/07/2025 6:20 AM EDT [facility] Osmolality Calc 271.3 mOsm/kg 6:20 AM EDT [facility] Blood Venipuncture / Unknown 02/07/2025 5:18 AM EDT 02/07/2025 5:59 AM EDT us Von Sloan PA-C LAB BLOOD ORDERABLES Final Res ult [facility] [address] [phone] * (ABNORMAL) CBC - Hemogram (SJ-BKR) (02/07/2025 5:18 AM EDT) WBC 11.6(H) 4.0 - 10.0 K/ L 02/07/2025 6:04 AM EDT [facility] RBC 3.14(L) 3.93 - 5.22 M/ L 02/07/2025 6:04 AM EDT [facility] Hemoglobin 9.1(L) 11.2 - 15.7 GM/DL 02/07/2025 6:04 AM EDT [facility] Hematocrit 30.4(L) 34.1 - 44.9 % 02/07/2025 6:04 AM EDT [facility] MCV 97(H) 79 - 95 fL 02/07/2025 6:04 AM EDT [facility] MCH 29.0 25.6 - 32.2 pg 02/07/2025 6:04 AM EDT [facility] MCHC 29.9(L) 32.2 - 35.5 GM/DL 02/07/2025 6:04 AM EDT [facility] RDW 14.5(H) 11.7 - 14.4 % 02/07/2025 6:04 AM EDT [facility] Platelets 340 140 - 375 K/CU MM 02/07/2025 6:04 AM EDT [facility] MPV 9.1(L) 9.4 - 12.3 fL 02/07/2025 6:04 AM EDT [facility] Blood Venipuncture / Unknown 02/07/2025 5:18 AM EDT 02/07/2025 5:58 AM EDT Von Sloan PA-C LAB BLOOD ORDERABLES Final Res ult [facility] [address] [phone] * (ABNORMAL) Hemoglobin and hematocrit (02/06/2025 8:22 PM EDT) Hemoglobin 9.0(L) 11.2 - 15.7 GM/DL 02/06/2025 8:28 PM EDT [facility] Hematocrit 29.3(L) 34.1 - 44.9 % 02/06/2025 8:28 PM EDT [facility] Blood Venipuncture / Unknown 02/06/2025 8:22 PM EDT 02/06/2025 8:25 PM EDT Bear Whitney PA-C LAB BLOOD ORDERABLES Final Resul t [facility] 1 [place] [address], [facility] [phone] * CTA abdomen & pelvis (02/06/2025 7:19 [...] the origin of both renal arteries. The TRERY appears patent. The abdominal aorta is normal [...] Transcribed by Gareth Meza. Laura Gibson DO [facility] [place] CT ORDERABLES Final Result * CTA chest [...] by Gareth Meza. us Laura Gibson DO [facility] [place] [place] CT ORDERABLES Final Result * (ABNORMAL) CBC with Auto Diff (02/06/2025 6:25 PM EDT) WBC 11.1(H) 4.0 - 10.0 K/ L 02/06/2025 7:07 PM EDT [facility] RBC 3.47(L) 3.93 - 5.22 M/ L 02/06/2025 7:07 PM EDT [facility] Hemoglobin 10.2(L) 11.2 - 15.7 GM/DL 02/06/2025 7:07 PM EDT [facility] Hematocrit 32.6(L) 34.1 - 44.9 % 02/06/2025 7:07 PM EDT [facility] MCV 94 79 - 95 fL 02/06/2025 7:07 PM EDT [facility] MCH 29.4 25.6 - 32.2 pg 02/06/2025 7:07 PM EDT [facility] MCHC 31.3(L) 32.2 - 35.5 GM/DL 02/06/2025 7:07 PM EDT [facility] RDW 14.6(H) 11.7 - 14.4 % 02/06/2025 7:07 PM EDT [facility] Platelets 414(H) 140 - 375 K/CU MM 02/06/2025 7:07 PM EDT [facility] MPV 9.3(L) 9.4 - 12.3 fL 02/06/2025 7:07 PM EDT [facility] % Neutros 68 34 - 71 % 02/06/2025 7:07 PM EDT [facility] % Lymphs 23 19 - 52 % 02/06/2025 7:07 PM EDT [facility] % Monos 7 5 - 13 % 02/06/2025 7:07 PM EDT [facility] % Eos 2 1 - 6 % 02/06/2025 7:07 PM EDT [facility] % Baso 1 0 - 1 % 02/06/2025 7:07 PM EDT [facility] NRBC Absolute <0.01 0 - 0.012 K/ul 02/06/2025 7:07 PM EDT [facility] # Neutros 7.57(H) 1.56 - 6.13 K/ L 02/06/2025 7:07 PM EDT [facility] # Lymphs 2.55 1.18 - 3.74 K/ L 02/06/2025 7:07 PM EDT [facility] # Monos 0.72 0.24 - 0.86 K/ L 02/06/2025 7:07 PM EDT [facility] # Eos 0.18 0.04 - 0.36 K/ L 02/06/2025 7:07 PM EDT [facility] # Baso 0.07 0.01 - 0.08 K/ L 02/06/2025 7:07 PM EDT [facility] Immature Granulocytes-Re lative 0.40 0.01 - 0.43 % 02/06/2025 7:07 PM EDT [facility] # IG 0.04(H) 0.00 - 0.03 K/uL 02/06/2025 7:07 PM EDT [facility] Blood Venipuncture / Unknown 02/06/2025 6:25 PM EDT 02/06/2025 7:04 PM EDT Narrative [facility] - 02/06/2025 7:07 PM EDT [...] DO LAB BLOOD ORDERABLES Final Resu lt [facility] [address] [phone] * Type and Screen (02/06/2025 6:23 PM EDT) ABO/Rh O Positive 02/06/2025 6:[address] [facility] [place] Antibody Screen Negative 02/06/2025 6:[address] [facility] [place] HISTCHK HIST CHECK PERFORMED 02/06/2025 6:05 PM EDT [facility] ([place]) Blood Venipuncture / Unknown 02/06/2025 6:23 PM EDT 02/06/2025 7:04 PM EDT Laura Gibson [facility] TEST ORDERABLES Final Result Performing Organization Address City/[facility]/ZIP Co de Phone Number [facility] ([place] [address] [place] [address], [facility] [phone] * (ABNORMAL) aPTT (02/06/2025 6:23 PM EDT) aPTT 32.8(H) 22.0 - 32.0 seconds 02/06/2025 7:21 PM EDT [facility] Blood Venipuncture / Unknown 02/06/2025 6:23 PM EDT 02/06/2025 7:04 PM EDT [facility] ORDERABLES Final Resu lt Performing Organization Address [facility] Co de Phone Number [facility] [address] [place] [address] * Prothrombin time/INR (02/06/2025 6:23 PM EDT) Protime 10.4 9.0 - 12.0 seconds 02/06/2025 7:21 PM EDT [facility] INR 0.93 0.80 - 1.10 02/06/2025 7:21 PM EDT [facility] Comment: Recommended therapeutic ranges using International Normalized Ratio (INR) are: INR RANGE 2.0 - 3.0 Routine oral anticoagulant therapy 2.5 - 3.5 Oral anticoagulant therapy for patients with thromboembolic events on standard doses of Coumadin and those with mechanical heart valves. Blood Venipuncture / Unknown 02/06/2025 6:23 PM EDT 02/06/2025 7:04 PM EDT [facility] BLOOD ORDERABLES Final Resu lt Performing Organization Address [facility]/ZIP Co de Phone Number [facility] [address] [phone] * High Sensitivity Troponin I (02/06/2025 6:23 PM EDT) [facility] Troponin I High Sensitivity (pg/mL) 12.2 <=14 pg/mL 02/06/2025 7:29 PM EDT [facility] Blood Venipuncture / Unknown 02/06/2025 6:23 PM EDT 02/06/2025 7:04 PM EDT [facility]ative [facility] HOSPITAL LABORATORY - 02/06/2025 7:29 PM EDT Applicable to [facility] only. Effective October 06 the lab will begin using a new chemistry analyzer. HsTroponin methodology, reference ranges and critical values have changed. [facility]OD [facility] Final Resu lt [facility] [address] [phone] * Magnesium (02/06/2025 6:23 PM EDT) [facility] Magnesium 1.9 1.6 - 2.6 mg/dL 02/06/2025 7:26 PM EDT [facility] Blood Venipuncture / Unknown 02/06/2025 6:23 PM EDT 02/06/2025 7:04 PM EDT [facility] LAB BLOOD ORDERABLES Final Resu lt [facility] [address] [phone] * (ABNORMAL) Comprehensive metabolic panel (02/06/2025 6:23 PM EDT) [facility] Sodium 137 136 - 145 meq/L 02/06/2025 7:26 PM EDT [facility] Potassium 5.1 3.4 - 5.1 meq/L 02/06/2025 7:26 PM EDT [facility] Chloride 93(L) 98 - 112 meq/L 02/06/2025 7:26 PM EDT [facility] CO2 36(H) 22 - 29 meq/L 02/06/2025 7:26 PM [facility] Calcium 11.6(H) 8.4 - 10.2 mg/dL 02/06/2025 7:26 PM [facility] Glucose 104 82 - 115 mg/dL 02/06/2025 7:26 PM [facility] BUN 13.4 9.8 - 20.1 mg/dL 02/06/2025 7:26 PM [facility] Creatinine 1.00 0.57 - 1.11 mg/dL 02/06/2025 7:26 PM [facility] BUN/Creatinine 13 8 - 20 02/06/2025 7:26 PM [facility] eGFR (mL/min/1.73m2) 61 >=60 mL/min/1. 73m2 02/06/2025 7:26 PM [facility] Albumin 2.9(L) 3.5 - 5.0 g/dL 02/06/2025 7:26 PM [facility] Alkaline Phosphatase 53 40 - 150 U/L 02/06/2025 7:26 PM [facility] ALT 8 <=34 U/L 02/06/2025 7:26 PM [facility] Comment: ALT2 reagent used for testing does not contain P5P supplementation and therefore may miss ALT elevations in patients with B6 deficiency. This population may be as high as 10% in the [place], with risk factors including malabsorption, drug interactions, and alcoholic hepatitis. AST 14 11 - 34 U/L 02/06/2025 7:26 PM [facility] Comment: AST2 reagent used for testing does not contain P5P supplementation and therefore may miss AST elevations in patients with B6 deficiency. This population may be as high as 10% in the [place], with risk factors including malabsorption, drug interactions, and alcoholic hepatitis. Total Bilirubin 0.2 0.2 - 1.2 mg/dL 02/06/2025 7:26 PM [facility] Protein, Total 6.5 6.4 - 8.3 g/dL 02/06/2025 7:26 PM [facility] Globulin 3.6 2.5 - 4.1 g/dL 02/06/2025 7:26 PM EDT [facility] Anion Gap 13(H) 4 - 12 02/06/2025 7:26 PM EDT [facility] A/G Ratio 0.8 0.7 - 1.9 02/06/2025 7:26 PM EDT [facility] Osmolality Calc 274.4 mOsm/kg 7:26 PM EDT [facility] Blood Venipuncture / Unknown 02/06/2025 6:23 PM EDT 02/06/2025 7:04 PM EDT us Laura Gibson DO LAB BLOOD ORDERABLES Final Resu lt Performing Organization Address City/[facility]/ZIP Co de Phone Number [facility] [address] [phone] * ECG 12 lead (02/06/2025 5:41 PM EDT) VENTRICULAR RATE EKG/MIN 67 BPM GE MUSE ATRIAL RATE (MCT) 69 BPM GE MUSE [place] Interval 152 ms GE MUSE QRS-INTERVAL (MSEC) 80 ms GE MUSE QT Interval 386 ms GE MUSE QTC Interval 407 ms GE MUSE P [place] 57 degrees GE MUSE R AXIS (MCT) -71 degrees GE MUSE T Wave [place] 40 degrees GE MUSE [place] Diagnosis Age and gender specific ECG analysis Normal sinus rhythm Left axis deviation Abnormal ECG When compared with ECG of 06-OCT-2024 19:45, Significant changes have occurred Confirmed by Edvin ESPINOZA, Margret (2019) on 02/08/2025 5:26:45 PM GE MUSE 02/06/2025 5:41 PM EDT 02/08/2025 5:26 PM EDT us Laura Gibson DO ECG ORDERABLES Final Result Performing Organization Address [facility]/ZIP Co de Phone Number Enjoi * EKG-SCANNED (02/06/2025) Narrative 02/06/2025 Ordered by [...] volume Nebulization 1821 (Given - Provider: Sharona aMradiaga, PROCTOLOGIST) 0043 (Given - Provider: Jordyn Garcia, COMPUTER TECHNOLOGY TEACHER)0412 (Not Given - Provider: Jordyn Garcia COMPUTER TECHNOLOGY TEACHER - Reason: Patient/family refused)0740 (Given - Provider: Josee Lala, COMPUTER TECHNOLOGY TEACHER)1025 (Given - Provider: Laura Falcon, PROCTOLOGIST)1530 (Given - Provider: Laura Falcon, PROCTOLOGIST)1940 (Given - Provider: Pete Mcnulty)2309 (Given - [...] minutes. documented in this encounter Care Teams Lead Section Supervisor Relationship Specialty Start Date End Date Jorje, Provider Not In The System, [place] [address] PCP - General 02/06/25 documented as of this encounter
[2025-02-21 16:00] VITALS: O2SAT 98
[2025-02-21 16:06] VITALS: BP 150/70; PULSE 78; RESP 25; TEMP 36.9; O2SAT 92; BMI 31.2
--- NOTE | 2025-02-21 16:08 | PC.NURSE ---
RT notified of VBG in lab
--- OUTSIDE RECORDS SUMMARY | 2025-02-21 16:10 | XMS_ITS ---
Laboratory report Created on: February 02, 2025 KYLEE ANAYA : 1955 Sex: Female Author Organization Unknown PROBLEMS Problems List Code Description RESULTS Laboratory Orders Date Order Code Test 2025-01-28 367385 PROTEIN ELEC + I NTERP, SERUM Laboratory Results Date LOINC Test Value Unit Reference Range Interpre tation 2025-01-28 2885-2 PROTEIN, TOTAL 5.4 G/DL 6.0-8.5 L 2025-01-28 2862-1 ALBUMIN 2.8 G/DL 2.9-4.4 L 2025-01-28 2865-4 [id number]-9-[id number] .4 G/DL 0.0-0.4 2025-01-28 2868-8 [id number]-7-[id number] .8 G/DL 0.4-1.0 2025-01-28 2871-2 BETA GLOBULIN .8 G/DL 0.7-1.3 2025-01-28 2874-6 GAMMA GLOBULIN .6 G/DL 0.4-1.8 2025-01-28 50028-8 M-SPIKE NOB G/DL NOT OBSERVED 2025-01-28 45100-3 GLOBULIN, TOTAL 2.6 G/DL 2.2-3.9 2025-01-28 1759-0 A/G RATIO 1.1 0.7-1.7 2025-01-28 03956-3 P E INTERPRETATION, S C 2025-01-28 17918-4 PDF IMAGE
--- OUTSIDE RECORDS SUMMARY | 2025-02-21 16:11 | XMS_ITS ---
Author Organization Unknown Vital Signs BpStanding BpSitting BpSupine Date Temperature HeartRate Weight Hei ght Spo2 Respiration Bmi HeadCircumference FieldCount TimeRecorded NeckCircumferen ce WaistCircumference Pulse 02/04 00:00 :00 99.7 119,0 5,2 21.7 6 4 02/11/2025 14:45:00 122/70 01/21 00:00 :00 98 94 120,0 5,2 64 21.9 5 7 02/11/2025 13:30:00 12/10 00:00 :00 97.5 120,0 5,2 21.9 5 4 02/11/2025 13:30:00 10/20 00:00 :00 97.5 122,0 5,2 94 22.3 1 5 02/11/2025 14:45:00 09/10 00:00 :00 111,0 5,2 20.3 3 02/11/2025 15:30:00 118/62 08/18 00:00 :00 98.6 76 110,0 5,2 97 20.1 2 7 02/11/2025 13:00:00 140/74 08/03 00:00 :00 98.6 78 119,0 5,2 97 21.7 6 7 02/11/2025 10:00:00 118/62 05/15 00:00 :00 98.6 110 113,0 5,2 85 20.6 7 7 02/11/2025 13:00:00 136/88 05/05 00:00 :00 113,0 5,2 20.6 7 4 02/11/2025 14:00:00 118/68 05/01 00:00 :00 98.6 68 113,0 5,2 92 20.6 7 7 02/11/2025 10:30:00 140/68 04/23 00:00 :00 98.6 87 113,0 5,2 95 20.6 7 7 02/11/2025 10:00:00 184/102 03/24 00:00 :00 118,0 5,2 21.5 8 4 02/11/2025 10:45:00 180/100 02/20 00:00 :00 98.8 98 123,0 5,2 94 22.4 9 7 02/11/2025 09:15:00 160/100 02/17 00:00 :00 98.6 97 123,0 5,2 94 22.4 9 7 02/11/2025 11:30:00
--- OUTSIDE RECORDS SUMMARY | 2025-02-21 16:11 | XMS_ITS | Clinical Summary ---
Author Organization [facility] Address [address] [place] [address] Phone Care Team Providers Care Professor Computer Science Name Role Phone Unavailable Unavailable Conditions or Problems No information available. Medications No information available. Medications Administered No information available. Allergies, Adverse Reactions, Alerts No information available. Results No information available. Plan of Care No information available. Procedures No information available. Vital Signs No information available. Immunizations No information available. Advance Directives No information available.
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
--- OUTSIDE RECORDS SUMMARY | 2025-02-21 16:12 | XMS_ITS | Clinical Summary ---
Author Organization Healthcare Address [address] [place] [address] Care Team Providers Care Meat Grader Name Role Phone Rajat Navarro MD Primary Care Provider [phone] Social History Tobacco Use Types Packs/Day Years [...] 2005 UKY-Zoster Vaccines (1 of 2) 2005 [id number] Vaccine ( - 2023- season) 2024 05/24/2021, [...] this topic Insurance [employer] MEDICARE Care Teams Meat Grader Relationship Specialty Start Date End Date Rajat Navarro MD [address] [place] [address] [address] [place] [address] PCP - General 07/15/20
--- OUTSIDE RECORDS SUMMARY | 2025-02-21 16:12 | XMS_ITS ---
Laboratory report Created on: February 02, 2025 KYLEE ANAYA : 1955 Sex: Female Author Organization Unknown PROBLEMS Problems List Code Description RESULTS Laboratory Orders Date Order Code Test 2024-12-18 [id number] ACID FAST SMEAR+ CULTURE W/RFLX 2024-12-18 357297 FUNGUS CULTURE W ITH STAIN Laboratory Results Date LOINC Test Value Unit Reference Range Interpre tation 2024-12-18 8100-0 AFB SPECIMEN PROCESSING CONC 2024-12-18 27332-2 ACID FAST SMEAR N 2024-12-18 35123-8 ACID FAST CULTURE N 2024-12-18 51038-9 FUNGUS STAIN FINAL 2024-12-18 580-1 RESULT 1 JOSSELINE 2024-12-18 580-1 FUNGUS (MYCOLOGY ) CULTURE FINAL A 2024-12-18 580-1 RESULT 1 CANDGL A 2024-12-18 55084-5 RESULT 2 CANDDU A
--- OUTSIDE RECORDS SUMMARY | 2025-02-21 16:12 | XMS_ITS | Clinical Summary ---
Author Organization [employer] ([place], [place], [place], [place]) Address [address] [place] [address] Care Team Providers Care Cryptologist Name Role Phone [facility], Provider Not In The System MD Primary Care Provider Unavailable Allergies No known active allergies Medications albuterol 90 mcg/actuation inhaler Inhale 2 puffs by mouth every 6 (six) hours as needed for wheezing. Active calcium carbonate-joseph min D3 600 mg-5 mcg (200 unit) per tablet Take 1 tablet by mouth 2 (two) times daily. Active cholecalcifero l, vitamin D3, 1,250 mcg (50,000 unit) tab Take 1 tablet (50,000 Units total) by mouth once a week. Active ALPRAZolam (XANAX) 1 MG tablet Take 1 tablet (1 mg total) by mouth 2 (two) times daily as needed for anxiety. Active gabapentin (NEURONTIN) 800 MG tablet Take 1 tablet (800 mg total) by mouth 3 (three) times daily. Max Daily Amount: 2,400 mg Active DULoxetine (CYMBALTA) 30 MG capsule Take 1 capsule (30 mg total) by mouth daily. Active furosemide (LASIX) 40 MG tablet Take 1 tablet (40 mg total) by mouth daily. Active HYDROcodone-ac etaminophen (NORCO) 10-325 mg per tablet Take 1 tablet by mouth every 6 (six) hours as needed for pain. Active losartan (COZAAR) 100 MG tablet Take [...] (145 mcg total) daily as needed (for Constipation) . Active polyethylene glycol (GLYCOLAX) 17 gram packet Take 17 g by mouth daily. Active tiotropium (Spiriva with HandiHaler) 18 mcg inhalation capsule Inhale 1 capsule (18 mcg total) by mouth daily. 30 capsule 10/10/19 25 026 Active apixaban (Eliquis) 5 mg tab tablet Take 1 tablet (5 mg total) by mouth 2 (two) times daily. Active pantoprazole (PROTONIX) 40 MG tablet Take 1 tablet (40 mg total) by mouth 2 (two) times daily before meals for 30 days. 60 tablet 02/10/20 025 Active amLODIPine (NORVASC) 5 MG tablet Take 1 tablet (5 mg total) by mouth daily. Active digoxin (LANOXIN) 125 mcg (0.125 mg) tablet Take 1 tablet (125 mcg total) by mouth daily. Active fluticasone propion-salmet Jolene (ADVAIR) 500-50 mcg/dose diskus inhaler Inhale 1 puff by mouth 2 (two) times daily. Active metoprolol succinate (TOPROL-XL) 100 MG 24 hr tablet Take 1 tablet (100 mg total) by mouth daily. Active celecoxib (CeleBREX) 50 MG capsule Take 1 capsule (50 mg total) by mouth daily. 025 Discontinued(St op Taking at Discharge) sucralfate (CARAFATE) 100 mg/mL suspension Take 10 mLs (1 g total) by mouth every 6 (six) hours for 10 days. 400 mL 02/10/20 025 aspirin 81 MG EC tablet Take 1 tablet (81 mg total) by mouth daily. 025 Discontinued Active Problems Problem Noted Date Diagnosed Date Hematemesis 02/06/2025 Nusrat-Prajapati tear 02/06/2025 Acute on chronic hypoxic respiratory failure Encounters Date Type Department Care Team Description 02/06/2025 7:00 PM EDT - 02/06/2025 7:39 PM EDT Surgery [facility] Endoscopy [address] [place] [id number] Marisa Garcia MD ESOPHAGOGASTRODUODENOSCOPY (EGD) 02/06/2025 5:35 PM EDT - 02/09/2025 12:35 PM EDT Hospital Encounter [facility] Cardiac Telemetry 1 [place] [id number] Laura Gibson DO Turley, David, MD Hughes, Isaac, PA-C Poonawala, Stephanie, APRN Siddiqi, Ismaeel, DO Zohary, Yasser, MD Hematemesis with nausea (Primary Dx); Hematemesis; Nusrat-Prajapati tear; Hematemesis, unspecified whether nausea present; Anticoagulated on Eliquis; Malignant neoplasm of lung, unspecified laterality, unspecified part of lung (HCC); Tobacco abuse Discharge Disposition: Home or Self Care 02/06/2025 Travel from Last 3 Months Social History [...] Do you speak a language other than [place] at [facility]? No 02/07/2025 Do you want help [...] 02/09/2025 11:05 AM EDT Inhaled Oxygen Concentration 40% 10/07/2024 1 0:56 PM EDT Weight 49.9 kg (110 lb) 02/06/2025 5:45 PM EDT Height 154.9 cm (5' 1 ) 02/06/2025 5:45 PM EDT Body Mass Index 20.78 02/06/2025 5:45 PM EDT Plan of Treatment Health Maintenance [...] [id number] 08/15/2024 Influenza Vaccine (#1) 2025 05/30/2023 Medical Devices Implanted Type Area Voice Intercept Technician Device Identifier Shelf Expiration Date Model / Serial / Lot Duraclip Sm 16mm [id number] - [id number] Implanted:Qty: 3 on 02/06/2025 by Marisa Garcia MD at [facility] N/A: Esophagus CONMED 04/28/2027 [id number] / / [id number] Procedures Procedure Name Priority Date/Time Associated Diagnosis Comments HEMOGLOBIN AND HEMATOCRIT Routine 02/08/2025 3:46 PM EDT MANUAL DIFFERENTIAL Routine 02/08/2025 4 :41 AM EDT COMPREHENSIVE METABOLIC PANEL Routine 02/08/2025 4:41 AM EDT MAGNESIUM Routine 02/08/2025 4:41 AM EDT CBC W/ AUTO DIFF Routine 02/08/2025 4:41 AM EDT HEMOGLOBIN AND HEMATOCRIT Routine 02/07/2025 5:51 PM EDT BASIC METABOLIC PANEL STAT 02/07/2025 5:18 AM EDT CBC HEMOGRAM (SJ-BKR) STAT 02/07/2025 5:18 AM EDT HEMOGLOBIN AND HEMATOCRIT STAT 02/06/2025 8:22 PM EDT [place] EGD TRANSORAL CONTROL BLEEDING ANY METHOD 02/06/2025 7:30 PM EDT Hematemesis CTA ABDOMEN & PELVIS STAT 02/06/2025 7:19 PM EDT CTA CHEST STAT 02/06/2025 7:17 PM EDT CBC W/ AUTO DIFF STAT 02/06/2025 6:25 PM EDT TYPE AND SCREEN ([place] BKR) STAT 02/06/2025 6:23 PM EDT APTT STAT 02/06/2025 6:23 PM EDT PROTHROMBIN TIME/INR STAT 02/06/2025 6:23 PM EDT HIGH SENSITIVITY TROPONIN I STAT 02/06/2025 6:23 PM EDT MAGNESIUM STAT 02/06/2025 6:23 PM EDT COMPREHENSIVE METABOLIC PANEL STAT 02/06/2025 6:23 PM EDT FS_MODEL_IP_ECG 12-LEAD Routine 02/06/2025 5:41 PM EDT EKG-SCANNED 02/06/2025 from Last 3 Months Results * (ABNORMAL) Hemoglobin and hematocrit (02/08/2025 3:46 PM EDT) Only the most recent of3 resultswithin the time period is included. [facility] Hemoglobin 8.2(L) 11.2 - 15.7 GM/DL 02/08/2025 3:55 PM EDT [facility] Hematocrit 25.3(L) 34.1 - 44.9 % 02/08/2025 3:55 PM EDT [facility] Blood Venipuncture / Unknown 02/08/2025 3:46 PM EDT 02/08/2025 3:50 PM EDT us Nara Aguilar PRINTING PLATE CLERK LAB BLOOD ORDERABLES Fi nal Result [facility] [address] [place], [place] [address] [phone] * (ABNORMAL) CBC with automated diff (02/08/2025 4:41 AM EDT) Only the most recent of2 resultswithin the time period is included. [facility] WBC 7.7 4.0 - 10.0 K/ L 02/08/2025 6:12 AM EDT [facility] RBC 2.75(L) 3.93 - 5.22 M/ L 02/08/2025 6:12 AM EDT [facility] Hemoglobin 8.1(L) 11.2 - 15.7 GM/DL 02/08/2025 6:12 AM EDT [facility] Hematocrit 25.8(L) 34.1 - 44.9 % 02/08/2025 6:12 AM EDT [facility] MCV 94 79 - 95 fL 02/08/2025 6:12 AM EDT [facility] MCH 29.5 25.6 - 32.2 pg 02/08/2025 6:12 AM EDT [facility] MCHC 31.4(L) 32.2 - 35.5 GM/DL 02/08/2025 6:12 AM EDT [facility] RDW 14.2 11.7 - 14.4 % 02/08/2025 6:12 AM EDT [facility] Platelets 315 140 - 375 K/CU MM 02/08/2025 6:12 AM EDT [facility] MPV 9.0(L) 9.4 - 12.3 fL 02/08/2025 6:12 AM EDT [facility] NRBC Absolute <0.01 0 - 0.012 K/ul 02/08/2025 6:12 AM EDT [facility] Blood Venipuncture / Unknown 02/08/2025 4:41 AM EDT 02/08/2025 5:01 AM EDT Narrative [facility] - 02/08/2025 6:12 AM EDT When [...] Atypical Lymph flag noted us Nara Aguilar PRINTING PLATE CLERK LAB BLOOD ORDERABLES Fi nal Result [facility] [address] [phone] * (ABNORMAL) Manual Differential (02/08/2025 4:41 AM EDT) Total Counted 100 02/08/2025 9:00 AM EDT [facility] % Neutros (manual) 70(H) 50 - 65 % 02/08/2025 9:00 AM EDT [facility] % Bands (manual) 2 % 02/08/2025 9:00 AM EDT [facility] % Lymphs (manual) 23(L) 24 - 44 % 02/08/2025 9:00 AM EDT [facility] % Monos (manual) 1(L) 4 - 5 % 02/08/2025 9:00 AM EDT [facility] % Eos (manual) 4(H) 0 - 3 % 02/08/2025 9:00 AM EDT [facility] RBC Morphology abnormal(A) Normal 9:00 AM EDT [facility] Platelet Estimate Adequate Adequate 02/08/2025 9:00 AM EDT [facility] Hypochromia 1+ 02/08/2025 9:00 AM EDT [facility] Ovalocytes 1+ 02/08/2025 9:00 AM EDT [facility] ANC# 5.54 K/ L 02/08/2025 9:00 AM EDT [facility] Blood Venipuncture / Unknown 02/08/2025 4:41 AM EDT 02/08/2025 5:01 AM EDT us Nara Aguilar PRINTING PLATE CLERK LAB BLOOD ORDERABLES Fi nal Result [facility] [address] [phone] * Magnesium (02/08/2025 4:41 AM EDT) Only the most recent of2 resultswithin the time period is included. Magnesium 1.6 1.6 - 2.6 mg/dL 02/08/2025 5:54 AM EDT [facility] Blood Venipuncture / Unknown 02/08/2025 4:41 AM EDT 02/08/2025 5:05 AM EDT us Nara Aguilar PRINTING PLATE CLERK LAB BLOOD ORDERABLES Fi nal Result [facility] [address] [phone] * (ABNORMAL) Comprehensive metabolic panel (02/08/2025 4:41 AM EDT) Only the most recent of2 resultswithin the time period is included. Sodium 135(L) 136 - 145 meq/L 02/08/2025 5:59 AM EDT [facility] Potassium 3.7 3.4 - 5.1 meq/L 02/08/2025 5:59 AM EDT [facility] Chloride 98 98 - 112 meq/L 02/08/2025 5:59 AM EDT [facility] CO2 29 22 - 29 meq/L 02/08/2025 5:59 AM EDT [facility] Calcium 9.1 8.4 - 10.2 mg/dL 02/08/2025 5:59 AM EDT [facility] Glucose 85 82 - 115 mg/dL 02/08/2025 5:59 AM EDT [facility] BUN 8.3(L) 9.8 - 20.1 mg/dL 02/08/2025 5:59 AM EDT [facility] Creatinine 0.77 0.57 - 1.11 mg/dL 02/08/2025 5:59 AM EDT [facility] BUN/Creatinine 11 8 - 20 02/08/2025 5:59 AM EDT [facility] eGFR (mL/min/1.73m2) 84 >=60 mL/min/1. 73m2 02/08/2025 5:59 AM EDT [facility] Albumin 2.3(L) 3.5 - 5.0 g/dL 02/08/2025 5:59 AM EDT [facility] Alkaline Phosphatase 38(L) 40 - 150 U/L 02/08/2025 5:59 AM EDT [facility] ALT <7 <=34 U/L 02/08/2025 5:59 AM EDT [facility] Comment: ALT2 reagent used for testing does not contain P5P supplementation and therefore may miss ALT elevations in patients with B6 deficiency. This population may be as high as 10% in the [place], with risk factors including malabsorption, drug interactions, and alcoholic hepatitis. AST 11 11 - 34 U/L 02/08/2025 5:59 AM EDT [facility] Comment: AST2 reagent used for testing does not contain P5P supplementation and therefore may miss AST elevations in patients with B6 deficiency. This population may be as high as 10% in the [place], with risk factors including malabsorption, drug interactions, and alcoholic hepatitis. Total Bilirubin 0.2 0.2 - 1.2 mg/dL 02/08/2025 5:59 AM EDT [facility] Protein, Total 5.0(L) 6.4 - 8.3 g/dL 02/08/2025 5:59 AM EDT [facility] Globulin 2.7 2.5 - 4.1 g/dL 02/08/2025 5:59 AM EDT [facility] Anion Gap 12 4 - 12 02/08/2025 5:59 AM EDT [facility] A/G Ratio 0.9 0.7 - 1.9 02/08/2025 5:59 AM EDT [facility] Osmolality Calc 267.8 mOsm/kg 5:59 AM EDT [facility] Blood Venipuncture / Unknown 02/08/2025 4:41 AM EDT 02/08/2025 5:05 AM EDT us Nara Aguilar APRN LAB BLOOD ORDERABLES Fi nal Result [facility] [address] [phone] * (ABNORMAL) CBC - Hemogram (SJ-BKR) (02/07/2025 5:18 AM EDT) WBC 11.6(H) 4.0 - 10.0 K/ L 02/07/2025 6:04 AM EDT [facility] RBC 3.14(L) 3.93 - 5.22 M/ L 02/07/2025 6:04 AM EDT [facility] Hemoglobin 9.1(L) 11.2 - 15.7 GM/DL 02/07/2025 6:04 AM EDT [facility] Hematocrit 30.4(L) 34.1 - 44.9 % 02/07/2025 6:04 AM EDT [facility] MCV 97(H) 79 - 95 fL 02/07/2025 6:04 AM EDT [facility] MCH 29.0 25.6 - 32.2 pg 02/07/2025 6:04 AM EDT [facility] MCHC 29.9(L) 32.2 - 35.5 GM/DL 02/07/2025 6:04 AM EDT [facility] RDW 14.5(H) 11.7 - 14.4 % 02/07/2025 6:04 AM EDT [facility] Platelets 340 140 - 375 K/CU MM 02/07/2025 6:04 AM EDT [facility] MPV 9.1(L) 9.4 - 12.3 fL 02/07/2025 6:04 AM EDT [facility] Blood Venipuncture / Unknown 02/07/2025 5:18 AM EDT 02/07/2025 5:58 AM EDT us Von Sloan PA-C LAB BLOOD ORDERABLES Final Res ult [facility] [address] [place] [id number] [phone] * (ABNORMAL) Basic Metabolic Panel (02/07/2025 5:18 AM EDT) Sodium 136 136 - 145 meq/L 02/07/2025 6:20 AM EDT [facility] Potassium 4.9 3.4 - 5.1 meq/L 02/07/2025 6:20 AM EDT [facility] CO2 29 22 - 29 meq/L 02/07/2025 6:20 AM EDT [facility] Chloride 99 98 - 112 meq/L 02/07/2025 6:20 AM EDT [facility] Glucose 85 82 - 115 mg/dL 02/07/2025 6:20 AM EDT [facility] BUN 13.0 9.8 - 20.1 mg/dL 02/07/2025 6:20 AM EDT [facility] Creatinine 0.84 0.57 - 1.11 mg/dL 02/07/2025 6:20 AM EDT [facility] BUN/Creatinine 15 8 - 20 02/07/2025 6:20 AM EDT [facility] Calcium 10.0 8.4 - 10.2 mg/dL 02/07/2025 6:20 AM EDT [facility] Anion Gap 13(H) 4 - 12 02/07/2025 6:20 AM EDT [facility] eGFR (mL/min/1.73m2) 75 >=60 mL/min/1.7 3m2 02/07/2025 6:20 AM EDT [facility] Osmolality Calc 271.3 mOsm/kg 6:20 AM EDT [facility] Blood Venipuncture / Unknown 02/07/2025 5:18 AM EDT 02/07/2025 5:59 AM EDT us Von Sloan PA-C LAB BLOOD ORDERABLES Final Res ult [facility] [address] [phone] * CTA abdomen & pelvis (02/06/2025 7:19 [...] Transcribed by Gareth Meza. Laura Gibson DO [facility] CT ORDERABLES Final Result * CTA chest [...] DO IMG CT ORDERABLES Final Result * Type and Screen (02/06/2025 6:23 PM EDT) ABO/Rh O Positive 02/06/2025 6:05 PM EDT [facility] ([place] Antibody Screen Negative 02/06/2025 6:05 PM EDT [facility] ([place] HISTCHK HIST CHECK PERFORMED 02/06/2025 6:05 PM EDT [facility] ([place] Blood Venipuncture / Unknown 02/06/2025 6:23 PM EDT 02/06/2025 7:04 PM EDT Laura Gibson DO [facility] TEST ORDERABLES Final Result Performing Organization Address [facility]/ZIP Co de Phone Number [facility] ([place]) [address] [phone] * High Sensitivity Troponin I (02/06/2025 6:23 PM EDT) Troponin I High Sensitivity (pg/mL) 12.2 <=14 pg/mL 02/06/2025 7:29 PM EDT [facility] Blood Venipuncture / Unknown 02/06/2025 6:23 PM EDT 02/06/2025 7:04 PM EDT Narrative [facility] - 02/06/2025 7:29 PM EDT Applicable to [facility] only. Effective October 06 the lab will begin using a new chemistry analyzer. HsTroponin methodology, reference ranges and critical values have changed. Laura Gibson DO LAB BLOOD ORDERABLES Final Resu lt [facility] [address] [place] [address], [facility] [phone] * (ABNORMAL) aPTT (02/06/2025 6:23 PM EDT) [facility] aPTT 32.8(H) 22.0 - 32.0 seconds 02/06/2025 7:21 PM EDT [facility] Blood Venipuncture / Unknown 02/06/2025 6:23 PM EDT 02/06/2025 7:04 PM EDT [facility] LAB BLOOD ORDERABLES Final Resu lt [facility] [address] [phone] * Prothrombin time/INR (02/06/2025 6:23 PM EDT) [facility] Protime 10.4 9.0 - 12.0 seconds 02/06/2025 7:21 PM EDT [facility] INR 0.93 0.80 - 1.10 02/06/2025 7:21 PM EDT [facility] Comment: Recommended therapeutic ranges using International Normalized Ratio (INR) are: INR RANGE 2.0 - 3.0 Routine oral anticoagulant therapy 2.5 - 3.5 Oral anticoagulant therapy for patients with thromboembolic events on standard doses of Coumadin and those with mechanical heart valves. Blood Venipuncture / Unknown 02/06/2025 6:23 PM EDT 02/06/2025 7:04 PM EDT [facility] LAB BLOOD ORDERABLES Final Resu lt [facility] [address] [phone] * ECG 12 lead (02/06/2025 5:41 PM EDT) [facility] VENTRICULAR RATE EKG/MIN 67 BPM GE MUSE ATRIAL RATE (MCT) 69 BPM GE MUSE [place] Interval 152 ms GE MUSE QRS-INTERVAL (MSEC) 80 ms GE MUSE QT Interval 386 ms GE MUSE QTC Interval 407 ms GE MUSE P [place] 57 degrees GE MUSE R AXIS (MCT) -71 degrees GE MUSE T Wave [place] 40 degrees GE MUSE [place] Diagnosis Age and gender specific ECG analysis [...] Advance Directives For more information, please contact: [phone] * DNR - Limited Additional Intervention (Latest Code Status on File) Date Activated Date Inactivated Comments 02/06/2025 9:46 PM 02/09/2025 1:53 PM * Full Code Date Activated Date Inactivated Comments 10/06/2024 8:39 PM 10/09/2024 6:04 PM Care Teams Cryptologist Relationship Specialty Start Date End Date Jorje, Provider Not In The System, [place] [address] PCP - General 02/06/25
--- OUTSIDE RECORDS SUMMARY | 2025-02-21 16:12 | XMS_ITS | Referral Summary ---
Author Organization [email or web address] ([place], [place], [place], [place]) Address [address] [place] [address] Care Team Providers Care Director Of Rehabilitative Services Name Role Phone [facility], Provider Not In The System MD Primary Care Provider Unavailable Encounters Date Type Department Care Team Description 02/06/2025 5:35 PM EDT - 02/09/2025 12:35 PM EDT Hospital Encounter [facility] Cardiac Telemetry [address] [place] [address] Laura Gibson DO Turley, David, MD Hughes, Isaac, PA-C Poonawala, Stephanie, APRN Siddiqi, Ismaeel, DO Zohary, Yasser, MD Hematemesis with nausea (Primary Dx); Hematemesis; Nusrat-Prajapati tear; Hematemesis, unspecified whether nausea present; Anticoagulated on Eliquis; Malignant neoplasm of lung, unspecified laterality, unspecified part of lung (HCC); Tobacco abuse Discharge Disposition: Home or Self Care 02/06/2025 7:00 PM EDT - 02/06/2025 7:39 PM EDT Surgery [facility] Endoscopy [address] [place] [address] Marisa Garcia MD ESOPHAGOGASTRODUODENOSCOPY (EGD) 02/06/2025 Travel from Last 3 Months Allergies No [...] meals for 30 days. 60 tablet 02/10/20 25 025 Active amLODIPine (NORVASC) 5 MG tablet [...] hours for 10 days. 400 mL 02/10/20 25 025 aspirin 81 MG EC tablet Take 1 tablet (81 mg total) by mouth daily. 025 Discontinued Active Problems Problem Noted Date Diagnosed Date Hematemesis 02/06/2025 Nusrat-Prajapati tear 02/06/2025 Acute on chronic hypoxic respiratory failure Social [...] living situation today? [facility] to live 02/07/2025 Think [...] Do you speak a language other than [place] at [facility]? No 02/07/2025 Do you want help [...] 02/06/2025 5:45 PM EDT Plan of Treatment Not on file Medical Devices Implanted Type Area Wafer Fab Operator Device Identifier Shelf Expiration Date Model / Serial / Lot Duraclip Sm 16mm [id number] - [id number] Implanted:Qty: 3 on 02/06/2025 by Marisa Garcia MD at [facility] N/A: Esophagus CONMED 04/28/2027 [id number] / / [id number] Procedures Procedure Name Priority Date/Time Associated Diagnosis [...] AND HEMATOCRIT STAT 02/06/2025 8:22 PM EDT [facility] TRANSORAL CONTROL BLEEDING ANY METHOD 02/06/2025 [...] of3 resultswithin the time period is included. Pathologist [facility] Hemoglobin 8.2(L) 11.2 - 15.7 GM/DL 02/08/2025 3:55 PM EDT [facility] Hematocrit 25.3(L) 34.1 - 44.9 % 02/08/2025 3:55 PM EDT [facility] Blood Venipuncture / Unknown 02/08/2025 3:46 PM EDT 02/08/2025 3:50 PM EDT us Nara Goinssaúl IT ADMIN LAB BLOOD ORDERABLES Fi nal Result [facility] [address] [phone] * (ABNORMAL) CBC with automated diff (02/08/2025 4:41 AM EDT) Only the most recent of2 resultswithin the time period is included. [facility] WBC 7.7 4.0 - 10.0 K/ L 02/08/2025 6:12 AM EDT [facility] RBC 2.75(L) 3.93 - 5.22 M/ L 02/08/2025 6:12 AM EDT [facility] Hemoglobin 8.1(L) 11.2 - 15.7 GM/DL 02/08/2025 6:12 AM EDT [facility] Hematocrit 25.8(L) 34.1 - 44.9 % 02/08/2025 6:12 AM EDT [facility] MCV 94 79 - 95 fL 02/08/2025 6:12 AM EDT [facility] MCH 29.5 25.6 - 32.2 pg 02/08/2025 6:12 AM EDT [facility] MCHC 31.4(L) 32.2 - 35.5 GM/DL 02/08/2025 6:12 AM EDT [facility] RDW 14.2 11.7 - 14.4 % 02/08/2025 6:12 AM EDT [facility] Platelets 315 140 - 375 K/CU MM 02/08/2025 6:12 AM EDT [facility] MPV 9.0(L) 9.4 - 12.3 fL 02/08/2025 6:12 AM EDT [facility] NRBC Absolute <0.01 0 - 0.012 K/ul 02/08/2025 6:12 AM EDT [facility] Blood Venipuncture / Unknown 02/08/2025 4:41 AM EDT 02/08/2025 5:01 AM EDT Narrative [facility] - 02/08/2025 6:12 AM EDT When [...] Atypical Lymph flag noted us Nara Aguilar IT ADMIN LAB BLOOD ORDERABLES Fi nal Result Performing Organization Address City/State/[place] Co de Phone Number [facility] [address] [phone] * (ABNORMAL) Manual Differential (02/08/2025 4:41 AM EDT) Total Counted 100 02/08/2025 9:00 AM EDT [facility] % Neutros (manual) 70(H) 50 - 65 % 02/08/2025 9:00 AM EDT [facility] % Bands (manual) 2 % 02/08/2025 9:00 AM EDT [facility] % Lymphs (manual) 23(L) 24 - 44 % 02/08/2025 9:00 AM EDT [facility] % Monos (manual) 1(L) 4 - 5 % 02/08/2025 9:00 AM EDT [facility] % Eos (manual) 4(H) 0 - 3 % 02/08/2025 9:00 AM EDT [facility] RBC Morphology abnormal(A) Normal 9:00 AM EDT [facility] Platelet Estimate Adequate Adequate 02/08/2025 9:00 AM EDT [facility] Hypochromia 1+ 02/08/2025 9:00 AM EDT [facility] Ovalocytes 1+ 02/08/2025 9:00 AM EDT [facility] ANC# 5.54 K/ L 02/08/2025 9:00 AM EDT [facility] Blood Venipuncture / Unknown 02/08/2025 4:41 AM EDT 02/08/2025 5:01 AM EDT Nara Lauren [facility] LAB BLOOD ORDERABLES Fi nal Result Performing Organization Address City/[facility]/[place] Co de Phone Number [facility] [address] [phone] * Magnesium (02/08/2025 4:41 AM EDT) Only the most recent of2 resultswithin the time period is included. Magnesium 1.6 1.6 - 2.6 mg/dL 02/08/2025 5:54 AM EDT [facility] Blood Venipuncture / Unknown 02/08/2025 4:41 AM EDT 02/08/2025 5:05 AM EDT Narairis Aguilar IT ADMIN LAB BLOOD ORDERABLES Fi nal Result Performing Organization Address City/[facility]/[place] Co de Phone Number [facility] [address] [phone] * (ABNORMAL) Comprehensive metabolic panel (02/08/2025 4:41 AM EDT) Only the most recent of2 resultswithin the time period is included. Sodium 135(L) 136 - 145 meq/L 02/08/2025 5:59 AM EDT [facility] Potassium 3.7 3.4 - 5.1 meq/L 02/08/2025 5:59 AM EDT [facility] Chloride 98 98 - 112 meq/L 02/08/2025 5:59 AM EDT [facility] CO2 29 22 - 29 meq/L 02/08/2025 5:59 AM [facility] Calcium 9.1 8.4 - 10.2 mg/dL 02/08/2025 5:59 AM [facility] Glucose 85 82 - 115 mg/dL 02/08/2025 5:59 AM [facility] BUN 8.3(L) 9.8 - 20.1 mg/dL 02/08/2025 5:59 AM [facility] Creatinine 0.77 0.57 - 1.11 mg/dL 02/08/2025 5:59 AM [facility] BUN/Creatinine 11 8 - 20 02/08/2025 5:59 AM [facility] eGFR (mL/min/1.73m2) 84 >=60 mL/min/1. 73m2 02/08/2025 5:59 AM [facility] Albumin 2.3(L) 3.5 - 5.0 g/dL 02/08/2025 5:59 AM [facility] Alkaline Phosphatase 38(L) 40 - 150 U/L 02/08/2025 5:59 AM [facility] ALT <7 <=34 U/L 02/08/2025 5:59 AM [facility] Comment: ALT2 reagent used for testing does not contain P5P supplementation and therefore may miss ALT elevations in patients with B6 deficiency. This population may be as high as 10% in the [place], with risk factors including malabsorption, drug interactions, and alcoholic hepatitis. AST 11 11 - 34 U/L 02/08/2025 5:59 AM [facility] Comment: AST2 reagent used for testing does not contain P5P supplementation and therefore may miss AST elevations in patients with B6 deficiency. This population may be as high as 10% in the [place], with risk factors including malabsorption, drug interactions, and alcoholic hepatitis. Total Bilirubin 0.2 0.2 - 1.2 mg/dL 02/08/2025 5:59 AM [facility] Protein, Total 5.0(L) 6.4 - 8.3 g/dL 02/08/2025 5:59 AM [facility] Globulin 2.7 2.5 - 4.1 g/dL 02/08/2025 5:59 AM EDT [facility] Anion Gap 12 4 - 12 02/08/2025 5:59 AM EDT [facility] A/G Ratio 0.9 0.7 - 1.9 02/08/2025 5:59 AM EDT [facility] Osmolality Calc 267.8 mOsm/kg 5:59 AM EDT [facility] Blood Venipuncture / Unknown 02/08/2025 4:41 AM EDT 02/08/2025 5:05 AM EDT Nara Aguilar IT ADMIN LAB BLOOD ORDERABLES Fi nal Result [facility] [address] [phone] * (ABNORMAL) CBC - Hemogram (SJ-BKR) (02/07/2025 5:18 AM EDT) WBC 11.6(H) 4.0 - 10.0 K/ L 02/07/2025 6:04 AM EDT [facility] RBC 3.14(L) 3.93 - 5.22 M/ L 02/07/2025 6:04 AM EDT [facility] Hemoglobin 9.1(L) 11.2 - 15.7 GM/DL 02/07/2025 6:04 AM EDT [facility] Hematocrit 30.4(L) 34.1 - 44.9 % 02/07/2025 6:04 AM EDT [facility] MCV 97(H) 79 - 95 fL 02/07/2025 6:04 AM EDT [facility] MCH 29.0 25.6 - 32.2 pg 02/07/2025 6:04 AM EDT [facility] MCHC 29.9(L) 32.2 - 35.5 GM/DL 02/07/2025 6:04 AM EDT [facility] RDW 14.5(H) 11.7 - 14.4 % 02/07/2025 6:04 AM EDT [facility] Platelets 340 140 - 375 K/CU MM 02/07/2025 6:04 AM EDT [facility] MPV 9.1(L) 9.4 - 12.3 fL 02/07/2025 6:04 AM EDT [facility] Blood Venipuncture / Unknown 02/07/2025 5:18 AM EDT 02/07/2025 5:58 AM EDT us Von Sloan PA-C LAB BLOOD ORDERABLES Final Res ult [facility] [address] [phone] * (ABNORMAL) Basic Metabolic Panel (02/07/2025 5:18 AM EDT) Sodium 136 136 - 145 meq/L 02/07/2025 6:20 AM EDT [facility] Potassium 4.9 3.4 - 5.1 meq/L 02/07/2025 6:20 AM EDT [facility] CO2 29 22 - 29 meq/L 02/07/2025 6:20 AM EDT [facility] Chloride 99 98 - 112 meq/L 02/07/2025 6:20 AM EDT [facility] Glucose 85 82 - 115 mg/dL 02/07/2025 6:20 AM EDT [facility] BUN 13.0 9.8 - 20.1 mg/dL 02/07/2025 6:20 AM EDT [facility] Creatinine 0.84 0.57 - 1.11 mg/dL 02/07/2025 6:20 AM EDT [facility] BUN/Creatinine 15 8 - 20 02/07/2025 6:20 AM EDT [facility] Calcium 10.0 8.4 - 10.2 mg/dL 02/07/2025 6:20 AM EDT [facility] Anion Gap 13(H) 4 - 12 02/07/2025 6:20 AM EDT [facility] eGFR (mL/min/1.73m2) 75 >=60 mL/min/1.7 3m2 02/07/2025 6:20 AM EDT [facility] Osmolality Calc 271.3 mOsm/kg 6:20 AM EDT [facility] Blood Venipuncture / Unknown 02/07/2025 5:18 AM EDT 02/07/2025 5:59 AM EDT us Von Sloan PA-C LAB BLOOD ORDERABLES Final Res ult [facility] [address] [phone] * CTA abdomen & pelvis (02/06/2025 7:19 [...] Transcribed by Gareth Meza. Laura Gibson DO [facility] ORDERABLES Final Result * CTA chest [...] by Gareth Meza. us Laura Gibson DO [facility] ORDERABLES Final Result * Type and Screen (02/06/2025 6:23 PM EDT) ABO/Rh O Positive 02/06/2025 6:05 PM EDT [facility] BLOOD [facility] ([place]) Antibody Screen Negative 02/06/2025 6:05 PM EDT [facility] ([place]) HISTCHK HIST CHECK PERFORMED 02/06/2025 6:05 PM EDT [facility] ([place]) Blood Venipuncture / Unknown 02/06/2025 6:23 PM EDT 02/06/2025 7:04 PM EDT us Laura Gibson DO [facility] BLOOD BANK TEST ORDERABLES Final Result [facility] ([place]) [address] [place] [address], [facility] [phone] * High Sensitivity Troponin I (02/06/2025 6:23 PM EDT) Troponin I High Sensitivity (pg/mL) 12.2 <=14 pg/mL 02/06/2025 7:29 PM EDT [facility] Blood Venipuncture / Unknown 02/06/2025 6:23 PM EDT 02/06/2025 7:04 PM EDT Narrative [facility] - 02/06/2025 7:29 PM EDT Applicable to [facility] only. Effective October 06 the lab will begin using a new chemistry analyzer. HsTroponin methodology, reference ranges and critical values have changed. [facility] BLOOD ORDERABLES Final Resu lt Performing Organization Address [facility]/ZIP Co de Phone Number [facility] [address] [phone] * (ABNORMAL) aPTT (02/06/2025 6:23 PM EDT) [facility] aPTT 32.8(H) 22.0 - 32.0 seconds 02/06/2025 7:21 PM EDT [facility] Blood Venipuncture / Unknown 02/06/2025 6:23 PM EDT 02/06/2025 7:04 PM EDT [facility] LAB BLOOD ORDERABLES Final Resu lt [facility] [address] [phone] * Prothrombin time/INR (02/06/2025 6:23 PM EDT) Pathologist [facility] Protime 10.4 9.0 - 12.0 seconds 02/06/2025 7:21 PM EDT [facility] INR 0.93 0.80 - 1.10 02/06/2025 7:21 PM EDT [facility] Comment: Recommended therapeutic ranges using International Normalized Ratio (INR) are: INR RANGE 2.0 - 3.0 Routine oral anticoagulant therapy 2.5 - 3.5 Oral anticoagulant therapy for patients with thromboembolic events on standard doses of Coumadin and those with mechanical heart valves. Blood Venipuncture / Unknown 02/06/2025 6:23 PM EDT 02/06/2025 7:04 PM EDT Laura Gibson DO LAB BLOOD ORDERABLES Final Resu lt Performing Organization Address City/[facility]/ZIP Co de Phone Number [facility] [address] [place], [place] [address] [phone] * ECG 12 lead (02/06/2025 5:41 PM EDT) VENTRICULAR RATE EKG/MIN 67 BPM GE MUSE ATRIAL RATE (MCT) 69 BPM GE MUSE VA Interval 152 ms GE MUSE QRS-INTERVAL (MSEC) 80 ms GE MUSE QT Interval 386 ms GE MUSE QTC Interval 407 ms GE MUSE P Orange 57 degrees GE MUSE R AXIS (MCT) -71 degrees GE MUSE T Wave Orange 40 degrees GE MUSE [place] Diagnosis Age and gender specific ECG analysis Normal sinus rhythm Left axis deviation Abnormal ECG When compared with ECG of 06-OCT-2024 19:45, Significant changes have occurred Confirmed by Edvin ESPINOZA, [facility] (2019) on 02/08/2025 5:26:45 PM GE MUSE 02/06/2025 5:41 PM EDT 02/08/2025 5:26 PM EDT Laura Gibson DO ECG ORDERABLES Final Result Performing Organization Address [facility]/[place] Co de Phone Number GE MUSE * EKG-SCANNED (02/06/2025) Narrative 02/06/2025 Ordered by an unspecified provider. Default Scanning Provider SCAN ORDERS Final Result from Last 3 Months Insurance [employer] MCR ADV Member Subscriber Plan / Payer (Ef fective 2024-Present) Name:Iqra Balbuena Relation to Subscriber:Self Name:Irqa Balbuena Payer ID:[id number] Type:Not on file Address: [facility] [id number] [place] [id number] Advance Directives For more information, please contact: [phone] * DNR - Limited Additional Intervention (Latest Code Status on File) Date Activated Date Inactivated Comments 02/06/2025 9:46 PM 02/09/2025 1:53 PM * Full Code Date Activated Date Inactivated Comments 10/06/2024 8:39 PM 10/09/2024 6:04 PM Care Teams Director Of Rehabilitative Services Relationship Specialty Start Date End Date Jorje, Provider Not In The System, [place] [address] PCP - General 02/06/25
--- NOTE | 2025-02-21 16:16 | ECG_ITS ---
APPROVED REPORT Exam: Resting ECG HR:80 bpm ECG Measurements Heart Rate 80 AXES OR 142 P 84 QRSd 85 QRS -62 QT 344 T 53 QTc 379 Conclusion SINUS RHYTHM WITH OCCASIONAL SUPRAVENTRICULAR PREMATURE COMPLEXES LEFT AXIS DEVIATION [QRS AXIS < -30] PATTERN CONSISTENT WITH PULMONARY DISEASE SEPTAL MYOCARDIAL INFARCTION , PROBABLY OLD [40+ ms Q WAVE IN V1/V2] ABNORMAL ECG UNCONFIRMED REPORT Electronically signed by : JANICE BURROUGHS, 02/22/2025 23:45:55
--- NOTE | 2025-02-21 16:16 | XR_ITS ---
PROCEDURE INFORMATION: Exam: XR Chest Exam date and time: 02/21/2025 4:25 PM Age: 69 years old Clinical indication: Shortness of breath; Additional info: SOA TECHNIQUE: Imaging protocol: Radiologic exam of the chest. Views: 1 view. COMPARISON: CR XR CHEST PORTABLE 01/28/2025 3:38 PM FINDINGS: Lungs: Mild bibasilar fibro atelectatic changes. Lung newman otherwise clear. Pleural spaces: Unremarkable. No pleural effusion. No pneumothorax. Heart/Mediastinum: Unremarkable. No cardiomegaly. Bones/joints: Unremarkable. IMPRESSION: Stable chest x-ray with no acute disease.
[2025-02-21 16:17] LABS: Lactate Venous 1.7 mmol/L (0.4-2.0); VBG HCO3 35.1 mmol/L (23-30); VBG PH 7.41 mmol/L (7.31-7.41); VBG PO2 66.7 mmol/L (28-40)
[2025-02-21 16:20] LABS: VBG PCO2 56.4 mmol/L (35-51)
[2025-02-21 16:23] LABS: Hematocrit 30.5 % (37.0-47.0); Hemoglobin 9.5 g/dL (12.2-16.2); Immature Granulocytes % 0.2 %; Mean Corpuscular HGB Conc 31.1 g/dL (31.8-35.4); Mean Corpuscular Hemoglobin 29.1 pg (27.0-31.2); Mean Corpuscular Volume 93.6 fl (81-99); Nucleated Red Blood Cells % 0 %; Platelet Count 339 K/mm3 (142-424); Red Blood Count 3.26 M/mm3 (4.20-5.40); Red Cell Distribution Width-SD 49.8 fL; White Blood Count 8.6 K/mm3 (4.8-10.8)
[2025-02-21 16:29] LABS: Albumin Level 3.8 g/dl (3.5-5.0); Chloride 91 mmol/L (98-107); Sodium 133 mmol/L (136-145)
[2025-02-21 16:30] LABS: Potassium 4.0 mmoL/L (3.5-5.1)
[2025-02-21] MEDS: IPRATROPIUM/ALBUTEROL 3 ML NEB IH (16:31)
[2025-02-21 16:32] LABS: Alanine Aminotransferase 10 U/L (12-78); Albumin/Globulin Ratio 1.4 (1.1-1.8); Alkaline Phosphatase 63 U/L (38-126); Anion Gap 9.0 mEq/L (5-15); Aspartate Amino Transferase 23 U/L (14-36); Bilirubin,Total 0.2 mg/dl (0.2-1.3); Blood Urea Nitrogen 14 mg/dl (7-17); Carbon Dioxide 37 mmol/L (22.0-30.0); Creatinine Clearance Estimated 61 mL/min (50-200); Creatinine,Serum 0.80 mg/dl (0.52-1.04); Estimated Glomerular Filt Rate 71 ml/min (>60); GFR (African American) 86 ML/MIN (>60); Globulin 2.7 g/dL (1.3-3.2); Total Protein,Serum 6.5 g/dl (6.3-8.2)
[2025-02-21 16:33] LABS: Calcium 9.6 mg/dl (8.4-10.2); Glucose 107 mg/dl (74-100)
[2025-02-21 16:48] LABS: Troponin I < 0.01 ng/ml (0.00-0.034)
[2025-02-21 18:00] VITALS: BP 162/78; PULSE 84; RESP 20; O2SAT 100
[2025-02-21 18:08] LABS: NT Pro Brain Natriuretic Pep. 545 pg/mL (0-125)
[2025-02-21] MEDS: IPRATROPIUM/ALBUTEROL 3 ML NEB 6 ML IH (18:13)
[2025-02-21] MEDS: OXYCODONE 5MG IMMEDIATE RELEASE TABLET 5 MG PO (18:13)
[2025-02-21] MEDS: MAGNESIUM SULFATE IN WATER 2 GM/50 ML PIGGYBACK IV (18:14)
[2025-02-21] MEDS: METHYLPREDNISOLONE SOD SUCC 125MG VIAL 125 MG IV (18:14)
[2025-02-21 19:00] VITALS: BP 159/75; PULSE 78; RESP 21; O2SAT 94
[2025-02-21 19:30] VITALS: BP 150/67; PULSE 83; RESP 17; O2SAT 93
[2025-02-21 19:34] LABS: Troponin I < 0.01 ng/ml (0.00-0.034)
--- NOTE | 2025-02-21 19:58 | ED_ITS ---
<Statement entered by Tammy Neal DO - 02/21/25 20:11> I was consulted by the ASHOK, and we discussed the complexity of problems being addressed. I approve the treatment and management plan for this patient's care in the emergency department, thus performing a substantial portion of the medical decision making. Tammy Neal DO Discharge Plan Disposition Patient Disposition: Home, Self-Care Condition: Good Prescriptions Prescriptions: New prednisone 20 mg tablet 60 mg PO DAILY 5 Days Qty: 15 0RF albuterol sulfate 2.5 mg /3 mL (0.083 %) solution for nebulization 2.5 mg inhalation Q6H PRN (Reason: bronchospasm) Qty: 75 0RF No Action montelukast 10 mg tablet 10 mg PO PM gabapentin 800 mg tablet 800 mg PO TID albuterol sulfate 90 mcg/actuation HFA aerosol inhaler 2 inh INHALATION Q6HP PRN (Reason: Shortness Of Breath) potassium chloride 20 mEq tablet,ER particles/crystals 20 meq PO BID metoprolol succinate 100 mg Tablet Extended Release 24 Hr 100 mg PO HS 30 Days Qty: 30 0RF digoxin 125 mcg (0.125 mg) tablet 125 mcg PO DAILY Qty: 30 0RF tiotropium bromide [Spiriva with HandiHaler] 18 mcg Capsule, W/Inhalation Device 1 cap inhalation DAILY Qty: 30 0RF losartan 100 mg tablet 100 mg PO DAILY Patient Comments: TAKE 1 TABLET BY MOUTH ONCE A DAY fluticasone propion-salmeterol [Advair Diskus] 500-50 mcg/dose blister with device 1 inh inhalation BID Eliquis 5 mg Tablet 5 mg PO BID amlodipine 5 mg Tablet 5 mg PO DAILY 30 Days Qty: 30 0RF aspirin 81 mg Tablet,Delayed Release (Dr/Ec) 81 mg PO DAILY 30 Days Qty: 30 0RF doxycycline hyclate 100 mg Tablet 100 mg PO BID 5 Days Qty: 10 0RF alprazolam 1 mg tablet 1 mg PO BID PRN (Reason: anxiety) 30 Days Qty: 0 0RF celecoxib 50 mg capsule 50 mg PO DAILY PRN (Reason: pain) 30 Days Qty: 0 0RF Referrals Follow up/Referrals: Olga (ED),SEAN Brown [Primary Care Provider, Emergency Medicine] - See instructions Activity Restrictions/Add. Instructions Additional Instructions/Restrictions: You were seen for chest pain and shortness of breath with COPD. I will start a short course of steroids. See your PCP next week. Return to the ER for any worsening. Clinical Impressions Clinical Impression: COPD (chronic obstructive pulmonary disease) Instructions Patient Instructions: Chronic Obstructive Pulmonary Disease Print Language Print Language: Irish Discharge ED Provider: Tammy Neal <AKHIL Doherty - Last Filed: 02/21/25 20:04> General Chief Complaint: Shortness of Breath/Dyspnea Stated Complaint: shortness of breath Time Seen by Provider: 02/21/25 16:04 Mode of Arrival: Ambulatory Source of Information: Patient Description of Symptoms (Recalled from ER Triage Doc. by RN): patient present to the emergency department from home for shortness of breath. patient states she has lung cancer and wears 2L at home. mode was not wearing her oxygen when she arrived at the emergency department. History of Present Illness HPI narrative: Patient presents complaining of left-sided chest pain, shortness of breath, cough. She reports edema in her bilateral lower extremities. She reports she has been taking her Lasix. Patient reports that she does have history of COPD, A-fib. MD complaint: chest pain Onset (ago): unknown Duration: constant Pain location: left chest Pain radiation: none Context: other (COPD) Associated symptoms: cough and leg swelling Treatments prior to or on arrival for Cardiac Chest Pain: none Related Data Home Medications ?Medication ?Instructions ?Recorded ?Confirmed albuterol sulfate 90 mcg/actuation 2 inh inhalation Q6 HP PRN 04/15/24 01/28/25 aerosol inhaler Shortness Of Breath gabapentin 800 mg tablet 800 mg PO TID 04/15/2401/28 Held on 01/30/25. Instructions: Resume on 02/13/25. You did not need this medication during hospitalization. Please consider discontinuing as it can cause weakness, unless you have neuropathy. If you do have neuropathy, start at 400 mg daily and follow-up with your PCP. montelukast 10 mg tablet 10 mg PO PM 04/15/24 5 potassium chloride 20 mEq 20 meq PO BID 04/15/2401/28 tablet,extended release(part/cryst) apixaban 5 mg tablet (Eliquis) 5 mg PO BID 01/28/25 fluticasone 500 mcg-salmeterol 50 1 inh inhalation BID 01/28/25 01/28/25 mcg/dose blistr powdr for inhalation (Advair Diskus) losartan 100 mg tablet 100 mg PO DAILY 01/28/25 Previous Rx's ?Medication ?Instructions ?Recorded digoxin 125 mcg (0.125 mg) tablet 125 mcg PO DAILY #30 tabs 12/01/24 metoprolol succinate 100 mg 100 mg PO HS 30 days #30 t abs 12/01/24 tablet,extended release 24 hr tiotropium bromide 18 mcg capsule 1 cap inhalation AURELIA LY #30 blisters 12/18/24 with inhalation device (Spiriva with HandiHaler) alprazolam 1 mg tablet 1 mg PO BID PRN anxiety 30 d ays #0 01/30/25 tabs amlodipine 5 mg tablet 5 mg PO DAILY 30 days #30 ta bs 01/30/25 aspirin 81 mg tablet,delayed 81 mg PO DAILY 30 days #3 0 tabs 01/30/25 release celecoxib 50 mg capsule 50 mg PO DAILY PRN pain 30 d ays #0 01/30/25 caps doxycycline hyclate 100 mg tablet 100 mg PO BID 5 days #10 tabs 01/30/25 albuterol sulfate 2.5 mg/3 mL 2.5 mg (3 mL) inhalation Q6H PRN 02/21/25 (0.083 %) solution for nebulization bronchospasm #75 m L prednisone 20 mg tablet 60 mg (3 x 20 mg) PO DAILY 5 days 02/21/25 #15 tabs Allergies Allergy/AdvReac Type Severity Reaction Status Date / Time No Known Allergies Allergy Verified 11/17/24 15:18 [facility] <AKHIL Doherty - Last Filed: 02/21/25 20:04> [facility] Disclaimer: The information contained in this section may have been updated after the patient was seen, as this information can be updated by other users. Medical History (Updated 02/21/25 @ 19:43 by AKHIL Doherty) HTN (hypertension) HLD (hyperlipidemia) Pneumonia Fecal occult blood test positive Sepsis without septic shock Lymphedema Physical deconditioning General weakness Lung mass Hypomagnesemia Acute hypokalemia Chronic hyponatremia Generalized weakness COPD mixed type Lung nodule Hypokalemia Elevated troponin Nocturnal hypoxemia Pulmonary emphysema Incidental pulmonary nodule, greater than or equal to 8mm Smoking greater than 30 pack years Dyspnea on exertion Tobacco abuse disorder Tobacco abuse counseling Cervical cancer Surgical History History of dilation and curettage History of back surgery Family History Diabetes Social History (Updated 01/27/25 @ 16:54 by Verenice Carroll RN) Smoking Status: Current every day smoker tobacco type: cigarettes packs per day: 2 second hand exposure: Yes alcohol intake: never substance use type: denies use current occupational status: unemployed Travel in the last 8 weeks?: None household members: spouse housing: house current occupational exposures/hazards: No Have you lived/traveled outside [place] in past 30 days?: No Contact w/someone who lives/traveled outside US past 30 days?: No Exposure to someone with infectious disease in past 14 days?: No Do you have a fever (greater than 100.4 F or 38 C)?: No Have you tested positive for COVID-19?: No Exposed to someone with COVID-19 in past 14 days?: No Do you have a sore throat?: No Do you have a cough?: No Do you have any weakness?: No Do you have any diarrhea?: No Are you experiencing any unusual bleeding?: No Do you have any muscle aches/pain?: No Do you have any abdominal pain?: No Are you experiencing loss of taste or smell?: No Other Medical History Have you received the Flu Vaccine for this season: No Have you received the Pneumonia Vaccine: No <AKHIL Doherty - Last Filed: 02/21/25 20:04> ROS Obtained: Yes Systems reviewed as appropriate & no additional complaints except as documented Physical Exam <AKHIL Doherty - Last Filed: 02/21/25 20:04> General General appearance: alert and in no apparent distress Head Head exam: atraumatic and normocephalic Eye Eye exam: Present normal appearance and EOMI Chest Chest inspection: Present symmetric chest wall rise Respiratory Respiratory exam: Present wheezes and other (Diminished breath sounds bilateral); Absent normal lung sounds bilaterally or stridor Cardiovascular Cardiovascular exam: Present regular rate and normal rhythm; Absent systolic murmur Expanded Cardiovascular Exam Peripheral pulses: 2+: dorsalis pedis (R) and dorsalis pedis (L) Extremities Exam Extremities exam: Present edema (Pedal edema bilaterally) Neurological Exam Neurological exam: Present alert and oriented X3 Psychiatric Psychiatric exam: Present normal affect and normal mood Skin Skin exam: Present warm, dry and intact HEART Score <AKHIL Doherty - Last Filed: 02/21/25 20:04> HEART Score HEART Score assessment performed?: Yes History (anamnesis): Slightly suspicious ECG: Normal Age: >65 years Risk factors: 1-2 risk factors Troponin: </= normal limit HEART Score: 3 <Tammy Neal DO - Last Filed: 02/21/25 20:11> HEART Score HEART Score: 3 Critical Care <AKHIL Doherty - Last Filed: 02/21/25 20:04> Critical Care Time Critical Care Time: No Medical Decision Making <AKHIL Doherty - Last Filed: 02/21/25 20:04> Azael Inquiry Pt receiving controlled substance: No Vital Signs Vital Signs: 02/21/25 16:00 02/21/25 16:06 02/21/25 18:00 Temperature 98.5 F Temperature Source Oral Pulse Rate 84 Pulse Rate [Right Radial] 78 Respiratory Rate 25 H 20 Blood Pressure 162/78 H Blood Pressure [Right Arm] 150/70 H Blood Pressure Mean [Right Arm] 96 Blood Pressure Source [Right Arm] Automatic Cuff Blood Pressure Position [Right Arm] Sitting 02 Sat by Pulse Oximetry 98 92 L 100 Oxygen Delivery Method Nasal Cannula Nasal Cannula Oxygen Flow Rate (LPM) 2 2 02/21/25 19:00 02/21/25 19:30 Temperature Temperature Source Pulse Rate 78 83 Pulse Rate [Right Radial] Respiratory Rate 21 17 Blood Pressure 159/75 H 150/67 H Blood Pressure [Right Arm] Blood Pressure Mean [Right Arm] Blood Pressure Source [Right Arm] Blood Pressure Position [Right Arm] 02 Sat by Pulse Oximetry 94 L 93 L Oxygen Delivery Method Oxygen Flow Rate (LPM) Lab Data Labs: Lab Results 02/21/25 16:00: VBG pH 7.41, VBG pCO2 56.4 H, VBG pO2 66.7 H, VBG HCO3 35.1 H, V BG Total CO2 36.8 H, VBG O2 Saturation 93.1 H, VBG Base Excess 10.5 H, VBG Lactic Acid 1.7 02/21/25 16:06: WBC 8.6, RBC 3.26 L, Hgb 9.5 L, Hct 30.5 L, MCV 93.6, MCH 29.1, MCHC 31.1 L, RDW 14.6, Plt Count 339, MPV 8.8, Neut % (Auto) 58.5, Lymph % (Auto) 32.0, Burt % (Auto) 6.2, Eos % (Auto) 2.4, Baso % (Auto) 0.7, Neut # (Auto) 5.0, Lymph # (Auto) 2.8, Burt # (Auto) 0.5, Eos # (Auto) 0.2, Baso # (Auto) 0.1, Sodium 133 L, Potassium 4.0, Chloride 91 L, Carbon Dioxide 37 H, Anion Gap 9.0, BUN 14, Creatinine 0.80, Estimated Creat Clear 61, Estimated GFR 71, Est GFR ( Amer) 86, Glucose 107 H, Calcium 9.6, Total Bilirubin 0.2, AST 23, ALT 10 L, Alkaline Phosphatase 63, Troponin I < 0.01, NT-Pro-B Natriuret Pep 545 H, Total Protein 6.5, Albumin 3.8, Globulin 2.7, Albumin/Globulin Ratio 1.4 02/21/25 19:03: Troponin I < 0.01 02/21/25 16:06 02/21/25 16:06 Response Orders (Tests/Meds): ED MEDICATIONS Discontinued Medications Generic Name Dose Route Start Last Admin Trade Name Freq PRN Reason Stop Dose Admin Albuterol/Ipratropium 3 ml 02/21/25 16:15 02/21/25 16:31 Ipratropium/Albuterol 3 Ml On license of [facility] 02/21/25 16:16 3 ml ONCE ONE Administration Albuterol/Ipratropium 6 ml 02/21/25 18:01 02/21/25 18:13 Ipratropium/Albuterol 3 Ml On license of [facility] 02/21/25 18:02 6 ml ONCE ONE Administration Aspirin 324 mg 02/21/25 16:15 02/21/25 16:35 Aspirin 81mg Chewable Tablet PO 02/21/25 16:16 Not Given ONCE ONE Magnesium Sulfate 2 gm in 50 mls @ 50 mls/hr 02/21/25 18:01 02/21/25 18:14 Magnesium Sulfate 2gm/50ml Premix IV 02/21/25 19:00 50 mls/hr ONCE ONE Administration Methylprednisolone Sodium Succinate 125 mg 02/21/25 18:01 02/21/25 18:14 Methylprednisolone Sod Succ 125mg Vial IV 02/21/25 18:02 125 mg ONCE ONE Administration Oxycodone HCl 5 mg 02/21/25 17:56 02/21/25 18:13 Oxycodone 5mg Immediate Release Tablet PO 02/21/25 17:57 5 mg ONCE ONE Administration ORDERS Category Date Time Status XR chest portable Stat Exams 02/21/25 16:16 Completed BNP [NT Pro Brain Natriuretic Pep.] Stat Lab 02/21/25 16:06 Completed Complete Blood Count Auto Diff Stat Lab 02/21/25 16:06 Completed Comprehensive Metabolic Panel Stat Lab 02/21/25 16:06 Completed Troponin I Q3H Lab 02/21/25 19:03 Completed Troponin I Q3H Lab 02/21/25 22:30 Ordered Troponin I Stat Lab 02/21/25 16:06 Completed VBG [Venous Blood Gas] Stat RT 02/21/25 16:00 Completed Venous Blood Gas Stat RT 02/21/25 16:24 Ordered MDM Narrative Medical Decision Narrative: In summary patient is a 69-year-old female who presents the emergency department for evaluation of chest pain and shortness of breath. Patient is hemodynamically stable upon arrival, afebrile. Wheezing and diminished breath sounds on exam, pedal edema bilaterally. Differential diagnosis includes COPD exacerbation, ACS, pneumonia. Initial workup will be conducted with CBC, CMP, EKG troponin. Initial inventions include albuterol, magnesium, Solu-Medrol. Initial workup reviewed by me unremarkable. Upon repeat evaluation patient had improvement of symptoms. Given this patient is appropriate for discharge home at this time with a refill for her albuterol as well as prednisone burst. <Tammy Neal, DO - Last Filed: 02/21/25 20:11> Vital Signs Vital Signs: 02/21/25 16:00 02/21/25 16:06 02/21/25 18:00 Temperature 98.5 F Temperature Source Oral Pulse Rate 84 Pulse Rate [Right Radial] 78 Respiratory Rate 25 H 20 Blood Pressure 162/78 H Blood Pressure [Right Arm] 150/70 H Blood Pressure Mean [Right Arm] 96 Blood Pressure Source [Right Arm] Automatic Cuff Blood Pressure Position [Right Arm] Sitting 02 Sat by Pulse Oximetry 98 92 L 100 Oxygen Delivery Method Nasal Cannula Nasal Cannula Oxygen Flow Rate (LPM) 2 2 02/21/25 19:00 02/21/25 19:30 Temperature Temperature Source Pulse Rate 78 83 Pulse Rate [Right Radial] Respiratory Rate 21 17 Blood Pressure 159/75 H 150/67 H Blood Pressure [Right Arm] Blood Pressure Mean [Right Arm] Blood Pressure Source [Right Arm] Blood Pressure Position [Right Arm] 02 Sat by Pulse Oximetry 94 L 93 L Oxygen Delivery Method Oxygen Flow Rate (LPM) Lab Data Lab results reviewed: Yes I reviewed the patient's lab results. Labs: Lab Results 02/21/25 16:00: VBG pH 7.41, VBG pCO2 56.4 H, VBG pO2 66.7 H, VBG HCO3 35.1 H, V BG Total CO2 36.8 H, VBG O2 Saturation 93.1 H, VBG Base Excess 10.5 H, VBG Lactic Acid 1.7 02/21/25 16:06: WBC 8.6, RBC 3.26 L, Hgb 9.5 L, Hct 30.5 L, MCV 93.6, MCH 29.1, MCHC 31.1 L, RDW 14.6, Plt Count 339, MPV 8.8, Neut % (Auto) 58.5, Lymph % (Auto) 32.0, Burt % (Auto) 6.2, Eos % (Auto) 2.4, Baso % (Auto) 0.7, Neut # (Auto) 5.0, Lymph # (Auto) 2.8, Burt # (Auto) 0.5, Eos # (Auto) 0.2, Baso # (Auto) 0.1, Sodium 133 L, Potassium 4.0, Chloride 91 L, Carbon Dioxide 37 H, Anion Gap 9.0, BUN 14, Creatinine 0.80, Estimated Creat Clear 61, Estimated GFR 71, Est GFR ( Amer) 86, Glucose 107 H, Calcium 9.6, Total Bilirubin 0.2, AST 23, ALT 10 L, Alkaline Phosphatase 63, Troponin I < 0.01, NT-Pro-B Natriuret Pep 545 H, Total Protein 6.5, Albumin 3.8, Globulin 2.7, Albumin/Globulin Ratio 1.4 02/21/25 19:03: Troponin I < 0.01 Response Orders (Tests/Meds): ED MEDICATIONS Discontinued Medications Generic Name Dose Route Start Last Admin Trade Name Anatoly PRN Reason Stop Dose Admin Albuterol/Ipratropium 3 ml 02/21/25 16:15 02/21/25 16:31 Ipratropium/Albuterol 3 Ml Neb 02/21/25 16:16 3 ml ONCE ONE Administration Albuterol/Ipratropium 6 ml 02/21/25 18:01 02/21/25 18:13 Ipratropium/Albuterol 3 Ml Neb 02/21/25 18:02 6 ml ONCE ONE Administration Aspirin 324 mg 02/21/25 16:15 02/21/25 16:35 Aspirin 81mg Chewable Tablet PO 02/21/25 16:16 Not Given ONCE ONE Magnesium Sulfate 2 gm in 50 mls @ 50 mls/hr 02/21/25 18:01 02/21/25 18:14 Magnesium Sulfate 2gm/50ml Premix IV 02/21/25 19:00 50 mls/hr ONCE ONE Administration Methylprednisolone Sodium Succinate 125 mg 02/21/25 18:01 02/21/25 18:14 Methylprednisolone Sod Succ 125mg Vial IV 02/21/25 18:02 125 mg ONCE ONE Administration Oxycodone HCl 5 mg 02/21/25 17:56 02/21/25 18:13 Oxycodone 5mg Immediate Release Tablet PO 02/21/25 17:57 5 mg ONCE ONE Administration ORDERS Category Date Time Status XR chest portable Stat Exams 02/21/25 16:16 Completed BNP [NT Pro Brain Natriuretic Pep.] Stat Lab 02/21/25 16:06 Completed Complete Blood Count Auto Diff Stat Lab 02/21/25 16:06 Completed Comprehensive Metabolic Panel Stat Lab 02/21/25 16:06 Completed Troponin I Q3H Lab 02/21/25 19:03 Completed Troponin I Q3H Lab 02/21/25 22:30 Ordered Troponin I Stat Lab 02/21/25 16:06 Completed VBG [Venous Blood Gas] Stat RT 02/21/25 16:00 Completed Venous Blood Gas Stat RT 02/21/25 16:24 Ordered MDM Narrative Medical Decision Narrative: In summary patient is a 69-year-old female who presents the emergency department for evaluation of chest pain and shortness of breath. Patient is hemodynamically stable upon arrival, afebrile. Wheezing and diminished breath sounds on exam, pedal edema bilaterally. Differential diagnosis includes COPD exacerbation, ACS, pneumonia, pulmonary embolism. Initial workup will be conducted with CBC, CMP, EKG troponin. Initial inventions include albuterol, magnesium, Solu-Medrol. Patient's labs were reviewed and interpreted by myself, CBC showed no leukocytosis, hemoglobin was stable. CMP was unremarkable. VBG showed no acidosis. VBG with mildly elevated CO2 of 56. BNP mildly elevated at 545. Initial troponin less than 0.01. Second troponin less than 0.01. Patient's chest x-ray was reviewed and interpreted by myself and showed no acute for consolidation, pneumothorax, pleural effusion or other acute cardiopulmonary process. EKG was reviewed and interpreted by myself and showed normal sinus rhythm at [address] or T wave changes concerning for ischemia Patient was seen here a few weeks prior CT PE was negative for pulmonary embolism. Patient is not tachycardic, patient is not more hypoxic than her baseline therefore pulmonary as embolism seems less likely at this time given that patient has wheezing on exam, COPD exacerbation more likely at this time. Patient was given magnesium, Solu-Medrol and DuoNebs in the emergency department with improvement of her symptoms. Patient just completed a course of Rocephin azithromycin and doxycycline when recently admitted to the hospital. At this time, patient was sent with a steroid taper and advised to continue taking her nebulizers at home.
[2025-02-21 20:46] VITALS: BP 130/76; PULSE 87; RESP 12; TEMP 36.4; O2SAT 99
== END 2025-02-21 20:48 | disposition home or self-care (01) ==
PROVIDERS: Physician Assistant; Emergency Provider Student in an Organized Health Care Education/Training Program; PCP Nurse Practitioner
DX: R07.89 Other chest pain (principal); J44.1 Chronic obstructive pulmonary disease with (acute) exacerbation; E78.5 Hyperlipidemia, unspecified; I10 Essential (primary) hypertension; R60.0 Localized edema; F17.210 Nicotine dependence, cigarettes, uncomplicated
CPT/HCPCS: 71045; 80053; 82803; 83880; 84484; 85025; 93005; 96360; 96375; 99285; J2919; J3475

== ENCOUNTER 2025-02-28 14:43 | Observation (INO) | payer MEDICARE, SELFPAY ==
--- OUTSIDE RECORDS SUMMARY | 2025-02-06 17:35 | XMS_ITS | Encounter Summary ---
Author Organization [employer] ([place], [place], [place], [place]) Address [address] [place] [address] Care Team Providers Care Legal Contracts Specialist Name Role Phone [facility], Provider Not In The System Primary [...] unspecified whether nausea present Anticoagulated on Eliquis [facility] [place] [address] Phone: tel: fax: [facility] [place] [address] Phone: tel: fax: Referral ID Status Reason Start Date Expiration Date Visits Re quested Visits Authorized [id number] 1 1 Encounter Details Date Type Department Care Team (Late st Contact Info) Description 02/06/2025 5:35 PM EDT - 02/09/2025 12:35 PM EDT Hospital Encounter [facility] [place] [address] Laura Gibsno DO [address] [place] [address] Ricardo Gordon MD [address] [place] [address], [place] [id number] Von Sloan PA-C [address] [place] [address] Lauren NaraSEAN childs [address] [phone] Zhou Nassar DO [address] [phone] Sania Salcido MD [address] [phone] Hematemesis with nausea (Primary Dx); Hematemesis; Nusrat-Prajapati [...] Do you speak a language other than Mauritian at [facility]? No 02/07/2025 Do you want help [...] In The System MD Jorje Hospital Course Ergonomics Consultant(s): GI, pulmonology Discharge Diagnosis: Nusrat-Prajapati tear Hematemesis [...] Your Medications These medications were sent to [facility] at [address] 14[address] [facility] [address] [address] pantoprazole 40 MG tablet sucralfate 100 mg/mL [...] follow-up Provider Not In The System MD Jorej Relationship: PCP - General [place] [address] Next Steps: Schedule an appointment as soon as possible for a visit in 1 week(s) Instructions: Unable to reach the office of pcp. Please call to schedule. repeat CBC Marisa Garcia MD Specialty: Gastroenterology 1401 [facility] [address] [place] [address] Next Steps: Follow up in 2 month(s) Instructions: Repeat EGD office will be reaching out with appontment. Time Spent on Discharge: I spent 35 minutes in [id number] time with the patient and nursing staffconcerning [...] be sent through Care Everywhere. 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 I have independently interpreted chest images. I have actively directed the medical care, formulated diagnosis, and the plan of care. Patient requires a high complexity of decision making for assessment.Voice knowledge engineer technology ([employer]) is used for dictation of this note and sound-alike words might be erroneously placed despite reviewing the note for accuracy. Errors in dictation may reflect use of voice recognition software and not all errors in knowledge engineer may have been detected prior to signing. [...] Procedure Component Value Units Date/Time CTA chest [[id number]] Collected: 02/06/252134 Order Status: Completed Updated: 02/06/252155 [...] by Gareth Meza. CTA abdomen & pelvis [[id number]] Collected: 02/06/252134 Order Status: Completed Updated: 02/06/252155 [...] 02/08/2025 4:21 PM EDT * Nara Aguilar, GLASS DESIGNER - 02/07/2025 3:35 PM EDT [employer] [...] 386 ms QTC Interval 407 ms P [place] 57 degrees R AXIS (MCT) -71 degrees T Wave [place] 40 degrees Monarch Diagnosis Age and gender specific ECG analysis [...] Balbuena Admit Date: 02/06/2025 LOS: 1 days Location:[address] [place] [address] PCP on file: Provider Not In The [...] 386 ms QTC Interval 407 ms P [place] 57 degrees R AXIS (MCT) -71 degrees T Wave [place] 40 degrees Monarch Diagnosis Age and gender specific ECG analysis [...] Procedure Component Value Units Date/Time CTA chest [[id number]] Collected: 02/06/252134 Order Status: Completed Updated: 02/06/252155 [...] by Gareth Meza. CTA abdomen & pelvis [[id number]] Collected: 02/06/252134 Order Status: Completed Updated: 02/06/252155 [...] COPD, previous alcohol abuse, and hypertensionpresents to [facility] in [place], [place] for further evaluation and management of coughing up blood. Family at bedside assisted with history of present illness. Family states patient used to have history of alcohol abuse however patient has since stopped drinking approximately 1 year prior. Patient and family state that approximately 2 weeks prior to admission [facility] and states patient underwent what sounds like transesophageal echocardiogram. Patient seemingly tolerated procedure well with no obvious acute complications at that time. On day of admission patient began to begin coughing up blood and family states she had blood coming out of her nose. Patient and family deny recent nausea/vomiting or other precipitous symptoms. Patient sought evaluation at [facility] emergency department where patient began coughing [...] file. 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 CTA abdomen & pelvis [[id number]] Collected: 02/06/252134 Order Status: Completed Updated: 02/06/252155 [...] with ER provider Dr. Ricardo Gordon at [facility] emergency department. -Laboratory work and pertinent [...] ESOPHAGOGASTRODUODENOSCOPY (EGD); Surgeon: Marisa Garcia MD; Location: [facility]; Service: Gastroenterology; Laterality: N/A; Allergies: No Known [...] DNR. No vent. Disposition: 303 Tish Leiva, GLASS DESIGNER Time spent [address] chest [...] is agreeable to see us in clinic. Plier Worker will see her in the morning. Cosigned [...] 386 ms QTC Interval 407 ms P [place] 57 degrees R AXIS (MCT) -71 degrees T Wave [place] 40 degrees Monarch Diagnosis Age and gender specific ECG analysis [...] Value Units Date/Time CTA abdomen & pelvis [[id number]] Resulted: 02/06/251910 Order Status: Sent Updated: 02/06/251918 CTA chest [[id number]] Resulted: 02/06/251910 Order Status: Sent Updated: 02/06/251917 [...] bleeding or ulcer was visible. CPT Codes: 24294- EGD with bleeding control Surgeon(s) and Role: [...] HPI. Physical Exam ED Triage Vitals [02/06/25 1825] Encounter Vitals Group BP (!) 153/72 Systolic [...] 386 ms QTC Interval 407 ms P [place] 57 degrees R AXIS (MCT) -71 degrees T Wave [place] 40 degrees Monarch Diagnosis Age and gender specific ECG analysis [...] - 15.7 GM/DL 02/08/2025 3:55 PM EDT [facility] Hematocrit 25.3(L) 34.1 - 44.9 % 02/08/2025 3:55 PM EDT [facility] Blood Venipuncture / Unknown 02/08/2025 3:46 PM EDT 02/08/2025 3:50 PM EDT Nara Aguilar GLASS DESIGNER LAB BLOOD ORDERABLES Fi nal Result Performing Organization Address City/State/[facility] Co de Phone Number [facility] [address] [place] [address] * (ABNORMAL) Manual Differential (02/08/2025 4:41 AM EDT) Pathologist [facility] Total Counted 100 02/08/2025 9:00 AM EDT [facility] % Neutros (manual) 70(H) 50 - 65 % 02/08/2025 9:00 AM EDT [facility] % Bands (manual) 2 % 02/08/2025 9:00 AM EDT [facility] % Lymphs (manual) 23(L) 24 - 44 % 02/08/2025 9:00 AM EDT [facility] % Monos (manual) 1(L) 4 - 5 % 02/08/2025 9:00 AM EDT [facility] % Eos (manual) 4(H) 0 - 3 % 02/08/2025 9:00 AM EDT [facility] RBC Morphology abnormal(A) Normal 9:00 AM EDT [facility] Platelet Estimate Adequate Adequate 02/08/2025 9:00 AM EDT [facility] Hypochromia 1+ 02/08/2025 9:00 AM EDT [facility] Ovalocytes 1+ 02/08/2025 9:00 AM EDT [facility] ANC# 5.54 K/ L 02/08/2025 9:00 AM EDT [facility] Blood Venipuncture / Unknown 02/08/2025 4:41 AM EDT 02/08/2025 5:01 AM EDT us Nara Aguilar GLASS DESIGNER LAB BLOOD ORDERABLES Fi nal Result [facility] [address] [phone] * (ABNORMAL) Comprehensive metabolic panel (02/08/2025 4:41 AM EDT) Sodium 135(L) 136 - 145 meq/L 02/08/2025 5:59 AM EDT [facility] Potassium 3.7 3.4 - 5.1 meq/L 02/08/2025 5:59 AM EDT [facility] Chloride 98 98 - 112 meq/L 02/08/2025 5:59 AM EDT [facility] CO2 29 22 - 29 meq/L 02/08/2025 5:59 AM EDT [facility] Calcium 9.1 8.4 - 10.2 mg/dL 02/08/2025 5:59 AM EDT [facility] Glucose 85 82 - 115 mg/dL 02/08/2025 5:59 AM EDT [facility] BUN 8.3(L) 9.8 - 20.1 mg/dL 02/08/2025 5:59 AM EDT [facility] Creatinine 0.77 0.57 - 1.11 mg/dL 02/08/2025 5:59 AM EDT [facility] BUN/Creatinine 11 8 - 20 02/08/2025 5:59 AM EDT [facility] eGFR (mL/min/1.73m2) 84 >=60 mL/min/1. 73m2 02/08/2025 5:59 AM EDT [facility] Albumin 2.3(L) 3.5 - 5.0 g/dL 02/08/2025 5:59 AM EDT [facility] Alkaline Phosphatase 38(L) 40 - 150 U/L 02/08/2025 5:59 AM EDT [facility] ALT <7 <=34 U/L 02/08/2025 5:59 AM EDT [facility] Comment: ALT2 reagent used for testing does not contain P5P supplementation and therefore may miss ALT elevations in patients with B6 deficiency. This population may be as high as 10% in the [place], with risk factors including malabsorption, drug interactions, and alcoholic hepatitis. AST 11 11 - 34 U/L 02/08/2025 5:59 AM EDT [facility] Comment: AST2 reagent used for testing does not contain P5P supplementation and therefore may miss AST elevations in patients with B6 deficiency. This population may be as high as 10% in the [place], with risk factors including malabsorption, drug interactions, and alcoholic hepatitis. Total Bilirubin 0.2 0.2 - 1.2 mg/dL 02/08/2025 5:59 AM EDT [facility] Protein, Total 5.0(L) 6.4 - 8.3 g/dL 02/08/2025 5:59 AM EDT [facility] Globulin 2.7 2.5 - 4.1 g/dL 02/08/2025 5:59 AM EDT [facility] Anion Gap 12 4 - 12 02/08/2025 5:59 AM EDT [facility] A/G Ratio 0.9 0.7 - 1.9 02/08/2025 5:59 AM EDT [facility] Osmolality Calc 267.8 mOsm/kg 5:59 AM EDT [facility] Blood Venipuncture / Unknown 02/08/2025 4:41 AM EDT 02/08/2025 5:05 AM EDT us Nara Aguilar GLASS DESIGNER LAB BLOOD ORDERABLES Fi nal Result [facility] [address] [phone] * Magnesium (02/08/2025 4:41 AM EDT) Magnesium 1.6 1.6 - 2.6 mg/dL 02/08/2025 5:54 AM EDT [facility] Blood Venipuncture / Unknown 02/08/2025 4:41 AM EDT 02/08/2025 5:05 AM EDT Nara Aguilar GLASS DESIGNER LAB BLOOD ORDERABLES Fi nal Result [facility] [address] [phone] * (ABNORMAL) CBC with automated diff (02/08/2025 4:41 AM EDT) [facility] WBC 7.7 4.0 - 10.0 K/ L 02/08/2025 6:12 AM EDT [facility] RBC 2.75(L) 3.93 - 5.22 M/ L 02/08/2025 6:12 AM EDT [facility] Hemoglobin 8.1(L) 11.2 - 15.7 GM/DL 02/08/2025 6:12 AM EDT [facility] Hematocrit 25.8(L) 34.1 - 44.9 % 02/08/2025 6:12 AM EDT [facility] MCV 94 79 - 95 fL 02/08/2025 6:12 AM EDT [facility] MCH 29.5 25.6 - 32.2 pg 02/08/2025 6:12 AM EDT [facility] MCHC 31.4(L) 32.2 - 35.5 GM/DL 02/08/2025 6:12 AM EDT [facility] RDW 14.2 11.7 - 14.4 % 02/08/2025 6:12 AM EDT [facility] Platelets 315 140 - 375 K/CU MM 02/08/2025 6:12 AM EDT [facility] MPV 9.0(L) 9.4 - 12.3 fL 02/08/2025 6:12 AM EDT [facility] NRBC Absolute <0.01 0 - 0.012 K/ul 02/08/2025 6:12 AM EDT [facility] Blood Venipuncture / Unknown 02/08/2025 4:41 AM EDT 02/08/2025 5:01 AM EDT Narrative [facility] - 02/08/2025 6:12 AM EDT When [...] noted Atypical Lymph flag noted Narairis Aguilar [facility] LAB BLOOD ORDERABLES Fi nal Result [facility] [address] [phone] * (ABNORMAL) Hemoglobin and hematocrit (02/07/2025 5:51 PM EDT) Hemoglobin 8.3(L) 11.2 - 15.7 GM/DL 02/07/2025 6:47 PM EDT [facility] Hematocrit 26.9(L) 34.1 - 44.9 % 02/07/2025 6:47 PM EDT [facility] Blood Venipuncture / Unknown 02/07/2025 5:51 PM EDT 02/07/2025 6:45 PM EDT Narairis Aguilar [facility] LAB BLOOD ORDERABLES Fi nal Result [facility] [address] [phone] * (ABNORMAL) Basic Metabolic Panel (02/07/2025 5:18 AM EDT) Sodium 136 136 - 145 meq/L 02/07/2025 6:20 AM EDT [facility] Potassium 4.9 3.4 - 5.1 meq/L 02/07/2025 6:20 AM EDT [facility] CO2 29 22 - 29 meq/L 02/07/2025 6:20 AM EDT [facility] Chloride 99 98 - 112 meq/L 02/07/2025 6:20 AM EDT [facility] Glucose 85 82 - 115 mg/dL 02/07/2025 6:20 AM EDT [facility] BUN 13.0 9.8 - 20.1 mg/dL 02/07/2025 6:20 AM EDT [facility] Creatinine 0.84 0.57 - 1.11 mg/dL 02/07/2025 6:20 AM EDT [facility] BUN/Creatinine 15 8 - 20 02/07/2025 6:20 AM EDT [facility] Calcium 10.0 8.4 - 10.2 mg/dL 02/07/2025 6:20 AM EDT [facility] Anion Gap 13(H) 4 - 12 02/07/2025 6:20 AM EDT [facility] eGFR (mL/min/1.73m2) 75 >=60 mL/min/1.7 3m2 02/07/2025 6:20 AM EDT [facility] Osmolality Calc 271.3 mOsm/kg 6:20 AM EDT [facility] Blood Venipuncture / Unknown 02/07/2025 5:18 AM EDT 02/07/2025 5:59 AM EDT us Von Sloan PA-C LAB BLOOD ORDERABLES Final Res ult Performing Organization Address City/State/[facility] Co de Phone Number [facility] [address] [phone] * (ABNORMAL) CBC - Hemogram (SJ-BKR) (02/07/2025 5:18 AM EDT) WBC 11.6(H) 4.0 - 10.0 K/ L 02/07/2025 6:04 AM EDT [facility] RBC 3.14(L) 3.93 - 5.22 M/ L 02/07/2025 6:04 AM EDT [facility] Hemoglobin 9.1(L) 11.2 - 15.7 GM/DL 02/07/2025 6:04 AM EDT [facility] Hematocrit 30.4(L) 34.1 - 44.9 % 02/07/2025 6:04 AM EDT [facility] MCV 97(H) 79 - 95 fL 02/07/2025 6:04 AM EDT [facility] MCH 29.0 25.6 - 32.2 pg 02/07/2025 6:04 AM EDT [facility] MCHC 29.9(L) 32.2 - 35.5 GM/DL 02/07/2025 6:04 AM EDT [facility] RDW 14.5(H) 11.7 - 14.4 % 02/07/2025 6:04 AM EDT [facility] Platelets 340 140 - 375 K/CU MM 02/07/2025 6:04 AM EDT [facility] MPV 9.1(L) 9.4 - 12.3 fL 02/07/2025 6:04 AM EDT [facility] Blood Venipuncture / Unknown 02/07/2025 5:18 AM EDT 02/07/2025 5:58 AM EDT us Von Sloan PA-C LAB BLOOD ORDERABLES Final Res ult [facility] [address] [place] [address] * (ABNORMAL) Hemoglobin and hematocrit (02/06/2025 8:22 PM EDT) Hemoglobin 9.0(L) 11.2 - 15.7 GM/DL 02/06/2025 8:28 PM EDT [facility] Hematocrit 29.3(L) 34.1 - 44.9 % 02/06/2025 8:28 PM EDT [facility] Blood Venipuncture / Unknown 02/06/2025 8:22 PM EDT 02/06/2025 8:25 PM EDT us Bear Whitney PA-C LAB BLOOD ORDERABLES Final Resul t [facility] [address] [place] [address], [facility] [phone] * CTA abdomen & pelvis (02/06/2025 7:19 [...] [place]. Transcribed by Gareth Meza. Laura Gibson [facility] CT ORDERABLES Final Result * CTA [...] by Dr. Reymundo Salamanca. Transcribed by Gareth eMza. Narrative 02/06/2025 9:54 PM EDT CTA/PE PROTOCOL [...] - 10.0 K/ L [facility] 7[facility] RBC 3.47(L) 3.93 - 5.22 M/ L 02/06/2025 7:07 PM EDT [facility] Hemoglobin 10.2(L) 11.2 - 15.7 GM/DL 02/06/2025 7:07 PM [facility] Hematocrit 32.6(L) 34.1 - 44.9 % 02/06/2025 7:07 PM [facility] MCV 94 79 - 95 fL 02/06/2025 7:07 PM [facility] MCH 29.4 25.6 - 32.2 pg 02/06/2025 7:[address] [facility] MCHC 31.3(L) 32.2 - 35.5 GM/DL 02/06/2025 7:07 PM [facility] RDW 14.6(H) 11.7 - 14.4 % 02/06/2025 7:[address] [facility] Platelets 414(H) 140 - 375 K/CU MM 02/06/2025 7:07 PM EDT [facility] MPV 9.3(L) 9.4 - 12.3 fL 02/06/2025 7:07 PM EDT [facility] % Neutros 68 34 - 71 % 02/06/2025 7:07 PM EDT [facility] % Lymphs 23 19 - 52 % 02/06/2025 7:07 PM EDT [facility] % Monos 7 5 - 13 % 02/06/2025 7:07 PM EDT [facility] % Eos 2 1 - 6 % 02/06/2025 7:07 PM EDT [facility] % Baso 1 0 - 1 % 02/06/2025 7:07 PM EDT [facility] NRBC Absolute <0.01 0 - 0.012 K/ul 02/06/2025 7:07 PM EDT [facility] # Neutros 7.57(H) 1.56 - 6.13 K/ L 02/06/2025 7:07 PM EDT [facility] # Lymphs 2.55 1.18 - 3.74 K/ L 02/06/2025 7:07 PM EDT [facility] # Monos 0.72 0.24 - 0.86 K/ L 02/06/2025 7:07 PM EDT [facility] # Eos 0.18 0.04 - 0.36 K/ L 02/06/2025 7:07 PM EDT [facility] # Baso 0.07 0.01 - 0.08 K/ L 02/06/2025 7:07 PM EDT [facility] Immature Granulocytes-Re lative 0.40 0.01 - 0.43 % 02/06/2025 7:07 PM EDT [facility] # IG 0.04(H) 0.00 - 0.03 K/uL 02/06/2025 7:07 PM EDT [facility] Blood Venipuncture / Unknown 02/06/2025 6:25 PM EDT 02/06/2025 7:04 PM EDT Narrative [facility] - 02/06/2025 7:07 PM EDT When [...] ORDERABLES Final Resu lt Performing Organization Address [facility]/ZIP Co de Phone Number [facility] [address] [phone] * Type and Screen (02/06/2025 6:23 PM EDT) ABO/Rh O Positive 02/06/2025 6:05 PM EDT [facility] ([place]) Antibody Screen Negative 02/06/2025 6:05 PM EDT [facility] BLOOD [facility] ([place]) HISTCHK HIST CHECK PERFORMED 02/06/2025 6:05 PM EDT [facility] B[facility]OD [facility] ([place]) Blood Venipuncture / Unknown 02/06/2025 6:23 PM EDT 02/06/2025 7:04 PM EDT us Laura Gibson DO [facility] BLOOD BANK TEST ORDERABLES Final Result Performing Organization Address [facility] Co de Phone Number [facility] ([place]) [address] [place] [address] * (ABNORMAL) aPTT (02/06/2025 6:23 PM EDT) aPTT 32.8(H) 22.0 - 32.0 seconds 02/06/2025 7:21 PM EDT [facility] Blood Venipuncture / Unknown 02/06/2025 6:23 PM EDT 02/06/2025 7:04 PM EDT us Laura Gibson DO LAB BLOOD ORDERABLES Final Resu lt Performing Organization Address [facility]/ZIP Co de Phone Number [facility] [address] [phone] * Prothrombin time/INR (02/06/2025 6:23 PM EDT) [facility] Protime 10.4 9.0 - 12.0 seconds 02/06/2025 7:21 PM EDT [facility] INR 0.93 0.80 - 1.10 02/06/2025 7:21 PM EDT [facility] Comment: Recommended therapeutic ranges using International Normalized Ratio (INR) are: INR RANGE 2.0 - 3.0 Routine oral anticoagulant therapy 2.5 - 3.5 Oral anticoagulant therapy for patients with thromboembolic events on standard doses of Coumadin and those with mechanical heart valves. Blood Venipuncture / Unknown 02/06/2025 6:23 PM EDT 02/06/2025 7:04 PM EDT [employer] LAB BLOOD ORDERABLES Final Resu lt Performing Organization Address [facility] Co de Phone Number [facility] [address] [phone] * High Sensitivity Troponin I (02/06/2025 6:23 PM EDT) [facility] Troponin I High Sensitivity (pg/mL) 12.2 <=14 pg/mL 02/06/2025 7:29 PM EDT [facility] Blood Venipuncture / Unknown 02/06/2025 6:23 PM EDT 02/06/2025 7:04 PM EDT Narrative [facility] - 02/06/2025 7:29 PM EDT Applicable to [facility] only. Effective October 06 the lab will begin using a new chemistry analyzer. HsTroponin methodology, reference ranges and critical values have changed. [employer] [facility] BLOOD ORDERABLES Final Resu lt Performing Organization Address City/[facility]/ZIP Co de Phone Number [facility] [address] [phone] * Magnesium (02/06/2025 6:23 PM EDT) Magnesium 1.9 1.6 - 2.6 mg/dL 02/06/2025 7:26 PM EDT [facility] Blood Venipuncture / Unknown 02/06/2025 6:23 PM EDT 02/06/2025 7:04 PM EDT us Laura Gibson DO LAB BLOOD ORDERABLES Final Resu lt [facility] [address] [phone] * (ABNORMAL) Comprehensive metabolic panel (02/06/2025 6:23 PM EDT) Sodium 137 136 - 145 meq/L 02/06/2025 7:26 PM EDT [facility] Potassium 5.1 3.4 - 5.1 meq/L 02/06/2025 7:26 PM EDT [facility] Chloride 93(L) 98 - 112 meq/L 02/06/2025 7:26 PM EDT [facility] CO2 36(H) 22 - 29 meq/L 02/06/2025 7:26 PM EDT [facility] Calcium 11.6(H) 8.4 - 10.2 mg/dL 02/06/2025 7:26 PM EDT [facility] Glucose 104 82 - 115 mg/dL 02/06/2025 7:26 PM EDT [facility] BUN 13.4 9.8 - 20.1 mg/dL 02/06/2025 7:26 PM [facility] Creatinine 1.00 0.57 - 1.11 mg/dL 02/06/2025 7:26 PM [facility] BUN/Creatinine 13 8 - 20 02/06/2025 7:26 PM [facility] eGFR (mL/min/1.73m2) 61 >=60 mL/min/1. 73m2 02/06/2025 7:26 PM [facility] Albumin 2.9(L) 3.5 - 5.0 g/dL 02/06/2025 7:26 PM [facility] Alkaline Phosphatase 53 40 - 150 U/L 02/06/2025 7:26 PM [facility] ALT 8 <=34 U/L 02/06/2025 7:26 PM [facility] Comment: ALT2 reagent used for testing does not contain P5P supplementation and therefore may miss ALT elevations in patients with B6 deficiency. This population may be as high as 10% in the [place], with risk factors including malabsorption, drug interactions, and alcoholic hepatitis. AST 14 11 - 34 U/L 02/06/2025 7:26 PM [facility]T [facility] Comment: AST2 reagent used for testing does not contain P5P supplementation and therefore may miss AST elevations in patients with B6 deficiency. This population may be as high as 10% in the [place], with risk factors including malabsorption, drug interactions, and alcoholic hepatitis. Total Bilirubin 0.2 0.2 - 1.2 mg/dL 02/06/2025 7:26 PM EDT [facility] Protein, Total 6.5 6.4 - 8.3 g/dL 02/06/2025 7:26 PM EDT [facility] Globulin 3.6 2.5 - 4.1 g/dL 02/06/2025 7:26 PM EDT [facility] Anion Gap 13(H) 4 - 12 02/06/2025 7:26 PM EDT [facility] A/G Ratio 0.8 0.7 - 1.9 02/06/2025 7:26 PM EDT [facility] Osmolality Calc 274.4 mOsm/kg 7:26 PM EDT [facility] Blood Venipuncture / Unknown 02/06/2025 6:23 PM EDT 02/06/2025 7:04 PM EDT us Laura Gibson DO LAB BLOOD ORDERABLES Final Resu lt [facility] [address] [phone] * ECG 12 lead (02/06/2025 5:41 PM EDT) VENTRICULAR RATE EKG/MIN 67 BPM GE MUSE ATRIAL RATE (MCT) 69 BPM GE MUSE AR Interval 152 ms GE MUSE QRS-INTERVAL (MSEC) 80 ms GE MUSE QT Interval 386 ms GE MUSE QTC Interval 407 ms GE MUSE P [place] 57 degrees GE MUSE R AXIS (MCT) -71 degrees GE MUSE T Wave [place] 40 degrees GE MUSE [facility] Diagnosis Age and gender specific ECG analysis [...] HEAVENLY) 0043 (Given - Provider: Jordyn Garcia, ABAP DEVELOPER)0412 (Not Given - Provider: Jordyn Garcia, ABAP DEVELOPER - Reason: Patient/family refused)0740 (Given - Provider: Josee Lala, ABAP DEVELOPER)1025 (Given - Provider: Laura Falcon, PAPER PRODUCTS MACHINE OPERATOR)1530 (Given - Provider: Laura Falcon, PAPER PRODUCTS MACHINE OPERATOR)1940 (Given - Provider: Pete Mcnulty)2309 (Given - [...] minutes. documented in this encounter Care Teams Legal Contracts Specialist Relationship Specialty Start Date End Date [facility], Provider Not In The System, [place] [address] PCP - General 02/06/25 documented as of this encounter
--- OUTSIDE RECORDS SUMMARY | 2025-02-06 19:00 | XMS_ITS | Encounter Summary ---
Author Organization [employer] ([place], [place], [place], [place]) Address [address] [place] [address] Care Team Providers Care Supervisor Aircraft Cleaning Name Role Phone [facility], Provider Not In The System Primary Care [...] unspecified whether nausea present Anticoagulated on Eliquis [facility] Cardiac Telemetry [address] [place] [address] Phone: tel: fax: [facility] Cardiac Telemetry [address] [place] [address] Phone: tel: fax: Referral ID Status Reason Start Date Expiration Date Visits Re quested Visits Authorized [id number] 1 1 Encounter Details Date Type Department Care Team (Late st Contact Info) Description 02/06/2025 7:00 PM EDT - 02/06/2025 7:39 PM EDT Surgery [facility] End[facility] [address] [place] [address] Marisa Garcia MD [address] [place] [address] ESOPHAGOGASTRODUODENOSCOPY (EGD) Social History Tobacco Use Types [...] your living situation today? I have a [facility] place to live 02/07/2025 Think about [...] Do you speak a language other than Lao at [facility]? No 02/07/2025 Do you [...] In The System MD Jorje Hospital Course Shell Trim Tool Setter(s): GI, pulmonology Discharge Diagnosis: Nusrat-Prajapati tear Hematemesis [...] Your Medications These medications were sent to [facility] [address] [facility] [address] [address] pantoprazole 40 MG tablet sucralfate 100 mg/mL [...] MD Jorje Relationship: PCP - General [address] [place] [address] Next Steps: Schedule an appointment as soon as possible for a visit in 1 week(s) Instructions: Unable to reach the office of pcp. Please call to schedule. repeat CBC Marisa Garcia MD Specialty: Gastroenterology [address] [facility] [address] [place] [address] Next Steps: Follow up in 2 month(s) Instructions: Repeat EGD office will be reaching out with appontment. Time Spent on Discharge: I spent 35 minutes in cizr-ia-ttmx time with the patient and nursing staffconcerning [...] be sent through Care Everywhere. 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 60 tablet 02/09/2025 polyethylene glycol (GLYCOLAX) 17 gram packet Take [...] ESOPHAGOGASTRODUODENOSCOPY (EGD); Surgeon: Marisa Garcia MD; Location: [facility]; Service: Gastroenterology; Laterality: N/A; Allergies: [...] personally evaluated the patient and performed a qagh-vo-bhjk diagnostic evaluation on this patient; I have Obtained history, performed physical examination, reviewed laboratory studies. I have independently interpreted chest images. I have actively directed the medical care, formulated diagnosis, and the plan of care. Patient requires a high complexity of decision making for assessment.Voice carcass washer technology ([employer]) is used for dictation of this note and sound-alike words might be erroneously placed despite reviewing the note for accuracy. Errors in dictation may reflect use of voice recognition software and not all errors in carcass washer may have been detected prior to signing. [...] 3 mL, nebulization, Q6H PRN, Nara Aguilar, HAM PUMPER ipratropium-albuteroL (DUO-NEB) 0.5 mg-3 mg(2.5 mg base)/3 mL nebulizer solution 3 mL, 3 mL, nebulization, Q4H, Nara Aguilar, HAM PUMPER, 3 mL at 02/08/25 1025 magnesium sulfate [...] Balbuena Admit Date: 02/06/2025 LOS: 2 days Location:[facility]- PCP on file: Provider Not In The [...] Procedure Component Value Units Date/Time CTA chest [[id number]] Collected: 02/06/252134 Order Status: Completed Updated: 02/06/252155 [...] by Gareth Meza. CTA abdomen & pelvis [[id number]] Collected: 02/06/252134 Order Status: Completed Updated: 02/06/252155 [...] 67 BPM ATRIAL RATE (MCT) 69 BPM AL Interval 152 ms QRS-INTERVAL (MSEC) 80 ms QT Interval 386 ms QTC Interval 407 ms P [place] 57 degrees R AXIS (MCT) -71 degrees T Wave [place] 40 degrees [place] Diagnosis Age and gender specific ECG analysis [...] Balbuena Admit Date: 02/06/2025 LOS: 1 days Location:[address] [place] [address] PCP on file: Provider Not In The [...] 67 BPM ATRIAL RATE (MCT) 69 BPM AL Interval 152 ms QRS-INTERVAL (MSEC) 80 ms QT Interval 386 ms QTC Interval 407 ms P [place] 57 degrees R AXIS (MCT) -71 degrees T Wave [place] 40 degrees [place] Diagnosis Age and gender specific ECG analysis [...] Procedure Component Value Units Date/Time CTA chest [[id number]] Collected: 02/06/252134 Order Status: Completed Updated: 02/06/252155 [...] by Gareth Meza. CTA abdomen & pelvis [[id number]] Collected: 02/06/252134 Order Status: Completed Updated: 02/06/252155 [...] Sloan PA-C - 02/06/2025 10:35 PM EDT [facility]ITAL[facility] H[facility]ORY AND PHYSICAL Patient Name: Iqra Balbuena : 1955 Date: 02/06/2025 PCP: Provider Not In The System MD Jorje Date of Admission: 02/06/2025 Chief Complaint: Coughing up blood Chief Complaint Patient presents with coughing up blood History of Present Illness Iqra Balbuena is a 69 y.o. female with a history of COPD, previous alcohol abuse, and hypertensionpresents to [facility] in [place], [place] for further evaluation and management of coughing up blood. Family at bedside assisted with history of present illness. Family states patient used to have history of alcohol abuse however patient has since stopped drinking approximately 1 year prior. Patient and family state that approximately 2 weeks prior to admission [facility] and states patient underwent what sounds like transesophageal echocardiogram. Patient seemingly tolerated procedure well with no obvious acute complications at that time. On day of admission patient began to begin coughing up blood and family states she had blood coming out of her nose. Patient and family deny recent nausea/vomiting or other precipitous symptoms. Patient sought evaluation at [facility] emergency department where patient began coughing [...] file. Documented Allergies: No Known Allergies Documented PROCUREMENT BUYER Medications: (Not in a hospital admission) Review [...] data in the 24 hours ending 02/06/25 7087 Physical Exam Vitals reviewed. Constitutional: General: She [...] 67 BPM ATRIAL RATE (MCT) 69 BPM AL Interval 152 ms QRS-INTERVAL (MSEC) 80 ms QT Interval 386 ms QTC Interval 407 ms P [place] 57 degrees R AXIS (MCT) -71 degrees T Wave [place] 40 degrees [place] Diagnosis Age and gender specific ECG analysis [...] Procedure Component Value Units Date/Time CTA chest [[id number]] Collected: 02/06/252134 Order Status: Completed Updated: 02/06/252155 [...] by Gareth Meza. CTA abdomen & pelvis [[id number]] Collected: 02/06/252134 Order Status: Completed Updated: 02/06/252155 [...] suspension 1 g 1 g oral Q6H [facility] Marisa Garcia MD 1 g at Current [...] with ER provider Dr. Ricardo Gordon at [facility] emergency department. -Laboratory work and pertinent [...] ESOPHAGOGASTRODUODENOSCOPY (EGD); Surgeon: Marisa Garcia MD; Location: [facility]; Service: Gastroenterology; Laterality: N/A; Allergies: [...] is agreeable to see us in clinic. Fiber Optic Assembler will see her in the morning. Cosigned [...] 67 BPM ATRIAL RATE (MCT) 69 BPM AL Interval 152 ms QRS-INTERVAL (MSEC) 80 ms QT Interval 386 ms QTC Interval 407 ms P [place] 57 degrees R AXIS (MCT) -71 degrees T Wave [place] 40 degrees [place] Diagnosis Age and gender specific ECG analysis [...] Value Units Date/Time CTA abdomen & pelvis [[id number]] Resulted: 02/06/251910 Order Status: Sent Updated: 02/06/251918 CTA chest [[id number]] Resulted: 02/06/251910 Order Status: Sent Updated: 02/06/251917 [...] bleeding or ulcer was visible. CPT Codes: 40523- EGD with bleeding control Surgeon(s) and Role: [...] 67 BPM ATRIAL RATE (MCT) 69 BPM AL Interval 152 ms QRS-INTERVAL (MSEC) 80 ms QT Interval 386 ms QTC Interval 407 ms P [place] 57 degrees R AXIS (MCT) -71 degrees T Wave [place] 40 degrees [place] Diagnosis Age and gender specific ECG analysis [...] (18 mcg total) by mouth daily. Ricardo oGrdon MD 02/06/252219 * Sabine Bullock RN - [...] AND HEMATOCRIT STAT 02/06/2025 8:22 PM EDT AL EGD TRANSORAL CONTROL BLEEDING ANY METHOD 02/06/2025 [...] Hemoglobin and hematocrit (02/08/2025 3:46 PM EDT) [facility] Hemoglobin 8.2(L) 11.2 - 15.7 GM/DL 02/08/2025 3:55 PM EDT [facility] Hematocrit 25.3(L) 34.1 - 44.9 % 02/08/2025 3:55 PM EDT [facility] Blood Venipuncture / Unknown 02/08/2025 3:46 PM EDT 02/08/2025 3:50 PM EDT us Nara Aguilar HAM PUMPER LAB BLOOD ORDERABLES Fi nal Result [facility] [address] [place] [address], [facility] [phone] * (ABNORMAL) Manual Differential (02/08/2025 4:41 AM EDT) [facility] Total Counted 100 02/08/2025 9:00 AM EDT [facility] % Neutros (manual) 70(H) 50 - 65 % 02/08/2025 9:00 AM EDT [facility] % Bands (manual) 2 % 02/08/2025 9:00 AM EDT [facility] % Lymphs (manual) 23(L) 24 - 44 % 02/08/2025 9:00 AM EDT [facility] % Monos (manual) 1(L) 4 - 5 % 02/08/2025 9:00 AM EDT [facility] % Eos (manual) 4(H) 0 - 3 % 02/08/2025 9:00 AM EDT [facility] RBC Morphology abnormal(A) Normal 9:00 AM EDT [facility] Platelet Estimate Adequate Adequate 02/08/2025 9:00 AM EDT [facility] Hypochromia 1+ 02/08/2025 9:00 AM EDT [facility] Ovalocytes 1+ 02/08/2025 9:00 AM EDT [facility] ANC# 5.54 K/ L 02/08/2025 9:00 AM EDT [facility] Blood Venipuncture / Unknown 02/08/2025 4:41 AM EDT 02/08/2025 5:01 AM EDT us Nara Aguilar HAM PUMPER LAB BLOOD ORDERABLES Fi nal Result Performing Organization Address [facility]/State/[facility] Co de Phone Number [facility] [address] [place] [address] * (ABNORMAL) Comprehensive metabolic panel (02/08/2025 4:41 AM EDT) Sodium 135(L) 136 - 145 meq/L 02/08/2025 5:59 AM EDT [facility] Potassium 3.7 3.4 - 5.1 meq/L 02/08/2025 5:59 AM EDT [facility] Chloride 98 98 - 112 meq/L 02/08/2025 5:59 AM EDT [facility] CO2 29 22 - 29 meq/L 02/08/2025 5:59 AM [facility] Calcium 9.1 8.4 - 10.2 mg/dL 02/08/2025 5:59 AM [facility] Glucose 85 82 - 115 mg/dL 02/08/2025 5:59 AM [facility] BUN 8.3(L) 9.8 - 20.1 mg/dL 02/08/2025 5:59 AM [facility] Creatinine 0.77 0.57 - 1.11 mg/dL 02/08/2025 5:59 AM [facility] BUN/Creatinine 11 8 - 20 02/08/2025 5:59 AM [facility] eGFR (mL/min/1.73m2) 84 >=60 mL/min/1. 73m2 02/08/2025 5:59 AM [facility] Albumin 2.3(L) 3.5 - 5.0 g/dL 02/08/2025 5:59 AM [facility] Alkaline Phosphatase 38(L) 40 - 150 U/L 02/08/2025 5:59 AM [facility] ALT <7 <=34 U/L 02/08/2025 5:59 AM [facility] Comment: ALT2 reagent used for testing does not contain P5P supplementation and therefore may miss ALT elevations in patients with B6 deficiency. This population may be as high as 10% in the [place], with risk factors including malabsorption, drug interactions, and alcoholic hepatitis. AST 11 11 - 34 U/L 02/08/2025 5:59 AM [facility] Comment: AST2 reagent used for testing does not contain P5P supplementation and therefore may miss AST elevations in patients with B6 deficiency. This population may be as high as 10% in the [place], with risk factors including malabsorption, drug interactions, and alcoholic hepatitis. Total Bilirubin 0.2 0.2 - 1.2 mg/dL 02/08/2025 5:59 AM [facility] Protein, Total 5.0(L) 6.4 - 8.3 g/dL 02/08/2025 5:59 AM [facility] Globulin 2.7 2.5 - 4.1 g/dL 02/08/2025 5:59 AM EDT [facility] Anion Gap 12 4 - 12 02/08/2025 5:59 AM EDT [facility] A/G Ratio 0.9 0.7 - 1.9 02/08/2025 5:59 AM EDT [facility] Osmolality Calc 267.8 mOsm/kg 5:59 AM EDT [facility] Blood Venipuncture / Unknown 02/08/2025 4:41 AM EDT 02/08/2025 5:05 AM EDT Nara Aguilar HAM PUMPER LAB BLOOD ORDERABLES Fi nal Result Performing Organization Address City/[facility]/ZIP Co de Phone Number [facility] [address] [phone] * Magnesium (02/08/2025 4:41 AM EDT) Magnesium 1.6 1.6 - 2.6 mg/dL 02/08/2025 5:54 AM EDT [facility] Blood Venipuncture / Unknown 02/08/2025 4:41 AM EDT 02/08/2025 5:05 AM EDT Nara Aguilar HAM PUMPER LAB BLOOD ORDERABLES Fi nal Result Performing Organization Address City/[facility]/ZIP Co de Phone Number [facility] [address] [phone] * (ABNORMAL) CBC with automated diff (02/08/2025 4:41 AM EDT) WBC 7.7 4.0 - 10.0 K/ L 02/08/2025 6:12 AM EDT [facility] RBC 2.75(L) 3.93 - 5.22 M/ L 02/08/2025 6:12 AM EDT [facility] Hemoglobin 8.1(L) 11.2 - 15.7 GM/DL 02/08/2025 6:12 AM EDT [facility] Hematocrit 25.8(L) 34.1 - 44.9 % 02/08/2025 6:12 AM EDT [facility] MCV 94 79 - 95 fL 02/08/2025 6:12 AM EDT [facility] MCH 29.5 25.6 - 32.2 pg 02/08/2025 6:12 AM EDT [facility] MCHC 31.4(L) 32.2 - 35.5 GM/DL 02/08/2025 6:12 AM EDT [facility] RDW 14.2 11.7 - 14.4 % 02/08/2025 6:12 AM EDT [facility] Platelets 315 140 - 375 K/CU MM 02/08/2025 6:12 AM EDT [facility] MPV 9.0(L) 9.4 - 12.3 fL 02/08/2025 6:12 AM EDT [facility] NRBC Absolute <0.01 0 - 0.012 K/ul 02/08/2025 6:12 AM EDT [facility] Blood Venipuncture / Unknown 02/08/2025 4:41 AM EDT 02/08/2025 5:[address] [facility] - 02/08/2025 6:12 AM EDT [...] Atypical Lymph flag noted us Nara Aguilar HAM PUMPER LAB BLOOD ORDERABLES Fi nal Result [facility] [address] [place] [id number] [phone] * (ABNORMAL) Hemoglobin and hematocrit (02/07/2025 5:51 PM EDT) Hemoglobin 8.3(L) 11.2 - 15.7 GM/DL 02/07/2025 6:47 PM EDT [facility] Hematocrit 26.9(L) 34.1 - 44.9 % 02/07/2025 6:47 PM EDT [facility] Blood Venipuncture / Unknown 02/07/2025 5:51 PM EDT 02/07/2025 6:45 PM EDT Nara Blainealbarosaúl HAM PUMPER LAB BLOOD ORDERABLES Fi nal Result [facility] [address] [phone] * (ABNORMAL) Basic Metabolic Panel (02/07/2025 5:18 AM EDT) Sodium 136 136 - 145 meq/L 02/07/2025 6:20 AM EDT [facility] Potassium 4.9 3.4 - 5.1 meq/L 02/07/2025 6:20 AM EDT [facility] CO2 29 22 - 29 meq/L 02/07/2025 6:20 AM EDT [facility] Chloride 99 98 - 112 meq/L 02/07/2025 6:20 AM EDT [facility] Glucose 85 82 - 115 mg/dL 02/07/2025 6:20 AM EDT [facility] BUN 13.0 9.8 - 20.1 mg/dL 02/07/2025 6:20 AM EDT [facility] Creatinine 0.84 0.57 - 1.11 mg/dL 02/07/2025 6:20 AM EDT [facility] BUN/Creatinine 15 8 - 20 02/07/2025 6:20 AM EDT [facility] Calcium 10.0 8.4 - 10.2 mg/dL 02/07/2025 6:20 AM EDT [facility] Anion Gap 13(H) 4 - 12 02/07/2025 6:20 AM EDT [facility] eGFR (mL/min/1.73m2) 75 >=60 mL/min/1.7 3m2 02/07/2025 6:20 AM EDT [facility] Osmolality Calc 271.3 mOsm/kg 6:20 AM EDT [facility] Blood Venipuncture / Unknown 02/07/2025 5:18 AM EDT 02/07/2025 5:59 AM EDT us Von Sloan PA-C LAB BLOOD ORDERABLES Final Res ult [facility] [address] [phone] * (ABNORMAL) CBC - Hemogram (SJ-BKR) (02/07/2025 5:18 AM EDT) WBC 11.6(H) 4.0 - 10.0 K/ L 02/07/2025 6:04 AM EDT [facility] RBC 3.14(L) 3.93 - 5.22 M/ L 02/07/2025 6:04 AM EDT [facility] Hemoglobin 9.1(L) 11.2 - 15.7 GM/DL 02/07/2025 6:04 AM EDT [facility] Hematocrit 30.4(L) 34.1 - 44.9 % 02/07/2025 6:04 AM EDT [facility] MCV 97(H) 79 - 95 fL 02/07/2025 6:04 AM EDT [facility] MCH 29.0 25.6 - 32.2 pg 02/07/2025 6:04 AM EDT [facility] MCHC 29.9(L) 32.2 - 35.5 GM/DL 02/07/2025 6:04 AM EDT [facility] RDW 14.5(H) 11.7 - 14.4 % 02/07/2025 6:04 AM EDT [facility] Platelets 340 140 - 375 K/CU MM 02/07/2025 6:04 AM EDT [facility] MPV 9.1(L) 9.4 - 12.3 fL 02/07/2025 6:04 AM EDT [facility] Blood Venipuncture / Unknown 02/07/2025 5:18 AM EDT 02/07/2025 5:58 AM EDT Von Sloan PA-C LAB BLOOD ORDERABLES Final Res ult [facility] [address] [phone] * (ABNORMAL) Hemoglobin and hematocrit (02/06/2025 8:22 PM EDT) Hemoglobin 9.0(L) 11.2 - 15.7 GM/DL 02/06/2025 8:28 PM EDT [facility] Hematocrit 29.3(L) 34.1 - 44.9 % 02/06/2025 8:28 PM EDT [facility] Blood Venipuncture / Unknown 02/06/2025 8:22 PM EDT 02/06/2025 8:25 PM EDT Bear Whitney PA-C LAB BLOOD ORDERABLES Final Resul t [facility] [address] [place] [address], [facility] [phone] * CTA abdomen & pelvis (02/06/2025 7:19 [...] Transcribed by Gareth Meza. Laura Gibson DO [facility] ORDERABLES Final Result * CTA chest [...] by Gareth Meza. us Laura Gibson DO [facility] ORDERABLES Final Result * (ABNORMAL) CBC with Auto Diff (02/06/2025 6:25 PM EDT) WBC 11.1(H) 4.0 - 10.0 K/ L 02/06/2025 7:07 PM EDT [facility] RBC 3.47(L) 3.93 - 5.22 M/ L 02/06/2025 7:07 PM EDT [facility] Hemoglobin 10.2(L) 11.2 - 15.7 GM/DL 02/06/2025 7:07 PM EDT [facility] Hematocrit 32.6(L) 34.1 - 44.9 % 02/06/2025 7:07 PM EDT [facility] MCV 94 79 - 95 fL 02/06/2025 7:07 PM EDT [facility] MCH 29.4 25.6 - 32.2 pg 02/06/2025 7:07 PM EDT [facility] MCHC 31.3(L) 32.2 - 35.5 GM/DL 02/06/2025 7:07 PM EDT [facility] RDW 14.6(H) 11.7 - 14.4 % 02/06/2025 7:07 PM EDT [facility] Platelets 414(H) 140 - 375 K/CU MM 02/06/2025 7:07 PM EDT [facility] MPV 9.3(L) 9.4 - 12.3 fL 02/06/2025 7:07 PM EDT [facility] % Neutros 68 34 - 71 % 02/06/2025 7:07 PM EDT [facility] % Lymphs 23 19 - 52 % 02/06/2025 7:07 PM EDT [facility] % Monos 7 5 - 13 % 02/06/2025 7:07 PM EDT [facility] % Eos 2 1 - 6 % 02/06/2025 7:07 PM EDT [facility] % Baso 1 0 - 1 % 02/06/2025 7:07 PM EDT [facility] NRBC Absolute <0.01 0 - 0.012 K/ul 02/06/2025 7:07 PM EDT [facility] # Neutros 7.57(H) 1.56 - 6.13 K/ L 02/06/2025 7:07 PM EDT [facility] # Lymphs 2.55 1.18 - 3.74 K/ L 02/06/2025 7:07 PM EDT [facility] # Monos 0.72 0.24 - 0.86 K/ L 02/06/2025 7:07 PM EDT [facility] # Eos 0.18 0.04 - 0.36 K/ L 02/06/2025 7:07 PM EDT [facility] # Baso 0.07 0.01 - 0.08 K/ L 02/06/2025 7:07 PM EDT [facility] Immature Granulocytes-Re lative 0.40 0.01 - 0.43 % 02/06/2025 7:07 PM EDT [facility] # IG 0.04(H) 0.00 - 0.03 K/uL 02/06/2025 7:07 PM EDT [facility] Blood Venipuncture / Unknown 02/06/2025 6:25 PM EDT 02/06/2025 7:04 PM EDT Narrative [facility] - 02/06/2025 7:07 PM EDT When [...] DO LAB BLOOD ORDERABLES Final Resu lt [facility] [address] [phone] * Type and Screen (02/06/2025 6:23 PM EDT) ABO/Rh O Positive 02/06/2025 6:05 PM EDT [facility] (OR) Antibody Screen Negative 02/06/2025 6:05 PM EDT [facility] (OR) HISTCHK HIST CHECK PERFORMED 02/06/2025 6:05 PM EDT [facility] (OR) Blood Venipuncture / Unknown 02/06/2025 6:23 PM EDT 02/06/2025 7:04 PM EDT Laura Gibson [facility] TEST ORDERABLES Final Result Performing Organization Address City/[facility]/ZIP Co de Phone Number [facility] (OR) [address] [place] [address], [facility] [phone] * (ABNORMAL) aPTT (02/06/2025 6:23 PM EDT) aPTT 32.8(H) 22.0 - 32.0 seconds 02/06/2025 7:21 PM EDT [facility] Blood Venipuncture / Unknown 02/06/2025 6:23 PM EDT 02/06/2025 7:04 PM EDT [facility] BLOOD ORDERABLES Final Resu lt Performing Organization Address [facility] Co de Phone Number [facility] [address] [place] [address] * Prothrombin time/INR (02/06/2025 6:23 PM EDT) Protime 10.4 9.0 - 12.0 seconds 02/06/2025 7:21 PM EDT [facility] INR 0.93 0.80 - 1.10 02/06/2025 7:21 PM EDT [facility] Comment: Recommended therapeutic ranges using International Normalized Ratio (INR) are: INR RANGE 2.0 - 3.0 Routine oral anticoagulant therapy 2.5 - 3.5 Oral anticoagulant therapy for patients with thromboembolic events on standard doses of Coumadin and those with mechanical heart valves. Blood Venipuncture / Unknown 02/06/2025 6:23 PM EDT 02/06/2025 7:04 PM EDT [facility] BLOOD ORDERABLES Final Resu lt Performing Organization Address [facility]/ZIP Co de Phone Number [facility] [address] [phone] * High Sensitivity Troponin I (02/06/2025 6:23 PM EDT) [facility] Troponin I High Sensitivity (pg/mL) 12.2 <=14 pg/mL 02/06/2025 7:29 PM EDT [facility] Blood Venipuncture / Unknown 02/06/2025 6:23 PM EDT 02/06/2025 7:04 PM EDT Narrative [facility] - 02/06/2025 7:29 PM EDT Applicable to [facility] only. Effective October 06 the lab will begin using a new chemistry analyzer. HsTroponin methodology, reference ranges and critical values have changed. [facility] BLOOD ORDERABLES Final Resu lt [facility] [address] [phone] * Magnesium (02/06/2025 6:23 PM EDT) [facility] Magnesium 1.9 1.6 - 2.6 mg/dL 02/06/2025 7:26 PM EDT [facility] Blood Venipuncture / Unknown 02/06/2025 6:23 PM EDT 02/06/2025 7:04 PM EDT [facility] LAB BLOOD ORDERABLES Final Resu lt [facility] [address] [phone] * (ABNORMAL) Comprehensive metabolic panel (02/06/2025 6:23 PM EDT) [facility] Sodium 137 136 - 145 meq/L 02/06/2025 7:26 PM EDT [facility] Potassium 5.1 3.4 - 5.1 meq/L 02/06/2025 7:26 PM EDT [facility] Chloride 93(L) 98 - 112 meq/L 02/06/2025 7:26 PM EDT [facility] CO2 36(H) 22 - 29 meq/L 02/06/2025 7:26 PM [facility] Calcium 11.6(H) 8.4 - 10.2 mg/dL 02/06/2025 7:26 PM [facility] Glucose 104 82 - 115 mg/dL 02/06/2025 7:26 PM [facility] BUN 13.4 9.8 - 20.1 mg/dL 02/06/2025 7:26 PM [facility] Creatinine 1.00 0.57 - 1.11 mg/dL 02/06/2025 7:26 PM [facility] BUN/Creatinine 13 8 - 20 02/06/2025 7:26 PM [facility] eGFR (mL/min/1.73m2) 61 >=60 mL/min/1. 73m2 02/06/2025 7:26 PM [facility] Albumin 2.9(L) 3.5 - 5.0 g/dL 02/06/2025 7:26 PM [facility] Alkaline Phosphatase 53 40 - 150 U/L 02/06/2025 7:26 PM [facility] ALT 8 <=34 U/L 02/06/2025 7:26 PM [facility] Comment: ALT2 reagent used for testing does not contain P5P supplementation and therefore may miss ALT elevations in patients with B6 deficiency. This population may be as high as 10% in the [place], with risk factors including malabsorption, drug interactions, and alcoholic hepatitis. AST 14 11 - 34 U/L 02/06/2025 7:26 PM [facility] Comment: AST2 reagent used for testing does not contain P5P supplementation and therefore may miss AST elevations in patients with B6 deficiency. This population may be as high as 10% in the [place], with risk factors including malabsorption, drug interactions, and alcoholic hepatitis. Total Bilirubin 0.2 0.2 - 1.2 mg/dL 02/06/2025 7:26 PM [facility] Protein, Total 6.5 6.4 - 8.3 g/dL 02/06/2025 7:26 PM [facility] Globulin 3.6 2.5 - 4.1 g/dL 02/06/2025 7:26 PM EDT [facility] Anion Gap 13(H) 4 - 12 02/06/2025 7:26 PM EDT [facility] A/G Ratio 0.8 0.7 - 1.9 02/06/2025 7:26 PM EDT [facility] Osmolality Calc 274.4 mOsm/kg 7:26 PM EDT [facility] Blood Venipuncture / Unknown 02/06/2025 6:23 PM EDT 02/06/2025 7:04 PM EDT us Laura Gibson DO LAB BLOOD ORDERABLES Final Resu lt Performing Organization Address City/[facility]/ZIP Co de Phone Number [facility] [address] [phone] * ECG 12 lead (02/06/2025 5:41 PM EDT) VENTRICULAR RATE EKG/MIN 67 BPM GE MUSE ATRIAL RATE (MCT) 69 BPM GE MUSE AL Interval 152 ms GE MUSE QRS-INTERVAL (MSEC) 80 ms GE MUSE QT Interval 386 ms GE MUSE QTC Interval 407 ms GE MUSE P [place] 57 degrees GE MUSE R AXIS (MCT) -71 degrees GE MUSE T Wave [place] 40 degrees GE MUSE [place] Diagnosis Age and gender specific ECG analysis Normal sinus rhythm Left axis deviation Abnormal ECG When compared with ECG of 06-OCT-2024 19:45, Significant changes have occurred Confirmed by Edvin ESPINOZA, Margret (2019) on 02/08/2025 5:26:45 PM GE MUSE 02/06/2025 5:41 PM EDT 02/08/2025 5:26 PM EDT us Laura Gibson DO ECG ORDERABLES Final Result Performing Organization Address [facility]/ZIP Co de Phone Number [employer] * EKG-SCANNED (02/06/2025) Narrative 02/06/2025 Ordered by [...] Nebulization 1821 (Given - Provider: Sharona Maradiaga, AV SPECIALIST) 0043 (Given - Provider: Jordyn Garcia, WAREHOUSE GUARD)0412 (Not Given - Provider: Jordyn Garcia WAREHOUSE GUARD - Reason: Patient/family refused)0740 (Given - Provider: Josee Lala, WAREHOUSE GUARD)1025 (Given - Provider: Laura Falcon, AV SPECIALIST)1530 (Given - Provider: Laura Falcon, AV SPECIALIST)1940 (Given - Provider: Pete Mcnulty)2309 (Given - [...] minutes. documented in this encounter Care Teams Supervisor [employer] Relationship Specialty Start Date End Date Jorje, Provider Not In The System, [place] [address] PCP - General 02/06/25 documented as of this encounter
[2025-02-28] VITALS (21 sets, daily range): BP systolic 121–182; BP diastolic 60–85; PULSE 82–105; RESP 18–32; TEMP 36.6–36.8; O2SAT 75–100; BMI 25.4; BMI 22.8
--- NOTE | 2025-02-28 14:43 | XR_ITS ---
PROCEDURE INFORMATION: Exam: XR Chest Exam date and time: 02/28/2025 2:55 PM Age: 69 years old Clinical indication: Dyspnea TECHNIQUE: Imaging protocol: Radiologic exam of the chest. Views: 1 view. COMPARISON: 1. CR XR CHEST PORTABLE 02/21/2025 4:25 PM 2. CTA CHEST 01/27/2025 FINDINGS: Tubes, catheters and devices: EKG leads. Lungs: Emphysematous lungs, with subtle bilateral patchy opacities similar to prior CT. Pleural spaces: Unremarkable. No pleural effusion. No pneumothorax. Heart/Mediastinum: Unremarkable. No cardiomegaly. Vasculature: Atherosclerosis. Bones/joints: Osteopenia. Lower thoracic/upper lumbar chronic compression fractures with associated vertebroplasty material. IMPRESSION: 1. Emphysematous lungs, with subtle bilateral patchy opacities similar to prior CT. 2. Atherosclerosis. 3. Osteopenia. Lower thoracic/upper lumbar chronic compression fractures with associated vertebroplasty material.
--- NOTE | 2025-02-28 14:47 | ECG_ITS ---
APPROVED REPORT Exam: Resting ECG HR:96 bpm ECG Measurements Heart Rate 96 AXES ND 140 P 56 QRSd 85 QRS 243 QT 303 T 42 QTc 357 Conclusion Normal sinus rhythm Normal intervals NO STEMI Electronically signed by : Vladislav Capellan, 02/28/2025 17:57:08
--- OUTSIDE RECORDS SUMMARY | 2025-02-28 14:50 | XMS_ITS | Encounter Summary ---
Author Organization [employer] ([place], [place], [place], [place]) Address [address] [place] [address] Care Team Providers Care Driver Material Handler Name Role Phone [facility], Provider Not In The [...] living situation today? I have a [facility] [place] place to live 02/07/2025 Think about the [...] Do you speak a language other than Kiswahili at [facility]? No 02/07/2025 Do you want help [...] on filedocumented in this encounter Care Teams Driver Material Handler Relationship Specialty Start Date End Date [facility], Provider Not In The System, [place] [address] PCP - General 02/06/25 documented as of this encounter
[2025-02-28 14:51] LABS: Lactate Venous 0.8 mmol/L (0.4-2.0); VBG HCO3 34.6 mmol/L (23-30); VBG PH 7.32 mmol/L (7.31-7.41); VBG PO2 26.6 mmol/L (28-40)
--- OUTSIDE RECORDS SUMMARY | 2025-02-28 14:51 | XMS_ITS | Clinical Summary ---
Author Organization [facility] Address [address] [place] [address] Phone Care Team Providers Care Chef Teacher Name Role Phone Unavailable Unavailable Conditions or Problems No information available. Medications No information available. Medications Administered No information available. Allergies, Adverse Reactions, Alerts No information available. Results No information available. Plan of Care No information available. Procedures No information available. Vital Signs No information available. Immunizations No information available. Advance Directives No information available.
--- OUTSIDE RECORDS SUMMARY | 2025-02-28 14:51 | XMS_ITS | Referral Summary ---
Author Organization [employer] ([place], [place], [place], [place]) Address [address] [place] [address] Care Team Providers Care Hot Pond Operator Name Role Phone [facility], Provider Not In The System MD Primary Care Provider Unavailable Encounters Date Type Department Care Team Description 02/06/2025 5:35 PM EDT - 02/09/2025 12:35 PM EDT Hospital Encounter [facility] Cardiac Telemetry [address] [place] [address] Laura Gibson DO Turley, David, [...] PM EDT [facility] Endoscopy [address] [place] [address] Marisa Garcia MD ESOPHAGOGASTRODUODENOSCOPY (EGD) [...] living situation today? I have a [facility] place to live 02/07/2025 Think about [...] Do you speak a language other than Ethiopian at [facility]? No 02/07/2025 Do you want [...] on file Medical Devices Implanted Type Area Cloth Winder Machine Operator Device Identifier Shelf Expiration Date Model / Serial / Lot Duraclip Sm 16mm [id number] - [id number] Implanted:Qty: 3 on 02/06/2025 by Marisa Garcia MD at [facility] N/A: Esophagus CONMED 04/28/2027 [id number] / / [id number] Procedures Procedure Name Priority Date/Time Associated Diagnosis [...] AND HEMATOCRIT STAT 02/06/2025 8:22 PM EDT [place] EGD TRANSORAL CONTROL BLEEDING ANY METHOD 02/06/2025 [...] resultswithin the time period is included. Pathologist [facility] Hemoglobin 8.2(L) 11.2 - 15.7 GM/DL 02/08/2025 3:55 PM EDT [facility] Hematocrit 25.3(L) 34.1 - 44.9 % 02/08/2025 3:55 PM EDT [facility] Blood Venipuncture / Unknown 02/08/2025 3:46 PM EDT 02/08/2025 3:50 PM EDT us Nara Goinssaúl SCIENTIFIC INFORMATICS ANALYST LAB BLOOD ORDERABLES Fi nal Result [facility] [address] [phone] * (ABNORMAL) CBC with automated diff (02/08/2025 4:41 AM EDT) Only the most recent of2 resultswithin the time period is included. [facility] WBC 7.7 4.0 - 10.0 K/ L 02/08/2025 6:12 AM EDT [facility] RBC 2.75(L) 3.93 - 5.22 M/ L 02/08/2025 6:12 AM EDT [facility] Hemoglobin 8.1(L) 11.2 - 15.7 GM/DL 02/08/2025 6:12 AM EDT [facility] Hematocrit 25.8(L) 34.1 - 44.9 % 02/08/2025 6:12 AM EDT [facility] MCV 94 79 - 95 fL 02/08/2025 6:12 AM EDT [facility] MCH 29.5 25.6 - 32.2 pg 02/08/2025 6:12 AM EDT [facility] MCHC 31.4(L) 32.2 - 35.5 GM/DL 02/08/2025 6:12 AM EDT [facility] RDW 14.2 11.7 - 14.4 % 02/08/2025 6:12 AM EDT [facility] Platelets 315 140 - 375 K/CU MM 02/08/2025 6:12 AM EDT [facility] MPV 9.0(L) 9.4 - 12.3 fL 02/08/2025 6:12 AM EDT [facility] NRBC Absolute <0.01 0 - 0.012 K/ul 02/08/2025 6:12 AM EDT [facility] Blood Venipuncture / Unknown 02/08/2025 4:41 AM EDT 02/08/2025 5:01 AM EDT Narrative [facility] - 02/08/2025 6:12 AM EDT When [...] Atypical Lymph flag noted us Nara Aguilar SCIENTIFIC INFORMATICS ANALYST LAB BLOOD ORDERABLES Fi nal Result Performing Organization Address City/State/[facility] Co de Phone Number [facility] [address] [phone] * (ABNORMAL) Manual Differential (02/08/2025 4:41 AM EDT) Total Counted 100 02/08/2025 9:00 AM EDT [facility] % Neutros (manual) 70(H) 50 - 65 % 02/08/2025 9:00 AM EDT [facility] % Bands (manual) 2 % 02/08/2025 9:00 AM EDT [facility] % Lymphs (manual) 23(L) 24 - 44 % 02/08/2025 9:00 AM EDT [facility] % Monos (manual) 1(L) 4 - 5 % 02/08/2025 9:00 AM EDT [facility] % Eos (manual) 4(H) 0 - 3 % 02/08/2025 9:00 AM EDT [facility] RBC Morphology abnormal(A) Normal 9:00 AM EDT [facility] Platelet Estimate Adequate Adequate 02/08/2025 9:00 AM EDT [facility] Hypochromia 1+ 02/08/2025 9:00 AM EDT [facility] Ovalocytes 1+ 02/08/2025 9:00 AM EDT [facility] ANC# 5.54 K/ L 02/08/2025 9:00 AM EDT [facility] Blood Venipuncture / Unknown 02/08/2025 4:41 AM EDT 02/08/2025 5:01 AM EDT Nara Lauren [facility] LAB BLOOD ORDERABLES Fi nal Result Performing Organization Address [place]/[facility] Co de Phone Number [facility] [address] [phone] * Magnesium (02/08/2025 4:41 AM EDT) Only the most recent of2 resultswithin the time period is included. Magnesium 1.6 1.6 - 2.6 mg/dL 02/08/2025 5:54 AM EDT [facility] Blood Venipuncture / Unknown 02/08/2025 4:41 AM EDT 02/08/2025 5:05 AM EDT Narairis Aguilar SCIENTIFIC INFORMATICS ANALYST LAB BLOOD ORDERABLES Fi nal Result Performing Organization Address City/[facility] Co de Phone Number [facility] [address] [phone] * (ABNORMAL) Comprehensive metabolic panel (02/08/2025 4:41 AM EDT) Only the most recent of2 resultswithin the time period is included. Sodium 135(L) 136 - 145 meq/L 02/08/2025 5:59 AM EDT [facility] Potassium 3.7 3.4 - 5.1 meq/L 02/08/2025 5:59 AM EDT [facility] Chloride 98 98 - 112 meq/L 02/08/2025 5:59 AM EDT [facility] CO2 29 22 - 29 meq/L 02/08/2025 5:59 AM [facility] Calcium 9.1 8.4 - 10.2 mg/dL 02/08/2025 5:59 AM [facility] Glucose 85 82 - 115 mg/dL 02/08/2025 5:59 AM [facility] BUN 8.3(L) 9.8 - 20.1 mg/dL 02/08/2025 5:59 AM [facility] Creatinine 0.77 0.57 - 1.11 mg/dL 02/08/2025 5:59 AM [facility] BUN/Creatinine 11 8 - 20 02/08/2025 5:59 AM [facility] eGFR (mL/min/1.73m2) 84 >=60 mL/min/1. 73m2 02/08/2025 5:59 AM [facility] Albumin 2.3(L) 3.5 - 5.0 g/dL 02/08/2025 5:59 AM [facility] Alkaline Phosphatase 38(L) 40 - 150 U/L 02/08/2025 5:59 AM [facility] ALT <7 <=34 U/L 02/08/2025 5:59 AM [facility] Comment: ALT2 reagent used for testing does not contain P5P supplementation and therefore may miss ALT elevations in patients with B6 deficiency. This population may be as high as 10% in the [place], with risk factors including malabsorption, drug interactions, and alcoholic hepatitis. AST 11 11 - 34 U/L 02/08/2025 5:59 AM [facility] Comment: AST2 reagent used for testing does not contain P5P supplementation and therefore may miss AST elevations in patients with B6 deficiency. This population may be as high as 10% in the [place], with risk factors including malabsorption, drug interactions, and alcoholic hepatitis. Total Bilirubin 0.2 0.2 - 1.2 mg/dL 02/08/2025 5:59 AM [facility] Protein, Total 5.0(L) 6.4 - 8.3 g/dL 02/08/2025 5:59 AM [facility] Globulin 2.7 2.5 - 4.1 g/dL 02/08/2025 5:59 AM EDT [facility] Anion Gap 12 4 - 12 02/08/2025 5:59 AM EDT [facility] A/G Ratio 0.9 0.7 - 1.9 02/08/2025 5:59 AM EDT [facility] Osmolality Calc 267.8 mOsm/kg 5:59 AM EDT [facility] Blood Venipuncture / Unknown 02/08/2025 4:41 AM EDT 02/08/2025 5:05 AM EDT Nara Aguilar SCIENTIFIC INFORMATICS ANALYST LAB BLOOD ORDERABLES Fi nal Result [facility] [address] [phone] * (ABNORMAL) CBC - Hemogram (SJ-BKR) (02/07/2025 5:18 AM EDT) WBC 11.6(H) 4.0 - 10.0 K/ L 02/07/2025 6:04 AM EDT [facility] RBC 3.14(L) 3.93 - 5.22 M/ L 02/07/2025 6:04 AM EDT [facility] Hemoglobin 9.1(L) 11.2 - 15.7 GM/DL 02/07/2025 6:04 AM EDT [facility] Hematocrit 30.4(L) 34.1 - 44.9 % 02/07/2025 6:04 AM EDT [facility] MCV 97(H) 79 - 95 fL 02/07/2025 6:04 AM EDT [facility] MCH 29.0 25.6 - 32.2 pg 02/07/2025 6:04 AM EDT [facility] MCHC 29.9(L) 32.2 - 35.5 GM/DL 02/07/2025 6:04 AM EDT [facility] RDW 14.5(H) 11.7 - 14.4 % 02/07/2025 6:04 AM EDT [facility] Platelets 340 140 - 375 K/CU MM 02/07/2025 6:04 AM EDT [facility] MPV 9.1(L) 9.4 - 12.3 fL 02/07/2025 6:04 AM EDT [facility] Blood Venipuncture / Unknown 02/07/2025 5:18 AM EDT 02/07/2025 5:58 AM EDT us Von Sloan PA-C LAB BLOOD ORDERABLES Final Res ult [facility] [address] [phone] * (ABNORMAL) Basic Metabolic Panel (02/07/2025 5:18 AM EDT) Sodium 136 136 - 145 meq/L 02/07/2025 6:20 AM EDT [facility] Potassium 4.9 3.4 - 5.1 meq/L 02/07/2025 6:20 AM EDT [facility] CO2 29 22 - 29 meq/L 02/07/2025 6:20 AM EDT [facility] Chloride 99 98 - 112 meq/L 02/07/2025 6:20 AM EDT [facility] Glucose 85 82 - 115 mg/dL 02/07/2025 6:20 AM EDT [facility] BUN 13.0 9.8 - 20.1 mg/dL 02/07/2025 6:20 AM EDT [facility] Creatinine 0.84 0.57 - 1.11 mg/dL 02/07/2025 6:20 AM EDT [facility] BUN/Creatinine 15 8 - 20 02/07/2025 6:20 AM EDT [facility] Calcium 10.0 8.4 - 10.2 mg/dL 02/07/2025 6:20 AM EDT [facility] Anion Gap 13(H) 4 - 12 02/07/2025 6:20 AM EDT [facility] eGFR (mL/min/1.73m2) 75 >=60 mL/min/1.7 3m2 02/07/2025 6:20 AM EDT [facility] Osmolality Calc 271.3 mOsm/kg 6:20 AM EDT [facility] Blood Venipuncture / Unknown 02/07/2025 5:18 AM EDT 02/07/2025 5:59 AM EDT us Von Sloan PA-C LAB BLOOD ORDERABLES Final Res ult [facility] [address] [phone] * CTA abdomen & pelvis (02/06/2025 7:19 [...] by Gareth Meza. Laura Gibson DO [facility] ORDERABLES Final Result * CTA chest [...] Gareth Meza. us Laura Gibson DO [facility] ORDERABLES Final Result * Type and Screen (02/06/2025 6:23 PM EDT) ABO/Rh O Positive 02/06/2025 6:05 PM EDT [facility] BLOOD [facility] ([place]) Antibody Screen Negative 02/06/2025 6:05 PM EDT [facility] ([place]) HISTCHK HIST CHECK PERFORMED 02/06/2025 6:05 PM EDT [facility] ([place]) Blood Venipuncture / Unknown 02/06/2025 6:23 PM EDT 02/06/2025 7:04 PM EDT us Laura Gibson DO [facility] BLOOD BANK TEST ORDERABLES Final Result [facility] ([place]) [address] [place] [address], [facility] [phone] * High Sensitivity Troponin I (02/06/2025 6:23 PM EDT) Troponin I High Sensitivity (pg/mL) 12.2 <=14 pg/mL 02/06/2025 7:29 PM EDT [facility] Blood Venipuncture / Unknown 02/06/2025 6:23 PM EDT 02/06/2025 7:04 PM EDT Narrative [facility] - 02/06/2025 7:29 PM EDT Applicable to [facility] only. Effective October 06 the lab will begin using a new chemistry analyzer. HsTroponin methodology, reference ranges and critical values have changed. [facility] BLOOD ORDERABLES Final Resu lt Performing Organization Address [facility]/ZIP Co de Phone Number [facility] [address] [phone] * (ABNORMAL) aPTT (02/06/2025 6:23 PM EDT) [facility] aPTT 32.8(H) 22.0 - 32.0 seconds 02/06/2025 7:21 PM EDT [facility] Blood Venipuncture / Unknown 02/06/2025 6:23 PM EDT 02/06/2025 7:04 PM EDT [facility] LAB BLOOD ORDERABLES Final Resu lt [facility] [address] [phone] * Prothrombin time/INR (02/06/2025 6:23 PM EDT) Pathologist [facility] Protime 10.4 9.0 - 12.0 seconds 02/06/2025 7:21 PM EDT [facility] INR 0.93 0.80 - 1.10 02/06/2025 7:21 PM EDT [facility] Comment: Recommended therapeutic ranges [...] ORDERABLES Final Resu lt Performing Organization Address City/[facility] Hospital/ZIP Co de Phone Number [facility] 1 [place], [place] [address] [phone] * ECG 12 lead (02/06/2025 5:41 PM EDT) VENTRICULAR RATE EKG/MIN 67 BPM GE MUSE ATRIAL RATE (MCT) 69 BPM GE MUSE AK Interval 152 ms GE MUSE QRS-INTERVAL (MSEC) 80 ms GE MUSE QT Interval 386 ms GE MUSE QTC Interval 407 ms GE MUSE P Volin 57 degrees GE MUSE R AXIS (MCT) -71 degrees GE MUSE T Wave Volin 40 degrees GE MUSE [place] Diagnosis Age and gender specific ECG analysis Normal sinus rhythm Left axis deviation Abnormal ECG When compared with ECG of 06-OCT-2024 19:45, Significant changes have occurred Confirmed by Edvin ESPINOZA, [facility] (2019) on 02/08/2025 5:26:45 PM GE MUSE 02/06/2025 5:41 PM EDT 02/08/2025 5:26 PM EDT Laura Gibson DO ECG ORDERABLES Final Result Performing Organization Address [facility] Co de Phone Number GE MUSE * EKG-SCANNED (02/06/2025) Narrative 02/06/2025 Ordered by an unspecified provider. Default Scanning Provider SCAN ORDERS Final Result from Last 3 Months Insurance [employer] MCR ADV Advance Directives For more information, please contact: [phone] * DNR - Limited Additional Intervention (Latest Code Status on File) Date Activated Date Inactivated Comments 02/06/2025 9:46 PM 02/09/2025 1:53 PM * Full Code Date Activated Date Inactivated Comments 10/06/2024 8:39 PM 10/09/2024 6:04 PM Care Teams Hot Pond Operator Relationship Specialty Start Date End Date Jorje, Provider Not In The System, [place] [address] PCP - General 02/06/25
--- OUTSIDE RECORDS SUMMARY | 2025-02-28 14:51 | XMS_ITS | Clinical Summary ---
Author Organization Healthcare Address [address] [place] [address] Care Team Providers Care Ground Transportation Operator Name Role Phone Rajat Navarro MD Primary Care Provider [phone] Social History Tobacco Use Types Packs/Day Years [...] 2005 UKY-Zoster Vaccines (1 of 2) 2005 [id number] Vaccine ( - 2023- season) 2024 05/24/2021, [...] this topic Insurance [employer] MEDICARE Care Teams Ground Transportation Operator Relationship Specialty Start Date End Date Rajat Navarro MD [address] [place] [address] #1 [address] [place] [address] PCP - General 07/15/20
--- OUTSIDE RECORDS SUMMARY | 2025-02-28 14:52 | XMS_ITS | Clinical Summary ---
Author Organization [employer] ([place], [place], [place], [place]) Address [address] [place] [address] Care Team Providers Care Liquor Gallery Operator Name Role Phone [facility], Provider Not In The System MD [...] EDT - 02/06/2025 7:39 PM EDT Surgery [facility] Endoscopy [address] [place] [id number] Marisa Garcia MD ESOPHAGOGASTRODUODENOSCOPY (EGD) 02/06/2025 5:35 PM EDT - 02/09/2025 12:35 PM EDT Hospital Encounter [facility] Cardiac Telemetry [address] [place] [id number] Laura Gibson DO Turley, David, MD Hughes, [...] Do you speak a language other than [place] at [facility]? No 02/07/2025 Do you want help [...] 2025 05/30/2023 Medical Devices Implanted Type Area Shuttle Preparation Supervisor Device Identifier Shelf Expiration Date Model / Serial / Lot Duraclip Sm 16mm [id number] - [id number] Implanted:Qty: 3 on 02/06/2025 by Marisa Garcia MD at [facility] N/A: Esophagus CONMED 04/28/2027 [id number] / / [id number] Procedures Procedure Name Priority Date/Time Associated Diagnosis [...] of3 resultswithin the time period is included. [facility] Hemoglobin 8.2(L) 11.2 - 15.7 GM/DL 02/08/2025 3:55 PM EDT [facility] Hematocrit 25.3(L) 34.1 - 44.9 % 02/08/2025 3:55 PM EDT [facility] Blood Venipuncture / Unknown 02/08/2025 3:46 PM EDT 02/08/2025 3:50 PM EDT us Nara Aguilar TRAILER CHIEF LAB BLOOD ORDERABLES Fi nal Result [facility] 1 [place], [place] [address] [phone] * (ABNORMAL) CBC with automated diff (02/08/2025 4:41 AM EDT) Only the most recent of2 resultswithin the time period is included. [facility] WBC 7.7 4.0 - 10.0 K/ L 02/08/2025 6:12 AM EDT [facility] RBC 2.75(L) 3.93 - 5.22 M/ L 02/08/2025 6:12 AM EDT [facility] Hemoglobin 8.1(L) 11.2 - 15.7 GM/DL 02/08/2025 6:12 AM EDT [facility] Hematocrit 25.8(L) 34.1 - 44.9 % 02/08/2025 6:12 AM EDT [facility] MCV 94 79 - 95 fL 02/08/2025 6:12 AM EDT [facility] MCH 29.5 25.6 - 32.2 pg 02/08/2025 6:12 AM EDT [facility] MCHC 31.4(L) 32.2 - 35.5 GM/DL 02/08/2025 6:12 AM EDT [facility] RDW 14.2 11.7 - 14.4 % 02/08/2025 6:12 AM EDT [facility] Platelets 315 140 - 375 K/CU MM 02/08/2025 6:12 AM EDT [facility] MPV 9.0(L) 9.4 - 12.3 fL 02/08/2025 6:12 AM EDT [facility] NRBC Absolute <0.01 0 - 0.012 K/ul 02/08/2025 6:12 AM EDT [facility] Blood Venipuncture / Unknown 02/08/2025 4:41 AM EDT 02/08/2025 5:01 AM EDT Narrative [facility] - 02/08/2025 6:12 AM EDT When [...] Atypical Lymph flag noted us Nara Aguilar TRAILER CHIEF LAB BLOOD ORDERABLES Fi nal Result [facility] [address] [phone] * (ABNORMAL) Manual Differential (02/08/2025 4:41 AM EDT) Total Counted 100 02/08/2025 9:00 AM EDT [facility] % Neutros (manual) 70(H) 50 - 65 % 02/08/2025 9:00 AM EDT [facility] % Bands (manual) 2 % 02/08/2025 9:00 AM EDT [facility] % Lymphs (manual) 23(L) 24 - 44 % 02/08/2025 9:00 AM EDT [facility] % Monos (manual) 1(L) 4 - 5 % 02/08/2025 9:00 AM EDT [facility] % Eos (manual) 4(H) 0 - 3 % 02/08/2025 9:00 AM EDT [facility] RBC Morphology abnormal(A) Normal 9:00 AM EDT [facility] Platelet Estimate Adequate Adequate 02/08/2025 9:00 AM EDT [facility] Hypochromia 1+ 02/08/2025 9:00 AM EDT [facility] Ovalocytes 1+ 02/08/2025 9:00 AM EDT [facility] ANC# 5.54 K/ L 02/08/2025 9:00 AM EDT [facility] Blood Venipuncture / Unknown 02/08/2025 4:41 AM EDT 02/08/2025 5:01 AM EDT us Nara Aguilar TRAILER CHIEF LAB BLOOD ORDERABLES Fi nal Result [facility] [address] [phone] * Magnesium (02/08/2025 4:41 AM EDT) Only the most recent of2 resultswithin the time period is included. Magnesium 1.6 1.6 - 2.6 mg/dL 02/08/2025 5:54 AM EDT [facility] Blood Venipuncture / Unknown 02/08/2025 4:41 AM EDT 02/08/2025 5:05 AM EDT us Nara Aguilar TRAILER CHIEF LAB BLOOD ORDERABLES Fi nal Result [facility] [address] [phone] * (ABNORMAL) Comprehensive metabolic panel (02/08/2025 4:41 AM EDT) Only the most recent of2 resultswithin the time period is included. Sodium 135(L) 136 - 145 meq/L 02/08/2025 5:59 AM EDT [facility] Potassium 3.7 3.4 - 5.1 meq/L 02/08/2025 5:59 AM EDT [facility] Chloride 98 98 - 112 meq/L 02/08/2025 5:59 AM EDT [facility] CO2 29 22 - 29 meq/L 02/08/2025 5:59 AM EDT [facility] Calcium 9.1 8.4 - 10.2 mg/dL 02/08/2025 5:59 AM EDT [facility] Glucose 85 82 - 115 mg/dL 02/08/2025 5:59 AM EDT [facility] BUN 8.3(L) 9.8 - 20.1 mg/dL 02/08/2025 5:59 AM EDT [facility] Creatinine 0.77 0.57 - 1.11 mg/dL 02/08/2025 5:59 AM EDT [facility] BUN/Creatinine 11 8 - 20 02/08/2025 5:59 AM EDT [facility] eGFR (mL/min/1.73m2) 84 >=60 mL/min/1. 73m2 02/08/2025 5:59 AM EDT [facility] Albumin 2.3(L) 3.5 - 5.0 g/dL 02/08/2025 5:59 AM EDT [facility] Alkaline Phosphatase 38(L) 40 - 150 U/L 02/08/2025 5:59 AM EDT [facility] ALT <7 <=34 U/L 02/08/2025 5:59 AM EDT [facility] Comment: ALT2 reagent used for testing does not contain P5P supplementation and therefore may miss ALT elevations in patients with B6 deficiency. This population may be as high as 10% in the [place], with risk factors including malabsorption, drug interactions, and alcoholic hepatitis. AST 11 11 - 34 U/L 02/08/2025 5:59 AM EDT [facility] Comment: AST2 reagent used for testing does not contain P5P supplementation and therefore may miss AST elevations in patients with B6 deficiency. This population may be as high as 10% in the [place], with risk factors including malabsorption, drug interactions, and alcoholic hepatitis. Total Bilirubin 0.2 0.2 - 1.2 mg/dL 02/08/2025 5:59 AM EDT [facility] Protein, Total 5.0(L) 6.4 - 8.3 g/dL 02/08/2025 5:59 AM EDT [facility] Globulin 2.7 2.5 - 4.1 g/dL 02/08/2025 5:59 AM EDT [facility] Anion Gap 12 4 - 12 02/08/2025 5:59 AM EDT [facility] A/G Ratio 0.9 0.7 - 1.9 02/08/2025 5:59 AM EDT [facility] Osmolality Calc 267.8 mOsm/kg 5:59 AM EDT [facility] Blood Venipuncture / Unknown 02/08/2025 4:41 AM EDT 02/08/2025 5:05 AM EDT us Nara Aguilar APRN LAB BLOOD ORDERABLES Fi nal Result [facility] [address] [phone] * (ABNORMAL) CBC - Hemogram (SJ-BKR) (02/07/2025 5:18 AM EDT) WBC 11.6(H) 4.0 - 10.0 K/ L 02/07/2025 6:04 AM EDT [facility] RBC 3.14(L) 3.93 - 5.22 M/ L 02/07/2025 6:04 AM EDT [facility] Hemoglobin 9.1(L) 11.2 - 15.7 GM/DL 02/07/2025 6:04 AM EDT [facility] Hematocrit 30.4(L) 34.1 - 44.9 % 02/07/2025 6:04 AM EDT [facility] MCV 97(H) 79 - 95 fL 02/07/2025 6:04 AM EDT [facility] MCH 29.0 25.6 - 32.2 pg 02/07/2025 6:04 AM EDT [facility] MCHC 29.9(L) 32.2 - 35.5 GM/DL 02/07/2025 6:04 AM EDT [facility] RDW 14.5(H) 11.7 - 14.4 % 02/07/2025 6:04 AM EDT [facility] Platelets 340 140 - 375 K/CU MM 02/07/2025 6:04 AM EDT [facility] MPV 9.1(L) 9.4 - 12.3 fL 02/07/2025 6:04 AM EDT [facility] Blood Venipuncture / Unknown 02/07/2025 5:18 AM EDT 02/07/2025 5:58 AM EDT us Von Sloan PA-C LAB BLOOD ORDERABLES Final Res ult [facility] [address] [place] [id number] [phone] * (ABNORMAL) Basic Metabolic Panel (02/07/2025 5:18 AM EDT) Sodium 136 136 - 145 meq/L 02/07/2025 6:20 AM EDT [facility] Potassium 4.9 3.4 - 5.1 meq/L 02/07/2025 6:20 AM EDT [facility] CO2 29 22 - 29 meq/L 02/07/2025 6:20 AM EDT [facility] Chloride 99 98 - 112 meq/L 02/07/2025 6:20 AM EDT [facility] Glucose 85 82 - 115 mg/dL 02/07/2025 6:20 AM EDT [facility] BUN 13.0 9.8 - 20.1 mg/dL 02/07/2025 6:20 AM EDT [facility] Creatinine 0.84 0.57 - 1.11 mg/dL 02/07/2025 6:20 AM EDT [facility] BUN/Creatinine 15 8 - 20 02/07/2025 6:20 AM EDT [facility] Calcium 10.0 8.4 - 10.2 mg/dL 02/07/2025 6:20 AM EDT [facility] Anion Gap 13(H) 4 - 12 02/07/2025 6:20 AM EDT [facility] eGFR (mL/min/1.73m2) 75 >=60 mL/min/1.7 3m2 02/07/2025 6:20 AM EDT [facility] Osmolality Calc 271.3 mOsm/kg 6:20 AM EDT [facility] Blood Venipuncture / Unknown 02/07/2025 5:18 AM EDT 02/07/2025 5:59 AM EDT us Von Sloan PA-C LAB BLOOD ORDERABLES Final Res ult [facility] [address] [phone] * CTA abdomen & pelvis (02/06/2025 7:19 [...] Transcribed by Gareth Meza. Laura Gibson DO [facility] [place] [facility] ORDERABLES Final Result * CTA chest [...] [facility] ([place] Antibody Screen Negative 02/06/2025 6:05 PM EDT [facility] ([place]) HISTCHK HIST CHECK PERFORMED 02/06/2025 6:05 PM EDT [facility] ([place]) Blood Venipuncture / Unknown 02/06/2025 6:23 PM EDT 02/06/2025 7:04 PM EDT Laura Gibson DO [facility] BLOOD [facility] TEST ORDERABLES Final Result Performing Organization Address [facility]/ZIP Co de Phone Number [facility] ([place]) [address] [phone] * High Sensitivity Troponin I (02/06/2025 6:23 PM EDT) Troponin I High Sensitivity (pg/mL) 12.2 <=14 pg/mL 02/06/2025 7:29 PM EDT [facility] Blood Venipuncture / Unknown 02/06/2025 6:23 PM EDT 02/06/2025 7:04 PM EDT Narrative [facility] - 02/06/2025 7:29 PM EDT Applicable to [facility] Lab only. Effective October 06 the lab will begin using a new chemistry analyzer. HsTroponin methodology, reference ranges and critical values have changed. Laura Gibson DO LAB BLOOD ORDERABLES Final Resu lt [facility] [address] [place] [address], [facility] [phone] * (ABNORMAL) aPTT (02/06/2025 6:23 PM EDT) [facility] aPTT 32.8(H) 22.0 - 32.0 seconds 02/06/2025 7:21 PM EDT [facility] Blood Venipuncture / Unknown 02/06/2025 6:23 PM EDT 02/06/2025 7:04 PM EDT [facility] LAB BLOOD ORDERABLES Final Resu lt [facility] [address] [phone] * Prothrombin time/INR (02/06/2025 6:23 PM EDT) [facility] Protime 10.4 9.0 - 12.0 seconds 02/06/2025 7:21 PM EDT [facility] INR 0.93 0.80 - 1.10 02/06/2025 7:21 PM EDT [facility] Comment: Recommended therapeutic ranges using International Normalized Ratio (INR) are: INR RANGE 2.0 - 3.0 Routine oral anticoagulant therapy 2.5 - 3.5 Oral anticoagulant therapy for patients with thromboembolic events on standard doses of Coumadin and those with mechanical heart valves. Blood Venipuncture / Unknown 02/06/2025 6:23 PM EDT 02/06/2025 7:04 PM EDT [facility] LAB BLOOD ORDERABLES Final Resu lt [facility] [address] [phone] * ECG 12 lead (02/06/2025 5:41 PM EDT) [facility] VENTRICULAR RATE EKG/MIN 67 BPM GE MUSE ATRIAL RATE (MCT) 69 BPM GE MUSE MN Interval 152 ms GE MUSE QRS-INTERVAL (MSEC) 80 ms GE MUSE QT Interval 386 ms GE MUSE QTC Interval 407 ms GE MUSE P [place] 57 degrees GE MUSE R AXIS (MCT) -71 degrees GE MUSE T Wave [place] 40 degrees GE MUSE [place] Diagnosis Age and gender specific ECG analysis [...] Advance Directives For more information, please contact: [phone] * DNR - Limited Additional Intervention (Latest Code Status on File) Date Activated Date Inactivated Comments 02/06/2025 9:46 PM 02/09/2025 1:53 PM * Full Code Date Activated Date Inactivated Comments 10/06/2024 8:39 PM 10/09/2024 6:04 PM 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
[2025-02-28] MEDS: IPRATROPIUM/ALBUTEROL 3 ML NEB 9 ML IH (14:55)
[2025-02-28 15:00] LABS: Hematocrit 35.0 % (37.0-47.0); Hemoglobin 10.6 g/dL (12.2-16.2); Immature Granulocytes % 0.6 %; Mean Corpuscular HGB Conc 30.3 g/dL (31.8-35.4); Mean Corpuscular Hemoglobin 29.1 pg (27.0-31.2); Mean Corpuscular Volume 96.2 fl (81-99); Nucleated Red Blood Cells % 0 %; Platelet Count 342 K/mm3 (142-424); Red Blood Count 3.64 M/mm3 (4.20-5.40); Red Cell Distribution Width-SD 49.3 fL; VBG PCO2 68.0 mmol/L (35-51); White Blood Count 10.9 K/mm3 (4.8-10.8)
[2025-02-28 15:03] LABS: Albumin Level 4.2 g/dl (3.5-5.0); Chloride 89 mmol/L (98-107); Potassium 4.7 mmoL/L (3.5-5.1); Sodium 135 mmol/L (136-145)
[2025-02-28 15:05] LABS: Blood Urea Nitrogen 12 mg/dl (7-17); Creatinine Clearance Estimated 49 mL/min (50-200); Creatinine,Serum 0.70 mg/dl (0.52-1.04); Estimated Glomerular Filt Rate 83 ml/min (>60); GFR (African American) 100 ML/MIN (>60)
[2025-02-28 15:06] LABS: Alanine Aminotransferase 9 U/L (12-78); Albumin/Globulin Ratio 1.3 (1.1-1.8); Alkaline Phosphatase 85 U/L (38-126); Aspartate Amino Transferase 23 U/L (14-36); Bilirubin,Total 0.2 mg/dl (0.2-1.3); Calcium 10.6 mg/dl (8.4-10.2); Globulin 3.3 g/dL (1.3-3.2); Glucose 119 mg/dl (74-100); Total Protein,Serum 7.5 g/dl (6.3-8.2)
[2025-02-28] MEDS: LEVOFLOXACIN/D5W 750 MG/150 ML 750 MG/150 ML PIGGYBACK 100 MG IV (15:12)
--- NOTE | 2025-02-28 15:12 | [facility].EDCP ---
Discharge Plan Disposition Chief Complaint: Shortness of Breath/Dyspnea Prescriptions Prescriptions: No Action montelukast 10 mg tablet 10 mg PO PM gabapentin 800 mg tablet 800 mg PO TID albuterol sulfate 90 mcg/actuation HFA aerosol inhaler 2 inh INHALATION Q6HP PRN (Reason: Shortness Of Breath) potassium chloride 20 mEq tablet,ER particles/crystals 20 meq PO BID metoprolol succinate 100 mg Tablet Extended Release 24 Hr 100 mg PO HS 30 Days Qty: 30 0RF digoxin 125 mcg (0.125 mg) tablet 125 mcg PO DAILY Qty: 30 0RF tiotropium bromide [Spiriva with HandiHaler] 18 mcg Capsule, W/Inhalation Device 1 cap inhalation DAILY Qty: 30 0RF losartan 100 mg tablet 100 mg PO DAILY Patient Comments: TAKE 1 TABLET BY MOUTH ONCE A DAY fluticasone propion-salmeterol [Advair Diskus] 500-50 mcg/dose blister with device 1 inh inhalation BID Eliquis 5 mg Tablet 5 mg PO BID amlodipine 5 mg Tablet 5 mg PO DAILY 30 Days Qty: 30 0RF aspirin 81 mg Tablet,Delayed Release (Dr/Ec) 81 mg PO DAILY 30 Days Qty: 30 0RF doxycycline hyclate 100 mg Tablet 100 mg PO BID 5 Days Qty: 10 0RF alprazolam 1 mg tablet 1 mg PO BID PRN (Reason: anxiety) 30 Days Qty: 0 0RF celecoxib 50 mg capsule 50 mg PO DAILY PRN (Reason: pain) 30 Days Qty: 0 0RF prednisone 20 mg tablet 60 mg PO DAILY 5 Days Qty: 15 0RF albuterol sulfate 2.5 mg /3 mL (0.083 %) solution for nebulization 2.5 mg inhalation Q6H PRN (Reason: bronchospasm) Qty: 75 0RF Referrals Follow up/Referrals: Provider,Referral, MD [Primary Care Provider, Medical] - See instructions Print Language Print Language: Guatemalan Discharge ED Provider: Amparo Woods [facility] General Chief Complaint: Shortness of Breath/Dyspnea Stated Complaint: SOA Time Seen by Provider: 02/28/25 14:44 Mode of Arrival: EMS Source of Information: EMS Description of Symptoms (Recalled from ER Triage Doc. by RN): ems states patients daughter called out for shortness of breath and lower abdominal pain since yesterday. patient uses oxygen 2L NC daily. they report on arrival she was 52% they gave a duoneb and 125mg of solumedrol iv and started patient on CPAP she became 95%. patient has BLE pitting edema, abdomen is distended. respiratory at bedside, placed on BIPAP 18/8, 30% O2, Rate 22 History of Present Illness HPI narrative: This is a 69-year-old female patient, with past medical history of tobacco abuse, COPD on 2 L at baseline, hypertension, and hyperlipidemia, who is presenting to the emergency department today for evaluation of dyspnea. Patient arrives by EMS after they were called to the scene by her daughter for hypoxia. The patient's daughter reportedly arrived to the residence and found the patient to be disoriented and blue. When EMS arrived on the scene they found the patient to also be cyanotic in appearance. They stated that her oxygen was connected to approximately 10 feet of tubing and they questioned whether there was adequate oxygen flow through this tubing. Regardless, they found the patient to be profoundly wheezing and administered 1 DuoNeb as well as 125 mg of Solu-Medrol. They placed her on CPAP and brought her here for further evaluation. Related Data Home Medications ?Medication ?Instructions ?Recorded ?Confirmed albuterol sulfate 90 mcg/actuation 2 inh inhalation Q6HP PRN 04/15/24 01/28/25 aerosol inhaler Shortness Of Breath gabapentin 800 mg tablet 800 mg PO TID 04/15/24 01/28/25 Held on 01/30/25. Instructions: Resume on 02/13/25. You did not need this medication during hospitalization. Please consider discontinuing as it can cause weakness, unless you have neuropathy. If you do have neuropathy, start at 400 mg daily and follow-up with your PCP. montelukast 10 mg tablet 10 mg PO PM 04/15/24 01/28/25 potassium chloride 20 mEq 20 meq PO BID 04/15/24 01/28/25 tablet,extended release(part/cryst) apixaban 5 mg tablet (Eliquis) 5 mg PO BID 01/28/25 01/28/25 fluticasone 500 mcg-salmeterol 50 1 inh inhalation BID 01/28/25 01/28/25 mcg/dose blistr powdr for inhalation (Advair Diskus) losartan 100 mg tablet 100 mg PO DAILY 01/28/25 01/28/25 Previous Rx's ?Medication ?Instructions ?Recorded digoxin 125 mcg (0.125 mg) tablet 125 mcg PO DAILY #30 tabs 12/01/24 metoprolol succinate 100 mg 100 mg PO HS 30 days #30 tabs 12/01/24 tablet,extended release 24 hr tiotropium bromide 18 mcg capsule 1 cap inhalation DAILY #30 blisters 12/18/24 with inhalation device (Spiriva with HandiHaler) alprazolam 1 mg tablet 1 mg PO BID PRN anxiety 30 days #0 01/30/25 tabs amlodipine 5 mg tablet 5 mg PO DAILY 30 days #30 tabs 01/30/25 aspirin 81 mg tablet,delayed 81 mg PO DAILY 30 days #30 tabs 01/30/25 release celecoxib 50 mg capsule 50 mg PO DAILY PRN pain 30 days #0 01/30/25 caps doxycycline hyclate 100 mg tablet 100 mg PO BID 5 days #10 tabs 01/30/25 albuterol sulfate 2.5 mg/3 mL 2.5 mg (3 mL) inhalation Q6H PRN 02/21/25 (0.083 %) solution for nebulization bronchospasm #75 mL prednisone 20 mg tablet 60 mg (3 x 20 mg) PO DAILY 5 days 02/21/25 #15 tabs Allergies Allergy/AdvReac Type Severity Reaction Status Date / Time No Known Allergies Allergy Verified 11/17/24 15:18 [facility] Disclaimer: The information contained in this section may have been updated after the patient was seen, as this information can be updated by other users. Medical History (Updated 02/25/25 @ 00:00 by Sherif Oleary) HTN (hypertension) HLD (hyperlipidemia) Pneumonia Fecal occult blood test positive Sepsis without septic shock Lymphedema Physical deconditioning General weakness Lung mass Hypomagnesemia Acute hypokalemia Chronic hyponatremia Generalized weakness COPD mixed type Lung nodule Hypokalemia Elevated troponin Nocturnal hypoxemia Pulmonary emphysema Incidental pulmonary nodule, greater than or equal to 8mm Smoking greater than 30 pack years Dyspnea on exertion Tobacco abuse disorder Tobacco abuse counseling Cervical cancer Surgical History History of dilation and curettage History of back surgery Family History Diabetes Social History (Updated 01/27/25 @ 16:54 by Verenice Carroll RN) Smoking Status: Current every day smoker tobacco type: cigarettes packs per day: 2 second hand exposure: Yes alcohol intake: never substance use type: denies use current occupational status: unemployed Travel in the last 8 weeks?: None household members: spouse housing: house current occupational exposures/hazards: No Have you lived/traveled outside [place] in past 30 days?: No Contact w/someone who lives/traveled outside [place] past 30 days?: No Exposure to someone with infectious disease in past 14 days?: No Do you have a fever (greater than 100.4 F or 38 C)?: No Have you tested positive for COVID-19?: No Exposed to someone with COVID-19 in past 14 days?: No Do you have a sore throat?: No Do you have a cough?: No Do you have any weakness?: No Do you have any diarrhea?: No Are you experiencing any unusual bleeding?: No Do you have any muscle aches/pain?: No Do you have any abdominal pain?: No Are you experiencing loss of taste or smell?: No Other Medical History Have you received the Flu Vaccine for this season: No Have you received the Pneumonia Vaccine: No ROS Obtained: Yes Systems reviewed as appropriate & no additional complaints except as documented Physical Exam General General appearance: other (See MDM) Respiratory Respiratory exam: Present other (See MDM) Cardiovascular Cardiovascular exam: Present other (See MDM) Neurological Exam Neurological exam: Present other (See MDM) HEART Score HEART Score HEART Score assessment performed?: Yes History (anamnesis): Slightly suspicious ECG: Normal Age: >65 years Risk factors: 3 or more risk factors Troponin: </= normal limit HEART Score: 4 Critical Care Critical Care Time Critical Care Time: Yes Attestation: On 02/28/25, the high probability of a clinically significant, sudden or life threatening deterioration of the following system(s) required my full and direct attention, intervention and personal management. The time I documented below is in addition to time spent performing reported procedures but includes the following listed in this critical care notation. Total Time Total Critical Care Time: 60 Medical Decision Making Medical Records Medical records reviewed: Yes I reviewed the patient's medical records. Azael Inquiry Pt receiving controlled substance: No Azael was queried for this patient: No Vital Signs Vital Signs: 02/28/25 14:45 02/28/25 14:57 02/28/25 15:00 Temperature 97.9 F Temperature Source Oral Pulse Rate 91 H Pulse Rate [Right Radial] 96 H Respiratory Rate 26 H 24 Blood Pressure 148/74 H Blood Pressure [Right Arm] 182/85 H Blood Pressure Mean [Right Arm] 117 Blood Pressure Source [Right Arm] Automatic Cuff Blood Pressure Position [Right Arm] Supine 02 Sat by Pulse Oximetry 99 100 Oxygen Delivery Method BiPAP Fraction of Inspired Oxygen 30 02/28/25 15:30 02/28/25 16:00 Temperature Temperature Source Pulse Rate 88 Pulse Rate [Right Radial] Respiratory Rate 31 H 32 H Blood Pressure 121/60 155/76 H Blood Pressure [Right Arm] Blood Pressure Mean [Right Arm] Blood Pressure Source [Right Arm] Blood Pressure Position [Right Arm] 02 Sat by Pulse Oximetry 99 Oxygen Delivery Method Fraction of Inspired Oxygen Lab Data Labs: Lab Results 02/28/25 14:45: WBC 10.9 H, RBC 3.64 L, Hgb 10.6 L, Hct 35.0 L, MCV 96.2, MCH 29.1, MCHC 30.3 L, RDW 13.8, Plt Count 342, MPV 8.8, Neut % (Auto) 64.7, Lymph % (Auto) 25.1, Rusk % (Auto) 7.9, Eos % (Auto) 1.1, Baso % (Auto) 0.6, Neut # (Auto) 7.0, Lymph # (Auto) 2.7, Rusk # (Auto) 0.9, Eos # (Auto) 0.1, Baso # (Auto) 0.1, VBG pH 7.32, VBG pCO2 68.0 H, VBG pO2 26.6 L, VBG HCO3 34.6 H, VBG Total CO2 36.7 H, VBG O2 Saturation 48.3 L, VBG Base Excess 8.5 H, VBG Lactic Acid 0.8, Sodium 135 L, Potassium 4.7, Chloride 89 L, Carbon Dioxide 43 H*, Anion Gap 7.7, BUN 12, Creatinine 0.70, Estimated Creat Clear 49, Estimated GFR 83, Est GFR ( Amer) 100, Glucose 119 H, Calcium 10.6 H, Total Bilirubin 0.2, AST 23, ALT 9 L, Alkaline Phosphatase 85, Troponin I < 0.01, Total Protein 7.5, Albumin 4.2, Globulin 3.3 H, Albumin/Globulin Ratio 1.3 02/28/25 14:45 02/28/25 14:45 Response Orders (Tests/Meds): ED MEDICATIONS Generic Name Dose Route Start Last Admin Trade Name Freq PRN Reason Stop Dose Admin Levofloxacin/Dextrose 750 mg in 150 mls @ 100 mls/hr 02/28/25 14:58 02/28/25 15:12 Levofloxacin 750mg/150ml Premix IV 02/28/25 16:27 100 mls/hr ONCE ONE Administration Discontinued Medications Generic Name Dose Route Start Last Admin Trade Name Freq PRN Reason Stop Dose Admin Albuterol/Ipratropium 9 ml 02/28/25 14:44 02/28/25 14:55 Ipratropium/Albuterol 3 Ml Neb IH 02/28/25 14:45 9 ml ONCE ONE Administration ORDERS Category Date Time Status CTA Chest [CT angio chest PE protocol] Stat Cat Scan 02/28/25 16:09 Ordered CXR --portable [XR chest portable] Stat Exams 02/28/25 14:43 Taken POCUS Point of Care (ER Only) Stat Exams 02/28/25 14:45 Ordered CBC w/Auto Diff [Complete Blood Count Auto Diff] Stat Lab 02/28/25 14:45 Completed CMP [Comprehensive Metabolic Panel] Stat Lab 02/28/25 14:45 Completed Mini Respiratory Panel Stat Lab 02/28/25 15:57 Received Troponin I Q3H Lab 02/28/25 17:45 Ordered Troponin I Q3H Lab 02/28/25 20:45 Ordered Troponin I Stat Lab 02/28/25 14:45 Completed Blood Culture Stat Micro 02/28/25 14:45 Received VBG [Venous Blood Gas] Stat RT 02/28/25 14:45 Completed Venous Blood Gas Stat RT 02/28/25 16:09 Ordered ECG Data Tracing #1: Attestation: I reviewed this ECG and interpreted as documented below: ECG Narrative: EKG personally interpreted by me demonstrates normal sinus rhythm with a rate of 96 bpm, no TN prolongation, narrow QRS, no QTc prolongation. No ST elevation or depression. No overt signs of ischemia. MDM Narrative Medical Decision Narrative: In summary, this is a 69-year-old female patient who presented for profound hypoxia and cyanosis with wheezing requiring CPAP by EMS en route to the hospital. Prior to arrival she did receive 125 mg of Solu-Medrol as well as a DuoNeb. Comorbidities include hypertension, hyperlipidemia, recurrent pneumonia, and COPD on 2 L at baseline as well as tobacco abuse. This certainly increases the patient risk morbidity. On initial evaluation of the patient she appeared lethargic and was profoundly wheezing. Her oxygen saturation was 92% on CPAP. She had adequate distal perfusion. She does have bilateral lower extremity edema. Heart sounds are normal. She has no abdominal tenderness on exam. After my initial evaluation, we did have respiratory the bedside and transition the patient over to BiPAP. During this time I was able to assess the patient's mental status and she was remarkably coherent. Differential diagnosis to include ACS/UT, COPD exacerbation, pneumonia, hypercapnic respiratory failure, among others. Initial workup included hematologic labs including blood cultures. We also obtained a chest x-ray. Initial interventions included 3 DuoNebs. At this point I did perform chart review on the patient, and found that during her last admission she was evaluated by pulmonology who felt that she would be best treated with Levaquin given prior sputum cultures that were positive for Pseudomonas. Given her drastic presentation, I did decide to empirically treat her with Levaquin based on these prior recommendations The patient does flagged for sepsis in our system. I did not follow the sepsis bolusing order set, as the patient is profoundly edematous on exam and she does have basilar B-lines in her lungs on POCUS assessment. Consistent with pulmonary edema. Therefore I felt that bolusing the patient with 30 cc/kg of fluid would cause her detriment. Labs were interpreted by me and demonstrated a leukocytosis of 10.9. The patient's VBG was significant for a relative acidosis of 7.32 with a pCO2 of 68. She does demonstrate chronic compensation with a bicarbonate of 34.6. Otherwise, her initial troponin is less than 0.01 and she has no significant electrolyte derangements other than relative hypochloremia. We did keep the patient on BiPAP for 1 hour, and she remained clinically stable. I had an interactive discussion with the internal medicine service who agreed to evaluate the patient in the emergency department. After our discussion of their evaluation they have agreed to admit the patient to their service and accept primary responsibility of the patient moving forward.
[2025-02-28 15:18] LABS: Anion Gap 7.7 mEq/L (5-15); Carbon Dioxide 43 mmol/L (22.0-30.0); Troponin I < 0.01 ng/ml (0.00-0.034)
--- NOTE | 2025-02-28 16:00 | PC.NURSE ---
respiratory took patient off bipap per provider order, patient placed on 2L NC and only tolerated for 20 mins desated to 73% BIPAP reapplied respiratory notified as well
[2025-02-28 16:09] LABS: Coronavirus 19, PCR Not Detected (NotDetected); Influenza A, PCR Not Detected (NotDetected); Influenza B, PCR Not Detected (NotDetected)
--- NOTE | 2025-02-28 16:09 | CT_ITS ---
PROCEDURE INFORMATION: Exam: CTA Chest With Contrast Exam date and time: 02/28/2025 4:24 PM Age: 69 years old Clinical indication: Other: Found down, cyanotic, hypoxia TECHNIQUE: Imaging protocol: Computed tomographic angiography of the chest with contrast. Exam focused on the arteries. 3D rendering (Not supervised by radiologist): MIP and/or 3D reconstructed images were created by the technologist. Radiation optimization: All CT scans at this facility use at least one of these dose optimization techniques: automated exposure control; mA and/or kV adjustment per patient size (includes targeted exams where dose is matched to clinical indication); or iterative reconstruction. Contrast material: ISO 370; Contrast volume: 70 ml; Contrast route: INTRAVENOUS (IV); COMPARISON: CT ANGIO CHEST PE PROTOCOL 01/27/2025 1:53 PM FINDINGS: Pulmonary arteries: No pulmonary embolism. Great vessels off aortic arch: Supra-aortic great vessel atherosclerosis. Aorta: Aortic atherosclerosis. Lungs: Relatively unchanged spiculated opacities in the bilateral lungs, similar to prior CTA. Mild-moderate centrilobular emphysema. Pleural spaces: Unremarkable. No pneumothorax. No pleural effusion. Heart: Mild cardiomegaly. Coronary arteries: Coronary artery atherosclerosis. Esophagus: Nonspecific clips or other small metallic foci associated with the mid esophagus. Lymph nodes: Unremarkable. No enlarged lymph nodes. Diaphragm: Small to moderate hiatal hernia. Liver: Calcified liver granulomata. Spleen: Calcified splenic granulomata. Kidneys: Nonspecific stranding around the kidneys. Bilateral simple appearing kidney cysts with the largest measuring 2.4 cm. Bones/joints: Osteopenia. Old thoracolumbar compression fractures with vertebroplasty changes. Soft tissues: Unremarkable. IMPRESSION: 1. No pulmonary embolism. 2. Relatively unchanged spiculated opacities in the bilateral lungs, similar to prior CTA. Neoplastic and/or inflammatory. 3. Mild-moderate centrilobular emphysema. 4. Nonspecific clips or other small metallic foci associated with the mid esophagus. 5. Atherosclerosis, including the coronary arteries. 6. Mild cardiomegaly. 7. Small to moderate hiatal hernia. 8. Evidence of prior granulomatous disease. 9. Nonspecific stranding around the kidneys, which can be seen with medical renal disease. 10. Additional chronic/nonemergent findings as detailed above. COMMENTS: 1. Consistent with the [employer]'s Incidental Findings Committee white paper (J Am Janice Radiol 2018): Any incidental renal lesion less than 1 cm or classified as too small to characterize, or any incidental cystic renal lesion characterized as simple-appearing, is likely benign. No follow-up imaging is recommended for these lesions per consensus recommendations based on imaging criteria. 2. The presence of pulmonary emphysema on CT is an independent risk factor for lung cancer. In the absence of a history or active diagnosis of lung cancer, it is recommended that this patient with emphysema be evaluated for enrollment in a low dose CT lung cancer screening program.
--- NOTE | 2025-02-28 16:09 | PC.NURSE ---
CALLED RESPIRATORY PER MD REQUEST
[2025-02-28] MEDS: SODIUM CHLORIDE 0.9% 10ML SYR (RAD ONLY) 10 ML IV (16:24)
[2025-02-28] MEDS: 0.9 % SODIUM CHLORIDE 50 ML VIAL IV (16:24)
[2025-02-28] MEDS: IOPAMIDOL-370 (76%);100ML BOTTLE 70 ML IV (16:24)
[2025-02-28 16:39] LABS: Lactate Venous 0.9 mmol/L (0.4-2.0); VBG HCO3 34.2 mmol/L (23-30); VBG PH 7.32 mmol/L (7.31-7.41); VBG PO2 41.8 mmol/L (28-40)
[2025-02-28 16:41] LABS: VBG PCO2 68.2 mmol/L (35-51)
--- NOTE | 2025-02-28 16:48 | PC.NURSE ---
HS notified of the need for a bed for admission
--- NOTE | 2025-02-28 18:35 | PC.NURSE ---
patient tranfer from ER to ICU via bed with ER staff @[phone]
[2025-02-28 18:59] LABS: Troponin I < 0.01 ng/ml (0.00-0.034)
--- NOTE | 2025-02-28 21:18 | EXP.HP ---
History of Present Illness *Admission Date: 02/28/25 *Reason for visit:: Shortness of breath *History of present illness: Iqra Balbuena is a 69-year-old female with a medical history significant for advanced COPD on 2 L baseline, suspected lung cancer not wanting workup, current tobacco smoker, HFpEF presents with shortness of breath. Patient states she has been feeling short of breath over the past 3 days but today was the worst, so decided to call EMS. They noted significant airway tightness, started CPAP. On arrival, patient was transitioned to BiPAP after VBG showed chronic worsening hypercapnia, but compensated. Initial VBG pH 7.32, [id number]. CBC, CMP unremarkable for acute findings other than calcium 10.6. EMS gave Solu-Medrol 125 mg en route. Attempt was made to transition patient off BiPAP in the ED, but she desaturated to 74% on room air. CXR, CTA chest did not show acute findings. Given these findings, ED provider discussed case with me and I decided to admit patient for acute COPD exacerbation with acute on chronic hypoxia. [facility] Disclaimer: The information contained in this section may have been updated after the patient was seen, as this information can be updated by other users. Medical History HTN (hypertension) HLD (hyperlipidemia) Pneumonia Fecal occult blood test positive Sepsis without septic shock Lymphedema Physical deconditioning General weakness Lung mass Hypomagnesemia Acute hypokalemia Chronic hyponatremia Generalized weakness COPD mixed type Lung nodule Hypokalemia Elevated troponin Nocturnal hypoxemia Pulmonary emphysema Incidental pulmonary nodule, greater than or equal to 8mm Smoking greater than 30 pack years Dyspnea on exertion Tobacco abuse disorder Tobacco abuse counseling Cervical cancer Surgical History History of dilation and curettage History of back surgery Family History Other Diabetes Social History Smoking Status: Current every day smoker tobacco type: cigarettes packs per day: 2 second hand exposure: Yes alcohol intake: never substance use type: denies use current occupational status: unemployed Travel in the last 8 weeks?: None household members: spouse housing: house current occupational exposures/hazards: No Other Medical History Have you received the Flu Vaccine for this season: Yes Have you received the Pneumonia Vaccine: Yes Meds Home Medications and Allergies Home Medications ?Medication ?Instructions ?Recorded ?Confirmed ?Type albuterol sulfate 90 mcg/actuation 2 inh inhalation Q6HP PRN 04/15/24 03/03/25 History aerosol inhaler Shortness Of Breath montelukast 10 mg tablet 10 mg PO PM 04/15/24 03/03/25 History digoxin 125 mcg (0.125 mg) tablet 125 mcg PO DAILY #30 tabs 12/01/24 03/03/25 Rx metoprolol succinate 100 mg 100 mg PO HS 30 days #30 tabs 12/01/24 03/03/25 Rx tablet,extended release 24 hr apixaban 5 mg tablet (Eliquis) 5 mg PO BID 01/28/25 03/03/25 History losartan 100 mg tablet 100 mg PO DAILY 01/28/25 03/03/25 History alprazolam 1 mg tablet 1 mg PO BIDP PRN anxiety 03/01/25 03/03/25 History azithromycin 250 mg tablet 250 mg PO DAILY 3 days #3 tabs 03/01/25 03/03/25 Rx fluticasone fur. 100 mcg-umeclid 1 inh inhalation DAILY #60 ea 03/01/25 03/03/25 Rx 62.5 mcg-vilant 25 mcg inhalat.powder (Trelegy Ellipta) furosemide 40 mg tablet (Lasix) 40 mg PO DAILY #30 tabs 03/01/25 03/03/25 Rx gabapentin 800 mg tablet 800 mg PO TID 03/01/25 03/03/25 History spironolactone 25 mg tablet 25 mg PO DAILY 30 days #30 tabs 03/01/25 03/03/25 Rx ciclopirox 0.77 % topical cream 1 applic topical BID fungal nails 03/03/25 03/03/25 Rx 6 months #90 grams doxycycline hyclate 100 mg tablet mg PO DAILY 03/03/25 03/03/25 History levofloxacin 750 mg tablet mg PO DAILY 03/03/25 03/03/25 History mupirocin 2 % topical ointment 1 applic topical BID infection 14 03/03/25 03/03/25 Rx days #22 grams prednisone 50 mg tablet mg PO Q OTHER DAY 03/03/25 03/03/25 History New Prescriptions to Start Prescriptions: azithromycin Janesmarc,Sulaiman [id number] [Trelegy Ellipta] Filomena,Sulaiman furosemide [Lasix] Pidraven,Sulaiman spironolactone Janesmarc,Sulaiman Allergies Allergy/AdvReac Type Severity Reaction Status Date / Time No Known Allergies Allergy Verified 03/03/25 15:33 Exam Data for Last 24 hours Vital signs and Labs for Last 24 Hours: Temp Pulse Resp BP Pulse Ox O2 Del Method O2 Flow Rate 97.9 F 88 18 149/75 H 98 Nasal Cannula 2 02/28/25 20:00 02/28/25 20:00 02/28/25 20:00 02/28/25 20:00 02/28/25 20:00 02/28/25 21:00 02/28/25 21:00 FiO2 28 02/28/25 19:00 Laboratory Results - last 24 hr 02/28/25 14:45: WBC 10.9 H, RBC 3.64 L, Hgb 10.6 L, Hct 35.0 L, MCV 96.2, MCH 29.1, MCHC 30.3 L, RDW 13.8, Plt Count 342, MPV 8.8, Neut % (Auto) 64.7, Lymph % (Auto) 25.1, [place] % (Auto) 7.9, Eos % (Auto) 1.1, Baso % (Auto) 0.6, Neut # (Auto) 7.0, Lymph # (Auto) 2.7, [place] # (Auto) 0.9, Eos # (Auto) 0.1, Baso # (Auto) 0.1, VBG pH 7.32, VBG pCO2 68.0 H, VBG pO2 26.6 L, VBG HCO3 34.6 H, VBG Total CO2 36.7 H, VBG O2 Saturation 48.3 L, VBG Base Excess 8.5 H, VBG Lactic Acid 0.8, Sodium 135 L, Potassium 4.7, Chloride 89 L, Carbon Dioxide 43 H*, Anion Gap 7.7, BUN 12, Creatinine 0.70, Estimated Creat Clear 49, Estimated GFR 83, Est GFR ( Amer) 100, Glucose 119 H, Calcium 10.6 H, Total Bilirubin 0.2, AST 23, ALT 9 L, Alkaline Phosphatase 85, Troponin I < 0.01, Total Protein 7.5, Albumin 4.2, Globulin 3.3 H, Albumin/Globulin Ratio 1.3 02/28/25 15:57: SARS-CoV-2 (PCR) Not detected, Influenza Type A (PCR) Not detected, Influenza Type B (PCR) Not detected, RSV (PCR) Not detected, Rhinovirus (PCR) Not detected 02/28/25 16:09: VBG pH 7.32, VBG pCO2 68.2 H, VBG pO2 41.8 H, VBG HCO3 34.2 H, VBG Total CO2 36.3 H, VBG O2 Saturation 72.7 H, VBG Base Excess 8.1 H, VBG Lactic Acid 0.9 02/28/25 18:15: Troponin I < 0.01 I & O for Last 24 hours: Intake & Output 02/25/25 02/26/25 02/27/25 02/28/25 23:59 23:59 23:59 23:59 Weight 56.727 kg Constitutional Constitutional: no acute distress and chronically ill appearing *Routine HEENT Exam Head: Present normocephalic Eye: Present EOMI and PERRL ENT: Present mucous membranes moist *Routine Neck Exam Neck: Present supple; Absent lymphadenopathy *Routine Respiratory Exam Respiratory: Present wheezes; Absent CTA bilaterally *Routine Cardiovascular Exam Cardiovascular: Present RRR *Routine Abdominal Exam Abdominal: Present soft and normoactive bowel sounds; Absent tenderness *Routine Rectal Exam Rectal:: deferred *Routine Genitalia Exam Genitalia:: deferred *Routine Extremities Exam Extremities: Present edema; Absent cyanosis or clubbing *Routine Skin Exam Skin: Present warm; Absent rash *Routine Neurological Exam Neurological: Present alert and oriented X3 Assessment and Plan *Assessment and plan (1) COPD (chronic obstructive pulmonary disease): Status: Acute Category: Medical Code(s): J44.9 - Chronic obstructive pulmonary disease, unspecified (2) Acute exacerbation of chronic obstructive pulmonary disease: Status: Acute Category: Medical Code(s): J44.1 - Chronic obstructive pulmonary disease with (acute) exacerbation (3) Hypercapnic respiratory failure: Status: Acute Category: Medical Code(s): J96.92 - Respiratory failure, unspecified with hypercapnia Plan Iqra Balbuena is a 69-year-old female with a medical history significant for advanced COPD on 2 L baseline, suspected lung cancer not wanting workup, current tobacco smoker, HFpEF presents with shortness of breath. Patient states she has been feeling short of breath over the past 3 days but today was the worst, so decided to call EMS. They noted significant airway tightness, started CPAP. On arrival, patient was transitioned to BiPAP after VBG showed chronic worsening hypercapnia, but compensated. Initial VBG pH 7.32, [id number]. CBC, CMP unremarkable for acute findings other than calcium 10.6. EMS gave Solu-Medrol 125 mg en route. Attempt was made to transition patient off BiPAP in the ED, but she desaturated to 74% on room air. CXR, CTA chest did not show acute findings. Given these findings, ED provider discussed case with me and I decided to admit patient for acute COPD exacerbation with acute on chronic hypoxia. #Acute on chronic hypoxic respiratory failure #Acute COPD exacerbation ? Presented with shortness of breath, restrictive airway necessitating BiPAP initially. ? Transitioned off BiPAP back to 2 L nasal cannula with appropriate saturations. ? Continues to have residual airway. ? Started DuoNebs every 4 hours, Pulmicort twice daily. ? Started prednisone 40 mg daily. ? Start azithromycin 250 mg daily ? Follow-up morning VBG. #HFpEF exacerbation ? Worsening bilateral lower extremity pitting edema, BNP 545. ? IV Lasix 40 mg daily. ? ECHO January 2025 shows normal biventricular systolic function. #Hypertension ? Hold home BP for now, BP stable. #History of pulmonary emboli ? Continue home Eliquis. #COPD ? Stable currently on 2 L. Continue home Trelegy. #A-fib ? Continue home metoprolol succinate 100 mg, digoxin 125 mcg, Eliquis 5 mg twice daily. Previous admission: Extensively discussed with patient and son, daughter at bedside regarding patient's clinical and physical decline over the past year in the setting of evolving lung malignancy, end-stage COPD. Patient has had multiple hospitalizations over the past few months with COPD exacerbation, physical deconditioning, and others all likely related to end-stage COPD and underlying lung malignancy which patient does not want further evaluation management. Patient and family therefore interested in hospice, and hospice was consulted. Ultimately, children did not want to start hospice as there goals did not align with hospice care. They would like to continue aggressive management of end-stage COPD, and symptoms related to physical deconditioning/malignancy. Therefore we will defer hospice at this time.
[2025-02-28 21:44] LABS: Troponin I < 0.01 ng/ml (0.00-0.034)
[2025-02-28] MEDS: FUROSEMIDE 40MG/4ML VIAL 40 MG IV (21:54)
[2025-02-28] MEDS: IPRATROPIUM/ALBUTEROL 3 ML NEB IH (22:09)
[2025-02-28] MEDS: BUDESONIDE 0.5MG/2ML NEB 0.5 MG IH (22:09)
[2025-03-01] VITALS (20 sets, daily range): BP systolic 142–172; BP diastolic 65–82; PULSE 82–105; RESP 16–30; TEMP 36.6–36.8; O2SAT 90–96; BMI 22.4
[2025-03-01] MEDS: IPRATROPIUM/ALBUTEROL 3 ML NEB IH ×4 (03:03→13:05)
[2025-03-01 05:51] LABS: Lactate Venous 1.2 mmol/L (0.4-2.0); VBG HCO3 38.8 mmol/L (23-30); VBG PCO2 48.7 mmol/L (35-51); VBG PH 7.52 mmol/L (7.31-7.41); VBG PO2 98.6 mmol/L (28-40)
[2025-03-01] MEDS: BUDESONIDE 0.5MG/2ML NEB 0.5 MG IH (06:06)
[2025-03-01 06:08] LABS: Hematocrit 30.9 % (37.0-47.0); Hemoglobin 9.8 g/dL (12.2-16.2); Immature Granulocytes % 0.3 %; Mean Corpuscular HGB Conc 31.7 g/dL (31.8-35.4); Mean Corpuscular Hemoglobin 29.2 pg (27.0-31.2); Mean Corpuscular Volume 92.0 fl (81-99); Nucleated Red Blood Cells % 0 %; Platelet Count 310 K/mm3 (142-424); Red Blood Count 3.36 M/mm3 (4.20-5.40); Red Cell Distribution Width-SD 45.9 fL; White Blood Count 6.0 K/mm3 (4.8-10.8)
[2025-03-01 06:18] LABS: Albumin Level 3.8 g/dl (3.5-5.0); Chloride 88 mmol/L (98-107); Potassium 3.9 mmoL/L (3.5-5.1); Sodium 133 mmol/L (136-145)
[2025-03-01 06:20] LABS: Blood Urea Nitrogen 15 mg/dl (7-17); Creatinine Clearance Estimated 46 mL/min (50-200); Creatinine,Serum 0.70 mg/dl (0.52-1.04); Estimated Glomerular Filt Rate 83 ml/min (>60); GFR (African American) 100 ML/MIN (>60)
[2025-03-01 06:21] LABS: Alanine Aminotransferase 9 U/L (12-78); Albumin/Globulin Ratio 1.4 (1.1-1.8); Alkaline Phosphatase 60 U/L (38-126); Anion Gap 9.9 mEq/L (5-15); Aspartate Amino Transferase 20 U/L (14-36); Bilirubin,Total 0.2 mg/dl (0.2-1.3); Calcium 9.7 mg/dl (8.4-10.2); Carbon Dioxide 39 mmol/L (22.0-30.0); Globulin 2.8 g/dL (1.3-3.2); Glucose 143 mg/dl (74-100); Magnesium 1.5 mg/dl (1.6-2.3); Total Protein,Serum 6.6 g/dl (6.3-8.2)
--- NOTE | 2025-03-01 07:58 | HMH.PHAINT1 ---
Pharmacy Intervention Comments: MEDICATION RECONCILIATION COMPLETED ON PATIENT USING EXTERNAL FILL HISTORY FROM PHARMACY AND DISCHARGE SUMMARY FROM PREVIOUS ADMISSION. -ERICA ALCAZAR, DESTINYD
[2025-03-01] MEDS: FUROSEMIDE 40MG/4ML VIAL 40 MG IV (08:01)
[2025-03-01] MEDS: AZITHROMYCIN 250MG TABLET 250 MG PO (08:01)
[2025-03-01] MEDS: MAGNESIUM SULFATE IN WATER 2 GM/50 ML PIGGYBACK IV ×2 (08:04→09:05)
--- NOTE | 2025-03-01 08:19 | EXP.DC.SUM ---
General Admission date:: 02/28/25 HPI HPI HPI: Iqra Balbuena is a 69-year-old female with a medical history significant for advanced COPD on 2 L baseline, suspected lung cancer not wanting workup, current tobacco smoker, HFpEF presents with shortness of breath. Patient states she has been feeling short of breath over the past 3 days but today was the worst, so decided to call EMS. They noted significant airway tightness, started CPAP. On arrival, patient was transitioned to BiPAP after VBG showed chronic worsening hypercapnia, but compensated. Initial VBG pH 7.32, [id number]. CBC, CMP unremarkable for acute findings other than calcium 10.6. EMS gave Solu-Medrol 125 mg en route. Attempt was made to transition patient off BiPAP in the ED, but she desaturated to 74% on room air. CXR, CTA chest did not show acute findings. Given these findings, ED provider discussed case with me and I decided to admit patient for acute COPD exacerbation with acute on chronic hypoxia. Hospital Course Hospital Course Hospital Course: Iqra Balbuena is a 69-year-old female with a medical history significant for advanced COPD on 2 L baseline, suspected lung cancer not wanting workup, current tobacco smoker, HFpEF presents with shortness of breath. Patient states she has been feeling short of breath over the past 3 days but today was the worst, so decided to call EMS. They noted significant airway tightness, started CPAP. On arrival, patient was transitioned to BiPAP after VBG showed chronic worsening hypercapnia, but compensated. Initial VBG pH 7.32, [id number]. CBC, CMP unremarkable for acute findings other than calcium 10.6. EMS gave Solu-Medrol 125 mg en route. Attempt was made to transition patient off BiPAP in the ED, but she desaturated to 74% on room air. CXR, CTA chest did not show acute findings. Given these findings, ED provider discussed case with me and I decided to admit patient for acute COPD exacerbation with acute on chronic hypoxia. #Acute on chronic hypoxic respiratory failure #Acute COPD exacerbation ? Presented with shortness of breath, restrictive airway necessitating BiPAP initially. ? Transitioned off BiPAP back to 2 L nasal cannula with appropriate saturations. - Has not been using Advair and Spiriva, has Trelegy at home but also not using. Counseled on the importance of being adherent, as it is leading to recurrent admissions. Patient states she was not aware, and agreeable to start using Trelegy daily. - Discharged with Trelegy 100, prednisone, azithromycin. #HFpEF exacerbation #Hypertension ? Worsening bilateral lower extremity pitting edema, BNP 545. Likely also side effect of amlodipine, discontinued. - Improved with Lasix, continue Lasix 40mg and started spironolactone 25mg after discontinuing amlodpine. - Continue home losartan 100mg. #History of pulmonary emboli ? Continue home Eliquis. #COPD ? Stable currently on 2 L. Continue home Trelegy. #A-fib ? Continue home metoprolol succinate 100 mg, digoxin 125 mcg, Eliquis 5 mg twice daily. From previous admission: Extensively discussed with patient and son, daughter at bedside regarding patient's clinical and physical decline over the past year in the setting of evolving lung malignancy, end-stage COPD. Patient has had multiple hospitalizations over the past few months with COPD exacerbation, physical deconditioning, and others all likely related to end-stage COPD and underlying lung malignancy which patient does not want further evaluation management. Patient and family therefore interested in hospice, and hospice was consulted. Ultimately, children did not want to start hospice as there goals did not align with hospice care. They would like to continue aggressive management of end-stage COPD, and symptoms related to physical deconditioning/malignancy. Therefore we will defer hospice at this time. Exam Data for Last 24 hours Vital signs and Labs for Last 24 Hours: Temp Pulse Resp BP Pulse Ox O2 Del Method O2 Flow Rate 98.3 F 85 22 172/72 H 93 L Nasal Cannula 2 03/01/25 08:00 03/01/25 08:00 03/01/25 08:00 03/01/25 08:00 03/01/25 08:00 03/01/25 08:00 03/01/25 08:00 FiO2 28 02/28/25 19:00 Laboratory Results - last 24 hr 02/28/25 14:45: WBC 10.9 H, RBC 3.64 L, Hgb 10.6 L, Hct 35.0 L, MCV 96.2, MCH 29.1, MCHC 30.3 L, RDW 13.8, Plt Count 342, MPV 8.8, Neut % (Auto) 64.7, Lymph % (Auto) 25.1, Hand % (Auto) 7.9, Eos % (Auto) 1.1, Baso % (Auto) 0.6, Neut # (Auto) 7.0, Lymph # (Auto) 2.7, Hand # (Auto) 0.9, Eos # (Auto) 0.1, Baso # (Auto) 0.1, VBG pH 7.32, VBG pCO2 68.0 H, VBG pO2 26.6 L, VBG HCO3 34.6 H, VBG Total CO2 36.7 H, VBG O2 Saturation 48.3 L, VBG Base Excess 8.5 H, VBG Lactic Acid 0.8, Sodium 135 L, Potassium 4.7, Chloride 89 L, Carbon Dioxide 43 H*, Anion Gap 7.7, BUN 12, Creatinine 0.70, Estimated Creat Clear 49, Estimated GFR 83, Est GFR ( Amer) 100, Glucose 119 H, Calcium 10.6 H, Total Bilirubin 0.2, AST 23, ALT 9 L, Alkaline Phosphatase 85, Troponin I < 0.01, Total Protein 7.5, Albumin 4.2, Globulin 3.3 H, Albumin/Globulin Ratio 1.3 02/28/25 15:57: SARS-CoV-2 (PCR) Not detected, Influenza Type A (PCR) Not detected, Influenza Type B (PCR) Not detected, RSV (PCR) Not detected, Rhinovirus (PCR) Not detected 02/28/25 16:09: VBG pH 7.32, VBG pCO2 68.2 H, VBG pO2 41.8 H, VBG HCO3 34.2 H, VBG Total CO2 36.3 H, VBG O2 Saturation 72.7 H, VBG Base Excess 8.1 H, VBG Lactic Acid 0.9 02/28/25 18:15: Troponin I < 0.01 02/28/25 20:51: Troponin I < 0.01 03/01/25 05:43: WBC 6.0 D, RBC 3.36 L, Hgb 9.8 L, Hct 30.9 L, MCV 92.0, MCH 29.2, MCHC 31.7 L, RDW 13.5, Plt Count 310, MPV 8.9, Neut % (Auto) 79.4, Lymph % (Auto) 16.8, Hand % (Auto) 3.2, Eos % (Auto) 0.0 L, Baso % (Auto) 0.3, Neut # (Auto) 4.7, Lymph # (Auto) 1.0, Hand # (Auto) 0.2, Eos # (Auto) 0.0, Baso # (Auto) 0.0, Sodium 133 L, Potassium 3.9, Chloride 88 L, Carbon Dioxide 39 H, Anion Gap 9.9, BUN 15, Creatinine 0.70, Estimated Creat Clear 46, Estimated GFR 83, Est GFR ( Amer) 100, Glucose 143 H D, Calcium 9.7, Magnesium 1.5 L, Total Bilirubin 0.2, AST 20, ALT 9 L, Alkaline Phosphatase 60, Total Protein 6.6, Albumin 3.8, Globulin 2.8, Albumin/Globulin Ratio 1.4 03/01/25 06:00: VBG pH 7.52 H, VBG pCO2 48.7, VBG pO2 98.6 H, VBG HCO3 38.8 H, VBG Total CO2 40.3 H, VBG O2 Saturation 97.9 H, VBG Base Excess 15.9 H, VBG Lactic Acid 1.2 I & O for Last 24 hours: Intake & Output 02/26/25 02/27/25 02/28/25 03/01/25 23:59 23:59 23:59 23:59 Intake Total 120 / 120 Output Total 300 / 300 800 / 800 Balance -300 / -180 -680 / -680 Weight 56.727 kg 55.202 kg Constitutional Constitutional: no acute distress and chronically ill appearing *Routine HEENT Exam Head: Present normocephalic Eye: Present EOMI and PERRL ENT: Present mucous membranes moist *Routine Neck Exam Neck: Present supple; Absent lymphadenopathy *Routine Respiratory Exam Respiratory: Present wheezes; Absent CTA bilaterally *Routine Cardiovascular Exam Cardiovascular: Present RRR *Routine Abdominal Exam Abdominal: Present soft and normoactive bowel sounds; Absent tenderness *Routine Extremities Exam Extremities: Absent cyanosis, clubbing or edema *Routine Skin Exam Skin: Present warm; Absent rash *Routine Neurological Exam Neurological: Present alert and oriented X3 Results Data Completed and Pending Labs on day of discharge: Labs from last 24 hours 03/01/25 03/01/25 02/28/25 06:00 05:43 20:51 WBC 6.0 D RBC 3.36 L Hgb 9.8 L Hct 30.9 L MCV 92.0 MCH 29.2 MCHC 31.7 L RDW 13.5 Plt Count 310 MPV 8.9 Neut % (Auto) 79.4 Lymph % (Auto) 16.8 Hand % (Auto) 3.2 Eos % (Auto) 0.0 L Baso % (Auto) 0.3 Neut # (Auto) 4.7 Lymph # (Auto) 1.0 Hand # (Auto) 0.2 Eos # (Auto) 0.0 Baso # (Auto) 0.0 VBG pH 7.52 H VBG pCO2 48.7 VBG pO2 98.6 H VBG HCO3 38.8 H VBG Total CO2 40.3 H VBG O2 Saturation 97.9 H VBG Base Excess 15.9 H VBG Lactic Acid 1.2 Sodium 133 L Potassium 3.9 Chloride 88 L Carbon Dioxide 39 H Anion Gap 9.9 BUN 15 Creatinine 0.70 Estimated Creat Clear 46 Estimated GFR 83 Est GFR ( Amer) 100 Glucose 143 H D Calcium 9.7 Magnesium 1.5 L Total Bilirubin 0.2 AST 20 ALT 9 L Alkaline Phosphatase 60 Troponin I < 0.01 Total Protein 6.6 Albumin 3.8 Globulin 2.8 Albumin/Globulin Ratio 1.4 SARS-CoV-2 (PCR) Influenza Type A (PCR) Influenza Type B (PCR) RSV (PCR) Rhinovirus (PCR) 02/28/25 02/28/25 02/28/25 18:15 16:09 15:57 WBC RBC Hgb Hct MCV MCH MCHC RDW Plt Count MPV Neut % (Auto) Lymph % (Auto) Hand % (Auto) Eos % (Auto) Baso % (Auto) Neut # (Auto) Lymph # (Auto) Hand # (Auto) Eos # (Auto) Baso # (Auto) VBG pH 7.32 VBG pCO2 68.2 H VBG pO2 41.8 H VBG HCO3 34.2 H VBG Total CO2 36.3 H VBG O2 Saturation 72.7 H VBG Base Excess 8.1 H VBG Lactic Acid 0.9 Sodium Potassium Chloride Carbon Dioxide Anion Gap BUN Creatinine Estimated Creat Clear Estimated GFR Est GFR ( Amer) Glucose Calcium Magnesium Total Bilirubin AST ALT Alkaline Phosphatase Troponin I < 0.01 Total Protein Albumin Globulin Albumin/Globulin Ratio SARS-CoV-2 (PCR) Not detected Influenza Type A (PCR) Not detected Influenza Type B (PCR) Not detected RSV (PCR) Not detected Rhinovirus (PCR) Not detected 02/28/25 14:45 WBC 10.9 H RBC 3.64 L Hgb 10.6 L Hct 35.0 L MCV 96.2 MCH 29.1 MCHC 30.3 L RDW 13.8 Plt Count 342 MPV 8.8 Neut % (Auto) 64.7 Lymph % (Auto) 25.1 Hand % (Auto) 7.9 Eos % (Auto) 1.1 Baso % (Auto) 0.6 Neut # (Auto) 7.0 Lymph # (Auto) 2.7 Hand # (Auto) 0.9 Eos # (Auto) 0.1 Baso # (Auto) 0.1 VBG pH 7.32 VBG pCO2 68.0 H VBG pO2 26.6 L VBG HCO3 34.6 H VBG Total CO2 36.7 H VBG O2 Saturation 48.3 L VBG Base Excess 8.5 H VBG Lactic Acid 0.8 Sodium 135 L Potassium 4.7 Chloride 89 L Carbon Dioxide 43 H* Anion Gap 7.7 BUN 12 Creatinine 0.70 Estimated Creat Clear 49 Estimated GFR 83 Est GFR ( Amer) 100 Glucose 119 H Calcium 10.6 H Magnesium Total Bilirubin 0.2 AST 23 ALT 9 L Alkaline Phosphatase 85 Troponin I < 0.01 Total Protein 7.5 Albumin 4.2 Globulin 3.3 H Albumin/Globulin Ratio 1.3 SARS-CoV-2 (PCR) Influenza Type A (PCR) Influenza Type B (PCR) RSV (PCR) Rhinovirus (PCR) Meds Home Medications and Allergies Home Medications ?Medication ?Instructions ?Recorded ?Confirmed ?Type albuterol sulfate 90 mcg/actuation 2 inh inhalation Q6HP PRN 04/15/24 03/03/25 History aerosol inhaler Shortness Of Breath montelukast 10 mg tablet 10 mg PO PM 04/15/24 03/03/25 History digoxin 125 mcg (0.125 mg) tablet 125 mcg PO DAILY #30 tabs 12/01/24 03/03/25 Rx metoprolol succinate 100 mg 100 mg PO HS 30 days #30 tabs 12/01/24 03/03/25 Rx tablet,extended release 24 hr apixaban 5 mg tablet (Eliquis) 5 mg PO BID 01/28/25 03/03/25 History losartan 100 mg tablet 100 mg PO DAILY 01/28/25 03/03/25 History alprazolam 1 mg tablet 1 mg PO BIDP PRN anxiety 03/01/25 03/03/25 History azithromycin 250 mg tablet 250 mg PO DAILY 3 days #3 tabs 03/01/25 03/03/25 Rx fluticasone fur. 100 mcg-umeclid 1 inh inhalation DAILY #60 ea 03/01/25 03/03/25 Rx 62.5 mcg-vilant 25 mcg inhalat.powder (Trelegy Ellipta) furosemide 40 mg tablet (Lasix) 40 mg PO DAILY #30 tabs 03/01/25 03/03/25 Rx gabapentin 800 mg tablet 800 mg PO TID 03/01/25 03/03/25 History spironolactone 25 mg tablet 25 mg PO DAILY 30 days #30 tabs 03/01/25 03/03/25 Rx ciclopirox 0.77 % topical cream 1 applic topical BID fungal nails 03/03/25 03/03/25 Rx 6 months #90 grams doxycycline hyclate 100 mg tablet mg PO DAILY 03/03/25 03/03/25 History levofloxacin 750 mg tablet mg PO DAILY 03/03/25 03/03/25 History mupirocin 2 % topical ointment 1 applic topical BID infection 14 03/03/25 03/03/25 Rx days #22 grams prednisone 50 mg tablet mg PO Q OTHER DAY 03/03/25 03/03/25 History New Prescriptions to Start Prescriptions: Sulaiman Payan [id number] [Trelegy Ellipta] Sulaiman Butt furosemide [Lasix] Sulaiman Butt spironolactone Sulaiman Butt Allergies Allergy/AdvReac Type Severity Reaction Status Date / Time No Known Allergies Allergy Verified 03/03/25 15:33 Discharge Plan Disposition Patient Disposition: Home, Self-Care Condition: Fair Follow up Plan Follow up with: Stephanie Espinoza APRN [Referring, Medical] - 03/08/25 10:00 am Srini Gan MD [Physician, Pulmonology] - 03/23/25 1:00 pm Prescriptions/Medication Reconciliation: New azithromycin 250 mg Tablet 250 mg PO DAILY 3 Days Qty: 3 0RF furosemide [Lasix] 40 mg tablet 40 mg PO DAILY Qty: 30 3RF spironolactone 25 mg tablet 25 mg PO DAILY 30 Days Qty: 30 0RF Trelegy Ellipta 100-62.5-25 mcg blister with device 1 inh inhalation DAILY Qty: 60 0RF Continued gabapentin 800 mg tablet 800 mg PO TID Patient Comments: TAKE 1 TABLET BY MOUTH 3 TIMES A DAY alprazolam 1 mg tablet 1 mg PO BIDP PRN (Reason: anxiety) montelukast 10 mg tablet 10 mg PO PM albuterol sulfate 90 mcg/actuation HFA aerosol inhaler 2 inh INHALATION Q6HP PRN (Reason: Shortness Of Breath) metoprolol succinate 100 mg Tablet Extended Release 24 Hr 100 mg PO HS 30 Days Qty: 30 0RF digoxin 125 mcg (0.125 mg) tablet 125 mcg PO DAILY Qty: 30 0RF losartan 100 mg tablet 100 mg PO DAILY Patient Comments: TAKE 1 TABLET BY MOUTH ONCE A DAY Eliquis 5 mg Tablet 5 mg PO BID Discontinued potassium chloride 20 mEq tablet,ER particles/crystals 20 meq PO BID tiotropium bromide [Spiriva with HandiHaler] 18 mcg Capsule, W/Inhalation Device 1 cap inhalation DAILY Qty: 30 0RF fluticasone propion-salmeterol [Advair Diskus] 500-50 mcg/dose blister with device 1 inh inhalation BID amlodipine 5 mg Tablet 5 mg PO DAILY 30 Days Qty: 30 0RF No Action prednisone 50 mg tablet PO Q OTHER DAY Patient Comments: TAKE 1 TABLET BY MOUTH ONCE A DAY FOR 5 DAYS levofloxacin 750 mg tablet PO DAILY Patient Comments: TAKE 1 TABLET BY MOUTH ONCE A DAY FOR 5 DAYS doxycycline hyclate 100 mg tablet PO DAILY Patient Comments: TAKE ONE TABLET BY MOUTH TWICE DAILY FOR 5 DAYS -- FINISH ALL MEDICINE -- --TAKE WITH FOOD-- mupirocin 2 % ointment 1 applic topical BID 14 Days Qty: 22 1RF ciclopirox 0.77 % cream 1 applic topical BID 180 Days Qty: 90 1RF Other Ambulatory Orders: Arterial Blood Gas (Routine) Timeframe: [id number] Facility: [facility] - Location: Laboratory Ordered By: Sulaiman Butt Problem Reconciliation Problems Reviewed?: Yes Patient Discharge Instructions Patient Instructions: DI for Chronic Obstructive Pulmonary Disease, Stop Light COPD, Stop Light Heart Failure Print Language: Persian Providers Primary Care Provider: Provider,Referral Admit Provider: Sulaiman Butt Attending Provider: Sulaiman Butt
--- NOTE | 2025-03-01 09:33 | HMH.PTEV ---
Physical Therapy Evaluation Rehab PT IP Evaluation Start: 03/01/25 09:02 Freq: ONCE Status: Active Protocol: Document 03/01/25 09:27 CROW (Rec: 03/01/25 09:33 CROW [id number]) Subjective/History History History Per H&P: Iqra Balbuena is a 69-year-old female with a medical history significant for advanced COPD on 2 L baseline, suspected lung cancer not wanting workup, current tobacco smoker, HFpEF presents with shortness of breath. Patient states she has been feeling short of breath over the past 3 days but today was the worst, so decided to call EMS. They noted significant airway tightness, started CPAP. On arrival, patient was transitioned to BiPAP after VBG showed chronic worsening hypercapnia, but compensated. Initial VBG pH 7.32, [id number]. CBC, CMP unremarkable for acute findings other than calcium 10.6. EMS gave Solu-Medrol 125 mg en route. Attempt was made to transition patient off BiPAP in the ED, but she desaturated to 74% on room air. CXR, CTA chest did not show acute findings. Given these findings, ED provider discussed case with me and I decided to admit patient for acute COPD exacerbation with acute on chronic hypoxia. Subjective Subjective Pt reports she still lives with her son and is IND with mobility using a cane. New diagnosis of No cancer in past 12 months? [facility] How much help from another person do you currently need... Turning from your None back to your side while in a flat bed without using bedrails? Moving from lying on None back to sitting on the side of a flat bed without using bedrails? Moving to and from a None bed to a chair ( including a wheelchair)? Standing up from a A little chair using your arms? (e.g., wheelchair, bedside chair) Walking in hospital A little room? Climbing 3-5 steps A little with a railing? Mobility Score 21 Mobility Level [facility] Mobility 6 Walk 10 steps or more Mobility Calculator Rehab PT IP Eval Objective Appearance Patient Behavior Appropriate Patient Orientation Person,Birthday Difficulty following mild instructions Speech Pattern Clear Ambulation Patient Able to No Ambulate Balance Ability to Arise Able, uses arms to help Sitting Balance Steady, safe Transfers Bed Transfer Ability Independent Rehab PT IP prob,goals,plan Problems Date of Evaluation: 03/01/25 PT IP Problems Transfers,Gait,Balance,Self care,Safety Rehab Potential Rehab Potential Good Plan PT Intervention Plan Transfers,Gait,Balance,Self care,Safety,Therapeutic Exercise Other Intervention 1-2 times Plan PT Plan Frequency Daily Duration LOS Discharge Plan PT Discharge Plan PT evaluation limited by limited participation from pt. Pt only agreeable to demo bed mobility (which she was IND). PT did not observe transfers or ambulation. Pt most appropriate for HH or OP therapy upon d/c. Pt would benefit from PT while at [facility] to prevent functional decline. Eval Complexity Eval Charge Codes 52280 - Moderate Complexity PHYSICIAN CERTIFICATION: I certify the specified therapy services for Iqra Balbuena are required, authorized, and reviewed every 30 days.
--- NOTE | 2025-03-01 09:34 | HMH.OTEV ---
OT Inpatient Evaluation Rehab OT IP Evaluation Start: 03/01/25 09:02 Freq: ONCE Status: Active Protocol: Document 03/01/25 09:30 [place] (Rec: [facility]01[facility] 09:[id number] Rehab OT IP Assessment Subjective History Pt oriented x 3 on arrival. Pt agreeable to engage in therapy evaluation after MAX verbal prompts to participate. Pt admitted on 02/28/25 due to respiratory failure. History and physical: Iqra Balbuena is a 69-year-old female with a medical history significant for advanced COPD on 2 L baseline, suspected lung cancer not wanting workup, current tobacco smoker, HFpEF presents with shortness of breath . Patient states she has been feeling short of breath over the past 3 days but today was the worst, so decided to call EMS. They noted significant airway tightness, started CPAP. On arrival, patient was transitioned to BiPAP after VBG showed chronic worsening hypercapnia, but compensated. Initial VBG pH 7.32, [id number]. CBC, CMP unremarkable for acute findings other than calcium 10.6. EMS gave Solu-Medrol 125 mg en route. Attempt was made to transition patient off BiPAP in the ED, but she desaturated to 74% on room air. CXR, CTA chest did not show acute findings. Given these findings, ED provider discussed case with me and I decided to admit patient for acute COPD exacerbation with acute on chronic hypoxia. Subjective Prior to being in the hospital, pt lived at home with her son. Pt claims normally she is independent with all ADLs and she uses a cane during functional transfers. She is on o2 at all times. She is dependent upon son for completion of all IADLS. Objective Patient Orientation Person,Place,Birthday Right Upper WFL Extremity Gross ROM Left Upper Extremity WFL Gross ROM Bed Mobility bed mobility-scooting,bed mobility - supine/sit Assist Level Supervision/Stand by Rehab OT IP prob,goals,plan Problems Date of Evaluation: 03/01/25 Rehab Potential Rehab Potential Innapropriate for Skilled Therapy Equipment Needs Assistive Devices Rolling / Wheeled Walker Plan OT intervention Plan Bed Mobility,Transfers,Balance,Self care,Safety, Therapeutic Exercise OT Plan Frequency Daily Duration LOS Discharge Goals Bed Mobility Ability Independent Sit to Stand Chair Contact Guard/Hand Hold Transfer Ability Chair Transfer Contact Guard/Hand Hold Ability Chair Transfer Sit to/from Ambulatory Technique Chair Transfer Straight Cane,Rolling Walker Assistive Devices Lower Body Dressing Minimal Assistance Ability Upper Body Dressing Standby Assistance Ability Performing Toilet Contact Guard Hygiene Ability Overall Commode/ Contact Guard Toilet Transfer Ability Commode/Toilet Sit to/from Ambulatory Transfer Technique Discharge Plan OT Discharge Plan Pt will continue to be seen for OT services while at [facility]. Pt appears to be close to her baseline with functional transfers and ADL independence. Pt can return home with her son's assistance once she is medically stable per physician. Eval Complexity Eval Charge Codes 59566 - Moderate Complexity PHYSICIAN CERTIFICATION: I certify the specified therapy services for Iqra Balbuena are required, authorized, and reviewed every 30 days.
--- NOTE | 2025-03-01 11:54 | SW/DCPLANNER ---
Spoke with patient regarding home health services or out patient therapy once she is medically stable and ready for discharge. Patient stated that she is not interested in home health or coming back up here for outpatient therapy at this time. Leonel Thomas
[2025-03-01] MEDS: ACETAMINOPHEN 325MG TAB 650 MG PO (13:43)
--- NOTE | 2025-03-02 11:10 | SW/DCPLANNER ---
Spoke with patient on the phone. Patient stated that she is doing ok. patient stated that she is aware of her upcoming appointments. [facility] stated that [facility] her new medicine to her bedside before she was discharged. Patient stated that she has no concerns or questions at this time. Leonel Thomas
== END 2025-03-01 16:40 | disposition home or self-care (01) ==
LOC: ER 15:40 → ICU 18:02
PROVIDERS: Student in an Organized Health Care Education/Training Program; Admitting Provider Student in an Organized Health Care Education/Training Program; Emergency Provider Student in an Organized Health Care Education/Training Program; Visit Provider Student in an Organized Health Care Education/Training Program
DX: J96.22 Acute and chronic respiratory failure with hypercapnia (principal); J44.1 Chronic obstructive pulmonary disease with (acute) exacerbation; I11.0 Hypertensive heart disease with heart failure; I50.32 Chronic diastolic (congestive) heart failure; M48.56XA Collapsed vertebra, not elsewhere classified, lumbar region, initial encounter for fracture; I70.0 Atherosclerosis of aorta; I25.10 Atherosclerotic heart disease of native coronary artery without angina pectoris; I48.91 Unspecified atrial fibrillation; E78.5 Hyperlipidemia, unspecified; K75.3 Granulomatous hepatitis, not elsewhere classified; N28.1 Cyst of kidney, acquired; J43.9 Emphysema, unspecified; F17.210 Nicotine dependence, cigarettes, uncomplicated; M48.54XA Collapsed vertebra, not elsewhere classified, thoracic region, initial encounter for fracture; R91.8 Other nonspecific abnormal finding of lung field; M85.88 Other specified disorders of bone density and structure, other site; Z85.41 Personal history of malignant neoplasm of cervix uteri; Z86.711 Personal history of pulmonary embolism; Z79.01 Long term (current) use of anticoagulants; Z79.899 Other long term (current) drug therapy
CPT/HCPCS: 36415; 71045; 71275; 76604; 80053; 82803; 83735; 84484; 85025; 87040; 87631; 93005; 93308; 94640; 94660; 96365; 96367; 96376; 97162; 97166; 99285; 99291; G0378; J1650; J1938; J1956; J3475; Q9967

== ENCOUNTER 2025-03-12 11:23 | Outpatient (CLI) | payer MEDICARE, SELFPAY ==
--- OUTSIDE RECORDS SUMMARY | 2025-02-06 17:35 | XMS_ITS | Encounter Summary ---
Author Organization [employer] ([place], [place], [place], [place]) Address [address] [place] [address] Care Team Providers Care Inspector Eyeglass Name Role Phone [facility], Provider Not In The System Primary Care [...] unspecified whether nausea present Anticoagulated on Eliquis [facility] Cardiac Telemetry 1 [place] [address] Phone: tel: fax: [facility] Cardiac Telemetry 1 [place] [address] Phone: tel: fax: Referral ID Status Reason Start Date Expiration Date Visits Re quested Visits Authorized [id number] 1 1 Encounter Details Date Type Department Care Team (Late st Contact Info) Description 02/06/2025 5:35 PM EDT - 02/09/2025 12:35 PM EDT Hospital Encounter [facility] Cardiac Telemetry 1 [place] [address] Laura Gibson DO [address] [place] [address] Ricardo Gordon MD [address] [place] [address], [place] [phone] Von Sloan PA-C [address] [place] [address] Lauren NaraSEAN childs [address] [phone] Zhou Nassar DO [address] [phone] Sania Salcido MD [address] [phone] Hematemesis with nausea (Primary Dx); Hematemesis; Nusrat-Prajapati [...] Do you speak a language other than Mauritanian at [facility]? 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 Please call to schedule. repeat CBC Marisa Garcia MD Specialty: Gastroenterology 1401 [facility] [address] [place] [address] Next Steps: Follow up in 2 month(s) Instructions: Repeat EGD office will be reaching out with appontment. Time Spent on Discharge: I spent 35 minutes in [id number] time with the patient and nursing staffconcerning [...] be sent through Care Everywhere. 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 I have independently interpreted chest images. I have actively directed the medical care, formulated diagnosis, and the plan of care. Patient requires a high complexity of decision making for assessment.Voice cloth printer helper technology ([employer]) is used for dictation of this note and sound-alike words might be erroneously placed despite reviewing the note for accuracy. Errors in dictation may reflect use of voice recognition software and not all errors in cloth printer helper may have been detected prior to signing. [...] Procedure Component Value Units Date/Time CTA chest [[id number]] Collected: 02/06/252134 Order Status: Completed Updated: 02/06/252155 [...] by Gareth Meza. CTA abdomen & pelvis [[id number]] Collected: 02/06/252134 Order Status: Completed Updated: 02/06/252155 [...] 02/08/2025 4:21 PM EDT * Nara Aguilar, MANAGER DRILLING - 02/07/2025 3:35 PM EDT [facility] [...] 67 BPM ATRIAL RATE (MCT) 69 BPM [place] Interval 152 ms QRS-INTERVAL (MSEC) 80 ms QT Interval 386 ms QTC Interval 407 ms P [place] 57 degrees R AXIS (MCT) -71 degrees T Wave [place] 40 degrees Garden Diagnosis Age and gender specific ECG analysis [...] Balbuena Admit Date: 02/06/2025 LOS: 1 days Location:[address] [place] [address] PCP on file: Provider Not In The [...] 67 BPM ATRIAL RATE (MCT) 69 BPM [place] Interval 152 ms QRS-INTERVAL (MSEC) 80 ms QT Interval 386 ms QTC Interval 407 ms P [place] 57 degrees R AXIS (MCT) -71 degrees T Wave [place] 40 degrees Garden Diagnosis Age and gender specific ECG analysis [...] Procedure Component Value Units Date/Time CTA chest [[id number]] Collected: 02/06/252134 Order Status: Completed Updated: 02/06/252155 [...] by Gareth Meza. CTA abdomen & pelvis [[id number]] Collected: 02/06/252134 Order Status: Completed Updated: 02/06/252155 [...] COPD, previous alcohol abuse, and hypertensionpresents to [facility] in [place], [place] for further evaluation and management of coughing up blood. Family at bedside assisted with history of present illness. Family states patient used to have history of alcohol abuse however patient has since stopped drinking approximately 1 year prior. Patient and family state that approximately 2 weeks prior to admission [facility] and states patient underwent what sounds like transesophageal echocardiogram. Patient seemingly tolerated procedure well with no obvious acute complications at that time. On day of admission patient began to begin coughing up blood and family states she had blood coming out of her nose. Patient and family deny recent nausea/vomiting or other precipitous symptoms. Patient sought evaluation at [facility] emergency department where patient began coughing upand [...] file. 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 CTA abdomen & pelvis [[id number]] Collected: 02/06/252134 Order Status: Completed Updated: 02/06/252155 [...] with ER provider Dr. Ricardo Gordon at [facility] emergency department. -Laboratory work and pertinent imaging [...] ESOPHAGOGASTRODUODENOSCOPY (EGD); Surgeon: Marisa Garcia MD; Location: [facility]; Service: Gastroenterology; Laterality: N/A; Allergies: No [...] DNR. No vent. Disposition: 303 Tish Leiva, MANAGER DRILLING Time spent [address] chest [...] is agreeable to see us in clinic. Community Service Officer will see her in the morning. Cosigned [...] 67 BPM ATRIAL RATE (MCT) 69 BPM [place] Interval 152 ms QRS-INTERVAL (MSEC) 80 ms QT Interval 386 ms QTC Interval 407 ms P [place] 57 degrees R AXIS (MCT) -71 degrees T Wave [place] 40 degrees Garden Diagnosis Age and gender specific ECG analysis [...] Value Units Date/Time CTA abdomen & pelvis [[id number]] Resulted: 02/06/251910 Order Status: Sent Updated: 02/06/251918 CTA chest [[id number]] Resulted: 02/06/251910 Order Status: Sent Updated: 02/06/251917 [...] bleeding or ulcer was visible. CPT Codes: 53771- EGD with bleeding control Surgeon(s) and Role: [...] HPI. Physical Exam ED Triage Vitals [02/06/25 2575] Encounter Vitals Group BP (!) 153/72 Systolic [...] 67 BPM ATRIAL RATE (MCT) 69 BPM [place] Interval 152 ms QRS-INTERVAL (MSEC) 80 ms QT Interval 386 ms QTC Interval 407 ms P [place] 57 degrees R AXIS (MCT) -71 degrees T Wave [place] 40 degrees Garden Diagnosis Age and gender specific ECG analysis [...] AND HEMATOCRIT STAT 02/06/2025 8:22 PM EDT [place] EGD TRANSORAL CONTROL BLEEDING ANY METHOD 02/06/2025 [...] - 15.7 GM/DL 02/08/2025 3:55 PM EDT [facility] Hematocrit 25.3(L) 34.1 - 44.9 % 02/08/2025 3:55 PM EDT [facility] Blood Venipuncture / Unknown 02/08/2025 3:46 PM EDT 02/08/2025 3:50 PM EDT Nara Aguilar MANAGER DRILLING LAB BLOOD ORDERABLES Fi nal Result Performing Organization Address City/State/[facility] Co de Phone Number [facility] [address] [place] [address] * (ABNORMAL) Manual Differential (02/08/2025 4:41 AM EDT) Pathologist [facility] Total Counted 100 02/08/2025 9:00 AM EDT [facility] % Neutros (manual) 70(H) 50 - 65 % 02/08/2025 9:00 AM EDT [facility] % Bands (manual) 2 % 02/08/2025 9:00 AM EDT [facility] % Lymphs (manual) 23(L) 24 - 44 % 02/08/2025 9:00 AM EDT [facility] % Monos (manual) 1(L) 4 - 5 % 02/08/2025 9:00 AM EDT [facility] % Eos (manual) 4(H) 0 - 3 % 02/08/2025 9:00 AM EDT [facility] RBC Morphology abnormal(A) Normal 9:00 AM EDT [facility] Platelet Estimate Adequate Adequate 02/08/2025 9:00 AM EDT [facility] Hypochromia 1+ 02/08/2025 9:00 AM EDT [facility] Ovalocytes 1+ 02/08/2025 9:00 AM EDT [facility] ANC# 5.54 K/ L 02/08/2025 9:00 AM EDT [facility] Blood Venipuncture / Unknown 02/08/2025 4:41 AM EDT 02/08/2025 5:01 AM EDT us Nara Aguilar MANAGER DRILLING LAB BLOOD ORDERABLES Fi nal Result [facility] [address] [phone] * (ABNORMAL) Comprehensive metabolic panel (02/08/2025 4:41 AM EDT) Sodium 135(L) 136 - 145 meq/L 02/08/2025 5:59 AM EDT [facility] Potassium 3.7 3.4 - 5.1 meq/L 02/08/2025 5:59 AM EDT [facility] Chloride 98 98 - 112 meq/L 02/08/2025 5:59 AM EDT [facility] CO2 29 22 - 29 meq/L 02/08/2025 5:59 AM EDT [facility] Calcium 9.1 8.4 - 10.2 mg/dL 02/08/2025 5:59 AM EDT [facility] Glucose 85 82 - 115 mg/dL 02/08/2025 5:59 AM EDT [facility] BUN 8.3(L) 9.8 - 20.1 mg/dL 02/08/2025 5:59 AM EDT [facility] Creatinine 0.77 0.57 - 1.11 mg/dL 02/08/2025 5:59 AM EDT [facility] BUN/Creatinine 11 8 - 20 02/08/2025 5:59 AM EDT [facility] eGFR (mL/min/1.73m2) 84 >=60 mL/min/1. 73m2 02/08/2025 5:59 AM EDT [facility] Albumin 2.3(L) 3.5 - 5.0 g/dL 02/08/2025 5:59 AM EDT [facility] Alkaline Phosphatase 38(L) 40 - 150 U/L 02/08/2025 5:59 AM EDT [facility] ALT <7 <=34 U/L 02/08/2025 5:59 AM EDT [facility] Comment: ALT2 reagent used for testing does not contain P5P supplementation and therefore may miss ALT elevations in patients with B6 deficiency. This population may be as high as 10% in the [place], with risk factors including malabsorption, drug interactions, and alcoholic hepatitis. AST 11 11 - 34 U/L 02/08/2025 5:59 AM EDT [facility] Comment: AST2 reagent used for testing does not contain P5P supplementation and therefore may miss AST elevations in patients with B6 deficiency. This population may be as high as 10% in the [place], with risk factors including malabsorption, drug interactions, and alcoholic hepatitis. Total Bilirubin 0.2 0.2 - 1.2 mg/dL 02/08/2025 5:59 AM EDT [facility] Protein, Total 5.0(L) 6.4 - 8.3 g/dL 02/08/2025 5:59 AM EDT [facility] Globulin 2.7 2.5 - 4.1 g/dL 02/08/2025 5:59 AM EDT [facility] Anion Gap 12 4 - 12 02/08/2025 5:59 AM EDT [facility] A/G Ratio 0.9 0.7 - 1.9 02/08/2025 5:59 AM EDT [facility] Osmolality Calc 267.8 mOsm/kg 5:59 AM EDT [facility] Blood Venipuncture / Unknown 02/08/2025 4:41 AM EDT 02/08/2025 5:05 AM EDT us Naar Aguilar MANAGER DRILLING LAB BLOOD ORDERABLES Fi nal Result [facility] [address] [phone] * Magnesium (02/08/2025 4:41 AM EDT) Magnesium 1.6 1.6 - 2.6 mg/dL 02/08/2025 5:54 AM EDT [facility] Blood Venipuncture / Unknown 02/08/2025 4:41 AM EDT 02/08/2025 5:05 AM EDT Nara Aguilar MANAGER DRILLING LAB BLOOD ORDERABLES Fi nal Result [facility] [address] [phone] * (ABNORMAL) CBC with automated diff (02/08/2025 4:41 AM EDT) [facility] WBC 7.7 4.0 - 10.0 K/ L 02/08/2025 6:12 AM EDT [facility] RBC 2.75(L) 3.93 - 5.22 M/ L 02/08/2025 6:12 AM EDT [facility] Hemoglobin 8.1(L) 11.2 - 15.7 GM/DL 02/08/2025 6:12 AM EDT [facility] Hematocrit 25.8(L) 34.1 - 44.9 % 02/08/2025 6:12 AM EDT [facility] MCV 94 79 - 95 fL 02/08/2025 6:12 AM EDT [facility] MCH 29.5 25.6 - 32.2 pg 02/08/2025 6:12 AM EDT [facility] MCHC 31.4(L) 32.2 - 35.5 GM/DL 02/08/2025 6:12 AM EDT [facility] RDW 14.2 11.7 - 14.4 % 02/08/2025 6:12 AM EDT [facility] Platelets 315 140 - 375 K/CU MM 02/08/2025 6:12 AM EDT [facility] MPV 9.0(L) 9.4 - 12.3 fL 02/08/2025 6:12 AM EDT [facility] NRBC Absolute <0.01 0 - 0.012 K/ul 02/08/2025 6:12 AM EDT [facility] Blood Venipuncture / Unknown 02/08/2025 4:41 AM EDT 02/08/2025 5:01 AM EDT Narrative [facility] - 02/08/2025 6:12 AM EDT [...] noted Atypical Lymph flag noted Narairis Aguilar [facility] LAB BLOOD ORDERABLES Fi nal Result [facility] [address] [phone] * (ABNORMAL) Hemoglobin and hematocrit (02/07/2025 5:51 PM EDT) Hemoglobin 8.3(L) 11.2 - 15.7 GM/DL 02/07/2025 6:47 PM EDT [facility] Hematocrit 26.9(L) 34.1 - 44.9 % 02/07/2025 6:47 PM EDT [facility] Blood Venipuncture / Unknown 02/07/2025 5:51 PM EDT 02/07/2025 6:45 PM EDT Narairis Aguilar [facility] LAB BLOOD ORDERABLES Fi nal Result [facility] [address] [phone] * (ABNORMAL) Basic Metabolic Panel (02/07/2025 5:18 AM EDT) Sodium 136 136 - 145 meq/L 02/07/2025 6:20 AM EDT [facility] Potassium 4.9 3.4 - 5.1 meq/L 02/07/2025 6:20 AM EDT [facility] CO2 29 22 - 29 meq/L 02/07/2025 6:20 AM EDT [facility] Chloride 99 98 - 112 meq/L 02/07/2025 6:20 AM EDT [facility] Glucose 85 82 - 115 mg/dL 02/07/2025 6:20 AM EDT [facility] BUN 13.0 9.8 - 20.1 mg/dL 02/07/2025 6:20 AM EDT [facility] Creatinine 0.84 0.57 - 1.11 mg/dL 02/07/2025 6:20 AM EDT [facility] BUN/Creatinine 15 8 - 20 02/07/2025 6:20 AM EDT [facility] Calcium 10.0 8.4 - 10.2 mg/dL 02/07/2025 6:20 AM EDT [facility] Anion Gap 13(H) 4 - 12 02/07/2025 6:20 AM EDT [facility] eGFR (mL/min/1.73m2) 75 >=60 mL/min/1.7 3m2 02/07/2025 6:20 AM EDT [facility] Osmolality Calc 271.3 mOsm/kg 6:20 AM EDT [facility] Blood Venipuncture / Unknown 02/07/2025 5:18 AM EDT 02/07/2025 5:59 AM EDT us Von Slaon PA-C LAB BLOOD ORDERABLES Final Res ult Performing Organization Address City/State/[facility] Co de Phone Number [facility] [address] [phone] * (ABNORMAL) CBC - Hemogram (SJ-BKR) (02/07/2025 5:18 AM EDT) WBC 11.6(H) 4.0 - 10.0 K/ L 02/07/2025 6:04 AM EDT [facility] RBC 3.14(L) 3.93 - 5.22 M/ L 02/07/2025 6:04 AM EDT [facility] Hemoglobin 9.1(L) 11.2 - 15.7 GM/DL 02/07/2025 6:04 AM EDT [facility] Hematocrit 30.4(L) 34.1 - 44.9 % 02/07/2025 6:04 AM EDT [facility] MCV 97(H) 79 - 95 fL 02/07/2025 6:04 AM EDT [facility] MCH 29.0 25.6 - 32.2 pg 02/07/2025 6:04 AM EDT [facility] MCHC 29.9(L) 32.2 - 35.5 GM/DL 02/07/2025 6:04 AM EDT [facility] RDW 14.5(H) 11.7 - 14.4 % 02/07/2025 6:04 AM EDT [facility] Platelets 340 140 - 375 K/CU MM 02/07/2025 6:04 AM EDT [facility] MPV 9.1(L) 9.4 - 12.3 fL 02/07/2025 6:04 AM EDT [facility] Blood Venipuncture / Unknown 02/07/2025 5:18 AM EDT 02/07/2025 5:58 AM EDT us Von Sloan PA-C LAB BLOOD ORDERABLES Final Res ult [facility] [address] [place] [address] * (ABNORMAL) Hemoglobin and hematocrit (02/06/2025 8:22 PM EDT) Hemoglobin 9.0(L) 11.2 - 15.7 GM/DL 02/06/2025 8:28 PM EDT [facility] Hematocrit 29.3(L) 34.1 - 44.9 % 02/06/2025 8:28 PM EDT [facility] Blood Venipuncture / Unknown 02/06/2025 8:22 PM EDT 02/06/2025 8:25 PM EDT us Bear Whitney PA-C LAB BLOOD ORDERABLES Final Resul t [facility] [address] [place] [address], [facility] [phone] * CTA abdomen & pelvis (02/06/2025 7:19 [...] [place]. Transcribed by Gareth Meza. Laura Gibson [facility] CT ORDERABLES Final Result * [...] - 10.0 K/ L 02/06/2025 7:07 [facility] RBC 3.47(L) 3.93 - 5.22 M/ L 02/06/2025 7:07 PM EDT [facility] Hemoglobin 10.2(L) 11.2 - 15.7 GM/DL 02/06/2025 7:07 PM [facility] Hematocrit 32.6(L) 34.1 - 44.9 % 02/06/2025 7:07 PM [facility] MCV 94 79 - 95 fL 02/06/2025 7:07 PM [facility] MCH 29.4 25.6 - 32.2 pg 02/06/2025 7:07 PM [facility] MCHC 31.3(L) 32.2 - 35.5 GM/DL 02/06/2025 7:07 PM [facility] RDW 14.6(H) 11.7 - 14.4 % 02/06/2025 7:07 PM [facility] Platelets 414(H) 140 - 375 K/CU MM 02/06/2025 7:07 PM EDT [facility] MPV 9.3(L) 9.4 - 12.3 fL 02/06/2025 7:07 PM EDT [facility] % Neutros 68 34 - 71 % 02/06/2025 7:07 PM EDT [facility] % Lymphs 23 19 - 52 % 02/06/2025 7:07 PM EDT [facility] % Monos 7 5 - 13 % 02/06/2025 7:07 PM EDT [facility] % Eos 2 1 - 6 % 02/06/2025 7:07 PM EDT [facility] % Baso 1 0 - 1 % 02/06/2025 7:07 PM EDT [facility] NRBC Absolute <0.01 0 - 0.012 K/ul 02/06/2025 7:07 PM EDT [facility] # Neutros 7.57(H) 1.56 - 6.13 K/ L 02/06/2025 7:07 PM EDT [facility] # Lymphs 2.55 1.18 - 3.74 K/ L 02/06/2025 7:07 PM EDT [facility] # Monos 0.72 0.24 - 0.86 K/ L 02/06/2025 7:07 PM EDT [facility] # Eos 0.18 0.04 - 0.36 K/ L 02/06/2025 7:07 PM EDT [facility] # Baso 0.07 0.01 - 0.08 K/ L 02/06/2025 7:07 PM EDT [facility] Immature Granulocytes-Re lative 0.40 0.01 - 0.43 % 02/06/2025 7:07 PM EDT [facility] # IG 0.04(H) 0.00 - 0.03 K/uL 02/06/2025 7:07 PM EDT [facility] Blood Venipuncture / Unknown 02/06/2025 6:25 PM EDT 02/06/2025 7:04 PM EDT Narrative [facility] - 02/06/2025 7:07 PM EDT [...] Resu lt Performing Organization Address [facility]/ZIP Co de Phone Number [facility] [address] [phone] * Type and Screen (02/06/2025 6:23 PM EDT) ABO/Rh O Positive 02/06/2025 6:05 PM EDT [facility] [place] Antibody Screen Negative 02/06/2025 6:05 PM EDT [facility] ([place] HISTCHK HIST CHECK PERFORMED 02/06/2025 6:05 PM EDT [facility] ([place] Blood Venipuncture / Unknown 02/06/2025 6:23 PM EDT 02/06/2025 7:04 PM EDT us Laura Gibson DO [facility] TEST ORDERABLES Final Result Performing Organization Address [facility] Co de Phone Number [facility] ([place]) [address] [place] [address] * (ABNORMAL) aPTT (02/06/2025 6:23 PM EDT) aPTT 32.8(H) 22.0 - 32.0 seconds 02/06/2025 7:21 PM EDT [facility] Blood Venipuncture / Unknown 02/06/2025 6:23 PM EDT 02/06/2025 7:04 PM EDT us Laura Gibson DO LAB BLOOD ORDERABLES Final Resu lt Performing Organization Address [facility]/ZIP Co de Phone Number [facility] [address] [phone] * Prothrombin time/INR (02/06/2025 6:23 PM EDT) [facility] Protime 10.4 9.0 - 12.0 seconds 02/06/2025 7:21 PM EDT [facility] INR 0.93 0.80 - 1.10 02/06/2025 7:21 PM EDT [facility] Comment: Recommended therapeutic ranges using International Normalized Ratio (INR) are: INR RANGE 2.0 - 3.0 Routine oral anticoagulant therapy 2.5 - 3.5 Oral anticoagulant therapy for patients with thromboembolic events on standard doses of Coumadin and those with mechanical heart valves. Blood Venipuncture / Unknown 02/06/2025 6:23 PM EDT 02/06/2025 7:04 PM EDT [facility] LAB BLOOD ORDERABLES Final Resu lt Performing Organization Address [facility] Co de Phone Number [facility] [address] [phone] * High Sensitivity Troponin I (02/06/2025 6:23 PM EDT) [facility] Troponin I High Sensitivity (pg/mL) 12.2 <=14 pg/mL 02/06/2025 7:29 PM EDT [facility] Blood Venipuncture / Unknown 02/06/2025 6:23 PM EDT 02/06/2025 7:04 PM EDT Narrative [facility] - 02/06/2025 7:29 PM EDT Applicable to [facility] only. Effective October 06 the lab will begin using a new chemistry analyzer. HsTroponin methodology, reference ranges and critical values have changed. [facility] BLOOD ORDERABLES Final Resu lt Performing Organization Address City/[facility]/ZIP Co de Phone Number [facility] [address] [phone] * Magnesium (02/06/2025 6:23 PM EDT) Magnesium 1.9 1.6 - 2.6 mg/dL 02/06/2025 7:26 PM EDT [facility] Blood Venipuncture / Unknown 02/06/2025 6:23 PM EDT 02/06/2025 7:04 PM EDT us Laura Gibson DO LAB BLOOD ORDERABLES Final Resu lt [facility] [address] [phone] * (ABNORMAL) Comprehensive metabolic panel (02/06/2025 6:23 PM EDT) Sodium 137 136 - 145 meq/L 02/06/2025 7:26 PM EDT [facility] Potassium 5.1 3.4 - 5.1 meq/L 02/06/2025 7:26 PM EDT [facility] Chloride 93(L) 98 - 112 meq/L 02/06/2025 7:26 PM EDT [facility] CO2 36(H) 22 - 29 meq/L 02/06/2025 7:26 PM EDT [facility] Calcium 11.6(H) 8.4 - 10.2 mg/dL 02/06/2025 7:26 PM EDT [facility] [facility] Glucose 104 82 - 115 mg/dL 02/06/2025 7:26 PM EDT [facility] BUN 13.4 9.8 - 20.1 mg/dL 02/06/2025 7:26 PM EDT [facility] Creatinine 1.00 0.57 - 1.11 mg/dL 02/06/2025 7:26 PM EDT [facility] BUN/Creatinine 13 8 - 20 02/06/2025 7:26 PM EDT [facility] eGFR (mL/min/1.73m2) 61 >=60 mL/min/1. 73m2 02/06/2025 7:26 PM EDT [facility] Albumin 2.9(L) 3.5 - 5.0 g/dL 02/06/2025 7:26 PM EDT [facility] Alkaline Phosphatase 53 40 - 150 U/L 02/06/2025 7:26 PM EDT [facility] ALT 8 <=34 U/L 02/06/2025 7:26 PM EDT [facility] Comment: ALT2 reagent used for testing does not contain P5P supplementation and therefore may miss ALT elevations in patients with B6 deficiency. This population may be as high as 10% in the [place], with risk factors including malabsorption, drug interactions, and alcoholic hepatitis. AST 14 11 - 34 U/L 02/06/2025 7:26 PM EDT [facility] Comment: AST2 reagent used for testing does not contain P5P supplementation and therefore may miss AST elevations in patients with B6 deficiency. This population may be as high as 10% in the [place], with risk factors including malabsorption, drug interactions, and alcoholic hepatitis. Total Bilirubin 0.2 0.2 - 1.2 mg/dL 02/06/2025 7:26 PM EDT [facility] Protein, Total 6.5 6.4 - 8.3 g/dL 02/06/2025 7:26 PM EDT [facility] Globulin 3.6 2.5 - 4.1 g/dL 02/06/2025 7:26 PM EDT [facility] Anion Gap 13(H) 4 - 12 02/06/2025 7:26 PM EDT [facility] A/G Ratio 0.8 0.7 - 1.9 02/06/2025 7:26 PM EDT [facility] Osmolality Calc 274.4 mOsm/kg 7:26 PM EDT [facility] Blood Venipuncture / Unknown 02/06/2025 6:23 PM EDT 02/06/2025 7:04 PM EDT us Laura Gibson DO LAB BLOOD ORDERABLES Final Resu lt [facility] [address] [phone] * ECG 12 lead (02/06/2025 5:41 PM EDT) VENTRICULAR RATE EKG/MIN 67 BPM GE MUSE ATRIAL RATE (MCT) 69 BPM GE MUSE IL Interval 152 ms GE MUSE QRS-INTERVAL (MSEC) 80 ms GE MUSE QT Interval 386 ms GE MUSE QTC Interval 407 ms GE MUSE P [place] 57 degrees GE MUSE R AXIS (MCT) -71 degrees GE MUSE T Wave [place] 40 degrees GE MUSE [place] Diagnosis Age and gender specific ECG analysis [...] HEAVENLY) 0043 (Given - Provider: Jordyn Garcia, HOSPITALITY DIRECTOR)0412 (Not Given - Provider: Jordyn Garcia, HOSPITALITY DIRECTOR - Reason: Patient/family refused)0740 (Given - Provider: Josee Lala, HOSPITALITY DIRECTOR)1025 (Given - Provider: Laura Falocn, TOOL MACHINIST)1530 (Given - Provider: Laura Falcon, TOOL MACHINIST)1940 (Given - Provider: Pete Mcnulty)2309 (Given - [...] minutes. documented in this encounter Care Teams Inspector Eyeglass Relationship Specialty Start Date End Date [facility], Provider Not In The System, [place] [address] PCP - General 02/06/25 documented as of this encounter
--- OUTSIDE RECORDS SUMMARY | 2025-02-06 19:00 | XMS_ITS | Encounter Summary ---
Author Organization [employer] ([place], [place], [place], [place]) Address [address] [place] [address] Care Team Providers Care Grain I Farmworker Name Role Phone [facility], Provider Not In The System Primary [...] unspecified whether nausea present Anticoagulated on Eliquis [facility] Cardiac Telemetry 1 [place] [address] Phone: tel: fax: [facility]iac [facility]metry 1 [place] [address] Phone: tel: fax: Referral ID Status Reason Start Date Expiration Date Visits Re quested Visits Authorized [id number] 1 1 Encounter Details Date Type Department Care Team (Late st Contact Info) Description 02/06/2025 7:00 PM EDT - 02/06/2025 7:39 PM EDT Surgery [facility] End[facility] 1 [place] [address] Marisa Garcia MD [address] [place] [address] ESOPHAGOGASTRODUODENOSCOPY (EGD) Social History Tobacco Use Types [...] your living situation today? [facility] 02/07/2025 Think about the [...] Do you speak a language other than Eritrean at [facility]? 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 Her [...] Your Medications These medications were sent to [facility] at [facility] [address] [facility] [id number] pantoprazole 40 MG tablet sucralfate 100 mg/mL [...] MD Jorje Relationship: PCP - General [address] [place] [address] Next Steps: Schedule an appointment as soon as possible for a visit in 1 week(s) Instructions: Unable to reach the office of pcp. Please call to schedule. repeat CBC Marisa Garcia MD Specialty: Gastroenterology [address] [facility] [address] [place] [address] Next Steps: Follow up in 2 month(s) Instructions: Repeat EGD office will be reaching out with appontment. Time Spent on Discharge: I spent 35 minutes in etlv-do-styf time with the patient and nursing staffconcerning [...] be sent through Care Everywhere. 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 I have independently interpreted chest images. I have actively directed the medical care, formulated diagnosis, and the plan of care. Patient requires a high complexity of decision making for assessment.Voice dam worker technology (3Nod) is used for dictation of this note and sound-alike words might be erroneously placed despite reviewing the note for accuracy. Errors in dictation may reflect use of voice recognition software and not all errors in dam worker may have been detected prior to signing. [...] 3 mL, nebulization, Q6H PRN, Nara Aguilar, GRINDER SET UP OPERATOR GEAR TOOL ipratropium-albuteroL (DUO-NEB) 0.5 mg-3 mg(2.5 mg base)/3 mL nebulizer solution 3 mL, 3 mL, nebulization, Q4H, Nara Aguilar, GRINDER SET UP OPERATOR GEAR TOOL, 3 mL at 02/08/25 1025 magnesium sulfate [...] Transcribed by Gareth Meza. Assessment & Plan Unsrat-Prajapati tear Hematemesis Previous history of alcohol abuse [...] Prophylaxis: SCDs Code Status: DNR Emergency Contact: Sandoavl Torres 02/08/25 MDM: The following labs and [...] Balbuena Admit Date: 02/06/2025 LOS: 2 days Location:[facility]- PCP on file: Provider Not In The [...] Procedure Component Value Units Date/Time CTA chest [[id number]] Collected: 02/06/252134 Order Status: Completed Updated: 02/06/252155 [...] by Gareth Meza. CTA abdomen & pelvis [[id number]] Collected: 02/06/252134 Order Status: Completed Updated: 02/06/252155 [...] 67 BPM ATRIAL RATE (MCT) 69 BPM LA Interval 152 ms QRS-INTERVAL (MSEC) 80 ms QT Interval 386 ms QTC Interval 407 ms P [place] 57 degrees R AXIS (MCT) -71 degrees T Wave [place] 40 degrees [place] Diagnosis Age and gender specific ECG analysis [...] Balbuena Admit Date: 02/06/2025 LOS: 1 days Location:[address] [place] [address] PCP on file: Provider Not In The [...] 67 BPM ATRIAL RATE (MCT) 69 BPM LA Interval 152 ms QRS-INTERVAL (MSEC) 80 ms QT Interval 386 ms QTC Interval 407 ms P [place] 57 degrees R AXIS (MCT) -71 degrees T Wave [place] 40 degrees [place] Diagnosis Age and gender specific ECG analysis [...] Procedure Component Value Units Date/Time CTA chest [[id number]] Collected: 02/06/252134 Order Status: Completed Updated: 02/06/252155 [...] by Gareth Meza. CTA abdomen & pelvis [[id number]] Collected: 02/06/252134 Order Status: Completed Updated: 02/06/252155 [...] Sloan PA-C - 02/06/2025 10:35 PM EDT [facility] Patient Name: Iqra Balbuena : 1955 Date: 02/06/2025 PCP: Provider Not In The System MD Jorje Date of Admission: 02/06/2025 Chief Complaint: Coughing up blood Chief Complaint Patient presents with coughing up blood History of Present Illness Iqra Balbuena is a 69 y.o. female with a history of COPD, previous alcohol abuse, and hypertensionpresents to [facility] in [place], [place] for further evaluation and management of coughing up blood. Family at bedside assisted with history of present illness. Family states patient used to have history of alcohol abuse however patient has since stopped drinking approximately 1 year prior. Patient and family state that approximately 2 weeks prior to admission [facility] and states patient underwent what sounds like transesophageal echocardiogram. Patient seemingly tolerated procedure well with no obvious acute complications at that time. On day of admission patient began to begin coughing up blood and family states she had blood coming out of her nose. Patient and family deny recent nausea/vomiting or other precipitous symptoms. Patient sought evaluation at [facility] emergency department where patient began coughing [...] file. Documented Allergies: No Known Allergies Documented TANKAGE SUPERVISOR Medications: (Not in a hospital admission) Review [...] data in the 24 hours ending 02/06/25 0087 Physical Exam Vitals reviewed. Constitutional: General: She [...] 67 BPM ATRIAL RATE (MCT) 69 BPM LA Interval 152 ms QRS-INTERVAL (MSEC) 80 ms QT Interval 386 ms QTC Interval 407 ms P [place] 57 degrees R AXIS (MCT) -71 degrees T Wave [place] 40 degrees [place] Diagnosis Age and gender specific ECG analysis [...] Procedure Component Value Units Date/Time CTA chest [[id number]] Collected: 02/06/252134 Order Status: Completed Updated: 02/06/252155 [...] by Gareth Meza. CTA abdomen & pelvis [[id number]] Collected: 02/06/252134 Order Status: Completed Updated: 02/06/252155 [...] Dr. Reymundo Salamanca. Transcribed by Gaerth Meza. All Documented Medications: Scheduled Meds: pantoprazole [...] suspension 1 g 1 g oral Q6H [facility] Marisa Garcia MD 1 g at Current [...] with ER provider Dr. Ricardo Gordon at [facility] emergency department. -Laboratory work and pertinent [...] ESOPHAGOGASTRODUODENOSCOPY (EGD); Surgeon: Marisa Garcia MD; Location: [facility]; Service: Gastroenterology; Laterality: N/A; Allergies: No [...] is agreeable to see us in clinic. Project Analyst will see her in the morning. [...] 67 BPM ATRIAL RATE (MCT) 69 BPM LA Interval 152 ms QRS-INTERVAL (MSEC) 80 ms QT Interval 386 ms QTC Interval 407 ms P [place] 57 degrees R AXIS (MCT) -71 degrees T Wave [place] 40 degrees [place] Diagnosis Age and gender specific ECG analysis [...] Value Units Date/Time CTA abdomen & pelvis [[id number]] Resulted: 02/06/251910 Order Status: Sent Updated: 02/06/251918 CTA chest [[id number]] Resulted: 02/06/251910 Order Status: Sent Updated: 02/06/251917 [...] bleeding or ulcer was visible. CPT Codes: 35469- EGD with bleeding control Surgeon(s) and Role: [...] 67 BPM ATRIAL RATE (MCT) 69 BPM LA Interval 152 ms QRS-INTERVAL (MSEC) 80 ms QT Interval 386 ms QTC Interval 407 ms P [place] 57 degrees R AXIS (MCT) -71 degrees T Wave [place] 40 degrees [place] Diagnosis Age and gender specific ECG analysis [...] AND HEMATOCRIT STAT 02/06/2025 8:22 PM EDT LA EGD TRANSORAL CONTROL BLEEDING ANY METHOD 02/06/2025 [...] Hemoglobin and hematocrit (02/08/2025 3:46 PM EDT) [facility] Hemoglobin 8.2(L) 11.2 - 15.7 GM/DL 02/08/2025 3:55 PM EDT [facility] Hematocrit 25.3(L) 34.1 - 44.9 % 02/08/2025 3:55 PM EDT [facility] Blood Venipuncture / Unknown 02/08/2025 3:46 PM EDT 02/08/2025 3:50 PM EDT us Nara Aguilar GRINDER SET UP OPERATOR GEAR TOOL LAB BLOOD ORDERABLES Fi nal Result [facility] 1 [place] [address], [facility] [phone] * (ABNORMAL) Manual Differential (02/08/2025 4:41 AM EDT) [facility] Total Counted 100 02/08/2025 9:00 AM EDT [facility] % Neutros (manual) 70(H) 50 - 65 % 02/08/2025 9:00 AM EDT [facility] % Bands (manual) 2 % 02/08/2025 9:00 AM EDT [facility] % Lymphs (manual) 23(L) 24 - 44 % 02/08/2025 9:00 AM EDT [facility] % Monos (manual) 1(L) 4 - 5 % 02/08/2025 9:00 AM EDT [facility] % Eos (manual) 4(H) 0 - 3 % 02/08/2025 9:00 AM EDT [facility] RBC Morphology abnormal(A) Normal 9:00 AM EDT [facility] Platelet Estimate Adequate Adequate 02/08/2025 9:00 AM EDT [facility] Hypochromia 1+ 02/08/2025 9:00 AM EDT [facility] Ovalocytes 1+ 02/08/2025 9:00 AM EDT [facility] ANC# 5.54 K/ L 02/08/2025 9:00 AM EDT [facility] Blood Venipuncture / Unknown 02/08/2025 4:41 AM EDT 02/08/2025 5:01 AM EDT us Nara Aguilar GRINDER SET UP OPERATOR GEAR TOOL LAB BLOOD ORDERABLES Fi nal Result Performing Organization Address [facility]/State/[facility] Co de Phone Number [facility] [address] [place] [address] * (ABNORMAL) Comprehensive metabolic panel (02/08/2025 4:41 AM EDT) Sodium 135(L) 136 - 145 meq/L 02/08/2025 5:59 AM EDT [facility] Potassium 3.7 3.4 - 5.1 meq/L 02/08/2025 5:59 AM EDT [facility] Chloride 98 98 - 112 meq/L 02/08/2025 5:59 AM EDT [facility] CO2 29 22 - 29 meq/L 02/08/2025 5:59 AM [facility] Calcium 9.1 8.4 - 10.2 mg/dL 02/08/2025 5:59 AM [facility] Glucose 85 82 - 115 mg/dL 02/08/2025 5:59 AM [facility] BUN 8.3(L) 9.8 - 20.1 mg/dL 02/08/2025 5:59 AM [facility] Creatinine 0.77 0.57 - 1.11 mg/dL 02/08/2025 5:59 AM [facility] BUN/Creatinine 11 8 - 20 02/08/2025 5:59 AM [facility] eGFR (mL/min/1.73m2) 84 >=60 mL/min/1. 73m2 02/08/2025 5:59 AM [facility] Albumin 2.3(L) 3.5 - 5.0 g/dL 02/08/2025 5:59 AM [facility] Alkaline Phosphatase 38(L) 40 - 150 U/L 02/08/2025 5:59 AM [facility] ALT <7 <=34 U/L 02/08/2025 5:59 AM [facility] Comment: ALT2 reagent used for testing does not contain P5P supplementation and therefore may miss ALT elevations in patients with B6 deficiency. This population may be as high as 10% in the [place], with risk factors including malabsorption, drug interactions, and alcoholic hepatitis. AST 11 11 - 34 U/L 02/08/2025 5:59 AM [facility] Comment: AST2 reagent used for testing does not contain P5P supplementation and therefore may miss AST elevations in patients with B6 deficiency. This population may be as high as 10% in the [place], with risk factors including malabsorption, drug interactions, and alcoholic hepatitis. Total Bilirubin 0.2 0.2 - 1.2 mg/dL 02/08/2025 5:59 AM [facility] Protein, Total 5.0(L) 6.4 - 8.3 g/dL 02/08/2025 5:59 AM [facility] Globulin 2.7 2.5 - 4.1 g/dL 02/08/2025 5:59 AM EDT [facility] Anion Gap 12 4 - 12 02/08/2025 5:59 AM EDT [facility] A/G Ratio 0.9 0.7 - 1.9 02/08/2025 5:59 AM EDT [facility] Osmolality Calc 267.8 mOsm/kg 5:59 AM EDT [facility] Blood Venipuncture / Unknown 02/08/2025 4:41 AM EDT 02/08/2025 5:05 AM EDT Nara Aguilar GRINDER SET UP OPERATOR GEAR TOOL LAB BLOOD ORDERABLES Fi nal Result Performing Organization Address City/[facility]/ZIP Co de Phone Number [facility] [address] [phone] * Magnesium (02/08/2025 4:41 AM EDT) Magnesium 1.6 1.6 - 2.6 mg/dL 02/08/2025 5:54 AM EDT [facility] Blood Venipuncture / Unknown 02/08/2025 4:41 AM EDT 02/08/2025 5:05 AM EDT Nara Aguilar GRINDER SET UP OPERATOR GEAR TOOL LAB BLOOD ORDERABLES Fi nal Result Performing Organization Address City/[facility]/ZIP Co de Phone Number [facility] [address] [phone] * (ABNORMAL) CBC with automated diff (02/08/2025 4:41 AM EDT) WBC 7.7 4.0 - 10.0 K/ L 02/08/2025 6:12 AM EDT [facility] RBC 2.75(L) 3.93 - 5.22 M/ L 02/08/2025 6:12 AM EDT [facility] Hemoglobin 8.1(L) 11.2 - 15.7 GM/DL 02/08/2025 6:12 AM EDT [facility] Hematocrit 25.8(L) 34.1 - 44.9 % 02/08/2025 6:12 AM EDT [facility] MCV 94 79 - 95 fL 02/08/2025 6:12 AM EDT [facility] MCH 29.5 25.6 - 32.2 pg 02/08/2025 6:12 AM EDT [facility] MCHC 31.4(L) 32.2 - 35.5 GM/DL 02/08/2025 6:12 AM EDT [facility] RDW 14.2 11.7 - 14.4 % 02/08/2025 6:12 AM EDT [facility] Platelets 315 140 - 375 K/CU MM 02/08/2025 6:12 AM EDT [facility] MPV 9.0(L) 9.4 - 12.3 fL 02/08/2025 6:12 AM EDT [facility] NRBC Absolute <0.01 0 - 0.012 K/ul 02/08/2025 6:12 AM EDT [facility] Blood Venipuncture / Unknown 02/08/2025 4:41 AM EDT 02/08/2025 5:[address] [facility] - 02/08/2025 6:12 AM EDT [...] Atypical Lymph flag noted us Nara Aguilar GRINDER SET UP OPERATOR GEAR TOOL LAB BLOOD ORDERABLES Fi nal Result [facility] [address] [place] [address] [phone] * (ABNORMAL) Hemoglobin and hematocrit (02/07/2025 5:51 PM EDT) Hemoglobin 8.3(L) 11.2 - 15.7 GM/DL 02/07/2025 6:47 PM EDT [facility] Hematocrit 26.9(L) 34.1 - 44.9 % 02/07/2025 6:47 PM EDT [facility] Blood Venipuncture / Unknown 02/07/2025 5:51 PM EDT 02/07/2025 6:45 PM EDT Nara Blainealbarosaúl GRINDER SET UP OPERATOR GEAR TOOL LAB BLOOD ORDERABLES Fi nal Result [facility] [address] [phone] * (ABNORMAL) Basic Metabolic Panel (02/07/2025 5:18 AM EDT) Sodium 136 136 - 145 meq/L 02/07/2025 6:20 AM EDT [facility] Potassium 4.9 3.4 - 5.1 meq/L 02/07/2025 6:20 AM EDT [facility] CO2 29 22 - 29 meq/L 02/07/2025 6:20 AM EDT [facility] Chloride 99 98 - 112 meq/L 02/07/2025 6:20 AM EDT [facility] Glucose 85 82 - 115 mg/dL 02/07/2025 6:20 AM EDT [facility] BUN 13.0 9.8 - 20.1 mg/dL 02/07/2025 6:20 AM EDT [facility] Creatinine 0.84 0.57 - 1.11 mg/dL 02/07/2025 6:20 AM EDT [facility] BUN/Creatinine 15 8 - 20 02/07/2025 6:20 AM EDT [facility] Calcium 10.0 8.4 - 10.2 mg/dL 02/07/2025 6:20 AM EDT [facility] Anion Gap 13(H) 4 - 12 02/07/2025 6:20 AM EDT [facility] eGFR (mL/min/1.73m2) 75 >=60 mL/min/1.7 3m2 02/07/2025 6:20 AM EDT [facility] Osmolality Calc 271.3 mOsm/kg 6:20 AM EDT [facility] Blood Venipuncture / Unknown 02/07/2025 5:18 AM EDT 02/07/2025 5:59 AM EDT us Von Sloan PA-C LAB BLOOD ORDERABLES Final Res ult [facility] [address] [phone] * (ABNORMAL) CBC - Hemogram (SJ-BKR) (02/07/2025 5:18 AM EDT) WBC 11.6(H) 4.0 - 10.0 K/ L 02/07/2025 6:04 AM EDT [facility] RBC 3.14(L) 3.93 - 5.22 M/ L 02/07/2025 6:04 AM EDT [facility] Hemoglobin 9.1(L) 11.2 - 15.7 GM/DL 02/07/2025 6:04 AM EDT [facility] Hematocrit 30.4(L) 34.1 - 44.9 % 02/07/2025 6:04 AM EDT [facility] MCV 97(H) 79 - 95 fL 02/07/2025 6:04 AM EDT [facility] MCH 29.0 25.6 - 32.2 pg 02/07/2025 6:04 AM EDT [facility] MCHC 29.9(L) 32.2 - 35.5 GM/DL 02/07/2025 6:04 AM EDT [facility] RDW 14.5(H) 11.7 - 14.4 % 02/07/2025 6:04 AM EDT [facility] Platelets 340 140 - 375 K/CU MM 02/07/2025 6:04 AM EDT [facility] MPV 9.1(L) 9.4 - 12.3 fL 02/07/2025 6:04 AM EDT [facility] Blood Venipuncture / Unknown 02/07/2025 5:18 AM EDT 02/07/2025 5:58 AM EDT Von Sloan PA-C LAB BLOOD ORDERABLES Final Res ult [facility] [address] [phone] * (ABNORMAL) Hemoglobin and hematocrit (02/06/2025 8:22 PM EDT) Hemoglobin 9.0(L) 11.2 - 15.7 GM/DL 02/06/2025 8:28 PM EDT [facility] Hematocrit 29.3(L) 34.1 - 44.9 % 02/06/2025 8:28 PM EDT [facility] Blood Venipuncture / Unknown 02/06/2025 8:22 PM EDT 02/06/2025 8:25 PM EDT Bear Whitney PA-C LAB BLOOD ORDERABLES Final Resul t [facility] [address] [place] [address], [facility] [phone] * CTA abdomen & pelvis (02/06/2025 7:19 [...] Transcribed by Gareth Meza. Laura Gibson DO [facility] CT ORDERABLES Final Result * CTA chest [...] by Gareth Meza. us Laura Gibson DO [facility] CT ORDERABLES Final Result * (ABNORMAL) CBC with Auto Diff (02/06/2025 6:25 PM EDT) WBC 11.1(H) 4.0 - 10.0 K/ L 02/06/2025 7:07 PM EDT [facility] RBC 3.47(L) 3.93 - 5.22 M/ L 02/06/2025 7:07 PM EDT [facility] Hemoglobin 10.2(L) 11.2 - 15.7 GM/DL 02/06/2025 7:07 PM EDT [facility] Hematocrit 32.6(L) 34.1 - 44.9 % 02/06/2025 7:07 PM EDT [facility] MCV 94 79 - 95 fL 02/06/2025 7:07 PM EDT [facility] MCH 29.4 25.6 - 32.2 pg 02/06/2025 7:07 PM EDT [facility] MCHC 31.3(L) 32.2 - 35.5 GM/DL 02/06/2025 7:07 PM EDT [facility] RDW 14.6(H) 11.7 - 14.4 % 02/06/2025 7:07 PM EDT [facility] Platelets 414(H) 140 - 375 K/CU MM 02/06/2025 7:07 PM EDT [facility] MPV 9.3(L) 9.4 - 12.3 fL 02/06/2025 7:07 PM EDT [facility] % Neutros 68 34 - 71 % 02/06/2025 7:07 PM EDT [facility] % Lymphs 23 19 - 52 % 02/06/2025 7:07 PM EDT [facility] % Monos 7 5 - 13 % 02/06/2025 7:07 PM EDT [facility] % Eos 2 1 - 6 % 02/06/2025 7:07 PM EDT [facility] % Baso 1 0 - 1 % 02/06/2025 7:07 PM EDT [facility] NRBC Absolute <0.01 0 - 0.012 K/ul 02/06/2025 7:07 PM EDT [facility] # Neutros 7.57(H) 1.56 - 6.13 K/ L 02/06/2025 7:07 PM EDT [facility] # Lymphs 2.55 1.18 - 3.74 K/ L 02/06/2025 7:07 PM EDT [facility] # Monos 0.72 0.24 - 0.86 K/ L 02/06/2025 7:07 PM EDT [facility] # Eos 0.18 0.04 - 0.36 K/ L 02/06/2025 7:07 PM EDT [facility] # Baso 0.07 0.01 - 0.08 K/ L 02/06/2025 7:07 PM EDT [facility] Immature Granulocytes-Re lative 0.40 0.01 - 0.43 % 02/06/2025 7:07 PM EDT [facility] # IG 0.04(H) 0.00 - 0.03 K/uL 02/06/2025 7:07 PM EDT [facility] Blood Venipuncture / Unknown 02/06/2025 6:25 PM EDT 02/06/2025 7:04 PM EDT Narrative [facility] - 02/06/2025 7:07 PM EDT When [...] DO LAB BLOOD ORDERABLES Final Resu lt [facility] [address] [phone] * Type and Screen (02/06/2025 6:23 PM EDT) ABO/Rh O Positive 02/06/2025 6:05 PM EDT [facility] ([place]) Antibody Screen Negative 02/06/2025 6:05 PM EDT [facility] ([place]) HISTCHK HIST CHECK PERFORMED 02/06/2025 6:05 PM EDT [facility] ([place]) Blood Venipuncture / Unknown 02/06/2025 6:23 PM EDT 02/06/2025 7:04 PM EDT Laura Gibson [facility] TEST ORDERABLES Final Result Performing Organization Address City/[facility]/ZIP Co de Phone Number [facility] ([place]) [address] [place] [address], [facility] [phone] * (ABNORMAL) aPTT (02/06/2025 6:23 PM EDT) aPTT 32.8(H) 22.0 - 32.0 seconds 02/06/2025 7:21 PM EDT [facility] Blood Venipuncture / Unknown 02/06/2025 6:23 PM EDT 02/06/2025 7:04 PM EDT [facility] BLOOD ORDERABLES Final Resu lt Performing Organization Address [facility] Co de Phone Number [facility] [address] [place] [address] * Prothrombin time/INR (02/06/2025 6:23 PM EDT) Protime 10.4 9.0 - 12.0 seconds 02/06/2025 7:21 PM EDT [facility] INR 0.93 0.80 - 1.10 02/06/2025 7:21 PM EDT [facility] Comment: Recommended therapeutic ranges using International Normalized Ratio (INR) are: INR RANGE 2.0 - 3.0 Routine oral anticoagulant therapy 2.5 - 3.5 Oral anticoagulant therapy for patients with thromboembolic events on standard doses of Coumadin and those with mechanical heart valves. Blood Venipuncture / Unknown 02/06/2025 6:23 PM EDT 02/06/2025 7:04 PM EDT [facility] BLOOD ORDERABLES Final Resu lt Performing Organization Address [facility]/ZIP Co de Phone Number [facility] [address] [phone] * High Sensitivity Troponin I (02/06/2025 6:23 PM EDT) [facility] Troponin I High Sensitivity (pg/mL) 12.2 <=14 pg/mL 02/06/2025 7:29 PM EDT [facility] Blood Venipuncture / Unknown 02/06/2025 6:23 PM EDT 02/06/2025 7:04 PM EDT Narrative [facility] - 02/06/2025 7:29 PM EDT Applicable to [facility] only. Effective October 06 the lab will begin using a new chemistry analyzer. HsTroponin methodology, reference ranges and critical values have changed. [facility] BLOOD ORDERABLES Final Resu lt [facility] [address] [phone] * Magnesium (02/06/2025 6:23 PM EDT) [facility] Magnesium 1.9 1.6 - 2.6 mg/dL 02/06/2025 7:26 PM EDT [facility] Blood Venipuncture / Unknown 02/06/2025 6:23 PM EDT 02/06/2025 7:04 PM EDT [facility] LAB BLOOD ORDERABLES Final Resu lt [facility] [address] [phone] * (ABNORMAL) Comprehensive metabolic panel (02/06/2025 6:23 PM EDT) [facility] Sodium 137 136 - 145 meq/L 02/06/2025 7:26 PM EDT [facility] Potassium 5.1 3.4 - 5.1 meq/L 02/06/2025 7:26 PM EDT [facility] Chloride 93(L) 98 - 112 meq/L 02/06/2025 7:26 PM EDT [facility] CO2 36(H) 22 - 29 meq/L 02/06/2025 7:26 PM [facility] Calcium 11.6(H) 8.4 - 10.2 mg/dL 02/06/2025 7:26 PM [facility] Glucose 104 82 - 115 mg/dL 02/06/2025 7:26 PM [facility] BUN 13.4 9.8 - 20.1 mg/dL 02/06/2025 7:26 PM [facility] Creatinine 1.00 0.57 - 1.11 mg/dL 02/06/2025 7:26 PM [facility] BUN/Creatinine 13 8 - 20 02/06/2025 7:26 PM [facility] eGFR (mL/min/1.73m2) 61 >=60 mL/min/1. 73m2 02/06/2025 7:26 PM [facility] Albumin 2.9(L) 3.5 - 5.0 g/dL 02/06/2025 7:26 PM [facility] Alkaline Phosphatase 53 40 - 150 U/L 02/06/2025 7:26 PM [facility] ALT 8 <=34 U/L 02/06/2025 7:26 PM [facility] Comment: ALT2 reagent used for testing does not contain P5P supplementation and therefore may miss ALT elevations in patients with B6 deficiency. This population may be as high as 10% in the [place], with risk factors including malabsorption, drug interactions, and alcoholic hepatitis. AST 14 11 - 34 U/L 02/06/2025 7:26 PM [facility] Comment: AST2 reagent used for testing does not contain P5P supplementation and therefore may miss AST elevations in patients with B6 deficiency. This population may be as high as 10% in the [place], with risk factors including malabsorption, drug interactions, and alcoholic hepatitis. Total Bilirubin 0.2 0.2 - 1.2 mg/dL 02/06/2025 7:26 PM [facility] Protein, Total 6.5 6.4 - 8.3 g/dL 02/06/2025 7:26 PM [facility] Globulin 3.6 2.5 - 4.1 g/dL 02/06/2025 7:26 PM EDT [facility] Anion Gap 13(H) 4 - 12 02/06/2025 7:26 PM EDT [facility] A/G Ratio 0.8 0.7 - 1.9 02/06/2025 7:26 PM EDT [facility] Osmolality Calc 274.4 mOsm/kg 7:26 PM EDT [facility] Blood Venipuncture / Unknown 02/06/2025 6:23 PM EDT 02/06/2025 7:04 PM EDT us Laura Gibson DO LAB BLOOD ORDERABLES Final Resu lt Performing Organization Address City/[facility]/ZIP Co de Phone Number [facility] [address] [phone] * ECG 12 lead (02/06/2025 5:41 PM EDT) VENTRICULAR RATE EKG/MIN 67 BPM GE MUSE ATRIAL RATE (MCT) 69 BPM GE MUSE LA Interval 152 ms GE MUSE QRS-INTERVAL (MSEC) 80 ms GE MUSE QT Interval 386 ms GE MUSE QTC Interval 407 ms GE MUSE P [place] 57 degrees GE MUSE R AXIS (MCT) -71 degrees GE MUSE T Wave [place] 40 degrees GE MUSE [place] Diagnosis Age and gender specific ECG analysis Normal sinus rhythm Left axis deviation Abnormal ECG When compared with ECG of 06-OCT-2024 19:45, Significant changes have occurred Confirmed by Edvin ESPINOZA, Margret (2019) on 02/08/2025 5:26:45 PM GE MUSE 02/06/2025 5:41 PM EDT 02/08/2025 5:26 PM EDT us Laura Gibson DO ECG ORDERABLES Final Result Performing Organization Address [facility]/ZIP Co de Phone Number [employer] * EKG-SCANNED (02/06/2025) Narrative 02/06/2025 Ordered by [...] Nebulization 1821 (Given - Provider: Sharona Maradiaga, BENDER MACHINE OPERATOR) 0043 (Given - Provider: Jordyn Garcia, URGENT CARE TECHNICIAN)0412 (Not Given - Provider: Jordyn Garcia URGENT CARE TECHNICIAN - Reason: Patient/family refused)0740 (Given - Provider: Josee Lala, URGENT CARE TECHNICIAN)1025 (Given - Provider: Laura Falcon, BENDER MACHINE OPERATOR)1530 (Given - Provider: Laura Falcon, BENDER MACHINE OPERATOR)1940 (Given - Provider: Pete Mcnulty)[id number] [...] minutes. 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
--- NOTE | 2025-03-12 11:30 | US_ITS ---
FINAL REPORT CLINICAL HISTORY: Symptoms and signs involving circulatory system COMPARISON: None FINDINGS: ANKLE-BRACHIAL PRESSURE INDICES Pressure indices are as follows: RIGHT LOWER EXTREMITY: Evaluation of the ankle-brachial indices on the right side is extremely limited secondary to inability to obtain right posterior tibial and dorsalis pedis arterial measurements. Ankle-brachial pressure index: Estimated at 0.9 Comments: Low normal LEFT LOWER EXTREMITY: Ankle-brachial pressure index: 0.9 Comments: Low normal IMPRESSION: Evaluation of ankle-brachial indices on the right side is limited as described above. Low normal ankle-brachial pressure index on the left side, consistent with borderline peripheral vascular disease. Reviewed, Interpreted and Dictated by Eliel Moreno MD Transcribed by Lissa Renee Authenticated and . [facility]
--- OUTSIDE RECORDS SUMMARY | 2025-03-12 11:36 | XMS_ITS | Encounter Summary ---
Author Organization [employer] ([place], [place], [place], [place]) Address [address] [place] [address] Care Team Providers Care Sack Sorter Name Role Phone [facility], Provider Not In The System Primary [...] Do you speak a language other than Upper Sorbian at [facility]? No 02/07/2025 Do you want help [...] on filedocumented in this encounter Care Teams Sack Sorter Relationship Specialty Start Date End Date [facility], Provider Not In The System, [place] [address] PCP - General 02/06/25 documented as of this encounter
--- OUTSIDE RECORDS SUMMARY | 2025-03-12 11:37 | XMS_ITS | Clinical Summary ---
Author Organization Healthcare Address [address] [place] [address] Care Team Providers Care Atg Java Developer Name Role Phone Rajat Navarro MD Primary Care Provider [phone] Social History Tobacco Use Types Packs/Day Years [...] 2005 UKY-Zoster Vaccines (1 of 2) 2005 [id number] Vaccine ( - 2023- season) 2024 05/24/2021, [...] this topic Insurance [employer] MEDICARE Care Teams Atg Java Developer Relationship Specialty Start Date End Date Rajat Navarro MD [address] [place] [address] #1 #1 [place] [id number] PCP - General 07/15/20
--- OUTSIDE RECORDS SUMMARY | 2025-03-12 11:37 | XMS_ITS | Clinical Summary ---
Author Organization [facility] Address [address] [place] [address] Phone Care Team Providers Care Diamond Die Driller Name Role Phone Unavailable Unavailable Conditions or Problems No information available. Medications No information available. Medications Administered No information available. Allergies, Adverse Reactions, Alerts No information available. Results No information available. Plan of Care No information available. Procedures No information available. Vital Signs No information available. Immunizations No information available. Advance Directives No information available.
--- OUTSIDE RECORDS SUMMARY | 2025-03-12 11:38 | XMS_ITS | Referral Summary ---
Author Organization [employer] ([place], [place], [place], [place]) Address [address] [place] [address] Care Team Providers Care Putty And Patch Worker Name Role Phone [facility], Provider Not In The System MD Primary Care Provider Unavailable Encounters Date Type Department Care Team Description 02/06/2025 5:35 PM EDT - 02/09/2025 12:35 PM EDT Hospital Encounter [facility] Cardiac Telemetry [address] [place] [address] Laura Gibson DO Turley, David, [...] EDT - 02/06/2025 7:39 PM EDT Surgery [facility] [place] [facility] [address] [place] [address] Marisa Garcia MD ESOPHAGOGASTRODUODENOSCOPY (EGD) [...] daily. 30 capsule 5 10/10/19 26 Active apixaban (Eliquis) 5 mg tab tablet Take 1 tablet (5 mg total) by mouth 2 (two) times daily. Active amLODIPine (NORVASC) 5 MG tablet Take 1 tablet (5 mg total) by mouth daily. Active digoxin (LANOXIN) 125 mcg (0.125 mg) tablet Take 1 tablet (125 mcg total) by mouth daily. Active fluticasone propion-salmete roL (ADVAIR) 500-50 mcg/dose diskus inhaler Inhale 1 puff by mouth 2 (two) times daily. Active metoprolol succinate (TOPROL-XL) 100 MG 24 hr tablet Take 1 tablet (100 mg total) by mouth daily. Active sucralfate (CARAFATE) 100 mg/mL suspension Take 10 mLs (1 g total) by mouth every 6 (six) hours for 10 days. 400 mL 5 02/20/20 25 pantoprazole (PROTONIX) 40 MG tablet Take 1 tablet (40 mg total) by mouth 2 (two) times daily before meals for 30 days. 60 tablet 5 03/11/20 25 Active Problems Problem Noted Date Diagnosed Date [...] [facility] you [facility] a [facility] than [place] [facility] No 02/07/2025 Do you want help [...] on file Medical Devices Implanted Type Area Incident Response Engineer Device Identifier Shelf Expiration Date Model / Serial / Lot Duraclip Sm 16mm [id number] - [id number] Implanted:Qty: 3 on 02/06/2025 by Marisa Garcia MD at [facility] N/A: Esophagus CONMED 04/28/2027 [id number] / / [id number] Procedures Procedure Name Priority Date/Time Associated Diagnosis [...] AND HEMATOCRIT STAT 02/06/2025 8:22 PM EDT CO EGD TRANSORAL CONTROL BLEEDING ANY METHOD 02/06/2025 [...] of3 resultswithin the time period is included. Hemoglobin 8.2(L) 11.2 - 15.7 GM/DL 02/08/2025 3:55 PM EDT [facility] Hematocrit 25.3(L) 34.1 - 44.9 % 02/08/2025 3:55 PM EDT [facility] Blood Venipuncture / Unknown 02/08/2025 3:46 PM EDT 02/08/2025 3:50 PM EDT us Nara Aguilar TONG HOOKER LAB BLOOD ORDERABLES Fi nal Result [facility] [address] [phone] * (ABNORMAL) CBC with automated diff (02/08/2025 4:41 AM EDT) Only the most recent of2 resultswithin the time period is included. WBC 7.7 4.0 - 10.0 K/ L 02/08/2025 6:12 AM EDT [facility] RBC 2.75(L) 3.93 - 5.22 M/ L 02/08/2025 6:12 AM EDT [facility] Hemoglobin 8.1(L) 11.2 - 15.7 GM/DL 02/08/2025 6:12 AM EDT [facility] Hematocrit 25.8(L) 34.1 - 44.9 % 02/08/2025 6:12 AM EDT [facility] MCV 94 79 - 95 fL 02/08/2025 6:12 AM EDT [facility] MCH 29.5 25.6 - 32.2 pg 02/08/2025 6:12 AM EDT [facility] MCHC 31.4(L) 32.2 - 35.5 GM/DL 02/08/2025 6:12 AM EDT [facility] RDW 14.2 11.7 - 14.4 % 02/08/2025 6:12 AM EDT [facility] Platelets 315 140 - 375 K/CU MM 02/08/2025 6:12 AM EDT [facility] MPV 9.0(L) 9.4 - 12.3 fL 02/08/2025 6:12 AM EDT [facility] NRBC Absolute <0.01 0 - 0.012 K/ul 02/08/2025 6:12 AM EDT [facility] Blood Venipuncture / Unknown 02/08/2025 4:41 AM EDT 02/08/2025 5:01 AM EDT Narrative [facility] - 02/08/2025 6:12 AM EDT [...] Atypical Lymph flag noted us Nara Aguilar TONG HOOKER LAB BLOOD ORDERABLES Fi nal Result [facility] [address] [phone] * (ABNORMAL) Manual Differential (02/08/2025 4:41 AM EDT) Total Counted 100 02/08/2025 9:00 AM EDT [facility] % Neutros (manual) 70(H) 50 - 65 % 02/08/2025 9:00 AM EDT [facility] % Bands (manual) 2 % 02/08/2025 9:00 AM EDT [facility] % Lymphs (manual) 23(L) 24 - 44 % 02/08/2025 9:00 AM EDT [facility] % Monos (manual) 1(L) 4 - 5 % 02/08/2025 9:00 AM EDT [facility] % Eos (manual) 4(H) 0 - 3 % 02/08/2025 9:00 AM EDT [facility] RBC Morphology abnormal(A) Normal 9:00 AM EDT [facility] Platelet Estimate Adequate Adequate 02/08/2025 9:00 AM EDT [facility] Hypochromia 1+ 02/08/2025 9:00 AM EDT [facility] Ovalocytes 1+ 02/08/2025 9:00 AM EDT [facility] ANC# 5.54 K/ L 02/08/2025 9:00 AM EDT [facility] Blood Venipuncture / Unknown 02/08/2025 4:41 AM EDT 02/08/2025 5:01 AM EDT Nara Aguilar TONG HOOKER LAB BLOOD ORDERABLES Fi nal Result Performing Organization Address City/[facility] Co de Phone Number [facility] [address] [phone] * Magnesium (02/08/2025 4:41 AM EDT) Only the most recent of2 resultswithin the time period is included. Magnesium 1.6 1.6 - 2.6 mg/dL 02/08/2025 5:54 AM EDT [facility] Blood Venipuncture / Unknown 02/08/2025 4:41 AM EDT 02/08/2025 5:05 AM EDT Nara Goinsmeaghanadelina TONG HOOKER LAB BLOOD ORDERABLES Fi nal Result Performing Organization Address City/[facility] Co de Phone Number [facility] [address] [phone] * (ABNORMAL) Comprehensive metabolic panel (02/08/2025 4:41 AM EDT) Only the most recent of2 resultswithin the time period is included. Sodium 135(L) 136 - 145 meq/L 02/08/2025 5:59 AM EDT [facility] Potassium 3.7 3.4 - 5.1 meq/L 02/08/2025 5:59 AM EDT [facility] Chloride 98 98 - 112 meq/L 02/08/2025 5:59 AM EDT [facility] CO2 29 22 - 29 meq/L 02/08/2025 5:59 AM EDT [facility] Calcium 9.1 8.4 - 10.2 mg/dL 02/08/2025 5:59 AM EDT [facility] Glucose 85 82 - 115 mg/dL 02/08/2025 5:59 AM [facility] BUN 8.3(L) 9.8 - 20.1 mg/dL 02/08/2025 5:59 AM [facility] Creatinine 0.77 0.57 - 1.11 mg/dL 02/08/2025 5:59 AM [facility] BUN/Creatinine 11 8 - 20 02/08/2025 5:59 AM [facility] eGFR (mL/min/1.73m2) 84 >=60 mL/min/1. 73m2 02/08/2025 5:59 AM [facility] Albumin 2.3(L) 3.5 - 5.0 g/dL 02/08/2025 5:59 AM [facility] Alkaline Phosphatase 38(L) 40 - 150 U/L 02/08/2025 5:59 AM [facility] ALT <7 <=34 U/L 02/08/2025 5:59 AM [facility] Comment: ALT2 reagent used for testing does not contain P5P supplementation and therefore may miss ALT elevations in patients with B6 deficiency. This population may be as high as 10% in the [place], with risk factors including malabsorption, drug interactions, and alcoholic hepatitis. AST 11 11 - 34 U/L 02/08/2025 5:59 AM [facility] Comment: AST2 reagent used for testing does not contain P5P supplementation and therefore may miss AST elevations in patients with B6 deficiency. This population may be as high as 10% in the [place], with risk factors including malabsorption, drug interactions, and alcoholic hepatitis. Total Bilirubin 0.2 0.2 - 1.2 mg/dL 02/08/2025 5:59 AM [facility] Protein, Total 5.0(L) 6.4 - 8.3 g/dL 02/08/2025 5:59 AM [facility] Globulin 2.7 2.5 - 4.1 g/dL 02/08/2025 5:59 AM [facility] Anion Gap 12 4 - 12 02/08/2025 5:59 AM [facility] A/G Ratio 0.9 0.7 - 1.9 02/08/2025 5:59 AM EDT [facility] Osmolality Calc 267.8 mOsm/kg 5:59 AM EDT [facility] Blood Venipuncture / Unknown 02/08/2025 4:41 AM EDT 02/08/2025 5:05 AM EDT us Nara Aguilar TONG HOOKER LAB BLOOD ORDERABLES Fi nal Result [facility] [address] [phone] * (ABNORMAL) CBC - Hemogram (SJ-BKR) (02/07/2025 5:18 AM EDT) WBC 11.6(H) 4.0 - 10.0 K/ L 02/07/2025 6:04 AM EDT [facility] RBC 3.14(L) 3.93 - 5.22 M/ L 02/07/2025 6:04 AM EDT [facility] Hemoglobin 9.1(L) 11.2 - 15.7 GM/DL 02/07/2025 6:04 AM EDT [facility] Hematocrit 30.4(L) 34.1 - 44.9 % 02/07/2025 6:04 AM EDT [facility] MCV 97(H) 79 - 95 fL 02/07/2025 6:04 AM EDT [facility] MCH 29.0 25.6 - 32.2 pg 02/07/2025 6:04 AM EDT [facility] MCHC 29.9(L) 32.2 - 35.5 GM/DL 02/07/2025 6:04 AM EDT [facility] RDW 14.5(H) 11.7 - 14.4 % 02/07/2025 6:04 AM EDT [facility] Platelets 340 140 - 375 K/CU MM 02/07/2025 6:04 AM EDT [facility] MPV 9.1(L) 9.4 - 12.3 fL 02/07/2025 6:04 AM EDT [facility] Blood Venipuncture / Unknown 02/07/2025 5:18 AM EDT 02/07/2025 5:58 AM EDT us Von Sloan PA-C LAB BLOOD ORDERABLES Final Res ult [facility] [address] [phone] * (ABNORMAL) Basic Metabolic Panel (02/07/2025 5:18 AM EDT) Sodium 136 136 - 145 meq/L 02/07/2025 6:20 AM EDT [facility] Potassium 4.9 3.4 - 5.1 meq/L 02/07/2025 6:20 AM EDT [facility] CO2 29 22 - 29 meq/L 02/07/2025 6:20 AM EDT [facility] Chloride 99 98 - 112 meq/L 02/07/2025 6:20 AM EDT [facility] Glucose 85 82 - 115 mg/dL 02/07/2025 6:20 AM EDT [facility] BUN 13.0 9.8 - 20.1 mg/dL 02/07/2025 6:20 AM EDT [facility] Creatinine 0.84 0.57 - 1.11 mg/dL 02/07/2025 6:20 AM EDT [facility] BUN/Creatinine 15 8 - 20 02/07/2025 6:20 AM EDT [facility] Calcium 10.0 8.4 - 10.2 mg/dL 02/07/2025 6:20 AM EDT [facility] Anion Gap 13(H) 4 - 12 02/07/2025 6:20 AM EDT [facility] eGFR (mL/min/1.73m2) 75 >=60 mL/min/1.7 3m2 02/07/2025 6:20 AM EDT [facility] Osmolality Calc 271.3 mOsm/kg 6:20 AM EDT [facility] Blood Venipuncture / Unknown 02/07/2025 5:18 AM EDT 02/07/2025 5:59 AM EDT us Von Sloan PA-C LAB BLOOD ORDERABLES Final Res ult [facility] [address] [place] [address], [facility] [phone] * CTA abdomen & pelvis (02/06/2025 7:19 [...] Reymundo Salamanca. Transcribed by Gareth Meza. Laura Arthur [facility] CT ORDERABLES Final Result * [...] Transcribed by Gareth Meza. Laura Gibson DO [facility] ORDERABLES Final Result * Type and Screen (02/06/2025 6:23 PM EDT) ABO/Rh O Positive 02/06/2025 6:05 PM EDT [facility] [place] Antibody Screen Negative 02/06/2025 6:05 PM EDT [facility] [place] HISTCHK HIST CHECK PERFORMED 02/06/2025 6:05 PM EDT [facility] [place] Blood Venipuncture / Unknown 02/06/2025 6:23 PM EDT 02/06/2025 7:04 PM EDT Laura Gibson DO [facility] BLOOD BANK TEST ORDERABLES Final Result [facility] [place] [address] [place] [address], [facility] [phone] * High Sensitivity Troponin I (02/06/2025 6:23 PM EDT) Troponin I High Sensitivity (pg/mL) 12.2 <=14 pg/mL 02/06/2025 7:29 PM EDT [facility] Blood Venipuncture / Unknown 02/06/2025 6:23 PM EDT 02/06/2025 7:04 PM EDT Narrative [facility] - 02/06/2025 7:29 PM EDT Applicable to [facility] only. Effective October 06 the lab will begin using a new chemistry analyzer. HsTroponin methodology, reference ranges and critical values have changed. [facility] LAB BLOOD ORDERABLES Final Resu lt Performing Organization Address City/[facility]/ZIP Co de Phone Number [facility] [address] [phone] * (ABNORMAL) aPTT (02/06/2025 6:23 PM EDT) aPTT 32.8(H) 22.0 - 32.0 seconds 02/06/2025 7:21 PM EDT [facility] Blood Venipuncture / Unknown 02/06/2025 6:23 PM EDT 02/06/2025 7:04 PM EDT [facility] BLOOD ORDERABLES Final Resu lt [facility] [address] [phone] * Prothrombin time/INR (02/06/2025 6:23 PM EDT) Protime 10.4 9.0 - 12.0 seconds 02/06/2025 7:21 PM EDT [facility] INR 0.93 0.80 - 1.10 02/06/2025 7:21 PM EDT [facility] Comment: Recommended therapeutic ranges using [...] ORDERABLES Final Resu lt Performing Organization Address City/[facility]/ZIP Co de Phone Number [facility] [address] [place] [address], [facility] [phone] * ECG 12 lead (02/06/2025 5:41 PM EDT) VENTRICULAR RATE EKG/MIN 67 BPM GE MUSE ATRIAL RATE (MCT) 69 BPM GE MUSE CO Interval 152 ms GE MUSE QRS-INTERVAL (MSEC) 80 ms GE MUSE QT Interval 386 ms GE MUSE QTC Interval 407 ms GE MUSE P [place] 57 degrees GE MUSE R AXIS (MCT) -71 degrees GE MUSE T Wave [place] 40 degrees GE MUSE [place] Diagnosis Age and gender specific ECG analysis Normal sinus rhythm Left axis deviation Abnormal ECG When compared with ECG of 06-OCT-2024 19:45, Significant changes have occurred Confirmed by Edvin ESPINOZA, [facility] (2019) on 02/08/2025 5:26:45 PM GE MUSE 02/06/2025 5:41 PM EDT 02/08/2025 5:26 PM EDT Laura Gibson DO ECG ORDERABLES Final Result Performing Organization Address [facility] Co de Phone Number GE MUSE * EKG-SCANNED (02/06/2025) Narrative 02/06/2025 Ordered by an unspecified provider. Default Scanning Provider SCAN ORDERS Final Result from Last 3 Months Insurance [employer] MCR ADV Advance Directives For more information, please contact: [phone] * DNR - Limited Additional Intervention (Latest Code Status on File) Date Activated Date Inactivated Comments 02/06/2025 9:46 PM 02/09/2025 1:53 PM * Full Code Date Activated Date Inactivated Comments 10/06/2024 8:39 PM 10/09/2024 6:04 PM Care Teams Putty And Patch Worker Relationship Specialty Start Date End Date [facility], Provider Not In The System, [place] [address] PCP - General 02/06/25
--- OUTSIDE RECORDS SUMMARY | 2025-03-12 11:38 | XMS_ITS | Clinical Summary ---
Author Organization [employer] ([place], [place], [place], [place]) Address [address] [place] [address] Care Team Providers Care Corporate Human Resources Manager Name Role Phone [facility], Provider Not In The System MD [...] EDT - 02/06/2025 7:39 PM EDT Surgery [facility] Endoscopy [address] [place] [phone] Marisa Garcia MD ESOPHAGOGASTRODUODENOSCOPY (EGD) 02/06/2025 5:35 PM EDT - 02/09/2025 12:35 PM EDT Hospital Encounter [facility] Cardiac Telemetry [address] [place] [id number] Laura Gibson DO Turley, David, MD Hughes, [...] harm? Never 02/07/2025 How often does anyone, swapnatheresa lawrence family and friends, scream or curse at [...] Do you speak a language other than [place]i at [facility]? No 02/07/2025 Do you want [...] 2025 05/30/2023 Medical Devices Implanted Type Area Dehydrogenation Converter Operator Device Identifier Shelf Expiration Date Model / Serial / Lot Duraclip Sm 16mm [id number] - [id number] Implanted:Qty: 3 on 02/06/2025 by Marisa Garcia MD at [facility] N/A: Esophagus CONMED 04/28/2027 [id number] / / [id number] Procedures Procedure Name Priority Date/Time Associated Diagnosis [...] of3 resultswithin the time period is included. [facility] [address] Hemoglobin 8.2(L) 11.2 - 15.7 GM/DL 02/08/2025 3:55 PM EDT [facility] Hematocrit 25.3(L) 34.1 - 44.9 % 02/08/2025 3:55 PM EDT [facility] Blood Venipuncture / Unknown 02/08/2025 3:46 PM EDT 02/08/2025 3:50 PM EDT Nara Aguilar APRN LAB BLOOD ORDERABLES Fi nal Result [facility] [address] [phone] * (ABNORMAL) CBC with automated diff (02/08/2025 4:41 AM EDT) Only the most recent of2 resultswithin the time period is included. Pathologist [facility] WBC 7.7 4.0 - 10.0 K/ L 02/08/2025 6:12 AM EDT [facility] RBC 2.75(L) 3.93 - 5.22 M/ L 02/08/2025 6:12 AM EDT [facility] Hemoglobin 8.1(L) 11.2 - 15.7 GM/DL 02/08/2025 6:12 AM EDT [facility] Hematocrit 25.8(L) 34.1 - 44.9 % 02/08/2025 6:12 AM EDT [facility] MCV 94 79 - 95 fL 02/08/2025 6:12 AM EDT [facility] MCH 29.5 25.6 - 32.2 pg 02/08/2025 6:12 AM EDT [facility] MCHC 31.4(L) 32.2 - 35.5 GM/DL 02/08/2025 6:12 AM EDT [facility] RDW 14.2 11.7 - 14.4 % 02/08/2025 6:12 AM EDT [facility] Platelets 315 140 - 375 K/CU MM 02/08/2025 6:12 AM EDT [facility] MPV 9.0(L) 9.4 - 12.3 fL 02/08/2025 6:12 AM EDT [facility] NRBC Absolute <0.01 0 - 0.012 K/ul 02/08/2025 6:12 AM EDT [facility] Blood Venipuncture / Unknown 02/08/2025 4:41 AM EDT 02/08/2025 5:01 AM EDT [facility] - 02/08/2025 6:12 AM EDT When [...] Atypical Lymph flag noted us Nara Aguilar APRN LAB BLOOD ORDERABLES Fi nal Result [facility] [address] [phone] * (ABNORMAL) Manual Differential (02/08/2025 4:41 AM EDT) Pathologist [facility] Total Counted 100 02/08/2025 9:00 AM EDT [facility] % Neutros (manual) 70(H) 50 - 65 % 02/08/2025 9:00 AM EDT [facility] % Bands (manual) 2 % 02/08/2025 9:00 AM EDT [facility] % Lymphs (manual) 23(L) 24 - 44 % 02/08/2025 9:00 AM EDT [facility] % Monos (manual) 1(L) 4 - 5 % 02/08/2025 9:00 AM EDT [facility] % Eos (manual) 4(H) 0 - 3 % 02/08/2025 9:00 AM EDT [facility] RBC Morphology abnormal(A) Normal 9:00 AM EDT [facility] Platelet Estimate Adequate Adequate 02/08/2025 9:00 AM EDT [facility] Hypochromia 1+ 02/08/2025 9:00 AM EDT [facility] Ovalocytes 1+ 02/08/2025 9:00 AM EDT [facility] ANC# 5.54 K/ L 02/08/2025 9:00 AM EDT [facility] Blood Venipuncture / Unknown 02/08/2025 4:41 AM EDT 02/08/2025 5:01 AM EDT Nara Aguilar MOTORS ASSEMBLER LAB BLOOD ORDERABLES Fi nal Result [facility] [address] [phone] * Magnesium (02/08/2025 4:41 AM EDT) Only the most recent of2 resultswithin the time period is included. Magnesium 1.6 1.6 - 2.6 mg/dL 02/08/2025 5:54 AM EDT [facility] Blood Venipuncture / Unknown 02/08/2025 4:41 AM EDT 02/08/2025 5:05 AM EDT us Nara Aguilar [employer]ORS ASSEMBLER LAB BLOOD ORDERABLES Fi nal Result [facility] [address] [place] [id number], [facility] [phone] * (ABNORMAL) Comprehensive metabolic panel (02/08/2025 4:41 AM EDT) Only the most recent of2 resultswithin the time period is included. Sodium 135(L) 136 - 145 meq/L 02/08/2025 5:59 AM EDT [facility] Potassium 3.7 3.4 - 5.1 meq/L 02/08/2025 5:59 AM EDT [facility] Chloride 98 98 - 112 meq/L 02/08/2025 5:59 AM EDT [facility] CO2 29 22 - 29 meq/L 02/08/2025 5:59 AM EDT [facility] Calcium 9.1 8.4 - 10.2 mg/dL 02/08/2025 5:59 AM EDT [facility] Glucose 85 82 - 115 mg/dL 02/08/2025 5:59 AM EDT [facility] BUN 8.3(L) 9.8 - 20.1 mg/dL 02/08/2025 5:59 AM EDT [facility] Creatinine 0.77 0.57 - 1.11 mg/dL 02/08/2025 5:59 AM EDT [facility] BUN/Creatinine 11 8 - 20 02/08/2025 5:59 AM EDT [facility] eGFR (mL/min/1.73m2) 84 >=60 mL/min/1. 73m2 02/08/2025 5:59 AM EDT [facility] Albumin 2.3(L) 3.5 - 5.0 g/dL 02/08/2025 5:59 AM EDT [facility] Alkaline Phosphatase 38(L) 40 - 150 U/L 02/08/2025 5:59 AM EDT [facility] ALT <7 <=34 U/L 02/08/2025 5:59 AM EDT [facility] Comment: ALT2 reagent used for testing does not contain P5P supplementation and therefore may miss ALT elevations in patients with B6 deficiency. This population may be as high as 10% in the [place], with risk factors including malabsorption, drug interactions, and alcoholic hepatitis. AST 11 11 - 34 U/L 02/08/2025 5:59 AM EDT [facility] Comment: AST2 reagent used for testing does not contain P5P supplementation and therefore may miss AST elevations in patients with B6 deficiency. This population may be as high as 10% in the [place], with risk factors including malabsorption, drug interactions, and alcoholic hepatitis. Total Bilirubin 0.2 0.2 - 1.2 mg/dL 02/08/2025 5:59 AM EDT [facility] Protein, Total 5.0(L) 6.4 - 8.3 g/dL 02/08/2025 5:59 AM EDT [facility] Globulin 2.7 2.5 - 4.1 g/dL 02/08/2025 5:59 AM EDT [facility] Anion Gap 12 4 - 12 02/08/2025 5:59 AM EDT [facility] A/G Ratio 0.9 0.7 - 1.9 02/08/2025 5:59 AM EDT [facility] Osmolality Calc 267.8 mOsm/kg 5:59 AM EDT [facility] Blood Venipuncture / Unknown 02/08/2025 4:41 AM EDT 02/08/2025 5:05 AM EDT Nara Aguilar [employer] ASSEMBL[employer] LAB BLOOD ORDERABLES Fi nal Result [facility] [address] [phone] * (ABNORMAL) CBC - Hemogram (SJ-BKR) (02/07/2025 5:18 AM EDT) WBC 11.6(H) 4.0 - 10.0 K/ L 02/07/2025 6:04 AM EDT [facility] RBC 3.14(L) 3.93 - 5.22 M/ L 02/07/2025 6:04 AM EDT [facility] Hemoglobin 9.1(L) 11.2 - 15.7 GM/DL 02/07/2025 6:04 AM EDT [facility] Hematocrit 30.4(L) 34.1 - 44.9 % 02/07/2025 6:04 AM EDT [facility] MCV 97(H) 79 - 95 fL 02/07/2025 6:04 AM EDT [facility] MCH 29.0 25.6 - 32.2 pg 02/07/2025 6:04 AM EDT [facility] MCHC 29.9(L) 32.2 - 35.5 GM/DL 02/07/2025 6:04 AM EDT [facility] RDW 14.5(H) 11.7 - 14.4 % 02/07/2025 6:04 AM EDT [facility] Platelets 340 140 - 375 K/CU MM 02/07/2025 6:04 AM EDT [facility] MPV 9.1(L) 9.4 - 12.3 fL 02/07/2025 6:04 AM EDT [facility] Blood Venipuncture / Unknown 02/07/2025 5:18 AM EDT 02/07/2025 5:58 AM EDT us Von Sloan PA-C LAB BLOOD ORDERABLES Final Res ult Performing Organization Address City/State/[facility] Co de Phone Number [facility] [address] [place] [address] * (ABNORMAL) Basic Metabolic Panel (02/07/2025 5:18 AM EDT) Sodium 136 136 - 145 meq/L 02/07/2025 6:20 AM EDT [facility] Potassium 4.9 3.4 - 5.1 meq/L 02/07/2025 6:20 AM EDT [facility] CO2 29 22 - 29 meq/L 02/07/2025 6:20 AM EDT [facility] Chloride 99 98 - 112 meq/L 02/07/2025 6:20 AM EDT [facility] Glucose 85 82 - 115 mg/dL 02/07/2025 6:20 AM EDT [facility] BUN 13.0 9.8 - 20.1 mg/dL 02/07/2025 6:20 AM EDT [facility] Creatinine 0.84 0.57 - 1.11 mg/dL 02/07/2025 6:20 AM EDT [facility] BUN/Creatinine 15 8 - 20 02/07/2025 6:20 AM EDT [facility] Calcium 10.0 8.4 - 10.2 mg/dL 02/07/2025 6:20 AM EDT [facility] Anion Gap 13(H) 4 - 12 02/07/2025 6:20 AM EDT [facility] eGFR (mL/min/1.73m2) 75 >=60 mL/min/1.7 3m2 02/07/2025 6:20 AM EDT [facility] Osmolality Calc 271.3 mOsm/kg 6:20 AM EDT [facility] Blood Venipuncture / Unknown 02/07/2025 5:18 AM EDT 02/07/2025 5:59 AM EDT us Von Sloan PA-C LAB BLOOD ORDERABLES Final Res ult [facility] [address] [phone] * CTA abdomen & pelvis (02/06/2025 7:19 [...] by Gareth Meza. us Laura Gibson DO [facility] CT ORDERABLES Final Result * [...] Transcribed by Gareth Meza. Laura Gibson DO G CT ORDERABLES Final Result * Type and Screen (02/06/2025 6:23 PM EDT) ABO/Rh O Positive 02/06/2025 6:05 PM EDT [facility] ([place]) Antibody Screen Negative 02/06/2025 6:05 PM EDT [facility] ([place]) HISTCHK HIST CHECK PERFORMED 02/06/2025 6:05 PM EDT [facility] ([place]) Blood Venipuncture / Unknown 02/06/2025 6:23 PM EDT 02/06/2025 7:04 PM EDT Laura Gibson DO [facility] BLOOD [facility] TEST ORDERABLES Final Result [facility] ([place]) [address] [place] [address], [facility] [phone] * High Sensitivity Troponin I (02/06/2025 6:23 PM EDT) [facility] [address] Troponin I High Sensitivity (pg/mL) 12.2 <=14 pg/mL 02/06/2025 7:29 PM EDT [facility] Blood Venipuncture / Unknown 02/06/2025 6:23 PM EDT 02/06/2025 7:04 PM EDT Narrative [facility] - 02/06/2025 7:29 PM EDT Applicable to [facility] only. Effective October 06 the lab will begin using a new chemistry analyzer. HsTroponin methodology, reference ranges and critical values have changed. Laura Gibson DO LAB BLOOD ORDERABLES Final Resu lt [facility] [address] [place] [address], [facility] [phone] * (ABNORMAL) aPTT (02/06/2025 6:23 PM EDT) Pathologist [facility] aPTT 32.8(H) 22.0 - 32.0 seconds 02/06/2025 7:21 PM EDT [facility] Blood Venipuncture / Unknown 02/06/2025 6:23 PM EDT 02/06/2025 7:04 PM EDT Lauraevangelina Gibson LAB BLOOD ORDERABLES Final Resu lt [facility] [address] [place] [address], [facility] [phone] * Prothrombin time/INR (02/06/2025 6:23 PM EDT) Protime 10.4 9.0 - 12.0 seconds 02/06/2025 7:21 PM EDT [facility] INR 0.93 0.80 - 1.10 02/06/2025 7:21 PM EDT [facility] Comment: Recommended therapeutic ranges using International Normalized Ratio (INR) are: INR RANGE 2.0 - 3.0 Routine oral anticoagulant therapy 2.5 - 3.5 Oral anticoagulant therapy for patients with thromboembolic events on standard doses of Coumadin and those with mechanical heart valves. Blood Venipuncture / Unknown 02/06/2025 6:23 PM EDT 02/06/2025 7:04 PM EDT Lauraevangelina Gibson LAB BLOOD ORDERABLES Final Resu lt [facility] [address] [place] [address], [facility] [phone] * ECG 12 lead (02/06/2025 5:41 PM EDT) VENTRICULAR RATE EKG/MIN 67 BPM GE MUSE ATRIAL RATE (MCT) 69 BPM GE MUSE [place] Interval 152 ms GE MUSE QRS-INTERVAL (MSEC) 80 ms GE MUSE QT Interval 386 ms GE MUSE QTC Interval 407 ms GE MUSE P [place] 57 degrees GE MUSE R AXIS (MCT) -71 degrees GE MUSE T Wave [place] 40 degrees GE MUSE [place] Diagnosis Age and gender specific ECG analysis [...] Advance Directives For more information, please contact: [phone] * DNR - Limited Additional Intervention (Latest Code Status on File) Date Activated Date Inactivated Comments 02/06/2025 9:46 PM 02/09/2025 1:53 PM * Full Code Date Activated Date Inactivated Comments 10/06/2024 8:39 PM 10/09/2024 6:04 PM Care Teams Corporate Human Resources Manager Relationship Specialty Start Date End Date Jorje, Provider Not In The System, [place] [address] PCP - General 02/06/25
== END 2025-03-12 23:59 | disposition home or self-care (01) ==
LOC: RT 11:23
PROVIDERS: Student in an Organized Health Care Education/Training Program; PCP Nurse Practitioner; Visit Provider Nurse Practitioner
DX: R09.89 Other specified symptoms and signs involving the circulatory and respiratory systems (principal); R20.9 Unspecified disturbances of skin sensation
CPT/HCPCS: 93923

== ENCOUNTER 2025-03-18 12:27 | Outpatient (CLI) | payer MEDICARE, SELFPAY ==
--- OUTSIDE RECORDS SUMMARY | 2025-02-06 17:35 | XMS_ITS | Encounter Summary ---
Author Organization [employer] ([place], [place], [place], [place]) Address [address] [place] [address] Care Team Providers Care Proof Machine Operator Name Role Phone [facility], Provider Not In The System Primary Care Provider Unavailable Reason for Visit * Reason Comments coughing up blood * Auth/Cert (Routine) Specialty Diagnoses / Procedures Referred By Contac t Referred To Contact Diagnoses Hematemesis Nusrat-Prajapati tear Tobacco abuse Acute upper GI bleed Hematemesis with nausea Malignant neoplasm of lung, unspecified laterality, unspecified part of lung (HCC) Hematemesis, unspecified whether nausea present Anticoagulated on Eliquis [facility] Cardiac Telemetry [address] [place] [address] Phone: tel: fax: [facility] Cardiac Telemetry 1 [place] [address] Phone: tel: fax: Referral ID Status Reason Start Date Expiration Date Visits Re quested Visits Authorized [id number] 1 1 Encounter Details Date Type Department Care Team (Late st Contact Info) Description 02/06/2025 5:35 PM EDT - 02/09/2025 12:35 PM EDT Hospital Encounter [facility] Cardiac Telemetry 1 [place] [address] Laura Gibson DO [address] [place] [address] Ricardo Gordon MD [address] [place] [address], [place] [id number] Von Sloan PA-C [address] [place] [address] Lauren NaraSEAN childs [address] [id number] Zhou Nassar DO [address] [id number] Sania Salcido MD [address] [id number] Hematemesis with nausea (Primary Dx); Hematemesis; Nusrat-Prajapati tear; Hematemesis, unspecified whether nausea present; Anticoagulated on Eliquis; Malignant neoplasm of lung, unspecified laterality, unspecified part of lung (HCC); Tobacco abuse Discharge Disposition: Home or Self Care Social History Tobacco Use Types Packs/Day Years Used Date Smoking Tobacco: Every Day Cigarettes Alcohol Use Standard Drinks/Week Comments Never 0 (1 standard drink = 0.6 oz pur e alcohol) Utilities Answer Date Recorded In the past 12 months, has t he electric, gas, oil, or water company threatened to shut off services in your home? No 02/07/2025 Interpersonal Safety Answer Date Record ed How often does anyone, conrad bravo family and friends, physically hurt you? Never 02/07/2025 How often does anyone, conrad bravo family and friends, insult or talk down to you? Never 02/07/2025 How often does anyone, conrad bravo family and friends, threaten you with harm? Never 02/07/2025 How often does anyone, conrad bravo family and friends, scream or curse at you? Never 02/07/2025 Housing Stability Answer Date Recorded What is your living situation today? I have a [facility] place to live 02/07/[address] you li ve. Do you have problems with any of the following? None of the above 02/07/2025 Food Insecurity Answer Date Recorded Within the past 12 months, y ou worried that your food would run out before you got money to buy more. Never true 02/07/2025 Within the past 12 months, t he food you bought just didn't last and you didn't have money to get more. Never true 02/07/2025 Transportation Needs Answer Date Record ed In the past 12 months, has l ack of reliable transportation kept you from medical appointments, meetings, work or from getting things needed for daily living? No 02/07/2025 Financial Resource Strain Answer Date R ecorded How hard is it for you to pa y for the very basics like food, housing, medical care, and heating? Would you say it is: Not hard at all 02/07/2025 Employment Answer Date Recorded Do you want help finding or keeping work or a job? I do not need or want help 02/07/2025 Family and Community Support Answer Joni e Recorded If for any reason you need h elp with day-to-day activities such as bathing, preparing meals, shopping, managing finances, etc., do you get the help you need? I get all the help I need 02/07/2025 Feeling Lonely or Isolated 0 02/07 Educational Attainment Answer Date Loc rded Do you speak a language other than [place] at [facility]? No 02/07/2025 Do you want help with school or training? For example, starting or completing job training or getting a high school diploma, GED or equivalent. No 02/07/2025 Physical Activity Answer Date Recorded Number of minutes of exercise per week 60 02/07/2025 Self Management Answer Date Recorded Because of a physical, menta l, or emotional condition, do you have serious difficulty concentrating, remembering, or making decisions? (5 years or older) No 02/07/2025 Because of a physical, menta l, or emotional condition, do you have difficulty doing errands alone such as visiting a doctor's office or shopping? (15 years or older) No 02/07/2025 Substance Use Answer Date Recorded How many times in the past y ear have you used prescription drugs for non-medical reasons? Never 02/07/2025 How many times in the past year have you used [place] legal drugs? Never 02/07/2025 Mental Health Answer Date Recorded Calculation of above two rows 0 Comments No Sex and Gender Information Value Date Recorded Sex Assigned at Female 01/09/2022 1:15 PM CDT Legal Sex Female 1:15 PM CDT Gender Identity Female 01/09/2022 1:15 PM CDT Sexual Orientation Not on file documented as of this encounter Last Filed Vital Signs Vital Sign Reading Time Taken Comments Blood Pressure 174/81 02/09/2025 10:50 AM EDT Pulse 101 02/09/2025 10:50 AM EDT Temperature 36.6 C (97.9 F) 02/09/2025 10:50 AM EDT Respiratory Rate 18 02/09/2025 4:30 AM EDT Oxygen Saturation 96% 02/09/2025 11:05 AM EDT Inhaled Oxygen Concentration - - Weight 49.9 kg (110 lb) 02/06/2025 5:45 PM EDT Height 154.9 cm (5' 1 ) 02/06/2025 5:45 PM EDT Body Mass Index 20.78 02/06/2025 5:45 PM EDT documented in this encounter Discharge Summaries * Zhou Nassar DO - 02/09/2025 12:35 PM EDT [facility] Discharge Summary Patient Name: Iqra Balbuena : 1955 Date of Admission: 02/06/2025 Date of Discharge: 02/09/2025 Primary Care Physician: Provider Not In The System MD Jorje Hospital Course Mission Worker(s): GI, pulmonology Discharge Diagnosis: Nusrat-Prajapati tear Hematemesis History of previous abuse. Multifocal lung nodules History of COPD not in exacerbation Mesenteric atherosclerosis Reason for Hospitalization: Hematemesis [K92.0];Nusrat-Prajapati tear [K22.6];Tobacco abuse [Z72.0];Acute upper GI bleed [K92.2];Hematemesis with nausea [K92.0];Malignant neoplasm of lung, unspecified laterality, unspecified part of lung (HCC) [C34.90];Hematemesis, unspecified whether nausea present [K 92.0];Anticoagulated on Eliquis [Z79.01] Hospital Course Iqra Balbuena is a 69 y.o. female presenting to the hospital with acute onset hematemesis. She wasstarted on IV PPI and underwent evaluation by GI. She underwent EGD showing 8 cm long Nusrat-Weisstear in the mid and distal esophagus. Her anticoagulation was held and she was started on IV PPI and Carafate. She was subsequently started on liquid diet and had her H&H trended and slowly advance her diet over the next 24 hours. Her hemoglobin remained stable at 8.2 up from 8.1. She will resume her home Eliquis and follow-up with her PCP and GI in the outpatient setting. Plan of care discussed with patient on the day of discharge he was in agreement. PCP follow up list: Hospital follow up visit: Outpatient GI follow-up Day of Discharge Vital Signs: Temp: [97.7 ??F (36.5 ??C)-98.6 ??F (37 ??C)] 97.9 ??F (36.6 ??C) Pulse: [97-118] 101 Resp: [18] 18 BP: (126-174)/(69-85) 174/81 SpO2 for the past 72 hrs (Last 3 readings): SpO2 02/09/25 1105 96 % 02/09/25 1050 95 % 02/09/25 0835 93 % Body mass index is 20.78 kg/m??. Focused Physical Exam: Patient seen and evaluated on day of discharge General: Alert and oriented, no acute distress Neurologic: Awake and alert, moves all extremities spontaneously Eye: EOMI, normal conjunctiva HENT: Normocephalic, atraumatic Lungs: No increased WOB, symmetric respirations Heart: Normal rate, regular rhythm, no murmur Abdomen: Soft, non-tender, non-distended, normal bowel sounds Skin: Skin is warm, dry, no rashes or lesions Psychiatric: Appropriate mood and affect Imaging and Lab Results Procedures: 02/06/25 EGD Impression: 8 cm long Nusrat Prajapati tear in mid and distal esophagus with active bleeding from a vessel at its distal end. The tear was closed with 4 endo clips with cessation of bleeding Discharge Details Allergies:No Known Allergies Medications on Discharge: Your medication list START taking these medications Instructions Comments Quantity Refills pantoprazole 40 MG tablet Commonly known as: PROTONIX Take 1 tablet (40 mg total) by mouth 2 (two) times daily before meals for 30 days. 60 tablet 0 sucralfate 100 mg/mL suspension Commonly known as: CARAFATE Take 10 mLs (1 g total) by mouth every 6 (six) hours for 10 days. 400 mL 0 CONTINUE taking these medications Instructions Comments Quantity Refills albuterol 90 mcg/actuation inhaler Inhale 2 puffs by mouth every 6 (six) hours as needed for wheezing. 0 ALPRAZolam 1 MG tablet Commonly known as: XANAX Take 1 tablet (1 mg total) by mouth 2 (two) times daily as needed for anxiety. 0 amLODIPine 5 MG tablet Commonly known as: NORVASC Take 1 tablet (5 mg total) by mouth daily. 0 calcium carbonate-vitamin D3 600 mg-5 mcg (200 unit) per tablet Take 1 tablet by mouth 2 (two) times daily. 0 cholecalciferol (vitamin D3) 1,250 mcg (50,000 unit) Tab Take 1 tablet (50,000 Units total) by mouth once a week. 0 digoxin 125 mcg (0.125 mg) tablet Commonly known as: LANOXIN Take 1 tablet (125 mcg total) by mouth daily. 0 DULoxetine 30 MG capsule Commonly known as: CYMBALTA Take 1 capsule (30 mg total) by mouth daily. 0 Eliquis 5 MG tablet Generic drug: apixaban Take 1 tablet (5 mg total) by mouth 2 (two) times daily. 0 fluticasone propion-salmeteroL 500-50 mcg/dose diskus inhaler Commonly known as: ADVAIR Inhale 1 puff by mouth 2 (two) times daily. 0 furosemide 40 MG tablet Commonly known as: LASIX Take 1 tablet (40 mg total) by mouth daily. 0 gabapentin 800 MG tablet Commonly known as: NEURONTIN Take 1 tablet (800 mg total) by mouth 3 (three) times daily. Max Daily Amount: 2,400 mg 0 HYDROcodone-acetaminophen 10-325 mg per tablet Commonly known as: NORCO Take 1 tablet by mouth every 6 (six) hours as needed for pain. 0 Linzess 145 mcg Cap Generic drug: linaCLOtide 1 capsule (145 mcg total) daily as needed (for Constipation). 0 losartan 100 MG tablet Commonly known as: COZAAR Take 1 tablet (100 mg total) by mouth daily. 0 magnesium oxide 250 mg magnesium Tab tablet Commonly known as: MAG-OX Take 1 tablet (250 mg total) by mouth 2 (two) times daily with breakfast and dinner. 0 metoprolol succinate 100 MG 24 hr tablet Commonly known as: TOPROL-XL Take 1 tablet (100 mg total) by mouth daily. 0 montelukast 10 mg tablet Commonly known as: SINGULAIR Take 1 tablet (10 mg total) by mouth nightly. 0 polyethylene glycol 17 gram packet Commonly known as: GLYCOLAX Take 17 g by mouth daily. 0 potassium chloride 20 MEQ tablet Commonly known as: KLOR-CON Take 1 tablet (20 mEq total) by mouth 2 (two) times daily. 0 tiotropium 18 mcg inhalation capsule Commonly known as: Spiriva with HandiHaler Inhale 1 capsule (18 mcg total) by mouth daily. 30 capsule 0 STOP taking these medications aspirin 81 MG EC tablet celecoxib 50 MG capsule Commonly known as: CeleBREX Where to Get Your Medications These medications were sent to [facility] at [address] [facility] [address] [address] pantoprazole 40 MG tablet sucralfate 100 mg/mL suspension Discharge condition: Improved and stable Discharge Disposition: Home Discharge Instructions: Please take your medications as prescribed. Please follow up with your PCP in 3-5 days. Please ensure you follow with all subspecialties as discussed on the day of discharge. Discharge Diet: Cardiac Discharge Activity: As tolerated Discharge Follow Up Appointments: Contact information for follow-up Provider Not In The System MD Jorje Relationship: PCP - [place] [address] Next Steps: Schedule an appointment as soon as possible for a visit in 1 week(s) Instructions: Unable to reach the office of pcp. Please call to schedule. repeat CBC Marisa Garcia MD Specialty: Gastroenterology [address] [facility] [address] [place] [address] Next Steps: Follow up in 2 month(s) Instructions: Repeat EGD office will be reaching out with appontment. Time Spent on Discharge: I spent 35 minutes in [id number] time with the patient and nursing staffconcerning the discharge process. We discussed the admitting diagnoses and the hospital course. We discussed identified improvement and the patient's desire to be discharged. We reviewed inpatient studies and imaging. The patient voiced understanding on the importance of follow-up with his primary care provider and specialist(s). The patient plans to be compliant with the medication regimen prescribed and follow up appointments. Patient understands that they can return to the emergency department with any sudden changes or concerns. Electronically signed by: Zhou Nassar DO 02/09/2025, 1:11 PM [facility] documented in this encounter Discharge Instructions * Attachments The following attachments cannot be sent through Care Everywhere. * Hemoptysis [id number] ([place]) * Nusrat-Prajapati Syndrome ([place]) documented in this encounter Medications at Time of Discharge albuterol 90 mcg/actuation inhaler Inhale 2 puffs by mouth every 6 (six) hours as needed for wheezing. ALPRAZolam (XANAX) 1 MG tablet Take 1 tablet (1 mg total) by mouth 2 (two) times daily as needed for anxiety. amLODIPine (NORVASC) 5 MG tablet Take 1 tablet (5 mg total) by mouth daily. apixaban (Eliquis) 5 mg tab tablet Take 1 tablet (5 mg total) by mouth 2 (two) times daily. calcium carbonate-vitami n D3 600 mg-5 mcg (200 unit) per tablet Take 1 tablet by mouth 2 (two) times daily. cholecalciferol, vitamin D3, 1,250 mcg (50,000 unit) tab Take 1 tablet (50,000 Units total) by mouth once a week. digoxin (LANOXIN) 125 mcg (0.125 mg) tablet Take 1 tablet (125 mcg total) by mouth daily. DULoxetine (CYMBALTA) 30 MG capsule Take 1 capsule (30 mg total) by mouth daily. fluticasone propion-salmeter oL (ADVAIR) 500-50 mcg/dose diskus inhaler Inhale 1 puff by mouth 2 (two) times daily. furosemide (LASIX) 40 MG tablet Take 1 tablet (40 mg total) by mouth daily. gabapentin (NEURONTIN) 800 MG tablet Take 1 tablet (800 mg total) by mouth 3 (three) times daily. Max Daily Amount: 2,400 mg HYDROcodone-acet aminophen (NORCO) 10-325 mg per tablet Take 1 tablet by mouth every 6 (six) hours as needed for pain. linaCLOtide (Linzess) 145 mcg cap 1 capsule (145 mcg total) daily as needed (for Constipation). losartan (COZAAR) 100 MG tablet Take 1 tablet (100 mg total) by mouth daily. magnesium oxide (MAG-OX) 250 mg magnesium tab tablet Take 1 tablet (250 mg total) by mouth 2 (two) times daily with breakfast and dinner. metoprolol succinate (TOPROL-XL) 100 MG 24 hr tablet Take 1 tablet (100 mg total) by mouth daily. montelukast (SINGULAIR) 10 mg tablet Take 1 tablet (10 mg total) by mouth nightly. polyethylene glycol (GLYCOLAX) 17 gram packet Take 17 g by mouth daily. potassium chloride (KLOR-CON) 20 MEQ tablet Take 1 tablet (20 mEq total) by mouth 2 (two) times daily. tiotropium (Spiriva with HandiHaler) 18 mcg inhalation capsule Inhale 1 capsule (18 mcg total) by mouth daily. 30 capsule 10/09/2024 6 pantoprazole (PROTONIX) 40 MG tablet Take 1 tablet (40 mg total) by mouth 2 (two) times daily before meals for 30 days. 60 tablet 02/09/2025 5 sucralfate (CARAFATE) 100 mg/mL suspension Take 10 mLs (1 g total) by mouth every 6 (six) hours for 10 days. 400 mL 02/09/2025 5 documented as of this encounter Progress Notes * Haritha Colin MD - 02/09/2025 8:17 AM EDT ConsultsPULMONARY AND CRITICAL CARE Consult Note Date of Service: 02/09/2025 Time: 2:58 PM HPI: This is a 69 y.o. year old female with past medical history that includes COPD, 2 L of oxygen at home, stated history of lung cancer, tobacco abuse, hypertension, etc. She smokes 1 ppd, used to smoke 2 ppd. She started smoking when she was 17. She wears 2L of oxygen at home. In September 2024 patient had hospital admission. She was treated for acute encephalopathy, altered mental status, sepsis, pneumonia, left foot ulcer, foot cellulitis, acute respiratory failure, COPD exacerbation. She was evaluated in September 2024 by the vascular team with recommendation for possible elective outpatient angiogram. The patient presented to the emergency room on February 06, 2025 with complaints of a cough with blood-tinged sputum. On evaluation patient was gagging and spitting up large amounts of blood clots and blood. She admitted to diffuse burning in her abdomen. Patient is on Eliquis. Further evaluation was performed and revealed white blood cell count 11.1, hemoglobin 10.2, platelet count 414, BUN 13, creatinine 1.0, CO2 36, magnesium 1.9, troponin was negative. INR 0.93. Recheck hemoglobin dropped to 9.0. EKG revealed normal sinus rhythm. She was given Kcentra in the emergency room. She underwent CTA chest abdomen and pelvis: 1. No pulmonary embolus, aortic aneurysm or dissection. 2. Multifocal probable neoplastic lesions, as described above. Follow-up with pulmonology is recommended, and a PET/CT should be considered. 3. Findings in the esophagus could reflect esophageal variceal hemorrhage, but are indeterminate. Recommend GI consult. 4. Large volume of stool in the rectum and sigmoid, correlate with constipation. No bowel obstruction. 5. Prominent rugal folds versus focal gastric varices identified in the mid stomach. 6. 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 Vascular surgery follow-up is recommended. Gastroenterology was consulted. She underwent emergent EGD with clamping of multiple ulcerations inher esophagus. Diagnosis was 8 cm long Nusrat-Prajapati tear in the mid and distal esophagus with active bleeding from a vessel at its distal end. The tear was closed with 4 endoclips with cessation of bleeding. Patient was admitted for further care with diagnosis of Nusrat-Prajapati tear, hematic emesis, malignant neoplasm of the lung, tobacco abuse. Since admission she has been followed by gastroenterology and the primary team. In regards to her vascular findings on imaging, primary team plans to refer her to vascular surgeryon an outpatient. On February 08, 2025 the pulmonary team was consulted for multiple pulmonary lesions. There were plans for her to go home tomorrow, request was made for pulmonary consult prior to discharge to help establish with a follow-up. She is seen in room 303. She is awake, alert and oriented. She is on 2L of oxygen. She reports cough with yellow sputum, she reports baseline SOA, baseline intermittent wheezing. She states she has lost weight but not sure how much, she does have decreased appetite and night sweats. No fevers. Daily progress notes: 02/09: Patient was seen and examined today. During rounds patient was awake, alert, oriented, deniedany complaints. Vitals reviewed, on 2 L oxygen, no tachypnea no tachycardia. Labs reviewed hemoglobin stable, white cell count within normal, creatinine within normal. CTA from 02/06 showed no pulmonary embolism, multifocal nodules recommend PET scan in the future. PAST MEDICAL HISTORY: Past Medical History: Diagnosis Date COPD (chronic obstructive pulmonary disease) (HCC) Hypertension PAST SURGICAL HISTORY: Past Surgical History: Procedure Laterality Date ESOPHAGOGASTRODUODENOSCOPY (EGD),CONTROL HEMORRHAGE N/A 02/06/2025 Procedure: ESOPHAGOGASTRODUODENOSCOPY (EGD); Surgeon: Marisa Garcia MD; Location: [facility]; Service: Gastroenterology; Laterality: N/A; Allergies: No Known Allergies SOCIAL HISTORY: Social History Tobacco Use Smoking status: Every Day Types: Cigarettes Substance Use Topics Alcohol use: Never Drug use: Never FAMILY HISTORY: family history is not on file. Review of Systems Constitutional: Positive for chills, diaphoresis, malaise/fatigue and weight loss. Negative for fever. HENT: Negative for sore throat. Eyes: Negative for discharge. Respiratory: Positive for cough, sputum production, shortness of breath and wheezing. Negative for hemoptysis. Cardiovascular: Negative for leg swelling. Gastrointestinal: Positive for abdominal pain and nausea. Negative for vomiting. Genitourinary: Negative for hematuria. Musculoskeletal: Positive for joint pain. Neurological: Positive for headaches. Negative for dizziness. Psychiatric/Behavioral: The patient is nervous/anxious. Vital Signs Temp: [97.5 ??F (36.4 ??C)-98.6 ??F (37 ??C)] 98.6 ??F (37 ??C) Pulse: [84-118] 97 Resp: [18] 18 BP: (126-180)/(72-88) 165/72 Current: Temp: 98.6 ??F (37 ??C) Pulse: 97 Resp: 18 BP: (!) 165/72 SpO2: 95 % 24 Hour: BP Min: 126/82 Max: 180/88 Temp Min: 97.5 ??F (36.4 ??C) Max: 98.6 ??F (37 ??C) Pulse Min: 84 Max: 118 Resp Min: 18 Max: 18 SpO2 Min: 90 % Max: 100 % Intake/Output: I/O last 3 completed shifts: In: - Out: 3720 [Urine:3720] Physical Exam Vitals reviewed. Constitutional: General: She is awake. Appearance: She is well-developed. She is ill-appearing. She is not toxic- appearing or diaphoretic. Comments: 2L HENT: Head: Normocephalic and atraumatic. Mouth/Throat: Pharynx: Oropharynx is clear. Eyes: Extraocular Movements: Extraocular movements intact. Conjunctiva/sclera: Conjunctivae normal. Cardiovascular: Rate and Rhythm: Normal rate. Pulses: Dorsalis pedis pulses are 1+ on the right side and 1+ on the left side. Pulmonary: Effort: Prolonged expiration present. No retractions. Breath sounds: Decreased breath sounds present. No rhonchi or rales. Abdominal: General: Bowel sounds are increased. Palpations: Abdomen is soft. Musculoskeletal: General: Normal range of motion. Right lower leg: No edema. Left lower leg: No edema. Skin: General: Skin is warm and dry. Neurological: General: No focal deficit present. Mental Status: She is alert and oriented to person, place, and time. Psychiatric: Mood and Affect: Mood is anxious. Behavior: Behavior is cooperative. Vent / O2 Management: LABS Results for orders placed or performed during the hospital encounter of 02/06/25 (from the past 24 hours) Hemoglobin and hematocrit Status: Abnormal Collection Time: 02/08/25 3:46 PM Result Value Ref Range Hemoglobin 8.2 (L) 11.2 - 15.7 GM/DL Hematocrit 25.3 (L) 34.1 - 44.9 % Radiology Radiology Results (last day) No results found for the last 24 hours. Microbiology: Microbiology Results (last 7 days) No results found for the last 168 hours. ASSESSMENT: Pulmonary: Chronic respiratory failure with hypoxemia and hypercapnia COPD Home oxygen use Multiple lung lesions Cigarette smoker CTA chest February 06, 2025: No pulmonary embolus. There is a 3.0 cm spiculated mass in the left lung apex. Multiple spiculated nodules in the left upper lobe. A spiculated nodule measuring 25 mm in the posterior right upper lobe. Spiculated nodule measuring 27 mm in the left lower lobe. Spiculated 18 mm nodule in the left lower lobe. Small area of consolidative changes in the lingula. Numerous shotty lymph nodes are in the mediastinum and hilar regions Heme-onc: Anemia ID: Chronic foot ulcer Cardiac: HTN Vascular: Moderate to severe atherosclerotic disease with moderate stenosis of the celiac, SMA and bilateral renal arteries. Renal: Hyponatremia GI: Hematemesis Nusrat Prajapati tear Abnormal findings in the esophagus on CT scan imaging that could reflect esophageal variceal hemorrhage but are indeterminate. Large volume of stool in the rectum and sigmoid. Prominent rugal folds versus gastric varices Gastroenterology was consulted. She underwent emergent EGD with clamping of multiple ulcerations inher esophagus. Diagnosis was 8 cm long Nusrat-Prajapati tear in the mid and distal esophagus with active bleeding from a vessel at its distal end. The tear was closed with 4 endoclips with cessation of bleeding. PLAN: Oxygen supplementation to keep sats greater than 90%. Patient currently on titrated oxygen. DuoNebs every 4 hours Pulmicort nebs BID GI following, status post emergent EGD, please refer to EGD note for details. Patient was diagnosedwith 8 cm long Nusrat-Prajapati tear. Antibiotics: Per primary team; ceftriaxone. GI prophylaxis: Per primary team DVT prophylaxis: SCUDs. Will defer to GI. Nutrition: Per GI DNR. No vent. Disposition: Stepdown unit. Discussed CT chest finding with the patient. Patient states she knew she had a spot on her lung butdidn't know she had many. Discussed findings. She states she was told by Fidelina that she may have lung cancer, but not sure how long ago that was and states she never had biopsy. She states she has not had work up for the multiple lung lesions or seen anyone regarding them. She states she is not sure what she wants to do. Upon asking if she would want a biopsy, she says no. She then says I really don't know what I want to do, but I don't want a biopsy. Im not sure what I want to do yet. She understands that waiting is not recommended if she wants treatment, as this allows for spread if this is a cancer, delay in care, delay in diagnosis, delay in treatment. If this is a cancer it allows for disease progression which then may limit treatment options, worsen prognosis and reduce survival rates. She would like to talk to her family tonight. CT chest reviewed independently, recommend follow-up with pulmonary clinic as outpatient with CT chest in 8 weeks, if lesions persist, then recommend PET scan. I Dr.Al Mendez, have personally evaluated the patient and performed a [id number] diagnostic evaluation on this patient; I have Obtained history, performed physical examination, reviewed laboratory studies. I have independently interpreted chest images. I have actively directed the medical care, formulated diagnosis, and the plan of care. Patient requires a high complexity of decision making for assessment.Voice mobile disc jockey technology ([employer]) is used for dictation of this note and sound-alike words might be erroneously placed despite reviewing the note for accuracy. Errors in dictation may reflect use of voice recognition software and not all errors in mobile disc jockey may have been detected prior to signing. * Nara Aguilar APRN - 02/08/2025 2:32 PM EDT [facility] - PROGRESS NOTE Date of Service: 02/08/25 Subjective Seen today in her room. Feeling better, no vomiting. Denies chest pain SOB. A bit upset about only liquids - explained reasoning, pt verbalized understanding. Hopeful to go home tomorrow. Comprehensive ROS is otherwise negative except as above. Objective Current Facility-Administered Medications: cefTRIAXone (ROCEPHIN) 1 g in sodium chloride 0.9 % (NS) 50 mL LANA IVPB, 1 g, intravenous, Q24H, Von Sloan PA-C, IVPB Stopped at 02/08/25 0930 hydrALAZINE (APRESOLINE) injection 5 mg, 5 mg, intravenous, Q6H PRN, Von Sloan PA-C, 5 mg at 02/08/25 1027 ipratropium-albuteroL (DUO-NEB) 0.5 mg-3 mg(2.5 mg base)/3 mL nebulizer solution 3 mL, 3 mL, nebulization, Q6H PRN, Nara Aguilar APRN ipratropium-albuteroL (DUO-NEB) 0.5 mg-3 mg(2.5 mg base)/3 mL nebulizer solution 3 mL, 3 mL, nebulization, Q4H, Nara Aguilar APRN, 3 mL at 02/08/25 1025 magnesium sulfate IVPB 2 g in sterile water 50 mL (premix), 2 g, intravenous, Daily PRN, Von Sloan PA-C magnesium sulfate IVPB 2 g in sterile water 50 mL (premix), 2 g, intravenous, BID PRN, Von Sloan PA-C ondansetron (ZOFRAN-ODT) disintegrating tablet 4 mg, 4 mg, oral, Q8H PRN OR ondansetron (ZOFRAN) injection 4 mg, 4 mg, intravenous, Q8H PRN, Von Sloan PA-C pantoprazole (PROTONIX) injection 40 mg, 40 mg, intravenous, BID, Marisa Garcia MD, 40 mg at 02/08/25 0900 potassium chloride IVPB 10 mEq in 100 mL sterile water (premix), 10 mEq, intravenous, Q1H PRN, Von Sloan PA-C sodium chloride 0.9 % infusion, 50 mL/hr, intravenous, Continuous, Marisa Garcia MD, Last Rate: 50 mL/hr at 02/07/25 1800, 50 mL/hr at 02/07/25 1800 sucralfate (CARAFATE) 100 mg/mL suspension 1 g, 1 g, oral, Q6H VICENTE, Marisa Garcia MD, 1 g at 02/08/25 1210 Last Recorded Vitals Blood pressure (!) 153/72, pulse 104, temperature 97.7 ??F (36.5 ??C), resp. rate 17, height 1.549 m (5' 1 ), weight 49.9 kg (110 lb), SpO2 98%. Physical Exam GENERAL: Alert, oriented. No acute distress. Conversant. HEENT: Normocephalic, atraumatic. PERRLA, anicteric. Nares patent. OMM. Speech clear, tongue and uvula midline. Edentulous. CV: Regular rate and rhythm, no murmur, no gallop. No carotid bruits. No peripheral edema. Normal peripheral perfusion. PULM: Clear to auscultation bilaterally, no wheeze, no rhonchi. Respirations regular and unlabored. GI: Abdomen soft, nontender, nondistended. Positive bowel sounds. No masses. No hernia. : External exam not performed. MS: Moves all extremities. Strength equal bilaterally to upper and lower extremities. Gait not assessed. NEURO: CN 2-12 grossly intact. No focal deficits. No tremors. SKIN: Warm, dry, intact. PSYCH: Affect appropriate, mood normal. Cooperative. I personally reviewed and interpreted the following pertinent laboratory and diagnostic studies: Labs: Results for orders placed or performed during the hospital encounter of 02/06/25 (from the past 24 hours) Hemoglobin and hematocrit Status: Abnormal Collection Time: 02/07/25 5:51 PM Result Value Ref Range Hemoglobin 8.3 (L) 11.2 - 15.7 GM/DL Hematocrit 26.9 (L) 34.1 - 44.9 % CBC with automated diff Status: Abnormal Collection Time: 02/08/25 4:41 AM Result Value Ref Range WBC 7.7 4.0 - 10.0 K/??L RBC 2.75 (L) 3.93 - 5.22 M/??L Hemoglobin 8.1 (L) 11.2 - 15.7 GM/DL Hematocrit 25.8 (L) 34.1 - 44.9 % MCV 94 79 - 95 fL MCH 29.5 25.6 - 32.2 pg MCHC 31.4 (L) 32.2 - 35.5 GM/DL RDW 14.2 11.7 - 14.4 % Platelets 315 140 - 375 K/CU MM MPV 9.0 (L) 9.4 - 12.3 fL NRBC Absolute <0.01 0 - 0.012 K/ul Magnesium Status: Normal Collection Time: 02/08/25 4:41 AM Result Value Ref Range Magnesium 1.6 1.6 - 2.6 mg/dL Comprehensive metabolic panel Status: Abnormal Collection Time: 02/08/25 4:41 AM Result Value Ref Range Sodium 135 (L) 136 - 145 meq/L Potassium 3.7 3.4 - 5.1 meq/L Chloride 98 98 - 112 meq/L CO2 29 22 - 29 meq/L Calcium 9.1 8.4 - 10.2 mg/dL Glucose 85 82 - 115 mg/dL BUN 8.3 (L) 9.8 - 20.1 mg/dL Creatinine 0.77 0.57 - 1.11 mg/dL BUN/Creatinine 11 8 - 20 eGFR (mL/min/1.73m2) 84 >=60 mL/min/1.73m2 Albumin 2.3 (L) 3.5 - 5.0 g/dL Alkaline Phosphatase 38 (L) 40 - 150 U/L ALT <7 <=34 U/L AST 11 11 - 34 U/L Total Bilirubin 0.2 0.2 - 1.2 mg/dL Protein, Total 5.0 (L) 6.4 - 8.3 g/dL Globulin 2.7 2.5 - 4.1 g/dL Anion Gap 12 4 - 12 A/G Ratio 0.9 0.7 - 1.9 Osmolality Calc 267.8 mOsm/kg Manual Differential Status: Abnormal Collection Time: 02/08/25 4:41 AM Result Value Ref Range Total Counted 100 % Neutros (manual) 70 (H) 50 - 65 % % Bands (manual) 2 % % Lymphs (manual) 23 (L) 24 - 44 % % Monos (manual) 1 (L) 4 - 5 % % Eos (manual) 4 (H) 0 - 3 % RBC Morphology abnormal (A) Normal Platelet Estimate Adequate Adequate Hypochromia 1+ Ovalocytes 1+ ANC# 5.54 K/??L CTA chest, CTA abdomen & pelvis Narrative: CTA/PE PROTOCOL CHEST CT AND CTA SCAN OF THE ABDOMEN AND PELVIS WITH CONTRAST: 02/06/2025 7:11 PM CLINICAL INDICATION: Concern for esophageal varices. Hemoptysis/hematemesis/bleeding. TECHNIQUE: Multiple axial CT images were obtained through the chest following IV contrast utilizing a CTA/PE protocol. 3D/MIP Reconstruction images were also performed. Axial CTA images were also obtained from the lung bases to the pubic symphysis following IV contrast administration according to the CTA abdomen and pelvis protocol. Coronal and sagittal reformatted images were generated from the axial data set and provided for interpretation. These studies were performed with techniques to keep radiation doses as low as reasonably achievable, (ALARA). Individualized dose reduction techniques using automated exposure control or adjustment of mA and/or kV according to the patient size were employed. COMPARISON: None. FINDINGS: PA's and Aorta: No pulmonary embolus. No pulmonary embolism or aneurysm. Thoracic aorta is normal in caliber. Moderate to severe atherosclerotic calcifications in the aorta and major branch vessels. Multifocal coronary artery calcifications. Heart/mediastinum: No evidence for right heart strain. No pericardial effusion. The heart is normal in size. Lungs/Pleura: There is a 3.0 cm spiculated mass in the left lung apex (image 42, series 2). There are multiple spiculated nodules in the left upper lobe on image 63 of series 2. A spiculated nodule measuring 25 mm in the posterior right upper lobe on image 78, series 2. Spiculated nodule measuring 27 mm in the left lower lobe. Spiculated 18 mm nodule in the left lower lobe on image 139. There is a small area of consolidative changes in the lingula. Numerous shotty lymph nodes are in the mediastinum and hilar regions. There is mural thickening throughout the visualized esophagus which is more pronounced distally. There is contrast density layering dependently in the distal esophagus (image 113-129) disease which is indeterminate without multiple contrast phase series. This could represent variceal hemorrhage. There is prominent rugal folds/and/or vessels in the posterior proximal stomach. These could reflect gastric varices. No pneumothorax or pleural effusion. Lymph nodes: No pathologically enlarged thoracic lymph nodes. Chest wall: No acute findings. Bones: No acute fracture. ABDOMEN/PELVIS: VASCULAR: Moderate to severe atherosclerotic changes are noted in the aorta and major branch vessels. There is moderate atherosclerotic calcification at the origin of the celiac and the SMA. There is moderate stenosis at the origin of both renal arteries. The TERRY appears patent. The abdominal aorta is normal in caliber. . The common, internal and external iliac arteries are patent. The visualized portions of the common, superficial and deep femoral arteries are patent and unremarkable. The superior mesenteric vein, splenic vein and main portal veins are patent. The inferior vena cava is unremarkable. Liver, gallbladder and bile ducts: Early morphologic features of cirrhosis are noted. Unremarkable gallbladder. No significant biliary ductal dilatation. Adrenal glands: The adrenal glands are morphologically unremarkable without suspicious lesion. Kidneys, ureters and urinary bladder: There are multiple focal renal cysts. No suspicious renal lesions. No hydronephrosis. Unremarkable urinary bladder. Spleen: The spleen is normal in size. Pancreas: The pancreas is unremarkable. Gastrointestinal system and mesentery: There is prominent rugal folds/and/or vessels in the posterior proximal stomach. These could reflect gastric varices. There is a large volume of stool within the sigmoid and rectum. There is a small to medium-sized hiatal hernia containing a portion of the stomach. There is no evidence of bowel obstruction. The appendix is visualized and unremarkable. No significant mesenteric inflammation. Lymph nodes: No pathologically enlarged abdominal or pelvic lymph nodes are present. Peritoneum: No free intraperitoneal fluid or pneumoperitoneum. Pelvic viscera: No acute findings. Genital organs are unremarkable. No findings to suggest ovarian torsion. Body wall: No acute findings. No significant body wall hernias. Bones: No acute fracture. Impression: 1. No pulmonary embolus, aortic aneurysm or dissection. 2. Multifocal probable neoplastic lesions, as described above. Follow-up with pulmonology is recommended, and a PET/CT should be considered. 3. Findings in the esophagus could reflect esophageal variceal hemorrhage, but are indeterminate. Recommend GI consult. 4. Large volume of stool in the rectum and sigmoid, correlate with constipation. No bowel obstruction. 5. Prominent rugal folds versus focal gastric varices identified in the mid stomach. 6. 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 Vascular surgery follow-up is recommended. Images reviewed, interpreted, and dictated by Dr. Reymundo Salamanca. Transcribed by Gareth Meza. Assessment & Plan Nusrat-Prajapati tear Hematemesis Previous history of alcohol abuse - CTA abd/pelvis could not rule out esophageal bleed - Patient given Kcentra in ER prior to admission - GI consulted, underwent EGD 02/06 showing 8cm MW tear with cot evacuation, closed with 4 clips - GI advanced to full liquid diet today, continue IV PPI/carafate suspension - Hold all anticoagulation x48h AND H&H stable --Empiric antibiotic coverage with IV Rocephin 1 g daily x 7 days - Trend labs - currently H&H stable - Likely home in AM Pulmonary Lesions History of COPD - Noted on CTA of the abdomen: Multifocal probable neoplastic lesions - will obtain pulmonary consult prior to discharge to help establish follow up Mesenteric Atherosclerosis - Noted on CTA: Moderate to severe atherosclerotic disease, with moderate stenosis of the celiac, SMA, bilateral renal arteries. - Chart review indicates history of rectal bleeding with abdominal pain concerning for intermittentmesenteric ischemia - No abdominal pain reported today - Refer to vascular surgery as outpatient DVT Prophylaxis: SCDs Code Status: DNR Emergency Contact: Sandoval Torres 02/08/25 MDM: The following labs and diagnostics were personally reviewed and independently interpreted: AM labs,imaging, EGD Case discussed with: RN Parenteral controlled substances being monitored for overuse/oversedation: High risk drug therapy being monitored for toxicity: Medication changes made today: Discharge Planning: Barriers to discharge: Stable H&H, pulmonary consult Expected (tentative) discharge in 1-2 days Expected discharge disposition (home, SNF/Rehab, etc): Home Additional discharge needs or delays: TBD * Maribel Rios APRN - 02/08/2025 11:56 AM EDT Name: Iqra Balbuena Admit Date: 02/06/2025 LOS: 2 days Location:[id number] PCP on file: Provider Not In The System MD Jorje Principal Problem: Nusrat-Prajapati tear ASSESSMENT & PLAN for 02/08/2025 Principal Problem: Nusrat-Prajapati tear Active Problems: Hematemesis Assessment: Acute upper GI bleed with hematemesis. Patient is on anticoagulation with Eliquis as well as aspirin. With concurrent use of aspirin and Celebrex gastric and duodenal ulcers are also strong possibility. S/p EGD showing 8 cm long MWT in the mid and distal esophagus. -Stop all anticoagulation until hgb is stable for 48 hours. -PPI IV BID and Carafate suspension. -q8hr H/H -May begin regular diet. -GI will sign off. OK for discharge tomorrow. Trend H/H. SUBJECTIVE: Iqra Balbuena S/p EGD: EGD Impression: 8 cm long Nusrat Prajapati tear in mid and distal esophagus with active bleeding from a vessel at its distal end. The tear was closed with 4 endo clips with cessation of bleeding. Hemoglobin 8.1. No active bleeding. Review of systems: Review of Systems All other systems reviewed and are negative. OBJECTIVE: Vitals Temp: 97.9 ??F (36.6 ??C) - BP: 137/70 - Pulse: 78 - Resp: 17 - SpO2: 94 % Temp Min: 97.9 ??F (36.6 ??C) Max: 98.2 ??F (36.8 ??C) I / O I/O last 3 completed shifts: In: 864.2 [I.V.:864.2] Out: 780 [Urine:780] Weight / BMI Recent weight: @FLOWDT(14::1)@ - Body mass index is 20.78 kg/m??. Admit weight: 49.9 kg (110 lb) [place]ro[place] - Gault (eCrCl) Estimated Creatinine Clearance: 40.1 mL/min (by C-G formula based on SCr of 0.77 mg/dL). Physical Exam Vitals reviewed. Constitutional: Appearance: Normal appearance. Cardiovascular: Rate and Rhythm: Normal rate and regular rhythm. Pulmonary: Effort: Pulmonary effort is normal. Abdominal: General: Abdomen is flat. Bowel sounds are normal. Palpations: Abdomen is soft. Neurological: Mental Status: She is alert. Data: Results for orders placed or performed during the hospital encounter of 02/06/25 (from the past 24 hours) Hemoglobin and hematocrit Status: Abnormal Collection Time: 02/07/25 5:51 PM Result Value Ref Range Hemoglobin 8.3 (L) 11.2 - 15.7 GM/DL Hematocrit 26.9 (L) 34.1 - 44.9 % CBC with automated diff Status: Abnormal Collection Time: 02/08/25 4:41 AM Result Value Ref Range WBC 7.7 4.0 - 10.0 K/??L RBC 2.75 (L) 3.93 - 5.22 M/??L Hemoglobin 8.1 (L) 11.2 - 15.7 GM/DL Hematocrit 25.8 (L) 34.1 - 44.9 % MCV 94 79 - 95 fL MCH 29.5 25.6 - 32.2 pg MCHC 31.4 (L) 32.2 - 35.5 GM/DL RDW 14.2 11.7 - 14.4 % Platelets 315 140 - 375 K/CU MM MPV 9.0 (L) 9.4 - 12.3 fL NRBC Absolute <0.01 0 - 0.012 K/ul Magnesium Status: Normal Collection Time: 02/08/25 4:41 AM Result Value Ref Range Magnesium 1.6 1.6 - 2.6 mg/dL Comprehensive metabolic panel Status: Abnormal Collection Time: 02/08/25 4:41 AM Result Value Ref Range Sodium 135 (L) 136 - 145 meq/L Potassium 3.7 3.4 - 5.1 meq/L Chloride 98 98 - 112 meq/L CO2 29 22 - 29 meq/L Calcium 9.1 8.4 - 10.2 mg/dL Glucose 85 82 - 115 mg/dL BUN 8.3 (L) 9.8 - 20.1 mg/dL Creatinine 0.77 0.57 - 1.11 mg/dL BUN/Creatinine 11 8 - 20 eGFR (mL/min/1.73m2) 84 >=60 mL/min/1.73m2 Albumin 2.3 (L) 3.5 - 5.0 g/dL Alkaline Phosphatase 38 (L) 40 - 150 U/L ALT <7 <=34 U/L AST 11 11 - 34 U/L Total Bilirubin 0.2 0.2 - 1.2 mg/dL Protein, Total 5.0 (L) 6.4 - 8.3 g/dL Globulin 2.7 2.5 - 4.1 g/dL Anion Gap 12 4 - 12 A/G Ratio 0.9 0.7 - 1.9 Osmolality Calc 267.8 mOsm/kg Manual Differential Status: Abnormal Collection Time: 02/08/25 4:41 AM Result Value Ref Range Total Counted 100 % Neutros (manual) 70 (H) 50 - 65 % % Bands (manual) 2 % % Lymphs (manual) 23 (L) 24 - 44 % % Monos (manual) 1 (L) 4 - 5 % % Eos (manual) 4 (H) 0 - 3 % RBC Morphology abnormal (A) Normal Platelet Estimate Adequate Adequate Hypochromia 1+ Ovalocytes 1+ ANC# 5.54 K/??L Radiology Results (last 3 days) Procedure Component Value Units Date/Time CTA chest [[id number]] Collected: 02/06/252134 Order Status: Completed Updated: 02/06/252155 Narrative: CTA/PE PROTOCOL CHEST CT AND CTA SCAN OF THE ABDOMEN AND PELVIS WITH CONTRAST: 02/06/2025 7:11 PM CLINICAL INDICATION: Concern for esophageal varices. Hemoptysis/hematemesis/bleeding. TECHNIQUE: Multiple axial CT images were obtained through the chest following IV contrast utilizing a CTA/PE protocol. 3D/MIP Reconstruction images were also performed. Axial CTA images were also obtained from the lung bases to the pubic symphysis following IV contrast administration according to the CTA abdomen and pelvis protocol. Coronal and sagittal reformatted images were generated from the axial data set and provided for interpretation. These studies were performed with techniques to keep radiation doses as low as reasonably achievable, (ALARA). Individualized dose reduction techniques using automated exposure control or adjustment of mA and/or kV according to the patient size were employed. COMPARISON: None. FINDINGS: PA's and Aorta: No pulmonary embolus. No pulmonary embolism or aneurysm. Thoracic aorta is normal in caliber. Moderate to severe atherosclerotic calcifications in the aorta and major branch vessels. Multifocal coronary artery calcifications. Heart/mediastinum: No evidence for right heart strain. No pericardial effusion. The heart is normal in size. Lungs/Pleura: There is a 3.0 cm spiculated mass in the left lung apex (image 42, series 2). There are multiple spiculated nodules in the left upper lobe on image 63 of series 2. A spiculated nodule measuring 25 mm in the posterior right upper lobe on image 78, series 2. Spiculated nodule measuring 27 mm in the left lower lobe. Spiculated 18 mm nodule in the left lower lobe on image 139. There is a small area of consolidative changes in the lingula. Numerous shotty lymph nodes are in the mediastinum and hilar regions. There is mural thickening throughout the visualized esophagus which is more pronounced distally. There is contrast density layering dependently in the distal esophagus (image 113-129) disease which is indeterminate without multiple contrast phase series. This could represent variceal hemorrhage. There is prominent rugal folds/and/or vessels in the posterior proximal stomach. These could reflect gastric varices. No pneumothorax or pleural effusion. Lymph nodes: No pathologically enlarged thoracic lymph nodes. Chest wall: No acute findings. Bones: No acute fracture. ABDOMEN/PELVIS: VASCULAR: Moderate to severe atherosclerotic changes are noted in the aorta and major branch vessels. There is moderate atherosclerotic calcification at the origin of the celiac and the SMA. There is moderate stenosis at the origin of both renal arteries. The TERRY appears patent. The abdominal aorta is normal in caliber. . The common, internal and external iliac arteries are patent. The visualized portions of the common, superficial and deep femoral arteries are patent and unremarkable. The superior mesenteric vein, splenic vein and main portal veins are patent. The inferior vena cava is unremarkable. Liver, gallbladder and bile ducts: Early morphologic features of cirrhosis are noted. Unremarkable gallbladder. No significant biliary ductal dilatation. Adrenal glands: The adrenal glands are morphologically unremarkable without suspicious lesion. Kidneys, ureters and urinary bladder: There are multiple focal renal cysts. No suspicious renal lesions. No hydronephrosis. Unremarkable urinary bladder. Spleen: The spleen is normal in size. Pancreas: The pancreas is unremarkable. Gastrointestinal system and mesentery: There is prominent rugal folds/and/or vessels in the posterior proximal stomach. These could reflect gastric varices. There is a large volume of stool within the sigmoid and rectum. There is a small to medium-sized hiatal hernia containing a portion of the stomach. There is no evidence of bowel obstruction. The appendix is visualized and unremarkable. No significant mesenteric inflammation. Lymph nodes: No pathologically enlarged abdominal or pelvic lymph nodes are present. Peritoneum: No free intraperitoneal fluid or pneumoperitoneum. Pelvic viscera: No acute findings. Genital organs are unremarkable. No findings to suggest ovarian torsion. Body wall: No acute findings. No significant body wall hernias. Bones: No acute fracture. Impression: 1. No pulmonary embolus, aortic aneurysm or dissection. 2. Multifocal probable neoplastic lesions, as described above. Follow-up with pulmonology is recommended, and a PET/CT should be considered. 3. Findings in the esophagus could reflect esophageal variceal hemorrhage, but are indeterminate. Recommend GI consult. 4. Large volume of stool in the rectum and sigmoid, correlate with constipation. No bowel obstruction. 5. Prominent rugal folds versus focal gastric varices identified in the mid stomach. 6. 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 Vascular surgery follow-up is recommended. Images reviewed, interpreted, and dictated by Dr. Reymundo Salamanca. Transcribed by Gareth Meza. CTA abdomen & pelvis [[id number]] Collected: 02/06/252134 Order Status: Completed Updated: 02/06/252155 Narrative: CTA/PE PROTOCOL CHEST CT AND CTA SCAN OF THE ABDOMEN AND PELVIS WITH CONTRAST: 02/06/2025 7:11 PM CLINICAL INDICATION: Concern for esophageal varices. Hemoptysis/hematemesis/bleeding. TECHNIQUE: Multiple axial CT images were obtained through the chest following IV contrast utilizing a CTA/PE protocol. 3D/MIP Reconstruction images were also performed. Axial CTA images were also obtained from the lung bases to the pubic symphysis following IV contrast administration according to the CTA abdomen and pelvis protocol. Coronal and sagittal reformatted images were generated from the axial data set and provided for interpretation. These studies were performed with techniques to keep radiation doses as low as reasonably achievable, (ALARA). Individualized dose reduction techniques using automated exposure control or adjustment of mA and/or kV according to the patient size were employed. COMPARISON: None. FINDINGS: PA's and Aorta: No pulmonary embolus. No pulmonary embolism or aneurysm. Thoracic aorta is normal in caliber. Moderate to severe atherosclerotic calcifications in the aorta and major branch vessels. Multifocal coronary artery calcifications. Heart/mediastinum: No evidence for right heart strain. No pericardial effusion. The heart is normal in size. Lungs/Pleura: There is a 3.0 cm spiculated mass in the left lung apex (image 42, series 2). There are multiple spiculated nodules in the left upper lobe on image 63 of series 2. A spiculated nodule measuring 25 mm in the posterior right upper lobe on image 78, series 2. Spiculated nodule measuring 27 mm in the left lower lobe. Spiculated 18 mm nodule in the left lower lobe on image 139. There is a small area of consolidative changes in the lingula. Numerous shotty lymph nodes are in the mediastinum and hilar regions. There is mural thickening throughout the visualized esophagus which is more pronounced distally. There is contrast density layering dependently in the distal esophagus (image 113-129) disease which is indeterminate without multiple contrast phase series. This could represent variceal hemorrhage. There is prominent rugal folds/and/or vessels in the posterior proximal stomach. These could reflect gastric varices. No pneumothorax or pleural effusion. Lymph nodes: No pathologically enlarged thoracic lymph nodes. Chest wall: No acute findings. Bones: No acute fracture. ABDOMEN/PELVIS: VASCULAR: Moderate to severe atherosclerotic changes are noted in the aorta and major branch vessels. There is moderate atherosclerotic calcification at the origin of the celiac and the SMA. There is moderate stenosis at the origin of both renal arteries. The TERRY appears patent. The abdominal aorta is normal in caliber. . The common, internal and external iliac arteries are patent. The visualized portions of the common, superficial and deep femoral arteries are patent and unremarkable. The superior mesenteric vein, splenic vein and main portal veins are patent. The inferior vena cava is unremarkable. Liver, gallbladder and bile ducts: Early morphologic features of cirrhosis are noted. Unremarkable gallbladder. No significant biliary ductal dilatation. Adrenal glands: The adrenal glands are morphologically unremarkable without suspicious lesion. Kidneys, ureters and urinary bladder: There are multiple focal renal cysts. No suspicious renal lesions. No hydronephrosis. Unremarkable urinary bladder. Spleen: The spleen is normal in size. Pancreas: The pancreas is unremarkable. Gastrointestinal system and mesentery: There is prominent rugal folds/and/or vessels in the posterior proximal stomach. These could reflect gastric varices. There is a large volume of stool within the sigmoid and rectum. There is a small to medium-sized hiatal hernia containing a portion of the stomach. There is no evidence of bowel obstruction. The appendix is visualized and unremarkable. No significant mesenteric inflammation. Lymph nodes: No pathologically enlarged abdominal or pelvic lymph nodes are present. Peritoneum: No free intraperitoneal fluid or pneumoperitoneum. Pelvic viscera: No acute findings. Genital organs are unremarkable. No findings to suggest ovarian torsion. Body wall: No acute findings. No significant body wall hernias. Bones: No acute fracture. Impression: 1. No pulmonary embolus, aortic aneurysm or dissection. 2. Multifocal probable neoplastic lesions, as described above. Follow-up with pulmonology is recommended, and a PET/CT should be considered. 3. Findings in the esophagus could reflect esophageal variceal hemorrhage, but are indeterminate. Recommend GI consult. 4. Large volume of stool in the rectum and sigmoid, correlate with constipation. No bowel obstruction. 5. Prominent rugal folds versus focal gastric varices identified in the mid stomach. 6. 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 Vascular surgery follow-up is recommended. Images reviewed, interpreted, and dictated by Dr. Reymundo Salamanca. Transcribed by Gareth Meza. Electronically signed by: Maribel Rios APRN, 02/08/2025 at 7:50 AM Cosigned by Marisa Garcia MD at 02/08/2025 4:21 PM EDT * Nara Aguilar, [employer] - 02/07/2025 3:35 PM EDT [facility] - PROGRESS NOTE Date of Service: 02/07/25 Subjective Seen today in her room. Feeling better, no vomiting. Denies chest pain SOB. Glad GI cleared her to eat. Otherwise has no complaints. Comprehensive ROS is otherwise negative except as above. Objective Current Facility-Administered Medications: cefTRIAXone (ROCEPHIN) 1 g in sodium chloride 0.9 % (NS) 50 mL LANA IVPB, 1 g, intravenous, Q24H, Von Sloan PA-C, IVPB Stopped at 02/07/25 0930 hydrALAZINE (APRESOLINE) injection 5 mg, 5 mg, intravenous, Q6H PRN, Von Sloan PA-C magnesium sulfate IVPB 2 g in sterile water 50 mL (premix), 2 g, intravenous, Daily PRN, Von Sloan PA-C magnesium sulfate IVPB 2 g in sterile water 50 mL (premix), 2 g, intravenous, BID PRN, Von Sloan PA-C ondansetron (ZOFRAN-ODT) disintegrating tablet 4 mg, 4 mg, oral, Q8H PRN OR ondansetron (ZOFRAN) injection 4 mg, 4 mg, intravenous, Q8H PRN, Von Sloan PA-C pantoprazole (PROTONIX) injection 40 mg, 40 mg, intravenous, BID, Marisa Garcia MD, 40 mg at 02/07/25 0900 potassium chloride IVPB 10 mEq in 100 mL sterile water (premix), 10 mEq, intravenous, Q1H PRN, Von Sloan PA-C sodium chloride 0.9 % infusion, 50 mL/hr, intravenous, Continuous, Marisa Garcia MD, Last Rate: 50 mL/hr at 02/07/25 0044, 50 mL/hr at 02/07/25 0044 sucralfate (CARAFATE) 100 mg/mL suspension 1 g, 1 g, oral, Q6H VICENTE, Marisa Garcia MD, 1 g at 02/07/25 0623 Last Recorded Vitals Blood pressure (!) 147/65, pulse 77, temperature 97.7 ??F (36.5 ??C), temperature source Oral, resp. rate 18, height 1.549 m (5' 1 ), weight 49.9 kg (110 lb), SpO2 96%. Physical Exam GENERAL: Alert, oriented. No acute distress. Conversant. HEENT: Normocephalic, atraumatic. PERRLA, anicteric. Nares patent. OMM. Speech clear, tongue and uvula midline. Edentulous. CV: Regular rate and rhythm, no murmur, no gallop. No carotid bruits. No peripheral edema. Normal peripheral perfusion. PULM: Clear to auscultation bilaterally, no wheeze, no rhonchi. Respirations regular and unlabored. GI: Abdomen soft, nontender, nondistended. Positive bowel sounds. No masses. No hernia. : External exam not performed. MS: Moves all extremities. Strength equal bilaterally to upper and lower extremities. Gait not assessed. NEURO: CN 2-12 grossly intact. No focal deficits. No tremors. SKIN: Warm, dry, intact. PSYCH: Affect appropriate, mood normal. Cooperative. I personally reviewed and interpreted the following pertinent laboratory and diagnostic studies: Labs: Results for orders placed or performed during the hospital encounter of 02/06/25 (from the past 24 hours) ECG 12 lead Status: None (In process) Collection Time: 02/06/25 5:41 PM Result Value Ref Range VENTRICULAR RATE EKG/MIN 67 BPM ATRIAL RATE (MCT) 69 BPM AR Interval 152 ms QRS-INTERVAL (MSEC) 80 ms QT Interval 386 ms QTC Interval 407 ms P Bennet 57 degrees R AXIS (MCT) -71 degrees T Wave Bennet 40 degrees Recluse Diagnosis Age and gender specific ECG analysis Normal sinus rhythm Left axis deviation Abnormal ECG When compared with ECG of 06-OCT-2024 19:45, Significant changes have occurred Comprehensive metabolic panel Status: Abnormal Collection Time: 02/06/25 6:23 PM Result Value Ref Range Sodium 137 136 - 145 meq/L Potassium 5.1 3.4 - 5.1 meq/L Chloride 93 (L) 98 - 112 meq/L CO2 36 (H) 22 - 29 meq/L Calcium 11.6 (H) 8.4 - 10.2 mg/dL Glucose 104 82 - 115 mg/dL BUN 13.4 9.8 - 20.1 mg/dL Creatinine 1.00 0.57 - 1.11 mg/dL BUN/Creatinine 13 8 - 20 eGFR (mL/min/1.73m2) 61 >=60 mL/min/1.73m2 Albumin 2.9 (L) 3.5 - 5.0 g/dL Alkaline Phosphatase 53 40 - 150 U/L ALT 8 <=34 U/L AST 14 11 - 34 U/L Total Bilirubin 0.2 0.2 - 1.2 mg/dL Protein, Total 6.5 6.4 - 8.3 g/dL Globulin 3.6 2.5 - 4.1 g/dL Anion Gap 13 (H) 4 - 12 A/G Ratio 0.8 0.7 - 1.9 Osmolality Calc 274.4 mOsm/kg Magnesium Status: Normal Collection Time: 02/06/25 6:23 PM Result Value Ref Range Magnesium 1.9 1.6 - 2.6 mg/dL High Sensitivity Troponin I Status: Normal Collection Time: 02/06/25 6:23 PM Result Value Ref Range Troponin I High Sensitivity (pg/mL) 12.2 <=14 pg/mL Prothrombin time/INR Status: Normal Collection Time: 02/06/25 6:23 PM Result Value Ref Range Protime 10.4 9.0 - 12.0 seconds INR 0.93 0.80 - 1.10 aPTT Status: Abnormal Collection Time: 02/06/25 6:23 PM Result Value Ref Range aPTT 32.8 (H) 22.0 - 32.0 seconds Type and Screen Status: None Collection Time: 02/06/25 6:23 PM Result Value Ref Range ABO/Rh O Positive Antibody Screen Negative HISTCHK HIST CHECK PERFORMED CBC with Auto Diff Status: Abnormal Collection Time: 02/06/25 6:25 PM Result Value Ref Range WBC 11.1 (H) 4.0 - 10.0 K/??L RBC 3.47 (L) 3.93 - 5.22 M/??L Hemoglobin 10.2 (L) 11.2 - 15.7 GM/DL Hematocrit 32.6 (L) 34.1 - 44.9 % MCV 94 79 - 95 fL MCH 29.4 25.6 - 32.2 pg MCHC 31.3 (L) 32.2 - 35.5 GM/DL RDW 14.6 (H) 11.7 - 14.4 % Platelets 414 (H) 140 - 375 K/CU MM MPV 9.3 (L) 9.4 - 12.3 fL % Neutros 68 34 - 71 % % Lymphs 23 19 - 52 % % Monos 7 5 - 13 % % Eos 2 1 - 6 % % Baso 1 0 - 1 % NRBC Absolute <0.01 0 - 0.012 K/ul # Neutros 7.57 (H) 1.56 - 6.13 K/??L # Lymphs 2.55 1.18 - 3.74 K/??L # Monos 0.72 0.24 - 0.86 K/??L # Eos 0.18 0.04 - 0.36 K/??L # Baso 0.07 0.01 - 0.08 K/??L Immature Granulocytes-Relative 0.40 0.01 - 0.43 % # IG 0.04 (H) 0.00 - 0.03 K/uL Hemoglobin and hematocrit Status: Abnormal Collection Time: 02/06/25 8:22 PM Result Value Ref Range Hemoglobin 9.0 (L) 11.2 - 15.7 GM/DL Hematocrit 29.3 (L) 34.1 - 44.9 % CBC - Hemogram (-BKR) Status: Abnormal Collection Time: 02/07/25 5:18 AM Result Value Ref Range WBC 11.6 (H) 4.0 - 10.0 K/??L RBC 3.14 (L) 3.93 - 5.22 M/??L Hemoglobin 9.1 (L) 11.2 - 15.7 GM/DL Hematocrit 30.4 (L) 34.1 - 44.9 % MCV 97 (H) 79 - 95 fL MCH 29.0 25.6 - 32.2 pg MCHC 29.9 (L) 32.2 - 35.5 GM/DL RDW 14.5 (H) 11.7 - 14.4 % Platelets 340 140 - 375 K/CU MM MPV 9.1 (L) 9.4 - 12.3 fL Basic Metabolic Panel Status: Abnormal Collection Time: 02/07/25 5:18 AM Result Value Ref Range Sodium 136 136 - 145 meq/L Potassium 4.9 3.4 - 5.1 meq/L CO2 29 22 - 29 meq/L Chloride 99 98 - 112 meq/L Glucose 85 82 - 115 mg/dL BUN 13.0 9.8 - 20.1 mg/dL Creatinine 0.84 0.57 - 1.11 mg/dL BUN/Creatinine 15 8 - 20 Calcium 10.0 8.4 - 10.2 mg/dL Anion Gap 13 (H) 4 - 12 eGFR (mL/min/1.73m2) 75 >=60 mL/min/1.73m2 Osmolality Calc 271.3 mOsm/kg CTA chest, CTA abdomen & pelvis Narrative: CTA/PE PROTOCOL CHEST CT AND CTA SCAN OF THE ABDOMEN AND PELVIS WITH CONTRAST: 02/06/2025 7:11 PM CLINICAL INDICATION: Concern for esophageal varices. Hemoptysis/hematemesis/bleeding. TECHNIQUE: Multiple axial CT images were obtained through the chest following IV contrast utilizing a CTA/PE protocol. 3D/MIP Reconstruction images were also performed. Axial CTA images were also obtained from the lung bases to the pubic symphysis following IV contrast administration according to the CTA abdomen and pelvis protocol. Coronal and sagittal reformatted images were generated from the axial data set and provided for interpretation. These studies were performed with techniques to keep radiation doses as low as reasonably achievable, (ALARA). Individualized dose reduction techniques using automated exposure control or adjustment of mA and/or kV according to the patient size were employed. COMPARISON: None. FINDINGS: PA's and Aorta: No pulmonary embolus. No pulmonary embolism or aneurysm. Thoracic aorta is normal in caliber. Moderate to severe atherosclerotic calcifications in the aorta and major branch vessels. Multifocal coronary artery calcifications. Heart/mediastinum: No evidence for right heart strain. No pericardial effusion. The heart is normal in size. Lungs/Pleura: There is a 3.0 cm spiculated mass in the left lung apex (image 42, series 2). There are multiple spiculated nodules in the left upper lobe on image 63 of series 2. A spiculated nodule measuring 25 mm in the posterior right upper lobe on image 78, series 2. Spiculated nodule measuring 27 mm in the left lower lobe. Spiculated 18 mm nodule in the left lower lobe on image 139. There is a small area of consolidative changes in the lingula. Numerous shotty lymph nodes are in the mediastinum and hilar regions. There is mural thickening throughout the visualized esophagus which is more pronounced distally. There is contrast density layering dependently in the distal esophagus (image 113-129) disease which is indeterminate without multiple contrast phase series. This could represent variceal hemorrhage. There is prominent rugal folds/and/or vessels in the posterior proximal stomach. These could reflect gastric varices. No pneumothorax or pleural effusion. Lymph nodes: No pathologically enlarged thoracic lymph nodes. Chest wall: No acute findings. Bones: No acute fracture. ABDOMEN/PELVIS: VASCULAR: Moderate to severe atherosclerotic changes are noted in the aorta and major branch vessels. There is moderate atherosclerotic calcification at the origin of the celiac and the SMA. There is moderate stenosis at the origin of both renal arteries. The TERRY appears patent. The abdominal aorta is normal in caliber. . The common, internal and external iliac arteries are patent. The visualized portions of the common, superficial and deep femoral arteries are patent and unremarkable. The superior mesenteric vein, splenic vein and main portal veins are patent. The inferior vena cava is unremarkable. Liver, gallbladder and bile ducts: Early morphologic features of cirrhosis are noted. Unremarkable gallbladder. No significant biliary ductal dilatation. Adrenal glands: The adrenal glands are morphologically unremarkable without suspicious lesion. Kidneys, ureters and urinary bladder: There are multiple focal renal cysts. No suspicious renal lesions. No hydronephrosis. Unremarkable urinary bladder. Spleen: The spleen is normal in size. Pancreas: The pancreas is unremarkable. Gastrointestinal system and mesentery: There is prominent rugal folds/and/or vessels in the posterior proximal stomach. These could reflect gastric varices. There is a large volume of stool within the sigmoid and rectum. There is a small to medium-sized hiatal hernia containing a portion of the stomach. There is no evidence of bowel obstruction. The appendix is visualized and unremarkable. No significant mesenteric inflammation. Lymph nodes: No pathologically enlarged abdominal or pelvic lymph nodes are present. Peritoneum: No free intraperitoneal fluid or pneumoperitoneum. Pelvic viscera: No acute findings. Genital organs are unremarkable. No findings to suggest ovarian torsion. Body wall: No acute findings. No significant body wall hernias. Bones: No acute fracture. Impression: 1. No pulmonary embolus, aortic aneurysm or dissection. 2. Multifocal probable neoplastic lesions, as described above. Follow-up with pulmonology is recommended, and a PET/CT should be considered. 3. Findings in the esophagus could reflect esophageal variceal hemorrhage, but are indeterminate. Recommend GI consult. 4. Large volume of stool in the rectum and sigmoid, correlate with constipation. No bowel obstruction. 5. Prominent rugal folds versus focal gastric varices identified in the mid stomach. 6. 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 Vascular surgery follow-up is recommended. Images reviewed, interpreted, and dictated by Dr. Reymundo Salamanca. Transcribed by Gareth Meza. Assessment & Plan Nusrat-Prajapati tear Hematemesis Previous history of alcohol abuse - CTA abd/pelvis could not rule out esophageal bleed - Patient given Kcentra in ER prior to admission - GI consulted, underwent EGD 02/06 showing 8cm MW tear with cot evacuation, closed with 4 clips - GI advanced to full liquid diet today, continue IV PPI/carafate suspension - Hold all anticoagulation x48h AND H&H stable --Empiric antibiotic coverage with IV Rocephin 1 g daily x 7 days - Trend labs Pulmonary Lesions History of COPD - Noted on CTA of the abdomen: Multifocal probable neoplastic lesions - Will discuss imaging with pulmonary Mesenteric Atherosclerosis - Noted on CTA: Moderate to severe atherosclerotic disease, with moderate stenosis of the celiac, SMA, bilateral renal arteries. - Chart review indicates history of rectal bleeding with abdominal pain concerning for intermittentmesenteric ischemia - No abdominal pain reported today - Refer to vascular surgery as outpatient DVT Prophylaxis: SCDs Code Status: DNR Emergency Contact: Sandoval Torres 02/07/25 MDM: The following labs and diagnostics were personally reviewed and independently interpreted: AM labs,imaging, EGD Case discussed with: RN Parenteral controlled substances being monitored for overuse/oversedation: High risk drug therapy being monitored for toxicity: Medication changes made today: Discharge Planning: Barriers to discharge: Stable H&H Expected (tentative) discharge in 2-3 days Expected discharge disposition (home, SNF/Rehab, etc): Home Additional discharge needs or delays: TBD * Maribel Rios APRN - 02/07/2025 7:50 AM EDT Name: Iqra Balbuena Admit Date: 02/06/2025 LOS: 1 days Location:[address] [place] [address] PCP on file: Provider Not In The System MD Jorje Principal Problem: Nusrat-Prajapati tear ASSESSMENT & PLAN for 02/07/2025 Principal Problem: Nusrat-Prajapati tear Active Problems: Hematemesis Assessment: Acute upper GI bleed with hematemesis. Patient is on anticoagulation with Eliquis as well as aspirin. With concurrent use of aspirin and Celebrex gastric and duodenal ulcers are also strong possibility. S/p EGD showing 8 cm long MWT in the mid and distal esophagus. -Stop all anticoagulation until hgb is stable for 48 hours. -PPI IV BID and Carafate suspension. -q8hr H/H -May begin Full liquids. SUBJECTIVE: Iqra Sree S/p EGD: EGD Impression: 8 cm long Nusrat Prajapati tear in mid and distal esophagus with active bleeding from a vessel at its distal end. The tear was closed with 4 endo clips with cessation of bleeding. Hemoglobin 9.1. Review of systems: Review of Systems All other systems reviewed and are negative. OBJECTIVE: Vitals Temp: 97.3 ??F (36.3 ??C) - BP: 106/70 - Pulse: 67 - Resp: 22 - SpO2: 97 % Temp Min: 97.3 ??F (36.3 ??C) Max: 98.2 ??F (36.8 ??C) I / O No intake/output data recorded. Weight / BMI Recent weight: @FLOWDT(14::1)@ - Body mass index is 20.78 kg/m??. Admit weight: 49.9 kg (110 lb) [place]roft - Gault (eCrCl) Estimated Creatinine Clearance: 40.1 mL/min (by C-G formula based on SCr of 0.84 mg/dL). Physical Exam Vitals reviewed. Constitutional: Appearance: Normal appearance. Cardiovascular: Rate and Rhythm: Normal rate and regular rhythm. Pulmonary: Effort: Pulmonary effort is normal. Abdominal: General: Abdomen is flat. Bowel sounds are normal. Palpations: Abdomen is soft. Neurological: Mental Status: She is alert. Data: Results for orders placed or performed during the hospital encounter of 02/06/25 (from the past 24 hours) ECG 12 lead Status: None (In process) Collection Time: 02/06/25 5:41 PM Result Value Ref Range VENTRICULAR RATE EKG/MIN 67 BPM ATRIAL RATE (MCT) 69 BPM AR Interval 152 ms QRS-INTERVAL (MSEC) 80 ms QT Interval 386 ms QTC Interval 407 ms P Bennet 57 degrees R AXIS (MCT) -71 degrees T Wave Bennet 40 degrees Recluse Diagnosis Age and gender specific ECG analysis Normal sinus rhythm Left axis deviation Abnormal ECG When compared with ECG of 06-OCT-2024 19:45, Significant changes have occurred Comprehensive metabolic panel Status: Abnormal Collection Time: 02/06/25 6:23 PM Result Value Ref Range Sodium 137 136 - 145 meq/L Potassium 5.1 3.4 - 5.1 meq/L Chloride 93 (L) 98 - 112 meq/L CO2 36 (H) 22 - 29 meq/L Calcium 11.6 (H) 8.4 - 10.2 mg/dL Glucose 104 82 - 115 mg/dL BUN 13.4 9.8 - 20.1 mg/dL Creatinine 1.00 0.57 - 1.11 mg/dL BUN/Creatinine 13 8 - 20 eGFR (mL/min/1.73m2) 61 >=60 mL/min/1.73m2 Albumin 2.9 (L) 3.5 - 5.0 g/dL Alkaline Phosphatase 53 40 - 150 U/L ALT 8 <=34 U/L AST 14 11 - 34 U/L Total Bilirubin 0.2 0.2 - 1.2 mg/dL Protein, Total 6.5 6.4 - 8.3 g/dL Globulin 3.6 2.5 - 4.1 g/dL Anion Gap 13 (H) 4 - 12 A/G Ratio 0.8 0.7 - 1.9 Osmolality Calc 274.4 mOsm/kg Magnesium Status: Normal Collection Time: 02/06/25 6:23 PM Result Value Ref Range Magnesium 1.9 1.6 - 2.6 mg/dL High Sensitivity Troponin I Status: Normal Collection Time: 02/06/25 6:23 PM Result Value Ref Range Troponin I High Sensitivity (pg/mL) 12.2 <=14 pg/mL Prothrombin time/INR Status: Normal Collection Time: 02/06/25 6:23 PM Result Value Ref Range Protime 10.4 9.0 - 12.0 seconds INR 0.93 0.80 - 1.10 aPTT Status: Abnormal Collection Time: 02/06/25 6:23 PM Result Value Ref Range aPTT 32.8 (H) 22.0 - 32.0 seconds Type and Screen Status: None Collection Time: 02/06/25 6:23 PM Result Value Ref Range ABO/Rh O Positive Antibody Screen Negative HISTCHK HIST CHECK PERFORMED CBC with Auto Diff Status: Abnormal Collection Time: 02/06/25 6:25 PM Result Value Ref Range WBC 11.1 (H) 4.0 - 10.0 K/??L RBC 3.47 (L) 3.93 - 5.22 M/??L Hemoglobin 10.2 (L) 11.2 - 15.7 GM/DL Hematocrit 32.6 (L) 34.1 - 44.9 % MCV 94 79 - 95 fL MCH 29.4 25.6 - 32.2 pg MCHC 31.3 (L) 32.2 - 35.5 GM/DL RDW 14.6 (H) 11.7 - 14.4 % Platelets 414 (H) 140 - 375 K/CU MM MPV 9.3 (L) 9.4 - 12.3 fL % Neutros 68 34 - 71 % % Lymphs 23 19 - 52 % % Monos 7 5 - 13 % % Eos 2 1 - 6 % % Baso 1 0 - 1 % NRBC Absolute <0.01 0 - 0.012 K/ul # Neutros 7.57 (H) 1.56 - 6.13 K/??L # Lymphs 2.55 1.18 - 3.74 K/??L # Monos 0.72 0.24 - 0.86 K/??L # Eos 0.18 0.04 - 0.36 K/??L # Baso 0.07 0.01 - 0.08 K/??L Immature Granulocytes-Relative 0.40 0.01 - 0.43 % # IG 0.04 (H) 0.00 - 0.03 K/uL Hemoglobin and hematocrit Status: Abnormal Collection Time: 02/06/25 8:22 PM Result Value Ref Range Hemoglobin 9.0 (L) 11.2 - 15.7 GM/DL Hematocrit 29.3 (L) 34.1 - 44.9 % CBC - Hemogram (SJ-BKR) Status: Abnormal Collection Time: 02/07/25 5:18 AM Result Value Ref Range WBC 11.6 (H) 4.0 - 10.0 K/??L RBC 3.14 (L) 3.93 - 5.22 M/??L Hemoglobin 9.1 (L) 11.2 - 15.7 GM/DL Hematocrit 30.4 (L) 34.1 - 44.9 % MCV 97 (H) 79 - 95 fL MCH 29.0 25.6 - 32.2 pg MCHC 29.9 (L) 32.2 - 35.5 GM/DL RDW 14.5 (H) 11.7 - 14.4 % Platelets 340 140 - 375 K/CU MM MPV 9.1 (L) 9.4 - 12.3 fL Basic Metabolic Panel Status: Abnormal Collection Time: 02/07/25 5:18 AM Result Value Ref Range Sodium 136 136 - 145 meq/L Potassium 4.9 3.4 - 5.1 meq/L CO2 29 22 - 29 meq/L Chloride 99 98 - 112 meq/L Glucose 85 82 - 115 mg/dL BUN 13.0 9.8 - 20.1 mg/dL Creatinine 0.84 0.57 - 1.11 mg/dL BUN/Creatinine 15 8 - 20 Calcium 10.0 8.4 - 10.2 mg/dL Anion Gap 13 (H) 4 - 12 eGFR (mL/min/1.73m2) 75 >=60 mL/min/1.73m2 Osmolality Calc 271.3 mOsm/kg Radiology Results (last 3 days) Procedure Component Value Units Date/Time CTA chest [[id number]] Collected: 02/06/252134 Order Status: Completed Updated: 02/06/252155 Narrative: CTA/PE PROTOCOL CHEST CT AND CTA SCAN OF THE ABDOMEN AND PELVIS WITH CONTRAST: 02/06/2025 7:11 PM CLINICAL INDICATION: Concern for esophageal varices. Hemoptysis/hematemesis/bleeding. TECHNIQUE: Multiple axial CT images were obtained through the chest following IV contrast utilizing a CTA/PE protocol. 3D/MIP Reconstruction images were also performed. Axial CTA images were also obtained from the lung bases to the pubic symphysis following IV contrast administration according to the CTA abdomen and pelvis protocol. Coronal and sagittal reformatted images were generated from the axial data set and provided for interpretation. These studies were performed with techniques to keep radiation doses as low as reasonably achievable, (ALARA). Individualized dose reduction techniques using automated exposure control or adjustment of mA and/or kV according to the patient size were employed. COMPARISON: None. FINDINGS: PA's and Aorta: No pulmonary embolus. No pulmonary embolism or aneurysm. Thoracic aorta is normal in caliber. Moderate to severe atherosclerotic calcifications in the aorta and major branch vessels. Multifocal coronary artery calcifications. Heart/mediastinum: No evidence for right heart strain. No pericardial effusion. The heart is normal in size. Lungs/Pleura: There is a 3.0 cm spiculated mass in the left lung apex (image 42, series 2). There are multiple spiculated nodules in the left upper lobe on image 63 of series 2. A spiculated nodule measuring 25 mm in the posterior right upper lobe on image 78, series 2. Spiculated nodule measuring 27 mm in the left lower lobe. Spiculated 18 mm nodule in the left lower lobe on image 139. There is a small area of consolidative changes in the lingula. Numerous shotty lymph nodes are in the mediastinum and hilar regions. There is mural thickening throughout the visualized esophagus which is more pronounced distally. There is contrast density layering dependently in the distal esophagus (image 113-129) disease which is indeterminate without multiple contrast phase series. This could represent variceal hemorrhage. There is prominent rugal folds/and/or vessels in the posterior proximal stomach. These could reflect gastric varices. No pneumothorax or pleural effusion. Lymph nodes: No pathologically enlarged thoracic lymph nodes. Chest wall: No acute findings. Bones: No acute fracture. ABDOMEN/PELVIS: VASCULAR: Moderate to severe atherosclerotic changes are noted in the aorta and major branch vessels. There is moderate atherosclerotic calcification at the origin of the celiac and the SMA. There is moderate stenosis at the origin of both renal arteries. The TERRY appears patent. The abdominal aorta is normal in caliber. . The common, internal and external iliac arteries are patent. The visualized portions of the common, superficial and deep femoral arteries are patent and unremarkable. The superior mesenteric vein, splenic vein and main portal veins are patent. The inferior vena cava is unremarkable. Liver, gallbladder and bile ducts: Early morphologic features of cirrhosis are noted. Unremarkable gallbladder. No significant biliary ductal dilatation. Adrenal glands: The adrenal glands are morphologically unremarkable without suspicious lesion. Kidneys, ureters and urinary bladder: There are multiple focal renal cysts. No suspicious renal lesions. No hydronephrosis. Unremarkable urinary bladder. Spleen: The spleen is normal in size. Pancreas: The pancreas is unremarkable. Gastrointestinal system and mesentery: There is prominent rugal folds/and/or vessels in the posterior proximal stomach. These could reflect gastric varices. There is a large volume of stool within the sigmoid and rectum. There is a small to medium-sized hiatal hernia containing a portion of the stomach. There is no evidence of bowel obstruction. The appendix is visualized and unremarkable. No significant mesenteric inflammation. Lymph nodes: No pathologically enlarged abdominal or pelvic lymph nodes are present. Peritoneum: No free intraperitoneal fluid or pneumoperitoneum. Pelvic viscera: No acute findings. Genital organs are unremarkable. No findings to suggest ovarian torsion. Body wall: No acute findings. No significant body wall hernias. Bones: No acute fracture. Impression: 1. No pulmonary embolus, aortic aneurysm or dissection. 2. Multifocal probable neoplastic lesions, as described above. Follow-up with pulmonology is recommended, and a PET/CT should be considered. 3. Findings in the esophagus could reflect esophageal variceal hemorrhage, but are indeterminate. Recommend GI consult. 4. Large volume of stool in the rectum and sigmoid, correlate with constipation. No bowel obstruction. 5. Prominent rugal folds versus focal gastric varices identified in the mid stomach. 6. 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 Vascular surgery follow-up is recommended. Images reviewed, interpreted, and dictated by Dr. Reymundo Salamanca. Transcribed by Gareth Meza. CTA abdomen & pelvis [[id number]] Collected: 02/06/252134 Order Status: Completed Updated: 02/06/252155 Narrative: CTA/PE PROTOCOL CHEST CT AND CTA SCAN OF THE ABDOMEN AND PELVIS WITH CONTRAST: 02/06/2025 7:11 PM CLINICAL INDICATION: Concern for esophageal varices. Hemoptysis/hematemesis/bleeding. TECHNIQUE: Multiple axial CT images were obtained through the chest following IV contrast utilizing a CTA/PE protocol. 3D/MIP Reconstruction images were also performed. Axial CTA images were also obtained from the lung bases to the pubic symphysis following IV contrast administration according to the CTA abdomen and pelvis protocol. Coronal and sagittal reformatted images were generated from the axial data set and provided for interpretation. These studies were performed with techniques to keep radiation doses as low as reasonably achievable, (ALARA). Individualized dose reduction techniques using automated exposure control or adjustment of mA and/or kV according to the patient size were employed. COMPARISON: None. FINDINGS: PA's and Aorta: No pulmonary embolus. No pulmonary embolism or aneurysm. Thoracic aorta is normal in caliber. Moderate to severe atherosclerotic calcifications in the aorta and major branch vessels. Multifocal coronary artery calcifications. Heart/mediastinum: No evidence for right heart strain. No pericardial effusion. The heart is normal in size. Lungs/Pleura: There is a 3.0 cm spiculated mass in the left lung apex (image 42, series 2). There are multiple spiculated nodules in the left upper lobe on image 63 of series 2. A spiculated nodule measuring 25 mm in the posterior right upper lobe on image 78, series 2. Spiculated nodule measuring 27 mm in the left lower lobe. Spiculated 18 mm nodule in the left lower lobe on image 139. There is a small area of consolidative changes in the lingula. Numerous shotty lymph nodes are in the mediastinum and hilar regions. There is mural thickening throughout the visualized esophagus which is more pronounced distally. There is contrast density layering dependently in the distal esophagus (image 113-129) disease which is indeterminate without multiple contrast phase series. This could represent variceal hemorrhage. There is prominent rugal folds/and/or vessels in the posterior proximal stomach. These could reflect gastric varices. No pneumothorax or pleural effusion. Lymph nodes: No pathologically enlarged thoracic lymph nodes. Chest wall: No acute findings. Bones: No acute fracture. ABDOMEN/PELVIS: VASCULAR: Moderate to severe atherosclerotic changes are noted in the aorta and major branch vessels. There is moderate atherosclerotic calcification at the origin of the celiac and the SMA. There is moderate stenosis at the origin of both renal arteries. The TERRY appears patent. The abdominal aorta is normal in caliber. . The common, internal and external iliac arteries are patent. The visualized portions of the common, superficial and deep femoral arteries are patent and unremarkable. The superior mesenteric vein, splenic vein and main portal veins are patent. The inferior vena cava is unremarkable. Liver, gallbladder and bile ducts: Early morphologic features of cirrhosis are noted. Unremarkable gallbladder. No significant biliary ductal dilatation. Adrenal glands: The adrenal glands are morphologically unremarkable without suspicious lesion. Kidneys, ureters and urinary bladder: There are multiple focal renal cysts. No suspicious renal lesions. No hydronephrosis. Unremarkable urinary bladder. Spleen: The spleen is normal in size. Pancreas: The pancreas is unremarkable. Gastrointestinal system and mesentery: There is prominent rugal folds/and/or vessels in the posterior proximal stomach. These could reflect gastric varices. There is a large volume of stool within the sigmoid and rectum. There is a small to medium-sized hiatal hernia containing a portion of the stomach. There is no evidence of bowel obstruction. The appendix is visualized and unremarkable. No significant mesenteric inflammation. Lymph nodes: No pathologically enlarged abdominal or pelvic lymph nodes are present. Peritoneum: No free intraperitoneal fluid or pneumoperitoneum. Pelvic viscera: No acute findings. Genital organs are unremarkable. No findings to suggest ovarian torsion. Body wall: No acute findings. No significant body wall hernias. Bones: No acute fracture. Impression: 1. No pulmonary embolus, aortic aneurysm or dissection. 2. Multifocal probable neoplastic lesions, as described above. Follow-up with pulmonology is recommended, and a PET/CT should be considered. 3. Findings in the esophagus could reflect esophageal variceal hemorrhage, but are indeterminate. Recommend GI consult. 4. Large volume of stool in the rectum and sigmoid, correlate with constipation. No bowel obstruction. 5. Prominent rugal folds versus focal gastric varices identified in the mid stomach. 6. 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 Vascular surgery follow-up is recommended. Images reviewed, interpreted, and dictated by Dr. Reymundo Salamanca. Transcribed by Gareth Meza. Electronically signed by: Maribel Rios APRN, 02/07/2025 at 7:50 AM Cosigned by Marisa Garcia MD at 02/07/2025 11:53 AM EDT documented in this encounter H&P Notes * Von Sloan PA-C - 02/06/2025 10:35 PM EDT [facility] Patient Name: Iqra Balbuena : 1955 Date: 02/06/2025 PCP: Provider Not In The System MD Jorje Date of Admission: 02/06/2025 Chief Complaint: Coughing up blood Chief Complaint Patient presents with coughing up blood History of Present Illness Iqra Balbuena is a 69 y.o. female with a history of COPD, previous alcohol abuse, and hypertensionpresents to [facility] in [place], [place] for further evaluation and management of coughing up blood. Family at bedside assisted with history of present illness. Family states patient used to have history of alcohol abuse however patient has since stopped drinking approximately 1 year prior. Patient and family state that approximately 2 weeks prior to admission [facility] and states patient underwent what sounds like transesophageal echocardiogram. Patient seemingly tolerated procedure well with no obvious acute complications at that time. On day of admission patient began to begin coughing up blood and family states she had blood coming out of her nose. Patient and family deny recent nausea/vomiting or other precipitous symptoms. Patient sought evaluation at [facility] emergency department where patient began coughing upand vomiting pan blood with blood clots. Gastroenterology was called for emergent endoscopy. Uponemergent EGD a Nusrat-Prajapati tear was found of approximate 8 cm length and was closed with endoclips. GI observed cessation of bleeding after clip placement. Patient had no obvious bleeding after procedure and seemingly tolerated procedure well with no obvious complications. Patient's hemoglobin was assessed after procedure and had dropped from 10 to 9. Patient is being admitted for continued monitoring, evaluation, and treatment of Nusrat-Prajapati tear, with gastroenterology following. Patient is resting comfortably at time of admission, in no acute distress. All patient and family questions were answered at this time. Patient is agreeable to admission and plan. Past Medical History: Past Medical History: Diagnosis Date COPD (chronic obstructive pulmonary disease) (HCC) Hypertension Past Surgical History: No past surgical history on file. Social History: Social History Tobacco Use Smoking status: Every Day Types: Cigarettes Substance Use Topics Alcohol use: Never Drug use: Never Family History: No family history on file. Documented Allergies: No Known Allergies Documented CONE WINDER Medications: (Not in a hospital admission) Review of Systems A 14 point review of systems was obtained and is noncontributory except as noted below. Available past medical, social and family history reviewed. Review of Systems Constitutional: Negative for chills and fever. Respiratory: Positive for hemoptysis. Negative for shortness of breath. Cardiovascular: Negative for chest pain. Gastrointestinal: Positive for vomiting (Pan blood). Negative for abdominal pain, constipation, diarrhea and nausea. Neurological: Negative for focal weakness, weakness and headaches. Objective Vitals: Temp: [98.2 ??F (36.8 ??C)] 98.2 ??F (36.8 ??C) Pulse: [64-88] 72 Resp: [16-51] 23 BP: (82-191)/(38-140) 92/41 Intake/Output: No intake or output data in the 24 hours ending 02/06/25 2347 Physical Exam Vitals reviewed. Constitutional: General: She is not in acute distress. Appearance: Normal appearance. She is normal weight. She is not ill-appearing, toxic-appearing or diaphoretic. HENT: Head: Normocephalic and atraumatic. Cardiovascular: Rate and Rhythm: Normal rate and regular rhythm. Heart sounds: Normal heart sounds. Pulmonary: Effort: Pulmonary effort is normal. No respiratory distress. Breath sounds: Normal breath sounds. No stridor. No wheezing, rhonchi or rales. Musculoskeletal: Cervical back: Normal range of motion. Skin: General: Skin is warm and dry. Neurological: General: No focal deficit present. Mental Status: She is alert and oriented to person, place, and time. Psychiatric: Mood and Affect: Mood normal. Thought Content: Thought content normal. Recent Labs: Results for orders placed or performed during the hospital encounter of 02/06/25 (from the past 24 hours) ECG 12 lead Status: None (In process) Collection Time: 02/06/25 5:41 PM Result Value Ref Range VENTRICULAR RATE EKG/MIN 67 BPM ATRIAL RATE (MCT) 69 BPM AR Interval 152 ms QRS-INTERVAL (MSEC) 80 ms QT Interval 386 ms QTC Interval 407 ms P Bennet 57 degrees R AXIS (MCT) -71 degrees T Wave Bennet 40 degrees Recluse Diagnosis Age and gender specific ECG analysis Normal sinus rhythm Left axis deviation Abnormal ECG When compared with ECG of 06-OCT-2024 19:45, Significant changes have occurred Comprehensive metabolic panel Status: Abnormal Collection Time: 02/06/25 6:23 PM Result Value Ref Range Sodium 137 136 - 145 meq/L Potassium 5.1 3.4 - 5.1 meq/L Chloride 93 (L) 98 - 112 meq/L CO2 36 (H) 22 - 29 meq/L Calcium 11.6 (H) 8.4 - 10.2 mg/dL Glucose 104 82 - 115 mg/dL BUN 13.4 9.8 - 20.1 mg/dL Creatinine 1.00 0.57 - 1.11 mg/dL BUN/Creatinine 13 8 - 20 eGFR (mL/min/1.73m2) 61 >=60 mL/min/1.73m2 Albumin 2.9 (L) 3.5 - 5.0 g/dL Alkaline Phosphatase 53 40 - 150 U/L ALT 8 <=34 U/L AST 14 11 - 34 U/L Total Bilirubin 0.2 0.2 - 1.2 mg/dL Protein, Total 6.5 6.4 - 8.3 g/dL Globulin 3.6 2.5 - 4.1 g/dL Anion Gap 13 (H) 4 - 12 A/G Ratio 0.8 0.7 - 1.9 Osmolality Calc 274.4 mOsm/kg Magnesium Status: Normal Collection Time: 02/06/25 6:23 PM Result Value Ref Range Magnesium 1.9 1.6 - 2.6 mg/dL High Sensitivity Troponin I Status: Normal Collection Time: 02/06/25 6:23 PM Result Value Ref Range Troponin I High Sensitivity (pg/mL) 12.2 <=14 pg/mL Prothrombin time/INR Status: Normal Collection Time: 02/06/25 6:23 PM Result Value Ref Range Protime 10.4 9.0 - 12.0 seconds INR 0.93 0.80 - 1.10 aPTT Status: Abnormal Collection Time: 02/06/25 6:23 PM Result Value Ref Range aPTT 32.8 (H) 22.0 - 32.0 seconds Type and Screen Status: None Collection Time: 02/06/25 6:23 PM Result Value Ref Range ABO/Rh O Positive Antibody Screen Negative HISTCHK HIST CHECK PERFORMED CBC with Auto Diff Status: Abnormal Collection Time: 02/06/25 6:25 PM Result Value Ref Range WBC 11.1 (H) 4.0 - 10.0 K/??L RBC 3.47 (L) 3.93 - 5.22 M/??L Hemoglobin 10.2 (L) 11.2 - 15.7 GM/DL Hematocrit 32.6 (L) 34.1 - 44.9 % MCV 94 79 - 95 fL MCH 29.4 25.6 - 32.2 pg MCHC 31.3 (L) 32.2 - 35.5 GM/DL RDW 14.6 (H) 11.7 - 14.4 % Platelets 414 (H) 140 - 375 K/CU MM MPV 9.3 (L) 9.4 - 12.3 fL % Neutros 68 34 - 71 % % Lymphs 23 19 - 52 % % Monos 7 5 - 13 % % Eos 2 1 - 6 % % Baso 1 0 - 1 % NRBC Absolute <0.01 0 - 0.012 K/ul # Neutros 7.57 (H) 1.56 - 6.13 K/??L # Lymphs 2.55 1.18 - 3.74 K/??L # Monos 0.72 0.24 - 0.86 K/??L # Eos 0.18 0.04 - 0.36 K/??L # Baso 0.07 0.01 - 0.08 K/??L Immature Granulocytes-Relative 0.40 0.01 - 0.43 % # IG 0.04 (H) 0.00 - 0.03 K/uL Hemoglobin and hematocrit Status: Abnormal Collection Time: 02/06/25 8:22 PM Result Value Ref Range Hemoglobin 9.0 (L) 11.2 - 15.7 GM/DL Hematocrit 29.3 (L) 34.1 - 44.9 % Microbiology Results (last 7 days) No results found for the last 168 hours. Radiology: Radiology Results (last 3 days) Procedure Component Value Units Date/Time CTA chest [[id number]] Collected: 02/06/252134 Order Status: Completed Updated: 02/06/252155 Narrative: CTA/PE PROTOCOL CHEST CT AND CTA SCAN OF THE ABDOMEN AND PELVIS WITH CONTRAST: 02/06/2025 7:11 PM CLINICAL INDICATION: Concern for esophageal varices. Hemoptysis/hematemesis/bleeding. TECHNIQUE: Multiple axial CT images were obtained through the chest following IV contrast utilizing a CTA/PE protocol. 3D/MIP Reconstruction images were also performed. Axial CTA images were also obtained from the lung bases to the pubic symphysis following IV contrast administration according to the CTA abdomen and pelvis protocol. Coronal and sagittal reformatted images were generated from the axial data set and provided for interpretation. These studies were performed with techniques to keep radiation doses as low as reasonably achievable, (ALARA). Individualized dose reduction techniques using automated exposure control or adjustment of mA and/or kV according to the patient size were employed. COMPARISON: None. FINDINGS: PA's and Aorta: No pulmonary embolus. No pulmonary embolism or aneurysm. Thoracic aorta is normal in caliber. Moderate to severe atherosclerotic calcifications in the aorta and major branch vessels. Multifocal coronary artery calcifications. Heart/mediastinum: No evidence for right heart strain. No pericardial effusion. The heart is normal in size. Lungs/Pleura: There is a 3.0 cm spiculated mass in the left lung apex (image 42, series 2). There are multiple spiculated nodules in the left upper lobe on image 63 of series 2. A spiculated nodule measuring 25 mm in the posterior right upper lobe on image 78, series 2. Spiculated nodule measuring 27 mm in the left lower lobe. Spiculated 18 mm nodule in the left lower lobe on image 139. There is a small area of consolidative changes in the lingula. Numerous shotty lymph nodes are in the mediastinum and hilar regions. There is mural thickening throughout the visualized esophagus which is more pronounced distally. There is contrast density layering dependently in the distal esophagus (image 113-129) disease which is indeterminate without multiple contrast phase series. This could represent variceal hemorrhage. There is prominent rugal folds/and/or vessels in the posterior proximal stomach. These could reflect gastric varices. No pneumothorax or pleural effusion. Lymph nodes: No pathologically enlarged thoracic lymph nodes. Chest wall: No acute findings. Bones: No acute fracture. ABDOMEN/PELVIS: VASCULAR: Moderate to severe atherosclerotic changes are noted in the aorta and major branch vessels. There is moderate atherosclerotic calcification at the origin of the celiac and the SMA. There is moderate stenosis at the origin of both renal arteries. The TERRY appears patent. The abdominal aorta is normal in caliber. . The common, internal and external iliac arteries are patent. The visualized portions of the common, superficial and deep femoral arteries are patent and unremarkable. The superior mesenteric vein, splenic vein and main portal veins are patent. The inferior vena cava is unremarkable. Liver, gallbladder and bile ducts: Early morphologic features of cirrhosis are noted. Unremarkable gallbladder. No significant biliary ductal dilatation. Adrenal glands: The adrenal glands are morphologically unremarkable without suspicious lesion. Kidneys, ureters and urinary bladder: There are multiple focal renal cysts. No suspicious renal lesions. No hydronephrosis. Unremarkable urinary bladder. Spleen: The spleen is normal in size. Pancreas: The pancreas is unremarkable. Gastrointestinal system and mesentery: There is prominent rugal folds/and/or vessels in the posterior proximal stomach. These could reflect gastric varices. There is a large volume of stool within the sigmoid and rectum. There is a small to medium-sized hiatal hernia containing a portion of the stomach. There is no evidence of bowel obstruction. The appendix is visualized and unremarkable. No significant mesenteric inflammation. Lymph nodes: No pathologically enlarged abdominal or pelvic lymph nodes are present. Peritoneum: No free intraperitoneal fluid or pneumoperitoneum. Pelvic viscera: No acute findings. Genital organs are unremarkable. No findings to suggest ovarian torsion. Body wall: No acute findings. No significant body wall hernias. Bones: No acute fracture. Impression: 1. No pulmonary embolus, aortic aneurysm or dissection. 2. Multifocal probable neoplastic lesions, as described above. Follow-up with pulmonology is recommended, and a PET/CT should be considered. 3. Findings in the esophagus could reflect esophageal variceal hemorrhage, but are indeterminate. Recommend GI consult. 4. Large volume of stool in the rectum and sigmoid, correlate with constipation. No bowel obstruction. 5. Prominent rugal folds versus focal gastric varices identified in the mid stomach. 6. 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 Vascular surgery follow-up is recommended. Images reviewed, interpreted, and dictated by Dr. Reymundo Salamanca. Transcribed by Gareth Meza. CTA abdomen & pelvis [[id number]] Collected: 02/06/252134 Order Status: Completed Updated: 02/06/252155 Narrative: CTA/PE PROTOCOL CHEST CT AND CTA SCAN OF THE ABDOMEN AND PELVIS WITH CONTRAST: 02/06/2025 7:11 PM CLINICAL INDICATION: Concern for esophageal varices. Hemoptysis/hematemesis/bleeding. TECHNIQUE: Multiple axial CT images were obtained through the chest following IV contrast utilizing a CTA/PE protocol. 3D/MIP Reconstruction images were also performed. Axial CTA images were also obtained from the lung bases to the pubic symphysis following IV contrast administration according to the CTA abdomen and pelvis protocol. Coronal and sagittal reformatted images were generated from the axial data set and provided for interpretation. These studies were performed with techniques to keep radiation doses as low as reasonably achievable, (ALARA). Individualized dose reduction techniques using automated exposure control or adjustment of mA and/or kV according to the patient size were employed. COMPARISON: None. FINDINGS: PA's and Aorta: No pulmonary embolus. No pulmonary embolism or aneurysm. Thoracic aorta is normal in caliber. Moderate to severe atherosclerotic calcifications in the aorta and major branch vessels. Multifocal coronary artery calcifications. Heart/mediastinum: No evidence for right heart strain. No pericardial effusion. The heart is normal in size. Lungs/Pleura: There is a 3.0 cm spiculated mass in the left lung apex (image 42, series 2). There are multiple spiculated nodules in the left upper lobe on image 63 of series 2. A spiculated nodule measuring 25 mm in the posterior right upper lobe on image 78, series 2. Spiculated nodule measuring 27 mm in the left lower lobe. Spiculated 18 mm nodule in the left lower lobe on image 139. There is a small area of consolidative changes in the lingula. Numerous shotty lymph nodes are in the mediastinum and hilar regions. There is mural thickening throughout the visualized esophagus which is more pronounced distally. There is contrast density layering dependently in the distal esophagus (image 113-129) disease which is indeterminate without multiple contrast phase series. This could represent variceal hemorrhage. There is prominent rugal folds/and/or vessels in the posterior proximal stomach. These could reflect gastric varices. No pneumothorax or pleural effusion. Lymph nodes: No pathologically enlarged thoracic lymph nodes. Chest wall: No acute findings. Bones: No acute fracture. ABDOMEN/PELVIS: VASCULAR: Moderate to severe atherosclerotic changes are noted in the aorta and major branch vessels. There is moderate atherosclerotic calcification at the origin of the celiac and the SMA. There is moderate stenosis at the origin of both renal arteries. The TERRY appears patent. The abdominal aorta is normal in caliber. . The common, internal and external iliac arteries are patent. The visualized portions of the common, superficial and deep femoral arteries are patent and unremarkable. The superior mesenteric vein, splenic vein and main portal veins are patent. The inferior vena cava is unremarkable. Liver, gallbladder and bile ducts: Early morphologic features of cirrhosis are noted. Unremarkable gallbladder. No significant biliary ductal dilatation. Adrenal glands: The adrenal glands are morphologically unremarkable without suspicious lesion. Kidneys, ureters and urinary bladder: There are multiple focal renal cysts. No suspicious renal lesions. No hydronephrosis. Unremarkable urinary bladder. Spleen: The spleen is normal in size. Pancreas: The pancreas is unremarkable. Gastrointestinal system and mesentery: There is prominent rugal folds/and/or vessels in the posterior proximal stomach. These could reflect gastric varices. There is a large volume of stool within the sigmoid and rectum. There is a small to medium-sized hiatal hernia containing a portion of the stomach. There is no evidence of bowel obstruction. The appendix is visualized and unremarkable. No significant mesenteric inflammation. Lymph nodes: No pathologically enlarged abdominal or pelvic lymph nodes are present. Peritoneum: No free intraperitoneal fluid or pneumoperitoneum. Pelvic viscera: No acute findings. Genital organs are unremarkable. No findings to suggest ovarian torsion. Body wall: No acute findings. No significant body wall hernias. Bones: No acute fracture. Impression: 1. No pulmonary embolus, aortic aneurysm or dissection. 2. Multifocal probable neoplastic lesions, as described above. Follow-up with pulmonology is recommended, and a PET/CT should be considered. 3. Findings in the esophagus could reflect esophageal variceal hemorrhage, but are indeterminate. Recommend GI consult. 4. Large volume of stool in the rectum and sigmoid, correlate with constipation. No bowel obstruction. 5. Prominent rugal folds versus focal gastric varices identified in the mid stomach. 6. 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 Vascular surgery follow-up is recommended. Images reviewed, interpreted, and dictated by Dr. Reymundo Salamanca. Transcribed by Gareth Meza. All Documented Medications: Scheduled Meds: pantoprazole 40 mg intravenous BID 40 mg at 02/06/252026 sucralfate 1 g oral Q6H VICENTE 1 g at 02/06/252026 Continuous Infusions: Current Facility-Administered Medications Medication Dose Route Frequency Provider Last Rate Last Admin hydrALAZINE (APRESOLINE) injection 5 mg 5 mg intravenous Q6H PRN Von Sloan PA-C magnesium sulfate IVPB 2 g in sterile water 50 mL (premix) 2 g intravenous Daily PRN Von Sloan PA-C magnesium sulfate IVPB 2 g in sterile water 50 mL (premix) 2 g intravenous BID PRN Von Sloan PA-C ondansetron (ZOFRAN-ODT) disintegrating tablet 4 mg 4 mg oral Q8H PRN Von Sloan PA-C Or ondansetron (ZOFRAN) injection 4 mg 4 mg intravenous Q8H PRN Von Sloan PA-C pantoprazole (PROTONIX) injection 40 mg 40 mg intravenous BID Marisa Garcia MD 40 mg at potassium chloride IVPB 10 mEq in 100 mL sterile water (premix) 10 mEq intravenous Q1H PRN Von Sloan PA-C sodium chloride 0.9 % infusion 50 mL/hr intravenous Continuous Marisa Garcia MD Stopped at 02/06/252036 sucralfate (CARAFATE) 100 mg/mL suspension 1 g 1 g oral Q6H VICENTE Marisa Garcia MD 1 g at Current Outpatient Medications Medication Sig Dispense Refill albuterol 90 mcg/actuation inhaler Inhale 2 puffs by mouth every 6 (six) hours as needed for wheezing. ALPRAZolam (XANAX) 1 MG tablet Take 1 tablet (1 mg total) by mouth 2 (two) times daily. Max Daily Amount: 2 mg calcium carbonate-vitamin D3 600 mg-5 mcg (200 unit) per tablet Take 1 tablet by mouth 2 (two) times daily. celecoxib (CeleBREX) 50 MG capsule Take 1 capsule (50 mg total) by mouth daily. cholecalciferol, vitamin D3, 1,250 mcg (50,000 unit) tab Take 1 tablet (50,000 Units total) by mouth once a week. DULoxetine (CYMBALTA) 30 MG capsule Take 1 capsule (30 mg total) by mouth daily. furosemide (LASIX) 40 MG tablet Take 1 tablet (40 mg total) by mouth daily. gabapentin (NEURONTIN) 800 MG tablet Take 1 tablet (800 mg total) by mouth 3 (three) times daily. Max Daily Amount: 2,400 mg HYDROcodone-acetaminophen (NORCO) 10-325 mg per tablet Take 1 tablet by mouth every 6 (six) hours as needed for pain. Max Daily Amount: 4 tablets linaCLOtide (Linzess) 145 mcg cap 1 capsule (145 mcg total) daily as needed (for Constipation). losartan (COZAAR) 100 MG tablet Take 1 tablet (100 mg total) by mouth daily. magnesium oxide (MAG-OX) 250 mg magnesium tab tablet Take 1 tablet (250 mg total) by mouth 2 (two) times daily with breakfast and dinner. montelukast (SINGULAIR) 10 mg tablet Take 1 tablet (10 mg total) by mouth nightly. polyethylene glycol (GLYCOLAX) 17 gram packet Take 17 g by mouth daily. potassium chloride (KLOR-CON) 20 MEQ tablet Take 1 tablet (20 mEq total) by mouth 2 (two) times daily. tiotropium (Spiriva with HandiHaler) 18 mcg inhalation capsule Inhale 1 capsule (18 mcg total) by mouth daily. 30 capsule 0 PRN Meds: @MEDSPRN@ Assessment and Plan Principal Problem: Nusrat-Prajapati tear Active Problems: Hematemesis Nusrat-Prajapati tear Hematemesis Previous history of alcohol abuse -CTA abdomen pelvis read no PE, aortic aneurysm or dissection. Multifocal probable neoplastic lesions as just scribed above. Follow-up with pulmonology as recommended and a PET/CT should be considered. Findings in the esophagus could reflect esophageal variceal hemorrhage, but are indeterminate. Recommend GI consult. Large volume of stool in the rectum and sigmoid colon, correlate with constipation. No bowel obstruction. Prominent rugal folds versus focal gastric varices identified in the mid stomach. Moderate to severe atherosclerotic disease, with moderate stenosis of the celiac, SMA, bilateral renal arteries. Vascular surgery follow-up is recommended. -White count elevated at 11.1, likely reactive -H&H low at 9/29.3 down from 10.2/32.6 -Sodium normal at 137, potassium normal at 5.1 -Creatinine normal at 1 with EGFR of 61 -Calcium mildly elevated 11.6 -Troponin normal at 12.2 -EKG read normal sinus rhythm -Patient given Kcentra in ER prior to admission -This diagnosis without intervention would result in loss of bodily function and -Plan -Gastroenterology following, assistance appreciated - NPO effective immediately --Empiric antibiotic coverage with IV Rocephin 1 g daily x 7 days - Pantoprazole IV 40 mg twice daily - Sucralfate 1 g every 6 hours - 500 mL bolus given due to mild hypotension - CBC and BMP ordered with a.m. labs - Oxygen as needed -Monitor intake and output -Vital signs per unit protocol - Continuous telemetry monitoring Advise for home medication reinitiation after n.p.o. clearance from gastroenterology -I discussed patient's care, case, assessment, and plan with ER provider Dr. Ricardo Gordon at [facility] emergency department. -Laboratory work and pertinent imaging results independently reviewed as noted in HPI. -Continue to monitor electrolytes with AM metabolic panel and replete as appropriate. -Monitor WBC count to assess for developing / worsening infection and hemoglobin with AM CBC. -Intermittent BP and pulse oximetry monitoring per unit parameters. -Continue appropriate home medications for chronic problems as ordered below. -After reviewing this patient's presentation, labs, imaging, and medical record and discussion withsupervising physician, we have to decided to admit them. They will require inpatient admission requiring >48hrs for work up and stabilization of their condition. -High complexity of medical decision making required due to patient having a serious medical condition which without intervention would result in loss of bodily function and . -Evaluated 02/06/2025, 11:47 PM I, Von Sloan, have personally reviewed pertinent laboratory, EKG, and imaging results, as well as documentation in the patient's EMR and discussed with supervising physician as necessary. Laboratory and imaging orders per the above plan have been reviewed and addressed, please see orders below. Home medications have been reviewed and restarted if appropriate. Patient's case, assessment, and plan have been discussed on this date with ED provider. Glycemic control: Goal BS between 110-180 Nutrition: Orders Placed This Encounter Procedures NPO diet GI prophylaxis: Protonix 40 mg IV twice daily VTE prophylaxis: SCDs ordered AM orders including labs/radiology/procedures placed. Code Status: Current Code Status DNR: Interventions Limited: No Intubation Disposition: Admit Prognosis: TBD Signed: Von Sloan PA-C 02/06/2025, 11:47 PM Active Orders Lab Basic Metabolic Panel Frequency: AM Draw Number of Occurrences: 1 Occurrences CBC - Hemogram ([facility]) Frequency: AM Draw Number of Occurrences: 1 Occurrences Diet NPO diet Frequency: Effective Now Number of Occurrences: Until Specified Nursing Intake and Output Frequency: Q Shift Number of Occurrences: Until Specified Telemetry monitoring for Other Indication Frequency: Until Discontinued Number of Occurrences: 48 Hours Up with assistance Frequency: Until Discontinued Number of Occurrences: Until Specified Vital Signs Frequency: Per Unit Routine Number of Occurrences: Until Specified Code Status DNR: Interventions Limited: No Intubation Frequency: Continuous Number of Occurrences: Until Specified Respiratory Care Oxygen Therapy -Nasal Cannula Frequency: PRN Number of Occurrences: Until Specified Admission Admit to inpatient Frequency: Once Number of Occurrences: 1 Occurrences Medications hydrALAZINE (APRESOLINE) injection 5 mg Frequency: Q6H PRN Dose: 5 mg Route: intravenous magnesium sulfate IVPB 2 g in sterile water 50 mL (premix) Frequency: Daily PRN Dose: 2 g Route: intravenous magnesium sulfate IVPB 2 g in sterile water 50 mL (premix) Frequency: BID PRN Dose: 2 g Route: intravenous ondansetron (ZOFRAN) injection 4 mg Linked Order: Or Frequency: Q8H PRN Dose: 4 mg Route: intravenous ondansetron (ZOFRAN-ODT) disintegrating tablet 4 mg Linked Order: Or Frequency: Q8H PRN Dose: 4 mg Route: oral pantoprazole (PROTONIX) injection 40 mg Frequency: BID Dose: 40 mg Route: intravenous potassium chloride IVPB 10 mEq in 100 mL sterile water (premix) Frequency: Q1H PRN Dose: 10 mEq Route: intravenous sodium chloride 0.9 % infusion Frequency: Continuous Dose: 50 mL/hr Route: intravenous sucralfate (CARAFATE) 100 mg/mL suspension 1 g Frequency: Q6H VICENTE Dose: 1 g Route: oral Cosigned by Sania Salcido MD at 02/07/2025 4:31 AM EDT documented in this encounter Consult Notes * Tish Leiva APRN - 02/08/2025 2:58 PM EDTAssociated Order(s): Inpatient consult to Pulmonology Inpatient consult to Pulmonology Consult performed by: Tish Leiva APRN Consult ordered by: Nara Aguilar APRN Reason for consult: Multifocal lesions on CTA PULMONARY AND CRITICAL CARE Consult Note Date of Service: 02/08/2025 Time: 2:58 PM HPI: This is a 69 y.o. year old female with past medical history that includes COPD, 2 L of oxygen at home, stated history of lung cancer, tobacco abuse, hypertension, etc. She smokes 1 ppd, used to smoke 2 ppd. She started smoking when she was 17. She wears 2L of oxygen at home. In September 2024 patient had hospital admission. She was treated for acute encephalopathy, altered mental status, sepsis, pneumonia, left foot ulcer, foot cellulitis, acute respiratory failure, COPD exacerbation. She was evaluated in September 2024 by the vascular team with recommendation for possible elective outpatient angiogram. The patient presented to the emergency room on February 06, 2025 with complaints of a cough with blood-tinged sputum. On evaluation patient was gagging and spitting up large amounts of blood clots and blood. She admitted to diffuse burning in her abdomen. Patient is on Eliquis. Further evaluation was performed and revealed white blood cell count 11.1, hemoglobin 10.2, platelet count 414, BUN 13, creatinine 1.0, CO2 36, magnesium 1.9, troponin was negative. INR 0.93. Recheck hemoglobin dropped to 9.0. EKG revealed normal sinus rhythm. She was given Kcentra in the emergency room. She underwent CTA chest abdomen and pelvis: 1. No pulmonary embolus, aortic aneurysm or dissection. 2. Multifocal probable neoplastic lesions, as described above. Follow-up with pulmonology is recommended, and a PET/CT should be considered. 3. Findings in the esophagus could reflect esophageal variceal hemorrhage, but are indeterminate. Recommend GI consult. 4. Large volume of stool in the rectum and sigmoid, correlate with constipation. No bowel obstruction. 5. Prominent rugal folds versus focal gastric varices identified in the mid stomach. 6. 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 Vascular surgery follow-up is recommended. Gastroenterology was consulted. She underwent emergent EGD with clamping of multiple ulcerations inher esophagus. Diagnosis was 8 cm long Nusrat-Prajapati tear in the mid and distal esophagus with active bleeding from a vessel at its distal end. The tear was closed with 4 endoclips with cessation of bleeding. Patient was admitted for further care with diagnosis of Nusrat-Prajapati tear, hematic emesis, malignant neoplasm of the lung, tobacco abuse. Since admission she has been followed by gastroenterology and the primary team. In regards to her vascular findings on imaging, primary team plans to refer her to vascular surgeryon an outpatient. On February 08, 2025 the pulmonary team was consulted for multiple pulmonary lesions. There were plans for her to go home tomorrow, request was made for pulmonary consult prior to discharge to help establish with a follow-up. She is seen in room 303. She is awake, alert and oriented. She is on 2L of oxygen. She reports cough with yellow sputum, she reports baseline SOA, baseline intermittent wheezing. She states she has lost weight but not sure how much, she does have decreased appetite and night sweats. No fevers. PAST MEDICAL HISTORY: Past Medical History: Diagnosis Date COPD (chronic obstructive pulmonary disease) (HCC) Hypertension PAST SURGICAL HISTORY: Past Surgical History: Procedure Laterality Date ESOPHAGOGASTRODUODENOSCOPY (EGD),CONTROL HEMORRHAGE N/A 02/06/2025 Procedure: ESOPHAGOGASTRODUODENOSCOPY (EGD); Surgeon: Marisa Garcia MD; Location: [facility]; Service: Gastroenterology; Laterality: N/A; Allergies: No Known Allergies SOCIAL HISTORY: Social History Tobacco Use Smoking status: Every Day Types: Cigarettes Substance Use Topics Alcohol use: Never Drug use: Never FAMILY HISTORY: family history is not on file. Review of Systems Constitutional: Positive for chills, diaphoresis, malaise/fatigue and weight loss. Negative for fever. HENT: Negative for sore throat. Eyes: Negative for discharge. Respiratory: Positive for cough, sputum production, shortness of breath and wheezing. Negative for hemoptysis. Cardiovascular: Negative for leg swelling. Gastrointestinal: Positive for abdominal pain and nausea. Negative for vomiting. Genitourinary: Negative for hematuria. Musculoskeletal: Positive for joint pain. Neurological: Positive for headaches. Negative for dizziness. Psychiatric/Behavioral: The patient is nervous/anxious. Vital Signs Temp: [97.5 ??F (36.4 ??C)-98.2 ??F (36.8 ??C)] 97.7 ??F (36.5 ??C) Pulse: [78-104] 104 Resp: [16-18] 17 BP: (119-180)/(67-88) 153/72 Current: Temp: 97.7 ??F (36.5 ??C) Pulse: 104 Resp: 17 BP: (!) 153/72 SpO2: 98 % 24 Hour: BP Min: 119/67 Max: 180/88 Temp Min: 97.5 ??F (36.4 ??C) Max: 98.2 ??F (36.8 ??C) Pulse Min: 78 Max: 104 Resp Min: 16 Max: 18 SpO2 Min: 93 % Max: 100 % Intake/Output: I/O last 3 completed shifts: In: 864.2 [I.V.:864.2] Out: 780 [Urine:780] Physical Exam Vitals reviewed. Constitutional: General: She is awake. Appearance: She is well-developed. She is ill-appearing. She is not toxic- appearing or diaphoretic. Comments: 2L HENT: Head: Normocephalic and atraumatic. Mouth/Throat: Pharynx: Oropharynx is clear. Cardiovascular: Rate and Rhythm: Normal rate. Pulses: Dorsalis pedis pulses are 1+ on the right side and 1+ on the left side. Pulmonary: Effort: Prolonged expiration present. No retractions. Breath sounds: Decreased breath sounds present. No rhonchi or rales. Abdominal: General: Bowel sounds are increased. Palpations: Abdomen is soft. Musculoskeletal: General: Normal range of motion. Right lower leg: No edema. Left lower leg: No edema. Skin: General: Skin is warm and dry. Neurological: General: No focal deficit present. Mental Status: She is alert and oriented to person, place, and time. Psychiatric: Mood and Affect: Mood is anxious. Behavior: Behavior is cooperative. Vent / O2 Management: LABS Results for orders placed or performed during the hospital encounter of 02/06/25 (from the past 24 hours) Hemoglobin and hematocrit Status: Abnormal Collection Time: 02/07/25 5:51 PM Result Value Ref Range Hemoglobin 8.3 (L) 11.2 - 15.7 GM/DL Hematocrit 26.9 (L) 34.1 - 44.9 % CBC with automated diff Status: Abnormal Collection Time: 02/08/25 4:41 AM Result Value Ref Range WBC 7.7 4.0 - 10.0 K/??L RBC 2.75 (L) 3.93 - 5.22 M/??L Hemoglobin 8.1 (L) 11.2 - 15.7 GM/DL Hematocrit 25.8 (L) 34.1 - 44.9 % MCV 94 79 - 95 fL MCH 29.5 25.6 - 32.2 pg MCHC 31.4 (L) 32.2 - 35.5 GM/DL RDW 14.2 11.7 - 14.4 % Platelets 315 140 - 375 K/CU MM MPV 9.0 (L) 9.4 - 12.3 fL NRBC Absolute <0.01 0 - 0.012 K/ul Magnesium Status: Normal Collection Time: 02/08/25 4:41 AM Result Value Ref Range Magnesium 1.6 1.6 - 2.6 mg/dL Comprehensive metabolic panel Status: Abnormal Collection Time: 02/08/25 4:41 AM Result Value Ref Range Sodium 135 (L) 136 - 145 meq/L Potassium 3.7 3.4 - 5.1 meq/L Chloride 98 98 - 112 meq/L CO2 29 22 - 29 meq/L Calcium 9.1 8.4 - 10.2 mg/dL Glucose 85 82 - 115 mg/dL BUN 8.3 (L) 9.8 - 20.1 mg/dL Creatinine 0.77 0.57 - 1.11 mg/dL BUN/Creatinine 11 8 - 20 eGFR (mL/min/1.73m2) 84 >=60 mL/min/1.73m2 Albumin 2.3 (L) 3.5 - 5.0 g/dL Alkaline Phosphatase 38 (L) 40 - 150 U/L ALT <7 <=34 U/L AST 11 11 - 34 U/L Total Bilirubin 0.2 0.2 - 1.2 mg/dL Protein, Total 5.0 (L) 6.4 - 8.3 g/dL Globulin 2.7 2.5 - 4.1 g/dL Anion Gap 12 4 - 12 A/G Ratio 0.9 0.7 - 1.9 Osmolality Calc 267.8 mOsm/kg Manual Differential Status: Abnormal Collection Time: 02/08/25 4:41 AM Result Value Ref Range Total Counted 100 % Neutros (manual) 70 (H) 50 - 65 % % Bands (manual) 2 % % Lymphs (manual) 23 (L) 24 - 44 % % Monos (manual) 1 (L) 4 - 5 % % Eos (manual) 4 (H) 0 - 3 % RBC Morphology abnormal (A) Normal Platelet Estimate Adequate Adequate Hypochromia 1+ Ovalocytes 1+ ANC# 5.54 K/??L Radiology Radiology Results (last day) No results found for the last 24 hours. Microbiology: Microbiology Results (last 7 days) No results found for the last 168 hours. ASSESSMENT: Pulmonary: Chronic respiratory failure with hypoxemia and hypercapnia COPD Home oxygen use Multiple lung lesions Cigarette smoker CTA chest February 06, 2025: No pulmonary embolus. There is a 3.0 cm spiculated mass in the left lung apex. Multiple spiculated nodules in the left upper lobe. A spiculated nodule measuring 25 mm in the posterior right upper lobe. Spiculated nodule measuring 27 mm in the left lower lobe. Spiculated 18 mm nodule in the left lower lobe. Small area of consolidative changes in the lingula. Numerous shotty lymph nodes are in the mediastinum and hilar regions Heme-onc: Anemia ID: Chronic foot ulcer Cardiac: HTN Vascular: Moderate to severe atherosclerotic disease with moderate stenosis of the celiac, SMA and bilateral renal arteries. Renal: Hyponatremia GI: Hematemesis Nusrat Prajapati tear Abnormal findings in the esophagus on CT scan imaging that could reflect esophageal variceal hemorrhage but are indeterminate. Large volume of stool in the rectum and sigmoid. Prominent rugal folds versus gastric varices Gastroenterology was consulted. She underwent emergent EGD with clamping of multiple ulcerations inher esophagus. Diagnosis was 8 cm long Nusrat-Prajapati tear in the mid and distal esophagus with active bleeding from a vessel at its distal end. The tear was closed with 4 endoclips with cessation of bleeding. PLAN: Oxygen supplementation to keep sats greater than 90%. Patient currently on DuoNebs every 4 hours Pulmicort nebs BID Antibiotics: Per primary team; ceftriaxone GI prophylaxis: Per primary team DVT prophylaxis: Per primary team/SCUDs. Chemical DVT prophylaxis contraindicated at this time withMallory-Prajapati tear and hematemesis on admission. Nutrition per primary team GI following DNR. No vent. Disposition: 303 Tish Leiva, [employer] Time spent [address] chest finding with the patient. Patient states she knew she had a spot on her lung butdidn't know she had many. Discussed findings. She states she was told by Fidelina that she may have lung cancer, but not sure how long ago that was and states she never had biopsy. She states she has not had work up for the multiple lung lesions or seen anyone regarding them. She states she is not sure what she wants to do. Upon asking if she would want a biopsy, she says no. She then says I really don't know what I want to do, but I don't want a biopsy. Im not sure what I want to do yet. She understands that waiting is not recommended if she wants treatment, as this allows for spread if this is a cancer, delay in care, delay in diagnosis, delay in treatment. If this is a cancer it allows for disease progression which then may limit treatment options, worsen prognosis and reduce survival rates. She would like to talk to her family tonight. Dr. Aragon will see her tomorrow. Patient is agreeable to see us in clinic. [employer] will see her in the morning. Cosigned by Lawrence Romero MD at 02/09/2025 12:13 PM EDT * Marisa Garcia MD - 02/06/2025 7:12 PM EDTAssociated Order(s): Inpatient consult to Gastroenterology INPATIENT GASTROENTEROLOGY CONSULT NOTE Inpatient consult to Gastroenterology Consult performed by: Marisa Garcia MD Consult ordered by: Laura Gibson DO Reason for consult: hematemesis History of Present Illness: Iqra Balbuena is a 69 y.o. female we were asked to see for acute onset of hematemesis. The patienthas a history of lung cancer and severe COPD on 2 L of oxygen at home. She initially thought she was just coughing up some blood but presented to the emergency room vomiting up large amounts of bright red blood. When the emergency room physician tried to examine her mouth clots of blood were comingfrom her esophagus. The patient has no previous history of GI bleed. She does take aspirin Eliquis and Celebrex. She also recently has been on doxycycline presumably for bronchitis. She has been having some chest pain concerning for pill induced esophageal ulcer. I am really unable to find much about her lung cancer diagnosis. I cannot find any information about it in the chart and the patient isvery vague about the diagnosis. She tells me that it may have been diagnosed up to 5 years ago. Shedoes continue to smoke 1 pack of cigarettes per day. She does report some weight loss recently but she is unable to quantify it. Her labs are pending at the time of my visit. She has a CTA of the chest and abdomen ordered but has not been completed yet. Past Medical History She has a past medical history of COPD (chronic obstructive pulmonary disease) (HCC) and Hypertension. Past Surgical History She has no past surgical history on file. Family History: Her family history is not on file. Social History: Social History Socioeconomic History Marital status: Single Tobacco Use Smoking status: Every Day Types: Cigarettes Substance and Sexual Activity Alcohol use: Never Drug use: Never Social Drivers of Health Financial Resource Strain: Low Risk (10/07/2024) Financial Resource Strain Struggle to pay for basics: Not hard at all Food Insecurity: No Food Insecurity (10/07/2024) Food Insecurity Food run out past 12 months: Never true Food did not last past 12 months: Never true Transportation: No Transportation Needs (10/07/2024) Transportation Needs Transportation unreliable past 12 months: No Physical Activity: Insufficiently Active (10/07/2024) Physical Activity Minutes of exercise per week: 60 Social Connections: Unknown (10/07/2024) Family and Community Support Help with Day to Day Activities: I get all the help I need Feeling Lonely or Isolated: 0 Allergies: Patient has no known allergies. Inpatient Medications: No current facility-administered medications for this encounter. Current Outpatient Medications: albuterol 90 mcg/actuation inhaler, Inhale 2 puffs by mouth every 6 (six) hours as needed for wheezing., Disp: , Rfl: ALPRAZolam (XANAX) 1 MG tablet, Take 1 tablet (1 mg total) by mouth 2 (two) times daily. Max Daily Amount: 2 mg, Disp: , Rfl: calcium carbonate-vitamin D3 600 mg-5 mcg (200 unit) per tablet, Take 1 tablet by mouth 2 (two) times daily., Disp: , Rfl: celecoxib (CeleBREX) 50 MG capsule, Take 1 capsule (50 mg total) by mouth daily., Disp: , Rfl: cholecalciferol, vitamin D3, 1,250 mcg (50,000 unit) tab, Take 1 tablet (50,000 Units total) by mouth once a week., Disp: , Rfl: DULoxetine (CYMBALTA) 30 MG capsule, Take 1 capsule (30 mg total) by mouth daily., Disp: , Rfl: furosemide (LASIX) 40 MG tablet, Take 1 tablet (40 mg total) by mouth daily., Disp: , Rfl: gabapentin (NEURONTIN) 800 MG tablet, Take 1 tablet (800 mg total) by mouth 3 (three) times daily. Max Daily Amount: 2,400 mg, Disp: , Rfl: HYDROcodone-acetaminophen (NORCO) 10-325 mg per tablet, Take 1 tablet by mouth every 6 (six) hours as needed for pain. Max Daily Amount: 4 tablets, Disp: , Rfl: linaCLOtide (Linzess) 145 mcg cap, 1 capsule (145 mcg total) daily as needed (for Constipation)., Disp: , Rfl: losartan (COZAAR) 100 MG tablet, Take 1 tablet (100 mg total) by mouth daily., Disp: , Rfl: magnesium oxide (MAG-OX) 250 mg magnesium tab tablet, Take 1 tablet (250 mg total) by mouth 2 (two)times daily with breakfast and dinner., Disp: , Rfl: montelukast (SINGULAIR) 10 mg tablet, Take 1 tablet (10 mg total) by mouth nightly., Disp: , Rfl: polyethylene glycol (GLYCOLAX) 17 gram packet, Take 17 g by mouth daily., Disp: , Rfl: potassium chloride (KLOR-CON) 20 MEQ tablet, Take 1 tablet (20 mEq total) by mouth 2 (two) times daily., Disp: , Rfl: tiotropium (Spiriva with HandiHaler) 18 mcg inhalation capsule, Inhale 1 capsule (18 mcg total) by mouth daily., Disp: 30 capsule, Rfl: 0 Home Medications: (Not in a hospital admission) ROS: Review of Systems Constitutional: Positive for unexpected weight change. Negative for fever. HENT: Positive for trouble swallowing. Respiratory: Positive for cough and shortness of breath. Cardiovascular: Positive for chest pain. Gastrointestinal: Positive for nausea and vomiting. Musculoskeletal: Positive for arthralgias. Skin: Positive for pallor. Neurological: Positive for dizziness. Hematological: Bruises/bleeds easily. Vitals Blood pressure (!) 153/72, pulse 66, temperature 98.2 ??F (36.8 ??C), temperature source Oral, resp. rate 23, height 1.549 m (5' 1 ), weight 49.9 kg (110 lb), SpO2 99%. Physical Exam Vitals and nursing note reviewed. Constitutional: Appearance: Normal appearance. She is well-developed. She is not toxic-appearing or diaphoretic. Interventions: Nasal cannula in place. Cardiovascular: Rate and Rhythm: Normal rate and regular rhythm. Pulmonary: Effort: Pulmonary effort is normal. Prolonged expiration present. No respiratory distress. Breath sounds: Decreased air movement present. No wheezing. Chest: Chest wall: No tenderness. There is no dullness to percussion. Abdominal: General: Bowel sounds are normal. There is no distension. Palpations: Abdomen is soft. Neurological: Mental Status: She is alert. Psychiatric: Behavior: Behavior is cooperative. Relevant Results: Results for orders placed or performed during the hospital encounter of 02/06/25 (from the past 24 hours) ECG 12 lead Status: None (In process) Collection Time: 02/06/25 5:41 PM Result Value Ref Range VENTRICULAR RATE EKG/MIN 67 BPM ATRIAL RATE (MCT) 69 BPM AR Interval 152 ms QRS-INTERVAL (MSEC) 80 ms QT Interval 386 ms QTC Interval 407 ms P Bennet 57 degrees R AXIS (MCT) -71 degrees T Wave Bennet 40 degrees Recluse Diagnosis Age and gender specific ECG analysis Normal sinus rhythm Left axis deviation Abnormal ECG When compared with ECG of 06-OCT-2024 19:45, Significant changes have occurred Comprehensive metabolic panel Status: Abnormal Collection Time: 02/06/25 6:23 PM Result Value Ref Range Sodium 137 136 - 145 meq/L Potassium 5.1 3.4 - 5.1 meq/L Chloride 93 (L) 98 - 112 meq/L CO2 36 (H) 22 - 29 meq/L Calcium 11.6 (H) 8.4 - 10.2 mg/dL Glucose 104 82 - 115 mg/dL BUN 13.4 9.8 - 20.1 mg/dL Creatinine 1.00 0.57 - 1.11 mg/dL BUN/Creatinine 13 8 - 20 eGFR (mL/min/1.73m2) 61 >=60 mL/min/1.73m2 Albumin 2.9 (L) 3.5 - 5.0 g/dL Alkaline Phosphatase 53 40 - 150 U/L ALT 8 <=34 U/L AST 14 11 - 34 U/L Total Bilirubin 0.2 0.2 - 1.2 mg/dL Protein, Total 6.5 6.4 - 8.3 g/dL Globulin 3.6 2.5 - 4.1 g/dL Anion Gap 13 (H) 4 - 12 A/G Ratio 0.8 0.7 - 1.9 Osmolality Calc 274.4 mOsm/kg Magnesium Status: Normal Collection Time: 02/06/25 6:23 PM Result Value Ref Range Magnesium 1.9 1.6 - 2.6 mg/dL High Sensitivity Troponin I Status: Normal Collection Time: 02/06/25 6:23 PM Result Value Ref Range Troponin I High Sensitivity (pg/mL) 12.2 <=14 pg/mL Prothrombin time/INR Status: Normal Collection Time: 02/06/25 6:23 PM Result Value Ref Range Protime 10.4 9.0 - 12.0 seconds INR 0.93 0.80 - 1.10 aPTT Status: Abnormal Collection Time: 02/06/25 6:23 PM Result Value Ref Range aPTT 32.8 (H) 22.0 - 32.0 seconds Type and Screen Status: None Collection Time: 02/06/25 6:23 PM Result Value Ref Range ABO/Rh O Positive Antibody Screen Negative HISTCHK HIST CHECK PERFORMED CBC with Auto Diff Status: Abnormal Collection Time: 02/06/25 6:25 PM Result Value Ref Range WBC 11.1 (H) 4.0 - 10.0 K/??L RBC 3.47 (L) 3.93 - 5.22 M/??L Hemoglobin 10.2 (L) 11.2 - 15.7 GM/DL Hematocrit 32.6 (L) 34.1 - 44.9 % MCV 94 79 - 95 fL MCH 29.4 25.6 - 32.2 pg MCHC 31.3 (L) 32.2 - 35.5 GM/DL RDW 14.6 (H) 11.7 - 14.4 % Platelets 414 (H) 140 - 375 K/CU MM MPV 9.3 (L) 9.4 - 12.3 fL % Neutros 68 34 - 71 % % Lymphs 23 19 - 52 % % Monos 7 5 - 13 % % Eos 2 1 - 6 % % Baso 1 0 - 1 % NRBC Absolute <0.01 0 - 0.012 K/ul # Neutros 7.57 (H) 1.56 - 6.13 K/??L # Lymphs 2.55 1.18 - 3.74 K/??L # Monos 0.72 0.24 - 0.86 K/??L # Eos 0.18 0.04 - 0.36 K/??L # Baso 0.07 0.01 - 0.08 K/??L Immature Granulocytes-Relative 0.40 0.01 - 0.43 % # IG 0.04 (H) 0.00 - 0.03 K/uL Radiology Results (last 3 days) Procedure Component Value Units Date/Time CTA abdomen & pelvis [[id number]] Resulted: 02/06/251910 Order Status: Sent Updated: 02/06/251918 CTA chest [[id number]] Resulted: 02/06/251910 Order Status: Sent Updated: 02/06/251917 My evaluation of CTA films show thickening in the mid esophagus with active bleeding. Assessment & Plan Active Problems: There are no active Hospital Problems. Assessment: Acute upper GI bleed with hematemesis. Patient is on anticoagulation with Eliquis as well as aspirin. Chest pain: I suspect that she has developed a pill esophagitis from doxycycline use and that it isnow bleeding. We do not know the status of her previously diagnosed lung cancer and there is always a concern that this could be eroding into the esophagus. With concurrent use of aspirin and Celebrex gastric and duodenal ulcers are also strong possibility. Recommendations: We will call in the team emergently to do an upper endoscopy. We are giving her some IV Reglan to help clear the blood from her GI tract. Further recommendations to follow the endoscopy. Electronically signed by Marisa Garcia MD 02/06/2025 at 7:12 PM documented in this encounter OR Notes * Op Note - Marisa Garcia MD - 02/06/2025 8:08 PM EDT Images from the original note were not included. Operative/Procedure Note: Patient Information: Iqra Balbuena 1955 female 02/06/25 EGD Impression: 8 cm long Nusrat Prajapati tear in mid and distal esophagus with active bleeding from a vessel at its distal end. The tear was closed with 4 endo clips with cessation of bleeding. Plan: Stop all anticoagulation until her Hgb is stable for 48 hours. Begin carafate suspension Twice daily IV protonix. Every 8 hour H and H. Indication: Acute onset of hematemesis. Chest pain and active bleeding seen in esophagus on CT angiogram. Consent: The benefits, risks, and alternatives to the procedure were discussed and informed consentwas obtained. The risks discussed included anesthesia reactions, bleeding, perforation, surgery, and missed lesions. Preparation: EKG pulse, pulse oximetry and blood pressure monitored. Instrument: Olympus [id number] Anesthesia: Versed 4 mg IV EBL: 40 ml Procedure: Appropriate time-out protocol was followed: the correct patient, the correct procedure, and the correct equipment in the room were confirmed. The gastroscope was gently passed through the mouth and under direct visualization the esophagus was intubated. The endoscope was passed down the esophagus, through the stomach, and into the 3rd portion of the duodenum. Retroflexion was performedat the gastroesophageal junction. Color, texture, mucosa, and anatomy of Esophagus, Stomach, and Duodenum were carefully examined with the scope. The patient tolerated the procedure well and there were no complications. After completion of the examination, patient was transferred to the recovery room. Findings: Oropharynx: Normal vocal cords and arytenoid folds Esophagus: There was initially a large clot in the mid and distal esophagus with active bleeding beneath. The clot was removed with a snare and a net. This revealed an 8 long deep tear with a bleeding vessel at its distal end. The deep portions of the tear were completely closed with 4 clips. There was complete cessation of bleeding at the end of the procedure. EG-Junction: There was a 3 cm hiatal hernia. Stomach: There was a large amount of retained fluid, food and blood. No obvious ulcers were seen. There did not appear to be any active bleeding. Duodenum: There was some duodenitis with edema and erythema but no active bleeding or ulcer was visible. CPT Codes: 28622- EGD with bleeding control Surgeon(s) and Role: Marisa Garcia MD - Primary documented in this encounter ED Notes * Ricardo Gordon MD - 02/06/2025 5:52 PM EDT Subjective Chief Complaint: coughing up blood HPI 69-year-old female with history of COPD, lung cancer on 2L NC presenting to the emergency department with hematemesis and hemoptysis. Patient states that this afternoon she began to cough up blood. States she is now gagging and spitting up large amounts of blood clot and blood. She admits diffuse burning abdominal pain. Patient is on Eliquis Patient states that she does have lung cancer and is not receiving treatment. She continues to smoke tobacco Patient History Past Medical History: Diagnosis Date COPD (chronic obstructive pulmonary disease) (HCC) Hypertension No past surgical history on file. No family history on file. Social History Tobacco Use Smoking status: Every Day Types: Cigarettes Smokeless tobacco: Not on file Substance Use Topics Alcohol use: Never I reviewed the HPI, ROS and PFSH documentation recorded by others in the medical record and supplemented my note as needed. Review of Systems Review of Systems Negative unless stated otherwise in HPI. Physical Exam ED Triage Vitals [02/06/25 5865] Encounter Vitals Group BP (!) 153/72 Systolic BP Percentile Diastolic BP Percentile Pulse 66 Resp 20 Temp 98.2 ??F (36.8 ??C) Temp src Oral SpO2 98 % Weight 49.9 kg (110 lb) Height 1.549 m (5' 1 ) Head Circumference Peak Flow Pain Score Pain Loc Pain Education Exclude from Growth Chart Physical Exam CONSTITUTIONAL: Uncomfortable appearing. Gagging and spitting up large clots and gross blood. EYES: Pupils are equal and round.There is no evidence of conjunctival pallor. HENT: No active epistaxis. CARDIOVASCULAR: Heart is regular, no murmurs. Good peripheral pulses. PULMONARY/CHEST: On 2 L nasal cannula. Expiratory wheeze bilaterally. ABDOMINAL: Soft, diffusely tender MMO significant in the upper abdomen. MUSCULOSKELETAL: No deformities. NEURO: The patient is awake and alert. There are no focal neurologic deficits. SKIN: Warm, well perfused. No acute rashes. PSYCH: Normal affect. CTA abdomen & pelvis Final Result 1. No pulmonary embolus, aortic aneurysm or dissection. 2. Multifocal probable neoplastic lesions, as described above. Follow-up with pulmonology is recommended, and a PET/CT should be considered. 3. Findings in the esophagus could reflect esophageal variceal hemorrhage, but are indeterminate. Recommend GI consult. 4. Large volume of stool in the rectum and sigmoid, correlate with constipation. No bowel obstruction. 5. Prominent rugal folds versus focal gastric varices identified in the mid stomach. 6. 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 Vascular surgery follow-up is recommended. Images reviewed, interpreted, and dictated by Dr. Reymundo Salamanca. Transcribed by Gareth Meza. CTA chest Final Result 1. No pulmonary embolus, aortic aneurysm or dissection. 2. Multifocal probable neoplastic lesions, as described above. Follow-up with pulmonology is recommended, and a PET/CT should be considered. 3. Findings in the esophagus could reflect esophageal variceal hemorrhage, but are indeterminate. Recommend GI consult. 4. Large volume of stool in the rectum and sigmoid, correlate with constipation. No bowel obstruction. 5. Prominent rugal folds versus focal gastric varices identified in the mid stomach. 6. 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 Vascular surgery follow-up is recommended. Images reviewed, interpreted, and dictated by Dr. Reymundo Salamanca. Transcribed by Gareth Meza. Medications sucralfate (CARAFATE) 100 mg/mL suspension 1 g (1 g oral Given 02/06/252026) pantoprazole (PROTONIX) injection 40 mg (40 mg intravenous Given 02/06/252026) sodium chloride 0.9 % infusion (0 mL/hr intravenous Stopped 02/06/252036) pantoprazole (PROTONIX) injection 80 mg (80 mg intravenous Given 02/06/251846) ondansetron (ZOFRAN) injection 4 mg (4 mg intravenous Given 02/06/251846) prothrombin complex (human) (KCENTRA) 2,178 Units in sterile water for injection (PF) 80 mL IVPB (0Units intravenous IVPB Stopped 02/06/251919) metoclopramide HCl (REGLAN) injection 10 mg (10 mg intravenous Given 02/06/251929) iopamidoL (ISOVUE-370) 370 mg iodine /mL (76 %) injection 100 mL (100 mLs intravenous Given ) midazolam (VERSED) injection 4 mg (4 mg intravenous Given 02/06/252031) Results for orders placed or performed during the hospital encounter of 02/06/25 CBC with Auto Diff Result Value Ref Range WBC 11.1 (H) 4.0 - 10.0 K/??L RBC 3.47 (L) 3.93 - 5.22 M/??L Hemoglobin 10.2 (L) 11.2 - 15.7 GM/DL Hematocrit 32.6 (L) 34.1 - 44.9 % MCV 94 79 - 95 fL MCH 29.4 25.6 - 32.2 pg MCHC 31.3 (L) 32.2 - 35.5 GM/DL RDW 14.6 (H) 11.7 - 14.4 % Platelets 414 (H) 140 - 375 K/CU MM MPV 9.3 (L) 9.4 - 12.3 fL % Neutros 68 34 - 71 % % Lymphs 23 19 - 52 % % Monos 7 5 - 13 % % Eos 2 1 - 6 % % Baso 1 0 - 1 % NRBC Absolute <0.01 0 - 0.012 K/ul # Neutros 7.57 (H) 1.56 - 6.13 K/??L # Lymphs 2.55 1.18 - 3.74 K/??L # Monos 0.72 0.24 - 0.86 K/??L # Eos 0.18 0.04 - 0.36 K/??L # Baso 0.07 0.01 - 0.08 K/??L Immature Granulocytes-Relative 0.40 0.01 - 0.43 % # IG 0.04 (H) 0.00 - 0.03 K/uL Comprehensive metabolic panel Result Value Ref Range Sodium 137 136 - 145 meq/L Potassium 5.1 3.4 - 5.1 meq/L Chloride 93 (L) 98 - 112 meq/L CO2 36 (H) 22 - 29 meq/L Calcium 11.6 (H) 8.4 - 10.2 mg/dL Glucose 104 82 - 115 mg/dL BUN 13.4 9.8 - 20.1 mg/dL Creatinine 1.00 0.57 - 1.11 mg/dL BUN/Creatinine 13 8 - 20 eGFR (mL/min/1.73m2) 61 >=60 mL/min/1.73m2 Albumin 2.9 (L) 3.5 - 5.0 g/dL Alkaline Phosphatase 53 40 - 150 U/L ALT 8 <=34 U/L AST 14 11 - 34 U/L Total Bilirubin 0.2 0.2 - 1.2 mg/dL Protein, Total 6.5 6.4 - 8.3 g/dL Globulin 3.6 2.5 - 4.1 g/dL Anion Gap 13 (H) 4 - 12 A/G Ratio 0.8 0.7 - 1.9 Osmolality Calc 274.4 mOsm/kg Magnesium Result Value Ref Range Magnesium 1.9 1.6 - 2.6 mg/dL High Sensitivity Troponin I Result Value Ref Range Troponin I High Sensitivity (pg/mL) 12.2 <=14 pg/mL Prothrombin time/INR Result Value Ref Range Protime 10.4 9.0 - 12.0 seconds INR 0.93 0.80 - 1.10 aPTT Result Value Ref Range aPTT 32.8 (H) 22.0 - 32.0 seconds Hemoglobin and hematocrit Result Value Ref Range Hemoglobin 9.0 (L) 11.2 - 15.7 GM/DL Hematocrit 29.3 (L) 34.1 - 44.9 % ECG 12 lead Result Value Ref Range VENTRICULAR RATE EKG/MIN 67 BPM ATRIAL RATE (MCT) 69 BPM AR Interval 152 ms QRS-INTERVAL (MSEC) 80 ms QT Interval 386 ms QTC Interval 407 ms P Bennet 57 degrees R AXIS (MCT) -71 degrees T Wave Bennet 40 degrees Recluse Diagnosis Age and gender specific ECG analysis Normal sinus rhythm Left axis deviation Abnormal ECG When compared with ECG of 06-OCT-2024 19:45, Significant changes have occurred Type and Screen Result Value Ref Range ABO/Rh O Positive Antibody Screen Negative HISTCHK HIST CHECK PERFORMED No results found. ED Course as of 02/06/250 Sat Feb 06, 2025 1815 Spoke with gastroenterology on the phone. Discussed urgent need for GI evaluation. They will evaluate in the ER. [MA] 1850 Due to active hemorrhage and history of Eliquis use. Ordered Kcentra. [MA] 1907 I have personally provided 35 minutes of critical care time exclusive of time spent on separately billable procedures. Time includes review of laboratory data, radiology results, discussion withconsultants, and monitoring for potential decompensation. Interventions were performed as documented. [MA] 1907 Patient's care was transferred to the oncoming provider, Evan, pending the rest of the workup. Patient was updated on all results prior to transition. Electronically signed by Laura Gibson DO 02/06/25 7:08 PM [MA] 2043 Just checked on the patient. She is doing well postprocedure at this time. Blood pressure stable. She is in no respiratory distress. GI did clamp multiple ulcerations on her esophagus. [DT] 2044 Hemoglobin(!): 9.0 down 1.2 points from 2 hours ago. [DT] 2203 CTA studies have returned. I have reached out to the hospitalist service, Dr. Salcido, for admission. [DT] 2217 Graciously accepted for hospitalization by Dr. Salcido [DT] ED Course User Index [DT] Ricardo Gordon MD [MA] Laura Gibson DO Procedures MDM Amount and/or Complexity of Data Reviewed Clinical lab tests: reviewed Tests in the medicine section of CPT??: reviewed Decide to obtain previous medical records or to obtain history from someone other than the patient:yes Initial differential diagnosis would include bleeding from one of her lung cancer lesions, epistaxis, peptic ulcer, esophageal varices, or other concerns. It is up she had an 8 cm along with Nusrat-Prajapati tear that required GI intervention in the emergency department. I have personally provided 41 minutes of critical care time exclusive of time spent on separately billable procedures. Time includes review of laboratory data, radiology results, discussion with consultants, and monitoring for potential decompensation. Interventions were performed as documented. Assessment & Plan Clinical Impression Diagnosis Comment Added By Time Added Nusrat-Prajapati tear Ricardo Gordon MD 02/06/2025 10:05 PM Hematemesis, unspecified whether nausea present Ricardo Gordon MD 02/06/2025 10:05 PM Anticoagulated on Eliquis Ricardo Gordon MD 02/06/2025 10:06 PM Malignant neoplasm of lung, unspecified laterality, unspecified part of lung (HCC) Ricardo Gordon MD02/06/2025 10:07 PM Tobacco abuse Ricardo Gordon MD 02/06/2025 10:07 PM Disposition Admit [3] - 02/06/2025 10:05 PM Medication List ASK your doctor about these medications albuterol 90 mcg/actuation inhaler ALPRAZolam 1 MG tablet Commonly known as: XANAX calcium carbonate-vitamin D3 600 mg-5 mcg (200 unit) per tablet celecoxib 50 MG capsule Commonly known as: CeleBREX cholecalciferol (vitamin D3) 1,250 mcg (50,000 unit) Tab DULoxetine 30 MG capsule Commonly known as: CYMBALTA furosemide 40 MG tablet Commonly known as: LASIX gabapentin 800 MG tablet Commonly known as: NEURONTIN HYDROcodone-acetaminophen 10-325 mg per tablet Commonly known as: NORCO Linzess 145 mcg Cap Generic drug: linaCLOtide losartan 100 MG tablet Commonly known as: COZAAR magnesium oxide 250 mg magnesium Tab tablet Commonly known as: MAG-OX montelukast 10 mg tablet Commonly known as: SINGULAIR polyethylene glycol 17 gram packet Commonly known as: GLYCOLAX potassium chloride 20 MEQ tablet Commonly known as: KLOR-CON tiotropium 18 mcg inhalation capsule Commonly known as: Spiriva with HandiHaler Inhale 1 capsule (18 mcg total) by mouth daily. Ricardo Gordon MD 02/06/252219 * Sabine Bullock RN - 02/06/2025 5:45 PM EDT Pt to ed from home with c/o pt with recent cough today progressed to blood tinged sputum pt states is on blood thinner * Lynne Stevenson RN - 02/06/2025 5:35 PM EDT Bed: ED10 Expected date: 02/06/25 Expected time: 5:31 PM Means of arrival: Comments: Ec 2 Lynne Stevenson RN 02/06/251734 documented in this encounter Plan of Treatment Not on file documented as of this encounter Procedures Procedure Name Priority Date/Time Associated Diagnosis Comments HEMOGLOBIN AND HEMATOCRIT Routine 02/08/2025 3:46 PM EDT CBC W/ AUTO DIFF Routine 02/08/2025 4:41 AM EDT MANUAL DIFFERENTIAL Routine 02/08/2025 4 :41 AM EDT MAGNESIUM Routine 02/08/2025 4:41 AM EDT COMPREHENSIVE METABOLIC PANEL Routine 02/08/2025 4:41 AM EDT HEMOGLOBIN AND HEMATOCRIT Routine 02/07/2025 5:51 PM EDT CBC HEMOGRAM (SJ-BKR) STAT 02/07/2025 5:18 AM EDT BASIC METABOLIC PANEL STAT 02/07/2025 5:18 AM EDT HEMOGLOBIN AND HEMATOCRIT STAT 02/06/2025 8:22 PM EDT AR EGD TRANSORAL CONTROL BLEEDING ANY METHOD 02/06/2025 7:30 PM EDT Hematemesis CTA ABDOMEN & PELVIS STAT 02/06/2025 7:19 PM EDT CTA CHEST STAT 02/06/2025 7:17 PM EDT CBC W/ AUTO DIFF STAT 02/06/2025 6:25 PM EDT TYPE AND SCREEN ([place] BKR) STAT 02/06/2025 6:23 PM EDT HIGH SENSITIVITY TROPONIN I STAT 02/06/2025 6:23 PM EDT APTT STAT 02/06/2025 6:23 PM EDT PROTHROMBIN TIME/INR STAT 02/06/2025 6:23 PM EDT MAGNESIUM STAT 02/06/2025 6:23 PM EDT COMPREHENSIVE METABOLIC PANEL STAT 02/06/2025 6:23 PM EDT FS_MODEL_IP_ECG 12-LEAD Routine 02/06/2025 5:41 PM EDT EKG-SCANNED 02/06/2025 documented in this encounter Results * (ABNORMAL) Hemoglobin and hematocrit (02/08/2025 3:46 PM EDT) Hemoglobin 8.2(L) 11.2 - 15.7 GM/DL 02/08/2025 3:55 PM EDT [facility] Hematocrit 25.3(L) 34.1 - 44.9 % 02/08/2025 3:55 PM EDT [facility] Blood Venipuncture / Unknown 02/08/2025 3:46 PM EDT 02/08/2025 3:50 PM EDT Nara Aguilar [employer] LAB BLOOD ORDERABLES Fi nal Result Performing Organization Address City/State/[facility] Co de Phone Number [facility] [address] [place] [address] * (ABNORMAL) Manual Differential (02/08/2025 4:41 AM EDT) Pathologist [facility] Total Counted 100 02/08/2025 9:00 AM EDT [facility] % Neutros (manual) 70(H) 50 - 65 % 02/08/2025 9:00 AM EDT [facility] % Bands (manual) 2 % 02/08/2025 9:00 AM EDT [facility] % Lymphs (manual) 23(L) 24 - 44 % 02/08/2025 9:00 AM EDT [facility] % Monos (manual) 1(L) 4 - 5 % 02/08/2025 9:00 AM EDT [facility] % Eos (manual) 4(H) 0 - 3 % 02/08/2025 9:00 AM EDT [facility] RBC Morphology abnormal(A) Normal 9:00 AM EDT [facility] Platelet Estimate Adequate Adequate 02/08/2025 9:00 AM EDT [facility] Hypochromia 1+ 02/08/2025 9:00 AM EDT [facility] Ovalocytes 1+ 02/08/2025 9:00 AM EDT [facility] ANC# 5.54 K/ L 02/08/2025 9:00 AM EDT [facility] Blood Venipuncture / Unknown 02/08/2025 4:41 AM EDT 02/08/2025 5:01 AM EDT us Nara Aguilar [employer] LAB BLOOD ORDERABLES Fi nal Result [facility] [address] [phone] * (ABNORMAL) Comprehensive metabolic panel (02/08/2025 4:41 AM EDT) Sodium 135(L) 136 - 145 meq/L 02/08/2025 5:59 AM EDT [facility] Potassium 3.7 3.4 - 5.1 meq/L 02/08/2025 5:59 AM EDT [facility] Chloride 98 98 - 112 meq/L 02/08/2025 5:59 AM EDT [facility] CO2 29 22 - 29 meq/L 02/08/2025 5:59 AM EDT [facility] Calcium 9.1 8.4 - 10.2 mg/dL 02/08/2025 5:59 AM EDT [facility] Glucose 85 82 - 115 mg/dL 02/08/2025 5:59 AM EDT [facility] BUN 8.3(L) 9.8 - 20.1 mg/dL 02/08/2025 5:59 AM EDT [facility] Creatinine 0.77 0.57 - 1.11 mg/dL 02/08/2025 5:59 AM EDT [facility] BUN/Creatinine 11 8 - 20 02/08/2025 5:59 AM EDT [facility] eGFR (mL/min/1.73m2) 84 >=60 mL/min/1. 73m2 02/08/2025 5:59 AM EDT [facility] Albumin 2.3(L) 3.5 - 5.0 g/dL 02/08/2025 5:59 AM EDT [facility] Alkaline Phosphatase 38(L) 40 - 150 U/L 02/08/2025 5:59 AM EDT [facility] ALT <7 <=34 U/L 02/08/2025 5:59 AM EDT [facility] Comment: ALT2 reagent used for testing does not contain P5P supplementation and therefore may miss ALT elevations in patients with B6 deficiency. This population may be as high as 10% in the [place], with risk factors including malabsorption, drug interactions, and alcoholic hepatitis. AST 11 11 - 34 U/L 02/08/2025 5:59 AM EDT [facility] Comment: AST2 reagent used for testing does not contain P5P supplementation and therefore may miss AST elevations in patients with B6 deficiency. This population may be as high as 10% in the [place], with risk factors including malabsorption, drug interactions, and alcoholic hepatitis. Total Bilirubin 0.2 0.2 - 1.2 mg/dL 02/08/2025 5:59 AM EDT [facility] Protein, Total 5.0(L) 6.4 - 8.3 g/dL 02/08/2025 5:59 AM EDT [facility] Globulin 2.7 2.5 - 4.1 g/dL 02/08/2025 5:59 AM EDT [facility] Anion Gap 12 4 - 12 02/08/2025 5:59 AM EDT [facility] A/G Ratio 0.9 0.7 - 1.9 02/08/2025 5:59 AM EDT [facility] Osmolality Calc 267.8 mOsm/kg 5:59 AM EDT [facility] Blood Venipuncture / Unknown 02/08/2025 4:41 AM EDT 02/08/2025 5:05 AM EDT us Nara Aguilar [employer] LAB BLOOD ORDERABLES Fi nal Result [facility] [address] [phone] * Magnesium (02/08/2025 4:41 AM EDT) Magnesium 1.6 1.6 - 2.6 mg/dL 02/08/2025 5:54 AM EDT [facility] Blood Venipuncture / Unknown 02/08/2025 4:41 AM EDT 02/08/2025 5:05 AM EDT Nara Aguilar [employer] LAB BLOOD ORDERABLES Fi nal Result [facility] [address] [phone] * (ABNORMAL) CBC with automated diff (02/08/2025 4:41 AM EDT) [facility] WBC 7.7 4.0 - 10.0 K/ L 02/08/2025 6:12 AM EDT [facility] RBC 2.75(L) 3.93 - 5.22 M/ L 02/08/2025 6:12 AM EDT [facility] Hemoglobin 8.1(L) 11.2 - 15.7 GM/DL 02/08/2025 6:12 AM EDT [facility] Hematocrit 25.8(L) 34.1 - 44.9 % 02/08/2025 6:12 AM EDT [facility] MCV 94 79 - 95 fL 02/08/2025 6:12 AM EDT [facility] MCH 29.5 25.6 - 32.2 pg 02/08/2025 6:12 AM EDT [facility] MCHC 31.4(L) 32.2 - 35.5 GM/DL 02/08/2025 6:12 AM EDT [facility] RDW 14.2 11.7 - 14.4 % 02/08/2025 6:12 AM EDT [facility] Platelets 315 140 - 375 K/CU MM 02/08/2025 6:12 AM EDT [facility] MPV 9.0(L) 9.4 - 12.3 fL 02/08/2025 6:12 AM EDT [facility] NRBC Absolute <0.01 0 - 0.012 K/ul 02/08/2025 6:12 AM EDT [facility] Blood Venipuncture / Unknown 02/08/2025 4:41 AM EDT 02/08/2025 5:01 AM EDT Narrative [facility] - 02/08/2025 6:12 AM EDT When CBC w/ Auto Diff is ordered the lab will add a Manual Differential as a quality check at no additional charge if: Lymphocytes greater than seventy five percent with normal or increased WBC Monocytes greater than Fifteen percent Basophil greater than four percent Bands >10% or several immature myeloids are seen on scan Blast? Flag noted Atypical Lymph flag noted Narairis Aguilar [facility] LAB BLOOD ORDERABLES Fi nal Result [facility] [address] [phone] * (ABNORMAL) Hemoglobin and hematocrit (02/07/2025 5:51 PM EDT) Hemoglobin 8.3(L) 11.2 - 15.7 GM/DL 02/07/2025 6:47 PM EDT [facility] Hematocrit 26.9(L) 34.1 - 44.9 % 02/07/2025 6:47 PM EDT [facility] Blood Venipuncture / Unknown 02/07/2025 5:51 PM EDT 02/07/2025 6:45 PM EDT Narairis Aguilar [facility] LAB BLOOD ORDERABLES Fi nal Result [facility] [address] [phone] * (ABNORMAL) Basic Metabolic Panel (02/07/2025 5:18 AM EDT) Sodium 136 136 - 145 meq/L 02/07/2025 6:20 AM EDT [facility] Potassium 4.9 3.4 - 5.1 meq/L 02/07/2025 6:20 AM EDT [facility] CO2 29 22 - 29 meq/L 02/07/2025 6:20 AM EDT [facility] Chloride 99 98 - 112 meq/L 02/07/2025 6:20 AM EDT [facility] Glucose 85 82 - 115 mg/dL 02/07/2025 6:20 AM EDT [facility] BUN 13.0 9.8 - 20.1 mg/dL 02/07/2025 6:20 AM EDT [facility] Creatinine 0.84 0.57 - 1.11 mg/dL 02/07/2025 6:20 AM EDT [facility] BUN/Creatinine 15 8 - 20 02/07/2025 6:20 AM EDT [facility] Calcium 10.0 8.4 - 10.2 mg/dL 02/07/2025 6:20 AM EDT [facility] Anion Gap 13(H) 4 - 12 02/07/2025 6:20 AM EDT [facility] eGFR (mL/min/1.73m2) 75 >=60 mL/min/1.7 3m2 02/07/2025 6:20 AM EDT [facility] Osmolality Calc 271.3 mOsm/kg 6:20 AM EDT [facility] Blood Venipuncture / Unknown 02/07/2025 5:18 AM EDT 02/07/2025 5:59 AM EDT us Von Sloan PA-C LAB BLOOD ORDERABLES Final Res ult Performing Organization Address City/State/[facility] Co de Phone Number [facility] [address] [phone] * (ABNORMAL) CBC - Hemogram ([facility]J-BKR) (02/07/2025 5:18 AM EDT) WBC 11.6(H) 4.0 - 10.0 K/ L 02/07/2025 6:04 AM EDT [facility] RBC 3.14(L) 3.93 - 5.22 M/ L 02/07/2025 6:04 AM EDT [facility] Hemoglobin 9.1(L) 11.2 - 15.7 GM/DL 02/07/2025 6:04 AM EDT [facility] Hematocrit 30.4(L) 34.1 - 44.9 % 02/07/2025 6:04 AM EDT [facility] MCV 97(H) 79 - 95 fL 02/07/2025 6:04 AM EDT [facility] MCH 29.0 25.6 - 32.2 pg 02/07/2025 6:04 AM EDT [facility] MCHC 29.9(L) 32.2 - 35.5 GM/DL 02/07/2025 6:04 AM EDT [facility] RDW 14.5(H) 11.7 - 14.4 % 02/07/2025 6:04 AM EDT [facility] Platelets 340 140 - 375 K/CU MM 02/07/2025 6:04 AM EDT [facility] MPV 9.1(L) 9.4 - 12.3 fL 02/07/2025 6:04 AM EDT [facility] Blood Venipuncture / Unknown 02/07/2025 5:18 AM EDT 02/07/2025 5:58 AM EDT us Von Sloan PA-C LAB BLOOD ORDERABLES Final Res ult [facility] [address] [place] [address] * (ABNORMAL) Hemoglobin and hematocrit (02/06/2025 8:22 PM EDT) Hemoglobin 9.0(L) 11.2 - 15.7 GM/DL 02/06/2025 8:28 PM EDT [facility] Hematocrit 29.3(L) 34.1 - 44.9 % 02/06/2025 8:28 PM EDT [facility] Blood Venipuncture / Unknown 02/06/2025 8:22 PM EDT 02/06/2025 8:25 PM EDT us Bear Whitney PA-C LAB BLOOD ORDERABLES Final Resul t [facility] [address] [place] [address], [facility] [phone] * CTA abdomen & pelvis (02/06/2025 7:19 PM EDT) Anatomical Region Laterality Modality Abdomen, Pelvis Computed Tomogra phy (CT) 02/06/2025 9:35 PM EDT Impressions 02/06/2025 9:54 PM EDT 1. No pulmonary embolus, aortic aneurysm or dissection. 2. Multifocal probable neoplastic lesions, as described above. Follow-up with pulmonology is recommended, and a PET/CT should be considered. 3. Findings in the esophagus could reflect esophageal variceal hemorrhage, but are indeterminate. Recommend GI consult. 4. Large volume of stool in the rectum and sigmoid, correlate with constipation. No bowel obstruction. 5. Prominent rugal folds versus focal gastric varices identified in the mid stomach. 6. 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 Vascular surgery follow-up is recommended. Images reviewed, interpreted, and dictated by Dr. Reymundo Salamanca. Transcribed by Gareth Meza. Narrative 02/06/2025 9:54 PM EDT CTA/PE PROTOCOL CHEST CT AND CTA SCAN OF THE ABDOMEN AND PELVIS WITH CONTRAST: 02/06/2025 7:11 PM CLINICAL INDICATION: Concern for esophageal varices. Hemoptysis/hematemesis/bleeding. TECHNIQUE: Multiple axial CT images were obtained through the chest following IV contrast utilizing a CTA/PE protocol. 3D/MIP Reconstruction images were also performed. Axial CTA images were also obtained from the lung bases to the pubic symphysis following IV contrast administration according to the CTA abdomen and pelvis protocol. Coronal and sagittal reformatted images were generated from the axial data set and provided for interpretation. These studies were performed with techniques to keep radiation doses as low as reasonably achievable, (ALARA). Individualized dose reduction techniques using automated exposure control or adjustment of mA and/or kV according to the patient size were employed. COMPARISON: None. FINDINGS: PA's and Aorta: No pulmonary embolus. No pulmonary embolism or aneurysm. Thoracic aorta is normal in caliber. Moderate to severe atherosclerotic calcifications in the aorta and major branch vessels. Multifocal coronary artery calcifications. Heart/mediastinum: No evidence for right heart strain. No pericardial effusion. The heart is normal in size. Lungs/Pleura: There is a 3.0 cm spiculated mass in the left lung apex (image 42, series 2). There are multiple spiculated nodules in the left upper lobe on image 63 of series 2. A spiculated nodule measuring 25 mm in the posterior right upper lobe on image 78, series 2. Spiculated nodule measuring 27 mm in the left lower lobe. Spiculated 18 mm nodule in the left lower lobe on image 139. There is a small area of consolidative changes in the lingula. Numerous shotty lymph nodes are in the mediastinum and hilar regions. There is mural thickening throughout the visualized esophagus which is more pronounced distally. There is contrast density layering dependently in the distal esophagus (image 113-129) disease which is indeterminate without multiple contrast phase series. This could represent variceal hemorrhage. There is prominent rugal folds/and/or vessels in the posterior proximal stomach. These could reflect gastric varices. No pneumothorax or pleural effusion. Lymph nodes: No pathologically enlarged thoracic lymph nodes. Chest wall: No acute findings. Bones: No acute fracture. ABDOMEN/PELVIS: VASCULAR: Moderate to severe atherosclerotic changes are noted in the aorta and major branch vessels. There is moderate atherosclerotic calcification at the origin of the celiac and the SMA. There is moderate stenosis at the origin of both renal arteries. The TERRY appears patent. The abdominal aorta is normal in caliber. . The common, internal and external iliac arteries are patent. The visualized portions of the common, superficial and deep femoral arteries are patent and unremarkable. The superior mesenteric vein, splenic vein and main portal veins are patent. The inferior vena cava is unremarkable. Liver, gallbladder and bile ducts: Early morphologic features of cirrhosis are noted. Unremarkable gallbladder. No significant biliary ductal dilatation. Adrenal glands: The adrenal glands are morphologically unremarkable without suspicious lesion. Kidneys, ureters and urinary bladder: There are multiple focal renal cysts. No suspicious renal lesions. No hydronephrosis. Unremarkable urinary bladder. Spleen: The spleen is normal in size. Pancreas: The pancreas is unremarkable. Gastrointestinal system and mesentery: There is prominent rugal folds/and/or vessels in the posterior proximal stomach. These could reflect gastric varices. There is a large volume of stool within the sigmoid and rectum. There is a small to medium-sized hiatal hernia containing a portion of the stomach. There is no evidence of bowel obstruction. The appendix is visualized and unremarkable. No significant mesenteric inflammation. Lymph nodes: No pathologically enlarged abdominal or pelvic lymph nodes are present. Peritoneum: No free intraperitoneal fluid or pneumoperitoneum. Pelvic viscera: No acute findings. Genital organs are unremarkable. No findings to suggest ovarian torsion. Body wall: No acute findings. No significant body wall hernias. Bones: No acute fracture. Procedure Note Reymundo Salamanca MD - 02/06/2025 CTA/PE PROTOCOL CHEST CT AND CTA SCAN OF THE ABDOMEN AND PELVIS WITH CONTRAST: 02/06/2025 7:11 PM CLINICAL INDICATION: Concern for esophageal varices. Hemoptysis/hematemesis/bleeding. TECHNIQUE: Multiple axial CT images were obtained through the chest following IV contrast utilizing a CTA/PE protocol. 3D/MIP Reconstruction images were also performed. Axial CTA images were also obtained from the lung bases to the pubic symphysis following IV contrast administration according to the CTA abdomen and pelvis protocol. Coronal and sagittal reformatted images were generated from the axial data set and provided for interpretation. These studies were performed with techniques to keep radiation doses as low as reasonably achievable, (ALARA). Individualized dose reduction techniques using automated exposure control or adjustment of mA and/or kV according to the patient size were employed. COMPARISON: None. FINDINGS: PA's and Aorta: No pulmonary embolus. No pulmonary embolism or aneurysm. Thoracic aorta is normal in caliber. Moderate to severe atherosclerotic calcifications in the aorta and major branch vessels. Multifocal coronary artery calcifications. Heart/mediastinum: No evidence for right heart strain. No pericardial effusion. The heart is normal in size. Lungs/Pleura: There is a 3.0 cm spiculated mass in the left lung apex (image 42, series 2). There are multiple spiculated nodules in the left upper lobe on image 63 of series 2. A spiculated nodule measuring 25 mm in the posterior right upper lobe on image 78, series 2. Spiculated nodule measuring 27 mm in the left lower lobe. Spiculated 18 mm nodule in the left lower lobe on image 139. There is a small area of consolidative changes in the lingula. Numerous shotty lymph nodes are in the mediastinum and hilar regions. There is mural thickening throughout the visualized esophagus which is more pronounced distally. There is contrast density layering dependently in the distal esophagus (image 113-129) disease which is indeterminate without multiple contrast phase series. This could represent variceal hemorrhage. There is prominent rugal folds/and/or vessels in the posterior proximal stomach. These could reflect gastric varices. No pneumothorax or pleural effusion. Lymph nodes: No pathologically enlarged thoracic lymph nodes. Chest wall: No acute findings. Bones: No acute fracture. ABDOMEN/PELVIS: VASCULAR: Moderate to severe atherosclerotic changes are noted in the aorta and major branch vessels. There is moderate atherosclerotic calcification at the origin of the celiac and the SMA. There is moderate stenosis at the origin of both renal arteries. The TERRY appears patent. The abdominal aorta is normal in caliber. . The common, internal and external iliac arteries are patent. The visualized portions of the common, superficial and deep femoral arteries are patent and unremarkable. The superior mesenteric vein, splenic vein and main portal veins are patent. The inferior vena cava is unremarkable. Liver, gallbladder and bile ducts: Early morphologic features of cirrhosis are noted. Unremarkable gallbladder. No significant biliary ductal dilatation. Adrenal glands: The adrenal glands are morphologically unremarkable without suspicious lesion. Kidneys, ureters and urinary bladder: There are multiple focal renal cysts. No suspicious renal lesions. No hydronephrosis. Unremarkable urinary bladder. Spleen: The spleen is normal in size. Pancreas: The pancreas is unremarkable. Gastrointestinal system and mesentery: There is prominent rugal folds/and/or vessels in the posterior proximal stomach. These could reflect gastric varices. There is a large volume of stool within the sigmoid and rectum. There is a small to medium-sized hiatal hernia containing a portion of the stomach. There is no evidence of bowel obstruction. The appendix is visualized and unremarkable. No significant mesenteric inflammation. Lymph nodes: No pathologically enlarged abdominal or pelvic lymph nodes are present. Peritoneum: No free intraperitoneal fluid or pneumoperitoneum. Pelvic viscera: No acute findings. Genital organs are unremarkable. No findings to suggest ovarian torsion. Body wall: No acute findings. No significant body wall hernias. Bones: No acute fracture. IMPRESSION: 1. No pulmonary embolus, aortic aneurysm or dissection. 2. Multifocal probable neoplastic lesions, as described above. Follow-up with pulmonology is recommended, and a PET/CT should be considered. 3. Findings in the esophagus could reflect esophageal variceal hemorrhage, but are indeterminate. Recommend GI consult. 4. Large volume of stool in the rectum and sigmoid, correlate with constipation. No bowel obstruction. 5. Prominent rugal folds versus focal gastric varices identified in the mid stomach. 6. 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 Vascular surgery follow-up is recommended. Images reviewed, interpreted, and dictated by Dr. Reymundo Salamanca. Transcribed by Gareth Meza. Laura Gibson [facility] CT ORDERABLES Final Result * CTA chest (02/06/2025 7:17 PM EDT) Anatomical Region Laterality Modality Chest, Lung Computed Tomogra phy (CT) 02/06/2025 9:35 PM EDT Impressions 02/06/2025 9:54 PM EDT 1. No pulmonary embolus, aortic aneurysm or dissection. 2. Multifocal probable neoplastic lesions, as described above. Follow-up with pulmonology is recommended, and a PET/CT should be considered. 3. Findings in the esophagus could reflect esophageal variceal hemorrhage, but are indeterminate. Recommend GI consult. 4. Large volume of stool in the rectum and sigmoid, correlate with constipation. No bowel obstruction. 5. Prominent rugal folds versus focal gastric varices identified in the mid stomach. 6. 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 Vascular surgery follow-up is recommended. Images reviewed, interpreted, and dictated by Dr. Reymundo Salamanca. Transcribed by Gareth Meza. Narrative 02/06/2025 9:54 PM EDT CTA/PE PROTOCOL CHEST CT AND CTA SCAN OF THE ABDOMEN AND PELVIS WITH CONTRAST: 02/06/2025 7:11 PM CLINICAL INDICATION: Concern for esophageal varices. Hemoptysis/hematemesis/bleeding. TECHNIQUE: Multiple axial CT images were obtained through the chest following IV contrast utilizing a CTA/PE protocol. 3D/MIP Reconstruction images were also performed. Axial CTA images were also obtained from the lung bases to the pubic symphysis following IV contrast administration according to the CTA abdomen and pelvis protocol. Coronal and sagittal reformatted images were generated from the axial data set and provided for interpretation. These studies were performed with techniques to keep radiation doses as low as reasonably achievable, (ALARA). Individualized dose reduction techniques using automated exposure control or adjustment of mA and/or kV according to the patient size were employed. COMPARISON: None. FINDINGS: PA's and Aorta: No pulmonary embolus. No pulmonary embolism or aneurysm. Thoracic aorta is normal in caliber. Moderate to severe atherosclerotic calcifications in the aorta and major branch vessels. Multifocal coronary artery calcifications. Heart/mediastinum: No evidence for right heart strain. No pericardial effusion. The heart is normal in size. Lungs/Pleura: There is a 3.0 cm spiculated mass in the left lung apex (image 42, series 2). There are multiple spiculated nodules in the left upper lobe on image 63 of series 2. A spiculated nodule measuring 25 mm in the posterior right upper lobe on image 78, series 2. Spiculated nodule measuring 27 mm in the left lower lobe. Spiculated 18 mm nodule in the left lower lobe on image 139. There is a small area of consolidative changes in the lingula. Numerous shotty lymph nodes are in the mediastinum and hilar regions. There is mural thickening throughout the visualized esophagus which is more pronounced distally. There is contrast density layering dependently in the distal esophagus (image 113-129) disease which is indeterminate without multiple contrast phase series. This could represent variceal hemorrhage. There is prominent rugal folds/and/or vessels in the posterior proximal stomach. These could reflect gastric varices. No pneumothorax or pleural effusion. Lymph nodes: No pathologically enlarged thoracic lymph nodes. Chest wall: No acute findings. Bones: No acute fracture. ABDOMEN/PELVIS: VASCULAR: Moderate to severe atherosclerotic changes are noted in the aorta and major branch vessels. There is moderate atherosclerotic calcification at the origin of the celiac and the SMA. There is moderate stenosis at the origin of both renal arteries. The TERRY appears patent. The abdominal aorta is normal in caliber. . The common, internal and external iliac arteries are patent. The visualized portions of the common, superficial and deep femoral arteries are patent and unremarkable. The superior mesenteric vein, splenic vein and main portal veins are patent. The inferior vena cava is unremarkable. Liver, gallbladder and bile ducts: Early morphologic features of cirrhosis are noted. Unremarkable gallbladder. No significant biliary ductal dilatation. Adrenal glands: The adrenal glands are morphologically unremarkable without suspicious lesion. Kidneys, ureters and urinary bladder: There are multiple focal renal cysts. No suspicious renal lesions. No hydronephrosis. Unremarkable urinary bladder. Spleen: The spleen is normal in size. Pancreas: The pancreas is unremarkable. Gastrointestinal system and mesentery: There is prominent rugal folds/and/or vessels in the posterior proximal stomach. These could reflect gastric varices. There is a large volume of stool within the sigmoid and rectum. There is a small to medium-sized hiatal hernia containing a portion of the stomach. There is no evidence of bowel obstruction. The appendix is visualized and unremarkable. No significant mesenteric inflammation. Lymph nodes: No pathologically enlarged abdominal or pelvic lymph nodes are present. Peritoneum: No free intraperitoneal fluid or pneumoperitoneum. Pelvic viscera: No acute findings. Genital organs are unremarkable. No findings to suggest ovarian torsion. Body wall: No acute findings. No significant body wall hernias. Bones: No acute fracture. Procedure Note Reymundo Salamanca MD - 02/06/2025 CTA/PE PROTOCOL CHEST CT AND CTA SCAN OF THE ABDOMEN AND PELVIS WITH CONTRAST: 02/06/2025 7:11 PM CLINICAL INDICATION: Concern for esophageal varices. Hemoptysis/hematemesis/bleeding. TECHNIQUE: Multiple axial CT images were obtained through the chest following IV contrast utilizing a CTA/PE protocol. 3D/MIP Reconstruction images were also performed. Axial CTA images were also obtained from the lung bases to the pubic symphysis following IV contrast administration according to the CTA abdomen and pelvis protocol. Coronal and sagittal reformatted images were generated from the axial data set and provided for interpretation. These studies were performed with techniques to keep radiation doses as low as reasonably achievable, (ALARA). Individualized dose reduction techniques using automated exposure control or adjustment of mA and/or kV according to the patient size were employed. COMPARISON: None. FINDINGS: PA's and Aorta: No pulmonary embolus. No pulmonary embolism or aneurysm. Thoracic aorta is normal in caliber. Moderate to severe atherosclerotic calcifications in the aorta and major branch vessels. Multifocal coronary artery calcifications. Heart/mediastinum: No evidence for right heart strain. No pericardial effusion. The heart is normal in size. Lungs/Pleura: There is a 3.0 cm spiculated mass in the left lung apex (image 42, series 2). There are multiple spiculated nodules in the left upper lobe on image 63 of series 2. A spiculated nodule measuring 25 mm in the posterior right upper lobe on image 78, series 2. Spiculated nodule measuring 27 mm in the left lower lobe. Spiculated 18 mm nodule in the left lower lobe on image 139. There is a small area of consolidative changes in the lingula. Numerous shotty lymph nodes are in the mediastinum and hilar regions. There is mural thickening throughout the visualized esophagus which is more pronounced distally. There is contrast density layering dependently in the distal esophagus (image 113-129) disease which is indeterminate without multiple contrast phase series. This could represent variceal hemorrhage. There is prominent rugal folds/and/or vessels in the posterior proximal stomach. These could reflect gastric varices. No pneumothorax or pleural effusion. Lymph nodes: No pathologically enlarged thoracic lymph nodes. Chest wall: No acute findings. Bones: No acute fracture. ABDOMEN/PELVIS: VASCULAR: Moderate to severe atherosclerotic changes are noted in the aorta and major branch vessels. There is moderate atherosclerotic calcification at the origin of the celiac and the SMA. There is moderate stenosis at the origin of both renal arteries. The TERRY appears patent. The abdominal aorta is normal in caliber. . The common, internal and external iliac arteries are patent. The visualized portions of the common, superficial and deep femoral arteries are patent and unremarkable. The superior mesenteric vein, splenic vein and main portal veins are patent. The inferior vena cava is unremarkable. Liver, gallbladder and bile ducts: Early morphologic features of cirrhosis are noted. Unremarkable gallbladder. No significant biliary ductal dilatation. Adrenal glands: The adrenal glands are morphologically unremarkable without suspicious lesion. Kidneys, ureters and urinary bladder: There are multiple focal renal cysts. No suspicious renal lesions. No hydronephrosis. Unremarkable urinary bladder. Spleen: The spleen is normal in size. Pancreas: The pancreas is unremarkable. Gastrointestinal system and mesentery: There is prominent rugal folds/and/or vessels in the posterior proximal stomach. These could reflect gastric varices. There is a large volume of stool within the sigmoid and rectum. There is a small to medium-sized hiatal hernia containing a portion of the stomach. There is no evidence of bowel obstruction. The appendix is visualized and unremarkable. No significant mesenteric inflammation. Lymph nodes: No pathologically enlarged abdominal or pelvic lymph nodes are present. Peritoneum: No free intraperitoneal fluid or pneumoperitoneum. Pelvic viscera: No acute findings. Genital organs are unremarkable. No findings to suggest ovarian torsion. Body wall: No acute findings. No significant body wall hernias. Bones: No acute fracture. IMPRESSION: 1. No pulmonary embolus, aortic aneurysm or dissection. 2. Multifocal probable neoplastic lesions, as described above. Follow-up with pulmonology is recommended, and a PET/CT should be considered. 3. Findings in the esophagus could reflect esophageal variceal hemorrhage, but are indeterminate. Recommend GI consult. 4. Large volume of stool in the rectum and sigmoid, correlate with constipation. No bowel obstruction. 5. Prominent rugal folds versus focal gastric varices identified in the mid stomach. 6. 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 Vascular surgery follow-up is recommended. Images reviewed, interpreted, and dictated by Dr. Reymundo Salamanca. Transcribed by Gaerth Meza. Laura Gibson DO IMG CT ORDERABLES Final Result * (ABNORMAL) CBC with Auto Diff (02/06/2025 6:25 PM EDT) WBC 11.1(H) 4.0 - 10.0 K/ L 02/06/2025 7:07 [facility] RBC 3.47(L) 3.93 - 5.22 M/ L 02/06/2025 7:07 PM EDT [facility] Hemoglobin 10.2(L) 11.2 - 15.7 GM/DL 02/06/2025 7:07 PM [facility] Hematocrit 32.6(L) 34.1 - 44.9 % 02/06/2025 7:07 PM [facility] MCV 94 79 - 95 fL 02/06/2025 7:07 PM [facility] MCH 29.4 25.6 - 32.2 pg 02/06/2025 7:07 PM [facility] MCHC 31.3(L) 32.2 - 35.5 GM/DL 02/06/2025 7:07 PM [facility] RDW 14.6(H) 11.7 - 14.4 % 02/06/2025 7:07 PM [facility] Platelets 414(H) 140 - 375 K/CU MM 02/06/2025 7:07 PM EDT [facility] MPV 9.3(L) 9.4 - 12.3 fL 02/06/2025 7:07 PM EDT [facility] % Neutros 68 34 - 71 % 02/06/2025 7:07 PM EDT [facility] % Lymphs 23 19 - 52 % 02/06/2025 7:07 PM EDT [facility] % Monos 7 5 - 13 % 02/06/2025 7:07 PM EDT [facility] % Eos 2 1 - 6 % 02/06/2025 7:07 PM EDT [facility] % Baso 1 0 - 1 % 02/06/2025 7:07 PM EDT [facility] NRBC Absolute <0.01 0 - 0.012 K/ul 02/06/2025 7:07 PM EDT [facility] # Neutros 7.57(H) 1.56 - 6.13 K/ L 02/06/2025 7:07 PM EDT [facility] # Lymphs 2.55 1.18 - 3.74 K/ L 02/06/2025 7:07 PM EDT [facility] # Monos 0.72 0.24 - 0.86 K/ L 02/06/2025 7:07 PM EDT [facility] # Eos 0.18 0.04 - 0.36 K/ L 02/06/2025 7:07 PM EDT [facility] # Baso 0.07 0.01 - 0.08 K/ L 02/06/2025 7:07 PM EDT [facility] Immature Granulocytes-Re lative 0.40 0.01 - 0.43 % 02/06/2025 7:07 PM EDT [facility] # IG 0.04(H) 0.00 - 0.03 K/uL 02/06/2025 7:07 PM EDT [facility] Blood Venipuncture / Unknown 02/06/2025 6:25 PM EDT 02/06/2025 7:04 PM EDT Narrative [facility] - 02/06/2025 7:07 PM EDT When CBC w/ Auto Diff is ordered the lab will add a Manual Differential as a quality check at no additional charge if: Lymphocytes greater than seventy five percent with normal or increased WBC Monocytes greater than Fifteen percent Basophil greater than four percent Bands >10% or several immature myeloids are seen on scan Blast? Flag noted Atypical Lymph flag noted Laura Gibson DO LAB BLOOD ORDERABLES Final Resu lt Performing Organization Address [facility]/ZIP Co de Phone Number [facility] [address] [phone] * Type and Screen (02/06/2025 6:23 PM EDT) ABO/Rh O Positive 02/06/2025 6:05 PM EDT [facility] [place] Antibody Screen Negative 02/06/2025 6:05 PM EDT [facility] [place] HISTCHK HIST CHECK PERFORMED 02/06/2025 6:05 PM EDT [facility] [place] Blood Venipuncture / Unknown 02/06/2025 6:23 PM EDT 02/06/2025 7:04 PM EDT us Laura Gibson DO [facility] TEST ORDERABLES Final Result Performing Organization Address [facility] Co de Phone Number [facility] ([place]) [address] [place] [address] * (ABNORMAL) aPTT (02/06/2025 6:23 PM EDT) aPTT 32.8(H) 22.0 - 32.0 seconds 02/06/2025 7:21 PM EDT [facility] Blood Venipuncture / Unknown 02/06/2025 6:23 PM EDT 02/06/2025 7:04 PM EDT us Laura Gibson DO LAB BLOOD ORDERABLES Final Resu lt Performing Organization Address [facility]/ZIP Co de Phone Number [facility] [address] [phone] * Prothrombin time/INR (02/06/2025 6:23 PM EDT) [facility] Protime 10.4 9.0 - 12.0 seconds 02/06/2025 7:21 PM EDT [facility] INR 0.93 0.80 - 1.10 02/06/2025 7:21 PM EDT [facility] Comment: Recommended therapeutic ranges using International Normalized Ratio (INR) are: INR RANGE 2.0 - 3.0 Routine oral anticoagulant therapy 2.5 - 3.5 Oral anticoagulant therapy for patients with thromboembolic events on standard doses of Coumadin and those with mechanical heart valves. Blood Venipuncture / Unknown 02/06/2025 6:23 PM EDT 02/06/2025 7:04 PM EDT [email or web address] LAB BLOOD ORDERABLES Final Resu lt Performing Organization Address [facility] Co de Phone Number [facility] [address] [phone] * High Sensitivity Troponin I (02/06/2025 6:23 PM EDT) [facility] Troponin I High Sensitivity (pg/mL) 12.2 <=14 pg/mL 02/06/2025 7:29 PM EDT [facility] Blood Venipuncture / Unknown 02/06/2025 6:23 PM EDT 02/06/2025 7:04 PM EDT Narrative [facility] - 02/06/2025 7:29 PM EDT Applicable to [facility] only. Effective October 06 the lab will begin using a new chemistry analyzer. HsTroponin methodology, reference ranges and critical values have changed. [email or web address] [facility] BLOOD ORDERABLES Final Resu lt Performing Organization Address [facility]/ZIP Co de Phone Number [facility] [address] [phone] * Magnesium (02/06/2025 6:23 PM EDT) Magnesium 1.9 1.6 - 2.6 mg/dL 02/06/2025 7:26 PM EDT [facility] Blood Venipuncture / Unknown 02/06/2025 6:23 PM EDT 02/06/2025 7:04 PM EDT us Laura Gibson DO LAB BLOOD ORDERABLES Final Resu lt [facility] [address] [phone] * (ABNORMAL) Comprehensive metabolic panel (02/06/2025 6:23 PM EDT) Sodium 137 136 - 145 meq/L 02/06/2025 7:26 PM EDT [facility] Potassium 5.1 3.4 - 5.1 meq/L 02/06/2025 7:26 PM EDT [facility] Chloride 93(L) 98 - 112 meq/L 02/06/2025 7:26 PM EDT [facility] CO2 36(H) 22 - 29 meq/L 02/06/2025 7:26 PM EDT [facility] Calcium 11.6(H) 8.4 - 10.2 mg/dL 02/06/2025 7:26 PM EDT [facility] Glucose 104 82 - 115 mg/dL 02/06/2025 7:26 PM EDT [facility] BUN 13.4 9.8 - 20.1 mg/dL 02/06/2025 7:26 PM EDT [facility] Creatinine 1.00 0.57 - 1.11 mg/dL 02/06/2025 7:26 PM EDT [facility] BUN/Creatinine 13 8 - 20 02/06/2025 7:26 PM EDT [facility] eGFR (mL/min/1.73m2) 61 >=60 mL/min/1. 73m2 02/06/2025 7:26 PM EDT [facility] Albumin 2.9(L) 3.5 - 5.0 g/dL 02/06/2025 7:26 PM EDT [facility] Alkaline Phosphatase 53 40 - 150 U/L 02/06/2025 7:26 PM EDT [facility] ALT 8 <=34 U/L 02/06/2025 7:26 PM EDT [facility] Comment: ALT2 reagent used for testing does not contain P5P supplementation and therefore may miss ALT elevations in patients with B6 deficiency. This population may be as high as 10% in the [place], with risk factors including malabsorption, drug interactions, and alcoholic hepatitis. AST 14 11 - 34 U/L 02/06/2025 7:26 PM EDT [facility] Comment: AST2 reagent used for testing does not contain P5P supplementation and therefore may miss AST elevations in patients with B6 deficiency. This population may be as high as 10% in the [place], with risk factors including malabsorption, drug interactions, and alcoholic hepatitis. Total Bilirubin 0.2 0.2 - 1.2 mg/dL 02/06/2025 7:26 PM EDT [facility] Protein, Total 6.5 6.4 - 8.3 g/dL 02/06/2025 7:26 PM EDT [facility] Globulin 3.6 2.5 - 4.1 g/dL 02/06/2025 7:26 PM EDT [facility] Anion Gap 13(H) 4 - 12 02/06/2025 7:26 PM EDT [facility] A/G Ratio 0.8 0.7 - 1.9 02/06/2025 7:26 PM EDT [facility] Osmolality Calc 274.4 mOsm/kg 7:26 PM EDT [facility] Blood Venipuncture / Unknown 02/06/2025 6:23 PM EDT 02/06/2025 7:04 PM EDT us Laura Gibson DO LAB BLOOD ORDERABLES Final Resu lt [facility] [address] [phone] * ECG 12 lead (02/06/2025 5:41 PM EDT) VENTRICULAR RATE EKG/MIN 67 BPM GE MUSE ATRIAL RATE (MCT) 69 BPM GE MUSE AR Interval 152 ms GE MUSE QRS-INTERVAL (MSEC) 80 ms GE MUSE QT Interval 386 ms GE MUSE QTC Interval 407 ms GE MUSE P Bennet 57 degrees GE MUSE R AXIS (MCT) -71 degrees GE MUSE T Wave Bennet 40 degrees GE MUSE Recluse Diagnosis Age and gender specific ECG analysis Normal sinus rhythm Left axis deviation Abnormal ECG When compared with ECG of 06-OCT-2024 19:45, Significant changes have occurred Confirmed by Margret Pardo MD ([id number]) on 02/08/2025 5:26:45 PM GE MUSE 02/06/2025 5:41 PM EDT 02/08/2025 5:26 PM EDT us Laura Gibson DO ECG ORDERABLES Final Result GE MUSE * EKG-SCANNED (02/06/2025) Narrative 02/06/2025 Ordered by an unspecified provider. us Default Scanning Provider SCAN ORDERS Final Result documented in this encounter Visit Diagnoses Diagnosis Nusrat-Prajapati tear- Primary Gastroesophageal laceration-hemorrhage syndrome Hematemesis with nausea Hematemesis Nusrat-Prajapati tear Gastroesophageal laceration-hemorrhage syndrome Hematemesis, unspecified whether nausea present Anticoagulated on Eliquis Malignant neoplasm of lung, unspecified laterality, unspecified part of lung (HCC) Tobacco abuse Tobacco use disorder documented in this encounter Admitting Diagnoses Diagnosis Hematemesis Acute upper GI bleed Unspecified, hemorrhage of gastrointestinal tract Nusrat-Prajapati tear Gastroesophageal laceration-hemorrhage syndrome documented in this encounter Administered Medications Inactive Administered Medications - up to 3 most recent administrations Medication Order MAR Action Action Date Dose Rate Site budesonide (PULMICORT) nebulizer suspension 0.5 mg 0.5 mg 2 times daily (RT), nebulization, First dose on Sat02/08/25 at 2000, *RESPIRATORY THERAPY TREATMENT*, What is the respiratory therapy Modality? Small volume Nebulization Given 02/09/2025 7:43 AM EDT 0.5 mg Given 02/08/2025 7:41 PM EDT 0.5 mg cefTRIAXone (ROCEPHIN) 1 g in sodium chloride 0.9 % (NS) 50 mL LANA IVPB 1 g Every 24 hours, intravenous, at 100 mL/hr, First dose (after last modification) on 02/07/25 at 0900, For 7 days, Please choose an indication: Other Indication, Explanatory comment: Nusrat-Prajapati tear/esophageal varices bleed prophylaxis IVPB Started 02/09/2025 9:00 AM EDT 1 g 100 m L/hr IVPB Started 02/08/2025 9:00 AM EDT 1 g 100 mL/hr IVPB Started 02/07/2025 9:00 AM EDT 1 g 100 mL/hr hydrALAZINE (APRESOLINE) injection 5 mg 5 mg Every 6 hours PRN, intravenous, hypertension (sbp greater than 160), Starting on 02/06/25 at 2246, Hold if SBP < 100 mmHg, DBP < 50 mmHg, or patient is on pressor. Look-alike/Sound-alike medication Given 02/08/2025 9:16 PM EDT 5 mg Given 02/08/2025 10:27 AM EDT 5 mg iopamidoL (ISOVUE-370) 370 mg iodine /mL (76 %) injection 100 mL 100 mL Once, intravenous, On 02/06/25 at 1930, For 1 dose, Intra-op Given 02/06/2025 7:16 PM EDT 100 mLs ipratropium-albuteroL (DUO-NEB) 0.5 mg-3 mg(2.5 mg base)/3 mL nebulizer solution 3 mL 3 mL Every 6 hours PRN, nebulization, wheezing, Starting on 02/07/25 at 1756, RESPIRATORY THERAPY TREATMENT Protect from Light, What is the respiratory therapy Modality? Small volume Nebulization ipratropium-albuteroL (DUO-NEB) 0.5 mg-3 mg(2.5 mg base)/3 mL nebulizer solution 3 mL 3 mL Every 4 hours (RT), nebulization, First dose on 02/07/25 at 2000, RESPIRATORY THERAPY TREATMENT Protect from Light, What is the respiratory therapy Modality? Small volume Nebulization Given 02/09/2025 11:05 AM EDT 3 mLs Given 02/09/2025 7:44 AM EDT 3 mLs Given 02/08/2025 11:09 PM EDT 3 mLs magnesium sulfate IVPB 2 g in sterile water 50 mL (premix) at 25 mL/hr, Administer over 120 Minutes, intravenous, Daily as needed, for magnesium level 1.3 to 1.7 mg/dL, Starting on 02/06/25 at 2245, If magnesium is replaced per protocol order, recheck 1 hour after replacement and the next morning. magnesium sulfate IVPB 2 g in sterile water 50 mL (premix) at 25 mL/hr, Administer over 120 Minutes, intravenous, 2 times daily PRN, for magnesium level less than 1.3 mg/dL, Starting on 02/06/25 at 2245, Total dose of 4 g for each low magnesium result. If magnesium is replaced per protocol order, recheck 1 hour after replacement and the next morning. metoclopramide HCl (REGLAN) injection 10 mg 10 mg Once, intravenous, On 02/06/25 at 1910, For 1 dose Given 02/06/2025 7:30 PM EDT 10 mg midazolam (VERSED) injection 4 mg 4 mg Once, intravenous, On 02/06/25 at 203, For 1 dose, Look-alike/Sound-alike medication. Contains Benzyl Alcohol, Intra-op Given 02/06/2025 8:32 PM EDT 4 mg ondansetron (ZOFRAN) injection 4 mg 4 mg Once, intravenous, On 02/06/25 at 1810, For 1 dose, For IV push, give over 2 - 5 minutes. Given 02/06/2025 6:47 PM EDT 4 mg ondansetron (ZOFRAN) injection 4 mg 4 mg Every 8 hours PRN, intravenous, nausea, vomiting, Starting on 02/06/25 at 2245, Give IV if patient is unable to take orally. 1st line If inadequate response within 60 minutes, proceed to next-line agent for same PRN reason or contact provider if no further options ordered. For IV push, give over 2 - 5 minutes. ondansetron (ZOFRAN-ODT) disintegrating tablet 4 mg 4 mg Every 8 hours PRN, oral, nausea, vomiting, Starting on 02/06/25 at 2245, 1st line. If inadequate response within 60 minutes, proceed to next-line agent for same PRN reason or contact provider if no further options ordered. pantoprazole (PROTONIX) injection 40 mg 40 mg 2 times daily, intravenous, First dose on 02/06/25 at 2100, * DILUTE IN 10 ML NS AND GIVE IV SLOWLY OVER 3 MINUTES * Given 02/09/2025 9:00 AM EDT 40 mg Given 02/08/2025 9:10 PM EDT 40 mg Given 02/08/2025 9:00 AM EDT 40 mg pantoprazole (PROTONIX) injection 80 mg 80 mg Once, intravenous, On 02/06/25 at 1810, For 1 dose, * DILUTE IN 10 ML NS AND GIVE IV SLOWLY OVER 3 MINUTES * Given 02/06/2025 6:47 PM EDT 80 mg potassium chloride IVPB 10 mEq in 100 mL sterile water (premix) 10 mEq Every hour PRN, intravenous, Administer over 60 Minutes, for potassium less than or equal to 3.4 mmol/L, Starting on 02/06/25 at 2245, Total Dose 40 mEq, use only if unable to administer PO. Max Rate 10mEq/hr. If potassium is replaced per protocol order, recheck 1 hour after replacement and the next morning. prothrombin complex (human) (KCENTRA) 2,178 Units in sterile water for injection (PF) 80 mL IVPB 2,178 Units Once, intravenous, Administer over 15 Minutes, On 02/06/25 at 1820, For 1 dose, Do NOT infuse with other medications. Administer up to a maximum rate of 504 mL/hr or 210 units/min. Administer at room temperature. No blood should enter the syringe as there is a possibility of fibrin clot formation. If reconstituted at bedside, use within 1 hour; if reconstituted in the pharmacy, use within 4 hours., [facility] is restricted for approved indications only. Choose an indication. Direct oral anticoagulant management - acute major bleeding IVPB Started 02/06/2025 6:52 PM EDT 2,178 Units 320 mL/hr sodium chloride 0.9 % infusion 50 mL/hr Continuous, intravenous, Starting on 02/06/25 at 2040, Intra-op Rate/Dose Verify 02/07/2025 6:00 PM EDT 50 mL/hr 50 mL/hr New Bag 02/07/2025 12:44 AM EDT 50 mL/hr 50 mL/hr New Bag 02/06/2025 8:36 PM EDT 50 mL/hr 50 mL/hr sodium chloride 0.9% (NS) bolus 500 mL Once, intravenous, Administer over 30 Minutes, On 02/06/25 at 2245, For 1 dose New Bag 02/06/2025 10:42 PM EDT 500 mLs 1000 mL/hr sucralfate (CARAFATE) 100 mg/mL suspension 1 g 1 g Every 6 hours scheduled, oral, First dose on 02/06/25 at 2024 Given 02/09/2025 8:00 AM EDT 1 g Given 02/09/2025 6:02 AM EDT 1 g Given 02/08/2025 6:21 PM EDT 1 g documented in this encounter Active and Recently Administered Medications Times are shown in EDT. Scheduled Medication Order 02/07/2025 02/08/2025 02/09/2025 budesonide (PULMICORT) nebulizer suspension 0.5 mg 0.5 mg 2 times daily (RT), nebulization, First dose on 02/08/25 at 2000, *RESPIRATORY THERAPY TREATMENT*, What is the respiratory therapy Modality? Small volume Nebulization 1940 (Given - Provider: Pete Mcnulty) 07 (Given - Provider: Dale Villalobos) cefTRIAXone (ROCEPHIN) 1 g in sodium chloride 0.9 % (NS) 50 mL LANA IVPB 1 g Every 24 hours, intravenous, at 100 mL/hr, First dose (after last modification) on 02/07/25 at 0900, For 7 days, Please choose an indication: Other Indication, Explanatory comment: Nusrat-Prajaptai tear/esophageal varices bleed prophylaxis 0900 (IVPB Started - Provider: Óscar Horowitz RN)0930 (IVPB Stopped - Provider: Óscar Horowitz RN) 0900 (IVPB Started - Provider: Óscar Horowitz RN)0930 (IVPB Stopped - Provider: Óscar Horowitz RN) 0900 (IVPB Started - Provider: Óscar Horowitz RN)0930 (Due: IVPB Stopped - Provider: Óscar Horowitz RN) ipratropium-albuteroL (DUO-NEB) 0.5 mg-3 mg(2.5 mg base)/3 mL nebulizer solution 3 mL 3 mL Every 4 hours (RT), nebulization, First dose on 02/07/25 at 2000, RESPIRATORY THERAPY TREATMENT Protect from Light, What is the respiratory therapy Modality? Small volume Nebulization 182 (Given - Provider: Sharona Maradiaga, HEAVENLY) 0043 (Given - Provider: Jordyn Garcia, MANAGER OB)0412 (Not Given - Provider: Jordyn Garcia, MANAGER OB - Reason: Patient/family refused)0740 (Given - Provider: Josee Lala, MANAGER OB)1025 (Given - Provider: Laura Falcon, SWITCH ADJUSTER)1530 (Given - Provider: Laura Falcon, SWITCH ADJUSTER)1940 (Given - Provider: Pete Mcnulty)2309 (Given - Provider: Pete Mcnulty) 0402 (Not Given - Provider: Pete Mcnulty - Reason: Patient/family refused)0744 (Given - Provider: Dale Villalobos)1105 (Given - Provider: Dale Villalobos) pantoprazole (PROTONIX) injection 40 mg 40 mg 2 times daily, intravenous, First dose on 02/06/25 at 2100, * DILUTE IN 10 ML NS AND GIVE IV SLOWLY OVER 3 MINUTES * 0900 (Given - Provider: Óscar Horowitz RN)2039 (Given - Provider: Mahogany Cortez RN) 0900 (Given - Provider: Óscar Horowitz RN)211 (Given - Provider: Mahogany Cortez RN) 0900 (Given - Provider: Óscar Horowitz RN) sucralfate (CARAFATE) 100 mg/mL suspension 1 g 1 g Every 6 hours scheduled, oral, First dose on 02/06/25 at 2024 0042 (Given - Provider: Chris Marx RN)0623 (Given - Provider: Chris Marx RN)1200 (Not Given - Provider: Óscar Horowitz RN - Reason: Medication/ Dose Unavailable)1837 (Given - Provider: Óscar Horowitz RN) 0059 (Not Given - Provider: Mahogany Cortez RN - Reason: Dose previously given)0652 (Given - Provider: Mahogany Cortez RN)1210 (Given - Provider: Óscar Horowitz RN)1821 (Given - Provider: Óscar Horowitz RN) 0602 (Given - Provider: Mahogany Cortez RN)0800 (Given - Provider: Óscar Horowitz RN)1200 (Due) Continuous Medication Order 02/07/2025 02/08/2025 02/09/2025 sodium chloride 0.9 % infusion (CANCELED) 50 mL/hr Continuous, intravenous, Starting on 02/06/25 at 2040, Intra-op 0044 (New Bag - Provider: Chris Marx RN)1800 (Rate/Dose Verify - Provider: Óscar Horowitz RN) PRN Medication Order 02/07/2025 02/08/2025 02/09/2025 hydrALAZINE (APRESOLINE) injection 5 mg 5 mg Every 6 hours PRN, intravenous, hypertension (sbp greater than 160), Starting on 02/06/25 at 2246, Hold if SBP < 100 mmHg, DBP < 50 mmHg, or patient is on pressor. Look-alike/Sound-alike medication 1027 (Given - Provider: Óscar Horowitz RN)2116 (Given - Provider: Mahogany Cortez RN) ipratropium-albuteroL (DUO-NEB) 0.5 mg-3 mg(2.5 mg base)/3 mL nebulizer solution 3 mL 3 mL Every 6 hours PRN, nebulization, wheezing, Starting on 02/07/25 at 1756, RESPIRATORY THERAPY TREATMENT Protect from Light, What is the respiratory therapy Modality? Small volume Nebulization magnesium sulfate IVPB 2 g in sterile water 50 mL (premix) at 25 mL/hr, Administer over 120 Minutes, intravenous, Daily as needed, for magnesium level 1.3 to 1.7 mg/dL, Starting on 02/06/25 at 2245, If magnesium is replaced per protocol order, recheck 1 hour after replacement and the next morning. magnesium sulfate IVPB 2 g in sterile water 50 mL (premix) at 25 mL/hr, Administer over 120 Minutes, intravenous, 2 times daily PRN, for magnesium level less than 1.3 mg/dL, Starting on 02/06/25 at 2245, Total dose of 4 g for each low magnesium result. If magnesium is replaced per protocol order, recheck 1 hour after replacement and the next morning. ondansetron (ZOFRAN) injection 4 mg(Linked Group 1) 4 mg Every 8 hours PRN, intravenous, nausea, vomiting, Starting on 02/06/25 at 2245, Give IV if patient is unable to take orally. 1st line If inadequate response within 60 minutes, proceed to next-line agent for same PRN reason or contact provider if no further options ordered. For IV push, give over 2 - 5 minutes. ondansetron (ZOFRAN-ODT) disintegrating tablet 4 mg(Linked Group 1) 4 mg Every 8 hours PRN, oral, nausea, vomiting, Starting on 02/06/25 at 2245, 1st line. If inadequate response within 60 minutes, proceed to next-line agent for same PRN reason or contact provider if no further options ordered. potassium chloride IVPB 10 mEq in 100 mL sterile water (premix) 10 mEq Every hour PRN, intravenous, Administer over 60 Minutes, for potassium less than or equal to 3.4 mmol/L, Starting on 02/06/25 at 2245, Total Dose 40 mEq, use only if unable to administer PO. Max Rate 10mEq/hr. If potassium is replaced per protocol order, recheck 1 hour after replacement and the next morning. Linked Groups Order Group 1: ondansetron (ZOFRAN-ODT) disintegrating tablet 4 mgJump to med 4 mg Every 8 hours PRN, oral, nausea, vomiting, Starting on 02/06/25 at 2245, 1st line. If inadequate response within 60 minutes, proceed to next-line agent for same PRN reason or contact provider if no further options ordered. Or ondansetron (ZOFRAN) injection 4 mgJump to med 4 mg Every 8 hours PRN, intravenous, nausea, vomiting, Starting on 02/06/25 at 2245, Give IV if patient is unable to take orally. 1st line If inadequate response within 60 minutes, proceed to next-line agent for same PRN reason or contact provider if no further options ordered. For IV push, give over 2 - 5 minutes. documented in this encounter Care Teams Proof Machine Operator Relationship Specialty Start Date End Date [facility], Provider Not In The System, [place] [address] PCP - General 02/06/25 documented as of this encounter
--- OUTSIDE RECORDS SUMMARY | 2025-02-06 19:00 | XMS_ITS | Encounter Summary ---
Author Organization [employer] ([place], [place], [place], [place]) Address [address] [place] [address] Care Team Providers Care Slide Attendant Name Role Phone [facility], Provider Not In The System Primary [...] unspecified whether nausea present Anticoagulated on Eliquis [facility] Cardiac Telemetry [address] [place] [address] Phone: tel: fax: [facility] [address] [place] [address] Phone: tel: fax: Referral ID Status Reason Start Date Expiration Date Visits Re quested Visits Authorized [id number] 1 1 Encounter Details Date Type Department Care Team (Late st Contact Info) Description 02/06/2025 7:00 PM EDT - 02/06/2025 7:39 PM EDT Surgery [facility] Endoscopy [address] [place] [address] Marisa Garcia MD [address] [place] [address] ESOPHAGOGASTRODUODENOSCOPY (EGD) Social History Tobacco Use Types Packs/Day Years [...] your living situation today? I have a [facility] place to live 02/07/[address] you li ve. Do you have problems with any of the following? None of the above 02/07/2025 Food Insecurity Answer Date Recorded Within the past 12 months, y ou worried that your food would run out before you got money to buy more. Never true 02/07/2025 Within the past 12 months, naeem he food you bought just didn't last [...] Do you speak a language other than Algerian at [facility]? No 02/07/2025 Do you want help with [...] Sign Reading Time Taken Comments Blood Pressure 145/65 02/06/2025 7:39 PM EDT Pulse 74 02/06/2025 7:35 PM EDT Temperature 36.8 C (98.2 F) 02/06/2025 5:45 PM EDT Respiratory Rate 30 02/06/2025 7:35 PM EDT Oxygen Saturation 94% 02/06/2025 7:35 PM EDT Inhaled Oxygen Concentration - - Weight 49.9 kg (110 lb) 02/06/2025 5:45 PM EDT Height 154.9 cm (5' 1 ) 02/06/2025 5:45 PM EDT Body Mass Index 20.78 02/06/2025 5:45 PM EDT documented in this encounter Discharge Summaries * Ismaeel Cesario, DO - 02/09/2025 12:35 PM EDT [facility] Discharge Summary Patient Name: Iqra Balbuena : 1955 Date of Admission: 02/06/2025 Date of Discharge: 02/09/2025 Primary Care Physician: Provider Not In The System MD Jorje Hospital Course Supervisor [place](s): GI, pulmonology Discharge Diagnosis: Nusrat-Prajapati tear Hematemesis [...] Your Medications These medications were sent to [facility] [address] [facility] [address] [address] pantoprazole 40 MG tablet sucralfate 100 mg/mL [...] System MD Jorje Relationship: PCP - [place] [address] [place] [address] Next Steps: Schedule an appointment as soon as possible for a visit in 1 week(s) Instructions: Unable to reach the office of pcp. Please call to schedule. repeat CBC Marisa Garcia MD Specialty: Gastroenterology [address] [facility] [address] [place] [address] Next Steps: Follow up in 2 month(s) Instructions: Repeat EGD office will be reaching out with appontment. Time Spent on Discharge: I spent 35 minutes in zilt-pj-ycut time with the patient and nursing staffconcerning [...] by: Zhou Nassar DO 02/09/2025, 1:11 PM Hospitalist[facility]icians documented in this encounter Discharge Instructions * Attachments The following attachments cannot be sent through Care Everywhere. * Hemoptysis [id number]-Kumk (Algerian) * Nusrat-Prajapati Syndrome (Algerian) documented in this encounter Medications at Time [...] as of this encounter Progress Notes * aHritha Colin MD - 02/09/2025 8:17 AM EDT [...] ESOPHAGOGASTRODUODENOSCOPY (EGD); Surgeon: Marisa Garcia MD; Location: [facility]; Service: Gastroenterology; Laterality: N/A; Allergies: [...] personally evaluated the patient and performed a [id number] diagnostic evaluation on this patient; I have Obtained history, performed physical examination, reviewed laboratory studies. I have independently interpreted chest images. I have actively directed the medical care, formulated diagnosis, and the plan of care. Patient requires a high complexity of decision making for assessment.Voice advanced seal delivery system technology (Major Aide) is used for dictation of this note and sound-alike words might be erroneously placed despite reviewing the note for accuracy. Errors in dictation may reflect use of voice recognition software and not all errors in advanced seal delivery system may have been detected prior to signing. [...] mL, 3 mL, nebulization, Q6H PRN, Nara Aguilar, TAPE MAKING MACHINE OPERATOR ipratropium-albuteroL (DUO-NEB) 0.5 mg-3 mg(2.5 mg base)/3 mL nebulizer solution 3 mL, 3 mL, nebulization, Q4H, Nara Aguilar, TAPE MAKING MACHINE OPERATOR, 3 mL at 02/08/25 1025 magnesium sulfate [...] Balbuena Admit Date: 02/06/2025 LOS: 2 days Location:[facility]- PCP on file: Provider Not In The [...] for discharge tomorrow. Trend H/H. SUBJECTIVE: Iqra Sree S/p EGD: EGD Impression: [...] Procedure Component Value Units Date/Time CTA chest [[id number]] Collected: 02/06/252134 Order Status: Completed Updated: 02/06/252155 [...] by Gareth Meza. CTA abdomen & pelvis [[id number]] Collected: 02/06/252134 Order Status: Completed Updated: 02/06/252155 [...] at 02/08/2025 4:21 PM EDT * Nara Aguilar APRN - 02/07/2025 3:35 PM EDT [facility] [...] 67 BPM ATRIAL RATE (MCT) 69 BPM MO Interval 152 ms QRS-INTERVAL (MSEC) 80 ms QT Interval 386 ms QTC Interval 407 ms P [place] 57 degrees R AXIS (MCT) -71 degrees T Wave [place] 40 degrees [place] Diagnosis Age and gender specific ECG analysis [...] Balbuena Admit Date: 02/06/2025 LOS: 1 days Location:[address] [place] [address] PCP on file: Provider Not In The [...] H/H -May begin Full liquids. SUBJECTIVE: Iqra Balbuena S/p EGD: EGD Impression: [...] 67 BPM ATRIAL RATE (MCT) 69 BPM MO Interval 152 ms QRS-INTERVAL (MSEC) 80 ms QT Interval 386 ms QTC Interval 407 ms P [place] 57 degrees R AXIS (MCT) -71 degrees T Wave [place] 40 degrees Jackson Diagnosis Age and gender specific ECG analysis [...] Procedure Component Value Units Date/Time CTA chest [[id number]] Collected: 02/06/252134 Order Status: Completed Updated: 02/06/252155 [...] by Gareth Meza. CTA abdomen & pelvis [[id number]] Collected: 02/06/252134 Order Status: Completed Updated: 02/06/252155 [...] Sloan PA-C - 02/06/2025 10:35 PM EDT [facility] PHYSICAL Patient Name: Iqra Balbuena : 1955 Date: 02/06/2025 PCP: Provider Not In The System MD Jorje Date of Admission: 02/06/2025 Chief Complaint: Coughing up blood Chief Complaint Patient presents with coughing up blood History of Present Illness Iqra Balbuena is a 69 y.o. female with a history of COPD, previous alcohol abuse, and hypertensionpresents to [facility] in [place], [place] for further evaluation and management of coughing up blood. Family at bedside assisted with history of present illness. Family states patient used to have history of alcohol abuse however patient has since stopped drinking approximately 1 year prior. Patient and family state that approximately 2 [facility] prior to [facility] and states patient underwent what sounds like transesophageal echocardiogram. Patient seemingly tolerated procedure well with no obvious acute complications at that time. On day of admission patient began to begin coughing up blood and family states she had blood coming out of her nose. Patient and family deny recent nausea/vomiting or other precipitous symptoms. Patient sought evaluation at [facility] emergency department where patient began coughing upand [...] file. Documented Allergies: No Known Allergies Documented FINANCE OFFICER Medications: (Not in a hospital admission) Review [...] data in the 24 hours ending 02/06/25 6927 Physical Exam Vitals reviewed. Constitutional: General: She [...] 67 BPM ATRIAL RATE (MCT) 69 BPM MO Interval 152 ms QRS-INTERVAL (MSEC) 80 ms QT Interval 386 ms QTC Interval 407 ms P [place] 57 degrees R AXIS (MCT) -71 degrees T Wave [place] 40 degrees Jackson Diagnosis Age and gender specific ECG analysis [...] Procedure Component Value Units Date/Time CTA chest [[id number]] Collected: 02/06/252134 Order Status: Completed Updated: 02/06/252155 [...] by Gareth Meza. CTA abdomen & pelvis [[id number]] Collected: 02/06/252134 Order Status: Completed Updated: 02/06/252155 [...] suspension 1 g 1 g oral Q6H [facility] Marisa Garcia MD 1 g at Current [...] with ER provider Dr. Ricardo Gordon at [facility] emergency department. -Laboratory work and pertinent imaging [...] ESOPHAGOGASTRODUODENOSCOPY (EGD); Surgeon: Marisa Garcia MD; Location: [facility]; Service: Gastroenterology; Laterality: N/A; Allergies: [...] following DNR. No vent. Disposition: 303 Tish Leiva APRN Time spent [address] chest [...] is agreeable to see us in clinic. Spring Coverer will see her in the morning. Cosigned [...] been diagnosed up to 5 years ago. [place] continue to smoke 1 pack of cigarettes [...] 67 BPM ATRIAL RATE (MCT) 69 BPM MO Interval 152 ms QRS-INTERVAL (MSEC) 80 ms QT Interval 386 ms QTC Interval 407 ms P [place] 57 degrees R AXIS (MCT) -71 degrees T Wave [place] 40 degrees Jackson Diagnosis Age and gender specific ECG analysis [...] Value Units Date/Time CTA abdomen & pelvis [[id number]] Resulted: 02/06/251910 Order Status: Sent Updated: 02/06/251918 CTA chest [[id number]] Resulted: 02/06/251910 Order Status: Sent Updated: 02/06/251917 [...] bleeding or ulcer was visible. CPT Codes: 76729- EGD with bleeding control Surgeon(s) and Role: [...] HPI. Physical Exam ED Triage Vitals [02/06/25 1745] Encounter Vitals Group BP (!) 153/72 Systolic [...] 67 BPM ATRIAL RATE (MCT) 69 BPM MO Interval 152 ms QRS-INTERVAL (MSEC) 80 ms QT Interval 386 ms QTC Interval 407 ms P [place] 57 degrees R AXIS (MCT) -71 degrees T Wave [place] 40 degrees [place] Diagnosis Age and gender specific ECG analysis [...] decompensation. Interventions were performed as documented. [MA] 1906 Patient's care was transferred to the oncoming [...] arrival: Comments: Ec 2 Lynne Stevenson RN 02/06/25 1735 documented in this encounter Plan of Treatment [...] AND HEMATOCRIT STAT 02/06/2025 8:22 PM EDT MO EGD TRANSORAL CONTROL BLEEDING ANY METHOD 02/06/2025 [...] Hemoglobin and hematocrit (02/08/2025 3:46 PM EDT) [facility] Hemoglobin 8.2(L) 11.2 - 15.7 GM/DL 02/08/2025 3:55 PM EDT [facility] Hematocrit 25.3(L) 34.1 - 44.9 % 02/08/2025 3:55 PM EDT [facility] Blood Venipuncture / Unknown 02/08/2025 3:46 PM EDT 02/08/2025 3:50 PM EDT us Nara Aguilar TAPE MAKING MACHINE OPERATOR LAB BLOOD ORDERABLES Fi nal Result [facility] [address] [place] [address], [facility] [phone] * (ABNORMAL) Manual Differential (02/08/2025 4:41 AM EDT) [facility] Total Counted 100 02/08/2025 9:00 AM EDT [facility] % Neutros (manual) 70(H) 50 - 65 % 02/08/2025 9:00 AM EDT [facility] % Bands (manual) 2 % 02/08/2025 9:00 AM EDT [facility] % Lymphs (manual) 23(L) 24 - 44 % 02/08/2025 9:00 AM EDT [facility] % Monos (manual) 1(L) 4 - 5 % 02/08/2025 9:00 AM EDT [facility] % Eos (manual) 4(H) 0 - 3 % 02/08/2025 9:00 AM EDT [facility] RBC Morphology abnormal(A) Normal 9:00 AM EDT [facility] Platelet Estimate Adequate Adequate 02/08/2025 9:00 AM EDT [facility] Hypochromia 1+ 02/08/2025 9:00 AM EDT [facility] Ovalocytes 1+ 02/08/2025 9:00 AM EDT [facility] ANC# 5.54 K/ L 02/08/2025 9:00 AM EDT [facility] Blood Venipuncture / Unknown 02/08/2025 4:41 AM EDT 02/08/2025 5:01 AM EDT us Nara Aguilar TAPE MAKING MACHINE OPERATOR LAB BLOOD ORDERABLES Fi nal Result Performing Organization Address [facility]/State/[facility] Co de Phone Number [facility] [address] [place] [address] * (ABNORMAL) Comprehensive metabolic panel (02/08/2025 4:41 AM EDT) Sodium 135(L) 136 - 145 meq/L 02/08/2025 5:59 AM EDT [facility] Potassium 3.7 3.4 - 5.1 meq/L 02/08/2025 5:59 AM EDT [facility] Chloride 98 98 - 112 meq/L 02/08/2025 5:59 AM EDT [facility] CO2 29 22 - 29 meq/L 02/08/2025 5:59 AM [facility] Calcium 9.1 8.4 - 10.2 mg/dL 02/08/2025 5:59 AM [facility] Glucose 85 82 - 115 mg/dL 02/08/2025 5:59 AM [facility] BUN 8.3(L) 9.8 - 20.1 mg/dL 02/08/2025 5:59 AM [facility] Creatinine 0.77 0.57 - 1.11 mg/dL 02/08/2025 5:59 AM [facility] BUN/Creatinine 11 8 - 20 02/08/2025 5:59 AM [facility] eGFR (mL/min/1.73m2) 84 >=60 mL/min/1. 73m2 02/08/2025 5:59 AM [facility] Albumin 2.3(L) 3.5 - 5.0 g/dL 02/08/2025 5:59 AM [facility] Alkaline Phosphatase 38(L) 40 - 150 U/L 02/08/2025 5:59 AM [facility] ALT <7 <=34 U/L 02/08/2025 5:59 AM [facility] Comment: ALT2 reagent used for testing does not contain P5P supplementation and therefore may miss ALT elevations in patients with B6 deficiency. This population may be as high as 10% in the [place], with risk factors including malabsorption, drug interactions, and alcoholic hepatitis. AST 11 11 - 34 U/L 02/08/2025 5:59 AM [facility] Comment: AST2 reagent used for testing does not contain P5P supplementation and therefore may miss AST elevations in patients with B6 deficiency. This population may be as high as 10% in the [place], with risk factors including malabsorption, drug interactions, and alcoholic hepatitis. Total Bilirubin 0.2 0.2 - 1.2 mg/dL 02/08/2025 5:59 AM [facility] Protein, Total 5.0(L) 6.4 - 8.3 g/dL 02/08/2025 5:59 AM [facility] Globulin 2.7 2.5 - 4.1 g/dL 02/08/2025 5:59 AM EDT [facility] Anion Gap 12 4 - 12 02/08/2025 5:59 AM EDT [facility] A/G Ratio 0.9 0.7 - 1.9 02/08/2025 5:59 AM EDT [facility] Osmolality Calc 267.8 mOsm/kg 5:59 AM EDT [facility] Blood Venipuncture / Unknown 02/08/2025 4:41 AM EDT 02/08/2025 5:05 AM EDT Nara Aguilar TAPE MAKING MACHINE OPERATOR LAB BLOOD ORDERABLES Fi nal Result Performing Organization Address City/[facility]/ZIP Co de Phone Number [facility] [address] [phone] * Magnesium (02/08/2025 4:41 AM EDT) Magnesium 1.6 1.6 - 2.6 mg/dL 02/08/2025 5:54 AM EDT [facility] Blood Venipuncture / Unknown 02/08/2025 4:41 AM EDT 02/08/2025 5:05 AM EDT Nara Aguilar TAPE MAKING MACHINE OPERATOR LAB BLOOD ORDERABLES Fi nal Result Performing Organization Address City/[facility]/ZIP Co de Phone Number [facility] [address] [phone] * (ABNORMAL) CBC with automated diff (02/08/2025 4:41 AM EDT) WBC 7.7 4.0 - 10.0 K/ L 02/08/2025 6:12 AM EDT [facility] RBC 2.75(L) 3.93 - 5.22 M/ L 02/08/2025 6:12 AM EDT [facility] Hemoglobin 8.1(L) 11.2 - 15.7 GM/DL 02/08/2025 6:12 AM EDT [facility] Hematocrit 25.8(L) 34.1 - 44.9 % 02/08/2025 6:12 AM EDT [facility] MCV 94 79 - 95 fL 02/08/2025 6:12 AM EDT [facility] MCH 29.5 25.6 - 32.2 pg 02/08/2025 6:12 AM EDT [facility] MCHC 31.4(L) 32.2 - 35.5 GM/DL 02/08/2025 6:12 AM EDT [facility] RDW 14.2 11.7 - 14.4 % 02/08/2025 6:12 AM EDT [facility] Platelets 315 140 - 375 K/CU MM 02/08/2025 6:12 AM EDT [facility] MPV 9.0(L) 9.4 - 12.3 fL 02/08/2025 6:12 AM EDT [facility] NRBC Absolute <0.01 0 - 0.012 K/ul 02/08/2025 6:12 AM EDT [facility] Blood Venipuncture / Unknown 02/08/2025 4:41 AM EDT 02/08/2025 5:01 AM EDT [facility] - 02/08/2025 6:12 AM EDT When [...] Flag noted Atypical Lymph flag noted us Nara Aguilar TAPE MAKING MACHINE OPERATOR LAB BLOOD ORDERABLES Fi nal Result [facility] [address] [place] [id number] [phone] * (ABNORMAL) Hemoglobin and hematocrit (02/07/2025 5:51 PM EDT) Hemoglobin 8.3(L) 11.2 - 15.7 GM/DL 02/07/2025 6:47 PM EDT [facility] Hematocrit 26.9(L) 34.1 - 44.9 % 02/07/2025 6:47 PM EDT [facility] Blood Venipuncture / Unknown 02/07/2025 5:51 PM EDT 02/07/2025 6:45 PM EDT Nara Blainealbarosaúl TAPE MAKING MACHINE OPERATOR LAB BLOOD ORDERABLES Fi nal Result [facility] [address] [phone] * (ABNORMAL) Basic Metabolic Panel (02/07/2025 5:18 AM EDT) Sodium 136 136 - 145 meq/L 02/07/2025 6:20 AM EDT [facility] Potassium 4.9 3.4 - 5.1 meq/L 02/07/2025 6:20 AM EDT [facility] CO2 29 22 - 29 meq/L 02/07/2025 6:20 AM EDT [facility] Chloride 99 98 - 112 meq/L 02/07/2025 6:20 AM EDT [facility] Glucose 85 82 - 115 mg/dL 02/07/2025 6:20 AM EDT [facility] BUN 13.0 9.8 - 20.1 mg/dL 02/07/2025 6:20 AM EDT [facility] Creatinine 0.84 0.57 - 1.11 mg/dL 02/07/2025 6:20 AM EDT [facility] BUN/Creatinine 15 8 - 20 02/07/2025 6:20 AM EDT [facility] Calcium 10.0 8.4 - 10.2 mg/dL 02/07/2025 6:20 AM EDT [facility] Anion Gap 13(H) 4 - 12 02/07/2025 6:20 AM EDT [facility] eGFR (mL/min/1.73m2) 75 >=60 mL/min/1.7 3m2 02/07/2025 6:20 AM EDT [facility] Osmolality Calc 271.3 mOsm/kg 6:20 AM EDT [facility] Blood Venipuncture / Unknown 02/07/2025 5:18 AM EDT 02/07/2025 5:59 AM EDT us Von Sloan PA-C LAB BLOOD ORDERABLES Final Res ult [facility] [address] [phone] * (ABNORMAL) CBC - Hemogram (SJ-BKR) (02/07/2025 5:18 AM EDT) WBC 11.6(H) 4.0 - 10.0 K/ L 02/07/2025 6:04 AM EDT [facility] RBC 3.14(L) 3.93 - 5.22 M/ L 02/07/2025 6:04 AM EDT [facility] Hemoglobin 9.1(L) 11.2 - 15.7 GM/DL 02/07/2025 6:04 AM EDT [facility] Hematocrit 30.4(L) 34.1 - 44.9 % 02/07/2025 6:04 AM EDT [facility] MCV 97(H) 79 - 95 fL 02/07/2025 6:04 AM EDT [facility] MCH 29.0 25.6 - 32.2 pg 02/07/2025 6:04 AM EDT [facility] MCHC 29.9(L) 32.2 - 35.5 GM/DL 02/07/2025 6:04 AM EDT [facility] RDW 14.5(H) 11.7 - 14.4 % 02/07/2025 6:04 AM EDT [facility] Platelets 340 140 - 375 K/CU MM 02/07/2025 6:04 AM EDT [facility] MPV 9.1(L) 9.4 - 12.3 fL 02/07/2025 6:04 AM EDT [facility] Blood Venipuncture / Unknown 02/07/2025 5:18 AM EDT 02/07/2025 5:58 AM EDT Von Sloan PA-C LAB BLOOD ORDERABLES Final Res ult [facility] [address] [phone] * (ABNORMAL) Hemoglobin and hematocrit (02/06/2025 8:22 PM EDT) Hemoglobin 9.0(L) 11.2 - 15.7 GM/DL 02/06/2025 8:28 PM EDT [facility] Hematocrit 29.3(L) 34.1 - 44.9 % 02/06/2025 8:28 PM EDT [facility] Blood Venipuncture / Unknown 02/06/2025 8:22 PM EDT 02/06/2025 8:25 PM EDT Bear Whitney PA-C LAB BLOOD ORDERABLES Final Resul t [facility] [address] [place] [address], [facility] [phone] * CTA abdomen & pelvis (02/06/2025 7:19 [...] Transcribed by Gareth Meza. Laura Gibson DO [facility] CT ORDERABLES Final Result * CTA chest [...] Dr. Reymundo Salamanca. Transcribed by Gareth Meza. us Laura Gibson DO [facility] CT ORDERABLES Final Result * (ABNORMAL) CBC with Auto Diff (02/06/2025 6:25 PM EDT) WBC 11.1(H) 4.0 - 10.0 K/ L 02/06/2025 7:07 PM EDT [facility] RBC 3.47(L) 3.93 - 5.22 M/ L 02/06/2025 7:07 PM EDT [facility] Hemoglobin 10.2(L) 11.2 - 15.7 GM/DL 02/06/2025 7:07 PM EDT [facility] Hematocrit 32.6(L) 34.1 - 44.9 % 02/06/2025 7:07 PM EDT [facility] MCV 94 79 - 95 fL 02/06/2025 7:07 PM EDT [facility] MCH 29.4 25.6 - 32.2 pg 02/06/2025 7:07 PM EDT [facility] MCHC 31.3(L) 32.2 - 35.5 GM/DL 02/06/2025 7:07 PM EDT [facility] RDW 14.6(H) 11.7 - 14.4 % 02/06/2025 7:07 PM EDT [facility] Platelets 414(H) 140 - 375 K/CU MM 02/06/2025 7:07 PM EDT [facility] MPV 9.3(L) 9.4 - 12.3 fL 02/06/2025 7:07 PM EDT [facility] % Neutros 68 34 - 71 % 02/06/2025 7:07 PM EDT [facility] % Lymphs 23 19 - 52 % 02/06/2025 7:07 PM EDT [facility] % Monos 7 5 - 13 % 02/06/2025 7:07 PM EDT [facility] % Eos 2 1 - 6 % 02/06/2025 7:07 PM EDT [facility] % Baso 1 0 - 1 % 02/06/2025 7:07 PM EDT [facility] NRBC Absolute <0.01 0 - 0.012 K/ul 02/06/2025 7:07 PM EDT [facility] # Neutros 7.57(H) 1.56 - 6.13 K/ L 02/06/2025 7:07 PM EDT [facility] # Lymphs 2.55 1.18 - 3.74 K/ L 02/06/2025 7:07 PM EDT [facility] # Monos 0.72 0.24 - 0.86 K/ L 02/06/2025 7:07 PM EDT [facility] # Eos 0.18 0.04 - 0.36 K/ L 02/06/2025 7:07 PM EDT [facility] # Baso 0.07 0.01 - 0.08 K/ L 02/06/2025 7:07 PM EDT [facility] Immature Granulocytes-Re lative 0.40 0.01 - 0.43 % 02/06/2025 7:07 PM EDT [facility] # IG 0.04(H) 0.00 - 0.03 K/uL 02/06/2025 7:07 PM EDT [facility] Blood Venipuncture / Unknown 02/06/2025 6:25 PM EDT 02/06/2025 7:04 PM EDT Narrative [facility] - 02/06/2025 7:07 PM EDT [...] DO LAB BLOOD ORDERABLES Final Resu lt [facility] [address] [phone] * Type and Screen (02/06/2025 6:23 PM EDT) ABO/Rh O Positive 02/06/2025 6:[address] [facility] ([place]) Antibody Screen Negative 02/06/2025 6:[address] [facility] ([place]) HISTCHK HIST CHECK PERFORMED 02/06/2025 6:05 PM EDT [facility] ([place]) Blood Venipuncture / Unknown 02/06/2025 6:23 PM EDT 02/06/2025 7:04 PM EDT [facility] TEST ORDERABLES Final Result Performing Organization Address City/[facility]/ZIP Co de Phone Number [facility] ([place]) [address] [place] [address], [facility] [phone] * (ABNORMAL) aPTT (02/06/2025 6:23 PM EDT) aPTT 32.8(H) 22.0 - 32.0 seconds 02/06/2025 7:21 PM EDT [facility] Blood Venipuncture / Unknown 02/06/2025 6:23 PM EDT 02/06/2025 7:04 PM EDT [facility] BLOOD ORDERABLES Final Resu lt Performing Organization Address [facility] Co de Phone Number [facility] [address] [place] [address] * Prothrombin time/INR (02/06/2025 6:23 PM EDT) Protime 10.4 9.0 - 12.0 seconds 02/06/2025 7:21 PM EDT [facility] INR 0.93 0.80 - 1.10 02/06/2025 7:21 PM EDT [facility] Comment: Recommended therapeutic ranges using International Normalized Ratio (INR) are: INR RANGE 2.0 - 3.0 Routine oral anticoagulant therapy 2.5 - 3.5 Oral anticoagulant therapy for patients with thromboembolic events on standard doses of Coumadin and those with mechanical heart valves. Blood Venipuncture / Unknown 02/06/2025 6:23 PM EDT 02/06/2025 7:04 PM EDT [facility] BLOOD ORDERABLES Final Resu lt Performing Organization Address [facility]/ZIP Co de Phone Number [facility] [address] [phone] * High Sensitivity Troponin I (02/06/2025 6:23 PM EDT) [facility] Troponin I High Sensitivity (pg/mL) 12.2 <=14 pg/mL 02/06/2025 7:29 PM EDT [facility] Blood Venipuncture / Unknown 02/06/2025 6:23 PM EDT 02/06/2025 7:04 PM EDT Narrative [facility] - 02/06/2025 7:29 PM EDT Applicable to [facility] only. Effective October 06 the lab will begin using a new chemistry analyzer. HsTroponin methodology, reference ranges and critical values have changed. [facility] BLOOD ORDERABLES Final Resu lt [facility] [address] [phone] * Magnesium (02/06/2025 6:23 PM EDT) [facility] Magnesium 1.9 1.6 - 2.6 mg/dL 02/06/2025 7:26 PM EDT [facility] Blood Venipuncture / Unknown 02/06/2025 6:23 PM EDT 02/06/2025 7:04 PM EDT [facility] LAB BLOOD ORDERABLES Final Resu lt [facility] [address] [phone] * (ABNORMAL) Comprehensive metabolic panel (02/06/2025 6:23 PM EDT) [facility] Sodium 137 136 - 145 meq/L 02/06/2025 7:26 PM EDT [facility] Potassium 5.1 3.4 - 5.1 meq/L 02/06/2025 7:26 PM EDT [facility] Chloride 93(L) 98 - 112 meq/L 02/06/2025 7:26 PM EDT [facility] CO2 36(H) 22 - 29 meq/L 02/06/2025 7:26 PM [facility] Calcium 11.6(H) 8.4 - 10.2 mg/dL 02/06/2025 7:26 PM [facility] Glucose 104 82 - 115 mg/dL 02/06/2025 7:26 PM [facility] BUN 13.4 9.8 - 20.1 mg/dL 02/06/2025 7:26 PM [facility] Creatinine 1.00 0.57 - 1.11 mg/dL 02/06/2025 7:26 PM [facility] BUN/Creatinine 13 8 - 20 02/06/2025 7:26 PM [facility] eGFR (mL/min/1.73m2) 61 >=60 mL/min/1. 73m2 02/06/2025 7:26 PM [facility] Albumin 2.9(L) 3.5 - 5.0 g/dL 02/06/2025 7:26 PM [facility] Alkaline Phosphatase 53 40 - 150 U/L 02/06/2025 7:26 PM [facility] ALT 8 <=34 U/L 02/06/2025 7:26 PM [facility] Comment: ALT2 reagent used for testing does not contain P5P supplementation and therefore may miss ALT elevations in patients with B6 deficiency. This population may be as high as 10% in the [place], with risk factors including malabsorption, drug interactions, and alcoholic hepatitis. AST 14 11 - 34 U/L 02/06/2025 7:26 PM [facility] Comment: AST2 reagent used for testing does not contain P5P supplementation and therefore may miss AST elevations in patients with B6 deficiency. This population may be as high as 10% in the [place], with risk factors including malabsorption, drug interactions, and alcoholic hepatitis. Total Bilirubin 0.2 0.2 - 1.2 mg/dL 02/06/2025 7:26 PM [facility] Protein, Total 6.5 6.4 - 8.3 g/dL 02/06/2025 7:26 PM [facility] Globulin 3.6 2.5 - 4.1 g/dL 02/06/2025 7:26 PM EDT [facility] Anion Gap 13(H) 4 - 12 02/06/2025 7:26 PM EDT [facility] A/G Ratio 0.8 0.7 - 1.9 02/06/2025 7:26 PM EDT [facility] Osmolality Calc 274.4 mOsm/kg 7:26 PM EDT [facility] Blood Venipuncture / Unknown 02/06/2025 6:23 PM EDT 02/06/2025 7:04 PM EDT us Laura Gibson DO LAB BLOOD ORDERABLES Final Resu lt Performing Organization Address City/[facility]/ZIP Co de Phone Number [facility] [address] [phone] * ECG 12 lead (02/06/2025 5:41 PM EDT) VENTRICULAR RATE EKG/MIN 67 BPM GE MUSE ATRIAL RATE (MCT) 69 BPM GE MUSE MO Interval 152 ms GE MUSE QRS-INTERVAL (MSEC) 80 ms GE MUSE QT Interval 386 ms GE MUSE QTC Interval 407 ms GE MUSE P [place] 57 degrees GE MUSE R AXIS (MCT) -71 degrees GE MUSE T Wave [place] 40 degrees GE MUSE [place] Diagnosis Age and gender specific ECG analysis Normal sinus rhythm Left axis deviation Abnormal ECG When compared with ECG of 06-OCT-2024 19:45, Significant changes have occurred Confirmed by Edvin ESPINOZA, Margret (2019) on 02/08/2025 5:26:45 PM GE MUSE 02/06/2025 5:41 PM EDT 02/08/2025 5:26 PM EDT us Laura Gibson DO ECG ORDERABLES Final Result Performing Organization Address [facility]/ZIP Co de Phone Number [place] * EKG-SCANNED (02/06/2025) Narrative 02/06/2025 Ordered by an unspecified provider. us Default Scanning Provider SCAN ORDERS Final Result documented in this encounter Visit Diagnoses Diagnosis Nusrat-Prajapati tear- Primary Gastroesophageal laceration-hemorrhage syndrome Hematemesis with nausea Hematemesis Hematemesis, unspecified whether nausea present Anticoagulated on Eliquis Malignant neoplasm of lung, unspecified laterality, unspecified part of lung (HCC) Tobacco abuse Tobacco use disorder Hematemesis documented in this encounter Admitting Diagnoses Diagnosis [...] Given 02/08/2025 10:27 AM EDT 5 mg ipratropium-albuteroL (DUO-NEB) 0.5 mg-3 mg(2.5 mg base)/3 [...] the next morning. ondansetron (ZOFRAN) injection 4 mg 4 mg [...] Given 02/08/2025 9:00 AM EDT 40 mg potassium chloride IVPB 10 mEq in [...] hour after replacement and the next morning. sucralfate (CARAFATE) 100 mg/mL suspension 1 g [...] the respiratory therapy Modality? Small volume Nebulization 194 (Given - Provider: Pete Mcnulty) 0743 (Given - Provider: Dale Villalobos) cefTRIAXone (ROCEPHIN) [...] (IVPB Stopped - Provider: Óscar Horowitz RN) 09 (IVPB Started - Provider: Óscar Horowitz RN)0930 (Due: IVPB Stopped - Provider: Óscar Horowitz RN) ipratropium-albuteroL (DUO-NEB) 0.5 mg-3 mg(2.5 mg base)/3 mL nebulizer solution 3 mL 3 mL Every 4 hours (RT), nebulization, First dose on 02/07/25 at 2000, RESPIRATORY THERAPY TREATMENT Protect from Light, What is the respiratory therapy Modality? Small volume Nebulization 1821 (Given - Provider: Sharona Maradiaga, CLOTH MERCERIZER OPERATOR) 0043 (Given - Provider: Jordyn Garcia, SOCIAL WORK COORDINATOR)0412 (Not Given - Provider: Jordyn Garcia SOCIAL WORK COORDINATOR - Reason: Patient/family refused)0740 (Given - Provider: Josee Lala, SOCIAL WORK COORDINATOR)1025 (Given - Provider: Laura Falcon, CLOTH MERCERIZER OPERATOR)1530 (Given - Provider: Laura Falcon, CLOTH MERCERIZER OPERATOR)1940 (Given - Provider: Pete Mcnulty)2309 (Given [...] Óscar Horowitz RN)2039 (Given - Provider: Mahogany Cortez, RN) 09 (Given - Provider: Óscar Horowitz, FIGUEROA)2109 (Given - Provider: Mahogany Cortez, FIGUEROA) 09 (Given - Provider: Óscar Horowitz RN) sucralfate (CARAFATE) 100 mg/mL suspension 1 g 1 g Every 6 hours scheduled, oral, First dose on 02/06/25 at 2024 0042 (Given - Provider: Chris Marx RN)0623 (Given - Provider: Chris Francisco J, RN)1200 (Not Given - Provider: Óscar Horowitz [...] minutes. documented in this encounter Care Teams Slide Attendant Relationship Specialty Start Date End Date Jorje, Provider Not In The System, [place] [address] PCP - General 02/06/25 documented as of this encounter
--- OUTSIDE RECORDS SUMMARY | 2025-03-18 12:32 | XMS_ITS | Clinical Summary ---
Author Organization Healthcare Address [address] [place] [address] Care Team Providers Care Oil Treater Name Role Phone Rajat Navarro MD Primary Care Provider [phone] Social History Tobacco Use Types Packs/Day Years [...] 2005 [facility]-Zoster Vaccines (1 of 2) 2005 [id number]-56 Vaccine ( - 2024- season) 2025 05/24/2021, 04/26/2021 [facility]-Influenza Vaccine (#1) 2025 05/10/2010 [...] this topic Insurance [employer] MEDICARE Care Teams Oil Treater Relationship Specialty Start Date End Date Rajat Navarro MD [address] [place] [address] [address] [place] [id number] PCP - General 07/15/20
--- OUTSIDE RECORDS SUMMARY | 2025-03-18 12:32 | XMS_ITS | Encounter Summary ---
Author Organization [employer] ([place], [place], [place], [place]) Address [address] [place] [address] Care Team Providers Care Healthcare Sales Representative Name Role Phone [facility], Provider Not In The System Primary [...] Do you speak a language other than [place] at [facility]? No 02/07/2025 Do you want help with [...] on filedocumented in this encounter Care Teams Healthcare Sales Representative Relationship Specialty Start Date End Date [facility], Provider Not In The System, [place] [address] PCP - General 02/06/25 documented as of this encounter
--- OUTSIDE RECORDS SUMMARY | 2025-03-18 12:34 | XMS_ITS | Clinical Summary ---
Author Organization [facility] Address [address] [place] [address] Phone Care Team Providers Care Employee Relation Manager Name Role Phone Unavailable Unavailable Conditions or Problems No information available. Medications No information available. Medications Administered No information available. Allergies, Adverse Reactions, Alerts No information available. Results No information available. Plan of Care No information available. Procedures No information available. Vital Signs No information available. Immunizations No information available. Advance Directives No information available.
--- OUTSIDE RECORDS SUMMARY | 2025-03-18 12:35 | XMS_ITS | Clinical Summary ---
Author Organization [employer] ([place], [place], [place], [place]) Address [address] [place] [address] Care Team Providers Care Inspector Rough Castings Name Role Phone [facility], Provider Not In The System [...] [facility] Endoscopy [address] [place] [phone] Marisa Garcia MD ESOPHAGOGASTRODUODENOSCOPY (EGD) 02/06/2025 5:35 PM EDT - 02/09/2025 12:35 PM EDT Hospital Encounter [facility] Cardiac Telemetry [address] [place] [id number] Laura Gibson DO Turley, David, MD Hughes, [...] Do you speak a language other than Faroese at [facility]? No 02/07/2025 Do you want help [...] - Risk 60-74 years 1-dose series) 2015 Falls Risk Screening 07/15/2024 Medicare Initial AWV [id number] 08/15/2024 COVID-19 VACCINE (3 - 2024- season) 03/15/202504/2021, 04/26/2021 Influenza Vaccine (#1) 2025 05/30/2023 Medical Devices Implanted Type Area Outside Sales Executive Device Identifier Shelf Expiration Date Model / Serial / Lot Duraclip Sm 16mm [id number] - [id number] Implanted:Qty: 3 on 02/06/2025 by Marisa Garcia MD at [place] N/A: Esophagus CONMED 04/28/2027 [id number] / / [id number] Procedures Procedure Name Priority Date/Time Associated Diagnosis [...] of3 resultswithin the time period is included. [facility] Hemoglobin 8.2(L) 11.2 - 15.7 GM/DL 02/08/2025 3:55 PM EDT [facility] Hematocrit 25.3(L) 34.1 - 44.9 % 02/08/2025 3:55 PM EDT [facility] Blood Venipuncture / Unknown 02/08/2025 3:46 PM EDT 02/08/2025 3:50 PM EDT Nara Aguilar APRN LAB BLOOD ORDERABLES Fi nal Result [facility] [address] [phone] * (ABNORMAL) CBC with automated diff (02/08/2025 4:41 AM EDT) Only the most recent of2 resultswithin the time period is included. Pathologist [facility] WBC 7.7 4.0 - 10.0 K/ L 02/08/2025 6:12 AM EDT [facility] RBC 2.75(L) 3.93 - 5.22 M/ L 02/08/2025 6:12 AM EDT [facility] Hemoglobin 8.1(L) 11.2 - 15.7 GM/DL 02/08/2025 6:12 AM EDT [facility] Hematocrit 25.8(L) 34.1 - 44.9 % 02/08/2025 6:12 AM EDT [facility] MCV 94 79 - 95 fL 02/08/2025 6:12 AM EDT [facility] MCH 29.5 25.6 - 32.2 pg 02/08/2025 6:12 AM EDT [facility] MCHC 31.4(L) 32.2 - 35.5 GM/DL 02/08/2025 6:12 AM EDT [facility] RDW 14.2 11.7 - 14.4 % 02/08/2025 6:12 AM EDT [facility] Platelets 315 140 - 375 K/CU MM 02/08/2025 6:12 AM EDT [facility] MPV 9.0(L) 9.4 - 12.3 fL 02/08/2025 6:12 AM EDT [facility] NRBC Absolute <0.01 0 - 0.012 K/ul 02/08/2025 6:12 AM EDT [facility] Blood Venipuncture / Unknown 02/08/2025 4:41 AM EDT 02/08/2025 5:01 AM EDT [facility] - 02/08/2025 6:12 AM EDT [...] APRN LAB BLOOD ORDERABLES Fi nal Result [facility] [address] [phone] * (ABNORMAL) Manual Differential (02/08/2025 4:41 AM EDT) Pathologist [facility] Total Counted 100 02/08/2025 9:00 AM EDT [facility] % Neutros (manual) 70(H) 50 - 65 % 02/08/2025 9:00 AM EDT [facility] % Bands (manual) 2 % 02/08/2025 9:00 AM EDT [facility] % Lymphs (manual) 23(L) 24 - 44 % 02/08/2025 9:00 AM EDT [facility] % Monos (manual) 1(L) 4 - 5 % 02/08/2025 9:00 AM EDT [facility] % Eos (manual) 4(H) 0 - 3 % 02/08/2025 9:00 AM EDT [facility] RBC Morphology abnormal(A) Normal 9:00 AM EDT [facility] Platelet Estimate Adequate Adequate 02/08/2025 9:00 AM EDT [facility] Hypochromia 1+ 02/08/2025 9:00 AM EDT [facility] Ovalocytes 1+ 02/08/2025 9:00 AM EDT [facility] ANC# 5.54 K/ L 02/08/2025 9:00 AM EDT [facility] Blood Venipuncture / Unknown 02/08/2025 4:41 AM EDT 02/08/2025 5:01 AM EDT Nara Aguilar SHELL MOLDING ROLLER BLAST OPERATOR LAB BLOOD ORDERABLES Fi nal Result [facility] [address] [phone] * Magnesium (02/08/2025 4:41 AM EDT) Only the most recent of2 resultswithin the time period is included. Magnesium 1.6 1.6 - 2.6 mg/dL 02/08/2025 5:54 AM EDT [facility] Blood Venipuncture / Unknown 02/08/2025 4:41 AM EDT 02/08/2025 5:05 AM EDT us Nara Aguilar SHELL MOLDING ROLLER BLAST OPERATOR LAB BLOOD ORDERABLES Fi nal Result [facility] 1 [place] [id number], [place] [phone] * (ABNORMAL) Comprehensive metabolic panel (02/08/2025 4:41 AM EDT) Only the most recent of2 resultswithin the time period is included. Sodium 135(L) 136 - 145 meq/L 02/08/2025 5:59 AM EDT [facility] Potassium 3.7 3.4 - 5.1 meq/L 02/08/2025 5:59 AM EDT [facility] Chloride 98 98 - 112 meq/L 02/08/2025 5:59 AM EDT [facility] CO2 29 22 - 29 meq/L 02/08/2025 5:59 AM EDT [facility] Calcium 9.1 8.4 - 10.2 mg/dL 02/08/2025 5:59 AM EDT [facility] Glucose 85 82 - 115 mg/dL 02/08/2025 5:59 AM EDT [facility] BUN 8.3(L) 9.8 - 20.1 mg/dL 02/08/2025 5:59 AM EDT [facility] Creatinine 0.77 0.57 - 1.11 mg/dL 02/08/2025 5:59 AM EDT [facility] BUN/Creatinine 11 8 - 20 02/08/2025 5:59 AM EDT [facility] eGFR (mL/min/1.73m2) 84 >=60 mL/min/1. 73m2 02/08/2025 5:59 AM EDT [facility] Albumin 2.3(L) 3.5 - 5.0 g/dL 02/08/2025 5:59 AM EDT [facility] Alkaline Phosphatase 38(L) 40 - 150 U/L 02/08/2025 5:59 AM EDT [facility] ALT <7 <=34 U/L 02/08/2025 5:59 AM EDT [facility] Comment: ALT2 reagent used for testing does not contain P5P supplementation and therefore may miss ALT elevations in patients with B6 deficiency. This population may be as high as 10% in the [place], with risk factors including malabsorption, drug interactions, and alcoholic hepatitis. AST 11 11 - 34 U/L 02/08/2025 5:59 AM EDT [facility] Comment: AST2 reagent used for testing does not contain P5P supplementation and therefore may miss AST elevations in patients with B6 deficiency. This population may be as high as 10% in the [place], with risk factors including malabsorption, drug interactions, and alcoholic hepatitis. Total Bilirubin 0.2 0.2 - 1.2 mg/dL 02/08/2025 5:59 AM EDT [facility] Protein, Total 5.0(L) 6.4 - 8.3 g/dL 02/08/2025 5:59 AM EDT [facility] Globulin 2.7 2.5 - 4.1 g/dL 02/08/2025 5:59 AM EDT [facility] Anion Gap 12 4 - 12 02/08/2025 5:59 AM EDT [facility] A/G Ratio 0.9 0.7 - 1.9 02/08/2025 5:59 AM EDT [facility] Osmolality Calc 267.8 mOsm/kg 5:59 AM EDT [facility] Blood Venipuncture / Unknown 02/08/2025 4:41 AM EDT 02/08/2025 5:05 AM EDT Nara Aguilar SHELL MOLDING ROLLER BLAST OPERATOR LAB BLOOD ORDERABLES Fi nal Result [facility] [address] [phone] * (ABNORMAL) CBC - Hemogram (SJ-BKR) (02/07/2025 5:18 AM EDT) WBC 11.6(H) 4.0 - 10.0 K/ L 02/07/2025 6:04 AM EDT [facility] RBC 3.14(L) 3.93 - 5.22 M/ L 02/07/2025 6:04 AM EDT [facility] Hemoglobin 9.1(L) 11.2 - 15.7 GM/DL 02/07/2025 6:04 AM EDT [facility] Hematocrit 30.4(L) 34.1 - 44.9 % 02/07/2025 6:04 AM EDT [facility] MCV 97(H) 79 - 95 fL 02/07/2025 6:04 AM EDT [facility] MCH 29.0 25.6 - 32.2 pg 02/07/2025 6:04 AM EDT [facility] MCHC 29.9(L) 32.2 - 35.5 GM/DL 02/07/2025 6:04 AM EDT [facility] RDW 14.5(H) 11.7 - 14.4 % 02/07/2025 6:04 AM EDT [facility] Platelets 340 140 - 375 K/CU MM 02/07/2025 6:04 AM EDT [facility] MPV 9.1(L) 9.4 - 12.3 fL 02/07/2025 6:04 AM EDT [facility] Blood Venipuncture / Unknown 02/07/2025 5:18 AM EDT 02/07/2025 5:58 AM EDT us Von Sloan PA-C LAB BLOOD ORDERABLES Final Res ult Performing Organization Address City/State/[facility] Co de Phone Number [facility] [address] [place] [address] * (ABNORMAL) Basic Metabolic Panel (02/07/2025 5:18 AM EDT) Sodium 136 136 - 145 meq/L 02/07/2025 6:20 AM EDT [facility] Potassium 4.9 3.4 - 5.1 meq/L 02/07/2025 6:20 AM EDT [facility] CO2 29 22 - 29 meq/L 02/07/2025 6:20 AM EDT [facility] Chloride 99 98 - 112 meq/L 02/07/2025 6:20 AM EDT [facility] Glucose 85 82 - 115 mg/dL 02/07/2025 6:20 AM EDT [facility] BUN 13.0 9.8 - 20.1 mg/dL 02/07/2025 6:20 AM EDT [facility] Creatinine 0.84 0.57 - 1.11 mg/dL 02/07/2025 6:20 AM EDT [facility] BUN/Creatinine 15 8 - 20 02/07/2025 6:20 AM EDT [facility] Calcium 10.0 8.4 - 10.2 mg/dL 02/07/2025 6:20 AM EDT [facility] Anion Gap 13(H) 4 - 12 02/07/2025 6:20 AM EDT [facility] eGFR (mL/min/1.73m2) 75 >=60 mL/min/1.7 3m2 02/07/2025 6:20 AM EDT [facility] Osmolality Calc 271.3 mOsm/kg 6:20 AM EDT [facility] Blood Venipuncture / Unknown 02/07/2025 5:18 AM EDT 02/07/2025 5:59 AM EDT us Von Sloan PA-C LAB BLOOD ORDERABLES Final Res ult [facility] [address] [phone] * CTA abdomen & pelvis (02/06/2025 7:19 [...] by Gareth Meza. us Laura Gibson DO [facility] [place] ORDERABLES Final Result * CTA chest [...] O Positive 02/06/2025 6:05 PM EDT [facility] ([place]) Antibody Screen Negative 02/06/2025 6:05 PM EDT [facility] ([place]) HISTCHK HIST CHECK PERFORMED 02/06/2025 6:05 PM EDT [facility] ([place]) Blood Venipuncture / Unknown 02/06/2025 6:23 PM EDT 02/06/2025 7:04 PM EDT Laura Gibson DO [facility] TEST ORDERABLES Final Result [facility] ([place]) 1 [place] [address], [place] [phone] * High Sensitivity Troponin I (02/06/2025 6:23 PM EDT) [facility] Troponin I High Sensitivity (pg/mL) 12.2 <=14 pg/mL 02/06/2025 7:29 PM EDT [facility] Blood Venipuncture / Unknown 02/06/2025 6:23 PM EDT 02/06/2025 7:04 PM EDT Narrative [facility] - 02/06/2025 7:29 PM EDT Applicable to [facility] Lab only. Effective October 06 the lab will begin using a new chemistry analyzer. HsTroponin methodology, reference ranges and critical values have changed. Laura Gibson DO LAB BLOOD ORDERABLES Final Resu lt [facility] [address] [place] [address], [place] [phone] * (ABNORMAL) aPTT (02/06/2025 6:23 PM EDT) Pathologist [facility] aPTT 32.8(H) 22.0 - 32.0 seconds 02/06/2025 7:21 PM EDT [facility] Blood Venipuncture / Unknown 02/06/2025 6:23 PM EDT 02/06/2025 7:04 PM EDT Lauraevangelina Gibson LAB BLOOD ORDERABLES Final Resu lt [facility] 1 [place] [address], [place] [phone] * Prothrombin time/INR (02/06/2025 6:23 PM EDT) Protime 10.4 9.0 - 12.0 seconds 02/06/2025 7:21 PM EDT [facility] INR 0.93 0.80 - 1.10 02/06/2025 7:21 PM EDT [facility] Comment: Recommended therapeutic ranges using International Normalized Ratio (INR) are: INR RANGE 2.0 - 3.0 Routine oral anticoagulant therapy 2.5 - 3.5 Oral anticoagulant therapy for patients with thromboembolic events on standard doses of Coumadin and those with mechanical heart valves. Blood Venipuncture / Unknown 02/06/2025 6:23 PM EDT 02/06/2025 7:04 PM EDT Lauraevangelina Gibson LAB BLOOD ORDERABLES Final Resu lt [facility] 1 [place] [address], [place] [phone] * ECG 12 lead (02/06/2025 5:41 PM EDT) VENTRICULAR RATE EKG/MIN 67 BPM GE MUSE ATRIAL RATE (MCT) 69 BPM GE MUSE CO Interval 152 ms GE MUSE QRS-INTERVAL (MSEC) 80 ms GE MUSE QT Interval 386 ms GE MUSE QTC Interval 407 ms GE MUSE P [place] 57 degrees GE MUSE R AXIS (MCT) -71 degrees GE MUSE T Wave [place] 40 degrees GE MUSE [place] Diagnosis Age and gender specific ECG analysis [...] Advance Directives For more information, please contact: [phone] * DNR - Limited Additional Intervention (Latest Code Status on File) Date Activated Date Inactivated Comments 02/06/2025 9:46 PM 02/09/2025 1:53 PM * Full Code Date Activated Date Inactivated Comments 10/06/2024 8:39 PM 10/09/2024 6:04 PM Care Teams Inspector Rough Castings Relationship Specialty Start Date End Date Jorje, Provider Not In The System, [place] [address] PCP - General 02/06/25
--- OUTSIDE RECORDS SUMMARY | 2025-03-18 12:35 | XMS_ITS | Referral Summary ---
Author Organization [employer] ([place], [place], [place], [place]) Address [address] [place] [address] Care Team Providers Care Staffing Mgr Name Role Phone [facility], Provider Not In The System MD Primary Care Provider Unavailable Encounters Date Type Department Care Team Description 02/06/2025 5:35 PM EDT - 02/09/2025 12:35 PM EDT Hospital Encounter [facility] Cardiac Telemetry 1 [place] [address] Laura Gibson DO Turley, David, [...] EDT - 02/06/2025 7:39 PM EDT Surgery [facility] Endoscopy 1 [place] [address] Marisa Garcia MD ESOPHAGOGASTRODUODENOSCOPY (EGD) [...] you speak a language other than [place] at [facility]? No 02/07/2025 Do you want help with [...] on file Medical Devices Implanted Type Area Cartridge Loading Operator Device Identifier Shelf Expiration Date Model / Serial / Lot Duraclip Sm 16mm [id number] - [id number] Implanted:Qty: 3 on 02/06/2025 by Marisa Garcia MD at [facility] N/A: Esophagus CONMED 04/28/2027 [id number] / / [id number] Procedures Procedure Name Priority Date/Time Associated Diagnosis [...] AND HEMATOCRIT STAT 02/06/2025 8:22 PM EDT [facility] TRANSORAL CONTROL BLEEDING ANY METHOD 02/06/2025 [...] 02/08/2025 3:50 PM EDT us Nara Aguilar AUTOMATIC PRESSER LAB BLOOD ORDERABLES Fi nal Result [facility] [address] [phone] * (ABNORMAL) CBC with automated diff (02/08/2025 [...] Atypical Lymph flag noted us Nara Aguilar AUTOMATIC PRESSER LAB BLOOD ORDERABLES Fi nal Result [facility] [address] [phone] * (ABNORMAL) Manual Differential (02/08/2025 4:41 AM [...] EDT 02/08/2025 5:01 AM EDT Nara Aguilar AUTOMATIC PRESSER LAB BLOOD ORDERABLES Fi nal Result Performing Organization Address City/[facility] Co de Phone Number [facility] [address] [phone] * Magnesium (02/08/2025 4:41 AM EDT) Only the most recent of2 resultswithin the time period is included. Magnesium 1.6 1.6 - 2.6 mg/dL 02/08/2025 5:54 AM EDT [facility] Blood Venipuncture / Unknown 02/08/2025 4:41 AM EDT 02/08/2025 5:05 AM EDT Nara Goinsmeaghanadelina AUTOMATIC PRESSER LAB BLOOD ORDERABLES Fi nal Result Performing Organization Address City/[facility] Co de Phone Number [facility] [address] [phone] * (ABNORMAL) Comprehensive metabolic panel (02/08/2025 4:41 [...] 82 - 115 mg/dL 02/08/2025 5:59 AM [facility] BUN 8.3(L) 9.8 - 20.1 mg/dL 02/08/2025 5:59 AM [facility] Creatinine 0.77 0.57 - 1.11 mg/dL 02/08/2025 5:59 AM [facility] BUN/Creatinine 11 8 - 20 02/08/2025 5:59 AM [facility] eGFR (mL/min/1.73m2) 84 >=60 mL/min/1. 73m2 02/08/2025 5:59 AM [facility] Albumin 2.3(L) 3.5 - 5.0 g/dL 02/08/2025 5:59 AM [facility] Alkaline Phosphatase 38(L) 40 - 150 U/L 02/08/2025 5:59 AM [facility] ALT <7 <=34 U/L 02/08/2025 5:59 AM [facility] Comment: ALT2 reagent used for testing does not contain P5P supplementation and therefore may miss ALT elevations in patients with B6 deficiency. This population may be as high as 10% in the [place], with risk factors including malabsorption, drug interactions, and alcoholic hepatitis. AST 11 11 - 34 U/L 02/08/2025 5:59 AM [facility] Comment: AST2 reagent used for testing does not contain P5P supplementation and therefore may miss AST elevations in patients with B6 deficiency. This population may be as high as 10% in the [place], with risk factors including malabsorption, drug interactions, and alcoholic hepatitis. Total Bilirubin 0.2 0.2 - 1.2 mg/dL 02/08/2025 5:59 AM [facility] Protein, Total 5.0(L) 6.4 - 8.3 g/dL 02/08/2025 5:59 AM [facility] Globulin 2.7 2.5 - 4.1 g/dL 02/08/2025 5:59 AM [facility] Anion Gap 12 4 - 12 02/08/2025 5:59 AM [facility] A/G Ratio 0.9 0.7 - 1.9 02/08/2025 5:59 AM EDT [facility] Osmolality Calc 267.8 mOsm/kg 5:59 AM EDT [facility] Blood Venipuncture / Unknown 02/08/2025 4:41 AM EDT 02/08/2025 5:05 AM EDT us Nara Aguilar AUTOMATIC PRESSER LAB BLOOD ORDERABLES Fi nal Result [facility] [address] [phone] * (ABNORMAL) CBC - Hemogram (SJ-BKR) (02/07/2025 [...] [facility] [address] [phone] * (ABNORMAL) Basic Metabolic Panel (02/07/2025 5:18 [...] [facility] 1 [place] [address], [facility] [phone] * CTA abdomen & pelvis (02/06/2025 7:19 [...] [place]. Transcribed by Gareth Meza. Laura Arthur [facility] CT ORDERABLES Final Result * CTA [...] the origin of both renal arteries. The ETRRY appears patent. The abdominal aorta is normal [...] Transcribed by Gareth Meza. Laura Gibson DO [facility] CT ORDERABLES Final Result * Type and Screen (02/06/2025 6:23 PM EDT) ABO/Rh O Positive 02/06/2025 6:05 PM EDT [facility] [place] Antibody Screen Negative 02/06/2025 6:05 PM EDT [facility] [place] HISTCHK HIST CHECK PERFORMED 02/06/2025 6:05 PM EDT [facility] [place] Blood Venipuncture / Unknown 02/06/2025 6:23 PM EDT 02/06/2025 7:04 PM EDT Laura Gibson DO [facility] TEST ORDERABLES Final Result [facility] ([place] [address] [place] [address], [facility] [phone] * High Sensitivity Troponin I (02/06/2025 6:23 PM EDT) Troponin I High Sensitivity (pg/mL) 12.2 <=14 pg/mL 02/06/2025 7:29 PM EDT [facility] Blood Venipuncture / Unknown 02/06/2025 6:23 PM EDT 02/06/2025 7:04 PM EDT Narrative [facility] - 02/06/2025 7:29 PM EDT Applicable to [facility] Lab only. Effective October 06 the lab will begin using a new chemistry analyzer. HsTroponin methodology, reference ranges and critical values have changed. [facility] LAB BLOOD ORDERABLES Final Resu lt Performing Organization Address City/[facility]/ZIP Co de Phone Number [facility] [address] [phone] * (ABNORMAL) aPTT (02/06/2025 6:23 PM EDT) aPTT 32.8(H) 22.0 - 32.0 seconds 02/06/2025 7:21 PM EDT [facility] Blood Venipuncture / Unknown 02/06/2025 6:23 PM EDT 02/06/2025 7:04 PM EDT [facility] BLOOD ORDERABLES Final Resu lt [facility] [address] [phone] * Prothrombin time/INR (02/06/2025 6:23 PM EDT) [...] ORDERABLES Final Resu lt Performing Organization Address City/[facility]/ZIP Co de Phone Number [facility] 1 [place] [address], [facility] [phone] * ECG 12 lead (02/06/2025 5:41 PM EDT) VENTRICULAR RATE EKG/MIN 67 BPM GE MUSE ATRIAL RATE (MCT) 69 BPM GE MUSE UT Interval 152 ms GE MUSE QRS-INTERVAL (MSEC) 80 ms GE MUSE QT Interval 386 ms GE MUSE QTC Interval 407 ms GE MUSE P [place] 57 degrees GE MUSE R AXIS (MCT) -71 degrees GE MUSE T Wave [place] 40 degrees GE MUSE [place] Diagnosis Age and gender specific ECG analysis Normal sinus rhythm Left axis deviation Abnormal ECG When compared with ECG of 06-OCT-2024 19:45, Significant changes have occurred Confirmed by Edvin ESPINOZA, [facility] [place] on 02/08/2025 5:26:45 PM GE MUSE 02/06/2025 5:41 PM EDT 02/08/2025 5:26 PM EDT Laura Gibson DO ECG ORDERABLES Final Result Performing Organization Address [facility] Co de Phone Number GE MUSE * EKG-SCANNED (02/06/2025) Narrative 02/06/2025 Ordered by an unspecified provider. Default Scanning Provider SCAN ORDERS Final Result from Last 3 Months Insurance [employer] MCR ADV Advance Directives For more information, please contact: [phone] * DNR - Limited Additional Intervention (Latest Code Status on File) Date Activated Date Inactivated Comments 02/06/2025 9:46 PM 02/09/2025 1:53 PM * Full Code Date Activated Date Inactivated Comments 10/06/2024 8:39 PM 10/09/2024 6:04 PM Care Teams Staffing Mgr Relationship Specialty Start Date End Date [facility], Provider Not In The System, [place] [address] PCP - General 02/06/25
[2025-03-18 12:43] LABS: ABG HCO3 32.4 mmhg (22.0-26.0); ABG PH 7.35 mmol/L (7.35-7.45); ABG PO2 66.2 mmhg (80-100); ABG TCO2 34.2 mmhg (23-27)
[2025-03-18 12:50] LABS: ABG PCO2 59.5 mmhg (35.0-45.0)
--- NOTE | 2025-03-23 10:23 | PC.NURSE ---
PATIENT WAS ON 2LPM NASAL CANNULA AT THE TIME OF BLOOD GAS DRAW.
== END 2025-03-18 23:59 | disposition home or self-care (01) ==
LOC: LAB 12:28 → RT 12:33
PROVIDERS: PCP Nurse Practitioner; Visit Provider Student in an Organized Health Care Education/Training Program
DX: J44.1 Chronic obstructive pulmonary disease with (acute) exacerbation (principal); J96.92 Respiratory failure, unspecified with hypercapnia
CPT/HCPCS: 36600; 82803

== ENCOUNTER 2025-03-20 15:57 | Observation (INO) | payer MEDICARE, SELFPAY ==
--- OUTSIDE RECORDS SUMMARY | 2025-02-06 17:35 | XMS_ITS | Encounter Summary ---
Author Organization [email or web address] ([place], [place], [place], [place]) Address [address] [place] [address] Care Team Providers Care Sofa Inspector Name Role Phone [facility], Provider Not In The System Primary Care [...] unspecified whether nausea present Anticoagulated on Eliquis [facility] [address] [place] [address] Phone: tel: fax: [facility] [address] [place] [address] Phone: tel: fax: Referral ID Status Reason Start Date Expiration Date Visits Re quested Visits Authorized [id number] 1 1 Encounter Details Date Type Department Care Team (Late st Contact Info) Description 02/06/2025 5:35 PM EDT - 02/09/2025 12:35 PM EDT Hospital Encounter [facility] [address] [place] [address] Laura Gibson DO [address] [place] [address] Ricardo Gordon MD [address] [place] [address], [place] [phone] Von Sloan PA-C [address] [place] [address] Lauren NaraSEAN childs [address] [phone] Zhou Nassar DO [address] [phone] Sania Salcido MD [address] [phone] Hematemesis with nausea (Primary Dx); Hematemesis; Nusrat-Prajapati [...] Do you speak a language other than Israeli at [facility]? No 02/07/2025 Do you want help with [...] In The System MD Jorje Hospital Course Sole Buffer(s): GI, pulmonology Discharge Diagnosis: Nusrat-Prajapati tear Hematemesis [...] Your Medications These medications were sent to [facility] at [address] 1401 [facility] [address] pantoprazole 40 MG tablet sucralfate 100 mg/mL [...] System MD Jorje Relationship: PCP - [place] [address] Next Steps: Schedule an appointment as soon as possible for a visit in 1 week(s) Instructions: Unable to reach the office of pcp. Please call to schedule. repeat CBC Marisa Garcia MD Specialty: Gastroenterology 1401 [facility] [address] [place] [address] Next Steps: Follow up in 2 month(s) Instructions: Repeat EGD office will be reaching out with appontment. Time Spent on Discharge: I spent 35 minutes in ftic-fa-gfue time with the patient and nursing staffconcerning [...] by: Zhou Nassar DO 02/09/2025, 1:11 PM [employer] documented in this encounter Discharge Instructions * Attachments The following attachments cannot be sent through Care Everywhere. * Hemoptysis Fwwz-hf-Ppvo (Israeli) * Nusrat-Prajapati Syndrome (Israeli) documented in this encounter Medications at Time [...] ESOPHAGOGASTRODUODENOSCOPY (EGD); Surgeon: Marisa Garcia MD; Location: [facility]; Service: Gastroenterology; Laterality: N/A; Allergies: No Known [...] personally evaluated the patient and performed a wffw-rx-xolo diagnostic evaluation on this patient; I have Obtained history, performed physical examination, reviewed laboratory studies. I have independently interpreted chest images. I have actively directed the medical care, formulated diagnosis, and the plan of care. Patient requires a high complexity of decision making for assessment.Voice supervisor files technology ([employer]) is used for dictation of this note and sound-alike words might be erroneously placed despite reviewing the note for accuracy. Errors in dictation may reflect use of voice recognition software and not all errors in supervisor files may have been detected prior to signing. * Nraa Aguilar APRN - 02/08/2025 2:32 PM EDT [...] Prophylaxis: SCDs Code Status: DNR Emergency Contact: Sandvoal Torres 02/08/25 MDM: The following labs and [...] Procedure Component Value Units Date/Time CTA chest [[id number]] Collected: 02/06/252134 Order Status: Completed Updated: 02/06/252155 [...] by Gareth Meza. CTA abdomen & pelvis [[id number]] Collected: 02/06/252134 Order Status: Completed Updated: 02/06/252155 [...] APRN, 02/08/2025 at 7:50 AM Cosigned by aMrisa Garcia MD at 02/08/2025 4:21 PM EDT * Nara Aguilar, RACE RELATIONS PROFESSOR - 02/07/2025 3:35 PM EDT [employer] [...] 67 BPM ATRIAL RATE (MCT) 69 BPM NM Interval 152 ms QRS-INTERVAL (MSEC) 80 ms QT Interval 386 ms QTC Interval 407 ms P [place] 57 degrees R AXIS (MCT) -71 degrees T Wave [place] 40 degrees [place] Diagnosis Age and gender specific ECG analysis [...] Balbuena Admit Date: 02/06/2025 LOS: 1 days Location:[address] [place] [address] PCP on file: Provider Not In The [...] 67 BPM ATRIAL RATE (MCT) 69 BPM NM Interval 152 ms QRS-INTERVAL (MSEC) 80 ms QT Interval 386 ms QTC Interval 407 ms P [place] 57 degrees R AXIS (MCT) -71 degrees T Wave [place] 40 degrees [place] Diagnosis Age and gender specific ECG analysis [...] Procedure Component Value Units Date/Time CTA chest [[id number]] Collected: 02/06/252134 Order Status: Completed Updated: 02/06/252155 [...] by Gareth Meza. CTA abdomen & pelvis [[id number]] Collected: 02/06/252134 Order Status: Completed Updated: 02/06/252155 [...] COPD, previous alcohol abuse, and hypertensionpresents to [facility] in [place], [place] for further evaluation and management of coughing up blood. Family at bedside assisted with history of present illness. Family states patient used to have history of alcohol abuse however patient has since stopped drinking approximately 1 year prior. Patient and family state that approximately 2 weeks prior to admission [facility] and states patient underwent what sounds like transesophageal echocardiogram. Patient seemingly tolerated procedure well with no obvious acute complications at that time. On day of admission patient began to begin coughing up blood and family states she had blood coming out of her nose. Patient and family deny recent nausea/vomiting or other precipitous symptoms. Patient sought evaluation at [facility] emergency department where patient began coughing upand [...] file. Documented Allergies: No Known Allergies Documented ROLLING MACHINE TENDER Medications: (Not in a hospital admission) Review [...] 67 BPM ATRIAL RATE (MCT) 69 BPM NM Interval 152 ms QRS-INTERVAL (MSEC) 80 ms QT Interval 386 ms QTC Interval 407 ms P [place] 57 degrees R AXIS (MCT) -71 degrees T Wave [place] 40 degrees [place] Diagnosis Age and gender specific ECG analysis [...] Procedure Component Value Units Date/Time CTA chest [[id number]] Collected: 02/06/252134 Order Status: Completed Updated: 02/06/252155 [...] by Gareth Meza. CTA abdomen & pelvis [[id number]] Collected: 02/06/252134 Order Status: Completed Updated: 02/06/252155 [...] with ER provider Dr. Ricardo Gordon at [facility] emergency department. -Laboratory work and pertinent imaging [...] ESOPHAGOGASTRODUODENOSCOPY (EGD); Surgeon: Marisa Garcia MD; Location: [facility]; Service: Gastroenterology; Laterality: N/A; Allergies: No Known [...] DNR. No vent. Disposition: 303 Tish Leiva, RACE RELATIONS PROFESSOR Time spent [address] chest [...] is agreeable to see us in clinic. Gold Charmer will see her in the morning. Cosigned [...] 67 BPM ATRIAL RATE (MCT) 69 BPM NM Interval 152 ms QRS-INTERVAL (MSEC) 80 ms QT Interval 386 ms QTC Interval 407 ms P [place] 57 degrees R AXIS (MCT) -71 degrees T Wave [place] 40 degrees [place] Diagnosis Age and gender specific ECG analysis [...] Value Units Date/Time CTA abdomen & pelvis [[id number]] Resulted: 02/06/251910 Order Status: Sent Updated: 02/06/251918 CTA chest [[id number]] Resulted: 02/06/251910 Order Status: Sent Updated: 02/06/251917 [...] bleeding or ulcer was visible. CPT Codes: 89551- EGD with bleeding control Surgeon(s) and Role: [...] HPI. Physical Exam ED Triage Vitals [02/06/25 5395] Encounter Vitals Group BP (!) 153/72 Systolic [...] 67 BPM ATRIAL RATE (MCT) 69 BPM NM Interval 152 ms QRS-INTERVAL (MSEC) 80 ms QT Interval 386 ms QTC Interval 407 ms P [place] 57 degrees R AXIS (MCT) -71 degrees T Wave [place] 40 degrees [place] Diagnosis Age and gender specific ECG analysis [...] Impression Diagnosis Comment Added By Time Added Nusrat-Praajpati tear Ricardo Gordon MD 02/06/2025 10:05 PM [...] AND HEMATOCRIT STAT 02/06/2025 8:22 PM EDT NM EGD TRANSORAL CONTROL BLEEDING ANY METHOD 02/06/2025 [...] - 15.7 GM/DL 02/08/2025 3:55 PM EDT [facility] Hematocrit 25.3(L) 34.1 - 44.9 % 02/08/2025 3:55 PM EDT [facility] Blood Venipuncture / Unknown 02/08/2025 3:46 PM EDT 02/08/2025 3:50 PM EDT Nara Aguilar RACE RELATIONS PROFESSOR LAB BLOOD ORDERABLES Fi nal Result Performing Organization Address City/State/[facility] [[email or web address]] Co de Phone Number [facility] [address] [place] [address] * (ABNORMAL) Manual Differential (02/08/2025 4:41 AM EDT) Pathologist [facility] Total Counted 100 02/08/2025 9:00 AM EDT [facility] % Neutros (manual) 70(H) 50 - 65 % 02/08/2025 9:00 AM EDT [facility] % Bands (manual) 2 % 02/08/2025 9:00 AM EDT [facility] % Lymphs (manual) 23(L) 24 - 44 % 02/08/2025 9:00 AM EDT [facility] % Monos (manual) 1(L) 4 - 5 % 02/08/2025 9:00 AM EDT [facility] % Eos (manual) 4(H) 0 - 3 % 02/08/2025 9:00 AM EDT [facility] RBC Morphology abnormal(A) Normal 9:00 AM EDT [facility] Platelet Estimate Adequate Adequate 02/08/2025 9:00 AM EDT [facility] Hypochromia 1+ 02/08/2025 9:00 AM EDT [facility] Ovalocytes 1+ 02/08/2025 9:00 AM EDT [facility] ANC# 5.54 K/ L 02/08/2025 9:00 AM EDT [facility] Blood Venipuncture / Unknown 02/08/2025 4:41 AM EDT 02/08/2025 5:01 AM EDT us Nara Aguilar RACE RELATIONS PROFESSOR LAB BLOOD ORDERABLES Fi nal Result [facility] [address] [phone] * (ABNORMAL) Comprehensive metabolic panel (02/08/2025 4:41 AM EDT) Sodium 135(L) 136 - 145 meq/L 02/08/2025 5:59 AM EDT [facility] Potassium 3.7 3.4 - 5.1 meq/L 02/08/2025 5:59 AM EDT [facility] Chloride 98 98 - 112 meq/L 02/08/2025 5:59 AM EDT [facility] CO2 29 22 - 29 meq/L 02/08/2025 5:59 AM EDT [facility] Calcium 9.1 8.4 - 10.2 mg/dL 02/08/2025 5:59 AM EDT [facility] Glucose 85 82 - 115 mg/dL 02/08/2025 5:59 AM EDT [facility] BUN 8.3(L) 9.8 - 20.1 mg/dL 02/08/2025 5:59 AM EDT [facility] Creatinine 0.77 0.57 - 1.11 mg/dL 02/08/2025 5:59 AM EDT [facility] BUN/Creatinine 11 8 - 20 02/08/2025 5:59 AM EDT [facility] eGFR (mL/min/1.73m2) 84 >=60 mL/min/1. 73m2 02/08/2025 5:59 AM EDT [facility] Albumin 2.3(L) 3.5 - 5.0 g/dL 02/08/2025 5:59 AM EDT [facility] Alkaline Phosphatase 38(L) 40 - 150 U/L 02/08/2025 5:59 AM EDT [facility] ALT <7 <=34 U/L 02/08/2025 5:59 AM EDT [facility] Comment: ALT2 reagent used for testing does not contain P5P supplementation and therefore may miss ALT elevations in patients with B6 deficiency. This population may be as high as 10% in the [place], with risk factors including malabsorption, drug interactions, and alcoholic hepatitis. AST 11 11 - 34 U/L 02/08/2025 5:59 AM EDT [facility] Comment: AST2 reagent used for testing does not contain P5P supplementation and therefore may miss AST elevations in patients with B6 deficiency. This population may be as high as 10% in the [place], with risk factors including malabsorption, drug interactions, and alcoholic hepatitis. Total Bilirubin 0.2 0.2 - 1.2 mg/dL 02/08/2025 5:59 AM EDT [facility] Protein, Total 5.0(L) 6.4 - 8.3 g/dL 02/08/2025 5:59 AM EDT [facility] Globulin 2.7 2.5 - 4.1 g/dL 02/08/2025 5:59 AM EDT [facility] Anion Gap 12 4 - 12 02/08/2025 5:59 AM EDT [facility] A/G Ratio 0.9 0.7 - 1.9 02/08/2025 5:59 AM EDT [facility] Osmolality Calc 267.8 mOsm/kg 5:59 AM EDT [facility] Blood Venipuncture / Unknown 02/08/2025 4:41 AM EDT 02/08/2025 5:05 AM EDT us Nara Aguilar RACE RELATIONS PROFESSOR LAB BLOOD ORDERABLES Fi nal Result [facility] [address] [phone] * Magnesium (02/08/2025 4:41 AM EDT) Magnesium 1.6 1.6 - 2.6 mg/dL 02/08/2025 5:54 AM EDT [facility] Blood Venipuncture / Unknown 02/08/2025 4:41 AM EDT 02/08/2025 5:05 AM EDT Nara Aguilar RACE RELATIONS PROFESSOR LAB BLOOD ORDERABLES Fi nal Result [facility] [address] [phone] * (ABNORMAL) CBC with automated diff (02/08/2025 4:41 AM EDT) [facility] WBC 7.7 4.0 - 10.0 K/ L 02/08/2025 6:12 AM EDT [facility] RBC 2.75(L) 3.93 - 5.22 M/ L 02/08/2025 6:12 AM EDT [facility] Hemoglobin 8.1(L) 11.2 - 15.7 GM/DL 02/08/2025 6:12 AM EDT [facility] Hematocrit 25.8(L) 34.1 - 44.9 % 02/08/2025 6:12 AM EDT [facility] MCV 94 79 - 95 fL 02/08/2025 6:12 AM EDT [facility] MCH 29.5 25.6 - 32.2 pg 02/08/2025 6:12 AM EDT [facility] MCHC 31.4(L) 32.2 - 35.5 GM/DL 02/08/2025 6:12 AM EDT [facility] RDW 14.2 11.7 - 14.4 % 02/08/2025 6:12 AM EDT [facility] Platelets 315 140 - 375 K/CU MM 02/08/2025 6:12 AM EDT [facility] MPV 9.0(L) 9.4 - 12.3 fL 02/08/2025 6:12 AM EDT [facility] NRBC Absolute <0.01 0 - 0.012 K/ul 02/08/2025 6:12 AM EDT [facility] Blood Venipuncture / Unknown 02/08/2025 4:41 AM EDT 02/08/2025 5:01 AM EDT Narrative [facility] - 02/08/2025 6:12 AM EDT When [...] noted Atypical Lymph flag noted Narairis Aguilar [facility] LAB BLOOD ORDERABLES Fi nal Result [facility] [address] [phone] * (ABNORMAL) Hemoglobin and hematocrit (02/07/2025 5:51 PM EDT) Hemoglobin 8.3(L) 11.2 - 15.7 GM/DL 02/07/2025 6:47 PM EDT [facility] Hematocrit 26.9(L) 34.1 - 44.9 % 02/07/2025 6:47 PM EDT [facility] Blood Venipuncture / Unknown 02/07/2025 5:51 PM EDT 02/07/2025 6:45 PM EDT Narairis Aguilar [facility] LAB BLOOD ORDERABLES Fi nal Result [facility] [address] [phone] * (ABNORMAL) Basic Metabolic Panel (02/07/2025 5:18 AM EDT) Sodium 136 136 - 145 meq/L 02/07/2025 6:20 AM EDT [facility] Potassium 4.9 3.4 - 5.1 meq/L 02/07/2025 6:20 AM EDT [facility] CO2 29 22 - 29 meq/L 02/07/2025 6:20 AM EDT [facility] Chloride 99 98 - 112 meq/L 02/07/2025 6:20 AM EDT [facility] Glucose 85 82 - 115 mg/dL 02/07/2025 6:20 AM EDT [facility] BUN 13.0 9.8 - 20.1 mg/dL 02/07/2025 6:20 AM EDT [facility] Creatinine 0.84 0.57 - 1.11 mg/dL 02/07/2025 6:20 AM EDT [facility] BUN/Creatinine 15 8 - 20 02/07/2025 6:20 AM EDT [facility] Calcium 10.0 8.4 - 10.2 mg/dL 02/07/2025 6:20 AM EDT [facility] Anion Gap 13(H) 4 - 12 02/07/2025 6:20 AM EDT [facility] eGFR (mL/min/1.73m2) 75 >=60 mL/min/1.7 3m2 02/07/2025 6:20 AM EDT [facility] Osmolality Calc 271.3 mOsm/kg 6:20 AM EDT [facility] Blood Venipuncture / Unknown 02/07/2025 5:18 AM EDT 02/07/2025 5:59 AM EDT us Von Sloan PA-C LAB BLOOD ORDERABLES Final Res ult Performing Organization Address City/State/[facility] [[email or web address]] Co de Phone Number [facility] [address] [phone] * (ABNORMAL) CBC - Hemogram (SJ-BKR) (02/07/2025 5:18 AM EDT) WBC 11.6(H) 4.0 - 10.0 K/ L 02/07/2025 6:04 AM EDT [facility] RBC 3.14(L) 3.93 - 5.22 M/ L 02/07/2025 6:04 AM EDT [facility] Hemoglobin 9.1(L) 11.2 - 15.7 GM/DL 02/07/2025 6:04 AM EDT [facility] Hematocrit 30.4(L) 34.1 - 44.9 % 02/07/2025 6:04 AM EDT [facility] MCV 97(H) 79 - 95 fL 02/07/2025 6:04 AM EDT [facility] MCH 29.0 25.6 - 32.2 pg 02/07/2025 6:04 AM EDT [facility] MCHC 29.9(L) 32.2 - 35.5 GM/DL 02/07/2025 6:04 AM EDT [facility] RDW 14.5(H) 11.7 - 14.4 % 02/07/2025 6:04 AM EDT [facility] Platelets 340 140 - 375 K/CU MM 02/07/2025 6:04 AM EDT [facility] MPV 9.1(L) 9.4 - 12.3 fL 02/07/2025 6:04 AM EDT [facility] Blood Venipuncture / Unknown 02/07/2025 5:18 AM EDT 02/07/2025 5:58 AM EDT us Von Sloan PA-C LAB BLOOD ORDERABLES Final Res ult [facility] [address] [place] [address] * (ABNORMAL) Hemoglobin and hematocrit (02/06/2025 8:22 PM EDT) Hemoglobin 9.0(L) 11.2 - 15.7 GM/DL 02/06/2025 8:28 PM EDT [facility] Hematocrit 29.3(L) 34.1 - 44.9 % 02/06/2025 8:28 PM EDT [facility] Blood Venipuncture / Unknown 02/06/2025 8:22 PM EDT 02/06/2025 8:25 PM EDT us Bear Whitney PA-C LAB BLOOD ORDERABLES Final Resul t [facility] [address] [place] [address], [facility] [phone] * CTA abdomen & pelvis (02/06/2025 7:19 [...] [place]. Transcribed by Gareth Meza. Laura Gibson [facility] CT ORDERABLES Final Result * CTA [...] [place]. Transcribed by Gareth Meza. Laura Gibson DO IMG CT ORDERABLES Final Result * (ABNORMAL) CBC with Auto Diff (02/06/2025 6:25 PM EDT) WBC 11.1(H) 4.0 - 10.0 K/ L 02/06/2025 7:07 [facility] RBC 3.47(L) 3.93 - 5.22 M/ L 02/06/2025 7:07 PM EDT [facility] Hemoglobin 10.2(L) 11.2 - 15.7 GM/DL 02/06/2025 7:07 PM [facility] Hematocrit 32.6(L) 34.1 - 44.9 % 02/06/2025 7:07 PM [facility] MCV 94 79 - 95 fL 02/06/2025 7:07 PM [facility] MCH 29.4 25.6 - 32.2 pg 02/06/2025 7:07 PM [facility] MCHC 31.3(L) 32.2 - 35.5 GM/DL 02/06/2025 7:07 PM [facility] RDW 14.6(H) 11.7 - 14.4 % 02/06/2025 7:07 PM [facility] Platelets 414(H) 140 - 375 K/CU MM 02/06/2025 7:07 PM EDT [facility] MPV 9.3(L) 9.4 - 12.3 fL 02/06/2025 7:07 PM EDT [facility] % Neutros 68 34 - 71 % 02/06/2025 7:07 PM EDT [facility] % Lymphs 23 19 - 52 % 02/06/2025 7:07 PM EDT [facility] % Monos 7 5 - 13 % 02/06/2025 7:07 PM EDT [facility] % Eos 2 1 - 6 % 02/06/2025 7:07 PM EDT [facility] % Baso 1 0 - 1 % 02/06/2025 7:07 PM EDT [facility] NRBC Absolute <0.01 0 - 0.012 K/ul 02/06/2025 7:07 PM EDT [facility] # Neutros 7.57(H) 1.56 - 6.13 K/ L 02/06/2025 7:07 PM EDT [facility] # Lymphs 2.55 1.18 - 3.74 K/ L 02/06/2025 7:07 PM EDT [facility] # Monos 0.72 0.24 - 0.86 K/ L 02/06/2025 7:07 PM EDT [facility] # Eos 0.18 0.04 - 0.36 K/ L 02/06/2025 7:07 PM EDT [facility] # Baso 0.07 0.01 - 0.08 K/ L 02/06/2025 7:07 PM EDT [facility] Immature Granulocytes-Re lative 0.40 0.01 - 0.43 % 02/06/2025 7:07 PM EDT [facility] # IG 0.04(H) 0.00 - 0.03 K/uL 02/06/2025 7:07 PM EDT [facility] Blood Venipuncture / Unknown 02/06/2025 6:25 PM EDT 02/06/2025 7:04 PM EDT Narrative [facility] - 02/06/2025 7:07 PM EDT When [...] ORDERABLES Final Resu lt Performing Organization Address [facility]/ZIP Co de Phone Number [facility] [address] [phone] * Type and Screen (02/06/2025 6:23 PM EDT) ABO/Rh O Positive 02/06/2025 6:05 PM EDT [facility] [place]) Antibody Screen Negative 02/06/2025 6:05 PM EDT [facility] [place] HISTCHK HIST CHECK PERFORMED 02/06/2025 6:05 PM EDT [facility] [place] Blood Venipuncture / Unknown 02/06/2025 6:23 PM EDT 02/06/2025 7:04 PM EDT us Laura Gibson DO [facility] TEST ORDERABLES Final Result Performing Organization Address [facility] Co de Phone Number [facility] ([place]) [address] [place] [address] * (ABNORMAL) aPTT (02/06/2025 6:23 PM EDT) aPTT 32.8(H) 22.0 - 32.0 seconds 02/06/2025 7:21 PM EDT [facility] Blood Venipuncture / Unknown 02/06/2025 6:23 PM EDT 02/06/2025 7:04 PM EDT us Laura Gibson DO LAB BLOOD ORDERABLES Final Resu lt Performing Organization Address [facility]/ZIP Co de Phone Number [facility] [address] [phone] * Prothrombin time/INR (02/06/2025 6:23 PM EDT) [facility] Protime 10.4 9.0 - 12.0 seconds 02/06/2025 7:21 PM EDT [facility] INR 0.93 0.80 - 1.10 02/06/2025 7:21 PM EDT [facility] Comment: Recommended therapeutic ranges using International Normalized Ratio (INR) are: INR RANGE 2.0 - 3.0 Routine oral anticoagulant therapy 2.5 - 3.5 Oral anticoagulant therapy for patients with thromboembolic events on standard doses of Coumadin and those with mechanical heart valves. Blood Venipuncture / Unknown 02/06/2025 6:23 PM EDT 02/06/2025 7:04 PM EDT [facility] LAB BLOOD ORDERABLES Final Resu lt Performing Organization Address [facility] [[email or web address]] Co de Phone Number [facility] [address] [phone] * High Sensitivity Troponin I (02/06/2025 6:23 PM EDT) [facility] Troponin I High Sensitivity (pg/mL) 12.2 <=14 pg/mL 02/06/2025 7:29 PM EDT [facility] Blood Venipuncture / Unknown 02/06/2025 6:23 PM EDT 02/06/2025 7:04 PM EDT Narrative [facility] - 02/06/2025 7:29 PM EDT Applicable to [facility] only. Effective October 06 the lab will begin using a new chemistry analyzer. HsTroponin methodology, reference ranges and critical values have changed. [facility] BLOOD ORDERABLES Final Resu lt Performing Organization Address City/[facility]/ZIP Co de Phone Number [facility] [address] [phone] * Magnesium (02/06/2025 6:23 PM EDT) Magnesium 1.9 1.6 - 2.6 mg/dL 02/06/2025 7:26 PM EDT [facility] Blood Venipuncture / Unknown 02/06/2025 6:23 PM EDT 02/06/2025 7:04 PM EDT us Laura Gibson DO LAB BLOOD ORDERABLES Final Resu lt [facility] [address] [phone] * (ABNORMAL) Comprehensive metabolic panel (02/06/2025 6:23 PM EDT) Sodium 137 136 - 145 meq/L 02/06/2025 7:26 PM EDT [facility] Potassium 5.1 3.4 - 5.1 meq/L 02/06/2025 7:26 PM EDT [facility] Chloride 93(L) 98 - 112 meq/L 02/06/2025 7:26 PM EDT [facility] CO2 36(H) 22 - 29 meq/L 02/06/2025 7:26 PM EDT [facility] Calcium 11.6(H) 8.4 - 10.2 mg/dL 02/06/2025 7:26 PM EDT [facility] Glucose 104 82 - 115 mg/dL 02/06/2025 7:26 PM EDT [facility] BUN 13.4 9.8 - 20.1 mg/dL 02/06/2025 7:26 PM EDT [facility] Creatinine 1.00 0.57 - 1.11 mg/dL 02/06/2025 7:26 PM EDT [facility] BUN/Creatinine 13 8 - 20 02/06/2025 7:26 PM EDT [facility] eGFR (mL/min/1.73m2) 61 >=60 mL/min/1. 73m2 02/06/2025 7:26 PM EDT [facility] Albumin 2.9(L) 3.5 - 5.0 g/dL 02/06/2025 7:26 PM EDT [facility] Alkaline Phosphatase 53 40 - 150 U/L 02/06/2025 7:26 PM EDT [facility] ALT 8 <=34 U/L 02/06/2025 7:26 PM EDT [facility] Comment: ALT2 reagent used for testing does not contain P5P supplementation and therefore may miss ALT elevations in patients with B6 deficiency. This population may be as high as 10% in the [place], with risk factors including malabsorption, drug interactions, and alcoholic hepatitis. AST 14 11 - 34 U/L 02/06/2025 7:26 PM EDT [facility] Comment: AST2 reagent used for testing does not contain P5P supplementation and therefore may miss AST elevations in patients with B6 deficiency. This population may be as high as 10% in the [place], with risk factors including malabsorption, drug interactions, and alcoholic hepatitis. Total Bilirubin 0.2 0.2 - 1.2 mg/dL 02/06/2025 7:26 PM EDT [facility] Protein, Total 6.5 6.4 - 8.3 g/dL 02/06/2025 7:26 PM EDT [facility] Globulin 3.6 2.5 - 4.1 g/dL 02/06/2025 7:26 PM EDT [facility] Anion Gap 13(H) 4 - 12 02/06/2025 7:26 PM EDT [facility] A/G Ratio 0.8 0.7 - 1.9 02/06/2025 7:26 PM EDT [facility] Osmolality Calc 274.4 mOsm/kg 7:26 PM EDT [facility] Blood Venipuncture / Unknown 02/06/2025 6:23 PM EDT 02/06/2025 7:04 PM EDT us Laura Gibson DO LAB BLOOD ORDERABLES Final Resu lt [facility] [address] [phone] * ECG 12 lead (02/06/2025 5:41 PM EDT) VENTRICULAR RATE EKG/MIN 67 BPM GE MUSE ATRIAL RATE (MCT) 69 BPM GE MUSE NM Interval 152 ms GE MUSE QRS-INTERVAL (MSEC) 80 ms GE MUSE QT Interval 386 ms GE MUSE QTC Interval 407 ms GE MUSE P [place] 57 degrees GE MUSE R AXIS (MCT) -71 degrees GE MUSE T Wave [place] 40 degrees GE MUSE [place] Diagnosis Age and gender specific ECG analysis [...] Explanatory comment: Nusrat-Prajapati tear/esophageal varices bleed prophylaxis 0900 (IVPB Started [...] HEAVENLY) 0043 (Given - Provider: Jordyn Garcia, CARBURETOR REBUILDER)0412 (Not Given - Provider: Jordyn Garcia, CARBURETOR REBUILDER - Reason: Patient/family refused)0740 (Given - Provider: Josee Lala, CARBURETOR REBUILDER)1025 (Given - Provider: Laura Falcon, BOAT BUILDER)1530 (Given - Provider: Laura Falcon, BOAT BUILDER)1940 (Given - Provider: Pete Mcnulty)2309 (Given - [...] minutes. documented in this encounter Care Teams Sofa Inspector Relationship Specialty Start Date End Date [facility], Provider Not In The System, [place] [address] PCP - General 02/06/25 documented as of this encounter
--- OUTSIDE RECORDS SUMMARY | 2025-02-06 17:35 | XMS_ITS | Encounter Summary ---
Author Organization [employer] ([place], [place], [place], [place]) Address [address] [place] [address] Care Team Providers Care Movable Bulkhead Installer Name Role Phone [facility], Provider Not In The System Primary Care [...] unspecified whether nausea present Anticoagulated on Eliquis [facility] [address] [place] [address] Phone: tel: fax: [facility] [address] [place] [address] Phone: tel: fax: Referral ID Status Reason Start Date Expiration Date Visits Re quested Visits Authorized [id number] 1 1 Encounter Details Date Type Department Care Team (Late st Contact Info) Description 02/06/2025 5:35 PM EDT - 02/09/2025 12:35 PM EDT Hospital Encounter [facility] [address] [place] [address] Laura Gibson DO [address] [place] [address] Ricardo Gordon MD [address] [place] [address], [place] [phone] Von Sloan PA-C [address] [place] [address] Lauren NaraSEAN childs [address] [phone] Zhou Nassar DO [address] [phone] Sania Salcido MD [address] [phone] Hematemesis with nausea (Primary Dx); Hematemesis; Nusrat-Prajapati [...] Do you speak a language other than [place] at [facility]? No 02/07/2025 Do you want help with [...] In The System MD Jorje Hospital Course Slat Basket Maker Helper(s): GI, pulmonology Discharge Diagnosis: Nusrat-Prajapati tear [...] Your Medications These medications were sent to [facility] at [address] [facility] [address] [address] pantoprazole 40 MG tablet sucralfate 100 mg/mL [...] System MD Jorje Relationship: PCP - General [place] [address] Next Steps: Schedule an appointment as soon as possible for a visit in 1 week(s) Instructions: Unable to reach the office of pcp. Please call to schedule. repeat CBC Marisa Garcia MD Specialty: Gastroenterology [address] [facility] [address] [place] [address] Next Steps: Follow up in 2 month(s) Instructions: Repeat EGD office will be reaching out with appontment. Time Spent on Discharge: I spent 35 minutes in [id number] time with the patient and nursing staffconcerning [...] be sent through Care Everywhere. 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 I have independently interpreted chest images. I have actively directed the medical care, formulated diagnosis, and the plan of care. Patient requires a high complexity of decision making for assessment.Voice us customs and border officer technology ([employer]) is used for dictation of this note and sound-alike words might be erroneously placed despite reviewing the note for accuracy. Errors in dictation may reflect use of voice recognition software and not all errors in us customs and border officer may have been detected prior to signing. [...] Procedure Component Value Units Date/Time CTA chest [[id number]] Collected: 02/06/252134 Order Status: Completed Updated: 02/06/252155 [...] by Gareth Meza. CTA abdomen & pelvis [[id number]] Collected: 02/06/252134 Order Status: Completed Updated: 02/06/252155 [...] 02/08/2025 4:21 PM EDT * Nara Aguilar, RAW STOCK MACHINE FEEDER - 02/07/2025 3:35 PM EDT [employer] [...] 67 BPM ATRIAL RATE (MCT) 69 BPM NV Interval 152 ms QRS-INTERVAL (MSEC) 80 ms QT Interval 386 ms QTC Interval 407 ms P Hardin 57 degrees R AXIS (MCT) -71 degrees T Wave Hardin 40 degrees [place] Diagnosis Age and gender specific ECG analysis [...] Balbuena Admit Date: 02/06/2025 LOS: 1 days Location:[address] [place] [address] PCP on file: Provider Not In The [...] 67 BPM ATRIAL RATE (MCT) 69 BPM NV Interval 152 ms QRS-INTERVAL (MSEC) 80 ms QT Interval 386 ms QTC Interval 407 ms P Hardin 57 degrees R AXIS (MCT) -71 degrees T Wave Hard[place] 40 degrees [place] Diagnosis Age and gender specific ECG analysis [...] Procedure Component Value Units Date/Time CTA chest [[id number]] Collected: 02/06/252134 Order Status: Completed Updated: 02/06/252155 [...] by Gareth Meza. CTA abdomen & pelvis [[id number]] Collected: 02/06/252134 Order Status: Completed Updated: 02/06/252155 [...] the origin of both renal arteries. The TERYR appears patent. The abdominal aorta is normal [...] and hypertensionpresents [facility] [place], [place] for further evaluation and management of coughing up blood. Family at bedside assisted with history of present illness. Family states patient used to have history of alcohol abuse however patient has since stopped drinking approximately 1 year prior. Patient and family state that approximately 2 weeks prior to admission [facility] and states patient underwent what sounds [...] file. Documented Allergies: No Known Allergies Documented INVENTORY COORDINATOR Medications: (Not in a hospital admission) Review [...] 67 BPM ATRIAL RATE (MCT) 69 BPM NV Interval 152 ms QRS-INTERVAL (MSEC) 80 ms QT Interval 386 ms QTC Interval 407 ms P Hardin 57 degrees R AXIS (MCT) -71 degrees T Wave [place] 40 degrees [place] Diagnosis Age and gender specific ECG analysis [...] Procedure Component Value Units Date/Time CTA chest [[id number]] Collected: 02/06/252134 Order Status: Completed Updated: 02/06/252155 [...] by Gareth Meza. CTA abdomen & pelvis [[id number]] Collected: 02/06/252134 Order Status: Completed Updated: 02/06/252155 [...] (EGD); Surgeon: Marisa Garcia MD; Location: [facility]; Service: Gastroenterology; Laterality: N/A; Allergies: No Known [...] DNR. No vent. Disposition: 303 Tish Leiva, RAW STOCK MACHINE FEEDER Time spent [address] chest [...] is agreeable to see us in clinic. Financial Management Analyst will see her in the morning. Cosigned [...] 67 BPM ATRIAL RATE (MCT) 69 BPM NV Interval 152 ms QRS-INTERVAL (MSEC) 80 ms QT Interval 386 ms QTC Interval 407 ms P Hardin 57 degrees R AXIS (MCT) -71 degrees T Wave Hardin 40 degrees [place] Diagnosis Age and gender specific ECG analysis [...] Value Units Date/Time CTA abdomen & pelvis [[id number]] Resulted: 02/06/251910 Order Status: Sent Updated: 02/06/251918 CTA chest [[id number]] Resulted: 02/06/251910 Order Status: Sent Updated: 02/06/251917 [...] bleeding or ulcer was visible. CPT Codes: 22935- EGD with bleeding control Surgeon(s) and Role: [...] HPI. Physical Exam ED Triage Vitals [02/06/25 9965] Encounter Vitals Group BP (!) 153/72 Systolic [...] 67 BPM ATRIAL RATE (MCT) 69 BPM NV Interval 152 ms QRS-INTERVAL (MSEC) 80 ms QT Interval 386 ms QTC Interval 407 ms P Hardin 57 degrees R AXIS (MCT) -71 degrees T Wave Hardin 40 degrees [place] Diagnosis Age and gender specific ECG analysis [...] AND HEMATOCRIT STAT 02/06/2025 8:22 PM EDT NV EGD TRANSORAL CONTROL BLEEDING ANY METHOD 02/06/2025 [...] - 15.7 GM/DL 02/08/2025 3:55 PM EDT [facility] Hematocrit 25.3(L) 34.1 - 44.9 % 02/08/2025 3:55 PM EDT [facility] Blood Venipuncture / Unknown 02/08/2025 3:46 PM EDT 02/08/2025 3:50 PM EDT Nara Aguilar RAW STOCK MACHINE FEEDER LAB BLOOD ORDERABLES Fi nal Result Performing Organization Address City/State/[facility] Co de Phone Number [facility] [address] [place] [address] * (ABNORMAL) Manual Differential (02/08/2025 4:41 AM EDT) Pathologist [facility] Total Counted 100 02/08/2025 9:00 AM EDT [facility] % Neutros (manual) 70(H) 50 - 65 % 02/08/2025 9:00 AM EDT [facility] % Bands (manual) 2 % 02/08/2025 9:00 AM EDT [facility] % Lymphs (manual) 23(L) 24 - 44 % 02/08/2025 9:00 AM EDT [facility] % Monos (manual) 1(L) 4 - 5 % 02/08/2025 9:00 AM EDT [facility] % Eos (manual) 4(H) 0 - 3 % 02/08/2025 9:00 AM EDT [facility] RBC Morphology abnormal(A) Normal 9:00 AM EDT [facility] Platelet Estimate Adequate Adequate 02/08/2025 9:00 AM EDT [facility] Hypochromia 1+ 02/08/2025 9:00 AM EDT [facility] Ovalocytes 1+ 02/08/2025 9:00 AM EDT [facility] ANC# 5.54 K/ L 02/08/2025 9:00 AM EDT [facility] Blood Venipuncture / Unknown 02/08/2025 4:41 AM EDT 02/08/2025 5:01 AM EDT us Nara Aguilar RAW STOCK MACHINE FEEDER LAB BLOOD ORDERABLES Fi nal Result [facility] [address] [phone] * (ABNORMAL) Comprehensive metabolic panel (02/08/2025 4:41 AM EDT) Sodium 135(L) 136 - 145 meq/L 02/08/2025 5:59 AM EDT [facility] Potassium 3.7 3.4 - 5.1 meq/L 02/08/2025 5:59 AM EDT [facility] Chloride 98 98 - 112 meq/L 02/08/2025 5:59 AM EDT [facility] CO2 29 22 - 29 meq/L 02/08/2025 5:59 AM EDT [facility] Calcium 9.1 8.4 - 10.2 mg/dL 02/08/2025 5:59 AM EDT [facility] Glucose 85 82 - 115 mg/dL 02/08/2025 5:59 AM EDT [facility] BUN 8.3(L) 9.8 - 20.1 mg/dL 02/08/2025 5:59 AM EDT [facility] Creatinine 0.77 0.57 - 1.11 mg/dL 02/08/2025 5:59 AM EDT [facility] BUN/Creatinine 11 8 - 20 02/08/2025 5:59 AM EDT [facility] eGFR (mL/min/1.73m2) 84 >=60 mL/min/1. 73m2 02/08/2025 5:59 AM EDT [facility] Albumin 2.3(L) 3.5 - 5.0 g/dL 02/08/2025 5:59 AM EDT [facility] Alkaline Phosphatase 38(L) 40 - 150 U/L 02/08/2025 5:59 AM EDT [facility] ALT <7 <=34 U/L 02/08/2025 5:59 AM EDT [facility] Comment: ALT2 reagent used for testing does not contain P5P supplementation and therefore may miss ALT elevations in patients with B6 deficiency. This population may be as high as 10% in the [place], with risk factors including malabsorption, drug interactions, and alcoholic hepatitis. AST 11 11 - 34 U/L 02/08/2025 5:59 AM EDT [facility] Comment: AST2 reagent used for testing does not contain P5P supplementation and therefore may miss AST elevations in patients with B6 deficiency. This population may be as high as 10% in the [place], with risk factors including malabsorption, drug interactions, and alcoholic hepatitis. Total Bilirubin 0.2 0.2 - 1.2 mg/dL 02/08/2025 5:59 AM EDT [facility] Protein, Total 5.0(L) 6.4 - 8.3 g/dL 02/08/2025 5:59 AM EDT [facility] Globulin 2.7 2.5 - 4.1 g/dL 02/08/2025 5:59 AM EDT [facility] Anion Gap 12 4 - 12 02/08/2025 5:59 AM EDT [facility] A/G Ratio 0.9 0.7 - 1.9 02/08/2025 5:59 AM EDT [facility] Osmolality Calc 267.8 mOsm/kg 5:59 AM EDT [facility] Blood Venipuncture / Unknown 02/08/2025 4:41 AM EDT 02/08/2025 5:05 AM EDT us Nara Aguilar RAW STOCK MACHINE FEEDER LAB BLOOD ORDERABLES Fi nal Result [facility] [address] [phone] * Magnesium (02/08/2025 4:41 AM EDT) Magnesium 1.6 1.6 - 2.6 mg/dL 02/08/2025 5:54 AM EDT [facility] Blood Venipuncture / Unknown 02/08/2025 4:41 AM EDT 02/08/2025 5:05 AM EDT Nara Aguilar RAW STOCK MACHINE FEEDER LAB BLOOD ORDERABLES Fi nal Result [facility] [address] [phone] * (ABNORMAL) CBC with automated diff (02/08/2025 4:41 AM EDT) [facility] WBC 7.7 4.0 - 10.0 K/ L 02/08/2025 6:12 AM EDT [facility] RBC 2.75(L) 3.93 - 5.22 M/ L 02/08/2025 6:12 AM EDT [facility] Hemoglobin 8.1(L) 11.2 - 15.7 GM/DL 02/08/2025 6:12 AM EDT [facility] Hematocrit 25.8(L) 34.1 - 44.9 % 02/08/2025 6:12 AM EDT [facility] MCV 94 79 - 95 fL 02/08/2025 6:12 AM EDT [facility] MCH 29.5 25.6 - 32.2 pg 02/08/2025 6:12 AM EDT [facility] MCHC 31.4(L) 32.2 - 35.5 GM/DL 02/08/2025 6:12 AM EDT [facility] RDW 14.2 11.7 - 14.4 % 02/08/2025 6:12 AM EDT [facility] Platelets 315 140 - 375 K/CU MM 02/08/2025 6:12 AM EDT [facility] MPV 9.0(L) 9.4 - 12.3 fL 02/08/2025 6:12 AM EDT [facility] NRBC Absolute <0.01 0 - 0.012 K/ul 02/08/2025 6:12 AM EDT [facility] Blood Venipuncture / Unknown 02/08/2025 4:41 AM EDT 02/08/2025 5:01 AM EDT Narrative [facility] - 02/08/2025 6:12 AM EDT [...] noted Atypical Lymph flag noted Narairis Aguilar [facility] LAB BLOOD ORDERABLES Fi nal Result [facility] [address] [phone] * (ABNORMAL) Hemoglobin and hematocrit (02/07/2025 5:51 PM EDT) Hemoglobin 8.3(L) 11.2 - 15.7 GM/DL 02/07/2025 6:47 PM EDT [facility] Hematocrit 26.9(L) 34.1 - 44.9 % 02/07/2025 6:47 PM EDT [facility] Blood Venipuncture / Unknown 02/07/2025 5:51 PM EDT 02/07/2025 6:45 PM EDT Narairis Aguilar [facility] LAB BLOOD ORDERABLES Fi nal Result [facility] [address] [phone] * (ABNORMAL) Basic Metabolic Panel (02/07/2025 5:18 AM EDT) Sodium 136 136 - 145 meq/L 02/07/2025 6:20 AM EDT [facility] Potassium 4.9 3.4 - 5.1 meq/L 02/07/2025 6:20 AM EDT [facility] CO2 29 22 - 29 meq/L 02/07/2025 6:20 AM EDT [facility] Chloride 99 98 - 112 meq/L 02/07/2025 6:20 AM EDT [facility] Glucose 85 82 - 115 mg/dL 02/07/2025 6:20 AM EDT [facility] BUN 13.0 9.8 - 20.1 mg/dL 02/07/2025 6:20 AM EDT [facility] Creatinine 0.84 0.57 - 1.11 mg/dL 02/07/2025 6:20 AM EDT [facility] BUN/Creatinine 15 8 - 20 02/07/2025 6:20 AM EDT [facility] Calcium 10.0 8.4 - 10.2 mg/dL 02/07/2025 6:20 AM EDT [facility] Anion Gap 13(H) 4 - 12 02/07/2025 6:20 AM EDT [facility] eGFR (mL/min/1.73m2) 75 >=60 mL/min/1.7 3m2 02/07/2025 6:20 AM EDT [facility] Osmolality Calc 271.3 mOsm/kg 6:20 AM EDT [facility] Blood Venipuncture / Unknown 02/07/2025 5:18 AM EDT 02/07/2025 5:59 AM EDT us Von Sloan PA-C LAB BLOOD ORDERABLES Final Res ult Performing Organization Address City/State/[facility] Co de Phone Number [facility] [address] [phone] * (ABNORMAL) CBC - Hemogram (SJ-BKR) (02/07/2025 5:18 AM EDT) WBC 11.6(H) 4.0 - 10.0 K/ L 02/07/2025 6:04 AM EDT [facility] RBC 3.14(L) 3.93 - 5.22 M/ L 02/07/2025 6:04 AM EDT [facility] Hemoglobin 9.1(L) 11.2 - 15.7 GM/DL 02/07/2025 6:04 AM EDT [facility] Hematocrit 30.4(L) 34.1 - 44.9 % 02/07/2025 6:04 AM EDT [facility] MCV 97(H) 79 - 95 fL 02/07/2025 6:04 AM EDT [facility] MCH 29.0 25.6 - 32.2 pg 02/07/2025 6:04 AM EDT [facility] MCHC 29.9(L) 32.2 - 35.5 GM/DL 02/07/2025 6:04 AM EDT [facility] RDW 14.5(H) 11.7 - 14.4 % 02/07/2025 6:04 AM EDT [facility] Platelets 340 140 - 375 K/CU MM 02/07/2025 6:04 AM EDT [facility] MPV 9.1(L) 9.4 - 12.3 fL 02/07/2025 6:04 AM EDT [facility] Blood Venipuncture / Unknown 02/07/2025 5:18 AM EDT 02/07/2025 5:58 AM EDT us Von Sloan PA-C LAB BLOOD ORDERABLES Final Res ult [facility] [address] [place] [address] * (ABNORMAL) Hemoglobin and hematocrit (02/06/2025 8:22 PM EDT) Hemoglobin 9.0(L) 11.2 - 15.7 GM/DL 02/06/2025 8:28 PM EDT [facility] Hematocrit 29.3(L) 34.1 - 44.9 % 02/06/2025 8:28 PM EDT [facility] Blood Venipuncture / Unknown 02/06/2025 8:22 PM EDT 02/06/2025 8:25 PM EDT us Bear Whitney PA-C LAB BLOOD ORDERABLES Final Resul t [facility] [address] [place] [address], [facility] [phone] * CTA abdomen & pelvis (02/06/2025 7:19 [...] Images reviewed, interpreted, and dictated by Dr. eRymundo Salamanca. Transcribed by Gareth Meza. Laura Gibson [...] - 10.0 K/ L 02/06/2025 7:07 PM [facility] RBC 3.47(L) 3.93 - 5.22 M/ L 02/06/2025 7:07 PM EDT [facility] Hemoglobin 10.2(L) 11.2 - 15.7 GM/DL 02/06/2025 7:07 PM [facility] Hematocrit 32.6(L) 34.1 - 44.9 % 02/06/2025 7:07 PM [facility] MCV 94 79 - 95 fL 02/06/2025 7:07 PM [facility] MCH 29.4 25.6 - 32.2 pg 02/06/2025 7:07 PM [facility] MCHC 31.3(L) 32.2 - 35.5 GM/DL 02/06/2025 7:07 PM [facility] RDW 14.6(H) 11.7 - 14.4 % 02/06/2025 7:07 PM [facility] Platelets 414(H) 140 - 375 K/CU MM 02/06/2025 7:07 PM EDT [facility] MPV 9.3(L) 9.4 - 12.3 fL 02/06/2025 7:07 PM EDT [facility] % Neutros 68 34 - 71 % 02/06/2025 7:07 PM EDT [facility] % Lymphs 23 19 - 52 % 02/06/2025 7:07 PM EDT [facility] % Monos 7 5 - 13 % 02/06/2025 7:07 PM EDT [facility] % Eos 2 1 - 6 % 02/06/2025 7:07 PM EDT [facility] % Baso 1 0 - 1 % 02/06/2025 7:07 PM EDT [facility] NRBC Absolute <0.01 0 - 0.012 K/ul 02/06/2025 7:07 PM EDT [facility] # Neutros 7.57(H) 1.56 - 6.13 K/ L 02/06/2025 7:07 PM EDT [facility] # Lymphs 2.55 1.18 - 3.74 K/ L 02/06/2025 7:07 PM EDT [facility] # Monos 0.72 0.24 - 0.86 K/ L 02/06/2025 7:07 PM EDT [facility] # Eos 0.18 0.04 - 0.36 K/ L 02/06/2025 7:07 PM EDT [facility] # Baso 0.07 0.01 - 0.08 K/ L 02/06/2025 7:07 PM EDT [facility] Immature Granulocytes-Re lative 0.40 0.01 - 0.43 % 02/06/2025 7:07 PM EDT [facility] # IG 0.04(H) 0.00 - 0.03 K/uL 02/06/2025 7:07 PM EDT [facility] Blood Venipuncture / Unknown 02/06/2025 6:25 PM EDT 02/06/2025 7:04 PM EDT Narrative [facility] - 02/06/2025 7:07 PM EDT [...] Final Resu lt Performing Organization Address [facility]/ZIP Co de Phone Number [facility] [address] [phone] * Type and Screen (02/06/2025 6:23 PM EDT) ABO/Rh O Positive 02/06/2025 6:05 PM EDT [facility] ([place]) Antibody Screen Negative 02/06/2025 6:05 PM EDT [facility] ([place]) HISTCHK HIST CHECK PERFORMED 02/06/2025 6:05 PM EDT [facility] ([place]) Blood Venipuncture / Unknown 02/06/2025 6:23 PM EDT 02/06/2025 7:04 PM EDT us Laura Gibson DO [facility] BLOOD BANK TEST ORDERABLES Final Result Performing Organization Address [facility] Co de Phone Number [facility] ([place]) [address] [place] [address] * (ABNORMAL) aPTT (02/06/2025 6:23 PM EDT) aPTT 32.8(H) 22.0 - 32.0 seconds 02/06/2025 7:21 PM EDT [facility] Blood Venipuncture / Unknown 02/06/2025 6:23 PM EDT 02/06/2025 7:04 PM EDT us Laura Gibson DO LAB BLOOD ORDERABLES Final Resu lt Performing Organization Address [facility]/ZIP Co de Phone Number [facility] [address] [phone] * Prothrombin time/INR (02/06/2025 6:23 PM EDT) [facility] Protime 10.4 9.0 - 12.0 seconds 02/06/2025 7:21 PM EDT [facility] INR 0.93 0.80 - 1.10 02/06/2025 7:21 PM EDT [facility] Comment: Recommended therapeutic ranges using International Normalized Ratio (INR) are: INR RANGE 2.0 - 3.0 Routine oral anticoagulant therapy 2.5 - 3.5 Oral anticoagulant therapy for patients with thromboembolic events on standard doses of Coumadin and those with mechanical heart valves. Blood Venipuncture / Unknown 02/06/2025 6:23 PM EDT 02/06/2025 7:04 PM EDT [employer] LAB BLOOD ORDERABLES Final Resu lt Performing Organization Address [facility] Co de Phone Number [facility] [address] [phone] * High Sensitivity Troponin I (02/06/2025 6:23 PM EDT) [facility] Troponin I High Sensitivity (pg/mL) 12.2 <=14 pg/mL 02/06/2025 7:29 PM EDT [facility] Blood Venipuncture / Unknown 02/06/2025 6:23 PM EDT 02/06/2025 7:04 PM EDT Narrative [facility] - 02/06/2025 7:29 PM EDT Applicable to [facility] only. Effective October 06 the lab will begin using a new chemistry analyzer. HsTroponin methodology, reference ranges and critical values have changed. [employer] [facility] BLOOD ORDERABLES Final Resu lt Performing Organization Address City/[facility]/ZIP Co de Phone Number [facility] [address] [phone] * Magnesium (02/06/2025 6:23 PM EDT) Magnesium 1.9 1.6 - 2.6 mg/dL 02/06/2025 7:26 PM EDT [facility] Blood Venipuncture / Unknown 02/06/2025 6:23 PM EDT 02/06/2025 7:04 PM EDT us Laura Gibson DO LAB BLOOD ORDERABLES Final Resu lt [facility] [address] [phone] * (ABNORMAL) Comprehensive metabolic panel (02/06/2025 6:23 PM EDT) Sodium 137 136 - 145 meq/L 02/06/2025 7:26 PM EDT [facility] Potassium 5.1 3.4 - 5.1 meq/L 02/06/2025 7:26 PM EDT [facility] Chloride 93(L) 98 - 112 meq/L 02/06/2025 7:26 PM EDT [facility] CO2 36(H) 22 - 29 meq/L 02/06/2025 7:26 PM EDT [facility] Calcium 11.6(H) 8.4 - 10.2 mg/dL 02/06/2025 7:26 PM EDT [facility] Glucose 104 82 - 115 mg/dL 02/06/2025 7:26 PM EDT [facility] BUN 13.4 9.8 - 20.1 mg/dL 02/06/2025 7:26 PM EDT [facility] Creatinine 1.00 0.57 - 1.11 mg/dL 02/06/2025 7:26 PM EDT [facility] BUN/Creatinine 13 8 - 20 02/06/2025 7:26 PM EDT [facility] eGFR (mL/min/1.73m2) 61 >=60 mL/min/1. 73m2 02/06/2025 7:26 PM EDT [facility] Albumin 2.9(L) 3.5 - 5.0 g/dL 02/06/2025 7:26 PM EDT [facility] Alkaline Phosphatase 53 40 - 150 U/L 02/06/2025 7:26 PM EDT [facility] ALT 8 <=34 U/L 02/06/2025 7:26 PM EDT [facility] Comment: ALT2 reagent used for testing does not contain P5P supplementation and therefore may miss ALT elevations in patients with B6 deficiency. This population may be as high as 10% in the [place], with risk factors including malabsorption, drug interactions, and alcoholic hepatitis. AST 14 11 - 34 U/L 02/06/2025 7:26 PM EDT [facility] Comment: AST2 reagent used for testing does not contain P5P supplementation and therefore may miss AST elevations in patients with B6 deficiency. This population may be as high as 10% in the [place], with risk factors including malabsorption, drug interactions, and alcoholic hepatitis. Total Bilirubin 0.2 0.2 - 1.2 mg/dL 02/06/2025 7:26 PM EDT [facility] Protein, Total 6.5 6.4 - 8.3 g/dL 02/06/2025 7:26 PM EDT [facility] Globulin 3.6 2.5 - 4.1 g/dL 02/06/2025 7:26 PM EDT [facility] Anion Gap 13(H) 4 - 12 02/06/2025 7:26 PM EDT [facility] A/G Ratio 0.8 0.7 - 1.9 02/06/2025 7:26 PM EDT [facility] Osmolality Calc 274.4 mOsm/kg 7:26 PM EDT [facility] Blood Venipuncture / Unknown 02/06/2025 6:23 PM EDT 02/06/2025 7:04 PM EDT us Laura Gibson DO LAB BLOOD ORDERABLES Final Resu lt [facility] [address] [phone] * ECG 12 lead (02/06/2025 5:41 PM EDT) VENTRICULAR RATE EKG/MIN 67 BPM GE MUSE ATRIAL RATE (MCT) 69 BPM GE MUSE NV Interval 152 ms GE MUSE QRS-INTERVAL (MSEC) 80 ms GE MUSE QT Interval 386 ms GE MUSE QTC Interval 407 ms GE MUSE P [place] 57 degrees GE MUSE R AXIS (MCT) -71 degrees GE MUSE T Wave [place] 40 degrees GE MUSE [place] Diagnosis Age and gender specific ECG analysis [...] RN) 0900 (IVPB Started - Provider: Óscar Horowtiz RN)0930 (IVPB Stopped - Provider: Óscar Horowitz [...] HEAVENLY) 0043 (Given - Provider: Jordyn Garcia, GALLERY HOST)0412 (Not Given - Provider: Jordyn Garcia, GALLERY HOST - Reason: Patient/family refused)0740 (Given - Provider: Josee Lala, GALLERY HOST)1025 (Given - Provider: Laura Falcon, STAFF NURSE)1530 (Given - Provider: Laura Falcon, STAFF NURSE)1940 (Given - Provider: Pete Mcnulty)2309 (Given - [...] minutes. documented in this encounter Care Teams Movable Bulkhead Installer Relationship Specialty Start Date End Date [facility], Provider Not In The System, [place] [address] PCP - General 02/06/25 documented as of this encounter
--- OUTSIDE RECORDS SUMMARY | 2025-02-06 19:00 | XMS_ITS | Encounter Summary ---
Author Organization [employer] ([place], [place], [place], [place] Address [address] [place] [address] Care Team Providers Care Lawn And Garden Technician Name Role Phone [facility], [facility]ly [facility], Provider Not In The System [...] unspecified whether nausea present Anticoagulated on Eliquis [facility] Cardiac Telemetry 1 [place] [address] Phone: tel: fax: [facility] Cardiac Telemetry 1 [place] [address] Phone: tel: fax: Referral ID Status Reason Start Date Expiration Date Visits Re quested Visits Authorized [id number] 1 1 Encounter Details Date Type Department Care Team (Late st Contact Info) Description 02/06/2025 7:00 PM EDT - 02/06/2025 7:39 PM EDT Surgery [facility] Endoscopy 1 [place] [address] Marisa Garcia MD [address] [place] [address] ESOPHAGOGASTRODUODENOSCOPY (EGD) Social History Tobacco Use Types [...] your living situation today? I have a [facility] place to live 02/07/2025 Think about the [...] Do you speak a language other than Icelandic at [facility]? No 02/07/2025 Do you [...] The System MD Jorje Hospital Course Supervisor Brine(s): GI, pulmonology Discharge Diagnosis: Nusrat-Prajapati tear Hematemesis [...] These medications were sent to [facility] at [facility] [address] [facility] [address] [id number] pantoprazole 40 MG tablet sucralfate 100 mg/mL [...] MD Jorje Relationship: PCP - General [address] [place] [address] Next Steps: Schedule an appointment as soon as possible for a visit in 1 week(s) Instructions: Unable to reach the office of pcp. Please call to schedule. repeat CBC Marisa Garcia MD Specialty: Gastroenterology [address] [facility] [address] [place] [address] Next Steps: Follow up in 2 month(s) Instructions: Repeat EGD office will be reaching out with appontment. Time Spent on Discharge: I spent 35 minutes in [id number] time with the patient and nursing staffconcerning [...] be sent through Care Everywhere. 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 I have independently interpreted chest images. I have actively directed the medical care, formulated diagnosis, and the plan of care. Patient requires a high complexity of decision making for assessment.Voice regulatory specialist technology ([employer]) is used for dictation of this note and sound-alike words might be erroneously placed despite reviewing the note for accuracy. Errors in dictation may reflect use of voice recognition software and not all errors in regulatory specialist may have been detected prior to signing. [...] 3 mL, nebulization, Q6H PRN, Nara Aguilar, BOOT TURNER ipratropium-albuteroL (DUO-NEB) 0.5 mg-3 mg(2.5 mg base)/3 mL nebulizer solution 3 mL, 3 mL, nebulization, Q4H, Nara Aguilar, BOOT TURNER, 3 mL at 02/08/25 1025 magnesium sulfate [...] Balbuena Admit Date: 02/06/2025 LOS: 2 days Location:[facility]303- PCP on file: Provider Not In [...] Procedure Component Value Units Date/Time CTA chest [[id number]] Collected: 02/06/252134 Order Status: Completed Updated: 02/06/252155 [...] by Gareth Meza. CTA abdomen & pelvis [[id number]] Collected: 02/06/252134 Order Status: Completed Updated: 02/06/252155 [...] 67 BPM ATRIAL RATE (MCT) 69 BPM SC Interval 152 ms QRS-INTERVAL (MSEC) 80 ms QT Interval 386 ms QTC Interval 407 ms P [place] 57 degrees R AXIS (MCT) -71 degrees T Wave [place] 40 degrees [place] Diagnosis Age and gender specific ECG analysis [...] Balbuena Admit Date: 02/06/2025 LOS: 1 days Location:[address] [place] [address] PCP on file: Provider Not In The [...] 67 BPM ATRIAL RATE (MCT) 69 BPM SC Interval 152 ms QRS-INTERVAL (MSEC) 80 ms QT Interval 386 ms QTC Interval 407 ms P [place] 57 degrees R AXIS (MCT) -71 degrees T Wave [place] 40 degrees [place] Diagnosis Age and gender specific ECG analysis [...] Procedure Component Value Units Date/Time CTA chest [[id number]] Collected: 02/06/252134 Order Status: Completed Updated: 02/06/252155 [...] by Gareth Meza. CTA abdomen & pelvis [[id number]] Collected: 02/06/252134 Order Status: Completed Updated: 02/06/252155 [...] PA-C - 02/06/2025 10:35 PM EDT [facility] HOSPITAL[facility] HISTORY AND PHYSICAL Patient Name: Iqra Balbuena : 1955 Date: 02/06/2025 PCP: Provider Not In The System MD Jorje Date of Admission: 02/06/2025 Chief Complaint: Coughing up blood Chief Complaint Patient presents with coughing up blood History of Present Illness Iqra Balbuena is a 69 y.o. female with a history of COPD, previous alcohol abuse, and hypertensionpresents to [facility] in [place], [place] for further evaluation and management of coughing up blood. Family at bedside assisted with history of present illness. Family states patient used to have history of alcohol abuse however patient has since stopped drinking approximately 1 year prior. Patient and family state that approximately 2 weeks prior to admission [facility] and states patient underwent what sounds like transesophageal echocardiogram. Patient seemingly tolerated procedure well with no obvious acute complications at that time. On day of admission patient began to begin coughing up blood and family states she had blood coming out of her nose. Patient and family deny recent nausea/vomiting or other precipitous symptoms. Patient sought evaluation at [facility] emergency department where patient began coughing upand [...] file. Documented Allergies: No Known Allergies Documented FLEET SERVICE MANAGER Medications: (Not in a hospital admission) Review [...] data in the 24 hours ending 02/06/25 9587 Physical Exam Vitals reviewed. Constitutional: General: She [...] 67 BPM ATRIAL RATE (MCT) 69 BPM SC Interval 152 ms QRS-INTERVAL (MSEC) 80 ms QT Interval 386 ms QTC Interval 407 ms P [place] 57 degrees R AXIS (MCT) -71 degrees T Wave [place] 40 degrees [place] Diagnosis Age and gender specific ECG analysis [...] Procedure Component Value Units Date/Time CTA chest [[id number]] Collected: 02/06/252134 Order Status: Completed Updated: 02/06/252155 [...] by Gareth Meza. CTA abdomen & pelvis [[id number]] Collected: 02/06/252134 Order Status: Completed Updated: 02/06/252155 [...] reviewed, interpreted, and dictated by Dr. Reymundo Salamanac. Transcribed by Gareth eMza. All Documented Medications: Scheduled Meds: pantoprazole 40 [...] suspension 1 g 1 g oral Q6H [facility] Marisa Garcia MD 1 g at [...] with ER provider Dr. Ricardo Gordon at [facility] emergency department. -Laboratory work and pertinent imaging [...] ESOPHAGOGASTRODUODENOSCOPY (EGD); Surgeon: Marisa Garcia MD; Location: [facility]; Service: Gastroenterology; Laterality: N/A; Allergies: [...] is agreeable to see us in clinic. Waterproofing Mixer will see her in the morning. Cosigned [...] 67 BPM ATRIAL RATE (MCT) 69 BPM SC Interval 152 ms QRS-INTERVAL (MSEC) 80 ms QT Interval 386 ms QTC Interval 407 ms P [place] 57 degrees R AXIS (MCT) -71 degrees T Wave [place] 40 degrees [place] Diagnosis Age and gender specific ECG analysis [...] Value Units Date/Time CTA abdomen & pelvis [[id number]] Resulted: 02/06/251910 Order Status: Sent Updated: 02/06/251918 CTA chest [[id number]] Resulted: 02/06/251910 Order Status: Sent Updated: 02/06/251917 [...] bleeding or ulcer was visible. CPT Codes: 04075- EGD with bleeding control Surgeon(s) and Role: [...] 67 BPM ATRIAL RATE (MCT) 69 BPM SC Interval 152 ms QRS-INTERVAL (MSEC) 80 ms QT Interval 386 ms QTC Interval 407 ms P [place] 57 degrees R AXIS (MCT) -71 degrees T Wave [place] 40 degrees [place] Diagnosis Age and gender specific ECG analysis [...] AND HEMATOCRIT STAT 02/06/2025 8:22 PM EDT SC EGD TRANSORAL CONTROL BLEEDING ANY METHOD 02/06/2025 [...] Hemoglobin and hematocrit (02/08/2025 3:46 PM EDT) [facility] Hemoglobin 8.2(L) 11.2 - 15.7 GM/DL 02/08/2025 3:55 PM EDT [facility] Hematocrit 25.3(L) 34.1 - 44.9 % 02/08/2025 3:55 PM EDT [facility] Blood Venipuncture / Unknown 02/08/2025 3:46 PM EDT 02/08/2025 3:50 PM EDT us Nara Aguilar BOOT TURNER LAB BLOOD ORDERABLES Fi nal Result [facility] 1 [place] [address], [facility] [phone] * (ABNORMAL) Manual Differential (02/08/2025 4:41 AM EDT) [facility] Total Counted 100 02/08/2025 9:00 AM EDT [facility] % Neutros (manual) 70(H) 50 - 65 % 02/08/2025 9:00 AM EDT [facility] % Bands (manual) 2 % 02/08/2025 9:00 AM EDT [facility] % Lymphs (manual) 23(L) 24 - 44 % 02/08/2025 9:00 AM EDT [facility] % Monos (manual) 1(L) 4 - 5 % 02/08/2025 9:00 AM EDT [facility] % Eos (manual) 4(H) 0 - 3 % 02/08/2025 9:00 AM EDT [facility] RBC Morphology abnormal(A) Normal 9:00 AM EDT [facility] Platelet Estimate Adequate Adequate 02/08/2025 9:00 AM EDT [facility] Hypochromia 1+ 02/08/2025 9:00 AM EDT [facility] Ovalocytes 1+ 02/08/2025 9:00 AM EDT [facility] ANC# 5.54 K/ L 02/08/2025 9:00 AM EDT [facility] Blood Venipuncture / Unknown 02/08/2025 4:41 AM EDT 02/08/2025 5:01 AM EDT us Nara Aguilar BOOT TURNER LAB BLOOD ORDERABLES Fi nal Result Performing Organization Address [facility]/State/[facility] Co de Phone Number [facility] [address] [place] [address] * (ABNORMAL) Comprehensive metabolic panel (02/08/2025 4:41 AM EDT) Sodium 135(L) 136 - 145 meq/L 02/08/2025 5:59 AM EDT [facility] Potassium 3.7 3.4 - 5.1 meq/L 02/08/2025 5:59 AM EDT [facility] Chloride 98 98 - 112 meq/L 02/08/2025 5:59 AM EDT [facility] CO2 29 22 - 29 meq/L 02/08/2025 5:[address] [facility] Calcium 9.1 8.4 - 10.2 mg/dL 02/08/2025 5:[address] [facility] Glucose 85 82 - 115 mg/dL 02/08/2025 5:[address] [facility] BUN 8.3(L) 9.8 - 20.1 mg/dL 02/08/2025 5:[address] [facility] Creatinine 0.77 0.57 - 1.11 mg/dL 02/08/2025 5:[address] [facility] BUN/Creatinine 11 8 - 20 02/08/2025 5:[address] [facility] eGFR (mL/min/1.73m2) 84 >=60 mL/min/1. 73m2 02/08/2025 5:[address] [facility] Albumin 2.3(L) 3.5 - 5.0 g/dL 02/08/2025 5:[address] [facility] Alkaline Phosphatase 38(L) 40 - 150 U/L 02/08/2025 5:[address] [facility] ALT <7 <=34 U/L 02/08/2025 5:[address] [facility] Comment: ALT2 reagent used for testing does not contain P5P supplementation and therefore may miss ALT elevations in patients with B6 deficiency. This population may be as high as 10% in the [place], with risk factors including malabsorption, drug interactions, and alcoholic hepatitis. AST 11 11 - 34 U/L 02/08/2025 5:[address] [facility] Comment: AST2 reagent used for testing does not contain P5P supplementation and therefore may miss AST elevations in patients with B6 deficiency. This population may be as high as 10% in the [place], with risk factors including malabsorption, drug interactions, and alcoholic hepatitis. Total Bilirubin 0.2 0.2 - 1.2 mg/dL 02/08/2025 5:[address] [facility] Protein, Total 5.0(L) 6.4 - 8.3 g/dL 02/08/2025 5:[address] [facility] Globulin 2.7 2.5 - 4.1 g/dL 02/08/2025 5:59 AM EDT [facility] Anion Gap 12 4 - 12 02/08/2025 5:59 AM EDT [facility] A/G Ratio 0.9 0.7 - 1.9 02/08/2025 5:59 AM EDT [facility] Osmolality Calc 267.8 mOsm/kg 5:59 AM EDT [facility] Blood Venipuncture / Unknown 02/08/2025 4:41 AM EDT 02/08/2025 5:05 AM EDT Nara Aguilar BOOT TURNER LAB BLOOD ORDERABLES Fi nal Result Performing Organization Address City/[facility]/ZIP Co de Phone Number [facility] [address] [phone] * Magnesium (02/08/2025 4:41 AM EDT) Magnesium 1.6 1.6 - 2.6 mg/dL 02/08/2025 5:54 AM EDT [facility] Blood Venipuncture / Unknown 02/08/2025 4:41 AM EDT 02/08/2025 5:05 AM EDT Nara Aguilar BOOT TURNER LAB BLOOD ORDERABLES Fi nal Result Performing Organization Address City/[facility]/ZIP Co de Phone Number [facility] [address] [phone] * (ABNORMAL) CBC with automated diff (02/08/2025 4:41 AM EDT) WBC 7.7 4.0 - 10.0 K/ L 02/08/2025 6:12 AM EDT [facility] RBC 2.75(L) 3.93 - 5.22 M/ L 02/08/2025 6:12 AM EDT [facility] Hemoglobin 8.1(L) 11.2 - 15.7 GM/DL 02/08/2025 6:12 AM EDT [facility] Hematocrit 25.8(L) 34.1 - 44.9 % 02/08/2025 6:12 AM EDT [facility] MCV 94 79 - 95 fL 02/08/2025 6:12 AM EDT [facility] MCH 29.5 25.6 - 32.2 pg 02/08/2025 6:12 AM EDT [facility] MCHC 31.4(L) 32.2 - 35.5 GM/DL 02/08/2025 6:12 AM EDT [facility] RDW 14.2 11.7 - 14.4 % 02/08/2025 6:12 AM EDT [facility] Platelets 315 140 - 375 K/CU MM 02/08/2025 6:12 AM EDT [facility] MPV 9.0(L) 9.4 - 12.3 fL 02/08/2025 6:12 AM EDT [facility] NRBC Absolute <0.01 0 - 0.012 K/ul 02/08/2025 6:12 AM EDT [facility] Blood Venipuncture / Unknown 02/08/2025 4:41 AM EDT 02/08/2025 5:01 AM EDT [place] [facility] - 02/08/2025 6:12 AM EDT When [...] Atypical Lymph flag noted us Nara Aguilar BOOT TURNER LAB BLOOD ORDERABLES Fi nal Result [facility] [address] [place] [id number] [phone] * (ABNORMAL) Hemoglobin and hematocrit (02/07/2025 5:51 PM EDT) Hemoglobin 8.3(L) 11.2 - 15.7 GM/DL 02/07/2025 6:47 PM EDT [facility] Hematocrit 26.9(L) 34.1 - 44.9 % 02/07/2025 6:47 PM EDT [facility] Blood Venipuncture / Unknown 02/07/2025 5:51 PM EDT 02/07/2025 6:45 PM EDT Nara Blainealbarosaúl BOOT TURNER LAB BLOOD ORDERABLES Fi nal Result [facility] [address] [phone] * (ABNORMAL) Basic Metabolic Panel (02/07/2025 5:18 AM EDT) Sodium 136 136 - 145 meq/L 02/07/2025 6:20 AM EDT [facility] Potassium 4.9 3.4 - 5.1 meq/L 02/07/2025 6:20 AM EDT [facility] CO2 29 22 - 29 meq/L 02/07/2025 6:20 AM EDT [facility] Chloride 99 98 - 112 meq/L 02/07/2025 6:20 AM EDT [facility] Glucose 85 82 - 115 mg/dL 02/07/2025 6:20 AM EDT [facility] BUN 13.0 9.8 - 20.1 mg/dL 02/07/2025 6:20 AM EDT [facility] Creatinine 0.84 0.57 - 1.11 mg/dL 02/07/2025 6:20 AM EDT [facility] BUN/Creatinine 15 8 - 20 02/07/2025 6:20 AM EDT [facility] Calcium 10.0 8.4 - 10.2 mg/dL 02/07/2025 6:20 AM EDT [facility] Anion Gap 13(H) 4 - 12 02/07/2025 6:20 AM EDT [facility] eGFR (mL/min/1.73m2) 75 >=60 mL/min/1.7 3m2 02/07/2025 6:20 AM EDT [facility] Osmolality Calc 271.3 mOsm/kg 6:20 AM EDT [facility] Blood Venipuncture / Unknown 02/07/2025 5:18 AM EDT 02/07/2025 5:59 AM EDT us Von Sloan PA-C LAB BLOOD ORDERABLES Final Res ult [facility] [address] [phone] * (ABNORMAL) CBC - Hemogram (SJ-BKR) (02/07/2025 5:18 AM EDT) WBC 11.6(H) 4.0 - 10.0 K/ L 02/07/2025 6:04 AM EDT [facility] RBC 3.14(L) 3.93 - 5.22 M/ L 02/07/2025 6:04 AM EDT [facility] Hemoglobin 9.1(L) 11.2 - 15.7 GM/DL 02/07/2025 6:04 AM EDT [facility] Hematocrit 30.4(L) 34.1 - 44.9 % 02/07/2025 6:04 AM EDT [facility] MCV 97(H) 79 - 95 fL 02/07/2025 6:04 AM EDT [facility] MCH 29.0 25.6 - 32.2 pg 02/07/2025 6:04 AM EDT [facility] MCHC 29.9(L) 32.2 - 35.5 GM/DL 02/07/2025 6:04 AM EDT [facility] RDW 14.5(H) 11.7 - 14.4 % 02/07/2025 6:04 AM EDT [facility] Platelets 340 140 - 375 K/CU MM 02/07/2025 6:04 AM EDT [facility] MPV 9.1(L) 9.4 - 12.3 fL 02/07/2025 6:04 AM EDT [facility] Blood Venipuncture / Unknown 02/07/2025 5:18 AM EDT 02/07/2025 5:58 AM EDT Von Sloan PA-C LAB BLOOD ORDERABLES Final Res ult [facility] [address] [phone] * (ABNORMAL) Hemoglobin and hematocrit (02/06/2025 8:22 PM EDT) Hemoglobin 9.0(L) 11.2 - 15.7 GM/DL 02/06/2025 8:28 PM EDT [facility] Hematocrit 29.3(L) 34.1 - 44.9 % 02/06/2025 8:28 PM EDT [facility] Blood Venipuncture / Unknown 02/06/2025 8:22 PM EDT 02/06/2025 8:25 PM EDT Bear Whitney PA-C LAB BLOOD ORDERABLES Final Resul t [facility] [address] [place] [address], [facility] [phone] * CTA abdomen & pelvis (02/06/2025 7:19 [...] Transcribed by Gareth Meza. Laura Gibson DO [facility] ORDERABLES Final Result * CTA chest [...] by Gareth Meza. us Laura Gibson DO [facility] ORDERABLES Final Result * (ABNORMAL) CBC with Auto Diff (02/06/2025 6:25 PM EDT) WBC 11.1(H) 4.0 - 10.0 K/ L 02/06/2025 7:07 PM EDT [facility] RBC 3.47(L) 3.93 - 5.22 M/ L 02/06/2025 7:07 PM EDT [facility] Hemoglobin 10.2(L) 11.2 - 15.7 GM/DL 02/06/2025 7:07 PM EDT [facility] Hematocrit 32.6(L) 34.1 - 44.9 % 02/06/2025 7:07 PM EDT [facility] MCV 94 79 - 95 fL 02/06/2025 7:07 PM EDT [facility] MCH 29.4 25.6 - 32.2 pg 02/06/2025 7:07 PM EDT [facility] MCHC 31.3(L) 32.2 - 35.5 GM/DL 02/06/2025 7:07 PM EDT [facility] RDW 14.6(H) 11.7 - 14.4 % 02/06/2025 7:07 PM EDT [facility] Platelets 414(H) 140 - 375 K/CU MM 02/06/2025 7:07 PM EDT [facility] MPV 9.3(L) 9.4 - 12.3 fL 02/06/2025 7:07 PM EDT [facility] % Neutros 68 34 - 71 % 02/06/2025 7:07 PM EDT [facility] % Lymphs 23 19 - 52 % 02/06/2025 7:07 PM EDT [facility] % Monos 7 5 - 13 % 02/06/2025 7:07 PM EDT [facility] % Eos 2 1 - 6 % 02/06/2025 7:07 PM EDT [facility] % Baso 1 0 - 1 % 02/06/2025 7:07 PM EDT [facility] NRBC Absolute <0.01 0 - 0.012 K/ul 02/06/2025 7:07 PM EDT [facility] # Neutros 7.57(H) 1.56 - 6.13 K/ L 02/06/2025 7:07 PM EDT [facility] # Lymphs 2.55 1.18 - 3.74 K/ L 02/06/2025 7:07 PM EDT [facility] # Monos 0.72 0.24 - 0.86 K/ L 02/06/2025 7:07 PM EDT [facility] # Eos 0.18 0.04 - 0.36 K/ L 02/06/2025 7:07 PM EDT [facility] # Baso 0.07 0.01 - 0.08 K/ L 02/06/2025 7:07 PM EDT [facility] Immature Granulocytes-Re lative 0.40 0.01 - 0.43 % 02/06/2025 7:07 PM EDT [facility] # IG 0.04(H) 0.00 - 0.03 K/uL 02/06/2025 7:07 PM EDT [facility] Blood Venipuncture / Unknown 02/06/2025 6:25 PM EDT 02/06/2025 7:04 PM EDT Narrative [facility] - 02/06/2025 7:07 PM [...] DO LAB BLOOD ORDERABLES Final Resu lt [facility] [address] [phone] * Type and Screen (02/06/2025 6:23 PM EDT) ABO/Rh O Positive 02/06/2025 6:05 PM EDT [facility] ([place]) Antibody Screen Negative 02/06/2025 6:05 PM EDT [facility] ([place]) HISTCHK HIST CHECK PERFORMED 02/06/2025 6:05 PM EDT [facility] ([place]) Blood Venipuncture / Unknown 02/06/2025 6:23 PM EDT 02/06/2025 7:04 PM EDT Laura Gibson [facility] TEST ORDERABLES Final Result Performing Organization Address City/[facility]/ZIP Co de Phone Number [facility] ([place]) [address] [place] [address], [facility] [phone] * (ABNORMAL) aPTT (02/06/2025 6:23 PM EDT) aPTT 32.8(H) 22.0 - 32.0 seconds 02/06/2025 7:21 PM EDT [facility] Blood Venipuncture / Unknown 02/06/2025 6:23 PM EDT 02/06/2025 7:04 PM EDT [facility] B[facility] ORDERABLES Final Resu lt Performing Organization Address [facility] Co de Phone Number [facility] [address] [place] [address] * Prothrombin time/INR (02/06/2025 6:23 PM EDT) Protime 10.4 9.0 - 12.0 seconds 02/06/2025 7:21 PM EDT [facility] INR 0.93 0.80 - 1.10 02/06/2025 7:21 PM EDT [facility] Comment: Recommended therapeutic ranges using International Normalized Ratio (INR) are: INR RANGE 2.0 - 3.0 Routine oral anticoagulant therapy 2.5 - 3.5 Oral anticoagulant therapy for patients with thromboembolic events on standard doses of Coumadin and those with mechanical heart valves. Blood Venipuncture / Unknown 02/06/2025 6:23 PM EDT 02/06/2025 7:04 PM EDT [facility] BLOOD ORDERABLES Final Resu lt Performing Organization Address [facility]/ZIP Co de Phone Number [facility] [address] [phone] * High Sensitivity Troponin I (02/06/2025 6:23 PM EDT) [facility] Troponin I High Sensitivity (pg/mL) 12.2 <=14 pg/mL 02/06/2025 7:29 PM EDT [facility] Blood Venipuncture / Unknown 02/06/2025 6:23 PM EDT 02/06/2025 7:04 PM EDT Narrative [facility] - 02/06/2025 7:29 PM EDT Applicable to [facility] only. Effective October 06 the lab will begin using a new chemistry analyzer. HsTroponin methodology, reference ranges and critical values have changed. [facility] B[facility]OD ORDER[facility]LES Final Resu lt [facility] [address] [phone] * Magnesium (02/06/2025 6:23 PM EDT) [facility] Magnesium 1.9 1.6 - 2.6 mg/dL 02/06/2025 7:26 PM EDT [facility] Blood Venipuncture / Unknown 02/06/2025 6:23 PM EDT 02/06/2025 7:04 PM EDT [facility] LAB BLOOD ORDERABLES Final Resu lt [facility] [address] [phone] * (ABNORMAL) Comprehensive metabolic panel (02/06/2025 6:23 PM EDT) [facility] Sodium 137 136 - 145 meq/L 02/06/2025 7:26 PM EDT [facility] Potassium 5.1 3.4 - 5.1 meq/L 02/06/2025 7:26 PM EDT [facility] Chloride 93(L) 98 - 112 meq/L 02/06/2025 7:26 PM EDT [facility] CO2 36(H) 22 - 29 meq/L 02/06/2025 7:[address] [facility] Calcium 11.6(H) 8.4 - 10.2 mg/dL 02/06/2025 7:[address] [facility] Glucose 104 82 - 115 mg/dL 02/06/2025 7:[address] [facility] BUN 13.4 9.8 - 20.1 mg/dL 02/06/2025 7:[address] [facility] Creatinine 1.00 0.57 - 1.11 mg/dL 02/06/2025 7:[address] [facility] BUN/Creatinine 13 8 - 20 02/06/2025 7:[address] [facility] eGFR (mL/min/1.73m2) 61 >=60 mL/min/1. 73m2 02/06/2025 7:[address] [facility] Albumin 2.9(L) 3.5 - 5.0 g/dL 02/06/2025 7:[address] [facility] Alkaline Phosphatase 53 40 - 150 U/L 02/06/2025 7:[address] [facility] ALT 8 <=34 U/L 02/06/2025 7:[address] [facility] Comment: ALT2 reagent used for testing does not contain P5P supplementation and therefore may miss ALT elevations in patients with B6 deficiency. This population may be as high as 10% in the [place], with risk factors including malabsorption, drug interactions, and alcoholic hepatitis. AST 14 11 - 34 U/L 02/06/2025 7:[address] [facility] Comment: AST2 reagent used for testing does not contain P5P supplementation and therefore may miss AST elevations in patients with B6 deficiency. This population may be as high as 10% in the [place], with risk factors including malabsorption, drug interactions, and alcoholic hepatitis. Total Bilirubin 0.2 0.2 - 1.2 mg/dL 02/06/2025 7:[address] [facility] Protein, Total 6.5 6.4 - 8.3 g/dL 02/06/2025 7:[address] [facility] Globulin 3.6 2.5 - 4.1 g/dL 02/06/2025 7:26 PM EDT [facility] Anion Gap 13(H) 4 - 12 02/06/2025 7:26 PM EDT [facility] A/G Ratio 0.8 0.7 - 1.9 02/06/2025 7:26 PM EDT [facility] Osmolality Calc 274.4 mOsm/kg 7:26 PM EDT [facility] Blood Venipuncture / Unknown 02/06/2025 6:23 PM EDT 02/06/2025 7:04 PM EDT us Laura Gibson DO LAB BLOOD ORDERABLES Final Resu lt Performing Organization Address City/[facility]/ZIP Co de Phone Number [facility] [address] [phone] * ECG 12 lead (02/06/2025 5:41 PM EDT) VENTRICULAR RATE EKG/MIN 67 BPM GE MUSE ATRIAL RATE (MCT) 69 BPM GE MUSE SC Interval 152 ms GE MUSE QRS-INTERVAL (MSEC) 80 ms GE MUSE QT Interval 386 ms GE MUSE QTC Interval 407 ms GE MUSE P [place] 57 degrees GE MUSE R AXIS (MCT) -71 degrees GE MUSE T Wave [place] 40 degrees GE MUSE [place] Diagnosis Age and gender specific ECG analysis Normal sinus rhythm Left axis deviation Abnormal ECG When compared with ECG of 06-OCT-2024 19:45, Significant changes have occurred Confirmed by Edvin ESPINOZA, Margret (2019) on 02/08/2025 5:26:45 PM GE MUSE 02/06/2025 5:41 PM EDT 02/08/2025 5:26 PM EDT us Laura Gibson DO ECG ORDERABLES Final Result Performing Organization Address [facility]/ZIP Co de Phone Number [employer] * EKG-SCANNED (02/06/2025) Narrative 02/06/2025 Ordered by [...] Nebulization 1821 (Given - Provider: Sharona Maradiaga, PATIENT SERVICE COORDINATOR) 0043 (Given - Provider: Jordyn Garcia, SHOE CLERK)0412 (Not Given - Provider: Jordyn Garcia SHOE CLERK - Reason: Patient/family refused)0740 (Given - Provider: Josee Lala, SHOE CLERK)1025 (Given - Provider: Laura Falcon, PATIENT SERVICE COORDINATOR)1530 (Given - Provider: Laura Falcon, PATIENT SERVICE COORDINATOR)1940 (Given - Provider: Pete Mcnulty)2309 (Given - [...] minutes. documented in this encounter Care Teams Lawn And Garden Technician Relationship Specialty Start Date End Date Jorje, Provider Not In The System, [place] [address] PCP - General 02/06/25 documented as of this encounter
--- OUTSIDE RECORDS SUMMARY | 2025-02-06 19:00 | XMS_ITS | Encounter Summary ---
Author Organization [employer] ([place], [place], [place], [place]) Address [address] [place] [address] Care Team Providers Care Director Of Diversity And Inclusion Name Role Phone [facility], Provider Not In The System [...] unspecified whether nausea present Anticoagulated on Eliquis [facility] Cardiac Telemetry 1 [place] [address] Phone: tel: fax: [facility] Cardiac Telemetry 1 [place] [address] Phone: tel: fax: Referral ID Status Reason Start Date Expiration Date Visits Re quested Visits Authorized [id number] 1 1 Encounter Details Date Type Department Care Team (Late st Contact Info) Description 02/06/2025 7:00 PM EDT - 02/06/2025 7:39 PM EDT Surgery [facility] Endoscopy 1 [place] [address] Marisa Garcia MD [address] [place] [address] ESOPHAGOGASTRODUODENOSCOPY (EGD) Social History Tobacco Use Types [...] your living situation today? I have a [facility] place to live 02/07/2025 Think about [...] Do you speak a language other than Haitian at [facility]? No 02/07/2025 Do you want help [...] In The System MD Jorje Hospital Course Mine Technician(s): GI, pulmonology Discharge Diagnosis: Nusrat-Prajapati tear Hematemesis [...] Your Medications These medications were sent to [facility] [place] [address] [place] [address] [address] pantoprazole 40 MG tablet sucralfate 100 mg/mL [...] MD Jorje Relationship: PCP - General [address] [address] Next Steps: Schedule an appointment as soon as possible for a visit in 1 week(s) Instructions: Unable to reach the office of pcp. Please call to schedule. repeat CBC Marisa Garcia MD Specialty: Gastroenterology [address] [facility] [address] [place] [address] Next Steps: Follow up in 2 month(s) Instructions: Repeat EGD office will be reaching out with appontment. Time Spent on Discharge: I spent 35 minutes in [id number]-ufuj time with the patient and nursing staffconcerning [...] be sent through Care Everywhere. 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 I have independently interpreted chest images. I have actively directed the medical care, formulated diagnosis, and the plan of care. Patient requires a high complexity of decision making for assessment.Voice squash centre manager technology ([employer]) is used for dictation of this note and sound-alike words might be erroneously placed despite reviewing the note for accuracy. Errors in dictation may reflect use of voice recognition software and not all errors in squash centre manager may have been detected prior to signing. [...] 3 mL, nebulization, Q6H PRN, Nara Aguilar, NET MVC DEVELOPER ipratropium-albuteroL (DUO-NEB) 0.5 mg-3 mg(2.5 mg base)/3 mL nebulizer solution 3 mL, 3 mL, nebulization, Q4H, Nara Aguilar, NET MVC DEVELOPER, 3 mL at 02/08/25 1025 magnesium sulfate [...] Balbuena Admit Date: 02/06/2025 LOS: 2 days Location:[facility]303- PCP on file: Provider [...] Procedure Component Value Units Date/Time CTA chest [[id number]] Collected: 02/06/252134 Order Status: Completed Updated: 02/06/252155 [...] by Gareth Meza. CTA abdomen & pelvis [[id number]] Collected: 02/06/252134 Order Status: Completed Updated: 02/06/252155 [...] MD at 02/08/2025 4:21 PM EDT * Nraa Aguilar APRN - 02/07/2025 3:35 PM EDT [...] 67 BPM ATRIAL RATE (MCT) 69 BPM MN Interval 152 ms QRS-INTERVAL (MSEC) 80 ms QT Interval 386 ms QTC Interval 407 ms P Moro 57 degrees R AXIS (MCT) -71 degrees T Wave Moro 40 degrees [place] Diagnosis Age and gender specific ECG analysis [...] Balbuena Admit Date: 02/06/2025 LOS: 1 days Location:[address] [place] [address] PCP on file: Provider Not In The [...] 67 BPM ATRIAL RATE (MCT) 69 BPM MN Interval 152 ms QRS-INTERVAL (MSEC) 80 ms QT Interval 386 ms QTC Interval 407 ms P Moro 57 degrees R AXIS (MCT) -71 degrees T Wave Moro 40 degrees [place] Diagnosis Age and gender specific ECG analysis [...] Procedure Component Value Units Date/Time CTA chest [[id number]] Collected: 02/06/252134 Order Status: Completed Updated: 02/06/252155 [...] by Gareth Meza. CTA abdomen & pelvis [[id number]] Collected: 02/06/252134 Order Status: Completed Updated: 02/06/252155 [...] Sloan PA-C - 02/06/2025 10:35 PM EDT [facility] HOSPITALIST HISTORY AND PHYSICAL Patient Name: Iqra Balbuena : 1955 Date: 02/06/2025 PCP: Provider Not In The System MD Jorje Date of Admission: 02/06/2025 Chief Complaint: Coughing up blood Chief Complaint Patient presents with coughing up blood History of Present Illness Iqra Balbuena is a 69 y.o. female with a history of COPD, previous alcohol abuse, and hypertensionpresents to [facility] in [place], [place] for further evaluation and management of coughing up blood. Family at bedside assisted with history of present illness. Family states patient used to have history of alcohol abuse however patient has since stopped drinking approximately 1 year prior. Patient and family state that approximately 2 weeks prior to admission [facility] and states patient underwent what sounds like transesophageal echocardiogram. Patient seemingly tolerated procedure well with no obvious acute complications at that time. On day of admission patient began to begin coughing up blood and family states she had blood coming out of her nose. Patient and family deny recent nausea/vomiting or other precipitous symptoms. Patient sought evaluation at [facility] emergency department where patient began coughing [...] file. Documented Allergies: No Known Allergies Documented STORE DETECTIVE Medications: (Not in a hospital admission) Review [...] data in the 24 hours ending 02/06/25 7227 Physical Exam Vitals reviewed. Constitutional: General: She [...] 67 BPM ATRIAL RATE (MCT) 69 BPM MN Interval 152 ms QRS-INTERVAL (MSEC) 80 ms QT Interval 386 ms QTC Interval 407 ms P Moro 57 degrees R AXIS (MCT) -71 degrees T Wave Moro 40 degrees [place] Diagnosis Age and gender specific ECG analysis [...] Procedure Component Value Units Date/Time CTA chest [[id number]] Collected: 02/06/252134 Order Status: Completed Updated: 02/06/252155 [...] by Gareth Meza. CTA abdomen & pelvis [[id number]] Collected: 02/06/252134 Order Status: Completed Updated: 02/06/252155 [...] suspension 1 g 1 g oral Q6H [facility] Marisa Garcia MD 1 g [...] with ER provider Dr. Ricardo Gordon at [facility] emergency department. -Laboratory work and pertinent [...] (EGD); Surgeon: Marisa Garcia MD; Location: [facility]; Service: Gastroenterology; Laterality: N/A; Allergies: [...] is agreeable to see us in clinic. Ripening Room Hand will see her in the morning. Cosigned [...] 67 BPM ATRIAL RATE (MCT) 69 BPM MN Interval 152 ms QRS-INTERVAL (MSEC) 80 ms QT Interval 386 ms QTC Interval 407 ms P Moro 57 degrees R AXIS (MCT) -71 degrees T Wave Moro 40 degrees [place] Diagnosis Age and gender specific ECG analysis [...] Value Units Date/Time CTA abdomen & pelvis [[id number]] Resulted: 02/06/251910 Order Status: Sent Updated: 02/06/251918 CTA chest [[id number]] Resulted: 02/06/251910 Order Status: Sent Updated: 02/06/251917 [...] bleeding or ulcer was visible. CPT Codes: 79137- EGD with bleeding control Surgeon(s) and Role: [...] 67 BPM ATRIAL RATE (MCT) 69 BPM MN Interval 152 ms QRS-INTERVAL (MSEC) 80 ms QT Interval 386 ms QTC Interval 407 ms P Moro 57 degrees R AXIS (MCT) -71 degrees T Wave Moro 40 degrees [place] Diagnosis Age and gender specific ECG analysis [...] AND HEMATOCRIT STAT 02/06/2025 8:22 PM EDT MN EGD TRANSORAL CONTROL BLEEDING ANY METHOD 02/06/2025 [...] Hemoglobin and hematocrit (02/08/2025 3:46 PM EDT) [facility] Hemoglobin 8.2(L) 11.2 - 15.7 GM/DL 02/08/2025 3:55 PM EDT [facility] Hematocrit 25.3(L) 34.1 - 44.9 % 02/08/2025 3:55 PM EDT [facility] Blood Venipuncture / Unknown 02/08/2025 3:46 PM EDT 02/08/2025 3:50 PM EDT us Nara Aguilar NET MVC DEVELOPER LAB BLOOD ORDERABLES Fi nal Result [facility] 1 [place] [address], [facility] [phone] * (ABNORMAL) Manual Differential (02/08/2025 4:41 AM EDT) [facility] Total Counted 100 02/08/2025 9:00 AM EDT [facility] % Neutros (manual) 70(H) 50 - 65 % 02/08/2025 9:00 AM EDT [facility] % Bands (manual) 2 % 02/08/2025 9:00 AM EDT [facility] % Lymphs (manual) 23(L) 24 - 44 % 02/08/2025 9:00 AM EDT [facility] % Monos (manual) 1(L) 4 - 5 % 02/08/2025 9:00 AM EDT [facility] % Eos (manual) 4(H) 0 - 3 % 02/08/2025 9:00 AM EDT [facility] RBC Morphology abnormal(A) Normal 9:00 AM EDT [facility] Platelet Estimate Adequate Adequate 02/08/2025 9:00 AM EDT [facility] Hypochromia 1+ 02/08/2025 9:00 AM EDT [facility] Ovalocytes 1+ 02/08/2025 9:00 AM EDT [facility] ANC# 5.54 K/ L 02/08/2025 9:00 AM EDT [facility] Blood Venipuncture / Unknown 02/08/2025 4:41 AM EDT 02/08/2025 5:01 AM EDT us Nara Aguilar NET MVC DEVELOPER LAB BLOOD ORDERABLES Fi nal Result Performing Organization Address [facility]/State/[facility] Co de Phone Number [facility] [address] [place] [address] * (ABNORMAL) Comprehensive metabolic panel (02/08/2025 4:41 AM EDT) Sodium 135(L) 136 - 145 meq/L 02/08/2025 5:59 AM EDT [facility] Potassium 3.7 3.4 - 5.1 meq/L 02/08/2025 5:59 AM EDT [facility] Chloride 98 98 - 112 meq/L 02/08/2025 5:59 AM EDT [facility] CO2 29 22 - 29 meq/L 02/08/2025 5:59 AM [facility] Calcium 9.1 8.4 - 10.2 mg/dL 02/08/2025 5:59 AM [facility] Glucose 85 82 - 115 mg/dL 02/08/2025 5:59 AM [facility] BUN 8.3(L) 9.8 - 20.1 mg/dL 02/08/2025 5:59 AM [facility] Creatinine 0.77 0.57 - 1.11 mg/dL 02/08/2025 5:59 AM [facility] BUN/Creatinine 11 8 - 20 02/08/2025 5:59 AM [facility] eGFR (mL/min/1.73m2) 84 >=60 mL/min/1. 73m2 02/08/2025 5:59 AM [facility] Albumin 2.3(L) 3.5 - 5.0 g/dL 02/08/2025 5:59 AM [facility] Alkaline Phosphatase 38(L) 40 - 150 U/L 02/08/2025 5:59 AM [facility] ALT <7 <=34 U/L 02/08/2025 5:59 AM [facility] Comment: ALT2 reagent used for testing does not contain P5P supplementation and therefore may miss ALT elevations in patients with B6 deficiency. This population may be as high as 10% in the [place], with risk factors including malabsorption, drug interactions, and alcoholic hepatitis. AST 11 11 - 34 U/L 02/08/2025 5:59 AM [facility] Comment: AST2 reagent used for testing does not contain P5P supplementation and therefore may miss AST elevations in patients with B6 deficiency. This population may be as high as 10% in the [place], with risk factors including malabsorption, drug interactions, and alcoholic hepatitis. Total Bilirubin 0.2 0.2 - 1.2 mg/dL 02/08/2025 5:59 AM [facility] Protein, Total 5.0(L) 6.4 - 8.3 g/dL 02/08/2025 5:59 AM [facility] Globulin 2.7 2.5 - 4.1 g/dL 02/08/2025 5:59 AM EDT [facility] Anion Gap 12 4 - 12 02/08/2025 5:59 AM EDT [facility] A/G Ratio 0.9 0.7 - 1.9 02/08/2025 5:59 AM EDT [facility] Osmolality Calc 267.8 mOsm/kg 5:59 AM EDT [facility] Blood Venipuncture / Unknown 02/08/2025 4:41 AM EDT 02/08/2025 5:05 AM EDT Nara Aguilar NET MVC DEVELOPER LAB BLOOD ORDERABLES Fi nal Result Performing Organization Address City/[facility]/ZIP Co de Phone Number [facility] [address] [phone] * Magnesium (02/08/2025 4:41 AM EDT) Magnesium 1.6 1.6 - 2.6 mg/dL 02/08/2025 5:54 AM EDT [facility] Blood Venipuncture / Unknown 02/08/2025 4:41 AM EDT 02/08/2025 5:05 AM EDT Nara Aguilar NET MVC DEVELOPER LAB BLOOD ORDERABLES Fi nal Result Performing Organization Address City/[facility]/ZIP Co de Phone Number [facility] [address] [phone] * (ABNORMAL) CBC with automated diff (02/08/2025 4:41 AM EDT) WBC 7.7 4.0 - 10.0 K/ L 02/08/2025 6:12 AM EDT [facility] RBC 2.75(L) 3.93 - 5.22 M/ L 02/08/2025 6:12 AM EDT [facility] Hemoglobin 8.1(L) 11.2 - 15.7 GM/DL 02/08/2025 6:12 AM EDT [facility] Hematocrit 25.8(L) 34.1 - 44.9 % 02/08/2025 6:12 AM EDT [facility] MCV 94 79 - 95 fL 02/08/2025 6:12 AM EDT [facility] MCH 29.5 25.6 - 32.2 pg 02/08/2025 6:12 AM EDT [facility] MCHC 31.4(L) 32.2 - 35.5 GM/DL 02/08/2025 6:12 AM EDT [facility] RDW 14.2 11.7 - 14.4 % 02/08/2025 6:12 AM EDT [facility] Platelets 315 140 - 375 K/CU MM 02/08/2025 6:12 AM EDT [facility] MPV 9.0(L) 9.4 - 12.3 fL 02/08/2025 6:12 AM EDT [facility] NRBC Absolute <0.01 0 - 0.012 K/ul 02/08/2025 6:12 AM EDT [facility] Blood Venipuncture / Unknown 02/08/2025 4:41 AM EDT 02/08/2025 5:01 AM EDT [facility] - 02/08/2025 6:12 AM EDT [...] Atypical Lymph flag noted us Nara Aguilar NET MVC DEVELOPER LAB BLOOD ORDERABLES Fi nal Result [facility] [address] [place] [id number] [phone] * (ABNORMAL) Hemoglobin and hematocrit (02/07/2025 5:51 PM EDT) Hemoglobin 8.3(L) 11.2 - 15.7 GM/DL 02/07/2025 6:47 PM EDT [facility] Hematocrit 26.9(L) 34.1 - 44.9 % 02/07/2025 6:47 PM EDT [facility] Blood Venipuncture / Unknown 02/07/2025 5:51 PM EDT 02/07/2025 6:45 PM EDT Nara Blainealbarosaúl NET MVC DEVELOPER LAB BLOOD ORDERABLES Fi nal Result [facility] [address] [phone] * (ABNORMAL) Basic Metabolic Panel (02/07/2025 5:18 AM EDT) Sodium 136 136 - 145 meq/L 02/07/2025 6:20 AM EDT [facility] Potassium 4.9 3.4 - 5.1 meq/L 02/07/2025 6:20 AM EDT [facility] CO2 29 22 - 29 meq/L 02/07/2025 6:20 AM EDT [facility] Chloride 99 98 - 112 meq/L 02/07/2025 6:20 AM EDT [facility] Glucose 85 82 - 115 mg/dL 02/07/2025 6:20 AM EDT [facility] BUN 13.0 9.8 - 20.1 mg/dL 02/07/2025 6:20 AM EDT [facility] Creatinine 0.84 0.57 - 1.11 mg/dL 02/07/2025 6:20 AM EDT [facility] BUN/Creatinine 15 8 - 20 02/07/2025 6:20 AM EDT [facility] Calcium 10.0 8.4 - 10.2 mg/dL 02/07/2025 6:20 AM EDT [facility] Anion Gap 13(H) 4 - 12 02/07/2025 6:20 AM EDT [facility] eGFR (mL/min/1.73m2) 75 >=60 mL/min/1.7 3m2 02/07/2025 6:20 AM EDT [facility] Osmolality Calc 271.3 mOsm/kg 6:20 AM EDT [facility] Blood Venipuncture / Unknown 02/07/2025 5:18 AM EDT 02/07/2025 5:59 AM EDT us Von Sloan PA-C LAB BLOOD ORDERABLES Final Res ult [facility] [address] [phone] * (ABNORMAL) CBC - Hemogram (SJ-BKR) (02/07/2025 5:18 AM EDT) WBC 11.6(H) 4.0 - 10.0 K/ L 02/07/2025 6:04 AM EDT [facility] RBC 3.14(L) 3.93 - 5.22 M/ L 02/07/2025 6:04 AM EDT [facility] Hemoglobin 9.1(L) 11.2 - 15.7 GM/DL 02/07/2025 6:04 AM EDT [facility] Hematocrit 30.4(L) 34.1 - 44.9 % 02/07/2025 6:04 AM EDT [facility] MCV 97(H) 79 - 95 fL 02/07/2025 6:04 AM EDT [facility] MCH 29.0 25.6 - 32.2 pg 02/07/2025 6:04 AM EDT [facility] MCHC 29.9(L) 32.2 - 35.5 GM/DL 02/07/2025 6:04 AM EDT [facility] RDW 14.5(H) 11.7 - 14.4 % 02/07/2025 6:04 AM EDT [facility] Platelets 340 140 - 375 K/CU MM 02/07/2025 6:04 AM EDT [facility] MPV 9.1(L) 9.4 - 12.3 fL 02/07/2025 6:04 AM EDT [facility] Blood Venipuncture / Unknown 02/07/2025 5:18 AM EDT 02/07/2025 5:58 AM EDT Von Sloan PA-C LAB BLOOD ORDERABLES Final Res ult [facility] [address] [phone] * (ABNORMAL) Hemoglobin and hematocrit (02/06/2025 8:22 PM EDT) Hemoglobin 9.0(L) 11.2 - 15.7 GM/DL 02/06/2025 8:28 PM EDT [facility] Hematocrit 29.3(L) 34.1 - 44.9 % 02/06/2025 8:28 PM EDT [facility] Blood Venipuncture / Unknown 02/06/2025 8:22 PM EDT 02/06/2025 8:25 PM EDT Bear Whitney PA-C LAB BLOOD ORDERABLES Final Resul t [facility] [address] [place] [address], [facility] [phone] * CTA abdomen & pelvis (02/06/2025 7:19 [...] Transcribed by Gaerth Meza. Laura Gibson DO [facility] CT ORDERABLES Final Result * CTA chest [...] by Gareth Meza. us Laura Gibson DO [facility] CT ORDERABLES Final Result * (ABNORMAL) CBC with Auto Diff (02/06/2025 6:25 PM EDT) WBC 11.1(H) 4.0 - 10.0 K/ L 02/06/2025 7:07 PM EDT [facility] RBC 3.47(L) 3.93 - 5.22 M/ L 02/06/2025 7:07 PM EDT [facility] Hemoglobin 10.2(L) 11.2 - 15.7 GM/DL 02/06/2025 7:07 PM EDT [facility] Hematocrit 32.6(L) 34.1 - 44.9 % 02/06/2025 7:07 PM EDT [facility] MCV 94 79 - 95 fL 02/06/2025 7:07 PM EDT [facility] MCH 29.4 25.6 - 32.2 pg 02/06/2025 7:07 PM EDT [facility] MCHC 31.3(L) 32.2 - 35.5 GM/DL 02/06/2025 7:07 PM EDT [facility] RDW 14.6(H) 11.7 - 14.4 % 02/06/2025 7:07 PM EDT [facility] Platelets 414(H) 140 - 375 K/CU MM 02/06/2025 7:07 PM EDT [facility] MPV 9.3(L) 9.4 - 12.3 fL 02/06/2025 7:07 PM EDT [facility] % Neutros 68 34 - 71 % 02/06/2025 7:07 PM EDT [facility] % Lymphs 23 19 - 52 % 02/06/2025 7:07 PM EDT [facility] % Monos 7 5 - 13 % 02/06/2025 7:07 PM EDT [facility] % Eos 2 1 - 6 % 02/06/2025 7:07 PM EDT [facility] % Baso 1 0 - 1 % 02/06/2025 7:07 PM EDT [facility] NRBC Absolute <0.01 0 - 0.012 K/ul 02/06/2025 7:07 PM EDT [facility] # Neutros 7.57(H) 1.56 - 6.13 K/ L 02/06/2025 7:07 PM EDT [facility] # Lymphs 2.55 1.18 - 3.74 K/ L 02/06/2025 7:07 PM EDT [facility] # Monos 0.72 0.24 - 0.86 K/ L 02/06/2025 7:07 PM EDT [facility] # Eos 0.18 0.04 - 0.36 K/ L 02/06/2025 7:07 PM EDT [facility] # Baso 0.07 0.01 - 0.08 K/ L 02/06/2025 7:07 PM EDT [facility] Immature Granulocytes-Re lative 0.40 0.01 - 0.43 % 02/06/2025 7:07 PM EDT [facility] # IG 0.04(H) 0.00 - 0.03 K/uL 02/06/2025 7:07 PM EDT [facility] Blood Venipuncture / Unknown 02/06/2025 6:25 PM EDT 02/06/2025 7:04 PM EDT Narrative [facility] - 02/06/2025 7:07 PM [...] DO LAB BLOOD ORDERABLES Final Resu lt [facility] [address] [phone] * Type and Screen (02/06/2025 6:23 PM EDT) ABO/Rh O Positive 02/06/2025 6:05 PM EDT [facility] ([place]) Antibody Screen Negative 02/06/2025 6:05 PM EDT [facility] ([place]) HISTCHK HIST CHECK PERFORMED 02/06/2025 6:05 PM EDT [facility] ([place]) Blood Venipuncture / Unknown 02/06/2025 6:23 PM EDT 02/06/2025 7:04 PM EDT Laura Gibson [facility] TEST ORDERABLES Final Result Performing Organization Address City/[facility]/ZIP Co de Phone Number [facility] ([place]) [address] [place] [address], [facility] [phone] * (ABNORMAL) aPTT (02/06/2025 6:23 PM EDT) aPTT 32.8(H) 22.0 - 32.0 seconds 02/06/2025 7:21 PM EDT [facility] Blood Venipuncture / Unknown 02/06/2025 6:23 PM EDT 02/06/2025 7:[address] [facility] BLOOD ORDERABLES Final Resu lt Performing Organization Address [facility] Co de Phone Number [facility] [address] [place] [address] * Prothrombin time/INR (02/06/2025 6:23 PM EDT) Protime 10.4 9.0 - 12.0 seconds 02/06/2025 7:21 PM EDT [facility] INR 0.93 0.80 - 1.10 02/06/2025 7:21 PM EDT [facility] Comment: Recommended therapeutic ranges using International Normalized Ratio (INR) are: INR RANGE 2.0 - 3.0 Routine oral anticoagulant therapy 2.5 - 3.5 Oral anticoagulant therapy for patients with thromboembolic events on standard doses of Coumadin and those with mechanical heart valves. Blood Venipuncture / Unknown 02/06/2025 6:23 PM EDT 02/06/2025 7:04 PM EDT [facility] BLOOD ORDERABLES Final Resu lt Performing Organization Address [facility]/ZIP Co de Phone Number [facility] [address] [phone] * High Sensitivity Troponin I (02/06/2025 6:23 PM EDT) [facility] Troponin I High Sensitivity (pg/mL) 12.2 <=14 pg/mL 02/06/2025 7:29 PM EDT [facility] Blood Venipuncture / Unknown 02/06/2025 6:23 PM EDT 02/06/2025 7:04 PM EDT Narrative [facility] - 02/06/2025 7:29 PM EDT Applicable to [facility] only. Effective October 06 the lab will begin using a new chemistry analyzer. HsTroponin methodology, reference ranges and critical values have changed. [facility] B[facility]OD ORDERABLES Final Resu lt [facility] [address] [phone] * Magnesium (02/06/2025 6:23 PM EDT) [facility] Magnesium 1.9 1.6 - 2.6 mg/dL 02/06/2025 7:26 PM EDT [facility] Blood Venipuncture / Unknown 02/06/2025 6:23 PM EDT 02/06/2025 7:04 PM EDT [facility] LAB BLOOD ORDERABLES Final Resu lt [facility] [address] [phone] * (ABNORMAL) Comprehensive metabolic panel (02/06/2025 6:23 PM EDT) [facility] Sodium 137 136 - 145 meq/L 02/06/2025 7:26 PM EDT [facility] Potassium 5.1 3.4 - 5.1 meq/L 02/06/2025 7:26 PM EDT [facility] Chloride 93(L) 98 - 112 meq/L 02/06/2025 7:26 PM EDT [facility] CO2 36(H) 22 - 29 meq/L 02/06/2025 7:26 PM [facility] Calcium 11.6(H) 8.4 - 10.2 mg/dL 02/06/2025 7:26 PM [facility] Glucose 104 82 - 115 mg/dL 02/06/2025 7:26 PM [facility] BUN 13.4 9.8 - 20.1 mg/dL 02/06/2025 7:26 PM [facility] Creatinine 1.00 0.57 - 1.11 mg/dL 02/06/2025 7:26 PM [facility] BUN/Creatinine 13 8 - 20 02/06/2025 7:26 PM [facility] eGFR (mL/min/1.73m2) 61 >=60 mL/min/1. 73m2 02/06/2025 7:26 PM [facility] Albumin 2.9(L) 3.5 - 5.0 g/dL 02/06/2025 7:26 PM [facility] Alkaline Phosphatase 53 40 - 150 U/L 02/06/2025 7:26 PM [facility] ALT 8 <=34 U/L 02/06/2025 7:26 PM [facility] Comment: ALT2 reagent used for testing does not contain P5P supplementation and therefore may miss ALT elevations in patients with B6 deficiency. This population may be as high as 10% in the [place], with risk factors including malabsorption, drug interactions, and alcoholic hepatitis. AST 14 11 - 34 U/L 02/06/2025 7:26 PM [facility] Comment: AST2 reagent used for testing does not contain P5P supplementation and therefore may miss AST elevations in patients with B6 deficiency. This population may be as high as 10% in the [place], with risk factors including malabsorption, drug interactions, and alcoholic hepatitis. Total Bilirubin 0.2 0.2 - 1.2 mg/dL 02/06/2025 7:26 PM [facility] Protein, Total 6.5 6.4 - 8.3 g/dL 02/06/2025 7:26 PM [facility] Globulin 3.6 2.5 - 4.1 g/dL 02/06/2025 7:26 PM EDT [facility] Anion Gap 13(H) 4 - 12 02/06/2025 7:26 PM EDT [facility] A/G Ratio 0.8 0.7 - 1.9 02/06/2025 7:26 PM EDT [facility] Osmolality Calc 274.4 mOsm/kg 7:26 PM EDT [facility] Blood Venipuncture / Unknown 02/06/2025 6:23 PM EDT 02/06/2025 7:04 PM EDT us Laura Gibson DO LAB BLOOD ORDERABLES Final Resu lt Performing Organization Address City/[facility]/ZIP Co de Phone Number [facility] [address] [phone] * ECG 12 lead (02/06/2025 5:41 PM EDT) VENTRICULAR RATE EKG/MIN 67 BPM GE MUSE ATRIAL RATE (MCT) 69 BPM GE MUSE MN Interval 152 ms GE MUSE QRS-INTERVAL (MSEC) 80 ms GE MUSE QT Interval 386 ms GE MUSE QTC Interval 407 ms GE MUSE P [place] 57 degrees GE MUSE R AXIS (MCT) -71 degrees GE MUSE T Wave [place] 40 degrees GE MUSE [place] Diagnosis Age and gender specific ECG analysis Normal sinus rhythm Left axis deviation Abnormal ECG When compared with ECG of 06-OCT-2024 19:45, Significant changes have occurred Confirmed by Edvin ESPINOZA, Margret (2019) on 02/08/2025 5:26:45 PM GE MUSE 02/06/2025 5:41 PM EDT 02/08/2025 5:26 PM EDT us Laura Gibson DO ECG ORDERABLES Final Result Performing Organization Address [facility]/ZIP Co de Phone Number [employer] * EKG-SCANNED (02/06/2025) Narrative 02/06/2025 Ordered by [...] choose an indication: Other Indication, Explanatory comment: Nusart-Prajapati tear/esophageal varices bleed prophylaxis 0900 (IVPB Started [...] Nebulization 1821 (Given - Provider: Sharona Maradiaga, [facility]) 0043 (Given - Provider: Jordyn Garcia, RN UTILIZATION MANAGEMENT UM)0412 (Not Given - Provider: Jordyn Garcia RN UTILIZATION MANAGEMENT UM - Reason: Patient/family refused)0740 (Given - Provider: Josee Lala, RN UTILIZATION MANAGEMENT UM)1025 (Given - Provider: Laura Falcon, [facility])1530 (Given - Provider: Laura Falcon, [facility])1940 (Given - Provider: Pete Mcnulty)2309 (Given - [...] minutes. documented in this encounter Care Teams Director Of Diversity And Inclusion Relationship Specialty Start Date End Date Jorje, Provider Not In The System, [place] [address] PCP - General 02/06/25 documented as of this encounter
[2025-03-20] VITALS (9 sets, daily range): BP systolic 175–206; BP diastolic 79–94; PULSE 72–90; RESP 18–23; TEMP 36.6–37.2; O2SAT 92–97; BMI 23.9; BMI 24.1
--- NOTE | 2025-03-20 16:05 | ECG_ITS ---
APPROVED REPORT Exam: Resting ECG HR:76 bpm ECG Measurements Heart Rate 76 AXES AZ 142 P 91 QRSd 90 QRS -73 QT 353 T 29 QTc 384 Conclusion SINUS RHYTHM LEFT AXIS DEVIATION [QRS AXIS < -30] ABNORMAL ECG UNCONFIRMED REPORT Electronically signed by : JANICE BURROUGHS, 03/22/2025 23:08:05
--- NOTE | 2025-03-20 16:12 | XR_ITS ---
PROCEDURE INFORMATION: Exam: XR Chest Exam date and time: 03/20/2025 4:34 PM Age: 70 years old Clinical indication: Shortness of breath; Additional info: Short of breath TECHNIQUE: Imaging protocol: Radiologic exam of the chest. Views: 1 view. COMPARISON: 1. CR XR CHEST PORTABLE 02/28/2025 2:55 PM 2. CR XR CHEST PORTABLE 02/21/2025 4:[address] ANGIO CHEST PE PROTOCOL 02/28/2025 4:24 PM FINDINGS: Lungs: Lucency within the right and left upper lung and within the left mid and lower lung compatible with underlying COPD change. No overt CHF. No new airspace consolidation suspicious for pneumonia. Minimal patchy airspace opacity within the medial aspect of the right lower lobe is unchanged. Findings more in keeping with postinflammatory change or scarring. Pleural spaces: No large pleural effusion. No pneumothorax. Heart/Mediastinum: Heart size is within normal limits. The mediastinal contours are smooth. Vasculature: Mild central vascular fullness. Dense atherosclerotic plaque at the aortic arch and extending along the descending thoracic aorta. Bones/joints: Partial visualization of vertebral plasty change within the lower thoracic and upper lumbar spine. Multilevel degenerative changes are present throughout the spine. IMPRESSION: 1. No acute findings within the chest. 2. COPD changes are present bilaterally. Mild central vascular fullness. No overt CHF. No new airspace consolidation suspicious for pneumonia. No large pleural effusion or pneumothorax.
--- NOTE | 2025-03-20 16:15 | ED_ITS ---
Discharge Plan Disposition Patient Disposition: Admitted Clinical Impressions Clinical Impression: Hypoxic respiratory failure, COPD (chronic obstructive pulmonary disease), HTN (hypertension), COPD mixed type Pneumonia Qualifiers: Pneumonia type: due to Pseudomonas Laterality: left Lung location: lower lobe of lung Qualified Code(s): J15.1 - Pneumonia due to Pseudomonas Discharge ED Provider: Chance Pastrana JR HPI <Stephanie Espinoza (ED), ASSISTANT TECHNICIAN - Last Filed: 03/20/25 21:44> General Chief Complaint: Shortness of Breath/Dyspnea Stated Complaint: SOA Time Seen by Provider: 03/20/25 16:01 Mode of Arrival: Wheelchair Source of Information: Patient Description of Symptoms (Recalled from ER Triage Doc. by RN): Patient states she has been feeling short of breath the last couple of days. Denies cough or fever. History of Present Illness HPI narrative: 70-year-old female presents to the ED today with complaint of shortness of air over the last couple of days. No fever. She does have a cough but this is normal for patient. She has edema in bilateral lower extremities but this is normal for patient, she has a sore where she hit the fan in her room. It is open and draining. She complains of elevated blood pressure over the last couple days as well. She is concerned about this. She is trying to quit smoking and trying to chew gum. She wears 2 to 3 L nasal cannula baseline. She initially did not have oxygen on and her O2 was 60 to 70%. Patient has significant history of respiratory failure, COPD, acute kidney injury, A-fib, PVD, among others. Related Data Home Medications ?Medication ?Instructions ?Recorded ?Confirmed albuterol sulfate 90 mcg/actuation 2 inh inhalation Q6 HP PRN 04/15/24 03/20/25 aerosol inhaler Shortness Of Breath montelukast 10 mg tablet 10 mg PO PM 04/15/24 5 apixaban 5 mg tablet (Eliquis) 5 mg PO BID 01/28/25 losartan 100 mg tablet 100 mg PO DAILY 01/28/2501/06 alprazolam 1 mg tablet 1 mg PO BID 03/01/25 5 calcium 600 mg (as 200 tab PO BID 03/20/2501/06 carbonate)-vitamin D3 5 mcg (200 unit) tablet celecoxib 50 mg capsule 50 mg PO DAILY 03/20/2501/06 ciclopirox 0.77 % topical cream 0 applic topical BID 0 03/20/25 03/20/25 gabapentin 800 mg tablet 800 mg PO TID 03/20/2503/20 hydrocodone 10 mg-acetaminophen 10 - 325 tab PO QID 03/20/25 325 mg tablet potassium chloride 20 mEq 20 meq PO BID 03/20/2503/20 tablet,extended release(part/cryst) Previous Rx's ?Medication ?Instructions ?Recorded digoxin 125 mcg (0.125 mg) tablet 125 mcg PO DAILY #30 tabs 12/01/24 metoprolol succinate 100 mg 100 mg PO HS 30 days #30 t abs 12/01/24 tablet,extended release 24 hr furosemide 40 mg tablet (Lasix) 40 mg PO DAILY #30 tab s 03/01/25 Allergies Allergy/AdvReac Type Severity Reaction Status Date / Time No Known Allergies Allergy Verified 03/18/25 11:45 PFS <Stephanie Espinoza (ED), ASSISTANT TECHNICIAN - Last Filed: 03/20/25 21:44> [facility] Disclaimer: The information contained in this section may have been updated after the patient was seen, as this information can be updated by other users. Medical History Unspecified disturbances of skin sensation Other specified symptoms and signs involving the circulatory and respiratory systems HTN (hypertension) HLD (hyperlipidemia) Pneumonia Fecal occult blood test positive Sepsis without septic shock Lymphedema Physical deconditioning General weakness Lung mass Hypomagnesemia Acute hypokalemia Chronic hyponatremia Generalized weakness COPD mixed type Lung nodule Hypokalemia Elevated troponin Nocturnal hypoxemia Pulmonary emphysema Incidental pulmonary nodule, greater than or equal to 8mm Smoking greater than 30 pack years Dyspnea on exertion Tobacco abuse disorder Tobacco abuse counseling Cervical cancer Surgical History History of dilation and curettage History of back surgery Family History Diabetes Social History Smoking Status: Current every day smoker tobacco type: cigarettes packs per day: 2 second hand exposure: Yes alcohol intake: never substance use type: denies use current occupational status: unemployed Travel in the last 8 weeks?: None household members: spouse housing: house current occupational exposures/hazards: No Have you lived/traveled outside [place] in past 30 days?: No Contact w/someone who lives/traveled outside US past 30 days?: No Exposure to someone with infectious disease in past 14 days?: No Do you have a fever (greater than 100.4 F or 38 C)?: No Have you tested positive for COVID-19?: No Exposed to someone with COVID-19 in past 14 days?: No Do you have a sore throat?: No Do you have a cough?: No Do you have any weakness?: No Do you have any diarrhea?: No Are you experiencing any unusual bleeding?: No Do you have any muscle aches/pain?: No Do you have any abdominal pain?: No Are you experiencing loss of taste or smell?: No Other Medical History Have you received the Flu Vaccine for this season: No Have you received the Pneumonia Vaccine: Yes <Stephanie Espinoza (ED), ASSISTANT TECHNICIAN - Last Filed: 03/20/25 21:44> ROS Obtained: Yes Systems reviewed as appropriate & no additional complaints except as documented Constitutional Constitutional: Reports as per HPI Physical Exam <Stephanie Espinoza (ED), ASSISTANT TECHNICIAN - Last Filed: 03/20/25 21:44> General General appearance: alert, anxious and in distress Head Head exam: normocephalic Eye Eye exam: Present PERRL and EOMI ENT ENT exam: Present normal oropharynx and mucous membranes moist Neck Neck exam: Present full ROM and trachea midline Respiratory Respiratory exam: Present wheezes and other (Rhonchi) Cardiovascular Cardiovascular exam: Present regular rate, normal heart sounds, +S1 and +S2 Abdominal Exam Abdominal exam: Present soft, distention and normal bowel sounds Extremities Exam Extremities exam: Present full ROM, tenderness and edema Neurological Exam Neurological exam: Present alert and oriented X3 Skin Skin exam: Present warm and dry HEART Score <Stephanie Espinoza (ED), ASSISTANT TECHNICIAN - Last Filed: 03/20/25 21:44> HEART Score HEART Score assessment performed?: Yes History (anamnesis): Moderately suspicious ECG: Non-specific disturbance Age: >65 years Risk factors: Atherosclerosis history Troponin: </= normal limit HEART Score: 6 <Chance Pastrana JR, DO - Last Filed: 03/21/25 00:25> HEART Score HEART Score: 6 Critical Care <Stephanie Espinoza (ED), ASSISTANT TECHNICIAN - Last Filed: 03/20/25 21:44> Critical Care Time Critical Care Time: No Medical Decision Making <Stephanie Espinoza (ED), ASSISTANT TECHNICIAN - Last Filed: 03/20/25 21:44> Azael Inquiry Pt receiving controlled substance: No Azael was queried for this patient: No Vital Signs Vital Signs: 03/20/25 16:06 03/20/25 16:09 03/20/25 16:30 Temperature 98.1 F Temperature Source Oral Pulse Rate 80 77 Pulse Rate [Left Brachial] 81 Respiratory Rate 20 18 Blood Pressure 190/93 H 194/85 H Blood Pressure [Left Arm] 190/93 H Blood Pressure Mean [Left Arm] 125 Blood Pressure Source [Left Arm] Automatic Cuff Blood Pressure Position [Left Arm] Sitting 02 Sat by Pulse Oximetry 93 L 95 97 Oxygen Delivery Method Nasal Cannula Oxygen Flow Rate (LPM) 2 03/20/25 16:54 03/20/25 17:00 03/20/25 19:56 Temperature 98.9 F Temperature Source Oral Pulse Rate 72 84 Pulse Rate [Left Brachial] Respiratory Rate 18 19 Blood Pressure 181/83 H 175/79 H Blood Pressure [Left Arm] Blood Pressure Mean [Left Arm] Blood Pressure Source [Left Arm] Blood Pressure Position [Left Arm] 02 Sat by Pulse Oximetry 95 Oxygen Delivery Method Nasal Cannula BiPAP Oxygen Flow Rate (LPM) Lab Data Labs: Lab Results 03/20/25 16:10: WBC 5.9, RBC 3.73 L, Hgb 10.3 L, Hct 34.9 L, MCV 93.6, MCH 27.6, MCHC 29.5 L, RDW 13.7, Plt Count 266, MPV 8.7, Neut % (Auto) 54.9, Lymph % (Auto) 33.6, Dickson % (Auto) 8.1, Eos % (Auto) 2.7, Baso % (Auto) 0.5, Neut # (Auto) 3.2, Lymph # (Auto) 2.0, Dickson # (Auto) 0.5, Eos # (Auto) 0.2, Baso # (Auto) 0.0, D-Dimer 0.67 H, Sodium 136, Potassium 4.6, Chloride 91 L, Carbon Dioxide 37 H, Anion Gap 12.6, BUN 12, Creatinine 0.70, Estimated Creat Clear 51, Estimated GFR 83, Est GFR ( Amer) 100, Glucose 102 H, Calcium 11.3 H, M agnesium 1.4 L, Total Bilirubin 0.3, AST 24, ALT 12, Alkaline Phosphatase 58, Troponin I < 0.01, NT-Pro-B Natriuret Pep 4280 H, Total Protein 7.4, Albumin 4.3, Globulin 3.1, Albumin/Globulin Ratio 1.4, Lipase 77 03/20/25 16:13: VBG pH 7.30 L, VBG pCO2 68.1 H, VBG pO2 35.6, VBG HCO3 33.1 H, V BG Total CO2 35.1 H, VBG O2 Saturation 61.6, VBG Base Excess 6.7 H, VBG Lactic Acid 1.7 03/20/25 16:18: SARS-CoV-2 (PCR) Not detected, Influenza A Untype (PCR) Not detected, Influenza Type B (PCR) Not detected 03/20/25 19:09: Troponin I < 0.01 03/20/25 16:10 03/20/25 16:10 Response Orders (Tests/Meds): ED MEDICATIONS Generic Name Dose Route Start Last Admin Trade Name Freq PRN Reason Stop Dose Admin Acetaminophen 650 mg 03/20/25 18:48 Acetaminophen 325mg Tab PO 04/19/25 18:47 Q4HP PRN Fever or Mild Pain (1-3) Hydrocodone Bitart/Acetaminophen 1 tab 03/20/25 21:42 Hydrocodone 10mg/Apap 325mg Tab PO 04/19/25 21:41 Q6HP PRN Moderate to Severe Pain (4-10) Albuterol/Ipratropium 3 ml 03/21/25 00:00 03/20/25 23:29 Ipratropium/Albuterol 3 Ml Neb IH 04/20/25 00:00 3 ml Q6RT VICENTE Administration Alprazolam 1 mg 03/20/25 23:15 03/20/25 23:05 Alprazolam 1mg Tablet PO 04/19/25 23:14 1 mg BID VICENTE Administration Apixaban 5 mg 03/20/25 21:45 03/20/25 23:05 Apixaban 5mg Tablet PO 04/19/25 21:44 5 mg BID VICENTE Administration Budesonide 0.5 mg 03/21/25 06:00 Budesonide 0.5mg/2ml Neb IH 04/20/25 05:59 BIDRT VICENTE Bumetanide 1 mg 03/21/25 09:00 Bumetanide 1mg/4ml Vial IV 04/20/25 08:59 BIDL VICENTE Digoxin 125 mcg 03/21/25 09:00 Digoxin 0.125mg Tablet PO 04/20/25 08:59 DAILY [facility] Fluticasone/Umeclidinium/Vilanterol 1 puff 03/21/25 09:00 Fluticasone/Umeclidin/Vilanter 100/62.5/25mcg Inhaler IH 04/20/25 08:59 DAILY [facility] Gabapentin 800 mg 03/21/25 09:00 Gabapentin 800mg Tablet PO 04/20/25 08:59 TID [facility] Levofloxacin/Dextrose 750 mg in 150 mls @ 100 mls/hr 03/20/25 18:45 03/20/25 23:20 Levofloxacin 750mg/150ml Premix IV 03/30/25 18:44 Infused Q24H [facility] Infusion Magnesium Sulfate 2 gm in 50 mls @ 50 mls/hr 03/20/25 23:01 03/20/25 23:21 Magnesium Sulfate 2gm/50ml Premix IV 03/21/25 00:00 50 mls/hr ONCE ONE Administration Irbesartan 150 mg 03/21/25 09:00 Irbesartan 150mg Tab PO 04/20/25 08:59 DAILY [facility] Irbesartan 37.5 mg 03/20/25 21:05 03/20/25 21:50 Irbesartan 75mg Tablet PO 03/20/25 21:06 37.5 mg ONCE ONE Administration Metoprolol Succinate 100 mg 03/20/25 21:05 03/20/25 21:50 Metoprolol Succinate Xl 100mg Tablet PO 04/19/25 21:04 100 mg HS VICENTE Administration Montelukast Sodium 10 mg 03/21/25 18:00 Montelukast Sodium 10mg Tab PO 04/20/25 17:59 PM VICENTE Mupirocin 1 gm 03/21/25 09:00 Mupirocin 2% Ointment 22gm Tube TP 04/20/25 08:59 BID VICENTE Non-Formulary Medication 1 each 03/20/25 21:04 Nicotine Gum PO 04/19/25 21:03 Q2HP PRN Nicotine Cravings Ondansetron HCl 4 mg 03/20/25 18:48 Ondansetron 4mg/2ml Vial IV 04/19/25 18:47 Q8HP PRN Nausea Potassium Chloride 20 meq 03/21/25 09:00 Potassium Chloride 20meq Tab PO 04/20/25 08:59 BID VICENTE Discontinued Medications Generic Name Dose Route Start Last Admin Trade Name Freq PRN Reason Stop Dose Admin Albuterol/Ipratropium 9 ml 03/20/25 16:12 03/20/25 16:46 Ipratropium/Albuterol 3 Ml Neb IH 03/20/25 16:13 9 ml ONCE ONE Administration Dexamethasone Sodium Phosphate 8 mg 03/20/25 16:12 03/20/25 16:38 Dexamethasone 4mg/Ml 1ml Vial IV 03/20/25 16:13 8 mg ONCE ONE Administration Furosemide 80 mg 03/20/25 17:16 03/20/25 17:42 Furosemide 100mg/10ml Vial IV 03/20/25 17:17 80 mg ONCE ONE Administration Magnesium Sulfate 2 gm in 50 mls @ 50 mls/hr 03/20/25 16:12 03/20/25 18:01 Magnesium Sulfate 2gm/50ml Premix IV 03/20/25 17:11 Infused ONCE ONE Infusion Iopamidol 80 ml 03/20/25 17:31 03/20/25 17:32 Iopamidol-370 (76%);100ml Bottle IV 03/20/25 17:32 80 ml ONCE ONE Administration Sodium Chloride 10 ml 03/20/25 17:31 03/20/25 17:32 Sodium Chloride 0.9% 10ml Syr (Rad Only) IV 03/20/25 17:32 10 ml ONCE ONE Administration Sodium Chloride 50 ml 03/20/25 17:31 03/20/25 17:32 0.9 % Sodium Chloride 50 Ml Vial IV 03/20/25 17:32 50 ml ONCE ONE Administration ORDERS Category Date Time Status CTA Chest [CT angio chest PE protocol] Stat Cat Scan 03/20/25 17:18 Completed Pulmonology Consult [Consult to Pulmonology] [CONS] Cons 03/22/25 07:05 Active Routine Chest XR -- portable [XR chest portable] Stat Exams 03/20/25 16:12 Completed BNP [NT Pro Brain Natriuretic Pep.] Stat Lab 03/20/25 16:10 Completed CBC [Complete Blood Count Auto Diff] Stat Lab 03/20/25 16:10 Completed Complete Blood Count Auto Diff AMLAB Lab 03/21/25 06:00 Ordered Complete Blood Count Auto Diff AMLAB Lab 03/22/25 06:00 Ordered Complete Blood Count Auto Diff AMLAB Lab 03/23/25 06:00 Ordered Complete Blood Count Auto Diff AMLAB Lab 03/24/25 06:00 Ordered Complete Blood Count Auto Diff AMLAB Lab 03/25/25 06:00 Ordered Comprehensive Metabolic Panel AMLAB Lab 03/21/25 06:00 Ordered Comprehensive Metabolic Panel AMLAB Lab 03/22/25 06:00 Ordered Comprehensive Metabolic Panel AMLAB Lab 03/23/25 06:00 Ordered Comprehensive Metabolic Panel AMLAB Lab 03/24/25 06:00 Ordered Comprehensive Metabolic Panel AMLAB Lab 03/25/25 06:00 Ordered Comprehensive Metabolic Panel Stat Lab 03/20/25 16:10 Completed D-Dimer Stat Lab 03/20/25 16:10 Completed Lipase Stat Lab 03/20/25 16:10 Completed Magnesium AMLAB Lab 03/21/25 06:00 Ordered Magnesium AMLAB Lab 03/22/25 06:00 Ordered Magnesium AMLAB Lab 03/23/25 06:00 Ordered Magnesium AMLAB Lab 03/24/25 06:00 Ordered Magnesium AMLAB Lab 03/25/25 06:00 Ordered Magnesium Stat Lab 03/20/25 16:10 Completed Rapid PCR Covid and Flu A/B Stat Lab 03/20/25 16:18 Completed Trop I [Troponin I] Stat Lab 03/20/25 16:10 Completed Troponin I Q3H Lab 03/20/25 19:09 Completed Troponin I Q3H Lab 03/20/25 22:42 Completed Venous Blood Gas Stat RT 03/20/25 16:13 Completed MDM Narrative Medical Decision Narrative: patient is a 70-year-old female presenting to the emergency department for evaluation of shortness of breath. Patient is hemodynamically stable and nontoxic-appearing upon arrival, afebrile. Differential diagnosis includes respiratory failure, hypertension, JOSÉ MIGUEL, sepsis, among others. Workup will be conducted with hematologic labs, specific imaging. Initial inventions include analgesics, antibiotics. Initial workup reviewed by me hematologic labs are remarkable for elevated dimer which cannot be ruled out by years criteria will need to do a CTA. pH was 7.30 and pCO2 was 68.1 I placed patient on BiPAP. Discussed case with Dr. Pastrana. Talked to Dr. Butt about admission. Patient will be admitted to stepdown unit for COPD exacerbation, pneumonia, pleural effusion, respiratory failure. <Chance Pastrana JR, DO - Last Filed: 03/21/25 00:25> Vital Signs Vital Signs: 03/20/25 16:06 03/20/25 16:09 03/20/25 16:30 Temperature 98.1 F Temperature Source Oral Pulse Rate 80 77 Pulse Rate [Left Brachial] 81 Respiratory Rate 20 18 Blood Pressure 190/93 H 194/85 H Blood Pressure [Left Arm] 190/93 H Blood Pressure Mean [Left Arm] 125 Blood Pressure Source [Left Arm] Automatic Cuff Blood Pressure Position [Left Arm] Sitting 02 Sat by Pulse Oximetry 93 L 95 97 Oxygen Delivery Method Nasal Cannula Oxygen Flow Rate (LPM) 2 03/20/25 16:54 03/20/25 17:00 03/20/25 19:56 Temperature 98.9 F Temperature Source Oral Pulse Rate 72 84 Pulse Rate [Left Brachial] Respiratory Rate 18 19 Blood Pressure 181/83 H 175/79 H Blood Pressure [Left Arm] Blood Pressure Mean [Left Arm] Blood Pressure Source [Left Arm] Blood Pressure Position [Left Arm] 02 Sat by Pulse Oximetry 95 Oxygen Delivery Method Nasal Cannula BiPAP Oxygen Flow Rate (LPM) Lab Data Labs: Lab Results 03/20/25 16:10: WBC 5.9, RBC 3.73 L, Hgb 10.3 L, Hct 34.9 L, MCV 93.6, MCH 27.6, MCHC 29.5 L, RDW 13.7, Plt Count 266, MPV 8.7, Neut % (Auto) 54.9, Lymph % (Auto) 33.6, Dickson % (Auto) 8.1, Eos % (Auto) 2.7, Baso % (Auto) 0.5, Neut # (Auto) 3.2, Lymph # (Auto) 2.0, Dickson # (Auto) 0.5, Eos # (Auto) 0.2, Baso # (Auto) 0.0, D-Dimer 0.67 H, Sodium 136, Potassium 4.6, Chloride 91 L, Carbon Dioxide 37 H, Anion Gap 12.6, BUN 12, Creatinine 0.70, Estimated Creat Clear 51, Estimated GFR 83, Est GFR ( Amer) 100, Glucose 102 H, Calcium 11.3 H, M agnesium 1.4 L, Total Bilirubin 0.3, AST 24, ALT 12, Alkaline Phosphatase 58, Troponin I < 0.01, NT-Pro-B Natriuret Pep 4280 H, Total Protein 7.4, Albumin 4.3, Globulin 3.1, Albumin/Globulin Ratio 1.4, Lipase 77 03/20/25 16:13: VBG pH 7.30 L, VBG pCO2 68.1 H, VBG pO2 35.6, VBG HCO3 33.1 H, V BG Total CO2 35.1 H, VBG O2 Saturation 61.6, VBG Base Excess 6.7 H, VBG Lactic Acid 1.7 03/20/25 16:18: SARS-CoV-2 (PCR) Not detected, Influenza A Untype (PCR) Not detected, Influenza Type B (PCR) Not detected 03/20/25 19:09: Troponin I < 0.01 Response Orders (Tests/Meds): ED MEDICATIONS Generic Name Dose Route Start Last Admin Trade Name Freq PRN Reason Stop Dose Admin Acetaminophen 650 mg 03/20/25 18:48 Acetaminophen 325mg Tab PO 04/19/25 18:47 Q4HP PRN Fever or Mild Pain (1-3) Hydrocodone Bitart/Acetaminophen 1 tab 03/20/25 21:42 Hydrocodone 10mg/Apap 325mg Tab PO 04/19/25 21:41 Q6HP PRN Moderate to Severe Pain (4-10) Albuterol/Ipratropium 3 ml 03/21/25 00:00 03/20/25 23:29 Ipratropium/Albuterol 3 Ml Neb IH 04/20/25 00:00 3 ml Q6RT VICENTE Administration Alprazolam 1 mg 03/20/25 23:15 03/20/25 23:05 Alprazolam 1mg Tablet PO 04/19/25 23:14 1 mg BID VICENTE Administration Apixaban 5 mg 03/20/25 21:45 03/20/25 23:05 Apixaban 5mg Tablet PO 04/19/25 21:44 5 mg BID VICENTE Administration Budesonide 0.5 mg 03/21/25 06:00 Budesonide 0.5mg/2ml Neb IH 04/20/25 05:59 BIDRT VICENTE Bumetanide 1 mg 03/21/25 09:00 Bumetanide 1mg/4ml Vial IV 04/20/25 08:59 BIDL VICENTE Digoxin 125 mcg 03/21/25 09:00 Digoxin 0.125mg Tablet PO 04/20/25 08:59 DAILY [facility] Fluticasone/Umeclidinium/Vilanterol 1 puff 03/21/25 09:00 Fluticasone/Umeclidin/Vilanter 100/62.5/25mcg Inhaler IH 04/20/25 08:59 DAILY [facility] Gabapentin 800 mg 03/21/25 09:00 Gabapentin 800mg Tablet PO 04/20/25 08:59 TID VICENTE Levofloxacin/Dextrose 750 mg in 150 mls @ 100 mls/hr 03/20/25 18:45 03/20/25 23:20 Levofloxacin 750mg/150ml Premix IV 03/30/25 18:44 Infused Q24H [facility] Infusion Magnesium Sulfate 2 gm in 50 mls @ 50 mls/hr 03/20/25 23:01 03/20/25 23:21 Magnesium Sulfate 2gm/50ml Premix IV 03/21/25 00:00 50 mls/hr ONCE ONE Administration Irbesartan 150 mg 03/21/25 09:00 Irbesartan 150mg Tab PO 04/20/25 08:59 DAILY [facility] Irbesartan 37.5 mg 03/20/25 21:05 03/20/25 21:50 Irbesartan 75mg Tablet PO 03/20/25 21:06 37.5 mg ONCE ONE Administration Metoprolol Succinate 100 mg 03/20/25 21:05 03/20/25 21:50 Metoprolol Succinate Xl 100mg Tablet PO 04/19/25 21:04 100 mg HS VICENTE Administration Montelukast Sodium 10 mg 03/21/25 18:00 Montelukast Sodium 10mg Tab PO 04/20/25 17:59 PM [facility] Mupirocin 1 gm 03/21/25 09:00 Mupirocin 2% Ointment 22gm Tube TP 04/20/25 08:59 BID VICENTE Non-Formulary Medication 1 each 03/20/25 21:04 Nicotine Gum PO 04/19/25 21:03 Q2HP PRN Nicotine Cravings Ondansetron HCl 4 mg 03/20/25 18:48 Ondansetron 4mg/2ml Vial IV 04/19/25 18:47 Q8HP PRN Nausea Potassium Chloride 20 meq 03/21/25 09:00 Potassium Chloride 20meq Tab PO 04/20/25 08:59 BID VICENTE Discontinued Medications Generic Name Dose Route Start Last Admin Trade Name Freq PRN Reason Stop Dose Admin Albuterol/Ipratropium 9 ml 03/20/25 16:12 03/20/25 16:46 Ipratropium/Albuterol 3 Ml Neb IH 03/20/25 16:13 9 ml ONCE ONE Administration Dexamethasone Sodium Phosphate 8 mg 03/20/25 16:12 03/20/25 16:38 Dexamethasone 4mg/Ml 1ml Vial IV 03/20/25 16:13 8 mg ONCE ONE Administration Furosemide 80 mg 03/20/25 17:16 03/20/25 17:42 Furosemide 100mg/10ml Vial IV 03/20/25 17:17 80 mg ONCE ONE Administration Magnesium Sulfate 2 gm in 50 mls @ 50 mls/hr 03/20/25 16:12 03/20/25 18:01 Magnesium Sulfate 2gm/50ml Premix IV 03/20/25 17:11 Infused ONCE ONE Infusion Iopamidol 80 ml 03/20/25 17:31 03/20/25 17:32 Iopamidol-370 (76%);100ml Bottle IV 03/20/25 17:32 80 ml ONCE ONE Administration Sodium Chloride 10 ml 03/20/25 17:31 03/20/25 17:32 Sodium Chloride 0.9% 10ml Syr (Rad Only) IV 03/20/25 17:32 10 ml ONCE ONE Administration Sodium Chloride 50 ml 03/20/25 17:31 03/20/25 17:32 0.9 % Sodium Chloride 50 Ml Vial IV 03/20/25 17:32 50 ml ONCE ONE Administration ORDERS Category Date Time Status CTA Chest [CT angio chest PE protocol] Stat Cat Scan 03/20/25 17:18 Completed Pulmonology Consult [Consult to Pulmonology] [CONS] Cons 03/22/25 07:05 Active Routine Chest XR -- portable [XR chest portable] Stat Exams 03/20/25 16:12 Completed BNP [NT Pro Brain Natriuretic Pep.] Stat Lab 03/20/25 16:10 Completed CBC [Complete Blood Count Auto Diff] Stat Lab 03/20/25 16:10 Completed Complete Blood Count Auto Diff AMLAB Lab 03/21/25 06:00 Ordered Complete Blood Count Auto Diff AMLAB Lab 03/22/25 06:00 Ordered Complete Blood Count Auto Diff AMLAB Lab 03/23/25 06:00 Ordered Complete Blood Count Auto Diff AMLAB Lab 03/24/25 06:00 Ordered Complete Blood Count Auto Diff AMLAB Lab 03/25/25 06:00 Ordered Comprehensive Metabolic Panel AMLAB Lab 03/21/25 06:00 Ordered Comprehensive Metabolic Panel AMLAB Lab 03/22/25 06:00 Ordered Comprehensive Metabolic Panel AMLAB Lab 03/23/25 06:00 Ordered Comprehensive Metabolic Panel AMLAB Lab 03/24/25 06:00 Ordered Comprehensive Metabolic Panel AMLAB Lab 03/25/25 06:00 Ordered Comprehensive Metabolic Panel Stat Lab 03/20/25 16:10 Completed D-Dimer Stat Lab 03/20/25 16:10 Completed Lipase Stat Lab 03/20/25 16:10 Completed Magnesium AMLAB Lab 03/21/25 06:00 Ordered Magnesium AMLAB Lab 03/22/25 06:00 Ordered Magnesium AMLAB Lab 03/23/25 06:00 Ordered Magnesium AMLAB Lab 03/24/25 06:00 Ordered Magnesium AMLAB Lab 03/25/25 06:00 Ordered Magnesium Stat Lab 03/20/25 16:10 Completed Rapid PCR Covid and Flu A/B Stat Lab 03/20/25 16:18 Completed Trop I [Troponin I] Stat Lab 03/20/25 16:10 Completed Troponin I Q3H Lab 03/20/25 19:09 Completed Troponin I Q3H Lab 03/20/25 22:42 Completed Venous Blood Gas Stat RT 03/20/25 16:13 Completed MDM Narrative Medical Decision Narrative: patient is a 70-year-old female presenting to the emergency department for evaluation of shortness of breath. Patient is hemodynamically stable and nontoxic-appearing upon arrival, afebrile. Differential diagnosis includes respiratory failure, hypertension, JOSÉ MIGUEL, sepsis, among others. Workup will be conducted with hematologic labs, specific imaging. Initial inventions include analgesics, antibiotics. Initial workup reviewed by me hematologic labs are remarkable for elevated dimer which cannot be ruled out by years criteria will need to do a CTA. pH was 7.30 and pCO2 was 68.1 I placed patient on BiPAP. Discussed case with Dr. Pastrana. Talked to Dr. Butt about admission. Patient will be admitted to stepdown unit for COPD exacerbation, pneumonia, pleural effusion, respiratory failure. I was consulted by the ASHOK, and we discussed the complexity of problems being addressed. I approve the treatment and management plan for this patient's care in the Emergency Department, thus performing a substantial portion of the medical decision making
--- OUTSIDE RECORDS SUMMARY | 2025-03-20 16:15 | XMS_ITS | Encounter Summary ---
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 No 02/07/2025 Do you want help [...] on filedocumented in this encounter Care Teams Long Chain Dyeing Machine Operator Relationship Specialty Start Date End Date [facility], Provider Not In The System, [place] [address] PCP - General 02/06/25 documented as of this encounter
--- OUTSIDE RECORDS SUMMARY | 2025-03-20 16:16 | XMS_ITS | Clinical Summary ---
Author Organization Healthcare Address [address] [place] [address] Care Team Providers Care Terrazzo Laborer Name Role Phone Rajat Navarro MD Primary Care Provider [phone] Social History Tobacco Use Types Packs/Day Years [...] 2005 UKY-Zoster Vaccines (1 of 2) 2005 [id number] Vaccine ( - 2024- season) 2025 05/24/2021, [...] this topic Insurance [employer] MEDICARE Care Teams Terrazzo Laborer Relationship Specialty Start Date End Date Rajat Navarro MD [address] [place] [address] [address]1 [address] [place] [id number] PCP - General 07/15/20
--- OUTSIDE RECORDS SUMMARY | 2025-03-20 16:16 | XMS_ITS | Referral Summary ---
Author Organization [employer] ([place], [place], [place], [place]) Address [address] [place] [address] Care Team Providers Care Crusher Tender Name Role Phone [facility], Provider Not In The System MD Primary Care Provider Unavailable Encounters Date Type Department Care Team Description 02/06/2025 5:35 PM EDT - 02/09/2025 12:35 PM EDT Hospital Encounter [facility] Cardiac Telemetry [address] [place] [address] Laura Gibson DO Turley, David, [...] EDT - 02/06/2025 7:39 PM EDT Surgery [facility] Endoscopy [address] [place] [address] Marisa Garcia MD ESOPHAGOGASTRODUODENOSCOPY (EGD) [...] Do you speak a language other than Nigerien at [facility]? No [...] on file Medical Devices Implanted Type Area Risk Management Internship Device Identifier Shelf Expiration Date Model / Serial / Lot Duraclip Sm 16mm [id number] - [id number] Implanted:Qty: 3 on 02/06/2025 by Marisa Garcia MD at [facility] N/A: Esophagus CONMED 04/28/2027 [id number] / / [id number] Procedures Procedure Name Priority Date/Time Associated Diagnosis [...] - 15.7 GM/DL 02/08/2025 3:55 PM EDT [facility] Hematocrit 25.3(L) 34.1 - 44.9 % 02/08/2025 3:55 PM EDT [facility] Blood Venipuncture / Unknown 02/08/2025 3:46 PM EDT 02/08/2025 3:50 PM EDT us Nara Aguilar [facility] LAB BLOOD ORDERABLES Fi nal Result [facility] [address] [phone] * (ABNORMAL) CBC with automated diff (02/08/2025 4:41 AM EDT) Only the most recent of2 resultswithin the time period is included. WBC 7.7 4.0 - 10.0 K/ L 02/08/2025 6:12 AM EDT [facility] RBC 2.75(L) 3.93 - 5.22 M/ L 02/08/2025 6:12 AM EDT [facility] Hemoglobin 8.1(L) 11.2 - 15.7 GM/DL 02/08/2025 6:12 AM EDT [facility] Hematocrit 25.8(L) 34.1 - 44.9 % 02/08/2025 6:12 AM EDT [facility] MCV 94 79 - 95 fL 02/08/2025 6:12 AM EDT [facility] MCH 29.5 25.6 - 32.2 pg 02/08/2025 6:12 AM EDT [facility] MCHC 31.4(L) 32.2 - 35.5 GM/DL 02/08/2025 6:12 AM EDT [facility] RDW 14.2 11.7 - 14.4 % 02/08/2025 6:12 AM EDT [facility] Platelets 315 140 - 375 K/CU MM 02/08/2025 6:12 AM EDT [facility] MPV 9.0(L) 9.4 - 12.3 fL 02/08/2025 6:12 AM EDT [facility] NRBC Absolute <0.01 0 - 0.012 K/ul 02/08/2025 6:12 AM EDT [facility] Blood Venipuncture / Unknown 02/08/2025 4:41 AM EDT 02/08/2025 5:01 AM EDT Narrative [facility] - 02/08/2025 6:12 AM EDT [...] Atypical Lymph flag noted us Nara Aguilar [facility] LAB BLOOD ORDERABLES Fi nal Result [facility] [address] [phone] * (ABNORMAL) Manual Differential (02/08/2025 4:41 AM EDT) Total Counted 100 02/08/2025 9:00 AM EDT [facility] % Neutros (manual) 70(H) 50 - 65 % 02/08/2025 9:00 AM EDT [facility] % Bands (manual) 2 % 02/08/2025 9:00 AM EDT [facility] % Lymphs (manual) 23(L) 24 - 44 % 02/08/2025 9:00 AM EDT [facility] % Monos (manual) 1(L) 4 - 5 % 02/08/2025 9:00 AM EDT [facility] % Eos (manual) 4(H) 0 - 3 % 02/08/2025 9:00 AM EDT [facility] RBC Morphology abnormal(A) Normal 9:00 AM EDT [facility] Platelet Estimate Adequate Adequate 02/08/2025 9:00 AM EDT [facility] Hypochromia 1+ 02/08/2025 9:00 AM EDT [facility] Ovalocytes 1+ 02/08/2025 9:00 AM EDT [facility] ANC# 5.54 K/ L 02/08/2025 9:00 AM EDT [facility] Blood Venipuncture / Unknown 02/08/2025 4:41 AM EDT 02/08/2025 5:01 AM EDT Nara Aguilar [facility] LAB BLOOD ORDERABLES Fi nal Result Performing Organization Address City/[facility] Co de Phone Number [facility] [address] [phone] * Magnesium (02/08/2025 4:41 AM EDT) Only the most recent of2 resultswithin the time period is included. Magnesium 1.6 1.6 - 2.6 mg/dL 02/08/2025 5:54 AM EDT [facility] Blood Venipuncture / Unknown 02/08/2025 4:41 AM EDT 02/08/2025 5:05 AM EDT Nara Goinsmeaghanadelina [facility] LAB BLOOD ORDERABLES Fi nal Result Performing Organization Address City/[facility] Co de Phone Number [facility] [address] [phone] * (ABNORMAL) Comprehensive metabolic panel (02/08/2025 4:41 AM EDT) Only the most recent of2 resultswithin the time period is included. Sodium 135(L) 136 - 145 meq/L 02/08/2025 5:59 AM EDT [facility] Potassium 3.7 3.4 - 5.1 meq/L 02/08/2025 5:59 AM EDT [facility] Chloride 98 98 - 112 meq/L 02/08/2025 5:59 AM EDT [facility] CO2 29 22 - 29 meq/L 02/08/2025 5:59 AM EDT [facility] Calcium 9.1 8.4 - 10.2 mg/dL 02/08/2025 5:59 AM EDT [facility] Glucose 85 82 - 115 mg/dL 02/08/2025 5:59 AM [facility] BUN 8.3(L) 9.8 - 20.1 mg/dL 02/08/2025 5:59 AM [facility] Creatinine 0.77 0.57 - 1.11 mg/dL 02/08/2025 5:59 AM [facility] BUN/Creatinine 11 8 - 20 02/08/2025 5:59 AM [facility] eGFR (mL/min/1.73m2) 84 >=60 mL/min/1. 73m2 02/08/2025 5:59 AM [facility] Albumin 2.3(L) 3.5 - 5.0 g/dL 02/08/2025 5:59 AM [facility] Alkaline Phosphatase 38(L) 40 - 150 U/L 02/08/2025 5:59 AM [facility] ALT <7 <=34 U/L 02/08/2025 5:59 AM [facility] Comment: ALT2 reagent used for testing does not contain P5P supplementation and therefore may miss ALT elevations in patients with B6 deficiency. This population may be as high as 10% in the [place], with risk factors including malabsorption, drug interactions, and alcoholic hepatitis. AST 11 11 - 34 U/L 02/08/2025 5:59 AM [facility] Comment: AST2 reagent used for testing does not contain P5P supplementation and therefore may miss AST elevations in patients with B6 deficiency. This population may be as high as 10% in the [place], with risk factors including malabsorption, drug interactions, and alcoholic hepatitis. Total Bilirubin 0.2 0.2 - 1.2 mg/dL 02/08/2025 5:59 AM [facility] Protein, Total 5.0(L) 6.4 - 8.3 g/dL 02/08/2025 5:59 AM [facility] Globulin 2.7 2.5 - 4.1 g/dL 02/08/2025 5:59 AM [facility] Anion Gap 12 4 - 12 02/08/2025 5:59 AM [facility] A/G Ratio 0.9 0.7 - 1.9 02/08/2025 5:59 AM EDT [facility] Osmolality Calc 267.8 mOsm/kg 5:59 AM EDT [facility] Blood Venipuncture / Unknown 02/08/2025 4:41 AM EDT 02/08/2025 5:05 AM EDT us Nara Aguilar [facility] LAB BLOOD ORDERABLES Fi nal Result [facility] [address] [phone] * (ABNORMAL) CBC - Hemogram (SJ-BKR) (02/07/2025 5:18 AM EDT) WBC 11.6(H) 4.0 - 10.0 K/ L 02/07/2025 6:04 AM EDT [facility] RBC 3.14(L) 3.93 - 5.22 M/ L 02/07/2025 6:04 AM EDT [facility] Hemoglobin 9.1(L) 11.2 - 15.7 GM/DL 02/07/2025 6:04 AM EDT [facility] Hematocrit 30.4(L) 34.1 - 44.9 % 02/07/2025 6:04 AM EDT [facility] MCV 97(H) 79 - 95 fL 02/07/2025 6:04 AM EDT [facility] MCH 29.0 25.6 - 32.2 pg 02/07/2025 6:04 AM EDT [facility] MCHC 29.9(L) 32.2 - 35.5 GM/DL 02/07/2025 6:04 AM EDT [facility] RDW 14.5(H) 11.7 - 14.4 % 02/07/2025 6:04 AM EDT [facility] Platelets 340 140 - 375 K/CU MM 02/07/2025 6:04 AM EDT [facility] MPV 9.1(L) 9.4 - 12.3 fL 02/07/2025 6:04 AM EDT [facility] Blood Venipuncture / Unknown 02/07/2025 5:18 AM EDT 02/07/2025 5:58 AM EDT us Von Sloan PA-C LAB BLOOD ORDERABLES Final Res ult [facility] [address] [phone] * (ABNORMAL) Basic Metabolic Panel (02/07/2025 5:18 AM EDT) Sodium 136 136 - 145 meq/L 02/07/2025 6:20 AM EDT [facility] Potassium 4.9 3.4 - 5.1 meq/L 02/07/2025 6:20 AM EDT [facility] CO2 29 22 - 29 meq/L 02/07/2025 6:20 AM EDT [facility] Chloride 99 98 - 112 meq/L 02/07/2025 6:20 AM EDT [facility] Glucose 85 82 - 115 mg/dL 02/07/2025 6:20 AM EDT [facility] BUN 13.0 9.8 - 20.1 mg/dL 02/07/2025 6:20 AM EDT [facility] Creatinine 0.84 0.57 - 1.11 mg/dL 02/07/2025 6:20 AM EDT [facility] BUN/Creatinine 15 8 - 20 02/07/2025 6:20 AM EDT [facility] Calcium 10.0 8.4 - 10.2 mg/dL 02/07/2025 6:20 AM EDT [facility] Anion Gap 13(H) 4 - 12 02/07/2025 6:20 AM EDT [facility] eGFR (mL/min/1.73m2) 75 >=60 mL/min/1.7 3m2 02/07/2025 6:20 AM EDT [facility] Osmolality Calc 271.3 mOsm/kg 6:20 AM EDT [facility] Blood Venipuncture / Unknown 02/07/2025 5:18 AM EDT 02/07/2025 5:59 AM EDT us Von Sloan PA-C LAB BLOOD ORDERABLES Final Res ult [facility] [address] [place] [address], [facility] [phone] * CTA abdomen & pelvis (02/06/2025 7:19 [...] [place]. Transcribed by Gareth Meza. Laura Arthur [facility] ORDERABLES Final Result * CTA chest [...] Transcribed by Gareth Meza. Laura Gibson DO [facility] ORDERABLES Final Result * Type and Screen (02/06/2025 6:23 PM EDT) ABO/Rh O Positive 02/06/2025 6:05 PM EDT [facility] ([place]) Antibody Screen Negative 02/06/2025 6:05 PM EDT [facility] ([place]) HISTCHK HIST CHECK PERFORMED 02/06/2025 6:05 PM EDT [facility] ([place]) Blood Venipuncture / Unknown 02/06/2025 6:23 PM EDT 02/06/2025 7:04 PM EDT Laura Gibson DO [facility] BLOOD BANK TEST ORDERABLES Final Result [facility] ([place]) [address] [place] [address], [facility] [phone] * High Sensitivity Troponin I (02/06/2025 6:23 PM EDT) Troponin I High Sensitivity (pg/mL) 12.2 <=14 pg/mL 02/06/2025 7:29 PM EDT [facility] Blood Venipuncture / Unknown 02/06/2025 6:23 PM EDT 02/06/2025 7:04 PM EDT Narrative [facility] - 02/06/2025 7:29 PM EDT Applicable to [facility] only. Effective October 06 the lab will begin using a new chemistry analyzer. HsTroponin methodology, reference ranges and critical values have changed. [facility] LAB BLOOD ORDERABLES Final Resu lt Performing Organization Address City/[facility]/ZIP Co de Phone Number [facility] [address] [phone] * (ABNORMAL) aPTT (02/06/2025 6:23 PM EDT) aPTT 32.8(H) 22.0 - 32.0 seconds 02/06/2025 7:21 PM EDT [facility] Blood Venipuncture / Unknown 02/06/2025 6:23 PM EDT 02/06/2025 7:04 PM EDT [facility] BLOOD ORDERABLES Final Resu lt [facility] [address] [phone] * Prothrombin time/INR (02/06/2025 6:23 PM EDT) Protime 10.4 9.0 - 12.0 seconds 02/06/2025 7:21 PM EDT [facility] INR 0.93 0.80 - 1.10 02/06/2025 7:21 PM EDT [facility] Comment: Recommended therapeutic ranges [...] ORDERABLES Final Resu lt Performing Organization Address City/[facility]/ZIP Co de Phone Number [facility] [address] [place] [address], [facility] [phone] * ECG 12 lead (02/06/2025 5:41 PM EDT) VENTRICULAR RATE EKG/MIN 67 BPM GE MUSE ATRIAL RATE (MCT) 69 BPM GE MUSE MO Interval 152 ms GE MUSE QRS-INTERVAL (MSEC) 80 ms GE MUSE QT Interval 386 ms GE MUSE QTC Interval 407 ms GE MUSE P [place] 57 degrees GE MUSE R AXIS (MCT) -71 degrees GE MUSE T Wave [place] 40 degrees GE MUSE [place] Diagnosis Age and gender specific ECG analysis Normal sinus rhythm Left axis deviation Abnormal ECG When compared with ECG of 06-OCT-2024 19:45, Significant changes have occurred Confirmed by Edvin ESPINOZA, [facility] [place] on 02/08/2025 5:26:45 PM GE MUSE 02/06/2025 5:41 PM EDT 02/08/2025 5:26 PM EDT Laura Gibson DO ECG ORDERABLES Final Result Performing Organization Address [facility] Co de Phone Number GE MUSE * EKG-SCANNED (02/06/2025) Narrative 02/06/2025 Ordered by an unspecified provider. Default Scanning Provider SCAN ORDERS Final Result from Last 3 Months Insurance [employer] MCR ADV Advance Directives For more information, please contact: [phone] * DNR - Limited Additional Intervention (Latest Code Status on File) Date Activated Date Inactivated Comments 02/06/2025 9:46 PM 02/09/2025 1:53 PM * Full Code Date Activated Date Inactivated Comments 10/06/2024 8:39 PM 10/09/2024 6:04 PM Care Teams Crusher Tender Relationship Specialty Start Date End Date [facility], Provider Not In The System, [place] [address] PCP - General 02/06/25
--- OUTSIDE RECORDS SUMMARY | 2025-03-20 16:16 | XMS_ITS | Clinical Summary ---
Author Organization [facility] Address [address] [place] [address] Phone Care Team Providers Care Dump Attendant Name Role Phone Unavailable Unavailable Conditions or Problems No information available. Medications No information available. Medications Administered No information available. Allergies, Adverse Reactions, Alerts No information available. Results No information available. Plan of Care No information available. Procedures No information available. Vital Signs No information available. Immunizations No information available. Advance Directives No information available.
--- OUTSIDE RECORDS SUMMARY | 2025-03-20 16:16 | XMS_ITS | Clinical Summary ---
Author Organization [facility] ([place] Address [address] [place] [address] Care Team Providers Care Hotel Clerk Name Role Phone [facility], Provider Not In The System MD [...] EDT - 02/06/2025 7:39 PM EDT Surgery [facility] Endoscopy [address] [place] [id number] Marisa Garcia MD ESOPHAGOGASTRODUODENOSCOPY (EGD) 02/06/2025 5:35 PM EDT - 02/09/2025 12:35 PM EDT Hospital Encounter [facility] Cardiac Telemetry [address] [place] [id number] Laura Gibson DO Turley, David, MD Hughes, [...] Do you speak a language other than [place]ian at [facility]? No 02/07/2025 Do you want help [...] 2025 05/30/2023 Medical Devices Implanted Type Area Vault Attendant Device Identifier Shelf Expiration Date Model / Serial / Lot Duraclip Sm 16mm [id number] - [id number] Implanted:Qty: 3 on 02/06/2025 by Marisa Garcia MD at [facility] N/A: Esophagus CONMED 04/28/2027 [id number] / / [id number] Procedures Procedure Name Priority Date/Time Associated Diagnosis [...] of3 resultswithin the time period is included. [facility] Hemoglobin 8.2(L) 11.2 - 15.7 GM/DL 02/08/2025 3:[address] [facility] Hematocrit 25.3(L) 34.1 - 44.9 % 02/08/2025 3:[address] [facility] Blood Venipuncture / Unknown 02/08/2025 3:46 PM EDT 02/08/2025 3:50 PM EDT Nara Aguilar APRN LAB BLOOD ORDERABLES Fi nal Result [facility] [address] [phone] * (ABNORMAL) CBC with automated diff (02/08/2025 4:41 AM EDT) Only the most recent of2 resultswithin the time period is included. Pathologist [facility] WBC 7.7 4.0 - 10.0 K/ L 02/08/2025 6:[address] [facility] RBC 2.75(L) 3.93 - 5.22 M/ L 02/08/2025 6:[address] [facility] Hemoglobin 8.1(L) 11.2 - 15.7 GM/DL 02/08/2025 6:[address] [facility] Hematocrit 25.8(L) 34.1 - 44.9 % 02/08/2025 6:[address] [facility] MCV 94 79 - 95 fL 02/08/2025 6:[address] [facility] MCH 29.5 25.6 - 32.2 pg 02/08/2025 6:[address] [facility] MCHC 31.4(L) 32.2 - 35.5 GM/DL 02/08/2025 6:[address] [facility] RDW 14.2 11.7 - 14.4 % 02/08/2025 6:[address] [facility] Platelets 315 140 - 375 K/CU MM 02/08/2025 6:[address] [facility] MPV 9.0(L) 9.4 - 12.3 fL 02/08/2025 6:[address] [facility] NRBC Absolute <0.01 0 - 0.012 K/ul 02/08/2025 6:[address] [facility] Blood Venipuncture / Unknown 02/08/2025 [...] APRN LAB BLOOD ORDERABLES Fi nal Result [facility] [address] [phone] * (ABNORMAL) Manual Differential (02/08/2025 4:41 AM EDT) Pathologist [facility] Total Counted 100 02/08/2025 9:[address] [facility] % Neutros (manual) 70(H) 50 - 65 % 02/08/2025 9:[address] [facility] % Bands (manual) 2 % 02/08/2025 9:[address] [facility] % Lymphs (manual) 23(L) 24 - 44 % 02/08/2025 9:[address] [facility] % Monos (manual) 1(L) 4 - 5 % 02/08/2025 9:[address] [facility] % Eos (manual) 4(H) 0 - 3 % 02/08/2025 9:[address] [facility] RBC Morphology abnormal(A) Normal 9:[address] [facility] Platelet Estimate Adequate Adequate 02/08/2025 9:[address] [facility] Hypochromia 1+ 02/08/2025 9:[address] [facility] Ovalocytes 1+ 02/08/2025 9:[address] [facility] ANC# 5.54 K/ L 02/08/2025 9:[address] [facility] Blood Venipuncture / Unknown 02/08/2025 4:41 AM EDT 02/08/2025 5:01 AM EDT Nara Aguilar SOFTWARE DATABASE ARCHITECT LAB BLOOD ORDERABLES Fi nal Result [facility] [address] [phone] * Magnesium (02/08/2025 4:41 AM EDT) Only the most recent of2 resultswithin the time period is included. Magnesium 1.6 1.6 - 2.6 mg/dL 02/08/2025 5:[address] [facility] Blood Venipuncture / Unknown 02/08/2025 4:41 AM EDT 02/08/2025 5:05 AM EDT us Nara Aguilar SOFTWARE DATABASE ARCHITECT LAB BLOOD ORDERABLES Fi nal Result [facility] [address] [place] [id number], [facility] [phone] * (ABNORMAL) Comprehensive metabolic panel (02/08/2025 4:41 AM EDT) Only the most recent of2 resultswithin the time period is included. Sodium 135(L) 136 - 145 meq/L 02/08/2025 5:[address] [facility] Potassium 3.7 3.4 - 5.1 meq/L 02/08/2025 5:[address] [facility] Chloride 98 98 - 112 meq/L 02/08/2025 5:[address] [facility] CO2 29 22 - 29 meq/L 02/08/2025 5:[address] [facility] Calcium 9.1 8.4 - 10.2 mg/dL 02/08/2025 5:[address] [facility] Glucose 85 82 - 115 mg/dL 02/08/2025 5:[address] [facility] BUN 8.3(L) 9.8 - 20.1 mg/dL 02/08/2025 5:[address] [facility] Creatinine 0.77 0.57 - 1.11 mg/dL 02/08/2025 5:[address] [facility] BUN/Creatinine 11 8 - 20 02/08/2025 5:[address] [facility] eGFR (mL/min/1.73m2) 84 >=60 mL/min/1. 73m2 02/08/2025 5:[address] [facility] Albumin 2.3(L) 3.5 - 5.0 g/dL 02/08/2025 5:[address] [facility] Alkaline Phosphatase 38(L) 40 - 150 U/L 02/08/2025 5:[address] [facility] ALT <7 <=34 U/L 02/08/2025 5:[address] [facility] Comment: ALT2 reagent used for testing does not contain P5P supplementation and therefore may miss ALT elevations in patients with B6 deficiency. This population may be as high as 10% in the [place], with risk factors including malabsorption, drug interactions, and alcoholic hepatitis. AST 11 11 - 34 U/L 02/08/2025 5:[address] [facility] Comment: AST2 reagent used for testing does not contain P5P supplementation and therefore may miss AST elevations in patients with B6 deficiency. This population may be as high as 10% in the [place], with risk factors including malabsorption, drug interactions, and alcoholic hepatitis. Total Bilirubin 0.2 0.2 - 1.2 mg/dL 02/08/2025 5:[address] [facility] Protein, Total 5.0(L) 6.4 - 8.3 g/dL 02/08/2025 5:[address] [facility] Globulin 2.7 2.5 - 4.1 g/dL 02/08/2025 5:[address] [facility] Anion Gap 12 4 - 12 02/08/2025 5:[address] [facility] A/G Ratio 0.9 0.7 - 1.9 02/08/2025 5:[address] [facility] Osmolality Calc 267.8 mOsm/kg 5:[address] [facility] Blood Venipuncture / Unknown 02/08/2025 4:41 AM EDT 02/08/2025 5:05 AM EDT Nara Aguilar SOFTWARE DATABASE ARCHITECT LAB BLOOD ORDERABLES Fi nal Result [facility] [address] [phone] * (ABNORMAL) CBC - Hemogram (SJ-BKR) (02/07/2025 5:18 AM EDT) WBC 11.6(H) 4.0 - 10.0 K/ L 02/07/2025 6:[address] [facility] RBC 3.14(L) 3.93 - 5.22 M/ L 02/07/2025 6:[address] [facility] Hemoglobin 9.1(L) 11.2 - 15.7 GM/DL 02/07/2025 6:[address] [facility] Hematocrit 30.4(L) 34.1 - 44.9 % 02/07/2025 6:[address] [facility] MCV 97(H) 79 - 95 fL 02/07/2025 6:[address] [facility] MCH 29.0 25.6 - 32.2 pg 02/07/2025 6:[address] [facility] MCHC 29.9(L) 32.2 - 35.5 GM/DL 02/07/2025 6:[address] [facility] RDW 14.5(H) 11.7 - 14.4 % 02/07/2025 6:[address] [facility] Platelets 340 140 - 375 K/CU MM 02/07/2025 6:[address] [facility] MPV 9.1(L) 9.4 - 12.3 fL 02/07/2025 6:[address] [facility] Blood Venipuncture / Unknown 02/07/2025 5:18 AM EDT 02/07/2025 5:58 AM EDT us Von Sloan PA-C LAB BLOOD ORDERABLES Final Res ult Performing Organization Address City/State/[facility] Co de Phone Number [facility] [address] [place] [address] * (ABNORMAL) Basic Metabolic Panel (02/07/2025 5:18 AM EDT) Sodium 136 136 - 145 meq/L 02/07/2025 6:[address] [facility] Potassium 4.9 3.4 - 5.1 meq/L 02/07/2025 6:[address] [facility] CO2 29 22 - 29 meq/L 02/07/2025 6:[address] [facility] Chloride 99 98 - 112 meq/L 02/07/2025 6:[address] [facility] Glucose 85 82 - 115 mg/dL 02/07/2025 6:[address] [facility] BUN 13.0 9.8 - 20.1 mg/dL 02/07/2025 6:[address] [facility] Creatinine 0.84 0.57 - 1.11 mg/dL 02/07/2025 6:[address] [facility] BUN/Creatinine 15 8 - 20 02/07/2025 6:[address] [facility] Calcium 10.0 8.4 - 10.2 mg/dL 02/07/2025 6:[address] [facility] Anion Gap 13(H) 4 - 12 02/07/2025 6:[address] [facility] eGFR (mL/min/1.73m2) 75 >=60 mL/min/1.7 3m2 02/07/2025 6:[address] [facility] Osmolality Calc 271.3 mOsm/kg 6:[address] [facility] Blood Venipuncture / Unknown 02/07/2025 5:18 AM EDT 02/07/2025 5:59 AM EDT us Von Sloan PA-C LAB BLOOD ORDERABLES Final Res ult [facility] [address] [phone] * CTA abdomen & pelvis (02/06/2025 7:19 [...] by Gareth Meza. us Laura Gibson DO [facility] [place] ORDERABLES Final Result [...] ABO/Rh O Positive 02/06/2025 6:05 PM EDT [facility] ([place]) Antibody Screen Negative 02/06/2025 6:05 PM EDT [facility] ([place]) HISTCHK HIST CHECK PERFORMED 02/06/2025 6:05 PM EDT [facility] ([place]) Blood Venipuncture / Unknown 02/06/2025 6:23 PM EDT 02/06/2025 7:04 PM EDT Laura Gibson DO [facility] B[facility] TEST ORDERABLES Final Result [facility] ([place]) 1 [place] [address], [facility] [phone] * High Sensitivity Troponin I (02/06/2025 6:23 PM EDT) [facility] Troponin I High Sensitivity (pg/mL) 12.2 <=14 pg/mL 02/06/2025 7:[address] [facility] Blood Venipuncture / Unknown 02/06/2025 6:23 PM EDT 02/06/2025 7:[address] [facility] - 02/06/2025 7:29 PM EDT Applicable to [facility] only. Effective October 06 the lab will begin using a new chemistry analyzer. HsTroponin methodology, reference ranges and critical values have changed. Laura Gibson DO LAB BLOOD ORDERABLES Final Resu lt [facility] 1 [place] [address], [facility] [phone] * (ABNORMAL) aPTT (02/06/2025 6:23 PM EDT) Pathologist [facility] aPTT 32.8(H) 22.0 - 32.0 seconds 02/06/2025 7:[address] [facility] Blood Venipuncture / Unknown 02/06/2025 6:23 PM EDT 02/06/2025 7:04 PM EDT Lauraevangelina Gibson LAB BLOOD ORDERABLES Final Resu lt [facility] 1 [place] [address], [facility] [phone] * Prothrombin time/INR (02/06/2025 6:23 PM EDT) Protime 10.4 9.0 - 12.0 seconds 02/06/2025 7:[address] [facility] INR 0.93 0.80 - 1.10 02/06/2025 7:[address] [facility] Comment: Recommended therapeutic ranges using International Normalized Ratio (INR) are: INR RANGE 2.0 - 3.0 Routine oral anticoagulant therapy 2.5 - 3.5 Oral anticoagulant therapy for patients with thromboembolic events on standard doses of Coumadin and those with mechanical heart valves. Blood Venipuncture / Unknown 02/06/2025 6:23 PM EDT 02/06/2025 7:04 PM EDT Lauraevangelina Gibson LAB BLOOD ORDERABLES Final Resu lt [facility] 1 [place] [address], [facility] [phone] * ECG 12 lead (02/06/2025 5:41 PM EDT) VENTRICULAR RATE EKG/MIN 67 BPM GE MUSE ATRIAL RATE (MCT) 69 BPM GE MUSE NJ Interval 152 ms GE MUSE QRS-INTERVAL (MSEC) 80 ms GE MUSE QT Interval 386 ms GE MUSE QTC Interval 407 ms GE MUSE P [place] 57 degrees GE MUSE R AXIS (MCT) -71 degrees GE MUSE T Wave [place] 40 degrees GE MUSE Archer Diagnosis Age and gender specific ECG analysis [...] Advance Directives For more information, please contact: [phone] * DNR - Limited Additional Intervention (Latest Code Status on File) Date Activated Date Inactivated Comments 02/06/2025 9:46 PM 02/09/2025 1:53 PM * Full Code Date Activated Date Inactivated Comments 10/06/2024 8:39 PM 10/09/2024 6:04 PM Care Teams Hotel Clerk Relationship Specialty Start Date End Date Jorje, Provider Not In The System, [place] [address] PCP - General 02/06/25
[2025-03-20 16:21] LABS: Hematocrit 34.9 % (37.0-47.0); Hemoglobin 10.3 g/dL (12.2-16.2); Immature Granulocytes % 0.2 %; Mean Corpuscular HGB Conc 29.5 g/dL (31.8-35.4); Mean Corpuscular Hemoglobin 27.6 pg (27.0-31.2); Mean Corpuscular Volume 93.6 fl (81-99); Nucleated Red Blood Cells % 0 %; Platelet Count 266 K/mm3 (142-424); Red Blood Count 3.73 M/mm3 (4.20-5.40); Red Cell Distribution Width-SD 46.6 fL; White Blood Count 5.9 K/mm3 (4.8-10.8)
[2025-03-20 16:23] LABS: Coronavirus 19, PCR Not Detected (NotDetected); Influenza A, PCR Not Detected (NotDetected); Influenza B, PCR Not Detected (NotDetected)
[2025-03-20 16:25] LABS: Lactate Venous 1.7 mmol/L (0.4-2.0); VBG HCO3 33.1 mmol/L (23-30); VBG PH 7.30 mmol/L (7.31-7.41); VBG PO2 35.6 mmol/L (28-40)
[2025-03-20 16:27] LABS: VBG PCO2 68.1 mmol/L (35-51)
[2025-03-20 16:27] LABS: Alanine Aminotransferase 12 U/L (12-78); Albumin Level 4.3 g/dl (3.5-5.0); Albumin/Globulin Ratio 1.4 (1.1-1.8); Alkaline Phosphatase 58 U/L (38-126); Anion Gap 12.6 mEq/L (5-15); Aspartate Amino Transferase 24 U/L (14-36); Bilirubin,Total 0.3 mg/dl (0.2-1.3); Blood Urea Nitrogen 12 mg/dl (7-17); Calcium 11.3 mg/dl (8.4-10.2); Carbon Dioxide 37 mmol/L (22.0-30.0); Chloride 91 mmol/L (98-107); Creatinine Clearance Estimated 51 mL/min (50-200); Creatinine,Serum 0.70 mg/dl (0.52-1.04); Estimated Glomerular Filt Rate 83 ml/min (>60); GFR (African American) 100 ML/MIN (>60); Globulin 3.1 g/dL (1.3-3.2); Glucose 102 mg/dl (74-100); Lipase 77 U/L (23-300); Magnesium 1.4 mg/dl (1.6-2.3); Potassium 4.6 mmoL/L (3.5-5.1); Sodium 136 mmol/L (136-145); Total Protein,Serum 7.4 g/dl (6.3-8.2)
[2025-03-20 16:31] LABS: D-Dimer 0.67 ug/mL (0.0-0.5)
[2025-03-20] MEDS: DEXAMETHASONE 4MG/ML 1ML VIAL 8 MG IV (16:38)
--- NOTE | 2025-03-20 16:38 | PC.NURSE ---
Called resp. for Bipap
[2025-03-20] MEDS: MAGNESIUM SULFATE IN WATER 2 GM/50 ML PIGGYBACK IV ×2 (16:39→23:21)
[2025-03-20 16:40] LABS: NT Pro Brain Natriuretic Pep. 4280 pg/mL (0-125); Troponin I < 0.01 ng/ml (0.00-0.034)
[2025-03-20] MEDS: IPRATROPIUM/ALBUTEROL 3 ML NEB 9 ML IH (16:46)
--- NOTE | 2025-03-20 17:18 | CT_ITS ---
PROCEDURE INFORMATION: Exam: CTA Chest Without And With Contrast Exam date and time: 03/20/2025 5:34 PM Age: 70 years old Clinical indication: Other: Elevated dimer TECHNIQUE: Imaging protocol: Computed tomographic angiography of the chest without and with contrast. Exam focused on the arteries. 3D rendering (Not supervised by radiologist): MIP and/or 3D reconstructed images were created by the technologist. Radiation optimization: All CT scans at this facility use at least one of these dose optimization techniques: automated exposure control; mA and/or kV adjustment per patient size (includes targeted exams where dose is matched to clinical indication); or iterative reconstruction. Contrast material: ISOVUE; Contrast volume: 80 ml; Contrast route: INTRAVENOUS (IV); COMPARISON: 1. CT ANGIO CHEST PE PROTOCOL 02/28/2025 4:[address] ANGIO CHEST PE PROTOCOL 02/28/2025 4:[address] angiogram of the chest performed January 27, [address]25. 4. CT ABDOMEN PELVIS W CON 07/28/2024 5:26 PM FINDINGS: Pulmonary arteries: Mild dilatation of the main pulmonary artery measuring up to 3.8 cm in greatest diameter. This is unchanged. Mild dilatation of the right main pulmonary artery. This is unchanged. No CT evidence for central or segmental pulmonary embolism. Great vessels off aortic arch: Heavy atherosclerotic plaque is present within the right and left common carotid artery and at the right and left carotid bulb. Aorta: Normal caliber of the ascending and descending thoracic aorta. Heavy atherosclerotic plaque at the aortic arch. Heavy atherosclerotic plaque along the distal aspect of the ascending colon and along the length of the descending colon. No evidence for dissection. Other arteries: Heavy atherosclerotic plaque along the visualized portion of the abdominal aorta. Heavy atherosclerotic plaque at the origins of the major branch vessels. Major branch vessels are patent. Thyroid: Thyroid gland appears unremarkable. Trachea: Central airways are clear. Mild central bronchiectasis within the right lower lobe is unchanged. Lungs: 2.6 cm area of irregular airspace consolidation and slight distortion within the medial aspect of the left lobe upper lobe is unchanged compared to the most recent prior CT scan and has slightly decreased in size compared to the prior exam from January 27, 2025. 2.9 x 2.1 x 2.7 cm masslike area of airspace consolidation within the posterior aspect of the right upper lobe. This abuts the major fissure. Associated peripheral patchy airspace opacity and nodularity is present along the right lateral margin. This appears unchanged. Findings may correspond to rounded atelectasis and postinflammatory change. Underlying neoplastic disease is not excluded. 11 mm ground-glass airspace opacity within the left upper lobe (image 44 of series 7) is unchanged. Areas of fibrosis and scarring within the superior segment of the left lower lobe and extending to the margin of the left hilum is unchanged. Minimal linear atelectatic change within the posterior sulcus of the left lung base appears similar. Centrilobular emphysematous changes are present bilaterally. No new suspicious mass or new airspace consolidation. Pleural spaces: No pleural effusion. No pneumothorax. Heart: Heart size is upper limits for normal. No pericardial effusion. Dense coronary artery calcifications are present. Esophagus: Probable surgical clips within the distal esophagus, posterior to the left atrium, are unchanged in position and appearance. Thickened appearance of the distal esophagus is unchanged. Lymph nodes: Enlarged precarinal lymph node measuring 13 mm in short axis is unchanged. Additional small shotty pretracheal and paratracheal lymph nodes are unchanged. Small nonenlarged prevascular lymph nodes appear unchanged. Fullness of the intrapulmonary lymphoid tissue at the right hilum is unchanged. Minimal fullness of the intrapulmonary lymphoid tissue at the left hilum is unchanged. Small subcarinal lymph nodes are unchanged. No new suspicious mass or new suspicious lymphadenopathy within the upper abdomen. Diaphragm: Moderate hiatal hernia is present. Liver: Small 12 mm cyst within the lateral segment of the left lobe of the liver. Early timing of the contrast bolus limits evaluation of the liver. Numerous scattered calcifications are present within the visualized portion of the liver compatible with prior granulomatous disease. Pancreas: Visualized portion of the pancreas is unremarkable. Spleen: 2.8 cm enhancing mass within the spleen likely was present on the prior exam and appears essentially unchanged. Additional smaller 1.4 cm enhancing nodule within the inferior aspect of the spleen. Findings may correspond to splenic hemangiomas. Please correlate with any prior history of malignancy. Numerous circumscribed calcifications are present within the spleen compatible with prior granulomatous disease. Adrenal glands: No adrenal mass. Kidneys: Symmetric appearance of the right and left renal nephrograms. Bilateral renal cysts are present. Perinephric stranding is present on the right and left. Findings appear unchanged. Bones/joints: Bones are demineralized. No new suspicious lytic or sclerotic bone lesion. Anterior wedge compression fracture deformity at T11 and T12 is unchanged. Associated vertebroplasty changes are present. Slight retropulsion along the posterior margin of T11 and T12 appears unchanged. Compression fracture deformity and post vertebroplasty change at L2 is unchanged. Advanced degenerative changes are present within the lower cervical spine. Soft tissues: No axillary mass or lymphadenopathy. There are no enlarged supraclavicular lymph nodes. IMPRESSION: 1. No CT evidence for central or segmental pulmonary embolism. Mild dilatation of the main pulmonary artery and right main pulmonary artery is unchanged. 2. Mildly enlarged precarinal lymph node is unchanged. Asymmetric fullness of the intrapulmonary lymphoid tissue at the right hilum is unchanged. 3. Continued interval decrease in size of irregular airspace opacity and slight architectural distortion within the medial aspect of the left upper lobe. Findings more in keeping with fibrosis and scarring. 4. Persistent masslike airspace consolidation within the posterior aspect of the right upper lobe. There is associated septal thickening and nodularity along the lateral margin. This abuts the major fissure. Findings may correspond to postinflammatory change and round atelectasis. Neoplastic disease is not excluded. Interval follow-up CT scan of the chest is recommended in 4-6 weeks to evaluate for any potential resolution or persistence. If the area persists on subsequent follow-up imaging, PET-CT scan should be considered to evaluate for underlying malignancy. 5. COPD changes are present bilaterally. 6. No pleural effusion or pneumothorax. 7. Small hiatal hernia is unchanged. Thickened appearance of the distal esophagus appears unchanged. 8. Circumscribed enhancing nodules are present within the spleen. These are somewhat nonspecific and may correspond to splenic hemangiomas. Please correlate with any prior history of malignancy. 9. Bilateral renal cysts are unchanged. Rather extensive perinephric stranding and small amount of perinephric fluid is present on the right and left appears unchanged. 10. Additional findings as described above. COMMENTS: 1. Consistent with the [employer]'s Incidental Findings Committee white paper (J Am Janice Radiol 2018): Any incidental renal lesion less than 1 cm or classified as too small to characterize, or any incidental cystic renal lesion characterized as simple-appearing, is likely benign. No follow-up imaging is recommended for these lesions per consensus recommendations based on imaging criteria. 2. The presence of pulmonary emphysema on CT is an independent risk factor for lung cancer. In the absence of a history or active diagnosis of lung cancer, it is recommended that this patient with emphysema be evaluated for enrollment in a low dose CT lung cancer screening program.
[2025-03-20] MEDS: SODIUM CHLORIDE 0.9% 10ML SYR (RAD ONLY) 10 ML IV (17:32)
[2025-03-20] MEDS: 0.9 % SODIUM CHLORIDE 50 ML VIAL IV (17:32)
[2025-03-20] MEDS: IOPAMIDOL-370 (76%);100ML BOTTLE 80 ML IV (17:32)
[2025-03-20] MEDS: FUROSEMIDE 100MG/10ML VIAL 80 MG IV (17:42)
--- NOTE | 2025-03-20 18:50 | PC.NURSE ---
loan supervisor contacted regarding bed request.
[2025-03-20 19:40] LABS: Troponin I < 0.01 ng/ml (0.00-0.034)
--- OUTSIDE RECORDS SUMMARY | 2025-03-20 20:12 | XMS_ITS | Encounter Summary ---
Author Organization [facility] ([place], [place], [place], [place]) Address [address] [place] [address] Care Team Providers Care Terrazzo Journeyman Name Role Phone [facility], Provider Not In The System Primary [...] Do you speak a language other than [facility]? No 02/07/2025 Do [...] on filedocumented in this encounter Care Teams Terrazzo Journeyman Relationship Specialty Start Date End Date [facility], Provider Not In The System, [place] [address] PCP - General 02/06/25 documented as of this encounter
--- OUTSIDE RECORDS SUMMARY | 2025-03-20 20:13 | XMS_ITS | Clinical Summary ---
Author Organization [facility] Address [address] [place] [address] Phone Care Team Providers Care Electronic Bench Technician Name Role Phone Unavailable Unavailable Conditions or Problems No information available. Medications No information available. Medications Administered No information available. Allergies, Adverse Reactions, Alerts No information available. Results No information available. Plan of Care No information available. Procedures No information available. Vital Signs No information available. Immunizations No information available. Advance Directives No information available.
--- OUTSIDE RECORDS SUMMARY | 2025-03-20 20:13 | XMS_ITS | Clinical Summary ---
Author Organization Healthcare Address [address] [place] [address] Care Team Providers Care Second Steward Name Role Phone Rajat Navarro MD Primary Care Provider [phone] Social History Tobacco Use Types Packs/Day Years [...] 2005 UKY-Zoster Vaccines (1 of 2) 2005 YBD-[id number]-19 Vaccine ( - 2024- season) 2025 05/24/2021, [...] this topic Insurance [employer] MED[employer] Care Teams Second Steward Relationship Specialty Start Date End Date Rajat Navarro MD [address] [place] [address] #1 #1 [place] [id number] PCP - General 07/15/20
--- OUTSIDE RECORDS SUMMARY | 2025-03-20 20:14 | XMS_ITS | Referral Summary ---
Author Organization [employer] ([place], [place], [place], [place]) Address [address] [place] [address] Care Team Providers Care Collar Setter Overlock Name Role Phone [facility], Provider Not In The System MD Primary Care Provider Unavailable Encounters Date Type Department Care Team Description 02/06/2025 5:35 PM EDT - 02/09/2025 12:35 PM EDT Hospital Encounter [facility] Cardiac Telemetry 1 [place] [address] aLura Gibson DO Turley, David, MD Hughes, Isaac, PA-C Poonawala, Stephanie, APRN Siddiqi, Ismaeel, DO Zohary, Yasser, MD Hematemesis with nausea (Primary Dx); Hematemesis; Nusrat-Prajapati tear; Hematemesis, unspecified whether nausea present; Anticoagulated on Eliquis; Malignant neoplasm of lung, unspecified laterality, unspecified part of lung (HCC); Tobacco abuse Discharge Disposition: Home or Self Care 02/06/2025 7:00 PM EDT - 02/06/2025 7:39 PM EDT Surgery [facility] 1 [place] [address] Marisa Garcia MD ESOPHAGOGASTRODUODENOSCOPY (EGD) [...] you? Never 02/07/2025 How often does anyone, ocnrad bravo family and friends, insult or talk [...] on file Medical Devices Implanted Type Area Kiss Mixer Device Identifier Shelf Expiration Date Model / Serial / Lot Duraclip Sm 16mm [id number] - [id number] Implanted:Qty: 3 on 02/06/2025 by Marisa Garcia MD at [facility] N/A: Esophagus CONMED 04/28/2027 [id number] / / [id number] Procedures Procedure Name Priority Date/Time Associated Diagnosis [...] AND HEMATOCRIT STAT 02/06/2025 8:22 PM EDT [place] EGD TRANSORAL CONTROL BLEEDING ANY METHOD 02/06/2025 [...] 02/08/2025 3:50 PM EDT us Nara Aguilar BIOLOGY TUTOR LAB BLOOD ORDERABLES Fi nal Result [facility] [address] [phone] * (ABNORMAL) CBC with automated diff (02/08/2025 [...] Atypical Lymph flag noted us Nara Aguilar BIOLOGY TUTOR LAB BLOOD ORDERABLES Fi nal Result [facility] [address] [phone] * (ABNORMAL) Manual Differential (02/08/2025 4:41 AM [...] EDT 02/08/2025 5:01 AM EDT Nara Aguilar BIOLOGY TUTOR LAB BLOOD ORDERABLES Fi nal Result Performing Organization Address City/[facility] Co de Phone Number [facility] [address] [phone] * Magnesium (02/08/2025 4:41 AM EDT) Only the most recent of2 resultswithin the time period is included. Magnesium 1.6 1.6 - 2.6 mg/dL 02/08/2025 5:54 AM EDT [facility] Blood Venipuncture / Unknown 02/08/2025 4:41 AM EDT 02/08/2025 5:05 AM EDT Nara Goinsmeaghanadelina BIOLOGY TUTOR LAB BLOOD ORDERABLES Fi nal Result Performing Organization Address City/[facility] Co de Phone Number [facility] [address] [phone] * (ABNORMAL) Comprehensive metabolic panel (02/08/2025 4:41 [...] 2.5 - 4.1 g/dL 02/08/2025 5:59 AM [facility] Anion Gap 12 4 - 12 02/08/2025 5:59 AM [facility] A/G Ratio 0.9 0.7 - 1.9 02/08/2025 5:59 AM EDT [facility] Osmolality Calc 267.8 mOsm/kg 5:59 AM EDT [facility] Blood Venipuncture / Unknown 02/08/2025 4:41 AM EDT 02/08/2025 5:05 AM EDT us Nara Aguilar BIOLOGY TUTOR LAB BLOOD ORDERABLES Fi nal Result [facility] [address] [phone] * (ABNORMAL) CBC - Hemogram (SJ-BKR) (02/07/2025 [...] Final Res ult [facility] [address] [phone] * (ABNORMAL) Basic Metabolic Panel (02/07/2025 5:18 [...] Final Res ult [facility] 1 [place] [address], [facility] [phone] * CTA abdomen & pelvis (02/06/2025 7:19 [...] [place]. Transcribed by Gareth Meza. Laura Arthur [facility] ORDERABLES Final Result * CTA [...] dictated by Dr. Reymundo Salamanca. Transcribed by Garteh Meza. Laura Gibson DO [facility] CT ORDERABLES Final Result * Type and Screen (02/06/2025 6:23 PM EDT) ABO/Rh O Positive 02/06/2025 6:05 PM EDT [facility] ([place] Antibody Screen Negative 02/06/2025 6:05 PM EDT [facility] [place] HISTCHK HIST CHECK PERFORMED 02/06/2025 6:05 PM EDT [facility] [place] Blood Venipuncture / Unknown 02/06/2025 6:23 PM EDT 02/06/2025 7:04 PM EDT Laura Gibson DO [facility] BLOOD BANK TEST ORDERABLES Final Result [facility] ([place]) [address] [facility] [place] [address], [facility] [phone] * High Sensitivity Troponin I (02/06/2025 6:23 [...] reference ranges and critical values have changed. [facility] LAB BLOOD ORDERABLES Final Resu lt Performing Organization Address City/[facility]/ZIP Co de Phone Number [facility] [address] [phone] * (ABNORMAL) aPTT (02/06/2025 6:23 PM EDT) aPTT 32.8(H) 22.0 - 32.0 seconds 02/06/2025 7:21 PM EDT [facility] Blood Venipuncture / Unknown 02/06/2025 6:23 PM EDT 02/06/2025 7:04 PM EDT [facility] BLOOD ORDERABLES Final Resu lt [facility] [address] [phone] * Prothrombin time/INR (02/06/2025 6:23 PM EDT) [...] ORDERABLES Final Resu lt Performing Organization Address City/[facility]/ZIP Co de Phone Number [facility] 1 [place] [address], [facility] [phone] * ECG 12 lead (02/06/2025 5:41 PM EDT) VENTRICULAR RATE EKG/MIN 67 BPM GE MUSE ATRIAL RATE (MCT) 69 BPM GE MUSE [place] Interval 152 ms GE MUSE QRS-INTERVAL (MSEC) 80 ms GE MUSE QT Interval 386 ms GE MUSE QTC Interval 407 ms GE MUSE P [place] 57 degrees GE MUSE R AXIS (MCT) -71 degrees GE MUSE T Wave [place] 40 degrees GE MUSE [place] Diagnosis Age and gender specific ECG analysis Normal sinus rhythm Left axis deviation Abnormal ECG When compared with ECG of 06-OCT-2024 19:45, Significant changes have occurred Confirmed by Edvin ESPINOZA, [facility] (2019) on 02/08/2025 5:26:45 PM GE MUSE 02/06/2025 5:41 PM EDT 02/08/2025 5:26 PM EDT Laura Gibson DO ECG ORDERABLES Final Result Performing Organization Address [facility] Co de Phone Number GE MUSE * EKG-SCANNED (02/06/2025) Narrative 02/06/2025 Ordered by an unspecified provider. Default Scanning Provider SCAN ORDERS Final Result from Last 3 Months Insurance [employer] MCR ADV Advance Directives For more information, please contact: [phone] * DNR - Limited Additional Intervention (Latest Code Status on File) Date Activated Date Inactivated Comments 02/06/2025 9:46 PM 02/09/2025 1:53 PM * Full Code Date Activated Date Inactivated Comments 10/06/2024 8:39 PM 10/09/2024 6:04 PM Care Teams Collar Setter Overlock Relationship Specialty Start Date End Date [facility], Provider Not In The System, [place] [address] PCP - General 02/06/25
--- OUTSIDE RECORDS SUMMARY | 2025-03-20 20:14 | XMS_ITS | Clinical Summary ---
Author Organization [employer] ([place], [place], [place], [place]) Address [address] [place] [address] Care Team Providers Care Field Artillery Cannoneer Name Role Phone [facility], Provider Not In The System [...] EDT Surgery [facility] [address] [place] [address] Marisa Garcia MD ESOPHAGOGASTRODUODENOSCOPY (EGD) 02/06/2025 5:35 PM EDT - 02/09/2025 12:35 PM EDT Hospital Encounter [facility] Cardiac Telemetry 1 [place] [id number] Laura Gibson DO Turley, David, MD Hughes, [...] speak a language other than [place] at [facility]? No 02/07/2025 Do you want [...] 2025 05/30/2023 Medical Devices Implanted Type Area Computed Tomography Technician Device Identifier Shelf Expiration Date Model / Serial / Lot Duraclip Sm 16mm [id number] - [id number] Implanted:Qty: 3 on 02/06/2025 by Marisa Garcia MD at [facility] N/A: Esophagus CONMED 04/28/2027 [id number] / / [id number] Procedures Procedure Name Priority Date/Time Associated Diagnosis [...] AND HEMATOCRIT STAT 02/06/2025 8:[address] EGD TRANSORAL CONTROL BLEEDING ANY METHOD 02/06/2025 [...] of3 resultswithin the time period is included. [facility] Hemoglobin 8.2(L) 11.2 - 15.7 GM/DL 02/08/2025 3:[address] [facility] Hematocrit 25.3(L) 34.1 - 44.9 % 02/08/2025 3:[address] [facility] Blood Venipuncture / Unknown 02/08/2025 3:46 PM EDT 02/08/2025 3:50 PM EDT Nara Aguilar APRN LAB BLOOD ORDERABLES Fi nal Result [facility] [address] [phone] * (ABNORMAL) CBC with automated diff (02/08/2025 4:41 AM EDT) Only the most recent of2 resultswithin the time period is included. Pathologist [facility] WBC 7.7 4.0 - 10.0 K/ L 02/08/2025 6:[address] [facility] RBC 2.75(L) 3.93 - 5.22 M/ L 02/08/2025 6:[address] [facility] Hemoglobin 8.1(L) 11.2 - 15.7 GM/DL 02/08/2025 6:[address] [facility] Hematocrit 25.8(L) 34.1 - 44.9 % 02/08/2025 6:[address] [facility] MCV 94 79 - 95 fL 02/08/2025 6:[address] [facility] MCH 29.5 25.6 - 32.2 pg 02/08/2025 6:[address] [facility] MCHC 31.4(L) 32.2 - 35.5 GM/DL 02/08/2025 6:[address] [facility] RDW 14.2 11.7 - 14.4 % 02/08/2025 6:[address] [facility] Platelets 315 140 - 375 K/CU MM 02/08/2025 6:[address] [facility] MPV 9.0(L) 9.4 - 12.3 fL 02/08/2025 6:[address] [facility] NRBC Absolute <0.01 0 - 0.012 K/ul 02/08/2025 6:[address] [facility] Blood Venipuncture / Unknown 02/08/2025 4:41 AM EDT 02/08/2025 5:01 AM EDT [facility] - 02/08/2025 6:12 AM [...] LAB BLOOD ORDERABLES Fi nal Result [facility] [address] [phone] * (ABNORMAL) Manual Differential (02/08/2025 4:41 AM EDT) Pathologist [facility] Total Counted 100 02/08/2025 9:[address] [facility] % Neutros (manual) 70(H) 50 - 65 % 02/08/2025 9:[address] [facility] % Bands (manual) 2 % 02/08/2025 9:[address] [facility] % Lymphs (manual) 23(L) 24 - 44 % 02/08/2025 9:[address] [facility] % Monos (manual) 1(L) 4 - 5 % 02/08/2025 9:[address] [facility] % Eos (manual) 4(H) 0 - 3 % 02/08/2025 9:[address] [facility] RBC Morphology abnormal(A) Normal 9:[address] [facility] Platelet Estimate Adequate Adequate 02/08/2025 9:[address] [facility] Hypochromia 1+ 02/08/2025 9:[address] [facility] Ovalocytes 1+ 02/08/2025 9:[address] [facility] ANC# 5.54 K/ L 02/08/2025 9:[address] [facility] Blood Venipuncture / Unknown 02/08/2025 4:41 AM EDT 02/08/2025 5:01 AM EDT Nara Aguilar IT PROJECT MANAGER LAB BLOOD ORDERABLES Fi nal Result [facility] [address] [phone] * Magnesium (02/08/2025 4:41 AM EDT) Only the most recent of2 resultswithin the time period is included. Magnesium 1.6 1.6 - 2.6 mg/dL 02/08/2025 5:[address] [facility] Blood Venipuncture / Unknown 02/08/2025 4:41 AM EDT 02/08/2025 5:05 AM EDT us Nara Aguilar IT PROJECT MANAGER LAB BLOOD ORDERABLES Fi nal Result [facility] 1 [place] [id number], [facility] [phone] * (ABNORMAL) Comprehensive metabolic panel (02/08/2025 4:41 AM EDT) Only the most recent of2 resultswithin the time period is included. Sodium 135(L) 136 - 145 meq/L 02/08/2025 5:[address] [facility] Potassium 3.7 3.4 - 5.1 meq/L 02/08/2025 5:[address] [facility] Chloride 98 98 - 112 meq/L 02/08/2025 5:[address] [facility] CO2 29 22 - 29 meq/L 02/08/2025 5:[address] [facility] Calcium 9.1 8.4 - 10.2 mg/dL 02/08/2025 5:[address] [facility] Glucose 85 82 - 115 mg/dL 02/08/2025 5:[address] [facility] BUN 8.3(L) 9.8 - 20.1 mg/dL 02/08/2025 5:[address] [facility] Creatinine 0.77 0.57 - 1.11 mg/dL 02/08/2025 5:[address] [facility] BUN/Creatinine 11 8 - 20 02/08/2025 5:[address] [facility] eGFR (mL/min/1.73m2) 84 >=60 mL/min/1. 73m2 02/08/2025 5:[address] [facility] Albumin 2.3(L) 3.5 - 5.0 g/dL 02/08/2025 5:[address] [facility] Alkaline Phosphatase 38(L) 40 - 150 U/L 02/08/2025 5:[address] [facility] ALT <7 <=34 U/L 02/08/2025 5:[address] [facility] Comment: ALT2 reagent used for testing does not contain P5P supplementation and therefore may miss ALT elevations in patients with B6 deficiency. This population may be as high as 10% in the [place], with risk factors including malabsorption, drug interactions, and alcoholic hepatitis. AST 11 11 - 34 U/L 02/08/2025 5:[address] [facility] Comment: AST2 reagent used for testing does not contain P5P supplementation and therefore may miss AST elevations in patients with B6 deficiency. This population may be as high as 10% in the [place], with risk factors including malabsorption, drug interactions, and alcoholic hepatitis. Total Bilirubin 0.2 0.2 - 1.2 mg/dL 02/08/2025 5:[address] [facility] Protein, Total 5.0(L) 6.4 - 8.3 g/dL 02/08/2025 5:[address] [facility] Globulin 2.7 2.5 - 4.1 g/dL 02/08/2025 5:[address] [facility] Anion Gap 12 4 - 12 02/08/2025 5:[address] [facility] A/G Ratio 0.9 0.7 - 1.9 02/08/2025 5:[address] [facility] Osmolality Calc 267.8 mOsm/kg 5:[address] [facility] Blood Venipuncture / Unknown 02/08/2025 4:41 AM EDT 02/08/2025 5:05 AM EDT Nara Aguilar IT PROJECT MANAGER LAB BLOOD ORDERABLES Fi nal Result [facility] [address] [phone] * (ABNORMAL) CBC - Hemogram (SJ-BKR) (02/07/2025 5:18 AM EDT) WBC 11.6(H) 4.0 - 10.0 K/ L 02/07/2025 6:[address] [facility] RBC 3.14(L) 3.93 - 5.22 M/ L 02/07/2025 6:[address] [facility] Hemoglobin 9.1(L) 11.2 - 15.7 GM/DL 02/07/2025 6:[address] [facility] Hematocrit 30.4(L) 34.1 - 44.9 % 02/07/2025 6:[address] [facility] MCV 97(H) 79 - 95 fL 02/07/2025 6:[address] [facility] MCH 29.0 25.6 - 32.2 pg 02/07/2025 6:[address] [facility] MCHC 29.9(L) 32.2 - 35.5 GM/DL 02/07/2025 6:[address] [facility] RDW 14.5(H) 11.7 - 14.4 % 02/07/2025 6:[address] [facility] Platelets 340 140 - 375 K/CU MM 02/07/2025 6:[address] [facility] MPV 9.1(L) 9.4 - 12.3 fL 02/07/2025 6:[address] [facility] Blood Venipuncture / Unknown 02/07/2025 5:18 AM EDT 02/07/2025 5:58 AM EDT us Von Sloan PA-C LAB BLOOD ORDERABLES Final Res ult Performing Organization Address City/State/[facility] Co de Phone Number [facility] [address] [place] [address] * (ABNORMAL) Basic Metabolic Panel (02/07/2025 5:18 AM EDT) Sodium 136 136 - 145 meq/L 02/07/2025 6:[address] [facility] Potassium 4.9 3.4 - 5.1 meq/L 02/07/2025 6:[address] [facility] CO2 29 22 - 29 meq/L 02/07/2025 6:[address] [facility] Chloride 99 98 - 112 meq/L 02/07/2025 6:[address] [facility] Glucose 85 82 - 115 mg/dL 02/07/2025 6:[address] [facility] BUN 13.0 9.8 - 20.1 mg/dL 02/07/2025 6:[address] [facility] Creatinine 0.84 0.57 - 1.11 mg/dL 02/07/2025 6:[address] [facility] BUN/Creatinine 15 8 - 20 02/07/2025 6:[address] [facility] Calcium 10.0 8.4 - 10.2 mg/dL 02/07/2025 6:[address] [facility] Anion Gap 13(H) 4 - 12 02/07/2025 6:[address] [facility] eGFR (mL/min/1.73m2) 75 >=60 mL/min/1.7 3m2 02/07/2025 6:[address] [facility] Osmolality Calc 271.3 mOsm/kg 6:[address] [facility] Blood Venipuncture / Unknown 02/07/2025 5:18 AM EDT 02/07/2025 5:59 AM EDT us Von Sloan PA-C LAB BLOOD ORDERABLES Final Res ult [facility] [address] [phone] * CTA abdomen & pelvis (02/06/2025 7:19 [...] by Gareth Meza. us Laura Gibson DO [facility] CT ORDERABLES Final Result [...] ABO/Rh O Positive 02/06/2025 6:05 PM EDT [facility] ([place]) Antibody Screen Negative 02/06/2025 6:05 PM EDT [facility] ([place]) HISTCHK HIST CHECK PERFORMED 02/06/2025 6:05 PM EDT [facility] ([place]) Blood Venipuncture / Unknown 02/06/2025 6:23 PM EDT 02/06/2025 7:04 PM EDT Laura Gibson DO [facility] BLOOD BANK TEST ORDERABLES Final Result [facility] ([place]) [address] [place] [address], [facility] [phone] * High Sensitivity Troponin I (02/06/2025 6:23 PM EDT) [facility] Troponin I High Sensitivity (pg/mL) 12.2 <=14 pg/mL 02/06/2025 7:[address] [facility] Blood Venipuncture / Unknown 02/06/2025 6:23 PM EDT 02/06/2025 7:[address] [facility] - 02/06/2025 7:29 PM EDT Applicable to [facility] only. Effective October 06 the lab will begin using a new chemistry analyzer. HsTroponin methodology, reference ranges and critical values have changed. Laura Gibson DO LAB BLOOD ORDERABLES Final Resu lt [facility] 1 [place] [address], [facility] [phone] * (ABNORMAL) aPTT (02/06/2025 6:23 PM EDT) Pathologist [facility] aPTT 32.8(H) 22.0 - 32.0 seconds 02/06/2025 7:[address] [facility] Blood Venipuncture / Unknown 02/06/2025 6:23 PM EDT 02/06/2025 7:04 PM EDT Lauraevangelina Gibson LAB BLOOD ORDERABLES Final Resu lt [facility] 1 [place] [address], [facility] [phone] * Prothrombin time/INR (02/06/2025 6:23 PM EDT) Protime 10.4 9.0 - 12.0 seconds 02/06/2025 7:[address] [facility] INR 0.93 0.80 - 1.10 02/06/2025 7:[address] [facility] Comment: Recommended therapeutic ranges using International Normalized Ratio (INR) are: INR RANGE 2.0 - 3.0 Routine oral anticoagulant therapy 2.5 - 3.5 Oral anticoagulant therapy for patients with thromboembolic events on standard doses of Coumadin and those with mechanical heart valves. Blood Venipuncture / Unknown 02/06/2025 6:23 PM EDT 02/06/2025 7:04 PM EDT Lauraevangelina Gibson LAB BLOOD ORDERABLES Final Resu lt [facility] 1 [place] [address], [facility] [phone] * ECG 12 lead (02/06/2025 5:41 PM EDT) VENTRICULAR RATE EKG/MIN 67 BPM GE MUSE ATRIAL RATE (MCT) [address] Interval 152 ms GE MUSE QRS-INTERVAL (MSEC) 80 ms GE MUSE QT Interval 386 ms GE MUSE QTC Interval 407 ms GE MUSE P [place] 57 degrees GE MUSE R AXIS (MCT) -71 degrees GE MUSE T Wave [place] 40 degrees GE MUSE [place] Diagnosis Age and gender specific ECG analysis Normal sinus rhythm Left axis deviation Abnormal ECG When compared with ECG of 06-OCT-2024 19:45, Significant changes have occurred Confirmed by Margret Pardo MD (2019) on 02/08/2025 5:26:45 PM GE MUSE 02/06/2025 5:41 PM EDT 02/08/2025 5:26 PM EDT us Laura Gibosn DO ECG ORDERABLES Final Result GE MUSE * EKG-SCANNED (02/06/2025) Narrative 02/06/2025 Ordered by an unspecified provider. us Default Scanning Provider SCAN ORDERS Final Result from Last 3 Months Insurance [employer] MCR ADV Advance Directives For more information, please contact: [phone] * DNR - Limited Additional Intervention (Latest Code Status on File) Date Activated Date Inactivated Comments 02/06/2025 9:46 PM 02/09/2025 1:53 PM * Full Code Date Activated Date Inactivated Comments 10/06/2024 8:39 PM 10/09/2024 6:04 PM Care Teams Field Artillery Cannoneer Relationship Specialty Start Date End Date Jorje, Provider Not In The System, [place] [address] PCP - General 02/06/25
--- NOTE | 2025-03-20 20:15 | EXP.HP ---
History of Present Illness *Admission Date: 03/20/25 *Reason for visit:: Shortness of breath *History of present illness: Ms. Balbuena is a 70-year-old female with history significant for COPD on 2 L chronically at home, suspected lung cancer not wanting workup, current tobacco use daily, HFpEF. States that she has been feeling more short of breath over the past 2 days. Has had some increased swelling in her legs. Denies productive cough. No nausea or vomiting. Intermittent episodes of chest discomfort that resolved spontaneously. Denies any fevers. 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 Workup in the ER was found to be positive for increased CO2 above baseline at 68 on VBG with pH of 7.3. White count normal at 5.9. Kidney function normal. Magnesium low at 1.4. Calcium 11.3. CT of her chest showing masslike consolidation that appears to be worsening. Scheduled to see pulmonology next week. BNP elevated at 4200. Increase shortness of breath with slight increase in oxygen requirement on arrival. Medicine consulted for admission of acute on chronic hypercapnic respiratory failure along with suspected CHF exacerbation. Admitted to stepdown for further care. Initially placed on BiPAP. Alert and oriented x 4 on evaluation. In no acute distress on 2 L oxygen by the time she arrived to the unit. Has had at least 1 L of urine output since presentation to the ER. Initiated on Levaquin. [facility] Disclaimer: The information contained in this section may have been updated after the patient was seen, as this information can be updated by other users. Medical History Unspecified disturbances of skin sensation Other specified symptoms and signs involving the circulatory and respiratory systems HTN (hypertension) HLD (hyperlipidemia) Pneumonia Fecal occult blood test positive Sepsis without septic shock Lymphedema Physical deconditioning General weakness Lung mass Hypomagnesemia Acute hypokalemia Chronic hyponatremia Generalized weakness COPD mixed type Lung nodule Hypokalemia Elevated troponin Nocturnal hypoxemia Pulmonary emphysema Incidental pulmonary nodule, greater than or equal to 8mm Smoking greater than 30 pack years Dyspnea on exertion Tobacco abuse disorder Tobacco abuse counseling Cervical cancer Surgical History History of dilation and curettage History of back surgery Family History Diabetes Social History Smoking Status: Current every day smoker tobacco type: cigarettes packs per day: 2 second hand exposure: Yes alcohol intake: never substance use type: denies use current occupational status: unemployed Travel in the last 8 weeks?: None household members: spouse housing: house current occupational exposures/hazards: No Have you lived/traveled outside [place] in past 30 days?: No Contact w/someone who lives/traveled outside [place] past 30 days?: No Exposure to someone with infectious disease in past 14 days?: No Do you have a fever (greater than 100.4 F or 38 C)?: No Have you tested positive for COVID-19?: No Exposed to someone with COVID-19 in past 14 days?: No Do you have a sore throat?: No Do you have a cough?: No Do you have any weakness?: No Do you have any diarrhea?: No Are you experiencing any unusual bleeding?: No Do you have any muscle aches/pain?: No Do you have any abdominal pain?: No Are you experiencing loss of taste or smell?: No Other Medical History Have you received the Flu Vaccine for this season: No Have you received the Pneumonia Vaccine: Yes Review of Systems Review of Systems Review of systems (narrative): 14 point review of systems performed, pertinent positives and negatives as per HPI Meds Home Medications and Allergies Home Medications ?Medication ?Instructions ?Recorded ?Confirmed ?Type albuterol sulfate 90 mcg/actuation 2 inh inhalation Q6HP PRN 04/15/24 03/20/25 History aerosol inhaler Shortness Of Breath montelukast 10 mg tablet 10 mg PO PM 04/15/24 03/20/25 History digoxin 125 mcg (0.125 mg) tablet 125 mcg PO DAILY #30 tabs 12/01/24 03/20/25 Rx metoprolol succinate 100 mg 100 mg PO HS 30 days #30 tabs 12/01/24 03/20/25 Rx tablet,extended release 24 hr apixaban 5 mg tablet (Eliquis) 5 mg PO BID 01/28/25 03/20/25 History losartan 100 mg tablet 100 mg PO DAILY 01/28/25 03/20/25 History alprazolam 1 mg tablet 1 mg PO BIDP PRN anxiety 03/01/25 03/18/25 History azithromycin 250 mg tablet 250 mg PO DAILY 3 days #3 tabs 03/01/25 03/18/25 Rx fluticasone fur. 100 mcg-umeclid 1 inh inhalation DAILY #60 ea 03/01/25 03/18/25 Rx 62.5 mcg-vilant 25 mcg inhalat.powder (Trelegy Ellipta) furosemide 40 mg tablet (Lasix) 40 mg PO DAILY #30 tabs 03/01/25 03/18/25 Rx spironolactone 25 mg tablet 25 mg PO DAILY 30 days #30 tabs 03/01/25 03/18/25 Rx ciclopirox 0.77 % topical cream 1 applic topical BID fungal nails 03/03/25 03/18/25 Rx 6 months #90 grams doxycycline hyclate 100 mg tablet mg PO DAILY 03/03/25 03/18/25 History levofloxacin 750 mg tablet mg PO DAILY 03/03/25 03/18/25 History mupirocin 2 % topical ointment 1 applic topical BID infection 14 03/03/25 03/18/25 Rx days #22 grams prednisone 50 mg tablet mg PO Q OTHER DAY 03/03/25 03/18/25 History doxycycline hyclate 100 mg capsule 100 mg PO BID infection 14 days 03/18/25 03/18/25 Rx #28 caps celecoxib 50 mg capsule 50 mg PO BID 03/20/25 03/20/25 History ciclopirox 0.77 % topical cream 0 applic topical TID 03/20/25 03/20/25 History gabapentin 800 mg tablet 800 mg PO TID 03/20/25 03/20/25 History hydrocodone 10 mg-acetaminophen 10 - 325 tab PO QID 03/20/25 03/20/25 History 325 mg tablet potassium chloride 20 mEq 20 meq PO BID 03/20/25 03/20/25 History tablet,extended release(part/cryst) New Prescriptions to Start Prescriptions: Allergies Allergy/AdvReac Type Severity Reaction Status Date / Time No Known Allergies Allergy Verified 03/18/25 11:45 Exam Data for Last 24 hours Vital signs and Labs for Last 24 Hours: Temp Pulse Resp BP Pulse Ox O2 Del Method O2 Flow Rate 98.9 F 84 19 175/79 H 95 BiPAP 2 03/20/25 19:56 03/20/25 19:56 03/20/25 19:56 03/20/25 19:56 03/20/25 17:00 03/20/25 19:56 03/20/25 16:06 Laboratory Results - last 24 hr 03/20/25 16:10: WBC 5.9, RBC 3.73 L, Hgb 10.3 L, Hct 34.9 L, MCV 93.6, MCH 27.6, MCHC 29.5 L, RDW 13.7, Plt Count 266, MPV 8.7, Neut % (Auto) 54.9, Lymph % (Auto) 33.6, Harlan % (Auto) 8.1, Eos % (Auto) 2.7, Baso % (Auto) 0.5, Neut # (Auto) 3.2, Lymph # (Auto) 2.0, Harlan # (Auto) 0.5, Eos # (Auto) 0.2, Baso # (Auto) 0.0, D-Dimer 0.67 H, Sodium 136, Potassium 4.6, Chloride 91 L, Carbon Dioxide 37 H, Anion Gap 12.6, BUN 12, Creatinine 0.70, Estimated Creat Clear 51, Estimated GFR 83, Est GFR ( Amer) 100, Glucose 102 H, Calcium 11.3 H, Magnesium 1.4 L, Total Bilirubin 0.3, AST 24, ALT 12, Alkaline Phosphatase 58, Troponin I < 0.01, NT-Pro-B Natriuret Pep 4280 H, Total Protein 7.4, Albumin 4.3, Globulin 3.1, Albumin/Globulin Ratio 1.4, Lipase 77 03/20/25 16:13: VBG pH 7.30 L, VBG pCO2 68.1 H, VBG pO2 35.6, VBG HCO3 33.1 H, VBG Total CO2 35.1 H, VBG O2 Saturation 61.6, VBG Base Excess 6.7 H, VBG Lactic Acid 1.7 03/20/25 16:18: SARS-CoV-2 (PCR) Not detected, Influenza A Untype (PCR) Not detected, Influenza Type B (PCR) Not detected 03/20/25 19:09: Troponin I < 0.01 I & O for Last 24 hours: Intake & Output 03/17/25 03/18/25 03/19/25 03/20/25 23:59 23:59 23:59 23:59 Intake Total 50 / 50 Balance 50 / 50 Weight 61.235 kg Constitutional Constitutional: mild distress, average body habitus, chronically ill appearing and cooperative *Routine HEENT Exam Head: Present normocephalic Eye: Present EOMI and PERRL ENT: Present mucous membranes moist Comments: Poor dentition *Routine Neck Exam Neck: Present supple; Absent lymphadenopathy *Routine Respiratory Exam Respiratory: Present prolonged expiratory phase, rhonchi, wheezes and crackles; Absent CTA bilaterally *Routine Cardiovascular Exam Cardiovascular: Present RRR *Routine Abdominal Exam Abdominal: Present soft and normoactive bowel sounds; Absent tenderness *Routine Rectal Exam Rectal:: deferred *Routine Genitalia Exam Genitalia:: deferred *Routine Extremities Exam Extremities: Present edema (2+ to knees, stasis changes bilaterally. Erythema and warmth equal bilaterally. No worse in right leg with injury); Absent cyanosis or clubbing Comments: Skin tear right lower extremity with scabbing. No drainage. No streaking. *Routine Skin Exam Skin: Present warm and wounds (Right lower extremity); Absent rash *Routine Neurological Exam Neurological: Present alert, oriented X3 and moving all extremities; Absent altered mental status Assessment and Plan *Assessment and plan (1) Acute on chronic heart failure with preserved ejection fraction (HFpEF): Status: Acute Category: Medical Code(s): I50.33 - Acute on chronic diastolic (congestive) heart failure (2) Acute exacerbation of chronic obstructive pulmonary disease: Status: Acute Category: Medical Code(s): J44.1 - Chronic obstructive pulmonary disease with (acute) exacerbation (3) Hypercapnic respiratory failure: Status: Acute Qualifiers: Chronicity: acute on chronic Qualified Code(s): J96.22 - Acute and chronic respiratory failure with hypercapnia Category: Medical Code(s): J96.92 - Respiratory failure, unspecified with hypercapnia (4) Smoking greater than 30 pack years: Status: Chronic Category: Social Hx Code(s): F17.210 - Nicotine dependence, cigarettes, uncomplicated (5) Tobacco abuse disorder: Status: Chronic Category: Medical Code(s): Z72.0 - Tobacco use (6) COPD (chronic obstructive pulmonary disease): Status: Chronic Qualifiers: COPD type: emphysema Emphysema type: panlobular Qualified Code(s): J43.1 - Panlobular emphysema Category: Medical Code(s): J44.9 - Chronic obstructive pulmonary disease, unspecified (7) HTN (hypertension): Status: Acute Qualifiers: Hypertension type: primary hypertension Qualified Code(s): I10 - Essential (primary) hypertension Category: Medical Code(s): I10 - Essential (primary) hypertension (8) Atrial fibrillation: Status: Acute Qualifiers: Atrial fibrillation type: paroxysmal Qualified Code(s): I48.0 - Paroxysmal atrial fibrillation Category: Medical Code(s): I48.91 - Unspecified atrial fibrillation Plan Ms. Balbuena is a 74-year-old female with a medical history significant for advanced COPD on 2 L baseline, suspected lung cancer not wanting workup, current tobacco smoker, HFpEF presents with shortness of breath. 2 days of worsening shortness of breath and swelling in her legs. States compliance with her Trelegy. Does not use her nebulizer often. On presentation to the ER, found to have elevated BNP of 4200. Chest imaging showing emphysema but no acute consolidation. Does have worsening masslike consolidation in right upper lobe. Discussed case with ER physician, request admission for acute on chronic hypercapnic respiratory failure and CHF exacerbation. Medicine agreed to admit for further care. Initiated on diuretics and antibiotics in the ED. Will admit to stepdown for close monitoring overnight. Problems addressed as follows: # Acute on chronic HFpEF - Patient's BNP elevated 4200, has swelling in her legs, increased dyspnea on exam - Chest CT per my review showing persistent masslike consolidation right upper lobe. Has some septal thickening with nodularity which could be from neoplastic process versus inflammatory process versus fluid. - Administered 80 mg IV Lasix in the ED, diuresing well. Will continue Bumex 1 mg IV twice daily. Goal negative fluid status daily. - Monitor kidney function closely. BUN 12, creatinine 0.7. Repeat CBC, CMP, magnesium ordered for the morning. - Echo from January 2025 showed normal BiV systolic function. - Magnesium 1.4, potassium 4.6. Replace per protocol # Chronic hypoxic respiratory failure # Acute on chronic hypercapnia # Acute COPD exacerbation ? Presented with shortness of breath, restrictive airway necessitating BiPAP initially. -Transition to nasal cannula by the time she arrived to the stepdown unit. On baseline 2 L oxygen. CO2 elevated at 68 however on initial VBG with pH of 7.3. Repeat VBG ordered for the morning -Continue DuoNebs every 6 hours scheduled -Initiate Pulmicort twice daily -Initiated on Levaquin in the ER, continue daily -Pulmonology consulted to evaluate Saturday -Resume Trelegy 100 inhaler daily - White count normal at 5.9, low concern for active pneumonia. #Hypertension: Hold home BP for now, BP stable. #History of pulmonary emboli: Continue home Eliquis. #A-fib ? Continue home metoprolol succinate 100 mg, digoxin 125 mcg, Eliquis 5 mg twice daily. Tobacco use disorder: Does not want patches, continue nicotine gum while admitted 2 mg as needed every 2-4 hours Chronic pain: Continue hydrocodone 10/325 every 6hrs as needed Right leg lesion: Continue topical mupirocin twice daily Full code Regular diet Eliquis twice daily
--- NOTE | 2025-03-20 20:44 | ECG_ITS ---
APPROVED REPORT Exam: Resting ECG HR:81 bpm ECG Measurements Heart Rate 81 AXES IL 140 P 63 QRSd 90 QRS -67 QT 382 T -8 QTc 420 Conclusion SINUS RHYTHM WITH FREQUENT SUPRAVENTRICULAR PREMATURE COMPLEXES IN A BIGEMINAL PATTERN LEFT AXIS DEVIATION [QRS AXIS < -30] SEPTAL MYOCARDIAL INFARCTION , OF INDETERMINATE AGE [40+ ms Q WAVE IN V1/V2] ABNORMAL ECG UNCONFIRMED REPORT Electronically signed by : Fito Connelly MD 03/22/2025 08:38:27
[2025-03-20] MEDS: LEVOFLOXACIN/D5W 750 MG/150 ML 750 MG/150 ML PIGGYBACK 100 MG IV (21:41)
[2025-03-20] MEDS: IRBESARTAN 75MG TABLET 37.5 MG PO (21:50)
[2025-03-20] MEDS: METOPROLOL SUCCINATE XL 100MG TABLET 100 MG PO (21:50)
[2025-03-20] MEDS: APIXABAN 5MG TABLET 5 MG PO (23:05)
[2025-03-20 23:26] LABS: Troponin I < 0.01 ng/ml (0.00-0.034)
[2025-03-20] MEDS: IPRATROPIUM/ALBUTEROL 3 ML NEB IH (23:29)
[2025-03-21] VITALS (12 sets, daily range): BP systolic 153–189; BP diastolic 66–82; PULSE 78–86; RESP 16–24; TEMP 36.4; O2SAT 91–97; BMI 24.9
--- NOTE | 2025-03-21 02:44 | PC.NURSE ---
Addendum entered by Shanique Montoya RN 03/21/25 04:02: R erlin Original Note:
[2025-03-21 06:30] LABS: Hematocrit 32.4 % (37.0-47.0); Hemoglobin 10.1 g/dL (12.2-16.2); Immature Granulocytes % 0.3 %; Mean Corpuscular HGB Conc 31.2 g/dL (31.8-35.4); Mean Corpuscular Hemoglobin 27.8 pg (27.0-31.2); Mean Corpuscular Volume 89.3 fl (81-99); Nucleated Red Blood Cells % 0 %; Platelet Count 281 K/mm3 (142-424); Red Blood Count 3.63 M/mm3 (4.20-5.40); Red Cell Distribution Width-SD 44.5 fL; White Blood Count 3.9 K/mm3 (4.8-10.8)
[2025-03-21 06:44] LABS: Alanine Aminotransferase 10 U/L (12-78); Albumin Level 4.0 g/dl (3.5-5.0); Albumin/Globulin Ratio 1.4 (1.1-1.8); Alkaline Phosphatase 56 U/L (38-126); Anion Gap 12.3 mEq/L (5-15); Aspartate Amino Transferase 24 U/L (14-36); Bilirubin,Total 0.3 mg/dl (0.2-1.3); Blood Urea Nitrogen 14 mg/dl (7-17); Calcium 10.4 mg/dl (8.4-10.2); Carbon Dioxide 34 mmol/L (22.0-30.0); Chloride 90 mmol/L (98-107); Creatinine Clearance Estimated 51 mL/min (50-200); Creatinine,Serum 0.70 mg/dl (0.52-1.04); Estimated Glomerular Filt Rate 83 ml/min (>60); GFR (African American) 100 ML/MIN (>60); Globulin 2.8 g/dL (1.3-3.2); Glucose 119 mg/dl (74-100); Magnesium 1.9 mg/dl (1.6-2.3); Potassium 4.3 mmoL/L (3.5-5.1); Sodium 132 mmol/L (136-145); Total Protein,Serum 6.8 g/dl (6.3-8.2)
[2025-03-21] MEDS: IPRATROPIUM/ALBUTEROL 3 ML NEB IH ×2 (06:49→12:42)
[2025-03-21] MEDS: BUDESONIDE 0.5MG/2ML NEB 0.5 MG IH (06:49)
[2025-03-21] MEDS: IRBESARTAN 150MG TAB 150 MG PO (09:21)
[2025-03-21] MEDS: POTASSIUM CHLORIDE 20MEQ TAB 20 MEQ PO (09:21)
[2025-03-21] MEDS: MUPIROCIN 2% OINTMENT 22GM TUBE TP (09:21)
[2025-03-21] MEDS: BUMETANIDE 1MG/4ML VIAL 1 MG IV (09:22)
[2025-03-21] MEDS: GABAPENTIN 800MG TABLET 800 MG PO ×2 (09:22→12:57)
[2025-03-21] MEDS: CARVEDILOL 25MG TABLET 25 MG PO (09:22)
[2025-03-21] MEDS: DIGOXIN 0.125MG TABLET 125 MCG PO (09:22)
[2025-03-21] MEDS: APIXABAN 5MG TABLET 5 MG PO (09:22)
[2025-03-21] MEDS: NICOTINE 1 EACH PO (12:25)
--- NOTE | 2025-03-21 12:40 | EXP.DC.SUM ---
General Admission date:: 03/20/25 HPI HPI HPI: Ms. Balbuena is a 70-year-old female with history significant for COPD on 2 L chronically at home, suspected lung cancer not wanting workup, current tobacco use daily, HFpEF. States that she has been feeling more short of breath over the past 2 days. Has had some increased swelling in her legs. Denies productive cough. No nausea or vomiting. Intermittent episodes of chest discomfort that resolved spontaneously. Denies any fevers. 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 Workup in the ER was found to be positive for increased CO2 above baseline at 68 on VBG with pH of 7.3. White count normal at 5.9. Kidney function normal. Magnesium low at 1.4. Calcium 11.3. CT of her chest showing masslike consolidation that appears to be worsening. Scheduled to see pulmonology next week. BNP elevated at 4200. Increase shortness of breath with slight increase in oxygen requirement on arrival. Medicine consulted for admission of acute on chronic hypercapnic respiratory failure along with suspected CHF exacerbation. Admitted to stepdown for further care. Initially placed on BiPAP. Alert and oriented x 4 on evaluation. In no acute distress on 2 L oxygen by the time she arrived to the unit. Has had at least 1 L of urine output since presentation to the ER. Initiated on Levaquin. Hospital Course Hospital Course Hospital Course: Total time spent on discharge: 32 minutes on chart review, counseling, documentation, and direct care with patient. Exam Data for Last 24 hours Vital signs and Labs for Last 24 Hours: Temp Pulse Resp BP Pulse Ox O2 Del Method O2 Flow Rate 97.5 F L 78 18 170/72 H 93 L Nasal Cannula 2 03/21/25 08:00 03/21/25 12:00 03/21/25 10:58 03/21/25 10:58 03/21/25 10:58 03/21/25 10:58 03/21/25 10:58 Laboratory Results - last 24 hr 03/20/25 16:10: WBC 5.9, RBC 3.73 L, Hgb 10.3 L, Hct 34.9 L, MCV 93.6, MCH 27.6, MCHC 29.5 L, RDW 13.7, Plt Count 266, MPV 8.7, Neut % (Auto) 54.9, Lymph % (Auto) 33.6, [place] % (Auto) 8.1, Eos % (Auto) 2.7, Baso % (Auto) 0.5, Neut # (Auto) 3.2, Lymph # (Auto) 2.0, Gosper # (Auto) 0.5, Eos # (Auto) 0.2, Baso # (Auto) 0.0, D-Dimer 0.67 H, Sodium 136, Potassium 4.6, Chloride 91 L, Carbon Dioxide 37 H, Anion Gap 12.6, BUN 12, Creatinine 0.70, Estimated Creat Clear 51, Estimated GFR 83, Est GFR ( Amer) 100, Glucose 102 H, Calcium 11.3 H, Magnesium 1.4 L, Total Bilirubin 0.3, AST 24, ALT 12, Alkaline Phosphatase 58, Troponin I < 0.01, NT-Pro-B Natriuret Pep 4280 H, Total Protein 7.4, Albumin 4.3, Globulin 3.1, Albumin/Globulin Ratio 1.4, Lipase 77 03/20/25 16:13: VBG pH 7.30 L, VBG pCO2 68.1 H, VBG pO2 35.6, VBG HCO3 33.1 H, VBG Total CO2 35.1 H, VBG O2 Saturation 61.6, VBG Base Excess 6.7 H, VBG Lactic Acid 1.7 03/20/25 16:18: SARS-CoV-2 (PCR) Not detected, Influenza A Untype (PCR) Not detected, Influenza Type B (PCR) Not detected 03/20/25 19:09: Troponin I < 0.01 03/20/25 22:42: Troponin I < 0.01 03/21/25 05:15: WBC 3.9 L D, RBC 3.63 L, Hgb 10.1 L, Hct 32.4 L, MCV 89.3, MCH 27.8, MCHC 31.2 L, RDW 13.5, Plt Count 281, MPV 8.9, Neut % (Auto) 77.0, Lymph % (Auto) 19.6, Gosper % (Auto) 2.8, Eos % (Auto) 0.0 L, Baso % (Auto) 0.3, Neut # (Auto) 3.0, Lymph # (Auto) 0.8, Gosper # (Auto) 0.1, Eos # (Auto) 0.0, Baso # (Auto) 0.0, Sodium 132 L, Potassium 4.3, Chloride 90 L, Carbon Dioxide 34 H, Anion Gap 12.3, BUN 14, Creatinine 0.70, Estimated Creat Clear 51, Estimated GFR 83, Est GFR ( Amer) 100, Glucose 119 H, Calcium 10.4 H, Magnesium 1.9 D, Total Bilirubin 0.3, AST 24, ALT 10 L, Alkaline Phosphatase 56, Total Protein 6.8, Albumin 4.0, Globulin 2.8, Albumin/Globulin Ratio 1.4 I & O for Last 24 hours: Intake & Output 03/18/25 03/19/25 03/20/25 03/21/25 23:59 23:59 23:59 23:59 Intake Total 200 / 200 530 / 530 Output Total 1900 / 1900 650 / 650 Balance -1700 / -1700 -120 / -120 Weight 59.874 kg 61.507 kg Results Data Completed and Pending Labs on day of discharge: Labs from last 24 hours 03/21/25 03/20/25 03/20/25 05:15 22:42 19:09 WBC 3.9 L D RBC 3.63 L Hgb 10.1 L Hct 32.4 L MCV 89.3 MCH 27.8 MCHC 31.2 L RDW 13.5 Plt Count 281 MPV 8.9 Neut % (Auto) 77.0 Lymph % (Auto) 19.6 Gosper % (Auto) 2.8 Eos % (Auto) 0.0 L Baso % (Auto) 0.3 Neut # (Auto) 3.0 Lymph # (Auto) 0.8 Gosper # (Auto) 0.1 Eos # (Auto) 0.0 Baso # (Auto) 0.0 D-Dimer VBG pH VBG pCO2 VBG pO2 VBG HCO3 VBG Total CO2 VBG O2 Saturation VBG Base Excess VBG Lactic Acid Sodium 132 L Potassium 4.3 Chloride 90 L Carbon Dioxide 34 H Anion Gap 12.3 BUN 14 Creatinine 0.70 Estimated Creat Clear 51 Estimated GFR 83 Est GFR ( Amer) 100 Glucose 119 H Calcium 10.4 H Magnesium 1.9 D Total Bilirubin 0.3 AST 24 ALT 10 L Alkaline Phosphatase 56 Troponin I < 0.01 < 0.01 NT-Pro-B Natriuret Pep Total Protein 6.8 Albumin 4.0 Globulin 2.8 Albumin/Globulin Ratio 1.4 Lipase SARS-CoV-2 (PCR) Influenza A Untype (PCR) Influenza Type B (PCR) 03/20/25 03/20/25 03/20/25 16:18 16:13 16:10 WBC 5.9 RBC 3.73 L Hgb 10.3 L Hct 34.9 L MCV 93.6 MCH 27.6 MCHC 29.5 L RDW 13.7 Plt Count 266 MPV 8.7 Neut % (Auto) 54.9 Lymph % (Auto) 33.6 Gosper % (Auto) 8.1 Eos % (Auto) 2.7 Baso % (Auto) 0.5 Neut # (Auto) 3.2 Lymph # (Auto) 2.0 Gosper # (Auto) 0.5 Eos # (Auto) 0.2 Baso # (Auto) 0.0 D-Dimer 0.67 H VBG pH 7.30 L VBG pCO2 68.1 H VBG pO2 35.6 VBG HCO3 33.1 H VBG Total CO2 35.1 H VBG O2 Saturation 61.6 VBG Base Excess 6.7 H VBG Lactic Acid 1.7 Sodium 136 Potassium 4.6 Chloride 91 L Carbon Dioxide 37 H Anion Gap 12.6 BUN 12 Creatinine 0.70 Estimated Creat Clear 51 Estimated GFR 83 Est GFR ( Amer) 100 Glucose 102 H Calcium 11.3 H Magnesium 1.4 L Total Bilirubin 0.3 AST 24 ALT 12 Alkaline Phosphatase 58 Troponin I < 0.01 NT-Pro-B Natriuret Pep 4280 H Total Protein 7.4 Albumin 4.3 Globulin 3.1 Albumin/Globulin Ratio 1.4 Lipase 77 SARS-CoV-2 (PCR) Not detected Influenza A Untype (PCR) Not detected Influenza Type B (PCR) Not detected DS: Diagnosis Discharge Diagnosis (1) Acute on chronic heart failure with preserved ejection fraction (HFpEF): Status: Acute Code(s): I50.33 - Acute on chronic diastolic (congestive) heart failure (2) Acute exacerbation of chronic obstructive pulmonary disease: Status: Acute Code(s): J44.1 - Chronic obstructive pulmonary disease with (acute) exacerbation (3) Hypercapnic respiratory failure: Status: Acute Code(s): J96.92 - Respiratory failure, unspecified with hypercapnia Qualifiers: Chronicity: acute on chronic Qualified Code(s): J96.22 - Acute and chronic respiratory failure with hypercapnia (4) Smoking greater than 30 pack years: Status: Chronic Code(s): F17.210 - Nicotine dependence, cigarettes, uncomplicated (5) Tobacco abuse disorder: Status: Chronic Code(s): Z72.0 - Tobacco use (6) COPD (chronic obstructive pulmonary disease): Status: Chronic Code(s): J44.9 - Chronic obstructive pulmonary disease, unspecified Qualifiers: COPD type: emphysema Emphysema type: panlobular Qualified Code(s): J43.1 - Panlobular emphysema (7) HTN (hypertension): Status: Acute Code(s): I10 - Essential (primary) hypertension Qualifiers: Hypertension type: primary hypertension Qualified Code(s): I10 - Essential (primary) hypertension (8) Atrial fibrillation: Status: Acute Code(s): I48.91 - Unspecified atrial fibrillation Qualifiers: Atrial fibrillation type: paroxysmal Qualified Code(s): I48.0 - Paroxysmal atrial fibrillation Meds Home Medications and Allergies Home Medications ?Medication ?Instructions ?Recorded ?Confirmed ?Type albuterol sulfate 90 mcg/actuation 2 inh inhalation Q6HP PRN 04/15/24 03/20/25 History aerosol inhaler Shortness Of Breath montelukast 10 mg tablet 10 mg PO PM 04/15/24 03/20/25 History digoxin 125 mcg (0.125 mg) tablet 125 mcg PO DAILY #30 tabs 12/01/24 03/20/25 Rx apixaban 5 mg tablet (Eliquis) 5 mg PO BID 01/28/25 03/20/25 History losartan 100 mg tablet 100 mg PO DAILY 01/28/25 03/20/25 History alprazolam 1 mg tablet 1 mg PO BID 03/01/25 03/20/25 History celecoxib 50 mg capsule 50 mg PO DAILY 03/20/25 03/20/25 History ciclopirox 0.77 % topical cream 0 applic topical BID 03/20/25 03/20/25 History gabapentin 800 mg tablet 800 mg PO TID 03/20/25 03/20/25 History hydrocodone 10 mg-acetaminophen 10 - 325 tab PO QID 03/20/25 03/20/25 History 325 mg tablet bumetanide 1 mg tablet 1 mg PO DAILY #30 tabs 03/21/25 Rx carvedilol 25 mg tablet 25 mg PO BID 30 days #60 tabs 03/21/25 Rx spironolactone 25 mg tablet 25 mg PO DAILY 30 days #30 tabs 03/21/25 Rx New Prescriptions to Start Prescriptions: bumetanide Sulaiman Butt carvedilol Sulaiman Butt spironolactone Sulaiman Butt Allergies Allergy/AdvReac Type Severity Reaction Status Date / Time No Known Allergies Allergy Verified 03/18/25 11:45 Discharge Plan Disposition Patient Disposition: Home, Self-Care Condition: Fair Discharge Order Discharge Orders: Discharge Order (Routine); Ordered 03/21/25 Ordered By: Sulaiman Butt Follow up Plan Follow up with: Srini Gan MD [Physician, Pulmonology] - Enter time for follow up Olga (ED)Stephanie APRN [Emergency Midlevel Provider, Emergency Medicine] - Enter time for follow up Enmanuel Rosas PA [Physician Pressure Tester, Cardiology] - Enter time for follow up Prescriptions/Medication Reconciliation: New carvedilol 25 mg Tablet 25 mg PO BID 30 Days Qty: 60 0RF bumetanide 1 mg tablet 1 mg PO DAILY Qty: 30 0RF spironolactone 25 mg tablet 25 mg PO DAILY 30 Days Qty: 30 0RF Continued alprazolam 1 mg tablet 1 mg PO BID hydrocodone-acetaminophen 10-325 mg tablet 10 - 325 tab PO QID Patient Comments: TAKE 1 TABLET BY MOUTH EVERY 6 HOURS gabapentin 800 mg tablet 800 mg PO TID Patient Comments: TAKE 1 TABLET BY MOUTH 3 TIMES A DAY ciclopirox 0.77 % cream 0 applic TOPICAL BID Patient Comments: APPLY TO THE AFFECTED AREA(S) 2 TIMES A DAY FOR fungal nails FOR 6 MONTHS celecoxib 50 mg capsule 50 mg PO DAILY montelukast 10 mg tablet 10 mg PO PM albuterol sulfate 90 mcg/actuation HFA aerosol inhaler 2 inh INHALATION Q6HP PRN (Reason: Shortness Of Breath) digoxin 125 mcg (0.125 mg) tablet 125 mcg PO DAILY Qty: 30 0RF losartan 100 mg tablet 100 mg PO DAILY Patient Comments: TAKE 1 TABLET BY MOUTH ONCE A DAY Eliquis 5 mg Tablet 5 mg PO BID Discontinued furosemide [Lasix] 40 mg tablet 40 mg PO DAILY Qty: 30 3RF potassium chloride 20 mEq tablet,ER particles/crystals 20 meq PO BID calcium carbonate-vitamin D3 600 mg-5 mcg (200 unit) tablet 200 tab PO BID Patient Comments: TAKE ONE TABLET BY MOUTH 2 TIMES A DAY WITH A MEAL metoprolol succinate 100 mg Tablet Extended Release 24 Hr 100 mg PO HS 30 Days Qty: 30 0RF Problem Reconciliation Problems Reviewed?: Yes Patient Discharge Instructions Additional Instructions: - Please follow-up with cardiology for your heart failure. - Follow-up with pulmonology for your COPD. - Lasix has been switched to Bumex for your diuretic. Started spironolactone which is also a diuretic. - Metoprolol has been switched to carvedilol which will help control your blood pressures better. - Stop taking your vitamin D and calcium as your calcium levels are high. - Stop taking potassium supplementation because your new medication spironolactone helps increase potassium levels. Print Language: [place] Providers Primary Care Provider: Stephanie Espinoza Admit Provider: Sulaiman Butt Attending Provider: Sulaiman Butt
[2025-03-21] MEDS: SODIUM CHLORIDE 3% 15ML NEB 3 ML IH (12:42)
--- NOTE | 2025-03-22 10:58 | SW/DCPLANNER ---
Spoke with patient on the phone. Patient stated that she is doing well. Patient stated that she is aware of her upcoming appointments. Patient stated that she is going to get her new medicines picked up today. Patient stated that she has no concerns or questions at this time. Leonel Thomas
== END 2025-03-21 14:27 | disposition home or self-care (01) ==
LOC: ER 18:52 → ICU 03-21 00:16
PROVIDERS: Admitting Provider Student in an Organized Health Care Education/Training Program; Emergency Provider Student in an Organized Health Care Education/Training Program; PCP Nurse Practitioner; Visit Provider Student in an Organized Health Care Education/Training Program
DX: I11.0 Hypertensive heart disease with heart failure (principal); I50.33 Acute on chronic diastolic (congestive) heart failure; J44.1 Chronic obstructive pulmonary disease with (acute) exacerbation; J96.22 Acute and chronic respiratory failure with hypercapnia; J43.1 Panlobular emphysema; I48.0 Paroxysmal atrial fibrillation; J96.11 Chronic respiratory failure with hypoxia; G89.29 Other chronic pain; K44.9 Diaphragmatic hernia without obstruction or gangrene; N28.1 Cyst of kidney, acquired; F17.210 Nicotine dependence, cigarettes, uncomplicated; L98.9 Disorder of the skin and subcutaneous tissue, unspecified; R91.8 Other nonspecific abnormal finding of lung field; M48.54XA Collapsed vertebra, not elsewhere classified, thoracic region, initial encounter for fracture; M47.812 Spondylosis without myelopathy or radiculopathy, cervical region; Z85.41 Personal history of malignant neoplasm of cervix uteri; Z86.711 Personal history of pulmonary embolism; Z79.1 Long term (current) use of non-steroidal anti-inflammatories (NSAID); Z79.01 Long term (current) use of anticoagulants; Z79.891 Long term (current) use of opiate analgesic; Z79.899 Other long term (current) drug therapy
CPT/HCPCS: 36415; 71045; 71275; 80053; 82803; 83690; 83735; 83880; 84484; 85025; 85378; 87636; 89220; 93005; 94640; 94760; 96365; 96366; 96367; 96375; 96376; 99285; G0378; J1100; J1938; J1939; J1956; J3475; Q9967

== ENCOUNTER 2025-03-31 15:32 | Emergency (ER) | payer MEDICARE, SELFPAY ==
[2025-03-31 15:39] VITALS: BP 143/79; PULSE 84; RESP 20; TEMP 36.9; O2SAT 97; BMI 24.7
--- NOTE | 2025-03-31 15:42 | ED_ITS ---
<Statement entered by Tammy Neal DO - 04/01/25 21:58> I was consulted by the ASHOK, and we discussed the complexity of problems being addressed. I approve the treatment and management plan for this patient's care in the emergency department, thus performing a substantial portion of the medical decision making. Tammy Neal DO Discharge Plan Disposition Patient Disposition: Home, Self-Care Condition: Good Prescriptions Prescriptions: New dicyclomine 20 mg tablet 20 mg PO TID Qty: 21 0RF No Action doxycycline hyclate 100 mg capsule 100 mg PO BID Patient Comments: TAKE 1 CAPSULE BY MOUTH 2 TIMES A DAY FOR 14 DAYS FOR INFECTION calcium carbonate-vitamin D3 600 mg-5 mcg (200 unit) tablet 1 tab PO BID Patient Comments: TAKE ONE TABLET BY MOUTH 2 TIMES A DAY WITH A MEAL cholecalciferol (vitamin D3) 1,250 mcg (50,000 unit) capsule 50,000 unit PO WEEKLY Patient Comments: TAKE 1 CAPSULE BY MOUTH ONCE WEEKLY ipratropium-albuterol 0.5 mg-3 mg(2.5 mg base)/3 mL solution for nebulization 3 ml inhalation QID PRN (Reason: shortness of breath or wheezing) 90 Days Qty: 270 3RF azithromycin 250 mg tablet 250 mg PO QMWF Qty: 45 2RF Trelegy Ellipta 100-62.5-25 mcg blister with device 1 inh inhalation DAILY 90 Days Qty: 90 2RF alprazolam 1 mg tablet 1 mg PO BID hydrocodone-acetaminophen 10-325 mg tablet 10 - 325 tab PO QID Patient Comments: TAKE 1 TABLET BY MOUTH EVERY 6 HOURS gabapentin 800 mg tablet 800 mg PO TID Patient Comments: TAKE 1 TABLET BY MOUTH 3 TIMES A DAY ciclopirox 0.77 % cream 0 applic TOPICAL BID Patient Comments: APPLY TO THE AFFECTED AREA(S) 2 TIMES A DAY FOR fungal nails FOR 6 MONTHS celecoxib 50 mg capsule 50 mg PO DAILY carvedilol 25 mg Tablet 25 mg PO BID 30 Days Qty: 60 0RF bumetanide 1 mg tablet 1 mg PO DAILY Qty: 30 0RF spironolactone 25 mg tablet 25 mg PO DAILY 30 Days Qty: 30 0RF montelukast 10 mg tablet 10 mg PO PM albuterol sulfate 90 mcg/actuation HFA aerosol inhaler 2 inh INHALATION Q6HP PRN (Reason: Shortness Of Breath) digoxin 125 mcg (0.125 mg) tablet 125 mcg PO DAILY Qty: 30 0RF losartan 100 mg tablet 100 mg PO DAILY Patient Comments: TAKE 1 TABLET BY MOUTH ONCE A DAY Eliquis 5 mg Tablet 5 mg PO BID Activity Restrictions/Add. Instructions Additional Instructions/Restrictions: You were evaluated on an emergency basis. It is very important that you follow- up with your primary care provider and any specialist who we discussed within the next 2 days in order to better assess your health more comprehensively. For example, incidental findings on imaging or laboratory results that were performed today may be discovered, which do not require immediate medical care, but may impact your health in the future. If your symptoms worsen or persist, please return to the emergency department immediately for reassessment. Take all medications as prescribed. In queue for allowing me to participate in your health care, and I hope you feel better soon. Clinical Impressions Clinical Impression: Abdominal pain, COPD (chronic obstructive pulmonary disease), Hypomagnesemia Instructions Patient Instructions: DI for Acute Abdominal Pain Print Language Print Language: Azerbaijani Discharge ED Provider: Tammy Neal Adult HPI General Chief complaint: Abdominal Pain Stated complaint: abd pain Time Seen by Provider: 03/31/25 15:42 History of Present Illness HPI narrative: 70-year-old female with a history of COPD presents to the emergency department with complaints of intermittent abdominal pain for the past 2 weeks. Reports the pain has been consistent for the past 3 days. She denies nausea, vomiting, diarrhea, fever, or constipation. She also reports shortness of breath. He states that she has a history of COPD and wears 2 to 2-1/2 L via nasal cannula at baseline. Patient arrives via EMS after receiving a DuoNeb and is currently on 2 L via nasal cannula with an SpO2 reading of 97%. Related Data Home Medications ?Medication ?Instructions ?Recorded ?Confirmed albuterol sulfate 90 mcg/actuation 2 inh inhalation Q6 HP PRN 04/15/24 03/24/25 aerosol inhaler Shortness Of Breath montelukast 10 mg tablet 10 mg PO PM 04/15/24 5 apixaban 5 mg tablet (Eliquis) 5 mg PO BID 01/28/25 losartan 100 mg tablet 100 mg PO DAILY 01/28/2505/08 alprazolam 1 mg tablet 1 mg PO BID 03/01/25 5 celecoxib 50 mg capsule 50 mg PO DAILY 03/20/2503/15 ciclopirox 0.77 % topical cream 0 applic topical BID 0 03/20/25 03/24/25 gabapentin 800 mg tablet 800 mg PO TID 03/20/2503/24 hydrocodone 10 mg-acetaminophen 10 - 325 tab PO QID 03/24/25 325 mg tablet calcium 600 mg (as 1 tab PO BID 03/24/25 carbonate)-vitamin D3 5 mcg (200 unit) tablet cholecalciferol (vitamin D3) 1,250 50,000 unit PO WEEK LY 03/24/25 03/24/25 mcg (50,000 unit) capsule doxycycline hyclate 100 mg capsule 100 mg PO BID 03/2403/24/25 Previous Rx's ?Medication ?Instructions ?Recorded digoxin 125 mcg (0.125 mg) tablet 125 mcg PO DAILY #30 tabs 12/01/24 bumetanide 1 mg tablet 1 mg PO DAILY #30 tabs 03/21 carvedilol 25 mg tablet 25 mg PO BID 30 days #60 tab s 03/21/25 spironolactone 25 mg tablet 25 mg PO DAILY 30 days #30 tabs 03/21/25 azithromycin 250 mg tablet 250 mg PO QMWF #45 tabs 05/08 fluticasone fur. 100 mcg-umeclid 1 inh inhalation NGOZI Y 90 days #90 03/24/25 62.5 mcg-vilant 25 mcg ea inhalat.powder (Trelegy Ellipta) ipratropium 0.5 mg-albuterol 3 mg 3 ml inhalation QID PRN shortness 03/24/25 (2.5 mg base)/3 mL nebulization of breath or wheezing 90 days #270 soln mL dicyclomine 20 mg tablet 20 mg PO TID #21 tabs Allergies Allergy/AdvReac Type Severity Reaction Status Date / Time No Known Allergies Allergy Verified 03/24/25 13:16 [facility] Disclaimer: The information contained in this section may have been updated after the patient was seen, as this information can be updated by other users. Medical History Unspecified disturbances of skin sensation Other specified symptoms and signs involving the circulatory and respiratory systems HTN (hypertension) HLD (hyperlipidemia) Pneumonia Fecal occult blood test positive Sepsis without septic shock Lymphedema Physical deconditioning General weakness Lung mass Hypomagnesemia Acute hypokalemia Chronic hyponatremia Generalized weakness COPD mixed type Lung nodule Hypokalemia Elevated troponin Nocturnal hypoxemia Pulmonary emphysema Incidental pulmonary nodule, greater than or equal to 8mm Smoking greater than 30 pack years Dyspnea on exertion Tobacco abuse disorder Tobacco abuse counseling Cervical cancer Surgical History History of dilation and curettage History of back surgery Family History Other Diabetes Social History Smoking Status: Current every day smoker tobacco type: cigarettes packs per day: 2 second hand exposure: Yes alcohol intake: never substance use type: denies use current occupational status: unemployed Travel in the last 8 weeks?: None household members: spouse housing: house current occupational exposures/hazards: No Have you lived/traveled outside US in past 30 days?: No Contact w/someone who lives/traveled outside US past 30 days?: No Exposure to someone with infectious disease in past 14 days?: No Do you have a fever (greater than 100.4 F or 38 C)?: No Have you tested positive for COVID-19?: No Exposed to someone with COVID-19 in past 14 days?: No Do you have a sore throat?: No Do you have a cough?: No Do you have any weakness?: No Do you have any diarrhea?: No Are you experiencing any unusual bleeding?: No Do you have any muscle aches/pain?: No Do you have any abdominal pain?: No Are you experiencing loss of taste or smell?: No Other Medical History Have you received the Flu Vaccine for this season: No (not in season) Have you received the Pneumonia Vaccine: Yes ROS Obtained: Yes other Respiratory Respiratory: Reports shortness of breath Gastrointestinal Gastrointestingal: Reports abdominal pain Physical Exam Narrative Physical exam: General: Awake, aware, in no acute distress HEENT: Normocephalic, no evidence of trauma CV: RRR, no murmurs, rubs, or gallops Pulm: Mild wheezing bilaterally. ABD: Abdomen is soft on palpation with diffuse tenderness on palpation with normal active bowel sounds. Psych, appropriate mood and affect General General appearance: alert Respiratory Respiratory exam: Present normal lung sounds bilaterally Cardiovascular Cardiovascular exam: Present regular rate Neurological Exam Neurological exam: Present alert Medical Decision Making Medical Records Screening: Per USPSTF and CDC recommendations, given the prevalence of disease in our region, it is our hospital?s policy to screen for HIV and viral Hepatitis for all patients aged 18 and over and those with ongoing risk factors. Azael Inquiry Pt receiving controlled substance: No Vital Signs: 03/31/25 15:39 03/31/25 15:39 03/31/25 16:01 Temperature 98.5 F 98.5 F Temperature Source Oral Pulse Rate 84 88 Pulse Rate [Right] 84 Respiratory Rate 20 20 Blood Pressure 143/79 H 135/75 Blood Pressure [Right Arm] 143/79 H Blood Pressure Mean [Right Arm] 100 02 Sat by Pulse Oximetry 97 97 92 L Oxygen Delivery Method Nasal Cannula Oxygen Flow Rate (LPM) 2 03/31/25 16:30 03/31/25 17:00 Temperature Temperature Source Pulse Rate 88 87 Pulse Rate [Right] Respiratory Rate Blood Pressure 141/65 H 135/74 Blood Pressure [Right Arm] Blood Pressure Mean [Right Arm] 02 Sat by Pulse Oximetry 91 L 90 L Oxygen Delivery Method Oxygen Flow Rate (LPM) Lab Data Lab Results 03/31/25 15:09: WBC 8.1, RBC 3.62 L, Hgb 10.2 L, Hct 32.8 L, MCV 90.6, MCH 28.2, MCHC 31.1 L, RDW 13.6, Plt Count 256, MPV 9.3, Neut % (Auto) 63.3, Lymph % (Auto) 27.5, [place] % (Auto) 7.4, Eos % (Auto) 1.0, Baso % (Auto) 0.6, Neut # (Auto) 5.1, Lymph # (Auto) 2.2, [place] # (Auto) 0.6, Eos # (Auto) 0.1, Baso # (Auto) 0.1, Sodium 132 L, Potassium 5.6 H, Chloride 88 L, Carbon Dioxide 36 H, Anion Gap 13.6, BUN 15, Creatinine 0.70, Estimated Creat Clear 51, Estimated GFR 83, Est GFR ( Amer) 100, Glucose 140 H, Calcium 9.9, Magnesium 1.3 L, Total Bilirubin 0.7, AST 43 H, ALT 11 L, Alkaline Phosphatase 27 L, Total Protein 6.8, Albumin 4.2, Globulin 2.6, Albumin/Globulin Ratio 1.6, Lipase 88 03/31/25 18:06: Urine Color Yellow, Urine Appearance Clear, Urine pH 6.0, Ur Specific [place] 1.010, Urine Protein Negative, Urine Glucose (UA) Negative, Urine Ketones Negative, Urine Blood Negative, Urine Nitrate Negative, Urine Bilirubin Negative, Urine Urobilinogen 0.2, Ur Leukocyte Esterase Negative 03/31/25 15:09 03/31/25 15:09 Orders (Tests/Meds): ED MEDICATIONS Generic Name Dose Route Start Last Admin Trade Name Anatoly PRN Reason Stop Dose Admin Sodium Chloride 10 ml 03/31/25 17:29 03/31/25 17:30 Sodium Chloride 0.9% 10ml Syr (Rad Only) IV 04/30/25 17:28 10 ml NEEDED PRN Administration Maintain IV Site Discontinued Medications Generic Name Dose Route Start Last Admin Trade Name Freq PRN Reason Stop Dose Admin Albuterol Sulfate 2.5 mg 03/31/25 16:06 03/31/25 16:20 Albuterol 0.083% 2.5 Mg/3 Ml Neb IH 03/31/25 16:07 2.5 mg ONCE ONE Administration Iopamidol 75 ml 03/31/25 17:29 03/31/25 17:29 Iopamidol-370 (76%);100ml Bottle IV 03/31/25 17:30 75 ml ONCE ONE Administration Ketorolac Tromethamine 15 mg 03/31/25 15:51 03/31/25 16:20 Ketorolac 15mg/Ml Vial IV 03/31/25 15:52 15 mg ONCE ONE Administration Magnesium Oxide 400 mg 03/31/25 17:10 03/31/25 17:59 Magnesium Oxide 400mg Tablet PO 03/31/25 17:11 400 mg DAILY ONE Administration ORDERS Category Date Time Status CT abdomen pelvis w con Stat Cat Scan 03/31/25 15:51 Completed XR chest portable Stat Exams 03/31/25 15:51 Completed CBC w/Auto Diff [Complete Blood Count Auto Diff] Stat Lab 03/31/25 15:09 Completed CMP [Comprehensive Metabolic Panel] Stat Lab 03/31/25 15:09 Completed Lipase Stat Lab 03/31/25 15:09 Completed Magnesium Stat Lab 03/31/25 15:09 Completed Urinalysis and Microscopic Stat Lab 03/31/25 18:06 Results Urine Culture Stat Micro 03/31/25 18:06 Received Medical Decision Narrative: Initial impression of presenting illness: 70-year-old female with a history of COPD presents emergency department complaints of diffuse intermittent abdominal pain for the past 2 weeks. She reports over the past 3 days the pain has been consistent. She denies nausea, vomiting, diarrhea, fevers or urinary symptoms. She also reports that she has had shortness of breath. She wears 2 to 2-1/2 L of oxygen via nasal cannula at baseline. She received a DuoNeb via EMS prior to arrival. Upon arrival she is currently on 2 L via nasal cannula with SpO2 reading of 97%. She reports that she does still smoke. Differential diagnosis includes but is not limited to: Constipation, gastroenteritis, diverticulitis, urinary tract infection, ileus, bowel obstruction, COPD exacerbation Patient arrives hemodynamically stable, afebrile, without respiratory distress with vital signs interpreted by myself. Initial physical exam reveals diffuse abdominal tenderness on palpation however abdomen is soft with normal active bowel sounds. Patient does have mild wheezing bilaterally. Patient also has 1+ pitting edema to bilateral lower extremities. That exam is unremarkable. Initial diagnostic plan: Abdominal pain workup, albuterol neb, chest x-ray Results from initial plan were reviewed and interpreted by myself, pertinent positives include: Magnesium was 1.3, rest of laboratory studies were nonactionable. Urinalysis was negative for signs of urinary tract infection. Chest x-ray shows changes consistent with COPD but no acute abnormalities were noted. CT of abdomen pelvis with IV contrast was also unremarkable for acute abnormalities. EKG shows normal sinus rhythm with occasional PVCs with a rate of 88 no ischemic changes noted. Interventions in the ED: Patient was given oral magnesium for supplementation. She was also given Toradol for pain control. Patient was also kept on supplemental oxygen to maintain her SpO2 reading greater than 90%. Patient was made aware of the results and the findings, upon reevaluation patient has remained stable throughout stay, symptoms remain stable. Upon reevaluation patient is resting comfortably in bed with no signs of acute distress. She is maintaining her SpO2 on 2 L which is her baseline oxygen requirement. She has not had any episodes of vomiting or diarrhea during the ER stay. Disposition: Reviewed findings today's workup with patient informed her other than her magnesium being slightly low the rest of her workup findings were nonactionable. Advised patient we can discharge with a prescription for Bentyl to see if that will help her abdominal pain. Recommended that she follow-up with her primary care provider for possible GI referral if symptoms do not improve. Ducted her to return to the emergency department any new or worsening symptoms including worsening abdominal pain, inability to tolerate p.o., uncontrolled fevers. Patient is agreeable to plan of care. Patient made aware of findings and had a detailed discussion with symptomatic care and return precautions, patient voiced understanding. Critical Care Critical Care Time Critical Care Time: No
--- NOTE | 2025-03-31 15:51 | XR_ITS ---
PROCEDURE INFORMATION: Exam: XR Chest Exam date and time: 03/31/2025 5:25 PM Age: 70 years old Clinical indication: Shortness of breath; Additional info: Copd TECHNIQUE: Imaging protocol: Radiologic exam of the chest. Views: 1 view. COMPARISON: CT ANGIO CHEST PE PROTOCOL 03/20/2025 5:34 PM FINDINGS: Lungs: Coarse interstitial lung markings likely chronic. COPD. No consolidation. Known right upper lobe mass seen on CT 03/20/2025 is not clearly seen. Pleural spaces: Unremarkable. No pleural effusion. No pneumothorax. Heart/Mediastinum: Unremarkable. No cardiomegaly. Bones/joints: Unremarkable. IMPRESSION: Known right upper lobe mass seen on CT 03/20/2025 is not clearly seen.
--- NOTE | 2025-03-31 15:51 | CT_ITS ---
PROCEDURE INFORMATION: Exam: CT Abdomen And Pelvis With Contrast Exam date and time: 03/31/2025 5:13 PM Age: 70 years old Clinical indication: Abdominal pain; Additional info: Diffuse abd pain TECHNIQUE: Imaging protocol: Computed tomography of the abdomen and pelvis with contrast. Radiation optimization: All CT scans at this facility use at least one of these dose optimization techniques: automated exposure control; mA and/or kV adjustment per patient size (includes targeted exams where dose is matched to clinical indication); or iterative reconstruction. Contrast material: ISOVUE; Contrast volume: 75 ml; Contrast route: IV; COMPARISON: CT ABDOMEN PELVIS W CON 01/27/2025 1:53 PM FINDINGS: Diaphragm: Small hiatal hernia Liver: Normal. No mass. Gallbladder and biliary ducts: Normal. No calcified stones. No ductal dilation. Pancreas: Normal. No ductal dilation. Spleen: Normal. No splenomegaly. Adrenal glands: Normal. No mass. Kidneys and ureters: Bilateral simple renal cyst requiring no further follow-up. No hydronephrosis. Stomach and bowel: Diverticulosis in the sigmoid without diverticulitis. Appendix: No evidence of appendicitis. Intraperitoneal space: Unremarkable. No free air. No significant fluid collection. Vasculature: Severe arthrosclerotic calcifications in the aorta resulting in high-grade stenosis of the origin of the celiac trunk, SMA and bilateral renal arteries. Lymph nodes: Unremarkable. No enlarged lymph nodes. Urinary bladder: Unremarkable as visualized. Reproductive: Unremarkable as visualized. Bones/joints: Chronic fractures of L2, T12, T11. Soft tissues: Unremarkable. IMPRESSION: No acute findings. Severe arthrosclerotic disease No GI tract obstruction or inflammation COMMENTS: Consistent with the [employer]'s Incidental Findings Committee white paper (J Am Janice Radiol 2018): Any incidental renal lesion less than 1 cm or classified as too small to characterize, or any incidental cystic renal lesion characterized as simple-appearing, is likely benign. No follow-up imaging is recommended for these lesions per consensus recommendations based on imaging criteria.
[2025-03-31 16:00] LABS: Hematocrit 32.8 % (37.0-47.0); Hemoglobin 10.2 g/dL (12.2-16.2); Immature Granulocytes % 0.2 %; Mean Corpuscular HGB Conc 31.1 g/dL (31.8-35.4); Mean Corpuscular Hemoglobin 28.2 pg (27.0-31.2); Mean Corpuscular Volume 90.6 fl (81-99); Nucleated Red Blood Cells % 0 %; Platelet Count 256 K/mm3 (142-424); Red Blood Count 3.62 M/mm3 (4.20-5.40); Red Cell Distribution Width-SD 45.0 fL; White Blood Count 8.1 K/mm3 (4.8-10.8)
[2025-03-31 16:01] VITALS: BP 135/75; PULSE 88; O2SAT 92
[2025-03-31 16:04] LABS: Albumin Level 4.2 g/dl (3.5-5.0); Chloride 88 mmol/L (98-107); Potassium 5.6 mmoL/L (3.5-5.1); Sodium 132 mmol/L (136-145)
[2025-03-31 16:06] LABS: Blood Urea Nitrogen 15 mg/dl (7-17); Creatinine Clearance Estimated 51 mL/min (50-200); Creatinine,Serum 0.70 mg/dl (0.52-1.04); Estimated Glomerular Filt Rate 83 ml/min (>60); GFR (African American) 100 ML/MIN (>60)
[2025-03-31 16:07] LABS: Alanine Aminotransferase 11 U/L (12-78); Albumin/Globulin Ratio 1.6 (1.1-1.8); Alkaline Phosphatase 27 U/L (38-126); Anion Gap 13.6 mEq/L (5-15); Aspartate Amino Transferase 43 U/L (14-36); Bilirubin,Total 0.7 mg/dl (0.2-1.3); Calcium 9.9 mg/dl (8.4-10.2); Carbon Dioxide 36 mmol/L (22.0-30.0); Globulin 2.6 g/dL (1.3-3.2); Glucose 140 mg/dl (74-100); Lipase 88 U/L (23-300); Magnesium 1.3 mg/dl (1.6-2.3); Total Protein,Serum 6.8 g/dl (6.3-8.2)
--- OUTSIDE RECORDS SUMMARY | 2025-03-31 16:08 | XMS_ITS | Clinical Summary ---
Author Organization Healthcare Address [address] [place] [address] Care Team Providers Care Bench Lathe Operator Name Role Phone Rajat Navarro MD Primary Care Provider [phone] Social History Tobacco Use Types Packs/Day Years [...] 2005 UKY-Zoster Vaccines (1 of 2) 2005 [id number] Vaccine ( - 2024- season) 2025 05/24/2021, [...] this topic Insurance [employer]IC[employer] Care Teams Bench Lathe Operator Relationship Specialty Start Date End Date Rajat Navarro MD [address] [place] [address] #1 #1 [place] [id number] PCP - General 07/15/20
[2025-03-31] MEDS: ALBUTEROL 0.083% 2.5 MG/3 ML NEB IH (16:20)
[2025-03-31] MEDS: KETOROLAC 15MG/ML VIAL 15 MG IV (16:20)
[2025-03-31 16:30] VITALS: BP 141/65; PULSE 88; O2SAT 91
--- NOTE | 2025-03-31 16:44 | ECG_ITS ---
APPROVED REPORT Exam: Resting ECG HR:88 bpm ECG Measurements Heart Rate 88 AXES AK 150 P 91 QRSd 90 QRS -80 QT 319 T 35 QTc 365 Conclusion SINUS RHYTHM WITH OCCASIONAL SUPRAVENTRICULAR PREMATURE COMPLEXES LEFT AXIS DEVIATION [QRS AXIS < -30] PATTERN CONSISTENT WITH PULMONARY DISEASE ABNORMAL ECG UNCONFIRMED REPORT Electronically signed by : JANICE BURROUGHS, 04/01/2025 06:37:25
[2025-03-31 17:00] VITALS: BP 135/74; PULSE 87; O2SAT 90
[2025-03-31] MEDS: IOPAMIDOL-370 (76%);100ML BOTTLE 75 ML IV (17:29)
[2025-03-31] MEDS: SODIUM CHLORIDE 0.9% 10ML SYR (RAD ONLY) 10 ML IV (17:30)
[2025-03-31] MEDS: MAGNESIUM OXIDE 400MG TABLET 400 MG PO (17:59)
[2025-03-31 18:11] LABS: Microscopic, Urine URINE MICROSCOPIC (MICROSCOPIC)
[2025-03-31 18:14] LABS: Bilirubin,Urine Negative (Negative); Color,Urine YELLOW (Yellow); Glucose,Urine (UA) Negative (Negative); Ketones,Urine Negative (Negative); Leukocyte Esterase,Urine Negative (Negative); PH,Urine 6.0 (5.0-8.5); Protein,Urine Negative (Negative); Specific Gravity, Urine 1.010 (1.005-1.030); Urobilinogen,Urine 0.2 EU/dl (0.2)
[2025-03-31 18:34] LABS: Bacteria,Urine 1+ /lpf
[2025-03-31 19:09] VITALS: BP 171/89; PULSE 85; RESP 18; TEMP 36.9; O2SAT 96
== END 2025-03-31 19:15 | disposition home or self-care (01) ==
PROVIDERS: Nurse Practitioner Family; Emergency Provider Student in an Organized Health Care Education/Training Program
DX: R10.9 Unspecified abdominal pain (principal); E83.42 Hypomagnesemia; E87.5 Hyperkalemia; E87.1 Hypo-osmolality and hyponatremia; J44.9 Chronic obstructive pulmonary disease, unspecified; F17.210 Nicotine dependence, cigarettes, uncomplicated; Z99.81 Dependence on supplemental oxygen
CPT/HCPCS: 71045; 74177; 80053; 81001; 83690; 83735; 85025; 87086; 93005; 96374; 99285; J1885; Q9967

== ENCOUNTER 2025-04-14 14:28 | Observation (INO) | payer MEDICARE, SELFPAY ==
[2025-04-14] VITALS (26 sets, daily range): BP systolic 162–227; BP diastolic 81–124; PULSE 88–107; RESP 18–20; TEMP 36.7; O2SAT 79–100; BMI 24.7
--- OUTSIDE RECORDS SUMMARY | 2025-04-14 14:42 | XMS_ITS | Clinical Summary ---
Author Organization [facility] Address [address] [place] [address] Phone Care Team Providers Care Director Pharmaceutical Name Role Phone Unavailable Unavailable Conditions or Problems No information available. Medications No information available. Medications Administered No information available. Allergies, Adverse Reactions, Alerts No information available. Results No information available. Plan of Care No information available. Procedures No information available. Vital Signs No information available. Immunizations No information available. Advance Directives No information available.
--- OUTSIDE RECORDS SUMMARY | 2025-04-14 14:42 | XMS_ITS | Clinical Summary ---
Author Organization Healthcare Address [address] [place] [address] Care Team Providers Care Occ Ther Name Role Phone Rajat Navarro MD Primary Care Provider [phone] Social History Tobacco Use Types Packs/Day Years [...] 2005 UKY-Zoster Vaccines (1 of 2) 2005 [id number] Vaccine ( - 2024- season) 2025 05/24/2021, [...] this topic Insurance [employer] MEDIC[employer] Care Teams Occ Ther Relationship Specialty Start Date End Date Rajat Navarro MD [address] [place] [address] #1 #1 [place] [id number] PCP - General 07/15/20
--- NOTE | 2025-04-14 14:47 | CT_ITS ---
PROCEDURE INFORMATION: Exam: CT Abdomen And Pelvis With Contrast Exam date and time: 04/14/2025 4:04 PM Age: 70 years old Clinical indication: Abdominal pain; Additional info: Abdominal pain, nausea, constipation TECHNIQUE: Imaging protocol: Computed tomography of the abdomen and pelvis with contrast. Radiation optimization: All CT scans at this facility use at least one of these dose optimization techniques: automated exposure control; mA and/or kV adjustment per patient size (includes targeted exams where dose is matched to clinical indication); or iterative reconstruction. Contrast material: ISOVUE; Contrast volume: 75 ml; Contrast route: IV; COMPARISON: CT ABDOMEN PELVIS W CON 03/31/2025 5:13 PM FINDINGS: Diaphragm: Moderate-sized hiatal hernia. Stomach otherwise unremarkable. Liver: Granulomatous calcifications in the liver. Mild liver contour irregularity suspicious for mild changes of cirrhosis. There are few small hepatic cysts present which do not require further evaluation. No intrahepatic biliary ductal dilatation. Gallbladder and biliary ducts: Normal. No calcified stones. No ductal dilation. Pancreas: Normal. No inflammatory changes or ductal dilation. There is a splenule adjacent to the pancreatic tail which is unchanged. Spleen: Granulomatous calcifications in the spleen without acute splenic abnormality. Adrenal glands: Normal. No adrenal mass. Kidneys and ureters: Moderate bilateral symmetrical perinephric stranding unchanged. No hydronephrosis or hydroureter. No urinary tract stones are identified. Bilateral renal cortical cysts which do not require further evaluation. Stomach and bowel: The small bowel is nondilated with no gross abnormality. No acute colonic abnormalities. Colon is largely contracted. Mild-moderate distal colonic diverticulosis without diverticulitis. Large volume stool distension of the rectum reaching 9 cm diameter, possible rectal fecal impaction. Appendix: The appendix is normal in caliber and demonstrates no evidence of appendicitis. Intraperitoneal space: No peritoneal free fluid or air. Vasculature: Severe calcific atherosclerosis . 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 Severe 70-80% stenosis of the proximal right common iliac artery. Lymph nodes: No adenopathy. Urinary bladder: Unremarkable as visualized. Reproductive: Unremarkable as visualized. Bones/joints: No acute osseous abnormalities. Osteopenia. Chronic compression fractures of L2, T12, and T11 with prior vertebroplasty again noted, unchanged. Soft tissues: Question mild generalized soft tissue stranding/edema in the peripheral subcutaneous tissues suggesting mild volume overload/systemic edema. IMPRESSION: 1. No definite acute process. 2. Moderate fecal distension of the rectum suspicious for rectal fecal impaction. 3. Mild systemic edema/anasarca with unchanged moderate symmetrical perirenal edema and presacral edema. 4. Severe calcific atherosclerosis with severe 70-80% stenosis in the proximal right common iliac artery and moderate 60-70% ostial stenosis of the celiac artery, unchanged. 5. Additional nonemergent findings detailed above. COMMENTS: Consistent with the [employer]'s Incidental Findings Committee white paper (J Am Janice Radiol 2018): Any incidental renal lesion less than 1 cm or classified as too small to characterize, or any incidental cystic renal lesion characterized as simple-appearing, is likely benign. No follow-up imaging is recommended for these lesions per consensus recommendations based on imaging criteria.
--- NOTE | 2025-04-14 14:48 | CT_ITS ---
PROCEDURE INFORMATION: Exam: CT Head Without Contrast Exam date and time: 04/14/2025 4:01 PM Age: 70 years old Clinical indication: Weakness, extremity and weakness, facial TECHNIQUE: Imaging protocol: Computed tomography of the head without contrast. Radiation optimization: All CT scans at this facility use at least one of these dose optimization techniques: automated exposure control; mA and/or kV adjustment per patient size (includes targeted exams where dose is matched to clinical indication); or iterative reconstruction. COMPARISON: CT HEAD/BRAIN WO CON 10/25/2022 1:04 PM FINDINGS: Brain: Moderate generalized cerebral/cerebellar atrophy. Moderate bilateral white matter hypodensities which are nonspecific but most commonly associated with chronic microvascular ischemia in this age group. Small chronic lacunar infarcts in the bilateral thalami and left subinsular region. Small chronic probable arachnoid cyst in the mid left parahippocampal sulcus measuring 13 x 7 x 19 mm, unchanged. The IACs are grossly normal. No extra-axial fluid collections. No evidence of acute intracranial hemorrhage. Cerebral/cerebellar colón-white matter differentiation is well maintained. No intracranial mass lesions. No midline shift or herniation. Cerebral ventricles: Mild compensatory ventriculomegaly secondary to central atrophy. Pituitary gland and sella: Partially empty sella configuration incidentally noted. Paranasal sinuses: Visualized paranasal sinuses are clear. Mastoid air cells: Visualized mastoid air cells are clear. Orbital cavities: No acute intraorbital findings. Prior bilateral ocular cataract surgery. Bones: No acute osseous findings. Soft tissues: No acute soft tissue findings. Vasculature: Severe calcific atherosclerosis. No asymmetric vascular hyperdensities suggestive of thrombosis are identified. IMPRESSION: 1. No acute intracranial process. No intracranial hemorrhage or mass effect. No gross change from 10/25/2022. 2. Atrophy and microvascular changes consistent with advanced age. 3. Severe calcific atherosclerosis.
--- NOTE | 2025-04-14 14:48 | XR_ITS ---
PROCEDURE INFORMATION: Exam: XR Chest Exam date and time: 04/14/2025 4:08 PM Age: 70 years old Clinical indication: Shortness of breath; Additional info: Shortness of air TECHNIQUE: Imaging protocol: Radiologic exam of the chest. Views: 1 view. COMPARISON: CT ANGIO CHEST PE PROTOCOL 04/14/2025 4:04 PM FINDINGS: Lungs: Mild pulmonary hyperexpansion and hyperlucency with mild diaphragmatic flattening suggesting possible COPD. Pulmonary vasculature grossly normal. Right suprahilar alveolar opacity concerning for pneumonia versus atelectasis. Pleural spaces: No pleural effusion. No pneumothorax. Heart/Mediastinum: Heart size normal. No tracheal/mediastinal shift. Vasculature: Moderate calcific atherosclerosis. Bones/joints: No acute osseous abnormalities are identified. Osteopenia. IMPRESSION: 1. Mild right suprahilar alveolar opacity, pneumonia versus atelectasis. 2. COPD.
--- NOTE | 2025-04-14 14:48 | CT_ITS ---
PROCEDURE INFORMATION: Exam: CTA Chest With Contrast Exam date and time: 04/14/2025 4:04 PM Age: 70 years old Clinical indication: Shortness of breath TECHNIQUE: Imaging protocol: Computed tomographic angiography of the chest with contrast. Exam focused on the arteries. 3D rendering (Not supervised by radiologist): MIP and/or 3D reconstructed images were created by the technologist. Radiation optimization: All CT scans at this facility use at least one of these dose optimization techniques: automated exposure control; mA and/or kV adjustment per patient size (includes targeted exams where dose is matched to clinical indication); or iterative reconstruction. Contrast material: ISOVUE; Contrast volume: 80 ml; Contrast route: INTRAVENOUS (IV); COMPARISON: CT ANGIO CHEST PE PROTOCOL 03/20/2025 5:34 PM FINDINGS: Pulmonary arteries: The pulmonary arteries enhance appropriately with no evidence of pulmonary embolism. Mild dilatation of the central pulmonary arteries suggesting pulmonary arterial hypertension. Aorta: The aorta demonstrates mild ectasia/tortuosity and severe calcific atherosclerosis. No aortic aneurysm or dissection. No mediastinal hematoma. Thyroid: The visualized thyroid gland demonstrates no gross abnormality. Lungs: Mild central bronchial wall thickening bilaterally suspicious for mild bronchitis or bronchial edema. Mild-moderate centrilobular emphysematous changes again noted. Moderate chronic fibrosis in the left apex and left lower lobe superior segment. Spiculated 2.5 x 2.8 x 2 cm rounded density in the posteromedial right upper lobe series 7, image 43 is slightly increased in size from 02/28/2025, with additional patchy alveolar opacities inferolateral to this. This could represent neoplasm or organizing pneumonia. Consider PET-CT or biopsy to further characterize. Pleural spaces: No pleural effusion. No pneumothorax. Heart: Heart size normal. Minimal pericardial fluid without christiano pericardial effusion. Coronary arteries: Moderate coronary artery calcification. Lymph nodes: No supraclavicular or axillary adenopathy. Borderline enlarged pretracheal retrocaval node and borderline enlarged right hilar node, nonspecific. Diaphragm: Moderate-sized hiatal hernia. Small metallic densities in the mid esophageal segment unchanged in position from 03/20/2025 and 02/28/2025, presumably clips, correlate with procedural history. Liver: Granulomatous calcifications in the liver. Spleen: Granulomatous calcifications in the spleen. Kidneys: Moderate bilateral symmetrical perinephric stranding unchanged, possibly perirenal edema. Small renal cortical cysts which do not require further evaluation. Bones/joints: No acute osseous abnormalities. Osteopenia. Chronic lower anterior left rib fractures. Moderate thoracic spondylosis. Chronic moderate-severe compression fractures with prior vertebroplasty T11, T12, and L2 are unchanged. Soft tissues: No acute soft tissue abnormalities. IMPRESSION: 1. No evidence of pulmonary embolism or aortic dissection. 2. Spiculated ovoid mass versus nodular consolidation in the posteromedial right upper lobe is mildly increased in size from 02/28/2025. This could represent malignancy or organizing pneumonia. Consider PET-CT or biopsy to further characterize. 3. Additional adjacent patchy interstitial and alveolar densities inferolateral to the nodular density could represent pneumonia or atelectasis. 4. Borderline enlarged right hilar and mediastinal nodes. 5. Mild central bronchial wall thickening suggesting an element of bronchitis or bronchial edema. 6. Mild-moderate emphysematous changes and mild pulmonary arterial hypertension. 7. Additional nonemergent findings detailed above. COMMENTS: Consistent with the [employer]'s Incidental Findings Committee white paper (J Am Janice Radiol 2018): Any incidental renal lesion less than 1 cm or classified as too small to characterize, or any incidental cystic renal lesion characterized as simple-appearing, is likely benign. No follow-up imaging is recommended for these lesions per consensus recommendations based on imaging criteria.
--- NOTE | 2025-04-14 14:56 | ED_ITS ---
<Statement entered by Tammy Neal DO - 04/15/25 01:07> I was consulted by the ASHOK, and we discussed the complexity of problems being addressed. I approve the treatment and management plan for this patient's care in the emergency department, thus performing a substantial portion of the medical decision making. Tammy Neal DO Discharge Plan Disposition Patient Disposition: Admitted Condition: Good Clinical Impressions Clinical Impression: Asthma exacerbation in COPD, Pneumonia, Constipation Discharge ED Provider: Tammy Neal General Adult HPI <AKHIL Davidson - Last Filed: 04/14/25 19:00> General Chief complaint: Abdominal Pain Stated complaint: abd pain Time Seen by Provider: 04/14/25 14:41 Mode of Arrival: Wheelchair Source of Information: Patient and Relative Description of Symptoms (Recalled from ER Triage Doc. by RN): Pt presents to ED with abdominal pain and shortness of breath. Pt states she was in the ED last week with the same problem and has not gotten any better. Pt complains of a headache and just general weakness and fatigue. History of Present Illness HPI narrative: 70-year-old female presents the emergency department with shortness of breath abdominal pain, for the last 2 weeks, as well as nausea, constipation, last bowel movement was several days ago, does not due to diarrhea, she also mitts to generalized weakness and fatigue, denies any overt chest pain, denies any cough, congestion, denies any hematuria melena hematochezia or hematemesis, no urinary type symptomatology. Patient is a current everyday smoker, denies any alcohol or drug use, other past medical history consistent with HFpEF COPD, atrial fibrillation on anticoagulation therapy with Eliquis, facet arthropathy of lumbar spine, hypertension, pulmonary nodules. Initial triage vitals notable for sepsis criteria, with tachycardia and hypoxia in the 70s, on 2 to 3 L nasal cannula, which patient is currently on daily, patient was then changed to 6 L nasal cannula and hypoxia improved. Per nursing staff, patient had no oxygen , left in her portable O2 tank. Of note patient was seen in the emergency department on 03/31/2025, for similar complaint, she had unremarkable chest x- ray and CT abdomen pelvis, was unremarkable, she was given GI referral, nebulized treatments in the emerged part with improvement of her symptomatology. Also of note, nursing staff notified me that patient's family at the bedside states that her abdominal pain has been going on since she had some sort of abdominal surgery because of a tear , her GI tract. This is data deficient. Also of note, upon chart review, patient is utilizes former alcohol. Please note that above description of symptoms, in this electronic medical record under categorization of recalled from ER triage doctor by RN are reflective of an initial nursing assessment, however, is not reflective of my full history and physical exam that was personally taken and clarified. Consequentially, this preceding description of symptoms, which may include the patient's categorized chief complaint in the EMR, do not reflect my personal clinical impression, and the ultimate description of history of present illness and patient stated complaints should be deferred to this section of the note. Unless stated otherwise or congruent with this section of the note, additional signs, symptoms, or incongruence should be interpreted as inaccurate with my clinical impression. Onset (ago): week(s) Related Data Home Medications ?Medication ?Instructions ?Recorded ?Confirmed albuterol sulfate 90 mcg/actuation 2 inh inhalation Q6 HP PRN 04/15/24 03/24/25 aerosol inhaler Shortness Of Breath montelukast 10 mg tablet 10 mg PO PM 04/15/24 5 apixaban 5 mg tablet (Eliquis) 5 mg PO BID 01/28/25 losartan 100 mg tablet 100 mg PO DAILY 01/28/2505/08 alprazolam 1 mg tablet 1 mg PO BID 03/01/25 5 celecoxib 50 mg capsule 50 mg PO DAILY 03/20/2503/15 ciclopirox 0.77 % topical cream 0 applic topical BID 0 03/20/25 03/24/25 gabapentin 800 mg tablet 800 mg PO TID 03/20/2503/24 hydrocodone 10 mg-acetaminophen 10 - 325 tab PO QID 03/24/25 325 mg tablet calcium 600 mg (as 1 tab PO BID 03/24/25 carbonate)-vitamin D3 5 mcg (200 unit) tablet cholecalciferol (vitamin D3) 1,250 50,000 unit PO WEEK LY 03/24/25 03/24/25 mcg (50,000 unit) capsule doxycycline hyclate 100 mg capsule 100 mg PO BID 09/10 /25 09/10/25 Previous Rx's ?Medication ?Instructions ?Recorded digoxin 125 mcg (0.125 mg) tablet 125 mcg PO DAILY #30 tabs 12/01/24 bumetanide 1 mg tablet 1 mg PO DAILY #30 tabs 03/21 carvedilol 25 mg tablet 25 mg PO BID 30 days #60 tab s 03/21/25 spironolactone 25 mg tablet 25 mg PO DAILY 30 days #30 tabs 03/21/25 azithromycin 250 mg tablet 250 mg PO QMWF #45 tabs 05/08 fluticasone fur. 100 mcg-umeclid 1 inh inhalation NGOZI Y 90 days #90 03/24/25 62.5 mcg-vilant 25 mcg ea inhalat.powder (Trelegy Ellipta) ipratropium 0.5 mg-albuterol 3 mg 3 ml inhalation QID PRN shortness 03/24/25 (2.5 mg base)/3 mL nebulization of breath or wheezing 90 days #270 soln mL dicyclomine 20 mg tablet 20 mg PO TID #21 tabs Allergies Allergy/AdvReac Type Severity Reaction Status Date / Time No Known Allergies Allergy Verified 03/24/25 13:16 <Tammy Neal, DO - Last Filed: 04/15/25 01:07> History of Present Illness HPI narrative: 70-year-old female presents the emergency department with shortness of breath abdominal pain, for the last 2 weeks, as well as nausea, constipation, last bowel movement was several days ago, does not due to diarrhea, she also mitts to generalized weakness and fatigue, denies any overt chest pain, denies any cough, congestion, denies any hematuria melena hematochezia or hematemesis, no urinary type symptomatology. Patient is a current everyday smoker, denies any alcohol or drug use, other past medical history consistent with HFpEF COPD, atrial fibrillation on anticoagulation therapy with Eliquis, facet arthropathy of lumbar spine, hypertension, pulmonary nodules. Initial triage vitals notable for sepsis criteria, with tachycardia and hypoxia in the 70s, on 2 to 3 L nasal cannula, which patient is currently on daily, patient was then changed to 6 L nasal cannula and hypoxia improved. Per nursing staff, patient had no oxygen , left in her portable O2 tank. Of note patient was seen in the emergency department on 03/31/2025, for similar complaint, she had unremarkable chest x- ray and CT abdomen pelvis, was unremarkable, she was given GI referral, nebulized treatments in the emerged part with improvement of her symptomatology. Also of note, nursing staff notified me that patient's family at the bedside states that her abdominal pain has been going on since she had some sort of abdominal surgery because of a tear , her GI tract. This is data deficient. Also of note, upon chart review, patient is utilizes former alcohol. Please note that above description of symptoms, in this electronic medical record under categorization of recalled from ER triage doctor by RN are reflective of an initial nursing assessment, however, is not reflective of my full history and physical exam that was personally taken and clarified. Consequentially, this preceding description of symptoms, which may include the patient's categorized chief complaint in the EMR, do not reflect my personal clinical impression, and the ultimate description of history of present illness and patient stated complaints should be deferred to this section of the note. Unless stated otherwise or congruent with this section of the note, additional signs, symptoms, or incongruence should be interpreted as inaccurate with my clinical impression. [facility] <AKHIL Davidson - Last Filed: 04/14/25 19:00> [facility] Disclaimer: The information contained in this section may have been updated after the patient was seen, as this information can be updated by other users. Medical History Unspecified disturbances of skin sensation Other specified symptoms and signs involving the circulatory and respiratory systems HTN (hypertension) HLD (hyperlipidemia) Pneumonia Fecal occult blood test positive Sepsis without septic shock Lymphedema Physical deconditioning General weakness Lung mass Hypomagnesemia Acute hypokalemia Chronic hyponatremia Generalized weakness COPD mixed type Lung nodule Hypokalemia Elevated troponin Nocturnal hypoxemia Pulmonary emphysema Incidental pulmonary nodule, greater than or equal to 8mm Smoking greater than 30 pack years Dyspnea on exertion Tobacco abuse disorder Tobacco abuse counseling Cervical cancer Surgical History History of dilation and curettage History of back surgery Family History Other Diabetes Social History (Updated 04/15/25 @ 00:53 by Lorie Drake RN) Smoking Status: Current some day smoker tobacco type: cigarettes packs per day: 2 second hand exposure: Yes alcohol intake: never substance use type: denies use current occupational status: unemployed Travel in the last 8 weeks?: None household members: spouse housing: house current occupational exposures/hazards: No Have you lived/traveled outside [place] in past 30 days?: No Contact w/someone who lives/traveled outside [place] past 30 days?: No Exposure to someone with infectious disease in past 14 days?: No Do you have a fever (greater than 100.4 F or 38 C)?: No Have you tested positive for COVID-19?: No Exposed to someone with COVID-19 in past 14 days?: No Do you have a sore throat?: No Do you have a cough?: Yes Do you have any weakness?: Yes Are you experiencing any nausea/vomitting?: No Do you have any diarrhea?: No Are you experiencing any unusual bleeding?: No Do you have any muscle aches/pain?: No Do you have any abdominal pain?: No Are you experiencing loss of taste or smell?: No Other Medical History Have you received the Flu Vaccine for this season: No (not in season) Have you received the Pneumonia Vaccine: Yes <AKHIL Davidson - Last Filed: 04/14/25 19:00> ROS Obtained: Yes All systems reviewed & no additional complaints except as documented <Tammy Neal DO - Last Filed: 04/15/25 01:07> ROS Obtained: Yes All systems reviewed & no additional complaints except as documented and Yes Systems reviewed as appropriate & no additional complaints except as documented Physical Exam <AKHIL Davidson - Last Filed: 04/14/25 19:00> General General appearance: alert and in no apparent distress Comment: Ill-appearing female Head Head exam: atraumatic and normocephalic Eye Eye exam: Present PERRL and EOMI ENT ENT exam: Present mucous membranes moist Neck Neck exam: Present normal inspection Chest Chest inspection: Present normal inspection and symmetric chest wall rise Respiratory Respiratory exam: Present wheezes and other (Pursed lip breathing with conversational dyspnea, moderate wheezes throughout bilateral lung newman); Absent normal lung sounds bilaterally or respiratory distress Cardiovascular Cardiovascular exam: Present regular rate, normal rhythm and tachycardia Abdominal Exam Abdominal exam: Present soft and tenderness; Absent guarding, rebound or rigidity Abdominal tenderness: Present mild Extremities Exam Extremities exam: Present normal inspection Neurological Exam Neurological exam: Present alert and oriented X3 Psychiatric Psychiatric exam: Present normal affect Skin Skin exam: Present warm and dry <Tammy Neal DO - Last Filed: 04/15/25 01:07> Respiratory Respiratory exam: Present wheezes (throughout) Medical Decision Making <AKHIL Davidson - Last Filed: 04/14/25 19:00> Medical Records Medical records reviewed: Yes I reviewed the patient's medical records. Screening: Per USPSTF and CDC recommendations, given the prevalence of disease in our region, it is our hospital?s policy to screen for HIV and viral Hepatitis for all patients aged 18 and over and those with ongoing risk factors. Azael Inquiry Pt receiving controlled substance: No Azael was queried for this patient: No Vital Signs: 04/14/25 14:30 04/14/25 15:12 04/14/25 15:24 Temperature 98.1 F Temperature Source Oral Pulse Rate 96 H 97 H Pulse Rate [Right] 105 H Respiratory Rate 20 Blood Pressure Blood Pressure [Right Arm] 181/81 H Blood Pressure Mean Blood Pressure Mean [Right Arm] 114 Blood Pressure Source Blood Pressure Source [Right Arm] Automatic Cuff Blood Pressure Position Blood Pressure Position [Right Arm] Sitting 02 Sat by Pulse Oximetry 79 L 98 96 Oxygen Delivery Method Nasal Cannula Oxygen Flow Rate (LPM) 3 04/14/25 15:30 04/14/25 15:45 04/14/25 16:13 Temperature Temperature Source Pulse Rate 96 H 95 H 101 H Pulse Rate [Right] Respiratory Rate Blood Pressure 162/96 H 162/96 H 213/107 H Blood Pressure [Right Arm] Blood Pressure Mean Blood Pressure Mean [Right Arm] Blood Pressure Source Blood Pressure Source [Right Arm] Blood Pressure Position Blood Pressure Position [Right Arm] 02 Sat by Pulse Oximetry 97 97 95 Oxygen Delivery Method Nasal Cannula Oxygen Flow Rate (LPM) 2 04/14/25 16:30 04/14/25 17:00 04/14/25 17:30 Temperature Temperature Source Pulse Rate 102 H 100 H 99 H Pulse Rate [Right] Respiratory Rate Blood Pressure 209/111 H 207/106 H 205/107 H Blood Pressure [Right Arm] Blood Pressure Mean Blood Pressure Mean [Right Arm] Blood Pressure Source Blood Pressure Source [Right Arm] Blood Pressure Position Blood Pressure Position [Right Arm] 02 Sat by Pulse Oximetry 95 95 96 Oxygen Delivery Method Nasal Cannula Nasal Cannula Nasal Cannula Oxygen Flow Rate (LPM) 2 2 2 04/14/25 17:56 04/14/25 18:00 04/14/25 18:30 Temperature Temperature Source Pulse Rate 101 H 102 H 107 H Pulse Rate [Right] Respiratory Rate Blood Pressure 193/124 H 194/111 H 187/124 H Blood Pressure [Right Arm] Blood Pressure Mean Blood Pressure Mean [Right Arm] Blood Pressure Source Blood Pressure Source [Right Arm] Blood Pressure Position Blood Pressure Position [Right Arm] 02 Sat by Pulse Oximetry 95 95 95 Oxygen Delivery Method Nasal Cannula Nasal Cannula Oxygen Flow Rate (LPM) 2 2 04/14/25 18:34 04/14/25 19:01 04/14/25 19:30 Temperature Temperature Source Pulse Rate 98 H 97 H 91 H Pulse Rate [Right] Respiratory Rate Blood Pressure 181/103 H 198/109 H 194/98 H Blood Pressure [Right Arm] Blood Pressure Mean 138 130 Blood Pressure Mean [Right Arm] Blood Pressure Source Blood Pressure Source [Right Arm] Blood Pressure Position Blood Pressure Position [Right Arm] 02 Sat by Pulse Oximetry 100 99 97 Oxygen Delivery Method Nasal Cannula Nasal Cannula Nasal Cannula Oxygen Flow Rate (LPM) 2 2 2 04/14/25 20:00 04/14/25 20:01 04/14/25 20:02 Temperature Temperature Source Pulse Rate 95 H 95 H 95 H Pulse Rate [Right] Respiratory Rate Blood Pressure 216/102 H 217/104 H 212/106 H Blood Pressure [Right Arm] Blood Pressure Mean 140 147 141 Blood Pressure Mean [Right Arm] Blood Pressure Source Blood Pressure Source [Right Arm] Blood Pressure Position Blood Pressure Position [Right Arm] 02 Sat by Pulse Oximetry 96 97 96 Oxygen Delivery Method Nasal Cannula Nasal Cannula Nasal Cannula Oxygen Flow Rate (LPM) 2 2 2 04/14/25 20:07 04/14/25 20:30 04/14/25 21:00 Temperature Temperature Source Pulse Rate 95 H 97 H 96 H Pulse Rate [Right] Respiratory Rate Blood Pressure 212/113 H 226/110 H 227/112 H Blood Pressure [Right Arm] Blood Pressure Mean 146 148 150 Blood Pressure Mean [Right Arm] Blood Pressure Source Blood Pressure Source [Right Arm] Blood Pressure Position Blood Pressure Position [Right Arm] 02 Sat by Pulse Oximetry 95 91 L 94 L Oxygen Delivery Method Nasal Cannula Nasal Cannula Nasal Cannula Oxygen Flow Rate (LPM) 2 2 2 04/14/25 21:07 04/14/25 21:08 04/14/25 21:30 Temperature Temperature Source Pulse Rate 95 H 96 H 94 H Pulse Rate [Right] Respiratory Rate Blood Pressure 216/108 H 224/109 H 217/108 H Blood Pressure [Right Arm] Blood Pressure Mean 144 147 144 Blood Pressure Mean [Right Arm] Blood Pressure Source Blood Pressure Source [Right Arm] Blood Pressure Position Blood Pressure Position [Right Arm] 02 Sat by Pulse Oximetry 96 94 L 96 Oxygen Delivery Method Nasal Cannula Nasal Cannula Oxygen Flow Rate (LPM) 2 2 2 04/14/25 23:30 04/14/25 23:48 04/15/25 00:00 Temperature 98.1 F 97.0 F L Temperature Source Oral Axillary Pulse Rate 89 88 Pulse Rate [Right] 91 H Respiratory Rate 18 18 Blood Pressure 186/92 H Blood Pressure [Right Arm] 205/104 H Blood Pressure Mean Blood Pressure Mean [Right Arm] 137 Blood Pressure Source Automatic Cuff Blood Pressure Source [Right Arm] Automatic Cuff Blood Pressure Position Supine Blood Pressure Position [Right Arm] 02 Sat by Pulse Oximetry 98 Oxygen Delivery Method Nasal Cannula Oxygen Flow Rate (LPM) 3 Lab Data Lab results reviewed: Yes I reviewed the patient's lab results. Lab Results 04/14/25 14:48: PT 10.7, INR 0.96 04/14/25 14:54: WBC 7.8, RBC 4.00 L, Hgb 11.4 L, Hct 35.9 L, MCV 89.8, MCH 28.5, MCHC 31.8, RDW 13.4, Plt Count 204, MPV 10.3, Neut % (Auto) 72.4, Lymph % (Auto) 19.4, Coleman % (Auto) 5.9, Eos % (Auto) 1.5, Baso % (Auto) 0.4, Neut # (Auto) 5.7, Lymph # (Auto) 1.5, Coleman # (Auto) 0.5, Eos # (Auto) 0.1, Baso # (Auto) 0.0, Sodium 136, Potassium 4.4, Chloride 90 L, Carbon Dioxide > 40 H*, Anion Gap 10.4, BUN 13, Creatinine 0.70, Estimated Creat Clear 51, Estimated GFR 83, Est GFR ( Amer) 100, Glucose 139 H, Lactate 1.3, Calcium 10.7 H, Magnesium 1.9, Total Bilirubin 0.5, AST 33, ALT 12, Alkaline Phosphatase 48, Troponin I < 0.01, NT-Pro-B Natriuret Pep 1310 H, Total Protein 6.9, Albumin 4.2, Globulin 2.7, Albumin/Globulin Ratio 1.6 04/14/25 15:08: VBG pH 7.38, VBG pCO2 71.3 H, VBG pO2 44.1 H, VBG HCO3 41.6 H, V BG Total CO2 43.8 H, VBG O2 Saturation 77.2 H, VBG Base Excess 16.6 H, VBG Lactic Acid 2.0 04/14/25 15:09: SARS-CoV-2 (PCR) Not detected, Influenza A Untype (PCR) Not detected, Influenza Type B (PCR) Not detected 04/14/25 16:24: Urine Color Yellow, Urine Appearance Clear, Urine pH 7.5, Ur Specific [place] 1.010, Urine Protein Negative, Urine Glucose (UA) Negative, Urine Ketones Negative, Urine Blood Negative, Urine Nitrate Negative, Urine Bilirubin Negative, Urine Urobilinogen 0.2, Ur Leukocyte Esterase Negative, Urine RBC Occasional, Urine WBC 5-10, Ur Squamous Epith Cells 20-50, Urine Bacteria 2+ 04/14/25 18:05: Troponin I < 0.01 04/14/25 21:15: Troponin I < 0.01 04/14/25 14:54 04/14/25 14:54 Orders (Tests/Meds): ED MEDICATIONS Generic Name Dose Route Start Last Admin Trade Name Freq PRN Reason Stop Dose Admin Acetaminophen 650 mg 04/14/25 23:09 Acetaminophen 325mg Tab PO 05/14/25 23:08 Q4HP PRN Fever or Mild Pain (1-3) Albuterol/Ipratropium 3 ml 04/15/25 05:00 Ipratropium/Albuterol 3 Ml Neb IH 05/15/25 04:59 Q6 VICENTE Heparin Sodium (Porcine) 5,000 unit 04/15/25 09:00 Heparin Sodium 5,000 Unit/Ml Vial SUBCUT 05/15/25 08:59 TID VICENTE Azithromycin 500 mg/ Sodium 250 mls @ 250 mls/hr 04/14/25 23:15 04/14/25 23:26 Chloride IV 04/24/25 23:14 250 mls/hr Q24H VICENTE Administration Irbesartan 100 mg 04/14/25 21:58 Irbesartan 150mg Tab PO 04/14/25 21:59 ONCE ONE Irbesartan 150 mg 04/15/25 09:00 Irbesartan 150mg Tab PO 05/15/25 08:59 DAILY VICENTE Labetalol HCl 20 mg 04/15/25 00:23 Labetalol 20mg/4ml Syringe IV 05/15/25 00:22 Q6HP PRN for SBP >160 Methylprednisolone Sodium Succinate 40 mg 04/14/25 23:15 04/15/25 00:15 Methylprednisolone Sod Succ 40mg Vial IV 05/14/25 23:14 40 mg Q8H VICENTE Administration Nifedipine 60 mg 04/15/25 00:22 04/15/25 00:30 Nifedipine Xl 30mg Tablet PO 04/15/25 00:23 60 mg DAILY STA Administration Ondansetron HCl 4 mg 04/14/25 23:09 Ondansetron 4mg/2ml Vial IV 05/14/25 23:08 Q8HP PRN Nausea Discontinued Medications Generic Name Dose Route Start Last Admin Trade Name Freq PRN Reason Stop Dose Admin Albuterol Sulfate 20 mg 04/14/25 23:05 04/14/25 23:29 Albuterol 0.083% 2.5 Mg/3 Ml [facility] 04/14/25 23:06 20 mg ONCE ONE Administration Albuterol/Ipratropium 6 ml 04/14/25 17:54 04/14/25 18:24 Ipratropium/Albuterol 3 Ml [facility] 04/14/25 17:55 6 ml ONCE ONE Administration Alprazolam 1 mg 04/14/25 18:22 04/14/25 18:25 Alprazolam 0.5mg Tablet PO 04/14/25 18:23 1 mg ONCE ONE Administration Carvedilol 25 mg 04/14/25 20:48 04/14/25 20:56 Carvedilol 25mg Tablet PO 04/14/25 20:49 25 mg ONCE ONE Administration Digoxin 125 mcg 04/14/25 20:47 04/14/25 20:54 Digoxin 0.125mg Tablet PO 04/14/25 20:48 125 mcg ONCE ONE Administration Ceftriaxone Sodium 1 gm/ 50 mls @ 100 mls/hr 04/14/25 14:55 04/14/25 16:16 Sodium Chloride IV 04/14/25 15:24 Infused ONCE ONE Infusion Magnesium Sulfate 2 gm in 50 mls @ 50 mls/hr 04/14/25 23:04 04/15/25 00:15 Magnesium Sulfate 2gm/50ml Premix IV 04/15/25 00:03 50 mls/hr ONCE ONE Administration Iopamidol 80 ml 04/14/25 16:03 04/14/25 16:04 Iopamidol-370 (76%);100ml Bottle IV 04/14/25 16:04 80 ml ONCE ONE Administration Methylprednisolone Sodium Succinate 125 mg 04/14/25 17:54 04/14/25 18:24 Methylprednisolone Sod Succ 125mg Vial IV 04/14/25 17:55 125 mg ONCE ONE Administration Sodium Chloride 50 ml 04/14/25 16:03 04/14/25 16:04 0.9 % Sodium Chloride 50 Ml Vial IV 04/14/25 16:04 50 ml ONCE ONE Administration Sodium Chloride 10 ml 04/14/25 16:03 04/14/25 16:04 Sodium Chloride 0.9% 10ml Syr (Rad Only) IV 04/14/25 16:04 10 ml ONCE ONE Administration ORDERS Category Date Time Status CT abdomen pelvis w con Stat Cat Scan 04/14/25 14:[address] angio chest PE protocol Stat Cat Scan 04/14/25 14:[address] head/brain wo con Stat Cat Scan 04/14/25 14:48 Completed XR chest portable Stat Exams 04/14/25 14:48 Completed Basic Metabolic Panel AMLAB Lab 04/15/25 06:00 Ordered Complete Blood Count Auto Diff AMLAB Lab 04/15/25 06:00 Ordered Complete Blood Count Auto Diff Stat Lab 04/14/25 14:54 Completed Comprehensive Metabolic Panel Stat Lab 04/14/25 14:54 Completed Lactic Acid Stat Lab 04/14/25 14:54 Completed Magnesium Stat Lab 04/14/25 14:54 Completed NT Pro Brain Natriuretic Pep. Stat Lab 04/14/25 14:54 Completed PT INR [Prothrombin Time INR] Stat Lab 04/14/25 14:48 Completed Rapid PCR Covid and Flu A/B Stat Lab 04/14/25 15:09 Completed Troponin I Q3H Lab 04/14/25 18:05 Completed Troponin I Q3H Lab 04/14/25 21:15 Completed Troponin I Stat Lab 04/14/25 14:54 Completed Urinalysis and Microscopic Stat Lab 04/14/25 16:24 Completed Blood Culture Stat Micro 04/14/25 15:16 Received Urine Culture Stat Micro 04/14/25 16:24 Received VBG [Venous Blood Gas] Stat RT 04/14/25 15:08 Completed Medical Decision Narrative: 70-year-old female presents the emergency department with 2 weeks of abdominal pain nausea constipation and worsening shortness of breath, differential diagnose include but not limited to, sepsis, bowel obstruction, colitis, ileitis, gastritis, diverticulitis, pancreatitis, ileus, constipation, COPD exacerbation, UTI exacerbation, pneumonia, PE, ACS, cardiac arrhythmia, electrolyte disturbance among others. I discussed the patient case with the attending patient Dr. Capellan Will obtain basic laboratory studies, lactic acid level, magnesium level, proBNP, PT/INR, PCR COVID flu, troponin, urinalysis, will obtain EKG, CT and pelvis with contrast, CTA chest with and without contrast PE protocol, CT head without contrast, CXR, ABG, will obtain blood cultures, will give 1 g IV ceftriaxone as the patient is initially meeting sepsis criteria due to hypoxia and tachycardia, will hold off on fluid bolus at this time due to concern for underlying heart failure or fluid overload based on clinical auscultation and history of HFpEF. CBC is notable for hemoglobin hematocrit 11.4/35.9 no leukocytosis on CBC Coags within normal limit CMP is noted for normal lactic acidosis, hypercalcemia at 10.7, troponin initially is less than 0.01, proBNP is 1310 VBG is notable for hypercapnia at 71.3, bicarb is elevated at 41.6, pH within normal limits 7.38. UA is notable for negative nitrites, negative leukocyte esterase negative hematuria. UA is notable for occasional RBCs, 5-10 WBCs, 20-50 squamous epithelial cells and 2+ urine bacteria. Will give 6 mm DuoNebs and 125 mg IV methylprednisone for COPD exacerbation. COVID-19 is negative via PCR, influenza negative via PCR I reviewed the patient's CT head without contrast along with the corresponding radiologic report, no acute intracranial process, no intracranial hemorrhage or mass effect, no gross change from October 2022, atrophy and microvascular changes consistent with advanced age severe calcific atherosclerosis. Patient is requesting her at home Xanax , will give 1 mg p.o. Xanax as her at home dose. I discussed this patient's case with Dr. Neal at shift change, she will be assuming the patient's care/workup disposition will be pending CT abdomen pelvis and CTA chest radiology report/clinical reevaluation <Tammy Neal, DO - Last Filed: 04/15/25 01:07> Vital Signs: 04/14/25 14:30 04/14/25 15:12 04/14/25 15:24 Temperature 98.1 F Temperature Source Oral Pulse Rate 96 H 97 H Pulse Rate [Right] 105 H Respiratory Rate 20 Blood Pressure Blood Pressure [Right Arm] 181/81 H Blood Pressure Mean Blood Pressure Mean [Right Arm] 114 Blood Pressure Source Blood Pressure Source [Right Arm] Automatic Cuff Blood Pressure Position Blood Pressure Position [Right Arm] Sitting 02 Sat by Pulse Oximetry 79 L 98 96 Oxygen Delivery Method Nasal Cannula Oxygen Flow Rate (LPM) 3 04/14/25 15:30 04/14/25 15:45 04/14/25 16:13 Temperature Temperature Source Pulse Rate 96 H 95 H 101 H Pulse Rate [Right] Respiratory Rate Blood Pressure 162/96 H 162/96 H 213/107 H Blood Pressure [Right Arm] Blood Pressure Mean Blood Pressure Mean [Right Arm] Blood Pressure Source Blood Pressure Source [Right Arm] Blood Pressure Position Blood Pressure Position [Right Arm] 02 Sat by Pulse Oximetry 97 97 95 Oxygen Delivery Method Nasal Cannula Oxygen Flow Rate (LPM) 2 04/14/25 16:30 04/14/25 17:00 04/14/25 17:30 Temperature Temperature Source Pulse Rate 102 H 100 H 99 H Pulse Rate [Right] Respiratory Rate Blood Pressure 209/111 H 207/106 H 205/107 H Blood Pressure [Right Arm] Blood Pressure Mean Blood Pressure Mean [Right Arm] Blood Pressure Source Blood Pressure Source [Right Arm] Blood Pressure Position Blood Pressure Position [Right Arm] 02 Sat by Pulse Oximetry 95 95 96 Oxygen Delivery Method Nasal Cannula Nasal Cannula Nasal Cannula Oxygen Flow Rate (LPM) 2 2 2 04/14/25 17:56 04/14/25 18:00 04/14/25 18:30 Temperature Temperature Source Pulse Rate 101 H 102 H 107 H Pulse Rate [Right] Respiratory Rate Blood Pressure 193/124 H 194/111 H 187/124 H Blood Pressure [Right Arm] Blood Pressure Mean Blood Pressure Mean [Right Arm] Blood Pressure Source Blood Pressure Source [Right Arm] Blood Pressure Position Blood Pressure Position [Right Arm] 02 Sat by Pulse Oximetry 95 95 95 Oxygen Delivery Method Nasal Cannula Nasal Cannula Oxygen Flow Rate (LPM) 2 2 04/14/25 18:34 04/14/25 19:01 04/14/25 19:30 Temperature Temperature Source Pulse Rate 98 H 97 H 91 H Pulse Rate [Right] Respiratory Rate Blood Pressure 181/103 H 198/109 H 194/98 H Blood Pressure [Right Arm] Blood Pressure Mean 138 130 Blood Pressure Mean [Right Arm] Blood Pressure Source Blood Pressure Source [Right Arm] Blood Pressure Position Blood Pressure Position [Right Arm] 02 Sat by Pulse Oximetry 100 99 97 Oxygen Delivery Method Nasal Cannula Nasal Cannula Nasal Cannula Oxygen Flow Rate (LPM) 2 2 2 04/14/25 20:00 04/14/25 20:01 04/14/25 20:02 Temperature Temperature Source Pulse Rate 95 H 95 H 95 H Pulse Rate [Right] Respiratory Rate Blood Pressure 216/102 H 217/104 H 212/106 H Blood Pressure [Right Arm] Blood Pressure Mean 140 147 141 Blood Pressure Mean [Right Arm] Blood Pressure Source Blood Pressure Source [Right Arm] Blood Pressure Position Blood Pressure Position [Right Arm] 02 Sat by Pulse Oximetry 96 97 96 Oxygen Delivery Method Nasal Cannula Nasal Cannula Nasal Cannula Oxygen Flow Rate (LPM) 2 2 2 04/14/25 20:07 04/14/25 20:30 04/14/25 21:00 Temperature Temperature Source Pulse Rate 95 H 97 H 96 H Pulse Rate [Right] Respiratory Rate Blood Pressure 212/113 H 226/110 H 227/112 H Blood Pressure [Right Arm] Blood Pressure Mean 146 148 150 Blood Pressure Mean [Right Arm] Blood Pressure Source Blood Pressure Source [Right Arm] Blood Pressure Position Blood Pressure Position [Right Arm] 02 Sat by Pulse Oximetry 95 91 L 94 L Oxygen Delivery Method Nasal Cannula Nasal Cannula Nasal Cannula Oxygen Flow Rate (LPM) 2 2 2 04/14/25 21:07 04/14/25 21:08 04/14/25 21:30 Temperature Temperature Source Pulse Rate 95 H 96 H 94 H Pulse Rate [Right] Respiratory Rate Blood Pressure 216/108 H 224/109 H 217/108 H Blood Pressure [Right Arm] Blood Pressure Mean 144 147 144 Blood Pressure Mean [Right Arm] Blood Pressure Source Blood Pressure Source [Right Arm] Blood Pressure Position Blood Pressure Position [Right Arm] 02 Sat by Pulse Oximetry 96 94 L 96 Oxygen Delivery Method Nasal Cannula Nasal Cannula Oxygen Flow Rate (LPM) 2 2 2 04/14/25 23:30 04/14/25 23:48 04/15/25 00:00 Temperature 98.1 F 97.0 F L Temperature Source Oral Axillary Pulse Rate 89 88 Pulse Rate [Right] 91 H Respiratory Rate 18 18 Blood Pressure 186/92 H Blood Pressure [Right Arm] 205/104 H Blood Pressure Mean Blood Pressure Mean [Right Arm] 137 Blood Pressure Source Automatic Cuff Blood Pressure Source [Right Arm] Automatic Cuff Blood Pressure Position Supine Blood Pressure Position [Right Arm] 02 Sat by Pulse Oximetry 98 Oxygen Delivery Method Nasal Cannula Oxygen Flow Rate (LPM) 3 Lab Data Lab Results 04/14/25 14:48: PT 10.7, INR 0.96 04/14/25 14:54: WBC 7.8, RBC 4.00 L, Hgb 11.4 L, Hct 35.9 L, MCV 89.8, MCH 28.5, MCHC 31.8, RDW 13.4, Plt Count 204, MPV 10.3, Neut % (Auto) 72.4, Lymph % (Auto) 19.4, Coleman % (Auto) 5.9, Eos % (Auto) 1.5, Baso % (Auto) 0.4, Neut # (Auto) 5.7, Lymph # (Auto) 1.5, Coleman # (Auto) 0.5, Eos # (Auto) 0.1, Baso # (Auto) 0.0, Sodium 136, Potassium 4.4, Chloride 90 L, Carbon Dioxide > 40 H*, Anion Gap 10.4, BUN 13, Creatinine 0.70, Estimated Creat Clear 51, Estimated GFR 83, Est GFR ( Amer) 100, Glucose 139 H, Lactate 1.3, Calcium 10.7 H, Magnesium 1.9, Total Bilirubin 0.5, AST 33, ALT 12, Alkaline Phosphatase 48, Troponin I < 0.01, NT-Pro-B Natriuret Pep 1310 H, Total Protein 6.9, Albumin 4.2, Globulin 2.7, Albumin/Globulin Ratio 1.6 04/14/25 15:08: VBG pH 7.38, VBG pCO2 71.3 H, VBG pO2 44.1 H, VBG HCO3 41.6 H, V BG Total CO2 43.8 H, VBG O2 Saturation 77.2 H, VBG Base Excess 16.6 H, VBG Lactic Acid 2.0 04/14/25 15:09: SARS-CoV-2 (PCR) Not detected, Influenza A Untype (PCR) Not detected, Influenza Type B (PCR) Not detected 04/14/25 16:24: Urine Color Yellow, Urine Appearance Clear, Urine pH 7.5, Ur Specific [place] 1.010, Urine Protein Negative, Urine Glucose (UA) Negative, Urine Ketones Negative, Urine Blood Negative, Urine Nitrate Negative, Urine Bilirubin Negative, Urine Urobilinogen 0.2, Ur Leukocyte Esterase Negative, Urine RBC Occasional, Urine WBC 5-10, Ur Squamous Epith Cells 20-50, Urine Bacteria 2+ 04/14/25 18:05: Troponin I < 0.01 04/14/25 21:15: Troponin I < 0.01 Orders (Tests/Meds): ED MEDICATIONS Generic Name Dose Route Start Last Admin Trade Name Freq PRN Reason Stop Dose Admin Acetaminophen 650 mg 04/14/25 23:09 Acetaminophen 325mg Tab PO 05/14/25 23:08 Q4HP PRN Fever or Mild Pain (1-3) Albuterol/Ipratropium 3 ml 04/15/25 05:00 Ipratropium/Albuterol 3 Ml Neb IH 05/15/25 04:59 Q6 REPLACED BY [facility] Heparin Sodium (Porcine) 5,000 unit 04/15/25 09:00 Heparin Sodium 5,000 Unit/Ml Vial SUBCUT 05/15/25 08:59 TID VICENTE Azithromycin 500 mg/ Sodium 250 mls @ 250 mls/hr 04/14/25 23:15 04/14/25 23:26 Chloride IV 04/24/25 23:14 250 mls/hr Q24H VICENTE Administration Irbesartan 100 mg 04/14/25 21:58 Irbesartan 150mg Tab PO 04/14/25 21:59 ONCE ONE Irbesartan 150 mg 04/15/25 09:00 Irbesartan 150mg Tab PO 05/15/25 08:59 DAILY REPLACED BY [facility] Labetalol HCl 20 mg 04/15/25 00:23 Labetalol 20mg/4ml Syringe IV 05/15/25 00:22 Q6HP PRN for SBP >160 Methylprednisolone Sodium Succinate 40 mg 04/14/25 23:15 04/15/25 00:15 Methylprednisolone Sod Succ 40mg Vial IV 05/14/25 23:14 40 mg Q8H VICENTE Administration Nifedipine 60 mg 04/15/25 00:22 04/15/25 00:30 Nifedipine Xl 30mg Tablet PO 04/15/25 00:23 60 mg DAILY STA Administration Ondansetron HCl 4 mg 04/14/25 23:09 Ondansetron 4mg/2ml Vial IV 05/14/25 23:08 Q8HP PRN Nausea Discontinued Medications Generic Name Dose Route Start Last Admin Trade Name Freq PRN Reason Stop Dose Admin Albuterol Sulfate 20 mg 04/14/25 23:05 04/14/25 23:29 Albuterol 0.083% 2.5 Mg/3 Ml [facility] 04/14/25 23:06 20 mg ONCE ONE Administration Albuterol/Ipratropium 6 ml 04/14/25 17:54 04/14/25 18:24 Ipratropium/Albuterol 3 Ml [facility] 04/14/25 17:55 6 ml ONCE ONE Administration Alprazolam 1 mg 04/14/25 18:22 04/14/25 18:25 Alprazolam 0.5mg Tablet PO 04/14/25 18:23 1 mg ONCE ONE Administration Carvedilol 25 mg 04/14/25 20:48 04/14/25 20:56 Carvedilol 25mg Tablet PO 04/14/25 20:49 25 mg ONCE ONE Administration Digoxin 125 mcg 04/14/25 20:47 04/14/25 20:54 Digoxin 0.125mg Tablet PO 04/14/25 20:48 125 mcg ONCE ONE Administration Ceftriaxone Sodium 1 gm/ 50 mls @ 100 mls/hr 04/14/25 14:55 04/14/25 16:16 Sodium Chloride IV 04/14/25 15:24 Infused ONCE ONE Infusion Magnesium Sulfate 2 gm in 50 mls @ 50 mls/hr 04/14/25 23:04 04/15/25 00:15 Magnesium Sulfate 2gm/50ml Premix IV 04/15/25 00:03 50 mls/hr ONCE ONE Administration Iopamidol 80 ml 04/14/25 16:03 04/14/25 16:04 Iopamidol-370 (76%);100ml Bottle IV 04/14/25 16:04 80 ml ONCE ONE Administration Methylprednisolone Sodium Succinate 125 mg 04/14/25 17:54 04/14/25 18:24 Methylprednisolone Sod Succ 125mg Vial IV 04/14/25 17:55 125 mg ONCE ONE Administration Sodium Chloride 50 ml 04/14/25 16:03 04/14/25 16:04 0.9 % Sodium Chloride 50 Ml Vial IV 04/14/25 16:04 50 ml ONCE ONE Administration Sodium Chloride 10 ml 04/14/25 16:03 04/14/25 16:04 Sodium Chloride 0.9% 10ml Syr (Rad Only) IV 04/14/25 16:04 10 ml ONCE ONE Administration ORDERS Category Date Time Status CT abdomen pelvis w con Stat Cat Scan 04/14/25 14:[address] angio chest PE protocol Stat Cat Scan 04/14/25 14:[address] head/brain wo con Stat Cat Scan 04/14/25 14:48 Completed XR chest portable Stat Exams 04/14/25 14:48 Completed Basic Metabolic Panel AMLAB Lab 04/15/25 06:00 Ordered Complete Blood Count Auto Diff AMLAB Lab 04/15/25 06:00 Ordered Complete Blood Count Auto Diff Stat Lab 04/14/25 14:54 Completed Comprehensive Metabolic Panel Stat Lab 04/14/25 14:54 Completed Lactic Acid Stat Lab 04/14/25 14:54 Completed Magnesium Stat Lab 04/14/25 14:54 Completed NT Pro Brain Natriuretic Pep. Stat Lab 04/14/25 14:54 Completed PT INR [Prothrombin Time INR] Stat Lab 04/14/25 14:48 Completed Rapid PCR Covid and Flu A/B Stat Lab 04/14/25 15:09 Completed Troponin I Q3H Lab 04/14/25 18:05 Completed Troponin I Q3H Lab 04/14/25 21:15 Completed Troponin I Stat Lab 04/14/25 14:54 Completed Urinalysis and Microscopic Stat Lab 04/14/25 16:24 Completed Blood Culture Stat Micro 04/14/25 15:16 Received Urine Culture Stat Micro 04/14/25 16:24 Received VBG [Venous Blood Gas] Stat RT 04/14/25 15:08 Completed Medical Decision Narrative: 70-year-old female presents the emergency department with 2 weeks of abdominal pain nausea constipation and worsening shortness of breath, differential diagnose include but not limited to, sepsis, bowel obstruction, colitis, ileitis, gastritis, diverticulitis, pancreatitis, ileus, constipation, COPD exacerbation, UTI exacerbation, pneumonia, PE, ACS, cardiac arrhythmia, electrolyte disturbance among others. I discussed the patient case with the attending patient Dr. Capellan Will obtain basic laboratory studies, lactic acid level, magnesium level, proBNP, PT/INR, PCR COVID flu, troponin, urinalysis, will obtain EKG, CT and pelvis with contrast, CTA chest with and without contrast PE protocol, CT head without contrast, CXR, ABG, will obtain blood cultures, will give 1 g IV ceftriaxone as the patient is initially meeting sepsis criteria due to hypoxia and tachycardia, will hold off on fluid bolus at this time due to concern for underlying heart failure or fluid overload based on clinical auscultation and history of HFpEF. CBC is notable for hemoglobin hematocrit 11.4/35.9 no leukocytosis on CBC Coags within normal limit CMP is noted for normal lactic acidosis, hypercalcemia at 10.7, troponin initially is less than 0.01, proBNP is 1310 VBG is notable for hypercapnia at 71.3, bicarb is elevated at 41.6, pH within normal limits 7.38. UA is notable for negative nitrites, negative leukocyte esterase negative hematuria. UA is notable for occasional RBCs, 5-10 WBCs, 20-50 squamous epithelial cells and 2+ urine bacteria. Will give 6 mm DuoNebs and 125 mg IV methylprednisone for COPD exacerbation. COVID-19 is negative via PCR, influenza negative via PCR I reviewed the patient's CT head without contrast along with the corresponding radiologic report, no acute intracranial process, no intracranial hemorrhage or mass effect, no gross change from October 2022, atrophy and microvascular changes consistent with advanced age severe calcific atherosclerosis. Patient is requesting her at home Xanax , will give 1 mg p.o. Xanax as her at home dose. I discussed this patient's case with Dr. Neal at shift change, she will be assuming the patient's care/workup disposition will be pending CT abdomen pelvis and CTA chest radiology report/clinical reevaluation Repeat troponin < 0.01 Tammy Neal, I assumed care of the patient at 1900. Patient CT chest and CT abdomen were significantly delayed in the radiology read therefore patient was in the emergency department for an extended period of time. Repeat evaluation, patient continued to have significant wheezing therefore patient was ordered magnesium and continuous albuterol. Patient CT abdomen showed no acute pathology however patient CT chest concern for possible pneumonia. Patient was already given Rocephin, patient was given azithromycin as well for CAP coverage. Patient arrived on 5 L nasal cannula was weaned down to 3 L patient is on 2 L at home. Given the patient was still symptomatic from a respiratory standpoint felt that patient warranted admission. Discussed the case with hospital medicine who ultimately admitted the patient for further evaluation and workup. Critical Care <AKHIL Davidson - Last Filed: 04/14/25 19:00> Critical Care Time Critical Care Time: No
[2025-04-14 15:04] LABS: Hematocrit 35.9 % (37.0-47.0); Hemoglobin 11.4 g/dL (12.2-16.2); Immature Granulocytes % 0.4 %; Mean Corpuscular HGB Conc 31.8 g/dL (31.8-35.4); Mean Corpuscular Hemoglobin 28.5 pg (27.0-31.2); Mean Corpuscular Volume 89.8 fl (81-99); Nucleated Red Blood Cells % 0 %; Platelet Count 204 K/mm3 (142-424); Red Blood Count 4.00 M/mm3 (4.20-5.40); Red Cell Distribution Width-SD 44.5 fL; White Blood Count 7.8 K/mm3 (4.8-10.8)
[2025-04-14 15:13] LABS: Lactate Venous 2.0 mmol/L (0.4-2.0); VBG HCO3 41.6 mmol/L (23-30); VBG PH 7.38 mmol/L (7.31-7.41); VBG PO2 44.1 mmol/L (28-40)
[2025-04-14 15:14] LABS: INR 0.96 (0.9-1.1); Prothrombin Time 10.7 seconds (10.1-12.5)
[2025-04-14 15:16] LABS: Alanine Aminotransferase 12 U/L (12-78); Albumin Level 4.2 g/dl (3.5-5.0); Albumin/Globulin Ratio 1.6 (1.1-1.8); Alkaline Phosphatase 48 U/L (38-126); Aspartate Amino Transferase 33 U/L (14-36); Bilirubin,Total 0.5 mg/dl (0.2-1.3); Blood Urea Nitrogen 13 mg/dl (7-17); Calcium 10.7 mg/dl (8.4-10.2); Chloride 90 mmol/L (98-107); Creatinine Clearance Estimated 51 mL/min (50-200); Creatinine,Serum 0.70 mg/dl (0.52-1.04); Estimated Glomerular Filt Rate 83 ml/min (>60); GFR (African American) 100 ML/MIN (>60); Globulin 2.7 g/dL (1.3-3.2); Glucose 139 mg/dl (74-100); Magnesium 1.9 mg/dl (1.6-2.3); Potassium 4.4 mmoL/L (3.5-5.1); Sodium 136 mmol/L (136-145); Total Protein,Serum 6.9 g/dl (6.3-8.2)
[2025-04-14 15:16] LABS: VBG PCO2 71.3 mmol/L (35-51)
[2025-04-14 15:27] LABS: NT Pro Brain Natriuretic Pep. 1310 pg/mL (0-125)
[2025-04-14 15:34] LABS: Coronavirus 19, PCR Not Detected (NotDetected); Influenza A, PCR Not Detected (NotDetected); Influenza B, PCR Not Detected (NotDetected)
[2025-04-14 15:36] LABS: Anion Gap 10.4 mEq/L (5-15); Troponin I < 0.01 ng/ml (0.00-0.034)
--- NOTE | 2025-04-14 15:40 | ECG_ITS ---
APPROVED REPORT Exam: Resting ECG HR:96 bpm ECG Measurements Heart Rate 96 AXES CO 143 P 95 QRSd 85 QRS -78 QT 318 T 48 QTc 371 Conclusion EKG showed normal sinus rhythm without acute ST or T wave changes concerning for ischemia Electronically signed by : Tammy Neal, 04/15/2025 01:56:54
[2025-04-14 15:48] LABS: Carbon Dioxide > 40 mmol/L (22.0-30.0)
[2025-04-14] MEDS: IOPAMIDOL-370 (76%);100ML BOTTLE 80 ML IV (16:04)
[2025-04-14] MEDS: SODIUM CHLORIDE 0.9% 10ML SYR (RAD ONLY) 10 ML IV (16:04)
[2025-04-14] MEDS: 0.9 % SODIUM CHLORIDE 50 ML VIAL IV (16:04)
[2025-04-14 16:32] LABS: Microscopic, Urine URINE MICROSCOPIC (MICROSCOPIC)
[2025-04-14 16:46] LABS: Bilirubin,Urine Negative (Negative); Color,Urine YELLOW (Yellow); Glucose,Urine (UA) Negative (Negative); Ketones,Urine Negative (Negative); Leukocyte Esterase,Urine Negative (Negative); PH,Urine 7.5 (5.0-8.5); Protein,Urine Negative (Negative); Specific Gravity, Urine 1.010 (1.005-1.030); Urobilinogen,Urine 0.2 EU/dl (0.2)
[2025-04-14 17:25] LABS: Bacteria,Urine 2+ /lpf; RBC,Urine Occasional #/hpf (0-3); Squamous Epithelial Cell,Urine 20-50 #/hpf (0-5)
[2025-04-14] MEDS: METHYLPREDNISOLONE SOD SUCC 125MG VIAL 125 MG IV (18:24)
[2025-04-14] MEDS: IPRATROPIUM/ALBUTEROL 3 ML NEB 6 ML IH (18:24)
[2025-04-14 19:14] LABS: Troponin I < 0.01 ng/ml (0.00-0.034)
--- NOTE | 2025-04-14 20:44 | ECG_ITS ---
APPROVED REPORT Exam: Resting ECG HR:96 bpm ECG Measurements Heart Rate 96 AXES TX 159 P 64 QRSd 89 QRS -71 QT 336 T 64 QTc 389 Conclusion EKG showed normal sinus rhythm at [address] or T wave changes concerning for Electronically signed by : Tammy Neal, 04/15/2025 02:00:26
[2025-04-14] MEDS: DIGOXIN 0.125MG TABLET 125 MCG PO (20:54)
[2025-04-14] MEDS: CARVEDILOL 25MG TABLET 25 MG PO (20:56)
--- NOTE | 2025-04-14 21:14 | PC.NURSE ---
[facility] notified to escalte scans
[2025-04-14 21:43] LABS: Troponin I < 0.01 ng/ml (0.00-0.034)
--- NOTE | 2025-04-14 22:03 | PC.NURSE ---
manual B/P taken 220/110. Both providers notified
--- NOTE | 2025-04-14 22:09 | PC.NURSE ---
Abd Pelvis CT still not received from radiology stated by [facility] Called radiology to send again
--- NOTE | 2025-04-14 23:19 | EXP.HP ---
History of Present Illness *Admission Date: 04/15/25 *Reason for visit:: SOB *History of present illness: Patient is a 70-year-old female with past medical history of active tobacco use, COPD on 2 L nasal cannula at baseline, heart failure with preserved ejection fraction, hypertension who presents to the hospital due to difficulty breathing as well as wheezing, chest pain. Patient on arriving to the hospital had systolic blood pressure of 200s. Patient mentions she has been having wheezing and difficulty breathing for past 1 week. Patient mentions she also has chest pain, she has abdominal pain, otherwise denied fever chills diarrhea. Patient mentions she has been actively using tobacco about 1 pack/day. [facility] Disclaimer: The information contained in this section may have been updated after the patient was seen, as this information can be updated by other users. Medical History Unspecified disturbances of skin sensation Other specified symptoms and signs involving the circulatory and respiratory systems HTN (hypertension) HLD (hyperlipidemia) Pneumonia Fecal occult blood test positive Sepsis without septic shock Lymphedema Physical deconditioning General weakness Lung mass Hypomagnesemia Acute hypokalemia Chronic hyponatremia Generalized weakness COPD mixed type Lung nodule Hypokalemia Elevated troponin Nocturnal hypoxemia Pulmonary emphysema Incidental pulmonary nodule, greater than or equal to 8mm Smoking greater than 30 pack years Dyspnea on exertion Tobacco abuse disorder Tobacco abuse counseling Cervical cancer Surgical History History of dilation and curettage History of back surgery Family History Other Diabetes Social History (Updated 04/15/25 @ 00:53 by Lorie Drake RN) Smoking Status: Current some day smoker tobacco type: cigarettes packs per day: 2 second hand exposure: Yes alcohol intake: never substance use type: denies use current occupational status: unemployed Travel in the last 8 weeks?: None household members: spouse housing: house current occupational exposures/hazards: No Have you lived/traveled outside [place] in past 30 days?: No Contact w/someone who lives/traveled outside US past 30 days?: No Exposure to someone with infectious disease in past 14 days?: No Do you have a fever (greater than 100.4 F or 38 C)?: No Have you tested positive for COVID-19?: No Exposed to someone with COVID-19 in past 14 days?: No Do you have a sore throat?: No Do you have a cough?: Yes Do you have any weakness?: Yes Are you experiencing any nausea/vomitting?: No Do you have any diarrhea?: No Are you experiencing any unusual bleeding?: No Do you have any muscle aches/pain?: No Do you have any abdominal pain?: No Are you experiencing loss of taste or smell?: No Other Medical History Have you received the Flu Vaccine for this season: No (not in season) Have you received the Pneumonia Vaccine: Yes Review of Systems Review of Systems Review of systems:: pertinent systems reviewed and negative unless documented below Meds Home Medications and Allergies Home Medications ?Medication ?Instructions ?Recorded ?Confirmed ?Type albuterol sulfate 90 mcg/actuation 2 inh inhalation Q6HP PRN 04/15/24 03/24/25 History aerosol inhaler Shortness Of Breath montelukast 10 mg tablet 10 mg PO PM 04/15/24 03/24/25 History digoxin 125 mcg (0.125 mg) tablet 125 mcg PO DAILY #30 tabs 12/01/24 03/24/25 Rx apixaban 5 mg tablet (Eliquis) 5 mg PO BID 01/28/25 03/24/25 History losartan 100 mg tablet 100 mg PO DAILY 01/28/25 03/24/25 History alprazolam 1 mg tablet 1 mg PO BID 03/01/25 03/24/25 History celecoxib 50 mg capsule 50 mg PO DAILY 03/20/25 03/24/25 History ciclopirox 0.77 % topical cream 0 applic topical BID 03/20/25 03/24/25 History gabapentin 800 mg tablet 800 mg PO TID 03/20/25 03/24/25 History hydrocodone 10 mg-acetaminophen 10 - 325 tab PO QID 03/20/25 03/24/25 History 325 mg tablet bumetanide 1 mg tablet 1 mg PO DAILY #30 tabs 03/21/25 03/24/25 Rx carvedilol 25 mg tablet 25 mg PO BID 30 days #60 tabs 03/21/25 03/24/25 Rx spironolactone 25 mg tablet 25 mg PO DAILY 30 days #30 tabs 03/21/25 03/24/25 Rx azithromycin 250 mg tablet 250 mg PO QMWF #45 tabs 03/24/25 03/24/25 Rx calcium 600 mg (as 1 tab PO BID 03/24/25 03/24/25 History carbonate)-vitamin D3 5 mcg (200 unit) tablet cholecalciferol (vitamin D3) 1,250 50,000 unit PO WEEKLY 03/24/25 03/24/25 History mcg (50,000 unit) capsule doxycycline hyclate 100 mg capsule 100 mg PO BID 03/24/25 03/24/25 History fluticasone fur. 100 mcg-umeclid 1 inh inhalation DAILY 90 days #90 03/24/25 03/24/25 Rx 62.5 mcg-vilant 25 mcg ea inhalat.powder (Trelegy Ellipta) ipratropium 0.5 mg-albuterol 3 mg 3 ml inhalation QID PRN shortness 03/24/25 03/24/25 Rx (2.5 mg base)/3 mL nebulization of breath or wheezing 90 days #270 soln mL dicyclomine 20 mg tablet 20 mg PO TID #21 tabs 03/31/25 Rx New Prescriptions to Start Prescriptions: Allergies Allergy/AdvReac Type Severity Reaction Status Date / Time No Known Allergies Allergy Verified 03/24/25 13:16 Exam Data for Last 24 hours Vital signs and Labs for Last 24 Hours: Temp Pulse Resp BP Pulse Ox O2 Del Method O2 Flow Rate 98.1 F 94 H 20 217/108 H 96 Nasal Cannula 2 04/14/25 14:30 04/14/25 21:30 04/14/25 14:30 04/14/25 21:30 04/14/25 21:30 04/14/25 21:08 04/14/25 21:30 Laboratory Results - last 24 hr 04/14/25 14:48: PT 10.7, INR 0.96 04/14/25 14:54: WBC 7.8, RBC 4.00 L, Hgb 11.4 L, Hct 35.9 L, MCV 89.8, MCH 28.5, MCHC 31.8, RDW 13.4, Plt Count 204, MPV 10.3, Neut % (Auto) 72.4, Lymph % (Auto) 19.4, Gregory % (Auto) 5.9, Eos % (Auto) 1.5, Baso % (Auto) 0.4, Neut # (Auto) 5.7, Lymph # (Auto) 1.5, Gregory # (Auto) 0.5, Eos # (Auto) 0.1, Baso # (Auto) 0.0, Sodium 136, Potassium 4.4, Chloride 90 L, Carbon Dioxide > 40 H*, Anion Gap 10.4, BUN 13, Creatinine 0.70, Estimated Creat Clear 51, Estimated GFR 83, Est GFR ( Amer) 100, Glucose 139 H, Lactate 1.3, Calcium 10.7 H, Magnesium 1.9, Total Bilirubin 0.5, AST 33, ALT 12, Alkaline Phosphatase 48, Troponin I < 0.01, NT-Pro-B Natriuret Pep 1310 H, Total Protein 6.9, Albumin 4.2, Globulin 2.7, Albumin/Globulin Ratio 1.6 04/14/25 15:08: VBG pH 7.38, VBG pCO2 71.3 H, VBG pO2 44.1 H, VBG HCO3 41.6 H, VBG Total CO2 43.8 H, VBG O2 Saturation 77.2 H, VBG Base Excess 16.6 H, VBG Lactic Acid 2.0 04/14/25 15:09: SARS-CoV-2 (PCR) Not detected, Influenza A Untype (PCR) Not detected, Influenza Type B (PCR) Not detected 04/14/25 16:24: Urine Color Yellow, Urine Appearance Clear, Urine pH 7.5, Ur Specific [place] 1.010, Urine Protein Negative, Urine Glucose (UA) Negative, Urine Ketones Negative, Urine Blood Negative, Urine Nitrate Negative, Urine Bilirubin Negative, Urine Urobilinogen 0.2, Ur Leukocyte Esterase Negative, Urine RBC Occasional, Urine WBC 5-10, Ur Squamous Epith Cells 20-50, Urine Bacteria 2+ 04/14/25 18:05: Troponin I < 0.01 04/14/25 21:15: Troponin I < 0.01 I & O for Last 24 hours: Intake & Output 04/11/25 04/12/25 04/13/25 04/14/25 23:59 23:59 23:59 23:59 Intake Total 50 / 50 Balance 50 / 50 Weight 61.235 kg Constitutional Constitutional: no acute distress *Routine HEENT Exam Head: Present normocephalic Eye: Present EOMI and PERRL ENT: Present mucous membranes moist *Routine Neck Exam Neck: Present supple; Absent lymphadenopathy *Routine Respiratory Exam Respiratory: Present distant breath sounds and diminished air movement *Routine Cardiovascular Exam Cardiovascular: Present RRR *Routine Abdominal Exam Abdominal: Present soft and normoactive bowel sounds; Absent tenderness *Routine Rectal Exam Rectal:: deferred *Routine Genitalia Exam Genitalia:: deferred *Routine Extremities Exam Extremities: Absent cyanosis, clubbing or edema *Routine Skin Exam Skin: Present warm; Absent rash *Routine Neurological Exam Neurological: Present alert and oriented X3 Assessment and Plan *Assessment and plan (1) Pneumonia: Status: Acute Category: Medical Code(s): J18.9 - Pneumonia, unspecified organism (2) Asthma exacerbation in COPD: Status: Acute Category: Medical Code(s): J44.1 - Chronic obstructive pulmonary disease with (acute) exacerbation (3) COPD (chronic obstructive pulmonary disease): Status: Acute Category: Medical Code(s): J44.9 - Chronic obstructive pulmonary disease, unspecified (4) Tobacco abuse disorder: Status: Chronic Category: Medical Code(s): Z72.0 - Tobacco use (5) Respiratory failure with hypoxia: Status: Acute Category: Medical Code(s): J96.91 - Respiratory failure, unspecified with hypoxia (6) Hypercapnic respiratory failure: Status: Acute Qualifiers: Chronicity: acute on chronic Qualified Code(s): J96.22 - Acute and chronic respiratory failure with hypercapnia Category: Medical Code(s): J96.92 - Respiratory failure, unspecified with hypercapnia Plan Patient is a 70-year-old female with past medical history of active tobacco use, COPD on 2 L nasal cannula at baseline, heart failure with preserved ejection fraction, hypertension who presents to the hospital due to difficulty breathing as well as wheezing, chest pain. Patient on arriving to the hospital had systolic blood pressure of 200s. Patient mentions she has been having wheezing and difficulty breathing for past 1 week. Patient mentions she also has chest pain, she has abdominal pain, otherwise denied fever chills diarrhea. Patient mentions she has been actively using tobacco about 1 pack/day. A/P Shortness of breath, wheezing likely secondary to COPD exacerbation Acute on chronic hypoxic hypercapnic respiratory failure Community-acquired pneumonia Start Solu-Medrol Start DuoNebs scheduled Start Rocephin, azithromycin Check procalcitonin Check blood cultures Currently patient is requiring 4 L nasal cannula, uses 2 L nasal cannula at baseline, wean oxygen as tolerated Spiculated ovoid mass versus nodular consolidation in the posteromedial right upper lobe is mildly increased in size from 02/28/2025. This could represent malignancy or organizing pneumonia. Uncontrolled hypertension Started on IV Cardene due to BP not being on after multiple medication doses Monitor on cardiac telemetry Chest pain Troponin within normal limits x 3 Monitor on cardiac bell ringer troponin Consult cardiology Resume Eliquis History of atrial fibrillation Resume home Eliquis Monitor on cardiac telemetry Chronic medical conditions Heart failure with preserved ejection fraction Hypertension - Resume home medications DVT prophylaxis-on Eliquis
[2025-04-14] MEDS: AZITHROMYCIN 500 MG in 0.9 % SODIUM CHLORIDE 250 ML 250 MG IV (23:26)
[2025-04-14] MEDS: ALBUTEROL 0.083% 2.5 MG/3 ML NEB 20 MG IH (23:29)
--- NOTE | 2025-04-14 23:47 | PC.NURSE ---
Spoke with daughter iLna, updated on pt admission status. No questions at this time. [phone]
--- NOTE | 2025-04-14 23:59 | PC.NURSE ---
Patient arrived to floor via stretcher from ED at 23:58.
[2025-04-15] VITALS (35 sets, daily range): BP systolic 107–217; BP diastolic 49–109; PULSE 77–98; RESP 7–24; TEMP 36.1–36.8; O2SAT 88–99; BMI 24.3
[2025-04-15] MEDS: METHYLPREDNISOLONE SOD SUCC 40MG VIAL 40 MG IV ×3 (00:15→15:03)
[2025-04-15] MEDS: MAGNESIUM SULFATE IN WATER 2 GM/50 ML PIGGYBACK IV (00:15)
[2025-04-15] MEDS: LABETALOL 20MG/4ML SYRINGE 20 MG IV (01:30)
--- NOTE | 2025-04-15 02:05 | PC.NURSE ---
Patient's blood pressure has remained consistently elevated since her arrival to the second floor this shift (see vital sign assessment documentations). Patient was noted to have been hypertensive in the ER prior as well (see MAR for ER treatment taken for blood pressure). Datascope machine to perform vital signs has circulated between 10 minutes and 20 minutes to monitor her blood pressure. Nifedipine PO and Labetolol IV were given per SEP to intervene with her hypertensive blood pressures, but both medications have not shown any improvements. Patient expresses left-sided chest pain (new abrupt occurrence at this time) and continues to have symptoms of headaches, dizziness, and lightheadedness. Blood pressure at 02:00 was 214/89 (MAP 130). Gera Santa MD was notified. He stated that he will start a drip. Charge nurse (Belinda Sagastume RN) notified; charge nurse notified [employer]. Patient will be transferred to the ICU.
--- NOTE | 2025-04-15 02:38 | PC.NURSE ---
Patient arrived to ICU unit from [facility] via bed @02:23am
[2025-04-15] MEDS: NICARDIPINE HCL 25 MG in 0.9 % SODIUM CHLORIDE 240 ML 50 MG IV (02:39)
[2025-04-15] MEDS: FAMOTIDINE 20MG TABLET 20 MG PO ×3 (03:23→21:07)
[2025-04-15] MEDS: MORPHINE 2MG/ML SYRINGE 2 MG IV ×2 (03:38→06:27)
[2025-04-15 06:03] LABS: Hematocrit 34.7 % (37.0-47.0); Hemoglobin 11.0 g/dL (12.2-16.2); Immature Granulocytes % 0.3 %; Mean Corpuscular HGB Conc 31.7 g/dL (31.8-35.4); Mean Corpuscular Hemoglobin 27.7 pg (27.0-31.2); Mean Corpuscular Volume 87.4 fl (81-99); Nucleated Red Blood Cells % 0 %; Platelet Count 167 K/mm3 (142-424); Red Blood Count 3.97 M/mm3 (4.20-5.40); Red Cell Distribution Width-SD 42.5 fL; White Blood Count 7.1 K/mm3 (4.8-10.8)
[2025-04-15 06:13] LABS: Anion Gap 11.0 mEq/L (5-15); Blood Urea Nitrogen 13 mg/dl (7-17); Calcium 10.3 mg/dl (8.4-10.2); Carbon Dioxide 36 mmol/L (22.0-30.0); Chloride 91 mmol/L (98-107); Creatinine Clearance Estimated 49 mL/min (50-200); Creatinine,Serum 0.60 mg/dl (0.52-1.04); Estimated Glomerular Filt Rate 99 ml/min (>60); GFR (African American) 120 ML/MIN (>60); Glucose 161 mg/dl (74-100); Potassium 4.0 mmoL/L (3.5-5.1); Sodium 134 mmol/L (136-145)
[2025-04-15] MEDS: IPRATROPIUM/ALBUTEROL 3 ML NEB IH ×2 (06:20→11:01)
--- NOTE | 2025-04-15 06:27 | PC.NURSE ---
Pt complaining of mid sternal chest pain this AM. Pt states pain is same pain she was having last night that was relieved by 2mg Morphine. PRN Morphine is scheduled q4h and is not due at this time. Kiet notified and states to give another dose at this time.
--- NOTE | 2025-04-15 07:25 | EXP.ACUTE.PN ---
Subjective *Date: 04/15/25 *Time: 18:29 Interval history: Patient improved this morning. On 3 L oxygen on rounds. Afebrile. Clinically ill-appearing. Not wanting to work with therapy. Blood pressure better at 141/69. White count normal and kidney function normal. Tolerating p.o. intake. Medical Exam Vital signs and Labs for Last 24 Hours: Vital Signs Temp Pulse Pulse Pulse Resp BP BP 04/15/25 07:00 94 H 20 142/70 H 04/15/25 06:21 90 04/15/25 06:21 98 H 04/15/25 06:21 04/15/25 06:00 98 H 23 163/82 H 04/15/25 05:26 04/15/25 05:00 147/70 H 04/15/25 05:00 95 H 22 04/15/25 04:45 92 H 22 04/15/25 04:45 138/66 04/15/25 04:37 04/15/25 04:30 134/61 04/15/25 04:30 91 H 22 04/15/25 04:15 112/56 L 04/15/25 04:08 91 H 04/15/25 04:00 92 H 21 126/54 L 04/15/25 03:45 94 H 19 04/15/25 03:45 141/63 H 04/15/25 03:35 89 04/15/25 03:30 96 H 15 04/15/25 03:30 168/74 H 04/15/25 03:15 94 H 16 04/15/25 03:00 178/78 H 04/15/25 03:00 94 H 16 178/78 H 04/15/25 03:00 04/15/25 02:37 98.2 F 88 15 211/104 H 04/15/25 02:37 89 04/15/25 02:10 85 215/109 H 04/15/25 02:00 214/89 H 04/15/25 02:00 84 214/89 H 04/15/25 01:40 83 205/96 H 04/15/25 01:30 82 217/82 H 04/15/25 01:30 217/82 H 04/15/25 01:00 04/15/25 00:50 86 193/93 H 04/15/25 00:30 89 180/87 H 04/15/25 00:00 97.0 F L 91 H 18 04/14/25 23:48 98.1 F 88 18 186/92 H 04/14/25 23:30 89 04/14/25 21:30 94 H 217/108 H 04/14/25 21:08 96 H 224/109 H 04/14/25 21:07 95 H 216/108 H 04/14/25 21:00 96 H 227/112 H 04/14/25 20:30 97 H 226/110 H 04/14/25 20:07 95 H 212/113 H 04/14/25 20:02 95 H 212/106 H 04/14/25 20:01 95 H 217/104 H 04/14/25 20:00 95 H 216/102 H 04/14/25 19:30 91 H 194/98 H 04/14/25 19:01 97 H 198/109 H 04/14/25 18:34 98 H 181/103 H 04/14/25 18:30 107 H 187/124 H 04/14/25 18:00 102 H 194/111 H 04/14/25 17:56 101 H 193/124 H 04/14/25 17:30 99 H 205/107 H 04/14/25 17:00 100 H 207/106 H 04/14/25 16:30 102 H 209/111 H 04/14/25 16:13 101 H 213/107 H 04/14/25 15:45 95 H 162/96 H 04/14/25 15:30 96 H 162/96 H 04/14/25 15:24 97 H 04/14/25 15:12 96 H 04/14/25 14:30 98.1 F 105 H 20 BP Pulse Ox O2 Del Method O2 Flow Rate 04/15/25 07:00 92 L Nasal Cannula 3 04/15/25 06:21 04/15/25 06:21 04/15/25 06:21 99 Nasal Cannula 3 04/15/25 06:00 92 L Nasal Cannula 2 04/15/25 05:26 93 L Nasal Cannula 2 04/15/25 05:00 04/15/25 05:00 94 L Nasal Cannula 3 04/15/25 04:45 94 L Nasal Cannula 3 04/15/25 04:45 04/15/25 04:37 Nasal Cannula 3 04/15/25 04:30 Nasal Cannula 3 04/15/25 04:30 94 L Nasal Cannula 3 04/15/25 04:15 04/15/25 04:08 04/15/25 04:00 95 Nasal Cannula 3 04/15/25 03:45 93 L Nasal Cannula 3 04/15/25 03:45 04/15/25 03:35 Nasal Cannula 95 04/15/25 03:30 92 L Nasal Cannula 3 04/15/25 03:30 04/15/25 03:15 90 L Nasal Cannula 3 04/15/25 03:00 04/15/25 03:00 95 Nasal Cannula 3 04/15/25 03:00 Nasal Cannula 3 04/15/25 02:37 94 L Nasal Cannula 3 04/15/25 02:37 04/15/25 02:10 04/15/25 02:00 04/15/25 02:00 04/15/25 01:40 93 L Nasal Cannula 3 04/15/25 01:30 04/15/25 01:30 04/15/25 01:00 Nasal Cannula 3 04/15/25 00:50 90 L Nasal Cannula 3 04/15/25 00:30 94 L Nasal Cannula 2 04/15/25 00:00 205/104 H 98 Nasal Cannula 3 04/14/25 23:48 04/14/25 23:30 04/14/25 21:30 96 2 04/14/25 21:08 94 L Nasal Cannula 2 04/14/25 21:07 96 Nasal Cannula 2 04/14/25 21:00 94 L Nasal Cannula 2 04/14/25 20:30 91 L Nasal Cannula 2 04/14/25 20:07 95 Nasal Cannula 2 04/14/25 20:02 96 Nasal Cannula 2 04/14/25 20:01 97 Nasal Cannula 2 04/14/25 20:00 96 Nasal Cannula 2 04/14/25 19:30 97 Nasal Cannula 2 04/14/25 19:01 99 Nasal Cannula 2 04/14/25 18:34 100 Nasal Cannula 2 04/14/25 18:30 95 Nasal Cannula 2 04/14/25 18:00 95 04/14/25 17:56 95 Nasal Cannula 2 04/14/25 17:30 96 Nasal Cannula 2 04/14/25 17:00 95 Nasal Cannula 2 04/14/25 16:30 95 Nasal Cannula 2 04/14/25 16:13 95 Nasal Cannula 2 04/14/25 15:45 97 04/14/25 15:30 97 04/14/25 15:24 96 04/14/25 15:12 98 04/14/25 14:30 181/81 H 79 L Nasal Cannula 3 Intake and Output 04/14/25 04/14/25 04/15/25 15:59 23:59 07:59 Intake Total 50 / 100 426.667 / 426.667 Output Total 650 / 650 Balance 50 / -100 -223.333 / -223.333 Intake: Intake, Oral Amount 50 / 50 Intake, Total IV Amount 50 / 50 376.667 / 376.667 Azithromycin 500 mg In 0.9 % 250 / 250 Sodium Chloride 250 ml @ 250 mls/hr IV Q24H [facility] Rx#: [id number] Ceftriaxone Sodium 1 gm In 0.9 50 / 50 % Sodium Chloride 50 ml @ 100 mls/hr IV ONCE ONE Rx#:[id number] Magnesium Sulfate in Water 2 gm 50 / 50 In 50 ml @ 50 mls/hr IV ONCE ONE Rx#:[id number] Nicardipine HCl 25 mg In 0.9 % 76.667 / 76.667 Sodium Chloride 240 ml @ 5 MG/ HR 50 mls/hr IV .Q5H [facility] Rx#: [id number] Output: Output, Urine Amount 650 / 650 Other: Number of Unmeasured Voids 0 Weight 61.235 kg 59.874 kg Patient Weight 04/15/25 23:59 Weight 59.874 kg Laboratory Results - last 24 hr 04/14/25 14:48: PT 10.7, INR 0.96 04/14/25 14:54: WBC 7.8, RBC 4.00 L, Hgb 11.4 L, Hct 35.9 L, MCV 89.8, MCH 28.5, MCHC 31.8, RDW 13.4, Plt Count 204, MPV 10.3, Neut % (Auto) 72.4, Lymph % (Auto) 19.4, Ritchie % (Auto) 5.9, Eos % (Auto) 1.5, Baso % (Auto) 0.4, Neut # (Auto) 5.7, Lymph # (Auto) 1.5, Ritchie # (Auto) 0.5, Eos # (Auto) 0.1, Baso # (Auto) 0.0, Sodium 136, Potassium 4.4, Chloride 90 L, Carbon Dioxide > 40 H*, Anion Gap 10.4, BUN 13, Creatinine 0.70, Estimated Creat Clear 51, Estimated GFR 83, Est GFR ( Amer) 100, Glucose 139 H, Lactate 1.3, Calcium 10.7 H, Magnesium 1.9, Total Bilirubin 0.5, AST 33, ALT 12, Alkaline Phosphatase 48, Troponin I < 0.01, NT-Pro-B Natriuret Pep 1310 H, Total Protein 6.9, Albumin 4.2, Globulin 2.7, Albumin/Globulin Ratio 1.6 04/14/25 15:08: VBG pH 7.38, VBG pCO2 71.3 H, VBG pO2 44.1 H, VBG HCO3 41.6 H, VBG Total CO2 43.8 H, VBG O2 Saturation 77.2 H, VBG Base Excess 16.6 H, VBG Lactic Acid 2.0 04/14/25 15:09: SARS-CoV-2 (PCR) Not detected, Influenza A Untype (PCR) Not detected, Influenza Type B (PCR) Not detected 04/14/25 16:24: Urine Color Yellow, Urine Appearance Clear, Urine pH 7.5, Ur Specific [place] 1.010, Urine Protein Negative, Urine Glucose (UA) Negative, Urine Ketones Negative, Urine Blood Negative, Urine Nitrate Negative, Urine Bilirubin Negative, Urine Urobilinogen 0.2, Ur Leukocyte Esterase Negative, Urine RBC Occasional, Urine WBC 5-10, Ur Squamous Epith Cells 20-50, Urine Bacteria 2+ 04/14/25 18:05: Troponin I < 0.01 04/14/25 21:15: Troponin I < 0.01 04/15/25 05:50: WBC 7.1, RBC 3.97 L, Hgb 11.0 L, Hct 34.7 L, MCV 87.4, MCH 27.7, MCHC 31.7 L, RDW 13.2, Plt Count 167, MPV 9.6, Neut % (Auto) 90.4 H, Lymph % (Auto) 8.5 L, Ritchie % (Auto) 0.7 L, Eos % (Auto) 0.0 L, Baso % (Auto) 0.1, Neut # (Auto) 6.4, Lymph # (Auto) 0.6 L, Ritchie # (Auto) 0.1, Eos # (Auto) 0.0, Baso # (Auto) 0.0, Sodium 134 L, Potassium 4.0, Chloride 91 L, Carbon Dioxide 36 H, Anion Gap 11.0, BUN 13, Creatinine 0.60, Estimated Creat Clear 49, Estimated GFR 99, Est GFR ( Amer) 120, Glucose 161 H, Calcium 10.3 H I & O for Labs for Last 24 Hours: Intake & Output 04/12/25 04/13/25 04/14/25 04/15/25 23:59 23:59 23:59 23:59 Intake Total 50 / 100 426.667 / 426.667 Output Total 650 / 650 Balance 50 / -100 -223.333 / -223.333 Weight 61.235 kg 59.874 kg Constitutional: Present mild distress, average body habitus, chronically ill appearing, disheveled and cooperative Head: Present atraumatic and normocephalic ENT: Present normal exam Respiratory: Present prolonged expiratory phase, rhonchi, wheezes, diminished air movement and normal respiratory effort; Absent crackles Cardiac: Present Regular Rate Comment:: Irregularly irregular GI: Present soft, tenderness (Nonfocal), normal bowel sounds and diminished bowel sounds; Absent distention Extremities: Present normal inspection and full ROM Comment:: Scabbed lesion right distal peace approximately nickel in size, present on admission. Consistent with arterial wound that is slow to heal Skin: Present intact; Absent erythema Neuro: Present Cranial Nerve 2-12 Intact, Grossly Intact, alert, awake, oriented x 3 and moves all extremities Assessment and Plan *Assessment and plan (1) Acute and chronic respiratory failure with hypercapnia: Status: Acute Category: Medical Code(s): J96.22 - Acute and chronic respiratory failure with hypercapnia (2) Pneumonia: Status: Acute Category: Medical Code(s): J18.9 - Pneumonia, unspecified organism (3) Asthma exacerbation in COPD: Status: Acute Category: Medical Code(s): J44.1 - Chronic obstructive pulmonary disease with (acute) exacerbation (4) COPD (chronic obstructive pulmonary disease): Status: Acute Category: Medical Code(s): J44.9 - Chronic obstructive pulmonary disease, unspecified (5) Tobacco abuse disorder: Status: Chronic Category: Medical Code(s): Z72.0 - Tobacco use (6) Respiratory failure with hypoxia: Status: Acute Category: Medical Code(s): J96.91 - Respiratory failure, unspecified with hypoxia (7) Hypercapnic respiratory failure: Status: Acute Qualifiers: Chronicity: acute on chronic Qualified Code(s): J96.22 - Acute and chronic respiratory failure with hypercapnia Category: Medical Code(s): J96.92 - Respiratory failure, unspecified with hypercapnia Plan Patient is a 70-year-old female with past medical history of active tobacco use, COPD on 2 L nasal cannula at baseline, heart failure with preserved ejection fraction, hypertension who presents to the hospital due to difficulty breathing as well as wheezing, chest pain. Patient on arriving to the hospital had systolic blood pressure of 200s. Patient mentions she has been having wheezing and difficulty breathing for past 1 week. Patient mentions she also has chest pain, she has abdominal pain, otherwise denied fever chills diarrhea. Patient mentions she has been actively using tobacco about 1 pack/day. Showing some improvement. Continues to require inpatient management. Problems addressed as follows: Shortness of breath, wheezing likely secondary to COPD exacerbation Acute on chronic hypoxic hypercapnic respiratory failure Community-acquired pneumonia, ruled out - Pulmonology consulted, discussed case today. Recommend continuing supplemental oxygen as needed for goal sats greater 90%. Currently on 2 to 2-1/2 L which is her baseline. Will initiate BiPAP therapy at night of 16/8, rate of 16, FiO2 30% - Resume Trelegy 100 inhaler along with DuoNebs every 6 hours as needed - White count normal at 7.1, will stop ceftriaxone and steroids. Complete additional dose of azithromycin 500 mg IV. - Repeat CBC, CMP, magnesium ordered for the morning. - Spiculated ovoid mass versus nodular consolidation in the posteromedial right upper lobe is mildly increased in size from 02/28/2025. This could represent malignancy or organizing pneumonia. Pulmonology again discussing possible biopsy. Patient contemplating at this time. Uncontrolled hypertension Paroxysmal A-fib Heart failure preserved ejection fraction, stable, present on admission - Blood pressure better by morning. Resumed home regimen including Bumex 1 mg daily, carvedilol 25 mg twice daily, digoxin 125 mcg, irbesartan 300 mg daily, and spironolactone 25 mg daily - No longer necessitating nicardipine for improvement in blood pressure. Stable on oral regimen - Continue Eliquis 5mg twice daily - Rate controlled on morning rounds. Discontinue telemetry Abdominal pain: Appears constipated. Large stool ball in rectum on CT of abdomen. Administer mineral oil enema x 1 today. Monitor for bowel movement. Continue bowel regimen with docusate twice daily DVT prophylaxis-on Eliquis Full code Regular diet
[2025-04-15] MEDS: GABAPENTIN 800MG TABLET 800 MG PO ×3 (08:46→21:07)
[2025-04-15] MEDS: SPIRONOLACTONE 25MG TABLET 25 MG PO (08:46)
[2025-04-15] MEDS: MAGNESIUM OXIDE 400MG TABLET 400 MG PO (08:46)
[2025-04-15] MEDS: APIXABAN 5MG TABLET 5 MG PO ×2 (08:46→21:07)
[2025-04-15] MEDS: CARVEDILOL 25MG TABLET 25 MG PO ×2 (08:47→21:07)
[2025-04-15] MEDS: BUMETANIDE 1 MG TABLET PO (08:48)
[2025-04-15] MEDS: DIGOXIN 0.125MG TABLET 125 MCG PO (08:48)
--- NOTE | 2025-04-15 09:52 | EXP.CARD.CON ---
History of Present Illness History of Present Illness Consult date: 04/15/25 Chief complaint: SOA History of present illness: 70-year-old white female with history of paroxysmal atrial fibrillation COPD and ongoing tobacco use. Admitted with COPD exacerbation. We are consulted for elevated blood pressure and chest pain. Ms. Balbuena has advanced COPD with chronic respiratory failure on 2 to 3 L/min at baseline. She continues to smoke 1 pack/day and has frequent admissions for COPD exacerbation. She presented yesterday with worsening shortness of breath and blood pressure 200 with left-sided constant chest pain worse with deep breathing. She was admitted to ICU started on Cardene, steroids, DuoNebs, antibiotics. This morning her blood pressure is 140s on home meds. She is breathing better and states the chest pain is significantly improved. She had a normal 2D echo here in January. Her EKG shows sinus rhythm without ischemic changes and she has normal serial troponins. [facility] Disclaimer: The information contained in this section may have been updated after the patient was seen, as this information can be updated by other users. Medical History Unspecified disturbances of skin sensation Other specified symptoms and signs involving the circulatory and respiratory systems HTN (hypertension) HLD (hyperlipidemia) Pneumonia Fecal occult blood test positive Sepsis without septic shock Lymphedema Physical deconditioning General weakness Lung mass Hypomagnesemia Acute hypokalemia Chronic hyponatremia Generalized weakness COPD mixed type Lung nodule Hypokalemia Elevated troponin Nocturnal hypoxemia Pulmonary emphysema Incidental pulmonary nodule, greater than or equal to 8mm Smoking greater than 30 pack years Dyspnea on exertion Tobacco abuse disorder Tobacco abuse counseling Cervical cancer Surgical History History of dilation and curettage History of back surgery Family History Other Diabetes Social History Smoking Status: Current some day smoker tobacco type: cigarettes packs per day: 2 second hand exposure: Yes alcohol intake: never substance use type: denies use current occupational status: unemployed Travel in the last 8 weeks?: None household members: spouse housing: house current occupational exposures/hazards: No Have you lived/traveled outside [place] in past 30 days?: No Contact w/someone who lives/traveled outside [place] past 30 days?: No Exposure to someone with infectious disease in past 14 days?: No Do you have a fever (greater than 100.4 F or 38 C)?: No Have you tested positive for COVID-19?: No Exposed to someone with COVID-19 in past 14 days?: No Do you have a sore throat?: No Do you have a cough?: Yes Do you have any weakness?: Yes Are you experiencing any nausea/vomitting?: No Do you have any diarrhea?: No Are you experiencing any unusual bleeding?: No Do you have any muscle aches/pain?: No Do you have any abdominal pain?: No Are you experiencing loss of taste or smell?: No Review of Systems Constitutional Constitutional: Denies fatigue and Reports weakness Eyes Eyes: Denies loss of vision ENT Ears, Nose, Mouth, and Throat: Denies hearing loss and Denies vertigo *Cardiovascular Cardiovascular: Reports chest pain, Reports dyspnea and Denies syncope *Respiratory Respiratory: Reports cough, Reports dyspnea and Reports wheezing *Gastrointestinal Gastrointestinal: Denies change in stool character, Denies nausea and Denies vomiting *Musculoskeletal Musculoskeletal: Denies muscle weakness Integumentary/Breasts Skin/Breast: Denies changing lesions *Neurologic Neurologic: Denies loss of vision, Denies syncope, Denies vertigo and Reports weakness Endocrine Endocrine: Denies fatigue Allergic/Immunologic Allergic/Immunologic: Reports wheezing Exam Data for Last 24 hours Vital signs and Labs for Last 24 Hours: Temp Pulse Resp BP Pulse Ox O2 Del Method O2 Flow Rate 98.2 F 98 H 20 148/72 H 92 L Nasal Cannula 3 04/15/25 02:37 04/15/25 09:00 04/15/25 09:00 04/15/25 09:00 04/15/25 09:00 04/15/25 09:00 04/15/25 09:00 Laboratory Results - last 24 hr 04/14/25 14:48: PT 10.7, INR 0.96 04/14/25 14:54: WBC 7.8, RBC 4.00 L, Hgb 11.4 L, Hct 35.9 L, MCV 89.8, MCH 28.5, MCHC 31.8, RDW 13.4, Plt Count 204, MPV 10.3, Neut % (Auto) 72.4, Lymph % (Auto) 19.4, Terrell % (Auto) 5.9, Eos % (Auto) 1.5, Baso % (Auto) 0.4, Neut # (Auto) 5.7, Lymph # (Auto) 1.5, Terrell # (Auto) 0.5, Eos # (Auto) 0.1, Baso # (Auto) 0.0, Sodium 136, Potassium 4.4, Chloride 90 L, Carbon Dioxide > 40 H*, Anion Gap 10.4, BUN 13, Creatinine 0.70, Estimated Creat Clear 51, Estimated GFR 83, Est GFR ( Amer) 100, Glucose 139 H, Lactate 1.3, Calcium 10.7 H, Magnesium 1.9, Total Bilirubin 0.5, AST 33, ALT 12, Alkaline Phosphatase 48, Troponin I < 0.01, NT-Pro-B Natriuret Pep 1310 H, Total Protein 6.9, Albumin 4.2, Globulin 2.7, Albumin/Globulin Ratio 1.6 04/14/25 15:08: VBG pH 7.38, VBG pCO2 71.3 H, VBG pO2 44.1 H, VBG HCO3 41.6 H, VBG Total CO2 43.8 H, VBG O2 Saturation 77.2 H, VBG Base Excess 16.6 H, VBG Lactic Acid 2.0 04/14/25 15:09: SARS-CoV-2 (PCR) Not detected, Influenza A Untype (PCR) Not detected, Influenza Type B (PCR) Not detected 04/14/25 16:24: Urine Color Yellow, Urine Appearance Clear, Urine pH 7.5, Ur Specific [place] 1.010, Urine Protein Negative, Urine Glucose (UA) Negative, Urine Ketones Negative, Urine Blood Negative, Urine Nitrate Negative, Urine Bilirubin Negative, Urine Urobilinogen 0.2, Ur Leukocyte Esterase Negative, Urine RBC Occasional, Urine WBC 5-10, Ur Squamous Epith Cells 20-50, Urine Bacteria 2+ 04/14/25 18:05: Troponin I < 0.01 04/14/25 21:15: Troponin I < 0.01 04/15/25 05:50: WBC 7.1, RBC 3.97 L, Hgb 11.0 L, Hct 34.7 L, MCV 87.4, MCH 27.7, MCHC 31.7 L, RDW 13.2, Plt Count 167, MPV 9.6, Neut % (Auto) 90.4 H, Lymph % (Auto) 8.5 L, Terrell % (Auto) 0.7 L, Eos % (Auto) 0.0 L, Baso % (Auto) 0.1, Neut # (Auto) 6.4, Lymph # (Auto) 0.6 L, Terrell # (Auto) 0.1, Eos # (Auto) 0.0, Baso # (Auto) 0.0, Sodium 134 L, Potassium 4.0, Chloride 91 L, Carbon Dioxide 36 H, Anion Gap 11.0, BUN 13, Creatinine 0.60, Estimated Creat Clear 49, Estimated GFR 99, Est GFR ( Amer) 120, Glucose 161 H, Calcium 10.3 H I & O for Last 24 hours: Intake & Output 04/12/25 04/13/25 04/14/25 04/15/25 23:59 23:59 23:59 23:59 Intake Total 50 / 100 860.667 / 860.667 Output Total 650 / 650 Balance 50 / -100 210.667 / 210.667 Weight 135 lb 132 lb Constitutional Constitutional: no acute distress and cooperative *Routine HEENT Exam Eye: Present PERRL *Routine Respiratory Exam Respiratory: Present wheezes; Absent accessory muscle use, CTA bilaterally or crackles Comments: Severely reduced breath sounds throughout, wheezing noted by laterally *Routine Cardiovascular Exam Cardiovascular: Present RRR, Normal S1 and Normal S2; Absent murmur, gallop or rubs *Routine Abdominal Exam Abdominal: Present soft; Absent tenderness *Routine Extremities Exam Extremities: Present pulses intact; Absent cyanosis or edema *Routine Skin Exam Skin: Present intact; Absent erythema or wounds *Routine Neurological Exam Neurological: Present alert and oriented X3 Routine Psychiatric Exam Psychiatric: Present cooperative Meds Home Medications and Allergies Home Medications ?Medication ?Instructions ?Recorded ?Confirmed ?Type albuterol sulfate 90 mcg/actuation 2 inh inhalation Q6HP PRN 04/15/24 04/15/25 History aerosol inhaler Shortness Of Breath montelukast 10 mg tablet 10 mg PO HS 04/15/24 04/15/25 History digoxin 125 mcg (0.125 mg) tablet 125 mcg PO DAILY #30 tabs 12/01/24 04/15/25 Rx apixaban 5 mg tablet (Eliquis) 5 mg PO BID 01/28/25 04/15/25 History losartan 100 mg tablet 100 mg PO DAILY 01/28/25 04/15/25 History alprazolam 1 mg tablet 1 mg PO BID 03/01/25 04/15/25 History celecoxib 50 mg capsule 50 mg PO DAILY 03/20/25 04/15/25 History gabapentin 800 mg tablet 800 mg PO TID 03/20/25 04/15/25 History hydrocodone 10 mg-acetaminophen 1 tab PO QID 10/325MG 03/20/25 04/15/25 History 325 mg tablet bumetanide 1 mg tablet 1 mg PO DAILY #30 tabs 03/21/25 04/15/25 Rx carvedilol 25 mg tablet 25 mg PO BID 30 days #60 tabs 03/21/25 04/15/25 Rx spironolactone 25 mg tablet 25 mg PO DAILY 30 days #30 tabs 03/21/25 04/15/25 Rx azithromycin 250 mg tablet 250 mg PO QMWF #45 tabs 03/24/25 04/15/25 Rx calcium 600 mg (as 1 tab PO BID 03/24/25 04/15/25 History carbonate)-vitamin D3 5 mcg (200 unit) tablet cholecalciferol (vitamin D3) 1,250 50,000 unit PO WEEKLY 03/24/25 04/15/25 History mcg (50,000 unit) capsule fluticasone fur. 100 mcg-umeclid 1 inh inhalation DAILY 90 days #90 03/24/25 04/15/25 Rx 62.5 mcg-vilant 25 mcg ea inhalat.powder (Trelegy Ellipta) ipratropium 0.5 mg-albuterol 3 mg 3 ml inhalation QID PRN shortness 03/24/25 04/15/25 Rx (2.5 mg base)/3 mL nebulization of breath or wheezing 90 days #270 soln mL ciclopirox 0.77 % topical cream 1 applic topical BID 04/15/25 04/15/25 History magnesium oxide 500 mg PO DAILY 04/15/25 04/15/25 History metoprolol succinate 100 mg 100 mg PO HS 04/15/25 04/15/25 History tablet,extended release 24 hr potassium chloride 20 mEq 20 meq PO BID 04/15/25 04/15/25 History tablet,extended release(part/cryst) New Prescriptions to Start Prescriptions: Allergies Allergy/AdvReac Type Severity Reaction Status Date / Time No Known Allergies Allergy Verified 03/24/25 13:16 Assessment and Plan *Assessment and plan (1) Pleuritic chest pain: Status: Acute Category: Medical Code(s): R07.81 - Pleurodynia (2) Acute exacerbation of chronic obstructive pulmonary disease: Status: Acute Category: Medical Code(s): J44.1 - Chronic obstructive pulmonary disease with (acute) exacerbation (3) Paroxysmal atrial fibrillation: Status: Acute Category: Medical Code(s): I48.0 - Paroxysmal atrial fibrillation (4) Hypertension: Status: Acute Category: Medical Code(s): I10 - Essential (primary) hypertension Plan Pleuritic chest pain - Sounds noncardiac in nature, constant left-sided pain worse with deep breathing in the setting of COPD exacerbation - EKG sinus rhythm without ischemic changes - Normal serial troponin - Normal echo here in January - Symptoms improving with blood pressure control and COPD treatment Accelerated hypertension - BP greater than 200 systolic on arrival but was in the setting of acute hypoxic respiratory failure - Cardene drip is being weaned off, BP improving on home meds and with O2 support Paroxysmal atrial fibrillation - Normal sinus rhythm here - Continue home dose Eliquis CV stable, no intervention warranted at this time. Recommending complete tobacco cessation and outpatient follow-up with cardiology and pulmonology.
--- NOTE | 2025-04-15 10:17 | HMH.OTEV ---
OT Evaluation Rehab OT IP Evaluation Start: 04/15/25 07:21 Freq: ONCE Status: Active Protocol: Document 04/15/25 09:48 [facility] (Rec: 04/15/25 10:16 [facility] [id number]) Rehab OT IP Assessment Subjective History Pt oriented x3 on arrival. Pt agreeable to engage in therapy evaluation. Pt admitted on 04/15/25 due to COPD exacerbation. History and physical: Patient is a 70-year-old female with past medical history of active tobacco use, COPD on 2 L nasal cannula at baseline, heart failure with preserved ejection fraction, hypertension who presents to the hospital due to difficulty breathing as well as wheezing, chest pain. Patient on arriving to the hospital had systolic blood pressure of 200s. Patient mentions she has been having wheezing and difficulty breathing for past 1 week. Patient mentions she also has chest pain, she has abdominal pain, otherwise denied fever chills diarrhea. Patient mentions she has been actively using tobacco about 1 pack/day. Subjective pt was living at home with her son and claims she was able to complete all ADL and simple IADL tasks independently prior to hospital stay. Pt's son completed heavier airplane pilot photogrammetry. Pt was on oxygen at all times. She also used a rolling walker during functional transfers. Upon therapy arrival, pt was supine in bed receiving medications from nursing team. pt was agreeable and willing to participate in tx session. pt engaged in bed mobility engaging in scooting and supine to sitting EoB with Sup A. Once seated EoB, pt claimed she did not want to stand or walk during tx session. pt demonstrated good static sitting balance seated EoB ~ 2 min with Sup A. pt then engaged in transition back to supine in bed with Sup A. pt left safely supine in bed with call button and other necessary items within reach . Objective Patient Orientation Person,Place,Name,Birthday Right Upper WNL Extremity Gross ROM Left Upper Extremity WNL Gross ROM Bed Mobility bed mobility-scooting,bed mobility - supine/sit Assist Level Supervision/Stand by Decrease in No Endurance Rehab OT IP prob,goals,plan Problems Date of Evaluation: 04/15/25 OT IP Problems Bed Mobility,Transfers,Balance,Self care,Safety Rehab Potential Rehab Potential Good Equipment Needs Assistive Devices Rolling / Wheeled Walker Plan OT intervention Plan Bed Mobility,Transfers,Balance,Self care,Safety, Therapeutic Exercise OT Plan Frequency Daily Duration LOS Discharge Goals Bed Mobility Ability Standby Assistance Sit to Stand Chair Supervision/Stand by Transfer Ability Chair Transfer Contact Guard/Hand Hold Ability Chair Transfer Sit to/from Ambulatory Technique Chair Transfer Rolling Walker Assistive Devices Lower Body Dressing Contact Guard Ability Performing Toilet Standby Assistance Hygiene Ability Overall Commode/ Standby Assistance Toilet Transfer Ability Commode/Toilet Sit to/from Ambulatory Transfer Technique Discharge Plan OT Discharge Plan Pt will continue to be seen for OT services while at [facility]. Pt appears to be close to baseline, however due to pt's limited engagement in therapy evaluation further tx is required. Pt can return home with son once she is medically stable per physician. Therapist does recommend OT evaluation upon returning home for continued skilled therapy services. Eval Complexity Eval Charge Codes 68599 - Moderate Complexity PHYSICIAN CERTIFICATION: I certify the specified therapy services for Iqra Balbuena are required, authorized, and reviewed every 30 days.
--- NOTE | 2025-04-15 11:32 | SW/DCPLANNER ---
Spoke with patient regarding home health services once she is medically stable and ready for discharge. Patient stated that she is not interested in home health and that her son lives with her and helps her out. Leonel Thomas
--- NOTE | 2025-04-15 11:43 | HMH.PTEV ---
Physical Therapy Evaluation Rehab PT IP Evaluation Start: 04/15/25 07:21 Freq: ONCE Status: Active Protocol: Document 04/15/25 11:24 [facility] (Rec: 04/15/25 11:42 [facility] [id number]) Subjective/History History History Per H&P: Patient is a 70-year-old female with past medical history of active tobacco use, COPD on 2 L nasal cannula at baseline, heart failure with preserved ejection fraction, hypertension who presents to the hospital due to difficulty breathing as well as wheezing, chest pain. Patient on arriving to the hospital had systolic blood pressure of 200s. Patient mentions she has been having wheezing and difficulty breathing for past 1 week. Patient mentions she also has chest pain, she has abdominal pain, otherwise denied fever chills diarrhea. Patient mentions she has been actively using tobacco about 1 pack/day. Subjective Subjective Pt was living at home with her son and claims she was able to complete all ADL and simple IADL tasks independently prior to hospital stay. Pt's son completed heavier buyer liaison. Pt was on oxygen at all times. She also used a rolling walker during functional transfers and ambulation. [facility] How much help from another person do you currently need... Turning from your A little back to your side while in a flat bed without using bedrails? Moving from lying on A little back to sitting on the side of a flat bed without using bedrails? Moving to and from a A little bed to a chair ( including a wheelchair)? Standing up from a A little chair using your arms? (e.g., wheelchair, bedside chair) Walking in hospital A little room? Climbing 3-5 steps A little with a railing? Mobility Score 18 Mobility Level [facility] Mobility 6 Walk 10 steps or more Mobility Calculator Rehab PT IP Eval Objective Appearance Patient Behavior Patient Baseline Patient Orientation Person,Situation Difficulty following mild instructions Speech Pattern Clear Ambulation Patient Able to No Ambulate Balance Ability to Arise Able, uses arms to help Sitting Balance Steady, safe Standing Balance Steady, wide stance Dynamic Sitting Good Balance Ability Dynamic Standing Good Balance Ability Transfers Bed Transfer Ability Supervision/Stand by Rehab PT IP prob,goals,plan Problems Date of Evaluation: 04/15/25 PT IP Problems Bed Mobility,Transfers,Gait,Balance,Self care,Safety Rehab Potential Rehab Potential Good Plan PT Intervention Plan Bed Mobility,Transfers,Gait,Balance,Self care,Safety, Therapeutic Exercise Other Intervention 1-2 Plan PT Plan Frequency Daily Duration LOS Discharge Goals Bed Transfer Ability Independent Sit to Stand Chair Independent Transfer Ability Discharge Plan PT Discharge Plan Initial physical therapy evaluation performed. Patient presents below baseline at this time in functional mobility, transfers, and strength. Evaluation limited by limited pt participation. Pt would benefit from skilled PT while at [facility] to prevent further functional decline and maximize safety with mobility. Pt most appropriate to d/c home when deemed medically necessary d/t current level of mobility, home set-up, and family support. PT recommending home health PT services to address deficits. Eval Complexity Eval Charge Codes 16599 - Moderate Complexity PHYSICIAN CERTIFICATION: I certify the specified therapy services for Iqra Balbuena are required, authorized, and reviewed every 30 days.
--- NOTE | 2025-04-15 12:19 | PC.NURSE ---
pt left the unit with manager multimedia at this time
--- NOTE | 2025-04-15 14:19 | EXP.PULM.CON ---
History of Present Illness History of present illness: Ms. Balbuena is a 78-year-old female current smoker greater than [id number] smoking significantly cut down her smoking about 1/4 pack a day, COPD, chronic hypoxic respiratory failure, worsening right upper lobe pulmonary nodule and mediastinal lymphadenopathy recently discharged from the hospital with home BiPAP therapy presented to the hospital from and complaints of abdominal discomfort. [facility] Disclaimer: The information contained in this section may have been updated after the patient was seen, as this information can be updated by other users. Medical History (Updated 04/15/25 @ 14:24 by Srini Gan MD) Acute and chronic respiratory failure with hypercapnia Unspecified disturbances of skin sensation Other specified symptoms and signs involving the circulatory and respiratory systems HTN (hypertension) HLD (hyperlipidemia) Pneumonia Fecal occult blood test positive Sepsis without septic shock Lymphedema Physical deconditioning General weakness Lung mass Hypomagnesemia Acute hypokalemia Chronic hyponatremia Generalized weakness COPD mixed type Lung nodule Hypokalemia Elevated troponin Nocturnal hypoxemia Pulmonary emphysema Incidental pulmonary nodule, greater than or equal to 8mm Smoking greater than 30 pack years Dyspnea on exertion Tobacco abuse disorder Tobacco abuse counseling Cervical cancer Surgical History History of dilation and curettage History of back surgery Family History Other Diabetes Social History Smoking Status: Current some day smoker tobacco type: cigarettes packs per day: 2 second hand exposure: Yes alcohol intake: never substance use type: denies use current occupational status: unemployed Travel in the last 8 weeks?: None household members: spouse housing: house current occupational exposures/hazards: No Have you lived/traveled outside [place] in past 30 days?: No Contact w/someone who lives/traveled outside [place] past 30 days?: No Exposure to someone with infectious disease in past 14 days?: No Do you have a fever (greater than 100.4 F or 38 C)?: No Have you tested positive for COVID-19?: No Exposed to someone with COVID-19 in past 14 days?: No Do you have a sore throat?: No Do you have a cough?: Yes Do you have any weakness?: Yes Are you experiencing any nausea/vomitting?: No Do you have any diarrhea?: No Are you experiencing any unusual bleeding?: No Do you have any muscle aches/pain?: No Do you have any abdominal pain?: No Are you experiencing loss of taste or smell?: No Review of Systems Constitutional Constitutional: Reports fatigue and Reports weakness Eyes Eyes: Denies itchy eyes and Denies loss of vision ENT Ears, Nose, Mouth, and Throat: Denies lip swelling, Denies throat swelling and Denies vertigo *Cardiovascular Cardiovascular: Reports dyspnea, Reports dyspnea on exertion and Denies syncope *Respiratory Respiratory: Denies change in phlegm color, Reports chest congestion, Reports cough, Reports dyspnea, Reports dyspnea on exertion, Denies excessive phlegm production and Denies wheezing *Gastrointestinal Gastrointestinal: Denies abdominal pain, Denies belching, Reports change in stool character, Denies cramping and Reports diarrhea *Musculoskeletal Musculoskeletal: Reports back pain, Reports myalgias and Reports other (No small joint swelling or Pain) *Neurologic Neurologic: Denies loss of vision, Denies syncope, Denies vertigo and Reports weakness Psychiatric Psychiatric: Denies homicidal ideation and Denies suicidal ideation Endocrine Endocrine: Reports fatigue and Denies heat intolerance Hematologic/Lymphatic Hematologic/Lymphatic: Denies easy bleeding and Denies lymphadenopathy Allergic/Immunologic Allergic/Immunologic: Denies itchy eyes, Denies lip swelling, Denies throat swelling and Denies wheezing Pulmonology Exam Inpatient Vital signs and Labs for Last 24 Hours: Temp Pulse Resp BP Pulse Ox O2 Del Method O2 Flow Rate 98.2 F 79 14 110/49 L 90 L Nasal Cannula 2.5 04/15/25 02:37 04/15/25 12:00 04/15/25 12:00 04/15/25 12:00 04/15/25 12:00 04/15/25 13:00 04/15/25 13:00 Laboratory Results - last 24 hr 04/14/25 14:48: PT 10.7, INR 0.96 04/14/25 14:54: WBC 7.8, RBC 4.00 L, Hgb 11.4 L, Hct 35.9 L, MCV 89.8, MCH 28.5, MCHC 31.8, RDW 13.4, Plt Count 204, MPV 10.3, Neut % (Auto) 72.4, Lymph % (Auto) 19.4, [place] % (Auto) 5.9, Eos % (Auto) 1.5, Baso % (Auto) 0.4, Neut # (Auto) 5.7, Lymph # (Auto) 1.5, Canadian # (Auto) 0.5, Eos # (Auto) 0.1, Baso # (Auto) 0.0, Sodium 136, Potassium 4.4, Chloride 90 L, Carbon Dioxide > 40 H*, Anion Gap 10.4, BUN 13, Creatinine 0.70, Estimated Creat Clear 51, Estimated GFR 83, Est GFR ( Amer) 100, Glucose 139 H, Lactate 1.3, Calcium 10.7 H, Magnesium 1.9, Total Bilirubin 0.5, AST 33, ALT 12, Alkaline Phosphatase 48, Troponin I < 0.01, NT-Pro-B Natriuret Pep 1310 H, Total Protein 6.9, Albumin 4.2, Globulin 2.7, Albumin/Globulin Ratio 1.6 04/14/25 15:08: VBG pH 7.38, VBG pCO2 71.3 H, VBG pO2 44.1 H, VBG HCO3 41.6 H, VBG Total CO2 43.8 H, VBG O2 Saturation 77.2 H, VBG Base Excess 16.6 H, VBG Lactic Acid 2.0 04/14/25 15:09: SARS-CoV-2 (PCR) Not detected, Influenza A Untype (PCR) Not detected, Influenza Type B (PCR) Not detected 04/14/25 16:24: Urine Color Yellow, Urine Appearance Clear, Urine pH 7.5, Ur Specific [place] 1.010, Urine Protein Negative, Urine Glucose (UA) Negative, Urine Ketones Negative, Urine Blood Negative, Urine Nitrate Negative, Urine Bilirubin Negative, Urine Urobilinogen 0.2, Ur Leukocyte Esterase Negative, Urine RBC Occasional, Urine WBC 5-10, Ur Squamous Epith Cells 20-50, Urine Bacteria 2+ 04/14/25 18:05: Troponin I < 0.01 04/14/25 21:15: Troponin I < 0.01 04/15/25 05:50: WBC 7.1, RBC 3.97 L, Hgb 11.0 L, Hct 34.7 L, MCV 87.4, MCH 27.7, MCHC 31.7 L, RDW 13.2, Plt Count 167, MPV 9.6, Neut % (Auto) 90.4 H, Lymph % (Auto) 8.5 L, Canadian % (Auto) 0.7 L, Eos % (Auto) 0.0 L, Baso % (Auto) 0.1, Neut # (Auto) 6.4, Lymph # (Auto) 0.6 L, [place] # (Auto) 0.1, Eos # (Auto) 0.0, Baso # (Auto) 0.0, Sodium 134 L, Potassium 4.0, Chloride 91 L, Carbon Dioxide 36 H, Anion Gap 11.0, BUN 13, Creatinine 0.60, Estimated Creat Clear 49, Estimated GFR 99, Est GFR ( Amer) 120, Glucose 161 H, Calcium 10.3 H I & O for Labs for Last 24 Hours: Intake & Output 04/12/25 04/13/25 04/14/25 04/15/25 23:59 23:59 23:59 23:59 Intake Total 50 / 100 1130.667 / 1130.667 Output Total 950 / 950 Balance 50 / -100 180.667 / 180.667 Weight 135 lb 132 lb Constitutional: Present moderate distress Head: Present normocephalic and atraumatic ENT: Present normal exam, normal oropharynx and mucous membranes moist Neck: Present normal inspection and full ROM Respiratory: Present prolonged expiratory phase, respiratory distress, diminished air movement and able to speak in complete sentences; Absent wheezes or crackles Cardiac: Present S1/S2, Tachycardia and radial pulses present GI: Present soft and distention Rectal (female): Present deferred (female): Present deferred Skin: Present intact; Absent cyanosis or jaundice Neuro: Present alert, awake and oriented x 3 Extremities: Present normal inspection; Absent clubbing or cyanosis Psychiatric: Present normal affect and cooperative Meds Home Medications and Allergies Home Medications ?Medication ?Instructions ?Recorded ?Confirmed ?Type albuterol sulfate 90 mcg/actuation 2 inh inhalation Q6HP PRN 04/15/24 04/15/25 History aerosol inhaler Shortness Of Breath montelukast 10 mg tablet 10 mg PO HS 04/15/24 04/15/25 History digoxin 125 mcg (0.125 mg) tablet 125 mcg PO DAILY #30 tabs 12/01/24 04/15/25 Rx apixaban 5 mg tablet (Eliquis) 5 mg PO BID 01/28/25 04/15/25 History losartan 100 mg tablet 100 mg PO DAILY 01/28/25 04/15/25 History alprazolam 1 mg tablet 1 mg PO BID 03/01/25 04/15/25 History celecoxib 50 mg capsule 50 mg PO DAILY 03/20/25 04/15/25 History gabapentin 800 mg tablet 800 mg PO TID 03/20/25 04/15/25 History hydrocodone 10 mg-acetaminophen 1 tab PO QID 10/325MG 03/20/25 04/15/25 History 325 mg tablet bumetanide 1 mg tablet 1 mg PO DAILY #30 tabs 03/21/25 04/15/25 Rx carvedilol 25 mg tablet 25 mg PO BID 30 days #60 tabs 03/21/25 04/15/25 Rx spironolactone 25 mg tablet 25 mg PO DAILY 30 days #30 tabs 03/21/25 04/15/25 Rx azithromycin 250 mg tablet 250 mg PO QMWF #45 tabs 03/24/25 04/15/25 Rx calcium 600 mg (as 1 tab PO BID 03/24/25 04/15/25 History carbonate)-vitamin D3 5 mcg (200 unit) tablet cholecalciferol (vitamin D3) 1,250 50,000 unit PO WEEKLY 03/24/25 04/15/25 History mcg (50,000 unit) capsule fluticasone fur. 100 mcg-umeclid 1 inh inhalation DAILY 90 days #90 03/24/25 04/15/25 Rx 62.5 mcg-vilant 25 mcg ea inhalat.powder (Trelegy Ellipta) ipratropium 0.5 mg-albuterol 3 mg 3 ml inhalation QID PRN shortness 03/24/25 04/15/25 Rx (2.5 mg base)/3 mL nebulization of breath or wheezing 90 days #270 soln mL ciclopirox 0.77 % topical cream 1 applic topical BID 04/15/25 04/15/25 History magnesium oxide 500 mg PO DAILY 04/15/25 04/15/25 History metoprolol succinate 100 mg 100 mg PO HS 04/15/25 04/15/25 History tablet,extended release 24 hr potassium chloride 20 mEq 20 meq PO BID 04/15/25 04/15/25 History tablet,extended release(part/cryst) New Prescriptions to Start Prescriptions: Allergies Allergy/AdvReac Type Severity Reaction Status Date / Time No Known Allergies Allergy Verified 03/24/25 13:16 Results Laboratory Findings 04/15/25 05:50 04/15/25 05:50 PT/INR, D-dimer PT 10.7 seconds (10.1-12.5) 04/14/25 14:48 INR 0.96 (0.9-1.1) 04/14/25 14:48 Abnormal lab findings: Abnormal Labs 04/14/25 04/14/25 04/15/25 14:54 15:08 05:50 RBC 4.00 L 3.97 L Hgb 11.4 L 11.0 L Hct 35.9 L 34.7 L MCHC 31.7 L Neut % (Auto) 90.4 H Lymph % (Auto) 8.5 L Canadian % (Auto) 0.7 L Eos % (Auto) 0.0 L Lymph # (Auto) 0.6 L VBG pCO2 71.3 H VBG pO2 44.1 H VBG HCO3 41.6 H VBG Total CO2 43.8 H VBG O2 Saturation 77.2 H VBG Base Excess 16.6 H Sodium 134 L Chloride 90 L 91 L Carbon Dioxide > 40 H* 36 H Glucose 139 H 161 H Calcium 10.7 H 10.3 H NT-Pro-B Natriuret Pep 1310 H Assessment and Plan *Assessment and plan (1) Acute and chronic respiratory failure with hypercapnia: Status: Acute Category: Medical Code(s): J96.22 - Acute and chronic respiratory failure with hypercapnia Plan Ms. Balbuena is a 78-year-old female current smoker greater than [id number] smoking significantly cut down her smoking about 1/4 pack a day, COPD, chronic hypoxic respiratory failure, worsening right upper lobe pulmonary nodule and mediastinal lymphadenopathy recently discharged from the hospital with home BiPAP therapy presented to the hospital from and complaints of abdominal discomfort. Patient admits at baseline continue to use her oxygen supplementation Trelegy 100 inhaler. Denies any worsening cough or any productive phlegm. She admits not using her noninvasive ventilatory therapy. Blood gas upon admission chronic hypercarbic respiratory failure. CT upon admission did not show any airspace disease. Continue to show previous nodular densities. No significant change in either the nodule or lymphadenopathies or the adjacent findings from prior. Not concern for atypical pneumonia at this point of time. COVID-19 and flu PCR panel negative. Chest clear to auscultate with no significant wheezing. No significant respiratory distress noted. On 3 L saturating 95%, weaned to 2 L nasal cannula. Plan: No need for antibiotics or steroids from pulmonary standpoint. Continue Trelegy 100 inhaler along with DuoNebs 4 times daily as needed Continue oxygen supplementation to maintain O2 saturation goal of 90% and above Continue BiPAP therapy at night at 16/8, rate of 16 and FiO2 of 30% # Thank you for involving pulmonary in this patient care. Will continue to follow.
[2025-04-15] MEDS: CEFTRIAXONE 1 GM 1 GM in 0.9 % SODIUM CHLORIDE 50 ML IV (15:03)
[2025-04-15] MEDS: MINERAL OIL ENEMA 133ML 133 ML RC (15:19)
--- NOTE | 2025-04-15 16:40 | PC.NURSE ---
Pt is A&Ox4. Vital signs stable tolerating baseline O2 requirement of 2-3L NC. BiPAP ordered as needed at night. IV abx infused per SEP. No complaints of pain this shift. Mineral oil enema given per SEP. Pt has not had a BM yet. Pt resting sitting up in chair comfortably with no further needs voiced at this time. Call light within reach.
--- NOTE | 2025-04-15 21:01 | PC.NURSE ---
Addendum entered by Shirley Soler RN 04/15/25 21:03: increased to 3L NC - see VS Original Note: patient removed bipap and is on 2L NC
[2025-04-15] MEDS: MONTELUKAST SODIUM 10MG TAB 10 MG PO (21:05)
[2025-04-15] MEDS: AZITHROMYCIN 500 MG in 0.9 % SODIUM CHLORIDE 250 ML 250 MG IV (21:05)
[2025-04-15] MEDS: SENNOSIDES 8.6MG/DOCUSATE 50MG TABLET 1 TAB PO (21:07)
--- NOTE | 2025-04-15 21:42 | PC.NURSE ---
purewick placed on patient by patient request - educated we will remove at breakfast to encourage ambulation.
[2025-04-16] VITALS (9 sets, daily range): BP systolic 128–152; BP diastolic 59–67; PULSE 80–90; RESP 16–24; TEMP 36.4–36.8; O2SAT 90–97; BMI 24.3
[2025-04-16 05:49] LABS: Hematocrit 33.2 % (37.0-47.0); Hemoglobin 10.2 g/dL (12.2-16.2); Immature Granulocytes % 0.5 %; Mean Corpuscular HGB Conc 30.7 g/dL (31.8-35.4); Mean Corpuscular Hemoglobin 27.7 pg (27.0-31.2); Mean Corpuscular Volume 90.2 fl (81-99); Nucleated Red Blood Cells % 0 %; Platelet Count 159 K/mm3 (142-424); Red Blood Count 3.68 M/mm3 (4.20-5.40); Red Cell Distribution Width-SD 46.0 fL; White Blood Count 10.7 K/mm3 (4.8-10.8)
[2025-04-16 06:02] LABS: Albumin Level 3.8 g/dl (3.5-5.0); Chloride 90 mmol/L (98-107)
[2025-04-16 06:03] LABS: Potassium 4.1 mmoL/L (3.5-5.1); Sodium 135 mmol/L (136-145)
[2025-04-16 06:05] LABS: Alanine Aminotransferase 14 U/L (12-78); Albumin/Globulin Ratio 1.4 (1.1-1.8); Anion Gap 12.1 mEq/L (5-15); Aspartate Amino Transferase 24 U/L (14-36); Carbon Dioxide 37 mmol/L (22.0-30.0); Globulin 2.7 g/dL (1.3-3.2); Total Protein,Serum 6.5 g/dl (6.3-8.2)
[2025-04-16 06:06] LABS: Alkaline Phosphatase 55 U/L (38-126); Calcium 10.0 mg/dl (8.4-10.2); Glucose 151 mg/dl (74-100); Magnesium 2.0 mg/dl (1.6-2.3)
--- NOTE | 2025-04-16 06:07 | PC.NURSE ---
patient slept well all night - denies complaints or soa
[2025-04-16 06:10] LABS: Blood Urea Nitrogen 24 mg/dl (7-17); Creatinine Clearance Estimated 50 mL/min (50-200); Creatinine,Serum 0.80 mg/dl (0.52-1.04); Estimated Glomerular Filt Rate 71 ml/min (>60); GFR (African American) 86 ML/MIN (>60)
[2025-04-16] MEDS: FLUTICASONE/UMECLIDIN/VILANTER 100/62.5/25MCG INHALER 1 PUFF IH (06:12)
[2025-04-16 06:50] LABS: Bilirubin,Total < 0.1 mg/dl (0.2-1.3)
--- NOTE | 2025-04-16 08:00 | EXP.DC.SUM ---
General Admission date:: 04/14/25 Discharge date: 04/16/25 HPI HPI HPI: Patient is a 70-year-old female with past medical history of active tobacco use, COPD on 2 L nasal cannula at baseline, heart failure with preserved ejection fraction, hypertension who presents to the hospital due to difficulty breathing as well as wheezing, chest pain. Patient on arriving to the hospital had systolic blood pressure of 200s. Patient mentions she has been having wheezing and difficulty breathing for past 1 week. Patient mentions she also has chest pain, she has abdominal pain, otherwise denied fever chills diarrhea. Patient mentions she has been actively using tobacco about 1 pack/day. Hospital Course Hospital Course Hospital Course: Patient is a 70-year-old female with past medical history of active tobacco use, COPD on 2 L nasal cannula at baseline, heart failure with preserved ejection fraction, hypertension who presents to the hospital due to difficulty breathing as well as wheezing, chest pain. Patient on arriving to the hospital had systolic blood pressure of 200s. Patient mentions she has been having wheezing and difficulty breathing for past 1 week. Patient mentions she also has chest pain, she has abdominal pain, otherwise denied fever chills diarrhea. Patient mentions she has been actively using tobacco about 1 pack/day. Showed improvement during admission. Encouraged to wear her BiPAP. Has issues with her mask staying sealed as she sleeps on her side and then ends up taking it off. Had some abdominal pain initially, improved after bowel movement. Tolerating p.o. intake without issue. No nausea or vomiting. Stable to discharge home with continued care from her son. Follow with pulmonology in the coming week. Problems addressed as follows: Shortness of breath, wheezing likely secondary to COPD exacerbation Acute on chronic hypoxic hypercapnic respiratory failure Community-acquired pneumonia, ruled out - Presented with hypercapnia and shortness of breath. Initiated on BiPAP and responded well. White count remained normal during admission. Pulmonology was consulted, felt patient did not actually have a pneumonia and this is likely COPD related and related to poor compliance to her bilevel noninvasive positive pressure ventilation. Stressed the importance of wearing device at home. Responded well to device while in the hospital. Continued on her baseline oxygen of 2 to 3 L for goal sats greater 90%. Recommend continuing BiPAP therapy at night of 16/8, rate of 16, FiO2 30%. No indication for antibiotics or steroids at discharge. -Treated empirically initially with ceftriaxone and steroids along with azithromycin. Completed azithromycin course. - Resume Trelegy 100 inhaler along with DuoNebs every 6 hours as needed - Spiculated ovoid mass versus nodular consolidation in the posteromedial right upper lobe is mildly increased in size from 02/28/2025. This could represent malignancy or organizing pneumonia. Pulmonology again discussing possible biopsy. Patient contemplating at this time. Uncontrolled hypertension Paroxysmal A-fib Heart failure preserved ejection fraction, stable, present on admission - Initially placed on nicardipine drip. Improved within the first 24 hours. Able to transition to home blood pressure regimen as follows Bumex 1 mg daily, carvedilol 25 mg twice daily, digoxin 125 mcg, irbesartan 300 mg daily, and spironolactone 25 mg daily. Stable at this time on home regimen. - Continue Eliquis 5mg twice daily - Rate controlled on morning rounds. Abdominal pain/constipation: Large stool ball in rectum on CT of abdomen. Received mineral oil enema. Had some improvement in discomfort. Pain better by day of discharge and tolerating regular diet without difficulty. Continue bowel regimen at discharge. Total time spent on discharge 38 minutes in counseling, documentation, chart review, and direct care with patient. Exam Data for Last 24 hours Vital signs and Labs for Last 24 Hours: Temp Pulse Resp BP Pulse Ox O2 Del Method O2 Flow Rate 97.6 F 83 18 131/67 97 Nasal Cannula 3 04/16/25 04:00 04/16/25 04:00 04/16/25 04:00 04/16/25 04:00 04/16/25 06:13 04/16/25 06:35 04/16/25 06:35 FiO2 30 04/15/25 18:51 Laboratory Results - last 24 hr 04/16/25 05:12: WBC 10.7 D, RBC 3.68 L, Hgb 10.2 L, Hct 33.2 L, MCV 90.2, MCH 27.7, MCHC 30.7 L, RDW 13.9, Plt Count 159, MPV 9.8, Neut % (Auto) 88.5 H, Lymph % (Auto) 7.7 L, [place] % (Auto) 3.2, Eos % (Auto) 0.0 L, Baso % (Auto) 0.1, Neut # (Auto) 9.5 H, Lymph # (Auto) 0.8, [place] # (Auto) 0.3, Eos # (Auto) 0.0, Baso # (Auto) 0.0, Sodium 135 L, Potassium 4.1, Chloride 90 L, Carbon Dioxide 37 H, Anion Gap 12.1, BUN 24 H D, Creatinine 0.80 D, Estimated Creat Clear 50, Estimated GFR 71, Est GFR ( Amer) 86 D, Glucose 151 H, Calcium 10.0, Magnesium 2.0, Total Bilirubin < 0.1 L, AST 24 D, ALT 14, Alkaline Phosphatase 55, Total Protein 6.5, Albumin 3.8, Globulin 2.7, Albumin/Globulin Ratio 1.4 I & O for Last 24 hours: Intake & Output 04/13/25 04/14/25 04/15/25 04/16/25 23:59 23:59 23:59 23:59 Intake Total 50 / 100 2110.667 / 2110.667 Output Total 950 / 950 900 / 900 Balance 50 / -100 1160.667 / 1160.667 -900 / -900 Weight 61.235 kg 59.874 kg 59.92 kg Microbiology Reports for the Last 24 Hours: Microbiology 04/14/25 16:24 Urine,Clean Catch Urine Culture - Final Multiple organisms, suggests contamination. 04/14/25 15:16 Blood Blood Culture - Preliminary NO GROWTH AFTER 24 HOURS 04/14/25 15:16 Blood Blood Culture - Preliminary NO GROWTH AFTER 24 HOURS Constitutional Constitutional: no acute distress, thin, chronically ill appearing and cooperative *Routine HEENT Exam Head: Present normocephalic Eye: Present EOMI and PERRL ENT: Present mucous membranes moist *Routine Neck Exam Neck: Present supple; Absent lymphadenopathy *Routine Respiratory Exam Respiratory: Present prolonged expiratory phase, wheezes and normal respiratory effort; Absent rhonchi or crackles *Routine Cardiovascular Exam Cardiovascular: Present RRR *Routine Abdominal Exam Abdominal: Present soft and normoactive bowel sounds; Absent tenderness Comments: Improvement in tenderness on exam today *Routine Rectal Exam Patient deferred: visual exam *Routine Exam Patient deferred: external exam *Routine Extremities Exam Extremities: Absent cyanosis, clubbing or edema *Routine Skin Exam Skin: Present intact and warm; Absent rash *Routine Neurological Exam Neurological: Present alert, oriented X3 and moving all extremities; Absent altered mental status Results Data Completed and Pending Labs on day of discharge: Labs from last 24 hours 04/16/25 05:12 WBC 10.7 D RBC 3.68 L Hgb 10.2 L Hct 33.2 L MCV 90.2 MCH 27.7 MCHC 30.7 L RDW 13.9 Plt Count 159 MPV 9.8 Neut % (Auto) 88.5 H Lymph % (Auto) 7.7 L [place] % (Auto) 3.2 Eos % (Auto) 0.0 L Baso % (Auto) 0.1 Neut # (Auto) 9.5 H Lymph # (Auto) 0.8 [place] # (Auto) 0.3 Eos # (Auto) 0.0 Baso # (Auto) 0.0 Sodium 135 L Potassium 4.1 Chloride 90 L Carbon Dioxide 37 H Anion Gap 12.1 BUN 24 H D Creatinine 0.80 D Estimated Creat Clear 50 Estimated GFR 71 Est GFR ( Amer) 86 D Glucose 151 H Calcium 10.0 Magnesium 2.0 Total Bilirubin < 0.1 L AST 24 D ALT 14 Alkaline Phosphatase 55 Total Protein 6.5 Albumin 3.8 Globulin 2.7 Albumin/Globulin Ratio 1.4 Preliminary micro results at discharge 04/14/25 15:16 Blood Culture - Preliminary Blood NO GROWTH AFTER 24 HOURS 04/14/25 15:16 Blood Culture - Preliminary Blood NO GROWTH AFTER 24 HOURS DS: Diagnosis Discharge Diagnosis (1) Acute and chronic respiratory failure with hypercapnia: Status: Acute Code(s): J96.22 - Acute and chronic respiratory failure with hypercapnia (2) Pneumonia: Status: Acute Code(s): J18.9 - Pneumonia, unspecified organism (3) Asthma exacerbation in COPD: Status: Acute Code(s): J44.1 - Chronic obstructive pulmonary disease with (acute) exacerbation (4) COPD (chronic obstructive pulmonary disease): Status: Acute Code(s): J44.9 - Chronic obstructive pulmonary disease, unspecified (5) Tobacco abuse disorder: Status: Chronic Code(s): Z72.0 - Tobacco use (6) Respiratory failure with hypoxia: Status: Acute Code(s): J96.91 - Respiratory failure, unspecified with hypoxia (7) Hypercapnic respiratory failure: Status: Acute Code(s): J96.92 - Respiratory failure, unspecified with hypercapnia Qualifiers: Chronicity: acute on chronic Qualified Code(s): J96.22 - Acute and chronic respiratory failure with hypercapnia (8) Constipation: Status: Acute Code(s): K59.00 - Constipation, unspecified (9) Paroxysmal atrial fibrillation: Status: Acute Code(s): I48.0 - Paroxysmal atrial fibrillation Meds Home Medications and Allergies Home Medications ?Medication ?Instructions ?Recorded ?Confirmed ?Type albuterol sulfate 90 mcg/actuation 2 inh inhalation Q6HP PRN 04/15/24 04/15/25 History aerosol inhaler Shortness Of Breath montelukast 10 mg tablet 10 mg PO HS 04/15/24 04/15/25 History digoxin 125 mcg (0.125 mg) tablet 125 mcg PO DAILY #30 tabs 12/01/24 04/15/25 Rx apixaban 5 mg tablet (Eliquis) 5 mg PO BID 01/28/25 04/15/25 History losartan 100 mg tablet 100 mg PO DAILY 01/28/25 04/15/25 History alprazolam 1 mg tablet 1 mg PO BID 03/01/25 04/15/25 History celecoxib 50 mg capsule 50 mg PO DAILY 03/20/25 04/15/25 History gabapentin 800 mg tablet 800 mg PO TID 03/20/25 04/15/25 History hydrocodone 10 mg-acetaminophen 1 tab PO QID 10325MG 03/20/25 04/15/25 History 325 mg tablet bumetanide 1 mg tablet 1 mg PO DAILY #30 tabs 03/21/25 04/15/25 Rx carvedilol 25 mg tablet 25 mg PO BID 30 days #60 tabs 03/21/25 04/15/25 Rx spironolactone 25 mg tablet 25 mg PO DAILY 30 days #30 tabs 03/21/25 04/15/25 Rx azithromycin 250 mg tablet 250 mg PO QMWF #45 tabs 03/24/25 04/15/25 Rx calcium 600 mg (as 1 tab PO BID 03/24/25 04/15/25 History carbonate)-vitamin D3 5 mcg (200 unit) tablet cholecalciferol (vitamin D3) 1,250 50,000 unit PO WEEKLY 03/24/25 04/15/25 History mcg (50,000 unit) capsule fluticasone fur. 100 mcg-umeclid 1 inh inhalation DAILY 90 days #90 09/10/25 10/02/25 Rx 62.5 mcg-vilant 25 mcg ea inhalat.powder (Trelegy Ellipta) ipratropium 0.5 mg-albuterol 3 mg 3 ml inhalation QID PRN shortness 03/24/25 04/15/25 Rx (2.5 mg base)/3 mL nebulization of breath or wheezing 90 days #270 soln mL ciclopirox 0.77 % topical cream 1 applic topical BID 04/15/25 04/15/25 History magnesium oxide 500 mg PO DAILY 04/15/25 04/15/25 History metoprolol succinate 100 mg 100 mg PO HS 04/15/25 04/15/25 History tablet,extended release 24 hr potassium chloride 20 mEq 20 meq PO BID 04/15/25 04/15/25 History tablet,extended release(part/cryst) sennosides 8.6 mg-docusate sodium 1 tab PO BID PRN Constipation 10 04/16/25 Rx 50 mg tablet (Stimulant Laxative days #20 tabs Plus) New Prescriptions to Start Prescriptions: sennosides-docusate sodium [Stimulant Laxative Plus] Teja Blair Allergies Allergy/AdvReac Type Severity Reaction Status Date / Time No Known Allergies Allergy Verified 03/24/25 13:16 Discharge Plan Disposition Patient Disposition: Home, Self-Care Condition: Good Follow up Plan Follow up with: Mario Gatica PA [Physician [employer], Cardiology] - 04/22/25 3:00 pm Stephanie Espinoza APRN [Primary Care Provider, Medical] - 04/23/25 10:15 am Srini Gan MD [Physician, Pulmonology] - 05/11/25 1:00 pm Prescriptions/Medication Reconciliation: New sennosides-docusate sodium [Stimulant Laxative Plus] 8.6-50 mg Tablet 1 tab PO BID PRN (Reason: Constipation) 10 Days Qty: 20 0RF Continued calcium carbonate-vitamin D3 600 mg-5 mcg (200 unit) tablet 1 tab PO BID Patient Comments: TAKE ONE TABLET BY MOUTH 2 TIMES A DAY WITH A MEAL cholecalciferol (vitamin D3) 1,250 mcg (50,000 unit) capsule 50,000 unit PO WEEKLY Patient Comments: TAKE 1 CAPSULE BY MOUTH ONCE WEEKLY ipratropium-albuterol 0.5 mg-3 mg(2.5 mg base)/3 mL solution for nebulization 3 ml inhalation QID PRN (Reason: shortness of breath or wheezing) 90 Days Qty: 270 3RF azithromycin 250 mg tablet 250 mg PO QMWF Qty: 45 2RF Trelegy Ellipta 100-62.5-25 mcg blister with device 1 inh inhalation DAILY 90 Days Qty: 90 2RF alprazolam 1 mg tablet 1 mg PO BID hydrocodone-acetaminophen 10-325 mg tablet 1 tab PO QID Patient Comments: TAKE 1 TABLET BY MOUTH EVERY 6 HOURS gabapentin 800 mg tablet 800 mg PO TID Patient Comments: TAKE 1 TABLET BY MOUTH 3 TIMES A DAY celecoxib 50 mg capsule 50 mg PO DAILY carvedilol 25 mg Tablet 25 mg PO BID 30 Days Qty: 60 0RF bumetanide 1 mg tablet 1 mg PO DAILY Qty: 30 0RF spironolactone 25 mg tablet 25 mg PO DAILY 30 Days Qty: 30 0RF metoprolol succinate 100 mg tablet extended release 24 hr 100 mg PO HS Patient Comments: TAKE 1 TABLET BY MOUTH AT BEDTIME potassium chloride 20 mEq tablet,ER particles/crystals 20 meq PO BID Patient Comments: TAKE ONE TABLET BY MOUTH 2 TIMES A DAY WITH FOOD magnesium oxide 250 mg magnesium tablet 500 mg PO DAILY Patient Comments: TAKE TWO TABLETS BY MOUTH ONCE A DAY WITH A MEAL ciclopirox 0.77 % cream 1 applic TOPICAL BID Patient Comments: APPLY TO THE AFFECTED AREA(S) 2 TIMES A DAY FOR fungal nails FOR 6 MONTHS montelukast 10 mg tablet 10 mg PO HS albuterol sulfate 90 mcg/actuation HFA aerosol inhaler 2 inh INHALATION Q6HP PRN (Reason: Shortness Of Breath) digoxin 125 mcg (0.125 mg) tablet 125 mcg PO DAILY Qty: 30 0RF losartan 100 mg tablet 100 mg PO DAILY Patient Comments: TAKE 1 TABLET BY MOUTH ONCE A DAY Eliquis 5 mg Tablet 5 mg PO BID Problem Reconciliation Problems Reviewed?: Yes Patient Discharge Instructions ACTIVITY: Continue current activity DIET: continue same diet Patient Instructions: Chronic Obstructive Pulmonary Disease, DI for Shortness of Breath, Stop Light COPD Print Language: [place] Providers Primary Care Provider: Stephanie Espinoza Admit Provider: Teja Blair Attending Provider: Teja Blair
[2025-04-16] MEDS: DIGOXIN 0.125MG TABLET 125 MCG PO (08:24)
[2025-04-16] MEDS: SPIRONOLACTONE 25MG TABLET 25 MG PO (08:24)
[2025-04-16] MEDS: GABAPENTIN 800MG TABLET 800 MG PO ×2 (08:24→12:30)
[2025-04-16] MEDS: APIXABAN 5MG TABLET 5 MG PO (08:24)
[2025-04-16] MEDS: BUMETANIDE 1 MG TABLET PO (08:25)
[2025-04-16] MEDS: MAGNESIUM OXIDE 400MG TABLET 400 MG PO (08:25)
[2025-04-16] MEDS: FAMOTIDINE 20MG TABLET 20 MG PO (08:25)
[2025-04-16] MEDS: CARVEDILOL 25MG TABLET 25 MG PO (08:25)
[2025-04-16] MEDS: SENNOSIDES 8.6MG/DOCUSATE 50MG TABLET 1 TAB PO (08:26)
[2025-04-16] MEDS: IPRATROPIUM/ALBUTEROL 3 ML NEB IH (09:36)
--- NOTE | 2025-04-16 09:57 | P.PN_ITS ---
Subjective *Date: 04/16/25 *Time: 13:50 Interval history: No acute respiratory vents overnight. Patient denies any new respiratory complaints. Pulmonology Exam Inpatient Vital signs and Labs for Last 24 Hours: Temp Pulse Resp BP Pulse Ox O2 Del Method O2 Flow Rate 98.1 F 87 18 152/65 H 95 Nasal Cannula 3 04/16/25 07:57 04/16/25 09:36 04/16/25 07:57 04/16/25 07:57 04/16/25 07:57 04/16/25 07:57 04/16/25 07:57 FiO2 30 04/15/25 18:51 Laboratory Results - last 24 hr 04/16/25 05:12: WBC 10.7 D, RBC 3.68 L, Hgb 10.2 L, Hct 33.2 L, MCV 90.2, MCH 27.7, MCHC 30.7 L, RDW 13.9, Plt Count 159, MPV 9.8, Neut % (Auto) 88.5 H, Lymph % (Auto) 7.7 L, [place] % (Auto) 3.2, Eos % (Auto) 0.0 L, Baso % (Auto) 0.1, Neut # (Auto) 9.5 H, Lymph # (Auto) 0.8, [place] # (Auto) 0.3, Eos # (Auto) 0.0, Baso # (Auto) 0.0, Sodium 135 L, Potassium 4.1, Chloride 90 L, Carbon Dioxide 37 H, Anion Gap 12.1, BUN 24 H D, Creatinine 0.80 D, Estimated Creat Clear 50, Estimated GFR 71, Est GFR ( Amer) 86 D, Glucose 151 H, Calcium 10.0, Magnesium 2.0, Total Bilirubin < 0.1 L, AST 24 D, ALT 14, Alkaline Phosphatase 55, Total Protein 6.5, Albumin 3.8, Globulin 2.7, Albumin/Globulin Ratio 1.4 Temp Pulse Resp BP Pulse Ox O2 Del Method O2 Flow Rate 98.2 F 79 14 110/49 L 90 L Nasal Cannula 2.5 04/15/25 02:37 04/15/25 12:00 04/15/25 12:00 04/15/25 12:00 04/15/25 12:00 04/15/25 13:00 04/15/25 13:00 Laboratory Results - last 24 hr 04/14/25 14:48: PT 10.7, INR 0.96 04/14/25 14:54: WBC 7.8, RBC 4.00 L, Hgb 11.4 L, Hct 35.9 L, MCV 89.8, MCH 28.5, MCHC 31.8, RDW 13.4, Plt Count 204, MPV 10.3, Neut % (Auto) 72.4, Lymph % (Auto) 19.4, [place] % (Auto) 5.9, Eos % (Auto) 1.5, Baso % (Auto) 0.4, Neut # (Auto) 5.7, Lymph # (Auto) 1.5, [place] # (Auto) 0.5, Eos # (Auto) 0.1, Baso # (Auto) 0.0, Sodium 136, Potassium 4.4, Chloride 90 L, Carbon Dioxide > 40 H*, Anion Gap 10.4, BUN 13, Creatinine 0.70, Estimated Creat Clear 51, Estimated GFR 83, Est GFR ( Amer) 100, Glucose 139 H, Lactate 1.3, Calcium 10.7 H, Magnesium 1.9, Total Bilirubin 0.5, AST 33, ALT 12, Alkaline Phosphatase 48, Troponin I < 0.01, NT-Pro-B Natriuret Pep 1310 H, Total Protein 6.9, Albumin 4.2, Globulin 2.7, Albumin/Globulin Ratio 1.6 04/14/25 15:08: VBG pH 7.38, VBG pCO2 71.3 H, VBG pO2 44.1 H, VBG HCO3 41.6 H, VBG Total CO2 43.8 H, VBG O2 Saturation 77.2 H, VBG Base Excess 16.6 H, VBG Lactic Acid 2.0 04/14/25 15:09: SARS-CoV-2 (PCR) Not detected, Influenza A Untype (PCR) Not detected, Influenza Type B (PCR) Not detected 04/14/25 16:24: Urine Color Yellow, Urine Appearance Clear, Urine pH 7.5, Ur Specific [place] 1.010, Urine Protein Negative, Urine Glucose (UA) Negative, Urine Ketones Negative, Urine Blood Negative, Urine Nitrate Negative, Urine Bilirubin Negative, Urine Urobilinogen 0.2, Ur Leukocyte Esterase Negative, Urine RBC Occasional, Urine WBC 5-10, Ur Squamous Epith Cells 20-50, Urine Bacteria 2+ 04/14/25 18:05: Troponin I < 0.01 04/14/25 21:15: Troponin I < 0.01 04/15/25 05:50: WBC 7.1, RBC 3.97 L, Hgb 11.0 L, Hct 34.7 L, MCV 87.4, MCH 27.7, MCHC 31.7 L, RDW 13.2, Plt Count 167, MPV 9.6, Neut % (Auto) 90.4 H, Lymph % (Auto) 8.5 L, [place] % (Auto) 0.7 L, Eos % (Auto) 0.0 L, Baso % (Auto) 0.1, Neut # (Auto) 6.4, Lymph # (Auto) 0.6 L, [place] # (Auto) 0.1, Eos # (Auto) 0.0, Baso # (Auto) 0.0, Sodium 134 L, Potassium 4.0, Chloride 91 L, Carbon Dioxide 36 H, Anion Gap 11.0, BUN 13, Creatinine 0.60, Estimated Creat Clear 49, Estimated GFR 99, Est GFR ( Amer) 120, Glucose 161 H, Calcium 10.3 H I & O for Labs for Last 24 Hours: Intake & Output 04/13/25 04/14/25 04/15/25 04/16/25 23:59 23:59 23:59 23:59 Intake Total 50 / 100 2110.667 / 2110.667 840 / 840 Output Total 950 / 950 900 / 900 Balance 50 / -100 1160.667 / 1160.667 -60 / -60 Weight 135 lb 132 lb 132 lb 1.6 oz Intake & Output 04/12/25 04/13/25 04/14/25 04/15/25 23:59 23:59 23:59 23:59 Intake Total 50 / 100 1130.667 / 1130.667 Output Total 950 / 950 Balance 50 / -100 180.667 / 180.667 Weight 135 lb 132 lb Microbiology Reports for the Last 24 Hours: Microbiology 04/14/25 16:24 Urine,Clean Catch Urine Culture - Final Multiple organisms, suggests contamination. 04/14/25 15:16 Blood Blood Culture - Preliminary NO GROWTH AFTER 24 HOURS 04/14/25 15:16 Blood Blood Culture - Preliminary NO GROWTH AFTER 24 HOURS Constitutional: Present moderate distress Head: Present normocephalic and atraumatic ENT: Present normal exam, normal oropharynx and mucous membranes moist Neck: Present normal inspection and full ROM Respiratory: Present prolonged expiratory phase, respiratory distress, diminished air movement and able to speak in complete sentences; Absent wheezes or crackles Cardiac: Present S1/S2, Tachycardia and radial pulses present GI: Present soft and distention Rectal (female): Present deferred (female): Present deferred Skin: Present intact; Absent cyanosis or jaundice Neuro: Present alert, awake and oriented x 3 Extremities: Present normal inspection; Absent clubbing or cyanosis Psychiatric: Present normal affect and cooperative Assessment and Plan *Assessment and plan (1) Acute and chronic respiratory failure with hypercapnia: Status: Acute Category: Medical Code(s): J96.22 - Acute and chronic respiratory failure with hypercapnia Plan Ms. Balbuena is a 78-year-old female current smoker greater than [id number] smoking significantly cut down her smoking about 1/4 pack a day, COPD, chronic hypoxic respiratory failure, worsening right upper lobe pulmonary nodule and mediastinal lymphadenopathy recently discharged from the hospital with home BiPAP therapy presented to the hospital from and complaints of abdominal discomfort. Patient admits at baseline continue to use her oxygen supplementation Trelegy 100 inhaler. Denies any worsening cough or any productive phlegm. She admits not using her noninvasive ventilatory therapy. Blood gas upon admission chronic hypercarbic respiratory failure. CT upon admission did not show any airspace disease. Continue to show previous nodular densities. No significant change in either the nodule or lymphadenopathies or the adjacent findings from prior. Not concern for atypical pneumonia at this point of time. COVID-19 and flu PCR panel negative. Chest clear to auscultate with no significant wheezing. No significant respiratory distress noted. On 3 L saturating 95%, weaned to 2 L nasal cannula. Interval update: Patient has been noncompliant using her noninvasive ventilator therapy stated that she cannot use it during the nighttime. Would like to wear it during the daytime. Will try to educate the patient on how to use her noninvasive ventilator therapy prior to discharge with the hope of increasing her use and compliance Patient would like to pursue biopsy for the concerning right upper lobe pulmonary nodule at this point of time will continue to follow ongoing discussions. Plan: No need for antibiotics or steroids from pulmonary standpoint. Continue Trelegy 100 inhaler along with DuoNebs 4 times daily as needed Continue oxygen supplementation to maintain O2 saturation goal of 90% and above Continue BiPAP therapy for at least 6 hours/day at 16/8, rate of 16 and FiO2 of 30% # Thank you for involving pulmonary in this patient care. Will continue to follow.
[2025-04-16 11:38] LABS: VBG HCO3 37.8 mmol/L (23-30); VBG PH 7.39 mmol/L (7.31-7.41); VBG PO2 70.0 mmol/L (28-40)
[2025-04-16 11:40] LABS: Lactate Venous 3.2 mmol/L (0.4-2.0); VBG PCO2 63.5 mmol/L (35-51)
[2025-04-16 15:39] LABS: Reflex Lactic Add Lactic Reflex
--- NOTE | 2025-04-19 11:06 | SW/DCPLANNER ---
Spoke with patient on the phone. Patient stated that she is not doing too good. Patient stated that she cant poop and that her butt is bleeding. I suggested that the patient come back to the er or be seen by her PCP. Patient stated that she is aware of her upcoming appointments. Patient stated that she was able to get her new medicine picked up. Patient stated that she has no concerns or questions at this time. Leonel Thomas
== END 2025-04-16 15:21 | disposition home or self-care (01) ==
LOC: ER 23:14 → 2ND 23:22 → ICU 04-15 02:17 → 2ND 04-15 12:21
PROVIDERS: Internal Medicine; Internal Medicine Pulmonary Disease; Physician Assistant; Admitting Provider Internal Medicine Adolescent Medicine; Emergency Provider Student in an Organized Health Care Education/Training Program; PCP Nurse Practitioner; Visit Provider Internal Medicine Adolescent Medicine
DX: J44.1 Chronic obstructive pulmonary disease with (acute) exacerbation (principal); J18.9 Pneumonia, unspecified organism; I48.0 Paroxysmal atrial fibrillation; J96.21 Acute and chronic respiratory failure with hypoxia; J96.22 Acute and chronic respiratory failure with hypercapnia; K59.00 Constipation, unspecified; I11.0 Hypertensive heart disease with heart failure; I50.30 Unspecified diastolic (congestive) heart failure; F17.210 Nicotine dependence, cigarettes, uncomplicated; J43.9 Emphysema, unspecified; R91.1 Solitary pulmonary nodule; Z99.81 Dependence on supplemental oxygen; Z99.89 Dependence on other enabling machines and devices; Z85.41 Personal history of malignant neoplasm of cervix uteri; Z79.01 Long term (current) use of anticoagulants; Z79.51 Long term (current) use of inhaled steroids; Z79.899 Other long term (current) drug therapy
CPT/HCPCS: 36415; 70450; 71045; 71275; 74177; 80048; 80053; 81001; 82803; 83605; 83735; 83880; 84484; 85025; 85610; 87040; 87070; 87077; 87081; 87086; 87186; 87205; 87636; 93005; 94640; 94660; 94761; 96365; 96366; 96367; 96375; 96376; 97110; 97162; 97166; 97530; 99285; G0378; J0456; J0696; J1920; J2270; J2404; J2919; J3475; J7050; Q9967

== ENCOUNTER 2025-05-26 11:20 | Outpatient (CLI) | payer MEDICARE, SELFPAY ==
--- NOTE | 2025-05-26 | CA_ITS ---
APPROVED REPORT Exam: Pharmacologic Technologist: Sultana Sanderson Ht: 5 ft 2 in Wt: 130 lbs BSA: 1.59 m2 HR: 108 bpm BP: 194/99 mmHg Rhythm: NSR Indications: CAD/PAD/preop Medical History Allergies: No known drug allergies Stress Test Details Test: Pharmacologic stress testing performed using 0.4 mg of regadenoson per 5 mL given IV over 10 seconds. HR Resting HR: 108 bpm Max Heart Rate (APMHR): 150.455746 bpm Max HR Achieved: 123 bpm Target HR (85% APMHR): 127.104683 bpm % of APMHR: 82.00 Recovery HR: 117 bpm BP Resting BP: 194.0/99.0 mmHg Max BP: 205.0/94.0 mmHg Recovery BP: 196.0/95.0 mmHg ECG Clinical Reason for Termination: Completed protocol Stress ECG Conclusion Dyspnea and wheezing and PAC's Electronically signed by : Sarah Nayak MD 05/29/2025 02:15:45
--- OUTSIDE RECORDS SUMMARY | 2025-05-26 11:23 | XMS_ITS | Clinical Summary ---
Author Organization Healthcare Address [address] [place] [address] Care Team Providers Care [employer] Name Role Phone Rajat Navarro MD Primary Care Provider [phone] Social History Tobacco Use Types Packs/Day Years [...] 2005 [id number] Vaccines (1 of 2) 2005 [id number] Vaccine ( - 2024- season) 2025 05/24/2021, [...] this topic Insurance [employer] MEDICARE Care Teams [employer] Relationship Specialty Start Date End Date Rajat Navarro MD [address] [place] [address] #1 #1 [place] Kitchen [id number] PCP - General 07/15/20
--- OUTSIDE RECORDS SUMMARY | 2025-05-26 11:23 | XMS_ITS | Clinical Summary ---
Author Organization [employer] ([place], [place], [place], [place], [place]) Address [address] [place] [address] Care Team Providers Care Process Safety Engineering Technologist Name Role Phone [facility], Provider Not In The System [...] by mouth daily. 30 capsule 5 10/10/19 Active apixaban (Eliquis) 5 mg tab tablet [...] (100 mg total) by mouth daily. Active Active Problems Problem Noted Date Diagnosed [...] the past 12 months, has t he [employer], [employer], [employer], or water [employer] threatened to shut off services in your [...] Do you speak a language other than Micronesian at [facility]? No [...] AWV [id number] 08/15/2024 COVID-19 VACCINE (3 - season) 03/15/202504/2021, 04/26/2021 Influenza Vaccine (#1) 2025 05/30/2023 Medical Devices Implanted Type Area Paper Steamer Device Identifier Shelf Expiration Date Model / Serial / Lot Duraclip Sm 16mm [id number] - [id number] Implanted:Qty: 3 on 02/06/2025 by Marisa Garcia MD at [facility] N/A: Esophagus CONMED 04/28/2027 [id number] / / [id number] Insurance [employer] MCR ADV Advance Directives For more information, please contact: [phone] * DNR - Limited Additional Intervention (Latest Code Status on File) Date Activated Date Inactivated Comments 02/06/2025 9:46 PM 02/09/2025 1:53 PM * Full Code Date Activated Date Inactivated Comments 10/06/2024 8:39 PM 10/09/2024 6:04 PM Care Teams Process Safety Engineering Technologist Relationship Specialty Start Date End Date [facility], Provider Not In The System, [place] [address] PCP - General 02/06/25
--- OUTSIDE RECORDS SUMMARY | 2025-05-26 11:23 | XMS_ITS | Clinical Summary ---
Author Organization [facility] Address [address] [place] [address] Phone Care Team Providers Care Pharmacy Intake Coordinator Name Role Phone Unavailable Unavailable Conditions or Problems No information available. Medications No information available. Medications Administered No information available. Allergies, Adverse Reactions, Alerts No information available. Results No information available. Plan of Care No information available. Procedures No information available. Vital Signs No information available. Immunizations No information available. Advance Directives No information available.
--- OUTSIDE RECORDS SUMMARY | 2025-05-26 11:23 | XMS_ITS | Referral Summary ---
Author Organization [facility] ([place], [place], [place], [place], [place]) Address [address] [place] [address] Care Team Providers Care Cardiothoracic Icu Rn Name Role Phone [facility], Provider Not In The System MD Primary [...] the past 12 months, has t he [employer], [employer], [employer], or water [employer] threatened to shut off services in your [...] Do you speak a language other than Slovak at [facility]? No [...] on file Medical Devices Implanted Type Area H[employer] Device Identifier Shelf Expiration Date Model / Serial / Lot Duraclip Sm 16mm [id number] - [id number] Implanted:Qty: 3 on 02/06/2025 by Marisa Garcia MD at [facility] N/A: Esophagus CONMED 04/28/2027 [id number] / / [id number] Insurance [employer] MCR ADV Advance Directives For more information, please contact: [phone] * DNR - Limited Additional Intervention (Latest Code Status on File) Date Activated Date Inactivated Comments 02/06/2025 9:46 PM 02/09/2025 1:53 PM * Full Code Date Activated Date Inactivated Comments 10/06/2024 8:39 PM 10/09/2024 6:04 PM Care Teams Cardiothoracic Icu Rn Relationship Specialty Start Date End Date Jorje, Provider Not In The System, [place] [address] PCP - General 02/06/25
--- NOTE | 2025-05-26 11:30 | NM_ITS ---
APPROVED REPORT Exam: Nuclear Stress Test Indication: Chest pain, SOB, Fatigue, HTN, Tobacco use Patient Location: Outpatient Stress Tech: Sultana Sanderson [place] Tech:Bouchra Bright, ARRT, RT (R)(N) Ht: 5 ft 2 in Wt: 130 lbs Bra Size: D HR: 107 bpm BP: 194/99 mmHg BSA: 1.59 m2 TID: 1.01 BMI: 23.7 History: Chest pain, SOB, Fatigue, HTN, Tobacco use Procedure: Patient received 0.4 mg of intravenous Lexiscan, resting heart rate 107 bpm, resting blood pressure 194/99 mmHg, with Lexiscan maximum heart rate achieved was 123 bpm which is % of the maximum predicted heart rate and blood pressure was 205/94 mmHg. With Lexiscan, patient denied any complaint of chest pain. Cardiac Stress and Resting SPECT Images: Cardiac Stress and Resting SPECT images were obtained using technetium 99m Myoview 29.8 mCi stress and 10.61 mCi at rest. The patient could not lie on her abdomen. Therefore, partial imaging could not be performed. This may affect the diagnostic interpretation of the study findings. Resting and stress imaging in supine positions demonstrate no evidence of fixed or reversible perfusion defect. Gated imaging demonstrates normal global LV systolic function. LVEF is calculated at 56%. Conclusion: No evidence of fixed or reversible perfusion defect. Gated imaging demonstrates normal global LV systolic function. LVEF is calculated at 56%. Electronically signed by : Sarah Nayak MD 05/29/2025 02:05:09
[2025-05-26 13:00] VITALS: BP 194/99; PULSE 108; RESP 18; O2SAT 98
[2025-05-26] MEDS: ALBUTEROL 0.083% 2.5 MG/3 ML NEB IH (13:00)
[2025-05-26 13:04] VITALS: BMI 23.8
[2025-05-26] MEDS: SODIUM CHLORIDE 0.9% 10ML SYR (RAD ONLY) 10 ML IV ×2 (13:41→13:43)
[2025-05-26] MEDS: ISOTOPE MYOVIEW (PER STUDY) 1 DOSE IV (13:43)
--- NOTE | 2025-05-26 15:07 | PC.NURSE ---
Presented to stress lab with bilateral anterior lobes wheezing, total of 2 albuterol nebs given during her testing for wheezing, which improved significantly after nebs. No respiratory distress during stress testing phase.
== END 2025-05-26 23:59 | disposition home or self-care (01) ==
LOC: RAD 11:21
PROVIDERS: PCP Nurse Practitioner; Visit Provider Nurse Practitioner
DX: Z01.810 Encounter for preprocedural cardiovascular examination (principal); I49.1 Atrial premature depolarization; I25.10 Atherosclerotic heart disease of native coronary artery without angina pectoris; I10 Essential (primary) hypertension; I73.9 Peripheral vascular disease, unspecified; R94.31 Abnormal electrocardiogram [ECG] [EKG]; Z72.0 Tobacco use
CPT/HCPCS: 78452; 93017; 93018; A9502; J2785

== ENCOUNTER 2025-06-02 14:18 | Observation (INO) | payer MEDICARE, SELFPAY ==
[2025-06-02] VITALS (8 sets, daily range): BP systolic 128–163; BP diastolic 53–75; PULSE 59–104; RESP 18–22; TEMP 36.8–37; O2SAT 89–100; BMI 24.7; BMI 23.8
--- NOTE | 2025-06-02 14:18 | ECG_ITS ---
APPROVED REPORT Exam: Resting ECG HR:106 bpm ECG Measurements Heart Rate 106 AXES CO 157 P 47 QRSd 87 QRS -79 QT 309 T 35 QTc 371 Conclusion SINUS TACHYCARDIA WITH OCCASIONAL ECTOPIC PREMATURE COMPLEXES LOW QRS VOLTAGE IN PRECORDIAL LEADS [QRS DEFLECTION < 1.0 mV IN CHEST LEADS] POSSIBLE RIGHT VENTRICULAR CONDUCTION DELAY [RSR (QR) IN V1/V2] LEFT ANTERIOR FASCICULAR BLOCK [QRS AXIS <= -45, QR IN I, RS IN II] POSSIBLE ANTERIOR MYOCARDIAL INFARCTION , OF INDETERMINATE AGE [30 ms Q WAVE IN V3/V4, OR R < 0.2 mV IN V4] ABNORMAL ECG UNCONFIRMED REPORT Sinus tachycardia. QTc interval normal at 371. No ST elevation or depression Electronically signed by : LARISSA ARMSTRONG, 06/03/2025 14:24:29
--- NOTE | 2025-06-02 14:28 | XR_ITS ---
FINAL REPORT CLINICAL HISTORY: Chest pain and shortness of breath COMPARISON: 04/14/2025 FINDINGS: A portable view of the chest was obtained. Cardiac and mediastinal silhouettes are within normal limits. Bibasilar opacities are noted, atelectasis versus pneumonia. There is underlying emphysema. There is a 24 mm nodular opacity superior to the right hilum. Mass or lymphadenopathy not excluded. There is no pneumothorax.. IMPRESSION: Bibasilar opacities, atelectasis versus pneumonia. 24 mm nodular opacity superior to the right hilum, mass or lymphadenopathy not excluded. Consider chest CT. Reviewed, Interpreted and Dictated by Elle Mackay MD Transcribed by Josee Smith Authenticated and [facility]
[2025-06-02 14:43] LABS: Adenovirus,PCR Not Detected (NotDetected); Chlamydophila Pneumoniae, PCR Not Detected (NotDetected); Coronavirus 19, PCR Not Detected (NotDetected); Coronovirus HKU1,PCR Not Detected (NotDetected); Influenza A, PCR Not Detected (NotDetected); Influenza AH1, 2009 Not Detected (NotDetected); Influenza AH1, PCR Not Detected (NotDetected); Influenza AH3,PCR Not Detected (NotDetected); Influenza B, PCR Not Detected (NotDetected); Mycoplasma Pneumoniae, PCR Not Detected (NotDetected); Parainfluenza 1, PCR Not Detected (NotDetected); Parainfluenza 2, PCR Not Detected (NotDetected); Parainfluenza 3, PCR Not Detected (NotDetected); Parainfluenza 4, PCR Not Detected (NotDetected)
[2025-06-02 14:52] LABS: Hematocrit 32.6 % (37.0-47.0); Hemoglobin 10.2 g/dL (12.2-16.2); Immature Granulocytes % 0.5 %; Mean Corpuscular HGB Conc 31.3 g/dL (31.8-35.4); Mean Corpuscular Hemoglobin 28.7 pg (27.0-31.2); Mean Corpuscular Volume 91.8 fl (81-99); Nucleated Red Blood Cells % 0 %; Platelet Count 243 K/mm3 (142-424); Red Blood Count 3.55 M/mm3 (4.20-5.40); Red Cell Distribution Width-SD 48.2 fL; White Blood Count 13.2 K/mm3 (4.8-10.8)
--- NOTE | 2025-06-02 14:52 | ED_ITS ---
<Statement entered by Enmanuel Lopez MD - 06/02/25 19:53> I was consulted by the ASHOK, and we discussed the complexity of the problems being addressed. I approve the treatment and management plan for this patient's care in the emergency department, thus performing a substantive portion of the medical decision making. Enmanuel Lopez MD Discharge Plan Disposition Patient Disposition: Admitted Condition: Good Prescriptions Prescriptions: New cefdinir 300 mg capsule 300 mg PO BID 5 Days Qty: 10 0RF prednisone 50 mg tablet 50 mg PO DAILY 5 Days Qty: 5 0RF albuterol sulfate [Ventolin HFA] 90 mcg/actuation HFA aerosol inhaler 1 inh inhalation Q6H 5 Days Qty: 6.7 0RF azithromycin 500 mg tablet 500 mg PO DAILY 5 Days Qty: 5 0RF No Action calcium carbonate-vitamin D3 600 mg-5 mcg (200 unit) tablet 1 tab PO BID Patient Comments: TAKE ONE TABLET BY MOUTH 2 TIMES A DAY WITH A MEAL cholecalciferol (vitamin D3) 1,250 mcg (50,000 unit) capsule 50,000 unit PO WEEKLY Patient Comments: TAKE 1 CAPSULE BY MOUTH ONCE WEEKLY ipratropium-albuterol 0.5 mg-3 mg(2.5 mg base)/3 mL solution for nebulization 3 ml inhalation QID PRN (Reason: shortness of breath or wheezing) 90 Days Qty: 270 3RF azithromycin 250 mg tablet 250 mg PO QMWF Qty: 45 2RF Trelegy Ellipta 100-62.5-25 mcg blister with device 1 inh inhalation DAILY 90 Days Qty: 90 2RF nicotine 7 mg/24 hr patch 24 hour 1 patch transdermal Q24H Qty: 28 1RF alprazolam 1 mg tablet 1 mg PO BID hydrocodone-acetaminophen 10-325 mg tablet 1 tab PO QID Patient Comments: TAKE 1 TABLET BY MOUTH EVERY 6 HOURS gabapentin 800 mg tablet 800 mg PO TID Patient Comments: TAKE 1 TABLET BY MOUTH 3 TIMES A DAY celecoxib 50 mg capsule 50 mg PO DAILY carvedilol 25 mg Tablet 25 mg PO BID 30 Days Qty: 60 0RF bumetanide 1 mg tablet 1 mg PO DAILY Qty: 30 0RF spironolactone 25 mg tablet 25 mg PO DAILY 30 Days Qty: 30 0RF potassium chloride 20 mEq tablet,ER particles/crystals 20 meq PO BID Patient Comments: TAKE ONE TABLET BY MOUTH 2 TIMES A DAY WITH FOOD magnesium oxide 250 mg magnesium tablet 500 mg PO DAILY Patient Comments: TAKE TWO TABLETS BY MOUTH ONCE A DAY WITH A MEAL ciclopirox 0.77 % cream 1 applic TOPICAL BID Patient Comments: APPLY TO THE AFFECTED AREA(S) 2 TIMES A DAY FOR fungal nails FOR 6 MONTHS sennosides-docusate sodium [Stimulant Laxative Plus] 8.6-50 mg Tablet 1 tab PO BID PRN (Reason: Constipation) 10 Days Qty: 20 0RF montelukast 10 mg tablet 10 mg PO HS albuterol sulfate 90 mcg/actuation HFA aerosol inhaler 2 inh INHALATION Q6HP PRN (Reason: Shortness Of Breath) digoxin 125 mcg (0.125 mg) tablet 125 mcg PO DAILY Qty: 30 0RF losartan 100 mg tablet 100 mg PO DAILY Patient Comments: TAKE 1 TABLET BY MOUTH ONCE A DAY Eliquis 5 mg Tablet 5 mg PO BID Referrals Follow up/Referrals: Stephanie Espinoza APRN [Primary Care Provider, Medical] - See instructions Srini Gan MD [Physician, Pulmonology] - See instructions Activity Restrictions/Add. Instructions Additional Instructions/Restrictions: You were seen and treated send out of the emergency department for shortness of breath. All labs and imaging findings were within normal limits for your condition and when compared to your previous labs and scans. You will be discharged home to follow-up with your primary care provider and chiseler head. Prescriptions have been sent to your pharmacy of choice. Please take these as directed. Return to the emergency department with additional chest pain, worsening shortness of breath with no improvement from home oxygen, or any other emergent medical complaints or concerns. Clinical Impressions Clinical Impression: Acute exacerbation of chronic obstructive pulmonary disease, Chest pain Instructions Patient Instructions: Chronic Obstructive Pulmonary Disease, DI for Chronic Obstructive Pulmonary Disease, DI for Atypical Chest Pain Print Language Print Language: Faroese Discharge ED Provider: Enmanuel Lopez <AKHIL Cardenas - Last Filed: 06/02/25 19:20> General Chief Complaint: Chest Pain Stated Complaint: Chest Pain Time Seen by Provider: 06/02/25 14:21 Mode of Arrival: Wheelchair Source of Information: Patient and Relative Description of Symptoms (Recalled from ER Triage Doc. by RN): Patient presents to ED with SOB, CP, and increased weakness. Patient states Cp started today around 11:30. History of Present Illness HPI narrative: Patient is 70-year-old female who presents to the emergency department with her son with complaints of shortness of breath, chest pain, and fatigue. Patient and son state that the shortness of breath and fatigue have been going on for several days, states that the chest pain began earlier today. Patient has been using her BiPAP for sleep at night as directed, and still is experiencing near constant shortness of breath. Patient also states abdominal pain in left upper area across to the middle of her abdomen. Patient denies any urinary or bowel changes or symptoms. Patient and son state unknown recent fever but denies any new illness or diagnosis. Treatments prior to or on arrival for Cardiac Chest Pain: none Related Data Home Medications ?Medication ?Instructions ?Recorded ?Confirmed albuterol sulfate 90 mcg/actuation 2 inh inhalation Q6 HP PRN 04/15/24 05/19/25 aerosol inhaler Shortness Of Breath montelukast 10 mg tablet 10 mg PO HS 04/15/24 5 apixaban 5 mg tablet (Eliquis) 5 mg PO BID 01/28/25 losartan 100 mg tablet 100 mg PO DAILY 01/28/2512/06 alprazolam 1 mg tablet 1 mg PO BID 03/01/25 5 celecoxib 50 mg capsule 50 mg PO DAILY 03/20/2512/06 gabapentin 800 mg tablet 800 mg PO TID 03/20/2505/19 hydrocodone 10 mg-acetaminophen 1 tab PO QID 10/325MG 03/20/25 05/19/25 325 mg tablet calcium 600 mg (as 1 tab PO BID 03/24/25 carbonate)-vitamin D3 5 mcg (200 unit) tablet cholecalciferol (vitamin D3) 1,250 50,000 unit PO WEEK LY 03/24/25 05/19/25 mcg (50,000 unit) capsule ciclopirox 0.77 % topical cream 1 applic topical BID 1 05/19/25 magnesium oxide 500 mg PO DAILY 04/15/2512/06 potassium chloride 20 mEq 20 meq PO BID 04/15/2505/19 tablet,extended release(part/cryst) Previous Rx's ?Medication ?Instructions ?Recorded digoxin 125 mcg (0.125 mg) tablet 125 mcg PO DAILY #30 tabs 12/01/24 bumetanide 1 mg tablet 1 mg PO DAILY #30 tabs 03/21 carvedilol 25 mg tablet 25 mg PO BID 30 days #60 tab s 03/21/25 spironolactone 25 mg tablet 25 mg PO DAILY 30 days #30 tabs 03/21/25 azithromycin 250 mg tablet 250 mg PO QMWF #45 tabs 05/08 fluticasone fur. 100 mcg-umeclid 1 inh inhalation NGOZI Y 90 days #90 03/24/25 62.5 mcg-vilant 25 mcg ea inhalat.powder (Trelegy Ellipta) ipratropium 0.5 mg-albuterol 3 mg 3 ml inhalation QID PRN shortness 03/24/25 (2.5 mg base)/3 mL nebulization of breath or wheezing 90 days #270 soln mL sennosides 8.6 mg-docusate sodium 1 tab PO BID PRN Con stipation 10 04/16/25 50 mg tablet (Stimulant Laxative days #20 tabs Plus) nicotine 7 mg/24 hr daily 1 patch transdermal Q24H #28 ea 05/11/25 transdermal patch albuterol sulfate 90 mcg/actuation 1 inh inhalation Q6 H 5 days #6.7 06/02/25 aerosol inhaler (Ventolin HFA) grams azithromycin 500 mg tablet 500 mg PO DAILY 5 days #5 t abs 06/02/25 cefdinir 300 mg capsule 300 mg PO BID 5 days #10 cap s 06/02/25 prednisone 50 mg tablet 50 mg PO DAILY 5 days #5 tab s 06/02/25 Allergies Allergy/AdvReac Type Severity Reaction Status Date / Time No Known Allergies Allergy Verified 05/19/25 09:56 [facility] <AKHIL Cardenas - Last Filed: 06/02/25 19:20> [facility] Disclaimer: The information contained in this section may have been updated after the patient was seen, as this information can be updated by other users. Medical History (Updated 06/02/25 @ 19:13 by AKHIL Cardenas) Preop cardiovascular exam Coronary artery calcification seen on CT scan Tobacco dependence Claudication Acute and chronic respiratory failure with hypercapnia Unspecified disturbances of skin sensation Other specified symptoms and signs involving the circulatory and respiratory systems HTN (hypertension) HLD (hyperlipidemia) Pneumonia Fecal occult blood test positive Sepsis without septic shock Lymphedema Physical deconditioning General weakness Lung mass Hypomagnesemia Acute hypokalemia Chronic hyponatremia Generalized weakness COPD mixed type Lung nodule Hypokalemia Elevated troponin Nocturnal hypoxemia Pulmonary emphysema Incidental pulmonary nodule, greater than or equal to 8mm Smoking greater than 30 pack years Dyspnea on exertion Tobacco abuse disorder Tobacco abuse counseling Cervical cancer Surgical History History of dilation and curettage History of back surgery Family History Other Diabetes Social History Smoking Status: Current every day smoker tobacco type: cigarettes packs per day: 2 second hand exposure: Yes alcohol intake: never substance use type: denies use current occupational status: unemployed Travel in the last 8 weeks?: None household members: spouse housing: house current occupational exposures/hazards: No Have you lived/traveled outside [place] in past 30 days?: No Contact w/someone who lives/traveled outside [place] past 30 days?: No Exposure to someone with infectious disease in past 14 days?: No Do you have a fever (greater than 100.4 F or 38 C)?: No Have you tested positive for COVID-19?: No Exposed to someone with COVID-19 in past 14 days?: No Do you have a sore throat?: No Do you have a cough?: No Do you have any weakness?: No Do you have any diarrhea?: No Are you experiencing any unusual bleeding?: No Do you have any muscle aches/pain?: No Do you have any abdominal pain?: No Are you experiencing loss of taste or smell?: No Other Medical History Have you received the Flu Vaccine for this season: No Have you received the Pneumonia Vaccine: No <AKHIL Cardenas - Last Filed: 06/02/25 19:20> ROS Obtained: Yes Systems reviewed as appropriate & no additional complaints except as documented Physical Exam <AKHIL Cardenas - Last Filed: 06/02/25 19:20> General General appearance: alert and in distress Head Head exam: atraumatic and normocephalic Eye Eye exam: Present PERRL Neck Neck exam: Present normal inspection and trachea midline Chest Chest inspection: Present symmetric chest wall rise Respiratory Respiratory exam: Present wheezes and other (Aeration decreased with diminished lung sounds in all [place]) Cardiovascular Cardiovascular exam: Present regular rate and normal rhythm Abdominal Exam Abdominal exam: Present soft and tenderness; Absent distention Comment: Tenderness to left hypochondriac and epigastric regions Extremities Exam Extremities exam: Present other (Generalized weakness in all extremities) Neurological Exam Neurological exam: Present alert and oriented X3 Psychiatric Psychiatric exam: Present normal affect and normal mood Skin Skin exam: Present warm and dry HEART Score <AKHIL Cardenas - Last Filed: 06/02/25 19:20> HEART Score HEART Score assessment performed?: No Critical Care <AKHIL Cardenas - Last Filed: 06/02/25 19:20> Critical Care Time Critical Care Time: No Medical Decision Making <AKHIL Cardenas - Last Filed: 06/02/25 19:20> Medical Records Medical records reviewed: Yes I reviewed the patient's medical records. Azael Inquiry Pt receiving controlled substance: No Vital Signs Vital Signs: 06/02/25 14:27 06/02/25 15:01 06/02/25 17:16 Temperature 98.6 F 98.2 F Temperature Source Axillary Oral Pulse Rate 95 H 84 Pulse Rate [Right Brachial] 104 H Respiratory Rate 22 18 Blood Pressure 135/71 129/60 Blood Pressure [Right Arm] 163/73 H Blood Pressure Mean [Right Arm] 103 Blood Pressure Source Automatic Cuff Blood Pressure Source [Right Arm] Automatic Cuff Blood Pressure Position Sitting Blood Pressure Position [Right Arm] Sitting 02 Sat by Pulse Oximetry 98 99 98 Oxygen Delivery Method Nasal Cannula Room Air Room Air Oxygen Flow Rate (LPM) 3 06/02/25 18:37 06/02/25 19:26 Temperature 98.2 F Temperature Source Pulse Rate 76 74 Pulse Rate [Right Brachial] Respiratory Rate 20 Blood Pressure 128/53 L 128/74 Blood Pressure [Right Arm] Blood Pressure Mean [Right Arm] Blood Pressure Source Blood Pressure Source [Right Arm] Blood Pressure Position Blood Pressure Position [Right Arm] 02 Sat by Pulse Oximetry 100 Oxygen Delivery Method Nasal Cannula Nasal Cannula Oxygen Flow Rate (LPM) 3 3 Lab Data Lab results reviewed: Yes I reviewed the patient's lab results. Labs: Lab Results 06/02/25 14:37: Chlamy pneumoniae PCR Not detected, Adenovirus (PCR) Not detected, B. pertussis DNA (PCR) Not detected, Coronavirus OC43 (PCR) Not detected, Coronavirus HKU1 (PCR) Not detected, Coronavirus 229E (PCR) Not detected, SARS-CoV-2 (PCR) Not detected, Coronavirus NL63 (PCR) Not detected, Human Metapneumovir PCR Not detected, Influenza A (H1) PCR Not detected, Influ A (H1N1/09) PCR Not detected, Influenza A (H3) PCR Not detected, Influenza Type A (PCR) Not detected, Influenza Type B (PCR) Not detected, M. pneumoniae (PCR) Not detected, Parainfluenza 1 (PCR) Not detected, Parainfluenza 2 (PCR) Not detected, Parainfluenza 3 (PCR) Not detected, Parainfluenza 4 (PCR) Not detected, RSV (PCR) Not detected, Entero/Rhino (PCR) Not detected 06/02/25 14:41: WBC 13.2 H, RBC 3.55 L, Hgb 10.2 L, Hct 32.6 L, MCV 91.8, MCH 28.7, MCHC 31.3 L, RDW 14.2, Plt Count 243, MPV 9.2, Neut % (Auto) 82.6 H, Lymph % (Auto) 9.8 L, [place] % (Auto) 6.2, Eos % (Auto) 0.6, Baso % (Auto) 0.3, Neut # (Auto) 10.9 H, Lymph # (Auto) 1.3, [place] # (Auto) 0.8, Eos # (Auto) 0.1, Baso # (Auto) 0.0, PT 11.0, INR 0.99, APTT 27.2, Sodium 135 L, Potassium 3.5, Chloride 90 L, Carbon Dioxide 38 H, Anion Gap 10.5, BUN 16, Creatinine 0.80, Estimated Creat Clear 51, Estimated GFR 71, Est GFR ( Amer) 86, Glucose 157 H, C alcium 10.6 H, Total Bilirubin 0.4, AST 27, ALT 13, Alkaline Phosphatase 67, T otal Creatine Kinase 21 L, Troponin I < 0.01, NT-Pro-B Natriuret Pep 596 H, Total Protein 6.9, Albumin 4.1, Globulin 2.8, Albumin/Globulin Ratio 1.5, Lipase 29, Procalcitonin 0.080 06/02/25 14:49: VBG pH 7.38, VBG pCO2 63.9 H, VBG pO2 66.4 H, VBG HCO3 36.9 H, V BG Total CO2 38.8 H, VBG O2 Saturation 92.1 H, VBG Base Excess 11.7 H, VBG Lactic Acid 2.0 06/02/25 17:38: Lactate 1.3, Troponin I 0.01 06/02/25 14:41 06/02/25 14:41 Response Orders (Tests/Meds): ED MEDICATIONS Generic Name Dose Route Start Last Admin Trade Name Freq PRN Reason Stop Dose Admin Ceftriaxone Sodium 1 gm/ 50 mls @ 100 mls/hr 06/02/25 18:45 06/02/25 18:53 Sodium Chloride IV 06/12/25 18:44 100 mls/hr Q24H VICENTE Administration Nitroglycerin 0.4 mg 06/02/25 14:27 Nitroglycerin 0.4mg Sl Tablet SL 06/03/25 14:28 Q5MINP PRN Chest Pain Sodium Chloride 10 ml 06/02/25 14:27 Sodium Chloride 0.9% 10ml Flush Syringe IV 07/02/25 14:26 NEEDED PRN Maintain IV Site Discontinued Medications Generic Name Dose Route Start Last Admin Trade Name Freq PRN Reason Stop Dose Admin Albuterol/Ipratropium 3 ml 06/02/25 18:37 06/02/25 18:58 Ipratropium/Albuterol 3 Ml Neb IH 06/02/25 18:38 3 ml ONCE ONE Administration Aspirin 324 mg 06/02/25 14:27 06/02/25 14:56 Aspirin 81mg Chewable Tablet PO 06/02/25 14:28 324 mg ONCE ONE Administration Morphine Sulfate 4 mg 06/02/25 14:27 06/02/25 14:56 Morphine 4mg/Ml Syringe IV 06/02/25 14:28 4 mg ONCE ONE Administration Morphine Sulfate 4 mg 06/02/25 16:48 06/02/25 17:20 Morphine 4mg/Ml Syringe IV 06/02/25 16:49 4 mg ONCE ONE Administration Ondansetron HCl 4 mg 06/02/25 14:27 06/02/25 14:56 Ondansetron 4mg/2ml Vial IV 06/02/25 14:28 4 mg ONCE ONE Administration Ondansetron HCl 4 mg 06/02/25 16:48 06/02/25 17:20 Ondansetron 4mg/2ml Vial IV 06/02/25 16:49 4 mg ONCE ONE Administration Sodium Chloride 500 ml 06/02/25 18:36 Sodium Chloride 0.9% 500ml Bag IV 06/02/25 18:37 BOLUS ONE ORDERS Category Date Time Status CT chest wo con Stat Cat Scan 06/02/25 17:02 Completed XR chest portable Stat Exams 06/02/25 14:28 Completed Activated Partial Thrombo Time Stat Lab 06/02/25 14:41 Completed Complete Blood Count Auto Diff Stat Lab 06/02/25 14:41 Completed Comprehensive Metabolic Panel Stat Lab 06/02/25 14:41 Completed Creatine Kinase Stat Lab 06/02/25 14:41 Completed Full Resp Panel w/COVID ([facility]) Routine Lab 06/02/25 14:37 Completed Lactic Acid Stat Lab 06/02/25 17:38 Completed Lipase Stat Lab 06/02/25 14:41 Completed NT Pro Brain Natriuretic Pep. Stat Lab 06/02/25 14:41 Completed Procalcitonin Stat Lab 06/02/25 14:41 Completed Prothrombin Time INR Stat Lab 06/02/25 14:41 Completed Troponin I Q3H Lab 06/02/25 17:38 Completed Troponin I Q3H Lab 06/02/25 20:30 Ordered Troponin I Stat Lab 06/02/25 14:41 Completed Urinalysis and Microscopic Stat Lab 06/02/25 14:33 Ordered Blood Culture Stat Micro 06/02/25 14:50 Received Venous Blood Gas Stat RT 06/02/25 14:49 Completed MDM Narrative Medical Decision Narrative: In summary patient is an 70-year-old female who presents to the emergency department for evaluation of chest pain and shortness of breath. Patient is hemodynamically stable upon arrival, afebrile. Patient has wheezing on auscultation and reduced aeration in lower [place]. Differential diagnosis includes pneumonia, pleural effusion, COVID. Initial workup will be conducted with labs and imaging with chest x-ray and chest CT. Initial interventions include IV fluids, medication for pain and nausea control, IV antibiotics, and a breathing treatment. Initial workup reviewed by me mild leukocytosis with stable anemia on CBC, no significant electrolyte derangement, kidney injury, or transaminitis on CMP, chronic hypercarbia on VBG, and all negative respiratory panel. Upon repeat evaluation medication for pain and nausea as well as breathing treatments have improved patient condition during ED course. Given th current presentation and complaint of the patient when compared to previous visits, the patient is stable to be discharged to home. Plan of care is for patient to be discharged home to follow-up with primary care and pulmonology. Patient verbalized understanding of and is amenable to this plan. Return precautions discussed at bedside and in discharge instructions. I informally interpreted the patient's chest x-ray and CT as remarkable with a possible growing malignancy and and evidence for pneumonia with no significant pleural effusions noted. Patient has been stable on bedside monitor with O2 saturation being 95-100% on her regular home oxygen at 3 L/min. <Sea Sosa MD - Last Filed: 06/02/25 19:44> Vital Signs Vital Signs: 06/02/25 14:27 06/02/25 15:01 06/02/25 17:16 Temperature 98.6 F 98.2 F Temperature Source Axillary Oral Pulse Rate 95 H 84 Pulse Rate [Right Brachial] 104 H Respiratory Rate 22 18 Blood Pressure 135/71 129/60 Blood Pressure [Right Arm] 163/73 H Blood Pressure Mean [Right Arm] 103 Blood Pressure Source Automatic Cuff Blood Pressure Source [Right Arm] Automatic Cuff Blood Pressure Position Sitting Blood Pressure Position [Right Arm] Sitting 02 Sat by Pulse Oximetry 98 99 98 Oxygen Delivery Method Nasal Cannula Room Air Room Air Oxygen Flow Rate (LPM) 3 06/02/25 18:37 06/02/25 19:26 Temperature 98.2 F Temperature Source Pulse Rate 76 74 Pulse Rate [Right Brachial] Respiratory Rate 20 Blood Pressure 128/53 L 128/74 Blood Pressure [Right Arm] Blood Pressure Mean [Right Arm] Blood Pressure Source Blood Pressure Source [Right Arm] Blood Pressure Position Blood Pressure Position [Right Arm] 02 Sat by Pulse Oximetry 100 Oxygen Delivery Method Nasal Cannula Nasal Cannula Oxygen Flow Rate (LPM) 3 3 Lab Data Labs: Lab Results 06/02/25 14:37: Chlamy pneumoniae PCR Not detected, Adenovirus (PCR) Not detected, B. pertussis DNA (PCR) Not detected, Coronavirus OC43 (PCR) Not detected, Coronavirus HKU1 (PCR) Not detected, Coronavirus 229E (PCR) Not detected, SARS-CoV-2 (PCR) Not detected, Coronavirus NL63 (PCR) Not detected, Human Metapneumovir PCR Not detected, Influenza A (H1) PCR Not detected, Influ A (H1N1/09) PCR Not detected, Influenza A (H3) PCR Not detected, Influenza Type A (PCR) Not detected, Influenza Type B (PCR) Not detected, M. pneumoniae (PCR) Not detected, Parainfluenza 1 (PCR) Not detected, Parainfluenza 2 (PCR) Not detected, Parainfluenza 3 (PCR) Not detected, Parainfluenza 4 (PCR) Not detected, RSV (PCR) Not detected, Entero/Rhino (PCR) Not detected 06/02/25 14:41: WBC 13.2 H, RBC 3.55 L, Hgb 10.2 L, Hct 32.6 L, MCV 91.8, MCH 28.7, MCHC 31.3 L, RDW 14.2, Plt Count 243, MPV 9.2, Neut % (Auto) 82.6 H, Lymph % (Auto) 9.8 L, [place] % (Auto) 6.2, Eos % (Auto) 0.6, Baso % (Auto) 0.3, Neut # (Auto) 10.9 H, Lymph # (Auto) 1.3, [place] # (Auto) 0.8, Eos # (Auto) 0.1, Baso # (Auto) 0.0, PT 11.0, INR 0.99, APTT 27.2, Sodium 135 L, Potassium 3.5, Chloride 90 L, Carbon Dioxide 38 H, Anion Gap 10.5, BUN 16, Creatinine 0.80, Estimated Creat Clear 51, Estimated GFR 71, Est GFR ( Amer) 86, Glucose 157 H, C alcium 10.6 H, Total Bilirubin 0.4, AST 27, ALT 13, Alkaline Phosphatase 67, T otal Creatine Kinase 21 L, Troponin I < 0.01, NT-Pro-B Natriuret Pep 596 H, Total Protein 6.9, Albumin 4.1, Globulin 2.8, Albumin/Globulin Ratio 1.5, Lipase 29, Procalcitonin 0.080 06/02/25 14:49: VBG pH 7.38, VBG pCO2 63.9 H, VBG pO2 66.4 H, VBG HCO3 36.9 H, V BG Total CO2 38.8 H, VBG O2 Saturation 92.1 H, VBG Base Excess 11.7 H, VBG Lactic Acid 2.0 06/02/25 17:38: Lactate 1.3, Troponin I 0.01 Response Orders (Tests/Meds): ED MEDICATIONS Generic Name Dose Route Start Last Admin Trade Name Freq PRN Reason Stop Dose Admin Ceftriaxone Sodium 1 gm/ 50 mls @ 100 mls/hr 06/02/25 18:45 06/02/25 18:53 Sodium Chloride IV 06/12/25 18:44 100 mls/hr Q24H VICENTE Administration Nitroglycerin 0.4 mg 06/02/25 14:27 Nitroglycerin 0.4mg Sl Tablet SL 06/03/25 14:28 Q5MINP PRN Chest Pain Sodium Chloride 10 ml 06/02/25 14:27 Sodium Chloride 0.9% 10ml Flush Syringe IV 07/02/25 14:26 NEEDED PRN Maintain IV Site Discontinued Medications Generic Name Dose Route Start Last Admin Trade Name Freq PRN Reason Stop Dose Admin Albuterol/Ipratropium 3 ml 06/02/25 18:37 06/02/25 18:58 Ipratropium/Albuterol 3 Ml Neb IH 06/02/25 18:38 3 ml ONCE ONE Administration Aspirin 324 mg 06/02/25 14:27 06/02/25 14:56 Aspirin 81mg Chewable Tablet PO 06/02/25 14:28 324 mg ONCE ONE Administration Morphine Sulfate 4 mg 06/02/25 14:27 06/02/25 14:56 Morphine 4mg/Ml Syringe IV 06/02/25 14:28 4 mg ONCE ONE Administration Morphine Sulfate 4 mg 06/02/25 16:48 06/02/25 17:20 Morphine 4mg/Ml Syringe IV 06/02/25 16:49 4 mg ONCE ONE Administration Ondansetron HCl 4 mg 06/02/25 14:27 06/02/25 14:56 Ondansetron 4mg/2ml Vial IV 06/02/25 14:28 4 mg ONCE ONE Administration Ondansetron HCl 4 mg 06/02/25 16:48 06/02/25 17:20 Ondansetron 4mg/2ml Vial IV 06/02/25 16:49 4 mg ONCE ONE Administration Sodium Chloride 500 ml 06/02/25 18:36 Sodium Chloride 0.9% 500ml Bag IV 06/02/25 18:37 BOLUS ONE ORDERS Category Date Time Status CT chest wo con Stat Cat Scan 06/02/25 17:02 Completed XR chest portable Stat Exams 06/02/25 14:28 Completed Activated Partial Thrombo Time Stat Lab 06/02/25 14:41 Completed Complete Blood Count Auto Diff Stat Lab 06/02/25 14:41 Completed Comprehensive Metabolic Panel Stat Lab 06/02/25 14:41 Completed Creatine Kinase Stat Lab 06/02/25 14:41 Completed Full Resp Panel w/COVID ([facility]) Routine Lab 06/02/25 14:37 Completed Lactic Acid Stat Lab 06/02/25 17:38 Completed Lipase Stat Lab 06/02/25 14:41 Completed NT Pro Brain Natriuretic Pep. Stat Lab 06/02/25 14:41 Completed Procalcitonin Stat Lab 06/02/25 14:41 Completed Prothrombin Time INR Stat Lab 06/02/25 14:41 Completed Troponin I Q3H Lab 06/02/25 17:38 Completed Troponin I Q3H Lab 06/02/25 20:30 Ordered Troponin I Stat Lab 06/02/25 14:41 Completed Urinalysis and Microscopic Stat Lab 06/02/25 14:33 Ordered Blood Culture Stat Micro 06/02/25 14:50 Received Venous Blood Gas Stat RT 06/02/25 14:49 Completed MDM Narrative Medical Decision Narrative: In summary patient is an 70-year-old female who presents to the emergency department for evaluation of chest pain and shortness of breath. Patient is hemodynamically stable upon arrival, afebrile. Patient has wheezing on auscultation and reduced aeration in lower [place]. Differential diagnosis includes pneumonia, pleural effusion, COVID. Initial workup will be conducted with labs and imaging with chest x-ray and chest CT. Initial interventions include IV fluids, medication for pain and nausea control, IV antibiotics, and a breathing treatment. Initial workup reviewed by me mild leukocytosis with stable anemia on CBC, no significant electrolyte derangement, kidney injury, or transaminitis on CMP, chronic hypercarbia on VBG, and all negative respiratory panel. Upon repeat evaluation medication for pain and nausea as well as breathing treatments have improved patient condition during ED course. Given th current presentation and complaint of the patient when compared to previous visits, the patient is stable to be discharged to home. Plan of care is for patient to be discharged home to follow-up with primary care and pulmonology. Patient verbalized understanding of and is amenable to this plan. Return precautions discussed at bedside and in discharge instructions. I informally interpreted the patient's chest x-ray and CT as remarkable with a possible growing malignancy and and evidence for pneumonia with no significant pleural effusions noted. Patient has been stable on bedside monitor with O2 saturation being 95-100% on her regular home oxygen at 3 L/min. This is Dr. Sosa at 7:42 PM patient ultimately refused to be discharged. I reviewed the case and discussed it with our ASHOK. Patient is at her baseline I reviewed multiple hospitalization she is on 3 L nasal cannula which is her baseline at home she is not in any respiratory distress on my exam oxygen saturations are normal respiratory effort is normal CT scan did not demonstrate any significant dense consolidation there is questionable growing malignancy which we have seen in the past. We attempted to get her home with oral medications however patient refused. Patient actually has follow-up with a primary care doctor tomorrow. She refused numerous times to go home at which point I spoke with hospital medicine who as a courtesy agreed to keep her for observation and symptomatic control. I informed the patient that she did not meet definitive inpatient criteria or admission criteria.
[2025-06-02 14:54] LABS: Lactate Venous 2.0 mmol/L (0.4-2.0); VBG HCO3 36.9 mmol/L (23-30); VBG PH 7.38 mmol/L (7.31-7.41); VBG PO2 66.4 mmol/L (28-40)
[2025-06-02 14:56] LABS: VBG PCO2 63.9 mmol/L (35-51)
[2025-06-02] MEDS: ASPIRIN 81MG CHEWABLE TABLET 324 MG PO (14:56)
[2025-06-02] MEDS: ONDANSETRON 4MG/2ML VIAL 4 MG IV ×2 (14:56→17:20)
[2025-06-02] MEDS: MORPHINE 4MG/ML SYRINGE 4 MG IV ×2 (14:56→17:20)
[2025-06-02 15:07] LABS: Lipase 29 U/L (23-300)
[2025-06-02 15:08] LABS: Alanine Aminotransferase 13 U/L (12-78); Albumin Level 4.1 g/dl (3.5-5.0); Albumin/Globulin Ratio 1.5 (1.1-1.8); Alkaline Phosphatase 67 U/L (38-126); Aspartate Amino Transferase 27 U/L (14-36); Bilirubin,Total 0.4 mg/dl (0.2-1.3); Blood Urea Nitrogen 16 mg/dl (7-17); Calcium 10.6 mg/dl (8.4-10.2); Chloride 90 mmol/L (98-107); Creatinine Clearance Estimated 51 mL/min (50-200); Creatinine,Serum 0.80 mg/dl (0.52-1.04); Estimated Glomerular Filt Rate 71 ml/min (>60); GFR (African American) 86 ML/MIN (>60); Globulin 2.8 g/dL (1.3-3.2); Glucose 157 mg/dl (74-100); Potassium 3.5 mmoL/L (3.5-5.1); Sodium 135 mmol/L (136-145); Total Protein,Serum 6.9 g/dl (6.3-8.2)
[2025-06-02 15:10] LABS: Creatine Kinase 21 U/L (30-135)
[2025-06-02 15:11] LABS: Activated Partial Thrombo Time 27.2 seconds (22.8-30.6); INR 0.99 (0.9-1.1); Prothrombin Time 11.0 seconds (10.1-12.5)
[2025-06-02 15:17] LABS: NT Pro Brain Natriuretic Pep. 596 pg/mL (0-125)
[2025-06-02 15:23] LABS: Troponin I < 0.01 ng/ml (0.00-0.034)
[2025-06-02 15:27] LABS: Procalcitonin 0.080 ng/mL (0.0-2.0)
[2025-06-02 15:33] LABS: Anion Gap 10.5 mEq/L (5-15); Carbon Dioxide 38 mmol/L (22.0-30.0)
--- OUTSIDE RECORDS SUMMARY | 2025-06-02 15:38 | XMS_ITS | Clinical Summary ---
Author Organization [facility] Address [address] [place] [address] Phone Care Team Providers Care Air Pollution Engineer Name Role Phone Unavailable Unavailable Conditions or Problems No information available. Medications No information available. Medications Administered No information available. Allergies, Adverse Reactions, Alerts No information available. Results No information available. Plan of Care No information available. Procedures No information available. Vital Signs No information available. Immunizations No information available. Advance Directives No information available.
--- OUTSIDE RECORDS SUMMARY | 2025-06-02 15:39 | XMS_ITS | Referral Summary ---
Author Organization [facility] ([place], [place], [place], [place], [place]) Address [address] [place] [address] Care Team Providers Care Dewaterer Operator Name Role Phone [facility], Provider Not In The System MD [...] the past 12 months, has t he [employer], [email or web address], [employer], or water [employer] threatened to shut off services in your [...] Do you speak a language other than Ghanaian at [facility]? No 02/07/2025 Do you want help [...] on file Medical Devices Implanted Type Area International Sourcing Manager Device Identifier Shelf Expiration Date Model / Serial / Lot Duraclip Sm 16mm [id number] - [id number] Implanted:Qty: 3 on 02/06/2025 by Marisa Garcia MD at [facility] N/A: Esophagus CONMED 04/28/2027 [id number] / / [id number] Insurance [employer] MCR ADV Advance Directives For more information, please contact: [phone] * DNR - Limited Additional Intervention (Latest Code Status on File) Date Activated Date Inactivated Comments 02/06/2025 9:46 PM 02/09/2025 1:53 PM * Full Code Date Activated Date Inactivated Comments 10/06/2024 8:39 PM 10/09/2024 6:04 PM Care Teams Dewaterer Operator Relationship Specialty Start Date End Date Jorje, Provider Not In The System, [place] [address] PCP - General 02/06/25
--- OUTSIDE RECORDS SUMMARY | 2025-06-02 15:39 | XMS_ITS | Clinical Summary ---
Author Organization Healthcare Address [address] [place] [address] Care Team Providers Care Golf Course Assistant Name Role Phone Rajat Navarro MD Primary Care Provider [phone] Social History Tobacco Use Types Packs/Day Years [...] 2005 UKY-Zoster Vaccines (1 of 2) 2005 [id number] Vaccine ( - 2024- season) 2025 05/24/2021, [...] this topic Insurance [employer] MEDICARE Care Teams Golf Course Assistant Relationship Specialty Start Date End Date Rajat Navarro MD [address] [place] [address] #1 #1 [place] [id number] PCP - General 07/15/20
--- OUTSIDE RECORDS SUMMARY | 2025-06-02 15:39 | XMS_ITS | Clinical Summary ---
Author Organization [facility] ([place], [place], [place], [place], [place]) Address [address] [place] [address] Care Team Providers Care Print Color Matcher Name Role Phone [facility], Provider Not In The [...] the past 12 months, has t he [employer], [employer], [email or web address], or water [employer] threatened to shut off services in your [...] Do you speak a language other than Panamanian at [facility]? No 02/07/2025 Do you want [...] 2025 05/30/2023 Medical Devices Implanted Type Area Computer Aided Design Designer Device Identifier Shelf Expiration Date Model / Serial / Lot Duraclip Sm 16mm [id number] - [id number] Implanted:Qty: 3 on 02/06/2025 by Marisa Garcia MD at [facility] N/A: Esophagus CONMED 04/28/2027 [id number] / / [id number] Insurance [employer] MCR ADV Advance Directives For more information, please contact: [phone] * DNR - Limited Additional Intervention (Latest Code Status on File) Date Activated Date Inactivated Comments 02/06/2025 9:46 PM 02/09/2025 1:53 PM * Full Code Date Activated Date Inactivated Comments 10/06/2024 8:39 PM 10/09/2024 6:04 PM Care Teams Print Color Matcher Relationship Specialty Start Date End Date [facility], Provider Not In The System, [place] [address] PCP - General 02/06/25
--- NOTE | 2025-06-02 17:02 | CT_ITS ---
PROCEDURE INFORMATION: Exam: CT Chest Without Contrast; Diagnostic Exam date and time: 06/02/2025 5:22 PM Age: 70 years old Clinical indication: Shortness of breath; Additional info: Pna vs atelectasis TECHNIQUE: Imaging protocol: Diagnostic computed tomography of the chest without contrast. Radiation optimization: All CT scans at this facility use at least one of these dose optimization techniques: automated exposure control; mA and/or kV adjustment per patient size (includes targeted exams where dose is matched to clinical indication); or iterative reconstruction. COMPARISON: CT ANGIO CHEST PE PROTOCOL 04/14/2025 4:04 PM FINDINGS: Thyroid: The thyroid gland is normal. Lungs: There are punctate pulmonary parenchymal calcifications consistent with remote granulomatous organism exposure. Previously described spiculated density in the posteromedial right upper lobe with perilesional hazy opacities appears not dramatically changed. The spiculated density currently measures approximately 2.9 x 2.0 x 2.4 cm, previously measuring approximately 2.8 x 1.9 x 2.6 cm, not dramatically changed. The adjacent patchy alveolar opacities are stable. Moderate centrilobular emphysematous changes are present. Mild bibasilar streaky opacities suggest atelectasis or parenchymal scarring. There are a few linear markings in the left upper lobe medially which is stable consistent with parenchymal scarring. No new focal areas of consolidation. Flattening of the hemidiaphragms and increase in the AP diameter of the chest suggest COPD. Pleural spaces: There is no evidence of pneumothorax. No pleural effusions. Heart: The heart is borderline enlarged. There is a small pericardial fluid collection present. Coronary arteries: There is moderate atherosclerotic calcification of the coronary arteries. Lymph nodes: There is a 12 mm nonspecific right precarinal lymph node, not dramatically changed. There are a few additional small mediastinal lymph nodes which are not of pathologic significance by size criteria. Evaluation of hilar adenopathy is limited due to lack of intravenous contrast. Calcified hilar lymph nodes indicate prior granulomatous disease. Vasculature: There is no evidence of an aortic aneurysm. There is enlargement of the main pulmonary artery measuring 3.7 cm suggesting pulmonary arterial hypertension. Prominent ostial calcifications are present involving the great vessels as well as the celiac and SMA and bilateral renal artery origins. Stenosis can not be excluded without intravenous contrast. Diaphragm: A small hiatal hernia is present. Liver: The liver has a nodular contour consistent with cirrhosis. There are a few small hepatic hypodensities which are too small to adequately characterize and not optimally evaluated without intravenous contrast involving the visualized portions of the liver. Spleen: The spleen demonstrates punctate calcifications, consistent with remote granulomatous organism exposure. Adrenal glands: The adrenal glands are normal. Kidneys: There is moderate to marked bilateral nonspecific inflammatory perinephric stranding, incompletely visualized. There is a 5 mm small ovoid focus of increased attenuation in the posterior left kidney and 7 mm ovoid focus in the superior right kidney which are not optimally characterized on current exam and may reflect small hyperdense cysts. There is a 2.5 cm hypodensity in the lateral right kidney which is not optimally characterized by most consistent with cyst. There is a small punctate calcification in the superior left peripheral renal cortex. There are a few additional bilateral small renal hypodensities which are too small to accurately characterize. Statistically, these may be cysts. No follow-up imaging required unless clinical parameters dictate otherwise. Bones/joints: There is mild diffuse osteopenia. The thoracolumbar spine demonstrates moderate degenerative changes at multiple levels. Several moderate to severe compression fractures are not dramatically changed when compared with 04/14/2025 involving T11, T12 and L2 mild retropulsion of the posterosuperior aspect of L2 is stable.There is prominent accentuation of thoracic kyphosis. Soft tissues: Unremarkable. Other findings: Evaluation is limited by the lack of intravenous contrast. IMPRESSION: 1. Little significant change in the previously described spiculated density in the posteromedial right upper lobe. As before, findings could reflect malignancy or organizing pneumonia. Recommend PET-CT scanning for further evaluation. The additional adjacent patchy interstitial and alveolar densities appear not dramatically changed. 2. Small to moderate stable hiatal hernia. 3. Stable nonspecific right precarinal lymph node. 4. Persistent pulmonary arterial enlargement consistent with pulmonary arterial hypertension. 5. Moderate emphysema. 6. Severe atherosclerotic vascular disease. 7. Two subcentimeter renal hyperdensities which are not optimally characterized on current exam but may reflect small hyperdense cysts. 8. Severe nonspecific bilateral perinephric fat stranding. Correlate clinically. 9. Hepatic contour suggests cirrhosis. COMMENTS: Consistent with the [employer]'s Incidental Findings Committee white paper (J Am Janice Radiol 2018): Any incidental renal lesion less than 1 cm or classified as too small to characterize, or any incidental cystic renal lesion characterized as simple-appearing, is likely benign. No follow-up imaging is recommended for these lesions per consensus recommendations based on imaging criteria.
[2025-06-02 18:12] LABS: Troponin I 0.01 ng/ml (0.00-0.034)
[2025-06-02] MEDS: CEFTRIAXONE 1 GM 1 GM in 0.9 % SODIUM CHLORIDE 50 ML IV (18:53)
[2025-06-02] MEDS: IPRATROPIUM/ALBUTEROL 3 ML NEB IH (18:58)
--- NOTE | 2025-06-02 20:03 | P.HP_ITS ---
<Statement entered by Sulaiman Butt MD - 06/07/25 11:08> Agree with plan of care as outlined by the [employer]ICAL [employer]INE[employer]. History of Present Illness *Admission Date: 06/02/25 *Reason for visit:: Chest pain *History of present illness: This is a 70-year-old female who is well-known to our service and has a past medical history significant for atrial fibrillation currently prescribed Eliquis for management, coronary artery disease, claudication, acute on chronic respiratory failure with hypercarbia home O2 dependent at 3 L/BiPAP at night, hyperlipidemia, hypertension, lymphedema, lung mass, COPD, and cervical cancer who presents with a chief complaint of shortness of air, chest pain, and fatigue. Due to patient's symptoms, she presented to the emergency room for evaluation. While in the emergency room, CTA of the chest revealed likely significant change in the previously described spiculated density in the posterior medial right upper lobe findings are consistent with malignancy, small to moderate stable hiatal hernia, right precarinal lymph node, pulmonary artery enlargement consistent with pulmonary artery hypertension, moderate emphysema, severe arthrosclerotic vascular disease, 2 subcentimeter renal hypodensities which are not optimally characterized, severe nonspecific bilateral perinephritic fat stranding, and hepatic contour suggestive of cirrhosis. Patient was triaged to the emergency room and was set to discharge home with patient refused; as result, hospital medicine was consulted for further management. During my evaluation of the patient, she states she has been having midsternal chest pain without any radiation, shortness of air, and fatigue over the last 7 days. Patient is not endorsing any productive cough. Patient was informed of the findings on the CT scan and she was aware. On last admission in April, pulmonology discussed the findings with patient and informed patient she will need biopsy. Patient has just to follow-up with pulmonology. She is currently denying any lightheadedness, dizziness, fever, chills, rigors, nausea, vomiting, PND, orthopnea, or diarrhea. EKG revealed a sinus tachycardia, QTc of 371, normal axis, negative STEMI. Additional pertinent labs obtained include a white blood cell count of 13.2, red blood cell count of 3.55, hemoglobin of 10.2, hematocrit of 32.6, neutrophils 82.6%, blood gas revealed a pH of 7.38, pCO2 63.9, HCO3 38.8, sodium of 135, chloride of 90, carbon oxide of 38, blood glucose 157, calcium of 10.6, and BNP of 596. [facility] Disclaimer: The information contained in this section may have been updated after the patient was seen, as this information can be updated by other users. Medical History (Updated 06/02/25 @ 20:15 by Eddi Negron APRN) Preop cardiovascular exam Coronary artery calcification seen on CT scan Tobacco dependence Claudication Acute and chronic respiratory failure with hypercapnia Unspecified disturbances of skin sensation Other specified symptoms and signs involving the circulatory and respiratory systems HTN (hypertension) HLD (hyperlipidemia) Pneumonia Fecal occult blood test positive Sepsis without septic shock Lymphedema Physical deconditioning General weakness Lung mass Hypomagnesemia Acute hypokalemia Chronic hyponatremia Generalized weakness COPD mixed type Lung nodule Hypokalemia Elevated troponin Nocturnal hypoxemia Pulmonary emphysema Incidental pulmonary nodule, greater than or equal to 8mm Smoking greater than 30 pack years Dyspnea on exertion Tobacco abuse disorder Tobacco abuse counseling Cervical cancer Surgical History History of dilation and curettage History of back surgery Family History Other Diabetes Social History (Updated 06/02/25 @ 21:33 by Lorie Drake RN) Smoking Status: Current some day smoker tobacco type: cigarettes packs per day: 2 second hand exposure: Yes alcohol intake: never substance use type: denies use current occupational status: unemployed Travel in the last 8 weeks?: None household members: spouse housing: house current occupational exposures/hazards: No Have you lived/traveled outside [place] in past 30 days?: No Contact w/someone who lives/traveled outside [place] past 30 days?: No Exposure to someone with infectious disease in past 14 days?: No Do you have a fever (greater than 100.4 F or 38 C)?: No Have you tested positive for COVID-19?: No Exposed to someone with COVID-19 in past 14 days?: No Do you have a sore throat?: No Do you have a cough?: No Do you have any weakness?: No Do you have any diarrhea?: No Are you experiencing any unusual bleeding?: No Do you have any muscle aches/pain?: No Do you have any abdominal pain?: No Are you experiencing loss of taste or smell?: No Other Medical History Have you received the Flu Vaccine for this season: No Have you received the Pneumonia Vaccine: No Review of Systems Review of Systems Review of systems:: pertinent systems reviewed and negative unless documented below Constitutional Constitutional: Reports lethargy Eyes Eyes: Reports system reviewed and no additional complaints, except as documented ENT Ears, Nose, Mouth, and Throat: Reports system reviewed and no additional complaints, except as documented *Cardiovascular Cardiovascular: Reports chest pain, Reports chest pain at rest, Reports dyspnea and Reports dyspnea on exertion *Respiratory Respiratory: Reports dyspnea, Reports dyspnea on exertion and Reports wheezing *Gastrointestinal Gastrointestinal: Reports system reviewed and no additional complaints, except as documented *Genitourinary Genitourinary: Reports system reviewed and no additional complaints, except as documented *Musculoskeletal Musculoskeletal: Reports system reviewed and no additional complaints, except as documented Integumentary/Breasts Skin/Breast: Reports system reviewed and no additional complaints, except as documented *Neurologic Neurologic: Reports system reviewed and no additional complaints, except as documented Psychiatric Psychiatric: Reports system reviewed and no additional complaints, except as documented Endocrine Endocrine: Reports system reviewed and no additional complaints, except as documented Hematologic/Lymphatic Hematologic/Lymphatic: Reports system reviewed and no additional complaints, except as documented Allergic/Immunologic Allergic/Immunologic: Reports wheezing Meds Home Medications and Allergies Home Medications ?Medication ?Instructions ?Recorded ?Confirmed ?Type albuterol sulfate 90 mcg/actuation 2 inh inhalation Q6 HP PRN 04/15/24 06/02/25 History aerosol inhaler Shortness Of Breath montelukast 10 mg tablet 10 mg PO HS 04/15/24 5 History apixaban 5 mg tablet (Eliquis) 5 mg PO BID 01/28/25 History losartan 100 mg tablet 100 mg PO DAILY 01/28/25 History alprazolam 1 mg tablet 1 mg PO BID 03/01/25 5 History gabapentin 800 mg tablet 800 mg PO TID 03/20/2506/02 History hydrocodone 10 mg-acetaminophen 1 tab PO QID 10/325MG 03/20/25 06/02/25 History 325 mg tablet bumetanide 1 mg tablet 1 mg PO DAILY #30 tabs 03/2106/02/25 Rx carvedilol 25 mg tablet 25 mg PO BID 30 days #60 tab s 03/21/25 06/02/25 Rx azithromycin 250 mg tablet 250 mg PO QMWF #45 tabs 05/0806/02/25 Rx cholecalciferol (vitamin D3) 1,250 50,000 unit PO WEEK LY 03/24/25 06/02/25 History mcg (50,000 unit) capsule sennosides 8.6 mg-docusate sodium 1 tab PO BID PRN Con stipation 10 04/16/25 06/02/25 Rx 50 mg tablet (Stimulant Laxative days #20 tabs Plus) nicotine 7 mg/24 hr daily 1 patch transdermal Q24H #28 ea 05/11/25 06/02/25 Rx transdermal patch albuterol sulfate 90 mcg/actuation 1 inh inhalation Q6 H 5 days #6.7 06/02/25 Rx aerosol inhaler (Ventolin HFA) grams azithromycin 500 mg tablet 500 mg PO DAILY 5 days #5 t abs 06/02/25 Rx cefdinir 300 mg capsule 300 mg PO BID 5 days #10 cap s 06/02/25 Rx magnesium gluconate 27 mg 27 mg PO DAILY 06/02/2505/15 History magnesium (500 mg) tablet prednisone 50 mg tablet 50 mg PO DAILY 5 days #5 tab s 06/02/25 Rx New Prescriptions to Start Prescriptions: albuterol sulfate [Ventolin HFA] Benjamin Wells azithromycin Benjamin Wells cefdinir Russell,Benjamin Servin prednisone Benjamin Wells Allergies Allergy/AdvReac Type Severity Reaction Status Date / Time No Known Allergies Allergy Verified 05/19/25 09:56 Exam Data for Last 24 hours Vital signs and Labs for Last 24 Hours: Temp Pulse Resp BP Pulse Ox O2 Del Method O2 Flow Rate 98.2 F 74 20 128/74 100 Nasal Cannula 3 06/02/25 19:26 06/02/25 19:26 06/02/25 19:26 06/02/25 19:26 06/02/25 18:37 06/02/25 19:26 06/02/25 19:26 Laboratory Results - last 24 hr 06/02/25 14:37: Chlamy pneumoniae PCR Not detected, Adenovirus (PCR) Not detected, B. pertussis DNA (PCR) Not detected, Coronavirus OC43 (PCR) Not detected, Coronavirus HKU1 (PCR) Not detected, Coronavirus 229E (PCR) Not detected, SARS-CoV-2 (PCR) Not detected, Coronavirus NL63 (PCR) Not detected, Human Metapneumovir PCR Not detected, Influenza A (H1) PCR Not detected, Influ A (H1N1/09) PCR Not detected, Influenza A (H3) PCR Not detected, Influenza Type A (PCR) Not detected, Influenza Type B (PCR) Not detected, M. pneumoniae (PCR) Not detected, Parainfluenza 1 (PCR) Not detected, Parainfluenza 2 (PCR) Not detected, Parainfluenza 3 (PCR) Not detected, Parainfluenza 4 (PCR) Not detected, RSV (PCR) Not detected, Entero/Rhino (PCR) Not detected 06/02/25 14:41: WBC 13.2 H, RBC 3.55 L, Hgb 10.2 L, Hct 32.6 L, MCV 91.8, MCH 28.7, MCHC 31.3 L, RDW 14.2, Plt Count 243, MPV 9.2, Neut % (Auto) 82.6 H, Lymph % (Auto) 9.8 L, [place] % (Auto) 6.2, Eos % (Auto) 0.6, Baso % (Auto) 0.3, Neut # (Auto) 10.9 H, Lymph # (Auto) 1.3, [place] # (Auto) 0.8, Eos # (Auto) 0.1, Baso # (Auto) 0.0, PT 11.0, INR 0.99, APTT 27.2, Sodium 135 L, Potassium 3.5, Chloride 90 L, Carbon Dioxide 38 H, Anion Gap 10.5, BUN 16, Creatinine 0.80, Estimated Creat Clear 51, Estimated GFR 71, Est GFR ( Amer) 86, Glucose 157 H, Calcium 10.6 H, Total Bilirubin 0.4, AST 27, ALT 13, Alkaline Phosphatase 67, Total Creatine Kinase 21 L, Troponin I < 0.01, NT-Pro-B Natriuret Pep 596 H, Total Protein 6.9, Albumin 4.1, Globulin 2.8, Albumin/Globulin Ratio 1.5, Lipase 29, Procalcitonin 0.080 06/02/25 14:49: VBG pH 7.38, VBG pCO2 63.9 H, VBG pO2 66.4 H, VBG HCO3 36.9 H, VBG Total CO2 38.8 H, VBG O2 Saturation 92.1 H, VBG Base Excess 11.7 H, VBG Lactic Acid 2.0 06/02/25 17:38: Lactate 1.3, Troponin I 0.01 I & O for Last 24 hours: Intake & Output 05/30/25 05/31/25 06/01/25 06/02/25 23:59 23:59 23:59 23:59 Weight 61.235 kg Constitutional Constitutional: no acute distress, thin, chronically ill appearing and cooperative *Routine HEENT Exam Head: Present normocephalic and atraumatic Eye: Present EOMI and PERRL ENT: Present mucous membranes moist *Routine Neck Exam Neck: Present supple, full ROM and trachea midline *Routine Respiratory Exam Respiratory: Present wheezes, distant breath sounds, diminished air movement, able to speak in complete sentences and symmetric chest movement *Routine Cardiovascular Exam Cardiovascular: Present Normal S1 and Normal S2 *Routine Abdominal Exam Abdominal: Present soft and normoactive bowel sounds *Routine Rectal Exam Rectal:: deferred *Routine Genitalia Exam Genitalia:: deferred *Routine Extremities Exam Extremities: Present full ROM, pulses intact and normal capillary refill Routine Back/Spine/Pelvis Exam Back/Spine: Present full ROM *Routine Skin Exam Skin: Present intact, dry and warm *Routine Neurological Exam Neurological: Present alert, oriented X3, CN II-XII intact and moving all extremities Routine Psychiatric Exam Psychiatric: Present normal affect, normal thought process, cooperative and good insight H&P: Result Impressions 70-year-old female who appears chronically ill and has known re spiratory failure that is chronic presents with a chief complaint of shortness of air and chest pain. Of note, imaging of the chest showing worsening of the right upper lobe malignancy and patient has yet to follow-up. Assessment and Plan *Assessment and plan (1) Chest pain: Status: Acute Qualifiers: Chest pain type: unspecified Qualified Code(s): R07.9 - Chest pain, unspecified Category: Medical Code(s): R07.9 - Chest pain, unspecified (2) Acute exacerbation of chronic obstructive pulmonary disease: Status: Acute Category: Medical Code(s): J44.1 - Chronic obstructive pulmonary disease with (acute) exacerbation Plan Assessment: Chest pain Right upper lobe mass concerning for lung malignancy Pulmonary artery hypertension: Seen on imaging HFrEF: Does not appear to be decompensated Elevated BNP - Patient recently underwent ischemic workup and there were was no evidence of reversible ischemia EF at that time was 56% (this was performed on 06/08) - Patient still has not followed up for biopsy of right upper lobe mass - EMR fails to yield recent CEA - Will obtain CEA - Encourage patient to follow-up with pulmonology for biopsy - Last 2D echo revealed normal right-sided ventricular pressures COPD exacerbation: Most likely Gold stage delta Acute on chronic hypoxic hypercapnic respiratory failure Emphysema: Seen on imaging Leukocytosis with left shift - Will continue patient's Trelegy patient can use BiPAP with inspiratory pressure of 10 expiratory pressure of 5 RT can titrate for comfort-patient did not know her settings - DuoNebs every 6 hours - 0.5 mg of budesonide nebulized treatment twice daily - 40 mg of prednisone p.o. daily - 750 mg of levofloxacin p.o. daily - Continue supplemental oxygen to maintain oxygen saturation greater 90% - Patient most likely has end-stage COPD. From an acute management side, there is not much to be done to help improve her symptomology- Atrial fibrillation - Once med rec is updated we will continue Eliquis Cirrhosis: Seen on imaging - MELD sodium score of 6 does not appear to be decompensated Noncompliance - Will encourage patient to be compliant with medical therapy Hiatal hernia: Seen on imaging - Appears to be stable Plan: Admit patient to the MedSurg unit Saline lock Cardiac diet CBC/BMP daily 21 mg nicotine patch daily-patient continues to smoke 4 mg Zofran IV push every 8 hours. Nausea vomiting Full code I will discussed this case with attending physician Dr. Butt and I look forward to more input
--- NOTE | 2025-06-02 20:05 | PC.NURSE ---
report called to Lorie MARTI
[2025-06-02 21:36] LABS: Troponin I < 0.01 ng/ml (0.00-0.034)
[2025-06-02] MEDS: ALUMINUM/MAGNESIUM/SIMETHICONE 30ML UDC 30 ML PO (21:55)
[2025-06-02 22:23] LABS: Microscopic, Urine URINE MICROSCOPIC (MICROSCOPIC)
[2025-06-02 22:24] LABS: Bilirubin,Urine Negative (Negative); Color,Urine YELLOW (Yellow); Glucose,Urine (UA) Negative (Negative); Ketones,Urine Negative (Negative); Leukocyte Esterase,Urine 1+ (Negative); PH,Urine 6.0 (5.0-8.5); Protein,Urine Negative (Negative); Specific Gravity, Urine 1.010 (1.005-1.030); Urobilinogen,Urine 0.2 EU/dl (0.2)
[2025-06-02 22:33] LABS: Bacteria,Urine 1+ /lpf
[2025-06-03] VITALS (10 sets, daily range): BP systolic 103–149; BP diastolic 41–71; PULSE 71–108; RESP 14–24; TEMP 36.7–37.4; O2SAT 92–95; BMI 23.9
--- NOTE | 2025-06-03 01:40 | PC.NURSE ---
Called to check status of bipap; respiratory states they are aware patient needs bipap but are with another patient at this time; state they will be by patients room next
--- NOTE | 2025-06-03 01:42 | PC.NURSE ---
Spoke to patients daughter on the phone with son yelling in background; state they are not happy with patients care because the hospital tried to send patient home and that patient has been going downhill for a week. State they called and patient was confused on why she is here. State that the son will be coming to the hospital to oversee her care since they are not happy thus far. Alerted charge nurse son is coming to the hospital and that he is not happy with care.
--- NOTE | 2025-06-03 03:08 | PC.NURSE ---
patient refuses IV
[2025-06-03] MEDS: IPRATROPIUM/ALBUTEROL 3 ML NEB IH ×2 (06:25→11:04)
[2025-06-03] MEDS: BUDESONIDE 0.5MG/2ML NEB 0.5 MG IH (06:26)
[2025-06-03 06:32] LABS: Hematocrit 28.1 % (37.0-47.0); Immature Granulocytes % 0.5 %; Mean Corpuscular HGB Conc 30.6 g/dL (31.8-35.4); Mean Corpuscular Hemoglobin 28.5 pg (27.0-31.2); Mean Corpuscular Volume 93.0 fl (81-99); Nucleated Red Blood Cells % 0 %; Platelet Count 231 K/mm3 (142-424); Red Blood Count 3.02 M/mm3 (4.20-5.40); Red Cell Distribution Width-SD 48.3 fL; White Blood Count 12.9 K/mm3 (4.8-10.8)
[2025-06-03 06:40] LABS: Blood Urea Nitrogen 16 mg/dl (7-17); Calcium 9.8 mg/dl (8.4-10.2); Chloride 90 mmol/L (98-107); Creatinine Clearance Estimated 44 mL/min (50-200); Creatinine,Serum 1.10 mg/dl (0.52-1.04); Estimated Glomerular Filt Rate 49 ml/min (>60); GFR (African American) 59 ML/MIN (>60); Glucose 105 mg/dl (74-100); Potassium 3.4 mmoL/L (3.5-5.1); Sodium 135 mmol/L (136-145)
[2025-06-03 07:38] LABS: Anion Gap 9.4 mEq/L (5-15); Carbon Dioxide 39 mmol/L (22.0-30.0)
[2025-06-03 07:40] LABS: Hemoglobin 8.6 g/dL (12.2-16.2)
--- NOTE | 2025-06-03 07:53 | HMH.PHAINT1 ---
Pharmacy Intervention Comments: HOME MEDICATION LIST VERIFIED USING LIST FROM OUTPATIENT PHARMACY AND PT INTERVIEW
[2025-06-03 09:07] LABS: Digoxin 1.00 ng/ml (0.2-2.00)
--- NOTE | 2025-06-03 09:38 | EXP.PULM.CON ---
History of Present Illness History of present illness: Ms. Balbuena is a 70-year-old female current smoker greater than [id number] smoking history COPD, chronic hypoxic respiratory failure on 2 to 3 L nasal on supplementation at baseline prior admissions for hypercarbic respiratory failure presented to the ER with worsening respiratory distress and pulmonary was called for further evaluation and management. [facility] Disclaimer: The information contained in this section may have been updated after the patient was seen, as this information can be updated by other users. Medical History (Updated 06/02/25 @ 20:15 by Eddi Negron APRN) Preop cardiovascular exam Coronary artery calcification seen on CT scan Tobacco dependence Claudication Acute and chronic respiratory failure with hypercapnia Unspecified disturbances of skin sensation Other specified symptoms and signs involving the circulatory and respiratory systems HTN (hypertension) HLD (hyperlipidemia) Pneumonia Fecal occult blood test positive Sepsis without septic shock Lymphedema Physical deconditioning General weakness Lung mass Hypomagnesemia Acute hypokalemia Chronic hyponatremia Generalized weakness COPD mixed type Lung nodule Hypokalemia Elevated troponin Nocturnal hypoxemia Pulmonary emphysema Incidental pulmonary nodule, greater than or equal to 8mm Smoking greater than 30 pack years Dyspnea on exertion Tobacco abuse disorder Tobacco abuse counseling Cervical cancer Surgical History History of dilation and curettage History of back surgery Family History Other Diabetes Social History (Updated 06/02/25 @ 21:33 by Lorie Drake RN) Smoking Status: Current some day smoker tobacco type: cigarettes packs per day: 2 second hand exposure: Yes alcohol intake: never substance use type: denies use current occupational status: unemployed Travel in the last 8 weeks?: None household members: spouse housing: house current occupational exposures/hazards: No Have you lived/traveled outside [place] in past 30 days?: No Contact w/someone who lives/traveled outside [place] past 30 days?: No Exposure to someone with infectious disease in past 14 days?: No Do you have a fever (greater than 100.4 F or 38 C)?: No Have you tested positive for COVID-19?: No Exposed to someone with COVID-19 in past 14 days?: No Do you have a sore throat?: No Do you have a cough?: No Do you have any weakness?: No Do you have any diarrhea?: No Are you experiencing any unusual bleeding?: No Do you have any muscle aches/pain?: No Do you have any abdominal pain?: No Are you experiencing loss of taste or smell?: No Review of Systems Constitutional Constitutional: Reports fatigue and Reports weakness Eyes Eyes: Denies itchy eyes and Denies loss of vision ENT Ears, Nose, Mouth, and Throat: Denies lip swelling, Denies throat swelling and Denies vertigo *Cardiovascular Cardiovascular: Reports chest pain, Reports dyspnea, Reports dyspnea on exertion and Denies syncope *Respiratory Respiratory: Denies change in phlegm color, Reports chest congestion, Reports cough, Reports dyspnea, Reports dyspnea on exertion, Denies excessive phlegm production and Denies wheezing *Gastrointestinal Gastrointestinal: Denies abdominal pain, Denies belching, Reports change in stool character, Denies cramping and Reports diarrhea *Musculoskeletal Musculoskeletal: Reports back pain, Reports myalgias and Reports other (No small joint swelling or Pain) *Neurologic Neurologic: Reports system reviewed and no additional complaints, except as documented, Denies loss of vision, Denies syncope, Denies vertigo and Reports weakness Psychiatric Psychiatric: Denies homicidal ideation and Denies suicidal ideation Endocrine Endocrine: Reports fatigue and Denies heat intolerance Hematologic/Lymphatic Hematologic/Lymphatic: Denies easy bleeding and Denies lymphadenopathy Allergic/Immunologic Allergic/Immunologic: Denies itchy eyes, Denies lip swelling, Denies throat swelling and Denies wheezing Pulmonology Exam Inpatient Vital signs and Labs for Last 24 Hours: Temp Pulse Resp BP Pulse Ox O2 Del Method O2 Flow Rate 98.3 F 83 18 134/57 L 95 Nasal Cannula 4 06/03/25 08:00 06/03/25 08:00 06/03/25 08:00 06/03/25 08:00 06/03/25 08:00 06/03/25 09:23 06/03/25 09:23 FiO2 35 06/03/25 01:53 Laboratory Results - last 24 hr 06/02/25 14:37: Chlamy pneumoniae PCR Not detected, Adenovirus (PCR) Not detected, B. pertussis DNA (PCR) Not detected, Coronavirus OC43 (PCR) Not detected, Coronavirus HKU1 (PCR) Not detected, Coronavirus 229E (PCR) Not detected, SARS-CoV-2 (PCR) Not detected, Coronavirus NL63 (PCR) Not detected, Human Metapneumovir PCR Not detected, Influenza A (H1) PCR Not detected, Influ A (H1N1/09) PCR Not detected, Influenza A (H3) PCR Not detected, Influenza Type A (PCR) Not detected, Influenza Type B (PCR) Not detected, M. pneumoniae (PCR) Not detected, Parainfluenza 1 (PCR) Not detected, Parainfluenza 2 (PCR) Not detected, Parainfluenza 3 (PCR) Not detected, Parainfluenza 4 (PCR) Not detected, RSV (PCR) Not detected, Entero/Rhino (PCR) Not detected 06/02/25 14:41: WBC 13.2 H, RBC 3.55 L, Hgb 10.2 L, Hct 32.6 L, MCV 91.8, MCH 28.7, MCHC 31.3 L, RDW 14.2, Plt Count 243, MPV 9.2, Neut % (Auto) 82.6 H, Lymph % (Auto) 9.8 L, [place] % (Auto) 6.2, Eos % (Auto) 0.6, Baso % (Auto) 0.3, Neut # (Auto) 10.9 H, Lymph # (Auto) 1.3, [place] # (Auto) 0.8, Eos # (Auto) 0.1, Baso # (Auto) 0.0, PT 11.0, INR 0.99, APTT 27.2, Sodium 135 L, Potassium 3.5, Chloride 90 L, Carbon Dioxide 38 H, Anion Gap 10.5, BUN 16, Creatinine 0.80, Estimated Creat Clear 51, Estimated GFR 71, Est GFR ( Amer) 86, Glucose 157 H, Calcium 10.6 H, Total Bilirubin 0.4, AST 27, ALT 13, Alkaline Phosphatase 67, Total Creatine Kinase 21 L, Troponin I < 0.01, NT-Pro-B Natriuret Pep 596 H, Total Protein 6.9, Albumin 4.1, Globulin 2.8, Albumin/Globulin Ratio 1.5, Lipase 29, Procalcitonin 0.080 06/02/25 14:49: VBG pH 7.38, VBG pCO2 63.9 H, VBG pO2 66.4 H, VBG HCO3 36.9 H, VBG Total CO2 38.8 H, VBG O2 Saturation 92.1 H, VBG Base Excess 11.7 H, VBG Lactic Acid 2.0 06/02/25 17:38: Lactate 1.3, Troponin I 0.01 06/02/25 21:06: Troponin I < 0.01 06/02/25 22:20: Urine Color Yellow, Urine Appearance Clear, Urine pH 6.0, Ur Specific Geff 1.010, Urine Protein Negative, Urine Glucose (UA) Negative, Urine Ketones Negative, Urine Blood Negative, Urine Nitrate Negative, Urine Bilirubin Negative, Urine Urobilinogen 0.2, Ur Leukocyte Esterase 1+ A, Urine RBC None, Urine WBC 5-10, Ur Squamous Epith Cells None, Urine Bacteria 1+ 06/03/25 06:00: WBC 12.9 H, RBC 3.02 L, Hgb 8.6 L D, Hct 28.1 L, MCV 93.0, MCH 28.5, MCHC 30.6 L, RDW 14.3, Plt Count 231, MPV 9.5, Neut % (Auto) 77.4, Lymph % (Auto) 14.0, [place] % (Auto) 6.9, Eos % (Auto) 0.9, Baso % (Auto) 0.3, Neut # (Auto) 10.0 H, Lymph # (Auto) 1.8, [place] # (Auto) 0.9, Eos # (Auto) 0.1, Baso # (Auto) 0.0, Sodium 135 L, Potassium 3.4 L, Chloride 90 L, Carbon Dioxide 39 H, Anion Gap 9.4, BUN 16, Creatinine 1.10 H D, Estimated Creat Clear 44, Estimated GFR 49 L, Est GFR ( Amer) 59 D, Glucose 105 H D, Calcium 9.8, Digoxin 1.00 I & O for Labs for Last 24 Hours: Intake & Output 05/31/25 06/01/25 06/02/25 06/03/25 23:59 23:59 23:59 23:59 Intake Total 50 / 50 480 / 480 Output Total 100 / 350 700 / 700 Balance -50 / -300 -220 / -220 Weight 130 lb 130 lb Constitutional: Present mild distress Head: Present normocephalic and atraumatic ENT: Present normal exam, normal oropharynx and mucous membranes moist Neck: Present normal inspection and full ROM Respiratory: Present normal respiratory effort and able to speak in complete sentences; Absent prolonged expiratory phase, respiratory distress, wheezes, crackles or diminished air movement Cardiac: Present S1/S2, Tachycardia and radial pulses present GI: Present soft and distention Rectal (female): Present deferred (female): Present deferred Skin: Present intact; Absent cyanosis or jaundice Neuro: Present alert, awake and oriented x 3 Extremities: Present normal inspection; Absent clubbing or cyanosis Psychiatric: Present normal affect and cooperative Meds Home Medications and Allergies Home Medications ?Medication ?Instructions ?Recorded ?Confirmed ?Type montelukast 10 mg tablet 10 mg PO HS 04/15/24 06/02/25 History apixaban 5 mg tablet (Eliquis) 5 mg PO BID 01/28/25 06/02/25 History losartan 100 mg tablet 100 mg PO DAILY 01/28/25 06/02/25 History alprazolam 1 mg tablet 1 mg PO BID 03/01/25 06/02/25 History gabapentin 800 mg tablet 800 mg PO TID 03/20/25 06/02/25 History hydrocodone 10 mg-acetaminophen 1 tab PO QID 10/325MG 03/20/25 06/02/25 History 325 mg tablet bumetanide 1 mg tablet 1 mg PO DAILY #30 tabs 03/21/25 06/02/25 Rx carvedilol 25 mg tablet 25 mg PO BID 30 days #60 tabs 03/21/25 06/02/25 Rx cholecalciferol (vitamin D3) 1,250 50,000 unit PO WEEKLY 03/24/25 06/02/25 History mcg (50,000 unit) capsule sennosides 8.6 mg-docusate sodium 1 tab PO BID PRN Constipation 10 04/16/25 06/02/25 Rx 50 mg tablet (Stimulant Laxative days #20 tabs Plus) nicotine 7 mg/24 hr daily 1 patch transdermal Q24H #28 ea 05/11/25 06/02/25 Rx transdermal patch albuterol sulfate 90 mcg/actuation 1 inh inhalation Q6H 5 days #6.7 06/02/25 Rx aerosol inhaler (Ventolin HFA) grams azithromycin 500 mg tablet 500 mg PO DAILY 5 days #5 tabs 06/02/25 Rx cefdinir 300 mg capsule 300 mg PO BID 5 days #10 caps 06/02/25 Rx magnesium gluconate 27 mg 27 mg PO DAILY 06/02/25 06/02/25 History magnesium (500 mg) tablet prednisone 50 mg tablet 50 mg PO DAILY 5 days #5 tabs 06/02/25 Rx azithromycin 250 mg tablet 250 mg PO MOWEFR 06/03/25 06/03/25 History digoxin 125 mcg (0.125 mg) tablet 125 mcg PO DAILY 06/03/25 06/03/25 History New Prescriptions to Start Prescriptions: albuterol sulfate [Ventolin HFA] Russell,Benjamin Servin azithromycin Russell,Benjamin Servin cefdinir Russell,Benjamin Servin prednisone Russell,Benjamin Servin Allergies Allergy/AdvReac Type Severity Reaction Status Date / Time No Known Allergies Allergy Verified 05/19/25 09:56 Results Laboratory Findings 06/03/25 06:00 06/03/25 06:00 PT/INR, D-dimer PT 11.0 seconds (10.1-12.5) 06/02/25 14:41 INR 0.99 (0.9-1.1) 06/02/25 14:41 Abnormal lab findings: Abnormal Labs 06/02/25 06/02/25 06/02/25 14:41 14:49 22:20 WBC 13.2 H RBC 3.55 L Hgb 10.2 L Hct 32.6 L MCHC 31.3 L Neut % (Auto) 82.6 H Lymph % (Auto) 9.8 L Neut # (Auto) 10.9 H VBG pCO2 63.9 H VBG pO2 66.4 H VBG HCO3 36.9 H VBG Total CO2 38.8 H VBG O2 Saturation 92.1 H VBG Base Excess 11.7 H Sodium 135 L Potassium Chloride 90 L Carbon Dioxide 38 H Creatinine Estimated GFR Glucose 157 H Calcium 10.6 H Total Creatine Kinase 21 L NT-Pro-B Natriuret Pep 596 H Ur Leukocyte Esterase 1+ A 06/03/25 06:00 WBC 12.9 H RBC 3.02 L Hgb 8.6 L D Hct 28.1 L MCHC 30.6 L Neut % (Auto) Lymph % (Auto) Neut # (Auto) 10.0 H VBG pCO2 VBG pO2 VBG HCO3 VBG Total CO2 VBG O2 Saturation VBG Base Excess Sodium 135 L Potassium 3.4 L Chloride 90 L Carbon Dioxide 39 H Creatinine 1.10 H D Estimated GFR 49 L Glucose 105 H D Calcium Total Creatine Kinase NT-Pro-B Natriuret Pep Ur Leukocyte Esterase Assessment and Plan *Assessment and plan (1) Acute exacerbation of chronic obstructive pulmonary disease: Status: Acute Category: Medical Code(s): J44.1 - Chronic obstructive pulmonary disease with (acute) exacerbation Plan Ms. Balbuena is a 70-year-old female current smoker greater than [id number] smoking history COPD, chronic hypoxic respiratory failure on 2 to 3 L nasal on supplementation at baseline prior admissions for hypercarbic respiratory failure presented to the ER with worsening respiratory distress and pulmonary was called for further evaluation and management. Supposed to be using NIV from her recent hospital admission. Afebrile. Hemodynamically stable. Mild neutrophilic predominant leukocytosis. Comprehensive respiratory viral PCR panel negative. Lab abnormality significant for JOSÉ MIGUEL and hypokalemia Blood gas upon admission chronic hypercarbic respiratory failure with pH of 7.[address] chest upon admission no dense consolidative/airspace changes. No pleural effusions. Emphysematous changes again noted along with previously noted lung nodules remained relatively stable with no new nodules/new/worsening lymphedema CPAP compliance report reviewed, 77% compliance and greater than 4 hours. On examination no respiratory distress. No significant wheezing noted on auscultation. Plan: Continue oxygen supplementation to maintain O2 saturation goal of 90% and above. Continue Trelegy 100 inhaler along with DuoNebs 4 times daily as needed Wean antibiotics to doxycycline to complete a total of 3-day course Prednisone 40 mg daily x 5 days Continue home BiPAP therapy at 6-16. Follow in pulmonary clinic as previously scheduled for the biopsy of the concerning right upper lobe lung nodule
--- NOTE | 2025-06-03 09:44 | HMH.PHAAMS2 ---
- Antimicrobial Stewardship Review culture & sensitivity review Stewardship interventions: culture & sensitivity review, reviewed - no change Comments: culture still pending, empiric treatment with levaquin
[2025-06-03] MEDS: CARVEDILOL 25MG TABLET 25 MG PO (10:18)
[2025-06-03] MEDS: BUMETANIDE 1 MG TABLET PO (10:19)
[2025-06-03] MEDS: DIGOXIN 0.125MG TABLET 125 MCG PO (10:19)
[2025-06-03] MEDS: IRBESARTAN 150MG TAB 150 MG PO (10:19)
[2025-06-03] MEDS: APIXABAN 5MG TABLET 5 MG PO (10:19)
--- NOTE | 2025-06-03 13:29 | HMH.PTEV ---
Physical Therapy Evaluation Rehab PT IP Evaluation Start: 06/03/25 10:45 Freq: ONCE Status: Active Protocol: Document 06/03/25 13:24 HIRO (Rec: 06/03/25 13:29 PH[place] [id number]) Subjective/History History History 70-year-old female who is well-known to our service and has a past medical history significant for atrial fibrillation currently prescribed Eliquis for management, coronary artery disease, claudication, acute on chronic respiratory failure with hypercarbia home O2 dependent at 3 L/BiPAP at night, hyperlipidemia , hypertension, lymphedema, lung mass, COPD, and cervical cancer who presents with a chief complaint of shortness of air, chest pain, and fatigue. Due to patient's symptoms, she presented to the emergency room for evaluation. While in the emergency room, CTA of the chest revealed likely significant change in the previously described spiculated density in the posterior medial right upper lobe findings are consistent with malignancy, small to moderate stable hiatal hernia, right precarinal lymph node, pulmonary artery enlargement consistent with pulmonary artery hypertension, moderate emphysema, severe arthrosclerotic vascular disease, 2 subcentimeter renal hypodensities which are not optimally characterized, severe nonspecific bilateral perinephritic fat stranding, and hepatic contour suggestive of cirrhosis. Patient was triaged to the emergency room and was set to discharge home with patient refused; as result, hospital medicine was consulted for further management. Subjective Subjective Pt reports she lives with her son and daughter, 3 [address] the home, and she is generally independent with all mobility using a cane. She is oxygen dependent and uses 2 L/min via NC at all times at baseline. [facility] How much help from another person do you currently need... Turning from your None back to your side while in a flat bed without using bedrails? Moving from lying on None back to sitting on the side of a flat bed without using bedrails? Moving to and from a A little bed to a chair ( including a wheelchair)? Standing up from a A little chair using your arms? (e.g., wheelchair, bedside chair) Walking in hospital A little room? Climbing 3-5 steps A little with a railing? Mobility Score 20 Mobility Level [facility] Mobility 6 Walk 10 steps or more Mobility Calculator Rehab PT IP Eval Objective Appearance Patient Behavior Appropriate Patient Orientation Person,Place,Time Difficulty following none instructions Speech Pattern Clear Balance Ability to Arise Able, uses arms to help Sitting Balance Steady, safe Standing Balance Steady, wide stance Dynamic Sitting Fair Balance Ability Dynamic Standing Fair Balance Ability Transfers Bed Transfer Ability Supervision/Stand by Chair Transfer Contact Guard/Hand Hold Ability Sit to Stand Bed Contact Guard/Hand Hold Transfer Ability Sit to Stand Chair Contact Guard/Hand Hold Transfer Ability Rehab PT IP prob,goals,plan Problems Date of Evaluation: 06/03/25 PT IP Problems Bed Mobility,Transfers,Gait,Balance Rehab Potential Rehab Potential Good Plan PT Intervention Plan Bed Mobility,Transfers,Gait,Balance,Self care, Therapeutic Exercise PT Plan Frequency Daily Duration LOS Discharge Goals Bed Transfer Ability Independent Sit to Stand Chair Supervision/Stand by Transfer Ability Ambulation Assistive Rolling Walker Device Ambulation Distance 25 (feet) Discharge Plan PT Discharge Plan Pt is currently appropriate to return home once medically stable for d/c. Recommend home health therapy services as able after return home. Skilled therapy services are indicated to improve transfers, ambulation , and general safe mobility in order to return pt to [facility]. Eval Complexity Eval Charge Codes 27732 - High Complexity PHYSICIAN CERTIFICATION: I certify the specified therapy services for Iqra Balbuena are required, authorized, and reviewed every 30 days.
--- NOTE | 2025-06-03 13:34 | P.DS_ITS ---
<Statement entered by Sulaiman Butt MD - 06/07/25 11:07> Agree with plan of care as outlined by the [employer]. General Admission date:: 06/02/25 Discharge date: 06/10/25 HPI HPI HPI: This is a 70-year-old female who is well-known to our service and has a past medical history significant for atrial fibrillation currently prescribed Eliquis for management, coronary artery disease, claudication, acute on chronic respiratory failure with hypercarbia home O2 dependent at 3 L/BiPAP at night, hyperlipidemia, hypertension, lymphedema, lung mass, COPD, and cervical cancer who presents with a chief complaint of shortness of air, chest pain, and fatigue. Due to patient's symptoms, she presented to the emergency room for evaluation. While in the emergency room, CTA of the chest revealed likely significant change in the previously described spiculated density in the posterior medial right upper lobe findings are consistent with malignancy, small to moderate stable hiatal hernia, right precarinal lymph node, pulmonary artery enlargement consistent with pulmonary artery hypertension, moderate emphysema, severe arthrosclerotic vascular disease, 2 subcentimeter renal hypodensities which are not optimally characterized, severe nonspecific bilateral perinephritic fat stranding, and hepatic contour suggestive of cirrhosis. Patient was triaged to the emergency room and was set to discharge home with patient refused; as result, hospital medicine was consulted for further management. During my evaluation of the patient, she states she has been having midsternal chest pain without any radiation, shortness of air, and fatigue over the last 7 days. Patient is not endorsing any productive cough. Patient was informed of the findings on the CT scan and she was aware. On last admission in April, pulmonology discussed the findings with patient and informed patient she will need biopsy. Patient has just to follow-up with pulmonology. She is currently denying any lightheadedness, dizziness, fever, chills, rigors, nausea, vomiting, PND, orthopnea, or diarrhea. EKG revealed a sinus tachycardia, QTc of 371, normal axis, negative STEMI. Additional pertinent labs obtained include a white blood cell count of 13.2, red blood cell count of 3.55, hemoglobin of 10.2, hematocrit of 32.6, neutrophils 82.6%, blood gas revealed a pH of 7.38, pCO2 63.9, HCO3 38.8, sodium of 135, chloride of 90, carbon oxide of 38, blood glucose 157, calcium of 10.6, and BNP of 596. Hospital Course Hospital Course Hospital Course: Ms. Balbuena is a 70-year-old female who presented to the emergency department yesterday with complaints of shortness of breath, fatigue, chest pain. CTA of chest revealed spiculated density in the posterior medial right upper lobe findings consistent with malignancy, small to moderate stable hiatal hernia, right precarinal lymph node, pulmonary artery enlargement consistent with pulmonary artery hypertension, moderate emphysema, severe atherosclerotic vascular disease, 2 subcentimeter renal hypodensities which are not optimally characterized, severe not by specific bilateral flores-infarct fat stranding, and hepatic contour suggestive of cirrhosis. Patient has previous knowledge of right lobe mass and is following with pulmonology, plans for bronchoscopy beginning of June. Patient was found to be on her baseline 3 L O2 satting above 90%, no significant distress on exam, troponin negative. Due to these findings patient was set to be discharged home from the emergency department. Ultimately patient refused to be discharged and patient was admitted to hospital medicine for further management. Patient recently had a ischemic workup as an outpatient setting, showing EF of 56% at the time. Patient has known COPD and acute on chronic hypoxic hypercapnic respiratory failure, she has a BiPAP (SETTINGS 6-16) at home as well as uses a trilogy inhaler and DuoNebs every 6 hours. Patient follows closely with pulmonology but continues to smoke. Patient started on prednisone 40 mg daily and azithromycin 500 mg x 3 days. Patient is in end-stage COPD. Patient has known atrial fibrillation and takes Eliquis 5 mg twice daily. Continue cardiac medications at discharge. Patient found to have urinary tract infection, urine with leuk esterase and bacteria. Patient given ceftriaxone IV during admission, discharged home with cefdinir 300 mg twice daily x 5 days. Culture pending. Patient encouraged to maintain compliance with medical therapy and medication. PT/OT evaluated and recommended home health which patient declined. Patient will be discharged home with son. Continue home medications as prescribed. Total time spent on discharge 32 minutes in counseling, documentation, chart review, and direct care with patient. Exam Data for Last 24 hours Vital signs and Labs for Last 24 Hours: Temp Pulse Resp BP Pulse Ox O2 Del Method O2 Flow Rate 98.1 F 71 14 135/52 L 94 L BiPAP 35 11/20/25 12:00 06/03/25 12:00 06/03/25 12:00 06/03/25 12:00 06/03/25 12:00 06/03/25 12:00 06/03/25 12:00 FiO2 35 06/03/25 11:15 Laboratory Results - last 24 hr 06/02/25 14:37: Chlamy pneumoniae PCR Not detected, Adenovirus (PCR) Not detected, B. pertussis DNA (PCR) Not detected, Coronavirus OC43 (PCR) Not detected, Coronavirus HKU1 (PCR) Not detected, Coronavirus 229E (PCR) Not detected, SARS-CoV-2 (PCR) Not detected, Coronavirus NL63 (PCR) Not detected, Human Metapneumovir PCR Not detected, Influenza A (H1) PCR Not detected, Influ A (H1N1/09) PCR Not detected, Influenza A (H3) PCR Not detected, Influenza Type A (PCR) Not detected, Influenza Type B (PCR) Not detected, M. pneumoniae (PCR) Not detected, Parainfluenza 1 (PCR) Not detected, Parainfluenza 2 (PCR) Not detected, Parainfluenza 3 (PCR) Not detected, Parainfluenza 4 (PCR) Not detected, RSV (PCR) Not detected, Entero/Rhino (PCR) Not detected 06/02/25 14:41: WBC 13.2 H, RBC 3.55 L, Hgb 10.2 L, Hct 32.6 L, MCV 91.8, MCH 28.7, MCHC 31.3 L, RDW 14.2, Plt Count 243, MPV 9.2, Neut % (Auto) 82.6 H, Lymph % (Auto) 9.8 L, [place] % (Auto) 6.2, Eos % (Auto) 0.6, Baso % (Auto) 0.3, Neut # (Auto) 10.9 H, Lymph # (Auto) 1.3, [place] # (Auto) 0.8, Eos # (Auto) 0.1, Baso # (Auto) 0.0, PT 11.0, INR 0.99, APTT 27.2, Sodium 135 L, Potassium 3.5, Chloride 90 L, Carbon Dioxide 38 H, Anion Gap 10.5, BUN 16, Creatinine 0.80, Estimated Creat Clear 51, Estimated GFR 71, Est GFR ( Amer) 86, Glucose 157 H, Calcium 10.6 H, Total Bilirubin 0.4, AST 27, ALT 13, Alkaline Phosphatase 67, Total Creatine Kinase 21 L, Troponin I < 0.01, NT-Pro-B Natriuret Pep 596 H, Total Protein 6.9, Albumin 4.1, Globulin 2.8, Albumin/Globulin Ratio 1.5, Lipase 29, Procalcitonin 0.080 06/02/25 14:49: VBG pH 7.38, VBG pCO2 63.9 H, VBG pO2 66.4 H, VBG HCO3 36.9 H, VBG Total CO2 38.8 H, VBG O2 Saturation 92.1 H, VBG Base Excess 11.7 H, VBG Lactic Acid 2.0 06/02/25 17:38: Lactate 1.3, Troponin I 0.01 06/02/25 21:06: Troponin I < 0.01 06/02/25 22:20: Urine Color Yellow, Urine Appearance Clear, Urine pH 6.0, Ur Specific Humble 1.010, Urine Protein Negative, Urine Glucose (UA) Negative, Urine Ketones Negative, Urine Blood Negative, Urine Nitrate Negative, Urine Bilirubin Negative, Urine Urobilinogen 0.2, Ur Leukocyte Esterase 1+ A, Urine RBC None, Urine WBC 5-10, Ur Squamous Epith Cells None, Urine Bacteria 1+ 06/03/25 06:00: WBC 12.9 H, RBC 3.02 L, Hgb 8.6 L D, Hct 28.1 L, MCV 93.0, MCH 28.5, MCHC 30.6 L, RDW 14.3, Plt Count 231, MPV 9.5, Neut % (Auto) 77.4, Lymph % (Auto) 14.0, [place] % (Auto) 6.9, Eos % (Auto) 0.9, Baso % (Auto) 0.3, Neut # (Auto) 10.0 H, Lymph # (Auto) 1.8, [place] # (Auto) 0.9, Eos # (Auto) 0.1, Baso # (Auto) 0.0, Sodium 135 L, Potassium 3.4 L, Chloride 90 L, Carbon Dioxide 39 H, Anion Gap 9.4, BUN 16, Creatinine 1.10 H D, Estimated Creat Clear 44, Estimated GFR 49 L, Est GFR ( Amer) 59 D, Glucose 105 H D, Calcium 9.8, Digoxin 1.00 I & O for Last 24 hours: Intake & Output 05/31/25 06/01/25 06/02/25 06/03/25 23:59 23:59 23:59 23:59 Intake Total 50 / 50 480 / 480 Output Total 100 / 350 700 / 700 Balance -50 / -300 -220 / -220 Weight 58.967 kg 58.967 kg Constitutional Constitutional: no acute distress, thin, chronically ill appearing and cooperative *Routine HEENT Exam Head: Present normocephalic Eye: Present EOMI and PERRL ENT: Present mucous membranes moist *Routine Neck Exam Neck: Present supple; Absent lymphadenopathy *Routine Respiratory Exam Respiratory: Present prolonged expiratory phase, wheezes and normal respiratory effort; Absent rhonchi or crackles *Routine Cardiovascular Exam Cardiovascular: Present RRR *Routine Abdominal Exam Abdominal: Present soft and normoactive bowel sounds; Absent tenderness *Routine Rectal Exam Patient deferred: visual exam *Routine Exam Patient deferred: external exam *Routine Extremities Exam Extremities: Absent cyanosis, clubbing or edema *Routine Skin Exam Skin: Present intact and warm; Absent rash *Routine Neurological Exam Neurological: Present alert, oriented X3 and moving all extremities; Absent altered mental status Results Data Completed and Pending Labs on day of discharge: Labs from last 24 hours 06/03/25 06/02/25 06/02/25 06:00 22:20 21:06 WBC 12.9 H RBC 3.02 L Hgb 8.6 L D Hct 28.1 L MCV 93.0 MCH 28.5 MCHC 30.6 L RDW 14.3 Plt Count 231 MPV 9.5 Neut % (Auto) 77.4 Lymph % (Auto) 14.0 Hickory % (Auto) 6.9 Eos % (Auto) 0.9 Baso % (Auto) 0.3 Neut # (Auto) 10.0 H Lymph # (Auto) 1.8 [place] # (Auto) 0.9 Eos # (Auto) 0.1 Baso # (Auto) 0.0 PT INR APTT VBG pH VBG pCO2 VBG pO2 VBG HCO3 VBG Total CO2 VBG O2 Saturation VBG Base Excess VBG Lactic Acid Sodium 135 L Potassium 3.4 L Chloride 90 L Carbon Dioxide 39 H Anion Gap 9.4 BUN 16 Creatinine 1.10 H D Estimated Creat Clear 44 Estimated GFR 49 L Est GFR ( Amer) 59 D Glucose 105 H D Lactate Calcium 9.8 Total Bilirubin AST ALT Alkaline Phosphatase Total Creatine Kinase Troponin I < 0.01 NT-Pro-B Natriuret Pep Total Protein Albumin Globulin Albumin/Globulin Ratio Lipase Procalcitonin Urine Color Yellow Urine Appearance Clear Urine pH 6.0 Ur Specific Humble 1.010 Urine Protein Negative Urine Glucose (UA) Negative Urine Ketones Negative Urine Blood Negative Urine Nitrate Negative Urine Bilirubin Negative Urine Urobilinogen 0.2 Ur Leukocyte Esterase 1+ A Urine RBC None Urine WBC 5-10 Ur Squamous Epith Cells None Urine Bacteria 1+ Digoxin 1.00 Chlamy pneumoniae PCR Adenovirus (PCR) B. pertussis DNA (PCR) Coronavirus OC43 (PCR) Coronavirus HKU1 (PCR) Coronavirus 229E (PCR) SARS-CoV-2 (PCR) Coronavirus NL63 (PCR) Human Metapneumovir PCR Influenza A (H1) PCR Influ A (H1N1/09) PCR Influenza A (H3) PCR Influenza Type A (PCR) Influenza Type B (PCR) M. pneumoniae (PCR) Parainfluenza 1 (PCR) Parainfluenza 2 (PCR) Parainfluenza 3 (PCR) Parainfluenza 4 (PCR) RSV (PCR) Entero/Rhino (PCR) 06/02/25 06/02/25 06/02/25 17:38 14:49 14:41 WBC 13.2 H RBC 3.55 L Hgb 10.2 L Hct 32.6 L MCV 91.8 MCH 28.7 MCHC 31.3 L RDW 14.2 Plt Count 243 MPV 9.2 Neut % (Auto) 82.6 H Lymph % (Auto) 9.8 L [place] % (Auto) 6.2 Eos % (Auto) 0.6 Baso % (Auto) 0.3 Neut # (Auto) 10.9 H Lymph # (Auto) 1.3 [place] # (Auto) 0.8 Eos # (Auto) 0.1 Baso # (Auto) 0.0 PT 11.0 INR 0.99 APTT 27.2 VBG pH 7.38 VBG pCO2 63.9 H VBG pO2 66.4 H VBG HCO3 36.9 H VBG Total CO2 38.8 H VBG O2 Saturation 92.1 H VBG Base Excess 11.7 H VBG Lactic Acid 2.0 Sodium 135 L Potassium 3.5 Chloride 90 L Carbon Dioxide 38 H Anion Gap 10.5 BUN 16 Creatinine 0.80 Estimated Creat Clear 51 Estimated GFR 71 Est GFR ( Amer) 86 Glucose 157 H Lactate 1.3 Calcium 10.6 H Total Bilirubin 0.4 AST 27 ALT 13 Alkaline Phosphatase 67 Total Creatine Kinase 21 L Troponin I 0.01 < 0.01 NT-Pro-B Natriuret Pep 596 H Total Protein 6.9 Albumin 4.1 Globulin 2.8 Albumin/Globulin Ratio 1.5 Lipase 29 Procalcitonin 0.080 Urine Color Urine Appearance Urine pH Ur Specific Humble Urine Protein Urine Glucose (UA) Urine Ketones Urine Blood Urine Nitrate Urine Bilirubin Urine Urobilinogen Ur Leukocyte Esterase Urine RBC Urine WBC Ur Squamous Epith Cells Urine Bacteria Digoxin Chlamy pneumoniae PCR Adenovirus (PCR) B. pertussis DNA (PCR) Coronavirus OC43 (PCR) Coronavirus HKU1 (PCR) Coronavirus 229E (PCR) SARS-CoV-2 (PCR) Coronavirus NL63 (PCR) Human Metapneumovir PCR Influenza A (H1) PCR Influ A (H1N1/09) PCR Influenza A (H3) PCR Influenza Type A (PCR) Influenza Type B (PCR) M. pneumoniae (PCR) Parainfluenza 1 (PCR) Parainfluenza 2 (PCR) Parainfluenza 3 (PCR) Parainfluenza 4 (PCR) RSV (PCR) Entero/Rhino (PCR) 06/02/25 14:37 WBC RBC Hgb Hct MCV MCH MCHC RDW Plt Count MPV Neut % (Auto) Lymph % (Auto) [place] % (Auto) Eos % (Auto) Baso % (Auto) Neut # (Auto) Lymph # (Auto) [place] # (Auto) Eos # (Auto) Baso # (Auto) PT INR APTT VBG pH VBG pCO2 VBG pO2 VBG HCO3 VBG Total CO2 VBG O2 Saturation VBG Base Excess VBG Lactic Acid Sodium Potassium Chloride Carbon Dioxide Anion Gap BUN Creatinine Estimated Creat Clear Estimated GFR Est GFR ( Amer) Glucose Lactate Calcium Total Bilirubin AST ALT Alkaline Phosphatase Total Creatine Kinase Troponin I NT-Pro-B Natriuret Pep Total Protein Albumin Globulin Albumin/Globulin Ratio Lipase Procalcitonin Urine Color Urine Appearance Urine pH Ur Specific Humble Urine Protein Urine Glucose (UA) Urine Ketones Urine Blood Urine Nitrate Urine Bilirubin Urine Urobilinogen Ur Leukocyte Esterase Urine RBC Urine WBC Ur Squamous Epith Cells Urine Bacteria Digoxin Chlamy pneumoniae PCR Not detected Adenovirus (PCR) Not detected B. pertussis DNA (PCR) Not detected Coronavirus OC43 (PCR) Not detected Coronavirus HKU1 (PCR) Not detected Coronavirus 229E (PCR) Not detected SARS-CoV-2 (PCR) Not detected Coronavirus NL63 (PCR) Not detected Human Metapneumovir PCR Not detected Influenza A (H1) PCR Not detected Influ A (H1N1/09) PCR Not detected Influenza A (H3) PCR Not detected Influenza Type A (PCR) Not detected Influenza Type B (PCR) Not detected M. pneumoniae (PCR) Not detected Parainfluenza 1 (PCR) Not detected Parainfluenza 2 (PCR) Not detected Parainfluenza 3 (PCR) Not detected Parainfluenza 4 (PCR) Not detected RSV (PCR) Not detected Entero/Rhino (PCR) Not detected DS: Diagnosis Discharge Diagnosis (1) Acute exacerbation of chronic obstructive pulmonary disease: Status: Acute Code(s): J44.1 - Chronic obstructive pulmonary disease with (acute) exacerbation (2) Urinary tract infection: Status: Acute Code(s): N39.0 - Urinary tract infection, site not specified (3) Acute on chronic heart failure with preserved ejection fraction (HFpEF): Status: Acute Code(s): I50.33 - Acute on chronic diastolic (congestive) heart failure (4) HLD (hyperlipidemia): Status: Acute Code(s): E78.5 - Hyperlipidemia, unspecified Qualifiers: Hyperlipidemia type: other hyperlipidemia Qualified Code(s): E78.49 - Other hyperlipidemia (5) HTN (hypertension): Status: Acute Code(s): I10 - Essential (primary) hypertension Qualifiers: Hypertension type: primary hypertension Qualified Code(s): I10 - Essential (primary) hypertension (6) Tobacco dependence: Status: Acute Code(s): F17.200 - Nicotine dependence, unspecified, uncomplicated (7) Acute and chronic respiratory failure with hypercapnia: Status: Acute Code(s): J96.22 - Acute and chronic respiratory failure with hypercapnia (8) Paroxysmal atrial fibrillation: Status: Acute Code(s): I48.0 - Paroxysmal atrial fibrillation Meds Home Medications and Allergies Home Medications ?Medication ?Instructions ?Recorded ?Confirmed ?Type montelukast 10 mg tablet 10 mg PO HS 04/15/24 5 History apixaban 5 mg tablet (Eliquis) 5 mg PO BID 01/28/25 History losartan 100 mg tablet 100 mg PO DAILY 01/28/25 History alprazolam 1 mg tablet 1 mg PO BID 03/01/25 5 History gabapentin 800 mg tablet 800 mg PO TID 03/20/2506/02 History hydrocodone 10 mg-acetaminophen 1 tab PO QID 10/325MG 03/20/25 06/02/25 History 325 mg tablet bumetanide 1 mg tablet 1 mg PO DAILY #30 tabs 03/2106/02/25 Rx carvedilol 25 mg tablet 25 mg PO BID 30 days #60 tab s 03/21/25 06/02/25 Rx cholecalciferol (vitamin D3) 1,250 50,000 unit PO WEEK LY 03/24/25 06/02/25 History mcg (50,000 unit) capsule sennosides 8.6 mg-docusate sodium 1 tab PO BID PRN Con stipation 10 04/16/25 06/02/25 Rx 50 mg tablet (Stimulant Laxative days #20 tabs Plus) nicotine 7 mg/24 hr daily 1 patch transdermal Q24H #28 ea 05/11/25 06/02/25 Rx transdermal patch albuterol sulfate 90 mcg/actuation 1 inh inhalation Q6 H 5 days #6.7 06/02/25 Rx aerosol inhaler (Ventolin HFA) grams azithromycin 500 mg tablet 500 mg PO DAILY 5 days #5 t abs 06/02/25 Rx cefdinir 300 mg capsule 300 mg PO BID 5 days #10 cap s 06/02/25 Rx magnesium gluconate 27 mg 27 mg PO DAILY 06/02/2505/15 History magnesium (500 mg) tablet prednisone 50 mg tablet 50 mg PO DAILY 5 days #5 tab s 06/02/25 Rx azithromycin 250 mg tablet 250 mg PO MOWEFR 06/03/25 1 08/03/24 History digoxin 125 mcg (0.125 mg) tablet 125 mcg PO DAILY 06/03/25 History New Prescriptions to Start Prescriptions: albuterol sulfate [Ventolin HFA] Benjamin Wells azithromycin Russell,Benjamin Servin cefdinir Benjamin Wells prednisone Russell,Benjamin eSrvin Allergies Allergy/AdvReac Type Severity Reaction Status Date / Time No Known Allergies Allergy Verified 05/19/25 09:56 Discharge Plan Disposition Patient Disposition: Home, Self-Care Condition: Good Follow up Plan Follow up with: Stephanie Espinoza APRN [Primary Care Provider, Medical] - Enter time for follow up Srini Gan MD [Physician, Pulmonology] - Enter time for follow up Prescriptions/Medication Reconciliation: New cefdinir 300 mg capsule 300 mg PO BID 5 Days Qty: 10 0RF prednisone 50 mg tablet 50 mg PO DAILY 5 Days Qty: 5 0RF albuterol sulfate [Ventolin HFA] 90 mcg/actuation HFA aerosol inhaler 1 inh inhalation Q6H 5 Days Qty: 6.7 0RF azithromycin 500 mg tablet 500 mg PO DAILY 5 Days Qty: 5 0RF Continued cholecalciferol (vitamin D3) 1,250 mcg (50,000 unit) capsule 50,000 unit PO WEEKLY Patient Comments: TAKE 1 CAPSULE BY MOUTH ONCE WEEKLY nicotine 7 mg/24 hr patch 24 hour 1 patch transdermal Q24H Qty: 28 1RF alprazolam 1 mg tablet 1 mg PO BID hydrocodone-acetaminophen 10-325 mg tablet 1 tab PO QID Patient Comments: TAKE 1 TABLET BY MOUTH EVERY 6 HOURS gabapentin 800 mg tablet 800 mg PO TID Patient Comments: TAKE 1 TABLET BY MOUTH 3 TIMES A DAY carvedilol 25 mg Tablet 25 mg PO BID 30 Days Qty: 60 0RF bumetanide 1 mg tablet 1 mg PO DAILY Qty: 30 0RF sennosides-docusate sodium [Stimulant Laxative Plus] 8.6-50 mg Tablet 1 tab PO BID PRN (Reason: Constipation) 10 Days Qty: 20 0RF montelukast 10 mg tablet 10 mg PO HS losartan 100 mg tablet 100 mg PO DAILY Patient Comments: TAKE 1 TABLET BY MOUTH ONCE A DAY Eliquis 5 mg Tablet 5 mg PO BID magnesium gluconate 27 mg magnesium (500 mg) tablet 27 mg PO DAILY azithromycin 250 mg tablet 250 mg PO MOFR digoxin 125 mcg (0.125 mg) tablet 125 mcg PO DAILY Problem Reconciliation Problems Reviewed?: Yes Patient Discharge Instructions ACTIVITY: Continue current activity and Ambulate as tolerated DIET: continue same diet Patient Instructions: Stop Light COPD Print Language: Hebrew Providers Primary Care Provider: Stephanie Espinoza Provider: Sulaiman Butt Attending Provider: Sulaiman Butt
--- NOTE | 2025-06-03 13:43 | [facility].OTEV ---
OT Evaluation Rehab OT IP Evaluation Start: 06/03/25 10:45 Freq: ONCE Status: Active Protocol: Document 06/03/25 13:38 [id number] (Rec: 06/03/25 13:43 [facility] [id number]) Rehab OT IP Assessment Subjective History Pt oriented x 2 on arrival. Pt agreeable to engage in therapy evaluation. Pt admitted on 05/23/25 due to chest pain and COPD exacerbation. History and physical: 70-year-old female who is well-known to our service and has a past medical history significant for atrial fibrillation currently prescribed Eliquis for management, coronary artery disease, claudication, acute on chronic respiratory failure with hypercarbia home O2 dependent at 3 L/BiPAP at night, hyperlipidemia , hypertension, lymphedema, lung mass, COPD, and cervical cancer who presents with a chief complaint of shortness of air, chest pain, and fatigue. Due to patient's symptoms, she presented to the emergency room for evaluation. While in the emergency room, CTA of the chest revealed likely significant change in the previously described spiculated density in the posterior medial right upper lobe findings are consistent with malignancy, small to moderate stable hiatal hernia, right precarinal lymph node, pulmonary artery enlargement consistent with pulmonary artery hypertension, moderate emphysema, severe arthrosclerotic vascular disease, 2 subcentimeter renal hypodensities which are not optimally characterized, severe nonspecific bilateral perinephritic fat stranding, and hepatic contour suggestive of cirrhosis. Patient was triaged to the emergency room and was set to discharge home with patient refused; as result, hospital medicine was consulted for further management. Subjective Pt reports she lives with her son and daughter, 3 [address]IG[address] the home, and she is generally independent with all functional transfers using a cane. Pt also claims she is independent with all ADLS such as bathing, feeding, and dressing. She is able to complete light IADLS, but family completes all heavy IADLs (vacuuming, mopping, etc). She is oxygen dependent and uses 2 L/min via NC at all times at baseline. Objective Patient Orientation Person,Birthday Right Upper WFL Extremity Gross ROM Left Upper Extremity WFL Gross ROM Bed Mobility bed mobility-scooting,bed mobility - supine/sit Assist Level Supervision/Stand by Transfer Training Sit/Stand Transfer Assist Level Contact Guard/Hand Hold Rehab OT IP prob,goals,plan Problems Date of Evaluation: 06/03/25 OT IP Problems Bed Mobility,Transfers,Balance,Self care,Safety Rehab Potential Rehab Potential Good Equipment Needs Assistive Devices Rolling / Wheeled Walker Plan OT intervention Plan Bed Mobility,Transfers,Balance,Self care,Safety, Therapeutic Exercise OT Plan Frequency Daily Duration LOS Discharge Goals Bed Mobility Ability Standby Assistance Sit to Stand Chair Supervision/Stand by Transfer Ability Chair Transfer Supervision/Stand by Ability Chair Transfer Sit to/from Ambulatory Technique Chair Transfer Rolling Walker Assistive Devices Lower Body Dressing Minimal Assistance Ability Upper Body Dressing Standby Assistance Ability Performing Toilet Standby Assistance Hygiene Ability Overall Commode/ Standby Assistance Toilet Transfer Ability Commode/Toilet Sit to/from Ambulatory Transfer Technique Discharge Plan OT Discharge Plan Pt will continue to be seen for OT services while at [facility]. Pt appears to be close to her baseline with functional transfers and ADL independence. Pt can return home with family assistance as needed. Therapist does recommend HH OT evaluation upon returning home for continued skilled therapy services. Continued skilled therapy is important in order for patient to improve strength, safety, endurance, ADL independence, and functional transfers to reach PLOF. Eval Complexity Eval Charge Codes 00180 - Moderate Complexity PHYSICIAN CERTIFICATION: I certify the specified therapy services for Iqra Balbuena are required, authorized, and reviewed every 30 days.
--- NOTE | 2025-06-07 11:34 | SW/DCPLANNER ---
Phoned patient x2. Left message with name and a call back number each time. Leonel Thomas
== END 2025-06-03 16:15 | disposition home or self-care (01) ==
LOC: ER 19:44 → 2ND 19:57
PROVIDERS: Nurse Practitioner Family; Physician Assistant; Admitting Provider Student in an Organized Health Care Education/Training Program; Emergency Provider Student in an Organized Health Care Education/Training Program; PCP Nurse Practitioner; Visit Provider Student in an Organized Health Care Education/Training Program
DX: J44.1 Chronic obstructive pulmonary disease with (acute) exacerbation (principal); R07.9 Chest pain, unspecified; N39.0 Urinary tract infection, site not specified; I50.33 Acute on chronic diastolic (congestive) heart failure; E78.49 Other hyperlipidemia; J96.22 Acute and chronic respiratory failure with hypercapnia; I48.0 Paroxysmal atrial fibrillation; I11.0 Hypertensive heart disease with heart failure; E78.5 Hyperlipidemia, unspecified; Z56.0 Unemployment, unspecified; F17.210 Nicotine dependence, cigarettes, uncomplicated; Z79.01 Long term (current) use of anticoagulants; Z79.899 Other long term (current) drug therapy; K44.9 Diaphragmatic hernia without obstruction or gangrene; I28.8 Other diseases of pulmonary vessels; J43.9 Emphysema, unspecified; I25.10 Atherosclerotic heart disease of native coronary artery without angina pectoris; R00.0 Tachycardia, unspecified
CPT/HCPCS: 0223U; 36415; 71045; 71250; 80048; 80053; 80162; 81001; 82550; 82803; 83605; 83690; 83880; 84145; 84484; 85025; 85610; 85730; 87040; 87086; 93005; 94640; 94660; 97163; 97166; 99285; G0378; J0696; J2270; J2405

== ENCOUNTER 2025-06-13 23:13 | Observation (INO) | payer MEDICARE, SELFPAY ==
--- NOTE | 2025-06-13 23:16 | XR_ITS ---
PROCEDURE INFORMATION: Exam: XR Chest Exam date and time: 06/13/2025 11:57 PM Age: 70 years old Clinical indication: Shortness of breath; Additional info: Copd, SOA TECHNIQUE: Imaging protocol: Radiologic exam of the chest. Views: 1 view. COMPARISON: 1. CT CHEST WO CON 06/02/2025 5:22 PM 2. CR XR CHEST PORTABLE 06/02/2025 3:55 PM 3. CR XR CHEST PORTABLE 04/14/2025 4:[address] ANGIO CHEST PE PROTOCOL 04/14/2025 4:04 PM FINDINGS: Lungs: Emphysematous changes again noted. Faintly visible opacity in the right mid to upper lung field that corresponds to the posterior right upper lobe masslike opacity noted on prior CTs redemonstrated. Lungs are otherwise clear. Pleural spaces: Unremarkable. No pleural effusion. No pneumothorax. Heart/Mediastinum: Unremarkable. No cardiomegaly. Bones/joints: Unremarkable. IMPRESSION: 1. Stable chest with COPD changes. 2. Persistent opacity right mid to upper lung field compatible with the masslike opacity on CT which should be considered worrisome for possible developing neoplasm until proven otherwise. Further workup with CT PET study or biopsy may be indicated.
--- NOTE | 2025-06-13 23:17 | ECG_ITS ---
APPROVED REPORT Exam: Resting ECG HR:120 bpm ECG Measurements Heart Rate 120 AXES MS 156 P 61 QRSd 90 QRS -68 QT 308 T 74 QTc 379 Conclusion SINUS TACHYCARDIA WITH OCCASIONAL VENTRICULAR PREMATURE COMPLEXES LEFT AXIS DEVIATION [QRS AXIS < -30] SEPTAL MYOCARDIAL INFARCTION , OF INDETERMINATE AGE [40+ ms Q WAVE IN V1/V2] ABNORMAL ECG Electronically signed by : VIPUL ORTIZ, 06/15/2025 17:26:20
[2025-06-13 23:22] LABS: Hematocrit 34.4 % (37.0-47.0); Hemoglobin 10.6 g/dL (12.2-16.2); Immature Granulocytes % 2.0 %; Mean Corpuscular HGB Conc 30.8 g/dL (31.8-35.4); Mean Corpuscular Hemoglobin 29.0 pg (27.0-31.2); Mean Corpuscular Volume 94.0 fl (81-99); Nucleated Red Blood Cells % 0 %; Platelet Count 296 K/mm3 (142-424); Red Blood Count 3.66 M/mm3 (4.20-5.40); Red Cell Distribution Width-SD 48.1 fL; White Blood Count 14.3 K/mm3 (4.8-10.8)
--- OUTSIDE RECORDS SUMMARY | 2025-06-13 23:22 | XMS_ITS | Clinical Summary ---
Author Organization [facility] , [facility] Address [address] [place] [address] Phone Care Team Providers Care Receiving Weigher Name Role Phone Rafi PRESCOTT, Maribel Unavailable Unavailable ESTHER MIRANDA Unavailable [phone] Irineo ESPINOZA, Federico Lewis Unavailable [phone] Reason for Visit and Chief Complaint [Patient Encounter] Problems Includes: Problems addressed during this encounter and other active Problems All Visits Onset Date Resolved Date Provider Condition S tatus Lower Back Pain 01/30/2023 Ghulam Lewis ctive Last Documented On 3 1:01PM ; [facility], [facility] Midback Pain 01/30/2023 Ghulam Vila PA-C Acti ve Last Documented On 3 1:01PM ; [facility], [facility] Plan of Treatment No Plan [...] tablet every 8 hrs prn pain Pharmacy: [facility] - [address] [place] [address] Fidelina Velasquez, [phone] - Last Documented On 3 3:26PM By Federico Cabello ; [facility], [facility] Current Medications (continue as prescribed) Calcium Carb-Cholecalciferol 600-5 MG-MCG Oral Tablet 11/26/2023 Provider: Stephanie Espinoza APRN Diagnosis: Last Documented On 4 9:11AM By Isadora Cm ; [facility] Albuterol Sulfate HFA 108 (9 0 Base) MCG/ACT Inhalation Aerosol Solution 11/26/2023 Provider: Stephanie gibbons APRN Diagnosis: Last Documented On 4 9:11AM By Isadora Cm ; [facility] Furosemide 40 MG Oral Tablet 11/26/2023 Provider: Diagnosis: Last Documented On 4 9:11AM By Isadora Cm ; [facility] Lisinopril-hydroCHLOROthiazi de 20-25 MG Oral Tablet 11/26/2023 Provider: ESTHER MIRANDA Diagnosis: Last Documented On 4 9:11AM By Isadora Cm ; [facility] Magnesium Gluconate 500 MG Oral Tablet 11/26/2023 Pr ovider: Stephanie Espinoza APRN Diagnosis: Last Documented On 4 9:11AM By Isadora Cm ; [facility] Vitamin D3 1.25 MG (52686 UT) Oral Capsule 11/26/2023 Provider: Stephanie Espinoza APRN Diagnosis: Last Documented On 4 9:11AM By Isadora Cm ; [facility] Potassium Chloride Isela ER 2 0 MEQ Oral Tablet Extended Release 11/26/2023 Provider: Stephanie Espinoza APRN Diagnosis: Last Documented On 4 9:11AM By Isadora Cm ; [facility] Montelukast Sodium 10 MG Oral Tablet 11/26/2023 Prov ider: Diagnosis: Last Documented On 4 9:11AM By Isadora Cm ; [facility] Bisoprolol Fumarate 10 MG Oral Tablet 11/26/2023 Pro vider: Diagnosis: Last Documented On 4 9:11AM By Isadora Cm ; [facility] Folinic-Plus 4-50-2 MG [...] Relationship Effect kelsey Dates 1 - [employer] [id number] Iqra Balbuena Self Clinical Notes Includes: Clinical Notes from this encounter No Clinical Notes Recorded
--- OUTSIDE RECORDS SUMMARY | 2025-06-13 23:22 | XMS_ITS | Clinical Summary ---
Author Organization [facility] Address [address] [place] [address] Phone Care Team Providers Care Supervisor Drying And Softening Name Role Phone Rafi PRESCOTT, Maribel Unavailable Unavailable ESTHER MIRANDA Unavailable [phone] Federico Cabello MD Unavailable [phone] Reason for Visit and Chief Complaint The Chief Complaint is: Mid-Low back pain Problems Includes: Problems addressed during this encounter and other active Problems Current Visit Onset Date Resolved Date Provider Conditio n Status Lower Back Pain 01/30/2023 Ghulam Vila PA-C A ctive Last Documented On 3 1:01PM ; [facility], [facility] Past Visits Onset Date Resolved Date Provider Condition Status Midback Pain 01/30/2023 Ghulam Vila PA-C Acti ve Last Documented On 3 1:01PM ; [facility], [facility] Plan of Treatment - Patient screened for future fall risk: documentation of any fall with injury in past year - Last Documented On 12/19/2023 3:28PM ; [facility], [facility] Fall Risk Assessment: This patient has [...] - Last Documented On 12/19/2023 3:28PM ; [facility], [facility] Referrals To Diagnosis Consult for Pain Management Toba tobacco sorter abuse counseling Note: Wait for note to send // cc*Have order ready on paper Last Documented On 4 2:10PM ; [facility], [facility] Instructions to patient Intervention and counseling on cessation of tobacco use Last Documented On 4 9:11AM ; [facility], [facility] Intervention and counseling on cessation of tobacco use Last Documented On 4 9:26AM ; [facility], [facility] Lose weight Last Documented On 4 9:50AM ; [facility], [facility] Assessments Includes: Assessments from this encounter Findings - Overweight - Last Documented On 12/19/2023 3:28PM ; [facility], [facility] Instructions Includes: Instructions from this encounter Instructions to patient Intervention and counseling on cessation of tobacco use Last Documented On 4 9:11AM ; [facility], [facility] Intervention and counseling on cessation of tobacco use Last Documented On 4 9:26AM ; [facility], [facility] Lose weight Last Documented On 4 9:50AM ; [facility], [facility] Medical Equipment - Implanted Devices Includes: Current Devices No Medical Equipment Recorded Medications Includes: Medications discussed during this encounter and other current Medications Discontinued / Stopped on this date Stephanie Espinoza APRN on 11/12/2023 Magnesium Gluconate 500 MG Oral Tablet Pr ovider: Stephanie Espinoza APRN Diagnosis: Last Documented On 4 9:12AM By Isadora Cm ; [facility], [facility] Potassium Chloride Isela ER 2 0 MEQ Oral Tablet Extended Release Provider: Stephanie Espinoza APRN Diagnosis: Last Documented On 4 9:12AM By Isadora Cm ; [facility], [facility] Lisinopril-hydroCHLOROthiazi de 20-25 MG Oral Tablet Provider: ESTHER MIRANDA Diagnosis: Last Documented On 4 9:12AM By Isadora Cm ; [facility], [facility] Albuterol Sulfate HFA 108 (9 0 Base) MCG/ACT Inhalation Aerosol Solution Provider: ESTHER PEARCE ER Diagnosis: Last Documented On 4 9:12AM By Isadora Cm ; [facility], [facility] Bisoprolol Fumarate 10 MG Oral Tablet Pro vider: ESTHER MIRANDA Diagnosis: Last Documented On 4 9:12AM By Isadora Cm ; [facility], [facility] Montelukast Sodium 10 MG Oral Tablet Prov ider: ESTHER MIRANDA Diagnosis: Last Documented On 4 9:12AM By Isadora Cm ; [facility], [facility] Gabapentin 600 MG Oral Tablet Provider: ESTHER MIRANDA Diagnosis: Last Documented On 4 9:12AM By Isadora Cm ; [facility], [facility] Current Medications (continue as prescribed) Calcium Carb-Cholecalciferol 600-5 MG-MCG Oral Tablet 11/26/2023 Provider: Stephanie Espinoza APRN Diagnosis: Last Documented On 4 9:11AM By Isadora Cm ; [facility], [facility] Albuterol Sulfate HFA 108 (9 0 Base) MCG/ACT Inhalation Aerosol Solution 11/26/2023 Provider: Stephanie gibbons APRN Diagnosis: Last Documented On 4 9:11AM By Isadora Cm ; [facility], [facility] Furosemide 40 MG Oral Tablet 11/26/2023 Provider: Diagnosis: Last Documented On 4 9:11AM By Isadora Cm ; [facility], [facility] Lisinopril-hydroCHLOROthiazi de 20-25 MG Oral Tablet 11/26/2023 Provider: ESTHER MIRANDA Diagnosis: Last Documented On 4 9:11AM By Isadora Cm ; [facility], [facility] Magnesium Gluconate 500 MG Oral Tablet 11/26/2023 Pr ovider: Stephanie Espinoza APRN Diagnosis: Last Documented On 4 9:11AM By Isadora mC ; [facility], [facility] Vitamin D3 1.25 MG (79316 UT) Oral Capsule 11/26/2023 Provider: Stephanie Espinoza APRN Diagnosis: Last Documented On 4 9:11AM By Isadora Cm ; [facility], [facility] Potassium Chloride Isela ER 2 0 MEQ Oral Tablet Extended Release 11/26/2023 Provider: Stephanie Espinoza APRN Diagnosis: Last Documented On 4 9:11AM By Isadora Cm ; [facility], [facility] Montelukast Sodium 10 MG Oral Tablet 11/26/2023 Prov ider: Diagnosis: Last Documented On 4 9:11AM By Isadora Cm ; [facility] Bisoprolol Fumarate 10 MG Oral Tablet 11/26/2023 Pro vider: Diagnosis: Last Documented On 4 9:11AM By Isadora Cm ; [facility] Folinic-Plus 4-50-2 MG Oral Tablet 11/12/2023 Provid er: Stephanie Espinoza APRN Diagnosis: Last Documented On 4 9:11AM By Isadora Cm ; [facility] Gabapentin 800 MG Oral Tablet 11/12/2023 Provider: Stephanie Espinoza APRN Diagnosis: Last Documented On 4 9:11AM By Isadora Cm ; [facility] HYDROcodone-Acetaminophen 7.5-325 MG Oral Tablet 01/25 Provider: ESTHER MIRANDA Diagnosis: Last Documented On 3 1:01PM By Yesi Marion ; [facility] amLODIPine Besylate 10 MG Oral Tablet 01/25/2023 Pro vider: ESTHER MIRANDA Diagnosis: Last Documented On 3 1:01PM By Yesi Marion ; [facility] traMADol HCl 50 MG Oral Tablet 01/21/2023 Provider: ESTHER MIRANDA Diagnosis: Last Documented On 3 1:01PM By Yesi Marion ; [facility] Folic Acid 1 MG Oral Tablet 01/02/2023 Provider: Diagnosis: Last Documented On 3 1:01PM By Yesi Marion ; [facility] Cyclobenzaprine HCl 5 MG Oral [...] On 3 2:11PM By Federico Cabello ; [facility] HYDROcodone-Acetaminophen 5- 325 MG Oral [...] 12/19/2023 Last Documented On 4 9:52AM ; [facility] Caffeine use 12/19/2023 Last Documented On 4 9:52AM ; [facility] No recent change in diet 12/19/2023 Last Documented On 4 9:52AM ; [facility] Not exercising regularly 12/19/2023 Last Documented On 4 9:52AM ; [facility], [facility] Not using drugs 12/19/2023 Last Documented On 4 9:52AM ; [facility], [facility] Yes, current smoker. 12/19/2023 Last Documented On 4 9:52AM ; [facility] Tobacco use 01/30/2023 Last Documented On 4 9:11AM ; [facility], [facility] Smoking Status Unknown Procedures and Surgical History Includes: Procedures from this encounter Procedures Code Diagnosis Performing Provider Service L ocation Service Date intervention and counseling on cessation of tobacco use 4000F Last Documented On 4 9:11AM ; [facility], [facility] patient screened for future fall risk: documentation of any fall with injury in past year 1100F Last Documented On 4 9:11AM ; [facility] review of medications documented 1160F Last Documented On 4 9:11AM ; [facility], [facility] an X-ray was performed 08052 Last Documented On 4 9:50AM ; [facility], [facility] an MRI was performed [facility] [id number] Last Documented On 4 9:27AM ; [facility], [facility] Surgical History Last Updated History of back surgery T11 Kypho 02/25/ 3 ~T12 Kypho 05/06/23 12/19/2023 Last Documented On 4 9:55AM ; [facility], [facility] Medical History Includes: Medical History addressed during this encounter Description Last Updated History of Heartburn / Acid Reflux 12/18 Last Documented On 4 9:51AM ; [facility] History of History of Emphysema 12/19/19 24 Last Documented On 4 9:51AM ; [facility] Family History Includes: Family History addressed during this encounter Description Last Updated No significant family history 12/19/2023 Last Documented On 4 9:55AM ; [facility] Review of Systems Includes: Review of Systems [...] Diagnosis NEW PROBLEM/EST PT Federico Cabello MD [facility] 12/19/19 24 9:01AM 9:43AM Overweight Insurance Includes: Active Insurance Policies Plan Name Member ID Group # Subscriber Relationship Effect kelsey Dates - [employer] [id number] Iqra Balbuena Self Clinical Notes Includes: Clinical Notes from this encounter No Clinical Notes Recorded
--- OUTSIDE RECORDS SUMMARY | 2025-06-13 23:22 | XMS_ITS | Clinical Summary ---
Author Organization [facility] , [facility] Address [address] [place] [address] Phone Care Team Providers Care Roller Skater Name Role Phone Rafi PRESCOTT, Maribel Unavailable Unavailable ESTHER MIRANDA Unavailable [phone] Federico Cabello MD Unavailable [phone] Reason for Visit and Chief Complaint [Patient Encounter] Problems Includes: Problems addressed during this encounter and other active Problems All Visits Onset Date Resolved Date Provider Condition S tatus Lower Back Pain 01/30/2023 Ghulam Lewis ctive Last Documented On 3 1:01PM ; [facility] Midback Pain 01/30/2023 Ghulam Vila PA-C Acti ve Last Documented On 3 1:01PM ; [facility], [facility] Plan of Treatment No Plan of [...] On 4 9:11AM By Isadora Cm ; [facility], [facility] Albuterol Sulfate HFA 108 (9 0 Base) MCG/ACT Inhalation Aerosol Solution 11/26/2023 Provider: Stephanie gibbons APRN Diagnosis: Last Documented On 4 9:11AM By Isadora Cm ; [facility], [facility] Furosemide 40 MG Oral Tablet 11/26/2023 Provider: Diagnosis: Last Documented On 4 9:11AM By Isadora Cm ; [facility] Lisinopril-hydroCHLOROthiazi de 20-25 MG Oral Tablet 11/26/2023 Provider: ESTHER MIRANDA Diagnosis: Last Documented On 4 9:11AM By Isadora Cm ; [facility] Magnesium Gluconate 500 MG Oral Tablet 11/26/2023 Pr ovider: Stephanie Espinoza APRN Diagnosis: Last Documented On 4 9:11AM By Isadora Cm ; [facility] Vitamin D3 1.25 MG (32911 UT) Oral Capsule 11/26/2023 Provider: Stephanie Espinoza APRN Diagnosis: Last Documented On 4 9:11AM By Isadora Cm ; [facility] Potassium Chloride Isela ER 2 0 MEQ Oral Tablet Extended Release 11/26/2023 Provider: Stephanie Espinoza APRN Diagnosis: Last Documented On 4 9:11AM By Isadora Cm ; [facility] Montelukast Sodium 10 MG Oral Tablet 11/26/2023 Prov ider: Diagnosis: Last Documented On 4 9:11AM By Isadora Cm ; [facility] Bisoprolol Fumarate 10 MG Oral Tablet 11/26/2023 Pro vider: Diagnosis: Last Documented On 4 9:11AM By Isadora Cm ; [facility] Folinic-Plus 4-50-2 MG Oral Tablet 11/12/2023 Provid er: Stephanie Espinoza APRN Diagnosis: Last Documented On 4 9:11AM By Isadora Cm ; [facility] Gabapentin 800 MG Oral Tablet 11/12/2023 Provider: Stephanie Espinoza APRN Diagnosis: Last Documented On 4 9:11AM By Isadora Cm ; [facility] HYDROcodone-Acetaminophen 7.5-325 MG Oral [...] Relationship Effect kelsey Dates 1 - [employer] [id number] Iqra Nuñez Clinical Notes Includes: Clinical Notes from this encounter No Clinical Notes Recorded
--- OUTSIDE RECORDS SUMMARY | 2025-06-13 23:22 | XMS_ITS ---
Care Plan - [facility] Created on: June 13, 2025 SreeIqra : 1955 Sex: Female Author Organization [facility] Address [address] [place] [address] Phone Care Team Providers Care Advertising Teacher Name Role Phone Rafi PRESCOTT, Maribel Unavailable Unavailable ESTHER MIRANDA Unavailable [phone] Irineo ESPINOZA, Federico Lewis Unavailable [phone]
--- OUTSIDE RECORDS SUMMARY | 2025-06-13 23:22 | XMS_ITS | Clinical Summary ---
Author Organization [facility] Address [address] [place] [address] Phone Care Team Providers Care Senior Environmental Practice Leader Name Role Phone Unavailable Unavailable Conditions or Problems No information available. Medications No information available. Medications Administered No information available. Allergies, Adverse Reactions, Alerts No information available. Results No information available. Plan of Care No information available. Procedures No information available. Vital Signs No information available. Immunizations No information available. Advance Directives No information available.
--- OUTSIDE RECORDS SUMMARY | 2025-06-13 23:22 | XMS_ITS | Clinical Summary ---
Author Organization [facility] Address [address] [place] [address] Care Team Providers Care Software Systems Architect Name Role Phone Rajat Navarro MD Primary Care Provider [phone] Social History Tobacco Use Types Packs/Day Years [...] 2005 UKY-Zoster Vaccines (1 of 2) 2005 [id number] Vaccine ( - 2024- season) 2025 05/24/2021, [...] this topic Insurance [employer] Care Teams Software Systems Architect Relationship Specialty Start Date End Date Rajat Navarro MD [address] [place] [address] [address] [place] [id number] PCP - General 07/15/20
--- OUTSIDE RECORDS SUMMARY | 2025-06-13 23:23 | XMS_ITS | Clinical Summary ---
Author Organization [facility] , [facility] Address [address] [place] [address] Phone Care Team Providers Care Used Car Lot Attendant Name Role Phone Rafi PRESCOTT, Maribel Unavailable Unavailable ESTHER MIRANDA Unavailable [phone] Irineo ESPINOZA, Federico Lewis Unavailable [phone] Reason for Visit and Chief Complaint Kyphoplasty Problems Includes: Problems addressed during this encounter and other active Problems All Visits Onset Date Resolved Date Provider Condition S tatus Lower Back Pain 01/30/2023 Ghulam Vila PA-C A ctive Last Documented On 3 1:01PM ; [facility], [facility] Midback Pain 01/30/2023 Ghulam Vila PA-C Acti ve Last Documented On 3 1:01PM ; [facility] Plan of Treatment No Plan of [...] 1 po q 4h prn pain Pharmacy: [facility] - [address] [address] Fidelina Velasquez, [phone] - Last Documented On 3 4:19PM By Federico Cabello ; [facility], [facility] Current Medications (continue as prescribed) Calcium Carb-Cholecalciferol 600-5 MG-MCG Oral Tablet 11/26/2023 Provider: Stephanie Espinoza APRN Diagnosis: Last Documented On 4 9:11AM By Isadora Cm ; [facility] Albuterol Sulfate HFA 108 (9 0 Base) MCG/ACT Inhalation Aerosol Solution 11/26/2023 Provider: Stephanie gibbons APRN Diagnosis: Last Documented On 4 9:11AM By Isadora Cm ; [facility] Furosemide 40 MG Oral Tablet 11/26/2023 Provider: Diagnosis: Last Documented On 4 9:11AM By Isadora Cm ; [facility] Lisinopril-hydroCHLOROthiazi de 20-25 MG Oral Tablet 11/26/2023 Provider: ESTHER MIRANDA Diagnosis: Last Documented On 4 9:11AM By Isadora Cm ; [facility], [facility] Magnesium Gluconate 500 MG Oral Tablet 11/26/2023 Pr ovider: Stephanie Espinoza APRN Diagnosis: Last Documented On 4 9:11AM By Isadora mC ; [facility], [facility] Vitamin D3 1.25 MG (36034 UT) Oral Capsule 11/26/2023 Provider: Stephanie Espinoza APRN Diagnosis: Last Documented On 4 9:11AM By Isadora Cm ; [facility], [facility] Potassium Chloride Isela ER 2 0 MEQ Oral Tablet Extended Release 11/26/2023 Provider: Stephanie Espinoza APRN Diagnosis: Last Documented On 4 9:11AM By Isadora Cm ; [facility] Montelukast Sodium 10 MG Oral Tablet 11/26/2023 Prov ider: Diagnosis: Last Documented On 4 9:11AM By Isadora Cm ; [facility] Bisoprolol Fumarate 10 MG Oral Tablet 11/26/2023 Pro vider: Diagnosis: Last Documented On 4 9:11AM By Isadora Cm ; [facility] Folinic-Plus 4-50-2 MG Oral Tablet 11/12/2023 Provid er: Stephanie Espinoza APRN Diagnosis: Last Documented On 4 9:11AM By Isadora Cm ; [facility], [facility] Gabapentin 800 MG Oral Tablet 11/12/2023 Provider: Stephanie Espinoza APRN Diagnosis: Last Documented On 4 9:11AM By Isadora Cm ; [facility] HYDROcodone-Acetaminophen 7.5-325 MG Oral Tablet 01/25 Provider: ESTHER MIRANDA Diagnosis: Last Documented On 3 1:01PM By Yesi Marion ; [facility], [facility] amLODIPine Besylate 10 MG Oral Tablet 01/25/2023 Pro vider: ESTHER RUTH Diagnosis: Last Documented On 3 1:01PM By Yesi Marion ; [facility], [facility] traMADol HCl 50 MG Oral Tablet 01/21/2023 Provider: ESTHER MIRANDA Diagnosis: Last Documented On 3 1:01PM By Yesi Marion ; [facility], [facility] Folic Acid 1 MG Oral Tablet 01/02/2023 Provider: Diagnosis: Last Documented On 3 1:01PM By Yesi Marion ; [facility], [facility] Cyclobenzaprine HCl 5 MG Oral Tablet 01/01/2023 Prov ider: ESTHER RUTH Diagnosis: Last Documented On 3 1:01PM By Yesi Marion ; [facility], [facility] Medications Administered Includes: Administered Medications [...] Check-Out Time Diagnosis Kyphoplasty Federico Cabello MD [facility] 05/06/20 7:06AM 9:05AM Insurance Includes: Active Insurance Policies Plan Name Member ID Group # Subscriber Relationship Effect kelsey Dates 1 - [employer]IC[employer] [id number] Iqra Balbuean Self Clinical Notes Includes: Clinical Notes from this encounter No Clinical Notes Recorded
--- OUTSIDE RECORDS SUMMARY | 2025-06-13 23:23 | XMS_ITS ---
Author Organization [facility] , [facility] Address [address] [place] [address] Phone Care Team Providers Care Tip Mender Name Role Phone Rafi PRESCOTT, Maribel Unavailable Unavailable ESTHER MIRANDA Unavailable [phone] Irineo ESPINOZA, Federico Lewis Unavailable [phone] Problems Includes: Active, inactive, and resolved Problems All Visits Onset Date Resolved Date Provider Condition S tatus Lower Back Pain 01/30/2023 Ghulam Vila PA-C A ctive Last Documented On 3 1:01PM ; [facility], [facility] Midback Pain 01/30/2023 Ghulam Vila PA-C Acti ve Last Documented On 3 1:01PM ; [facility], [facility] Plan of Treatment Findings Encounter Date Patient screened for future fall risk: documentation of any fall with injury in past year NEW PROBLEM/EST PT with Federico Cabello MD 12/19/2023 Last Documented On 4 3:28PM ; [facility], [facility] Referrals To Diagnosis Consult with Cut Lace Machine Operator Overw eight Last Documented On 3 1:53PM ; [facility], [facility] Consult with Cut Lace Machine Operator Overw eight Note: STAT to see pulmonolog y Dr. Herrmann if [place] to see if patient can have surgery. She is on O2 and has a T11 compression fracture plan would be for a T11 kypho if cleared. Have clearance sent to Isi Ramesh Last Documented On 3 4:46PM ; [facility], [facility] Consult for Pain Management [facility] liaison abuse counseling Note: Wait for note to [...] 12/19/2023 Last Documented On 4 3:28PM ; [facility] Overweight Post Op with [...] weight Last Documented On 3 1:11PM ; [facility] Medical Equipment - Implanted Devices Includes: Current and historical Devices No Medical Equipment Recorded Medications Includes: Current and historical Medications Current Medications (continue as prescribed) Calcium Carb-Cholecalciferol 600-5 MG-MCG Oral Tablet 11/26/2023 Provider: Stephanie Espinoza APRN Diagnosis: Last Documented On 4 9:11AM By Isadora Cm ; [facility], [facility] Albuterol Sulfate HFA 108 (9 0 Base) MCG/ACT Inhalation Aerosol Solution 11/26/2023 Provider: Stephanie gibbons APRN Diagnosis: Last Documented On 4 9:11AM By Isadora Cm ; [facility], [facility] Furosemide 40 MG Oral Tablet 11/26/2023 Provider: Diagnosis: Last Documented On 4 9:11AM By Isadora Cm ; [facility], [facility] Lisinopril-hydroCHLOROthiazi de 20-25 MG Oral Tablet 11/26/2023 Provider: ESTHER MIRANDA Diagnosis: Last Documented On 4 9:11AM By Isadora Cm ; [facility] Magnesium Gluconate 500 MG Oral Tablet 11/26/2023 Pr ovider: Stephanie Espinoza APRN Diagnosis: Last Documented On 4 9:11AM By Isadora Cm ; [facility] Vitamin D3 1.25 MG (48289 UT) Oral Capsule 11/26/2023 Provider: Stephanie Espinoza APRN Diagnosis: Last Documented On 4 9:11AM By Isadora Cm ; [facility] Potassium Chloride Isela ER 2 0 MEQ Oral Tablet Extended Release 11/26/2023 Provider: Stephanie Espinoza APRN Diagnosis: Last Documented On 4 9:11AM By Isadora Cm ; [facility] Montelukast Sodium 10 MG Oral Tablet 11/26/2023 Prov ider: Diagnosis: Last Documented On 4 9:11AM By Isadora Cm ; [facility] Bisoprolol Fumarate 10 MG Oral Tablet 11/26/2023 Pro vider: Diagnosis: Last Documented On 4 9:11AM By Isadora Cm ; [facility] Folinic-Plus 4-50-2 MG Oral Tablet 11/12/2023 Provid er: Stephanie Espinoza APRN Diagnosis: Last Documented On 4 9:11AM By Isadora Cm ; [facility] Gabapentin 800 MG Oral Tablet 11/12/2023 Provider: Stephanie Espinoza APRN Diagnosis: Last Documented On 4 9:11AM By Isadora Cm ; [facility] HYDROcodone-Acetaminophen 7.5-325 MG Oral Tablet 01/25 Provider: ESTHER MIRANDA Diagnosis: Last Documented On 3 1:01PM By Yesi Marion ; [facility] amLODIPine Besylate 10 MG Oral Tablet 01/25/2023 Pro vider: ESTEHR MIRANDA Diagnosis: Last Documented On 3 1:01PM [...] Cm ; [facility] Potassium Chloride [place] ER 2 0 MEQ Oral Tablet Extended Release 10/28/2023 - 12/19/2023 Provider: Stephanie Espinoza APRN Diagnosis: Last Documented On 4 9:12AM By Isadora Cm ; [facility] Lisinopril-hydroCHLOROthiazi de 20-25 MG Oral Tablet 10/24/2023 - 12/19/2023 Provider: ESTHER MIRANDA Diagnosis: Last Documented On 4 9:12AM By Isadora Cm ; [facility] HYDROcodone-Acetaminophen 5- 325 MG [...] On 3 12:16PM By Federico Cabello ; [facility] HYDROcodone-Acetaminophen 5- 325 MG Oral Tablet 02/28/2023 - 03/13/2023 Provider: Federico Cabello MD Diagnosis: Take 1 tablet every 8 hrs prn pain Last Documented On 3 3:41PM By Federico Cabello ; [facility] HYDROcodone-Acetaminophen 5- 325 MG Oral Tablet 02/19/2023 - 03/04/2023 Provider: Federico Cabello MD Diagnosis: Take 1 tablet every 8 hrs prn pain Last Documented On 3 2:11PM By Federico Cabello ; [facility] HYDROcodone-Acetaminophen 5- 325 MG Oral Tablet 02/06/2023 - 02/19/2023 Provider: Federico Cabello MD Diagnosis: Take 1 tablet every 8 hrs prn pain Last Documented On 3 2:54PM By Federico Cabello ; [facility], [facility] Albuterol Sulfate HFA 108 (9 0 Base) MCG/ACT Inhalation Aerosol Solution 01/24/2023 - 12/19/2023 Provider: ESTHER MIRANDA Diagnosis: Last Documented On 4 9:12AM By Isadora Cm ; [facility], [facility] Bisoprolol Fumarate 10 MG Or al Tablet 01/15/2023 - 12/19/2023 Provider: ESTHER MIRANDA Diagnosis: Last Documented On 4 9:12AM By Isadora Cm ; [facility], [facility] Montelukast Sodium 10 MG Oral Tablet 01/15/2023 - 12/2023 Provider: ESTHER MIRANDA Diagnosis: Last Documented On 4 9:12AM By Isadora Cm ; [facility], [facility] Gabapentin 600 MG Oral Tablet 01/13/2023 - 12/19/2023 Provider: ESTHER MIRANDA Diagnosis: Last Documented On 4 9:12AM By Isadora Cm ; [facility], [facility] Medications Administered Includes: Administered Medications in patient's chart No Administered Medications Recorded Results Includes: Results from 06/13/2024 through 06/13/2025 No Results Recorded For Specified Dates History of Present Illness History of Present Illness not supported for this document type No History of Present Illness Recorded Social History Description Last Updated Tobacco use 01/30/2023 Last Documented On 3 8:46AM ; [facility], [facility] Smoking Status Unknown Medical History Includes: Medical History in patient's [...] inactive, and resolved Allergies No Known Allergies Insurance Includes: Active Insurance Policies Plan Name Member ID Group # Subscriber Relationship Effect kelsey Dates 1 - [employer]IC[employer] [id number] Iqra Balbuena Self Clinical Notes Includes: Signed Clinical Notes starting from 06/28/2022 No Clinical Notes Recorded
--- OUTSIDE RECORDS SUMMARY | 2025-06-13 23:23 | XMS_ITS | Referral Summary ---
Author Organization [employer] ([place], [place], [place], [place], [place]) Address [address] [place] [address] Care Team Providers Care Brickmason Name Role Phone [facility], Provider Not In The System MD [...] the past 12 months, has t he [email or web address], [employer], [employer], or water [employer] threatened to shut off services in your [...] Do you speak a language other than Tanzanian at [facility]? No 02/07/2025 Do you want [...] on file Medical Devices Implanted Type Area Dietary Aide Cook Device Identifier Shelf Expiration Date Model / Serial / Lot Duraclip Sm 16mm [id number] - [id number] Implanted:Qty: 3 on 02/06/2025 by Marisa Garcia MD at [facility] N/A: Esophagus CONMED 04/28/2027 [id number] / / [id number] Insurance [employer] MCR ADV Advance Directives For more information, please contact: [phone] * DNR - Limited Additional Intervention (Latest Code Status on File) Date Activated Date Inactivated Comments 02/06/2025 9:46 PM 02/09/2025 1:53 PM * Full Code Date Activated Date Inactivated Comments 10/06/2024 8:39 PM 10/09/2024 6:04 PM Care Teams Brickmason Relationship Specialty Start Date End Date Jorje, Provider Not In The System, [place] [address] PCP - General 02/06/25
--- OUTSIDE RECORDS SUMMARY | 2025-06-13 23:23 | XMS_ITS | Clinical Summary ---
Author Organization [employer] ([place], [place], [place], [place], [place]) Address [address] [place] [address] Care Team Providers Care Scallop Binder Name Role Phone [facility], Provider Not In The System MD Primary [...] the past 12 months, has t he [employer], [employer], [employer], or water [employer] threatened to shut off services in your [...] speak a language other than Guamanian at [facility]? No 02/07/2025 Do you want [...] 2025 05/30/2023 Medical Devices Implanted Type Area Reeling Machine Operator Device Identifier Shelf Expiration Date Model / Serial / Lot Duraclip Sm 16mm [id number] - [id number] Implanted:Qty: 3 on 02/06/2025 by Marisa Garcia MD at [facility] N/A: Esophagus CONMED 04/28/2027 [id number] / / [id number] Insurance [employer] MCR ADV Advance Directives For more information, please contact: [phone] * DNR - Limited Additional Intervention (Latest Code Status on File) Date Activated Date Inactivated Comments 02/06/2025 9:46 PM 02/09/2025 1:53 PM * Full Code Date Activated Date Inactivated Comments 10/06/2024 8:39 PM 10/09/2024 6:04 PM Care Teams Scallop Binder Relationship Specialty Start Date End Date [facility], Provider Not In The System, [place] [address] PCP - General 02/06/25
--- OUTSIDE RECORDS SUMMARY | 2025-06-13 23:23 | XMS_ITS | Clinical Summary ---
Author Organization [facility] , [facility] Address [address] [place] [address] Phone Care Team Providers Care College Recruiter Name Role Phone Rafi PRESCOTT, Maribel Unavailable Unavailable ESTHER MIRANDA Unavailable [phone] Federico Cabello MD Unavailable [phone] Reason for Visit and Chief Complaint The Chief Complaint is: Mid-Low back pain Problems Includes: Problems addressed during this encounter and other active Problems All Visits Onset Date Resolved Date Provider Condition S tatus Lower Back Pain 01/30/2023 Ghulam Vila PA-C A ctive Last Documented On 3 1:01PM ; [facility] Midback Pain 01/30/2023 Ghulam Vila PA-C Acti ve Last Documented On 3 1:01PM ; [facility] Plan of Treatment Fall Risk [...] - Last Documented On 05/15/2023 9:01AM ; [facility] Patient was seen by myself [...] - Last Documented On 05/15/2023 9:01AM ; [facility], [facility] Instructions to patient Intervention and counseling on cessation of tobacco use Last Documented On 3 8:48AM ; [facility], [facility] Lose weight Last Documented On 3 8:48AM ; [facility], [facility] Assessments Includes: Assessments from this encounter Findings - Overweight - Last Documented On 05/15/2023 9:01AM ; [facility], [facility] T12 kyphoplasty 05/06/2023 - Last Documented On 05/15/2023 9:01AM ; [facility], [facility] Instructions Includes: Instructions from this encounter Instructions to patient Intervention and counseling on cessation of tobacco use Last Documented On 3 8:48AM ; [facility], [facility] Lose weight Last Documented On 3 8:48AM ; [facility], [facility] Medical Equipment - Implanted Devices Includes: Current Devices No Medical Equipment Recorded Medications Includes: Medications discussed during this encounter and other current Medications Current Medications (continue as prescribed) Calcium Carb-Cholecalciferol 600-5 MG-MCG Oral Tablet 11/26/2023 Provider: Stephanie Espinoza APRN Diagnosis: Last Documented On 4 9:11AM By Isadora Cm ; [facility], [facility] Albuterol Sulfate HFA 108 (9 0 Base) MCG/ACT Inhalation Aerosol Solution 11/26/2023 Provider: Stephanie gibbons APRN Diagnosis: Last Documented On 4 9:11AM By Isadora Cm ; [facility], [facility] Furosemide 40 MG Oral Tablet 11/26/2023 Provider: Diagnosis: Last Documented On 4 9:11AM By Isadora Cm ; [facility], [facility] Lisinopril-hydroCHLOROthiazi de 20-25 MG Oral Tablet 11/26/2023 Provider: ESTHER MIRANDA Diagnosis: Last Documented On 4 9:11AM By Isadora Cm ; [facility], [facility] Magnesium Gluconate 500 MG Oral Tablet 11/26/2023 Pr ovider: Stephanie Espinoza APRN Diagnosis: Last Documented On 4 9:11AM By Isadora Cm ; [facility], [facility] Vitamin D3 1.25 MG (41569 UT) Oral Capsule 11/26/2023 Provider: Stephanie Espinoza [...] Last Documented On 3 1:01PM By Yesi Maroin ; [facility] Folic Acid 1 [...] lc Last Documented: On 05/15/2023 8:49AM ; [facility], [facility] Results Includes: Results discussed during [...] 01/30/2023 Last Documented On 3 8:48AM ; [facility], [facility] Smoking Status Unknown Procedures and Surgical History Includes: Procedures from this encounter Procedures Code Diagnosis Performing Provider Service L ocation Service Date intervention and counseling on cessation of tobacco use 4000F Last Documented On 3 8:48AM ; [facility] patient screened for future fall risk: documentation of any fall with injury in past year 1100F Last Documented On 3 8:48AM ; [facility] review of medications documented 1160F Last Documented On 3 8:48AM ; [facility], [facility] Medical History Includes: Medical History [...] Time Diagnosis Post Op Ghulam Vila PA-C [facility] 3 8:46AM 8:59AM Overweight Insurance Includes: Active Insurance Policies Plan Name Member ID Group # Subscriber Relationship Effect kelsey Dates 1 - [employer] [id number] Iqra Balbuena Self Clinical Notes Includes: Clinical Notes from this encounter * Progress note Date Encounter Last Documented by 05/15/2023 Post Op Last documented on 05/15/2023; 9:01 AM, Ghulam Vila PA-C; [facility] Active Problems & Conditions - [...]
--- NOTE | 2025-06-13 23:30 | HMH.EDGENADL ---
Discharge Plan Disposition Patient Disposition: Admitted Prescriptions Prescriptions: No Action cholecalciferol (vitamin D3) 1,250 mcg (50,000 unit) capsule 50,000 unit PO WEEKLY Patient Comments: TAKE 1 CAPSULE BY MOUTH ONCE WEEKLY nicotine 7 mg/24 hr patch 24 hour 1 patch transdermal Q24H Qty: 28 1RF alprazolam 1 mg tablet 1 mg PO BID hydrocodone-acetaminophen 10-325 mg tablet 1 tab PO QID Patient Comments: TAKE 1 TABLET BY MOUTH EVERY 6 HOURS gabapentin 800 mg tablet 800 mg PO TID Patient Comments: TAKE 1 TABLET BY MOUTH 3 TIMES A DAY carvedilol 25 mg Tablet 25 mg PO BID 30 Days Qty: 60 0RF bumetanide 1 mg tablet 1 mg PO DAILY Qty: 30 0RF sennosides-docusate sodium [Stimulant Laxative Plus] 8.6-50 mg Tablet 1 tab PO BID PRN (Reason: Constipation) 10 Days Qty: 20 0RF montelukast 10 mg tablet 10 mg PO HS losartan 100 mg tablet 100 mg PO DAILY Patient Comments: TAKE 1 TABLET BY MOUTH ONCE A DAY Eliquis 5 mg Tablet 5 mg PO BID cefdinir 300 mg capsule 300 mg PO BID 5 Days Qty: 10 0RF prednisone 50 mg tablet 50 mg PO DAILY 5 Days Qty: 5 0RF albuterol sulfate [Ventolin HFA] 90 mcg/actuation HFA aerosol inhaler 1 inh inhalation Q6H 5 Days Qty: 6.7 0RF azithromycin 500 mg tablet 500 mg PO DAILY 5 Days Qty: 5 0RF magnesium gluconate 27 mg magnesium (500 mg) tablet 27 mg PO DAILY azithromycin 250 mg tablet 250 mg PO MOWEFR digoxin 125 mcg (0.125 mg) tablet 125 mcg PO DAILY Clinical Impressions Clinical Impression: COPD (chronic obstructive pulmonary disease), Respiratory failure with hypoxia and hypercapnia, Heart failure Print Language Print Language: [place] Discharge ED Provider: Rl Kendall General Adult HPI General Chief complaint: Shortness of Breath/Dyspnea Stated complaint: SOA Time Seen by Provider: 06/13/25 23:15 History of Present Illness HPI narrative: 70-year-old with history of COPD, hypertension, lung mass with presumable cancer but has not yet started on treatment, A-fib on Eliquis, heart failure presents for worsening shortness of breath. She reports she has felt well the last couple of days but today she went downhill quick . Denies fever at home. Reports cough not significantly different from normal. Very short of breath and unable to provide significant history as result. Related Data Home Medications ?Medication ?Instructions ?Recorded ?Confirmed montelukast 10 mg tablet 10 mg PO HS 04/15/24 06/02/25 apixaban 5 mg tablet (Eliquis) 5 mg PO BID 01/28/25 06/02/25 losartan 100 mg tablet 100 mg PO DAILY 01/28/25 06/02/25 alprazolam 1 mg tablet 1 mg PO BID 03/01/25 06/02/25 gabapentin 800 mg tablet 800 mg PO TID 03/20/25 06/02/25 hydrocodone 10 mg-acetaminophen 1 tab PO QID 10/325MG 03/20/25 06/02/25 325 mg tablet cholecalciferol (vitamin D3) 1,250 50,000 unit PO WEEKLY 03/24/25 06/02/25 mcg (50,000 unit) capsule magnesium gluconate 27 mg 27 mg PO DAILY 06/02/25 06/02/25 magnesium (500 mg) tablet azithromycin 250 mg tablet 250 mg PO MOWEFR 06/03/25 06/03/25 digoxin 125 mcg (0.125 mg) tablet 125 mcg PO DAILY 06/03/25 06/03/25 Previous Rx's ?Medication ?Instructions ?Recorded bumetanide 1 mg tablet 1 mg PO DAILY #30 tabs 03/21/25 carvedilol 25 mg tablet 25 mg PO BID 30 days #60 tabs 03/21/25 sennosides 8.6 mg-docusate sodium 1 tab PO BID PRN Constipation 10 04/16/25 50 mg tablet (Stimulant Laxative days #20 tabs Plus) nicotine 7 mg/24 hr daily 1 patch transdermal Q24H #28 ea 05/11/25 transdermal patch albuterol sulfate 90 mcg/actuation 1 inh inhalation Q6H 5 days #6.7 06/02/25 aerosol inhaler (Ventolin HFA) grams azithromycin 500 mg tablet 500 mg PO DAILY 5 days #5 tabs 06/02/25 cefdinir 300 mg capsule 300 mg PO BID 5 days #10 caps 06/02/25 prednisone 50 mg tablet 50 mg PO DAILY 5 days #5 tabs 06/02/25 Allergies Allergy/AdvReac Type Severity Reaction Status Date / Time No Known Allergies Allergy Verified 05/19/25 09:56 [facility] Disclaimer: The information contained in this section may have been updated after the patient was seen, as this information can be updated by other users. Medical History (Updated 06/14/25 @ 00:28 by Rl Kendall MD) Pleuritic chest pain Constipation Pneumonia Hypomagnesemia Wound of right lower extremity Hypercalcemia Sepsis due to pneumonia Preop cardiovascular exam Coronary artery calcification seen on CT scan Tobacco dependence Claudication Acute and chronic respiratory failure with hypercapnia Unspecified disturbances of skin sensation Other specified symptoms and signs involving the circulatory and respiratory systems HTN (hypertension) HLD (hyperlipidemia) Pneumonia Fecal occult blood test positive Sepsis without septic shock Lymphedema Physical deconditioning General weakness Lung mass Hypomagnesemia Acute hypokalemia Chronic hyponatremia Generalized weakness COPD mixed type Lung nodule Hypokalemia Elevated troponin Nocturnal hypoxemia Pulmonary emphysema Incidental pulmonary nodule, greater than or equal to 8mm Smoking greater than 30 pack years Dyspnea on exertion Tobacco abuse disorder Tobacco abuse counseling Cervical cancer Surgical History History of dilation and curettage History of back surgery Family History Other Diabetes Social History (Updated 06/02/25 @ 21:33 by Lorie Drake RN) Smoking Status: Current every day smoker tobacco type: cigarettes packs per day: 2 second hand exposure: Yes alcohol intake: never substance use type: denies use current occupational status: unemployed Travel in the last 8 weeks?: None household members: spouse housing: house current occupational exposures/hazards: No Other Medical History Have you received the Flu Vaccine for this season: No Have you received the Pneumonia Vaccine: No ROS Obtained: Yes All systems reviewed & no additional complaints except as documented Physical Exam General General appearance: alert and in distress Head Head exam: atraumatic and normocephalic Eye Eye exam: Present normal appearance, PERRL and EOMI ENT ENT exam: Present normal oropharynx and normal external ear exam Neck Neck exam: Present normal inspection and full ROM Chest Chest inspection: Present normal inspection and symmetric chest wall rise; Absent tenderness Respiratory Respiratory exam: Present respiratory distress, wheezes, accessory muscle use and prolonged expiratory phase Cardiovascular Cardiovascular exam: Present normal rhythm and tachycardia Abdominal Exam Abdominal exam: Present soft; Absent distention, tenderness or guarding Extremities Exam Extremities exam: Present normal inspection and edema; Absent joint swelling Back Exam Back exam: Present normal inspection; Absent tenderness Neurological Exam Neurological exam: Present alert and oriented X3; Absent motor sensory deficit Psychiatric Psychiatric exam: Present normal affect and normal mood Skin Skin exam: Present warm, dry and normal color Lymphatic Lymphatic Findings: no adenopathy Medical Decision Making Medical Records Medical records reviewed: Yes I reviewed the patient's medical records. Screening: Per USPSTF and CDC recommendations, given the prevalence of disease in our region, it is our hospital?s policy to screen for HIV and viral Hepatitis for all patients aged 18 and over and those with ongoing risk factors. Azael Inquiry Pt receiving controlled substance: No Azael was queried for this patient: No Vital Signs: 06/13/25 23:34 06/13/25 23:34 Temperature 100.3 F H Temperature Source Axillary Pulse Rate [Left] 125 H Respiratory Rate 21 Blood Pressure [Right Arm] 149/63 H Blood Pressure Mean [Right Arm] 91 Blood Pressure Source [Right Arm] Automatic Cuff Blood Pressure Position [Right Arm] Sitting 02 Sat by Pulse Oximetry 96 Oxygen Delivery Method BiPAP Fraction of Inspired Oxygen 35 Lab Data Lab results reviewed: Yes I reviewed the patient's lab results. Lab Results 06/13/25 21:57: WBC 14.3 H, RBC 3.66 L, Hgb 10.6 L, Hct 34.4 L, MCV 94.0, MCH 29.0, MCHC 30.8 L, RDW 14.2, Plt Count 296, MPV 9.1, Neut % (Auto) 73.3, Lymph % (Auto) 18.1, Mower % (Auto) 4.6, Eos % (Auto) 1.8, Baso % (Auto) 0.2, Neut # (Auto) 10.5 H, Lymph # (Auto) 2.6, Mower # (Auto) 0.7, Eos # (Auto) 0.3, Baso # (Auto) 0.0, PT 10.3, INR 0.92, Sodium 131 L, Potassium 5.0, Chloride 91 L, Carbon Dioxide 37 H, Anion Gap 8.0, BUN 16, Creatinine 0.70, Estimated GFR 83, Est GFR ( Amer) 100, Glucose 146 H, Calcium 9.4, Magnesium 1.7, Total Bilirubin 0.4, AST 27, ALT 18, Alkaline Phosphatase 83, Troponin I 0.01, NT-Pro-B Natriuret Pep 877 H, Total Protein 7.1, Albumin 4.1, Globulin 3.0, Albumin/Globulin Ratio 1.4 06/13/25 22:57: VBG pH 7.30 L, VBG pCO2 74.0 H, VBG pO2 109.1 H, VBG HCO3 35.8 H, VBG Total CO2 38.1 H, VBG O2 Saturation 97.9 H, VBG Base Excess 9.5 H, VBG Lactic Acid 3.2 H 06/13/25 21:57 06/13/25 21:57 Orders (Tests/Meds): ED MEDICATIONS Discontinued Medications Generic Name Dose Route Start Last Admin Trade Name Freq PRN Reason Stop Dose Admin Albuterol/Ipratropium 6 ml 06/13/25 23:15 06/13/25 23:39 Ipratropium/Albuterol 3 Ml Neb IH 06/13/25 23:16 6 ml ONCE ONE Administration Bumetanide 1 mg 06/13/25 23:19 06/14/25 00:04 Bumetanide 1mg/4ml Vial IV 06/13/25 23:20 1 mg ONCE ONE Administration Magnesium Sulfate 2 gm in 50 mls @ 150 mls/hr 06/13/25 23:15 Magnesium Sulfate 2gm/50ml Premix IV 06/13/25 23:34 ONCE ONE Ceftriaxone Sodium 1 gm/ 50 mls @ 100 mls/hr 06/13/25 23:15 Sodium Chloride IV 06/13/25 23:44 ONCE ONE Azithromycin 500 mg/ Sodium 250 mls @ 250 mls/hr 06/13/25 23:18 06/14/25 00:04 Chloride IV 06/13/25 23:19 250 mls/hr ONCE ONE Administration ORDERS Category Date Time Status CXR --portable [XR chest portable] Stat Exams 06/13/25 23:16 Completed BNP [NT Pro Brain Natriuretic Pep.] Stat Lab 06/13/25 21:57 Completed CBC w/Auto Diff [Complete Blood Count Auto Diff] Stat Lab 06/13/25 21:57 Completed CMP [Comprehensive Metabolic Panel] Stat Lab 06/13/25 21:57 Completed Full Resp Panel w/COVID ([facility]) Routine Lab 06/14/25 00:19 Ordered INR [Prothrombin Time INR] Stat Lab 06/13/25 21:57 Completed Magnesium Stat Lab 06/13/25 21:57 Completed Rapid PCR Covid and Flu A/B Stat Lab 06/13/25 23:16 Cancelled Troponin I Q3H Lab 06/13/25 21:57 Completed Troponin I Q3H Lab 06/14/25 02:30 Ordered UA [Urinalysis and Microscopic] Stat Lab 06/13/25 23:51 Ordered Blood Culture Stat Micro 06/13/25 23:29 Received VBG [Venous Blood Gas] Stat RT 06/13/25 22:57 Completed Tissue Perfus/Sepsis Re-Eval Sepsis Re-Evaluation Performed: Yes Date Performed: 06/14/25 Time Performed: HEART Score History (anamnesis): Slightly suspicious ECG: Non-specific disturbance Age: >65 years Risk factors: 3 or more risk factors Troponin: 1-3x normal limit HEART Score: 6 Medical Decision Narrative: 70-year-old with history of COPD, hypertension, lung mass with presumable cancer but has not yet started on treatment, A-fib on Eliquis, heart failure presents for worsening shortness of breath.. History was obtained via interactive discussion with patient, EMS, chart review. On arrival, patient is febrile with temp 100.3, tachycardic to the 120s, normotensive, sats dropped precipitously when she was transferred between oxygen supplies. Full physical exam performed and significant for marked respiratory distress, diminished breath sounds with wheezing and prolonged expiratory phase bilaterally, accessory muscle use. Bilateral pitting edema Differential includes but is not limited to COPD exacerbation, pneumonia, heart failure, complication from known lung mass. Patient was given 1 DuoNeb and 1.5 Solu-Medrol by EMS prior to arrival. She was initiated on 2 additional DuoNebs as well as BiPAP and 2 g of mag for COPD. She was initiated on ceftriaxone and azithromycin for presumed pneumonia in the setting of fever. She was given Bumex for heart failure and volume overload. Given her volume overload, she is not a candidate for a sepsis bolus. Workup initiated including chest x-ray EKG basic lab. On re-evaluation, patient reports some symptomatic improvement after interventions, still on BiPAP and still working to breathe. Laboratory workup independently interpreted by me and significant for mild leukocytosis and anemia, partially compensated respiratory acidosis, elevated lactate, mild, negative initial troponin Imaging independently interpreted by me and significant for unchanged appearance of the known lung mass. See radiology read for full review of final results. EKG independently interpreted by me and significant for sinus tachycardia with a occasional PVCs. Ventricular rate of 120, no obvious ST elevation. Interpreted at 2317. Given patient history, exam and workup, patient's presentation most likely represents acute on chronic hypoxic respiratory failure significant to COPD exacerbation and heart failure. Patient was agreeable to mission. Interactive discussion was had with hospitalist on-call. Procedures Risk/Benefits of Procedure(s) Were Explained: Yes Critical Care Critical Care Time Critical Care Time: Yes Attestation: On 06/13/25, the high probability of a clinically significant, sudden or life threatening deterioration of the following system(s) required my full and direct attention, intervention and personal management. The time I documented below is in addition to time spent performing reported procedures but includes the following listed in this critical care notation. Total Time Total Critical Care Time: 50
[2025-06-13 23:31] LABS: Alanine Aminotransferase 18 U/L (12-78); Albumin Level 4.1 g/dl (3.5-5.0); Albumin/Globulin Ratio 1.4 (1.1-1.8); Alkaline Phosphatase 83 U/L (38-126); Anion Gap 8.0 mEq/L (5-15); Aspartate Amino Transferase 27 U/L (14-36); Bilirubin,Total 0.4 mg/dl (0.2-1.3); Blood Urea Nitrogen 16 mg/dl (7-17); Carbon Dioxide 37 mmol/L (22.0-30.0); Chloride 91 mmol/L (98-107); Creatinine,Serum 0.70 mg/dl (0.52-1.04); Estimated Glomerular Filt Rate 83 ml/min (>60); GFR (African American) 100 ML/MIN (>60); Globulin 3.0 g/dL (1.3-3.2); INR 0.92 (0.9-1.1); Magnesium 1.7 mg/dl (1.6-2.3); Potassium 5.0 mmoL/L (3.5-5.1); Prothrombin Time 10.3 seconds (10.1-12.5); Sodium 131 mmol/L (136-145); Total Protein,Serum 7.1 g/dl (6.3-8.2)
[2025-06-13 23:31] LABS: VBG HCO3 35.8 mmol/L (23-30); VBG PH 7.30 mmol/L (7.31-7.41); VBG PO2 109.1 mmol/L (28-40)
[2025-06-13 23:33] LABS: Lactate Venous 3.2 mmol/L (0.4-2.0); VBG PCO2 74.0 mmol/L (35-51)
[2025-06-13 23:34] VITALS: BP 149/63; PULSE 125; RESP 18; RESP 21; RESP 26; TEMP 37.9; O2SAT 96; BMI 23.1
[2025-06-13] MEDS: IPRATROPIUM/ALBUTEROL 3 ML NEB 6 ML IH (23:39)
[2025-06-13 23:43] LABS: NT Pro Brain Natriuretic Pep. 877 pg/mL (0-125)
[2025-06-13 23:47] LABS: Troponin I 0.01 ng/ml (0.00-0.034)
[2025-06-13 23:56] LABS: Calcium 9.4 mg/dl (8.4-10.2); Glucose 146 mg/dl (74-100)
[2025-06-14] VITALS (23 sets, daily range): BP systolic 123–178; BP diastolic 61–81; PULSE 78–109; RESP 15–27; TEMP 36.4–37.9; O2SAT 90–98; BMI 24.9
[2025-06-14] MEDS: BUMETANIDE 1MG/4ML VIAL 1 MG IV (00:04)
[2025-06-14] MEDS: AZITHROMYCIN 500 MG in 0.9 % SODIUM CHLORIDE 250 ML 250 MG IV ×2 (00:04→21:32)
[2025-06-14] MEDS: MAGNESIUM SULFATE IN WATER 2 GM/50 ML PIGGYBACK IV (00:19)
[2025-06-14 00:24] LABS: Adenovirus,PCR Not Detected (NotDetected); Chlamydophila Pneumoniae, PCR Not Detected (NotDetected); Coronavirus 19, PCR Not Detected (NotDetected); Coronovirus HKU1,PCR Not Detected (NotDetected); Influenza A, PCR Not Detected (NotDetected); Influenza AH1, 2009 Not Detected (NotDetected); Influenza AH1, PCR Not Detected (NotDetected); Influenza AH3,PCR Not Detected (NotDetected); Influenza B, PCR Not Detected (NotDetected); Mycoplasma Pneumoniae, PCR Not Detected (NotDetected); Parainfluenza 1, PCR Not Detected (NotDetected); Parainfluenza 2, PCR Not Detected (NotDetected); Parainfluenza 3, PCR Not Detected (NotDetected); Parainfluenza 4, PCR Not Detected (NotDetected)
--- NOTE | 2025-06-14 00:25 | PC.NURSE ---
Pt placed in gown, purewick external cath placed to suction, abx started , warm blanket provided, call light within reach, no other needs at this time
--- NOTE | 2025-06-14 00:35 | PC.NURSE ---
Pt is noted to have bilateral extremity edema in her ankles. Palpable pedal pulses, skin is warm to touch, skin is dry and ashen.
[2025-06-14] MEDS: CEFTRIAXONE 1 GM 1 GM in 0.9 % SODIUM CHLORIDE 50 ML IV ×2 (00:42→20:39)
[2025-06-14 00:52] LABS: Microscopic, Urine URINE MICROSCOPIC (MICROSCOPIC)
[2025-06-14 00:55] LABS: Bilirubin,Urine Negative (Negative); Color,Urine YELLOW (Yellow); Glucose,Urine (UA) Negative (Negative); Ketones,Urine Negative (Negative); Leukocyte Esterase,Urine Negative (Negative); PH,Urine 6.5 (5.0-8.5); Protein,Urine Negative (Negative); Specific Gravity, Urine 1.010 (1.005-1.030); Urobilinogen,Urine 0.2 EU/dl (0.2)
[2025-06-14 01:06] LABS: RBC,Urine Occasional #/hpf (0-3)
[2025-06-14 01:07] LABS: Squamous Epithelial Cell,Urine Occasional #/hpf (0-5)
--- NOTE | 2025-06-14 01:48 | P.HP_ITS ---
<Statement entered by Teja Blair MD - 06/14/25 15:16> Rounded on patient after nurse practitioner. Personally examined and interviewed patient. Agree with exam findings and care plan as documented. History of Present Illness *Admission Date: 06/14/25 *Reason for visit:: Shortnes of breath *History of present illness: Iqra Balbuena is a 70-year-old female past medical history significant for coronary artery disease, acute on chronic respiratory failure with hypercapnia, O2 dependent at 3 L/BiPAP nightly, lung mass, COPD, cervical cancer, hypertension, hyperlipidemia, A-fib on Eliquis and heart failure. Presents to [facility] ED with complaint of of shortness of breath. Reports symptom onset today, that progressed quickly. Due to shortness of breath patient unable to provide complete history. History obtained per chart review and staff. Nunu presented with respiratory distress on arrival to ED. Noted wheezing, febrile low grade fever 100.3 ?F, tachycardic. Bilateral lower extremity pitting edema. Received 1 Neb treatment, 1.5 Solu-Medrol en route per EMS. ED arrival, received 2 additional Nebs, 2 g magnesium and placed on BiPAP. Chest x-ray obtained noted emphysematous changes, obesity right upper mid lung. Presumed underlying pneumonia with presenting symptoms tachycardia, febrile, elevated WBC. IV Rocephin and azithromycin initiated in ED. After initial ED treatment noted improvement with respiratory distress. Recent admission on 06/02, diagnosed with COPD exacerbation and also found to have urinary tract infection, urine with leuk esterase and bacteria. Patient given ceftriaxone IV during that admission. Discharged home with cefdinir 300 mg twice daily x 5 days. Culture obtained and resulted after discharge with multiple organisms, suggestive of contamination. Hospital medicine consulted for admission. Assessment the patient at bedside, mild acute distress, tachypneic RR 30s, patient endorses improvement from initial ED presentation. Diminished air movement out. Hemodynamically stable. Currently without any complaint or concern. Stepdown unit admission. Initial ED workup included laboratory studies and imaging. Significant laboratory findings included WBC 14.3, VBG pH 7.30, VBG pCO2 74, VBG HCO3 35.8, VBG O2 97, ABG lactic acid 3.2, sodium 131, BNP 877. Full respiratory panel obtained unremarkable. Chest x-ray obtained, I personally reviewed suggestive of stable chest with emphysematous changes, opacity in the right mid to upper lung field corresponding to posterior right upper lobe. Masslike opacity noted in prior CT. [facility] Disclaimer: The information contained in this section may have been updated after the patient was seen, as this information can be updated by other users. Medical History Pleuritic chest pain Constipation Pneumonia Hypomagnesemia Wound of right lower extremity Hypercalcemia Sepsis due to pneumonia Preop cardiovascular exam Coronary artery calcification seen on CT scan Tobacco dependence Claudication Acute and chronic respiratory failure with hypercapnia Unspecified disturbances of skin sensation Other specified symptoms and signs involving the circulatory and respiratory systems HTN (hypertension) HLD (hyperlipidemia) Pneumonia Fecal occult blood test positive Sepsis without septic shock Lymphedema Physical deconditioning General weakness Lung mass Hypomagnesemia Acute hypokalemia Chronic hyponatremia Generalized weakness COPD mixed type Lung nodule Hypokalemia Elevated troponin Nocturnal hypoxemia Pulmonary emphysema Incidental pulmonary nodule, greater than or equal to 8mm Smoking greater than 30 pack years Dyspnea on exertion Tobacco abuse disorder Tobacco abuse counseling Cervical cancer Surgical History History of dilation and curettage History of back surgery Family History Other Diabetes Social History Smoking Status: Current every day smoker tobacco type: cigarettes packs per day: 2 second hand exposure: Yes alcohol intake: never substance use type: denies use current occupational status: unemployed Travel in the last 8 weeks?: None household members: spouse housing: house current occupational exposures/hazards: No Contact w/someone who lives/traveled outside [place] past 30 days?: No Exposure to someone with infectious disease in past 14 days?: No Do you have a fever (greater than 100.4 F or 38 C)?: No Have you tested positive for COVID-19?: No Exposed to someone with COVID-19 in past 14 days?: No Do you have a sore throat?: No Do you have a cough?: No Do you have any weakness?: Yes Are you experiencing any nausea/vomitting?: No Do you have any diarrhea?: No Are you experiencing any unusual bleeding?: No Do you have any muscle aches/pain?: No Do you have any abdominal pain?: No Are you experiencing loss of taste or smell?: No Other Medical History Have you received the Flu Vaccine for this season: No Have you received the Pneumonia Vaccine: No Review of Systems Review of Systems Review of systems:: unable to obtain Review of systems (narrative): Presents with respiratory distress, underlying COPD exacerbation. Unable to complete sentences due to distress. Constitutional Constitutional: Reports as per HPI, Reports fatigue and Reports fever(s) Eyes Eyes: Reports system reviewed and no additional complaints, except as documented and Reports as per HPI ENT Ears, Nose, Mouth, and Throat: Reports system reviewed and no additional co mplaints, except as documented and Reports as per HPI *Cardiovascular Cardiovascular: Reports as per HPI, Reports dyspnea, Reports dyspnea on exertion and Reports leg edema *Respiratory Respiratory: Reports cough, Reports dyspnea, Reports dyspnea on exertion and Reports wheezing *Genitourinary Genitourinary: Reports system reviewed and no additional complaints, except as documented and Reports as per HPI *Musculoskeletal Musculoskeletal: Reports system reviewed and no additional complaints, except as documented and Reports as per HPI Integumentary/Breasts Skin/Breast: Reports system reviewed and no additional complaints, except as documented and Reports as per HPI *Neurologic Neurologic: Reports system reviewed and no additional complaints, except as documented and Reports as per HPI Psychiatric Psychiatric: Reports system reviewed and no additional complaints, except as documented and Reports as per HPI Endocrine Endocrine: Reports as per HPI and Reports fatigue Hematologic/Lymphatic Hematologic/Lymphatic: Reports system reviewed and no additional complaints, except as documented and Reports as per HPI Allergic/Immunologic Allergic/Immunologic: Reports as per HPI and Reports wheezing Meds Home Medications and Allergies Home Medications ?Medication ?Instructions ?Recorded ?Confirmed ?Type montelukast 10 mg tablet 10 mg PO HS 04/15/24 5 History apixaban 5 mg tablet (Eliquis) 5 mg PO BID 01/28/25 History losartan 100 mg tablet 100 mg PO DAILY 01/28/25 History alprazolam 1 mg tablet 1 mg PO BID 03/01/25 5 History gabapentin 800 mg tablet 800 mg PO TID 03/20/2506/02 History hydrocodone 10 mg-acetaminophen 1 tab PO QID 10/325MG 03/20/25 06/02/25 History 325 mg tablet bumetanide 1 mg tablet 1 mg PO DAILY #30 tabs 03/2106/02/25 Rx carvedilol 25 mg tablet 25 mg PO BID 30 days #60 tab s 03/21/25 06/02/25 Rx cholecalciferol (vitamin D3) 1,250 50,000 unit PO WEEK LY 03/24/25 06/02/25 History mcg (50,000 unit) capsule sennosides 8.6 mg-docusate sodium 1 tab PO BID PRN Con stipation 10 04/16/25 06/02/25 Rx 50 mg tablet (Stimulant Laxative days #20 tabs Plus) nicotine 7 mg/24 hr daily 1 patch transdermal Q24H #28 ea 05/11/25 06/02/25 Rx transdermal patch albuterol sulfate 90 mcg/actuation 1 inh inhalation Q6 H 5 days #6.7 06/02/25 Rx aerosol inhaler (Ventolin HFA) grams azithromycin 500 mg tablet 500 mg PO DAILY 5 days #5 t abs 06/02/25 Rx cefdinir 300 mg capsule 300 mg PO BID 5 days #10 cap s 06/02/25 Rx magnesium gluconate 27 mg 27 mg PO DAILY 06/02/2505/15 History magnesium (500 mg) tablet prednisone 50 mg tablet 50 mg PO DAILY 5 days #5 tab s 06/02/25 Rx azithromycin 250 mg tablet 250 mg PO MOWEFR 06/03/25 1 08/03/24 History digoxin 125 mcg (0.125 mg) tablet 125 mcg PO DAILY 06/03/25 History New Prescriptions to Start Prescriptions: Allergies Allergy/AdvReac Type Severity Reaction Status Date / Time No Known Allergies Allergy Verified 05/19/25 09:56 Exam Data for Last 24 hours Vital signs and Labs for Last 24 Hours: Temp Pulse Resp BP Pulse Ox O2 Del Method O2 Flow Rate 98.7 F 97 H 24 161/80 H 95 BiPAP 18 06/14/25 01:13 06/14/25 01:17 06/14/25 01:13 06/14/25 01:13 06/14/25 01:13 06/14/25 01:17 06/14/25 01:13 FiO2 30 06/14/25 01:14 Laboratory Results - last 24 hr 06/13/25 21:57: WBC 14.3 H, RBC 3.66 L, Hgb 10.6 L, Hct 34.4 L, MCV 94.0, MCH 29.0, MCHC 30.8 L, RDW 14.2, Plt Count 296, MPV 9.1, Neut % (Auto) 73.3, Lymph % (Auto) 18.1, [place] % (Auto) 4.6, Eos % (Auto) 1.8, Baso % (Auto) 0.2, Neut # (Auto) 10.5 H, Lymph # (Auto) 2.6, [place] # (Auto) 0.7, Eos # (Auto) 0.3, Baso # (Auto) 0.0, PT 10.3, INR 0.92, Sodium 131 L, Potassium 5.0, Chloride 91 L, Carbon Dioxide 37 H, Anion Gap 8.0, BUN 16, Creatinine 0.70, Estimated GFR 83, Est GFR ( Amer) 100, Glucose 146 H, Calcium 9.4, Magnesium 1.7, Total Bilirubin 0.4, AST 27, ALT 18, Alkaline Phosphatase 83, Troponin I 0.01, NT-Pro-B Natriuret Pep 877 H, Total Protein 7.1, Albumin 4.1, Globulin 3.0, Albumin/Globulin Ratio 1.4 06/13/25 22:57: VBG pH 7.30 L, VBG pCO2 74.0 H, VBG pO2 109.1 H, VBG HCO3 35.8 H , VBG Total CO2 38.1 H, VBG O2 Saturation 97.9 H, VBG Base Excess 9.5 H, VBG Lactic Acid 3.2 H 06/14/25 00:00: Urine Color Yellow, Urine Appearance Clear, Urine pH 6.5, Ur Specific [place] 1.010, Urine Protein Negative, Urine Glucose (UA) Negative, Urine Ketones Negative, Urine Blood Negative, Urine Nitrate Negative, Urine Bilirubin Negative, Urine Urobilinogen 0.2, Ur Leukocyte Esterase Negative, Urine RBC Occasional, Ur Squamous Epith Cells Occasional I & O for Last 24 hours: Intake & Output 06/11/25 06/12/25 06/13/25 06/14/25 23:59 23:59 23:59 23:59 Intake Total 50 / 50 Output Total 0 / 0 Balance 50 / 50 Weight 61.235 kg 66.224 kg Constitutional Constitutional: mild distress and chronically ill appearing *Routine HEENT Exam Head: Present normocephalic and atraumatic Eye: Present EOMI, PERRL and normal accommodation ENT: Present mucous membranes moist *Routine Neck Exam Neck: Present supple and full ROM *Routine Respiratory Exam Respiratory: Present accessory muscle use, decreased breath sounds and wheezes *Routine Cardiovascular Exam Cardiovascular: Present Normal S1, Normal S2, tachycardia and irregular rhythm Comments: Appears to be transitioning in and out of atrial fibrillation to sinus tachycardia, history of atrial fibrillation. *Routine Abdominal Exam Abdominal: Present soft and normoactive bowel sounds *Routine Rectal Exam Rectal:: deferred *Routine Genitalia Exam Genitalia:: deferred *Routine Skin Exam Skin: Present intact *Routine Neurological Exam Neurological: Present alert and oriented X3 Routine Psychiatric Exam Psychiatric: Present normal affect Assessment and Plan *Assessment and plan (1) Acute exacerbation of chronic obstructive pulmonary disease: Status: Acute Category: Medical Code(s): J44.1 - Chronic obstructive pulmonary disease with (acute) exacerbation (2) Acute and chronic respiratory failure with hypercapnia: Status: Acute Category: Medical Code(s): J96.22 - Acute and chronic respiratory failure with hypercapnia (3) Sepsis: Status: Acute Qualifiers: Acute respiratory failure type: with hypercapnia Sepsis acute organ dysfunction status: with acute organ dysfunction Sepsis type: sepsis due to unspecified organism Severe sepsis acute organ dysfunction type: acute respiratory failure Severe sepsis shock status: without septic shock Qualified Code(s): A41.9 - Sepsis, unspecified organism; R65.20 - Severe sepsis without septic shock; J96.02 - Acute respiratory failure with hypercapnia Category: Medical Code(s): A41.9 - Sepsis, unspecified organism (4) Febrile illness, acute: Status: Acute Category: Medical Code(s): R50.9 - Fever, unspecified (5) Heart failure: Status: Acute Qualifiers: Heart failure chronicity: chronic Heart failure type: unspecified Qualified Code(s): I50.9 - Heart failure, unspecified Category: Medical Code(s): I50.9 - Heart failure, unspecified (6) Bilateral lower extremity edema: Status: Acute Category: Medical Code(s): R60.0 - Localized edema (7) Mass of lung: Status: Acute Category: Medical Code(s): R91.8 - Other nonspecific abnormal finding of lung field (8) Paroxysmal atrial fibrillation: Status: Acute Category: Medical Code(s): I48.0 - Paroxysmal atrial fibrillation (9) Chronic anticoagulation: Status: Acute Category: Medical Code(s): Z79.01 - nursing home (current) use of anticoagulants (10) HTN (hypertension): Status: Acute Qualifiers: Hypertension type: primary hypertension Qualified Code(s): I10 - Essential (primary) hypertension Category: Medical Code(s): I10 - Essential (primary) hypertension (11) HLD (hyperlipidemia): Status: Acute Qualifiers: Hyperlipidemia type: other hyperlipidemia Qualified Code(s): E78.49 - Other hyperlipidemia Category: Medical Code(s): E78.5 - Hyperlipidemia, unspecified Plan Assessment/plan: Patient was discussed with the emergency department and agree with admission. 70-year-old female, presents with shortness of breath consistent with COPD exacerbation. Noted abrupt onset with worsening symptoms today. Notable hypercapnia and hypoxia ED workup/assessment. Received IV Solu-Medrol 1.5 and DuoNeb per EMS and route. on arrival received 2 additional DuoNeb treatments, IV magnesium and placement on BiPAP. ED provider also noted bilateral lower extremity pitting edema. 1 mg Bumex was given. Chest x-ray with evidence of COPD changes and known right upper lobe mass. Admitted to stepdown unit for continued monitoring/management. Continue BiPAP treatment tonight, ABG-6 AM, DuoNebs every 6 as needed, IV Solu-Medrol Q40. Antibiotics initiated ED due to febrile illness, presumed pneumonia with elevated WBC 14, lactic acid 3.2. IV fluids contradicted in the setting of heart failure. Consult placed to pulmonary. 1. Acute on chronic respiratory failure with hypercapnia and hypoxia/acute on chronic COPD exacerbation: Baseline 2 to 3 L nasal cannula supplementation baseline prior to admission. Nightly BiPAP. VBG pH 7.3, VBG pCO2 74, VBG pO2 109, VBG HCO3 35.8, VBG total CO2 38. Resume BiPAP settings. Continue Trelegy 100 inhaler along with DuoNebs 4 times daily as needed. IV Solu-Medrol 40 mg every 12, ABG 6 AM. Consult placed to pulmonary for further evaluation and treatment appreciated. Continuous O2 monitoring. Continue oxygen supplementation to maintain O2 saturation goal of 90% and above. Pulmonary hygiene. 2. Sepsis/Acute febrile illness: Presumed pneumonia. Febrile, WBC 14, tachypneic RR 25-30, tachycardia HR 90-100-> chest x-ray w/ stable COPD changes and known right lung mass. RPP full panel-negative. UA negative. Possible f/u CT imaging for completion if patient w/out improvement. Blood cultures pending. Recent admission- 06/02, diagnosed with COPD exacerbation and urinary tract infection, urine with leuk esterase and bacteria. Patient recieved ceftriaxone IV during that admission. Discharged home with cefdinir 300 mg twice daily x 5 days. Culture obtained and resulted after discharge with multiple organisms, suggestive of contamination. Repeat urine culture-recent antibiotic treatment may be masking underlying organism/bacteria. Broad-spectrum IV antibiotics initiated in ED, IV Rocephin and azithromycin. IV fluids contradicted due to underlying congestive heart failure. Continuous cardiac monitoring. Continue to monitor, trend labs. 3. Chronic congestive heart failure: Bilateral lower extremity pitting edema, 1-2+. Received 1 mg Bumex within the emergency department. Home regime Bumx 1mg. Chest x-ray without evidence of volume overload. Lung sounds w/out crackles. Recently underwent ischemic workup and there were was no evidence of reversible ischemia EF at that time was 56% (05/26/25) . Resume home Bumex 1 mg, monitor intake/output. 4. Lung mass: Right upper lobe mass concerning for lung malignancy. Addressed with most recent admission on 06/02/25. Patient to follow in pulmonary clinic- previously scheduled for biopsy of the concerning right upper lobe lung nodule. Continued encouragement for follow-up with pulmonary for biopsy. 5. History of atrial fibrillation/chronic anticoagulation: Twelve-lead showing sinus tachycardia-> although initially patient appeared to be in and out of atrial fibrillation. Now the patient is resting, sinus rhythm. Resume home beta-luis armando carvedilol twice daily. Digoxin 125 mcg daily. Anticoagulation Eliquis. INR 0.92. Normotensive, resume antihypertensive medication. Healthy heart diet-when off BiPAP. 6. DVT prophylaxis: Eliquis Full code Healthy heart diet
[2025-06-14 03:23] LABS: Troponin I 0.03 ng/ml (0.00-0.034)
[2025-06-14 03:27] LABS: Reflex Lactic Add Lactic Reflex
[2025-06-14 03:38] LABS: Lactic Acid Follow Up (RFLX 1) 0.9 mmol/L (0.7-2.1)
[2025-06-14] MEDS: METHYLPREDNISOLONE SOD SUCC 40MG VIAL 40 MG IV (05:41)
[2025-06-14 06:02] LABS: Hematocrit 32.7 % (37.0-47.0); Hemoglobin 10.0 g/dL (12.2-16.2); Immature Granulocytes % 1.0 %; Mean Corpuscular HGB Conc 30.6 g/dL (31.8-35.4); Mean Corpuscular Hemoglobin 28.1 pg (27.0-31.2); Mean Corpuscular Volume 91.9 fl (81-99); Nucleated Red Blood Cells % 0 %; Platelet Count 247 K/mm3 (142-424); Red Blood Count 3.56 M/mm3 (4.20-5.40); Red Cell Distribution Width-SD 48.1 fL; White Blood Count 16.1 K/mm3 (4.8-10.8)
[2025-06-14 06:13] LABS: Albumin Level 3.8 g/dl (3.5-5.0); Chloride 89 mmol/L (98-107); Potassium 4.5 mmoL/L (3.5-5.1); Sodium 137 mmol/L (136-145)
[2025-06-14 06:16] LABS: Alanine Aminotransferase 14 U/L (12-78); Albumin/Globulin Ratio 1.4 (1.1-1.8); Alkaline Phosphatase 69 U/L (38-126); Aspartate Amino Transferase 23 U/L (14-36); Bilirubin,Total 0.2 mg/dl (0.2-1.3); Blood Urea Nitrogen 15 mg/dl (7-17); Creatinine Clearance Estimated 55 mL/min (50-200); Creatinine,Serum 0.80 mg/dl (0.52-1.04); Estimated Glomerular Filt Rate 71 ml/min (>60); GFR (African American) 86 ML/MIN (>60); Globulin 2.8 g/dL (1.3-3.2); Total Protein,Serum 6.6 g/dl (6.3-8.2)
[2025-06-14 06:17] LABS: Calcium 9.4 mg/dl (8.4-10.2); Glucose 166 mg/dl (74-100)
[2025-06-14 06:28] LABS: Carbon Dioxide 38 mmol/L (22.0-30.0)
[2025-06-14 06:35] LABS: Anion Gap 14.5 mEq/L (5-15)
[2025-06-14] MEDS: IPRATROPIUM/ALBUTEROL 3 ML NEB IH (06:36)
[2025-06-14] MEDS: SODIUM CHLORIDE 3% 15ML NEB 3 ML IH ×2 (06:36→13:12)
[2025-06-14 06:59] LABS: ABG HCO3 34.8 mmhg (22.0-26.0); ABG PH 7.40 mmol/L (7.35-7.45); ABG PO2 82.2 mmhg (80-100); ABG TCO2 36.5 mmhg (23-27)
[2025-06-14 07:02] LABS: Source Right Brachial
[2025-06-14 07:04] LABS: ABG PCO2 57.4 mmhg (35.0-45.0)
--- NOTE | 2025-06-14 08:25 | [facility].PHAAMS2 ---
- Antimicrobial Stewardship Review culture & sensitivity review Stewardship interventions: culture & sensitivity review Comments: BLOOD CX PENDING, SPUTUM CX UNCOLLECTED. PATIENT ON AZITHROMYCIN/ROCEPHIN EMPIRICALLY FOR PNEUMONIA.
[2025-06-14] MEDS: DIGOXIN 0.125MG TABLET 125 MCG PO (08:44)
[2025-06-14] MEDS: CARVEDILOL 25MG TABLET 25 MG PO ×2 (08:45→20:39)
[2025-06-14] MEDS: APIXABAN 5MG TABLET 5 MG PO ×2 (08:45→20:39)
[2025-06-14] MEDS: BUMETANIDE 1 MG TABLET PO (08:45)
[2025-06-14] MEDS: IRBESARTAN 150MG TAB 150 MG PO (08:45)
--- NOTE | 2025-06-14 09:30 | P.EN_ITS ---
<Statement entered by Teja Blair MD - 06/14/25 11:45> Rounded on patient after nurse practitioner. Personally examined and interviewed patient. Agree with exam findings and care plan as documented. Patient admitted early this morning, note below to update on POC. Ms. Balbuena is a 70-year-old female who is well-known to our service and has a past medical history of chronic respiratory failure with hypoxia and hypercapnia, HFpEF, HLD, HTN, CAD, tobacco use disorder, COPD with supplemental oxygen?BiPAP at night, known right lung mass, A-fib, DDD. She presented to the emergency department late last night with complaints of dyspnea. She stated she has been feeling worse over the past 2 to 3 days. Initial workup was significant for temperature 100.3, tachycardia to the 120s, O2 saturation initially low but improved with supplemental oxygen. Per EMS when reporting to the patient's home she states she had been turning her oxygen up but the oxygen in fact was not turned on at all. Lung sounds were notable for wheezing and prolonged expiratory phase bilaterally, pitting edema noted bilateral lower extremities as well. In the ED patient was given DuoNeb, Solu-Medrol, magnesium IV and placed on BiPAP. Initial VBG significant for pH 7.30, pCO2 74, lactic acid 3.2, BNP 877. Lab work was significant for mild leukocytosis, anemia, elevated lactic, negative troponin. Full respiratory panel obtained and was negative, chest x-ray suggestive of emphysematous changes, right mid to upper lobe opacity. Patient was initiated on azithromycin and ceftriaxone IV. EKG showed sinus tach. Hospital medicine was consulted for admission, and agreed to admit the patient. Plan of care as follows: #Acute on chronic respiratory failure with hypercapnia and hypoxia #Acute on chronic COPD exacerbation #Sepsis ? Patient was admitted to the medical surgical floor for acute on chronic respiratory failure/COPD exacerbation/HFpEF exacerbation. Patient was initially given Bumex 1 mg due to bilateral lower extremity pitting edema. Patient states she is compliant with her BiPAP and wears it nightly. Repeat ABG this morning shows pH 7.4, pCO2 57.4. Significantly improved from admission. ? Patient met sepsis criteria with WBC of 14, tachypnea RR 25?30, tachycardia HR 100?1 20s, febrile at 100.3. Patient was recently admitted to our service and treated for a UTI, culture suggestive of contamination. Patient received Rocephin IV during admission discharged home on cefdinir 300 mg twice daily x 5 days. Repeat UA obtained and pending. Blood cultures obtained and pending. IV fluids held due to underlying CHF and edema. Patient initiated on azithromycin and Rocephin IV daily. DuoNebs every 6 hours scheduled. Patient initially given Solu-Medrol 40 mg every 12 hours IV, transition tomorrow to prednisone 40 mg daily per pulmonology's recommendation. Additionally will add Trelegy 100 daily. BiPAP while resting, continuous O2 2-3 L while awake. Goal O2 greater than 90%. ? Pulmonology consulted for further recommendations. Patient states she had outpatient follow-up with pulmonology today and plans for lung biopsy on 06/18/2025 for further evaluation of right lung mass. ? WBC slightly more elevated today at 16.1, likely in the setting of steroids. Anemia stable with hemoglobin of 10.0. No electrolyte abnormalities, normal kidney function noted. CBC, CMP, magnesium ordered for the a.m. #HFpEF #HLD/HTN #Paroxysmal atrial fibrillation ? Patient has known heart failure with EF of 56% 05/2025. Bilateral lower extremity edema notable at 1+ pitting. Patient received home regimen Bumex 1 mg last night in the ED, continued Bumex 1 mg daily today. Lung sounds significant for prolonged expiratory phase and wheezing. ? Continued home cardiac medications of: Bumex 1 mg daily, carvedilol 25 mg twice daily, digoxin 125 mcg daily, Eliquis 5 mg twice daily, losartan 100 mg daily. Patient has known paroxysmal A-fib, appears to be in sinus rhythm, continuous cardiac telemetry ordered. Patient initially tachycardic, heart rate improved to 90s. ? Close monitoring for urinary output and edema. Full code Ambulate as tolerated, PT/OT ordered Diet?cardiac diet VTE?Eliquis 5 mg twice daily
--- NOTE | 2025-06-14 09:48 | EXP.PULM.CON ---
History of Present Illness History of present illness: Ms. Balbuena is a 70-year-old female current smoker greater than [id number] smoking history COPD, chronic hypoxic respiratory failure on 2 to 3 L nasal on supplementation at baseline, lung mass due to scheduled bronchoscopy prior admissions for hypercarbic respiratory failure supposed to be using BiPAP therapy at home presented to the ER with worsening respiratory distress and pulmonary was called for further evaluation and management. [facility] Disclaimer: The information contained in this section may have been updated after the patient was seen, as this information can be updated by other users. Medical History Pleuritic chest pain Constipation Pneumonia Hypomagnesemia Wound of right lower extremity Hypercalcemia Sepsis due to pneumonia Preop cardiovascular exam Coronary artery calcification seen on CT scan Tobacco dependence Claudication Acute and chronic respiratory failure with hypercapnia Unspecified disturbances of skin sensation Other specified symptoms and signs involving the circulatory and respiratory systems HTN (hypertension) HLD (hyperlipidemia) Pneumonia Fecal occult blood test positive Sepsis without septic shock Lymphedema Physical deconditioning General weakness Lung mass Hypomagnesemia Acute hypokalemia Chronic hyponatremia Generalized weakness COPD mixed type Lung nodule Hypokalemia Elevated troponin Nocturnal hypoxemia Pulmonary emphysema Incidental pulmonary nodule, greater than or equal to 8mm Smoking greater than 30 pack years Dyspnea on exertion Tobacco abuse disorder Tobacco abuse counseling Cervical cancer Surgical History History of dilation and curettage History of back surgery Family History Other Diabetes Social History Smoking Status: Current every day smoker tobacco type: cigarettes packs per day: 2 second hand exposure: Yes alcohol intake: never substance use type: denies use current occupational status: unemployed Travel in the last 8 weeks?: None household members: spouse housing: house current occupational exposures/hazards: No Contact w/someone who lives/traveled outside [place] past 30 days?: No Exposure to someone with infectious disease in past 14 days?: No Do you have a fever (greater than 100.4 F or 38 C)?: No Have you tested positive for COVID-19?: No Exposed to someone with COVID-19 in past 14 days?: No Do you have a sore throat?: No Do you have a cough?: No Do you have any weakness?: Yes Are you experiencing any nausea/vomitting?: No Do you have any diarrhea?: No Are you experiencing any unusual bleeding?: No Do you have any muscle aches/pain?: No Do you have any abdominal pain?: No Are you experiencing loss of taste or smell?: No Review of Systems Constitutional Constitutional: Reports fatigue and Reports weakness Eyes Eyes: Denies itchy eyes and Denies loss of vision ENT Ears, Nose, Mouth, and Throat: Denies lip swelling, Denies throat swelling and Denies vertigo *Cardiovascular Cardiovascular: Reports chest pain, Reports dyspnea, Reports dyspnea on exertion and Denies syncope *Respiratory Respiratory: Denies change in phlegm color, Reports chest congestion, Reports cough, Reports dyspnea, Reports dyspnea on exertion, Reports excessive phlegm production and Reports wheezing *Gastrointestinal Gastrointestinal: Denies abdominal pain, Denies belching, Reports change in stool character, Denies cramping and Reports diarrhea *Musculoskeletal Musculoskeletal: Reports back pain, Reports myalgias and Reports other (No small joint swelling or Pain) *Neurologic Neurologic: Reports system reviewed and no additional complaints, except as documented, Reports as per HPI, Denies loss of vision, Denies syncope, Denies vertigo and Reports weakness Psychiatric Psychiatric: Denies homicidal ideation and Denies suicidal ideation Endocrine Endocrine: Reports fatigue and Denies heat intolerance Hematologic/Lymphatic Hematologic/Lymphatic: Denies easy bleeding and Denies lymphadenopathy Allergic/Immunologic Allergic/Immunologic: Denies itchy eyes, Denies lip swelling, Denies throat swelling and Reports wheezing Pulmonology Exam Inpatient Vital signs and Labs for Last 24 Hours: Temp Pulse Resp BP Pulse Ox O2 Del Method O2 Flow Rate 97.6 F 92 H 21 141/70 H 94 L BiPAP 18 06/14/25 08:17 06/14/25 08:44 06/14/25 06:37 06/14/25 08:17 06/14/25 08:17 06/14/25 08:54 06/14/25 06:00 FiO2 30 06/14/25 06:33 Laboratory Results - last 24 hr 06/13/25 21:57: WBC 14.3 H, RBC 3.66 L, Hgb 10.6 L, Hct 34.4 L, MCV 94.0, MCH 29.0, MCHC 30.8 L, RDW 14.2, Plt Count 296, MPV 9.1, Neut % (Auto) 73.3, Lymph % (Auto) 18.1, [place] % (Auto) 4.6, Eos % (Auto) 1.8, Baso % (Auto) 0.2, Neut # (Auto) 10.5 H, Lymph # (Auto) 2.6, [place] # (Auto) 0.7, Eos # (Auto) 0.3, Baso # (Auto) 0.0, PT 10.3, INR 0.92, Sodium 131 L, Potassium 5.0, Chloride 91 L, Carbon Dioxide 37 H, Anion Gap 8.0, BUN 16, Creatinine 0.70, Estimated GFR 83, Est GFR ( Amer) 100, Glucose 146 H, Calcium 9.4, Magnesium 1.7, Total Bilirubin 0.4, AST 27, ALT 18, Alkaline Phosphatase 83, Troponin I 0.01, NT-Pro-B Natriuret Pep 877 H, Total Protein 7.1, Albumin 4.1, Globulin 3.0, Albumin/Globulin Ratio 1.4 06/13/25 22:57: VBG pH 7.30 L, VBG pCO2 74.0 H, VBG pO2 109.1 H, VBG HCO3 35.8 H, VBG Total CO2 38.1 H, VBG O2 Saturation 97.9 H, VBG Base Excess 9.5 H, VBG Lactic Acid 3.2 H 06/14/25 00:00: Urine Color Yellow, Urine Appearance Clear, Urine pH 6.5, Ur Specific [place] 1.010, Urine Protein Negative, Urine Glucose (UA) Negative, Urine Ketones Negative, Urine Blood Negative, Urine Nitrate Negative, Urine Bilirubin Negative, Urine Urobilinogen 0.2, Ur Leukocyte Esterase Negative, Urine RBC Occasional, Ur Squamous Epith Cells Occasional 06/14/25 00:21: Chlamy pneumoniae PCR Not detected, Adenovirus (PCR) Not detected, B. pertussis DNA (PCR) Not detected, Coronavirus OC43 (PCR) Not detected, Coronavirus HKU1 (PCR) Not detected, Coronavirus 229E (PCR) Not detected, SARS-CoV-2 (PCR) Not detected, Coronavirus NL63 (PCR) Not detected, Human Metapneumovir PCR Not detected, Influenza A (H1) PCR Not detected, Influ A (H1N1/09) PCR Not detected, Influenza A (H3) PCR Not detected, Influenza Type A (PCR) Not detected, Influenza Type B (PCR) Not detected, M. pneumoniae (PCR) Not detected, Parainfluenza 1 (PCR) Not detected, Parainfluenza 2 (PCR) Not detected, Parainfluenza 3 (PCR) Not detected, Parainfluenza 4 (PCR) Not detected, RSV (PCR) Not detected, Entero/Rhino (PCR) Not detected 06/14/25 02:50: Lactate 0.9, Troponin I 0.03 06/14/25 05:31: WBC 16.1 H, RBC 3.56 L, Hgb 10.0 L, Hct 32.7 L, MCV 91.9, MCH 28.1, MCHC 30.6 L, RDW 14.2, Plt Count 247, MPV 9.0, Neut % (Auto) 94.0 H, Lymph % (Auto) 4.5 L, [place] % (Auto) 0.3 L, Eos % (Auto) 0.1, Baso % (Auto) 0.1, Neut # (Auto) 15.2 H, Lymph # (Auto) 0.7, [place] # (Auto) 0.1, Eos # (Auto) 0.0, Baso # (Auto) 0.0, Sodium 137, Potassium 4.5, Chloride 89 L, Carbon Dioxide 38 H, Anion Gap 14.5, BUN 15, Creatinine 0.80, Estimated Creat Clear 55, Estimated GFR 71, Est GFR ( Amer) 86, Glucose 166 H, Lactate 1.1, Calcium 9.4, Total Bilirubin 0.2, AST 23, ALT 14, Alkaline Phosphatase 69, Total Protein 6.6, Albumin 3.8, Globulin 2.8, Albumin/Globulin Ratio 1.4 06/14/25 06:00: Specimen Source Right brachial, O2 % 30%, ABG pH 7.40, ABG pCO2 57.4 H, ABG pO2 82.2, ABG HCO3 34.8 H, ABG Total CO2 36.5 H, ABG O2 Saturation 96, ABG Base Excess 10.0 H, Mikey Test Acceptable, Vent Rate 18, PEEP Bipap 16/8 I & O for Labs for Last 24 Hours: Intake & Output 06/11/25 06/12/25 06/13/25 06/14/25 23:59 23:59 23:59 23:59 Intake Total 350 / 350 Output Total 1075 / 1075 Balance -725 / -725 Weight 135 lb 145 lb 15.983 oz Constitutional: Present moderate distress Head: Present normocephalic and atraumatic ENT: Present normal exam, normal oropharynx and mucous membranes moist Neck: Present normal inspection and full ROM Respiratory: Present rhonchi, normal respiratory effort and able to speak in complete sentences; Absent prolonged expiratory phase, respiratory distress, wheezes, crackles or diminished air movement Cardiac: Present S1/S2, Tachycardia and radial pulses present GI: Present soft and distention Rectal (female): Present deferred (female): Present deferred Skin: Present intact; Absent cyanosis or jaundice Neuro: Present alert, awake and oriented x 3 Extremities: Present normal inspection; Absent clubbing or cyanosis Psychiatric: Present normal affect and cooperative Meds Home Medications and Allergies Home Medications ?Medication ?Instructions ?Recorded ?Confirmed ?Type montelukast 10 mg tablet 10 mg PO HS 04/15/24 06/14/25 History apixaban 5 mg tablet (Eliquis) 5 mg PO BID 01/28/25 06/14/25 History losartan 100 mg tablet 100 mg PO DAILY 01/28/25 06/14/25 History alprazolam 1 mg tablet 1 mg PO BID 03/01/25 06/14/25 History gabapentin 800 mg tablet 800 mg PO TID 03/20/25 06/14/25 History hydrocodone 10 mg-acetaminophen 1 tab PO QID 10/325MG 03/20/25 06/14/25 History 325 mg tablet bumetanide 1 mg tablet 1 mg PO DAILY #30 tabs 03/21/25 06/14/25 Rx carvedilol 25 mg tablet 25 mg PO BID 30 days #60 tabs 03/21/25 06/14/25 Rx cholecalciferol (vitamin D3) 1,250 50,000 unit PO WEEKLY 03/24/25 06/14/25 History mcg (50,000 unit) capsule sennosides 8.6 mg-docusate sodium 1 tab PO BID PRN Constipation 10 04/16/25 06/14/25 Rx 50 mg tablet (Stimulant Laxative days #20 tabs Plus) nicotine 7 mg/24 hr daily 1 patch transdermal Q24H #28 ea 05/11/25 06/14/25 Rx transdermal patch albuterol sulfate 90 mcg/actuation 1 inh inhalation Q6H 5 days #6.7 06/02/25 06/14/25 Rx aerosol inhaler (Ventolin HFA) grams magnesium gluconate 27 mg 27 mg PO DAILY 06/02/25 06/14/25 History magnesium (500 mg) tablet azithromycin 250 mg tablet 250 mg PO MOWEFR 06/03/25 06/14/25 History digoxin 125 mcg (0.125 mg) tablet 125 mcg PO DAILY 06/03/25 06/14/25 History New Prescriptions to Start Prescriptions: Allergies Allergy/AdvReac Type Severity Reaction Status Date / Time No Known Allergies Allergy Verified 05/19/25 09:56 Results Laboratory Findings 06/14/25 05:31 06/14/25 05:31 ABG ABG pH 7.40 mmol/L (7.35-7.45) 06/14/25 06:00 ABG pCO2 57.4 mmhg (35.0-45.0) H 06/14/25 06:00 ABG pO2 82.2 mmhg (80-100) 06/14/25 06:00 ABG O2 Saturation 96 % (90-100) 06/14/25 06:00 PT/INR, D-dimer PT 10.3 seconds (10.1-12.5) 06/13/25 21:57 INR 0.92 (0.9-1.1) 06/13/25 21:57 Abnormal lab findings: Abnormal Labs 06/13/25 06/13/25 06/14/25 21:57 22:57 05:31 WBC 14.3 H 16.1 H RBC 3.66 L 3.56 L Hgb 10.6 L 10.0 L Hct 34.4 L 32.7 L MCHC 30.8 L 30.6 L Neut % (Auto) 94.0 H Lymph % (Auto) 4.5 L [place] % (Auto) 0.3 L Neut # (Auto) 10.5 H 15.2 H ABG pCO2 ABG HCO3 ABG Total CO2 ABG Base Excess VBG pH 7.30 L VBG pCO2 74.0 H VBG pO2 109.1 H VBG HCO3 35.8 H VBG Total CO2 38.1 H VBG O2 Saturation 97.9 H VBG Base Excess 9.5 H VBG Lactic Acid 3.2 H Sodium 131 L Chloride 91 L 89 L Carbon Dioxide 37 H 38 H Glucose 146 H 166 H NT-Pro-B Natriuret Pep 877 H 06/14/25 06:00 WBC RBC Hgb Hct MCHC Neut % (Auto) Lymph % (Auto) [place] % (Auto) Neut # (Auto) ABG pCO2 57.4 H ABG HCO3 34.8 H ABG Total CO2 36.5 H ABG Base Excess 10.0 H VBG pH VBG pCO2 VBG pO2 VBG HCO3 VBG Total CO2 VBG O2 Saturation VBG Base Excess VBG Lactic Acid Sodium Chloride Carbon Dioxide Glucose NT-Pro-B Natriuret Pep Assessment and Plan *Assessment and plan (1) Respiratory failure with hypoxia and hypercapnia: Status: Acute Qualifiers: Chronicity: acute on chronic Qualified Code(s): J96.21 - Acute and chronic respiratory failure with hypoxia; J96.22 - Acute and chronic respiratory failure with hypercapnia Category: Medical Code(s): J96.91 - Respiratory failure, unspecified with hypoxia; J96.92 - Respiratory failure, unspecified with hypercapnia (2) Acute exacerbation of chronic obstructive pulmonary disease: Status: Acute Category: Medical Code(s): J44.1 - Chronic obstructive pulmonary disease with (acute) exacerbation Plan Ms. Balbuena is a 70-year-old female current smoker greater than [id number] smoking history COPD, chronic hypoxic respiratory failure on 2 to 3 L nasal on supplementation at baseline, lung mass due to scheduled bronchoscopy prior admissions for hypercarbic respiratory failure supposed to be using BiPAP therapy at home presented to the ER with worsening respiratory distress and pulmonary was called for further evaluation and management. Patient was recently seen in the hospital for worsening respiratory distress, discharged home on home inhaler therapy with doxycycline for a 3-day course and prednisone for 5 days. Low-grade fevers at 100.3. Neutrophilic prominent leukocytosis. Chest x-ray upon admission clear with no acute pulmonary infiltrates/consolidative changes. No effusions. Blood gas upon admission hypercarbic respiratory failure with a pH of 7.30 and pCO2 of 74. Improved with subsequent arterial blood gas at 7.40 and 57.4. Currently being managed for community-acquired pneumonia COPD exacerbation with ceftriaxone azithromycin nebulization therapies and steroids. On auscultation dry coarse breath sounds. No significant wheezing. NIV compliance report reviewed, suboptimal compliance. Has not been using her BiPAP therapy for most of the day spent greater than 4 hours for the month of May, likely reason for her being hypercarbic. Plan: Sputum culture with induction Continue ceftriaxone and AZithromycin pending sputum culture results Continue Trelegy 100 inhaler along with DuoNebs 4 times daily as needed Prednisone 40 mg daily x 5 days # Thank you for involving pulmonary in this patient care. Will continue to follow.
[2025-06-14] MEDS: FLUTICASONE/UMECLIDIN/VILANTER 100/62.5/25MCG INHALER 1 PUFF IH (13:11)
--- NOTE | 2025-06-14 16:52 | PC.NURSE ---
Report given to Ifrah Wiley for transfer to M/S status.
[2025-06-14] MEDS: HYDROCODONE 10MG/APAP 325MG TAB 1 TAB PO (20:39)
[2025-06-14] MEDS: MONTELUKAST SODIUM 10MG TAB 10 MG PO (20:39)
[2025-06-15] VITALS (11 sets, daily range): BP systolic 140–172; BP diastolic 65–82; PULSE 60–83; RESP 10–29; TEMP 36.2–36.7; O2SAT 92–96; BMI 24.0
[2025-06-15] MEDS: FLUTICASONE/UMECLIDIN/VILANTER 100/62.5/25MCG INHALER 1 PUFF IH (05:57)
[2025-06-15 06:20] LABS: Hematocrit 28.3 % (37.0-47.0); Hemoglobin 8.8 g/dL (12.2-16.2); Immature Granulocytes % 0.7 %; Mean Corpuscular HGB Conc 31.1 g/dL (31.8-35.4); Mean Corpuscular Hemoglobin 28.1 pg (27.0-31.2); Mean Corpuscular Volume 90.4 fl (81-99); Nucleated Red Blood Cells % 0 %; Platelet Count 232 K/mm3 (142-424); Red Blood Count 3.13 M/mm3 (4.20-5.40); Red Cell Distribution Width-SD 46.3 fL; White Blood Count 11.6 K/mm3 (4.8-10.8)
[2025-06-15 06:27] LABS: Albumin Level 3.3 g/dl (3.5-5.0); Chloride 88 mmol/L (98-107)
[2025-06-15 06:28] LABS: Potassium 4.2 mmoL/L (3.5-5.1); Sodium 136 mmol/L (136-145)
[2025-06-15 06:30] LABS: Alanine Aminotransferase 14 U/L (12-78); Alkaline Phosphatase 48 U/L (38-126); Aspartate Amino Transferase 30 U/L (14-36); Bilirubin,Total 0.2 mg/dl (0.2-1.3); Blood Urea Nitrogen 20 mg/dl (7-17); Creatinine Clearance Estimated 53 mL/min (50-200); Creatinine,Serum 0.70 mg/dl (0.52-1.04); Estimated Glomerular Filt Rate 83 ml/min (>60); GFR (African American) 100 ML/MIN (>60)
[2025-06-15 06:31] LABS: Albumin/Globulin Ratio 1.3 (1.1-1.8); Calcium 8.9 mg/dl (8.4-10.2); Globulin 2.6 g/dL (1.3-3.2); Glucose 128 mg/dl (74-100); Magnesium 1.7 mg/dl (1.6-2.3); Total Protein,Serum 5.9 g/dl (6.3-8.2)
[2025-06-15 06:54] LABS: Anion Gap 9.2 mEq/L (5-15); Carbon Dioxide 43 mmol/L (22.0-30.0)
[2025-06-15] MEDS: DIGOXIN 0.125MG TABLET 125 MCG PO (08:45)
[2025-06-15] MEDS: APIXABAN 5MG TABLET 5 MG PO (08:47)
[2025-06-15] MEDS: BUMETANIDE 1 MG TABLET PO (08:47)
[2025-06-15] MEDS: IRBESARTAN 150MG TAB 150 MG PO (08:47)
[2025-06-15] MEDS: CARVEDILOL 25MG TABLET 25 MG PO ×2 (08:47→20:27)
[2025-06-15] MEDS: HYDROCODONE 10MG/APAP 325MG TAB 1 TAB PO ×4 (08:51→20:27)
[2025-06-15] MEDS: IPRATROPIUM/ALBUTEROL 3 ML NEB IH ×3 (08:54→20:45)
--- NOTE | 2025-06-15 08:59 | HMH.PHAAMS2 ---
- Antimicrobial Stewardship Review 48 hour timeout review Stewardship interventions: culture & sensitivity review Comments: URINE CX PENDING, BLOOD CX NO GROWTH AT 24 HR, SPUTUM CX PENDING. PATIENT ON AZITHROMYCIN/ROCEPHIN EMPIRICALLY FOR PNEUMONIA.
--- NOTE | 2025-06-15 09:43 | P.PN_ITS ---
Subjective *Date: 06/15/25 *Time: 10:22 Interval history: No acute respiratory vents overnight. Pulmonology Exam Inpatient Vital signs and Labs for Last 24 Hours: Temp Pulse Resp BP Pulse Ox O2 Del Method O2 Flow Rate 97.4 F L 83 16 151/75 H 94 L Nasal Cannula 3 06/15/25 08:00 06/15/25 08:45 06/15/25 08:00 06/15/25 08:00 06/15/25 08:00 06/15/25 09:00 06/15/25 09:00 FiO2 30 06/15/25 02:42 Laboratory Results - last 24 hr 06/15/25 05:40: WBC 11.6 H D, RBC 3.13 L, Hgb 8.8 L, Hct 28.3 L, MCV 90.4, MCH 28.1, MCHC 31.1 L, RDW 14.0, Plt Count 232, MPV 9.2, Neut % (Auto) 85.4 H, Lymph % (Auto) 9.6 L, [place] % (Auto) 4.1, Eos % (Auto) 0.0 L, Baso % (Auto) 0.2, Neut # (Auto) 9.9 H, Lymph # (Auto) 1.1, [place] # (Auto) 0.5, Eos # (Auto) 0.0, Baso # (Auto) 0.0, Sodium 136, Potassium 4.2, Chloride 88 L, Carbon Dioxide 43 H*, Anion Gap 9.2, BUN 20 H D, Creatinine 0.70, Estimated Creat Clear 53, Estimated GFR 83, Est GFR ( Amer) 100, Glucose 128 H, Calcium 8.9, Magnesium 1.7, Total Bilirubin 0.2, AST 30 D, ALT 14, Alkaline Phosphatase 48, Total Protein 5.9 L, Albumin 3.3 L D, Globulin 2.6, Albumin/Globulin Ratio 1.3 Temp Pulse Resp BP Pulse Ox O2 Del Method O2 Flow Rate 97.6 F 92 H 21 141/70 H 94 L BiPAP 18 06/14/25 08:17 06/14/25 08:44 06/14/25 06:37 06/14/25 08:17 06/14/25 08:17 06/14/25 08:54 06/14/25 06:00 FiO2 30 06/14/25 06:33 Laboratory Results - last 24 hr 06/13/25 21:57: WBC 14.3 H, RBC 3.66 L, Hgb 10.6 L, Hct 34.4 L, MCV 94.0, MCH 29.0, MCHC 30.8 L, RDW 14.2, Plt Count 296, MPV 9.1, Neut % (Auto) 73.3, Lymph % (Auto) 18.1, [place] % (Auto) 4.6, Eos % (Auto) 1.8, Baso % (Auto) 0.2, Neut # (Auto) 10.5 H, Lymph # (Auto) 2.6, [place] # (Auto) 0.7, Eos # (Auto) 0.3, Baso # (Auto) 0.0, PT 10.3, INR 0.92, Sodium 131 L, Potassium 5.0, Chloride 91 L, Carbon Dioxide 37 H, Anion Gap 8.0, BUN 16, Creatinine 0.70, Estimated GFR 83, Est GFR ( Amer) 100, Glucose 146 H, Calcium 9.4, Magnesium 1.7, Total Bilirubin 0.4, AST 27, ALT 18, Alkaline Phosphatase 83, Troponin I 0.01, NT-Pro-B Natriuret Pep 877 H, Total Protein 7.1, Albumin 4.1, Globulin 3.0, Albumin/Globulin Ratio 1.4 06/13/25 22:57: VBG pH 7.30 L, VBG pCO2 74.0 H, VBG pO2 109.1 H, VBG HCO3 35.8 H , VBG Total CO2 38.1 H, VBG O2 Saturation 97.9 H, VBG Base Excess 9.5 H, VBG Lactic Acid 3.2 H 06/14/25 00:00: Urine Color Yellow, Urine Appearance Clear, Urine pH 6.5, Ur Sp ecific [place] 1.010, Urine Protein Negative, Urine Glucose (UA) Negative, Urine Ketones Negative, Urine Blood Negative, Urine Nitrate Negative, Urine Bilirubin Negative, Urine Urobilinogen 0.2, Ur Leukocyte Esterase Negative, Urine RBC Occasional, Ur Squamous Epith Cells Occasional 06/14/25 00:21: Chlamy pneumoniae PCR Not detected, Adenovirus (PCR) Not detected, B. pertussis DNA (PCR) Not detected, Coronavirus OC43 (PCR) Not detected, Coronavirus HKU1 (PCR) Not detected, Coronavirus 229E (PCR) Not detected, SARS-CoV-2 (PCR) Not detected, Coronavirus NL63 (PCR) Not detected, Human Metapneumovir PCR Not detected, Influenza A (H1) PCR Not detected, Influ A (H1N1/09) PCR Not detected, Influenza A (H3) PCR Not detected, Influenza Type A (PCR) Not detected, Influenza Type B (PCR) Not detected, M. pneumoniae (PCR) Not detected, Parainfluenza 1 (PCR) Not detected, Parainfluenza 2 (PCR) Not detected, Parainfluenza 3 (PCR) Not detected, Parainfluenza 4 (PCR) Not detected , RSV (PCR) Not detected, Entero/Rhino (PCR) Not detected 06/14/25 02:50: Lactate 0.9, Troponin I 0.03 06/14/25 05:31: WBC 16.1 H, RBC 3.56 L, Hgb 10.0 L, Hct 32.7 L, MCV 91.9, MCH 28.1, MCHC 30.6 L, RDW 14.2, Plt Count 247, MPV 9.0, Neut % (Auto) 94.0 H, Lymph % (Auto) 4.5 L, [place] % (Auto) 0.3 L, Eos % (Auto) 0.1, Baso % (Auto) 0.1, Neut # (Auto) 15.2 H, Lymph # (Auto) 0.7, [place] # (Auto) 0.1, Eos # (Auto) 0.0, Baso # (Auto) 0.0, Sodium 137, Potassium 4.5, Chloride 89 L, Carbon Dioxide 38 H, Anion Gap 14.5, BUN 15, Creatinine 0.80, Estimated Creat Clear 55, Estimated GFR 71, Est GFR ( Amer) 86, Glucose 166 H, Lactate 1.1, Calcium 9.4, Total Bilirubin 0.2, AST 23, ALT 14, Alkaline Phosphatase 69, Total Protein 6.6, Albumin 3.8, Globulin 2.8, Albumin/Globulin Ratio 1.4 06/14/25 06:00: Specimen Source Right brachial, O2 % 30%, ABG pH 7.40, ABG pCO2 57.4 H, ABG pO2 82.2, ABG HCO3 34.8 H, ABG Total CO2 36.5 H, ABG O2 Saturation 96, ABG Base Excess 10.0 H, Mikey Test Acceptable, Vent Rate 18, PEEP Bipap 16/8 I & O for Labs for Last 24 Hours: Intake & Output 06/12/25 06/13/25 06/14/25 06/15/25 23:59 23:59 23:59 23:59 Intake Total 1270 / 1510 600 / 600 Output Total 2275 / 2275 400 / 400 Balance -1005 / -765 200 / 200 Weight 135 lb 145 lb 15.983 oz 141 lb 1.6 oz Intake & Output 06/11/25 06/12/25 06/13/25 06/14/25 23:59 23:59 23:59 23:59 Intake Total 350 / 350 Output Total 1075 / 1075 Balance -725 / -725 Weight 135 lb 145 lb 15.983 oz Microbiology Reports for the Last 24 Hours: Microbiology 06/13/25 23:29 Blood Blood Culture - Preliminary NO GROWTH AFTER 24 HOURS 06/13/25 23:25 Blood Blood Culture - Preliminary NO GROWTH AFTER 24 HOURS 06/14/25 13:15 Sputum - Expectorated Sputum Gram Stain - Final Constitutional: Present moderate distress Head: Present normocephalic and atraumatic ENT: Present normal exam, normal oropharynx and mucous membranes moist Neck: Present normal inspection and full ROM Respiratory: Present rhonchi, normal respiratory effort and able to speak in complete sentences; Absent prolonged expiratory phase, respiratory distress, wheezes, crackles or diminished air movement Cardiac: Present S1/S2, Tachycardia and radial pulses present GI: Present soft and distention Rectal (female): Present deferred (female): Present deferred Skin: Present intact; Absent cyanosis or jaundice Neuro: Present alert, awake and oriented x 3 Extremities: Present normal inspection; Absent clubbing or cyanosis Psychiatric: Present normal affect and cooperative Assessment and Plan *Assessment and plan (1) Respiratory failure with hypoxia and hypercapnia: Status: Acute Qualifiers: Chronicity: acute on chronic Qualified Code(s): J96.21 - Acute and chronic respiratory failure with hypoxia; J96.22 - Acute and chronic respiratory failure with hypercapnia Category: Medical Code(s): J96.91 - Respiratory failure, unspecified with hypoxia; J96.92 - Respiratory failure, unspecified with hypercapnia (2) Acute exacerbation of chronic obstructive pulmonary disease: Status: Acute Category: Medical Code(s): J44.1 - Chronic obstructive pulmonary disease with (acute) exacerbation Plan Ms. Balbuena is a 70-year-old female current smoker greater than [id number] smoking history COPD, chronic hypoxic respiratory failure on 2 to 3 L nasal on supplementation at baseline, lung mass due to scheduled bronchoscopy prior admissions for hypercarbic respiratory failure supposed to be using BiPAP therapy at home presented to the ER with worsening respiratory distress and pulmonary was called for further evaluation and management. Patient was recently seen in the hospital for worsening respiratory distress, discharged home on home inhaler therapy with doxycycline for a 3-day course and prednisone for 5 days. Low-grade fevers at 100.3. Neutrophilic prominent leukocytosis. Chest x-ray upon admission clear with no acute pulmonary infiltrates/consolidative changes. No effusions. Blood gas upon admission hypercarbic respiratory failure with a pH of 7.30 and pCO2 of 74. Improved with subsequent arterial blood gas at 7.40 and 57.4. Currently being managed for community-acquired pneumonia COPD exacerbation with ceftriaxone azithromycin nebulization therapies and steroids. On initial examination no significant wheezing. NIV compliance report reviewed, suboptimal compliance. Has not been using her BiPAP therapy for most of the day spent greater than 4 hours for the month of May, likely reason for her being hypercarbic. Interval update: No acute respiratory events overnight. Improving leukocytosis. Continue to receive antibiotics inhalers and steroids. Prelim sputum gram-positive cocci in clusters, less than 10 WBC. Will follow. Chest x-ray this morning concerning for right lower lobe infiltrate, continue to receive antibiotics. Plan: Hold apixaban to facilitate bronchoscopy for this coming Saturday. Patient currently being evaluated for discharge to acute rehab, will follow to see whether they can facilitate transport for bronchoscopy or we need to reschedule that. Will follow-up with social work recommendations Continue BiPAP therapy for at least 6 hours/day at 16/8, and FiO2 of 30% Continue ceftriaxone and AZithromycin pending sputum culture results Continue Trelegy 100 inhaler along with DuoNebs 4 times daily as needed Prednisone 40 mg daily x 5 days # Thank you for involving pulmonary in this patient care. Will continue to follow.
--- NOTE | 2025-06-15 09:44 | XR_ITS ---
FINAL REPORT TECHNIQUE: Single view chest CLINICAL HISTORY: PNM COMPARISON: 06/02/2025 FINDINGS: A single view of the chest was obtained. The heart and mediastinum are within normal limits. Small, rounded medial right upper lobe opacity has not significantly changed. There is worsening right base airspace disease which could be pneumonia. There is no pneumothorax. IMPRESSION: Worsening right base opacity which may resent pneumonia. Stable, rounded right upper lobe opacity. Neoplasm not excluded. Reviewed, Interpreted and Dictated by Elle Mackay MD Transcribed by Elizabeth Cifuentes Authenticated and . [facility]
--- NOTE | 2025-06-15 10:28 | P.PN_ITS ---
<Statement entered by Sulaiman Butt MD - 06/22/25 15:54> Agree with plan of care as outlined by the COMMUNICATIONS COORDINATOR. Subjective *Date: 06/15/25 *Time: 14:42 Interval history: Patient doing well this morning, worked with physical therapy who recommended patient would benefit from rehab facility. Patient is agreeable at this time. Pulmonology consulted, recommends continuing antibiotics and following sputum culture results. Patient scheduled for outpatient bron on Saturday for biopsy of lung mass. Patient is stable on 3 L nasal cannula. Medical Exam Vital signs and Labs for Last 24 Hours: Vital Signs Temp Pulse Pulse Resp BP Pulse Ox O2 Del Method 06/15/25 09:00 Nasal Cannula 06/15/25 08:45 83 06/15/25 08:00 80 06/15/25 08:00 Nasal Cannula 06/15/25 08:00 97.4 F L 82 16 151/75 H 94 L Nasal Cannula 06/15/25 06:12 Nasal Cannula 06/15/25 05:00 BiPAP 06/15/25 04:00 97.5 F L 78 17 172/82 H 95 Nasal Cannula 06/15/25 04:00 60 06/15/25 03:00 BiPAP 06/15/25 02:42 06/15/25 01:00 BiPAP 06/15/25 00:00 70 06/15/25 00:00 97.2 F L 79 18 147/67 H 96 BiPAP 06/14/25 23:00 BiPAP 06/14/25 22:13 06/14/25 21:00 Nasal Cannula 06/14/25 20:00 Nasal Cannula 06/14/25 20:00 90 06/14/25 20:00 98.0 F 90 18 178/69 H 94 L Nasal Cannula 06/14/25 19:00 Nasal Cannula 06/14/25 17:00 Nasal Cannula 06/14/25 16:00 98.0 F 92 H 15 171/81 H 90 L Nasal Cannula 06/14/25 14:43 Nasal Cannula 06/14/25 14:00 89 20 157/74 H 93 L Nasal Cannula 06/14/25 13:12 78 18 06/14/25 13:00 Nasal Cannula 06/14/25 12:00 80 06/14/25 11:50 86 23 145/72 H 98 Nasal Cannula 06/14/25 10:58 Nasal Cannula O2 Flow Rate FiO2 06/15/25 09:00 3 06/15/25 08:45 06/15/25 08:00 06/15/25 08:00 3 06/15/25 08:00 2 06/15/25 06:12 3 06/15/25 05:00 06/15/25 04:00 3 06/15/25 04:00 06/15/25 03:00 06/15/25 02:42 30 06/15/25 01:00 06/15/25 00:00 06/15/25 00:00 06/14/25 23:00 06/14/25 22:13 30 06/14/25 21:00 3 06/14/25 20:00 06/14/25 20:00 06/14/25 20:00 3 06/14/25 19:00 3 06/14/25 17:00 3 06/14/25 16:00 3 06/14/25 14:43 2 06/14/25 14:00 2 06/14/25 13:12 06/14/25 13:00 2 06/14/25 12:00 06/14/25 11:50 2 06/14/25 10:58 2 Intake and Output 06/14/25 06/15/25 06/15/25 23:59 07:59 15:59 Intake Total 500 / 1510 240 / 600 360 / 600 Output Total 300 / 2275 400 / 400 Balance 200 / -765 -160 / 200 360 / 200 Intake: Intake, Oral Amount 200 / 860 240 / 600 360 / 600 Intake, Total IV Amount 300 / 650 Azithromycin 500 mg In 0.9 % 250 / 250 Sodium Chloride 250 ml @ 250 mls/hr IV Q24H VICENTE Rx#:[id number] Ceftriaxone 1 gm 1 gm In 0.9 % 50 / 50 Sodium Chloride 50 ml @ 100 mls /hr IV Q24H VICENTE Rx#:[id number] Output: Output, Urine Amount 300 / 2275 400 / 400 Other: Number of Unmeasured Voids 1 0 Weight 66.224 kg 64.002 kg Patient Weight 06/15/25 23:59 Weight 64.002 kg Laboratory Results - last 24 hr 06/15/25 05:40: WBC 11.6 H D, RBC 3.13 L, Hgb 8.8 L, Hct 28.3 L, MCV 90.4, MCH 28.1, MCHC 31.1 L, RDW 14.0, Plt Count 232, MPV 9.2, Neut % (Auto) 85.4 H, Lymph % (Auto) 9.6 L, Dyer % (Auto) 4.1, Eos % (Auto) 0.0 L, Baso % (Auto) 0.2, Neut # (Auto) 9.9 H, Lymph # (Auto) 1.1, Dyer # (Auto) 0.5, Eos # (Auto) 0.0, Baso # (Auto) 0.0, Sodium 136, Potassium 4.2, Chloride 88 L, Carbon Dioxide 43 H*, Anion Gap 9.2, BUN 20 H D, Creatinine 0.70, Estimated Creat Clear 53, Estimated GFR 83, Est GFR ( Amer) 100, Glucose 128 H, Calcium 8.9, Magnesium 1.7, Total Bilirubin 0.2, AST 30 D, ALT 14, Alkaline Phosphatase 48, Total Protein 5.9 L, Albumin 3.3 L D, Globulin 2.6, Albumin/Globulin Ratio 1.3 I & O for Labs for Last 24 Hours: Intake & Output 06/12/25 06/13/25 06/14/25 06/15/25 23:59 23:59 23:59 23:59 Intake Total 1270 / 1510 600 / 600 Output Total 2275 / 2275 400 / 400 Balance -1005 / -765 200 / 200 Weight 61.235 kg 66.224 kg 64.002 kg Microbiology Reports for the Last 24 Hours: Microbiology 06/13/25 23:29 Blood Blood Culture - Preliminary NO GROWTH AFTER 24 HOURS 06/13/25 23:25 Blood Blood Culture - Preliminary NO GROWTH AFTER 24 HOURS 06/14/25 13:15 Sputum - Expectorated Sputum Gram Stain - Final Constitutional: Present mild distress, average body habitus, chronically ill appearing and cooperative Head: Present atraumatic and normocephalic ENT: Present normal exam Neck: Present normal inspection Respiratory: Present prolonged expiratory phase, rhonchi, wheezes, diminished air movement and normal respiratory effort; Absent crackles Cardiac: Present Reg Rate and Rhythm, Regular Rate and No Murmur GI: Present soft and normal bowel sounds; Absent distention or tenderness Rectal (female): Present deferred (female): Present deferred Extremities: Present normal inspection and full ROM; Absent tenderness Skin: Present intact and dry; Absent erythema Neuro: Present Grossly Intact, alert, awake, oriented x 3 and moves all extremities Assessment and Plan *Assessment and plan (1) Acute exacerbation of chronic obstructive pulmonary disease: Status: Acute Category: Medical Code(s): J44.1 - Chronic obstructive pulmonary disease with (acute) exacerbation (2) Respiratory failure with hypoxia and hypercapnia: Status: Acute Qualifiers: Chronicity: acute on chronic Qualified Code(s): J96.21 - Acute and chronic respiratory failure with hypoxia; J96.22 - Acute and chronic respiratory failure with hypercapnia Category: Medical Code(s): J96.91 - Respiratory failure, unspecified with hypoxia; J96.92 - Respiratory failure, unspecified with hypercapnia (3) Sepsis: Status: Acute Qualifiers: Acute respiratory failure type: with hypercapnia Sepsis acute organ dysfunction status: with acute organ dysfunction Sepsis type: sepsis due to unspecified organism Severe sepsis acute organ dysfunction type: acute respiratory failure Severe sepsis shock status: without septic shock Qualified Code(s): A41.9 - Sepsis, unspecified organism; R65.20 - Severe sepsis without septic shock; J96.02 - Acute respiratory failure with hypercapnia Category: Medical Code(s): A41.9 - Sepsis, unspecified organism (4) Acute on chronic heart failure with preserved ejection fraction (HFpEF): Status: Acute Category: Medical Code(s): I50.33 - Acute on chronic diastolic (congestive) heart failure (5) HTN (hypertension): Status: Acute Qualifiers: Hypertension type: primary hypertension Qualified Code(s): I10 - Essential (primary) hypertension Category: Medical Code(s): I10 - Essential (primary) hypertension (6) Lesion of lung: Status: Acute Category: Medical Code(s): R91.1 - Solitary pulmonary nodule (7) COPD (chronic obstructive pulmonary disease): Status: Acute Qualifiers: COPD type: COPD with acute exacerbation Qualified Code(s): J44.1 - Chronic obstructive pulmonary disease with (acute) exacerbation Category: Medical Code(s): J44.9 - Chronic obstructive pulmonary disease, unspecified (8) Paroxysmal atrial fibrillation: Status: Acute Category: Medical Code(s): I48.0 - Paroxysmal atrial fibrillation (9) Acute and chronic respiratory failure with hypercapnia: Status: Acute Category: Medical Code(s): J96.22 - Acute and chronic respiratory failure with hypercapnia (10) Tobacco dependence: Status: Acute Category: Medical Code(s): F17.200 - Nicotine dependence, unspecified, uncomplicated (11) Chronic anticoagulation: Status: Acute Category: Medical Code(s): Z79.01 - assisted (current) use of anticoagulants (12) Acute on chronic anemia: Status: Acute Category: Medical Code(s): D64.9 - Anemia, unspecified Plan Ms. Balbuena is a 70-year-old female who is well-known to our service and has a past medical history of chronic respiratory failure with hypoxia and hypercapnia, HFpEF, HLD, HTN, CAD, tobacco use disorder, COPD with supplemental oxygen?BiPAP at night, known right lung mass, A-fib, DDD. She presented to the emergency department yesterday with complaints of dyspnea. She stated she has been feeling worse over the past 2 to 3 days. Initial workup was significant for temperature 100.3, tachycardia to the 120s, O2 saturation initially low but improved with supplemental oxygen. Per EMS when reporting to the patient's home she states she had been turning her oxygen up but the oxygen in fact was not turned on at all. Lung sounds were notable for wheezing and prolonged expiratory phase bilaterally, pitting edema noted bilateral lower extremities as well. In the ED patient was given DuoNeb, Solu-Medrol, magnesium IV and placed on BiPAP. Initial VBG significant for pH 7.30, pCO2 74, lactic acid 3.2, BNP 877. Lab work was significant for mild leukocytosis, anemia, elevated lactic, negative troponin. Full respiratory panel obtained and was negative, chest x- ray suggestive of emphysematous changes, right mid to upper lobe opacity. Patient was initiated on azithromycin and ceftriaxone IV. EKG showed sinus tach. Hospital medicine was consulted for admission, and agreed to admit the patient. Plan of care as follows: #Acute on chronic respiratory failure with hypercapnia and hypoxia #Acute on chronic COPD exacerbation #Sepsis ? Patient was admitted to the medical surgical floor for acute on chronic respiratory failure/COPD exacerbation/HFpEF exacerbation. Patient was initially given Bumex 1 mg due to bilateral lower extremity pitting edema. Patient states she is compliant with her BiPAP and wears it nightly. Repeat ABG yesterday showed pH 7.4, pCO2 57.4. Significantly improved from admission. Patient was feeling well this morning, on baseline O2, endorses wearing BiPAP last night. Lungs significant for expiratory wheezing. Incentive spirometer ordered. ? Patient met sepsis criteria with WBC of 14, tachypnea RR 25?30, tachycardia HR 100?1 20s, febrile at 100.3. Patient was recently admitted to our service and treated for a UTI, culture suggestive of contamination. Patient received Rocephin IV during admission discharged home on cefdinir 300 mg twice daily x 5 days. Repeat UA obtained and negative for UTI.. Blood cultures obtained and showed no growth after 24 hours. IV fluids held due to underlying CHF and edema. Patient initiated on azithromycin and Rocephin IV daily. DuoNebs every 6 hours scheduled. Patient initially given Solu-Medrol 40 mg every 12 hours IV, transitioned today to prednisone 40 mg daily per pulmonology's recommendation. Additionally will add Trelegy 100 daily. BiPAP while resting, continuous O2 2-3 L while awake. Goal O2 greater than 90%. ?Additionally patient's previous sputum culture in 04/2025 was positive for Methylin resistant Staphylococcus, sensitive to gentamicin, rifampin, vancomycin. Patient current sputum culture pending, Gram stain shows many gram- positive cocci in clusters, will order vancomycin, dosed by pharmacy for MRSA coverage. Continue to follow culture speciation and sensitivity. ? Pulmonology consulted for further recommendations. Discussed patient with pulmonology who recommend holding Eliquis at this time due to bronchoscopy scheduled for Saturday, continue BiPAP for at least 6 hours/day at 16/8, and FiO2 of 30%. Continue to follow sputum culture results. ? WBC trending downward to 11.6, no electrolyte abnormalities, normal kidney function. WBC slightly more elevated today at 16.1, likely in the setting of steroids. CBC, CMP, magnesium ordered for the a.m. #HFpEF #HLD/HTN #Paroxysmal atrial fibrillation ? Patient has known heart failure with EF of 56% 05/2025. Bilateral lower extremity edema notable at 1+ pitting on admission, resolved to trace edema bilaterally today. Patient received Bumex 1 mg IV on admission, continued Bumex 1 mg daily. Lung sounds significant for prolonged expiratory phase and wheezing. BNP 877 on admission. ? Continued home cardiac medications of: Bumex 1 mg daily, carvedilol 25 mg twice daily, digoxin 125 mcg daily, losartan 100 mg daily. Patient has known paroxysmal A-fib, appears to be in sinus rhythm, continuous cardiac telemetry ordered. Patient initially tachycardic, heart rate improved to 90s. Holding Eliquis 5 mg twice daily at this time for bronchoscopy procedure on Saturday. ? Close monitoring for urinary output and edema. #Acute on chronic anemia ? Patient has known acute on chronic anemia, she is on long-term anticoagulation with Eliquis 5 mg twice daily. Initial hemoglobin 10.0 on admission, 8.8 this morning. Will continue to trend daily. Threshold to transfuse less than 7. #Generalized weakness: Patient was seen by PT/OT for evaluation, patient able to stand with walker assistance but unable to ambulate at this time. Recommendations for rehab placement were made, patient is agreeable at this time. Tiana Sandhu, social work currently working on arrangements for possible placement options. Full code Ambulate as tolerated, PT/OT ordered Diet?cardiac diet VTE?SCDs
--- NOTE | 2025-06-15 10:40 | SW/DCPLANNER ---
Addendum entered by Tiana Sandhu 06/16/25 13:37: Patient has been approved SNF level of care. Daughter is agreeable to transport and will provide portable O2 and bi pap machine. Addendum entered by Tiana Sandhu 06/15/25 13:27: Per Olman alexander/ [facility] they are willing to accept this patient and will start auth today. Olman has requested that bronch/biopsy be postponed x2 weeks due to rehab. I will make contact w/ Pulm. Addendum entered by Tiana Sandhu 06/15/25 13:11: Olman alexander/ [facility]avi is currently reviewing patient information. Original Note: I spoke w/ patient regarding plans once medically stable for discharge. PT evaluated patient and recommended placement. OT has been ordered. Patient currently resides at home w/ son and daughter. Patient is agreeable to placement at [facility] at this time. Per Olman alexander/ [facility]onda Rodrigues he does have a female bed and does accept patient's insurance. Patient information will be faxed to [facility] this AM. Per provider Torie Rosas patient is medically stable for discharge at this time. I will fax patient information and continue to follow up.
--- NOTE | 2025-06-15 11:22 | DIET.NUTRFU ---
RD consulted for diet instruction- patient has hx of COPD and on a cardiac diet. Handouts were reviewed and pout in folder for discharge. She plans on discharging today, foster care social worker helping with placement. Patient reports she has a fair appetite at home, son helps with meals. She said intake depends on what he cooks. Consumed eggs/toast and larose this AM. She is ordered ensure with her trays, was sipping on it during visit. She reports she consumes 1-2/day at home and a electrolyte drink daily. She reports stable weight and has not other dietary concerns.
--- NOTE | 2025-06-15 12:13 | HMH.PTEV ---
Physical Therapy Evaluation Rehab PT IP Evaluation Start: 06/14/25 01:33 Freq: ONCE Status: Active Protocol: Document 06/15/25 10:00 HIRO (Rec: 06/15/25 12:13 PHORWALKER [id number]) Subjective/History History History 70-year-old female past medical history significant for coronary artery disease, acute on chronic respiratory failure with hypercapnia, O2 dependent at 3 L/BiPAP nightly, lung mass, COPD, cervical cancer, hypertension , hyperlipidemia, A-fib on Eliquis and heart failure. Presents to [facility] ED with complaint of of shortness of breath. Reports symptom onset today, that progressed quickly. Due to shortness of breath patient unable to provide complete history. History obtained per chart review and staff. Nunu presented with respiratory distress on arrival to ED. Noted wheezing, febrile low grade fever 100.3 ?F, tachycardic. Bilateral lower extremity pitting edema. Received 1 Neb treatment, 1.5 Solu-Medrol en route per EMS. ED arrival, received 2 additional Nebs, 2 g magnesium and placed on BiPAP. Chest x-ray obtained noted emphysematous changes, obesity right upper mid lung. Presumed underlying pneumonia with presenting symptoms tachycardia, febrile, elevated WBC. IV Rocephin and azithromycin initiated in ED. After initial ED treatment noted improvement with respiratory distress. Recent admission on 06/02, diagnosed with COPD exacerbation and also found to have urinary tract infection, urine with leuk esterase and bacteria. Patient given ceftriaxone IV during that admission. Discharged home with cefdinir 300 mg twice daily x 5 days. Culture obtained and resulted after discharge with multiple organisms, suggestive of contamination. Hospital medicine consulted for admission. Subjective Subjective Pt reports she lives with her son, 4 ELIGIO the home, and she is generally independent with all mobility using cane or walker. She reports she has a wheelchair somewhere , but has difficulty finding it. She uses Oxygen via NC at all times at baseline. Pt agrees to stand at bedside, but adamantly refused to attempt ambulation at this time. [facility] How much help from another person do you currently need... Turning from your None back to your side while in a flat bed without using bedrails? Moving from lying on None back to sitting on the side of a flat bed without using bedrails? Moving to and from a A little bed to a chair ( including a wheelchair)? Standing up from a A little chair using your arms? (e.g., wheelchair, bedside chair) Walking in hospital A lot room? Climbing 3-5 steps A lot with a railing? Mobility Score 18 Mobility Level [facility] Mobility 6 Walk 10 steps or more Mobility Calculator Rehab PT IP Eval Objective Appearance Patient Behavior Appropriate Patient Orientation Person,Place,Time Difficulty following none instructions Speech Pattern Clear Balance Ability to Arise Able, uses arms to help Sitting Balance Steady, safe Standing Balance Steady, wide stance Dynamic Sitting Fair Balance Ability Dynamic Standing Poor Balance Ability Transfers Bed Transfer Ability Supervision/Stand by Chair Transfer Minimal x 1 (25% assist) Ability Sit to Stand Bed Minimal x 1 (25% assist) Transfer Ability Sit to Stand Chair Minimal x 1 (25% assist) Transfer Ability Rehab PT IP prob,goals,plan Problems Date of Evaluation: 06/15/25 PT IP Problems Bed Mobility,Transfers,Gait,Self care Rehab Potential Rehab Potential Fair Plan PT Intervention Plan Bed Mobility,Transfers,Gait,Self care,Therapeutic Exercise PT Plan Frequency Daily Duration LOS Discharge Goals Bed Transfer Ability Independent Sit to Stand Chair Contact Guard/Hand Hold Transfer Ability Ambulation Assistive Rolling Walker Device Ambulation Distance 20 (feet) Discharge Plan PT Discharge Plan Pt is currently most appropriate for rehab placement once medically stable for d/c. She may be able to return home if she meets all goals for therapy services . Skilled therapy is indicated to increase general strength, improve transfers, and increase ambulation ability in order to return pt to [facility] and improve QOL. Eval Complexity Eval Charge Codes 43721 - High Complexity PHYSICIAN CERTIFICATION: I certify the specified therapy services for Iqra Balbuena are required, authorized, and reviewed every 30 days.
--- NOTE | 2025-06-15 13:44 | HMH.OTEV ---
OT Evaluation Rehab OT IP Evaluation Start: 06/15/25 10:05 Freq: ONCE Status: Active Protocol: Document 06/15/25 13:36 [facility] (Rec: 06/15/25 13:44 [facility] [id number]) Rehab OT IP Assessment Subjective History 70-year-old female past medical history significant for coronary artery disease, acute on chronic respiratory failure with hypercapnia, O2 dependent at 3 L/BiPAP nightly, lung mass, COPD, cervical cancer, hypertension , hyperlipidemia, A-fib on Eliquis and heart failure. Presents to [facility] ED with complaint of of shortness of breath. Reports symptom onset today, that progressed quickly. Due to shortness of breath patient unable to provide complete history. History obtained per chart review and staff. Nunu presented with respiratory distress on arrival to ED. Noted wheezing, febrile low grade fever 100.3 ?F, tachycardic. Bilateral lower extremity pitting edema. Received 1 Neb treatment, 1.5 Solu-Medrol en route per EMS. ED arrival, received 2 additional Nebs, 2 g magnesium and placed on BiPAP. Chest x-ray obtained noted emphysematous changes, obesity right upper mid lung. Presumed underlying pneumonia with presenting symptoms tachycardia, febrile, elevated WBC. IV Rocephin and azithromycin initiated in ED. After initial ED treatment noted improvement with respiratory distress. Recent admission on 06/02, diagnosed with COPD exacerbation and also found to have urinary tract infection, urine with leuk esterase and bacteria. Patient given ceftriaxone IV during that admission. Discharged home with cefdinir 300 mg twice daily x 5 days. Culture obtained and resulted after discharge with multiple organisms, suggestive of contamination. Hospital medicine consulted for admission. Subjective Pt oriented x 2 on arrival. Pt agreeable to engage in therapy evaluation after max verbal cues for encouragement. Pt reports prior to being in the hospital she was living with her son and daughter. Pt claims she is normally independent with feeding and dressing. Her daughter does assist with bathing for safety concerns. Pt does transfer using rolling walker . Pt reports she is dependent upon family for completion of all IADLs. Pt no longer drives. Pt does wear o2 at all times. Objective Patient Orientation Person,Place,Name Right Upper Min Limitation <25% Extremity Gross ROM Left Upper Extremity Min Limitation <25% Gross ROM Shoulder ROM Muscle Weakness Limitations Elbow ROM Muscle Weakness Limitations Wrist Limitations of Muscle Weakness Range of Motion Bed Mobility bed mobility-scooting,bed mobility - supine/sit Assist Level Contact Guard/Hand Hold Rehab OT IP prob,goals,plan Problems Date of Evaluation: 06/15/25 OT IP Problems Bed Mobility,Transfers,Balance,Self care,Safety Rehab Potential Rehab Potential Good Equipment Needs Assistive Devices Rolling / Wheeled Walker Plan OT intervention Plan Bed Mobility,Transfers,Balance,Self care,Safety, Therapeutic Exercise OT Plan Frequency Daily Duration LOS Discharge Goals Bed Mobility Ability Standby Assistance Sit to Stand Chair Supervision/Stand by Transfer Ability Chair Transfer Contact Guard/Hand Hold,Minimal x 1 (25% assist) Ability Chair Transfer Sit to/from Ambulatory Technique Chair Transfer Rolling Walker Assistive Devices Lower Body Dressing Moderate Assistance Ability Upper Body Dressing Standby Assistance Ability Performing Toilet Minimal Assistance Hygiene Ability Overall Commode/ Minimal Assistance Toilet Transfer Ability Commode/Toilet Sit to/from Ambulatory Transfer Technique Discharge Plan OT Discharge Plan Pt will continue to be seen for OT services while at [facility]. Pt would benefit from short term rehab at SNF following discharge from hospital. If pt is reluctant to this plan, therapist would recommend / assist from family and HH OT evaluation for continued skilled therapy. Continued skilled therapy is important in order for patient to improve strength, safety, endurance, ADL independence, and functional transfers to reach PLOF. Eval Complexity Eval Charge Codes 77235 - Moderate Complexity PHYSICIAN CERTIFICATION: I certify the specified therapy services for Iqra Balbuena are required, authorized, and reviewed every 30 days.
--- NOTE | 2025-06-15 14:50 | EXP.PHA.CONS ---
Pharmacy Consult Date: 06/15/25 Time: 14:50 Referring provider: Jesus Alberto ROSAS Reason for Consult:: VANCOMYCIN DOSING Allergies Allergy/AdvReac Type Severity Reaction Status Date / Time No Known Allergies Allergy Verified 05/19/25 09:56 Home Medications ?Medication ?Instructions ?Recorded ?Confirmed ?Type montelukast 10 mg tablet 10 mg PO HS 04/15/24 06/14/25 History apixaban 5 mg tablet (Eliquis) 5 mg PO BID 01/28/25 06/14/25 History losartan 100 mg tablet 100 mg PO DAILY 01/28/25 06/14/25 History alprazolam 1 mg tablet 1 mg PO BID 03/01/25 06/14/25 History gabapentin 800 mg tablet 800 mg PO TID 03/20/25 06/14/25 History hydrocodone 10 mg-acetaminophen 1 tab PO QID 10/325MG 03/20/25 06/14/25 History 325 mg tablet bumetanide 1 mg tablet 1 mg PO DAILY #30 tabs 03/21/25 06/14/25 Rx carvedilol 25 mg tablet 25 mg PO BID 30 days #60 tabs 03/21/25 06/14/25 Rx cholecalciferol (vitamin D3) 1,250 50,000 unit PO WEEKLY 03/24/25 06/14/25 History mcg (50,000 unit) capsule sennosides 8.6 mg-docusate sodium 1 tab PO BID PRN Constipation 10 04/16/25 06/14/25 Rx 50 mg tablet (Stimulant Laxative days #20 tabs Plus) nicotine 7 mg/24 hr daily 1 patch transdermal Q24H #28 ea 05/11/25 06/14/25 Rx transdermal patch albuterol sulfate 90 mcg/actuation 1 inh inhalation Q6H 5 days #6.7 06/02/25 06/14/25 Rx aerosol inhaler (Ventolin HFA) grams magnesium gluconate 27 mg 27 mg PO DAILY 06/02/25 06/14/25 History magnesium (500 mg) tablet azithromycin 250 mg tablet 250 mg PO MOWEFR 06/03/25 06/14/25 History digoxin 125 mcg (0.125 mg) tablet 125 mcg PO DAILY 06/03/25 06/14/25 History New Prescriptions to Start Prescriptions: Height: 1.63 m Weight: 64.002 kg Laboratory Results:: Laboratory Results - last 24 hr 06/15/25 05:40: WBC 11.6 H D, RBC 3.13 L, Hgb 8.8 L, Hct 28.3 L, MCV 90.4, MCH 28.1, MCHC 31.1 L, RDW 14.0, Plt Count 232, MPV 9.2, Neut % (Auto) 85.4 H, Lymph % (Auto) 9.6 L, Clarke % (Auto) 4.1, Eos % (Auto) 0.0 L, Baso % (Auto) 0.2, Neut # (Auto) 9.9 H, Lymph # (Auto) 1.1, Clarke # (Auto) 0.5, Eos # (Auto) 0.0, Baso # (Auto) 0.0, Sodium 136, Potassium 4.2, Chloride 88 L, Carbon Dioxide 43 H*, Anion Gap 9.2, BUN 20 H D, Creatinine 0.70, Estimated Creat Clear 53, Estimated GFR 83, Est GFR ( Amer) 100, Glucose 128 H, Calcium 8.9, Magnesium 1.7, Total Bilirubin 0.2, AST 30 D, ALT 14, Alkaline Phosphatase 48, Total Protein 5.9 L, Albumin 3.3 L D, Globulin 2.6, Albumin/Globulin Ratio 1.3 Medical History: Medical History (Updated 06/15/25 @ 11:16 by Piedad Rosas APRN) Pleuritic chest pain Constipation Pneumonia Hypomagnesemia Wound of right lower extremity Hypercalcemia Sepsis due to pneumonia Preop cardiovascular exam Coronary artery calcification seen on CT scan Tobacco dependence Claudication Acute and chronic respiratory failure with hypercapnia Unspecified disturbances of skin sensation Other specified symptoms and signs involving the circulatory and respiratory systems HTN (hypertension) HLD (hyperlipidemia) Pneumonia Fecal occult blood test positive Sepsis without septic shock Lymphedema Physical deconditioning General weakness Lung mass Hypomagnesemia Acute hypokalemia Chronic hyponatremia Generalized weakness COPD mixed type Lung nodule Hypokalemia Elevated troponin Nocturnal hypoxemia Pulmonary emphysema Incidental pulmonary nodule, greater than or equal to 8mm Smoking greater than 30 pack years Dyspnea on exertion Tobacco abuse disorder Tobacco abuse counseling Cervical cancer Assessment and Plan Assessment and plan all Dx Assessment and Plan for all problems:: Pharmacokinetic dosing service Objective: Patient: Floor: Age: 70 yo Serum creatinine: 0.70 mg/dL Height: 64.2 Inches Weight (kg): 64 Assessment: IBW (kg): 55.16 Dosing wt(kg): 64 Estimated Creatinine clearance (ml/min): 65.1 CRCL method: Cockcroft and Gault using ibw(default). Drug selected: Vancomycin Loading dose (mg): Vd (liters): 51.2 (factor used: 0.8 L/kg) Ketan (hr-1): 0.058 Half life (hrs): 11.95 CLvanco=?? 2.970 L/hr Recommended dose: 1250 mg Interval: 18 hrs Infusion time (hrs): 2.0 Predicted peak (mcg/mL): 35.6 Predicted trough (mcg/mL): 14.07 Total body weight is being used for vancomycin dosing. Recommendations: Give Vancomycin 1250 mg q 18 hrs with an expected Cpeak of 35.6 mcg/ml and an expected Ctrough of 14.07 mcg/ml AUC 0-24 /AKI Data: AKI 0.5 mcg/mL:?? AUC/AKI:? 1122.3 AKI 1.0 mcg/mL:?? AUC/AKI:? 561.2 --------- AKI 1.5 mcg/mL:?? AUC/AKI:? 374.1 AKI 2.0 mcg/mL:?? AUC/AKI:? 280.6 Thank you for the consult, will continue to follow. -ERICA ALCAZAR, DESTINYD
[2025-06-15] MEDS: VANCOMYCIN/WATER FOR INJ (PEG) 1.25 GM/250 ML PIGGYBACK IV (15:56)
[2025-06-15] MEDS: CEFTRIAXONE 1 GM 1 GM in 0.9 % SODIUM CHLORIDE 50 ML IV (20:27)
[2025-06-15] MEDS: MONTELUKAST SODIUM 10MG TAB 10 MG PO (20:27)
[2025-06-15] MEDS: AZITHROMYCIN 500 MG in 0.9 % SODIUM CHLORIDE 250 ML 250 MG IV (21:06)
[2025-06-16] VITALS: BP 162/67; PULSE 70; PULSE 72; RESP 18; TEMP 36.4; O2SAT 96
[2025-06-16 04:00] VITALS: BP 171/71; PULSE 70; PULSE 72; RESP 16; TEMP 36.5; O2SAT 97; BMI 24.7
[2025-06-16] MEDS: IPRATROPIUM/ALBUTEROL 3 ML NEB IH ×3 (04:48→16:15)
[2025-06-16 04:53] VITALS: PULSE 75; O2SAT 99
[2025-06-16] MEDS: FLUTICASONE/UMECLIDIN/VILANTER 100/62.5/25MCG INHALER 1 PUFF IH (04:53)
[2025-06-16 06:21] LABS: Hematocrit 28.3 % (37.0-47.0); Hemoglobin 8.9 g/dL (12.2-16.2); Immature Granulocytes % 0.5 %; Mean Corpuscular HGB Conc 31.4 g/dL (31.8-35.4); Mean Corpuscular Hemoglobin 28.7 pg (27.0-31.2); Mean Corpuscular Volume 91.3 fl (81-99); Nucleated Red Blood Cells % 0 %; Platelet Count 245 K/mm3 (142-424); Red Blood Count 3.10 M/mm3 (4.20-5.40); Red Cell Distribution Width-SD 47.2 fL; White Blood Count 12.8 K/mm3 (4.8-10.8)
[2025-06-16 06:50] LABS: Albumin Level 3.5 g/dl (3.5-5.0); Chloride 86 mmol/L (98-107); Sodium 134 mmol/L (136-145)
[2025-06-16 06:51] LABS: Potassium 3.9 mmoL/L (3.5-5.1)
[2025-06-16 06:53] LABS: Alanine Aminotransferase 13 U/L (12-78); Albumin/Globulin Ratio 1.4 (1.1-1.8); Alkaline Phosphatase 44 U/L (38-126); Aspartate Amino Transferase 17 U/L (14-36); Blood Urea Nitrogen 26 mg/dl (7-17); Creatinine Clearance Estimated 54 mL/min (50-200); Creatinine,Serum 0.80 mg/dl (0.52-1.04); Estimated Glomerular Filt Rate 71 ml/min (>60); GFR (African American) 86 ML/MIN (>60); Globulin 2.5 g/dL (1.3-3.2); Total Protein,Serum 6.0 g/dl (6.3-8.2)
[2025-06-16 06:54] LABS: Calcium 9.1 mg/dl (8.4-10.2); Glucose 108 mg/dl (74-100)
[2025-06-16 07:01] LABS: Anion Gap 12.9 mEq/L (5-15); Carbon Dioxide 39 mmol/L (22.0-30.0)
[2025-06-16 07:06] LABS: Bilirubin,Total < 0.1 mg/dl (0.2-1.3)
[2025-06-16 08:00] VITALS: BP 163/65; PULSE 80; RESP 18; TEMP 36.8; O2SAT 95
--- NOTE | 2025-06-16 09:01 | HMH.PHAAMS2 ---
- Antimicrobial Stewardship Review culture & sensitivity review Stewardship interventions: culture & sensitivity review (PATIENT ON VANCO, ROCEPHIN, AND AZITH FOR PNA. WBC DECREASED FROM 16.1K TO 12.8K. AFEBRILE. NO GROWTH IN BLD AND SPUTUM, URINE PENDING.)
[2025-06-16] MEDS: DIGOXIN 0.125MG TABLET 125 MCG PO (09:22)
[2025-06-16] MEDS: HYDROCODONE 10MG/APAP 325MG TAB 1 TAB PO (09:22)
[2025-06-16] MEDS: IRBESARTAN 150MG TAB 150 MG PO (09:22)
[2025-06-16] MEDS: CARVEDILOL 25MG TABLET 25 MG PO (09:22)
[2025-06-16] MEDS: BUMETANIDE 1 MG TABLET PO (09:23)
[2025-06-16] MEDS: VANCOMYCIN/WATER FOR INJ (PEG) 1.25 GM/250 ML PIGGYBACK IV (09:27)
[2025-06-16 12:00] VITALS: PULSE 70
--- NOTE | 2025-06-16 12:54 | P.DS_ITS ---
<Statement entered by Sulaiman Butt MD - 06/22/25 15:53> Agree with plan of care as outlined by the [employer] ASSOCIATE. General Admission date:: 06/14/25 Discharge date: 06/16/25 HPI HPI HPI: Iqra Balbuena is a 70-year-old female past medical history significant for coronary artery disease, acute on chronic respiratory failure with hypercapnia, O2 dependent at 3 L/BiPAP nightly, lung mass, COPD, cervical cancer, hypertension, hyperlipidemia, A-fib on Eliquis and heart failure. Presents to [facility] ED with complaint of of shortness of breath. Reports symptom onset today, that progressed quickly. Due to shortness of breath patient unable to provide complete history. History obtained per chart review and staff. Nunu presented with respiratory distress on arrival to ED. Noted wheezing, febrile low grade fever 100.3 ?F, tachycardic. Bilateral lower extremity pitting edema. Received 1 Neb treatment, 1.5 Solu-Medrol en route per EMS. ED arrival, received 2 additional Nebs, 2 g magnesium and placed on BiPAP. Chest x-ray obtained noted emphysematous changes, obesity right upper mid lung. Presumed underlying pneumonia with presenting symptoms tachycardia, febrile, el evated WBC. IV Rocephin and azithromycin initiated in ED. After initial ED treatment noted improvement with respiratory distress. Recent admission on 06/02, diagnosed with COPD exacerbation and also found to have urinary tract infection, urine with leuk esterase and bacteria. Patient given ceftriaxone IV during that admission. Discharged home with cefdinir 300 mg twice daily x 5 days. Culture obtained and resulted after discharge with multiple organisms, suggestive of contamination. Hospital medicine consulted for admission. Assessment the patient at bedside, mild acute distress, tachypneic RR 30s, patient endorses improvement from initial ED presentation. Diminished air movement out. Hemodynamically stable. Currently without any complaint or concern. Stepdown unit admission. Initial ED workup included laboratory studies and imaging. Significant laboratory findings included WBC 14.3, VBG pH 7.30, VBG pCO2 74, VBG HCO3 35.8, VBG O2 97, ABG lactic acid 3.2, sodium 131, BNP 877. Full respiratory panel obtained unremarkable. Chest x-ray obtained, I personally reviewed suggestive of stable chest with emphysematous changes, opacity in the right mid to upper lung field corresponding to posterior right upper lobe. Masslike opacity noted in prior CT. Hospital Course Hospital Course Hospital Course: Ms. Balbuena is a 70-year-old female who is well-known to our service and has a past medical history of chronic respiratory failure with hypoxia and hypercapnia, HFpEF, HLD, HTN, CAD, tobacco use disorder, COPD with supplemental oxygen?BiPAP at night, known right lung mass, A-fib, DDD. She presented to the emergency department on Saturday with complaints of dyspnea. She stated she has been feeling worse over the past 2 to 3 days. Initial workup was significant for temperature 100.3, tachycardia to the 120s, O2 saturation initially low but improved with supplemental oxygen. Per EMS when reporting to the patient's home she states she had been turning her oxygen up but the oxygen in fact was not turned on at all. Lung sounds were notable for wheezing and prolonged ex piratory phase bilaterally, pitting edema noted bilateral lower extremities as well. In the ED patient was given DuoNeb, Solu-Medrol, magnesium IV and placed on BiPAP. Initial VBG significant for pH 7.30, pCO2 74, lactic acid 3.2, BNP 877. Lab work was significant for mild leukocytosis, anemia, elevated lactic, negative troponin. Full respiratory panel obtained and was negative, chest x- ray suggestive of emphysematous changes, right mid to upper lobe opacity. Patient was initiated on azithromycin and ceftriaxone IV. EKG showed sinus tach. Hospital medicine was consulted for admission, and agreed to admit the patient. Hospital course as follows: #Acute on chronic respiratory failure with hypercapnia and hypoxia, POA #Acute on chronic COPD exacerbation, POA #Sepsis, resolved ? Patient was admitted to the medical surgical floor for acute on chronic respiratory failure/COPD exacerbation/HFpEF exacerbation. Patient was initially given Bumex 1 mg due to bilateral lower extremity pitting edema. Patient states she is compliant with her BiPAP and wears it nightly. Repeat ABG showed pH 7.4, pCO2 57.4. Significantly improved from admission. Patient was feeling well this morning, on baseline O2, endorses wearing BiPAP last night. Lungs significant for expiratory wheezing. Incentive spirometer ordered. Bilateral lower extremity edema improved. ? Patient met sepsis criteria with WBC of 14, tachypnea RR 25?30, tachycardia HR 100?1 20s, febrile at 100.3. Patient was recently admitted to our service and treated for a UTI, culture suggestive of contamination. Patient received Rocephin IV during admission discharged home on cefdinir 300 mg twice daily x 5 days. Repeat UA obtained and negative for UTI. Blood cultures obtained and showed no growth after 48 hours. IV fluids held due to underlying CHF and edema. Patient initiated on azithromycin and Rocephin IV daily. DuoNebs every 6 hours scheduled. Patient initially given Solu-Medrol 40 mg every 12 hours IV, transitioned today to prednisone 40 mg daily per pulmonology's recommendation. Additionally added Trelegy 100 daily. Patient should continue to wear BiPAP while resting, and continuous O2 2-3 L of nasal cannula while awake, to maintain O2 saturation greater than 90%. ?Additionally patient's previous sputum culture in 04/2025 was positive for MRSA sensitive to gentamicin, rifampin, vancomycin. Patient current sputum culture pending, Gram stain shows many gram-positive cocci in clusters, will order vancomycin, dosed by pharmacy for MRSA coverage. Patient received 2 doses vancomycin IV during admission, will transition to Zyvox 600 mg twice daily x 5 days at discharge. Continue to follow culture speciation and sensitivity. ? Pulmonology consulted for further recommendations. Initially Eliquis was held due to bronchoscopy procedure scheduled for Saturday, procedure rescheduled due to patient illness and transition to [facility] in [place]. Bronchoscopy will be rescheduled for approximately 2 weeks from now. Continue BiPAP for at least 6 hours/day at 16/8, and FiO2 of 30%. ?WBC upon admission was 16.1, day of discharge 12.8. No electrolyte abnormalities, normal kidney function. #HFpEF #HLD/HTN #Paroxysmal atrial fibrillation ? Patient has known heart failure with EF of 56% 05/2025. Bilateral lower extremity edema notable at 1+ pitting on admission, resolved to trace edema bilaterally today. Patient received Bumex 1 mg IV on admission, continued Bumex 1 mg daily p.o. Lung sounds significant for prolonged expiratory phase and wheezing. BNP 877 on admission. ? Continued home cardiac medications of: Bumex 1 mg daily, carvedilol 25 mg twice daily, digoxin 125 mcg daily, losartan 100 mg daily. Patient has known paroxysmal A-fib, appears to be in sinus rhythm, continuous cardiac telemetry ordered. Patient initially tachycardic, heart rate improved to 80s. Continue Eliquis 5 mg twice daily at this time, pulmonology will instruct on when to stop prior to bronchoscopy procedure. #Acute on chronic anemia ? Patient has known acute on chronic anemia, she is on long-term anticoagulation with Eliquis 5 mg twice daily. Initial hemoglobin 10.0 on admission, 8.9 this morning?stable. Patient denies any overt signs of GI bleed, no coffee-ground emesis, no melena, no bright red bleeding per rectum. #Generalized weakness: Patient was seen by PT/OT for evaluation, patient able to stand with walker assistance but unable to ambulate at this time. Recommendations for rehab placement were made, patient is agreeable at this time. [facility] in [place] accepted patient, insurance approved. Patient will be transferred to [facility] for rehab services. Total time spent on discharge 42 minutes in counseling, documentation, chart r eview, and direct care with patient. Exam Data for Last 24 hours Vital signs and Labs for Last 24 Hours: Temp Pulse Resp BP Pulse Ox O2 Del Method O2 Flow Rate 98.3 F 80 18 163/65 H 95 Nasal Cannula 3 06/16/25 08:00 06/16/25 08:00 06/16/25 08:00 06/16/25 08:00 06/16/25 08:00 06/16/25 11:00 06/16/25 11:00 FiO2 30 06/15/25 22:45 Laboratory Results - last 24 hr 06/16/25 05:31: WBC 12.8 H, RBC 3.10 L, Hgb 8.9 L, Hct 28.3 L, MCV 91.3, MCH 28.7, MCHC 31.4 L, RDW 14.3, Plt Count 245, MPV 9.2, Neut % (Auto) 81.7 H, Lymph % (Auto) 13.1, Otero % (Auto) 4.4, Eos % (Auto) 0.1, Baso % (Auto) 0.2, Neut # (Auto) 10.5 H, Lymph # (Auto) 1.7, Otero # (Auto) 0.6, Eos # (Auto) 0.0, Baso # (Auto) 0.0, Sodium 134 L, Potassium 3.9, Chloride 86 L, Carbon Dioxide 39 H, Anion Gap 12.9, BUN 26 H D, Creatinine 0.80, Estimated Creat Clear 54, Estimated GFR 71, Est GFR ( Amer) 86, Glucose 108 H, Calcium 9.1, Total Bilirubin < 0.1 L, AST 17 D, ALT 13, Alkaline Phosphatase 44, Total Protein 6.0 L, Albumin 3.5, Globulin 2.5, Albumin/Globulin Ratio 1.4 I & O for Last 24 hours: Intake & Output 06/13/25 06/14/25 06/15/25 06/16/25 23:59 23:59 23:59 23:59 Intake Total 1270 / 1510 2210 / 2450 970 / 970 Output Total 2275 / 2275 1400 / 1400 1100 / 1100 Balance -1005 / -765 810 / 1050 -130 / -130 Weight 61.235 kg 66.224 kg 64.002 kg 65.816 kg Microbiology Reports for the Last 24 Hours: Microbiology 06/14/25 Unknown Urine,Clean Catch Urine Culture - Final No growth. 06/14/25 13:15 Sputum - Expectorated Sputum Gram Stain - Final 06/14/25 13:15 Sputum - Expectorated Sputum Sputum Culture - Preliminary 06/13/25 23:29 Blood Blood Culture - Preliminary NO GROWTH AFTER 48 HOURS 06/13/25 23:25 Blood Blood Culture - Preliminary NO GROWTH AFTER 48 HOURS Constitutional Constitutional: no acute distress, thin, chronically ill appearing and cooperative *Routine HEENT Exam Head: Present normocephalic Eye: Present EOMI and PERRL ENT: Present mucous membranes moist *Routine Neck Exam Neck: Present supple; Absent lymphadenopathy *Routine Respiratory Exam Respiratory: Present prolonged expiratory phase, wheezes and normal respiratory effort; Absent rhonchi or crackles *Routine Cardiovascular Exam Cardiovascular: Present RRR *Routine Abdominal Exam Abdominal: Present soft and normoactive bowel sounds; Absent tenderness *Routine Rectal Exam Patient deferred: visual exam *Routine Exam Patient deferred: external exam *Routine Extremities Exam Extremities: Absent cyanosis, clubbing or edema *Routine Skin Exam Skin: Present intact and warm; Absent rash *Routine Neurological Exam Neurological: Present alert, oriented X3 and moving all extremities; Absent altered mental status Results Data Completed and Pending Labs on day of discharge: Labs from last 24 hours 06/16/25 05:31 WBC 12.8 H RBC 3.10 L Hgb 8.9 L Hct 28.3 L MCV 91.3 MCH 28.7 MCHC 31.4 L RDW 14.3 Plt Count 245 MPV 9.2 Neut % (Auto) 81.7 H Lymph % (Auto) 13.1 Otero % (Auto) 4.4 Eos % (Auto) 0.1 Baso % (Auto) 0.2 Neut # (Auto) 10.5 H Lymph # (Auto) 1.7 Otero # (Auto) 0.6 Eos # (Auto) 0.0 Baso # (Auto) 0.0 Sodium 134 L Potassium 3.9 Chloride 86 L Carbon Dioxide 39 H Anion Gap 12.9 BUN 26 H D Creatinine 0.80 Estimated Creat Clear 54 Estimated GFR 71 Est GFR ( Amer) 86 Glucose 108 H Calcium 9.1 Total Bilirubin < 0.1 L AST 17 D ALT 13 Alkaline Phosphatase 44 Total Protein 6.0 L Albumin 3.5 Globulin 2.5 Albumin/Globulin Ratio 1.4 Preliminary micro results at discharge 06/14/25 13:15 Sputum Culture - Preliminary Sputum - Expectorated Sputum 06/13/25 23:29 Blood Culture - Preliminary Blood NO GROWTH AFTER 48 HOURS 06/13/25 23:25 Blood Culture - Preliminary Blood NO GROWTH AFTER 48 HOURS DS: Diagnosis Discharge Diagnosis (1) Acute exacerbation of chronic obstructive pulmonary disease: Status: Acute Code(s): J44.1 - Chronic obstructive pulmonary disease with (acute) exacerbation (2) Respiratory failure with hypoxia and hypercapnia: Status: Acute Code(s): J96.91 - Respiratory failure, unspecified with hypoxia; J96.92 - Respiratory failure, unspecified with hypercapnia Qualifiers: Chronicity: acute on chronic Qualified Code(s): J96.21 - Acute and chronic respiratory failure with hypoxia; J96.22 - Acute and chronic respiratory failure with hypercapnia (3) Sepsis: Status: Acute Code(s): A41.9 - Sepsis, unspecified organism Qualifiers: Acute respiratory failure type: with hypercapnia Sepsis acute organ dysfunction status: with acute organ dysfunction Sepsis type: sepsis due to unspecified organism Severe sepsis acute organ dysfunction type: acute respiratory failure Severe sepsis shock status: without septic shock Qualified Code(s): A41.9 - Sepsis, unspecified organism; R65.20 - Severe sepsis without septic shock; J96.02 - Acute respiratory failure with hypercapnia (4) Acute on chronic heart failure with preserved ejection fraction (HFpEF): Status: Acute Code(s): I50.33 - Acute on chronic diastolic (congestive) heart failure (5) HTN (hypertension): Status: Acute Code(s): I10 - Essential (primary) hypertension Qualifiers: Hypertension type: primary hypertension Qualified Code(s): I10 - Essential (primary) hypertension (6) Lesion of lung: Status: Acute Code(s): R91.1 - Solitary pulmonary nodule (7) COPD (chronic obstructive pulmonary disease): Status: Acute Code(s): J44.9 - Chronic obstructive pulmonary disease, unspecified Qualifiers: COPD type: COPD with acute exacerbation Qualified Code(s): J44.1 - Chronic obstructive pulmonary disease with (acute) exacerbation (8) Paroxysmal atrial fibrillation: Status: Acute Code(s): I48.0 - Paroxysmal atrial fibrillation (9) Acute and chronic respiratory failure with hypercapnia: Status: Acute Code(s): J96.22 - Acute and chronic respiratory failure with hypercapnia (10) Tobacco dependence: Status: Acute Code(s): F17.200 - Nicotine dependence, unspecified, uncomplicated (11) Chronic anticoagulation: Status: Acute Code(s): Z79.01 - termite helper (current) use of anticoagulants (12) Acute on chronic anemia: Status: Acute Code(s): D64.9 - Anemia, unspecified Meds Home Medications and Allergies Home Medications ?Medication ?Instructions ?Recorded ?Confirmed ?Type montelukast 10 mg tablet 10 mg PO HS 04/15/24 5 History apixaban 5 mg tablet (Eliquis) 5 mg PO BID 01/28/25 History losartan 100 mg tablet 100 mg PO DAILY 01/28/2508/08 History alprazolam 1 mg tablet 1 mg PO BID 03/01/25 5 History gabapentin 800 mg tablet 800 mg PO TID 03/20/2506/14 History bumetanide 1 mg tablet 1 mg PO DAILY #30 tabs 03/2106/14/25 Rx carvedilol 25 mg tablet 25 mg PO BID 30 days #60 tab s 03/21/25 06/14/25 Rx cholecalciferol (vitamin D3) 1,250 50,000 unit PO WEEK LY 03/24/25 06/14/25 History mcg (50,000 unit) capsule sennosides 8.6 mg-docusate sodium 1 tab PO BID PRN Con stipation 10 04/16/25 06/14/25 Rx 50 mg tablet (Stimulant Laxative days #20 tabs Plus) nicotine 7 mg/24 hr daily 1 patch transdermal Q24H #28 ea 05/11/25 06/14/25 Rx transdermal patch albuterol sulfate 90 mcg/actuation 1 inh inhalation Q6 H 5 days #6.7 06/02/25 06/14/25 Rx aerosol inhaler (Ventolin HFA) grams magnesium gluconate 27 mg 27 mg PO DAILY 06/02/2508/08 History magnesium (500 mg) tablet azithromycin 250 mg tablet 250 mg PO MOWEFR 06/03/25 1 08/15/24 History Held on 06/16/25. Instructions: until antibiotic course is complete digoxin 125 mcg (0.125 mg) tablet 125 mcg PO DAILY 06/14/25 History fluticasone fur. 100 mcg-umeclid 1 inh inhalation NGOZI Y 30 days #60 06/16/25 Rx 62.5 mcg-vilant 25 mcg ea inhalat.powder (Trelegy Ellipta) hydrocodone 10 mg-acetaminophen 1 tab PO TIDP PRN aleyda re pain 06/16/25 06/14/25 Rx 325 mg tablet (scale score 7-10) 5 days #0 tabs linezolid 600 mg tablet 600 mg PO Q12H 5 days #10 ta bs 06/16/25 Rx prednisone 20 mg tablet 40 mg (2 x 20 mg) PO DAILY 3 days 06/16/25 Rx #6 tabs New Prescriptions to Start Prescriptions: [id number] [Trelegy Ellipta] Piedad Rosas linezolid Piedad Rosas prednisone Piedad Rosas Allergies Allergy/AdvReac Type Severity Reaction Status Date / Time No Known Allergies Allergy Verified 05/19/25 09:56 Discharge Plan Disposition Patient Disposition: [facility] Condition: Fair Discharge Order Discharge Orders: Discharge Order (Routine); Ordered 06/16/25 Ordered By: iPedad Rosas Follow up Plan Follow up with: Stephanie Espinoza APRN [Primary Care Provider, Medical] - 06/22/25 10:00 am Srini Gan MD [Physician, Pulmonology] - 06/24/25 1:00 pm Prescriptions/Medication Reconciliation: Danielito Bush 100-62.5-25 mcg Blister With Device 1 inh inhalation DAILY 30 Days Qty: 60 0RF prednisone 20 mg Tablet 40 mg PO DAILY 3 Days Qty: 6 0RF linezolid 600 mg tablet 600 mg PO Q12H 5 Days Qty: 10 0RF Continued cholecalciferol (vitamin D3) 1,250 mcg (50,000 unit) capsule 50,000 unit PO WEEKLY Patient Comments: TAKE 1 CAPSULE BY MOUTH ONCE WEEKLY nicotine 7 mg/24 hr patch 24 hour 1 patch transdermal Q24H Qty: 28 1RF alprazolam 1 mg tablet 1 mg PO BID gabapentin 800 mg tablet 800 mg PO TID Patient Comments: TAKE 1 TABLET BY MOUTH 3 TIMES A DAY carvedilol 25 mg Tablet 25 mg PO BID 30 Days Qty: 60 0RF bumetanide 1 mg tablet 1 mg PO DAILY Qty: 30 0RF sennosides-docusate sodium [Stimulant Laxative Plus] 8.6-50 mg Tablet 1 tab PO BID PRN (Reason: Constipation) 10 Days Qty: 20 0RF montelukast 10 mg tablet 10 mg PO HS losartan 100 mg tablet 100 mg PO DAILY Eliquis 5 mg Tablet 5 mg PO BID albuterol sulfate [Ventolin HFA] 90 mcg/actuation HFA aerosol inhaler 1 inh inhalation Q6H 5 Days Qty: 6.7 0RF magnesium gluconate 27 mg magnesium (500 mg) tablet 27 mg PO DAILY digoxin 125 mcg (0.125 mg) tablet 125 mcg PO DAILY Changed hydrocodone-acetaminophen 10-325 mg tablet 1 tab PO TIDP PRN (Reason: severe pain (scale score 7-10)) 5 Days Qty: 0 0RF Patient Comments: TAKE 1 TABLET BY MOUTH EVERY 6 HOURS Held azithromycin 250 mg tablet 250 mg PO MOWEFR Hold Instructions: until antibiotic course is complete Problem Reconciliation Problems Reviewed?: Yes Patient Discharge Instructions ACTIVITY: Continue current activity and Ambulate as tolerated DIET: continue same diet Patient Instructions: Chronic Obstructive Pulmonary Disease, DI for Hypoxia, Stop Light COPD Print Language: Italian Providers Primary Care Provider: Stephanie Espinoza Admit Provider: Teja Blair Attending Provider: Teja Blair
--- NOTE | 2025-06-16 14:53 | PC.NURSE ---
attempted to call report to [facility] in [facility] but nurse was not available at this time.
[2025-06-16 16:15] VITALS: PULSE 78; PULSE 80; O2SAT 94
== END 2025-06-16 16:56 ==
LOC: ER 06-14 00:07 → 2ND 06-14 00:24
PROVIDERS: Nurse Practitioner Acute Care; Admitting Provider Internal Medicine Adolescent Medicine; Emergency Provider Emergency Medicine; PCP Nurse Practitioner; Visit Provider Internal Medicine Adolescent Medicine
DX: J44.1 Chronic obstructive pulmonary disease with (acute) exacerbation (principal); J96.21 Acute and chronic respiratory failure with hypoxia; J96.22 Acute and chronic respiratory failure with hypercapnia; A41.9 Sepsis, unspecified organism; R65.20 Severe sepsis without septic shock; J96.02 Acute respiratory failure with hypercapnia; R50.9 Fever, unspecified; R60.0 Localized edema; R91.8 Other nonspecific abnormal finding of lung field; I48.0 Paroxysmal atrial fibrillation; I11.0 Hypertensive heart disease with heart failure; Z79.01 Long term (current) use of anticoagulants; E78.49 Other hyperlipidemia; I50.33 Acute on chronic diastolic (congestive) heart failure; R91.1 Solitary pulmonary nodule; F17.200 Nicotine dependence, unspecified, uncomplicated; D64.9 Anemia, unspecified; E78.5 Hyperlipidemia, unspecified; F17.210 Nicotine dependence, cigarettes, uncomplicated; Z56.0 Unemployment, unspecified; Z79.899 Other long term (current) drug therapy; Z99.81 Dependence on supplemental oxygen; I49.3 Ventricular premature depolarization; R00.0 Tachycardia, unspecified
CPT/HCPCS: 0223U; 36415; 36600; 71045; 80053; 81001; 82803; 83605; 83735; 83880; 84484; 85025; 85610; 87040; 87070; 87077; 87086; 87186; 87205; 89220; 93005; 94640; 94660; 97163; 97166; 97530; 99285; G0378; J0456; J0696; J1939; J2919; J3375; J3475; J7050

== ENCOUNTER 2025-06-24 12:53 | Outpatient (CLI) | payer MEDICARE, SELFPAY ==
[2025-06-24 13:08] LABS: ABG HCO3 39.3 mmhg (22.0-26.0); ABG PH 7.39 mmol/L (7.35-7.45); ABG TCO2 41.3 mmhg (23-27)
[2025-06-24 13:51] LABS: ABG PCO2 66.7 mmhg (35.0-45.0); ABG PO2 28.5 mmhg (80-100)
== END 2025-06-24 23:59 | disposition home or self-care (01) ==
LOC: LAB 12:53
PROVIDERS: PCP Nurse Practitioner; Visit Provider Internal Medicine Pulmonary Disease
DX: J96.21 Acute and chronic respiratory failure with hypoxia (principal); J96.22 Acute and chronic respiratory failure with hypercapnia
CPT/HCPCS: 36600; 82803